=== PATIENT | female | born 1945 | race Caucasian/White ===

== ENCOUNTER → 2016-10-25 | Outpatient (REF) | payer MEDICARE ==
[~2016-10-25] MED LIST: CHLO25TA3 PO; CORE25TA PO; FLUO20CA8 PO; GLIM4TAB PO; HUMA100I SC; MAG400TA PO; METF1000 PO; PRAV40TA2 PO; SPIR50TA2 PO; TRAN1TAB PO; ZANT150T PO
[2016-10-25 19:25] LABS: ALBUMIN 4.2 GM/DL (3.2-5.2); ALBUMIN/GLOBULIN RATIO 1.17 (1.00-1.93); BILIRUBIN,TOTAL 0.6 MG/DL (0.2-1.0); CALCIUM LEVEL 9.6 MG/DL (8.8-10.2); CREATININE FOR GFR 1.21 MG/DL (0.55-1.02); TOTAL PROTEIN 7.8 GM/DL (6.4-8.2)
== END ==
LOC: M LAB REF 16:30
PROVIDERS: ATTEND Family Medicine
DX: E78.4 Other hyperlipidemia (principal); E11.40 Type 2 diabetes mellitus with diabetic neuropathy, unspecified; E11.21 Type 2 diabetes mellitus with diabetic nephropathy

== ENCOUNTER → 2017-11-28 | Outpatient (REF) | payer MEDICARE ==
[2017-11-28 17:14] LABS: BASO # 0.1 10^3/uL (0.0-0.2); BASO % 0.7 % (0.0-1.0); EOS # 0.1 10^3/uL (0.0-0.50); HEMATOCRIT 37.3 % (36.0-47.0); HEMOGLOBIN 12.4 g/dl (12.0-15.5); IMMATURE GRANULOCYTE # 0.1 10^3/uL (0-0); IMMATURE GRANULOCYTE % 0.7 % (0-3.0); LYMPH # 1.7 10^3/uL (1.5-4.5); LYMPH % 23.9 % (24.0-44.0); MEAN CORPUSCULAR HGB CONC 33.2 g/dl (32.0-36.5); MEAN CORPUSCULAR VOLUME 90.1 fl (80.0-96.0); MONO # 0.5 10^3/uL (0.0-0.8); MONO % 6.9 % (0.0-5.0); NEUTROPHILS # 4.8 10^3/uL (1.8-7.7); NEUTROPHILS % 66.8 % (36.0-66.0); PLATELET COUNT, AUTOMATED 233 10^3/uL (150-450); RED BLOOD COUNT 4.14 10^6/uL (4.00-5.40); WHITE BLOOD COUNT 7.2 10^3/uL (4.0-10.0)
[2017-11-28 17:44] LABS: ALBUMIN 3.7 GM/DL (3.2-5.2); ALBUMIN/GLOBULIN RATIO 1.12 (1.00-1.93); ALKALINE PHOSPHATASE 52 U/L (45-117); ALT/SGPT 39 U/L (12-78); ANION GAP 12 MEQ/L (8-16); AST/SGOT 31 U/L (7-37); BILIRUBIN,TOTAL 0.4 MG/DL (0.2-1.0); BLOOD UREA NITROGEN 27 MG/DL (7-18); CALCIUM LEVEL 8.8 MG/DL (8.8-10.2); CARBON DIOXIDE LEVEL 23 MEQ/L (21-32); CHLORIDE LEVEL 103 MEQ/L (98-107); CHOLESTEROL LEVEL 100 MG/DL (<200); CHOLESTEROL RISK RATIO 2.857 (<5); CREATININE FOR GFR 1.18 MG/DL (0.55-1.30); GLOMERULAR FILTRATION RATE 48.2 (>39); GLUCOSE, FASTING 275 MG/DL (70-100); HDL CHOLESTEROL 35 MG/DL (>40); LDL CHOLESTEROL 25.6 MG/DL (<100); NON-HDL-C 65 MG/DL; POTASSIUM SERUM 4.4 MEQ/L (3.5-5.1); SODIUM LEVEL 138 MEQ/L (136-145); TRIGLYCERIDES LEVEL 197 MG/DL (<150)
== END ==
LOC: M LAB REF 16:32
DX: Z00.00 Encounter for general adult medical examination without abnormal findings (principal); E11.21 Type 2 diabetes mellitus with diabetic nephropathy; E11.319 Type 2 diabetes mellitus with unspecified diabetic retinopathy without macular edema; E78.4 Other hyperlipidemia; I10 Essential (primary) hypertension
CPT/HCPCS: 80053

== ENCOUNTER → 2018-03-20 | Outpatient (REF) | payer MEDICARE ==
[2018-03-20 17:02] LABS: ANION GAP 9 MEQ/L (8-16); BLOOD UREA NITROGEN 20 MG/DL (7-18); CALCIUM LEVEL 9.7 MG/DL (8.8-10.2); CARBON DIOXIDE LEVEL 29 MEQ/L (21-32); CHLORIDE LEVEL 98 MEQ/L (98-107); CREATININE FOR GFR 1.16 MG/DL (0.55-1.30); GLOMERULAR FILTRATION RATE 49.2 (>39); GLUCOSE, FASTING 242 MG/DL (70-100); SODIUM LEVEL 136 MEQ/L (136-145)
[2018-03-22 11:12] LABS: HEPATITIS C VIRUS ABY INDEX 0.1 INDEX (<0.8)
== END ==
LOC: M LAB REF 16:28
DX: I25.10 Atherosclerotic heart disease of native coronary artery without angina pectoris (principal); E11.21 Type 2 diabetes mellitus with diabetic nephropathy; E11.319 Type 2 diabetes mellitus with unspecified diabetic retinopathy without macular edema; I73.9 Peripheral vascular disease, unspecified
CPT/HCPCS: 86803

== ENCOUNTER → 2018-06-19 | Outpatient (REF) | payer MEDICARE | LOC: M LAB REF 16:41 | PROVIDERS: ATTEND Podiatrist Foot & Ankle Surgery | DX: L03.115 Cellulitis of right lower limb (principal); E11.621 Type 2 diabetes mellitus with foot ulcer ==

== ENCOUNTER 2019-06-01 10:30 | Inpatient (IN) | payer MEDICARE ==
[~2019-06-01] VITALS: Ht 157.5 cm; Wt 64.0 kg
[2019-06-01] MEDS ORDERED: INSUDET SC (10:44)
[2019-06-01] MEDS ORDERED: CEPH500C PO (10:44)
[2019-06-01] MEDS ORDERED: CLOP75TA2 PO (10:44)
[2019-06-01] MEDS ORDERED: GABA800T4 PO (10:44)
[2019-06-01] MEDS ORDERED: VICT18IN2 PO (10:44)
[2019-06-01] MEDS ORDERED: ATOR80TA59 PO (10:44)
[2019-06-01] MEDS ORDERED: ASPI81TA33 PO (10:44)
[2019-06-01] MEDS ORDERED: DULO1CAP6 PO (10:44)
--- NOTE | 2019-06-01 11:46 | REP ---
Clinical: Pain and swelling. Diabetes. Technique: AP, lateral, bilateral oblique views of the right foot. Findings: Age-related changes are appreciated along with evidence for peripheral vascular disease and soft tissue swelling overlying the fifth metatarsophalangeal joint. No subcutaneous emphysema. No obvious osseous involvement. No acute fracture or dislocation. Impression: Age-related degenerative changes and soft tissue swelling. Electronically Signed by Partha Palacios MD 06/01/2019 11:37 A
--- NOTE | 2019-06-01 12:09 | REP ---
Clinical: Right lower extremity pain and swelling . Technique: Zamora scale and color Doppler evaluation of the right lower extremity using linear high frequency transducer. Findings: Ultrasound examination of the right lower extremity deep venous structures from the common femoral vein to the popliteal vein demonstrates normal compressibility flow and wave patterns in response to respiration and augmentation. There is no evidence for deep venous thrombosis. Impression: No evidence for deep venous thrombosis. Electronically Signed by Partha Palacios MD 06/01/2019 12:00 P
[2019-06-01] MEDS ORDERED: METF10004 PO (12:13)
[2019-06-01] MEDS ORDERED: TRAN1TAB47 PO (12:13)
[2019-06-01] MEDS ORDERED: SPIR50TA4 PO (12:13)
[2019-06-01] MEDS ORDERED: CARV25TA PO (12:13)
[2019-06-01] MEDS ORDERED: ACETAMINOPHEN TAB 650MG DOSE (2X325MG) PO ONE (12:30)
[2019-06-01 12:35] LABS: BASO % 0.2 % (0.0-1.0); HEMATOCRIT 28.1 % (36.0-47.0); HEMOGLOBIN 8.7 g/dl (12.0-15.5); LYMPH # 1.2 10^3/uL (1.5-5.0); LYMPH % 6.4 % (24.0-44.0); MEAN CORPUSCULAR HEMOGLOBIN 28.7 pg (27.0-33.0); MEAN CORPUSCULAR VOLUME 92.7 fl (80.0-96.0); MONO # 1.5 10^3/uL (0.0-0.8); MONO % 7.7 % (0.0-5.0); NEUTROPHILS % 84.7 % (36.0-66.0); PLATELET COUNT, AUTOMATED 230 10^3/uL (150-450); RED BLOOD COUNT 3.03 10^6/uL (4.00-5.40); WHITE BLOOD COUNT 18.8 10^3/uL (4.0-10.0)
[2019-06-01 12:53] LABS: ERYTHROCYTE SEDIMENTATION RATE 64 mm/hr (0-30)
[2019-06-01 13:02] LABS: C REACTIVE PROTEIN QUANTITATIV 10.4 MG/DL (0.00-0.30); CALCIUM LEVEL 8.8 MG/DL (8.8-10.2); CREATININE FOR GFR 1.24 MG/DL (0.55-1.30); GLOMERULAR FILTRATION RATE 45.4 (>39); POTASSIUM SERUM 4.6 MEQ/L (3.5-5.1)
[2019-06-01] MEDS ORDERED: VANCOMYCIN HCL 1,250 MG in D5W 250 ML IV ONE (13:15)
[2019-06-01] MEDS ORDERED: DEXTROSE 50% 50 ML SYRINGE IV PRN ×2 (13:30→17:45)
[2019-06-01] MEDS ORDERED: GLUCOSE 4 GM CHEW TABLET PO PRN ×2 (13:30→17:45)
[2019-06-01] MEDS ORDERED: GLUCAGON FOR INJ 1 MG VIAL (J1610) SC PRN ×2 (13:30→17:45)
[2019-06-01] MEDS ORDERED: VANCOMYCIN HCL 750 MG, VIAL MATE ADAPTER 1 EACH in D5W 250 ML IV ONE ×2 (14:15→19:00)
[2019-06-01] MEDS ORDERED: VANCOMYCIN HCL 500 MG in D5W MINI-BAG PLUS 100 ML IV ONE ×2 (14:15→18:00)
[2019-06-01 14:16] LABS: HEMOGLOBIN A1c 6.1 %
[2019-06-01 16:25] VITALS: BP 129/65
--- NOTE | 2019-06-01 16:45 | REPVR ---
PROCEDURE INFORMATION: Exam: MR Right Lower Extremity Other Than Joint Without Contrast; Foot Exam date and time: 06/01/2019 4:18 PM Age: 73 years old Clinical indication: Difficulty in walking and edema and other: Ulcer hematoma to lateral distal foot/ 5th toe; Yes, it is localized; Additional info: Rle diabetic ulcer TECHNIQUE: Imaging protocol: MR of the Right lower extremity without contrast. Exam focused on the foot. COMPARISON: CR Foot, complete 06/01/2019 11:26 AM FINDINGS: The examination is somewhat limited by motion degradation and the lack of intravenous contrast. There is diffuse soft tissue swelling and subcutaneous edema with overlying skin thickening, compatible with cellulitis/myositis. There is a soft tissue ulceration along the lateral plantar surface of the 5th metatarsal head with a small amount of subjacent loculated fluid and phlegmonous change. No convincing organized fluid collection is identified to suggest abscess at this time. There is no soft tissue mass. There is mild thickening of the middle band of the plantar fascia in association with a small plantar calcaneal spur. No acute tendon or ligament injury is identified. There is subtle bone marrow edema in the fifth metatarsal head and proximal phalangeal base, which is predominantly evident on the fluid sensitive sequences and is therefore likely reactive. No convincing associated T1 hypointensity is appreciated at this time. Mild degenerative changes are noted. There is a small amount of loculated fluid in the tibiotalar and posterior subtalar joints. There are no erosive or destructive changes. No lytic or blastic lesion is seen. There is no significant effusion. IMPRESSION: 1. Limited noncontrast examination. 2. Cellulitis/myositis with a soft tissue ulceration along the lateral plantar surface of the 5th metatarsal head. 3. Probable reactive bone marrow edema in the 5th metatarsal head and proximal phalangeal base without convincing MR evidence of acute osteomyelitis at this time. Continued clinical and imaging surveillance is recommended. 4. Additional findings, as above. Electronically signed by: Marshal Hays On 06/01/2019 16:45:20 PM
[2019-06-01] MEDS ORDERED: NS 1,000 ML IV ONE (17:00)
[2019-06-01] MEDS ORDERED: PERCOCET 5MG/325MG TAB PO PRN (17:15)
[2019-06-01] MEDS ORDERED: MORPHINE 2 MG/ML 1ML VIAL (J2270) IV PRN (17:15)
[2019-06-01] MEDS ORDERED: MORPHINE 2 MG/ML 1ML VIAL (J2270) IV ONE (17:45)
[2019-06-01] MEDS: PIPERACILLIN/TAZOBACTAM SOD 3.375 GM in D5W MINI-BAG PLUS 50 ML IV SCH (18:10)
[2019-06-01] MEDS: HumaLOG INSULIN (NovoLOG) PER UNIT SC SCH ×2 (18:13→21:00)
--- NOTE | 2019-06-01 18:25 | CR ---
DATE OF CONSULTATION: 06/01/2019 REASON FOR CONSULTATION: Right foot infection. Dulce Gonsales is a pleasant 73-year-old female who presented to the emergency room with worsening infection to her right foot. She noticed this infection first on 05/30/2019. She had been seeing me for chronic ulceration on this site previously. She was seen at Urgent Care on Sunday and was given Keflex, which she took three doses of. She woke up earlier today and noted worsening redness with redness streaking up her leg. She went to the emergency room for further evaluation. PAST MEDICAL HISTORY: Significant for: 1. Diabetes with neuropathy. 2. Chronic kidney disease. 3. Hypertension. 4. Coronary artery disease with stenting. 5. Hyperlipidemia. 6. Anxiety. 7. Acid reflux. ALLERGIES: None. PAST SURGICAL HISTORY: Includes: 1. Stenting right lower extremity. 2. Cataracts. 3. Colonoscopies. 4. Cardiac catheterization. 5. Femoral popliteal bypass. SOCIAL HISTORY: Former smoker. Denies alcohol use. REVIEW OF SYSTEMS: Negative for nausea, vomiting, fever or chills. VITAL SIGNS: Are reviewed. Maximum temperature (T-max) is 99.3. LABORATORIES: Are reviewed. White blood cell count is 18.8. Erythrocyte sedimentation rate is 64. CRP is 10.4. Lactic acid is 21. Hemoglobin A1c is 6.1. LOWER EXTREMITY IMAGING STUDIES: Foot x-ray shows soft tissue swelling over the fifth metatarsal. No obvious bony erosion or soft tissue emphysema. Foot MRI shows soft tissue ulceration with edema around the fifth metatarsal head. No obvious fluid organization or obvious size of osteomyelitis. LOWER EXTREMITY EXAMINATION: On the right foot there is erythema and edema extending from the lateral fifth metatarsal head with some necrotic tissue. ASSESSMENT: A 73-year-old diabetic female with soft tissue ulcer and cellulitis. PLAN: Patient has been started on empiric antibiotics. Wound debridement was performed using #15 blade, excising necrotic soft tissue, including skin and subcutaneous tissue. A wound culture was taken. Start dressing changes, Hydrofera Blue and Optifoam, change daily. Will monitor.
--- NOTE | 2019-06-01 19:47 | HPE ---
DATE OF ADMISSION: 06/01/2019 CHIEF COMPLAINT: Right foot pain. HISTORY OF PRESENT ILLNESS: This is a 73-year-old female who presented to the emergency room with a 3-day history of pain, swelling, redness at the ulcer site on the right foot in the plantar aspect since Sunday. She initially noticed that the area was looking red and painful and then she noticed bluish discoloration on the lateral aspect of the ulcer, which then progressed on with more erythema throughout the dorsum of the foot. The patient complained of some chills without documented fever. She was seen at the urgent care in [place] and was given an antibiotic, which she says starts with the letter "C." Despite taking this for 2 days, the patient has had no improvement, which prompted her to come to the emergency room. She was unable to ambulate and bear weight on the right foot, has been using her walker. According to medical records, the patient was given Keflex 500 mg twice a day. She has completed 2 days of this. No fever. No purulent or serous drainage. The patient was seen by Dr. Wilde, human anatomy teacher, after Mame, about a month ago, status post debridement. She was due to see vascular surgery to do an ultrasound of the right leg for peripheral arterial disease evaluation with Dr. Guzman on 06/04/2019. The patient has continued all of her home medications. She has not taken any medications for pain, as she was instructed not to take any nonsteroidal antiinflammatory drugs (NSAIDS) in light of her chronic aspirin and Plavix given for stents that were placed on at [facility]. She has a total of nine coronary stents. In the emergency room, she was found to have a white count of 18.8, afebrile at 99.3, sed rate was 64, lactic acid of 2.1 and C-reactive protein of 10.4. Dr. Wilde was called by the emergency room, who recommended MRI of the foot, as well as intravenous vancomycin to be started. The hospitalist was called to admit for diabetic foot ulcer, most likely an arterial ulcer, for further management. PAST MEDICAL HISTORY: 1. Coronary artery disease, status post nine stents placed at [facility], last one was done on and the day after New Year's day. 2. Diabetes with chronic nephropathy. 3. Chronic kidney disease stage III. 4. Diabetic neuropathy. 5. Hypertension. 6. Hyperlipidemia. 7. Anxiety. 8. Chronic foot ulcer. 9. Reflux disease. 10. Peripheral arterial disease. ALLERGIES: No known drug allergies. PAST SURGICAL HISTORY: 1. BTL in 1975, LSO in 1980. 2. Coronary stent in April 2019, nine stents placed at [facility]. 3. Breast biopsy negative in 2009. The patient denies any stent to the right leg in 2007 and says that she had angioplasty and no stent was placed in the leg. 4. Cataract surgery in 2013. 5. Fem-pop bypass. FAMILY HISTORY: Mother at age 52 with diabetes, coronary artery disease. Brother at age 46. Brother with myocardial infarction at age 52. Father at age 59 with coronary artery disease and myocardial infarction. SOCIAL HISTORY: Retired [employer]. She lives alone. Daughter lives next door. Everything is on one floor. One step to get into the home. Denies any smoking currently, alcohol or recreational drug use. REVIEW OF SYSTEMS: The patient denies any fever. She did have some chills. No weight gain or weight loss. No nausea or vomiting. No diarrhea. No abdominal pain. No bright red blood per rectum, melena, black tarry stools or history of duodenal ulcers. She has a history of coronary artery disease but denies chest pain, pressure, tightness, paroxysmal nocturnal dyspnea, orthopnea, three pillow orthopnea. The patient denies dysuria, urgency, frequency. No changes in weight or appetite. No changes in vision. THe patient has had cataract surgery in the past. No ear discharge, tinnitus or vertigo. No ear pain. The patient has had increasing difficulty ambulating due to pain in the right foot. Otherwise, no weakness or paresthesias. She has chronic neuropathy in bilateral lower extremities. No anxiety or depression. Denies polydipsia or polyuria. Has a history of diabetes, glucose has been about 150s at home. All other review of systems negative, 10-point system has been negative aside from positive findings in history of present illness. PHYSICAL EXAMINATION: VITAL SIGNS: Temperature 99.3, pulse 87, respiratory rate 20, blood pressure 109/55, 98% on room air. GENERAL: The patient is awake, alert, oriented times three. Answering questions appropriately. No use of respiratory accessory muscles. Face is symmetric. Tongue is midline. NECK: Supple with full range of motion. No cervical lymphadenopathy or thyromegaly. LUNGS: Clear to auscultation. No wheezing, rales or rhonchi. HEART: S1, S2. Sinus rhythm. ABDOMEN: Soft, nontender, nondistended. Positive bowel sounds times four quadrants. EXTREMITIES: No cyanosis or clubbing. THe patient does have erythema along the lateral aspect of the dorsal foot. There is a 2 cm wide ulcer noted in the plantar aspect under the fifth toe. She has some tenderness and swelling into the mid foot, erythema and painful to touch. She does have palpable pulses, dorsalis pedis and posterior tibialis bilaterally. LABORATORY DATA: White count 18.8, hemoglobin 8.7, hematocrit 28.1, platelet count 230. Sodium 132, potassium 4.6, chloride 99, bicarbonate 26, BUN 26, creatinine 1.24, glucose 223, A1/c of 6.1, lactic acid of 2.1, C-reactive protein of 10.4. Blood culture pending. Foot MRI on 06/01/2019, limited, noncontrast. Cellulitis, myositis with soft tissue ulceration along the lateral plantar surface of the fifth metatarsal head, probable reactive bone marrow edema in the fifth metatarsal head and proximal phalangeal base without convincing evidence of acute osteomyelitis at this time. Vascular ultrasound on 06/01/2019 showed no evidence of deep vein thrombosis (DVT). X-ray of the right foot showed age related degenerative changes and soft tissue swelling. ASSESSMENT AND PLAN: This is a 73-year-old female, diabetic with chronic kidney disease stage III, neuropathy, nephropathy, hypertension, coronary artery disease with nine coronary stents placed in April and on chronic aspirin and Plavix, hyperlipidemia, anxiety, reflux, chronic diabetic foot ulcer, presents with worsening pain for the past 3 days, erythema, difficulty ambulating. The patient is admitted for cellulitis, rule out osteomyelitis. IMPRESSION: 1. Right fifth metatarsal head plantar ulcer with small amount of loculation and fremitus. No convincing evidence of abscess or osteomyelitis. No obvious drainage. The patient has been given vancomycin for gram-negative infection, also given Zosyn, deescalate antibiotics accordingly. White count is 18,000, supportive care for now with 1 liter of intravenous fluid due to significant lactic acidosis. Affected extremity to be elevated and Dr. Majak of podiatry for evaluation and possible debridement. 2. Peripheral arterial disease. The patient has been referred to Dr. Guzman as an outpatient. She may be consulted during this admission to check for circulation in order to improve circulation to lower extremity for better healing. The patient was due to have an ultrasound done of the right lower extremity on 06/04/2019. 3. Type 2 diabetes. She may be resumed on consistent carbohydrate diet. She may be resumed on her home dose of Levemir, sliding scale per protocol before food and nightly per [facility] protocol. A1/c is adequate at 6.1, the patient appears to be well controlled. 4. Hypertension. She may be resumed on her home dose of Coreg. 5. History of coronary artery disease, recent stent in April 2019 with nine coronary stents placed. She needs to be continued on Plavix 75 mg daily. We will continue on aspirin as well for now and atorvastatin. 6. Hyperlipidemia. Continue on Lipitor. 7. Reflux disease. 8. Deep vein thrombosis (DVT) prophylaxis. The patient may be given compression stockings. MTDD
[2019-06-01] MEDS ORDERED: SPIRONOLACTONE 50 MG TAB PO SCH (21:00)
[2019-06-01] MEDS ORDERED: CEFTAROLINE FOSAMIL 400 MG in D5W MINI-BAG PLUS 50 ML IV SCH (21:00)
[2019-06-01] MEDS: GABAPENTIN 400 MG CAP PO SCH (21:30)
[2019-06-01] MEDS: ATORVASTATIN 20 MG TAB PO SCH (21:30)
[2019-06-01] MEDS: LEVEMIR (INSULIN DETEMIR) 1 UNITS/0.01ML SC SCH (21:31)
[2019-06-01] MEDS: CARVedilol 12.5 MG TAB PO SCH (21:32)
[2019-06-01 22:00] VITALS: BP 138/63
[2019-06-01] MEDS: ACETAMINOPHEN TAB 650MG DOSE (2X325MG) PO PRN (23:29)
[2019-06-02] MEDS: PIPERACILLIN/TAZOBACTAM SOD 3.375 GM in D5W MINI-BAG PLUS 50 ML IV SCH ×3 (00:30→18:29)
[2019-06-02 06:00] VITALS: BP 124/58
[2019-06-02 06:17] LABS: BASO % 0.2 % (0.0-1.0); EOS # 0.1 10^3/uL (0.0-0.5); EOS % 0.7 % (0.0-3.0); HEMATOCRIT 24.9 % (36.0-47.0); HEMOGLOBIN 7.6 g/dl (12.0-15.5); LYMPH # 1.7 10^3/uL (1.5-5.0); LYMPH % 12.9 % (24.0-44.0); MEAN CORPUSCULAR HEMOGLOBIN 27.9 pg (27.0-33.0); MEAN CORPUSCULAR HGB CONC 30.5 g/dl (32.0-36.5); MEAN CORPUSCULAR VOLUME 91.5 fl (80.0-96.0); MONO # 1.1 10^3/uL (0.0-0.8); MONO % 8.9 % (0.0-5.0); NEUTROPHILS # 9.8 10^3/uL (1.5-8.5); NEUTROPHILS % 76.7 % (36.0-66.0); PLATELET COUNT, AUTOMATED 195 10^3/uL (150-450); RED BLOOD COUNT 2.72 10^6/uL (4.00-5.40); WHITE BLOOD COUNT 12.8 10^3/uL (4.0-10.0)
[2019-06-02 06:34] LABS: CALCIUM LEVEL 8.4 MG/DL (8.8-10.2); CREATININE FOR GFR 1.14 MG/DL (0.55-1.30); POTASSIUM SERUM 3.5 MEQ/L (3.5-5.1)
[2019-06-02] MEDS ORDERED: CLOPIDOGREL 75 MG TAB PO SCH (09:00)
[2019-06-02] MEDS ORDERED: PREVNAR 13 VACCINE SYRINGE (CPT CODE:90670) IM ONE (09:00)
[2019-06-02] MEDS ORDERED: ASPIRIN 81 MG ENTERIC TAB PO SCH (09:00)
[2019-06-02] MEDS ORDERED: trandolapriL 1 MG TAB PO SCH (09:00)
[2019-06-02] MEDS: HumaLOG INSULIN (NovoLOG) PER UNIT SC SCH ×4 (09:12→22:32)
[2019-06-02] MEDS: DULoxetine 30 MG CAP (CYMBALTA) PO SCH (09:13)
[2019-06-02] MEDS: ASPIRIN 81 MG ENTERIC TAB PO SCH (09:14)
[2019-06-02] MEDS: CLOPIDOGREL 75 MG TAB PO SCH (09:15)
[2019-06-02] MEDS: CARVedilol 12.5 MG TAB PO SCH ×2 (09:16→23:22)
--- NOTE | 2019-06-02 09:20 | IPNPDOC ---
Subjective Date Seen The patient was seen on 06/02/19. Subjective Chief Complaint/HPI Pt this morning reports less pain in her right foot, she thinks the swelling is slightly better as well. She has no new concerns this morning. General: Denies: Fatigue Constitutional: Reports: Fever; Denies: Chills ENT: Denies: Head Aches Pulmonary: Denies: Dyspnea, Cough Cardiovascular: Denies: Chest Pain, Palpitations Gastrointestinal: Denies: Nausea, Vomiting, Abdominal Pain, Diarrhea Musculoskeletal: Denies: Neck Pain Neurological: Denies: Weakness Psych: Reports: Mood Normal Objective Physical Examination General Exam: Positive: Alert, No Acute Distress Eye Exam: Positive: Conjunctiva & lids normal ENT Exam: Positive: Mucous membr. moist/pink Chest Exam: Positive: Clear to auscultation, Normal air movement Heart Exam: Positive: Rate Normal, Normal S1, Normal S2 Abdomen Exam: Positive: Normal bowel sounds, Soft; Negative: Tenderness Skin Exam: Positive: Other skin issue (swelling erythema and eccymosis of the right foot with bloody drainage on R lateral foot bandage. + swelling) Neuro Exam: Positive: Normal Speech Psych Exam: Positive: Mood NL Assessment /Plan Problems (1) CAD (coronary artery disease) Permanent Comment: - NSTEMI [id number] PCI - LAN x4 [id number] RCA; PTCA posterolateral branch of RCA, [id number] - LAN [id number] LAD [id number] - LAN mid RCA 04/24/2019 - LAN x2 dista RCA [id number]; tesidual distal 60% stenosis postintervention - Hossein atuioventflcular bianch; 60% residual stenosis Last Edited By: Kiko Richey MD on Jun 02, 2019 16:58 Status: Chronic Response to Treatment: Stable Problem Specific Plan: Monitor Clinically Problem Text: 04/24/2019 sp NQWMI and 9!!! LAN to RCA, LCA; therefore, hesitant to hold asa/clopid and no ho melana/hematechezia/dyspepsia (2) Anemia Status: Acute Problem Text: 06/02 7.6-on asa/clopid held, no DVT AC; given stable MCV concerning for acute loss and given CAD, tx 1u PRBC; change H2B to PPI BID (ho CIPRIANO, but none in last ~6-8W)-states "fatigued" since on asa/clopid c SBP 95-105 06/01 8.7, MCV 93 04/22/19 11.9 11/28/17 hgb 12.4, 90 06/2014 [id number], 5 mm cecal polyp (3) Diabetic foot ulcer associated with type 2 diabetes mellitus Status: Acute Response to Treatment: Stable Discussed With: Nurse, Patient Problem Specific Plan: Monitor Clinically, Repeat Labs Problem Text: D2 Vanco/Zosyn, await wound culture results. Pod will cont to follow. Tmax 100.4 overnight, [place] [id number] [place] [id number] 06/01 BCX2 NG 06/01 WCX P 06/19/18 R foot WCX heavy MSSA 06/01 MRI: 1. Limited noncontrast examination. 2. Cellulitis/myositis with a soft tissue ulceration along the lateral plantar surface of the 5th metatarsal head. 3. Probable reactive bone marrow edema in the 5th metatarsal head and proximal phalangeal base without convincing MR evidence of acute osteomyelitis at this time. Continued clinical and imaging surveillance is recommended. 4. Additional findings, as above. (4) Hypertension Status: Chronic Response to Treatment: Stable Problem Specific Plan: Monitor Clinically Problem Text: HD: carve 12.5 BID, trandol 1 qAM, melisa 50 QHS 06/02 SBP 100 c decreasing hgb; held melisa, trandol (5) DM2 (diabetes mellitus, type 2) Status: Chronic Response to Treatment: Stable Problem Specific Plan: Monitor Clinically Problem Text: A1c 6.1% checked on admission, Cont with long acting 70 units, SSI. Plan/VTE VTE Prophylaxis Ordered?: Yes VS, I&O, 24H, Fishbone Vital Signs/I&O Vital Signs Date Time Temp Pulse Resp B/P (MAP) Pulse Ox O2 Delivery O2 Flow Rate FiO2 06/02/19 06:00 98.0 87 16 124/58 (80) 93 Room Air I&O- Last 24 Hours up to 6 AM 06/02/19 06:00 Intake Total 1350 ml Output Total 0 ml Balance 1350 ml Laboratory Data 24H LABS Laboratory Tests 2 06/01/19 11:19: Immature Granulocyte % (Auto) 1.0, Neutrophils (%) (Auto) 84.7H, Lymphocytes (%) (Auto) 6.4L, Monocytes (%) (Auto) 7.7H, Eosinophils (%) (Auto) 0.0, Basophils (%) (Auto) 0.2, Neutrophils # (Auto) 16.0H, Lymphocytes # (Auto) 1.2L, Monocytes # (Auto) 1.5H, Eosinophils # (Auto) 0.0, Basophils # (Auto) 0.0, Nucleated Red Blood Cells % (auto) 0.0, Erythrocyte Sedimentation Rate 64H, Anion Gap 8, Glomerular Filtration Rate 45.4, Calcium Level 8.8, C-Reactive Protein, Quantitative 10.40H 06/01/19 13:43: Estimated Mean Plasma Glucose 128H, Hemoglobin A1c 6.1, Lactic Acid Level 2.1*H 06/01/19 16:58: Bedside Glucose (Misc Panel) 140H 06/01/19 17:06: Methicillin-Resist S.aureus DNA PCR NOT DETECTED 06/01/19 18:21: Lactic Acid Followup at 4 Hours 1.9 06/01/19 20:36: Bedside Glucose (Misc Panel) 214H 06/02/19 05:55: Immature Granulocyte % (Auto) 0.6, Neutrophils (%) (Auto) 76.7H, Lymphocytes (%) (Auto) 12.9L, Monocytes (%) (Auto) 8.9H, Eosinophils (%) (Auto) 0.7, Basophils (%) (Auto) 0.2, Neutrophils # (Auto) 9.8H, Lymphocytes # (Auto) 1.7, Monocytes # (Auto) 1.1H, Eosinophils # (Auto) 0.1, Basophils # (Auto) 0.0, Nucleated Red Blood Cells % (auto) 0.0, Anion Gap 7L, Glomerular Filtration Rate 50.0, Calcium Level 8.4L CBC/BMP Laboratory Tests 06/01/19 11:19 06/02/19 05:55 Microbiology Microbiology 06/01/19 Gram Stain, Received Pending 06/01/19 Wound Culture, Received Pending 06/01/19 Blood Culture, Received Pending 06/01/19 Blood Culture, Received Pending SHAMA ZAIDI PA-C Jun 02, 2019 09:20 Kiko Richey M.D. Jun 02, 2019 16:29
[2019-06-02] MEDS: VANCOMYCIN HCL 1,000 MG, VIAL MATE ADAPTER 1 EACH in D5W 250 ML IV SCH (10:45)
--- NOTE | 2019-06-02 11:58 | IPN ---
DATE: 06/02/2019 Seen and examined. Denies overnight complaints other than fever. States that was quickly reduced with Tylenol. Vitals are reviewed. Maximum temperature (Tmax) listed as 100.4. Labs were reviewed. White cell count is improved 12.8. Culture results are pending. Lower Extremity Examination: Erythema and edema are somewhat improved. Wound is inspected. There is trace purulence. No significant necrosis to the wound. ASSESSMENT: 73-year-old, diabetic female with right foot diabetic ulceration and cellulitis. PLAN: Vashe dressing changes. Await culture results. Continue empiric antibiotics. Will follow.
[2019-06-02 14:00] VITALS: BP 120/65
[2019-06-02] MEDS: NS 1,000 ML IV SCH (16:50)
[2019-06-02 17:15] LABS: BASO % 0.2 % (0.0-1.0); EOS # 0.1 10^3/uL (0.0-0.5); EOS % 0.4 % (0.0-3.0); HEMATOCRIT 25.3 % (36.0-47.0); HEMOGLOBIN 7.9 g/dl (12.0-15.5); LYMPH # 1.1 10^3/uL (1.5-5.0); LYMPH % 8.7 % (24.0-44.0); MEAN CORPUSCULAR HEMOGLOBIN 28.5 pg (27.0-33.0); MEAN CORPUSCULAR HGB CONC 31.2 g/dl (32.0-36.5); MEAN CORPUSCULAR VOLUME 91.3 fl (80.0-96.0); MONO # 0.9 10^3/uL (0.0-0.8); MONO % 6.8 % (0.0-5.0); NEUTROPHILS # 10.6 10^3/uL (1.5-8.5); NEUTROPHILS % 83.3 % (36.0-66.0); PLATELET COUNT, AUTOMATED 211 10^3/uL (150-450); RED BLOOD COUNT 2.77 10^6/uL (4.00-5.40); WHITE BLOOD COUNT 12.7 10^3/uL (4.0-10.0)
[2019-06-02 17:40] LABS: PERCENT SATURATION 6.9 % (13.2-45.0)
[2019-06-02 22:00] VITALS: BP 110/56
[2019-06-02] MEDS: PANTOPRAZOLE 40MG TAB (PROTONIX) PO SCH (22:16)
[2019-06-02] MEDS: ATORVASTATIN 20 MG TAB PO SCH (22:16)
[2019-06-02] MEDS: GABAPENTIN 400 MG CAP PO SCH (22:16)
[2019-06-02] MEDS: ACETAMINOPHEN TAB 650MG DOSE (2X325MG) PO PRN (22:17)
[2019-06-02] MEDS: LEVEMIR (INSULIN DETEMIR) 1 UNITS/0.01ML SC SCH (22:32)
[2019-06-02 23:54] VITALS: BP 136/53
[2019-06-03] VITALS (10 sets, daily range): BP systolic 112–179; BP diastolic 49–70
[2019-06-03] MEDS: VANCOMYCIN HCL 1,000 MG, VIAL MATE ADAPTER 1 EACH in D5W 250 ML IV SCH (03:29)
[2019-06-03] MEDS: PIPERACILLIN/TAZOBACTAM SOD 3.375 GM in D5W MINI-BAG PLUS 50 ML IV SCH ×2 (04:52→09:45)
[2019-06-03 06:02] LABS: BASO % 0.4 % (0.0-1.0); EOS # 0.2 10^3/uL (0.0-0.5); EOS % 1.4 % (0.0-3.0); HEMATOCRIT 27.8 % (36.0-47.0); LYMPH # 1.8 10^3/uL (1.5-5.0); LYMPH % 16.3 % (24.0-44.0); MEAN CORPUSCULAR HEMOGLOBIN 28.7 pg (27.0-33.0); MEAN CORPUSCULAR HGB CONC 32.4 g/dl (32.0-36.5); MEAN CORPUSCULAR VOLUME 88.5 fl (80.0-96.0); MONO # 0.8 10^3/uL (0.0-0.8); MONO % 7.4 % (0.0-5.0); NEUTROPHILS % 73.9 % (36.0-66.0); PLATELET COUNT, AUTOMATED 194 10^3/uL (150-450); RED BLOOD COUNT 3.14 10^6/uL (4.00-5.40); WHITE BLOOD COUNT 10.9 10^3/uL (4.0-10.0)
[2019-06-03 06:17] LABS: BLOOD UREA NITROGEN 14 MG/DL (7-18); CALCIUM LEVEL 8.4 MG/DL (8.8-10.2); CARBON DIOXIDE LEVEL 24 MEQ/L (21-32); CHLORIDE LEVEL 105 MEQ/L (98-107); CREATININE FOR GFR 0.93 MG/DL (0.55-1.30); GLOMERULAR FILTRATION RATE > 60.0 (>39); GLUCOSE, FASTING 191 MG/DL (70-100); POTASSIUM SERUM 3.5 MEQ/L (3.5-5.1); SODIUM LEVEL 138 MEQ/L (136-145)
[2019-06-03] MEDS: CARVedilol 12.5 MG TAB PO SCH ×2 (09:45→21:48)
[2019-06-03] MEDS: PANTOPRAZOLE 40MG TAB (PROTONIX) PO SCH ×2 (09:45→21:47)
[2019-06-03] MEDS: CLOPIDOGREL 75 MG TAB PO SCH (09:45)
[2019-06-03] MEDS: DULoxetine 30 MG CAP (CYMBALTA) PO SCH (09:45)
[2019-06-03] MEDS: ASPIRIN 81 MG ENTERIC TAB PO SCH (09:46)
[2019-06-03] MEDS: HumaLOG INSULIN (NovoLOG) PER UNIT SC SCH ×4 (10:00→21:46)
--- NOTE | 2019-06-03 10:43 | IPNPDOC ---
Subjective Date Seen The patient was seen on 06/03/19. Subjective Chief Complaint/HPI Pt this morning without new concerns. Her daughter is at bedside, they fell there is a lot less swelling in her R foot. She denies signs or symptoms of bleeding. General: Denies: Fatigue Constitutional: Denies: Chills, Fever Pulmonary: Denies: Dyspnea, Cough Cardiovascular: Denies: Chest Pain, Palpitations Gastrointestinal: Denies: Nausea, Vomiting Neurological: Reports: Weakness Psych: Reports: Mood Normal Objective Physical Examination General Exam: Positive: Alert, No Acute Distress Eye Exam: Positive: Conjunctiva & lids normal ENT Exam: Positive: Mucous membr. moist/pink Chest Exam: Positive: Clear to auscultation, Normal air movement Heart Exam: Positive: Rate Normal, Normal S1, Normal S2 Abdomen Exam: Positive: Normal bowel sounds, Soft; Negative: Tenderness Skin Exam: Positive: Other skin issue (swelling erythema and eccymosis of the right foot with bloody drainage on R lateral foot bandage. + swelling, improved c/w yesterday) Neuro Exam: Positive: Normal Speech Psych Exam: Positive: Mood NL Assessment /Plan Problems (1) Diabetic foot ulcer associated with type 2 diabetes mellitus Status: Acute Response to Treatment: Stable Discussed With: Nurse, Patient Problem Specific Plan: Monitor Clinically, Repeat Labs Problem Text: 06/03 - DC Zosyn/Vanco, change to IV Doxy, likely can start PO tomorrow, WBC cont to improve, CRP increase slightly, will repeat tomorrow. 06/02 D2 Vanco/Zosyn, await wound culture results. Pod will cont to follow. Tmax 100.4 overnight, [place] [address] [place] [address] 06/01 BCX2 NG 06/01 WCX P 06/19/18 R foot WCX heavy MSSA 06/01 MRI: 1. Limited noncontrast examination. 2. Cellulitis/myositis with a soft tissue ulceration along the lateral plantar surface of the 5th metatarsal head. 3. Probable reactive bone marrow edema in the 5th metatarsal head and proximal phalangeal base without convincing MR evidence of acute osteomyelitis at this time. Continued clinical and imaging surveillance is recommended. 4. Additional findings, as above. (2) CAD (coronary artery disease) Permanent Comment: - NSTEMI [id number] PCI - LAN x4 [id number] RCA; PTCA posterolateral branch of RCA, [id number] - LAN [id number] LAD [id number] - LAN mid RCA 04/24/2019 - LAN x2 dista RCA [id number]; tesidual distal 60% stenosis postintervention - Hossein atuioventflcular bianch; 60% residual stenosis Last Edited By: Kiko Richey MD on Jun 02, 2019 16:58 Status: Chronic Response to Treatment: Stable Problem Specific Plan: Monitor Clinically Problem Text: 04/24/2019 sp NQWMI and 9!!! LAN to RCA, LCA; therefore, hesitant to hold asa/clopid and no ho melana/hematechezia/dyspepsia (3) Anemia Status: Acute Problem Text: 06/03 Hgb 9.0 after 2 units pRBCs yesterday, monitor, OB ordered. Cont with BID PPI. 06/02 7.6-on asa/clopid held, no DVT AC; given stable MCV concerning for acute loss and given CAD, tx 1u PRBC; change H2B to PPI BID (ho CIPRIANO, but none in last ~6-8W)-states "fatigued" since on asa/clopid c SBP 95-105 06/01 8.7, MCV 93 04/22/19 11.9 11/28/17 hgb 12.4, 90 06/2014 myzof-Fxiqvvz-fcupi, 5 mm cecal polyp (4) Hypertension Status: Chronic Response to Treatment: Stable Problem Specific Plan: Monitor Clinically Problem Text: HD: carve 12.5 BID, trandol 1 qAM, melisa 50 QHS 06/02 SBP 100 c decreasing hgb; held melisa, trandol (5) DM2 (diabetes mellitus, type 2) Status: Chronic Response to Treatment: Stable Problem Specific Plan: Monitor Clinically Problem Text: A1c 6.1% checked on admission, Cont with long acting 70 units, SSI. Plan/VTE VTE Prophylaxis Ordered?: Yes VS, I&O, 24H, Fishbone Vital Signs/I&O Vital Signs Date Time Temp Pulse Resp B/P (MAP) Pulse Ox O2 Delivery O2 Flow Rate FiO2 06/03/19 09:45 112/49 06/03/19 06:00 97.6 72 18 96 Room Air I&O- Last 24 Hours up to 6 AM 06/03/19 06:00 Intake Total 1941 ml Output Total 4225 ml Balance -2284 ml Laboratory Data 24H LABS Laboratory Tests 2 06/02/19 12:13: Bedside Glucose (Misc Panel) 308H 06/02/19 16:50: Bedside Glucose (Misc Panel) 246H 06/02/19 17:00: Immature Granulocyte % (Auto) 0.6, Neutrophils (%) (Auto) 83.3H, Lymphocytes (%) (Auto) 8.7L, Monocytes (%) (Auto) 6.8H, Eosinophils (%) (Auto) 0.4, Basophils (%) (Auto) 0.2, Neutrophils # (Auto) 10.6H, Lymphocytes # (Auto) 1.1L, Monocytes # (Auto) 0.9H, Eosinophils # (Auto) 0.1, Basophils # (Auto) 0.0, Reticulocyte # (auto) 57.1, Nucleated Red Blood Cells % (auto) 0.0, Percent Reticulocyte Count 2.1H, Reticulocyte Hemoglobin Equivalent 27.4, Iron Level 18L, Total Iron Binding Capacity 262, Transferrin % Saturation 6.9L, Vitamin B12 Level 277, Thyroid Stimulating Hormone (TSH) 2.070 06/02/19 21:00: Bedside Glucose (Misc Panel) 290H 06/03/19 05:37: Immature Granulocyte % (Auto) 0.6, Neutrophils (%) (Auto) 73.9H, Lymphocytes (%) (Auto) 16.3L, Monocytes (%) (Auto) 7.4H, Eosinophils (%) (Auto) 1.4, Basophils (%) (Auto) 0.4, Neutrophils # (Auto) 8.0, Lymphocytes # (Auto) 1.8, Monocytes # (Auto) 0.8, Eosinophils # (Auto) 0.2, Basophils # (Auto) 0.0, Nucleated Red Blood Cells % (auto) 0.0, Anion Gap 9, Glomerular Filtration Rate > 60.0, Calcium Level 8.4L, C-Reactive Protein, Quantitative 13.60H CBC/BMP Laboratory Tests 06/02/19 17:00 06/03/19 05:37 Microbiology Microbiology 06/01/19 Gram Stain - Final, Complete 06/01/19 Wound Culture - Final, Complete Staph.aureus Methicillin Resis 06/01/19 Blood Culture - Preliminary, Resulted No growth after 24 hours . All specim... 2/9/20 Blood Culture - Preliminary, Resulted No growth after 24 hours . All specim... SHAMA ZAIDI PA-C Jun 03, 2019 10:43
--- NOTE | 2019-06-03 12:39 | IPN ---
DATE OF SERVICE: 06/03/2019 The patient has been examined. Denies overnight complaints. She was given a unit of blood last night. Vitals are review. She has been afebrile. Labs are reviewed. White blood cell count today is 10.9. CRP is elevated at 13.6. Hemoglobin is improved from 7.9 to 9. Culture results are reviewed. Once grew methicillin resistant Staphylococcus aureus sensitive to tetracycline, clindamycin, Linezolid. LOWER EXTREMITY EXAMINATION: Erythema and edema is somewhat improved. There remains some scant purulent drainage with firm expression surrounding the ulcer itself. ASSESSMENT: 73-year-old diabetic female with right foot ulceration infection. Continue Vashe dressings. Okay to discharge likely tomorrow on oral doxycycline barring any further abnormalities and blood work. She is to followup with me on Sunday.
[2019-06-03] MEDS: DOXYCYCLINE HYCLATE 100 MG in D5W MINI-BAG PLUS 100 ML IV SCH ×2 (12:57→23:09)
[2019-06-03] MEDS: NS 1,000 ML IV SCH (17:31)
[2019-06-03] MEDS: LEVEMIR (INSULIN DETEMIR) 1 UNITS/0.01ML SC SCH (21:47)
[2019-06-03] MEDS: ATORVASTATIN 20 MG TAB PO SCH (21:47)
[2019-06-03] MEDS: GABAPENTIN 400 MG CAP PO SCH (21:48)
[2019-06-04 00:15] VITALS: BP 142/80
[2019-06-04 05:55] LABS: BASO % 0.3 % (0.0-1.0); EOS # 0.2 10^3/uL (0.0-0.5); EOS % 1.7 % (0.0-3.0); HEMATOCRIT 30.1 % (36.0-47.0); HEMOGLOBIN 9.7 g/dl (12.0-15.5); LYMPH # 1.5 10^3/uL (1.5-5.0); LYMPH % 17.3 % (24.0-44.0); MEAN CORPUSCULAR HEMOGLOBIN 28.4 pg (27.0-33.0); MEAN CORPUSCULAR HGB CONC 32.2 g/dl (32.0-36.5); MONO # 0.8 10^3/uL (0.0-0.8); MONO % 8.6 % (0.0-5.0); NEUTROPHILS # 6.2 10^3/uL (1.5-8.5); NEUTROPHILS % 71.5 % (36.0-66.0); PLATELET COUNT, AUTOMATED 242 10^3/uL (150-450); RED BLOOD COUNT 3.42 10^6/uL (4.00-5.40); WHITE BLOOD COUNT 8.7 10^3/uL (4.0-10.0)
[2019-06-04 06:00] VITALS: BP 130/58
[2019-06-04 06:11] LABS: BLOOD UREA NITROGEN 13 MG/DL (7-18); CALCIUM LEVEL 8.4 MG/DL (8.8-10.2); CARBON DIOXIDE LEVEL 27 MEQ/L (21-32); CHLORIDE LEVEL 104 MEQ/L (98-107); CREATININE FOR GFR 0.84 MG/DL (0.55-1.30); GLOMERULAR FILTRATION RATE > 60.0 (>39); GLUCOSE, FASTING 82 MG/DL (70-100); POTASSIUM SERUM 3.6 MEQ/L (3.5-5.1); SODIUM LEVEL 138 MEQ/L (136-145)
[2019-06-04] MEDS: HumaLOG INSULIN (NovoLOG) PER UNIT SC SCH (07:30)
[2019-06-04] MEDS: ASPIRIN 81 MG ENTERIC TAB PO SCH (08:26)
[2019-06-04 08:27] VITALS: BP 130/58
[2019-06-04] MEDS: DULoxetine 30 MG CAP (CYMBALTA) PO SCH (08:27)
[2019-06-04] MEDS: PANTOPRAZOLE 40MG TAB (PROTONIX) PO SCH (08:27)
[2019-06-04] MEDS: CLOPIDOGREL 75 MG TAB PO SCH (08:27)
[2019-06-04] MEDS: CARVedilol 12.5 MG TAB PO SCH (08:27)
[2019-06-04] MEDS ORDERED: BACI1CAP PO (09:16)
[2019-06-04] MEDS ORDERED: PANT40TA3 PO (09:16)
[2019-06-04] MEDS ORDERED: DOXY100C PO (09:16)
--- NOTE | 2019-06-04 15:38 | DSES ---
DATE OF ADMISSION: 06/01/2019 DATE OF DISCHARGE: 06/04/2019 PRIMARY CARE PROVIDER : MYRIAM Serrato ATTENDING PHYSICIAN: Dr. Jeremie Bojorquez CONSULTANTS: Dr. Nikolas Wilde HISTORY OF PRESENT ILLNESS: This is a 73-year-old female who presented to [facility] emergency department for complaints of a 3-day history of pain, swelling, redness at her ulcer site on her right foot in the plantar aspect. The area was quite red and painful with discoloration to the lateral aspect of the ulcer that had progressed throughout the dorsum of the foot. The patient failed on outpatient treatment through an urgent care in [place]. She was given Keflex 500 mg twice a day. The patient was subsequently admitted to family medicine service for management of her right 5th metatarsal head plantar ulcer with loculation and fremitus. HOSPITAL COURSE: Dr. Nikolas Wilde was consulted. The patient was placed on empiric antibiotics. Wound culture was obtained. Wound was debrided by Dr. Wilde and dressing changes were started. The patient tolerated Zosyn and vancomycin intravenously until treatment was changed to targeted for methicillin resistant Staphylococcus aureus (MRSA) with sensitivity to tetracycline. She was placed on Vibramycin intravenously and has tolerated that well. The patient's C-reactive, as well as her white blood count have continued to trend down. The patient has remained afebrile. The patient passed physical therapy (PT). Per Dr. Wilde's recent note, she is to continue with Vashe dressings. The patient did have some significant anemia with negative stool for occult blood. She was given 1 unit of packed red cells via transfusion with improvement of her hemoglobin levels, most recent hemoglobin is 9.7. ASSESSMENT: 1. Methicillin resistant Staphylococcus aureus (MRSA) infection. 2. Ulceration of the right 5th metatarsal head. 3. Anemia. 4. Diabetes. 5. Coronary artery disease. 6. Hypertension. PLAN: The patient will be discharged to home. Diet is carbohydrate consistent, 2-gram sodium diet. Activity is as tolerated. MEDICATIONS: - probiotic one capsule with meals three times a day - doxycycline 100 mg by mouth twice a day - pantoprazole sodium 40 mg by mouth twice a day - aspirin enteric coated 81 mg one daily - atorvastatin 80 mg one by mouth at night - carvedilol 25 mg by mouth twice a day - clopidogrel bisulfate 75 mg by mouth daily - Cymbalta 60 mg by mouth daily - gabapentin 800 mg by mouth at night - Levemir 70 units subcutaneously at night - Victoza 1.8 mg by mouth daily - metformin 500 mg by mouth twice a day - spironolactone 50 mg by mouth at night The patient's trandolapril was held secondary to some hypotension while she was in the facility. We will recheck her pressures at her primary care office within the next week. THe patient will followup with primary care provider in 1 week. She will followup with Dr. Wilde on 06/06/2019 as already scheduled. The patient and her daughter verbalize understanding and agreement with the plan. The patient is discharged in stable and satisfactory condition with no further questions at the time of discharge.
== END 2019-06-04 12:00 | disposition home or self-care (01) | DRG 638 ==
LOC: M ED 10:30 → M ED INP 13:15 → ENRESERVDT 14:13 → ENRESERVTM 14:13 → M MSPAV 16:40
PROVIDERS: ADMIT General Practice; ATTEND Family Medicine
PROC: 30233N1 Transfusion of Nonautologous Red Blood Cells into Peripheral Vein, Percutaneous Approach (ICD-10-PCS; principal; 2019-06-02)
DX: E11.621 Type 2 diabetes mellitus with foot ulcer (principal); L03.115 Cellulitis of right lower limb; M60.073 Infective myositis, right foot; L97.519 Non-pressure chronic ulcer of other part of right foot with unspecified severity; I25.10 Atherosclerotic heart disease of native coronary artery without angina pectoris; Z95.1 Presence of aortocoronary bypass graft; E11.42 Type 2 diabetes mellitus with diabetic polyneuropathy; N18.3 Chronic kidney disease, stage 3 (moderate); E11.22 Type 2 diabetes mellitus with diabetic chronic kidney disease; I12.9 Hypertensive chronic kidney disease with stage 1 through stage 4 chronic kidney disease, or unspecified chronic kidney disease; E78.5 Hyperlipidemia, unspecified; F41.9 Anxiety disorder, unspecified; K21.9 Gastro-esophageal reflux disease without esophagitis; I73.9 Peripheral vascular disease, unspecified; Z98.49 Cataract extraction status, unspecified eye; D64.9 Anemia, unspecified; E11.51 Type 2 diabetes mellitus with diabetic peripheral angiopathy without gangrene; B95.62 Methicillin resistant Staphylococcus aureus infection as the cause of diseases classified elsewhere; Z87.891 Personal history of nicotine dependence

== ENCOUNTER → 2019-06-10 | Outpatient (REF) | payer MEDICARE ==
[~2019-06-10] MED LIST changes: +ASPI81TA33 PO; +ATOR80TA59 PO; +BACI1CAP PO; +CARV25TA PO; +CEPH500C PO; +CHLO25TA GT; +CLOP75TA2 PO; +DOXY100C PO; +DULO1CAP6 PO; +GABA800T4 PO; +GLIM4TAB5 PO; +HYDR-3713 PO; +INSUDET SC; +LINE1TAB6 PO; +MAGN400T2 PO; +METF10004 PO; +PANT40TA3 PO; +SIMV40TA20 PO; +SPIR50TA4 PO; +TRAN1TAB47 PO; +TRAN1TAB48 PO; +VICT18IN2 PO; +[UNRECOGNIZED DRUG - CODE] TOP
[2019-06-11 11:08] LABS: BASO # 0.1 10^3/uL (0.0-0.2); BASO % 0.5 % (0.0-1.0); EOS # 0.1 10^3/uL (0.0-0.5); EOS % 0.7 % (0.0-3.0); HEMATOCRIT 39.8 % (36.0-47.0); HEMOGLOBIN 12.1 g/dl (12.0-15.5); LYMPH # 1.8 10^3/uL (1.5-5.0); LYMPH % 17.2 % (24.0-44.0); MEAN CORPUSCULAR HGB CONC 30.4 g/dl (32.0-36.5); MEAN CORPUSCULAR VOLUME 92.1 fl (80.0-96.0); MONO # 0.7 10^3/uL (0.0-0.8); MONO % 6.7 % (0.0-5.0); NEUTROPHILS # 7.7 10^3/uL (1.5-8.5); NEUTROPHILS % 74.3 % (36.0-66.0); PLATELET COUNT, AUTOMATED 452 10^3/uL (150-450); RED BLOOD COUNT 4.32 10^6/uL (4.00-5.40); WHITE BLOOD COUNT 10.3 10^3/uL (4.0-10.0)
[2019-06-11 11:09] LABS: C REACTIVE PROTEIN QUANTITATIV 0.97 MG/DL (0.00-0.30); CALCIUM LEVEL 9.3 MG/DL (8.8-10.2); CREATININE FOR GFR 1.18 MG/DL (0.55-1.30); GLOMERULAR FILTRATION RATE 47.9 (>39); POTASSIUM SERUM 4.2 MEQ/L (3.5-5.1)
== END ==
LOC: M SFHCPLAZ 15:04
DX: L97.512 Non-pressure chronic ulcer of other part of right foot with fat layer exposed (principal)

== ENCOUNTER 2019-06-25 09:36 | Day surgery (SDC) | payer MEDICARE ==
[~2019-06-25] VITALS: Ht 152.4 cm; Wt 60.8 kg
[~2019-06-25 09:36] MED LIST changes: +BUPIVACAINE HCL 0.5% 10 ML VIAL As Ordered ONE; -HYDR-3713 PO; +LIDOCAINE 1% MDV 20ML VIAL As Ordered ONE; +LR 1,000 ML IV ONE; -[UNRECOGNIZED DRUG - CODE] TOP; +ceFAZolin SOD 2 GM in IV 1 EA IV ONE; +dexameTHASONE 4 MG/ML 1ML VIAL (J1100) As Ordered ONE
[2019-06-25] MEDS ORDERED: LIDOCAINE 2% INJ 100 MG/5 ML SDV (FOR ANES.) As Ordered ONE (10:23)
[2019-06-25] MEDS ORDERED: KETOROLAC 60 MG/2 ML VIAL (J1885) As Ordered ONE (10:24)
[2019-06-25] MEDS ORDERED: propofoL 200 MG/20 ML VIAL As Ordered ONE (10:24)
[2019-06-25] MEDS ORDERED: MIDAZOLAM INJ 2 MG/2 ML VIAL (J2250) As Ordered ONE (10:24)
[2019-06-25] MEDS ORDERED: ONDANSETRON 4MG/2ML VIAL (J2405) As Ordered ONE (10:24)
[2019-06-25] MEDS ORDERED: fentaNYL 100 MCG/2 ML INJECTION (J3010) As Ordered ONE (10:24)
[2019-06-25] MEDS ORDERED: VANCOMYCIN HCL 1,000 MG, VIAL MATE ADAPTER 1 EACH in D5W 250 ML IV ONE (11:00)
[2019-06-25] MEDS ORDERED: LACRILUBE (AKWA TEARS) OPHTH OINT 3.5 GM As Ordered ONE (13:26)
[2019-06-25] MEDS ORDERED: HYDR-3713 PO (13:28)
[2019-06-25 14:15] VITALS: BP 149/66
--- NOTE | 2019-06-27 09:11 | RO ---
DATE OF PROCEDURE: 06/25/2019 PREPROCEDURE DIAGNOSIS: Right fifth metatarsal head osteomyelitis and diabetic ulceration. POSTPROCEDURE DIAGNOSIS: Right fifth metatarsal head osteomyelitis and diabetic ulceration. PROCEDURE: Right fifth metatarsal head excision. SURGEON: Dr. Nikolas Wilde HOUSE MANAGER: None. ANESTHESIA: Monitored anesthesia care and preoperative injection of 10 mL of 1:1 mixture of 1% lidocaine plain and 1/2% Marcaine plain. ESTIMATED BLOOD LOSS: 5 mL. PATHOLOGY: Right fifth metatarsal head. COMPLICATIONS: None. CONDITION: Stable. Dulce Gonsales is a 74-year-old female who has presented to [facility] with complaints of fifth metatarsal wound. She had a recent infection requiring hospitalization. She had worsening of the ulceration with a probe to bone. Infection has improved. However, the ulcer remains open with exposed bone. Decision made to bring her to the operating room for metatarsal head excision. The patient side and site were identified and marked in the preoperative holding area. Consent was reviewed and obtained. All risks, complications, and alternatives to the procedure were explained to the patient in detail and all questions were answered. OPERATIVE PROCEDURE: The patient was brought to the operating room and placed on the operating room in supine position. Monitored anesthesia care was delivered by the anesthesia team. Preoperative injection of 10 mL of 1:1 mixture of 1% lidocaine plain and 1/2% Marcaine plain were injected to the right foot. The right foot was prepped and draped in normal sterile fashion. Tourniquet was applied to the right ankle but not inflated during the procedure. The wound was inspected. There was noted to be at the lateral aspect of the fifth metatarsal the bone was exposed through the wound. A small incision was made in the proximal end of the ulceration with a #15 blade and dissection was carried down to the bone. Soft tissue attachments to the bone were released and the bone was excised using a sagittal saw. It should be noted that the bone was soft and discolored, so sent for pathology. The site was irrigated with normal. No other significant infection findings or necrotic tissue were noted. The incision was repaired with #3-0 nylon and the wound was packed with saline gauze. Dry dressings were applied overtop of this. The patient was brought to postanesthesia care unit (PACU) with vital signs stable and neurovascular status intact. She will be weightbearing as tolerated. She will followup in office in 2 days.
== END 2019-06-25 14:15 | disposition home or self-care (01) ==
LOC: M SDC 09:36
PROVIDERS: ATTEND Podiatrist Foot & Ankle Surgery
DX: M86.171 Other acute osteomyelitis, right ankle and foot (principal); E11.621 Type 2 diabetes mellitus with foot ulcer; E11.40 Type 2 diabetes mellitus with diabetic neuropathy, unspecified; I10 Essential (primary) hypertension; E78.5 Hyperlipidemia, unspecified; I73.9 Peripheral vascular disease, unspecified; I25.10 Atherosclerotic heart disease of native coronary artery without angina pectoris; Z98.61 Coronary angioplasty status; Z79.82 Long term (current) use of aspirin; Z79.4 Long term (current) use of insulin; Z79.84 Long term (current) use of oral hypoglycemic drugs; F41.9 Anxiety disorder, unspecified; F32.9 Major depressive disorder, single episode, unspecified; Z79.899 Other long term (current) drug therapy
CPT/HCPCS: 28122; 88304; J1100; J2250; J2405; J3010; J3370

== ENCOUNTER 2019-06-30 16:06 | Inpatient (IN) | payer MEDICARE ==
[~2019-06-30] VITALS: Ht 152.4 cm; Wt 59.1 kg
[~2019-06-30 16:06] MED LIST changes: -BUPIVACAINE HCL 0.5% 10 ML VIAL As Ordered ONE; +HYDR-3713 PO; -LIDOCAINE 1% MDV 20ML VIAL As Ordered ONE; -LR 1,000 ML IV ONE; -ceFAZolin SOD 2 GM in IV 1 EA IV ONE; -dexameTHASONE 4 MG/ML 1ML VIAL (J1100) As Ordered ONE
[2019-06-30 16:39] LABS: HEMOGLOBIN 8.7 g/dl (12.0-15.5); MEAN CORPUSCULAR HEMOGLOBIN 27.5 pg (27.0-33.0); MEAN CORPUSCULAR HGB CONC 31.1 g/dl (32.0-36.5); MEAN CORPUSCULAR VOLUME 88.6 fl (80.0-96.0); PLATELET COUNT, AUTOMATED 350 10^3/uL (150-450); RED BLOOD COUNT 3.16 10^6/uL (4.00-5.40); WHITE BLOOD COUNT 7.1 10^3/uL (4.0-10.0)
[2019-06-30 16:59] LABS: CALCIUM LEVEL 8.5 MG/DL (8.8-10.2); CREATININE FOR GFR 1.04 MG/DL (0.55-1.30); GLOMERULAR FILTRATION RATE 55.5 (>39); POTASSIUM SERUM 4.1 MEQ/L (3.5-5.1)
--- NOTE | 2019-06-30 18:17 | HPEPDOC ---
[facility] Medical History & Physical Date of Admission Jun 30, 2019 Date of Service: Jun 30, 2019 History and Physical CHIEF COMPLAINT: Fatigue and dizziness HISTORY OF PRESENT ILLNESS: This is a 73-year-old female with past medical history of diabetes mellitus and recently diagnosed with right fifth metatarsal head still. Mellitus with diabetic ulceration status post amputation, she has a history of diabetes mellitus, not well controlled. Also has a history of CAD status post PCI the last PCI was done in April 2019. On day antiplatelet agents., presented to the emergency room with complaints of increasing fatigue a nd lightheadedness. It has been happening over the last 1 week. The patient states that her lightheadedness has been worsening and there is no associated symptoms with it. It is at her baseline as well. The patient was found to be anemic at 8.7 in the ER and her last hemoglobin before her preop for her diabetic ulcer was 12. The patient denied any blood in the stools or any bloody vomiting. The patient denied any blood in the urine. The patient denies any recent viral illness. The patient denies any nhab-deo-fzrwbxh medications. She denies any NSAID abuse. In the ER, orthostatic signs are positive and because of her symptom medical anemia. She will be admitted to the hospitalist service. The patient denies any rigors, any chills. The patient denies any headaches, any chest pains. PAST MEDICAL HISTORY: 1. Coronary artery disease, status post nine stents placed at [facility], last one was done on and the day after . 2. Diabetes with chronic nephropathy. 3. Chronic kidney disease stage III. 4. Diabetic neuropathy. 5. Hypertension. 6. Hyperlipidemia. 7. Anxiety. 8. Chronic foot ulcer. 9. Reflux disease. 10. Peripheral arterial disease. ALLERGIES: No known drug allergies. PAST SURGICAL HISTORY: 1. BTL in 1975, LSO in 1980. 2. Coronary stent in April 2019, nine stents placed at [facility]. 3. Breast biopsy negative in 2009. 4. The patient denies any stent to the right leg in 2007 and says that she had angioplasty and no stent was placed in the leg. 5. Fem-pop bypass. 6. Right fifth metatarsal amputation FAMILY HISTORY: Mother at age 52 with diabetes, coronary artery disease. Brother at age 46. Brother with myocardial infarction at age 52. Father at age 59 with coronary artery disease and myocardial infarction. 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 Daughter lives next door. Everything is on one floor. One step to get into the home. Denies any smoking currently, alcohol or recreational drug use. REVIEW OF SYSTEMS: All other review of systems negative, 10-point system has been negative aside from positive findings in history of present illness. PHYSICAL EXAMINATION: VITAL SIGNS: As below GENERAL: The patient is awake, alert, oriented times three. Answering questions appropriately. No use of respiratory accessory muscles. NECK: Supple with full range of motion. No cervical lymphadenopathy or thyromegaly. LUNGS: Clear to auscultation. No wheezing, rales or rhonchi. HEART: S1, S2. Sinus rhythm. ABDOMEN: Soft, nontender, nondistended. Positive bowel sounds times four quadrants. EXTREMITIES: No cyanosis or clubbing. LABORATORY DATA: As below ASSESSMENT AND PLAN: This is a 73-year-old female, with chronic kidney disease stage III, diabetic neuropathy, diabetic nephropathy, hypertension, coronary artery disease with nine coronary stents placed in April and on chronic aspirin and Plavix,hyperlipidemia, anxiety, reflux, chronic diabetic foot ulcer status post amputation, presents with symptomatically anemia IMPRESSION: 1. Symptomatic anemia. Stool for occult blood was done which came out to be neg ative. The patient denies any upper GI loss of blood. The patient does take a dual antiplatelet agents and is at high risk of GI bleed. Will repeat a stool for occult blood. Iron and studies will be done. Reticulocyte count will be done to establish the etiology. Medications reviewed and none of them can cause bone marrow suppression. We will monitor hemoglobin every 12 hours, and if the hemoglobin drops below 8 we'll transfuse accordingly. Will start the patient on Protonix 40 IV twice a day and sucralfate. We will start IV fluids at 75 mL of normal saline. We will evaluate other causes of dizziness 2 by repeating orthostatic signs. After 1 L bolus. We will get TSH, as well as cortisol a.m. levels. 2. Peripheral arterial disease. Continue statin and a dual antiplatelets. 3. Type 2 diabetes. She may be resumed on consistent carbohydrate diet. She may be resumed on her home dose of Levemir, sliding scale per protocol before food and nightly per [facility] protocol. A1/c is adequate at 6.1, the patient appears to be well controlled. 4. Hypertension. We will continue patient on telemetry and decide about Coreg dose as the patient has been dizzy. 5. History of coronary artery disease, recent stent in April 2019 with nine coronary stents placed. She needs to be continued on aspirin and Plavix 75 mg daily. Continue statin 6. Hyperlipidemia. Continue on Lipitor. 7. Reflux disease. 8. Deep vein thrombosis (DVT) prophylaxis. With SCDs Expected length of stay is greater than 2 midnights. Vital Signs Vital Signs Date Time Temp Pulse Resp B/P (MAP) Pulse Ox O2 Delivery O2 Flow Rate FiO2 06/30/19 16:16 97.9 84 16 170/74 (106) 100 Room Air Laboratory Data Labs 24H Laboratory Tests 2 06/30/19 16:15: Nucleated Red Blood Cells % (auto) 0.0, Anion Gap 8, Glomerular Filtration Rate 55.5, Calcium Level 8.5L CBC/BMP Laboratory Tests 06/30/19 16:15 Home Medications Scheduled Aspirin (Aspirin EC) 81 Mg Tablet.dr, 81 MG PO DAILY Atorvastatin Calcium (Atorvastatin Calcium) 80 Mg Tablet, 80 MG PO QHS Carvedilol (Carvedilol) 25 Mg Tablet, 12.5 MG PO BID Clopidogrel Bisulfate (Clopidogrel) 75 Mg Tablet, 75 MG PO DAILY Duloxetine Hcl (Duloxetine HCl) 60 Mg Capsule.dr, 60 MG PO DAILY Gabapentin (Gabapentin) 800 Mg Tablet, 800 MG PO QHS Insulin Detemir (Levemir) 100 Unit/1 Ml Vial, 30 UNITS SC QHS Liraglutide (Victoza 3-Lele) 0.6 Mg/0.1 Ml Pen.injctr, 1.8 MG PO DAILY Metformin HCl (Metformin HCl) 1,000 Mg Tablet, 500 MG PO DAILY Metformin HCl (Metformin HCl) 1,000 Mg Tablet, 1,000 MG PO QHS Pantoprazole Sodium (Pantoprazole Sodium) 40 Mg Tablet.dr, 40 MG PO BID Sodium Chlor/Hypochlorous Acid (Vashe Wound Solution) 1,000 Ml Irrig.soln, 1 APPLIC TOP DAILY PER DR. MALHOTRA WOUND ON FOOT NEEDS TO BE WASHED AFTER EVERY REDRESSING. Spironolactone (Spironolactone) 50 Mg Tablet, 0.5 TAB PO DAILY Scheduled PRN Hydrocodone/Acetaminophen (Hydrocodone-Acetamin 5-325 mg) 1 Each Tablet, 1 TAB PO Q6H PRN for PAIN Allergies Coded Allergies: No Known Allergies (Verified , 07/22/07) A-FIB/CHADSVASC A-FIB History Current/History of A-Fib/PAF?: No Current PO Anticoag Therapy: No GRACE RUVALCABA MD Jun 30, 2019 18:17
[2019-06-30] MEDS ORDERED: GLUCOSE 4 GM CHEW TABLET PO PRN (18:30)
[2019-06-30] MEDS ORDERED: GLUCAGON FOR INJ 1 MG VIAL (J1610) SC PRN (18:30)
[2019-06-30] MEDS ORDERED: DEXTROSE 50% 50 ML SYRINGE IV PRN (18:30)
[2019-06-30] MEDS ORDERED: HYDR-3713 PO (18:33)
[2019-06-30] MEDS ORDERED: METF10004 PO (18:33)
[2019-06-30] MEDS ORDERED: PANT40TA3 PO (18:33)
[2019-06-30] MEDS ORDERED: [UNRECOGNIZED DRUG - CODE] TOP (18:35)
--- NOTE | 2019-06-30 18:56 | REP ---
Portable chest, 06:26 p.m., single AP view with the patient upright: Comparison is 08/31/2012. The lung ferrer are clear. The cardiac size is normal. The clarissa, mediastinum, and skeletal structures are unremarkable. Narrowing of the left subacromial space compatible with chronic impingement. Impression: Negative portable chest. There is no interval change. Electronically Signed by Jovanny Duran MD 06/30/2019 06:48 P
[2019-06-30 18:59] LABS: BASO % 0.4 % (0.0-1.0); EOS # 0.1 10^3/uL (0.0-0.5); EOS % 1.3 % (0.0-3.0); LYMPH # 1.3 10^3/uL (1.5-5.0); LYMPH % 18.6 % (24.0-44.0); MONO # 0.6 10^3/uL (0.0-0.8); MONO % 8.5 % (0.0-5.0); NEUTROPHILS # 5.1 10^3/uL (1.5-8.5); NEUTROPHILS % 70.6 % (36.0-66.0)
[2019-06-30 19:10] LABS: C REACTIVE PROTEIN QUANTITATIV 2.2 MG/DL (0.00-0.30); PERCENT SATURATION 20.2 % (13.2-45.0); THYROID STIMULATING HORMONE 1.35 uIU/ML (0.358-3.740)
[2019-06-30 19:48] VITALS: BP_SYST 135; BP_SYST 140; BP_DIAS 60; BP_DIAS 70
[2019-06-30] MEDS: NS 1,000 ML IV SCH (20:36)
--- NOTE | 2019-06-30 20:45 | ECGEPIP ---
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
[2019-06-30] MEDS: LEVEMIR (INSULIN DETEMIR) 1 UNITS/0.01ML SC SCH (21:00)
[2019-06-30] MEDS ORDERED: PANTOPRAZOLE 40MG INJ (PROTONIX) (C9113) IV SCH (21:00)
[2019-06-30] MEDS: CARVedilol 12.5 MG TAB PO SCH (21:39)
[2019-06-30 22:00] VITALS: BP 130/57
[2019-07-01 06:00] VITALS: BP 167/74
[2019-07-01 07:00] LABS: HEMOGLOBIN 8.8 g/dl (12.0-15.5); MEAN CORPUSCULAR HEMOGLOBIN 27.3 pg (27.0-33.0); MEAN CORPUSCULAR HGB CONC 31.4 g/dl (32.0-36.5); PLATELET COUNT, AUTOMATED 378 10^3/uL (150-450); RED BLOOD COUNT 3.22 10^6/uL (4.00-5.40); WHITE BLOOD COUNT 6.5 10^3/uL (4.0-10.0)
[2019-07-01 07:41] LABS: ALT/SGPT 38 U/L (12-78); BILIRUBIN,TOTAL 0.4 MG/DL (0.2-1.0); BLOOD UREA NITROGEN 12 MG/DL (7-18); CALCIUM LEVEL 8.7 MG/DL (8.8-10.2); CARBON DIOXIDE LEVEL 26 MEQ/L (21-32); CHLORIDE LEVEL 106 MEQ/L (98-107); CREATININE FOR GFR 0.87 MG/DL (0.55-1.30); GLOMERULAR FILTRATION RATE > 60.0 (>39); GLUCOSE, FASTING 125 MG/DL (70-100); SODIUM LEVEL 139 MEQ/L (136-145); TOTAL PROTEIN 6.2 GM/DL (6.4-8.2)
[2019-07-01 08:05] VITALS: BP 167/74
[2019-07-01] MEDS: SUCRALFATE 1 GM TAB PO SCH ×2 (08:05→13:00)
[2019-07-01] MEDS: LEVEMIR (INSULIN DETEMIR) 1 UNITS/0.01ML SC SCH (08:05)
[2019-07-01] MEDS: CARVedilol 12.5 MG TAB PO SCH (08:05)
[2019-07-01] MEDS: HumaLOG INSULIN (NovoLOG) PER UNIT SC SCH ×2 (08:06→13:00)
[2019-07-01] MEDS ORDERED: ASPIRIN 325 MG TAB PO SCH (09:00)
[2019-07-01] MEDS ORDERED: CLOPIDOGREL 75 MG TAB PO SCH (09:00)
[2019-07-01] MEDS: NS 1,000 ML IV SCH (09:30)
[2019-07-01 10:08] LABS: CORTISOL AM 20.4 UG/DL (4.3-22.4)
--- NOTE | 2019-07-01 10:31 | IPNPDOC ---
Subjective Date Seen The patient was seen on 07/01/19. Subjective Chief Complaint/HPI Pt this morning states that she is feeling alright, has has transferred from the bed to commode but not been out of bed otherwise. her dgt is at bedside, states that her mom doesn't drink much fluids during the day and that this is playing a role in her light headedness. General: Denies: Fatigue Constitutional: Denies: Chills, Fever ENT: Denies: Head Aches Pulmonary: Denies: Dyspnea, Cough Cardiovascular: Denies: Chest Pain, Palpitations Gastrointestinal: Denies: Nausea, Vomiting, Diarrhea Neurological: Denies: Weakness Psych: Reports: Mood Normal Objective Physical Examination General Exam: Positive: Alert, No Acute Distress ENT Exam: Positive: Mucous membr. moist/pink Neck Exam: Positive: Supple Chest Exam: Positive: Clear to auscultation, Normal air movement Heart Exam: Positive: Rate Normal, Normal S1, Normal S2 Abdomen Exam: Positive: Normal bowel sounds, Soft; Negative: Tenderness Extremity Exam: Negative: Edema Neuro Exam: Positive: Normal Speech Psych Exam: Positive: Mood NL Assessment /Plan Problems (1) Symptomatic anemia Status: Acute Problem Text: Her baseline Hgb is unknown really, but likely close to 8-9 recently. 06/10/2019 she did have a hgb of 12, but her Scr/BUN was also slightly elevated at that time as well. Her pressures this morning are better, I have stopped her IVF, ordered PT and will see how she does. She had a neg OB in the ED and has another ordered, she has not had a BM. Last colonoscopy was done 06/[address] Rodriguez, +adenematous polyp, so she is due to have this repeated. (2) Hypertension Status: Chronic Response to Treatment: Stable Problem Text: Pressures stable, orthostasis documented on admission better last night. (3) Diabetic foot ulcer associated with type 2 diabetes mellitus Status: Acute (4) CAD (coronary artery disease) Permanent Comment: - NSTEMI [id number] PCI - LAN x4 [id number] RCA; PTCA posterolateral branch of RCA, [id number] - LAN [id number] LAD [id number] - LAN mid RCA 04/24/2019 - ALN x2 dista RCA [id number]; tesidual distal 60% stenosis postintervention - Hossein atuioventflcular bianch; 60% residual stenosis Last Edited By: Kiko Richey MD on Jun 02, 2019 16:58 Status: Chronic Plan/VTE VTE Prophylaxis Ordered?: Yes VS, I&O, 24H, Fishbone Vital Signs/I&O Vital Signs Date Time Temp Pulse Resp B/P (MAP) Pulse Ox O2 Delivery O2 Flow Rate FiO2 07/01/19 08:05 84 167/74 07/01/19 06:00 97.8 20 96 Room Air I&O- Last 24 Hours up to 6 AM 07/01/19 06:00 Intake Total 525 ml Output Total 4150 ml Balance -3625 ml Laboratory Data 24H LABS Laboratory Tests 2 06/30/19 16:15: Immature Granulocyte % (Auto) 0.6, Neutrophils (%) (Auto) 70.6H, Lymphocytes (%) (Auto) 18.6L, Monocytes (%) (Auto) 8.5H, Eosinophils (%) (Auto) 1.3, Basophils (%) (Auto) 0.4, Immature Granulocyte # (Auto) 0.0, Neutrophils # (Auto) 5.1, Lymphocytes # (Auto) 1.3L, Monocytes # (Auto) 0.6, Eosinophils # (Auto) 0.1, Basophils # (Auto) 0.0, Reticulocyte # (auto) 126.9H, Nucleated Red Blood Cells % (auto) 0.0, Differential Slide Review Report, Platelet Estimate , Peripheral Blood Smear Path Consult PERIPHERAL SMEAR, Percent Reticulocyte Count 4.0H, Reticulocyte Hemoglobin Equivalent 23.7L, Anion Gap 8, Glomerular Filtration Rate 55.5, Calcium Level 8.5L, Iron Level 49L, Total Iron Binding Capacity 243L, Transferrin % Saturation 20.2, Ferritin 246, C-Reactive Protein, Quantitative 2.20H, Thyroid Stimulating Hormone (TSH) 1.350 06/30/19 20:00: Bedside Glucose (Misc Panel) 83 07/01/19 06:21: Nucleated Red Blood Cells % (auto) 0.0, Anion Gap 7L, Glomerular Filtration Rate > 60.0, Calcium Level 8.7L, Total Bilirubin 0.4, Aspartate Amino Transf (AST/SGOT) 27, Alanine Aminotransferase (ALT/SGPT) 38, Alkaline Phosphatase 63, Total Protein 6.2L, Albumin 3.0L, Albumin/Globulin Ratio 0.94L, Cortisol AM Sample 20.4 CBC/BMP Laboratory Tests 06/30/19 16:15 07/01/19 06:21 SHAMA ZAIDI PA-C Jul 01, 2019 10:31
[2019-07-01 14:00] VITALS: BP 142/66
[2019-07-01] MEDS ORDERED: SPIR50TA4 PO (14:26)
--- NOTE | 2019-07-01 14:57 | DSES ---
DATE OF ADMISSION: 06/30/2019 DATE OF DISCHARGE: PRINCIPAL DIAGNOSIS: Anemia - chronic. SECONDARY DIAGNOSES: 1. History of coronary artery disease (CAD). 2. History of adenomatous colon polyp 2014. 3. History of chronic kidney disease stage III. 4. Diabetes with chronic nephropathy. 5. Hypertension. 6. Peripheral arterial disease. HISTORY: Patient is a 74-year-old who was admitted for perceived anemia. Hemoglobin was 8.7, previous hemoglobin in May was 12, so she was admitted for dropping hemoglobin, which is probably not reflective of her baseline (see below). HOSPITAL COURSE: She was admitted to a medical bed. Stool was negative for occult blood. More careful evaluation of her laboratory work showed that her hemoglobin baseline is around 9. On 06/10/19 her hemoglobin was 12.2, but she was dehydrated that day. She was sick, her BUN and creatinine were 25/1.1, which is a doubling of her BUN suggesting some significant volume contraction. With her BUN and creatinine at baseline, her hemoglobin is back to baseline. In the absence of any active bleeding and the patient having passed physical therapy and occupational therapy, it was felt she could safely be discharged. She should get a colonoscopy this year. It has been 5 years since she had her last one, and she did have an adenomatous polyp in 2014. I have adjusted her medications reducing the dose of her spironolactone to 25 mg (half a tablet) daily. Otherwise, there is no change of her medications. SIGNIFICANT LABS: Today, sodium 139, potassium 4.0, BUN 12, creatinine 0.87, glucose 125, white count 6.5, hemoglobin 8.8, which is the same as yesterday, platelets 378. DISPOSITION: She is discharged home in improved and stable condition. She will followup with Sloane Urrutia NP, her primary care provider, in a week. She should see Dr. Rodriguez sometime this year for a colonoscopy. ACTIVITY: As tolerated. DIET: She has a no added salt diet. DISCHARGE MEDICATIONS: Her medications on discharge will be a reduced dose of spironolactone 25 mg daily (half of a 50 mg tablet). Otherwise, she will stay on: - aspirin 81 mg daily - atorvastatin 80 mg daily - carvedilol 12.5 mg twice a day - Plavix 75 mg daily - duloxetine 60 mg daily - gabapentin 800 mg at bedtime - hydrocodone/acetaminophen 5/325 every 6 hours as needed - Levemir 30 units at bedtime - Victoza 1.8 mg subcu daily - metformin 1000 mg at bedtime, 500 mg in the morning - Protonix 40 mg twice a day - Vashe solution to her foot wound per Dr. Wilde At the time of this dictation, there are no pending labs.
== END 2019-07-01 16:00 | disposition home or self-care (01) | DRG 812 ==
LOC: M ED 16:06 → EDBD 16:06 → M ED INP 18:17 → ENRESERVDT 18:48 → ENRESERVTM 18:48 → M MSPAV 19:48
PROVIDERS: ADMIT Internal Medicine; ATTEND Family Medicine
DX: D64.9 Anemia, unspecified (principal); I25.10 Atherosclerotic heart disease of native coronary artery without angina pectoris; E11.22 Type 2 diabetes mellitus with diabetic chronic kidney disease; N18.3 Chronic kidney disease, stage 3 (moderate); E11.40 Type 2 diabetes mellitus with diabetic neuropathy, unspecified; I10 Essential (primary) hypertension; F41.9 Anxiety disorder, unspecified; E78.5 Hyperlipidemia, unspecified; E11.621 Type 2 diabetes mellitus with foot ulcer; E86.0 Dehydration; K21.9 Gastro-esophageal reflux disease without esophagitis; E11.51 Type 2 diabetes mellitus with diabetic peripheral angiopathy without gangrene; Z95.5 Presence of coronary angioplasty implant and graft; Z98.62 Peripheral vascular angioplasty status; Z89.421 Acquired absence of other right toe(s); Z79.82 Long term (current) use of aspirin; Z79.02 Long term (current) use of antithrombotics/antiplatelets; Z79.4 Long term (current) use of insulin; Z79.899 Other long term (current) drug therapy; Z86.010 Personal history of colon polyps

== ENCOUNTER 2019-09-03 18:09 | Inpatient (IN) | payer MEDICARE ==
[~2019-09-03] VITALS: Ht 152.4 cm; Wt 62.4 kg
[~2019-09-03 18:09] MED LIST changes: -VICT18IN2 PO; +VICT18IN2 SC; +[UNRECOGNIZED DRUG - CODE] TOP
[2019-09-03 19:51] LABS: BASO % 0.2 % (0.0-1.0); EOS % 0.1 % (0.0-3.0); HEMATOCRIT 33.1 % (36.0-47.0); HEMOGLOBIN 10.6 g/dl (12.0-15.5); LYMPH # 1.4 10^3/uL (1.5-5.0); LYMPH % 8.5 % (24.0-44.0); MEAN CORPUSCULAR VOLUME 87.6 fl (80.0-96.0); MONO # 0.8 10^3/uL (0.0-0.8); MONO % 4.6 % (0.0-5.0); NEUTROPHILS # 14.6 10^3/uL (1.5-8.5); PLATELET COUNT, AUTOMATED 203 10^3/uL (150-450); RED BLOOD COUNT 3.78 10^6/uL (4.00-5.40)
[2019-09-03] MEDS ORDERED: NS 1,000 ML IV ONE (20:00)
[2019-09-03 20:03] LABS: INR 1.11
[2019-09-03 20:17] LABS: ALBUMIN 3.4 GM/DL (3.2-5.2); ALT/SGPT 24 U/L (12-78); BILIRUBIN,TOTAL 0.9 MG/DL (0.2-1.0); BLOOD UREA NITROGEN 32 MG/DL (7-18); CALCIUM LEVEL 8.3 MG/DL (8.8-10.2); CARBON DIOXIDE LEVEL 23 MEQ/L (21-32); CHLORIDE LEVEL 97 MEQ/L (98-107); CPK CREATINE PHOSPHOKINASE 70 U/L (26-192); CREATININE FOR GFR 1.53 MG/DL (0.55-1.30); GLOMERULAR FILTRATION RATE 35.5 (>39); GLUCOSE, FASTING 152 MG/DL (70-100); MB/CK RELATIVE INDEX 1.43 (< OR =4); POTASSIUM SERUM 3.8 MEQ/L (3.5-5.1); SODIUM LEVEL 132 MEQ/L (136-145); TOTAL PROTEIN 6.7 GM/DL (6.4-8.2); TROPONIN I < 0.02 NG/ML (< 0.10)
--- NOTE | 2019-09-03 20:18 | REP ---
Portable chest x-ray: Single view. History: Chest pain. Comparison chest x-ray: June 30, 2019. Findings: There are are patchy infiltrates in the right base and right upper lobe consistent with pneumonia. The left lung appears clear. Pleural angles are sharp. Cardio-mediastinal silhouette is unremarkable. Pulmonary vasculature is not increased. Impression: For infiltrates in the right base and right upper lobe region consistent with pneumonia. Electronically Signed by Wesley Wheeler MD 09/03/2019 08:10 P
[2019-09-03] MEDS ORDERED: cefTRIAXone SOD 1 GM in D5W MINI-BAG PLUS 50 ML IV ONE (21:15)
[2019-09-03] MEDS ORDERED: DOXYCYCLINE HYCLATE 100 MG in D5W MINI-BAG PLUS 100 ML IV ONE (21:15)
[2019-09-03] MEDS ORDERED: SPIR-10 PO (21:31)
[2019-09-03] MEDS ORDERED: METF10004 PO (21:31)
[2019-09-03] MEDS ORDERED: GLUCAGON INJ 1MG VIAL SC PRN (22:30)
[2019-09-03] MEDS ORDERED: ACETAMINOPHEN TAB 650MG DOSE (2X325MG) PO PRN (22:30)
[2019-09-03] MEDS ORDERED: DEXTROSE 50% 50 ML SYRINGE IV PRN (22:30)
[2019-09-03] MEDS ORDERED: GLUCOSE 4GM CHEW TABLET PO PRN (22:30)
[2019-09-03] MEDS: HumaLOG INSULIN (NovoLOG) PER UNIT SC SCH (23:17)
[2019-09-03] MEDS: PANTOPRAZOLE 40MG TAB (PROTONIX) PO SCH (23:26)
[2019-09-03] MEDS: DULoxetine 30 MG CAP (CYMBALTA) PO SCH (23:26)
[2019-09-03] MEDS: ATORVASTATIN 20 MG TAB PO SCH (23:26)
[2019-09-03] MEDS: CARVedilol 12.5 MG TAB PO SCH (23:26)
[2019-09-03] MEDS: GABAPENTIN 400 MG CAP PO SCH (23:28)
[2019-09-04 01:15] VITALS: BP 166/66
--- NOTE | 2019-09-04 02:56 | HPEPDOC ---
[facility] Medical History & Physical Date of Admission September 03, 2019 Date of Service: September 03, 2019 Attending Physician: AMBREEN GOLDMAN MD History and Physical CHIEF COMPLAINT: Generalized weakness, dizzy HISTORY OF PRESENT ILLNESS: 74-year-old W with IDDM, CAD s/p PCI with the last PCI was done in04/2019, as well as PVD on DAPT, who presented to the emergency room with complaints of increasing fatigue and dizziness since morning without associated chest pain, shortness of breath, cough, fever, chills, poor PO, recent travel or N/V/D. In the ED, arrived hemodynamically stable and afebrile, saturating well on room air and was found to be orthostatic, and on studies had leukocytosis to 17, with her baseline anemia to 10.6, WILVER on CKD with Cr 1.53 and CXR revealed multifocal right sided PNA while covid-19 PCR was negative. She is now being admitted to medicine for CAP. PAST MEDICAL HISTORY: 1. Coronary artery disease, s/p 9 stents placed at [facility], last one 04/2019 2. IDDM c/n nephropathy and neuropathy 3. Chronic kidney disease stage III. 4. Hypertension. 5. Hyperlipidemia. 6. Anxiety. 7. Chronic foot ulcer. 8. Reflux disease. 9. Peripheral arterial disease. ALLERGIES: No known drug allergies. PAST SURGICAL HISTORY: 1. BTL in 1975, LSO in 1980. 2. coronary PCIs, last in 04/2019, w/ 9 stents placed at [facility]. 3. Breast biopsy negative in 2009. 4. RLE angioplasty 5. Fem-pop bypass. 6. Right fifth metatarsal amputation FAMILY HISTORY: Mother at age 52 with diabetes, coronary artery disease. Brother at age 46. Brother with myocardial infarction at age 52. Father at age 59 with coronary artery disease and myocardial infarction. 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 Lives alone, in one level home, with one step at door, and daughter lives a few houses down from her. Denies any smoking, alcohol or illicit drug use. REVIEW OF SYSTEMS: All other elements of the 10 point ROS were negative at this time, aside from positive findings in HPI PHYSICAL EXAMINATION: VITAL SIGNS: As below. HDS, afebrile GENERAL: NAD, Awake, alert, conversational NECK: Supple, no JVD, with with full range of motion no cervical adenopathy or thyromegaly. LUNGS: R posterior lung ferrer with jessica wet crackles, L clear to auscultation with good air movement. No wheezing or rhonchi HEART: RRR, S1, S2, no mrg ABDOMEN: Normoactive bowel sounds, soft, nontender, nondistended. EXTREMITIES: No cyanosis or clubbing. WWP NEURO: CN2-12 grossly intact, moving all extremities Psych: AOx3, normal affect ASSESSMENT: 74-year-old W with IDDM, CAD s/p PCI with the last PCI was done in04/2019, as well as PVD on DAPT, who presented to the emergency room with complaints of increasing fatigue and dizziness since morning now found to have R sided multifocal CAP with associated dehydration with orthostasis and WILVER on CKD. PLAN: CAP: Leukocytosis, multifocal R sided infiltrates, with weakness -sputum culture if she expectorates -urine strep and legionella antigens -procalcitonin -f/u BCx -continue ceftriaxone/doxy -covid 19 PCR was negative WILVER on CKD: likely prerenal with noted orthostasis -s/p 1L NS, monitor AM BMP -replete lytes PRN Chronic anemia: Stable PVD: - Continue statin and DAPT IDDM: -consistent carbohydrate diet, 2g salt -resume home Levemir -sliding scale insulin -hold metformin and liraglutide -FSBG AC/HS -hypoglycemia protocol Hypertension: -continue home coreg, also on aldactone CAD with nine coronary stents placed, last in 04/2019 -continue home DAPT and lipitor HLD. -Continue home lipitor GERD: -continue home BID PPI DVT ppx: With SCDs and heparin SQ Expected length of stay is greater than 2 midnights. Vital Signs Vital Signs Date Time Temp Pulse Resp B/P (MAP) Pulse Ox O2 Delivery O2 Flow Rate FiO2 09/04/19 01:15 98.1 97 17 166/66 (99) 96 Room Air Laboratory Data Labs 24H Laboratory Tests 2 09/03/19 19:39: Immature Granulocyte % (Auto) 0.6, Neutrophils (%) (Auto) 86.0H, Lymphocytes (%) (Auto) 8.5L, Monocytes (%) (Auto) 4.6, Eosinophils (%) (Auto) 0.1, Basophils (%) (Auto) 0.2, Neutrophils # (Auto) 14.6H, Lymphocytes # (Auto) 1.4L, Monocytes # (Auto) 0.8, Eosinophils # (Auto) 0.0, Basophils # (Auto) 0.0, Nucleated Red Blood Cells % (auto) 0.0, Prothrombin Time 14.0, Prothromb Time International Ratio 1.11, Anion Gap 12, Glomerular Filtration Rate 35.5L, Calcium Level 8.3L, Total Bilirubin 0.9, Aspartate Amino Transf (AST/SGOT) 22, Alanine Aminotransferase (ALT/SGPT) 24, Alkaline Phosphatase 52, Total Creatine Kinase 7 0, Creatine Kinase MB 1.0, Creatine Kinase MB Relative Index 1.43, Troponin I < 0.02, Total Protein 6.7, Albumin 3.4, Albumin/Globulin Ratio 1.03 09/03/19 20:43: Lactic Acid Level 2.6*H 09/03/19 21:04: Coronavirus (COVID-19)(PCR) NEGATIVE 09/04/19 00:56: Lactic Acid Followup at 4 Hours 1.8 CBC/BMP Laboratory Tests 09/03/19 19:39 Microbiology Microbiology 09/03/19 Respiratory Virus Panel (PCR) ([facility]) - Final, Complete 09/03/19 Blood Culture, Received Pending 09/03/19 Blood Culture, Received Pending Home Medications Scheduled Aspirin (Aspirin EC) 81 Mg Tablet.dr, 81 MG PO DAILY Atorvastatin Calcium (Atorvastatin Calcium) 80 Mg Tablet, 80 MG PO QHS Carvedilol (Carvedilol) 25 Mg Tablet, 12.5 MG PO BID Clopidogrel Bisulfate (Clopidogrel) 75 Mg Tablet, 75 MG PO DAILY Duloxetine Hcl (Duloxetine HCl) 60 Mg Capsule.dr, 60 MG PO QPM Gabapentin (Gabapentin) 800 Mg Tablet, 800 MG PO QPM Insulin Detemir (Levemir) 100 Unit/1 Ml Vial, 30 UNITS SC QHS Liraglutide (Victoza 3-Lele) 0.6 Mg/0.1 Ml Pen.injctr, 1.8 MG SC DAILY Metformin HCl (Metformin HCl) 1,000 Mg Tablet, 1,000 MG PO QAM Metformin HCl (Metformin HCl) 1,000 Mg Tablet, 1,500 MG PO QPM Pantoprazole Sodium (Pantoprazole Sodium) 40 Mg Tablet.dr, 40 MG PO BID Spironolactone (Spironolactone) 25 Mg Tablet, 12.5 MG PO DAILY Allergies Coded Allergies: No Known Allergies (Verified , 07/22/07) A-FIB/CHADSVASC A-FIB History Current/History of A-Fib/PAF?: No Current PO Anticoag Therapy: No Age/Risk Factor Scoring CHADSVASC: CHADSVASC Response (Comments) Value Age Risk Factor Age 65-74 years old 1 Gender Risk Factor Female 1 Hx of CHF No 0 Hx of HTN Yes 1 Hx of Stroke/TIA/or VTE No 0 Hx of Diabetes Yes 1 Hx of Vascular Disease Yes 1 Total 5 Treatment Treatment ordered: NONE Reason Anticoagulant not given: Not indicated/[id number] AMBREEN GOLDMAN MD September 04, 2019 02:56
[2019-09-04] MEDS: LEVEMIR (INSULIN DETEMIR) 1 UNITS/0.01ML SC SCH ×2 (03:20→20:24)
[2019-09-04] MEDS: HEPARIN SOD (PORCINE) 5000UNITS/ML VIAL (J1644 PER 1000UNITS) SC SCH ×3 (03:20→20:23)
[2019-09-04 06:00] VITALS: BP 164/66
[2019-09-04 06:23] LABS: HEMATOCRIT 31.2 % (36.0-47.0); HEMOGLOBIN 10.3 g/dl (12.0-15.5); MEAN CORPUSCULAR HEMOGLOBIN 28.6 pg (27.0-33.0); MEAN CORPUSCULAR VOLUME 86.7 fl (80.0-96.0); PLATELET COUNT, AUTOMATED 199 10^3/uL (150-450); WHITE BLOOD COUNT 13.2 10^3/uL (4.0-10.0)
[2019-09-04 06:54] LABS: CALCIUM LEVEL 8.2 MG/DL (8.8-10.2); CREATININE FOR GFR 1.08 MG/DL (0.55-1.30); GLOMERULAR FILTRATION RATE 53.1 (>39); MAGNESIUM LEVEL 1.2 MG/DL (1.8-2.4); POTASSIUM SERUM 3.5 MEQ/L (3.5-5.1)
[2019-09-04] MEDS: HumaLOG INSULIN (NovoLOG) PER UNIT SC SCH ×4 (09:39→21:00)
[2019-09-04] MEDS: ASPIRIN 81 MG ENTERIC TAB PO SCH (10:23)
[2019-09-04] MEDS: SPIRONOLACTONE 12.5MG PER 1/2 TABLET PO SCH (10:23)
[2019-09-04] MEDS: PANTOPRAZOLE 40MG TAB (PROTONIX) PO SCH ×2 (10:23→20:24)
[2019-09-04] MEDS: CARVedilol 12.5 MG TAB PO SCH ×2 (10:24→20:24)
[2019-09-04] MEDS: CLOPIDOGREL 75 MG TAB PO SCH (10:24)
[2019-09-04] MEDS: cefTRIAXone SOD 2 GM in D5W MINI-BAG PLUS 50 ML IV SCH (10:24)
[2019-09-04] MEDS: DOXYCYCLINE HYCLATE 100 MG in D5W MINI-BAG PLUS 100 ML IV SCH ×2 (11:18→20:23)
--- NOTE | 2019-09-04 12:03 | IPNPDOC ---
Date Seen The patient was seen on 09/04/19. Progress Note SUBJECTIVE: pt had no o/n events, feels well, no chest pain, shortness of breath, nausea, vomiting, diarrhea. Upon PT eval, clear. OBJECTIVE PHYSICAL EXAMINATION: VITAL SIGNS: Please see below. GENERAL: No distress HEENT: Normocephalic, atraumatic, moist mucous membranes NECK: Supple CARDIOVASCULAR EXAMINATION: S1, S2 RESPIRATORY EXAMINATION: diminished ABDOMINAL EXAMINATION: Soft, nontender, nondistended, positive bowel sounds EXTREMITIES: [no] edema SKIN: No rash NEUROLOGICAL EXAMINATION: Alert and oriented 3, no focal deficits PSYCHIATRIC EXAMINATION: Calm and cooperative, appropriate affect LABORATORY DATA, IMAGING STUDIES, MICROBIOLOGY: Please see below. Assessment and plan: Pt is a 74-yoF with PMH of IDDM, located by nephropathy and neuropathy, CKD3, CAD s/p PCI (with 9 stents,most recent in 04/2019), PVD on DAPT, HTN/HLD, anxiety, GERD, chronic foot ulcer who presented R sided multifocal CAP located by hypovolemia with orthostasis and WILVER on CKD. # CAP: neg Resp panel, COVID screen neg -f/u blood cx obtained 09/03/19, Mycoplasma IgG and IGM, pending sputum culture, urine strep and legionella antigens, procalcitonin -continue ceftriaxone/doxy x7 day course , transition to by mouth when able, PT, OT eval #WILVER on CKD3: likely hypovolemia/prerenal from dehydration with noted orthostasis, improved (back to baseline) -will cosider gentle hydration, monitor BMP, replete lytes PRN #hypomag: replace and monitor #HFpEF: Continue gentle hydration for WILVER, her input and output -echo on 2012 reveals diastolic dysfunction stage I #IDDM: consistent carbohydrate diet, 2g salt, resume home Levemir, ISS, hold m etformin and liraglutide -FSBG AC/HS, hypoglycemia protocol #PVD/CAD/HLD: cont home statin and DAPT #Chronic anemia: Stable #HTN: continue home coreg,aldactone #GERD: continue home BID PPI DVT ppx: freq ambulation Dispo: plan DC home 09/05/19 VS, I&O, 24H, Fishbone Vital Signs/I&O Vital Signs Date Time Temp Pulse Resp B/P (MAP) Pulse Ox O2 Delivery O2 Flow Rate FiO2 09/04/19 06:00 98.1 94 17 164/66 (98) 96 Room Air I&O- Last 24 Hours up to 6 AM 09/04/19 06:00 Intake Total 1300 ml Output Total 1050 ml Balance 250 ml Laboratory Data 24H LABS Laboratory Tests 2 09/03/19 19:39: Immature Granulocyte % (Auto) 0.6, Neutrophils (%) (Auto) 86.0H, Lymphocytes (%) (Auto) 8.5L, Monocytes (%) (Auto) 4.6, Eosinophils (%) (Auto) 0.1, Basophils (%) (Auto) 0.2, Neutrophils # (Auto) 14.6H, Lymphocytes # (Auto) 1.4L, Monocytes # (Auto) 0.8, Eosinophils # (Auto) 0.0, Basophils # (Auto) 0.0, Nucleated Red Blood Cells % (auto) 0.0, Prothrombin Time 14.0, Prothromb Time International Ratio 1.11, Anion Gap 12, Glomerular Filtration Rate 35.5L, Calcium Level 8.3L, Total Bilirubin 0.9, Aspartate Amino Transf (AST/SGOT) 22, Alanine Aminotransferase (ALT/SGPT) 24, Alkaline Phosphatase 52, Total Creatine Kinase 70, Creatine Kinase MB 1.0, Creatine Kinase MB Relative Index 1.43, Troponin I < 0.02, Total Protein 6.7, Albumin 3.4, Albumin/Globulin Ratio 1.03 09/03/19 20:43: Lactic Acid Level 2.6*H 09/03/19 21:04: Coronavirus (COVID-19)(PCR) NEGATIVE 09/04/19 00:56: Lactic Acid Followup at 4 Hours 1.8 09/04/19 06:02: Nucleated Red Blood Cells % (auto) 0.0, Anion Gap 8, Glomerular Filtration Rate 53.1, Calcium Level 8.2L, Magnesium Level 1.2L CBC/BMP Laboratory Tests 09/03/19 19:39 09/04/19 06:02 Microbiology Microbiology 09/03/19 Respiratory Virus Panel (PCR) ([facility]) - Final, Complete 09/03/19 Blood Culture, Received Pending 09/03/19 Blood Culture, Received Pending AUGUSTIN COOPER MD September 04, 2019 07:27
[2019-09-04] MEDS ORDERED: MAG SULF 1GM/100ML (MAG RUN) 1 GM in IV 1 EA IV ONE ×2 (13:00→14:00)
[2019-09-04 20:00] VITALS: BP 169/71
[2019-09-04] MEDS: DULoxetine 30 MG CAP (CYMBALTA) PO SCH (20:24)
[2019-09-04] MEDS: GABAPENTIN 400 MG CAP PO SCH (20:24)
[2019-09-04] MEDS: ATORVASTATIN 20 MG TAB PO SCH (20:25)
--- NOTE | 2019-09-04 22:09 | ECGEPIP ---
[facility] - ED Test Date: 2019-09-03 Pat Name: MIREILLE RODAS Department: Room: [place] [address] Gender: Female Healthcare Manager: florencio : 1945 Requested By: PA Chambers Order Number: [id number] Reading MD: Amador Lassiter Measurements Intervals [place] Rate: 89 P: 61 MA: 155 QRS: -6 QRSD: 99 T: 68 QT: 398 QTc: 486 Interpretive Statements SINUS RHYTHM POOR R WAVE PROGRESSION NONSPECIFIC T-WAVE ABNORMALITY POSSIBLE PRIOR INFERIOR INFARCT SIMILAR TO 06/30/19 Electronically Signed on 09-04-2019 22:09:34 EDT by Amador Lassiter
[2019-09-05 06:15] LABS: HEMATOCRIT 31.3 % (36.0-47.0); HEMOGLOBIN 10.1 g/dl (12.0-15.5); MEAN CORPUSCULAR HEMOGLOBIN 28.2 pg (27.0-33.0); MEAN CORPUSCULAR HGB CONC 32.3 g/dl (32.0-36.5); MEAN CORPUSCULAR VOLUME 87.4 fl (80.0-96.0); PLATELET COUNT, AUTOMATED 211 10^3/uL (150-450); RED BLOOD COUNT 3.58 10^6/uL (4.00-5.40); WHITE BLOOD COUNT 7.6 10^3/uL (4.0-10.0)
[2019-09-05 06:25] VITALS: BP 184/81
[2019-09-05 06:39] LABS: BLOOD UREA NITROGEN 19 MG/DL (7-18); CALCIUM LEVEL 8.2 MG/DL (8.8-10.2); CARBON DIOXIDE LEVEL 27 MEQ/L (21-32); CHLORIDE LEVEL 107 MEQ/L (98-107); CREATININE FOR GFR 0.96 MG/DL (0.55-1.30); GLOMERULAR FILTRATION RATE > 60.0 (>39); GLUCOSE, FASTING 133 MG/DL (70-100); MAGNESIUM LEVEL 1.7 MG/DL (1.8-2.4); POTASSIUM SERUM 3.7 MEQ/L (3.5-5.1); SODIUM LEVEL 142 MEQ/L (136-145)
--- NOTE | 2019-09-05 07:50 | DS.PDOC ---
Discharge Summary General Date of Admission September 03, 2019 at 22:16 Date of Discharge 09/05/19 Specialist/Consultants Involve: A Discharge Summary PROCEDURES PERFORMED DURING STAY: None. ADMITTING DIAGNOSES: 1. CAP. DISCHARGE DIAGNOSES: 1. CAP, WILVER COMPLICATIONS/CHIEF COMPLAINT: Pneumonia. HISTORY OF PRESENT ILLNESS/HOSPITAL COURSE: Pt is a 74-yoF with PMH of IDDM, located by nephropathy and neuropathy, CKD3, CAD s/p PCI (with 9 stents,most recent in 04/2019), PVD on DAPT, HTN/HLD, anxiety, GERD, chronic foot ulcer who presented R sided CAP and hypovolemia with orthostasis and WILVER on CKD. During hospitalization, patient's labs include neg Resp panel, COVID screen neg, pro-calcitonin of 1.34, neg blood cultures obtained 09/03/19, Mycoplasma IgG and IGM, pending sputum culture, urine strep and legionella antigens pending. PT eval cleared patient, no rehabilitation. He will be discharged on a total of 7 day course of antibiotics. WILVER on CKD3 is likely secondary to hypovolemia/prerenal from dehydration with noted orthostasis, which is now resolved. She was also noted to be hypomagnesemic, is replaced, did discharge. Magnesium was 1.7, and was replaced prior to discharge. Patient's blood pressure was elevated throughout hospitalization was ranging systolics of 160s to 180s, will increase Coreg from 12 to twice a day to 25. No other changes to home medications, follow-up with PCP in 1 week, all questions were answered. VITAL SIGNS: Please see below. GENERAL: No distress HEENT: Normocephalic, atraumatic, moist mucous membranes NECK: Supple CARDIOVASCULAR EXAMINATION: S1, S2 RESPIRATORY EXAMINATION: diminished ABDOMINAL EXAMINATION: Soft, nontender, nondistended, positive bowel sounds EXTREMITIES: [no] edema SKIN: No rash NEUROLOGICAL EXAMINATION: Alert and oriented 3, no focal deficits PSYCHIATRIC EXAMINATION: Calm and cooperative, appropriate affect LABORATORY DATA, IMAGING STUDIES, MICROBIOLOGY: Please see below. DISCHARGE CONDITION: Stable. TIME SPENT ON DISCHARGE: 32 minutes. Vital Signs/I&Os Vital Signs Date Time Temp Pulse Resp B/P (MAP) Pulse Ox O2 Delivery O2 Flow Rate FiO2 09/05/19 06:25 98.8 82 20 184/81 (115) 97 Room Air I&O- Last 24 Hours up to 6 AM 09/05/19 06:00 Intake Total 1090 ml Output Total 800 ml Balance 290 ml Laboratory Data Labs 24H Laboratory Tests 2 09/04/19 11:38: Bedside Glucose (Misc Panel) 212H 09/04/19 15:51: 09/04/19 16:32: Bedside Glucose (Misc Panel) 138H 09/04/19 20:09: Bedside Glucose (Misc Panel) 169H 09/05/19 05:46: Nucleated Red Blood Cells % (auto) 0.0, Anion Gap 8, Glomerular Filtration Rate > 60.0, Calcium Level 8.2L, Magnesium Level 1.7L CBC/BMP Laboratory Tests 09/05/19 05:46 FSBS Laboratory Tests Test 09/04/19 11:38 09/04/19 16:32 09/04/19 20:09 Range/Units Bedside Glucose (Misc Panel) 212 138 169 83-110 MG/DL Microbiology Microbiology 09/03/19 Respiratory Virus Panel (PCR) ([facility]) - Final, Complete 09/03/19 Blood Culture - Preliminary, Resulted No growth after 24 hours . All specim... 09/03/19 Blood Culture - Preliminary, Resulted No growth after 24 hours . All specim... Discharge Medications Scheduled Aspirin (Aspirin EC) 81 Mg Tablet.dr, 81 MG PO DAILY, (Reported) Atorvastatin Calcium (Atorvastatin Calcium) 80 Mg Tablet, 80 MG PO QHS, (Reported) Carvedilol (Carvedilol) 25 Mg Tablet, 12.5 MG PO BID, (Reported) Clopidogrel Bisulfate (Clopidogrel) 75 Mg Tablet, 75 MG PO DAILY, (Reported) Duloxetine Hcl (Duloxetine HCl) 60 Mg Capsule.dr, 60 MG PO QPM, (Reported) Gabapentin (Gabapentin) 800 Mg Tablet, 800 MG PO QPM, (Reported) Insulin Detemir (Levemir) 100 Unit/1 Ml Vial, 30 UNITS SC QHS, (Reported) Liraglutide (Victoza 3-Lele) 0.6 Mg/0.1 Ml Pen.injctr, 1.8 MG SC DAILY, (Reported) Metformin HCl (Metformin HCl) 1,000 Mg Tablet, 1,000 MG PO QAM, (Reported) Metformin HCl (Metformin HCl) 1,000 Mg Tablet, 1,500 MG PO QPM, (Reported) Pantoprazole Sodium (Pantoprazole Sodium) 40 Mg Tablet.dr, 40 MG PO BID, (Reported) Spironolactone (Spironolactone) 25 Mg Tablet, 12.5 MG PO DAILY, (Reported) Allergies Coded Allergies: No Known Allergies (Verified , 07/22/07) AUGUSTIN COOPER MD September 05, 2019 07:40
[2019-09-05] MEDS ORDERED: MAG SULF 1GM/100ML (MAG RUN) 1 GM in IV 1 EA IV ONE (08:00)
[2019-09-05] MEDS: HumaLOG INSULIN (NovoLOG) PER UNIT SC SCH ×2 (08:12→12:23)
[2019-09-05] MEDS: SPIRONOLACTONE 12.5MG PER 1/2 TABLET PO SCH (08:13)
[2019-09-05] MEDS: PANTOPRAZOLE 40MG TAB (PROTONIX) PO SCH (08:13)
[2019-09-05] MEDS: ASPIRIN 81 MG ENTERIC TAB PO SCH (08:13)
[2019-09-05] MEDS: CLOPIDOGREL 75 MG TAB PO SCH (08:13)
[2019-09-05] MEDS ORDERED: CEFD300C PO (08:16)
[2019-09-05] MEDS ORDERED: CARV25TA PO (08:16)
[2019-09-05] MEDS ORDERED: DOXY-350 PO (08:16)
[2019-09-05 08:17] VITALS: BP 143/67
[2019-09-05] MEDS ORDERED: CARVedilol 12.5 MG TAB PO SCH (09:00)
[2019-09-05] MEDS: DOXYCYCLINE HYCLATE 100 MG in D5W MINI-BAG PLUS 100 ML IV SCH (10:26)
[2019-09-05] MEDS: cefTRIAXone SOD 2 GM in D5W MINI-BAG PLUS 50 ML IV SCH (11:30)
[2019-09-05 14:07] LABS: MYCOPLASMA PNEUMONIAE IgG 390 U/mL (0-99); MYCOPLASMA PNEUMONIAE IgM <770 U/mL (0-769)
[2019-09-10 00:08] LABS: BODY FLUID CULTURE Not indicated. (.); LEGIONELLA ANTIGEN URINE Negative (Negative); ORGANISM ID Not indicated. (.); SPECIMEN SOURCE Urine (.); URINE STREP PNEUMONIAE ANTIGEN Negative (Negative)
== END 2019-09-05 15:35 | disposition home health service (06) | DRG 194 ==
LOC: M ED 18:09 → EDBD 18:09 → M ED INP 22:16 → ENRESERV 09-04 00:15 → M MS5PR 09-04 01:04
PROVIDERS: ADMIT Internal Medicine; ATTEND Family Medicine
DX: J18.9 Pneumonia, unspecified organism (principal); N17.9 Acute kidney failure, unspecified; I50.32 Chronic diastolic (congestive) heart failure; I13.0 Hypertensive heart and chronic kidney disease with heart failure and stage 1 through stage 4 chronic kidney disease, or unspecified chronic kidney disease; I25.10 Atherosclerotic heart disease of native coronary artery without angina pectoris; E11.22 Type 2 diabetes mellitus with diabetic chronic kidney disease; E11.40 Type 2 diabetes mellitus with diabetic neuropathy, unspecified; N18.3 Chronic kidney disease, stage 3 (moderate); E78.5 Hyperlipidemia, unspecified; F41.9 Anxiety disorder, unspecified; E11.621 Type 2 diabetes mellitus with foot ulcer; K21.9 Gastro-esophageal reflux disease without esophagitis; E11.51 Type 2 diabetes mellitus with diabetic peripheral angiopathy without gangrene; Z95.5 Presence of coronary angioplasty implant and graft; Z89.421 Acquired absence of other right toe(s); D64.9 Anemia, unspecified; Z79.82 Long term (current) use of aspirin; Z79.02 Long term (current) use of antithrombotics/antiplatelets; Z79.4 Long term (current) use of insulin; Z79.899 Other long term (current) drug therapy; Z11.59 Encounter for screening for other viral diseases

== ENCOUNTER → 2019-10-01 | Outpatient (CLI) | payer MEDICARE ==
[~2019-10-01] MED LIST changes: +CEFD300C PO; +DOXY-350 PO; +SPIR-10 PO
--- NOTE | 2019-10-01 13:43 | REP ---
REASON: FOLLOWUP PNEUMONIA. Latest prior for comparison 09/05/2019 a portable exam which showed right lower and right upper lobe opacities. FINDINGS: The superior mediastinal structures are midline. The cardiac silhouette is unremarkable in size, shape, and position. The diaphragmatic surfaces of the lungs are regular, and the costophrenic angles are clear. The pulmonary ferrer are clear. The imaged osseous structures are intact. IMPRESSION: There is no acute cardiopulmonary disease. Electronically Signed by Edgardo Robertson DO 10/01/2019 05:05 P
== END ==
LOC: M CLY 11:09
PROVIDERS: ATTEND Nurse Practitioner Family
DX: Z09 Encounter for follow-up examination after completed treatment for conditions other than malignant neoplasm (principal); Z87.09 Personal history of other diseases of the respiratory system

== ENCOUNTER 2019-10-06 12:32 | Emergency (ER) | payer MEDICARE ==
[~2019-10-06] VITALS: Ht 160 cm; Wt 59.3 kg
[2019-10-06] MEDS ORDERED: ASPIRIN 325 MG TAB PO ONE (13:30)
[2019-10-06 13:40] LABS: BASO % 0.6 % (0.0-1.0); EOS # 0.2 10^3/uL (0.0-0.5); EOS % 3.4 % (0.0-3.0); HEMATOCRIT 34.5 % (36.0-47.0); HEMOGLOBIN 10.9 g/dl (12.0-15.5); LYMPH # 1.8 10^3/uL (1.5-5.0); LYMPH % 25.2 % (24.0-44.0); MEAN CORPUSCULAR HEMOGLOBIN 28.3 pg (27.0-33.0); MEAN CORPUSCULAR HGB CONC 31.6 g/dl (32.0-36.5); MEAN CORPUSCULAR VOLUME 89.6 fl (80.0-96.0); MONO # 0.6 10^3/uL (0.0-0.8); NEUTROPHILS # 4.4 10^3/uL (1.5-8.5); NEUTROPHILS % 62.4 % (36.0-66.0); PLATELET COUNT, AUTOMATED 246 10^3/uL (150-450); RED BLOOD COUNT 3.85 10^6/uL (4.00-5.40); WHITE BLOOD COUNT 7.1 10^3/uL (4.0-10.0)
[2019-10-06 13:50] LABS: INR 1.07; PROTHROMBIN TIME 13.6 SECONDS (11.8-14.0)
[2019-10-06 14:08] LABS: BILIRUBIN,DIRECT 0.2 MG/DL (0.0-0.2); BILIRUBIN,TOTAL 0.4 MG/DL (0.2-1.0); CK-MB VALUE MASS 3.3 NG/ML (<3.6); MB/CK RELATIVE INDEX 2.97 (< OR =4); TOTAL PROTEIN 7.1 GM/DL (6.4-8.2); TROPONIN I 0.05 NG/ML (< 0.10)
--- NOTE | 2019-10-06 14:58 | REP ---
REASON: Chest pain. PRIORS: Multiple, the latest is 10/01/2019. FINDINGS: The technique utilized in obtaining the radiograph has magnified the cardiac silhouette and accentuated the interstitial markings. The superior mediastinal structures are midline. The cardiac silhouette is unremarkable in size, shape, and position. The diaphragmatic surfaces of the lungs are regular, and the costophrenic angles are clear. The pulmonary ferrer are clear. The imaged osseous structures are intact. IMPRESSION: There is no acute cardiopulmonary disease. Electronically Signed by Edgardo Robertson DO 10/06/2019 04:13 P
[2019-10-06 15:12] LABS: CALCIUM LEVEL 8.8 MG/DL (8.8-10.2); CREATININE FOR GFR 1.08 MG/DL (0.55-1.30); GLOMERULAR FILTRATION RATE 53.1 (>39)
[2019-10-06] MEDS ORDERED: TRAN1TAB47 PO (15:49)
[2019-10-06 17:25] VITALS: BP 150/67
--- NOTE | 2019-10-06 21:40 | ECGEPIP ---
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
== END 2019-10-06 17:27 | disposition short-term general hospital (02) ==
LOC: M ED 12:32
DX: I20.0 Unstable angina (principal); I11.9 Hypertensive heart disease without heart failure; E11.9 Type 2 diabetes mellitus without complications; E78.5 Hyperlipidemia, unspecified; Z95.5 Presence of coronary angioplasty implant and graft; Z79.899 Other long term (current) drug therapy; Z79.02 Long term (current) use of antithrombotics/antiplatelets; Z79.4 Long term (current) use of insulin; Z79.82 Long term (current) use of aspirin

== ENCOUNTER 2019-10-11 19:19 | Emergency (ER) | payer MEDICARE ==
[~2019-10-11] VITALS: Ht 157.5 cm; Wt 59.7 kg
[2019-10-11] MEDS ORDERED: MECLIZINE 25 MG TABLET PO ONE (20:15)
--- NOTE | 2019-10-11 20:31 | REPVR ---
PROCEDURE INFORMATION: Exam: CT Head Without Contrast Exam date and time: 10/11/2019 8:18 PM Age: 74 years old Clinical indication: Altered mental status/memory loss TECHNIQUE: Imaging protocol: Computed tomography of the head without contrast. Radiation optimization: All CT scans at this facility use at least one of these dose optimization techniques: automated exposure control; mA and/or kV adjustment per patient size (includes targeted exams where dose is matched to clinical indication); or iterative reconstruction. COMPARISON: No relevant prior studies available. FINDINGS: Brain: No intracranial mass, focal mass effect or midline shift. No acute intracranial hemorrhage. Mild decreased attenuation in periventricular/centrum semiovale white matter. No focal effacement of cortical sulci to indicate acute cortical infarct. Physiologic basal ganglia calcifications are present. Ventricles: Prominent ventricles and CSF spaces suggest parenchymal volume loss. Bones/joints: No calvarial fracture or destructive process. Sinuses: Visualized paranasal sinuses are unremarkable. Mastoid air cells: Mastoid air cells are normally aerated. Orbits: Visualized globes and orbits are unremarkable. Soft tissues: No focal extracranial soft tissue swelling. IMPRESSION: 1. No acute intracranial abnormality. 2. Mild atrophy and chronic microangiopathic change in supratentorial white matter. Electronically signed by: Isaias Meek On 10/11/2019 20:31:19 PM
[2019-10-11 20:33] LABS: BASO % 0.4 % (0.0-1.0); EOS # 0.2 10^3/uL (0.0-0.5); EOS % 3.1 % (0.0-3.0); HEMATOCRIT 33.4 % (36.0-47.0); HEMOGLOBIN 10.5 g/dl (12.0-15.5); LYMPH # 2.3 10^3/uL (1.5-5.0); LYMPH % 30.9 % (24.0-44.0); MEAN CORPUSCULAR HGB CONC 31.4 g/dl (32.0-36.5); MEAN CORPUSCULAR VOLUME 89.1 fl (80.0-96.0); MONO # 0.6 10^3/uL (0.0-0.8); MONO % 8.7 % (0.0-5.0); NEUTROPHILS # 4.2 10^3/uL (1.5-8.5); NEUTROPHILS % 56.5 % (36.0-66.0); PLATELET COUNT, AUTOMATED 202 10^3/uL (150-450); RED BLOOD COUNT 3.75 10^6/uL (4.00-5.40); WHITE BLOOD COUNT 7.4 10^3/uL (4.0-10.0)
[2019-10-11 20:57] LABS: ACETAMINOPHEN LEVEL < 2.0 UG/ML (10.0-30.0); ALBUMIN 3.8 GM/DL (3.2-5.2); ALT/SGPT 35 U/L (12-78); BILIRUBIN,DIRECT 0.1 MG/DL (0.0-0.2); BILIRUBIN,TOTAL 0.4 MG/DL (0.2-1.0); BLOOD UREA NITROGEN 29 MG/DL (7-18); CALCIUM LEVEL 8.6 MG/DL (8.8-10.2); CARBON DIOXIDE LEVEL 25 MEQ/L (21-32); CHLORIDE LEVEL 106 MEQ/L (98-107); CK-MB VALUE MASS 11.3 NG/ML (<3.6); CPK CREATINE PHOSPHOKINASE 241 U/L (26-192); CREATININE FOR GFR 1.12 MG/DL (0.55-1.30); GLOMERULAR FILTRATION RATE 50.9 (>39); GLUCOSE, FASTING 88 MG/DL (70-100); MB/CK RELATIVE INDEX 4.69 (< OR =4); POTASSIUM SERUM 4.6 MEQ/L (3.5-5.1); SALICYLATE LEVEL < 1.7 MG/DL (5.0-30.0); SODIUM LEVEL 139 MEQ/L (136-145); TOTAL PROTEIN 7.2 GM/DL (6.4-8.2); TROPONIN I 3.42 NG/ML (< 0.10)
[2019-10-11] MEDS ORDERED: ASPIRIN 325 MG TAB PO ONE (21:30)
[2019-10-11 21:39] LABS: INR 1.12; PROTHROMBIN TIME 14.1 SECONDS (11.8-14.0)
[2019-10-11] MEDS ORDERED: HEPARIN DRIP 25,000 UNITS in IV 1 EA IV SCH (21:52)
[2019-10-11] MEDS ORDERED: HEPARIN 25,000 UNITS/250 ML D5W BAG (100 UNITS/ML) (J1644 PER 1000UNITS) As Ordered ONE (21:55)
[2019-10-11] MEDS ORDERED: HEPARIN SOD (PORCINE) 5000UNITS/ML VIAL (J1644 PER 1000UNITS) As Ordered ONE (21:55)
[2019-10-11] MEDS ORDERED: HEPARIN SOD (PORCINE) 5000UNITS/ML VIAL (J1644 PER 1000UNITS) IV ONE (22:00)
[2019-10-11] MEDS ORDERED: LABETALOL 100MG/20ML VIAL IV STA (22:13)
[2019-10-11 22:14] VITALS: BP 198/89
[2019-10-11 22:21] VITALS: BP 213/91
--- NOTE | 2019-10-13 15:19 | ECGEPIP ---
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
== END 2019-10-11 22:40 | disposition short-term general hospital (02) ==
LOC: M ED 19:19
DX: I21.4 Non-ST elevation (NSTEMI) myocardial infarction (principal); I11.9 Hypertensive heart disease without heart failure; E11.9 Type 2 diabetes mellitus without complications; Z79.899 Other long term (current) drug therapy; Z79.4 Long term (current) use of insulin; Z79.82 Long term (current) use of aspirin
CPT/HCPCS: 70450; 80048; 80076; 82550; 82553; 84484; 85025; 85610; 93005; 93041; 94760; 96365; 96366; 96375; 99285; G0480; J1644

== ENCOUNTER 2019-10-31 19:32 | Emergency (ER) | payer MEDICARE ==
[~2019-10-31] VITALS: Ht 157.5 cm; Wt 58.6 kg
[~2019-10-31 19:32] MED LIST changes: +PANT40TA29 PO; -PANT40TA3 PO
[2019-10-31] MEDS ORDERED: BRIL90TA PO (19:43)
[2019-10-31 20:32] LABS: BASO % 0.4 % (0.0-1.0); EOS # 0.1 10^3/uL (0.0-0.5); EOS % 1.6 % (0.0-3.0); HEMATOCRIT 32.9 % (36.0-47.0); HEMOGLOBIN 10.6 g/dl (12.0-15.5); LYMPH # 1.4 10^3/uL (1.5-5.0); LYMPH % 19.9 % (24.0-44.0); MEAN CORPUSCULAR HEMOGLOBIN 28.4 pg (27.0-33.0); MEAN CORPUSCULAR HGB CONC 32.2 g/dl (32.0-36.5); MEAN CORPUSCULAR VOLUME 88.2 fl (80.0-96.0); MONO # 0.6 10^3/uL (0.0-0.8); MONO % 8.6 % (0.0-5.0); NEUTROPHILS # 4.7 10^3/uL (1.5-8.5); NEUTROPHILS % 69.2 % (36.0-66.0); PLATELET COUNT, AUTOMATED 261 10^3/uL (150-450); RED BLOOD COUNT 3.73 10^6/uL (4.00-5.40); WHITE BLOOD COUNT 6.8 10^3/uL (4.0-10.0)
[2019-10-31 21:05] LABS: BILIRUBIN,DIRECT 0.1 MG/DL (0.0-0.2); BILIRUBIN,TOTAL 0.6 MG/DL (0.2-1.0); THYROID STIMULATING HORMONE 4.11 uIU/ML (0.358-3.740); TOTAL PROTEIN 7.6 GM/DL (6.4-8.2)
[2019-10-31] MEDS ORDERED: MECLIZINE 25 MG TABLET PO ONE (21:30)
--- NOTE | 2019-10-31 21:41 | ECGEPIP ---
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
[2019-10-31] MEDS ORDERED: NS 500 ML IV ONE (22:00)
[2019-10-31 22:15] VITALS: BP 187/82
[2019-10-31] MEDS ORDERED: MECL1TAB31 PO (22:17)
[2019-11-04] MEDS ORDERED: RANO500T2 PO (15:19)
== END 2019-10-31 22:49 | disposition home or self-care (01) ==
LOC: M ED 19:32
DX: H83.09 Labyrinthitis, unspecified ear (principal); E11.9 Type 2 diabetes mellitus without complications; Z79.4 Long term (current) use of insulin; Z79.899 Other long term (current) drug therapy; Z95.1 Presence of aortocoronary bypass graft; Z99.89 Dependence on other enabling machines and devices

== ENCOUNTER 2019-11-04 12:22 | Inpatient (IN) | payer MEDICARE ==
[~2019-11-04] VITALS: Ht 157.5 cm; Wt 58.9 kg
[~2019-11-04 12:22] MED LIST changes: +BRIL90TA PO; +MECL1TAB31 PO; -PANT40TA29 PO; +PANT40TA3 PO
[2019-11-04 13:21] LABS: VENOUS BASE EXCESS -2.6 (-2.0-2.0); VENOUS HCO3 23.3 MEQ/L (23.0-27.0); VENOUS O2 SATURATION 53.6 % (60.0-80.0); VENOUS PARTIAL PRESSURE O2 32.2 mmHg (30.0-50.0); VENOUS PH 7.332 UNITS (7.330-7.430); VENOUS STANDARD HCO3 21.5 MEQ/L; VENOUS TOTAL CO2 24.7 MEQ/L (24.0-28.0)
[2019-11-04 13:28] LABS: BASO % 0.6 % (0.0-1.0); EOS # 0.1 10^3/uL (0.0-0.5); EOS % 2.2 % (0.0-3.0); HEMATOCRIT 33.4 % (36.0-47.0); HEMOGLOBIN 10.6 g/dl (12.0-15.5); LYMPH # 1.1 10^3/uL (1.5-5.0); LYMPH % 17.4 % (24.0-44.0); MEAN CORPUSCULAR HEMOGLOBIN 28.5 pg (27.0-33.0); MEAN CORPUSCULAR HGB CONC 31.7 g/dl (32.0-36.5); MEAN CORPUSCULAR VOLUME 89.8 fl (80.0-96.0); MONO # 0.6 10^3/uL (0.0-0.8); MONO % 8.7 % (0.0-5.0); NEUTROPHILS # 4.5 10^3/uL (1.5-8.5); NEUTROPHILS % 70.8 % (36.0-66.0); PLATELET COUNT, AUTOMATED 244 10^3/uL (150-450); RED BLOOD COUNT 3.72 10^6/uL (4.00-5.40); WHITE BLOOD COUNT 6.3 10^3/uL (4.0-10.0)
[2019-11-04] MEDS ORDERED: diazePAM 10MG/2ML SYRINGE (J3360 PER 5MG) IV ONE (13:45)
[2019-11-04 14:29] LABS: ALBUMIN 3.9 GM/DL (3.2-5.2); ALT/SGPT 24 U/L (12-78); BILIRUBIN,DIRECT 0.1 MG/DL (0.0-0.2); BILIRUBIN,TOTAL 0.5 MG/DL (0.2-1.0); BLOOD UREA NITROGEN 27 MG/DL (7-18); CALCIUM LEVEL 9.2 MG/DL (8.8-10.2); CARBON DIOXIDE LEVEL 25 MEQ/L (21-32); CHLORIDE LEVEL 104 MEQ/L (98-107); CK-MB VALUE MASS 2.1 NG/ML (<3.6); CPK CREATINE PHOSPHOKINASE 89 U/L (26-192); GLUCOSE, FASTING 95 MG/DL (70-100); MB/CK RELATIVE INDEX 2.36 (< OR =4); POTASSIUM SERUM 4.3 MEQ/L (3.5-5.1); SODIUM LEVEL 137 MEQ/L (136-145); TOTAL PROTEIN 7.1 GM/DL (6.4-8.2); TROPONIN I < 0.02 NG/ML (< 0.10)
[2019-11-04] MEDS ORDERED: LABETALOL 100MG/20ML VIAL IV STA (14:57)
[2019-11-04] MEDS ORDERED: ISOS30TA4 PO (15:19)
[2019-11-04] MEDS ORDERED: RANO500T PO (15:19)
[2019-11-04] MEDS ORDERED: CARV25TA PO (15:19)
[2019-11-04] MEDS ORDERED: MECL1TAB31 PO (15:19)
[2019-11-04] MEDS ORDERED: ACETAMINOPHEN TAB 650MG DOSE (2X325MG) PO PRN (17:00)
--- NOTE | 2019-11-04 17:13 | HPEPDOC ---
General Date of Admission 11/04/19 Date of Service: Nov 04, 2019 Chief Complaint The patient is a 74-year-old female admitted with a reason for visit of Dizziness. Source: Patient Exam Limitations: No limitations Timing/Duration: Week(s) Severity: Moderate Associated Symptoms: Dizziness History of Present Illness Patient 74 years old female with past medical history of coronary artery diseases with stent placement, type 2 diabetes, hyperlipidemia and anxiety presented to the hospital with dizziness and problem of balance. Patient states that she has been having dizziness with spinning sensation for 1 week. Also she described that when she walk she has the problem with balance with tendency to fall to the left side. Patient took meclizine without any relief. In emergency room patient was found to have negative CT head. Patient is afebrile, does not have leukocytosis. Patient denied fever, chills, chest pain, palpitations, diarrhea or dysuria. Patient denied tinnitus, ear fullness, nausea or vomiting Home Medications Scheduled Aspirin (Aspirin EC) 81 Mg Tablet.dr, 81 MG PO DAILY, (Reported) Atorvastatin Calcium (Atorvastatin Calcium) 80 Mg Tablet, 80 MG PO QHS, (Reported) Carvedilol (Carvedilol) 25 Mg Tablet, 12.5 MG PO BID, (Reported) Duloxetine Hcl (Duloxetine HCl) 60 Mg Capsule.dr, 60 MG PO QPM, (Reported) Gabapentin (Gabapentin) 800 Mg Tablet, 800 MG PO QPM, (Reported) Insulin Detemir (Levemir) 100 Unit/1 Ml Vial, 25 UNITS SC QHS, (Reported) Isosorbide Mononitrate (Isosorbide Mononitrate ER) 30 Mg Tab.er.24h, 30 MG PO DAILY, (Reported) Liraglutide (Victoza 3-Lele) 0.6 Mg/0.1 Ml Pen.injctr, 1.8 MG SC DAILY, (Reported) Meclizine HCl (Meclizine HCl) 25 Mg Tablet, 50 MG PO Q8H, (Reported) Metformin HCl (Metformin HCl) 1,000 Mg Tablet, 1,000 MG PO QAM, (Reported) Metformin HCl (Metformin HCl) 1,000 Mg Tablet, 1,500 MG PO QPM, (Reported) Pantoprazole Sodium (Pantoprazole Sodium) 40 Mg Tablet.dr, 40 MG PO BID, (Reported) Ranolazine (Ranolazine ER) 500 Mg Tab.er.12h, 500 MG PO BID, (Reported) Ticagrelor Base (Brilinta) 90 Mg Tablet, 90 MG PO BID, (Reported) Trandolapril (Trandolapril) 1 Mg Tablet, 0.5 MG PO QHS, (Reported) Allergies Coded Allergies: No Known Allergies (Verified , 07/22/07) Past Medical History Medical History DIABETES WITH CKD AND NEUROPATHY HTN CAD WITH STENTING HYPERLIPIDEMIA ANXIETY GERD PODIATRY: GAY MALHOTRA VASCULAR: DR. ALEKSANDAR REYES Surgical History BTL 1975 LSO 1980 STENT PLACED ON RIGHT LEG 2007 BREAST BIOPSY IN EACH BREAST: NEGATIVE: TIBURCIO 2009 CATARACT: DAMAR FOR [facility] 2013 COLONOSCOPY: FERNANDO: ADENOMATOUS POLYP 2014 CARDIAC CATH WITH STENTS: [facility] 04/2019 FEM/POP BYPASS STENT PLACED 09/2019 Family History I personally reviewed family history and found not pertinent Social History * Smoker: Denies Alcohol: Denies Drugs: denies A-FIB/CHADSVASC A-FIB History Current/History of A-Fib/PAF?: No Current PO Anticoag Therapy: No Review of Systems Constitutional: Denies: Chills, Fever Eyes: Denies: Pain ENT: Denies: Head Aches Skin: Denies: Rash, Lesions Pulmonary: Denies: Dyspnea Cardiovascular: Denies: Chest Pain Gastrointestinal: Denies: Nausea, Vomiting Genitourinary: Denies: Dysuria Hematologic: Denies: Bruising Endocrine: Denies: Polydipsia Musculoskeletal: Denies: Neck Pain, Back Pain Neurological: Reports: Incoordination, Other Symptoms (dizziness); Denies: Weakness Psych: Reports: Mood Normal Physical Examination General Exam: Positive: Alert, Cooperative Eye Exam: Positive: PERRLA ENT Exam: Positive: Atraumatic Neck Exam: Positive: Supple; Negative: JVD Chest Exam: Positive: Clear to auscultation Heart Exam: Positive: Rate Normal Telemetry: Positive: No significant arrhythmia Abdomen Exam: Positive: Normal bowel sounds Extremity Exam: Negative: Clubbing, Cyanosis Skin Exam: Positive: Nl turgor and temperature Neuro Exam: Positive: Strength at 5/5 X4 ext, Cranial Nerves 3-12 NL Psych Exam: Positive: Mental status NL Vital Signs Vital Signs Date Time Temp Pulse Resp B/P (MAP) Pulse Ox O2 Delivery O2 Flow Rate FiO2 11/04/19 16:02 152/72 (98) 11/04/19 14:21 82 84 85 11/04/19 14:07 16 99 Room Air 11/04/19 12:22 96.6 Laboratory Data Labs 24H Laboratory Tests 2 11/04/19 12:45: Coronavirus (COVID-19)(PCR) NEGATIVE 11/04/19 13:16: Immature Granulocyte % (Auto) 0.3, Neutrophils (%) (Auto) 70.8H, Lymphocytes (%) (Auto) 17.4L, Monocytes (%) (Auto) 8.7H, Eosinophils (%) (Auto) 2.2, Basophils (%) (Auto) 0.6, Neutrophils # (Auto) 4.5, Lymphocytes # (Auto) 1.1L, Monocytes # (Auto) 0.6, Eosinophils # (Auto) 0.1, Basophils # (Auto) 0.0, Nucleated Red Blood Cells % (auto) 0.0, Blood Gas Bicarbonate Standard 21.5, Venous Blood pH 7.332, Venous Blood Partial Pressure CO2 45.0, Venous Blood Partial Pressure O2 32.2, Venous Blood Total Carbon Dioxide 24.7, Venous Blood HCO3 23.3, Venous Blood Oxygen Saturation 53.6L, Venous Blood Base Excess -2.6L, Anion Gap 8, Glomerular Filtration Rate 52.0, Calcium Level 9.2, Total Bilirubin 0.5, Direct Bilirubin 0.1, Aspartate Amino Transf (AST/SGOT) 32, Alanine Aminotransferase (ALT/SGPT) 24, Alkaline Phosphatase 48, Total Creatine Kinase 89, Creatine Kinas e MB 2.1, Creatine Kinase MB Relative Index 2.36, Troponin I < 0.02, Total Protein 7.1, Albumin 3.9, Albumin/Globulin Ratio 1.2, Thyroid Stimulating Hormone (TSH) 2.950 CBC/BMP Laboratory Tests 11/04/19 13:16 Assessment/Plan Patient 74 years old female with past medical history of coronary artery diseases with stent placement, type 2 diabetes, hyperlipidemia and anxiety presented to the hospital with dizziness and problem of balance. Patient states that she has been having dizziness with spinning sensation for 1 week. Also she described that when she walk she has the problem with balance with tendency to fall to the left side. Patient took meclizine without any relief. In emergency room patient was found to have negative CT head. Patient is afebrile, does not have leukocytosis. Patient denied fever, chills, chest pain, palpitations, diarrhea or dysuria. Patient denied tinnitus, ear fullness, nausea or vomiting Problems (1) Dizziness Status: Acute Problem Text: Unknown etiology for now Differential diagnosis includes vestibular neuritis, labyrinthitis, benign positional vertigo, posterior CVA We will proceed with MRI and MRA. Patient had multiple risk factors for stroke including diabetes, hypertension, coronary artery diseases. Consider neurologist consult after imaging done PT/OT evaluation (2) DM2 (diabetes mellitus, type 2) Status: Chronic Problem Text: Insulin sliding scale Detemir Diabetes diet (3) Hypertension Status: Chronic Problem Text: Continue home cardioprotective medication (4) Unsteady gait Status: Acute Problem Text: See above (5) Hypertensive emergency Status: Acute Problem Text: Labetalol IV when necessary Continue home meds Plan / VTE VTE Prophylaxis Ordered?: Yes JUAN PABLO WILL DO Nov 04, 2019 17:13
[2019-11-04] MEDS ORDERED: DEXTROSE 50% 50 ML SYRINGE IV PRN (17:15)
[2019-11-04] MEDS ORDERED: GLUCAGON INJ 1MG VIAL SC PRN (17:15)
[2019-11-04] MEDS ORDERED: GLUCOSE 4GM CHEW TABLET PO PRN (17:15)
[2019-11-04] MEDS: HumaLOG INSULIN (NovoLOG) PER UNIT SC SCH ×2 (17:30→21:00)
[2019-11-04] MEDS ORDERED: PILL CUTTER 1 EACH XX PRN (17:30)
[2019-11-04] MEDS ORDERED: metFORMIN (GLUCOPHAGE) 1000 MG TABLET PO SCH (18:00)
--- NOTE | 2019-11-04 19:10 | REPVR ---
PROCEDURE INFORMATION: Exam: MR Head Without Contrast Exam date and time: 11/04/2019 6:39 PM Age: 74 years old Clinical indication: Dizziness and walking, difficulty; Additional info: CVA TECHNIQUE: Imaging protocol: MR of the head without contrast. COMPARISON: CT Head without contrast 11/04/2019 2:17 PM FINDINGS: Brain: Normal. No acute infarct. No hemorrhage. No significant white matter disease. No edema. Ventricles: Normal. No ventriculomegaly. Bones/joints: Unremarkable. Sinuses: Normal as visualized. No acute sinusitis. Mastoid air cells: Normal as visualized. No mastoid effusion. Orbits: Unremarkable. Soft tissues: Unremarkable. IMPRESSION: No acute intracranial abnormality. Electronically signed by: Bhavesh Biswas On 11/04/2019 19:10:03 PM
--- NOTE | 2019-11-04 19:17 | REPVR ---
PROCEDURE INFORMATION: Exam: MR Angiogram Head Without Contrast, Arteries Exam date and time: 11/04/2019 6:39 PM Age: 74 years old Clinical indication: Dizziness and giddiness and weakness; Additional info: CVA TECHNIQUE: Imaging protocol: MR angiogram head without contrast. Exam focused on the arteries. 3D rendering: MIP and/or 3D reconstructed images were created by the technologist. COMPARISON: CT Head without contrast 11/04/2019 2:17 PM FINDINGS: Anterior cerebral arteries: Intracranial segment is patent with no significant stenosis. No aneurysm. Right internal carotid artery: Intracranial segment is patent with no significant stenosis. No aneurysm. Right middle cerebral artery: No occlusion or significant stenosis. No aneurysm. Right posterior cerebral artery: No occlusion or significant stenosis. No aneurysm. Right vertebral artery: No occlusion or significant stenosis. No aneurysm. Left internal carotid artery: Intracranial segment is patent with no significant stenosis. No aneurysm. Left middle cerebral artery: There are two aneurysms at the bifurcation of the M1 segment of left middle cerebral artery one measuring 2 mm and the other measuring 3 mm. Left posterior cerebral artery: No occlusion or significant stenosis. No aneurysm. Left vertebral artery: No occlusion or significant stenosis. No aneurysm. Basilar artery: No occlusion or significant stenosis. No aneurysm. 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 Electronically signed by: Bhavesh Biswas On 11/04/2019 19:16:58 PM
[2019-11-04 19:30] VITALS: BP 180/82
[2019-11-04 20:00] VITALS: BP 180/82
[2019-11-04] MEDS ORDERED: SLF 3 ML SYR IV PRN (20:15)
[2019-11-04] MEDS ORDERED: LABETALOL 100MG/20ML VIAL IV PRN (21:00)
[2019-11-04] MEDS ORDERED: LEVEMIR (INSULIN DETEMIR) 1 UNITS/0.01ML SC SCH (21:00)
--- NOTE | 2019-11-04 21:00 | ECGEPIP ---
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
[2019-11-04] MEDS: ATORVASTATIN 20 MG TAB PO SCH (21:36)
[2019-11-04] MEDS: trandolapriL 1 MG TAB PO SCH (21:36)
[2019-11-04] MEDS: RANOLAZINE 500 MG ER TAB PO SCH (21:36)
[2019-11-04] MEDS: TICAGRELOR 90 MG TABLET (BRILINTA) PO SCH (21:37)
[2019-11-04] MEDS: MECLIZINE 25 MG TABLET PO SCH (21:37)
[2019-11-04] MEDS: PANTOPRAZOLE 40MG TAB (PROTONIX) PO SCH (21:37)
[2019-11-04] MEDS: HEPARIN SOD (PORCINE) 5000UNITS/ML VIAL (J1644 PER 1000UNITS) SC SCH (21:39)
[2019-11-04] MEDS: DULoxetine 30 MG CAP (CYMBALTA) PO SCH (21:39)
[2019-11-04] MEDS: GABAPENTIN 400 MG CAP PO SCH (21:39)
[2019-11-04] MEDS: CARVedilol 12.5 MG TAB PO SCH (21:39)
[2019-11-04] MEDS: LEVEMIR (INSULIN DETEMIR) 1 UNITS/0.01ML SC SCH (21:40)
[2019-11-04] MEDS: SLF 3 ML SYR IV SCH (21:47)
--- NOTE | 2019-11-04 23:29 | REP ---
CHEST: REASON FOR EXAM: Dizziness. Latest prior for comparison 10/06/2019. FINDINGS: The technique utilized in obtaining the radiograph has magnified the cardiac silhouette and accentuated the interstitial markings. The superior mediastinal structures are midline. The cardiac silhouette is unremarkable in size, shape, and position. The diaphragmatic surfaces of the lungs are regular, and the costophrenic angles are clear. The pulmonary ferrer are clear. The imaged osseous structures are intact. IMPRESSION: There is no acute cardiopulmonary disease. Electronically Signed by Edgardo Robertson DO 11/05/2019 12:37 P
--- NOTE | 2019-11-04 23:44 | REP ---
REASON FOR EXAM: Altered mental status. COMPARISON: 10/11/2019 There is no change from the prior exam. Note is again made of chronic basal ganglia calcifications bilaterally. The ventricles and sulci are unchanged. There is no shift of the midline structures. There is no change in the deep cerebral white matter. The posterior fossa is stable. There is no evidence of an acute intracranial hemorrhagic or nonhemorrhagic event. The imaged paranasal sinuses and mastoid air cells are unchanged and again seen to be clear. There is no skull fracture. IMPRESSION: Stable chronic changes. There is no evidence of acute disease. Electronically Signed by Edgardo Robertson DO 11/05/2019 12:37 P
[2019-11-05] VITALS: BP 148/64
[2019-11-05 04:00] VITALS: BP 128/60
[2019-11-05 05:53] LABS: HEMATOCRIT 31.3 % (36.0-47.0); HEMOGLOBIN 10.1 g/dl (12.0-15.5); MEAN CORPUSCULAR HEMOGLOBIN 28.9 pg (27.0-33.0); MEAN CORPUSCULAR HGB CONC 32.3 g/dl (32.0-36.5); MEAN CORPUSCULAR VOLUME 89.4 fl (80.0-96.0); PLATELET COUNT, AUTOMATED 222 10^3/uL (150-450); WHITE BLOOD COUNT 6.4 10^3/uL (4.0-10.0)
[2019-11-05] MEDS: MECLIZINE 25 MG TABLET PO SCH (05:57)
[2019-11-05] MEDS: SLF 3 ML SYR IV SCH ×3 (05:57→21:50)
[2019-11-05 06:15] LABS: ALBUMIN 3.4 GM/DL (3.2-5.2); BILIRUBIN,TOTAL 0.4 MG/DL (0.2-1.0); CALCIUM LEVEL 9.2 MG/DL (8.8-10.2); CREATININE FOR GFR 1.23 MG/DL (0.55-1.30); GLOMERULAR FILTRATION RATE 45.7 (>39); MAGNESIUM LEVEL 1.2 MG/DL (1.8-2.4); TOTAL PROTEIN 7.1 GM/DL (6.4-8.2)
[2019-11-05 08:00] VITALS: BP 155/72
[2019-11-05] MEDS: RANOLAZINE 500 MG ER TAB PO SCH ×2 (08:35→21:07)
[2019-11-05] MEDS: HumaLOG INSULIN (NovoLOG) PER UNIT SC SCH ×4 (08:35→21:00)
[2019-11-05] MEDS: PANTOPRAZOLE 40MG TAB (PROTONIX) PO SCH ×2 (08:36→21:07)
[2019-11-05] MEDS: CARVedilol 12.5 MG TAB PO SCH ×2 (08:36→21:08)
[2019-11-05] MEDS: ASPIRIN 81 MG ENTERIC TAB PO SCH (08:36)
[2019-11-05] MEDS: TICAGRELOR 90 MG TABLET (BRILINTA) PO SCH ×2 (08:36→21:11)
[2019-11-05] MEDS: HEPARIN SOD (PORCINE) 5000UNITS/ML VIAL (J1644 PER 1000UNITS) SC SCH ×2 (08:37→21:06)
[2019-11-05] MEDS: ISOSORBIDE MON. (IMDUR) 30 MG XR TAB PO SCH (08:37)
[2019-11-05] MEDS: MAG SULF 1GM/100ML (MAG RUN) 1 GM in IV 1 EA IV SCH ×2 (08:38→10:27)
--- NOTE | 2019-11-05 11:32 | IPNPDOC ---
Text Note Date of Service The patient was seen on 11/05/19. NOTE SUBJECTIVE: Patient was seen and examined this morning lying comfortably in bed. She states she is currently feeling well without any symptoms of dizziness. She states these episodes come on randomly and suddenly. It does not seem to correlate with any activity such as standing or turning her head. She describes these symptoms as the room spinning around her. OBJECTIVE: VITAL SIGNS: See below GENERAL: Alert, comfortable, in no acute distress HEENT: Normocephalic, atraumatic, PERRLA, EOMI, moist mucous membranes NECK: Supple, trachea midline CARDIOVASCULAR: Regular rate and rhythm, normal S1 and S2. No murmurs, rubs, or gallops RESPIRATORY: Clear to auscultation bilaterally with equal air entry bilaterally. No wheezing, rhonchi, or rales. ABDOMEN: Soft, nontender, nondistended, bowel sounds present, no masses or hepatosplenomegaly appreciated EXTREMITIES: No cyanosis or edema. Pulses 2+/4 in bilateral upper and lower extremities SKIN: [place], warm, dry NEUROLOGIC: Alert and oriented x3 to person, place and time. Cranial nerves 2-12 grossly intact. No focal deficits appreciated PSYCHIATRIC: Mood and affect appropriate ASSESSMENT/PLAN: 74-year-old female presents with 1 week of dizziness and poor balance admitted for further neurologic workup # Dizziness Head CT negative. Brain MRI negative. 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 Wong of neurology consulted, appreciate his input and recommendations. Meclizine PRN which she takes at home. PT/OT eval pending. #Gait abnormality PT/OT evaluation pending. Neurology workup as noted above. #Type 2 diabetes mellitus with peripheral neuropathy -Consistent carbohydrate diet, sliding scale insulin while inpatient with 10 units levemir qhs, hold home oral medications. Continue home Cymbalta and gabapentin for neuropathy #Hypertension Hypertensive urgency on admission, this has resolved status post IV labetalol. Continue home isosorbide mononitrate, carvedilol, trandolapril #Hx CAD with stent placement Continue aspirin, statin, Brilinta, Ranexa #GERD - continue protonix DVT prophylaxis: sc heparin every 12 hours Disposition: Pending neurology consult, PT/OT evaluation GME ATTESTATION I have personally evaluated and examined the patient. Discussed with resident/student regarding plan of care and agree with the above assessment and plan. Discussed with neurology regarding patient's aneurysm, they are small and will follow with neurosurgery and neurology as outpatient. Spoke to daughter who wish for patient to be transfer to [place]. However, given that there is no bleed noting in imaging at this time, patient's current symptoms are likely unrelated to the MRA findings. I had called neurosurgery at [place] and spoke to Dr. Jimbo Rae who also agree with outpatient follow up although did offer to a ccept patient if there are any concerns or neurological status change. VS,Fishbone, I+O VS, Fishbone, I+O Laboratory Tests 11/04/19 13:16 11/05/19 05:36 Vital Signs Date Time Temp Pulse Resp B/P (MAP) Pulse Ox O2 Delivery O2 Flow Rate FiO2 11/05/19 08:36 87 155/72 11/05/19 08:00 97.4 17 98 Room Air I&O- Last 24 Hours up to 6 AM 11/05/19 05:59 Intake Total 0 ml Output Total 600 ml Balance -600 ml CASTILLO MAY D.O. Nov 05, 2019 11:32 MARY CLEMENT MD Nov 05, 2019 18:19
[2019-11-05 12:00] VITALS: BP 102/66
[2019-11-05] MEDS ORDERED: MECLIZINE 25 MG TABLET PO PRN (14:00)
[2019-11-05 17:00] VITALS: BP 138/65
[2019-11-05] MEDS: DULoxetine 30 MG CAP (CYMBALTA) PO SCH (17:30)
[2019-11-05] MEDS: GABAPENTIN 400 MG CAP PO SCH (17:30)
[2019-11-05] MEDS: LEVEMIR (INSULIN DETEMIR) 1 UNITS/0.01ML SC SCH (21:06)
[2019-11-05] MEDS: ATORVASTATIN 20 MG TAB PO SCH (21:07)
[2019-11-05] MEDS: trandolapriL 1 MG TAB PO SCH (21:07)
[2019-11-05 22:00] VITALS: BP 139/60
[2019-11-06 06:00] VITALS: BP 108/52
[2019-11-06] MEDS: SLF 3 ML SYR IV SCH ×3 (06:02→22:00)
[2019-11-06 06:05] LABS: HEMOGLOBIN 9.4 g/dl (12.0-15.5); MEAN CORPUSCULAR HEMOGLOBIN 28.6 pg (27.0-33.0); MEAN CORPUSCULAR HGB CONC 32.4 g/dl (32.0-36.5); MEAN CORPUSCULAR VOLUME 88.1 fl (80.0-96.0); PLATELET COUNT, AUTOMATED 203 10^3/uL (150-450); RED BLOOD COUNT 3.29 10^6/uL (4.00-5.40); WHITE BLOOD COUNT 5.9 10^3/uL (4.0-10.0)
[2019-11-06 07:00] LABS: CALCIUM LEVEL 8.7 MG/DL (8.8-10.2); CREATININE FOR GFR 1.32 MG/DL (0.55-1.30); GLOMERULAR FILTRATION RATE 42.1 (>39); MAGNESIUM LEVEL 1.5 MG/DL (1.8-2.4); POTASSIUM SERUM 3.9 MEQ/L (3.5-5.1)
[2019-11-06] MEDS: HEPARIN SOD (PORCINE) 5000UNITS/ML VIAL (J1644 PER 1000UNITS) SC SCH ×2 (09:22→22:15)
[2019-11-06] MEDS: HumaLOG INSULIN (NovoLOG) PER UNIT SC SCH ×4 (09:22→21:00)
[2019-11-06] MEDS: ISOSORBIDE MON. (IMDUR) 30 MG XR TAB PO SCH (09:23)
[2019-11-06] MEDS: TICAGRELOR 90 MG TABLET (BRILINTA) PO SCH ×2 (09:23→22:16)
[2019-11-06] MEDS: PANTOPRAZOLE 40MG TAB (PROTONIX) PO SCH ×2 (09:23→22:16)
[2019-11-06] MEDS: CARVedilol 12.5 MG TAB PO SCH ×2 (09:23→22:18)
[2019-11-06] MEDS: RANOLAZINE 500 MG ER TAB PO SCH ×2 (09:23→22:14)
[2019-11-06] MEDS: ASPIRIN 81 MG ENTERIC TAB PO SCH (09:23)
[2019-11-06] MEDS: NS 1,000 ML IV SCH ×3 (09:24→19:24)
[2019-11-06] MEDS: MAG SULF 1GM/100ML (MAG RUN) 1 GM in IV 1 EA IV SCH ×2 (09:24→10:59)
--- NOTE | 2019-11-06 11:10 | IPNPDOC ---
Text Note Date of Service The patient was seen on 11/06/19. NOTE SUBJECTIVE: Patient was seen and examined this morning sitting up comfortably on the side of the bed, eating breakfast. She states she currently feels well but did get dizzy after PT yesterday. OBJECTIVE: VITAL SIGNS: See below GENERAL: Alert, comfortable, in no acute distress HEENT: Normocephalic, atraumatic, PERRLA, EOMI, moist mucous membranes NECK: Supple, trachea midline CARDIOVASCULAR: Regular rate and rhythm, normal S1 and S2. No murmurs, rubs, or gallops RESPIRATORY: Clear to auscultation bilaterally with equal air entry bilaterally. No wheezing, rhonchi, or rales. ABDOMEN: Soft, nontender, nondistended, bowel sounds present, no masses or hepatosplenomegaly appreciated EXTREMITIES: No cyanosis or edema. Pulses 2+/4 in bilateral upper and lower extremities SKIN: [place], warm, dry NEUROLOGIC: Alert and oriented x3 to person, place and time. Cranial nerves 2-12 grossly intact. No focal deficits appreciated PSYCHIATRIC: Mood and affect appropriate ASSESSMENT/PLAN: 74-year-old female presents with 1 week of dizziness and poor balance admitted for further neurologic workup # Dizziness Head CT negative. Brain MRI negative. 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 Wong of neurology consulted, appreciate his input and recommendations. Plan for outpatient follow up with neurology and neurosurgery. Meclizine PRN which she takes at home. continue PT/OT. #Gait abnormality PT/OT evaluation pending. Neurology workup as noted above. #WILVER - May have some dehydration, will start IV fluids today. If not improved may require further work up #Hypomagnesemia - May be contributing to her dizziness. Continue to replete. Will start oral supplement daily. #Type 2 diabetes mellitus with peripheral neuropathy -Consistent carbohydrate diet, sliding scale insulin while inpatient with 10 units levemir qhs, hold home oral medications. Continue home Cymbalta and gabapentin for neuropathy #Hypertension Hypertensive urgency on admission, this has resolved status post IV labetalol. Continue home isosorbide mononitrate, carvedilol, trandolapril #Hx CAD with stent placement Continue aspirin, statin, Brilinta, Ranexa #GERD - continue protonix DVT prophylaxis: sc heparin every 12 hours Disposition: pending clinical improvement and PT clearance vs rehab placement GME ATTESTATION I have personally evaluated and examined the patient. Discussed with resident/student regarding plan of care and agree with the above assessment and plan. VS,Fishbone, I+O VS, Fishbone, I+O Laboratory Tests 11/06/19 05:51 Vital Signs Date Time Temp Pulse Resp B/P (MAP) Pulse Ox O2 Delivery O2 Flow Rate FiO2 11/06/19 09:23 108/52 11/06/19 06:00 97.9 77 15 97 Room Air I&O- Last 24 Hours up to 6 AM 11/06/19 06:00 Intake Total 600 ml Output Total 950 ml Balance -350 ml CASTILLO MAY D.O. Nov 06, 2019 11:10 MARY CLEMENT MD Nov 06, 2019 18:09
[2019-11-06] MEDS: MAGNESIUM CHLORIDE 64 MG TABCR (SLO MAG) PO SCH (13:44)
[2019-11-06 14:00] VITALS: BP 116/57
[2019-11-06] MEDS: GABAPENTIN 400 MG CAP PO SCH (17:51)
[2019-11-06] MEDS: DULoxetine 30 MG CAP (CYMBALTA) PO SCH (17:51)
[2019-11-06 22:00] VITALS: BP 124/57
[2019-11-06] MEDS: LEVEMIR (INSULIN DETEMIR) 1 UNITS/0.01ML SC SCH (22:15)
[2019-11-06] MEDS: ATORVASTATIN 20 MG TAB PO SCH (22:16)
[2019-11-06] MEDS: trandolapriL 1 MG TAB PO SCH (22:18)
[2019-11-07] MEDS: NS 1,000 ML IV SCH ×3 (03:29→19:51)
[2019-11-07] MEDS: SLF 3 ML SYR IV SCH ×2 (05:54→14:00)
[2019-11-07 06:00] VITALS: BP 134/66
[2019-11-07 06:24] LABS: HEMATOCRIT 27.1 % (36.0-47.0); HEMOGLOBIN 8.8 g/dl (12.0-15.5); MEAN CORPUSCULAR HEMOGLOBIN 28.9 pg (27.0-33.0); MEAN CORPUSCULAR HGB CONC 32.5 g/dl (32.0-36.5); MEAN CORPUSCULAR VOLUME 88.9 fl (80.0-96.0); PLATELET COUNT, AUTOMATED 184 10^3/uL (150-450); RED BLOOD COUNT 3.05 10^6/uL (4.00-5.40); WHITE BLOOD COUNT 5.5 10^3/uL (4.0-10.0)
[2019-11-07 06:48] LABS: CREATININE FOR GFR 1.06 MG/DL (0.55-1.30); GLOMERULAR FILTRATION RATE 54.2 (>39); MAGNESIUM LEVEL 1.6 MG/DL (1.8-2.4); POTASSIUM SERUM 3.8 MEQ/L (3.5-5.1)
[2019-11-07] MEDS ORDERED: MAG SULF 1GM/100ML (MAG RUN) 1 GM in IV 1 EA IV ONE ×2 (08:00→18:30)
[2019-11-07] MEDS: MAGNESIUM CHLORIDE 64 MG TABCR (SLO MAG) PO SCH (09:20)
[2019-11-07] MEDS: HEPARIN SOD (PORCINE) 5000UNITS/ML VIAL (J1644 PER 1000UNITS) SC SCH ×2 (09:21→20:41)
[2019-11-07] MEDS: TICAGRELOR 90 MG TABLET (BRILINTA) PO SCH ×2 (09:21→20:42)
[2019-11-07] MEDS: ASPIRIN 81 MG ENTERIC TAB PO SCH (09:21)
[2019-11-07] MEDS: RANOLAZINE 500 MG ER TAB PO SCH ×2 (09:21→20:41)
[2019-11-07] MEDS: HumaLOG INSULIN (NovoLOG) PER UNIT SC SCH ×4 (09:21→20:23)
[2019-11-07] MEDS: PANTOPRAZOLE 40MG TAB (PROTONIX) PO SCH ×2 (09:21→20:42)
[2019-11-07] MEDS: CARVedilol 12.5 MG TAB PO SCH ×2 (09:23→20:44)
[2019-11-07] MEDS: ISOSORBIDE MON. (IMDUR) 30 MG XR TAB PO SCH (09:23)
[2019-11-07 14:00] VITALS: BP 159/79
--- NOTE | 2019-11-07 14:24 | IPNPDOC ---
Text Note Date of Service The patient was seen on 11/07/19. NOTE SUBJECTIVE: Patient was seen and examined this morning sitting up comfortably in a chair. She states she has not had any dizziness over the past day. She is feeling very well, no new issues or complaints. OBJECTIVE: VITAL SIGNS: See below GENERAL: Alert, comfortable, in no acute distress HEENT: Normocephalic, atraumatic, PERRLA, EOMI, moist mucous membranes NECK: Supple, trachea midline CARDIOVASCULAR: Regular rate and rhythm, normal S1 and S2. No murmurs, rubs, or gallops RESPIRATORY: Clear to auscultation bilaterally with equal air entry bilaterally. No wheezing, rhonchi, or rales. ABDOMEN: Soft, nontender, nondistended, bowel sounds present, no masses or hepatosplenomegaly appreciated EXTREMITIES: No cyanosis or edema. Pulses 2+/4 in bilateral upper and lower ex tremities SKIN: [place], warm, dry NEUROLOGIC: Alert and oriented x3 to person, place and time. Cranial nerves 2-12 grossly intact. No focal deficits appreciated PSYCHIATRIC: Mood and affect appropriate ASSESSMENT/PLAN: 74-year-old female presents with 1 week of dizziness and poor balance admitted for further neurologic workup # Dizziness Head CT negative. Brain MRI negative. 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 Wong of neurology consulted, appreciate his input and recommendations. Plan for outpatient follow up with neurology and neurosurgery. Meclizine PRN which she takes at home. continue PT/OT. #Chronic Hypomagnesemia - May be contributing to her dizziness. Continue to replete. Will start oral supplement daily. - Has not corrected appropriately with IV and oral supplement. Check 24hr urine magnesium. - No vomiting/diarrhea so unlikely GI loss. - She does have persistent intermittent bigemini on telemetry which has been on admission. Will have to continue to be aggressive with her magnesium repletion to help optimize her as best as we can. - hx diarrhea with oral magnesium but seem to be tolerating on this admission. #Gait abnormality PT/OT evaluation pending. Neurology workup as noted above. #WILVER - improved s/p IV fluids. #Type 2 diabetes mellitus with peripheral neuropathy -Consistent carbohydrate diet, sliding scale insulin while inpatient with 10 units levemir qhs, hold home oral medications. Continue home Cymbalta and gabapentin for neuropathy #Hypertension Hypertensive urgency on admission, this has resolved status post IV labetalol. Continue home isosorbide mononitrate, carvedilol, trandolapril #Hx CAD with stent placement Continue aspirin, statin, Brilinta, Ranexa #GERD - continue protonix DVT prophylaxis: sc heparin every 12 hours Disposition: pending clinical improvement and PT clearance vs rehab placement GME ATTESTATION I have personally evaluated and examined the patient. Discussed with resident/student regarding plan of care and agree with the above assessment and plan. VS,Fishbone, I+O VS, Fishbone, I+O Laboratory Tests 11/07/19 05:45 Vital Signs Date Time Temp Pulse Resp B/P (MAP) Pulse Ox O2 Delivery O2 Flow Rate FiO2 11/07/19 09:23 133/59 11/07/19 09:23 80 11/07/19 06:00 97.0 20 97 11/06/19 14:00 Room Air I&O- Last 24 Hours up to 6 AM 11/07/19 06:00 Intake Total 2000 ml Output Total 1675 ml Balance 325 ml CASTILLO MAY D.O. Nov 07, 2019 14:24 MARY CLEMENT MD Nov 07, 2019 19:15
[2019-11-07] MEDS: GABAPENTIN 400 MG CAP PO SCH (17:56)
[2019-11-07] MEDS: DULoxetine 30 MG CAP (CYMBALTA) PO SCH (17:56)
[2019-11-07] MEDS: LEVEMIR (INSULIN DETEMIR) 1 UNITS/0.01ML SC SCH (20:41)
[2019-11-07] MEDS: ATORVASTATIN 20 MG TAB PO SCH (20:42)
[2019-11-07] MEDS: trandolapriL 1 MG TAB PO SCH (20:44)
[2019-11-07 22:00] VITALS: BP 165/75
[2019-11-07 22:43] VITALS: BP 175/70
[2019-11-07] MEDS: **hydrALAZINE** 10 MG TAB PO SCH (22:52)
[2019-11-08 01:03] VITALS: BP 162/70
[2019-11-08] MEDS: NS 1,000 ML IV SCH (04:20)
[2019-11-08 06:00] VITALS: BP 146/72
[2019-11-08] MEDS: **hydrALAZINE** 10 MG TAB PO SCH (06:00)
[2019-11-08 06:30] VITALS: BP 130/60
[2019-11-08 07:06] LABS: HEMATOCRIT 27.8 % (36.0-47.0); MEAN CORPUSCULAR HEMOGLOBIN 29.1 pg (27.0-33.0); MEAN CORPUSCULAR HGB CONC 32.4 g/dl (32.0-36.5); PLATELET COUNT, AUTOMATED 181 10^3/uL (150-450); RED BLOOD COUNT 3.09 10^6/uL (4.00-5.40); WHITE BLOOD COUNT 5.3 10^3/uL (4.0-10.0)
[2019-11-08 07:29] LABS: BLOOD UREA NITROGEN 11 MG/DL (7-18); CALCIUM LEVEL 8.1 MG/DL (8.8-10.2); CARBON DIOXIDE LEVEL 23 MEQ/L (21-32); CHLORIDE LEVEL 111 MEQ/L (98-107); CREATININE FOR GFR 0.87 MG/DL (0.55-1.30); GLOMERULAR FILTRATION RATE > 60.0 (>39); GLUCOSE, FASTING 153 MG/DL (70-100); MAGNESIUM LEVEL 1.5 MG/DL (1.8-2.4); POTASSIUM SERUM 3.6 MEQ/L (3.5-5.1); SODIUM LEVEL 143 MEQ/L (136-145)
[2019-11-08] MEDS: HumaLOG INSULIN (NovoLOG) PER UNIT SC SCH ×4 (07:59→20:59)
[2019-11-08 08:00] VITALS: BP 182/78
[2019-11-08] MEDS: MAG SULF 1GM/100ML (MAG RUN) 1 GM in IV 1 EA IV SCH ×2 (10:14→10:45)
[2019-11-08] MEDS: HEPARIN SOD (PORCINE) 5000UNITS/ML VIAL (J1644 PER 1000UNITS) SC SCH ×2 (10:14→21:07)
[2019-11-08] MEDS: CARVedilol 12.5 MG TAB PO SCH ×2 (10:41→21:10)
[2019-11-08] MEDS: TICAGRELOR 90 MG TABLET (BRILINTA) PO SCH ×2 (10:41→21:08)
[2019-11-08] MEDS: ASPIRIN 81 MG ENTERIC TAB PO SCH (10:42)
[2019-11-08] MEDS: ISOSORBIDE MON. (IMDUR) 30 MG XR TAB PO SCH (10:42)
[2019-11-08] MEDS: RANOLAZINE 500 MG ER TAB PO SCH ×2 (10:43→21:07)
[2019-11-08] MEDS: MAGNESIUM CHLORIDE 64 MG TABCR (SLO MAG) PO SCH (10:44)
--- NOTE | 2019-11-08 12:05 | IPNPDOC ---
Text Note Date of Service The patient was seen on 11/08/19. NOTE SUBJECTIVE: Patient was seen and examined this morning sitting up comfortably in bed. She states her dizziness has remained improved. She continues to work with PT. We discussed stopping her PPI due to the low magnesium and she agrees to this. She will let us know if she has symptoms of reflux or heartburn. OBJECTIVE: VITAL SIGNS: See below GENERAL: Alert, comfortable, in no acute distress HEENT: Normocephalic, atraumatic, PERRLA, EOMI, moist mucous membranes NECK: Supple, trachea midline CARDIOVASCULAR: Regular rate and rhythm, normal S1 and S2. No murmurs, rubs, or gallops RESPIRATORY: Clear to auscultation bilaterally with equal air entry bilaterally. No wheezing, rhonchi, or rales. ABDOMEN: Soft, nontender, nondistended, bowel sounds present, no masses or hepat osplenomegaly appreciated EXTREMITIES: No cyanosis or edema. Pulses 2+/4 in bilateral upper and lower extremities SKIN: [place], warm, dry NEUROLOGIC: Alert and oriented x3 to person, place and time. Cranial nerves 2-12 grossly intact. No focal deficits appreciated PSYCHIATRIC: Mood and affect appropriate ASSESSMENT/PLAN: 74-year-old female presents with 1 week of dizziness and poor balance admitted for further neurologic workup # Dizziness Head CT negative. Brain MRI negative. 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 Wong of neurology consulted, appreciate his input and recommendations. Plan for outpatient follow up with neurology and neurosurgery. Meclizine PRN which she takes at home. continue PT/OT. #Chronic Hypomagnesemia - May be contributing to her dizziness. Continue to replete. Will start oral supplement daily. - Has not corrected appropriately with IV and oral supplement. Check 24hr urine magnesium. - No vomiting/diarrhea so unlikely GI loss. - She does have persistent intermittent bigemini on telemetry which has been on admission. Will have to continue to be aggressive with her magnesium repletion to help optimize her as best as we can. - hx diarrhea with oral magnesium but seem to be tolerating on this admission. - discontinued PPI which may have been contributing. #Gait abnormality PT/OT evaluation pending. Neurology workup as noted above. #WILVER - improved s/p IV fluids. #Type 2 diabetes mellitus with peripheral neuropathy -Consistent carbohydrate diet, sliding scale insulin while inpatient with 10 units levemir qhs, hold home oral medications. Continue home Cymbalta and gabapentin for neuropathy #Hypertension Hypertensive urgency on admission, this has resolved status post IV labetalol. Continue home isosorbide mononitrate, carvedilol, trandolapril #Hx CAD with stent placement Continue aspirin, statin, Brilinta, Ranexa #GERD - hold protonix due to low magnesium, may start H2 zheng if she develops symptoms DVT prophylaxis: sc heparin every 12 hours Disposition: pending clinical improvement and PT clearance vs rehab placement GME ATTESTATION I have personally evaluated and examined the patient. Discussed with resident/student regarding plan of care and agree with the above assessment and plan. VS,Marla, I+O VS, Marla, I+O Laboratory Tests 11/08/19 06:46 Vital Signs Date Time Temp Pulse Resp B/P (MAP) Pulse Ox O2 Delivery O2 Flow Rate FiO2 11/08/19 10:41 77 182/78 11/08/19 08:00 96.7 17 97 Room Air I&O- Last 24 Hours up to 6 AM 11/08/19 05:59 Intake Total 1420 ml Output Total 5000 ml Balance -3580 ml CASTILLO MAY D.O. Nov 08, 2019 12:05 MARY CLEMENT MD Nov 08, 2019 15:20
[2019-11-08 14:00] VITALS: BP 162/70
[2019-11-08] MEDS: DULoxetine 30 MG CAP (CYMBALTA) PO SCH (17:28)
[2019-11-08] MEDS: GABAPENTIN 400 MG CAP PO SCH (17:28)
[2019-11-08 18:16] LABS: MAGNESIUM, URINE 5.4 MG/DL; URINE MAGNESIUM 24HR 240.3 MG/24HR (24-255)
[2019-11-08] MEDS: ATORVASTATIN 20 MG TAB PO SCH (21:07)
[2019-11-08] MEDS: LEVEMIR (INSULIN DETEMIR) 1 UNITS/0.01ML SC SCH (21:07)
[2019-11-08] MEDS: trandolapriL 1 MG TAB PO SCH (21:10)
[2019-11-08 22:00] VITALS: BP 164/84
[2019-11-09 06:00] VITALS: BP 156/70
[2019-11-09 07:13] LABS: MEAN CORPUSCULAR HEMOGLOBIN 28.7 pg (27.0-33.0); MEAN CORPUSCULAR HGB CONC 32.3 g/dl (32.0-36.5); MEAN CORPUSCULAR VOLUME 89.1 fl (80.0-96.0); PLATELET COUNT, AUTOMATED 212 10^3/uL (150-450); RED BLOOD COUNT 3.48 10^6/uL (4.00-5.40); WHITE BLOOD COUNT 6.2 10^3/uL (4.0-10.0)
[2019-11-09 07:39] LABS: CALCIUM LEVEL 8.9 MG/DL (8.8-10.2); CREATININE FOR GFR 0.98 MG/DL (0.55-1.30); GLOMERULAR FILTRATION RATE 59.4 (>39); MAGNESIUM LEVEL 1.6 MG/DL (1.8-2.4)
[2019-11-09] MEDS: HumaLOG INSULIN (NovoLOG) PER UNIT SC SCH ×4 (09:06→21:04)
[2019-11-09] MEDS: HEPARIN SOD (PORCINE) 5000UNITS/ML VIAL (J1644 PER 1000UNITS) SC SCH ×2 (09:06→21:04)
[2019-11-09] MEDS: CARVedilol 12.5 MG TAB PO SCH ×2 (09:07→21:03)
[2019-11-09] MEDS: MAGNESIUM CHLORIDE 64 MG TABCR (SLO MAG) PO SCH (09:07)
[2019-11-09] MEDS: TICAGRELOR 90 MG TABLET (BRILINTA) PO SCH ×2 (09:07→21:03)
[2019-11-09] MEDS: ASPIRIN 81 MG ENTERIC TAB PO SCH (09:07)
[2019-11-09] MEDS: ISOSORBIDE MON. (IMDUR) 30 MG XR TAB PO SCH (09:07)
[2019-11-09] MEDS: RANOLAZINE 500 MG ER TAB PO SCH ×2 (09:07→21:03)
[2019-11-09] MEDS ORDERED: MAG SULF 1GM/100ML (MAG RUN) 1 GM in IV 1 EA IV ONE (10:00)
[2019-11-09 14:00] VITALS: BP 145/70
[2019-11-09] MEDS: GABAPENTIN 400 MG CAP PO SCH (17:12)
[2019-11-09] MEDS: DULoxetine 30 MG CAP (CYMBALTA) PO SCH (17:13)
--- NOTE | 2019-11-09 17:47 | IPNPDOC ---
Date Seen The patient was seen on 11/09/19. Progress Note SUBJECTIVE: Patient reports that her dizziness had completely resolved. She state she can ambulate much better and don't anticipate needing rehab. Mg level 1.6 today. 1g IV given. Afebrile overnight. No acute events reported. OBJECTIVE PHYSICAL EXAMINATION: VITAL SIGNS: Please see below. General: No acute distress, Alert Eyes: Normal sclera, EOMI HENT: Atraumatic Cardiovascular: Normal rate, normal rhythm. Pulmonary: Clear to auscultation b/l, no wheezing GI: Soft, nontender, nondistended Skin: Warm and dry Neuro: CN grossly intact. No focal deficits. Strengths equal b/l. Psych: oriented x 3 LABORATORY DATA, IMAGING STUDIES, MICROBIOLOGY: Please see below. DVT prophylaxis ordered?: HSQ ASSESSMENT AND PLAN: 1. Dizziness - CT head, MRI and MRA negative for acute CVA but 2 incident aneurysm noted 2mm and 3mm. - Follow up with neurosurgery/neurology as outpatient. - May be 2/2 hypomagnesia and dehydration. Mg 1.2 along with WILVER that had improved. - c/w meclizine. PT. 2. Chronic hypomagnesemia - Supplement as needed. - Previously supplemented but stopped due to diarrhea. Has been doing well with oral mag now. - 24 h urine mag level WNL. - No reported diarrhea attributed to loss in GI tract. - PPI discontinued. 3. WILVER - Resolved with IVF. 4. DM - ISS and levemir 10 units daily. 5. HTN - BP labile. On coreg and trandolapril. 6. CAD w/stent placement - ASA, statin, Brilinta 7. GERD - Hold PPI. No complaints of reflux symptoms at this time. DISPOSITION: Likely home in the next 24-48 hours if she can be cleared by PT without further drop in Mg. VS, I&O, 24H, Fishbone Vital Signs/I&O Vital Signs Date Time Temp Pulse Resp B/P (MAP) Pulse Ox O2 Delivery O2 Flow Rate FiO2 11/09/19 14:00 98.4 69 15 145/70 (95) 95 Room Air I&O- Last 24 Hours up to 6 AM 11/09/19 06:00 Intake Total 2580 ml Output Total 3275 ml Balance -695 ml Laboratory Data 24H LABS Laboratory Tests 2 11/08/19 20:01: Bedside Glucose (Misc Panel) 198H 11/09/19 06:46: Nucleated Red Blood Cells % (auto) 0.0, Anion Gap 9, Glomerular Filtration Rate 59.4, Calcium Level 8.9, Magnesium Level 1.6L 11/09/19 11:26: Bedside Glucose (Misc Panel) 265H 11/09/19 16:55: Bedside Glucose (Misc Panel) 300H CBC/BMP Laboratory Tests 11/09/19 06:46 MARY CLEMENT MD Nov 09, 2019 17:47
[2019-11-09] MEDS: trandolapriL 1 MG TAB PO SCH (21:03)
[2019-11-09] MEDS: ATORVASTATIN 20 MG TAB PO SCH (21:03)
[2019-11-09] MEDS: LEVEMIR (INSULIN DETEMIR) 1 UNITS/0.01ML SC SCH (21:04)
[2019-11-09 22:00] VITALS: BP 146/67
[2019-11-10 06:00] VITALS: BP 106/53
[2019-11-10 06:10] LABS: HEMATOCRIT 29.2 % (36.0-47.0); HEMOGLOBIN 9.4 g/dl (12.0-15.5); MEAN CORPUSCULAR HEMOGLOBIN 28.6 pg (27.0-33.0); MEAN CORPUSCULAR HGB CONC 32.2 g/dl (32.0-36.5); MEAN CORPUSCULAR VOLUME 88.8 fl (80.0-96.0); PLATELET COUNT, AUTOMATED 209 10^3/uL (150-450); RED BLOOD COUNT 3.29 10^6/uL (4.00-5.40); WHITE BLOOD COUNT 6.2 10^3/uL (4.0-10.0)
[2019-11-10 06:32] LABS: CALCIUM LEVEL 8.7 MG/DL (8.8-10.2); CREATININE FOR GFR 1.25 MG/DL (0.55-1.30); GLOMERULAR FILTRATION RATE 44.8 (>39); MAGNESIUM LEVEL 1.8 MG/DL (1.8-2.4); POTASSIUM SERUM 3.9 MEQ/L (3.5-5.1)
[2019-11-10] MEDS: HEPARIN SOD (PORCINE) 5000UNITS/ML VIAL (J1644 PER 1000UNITS) SC SCH (09:00)
[2019-11-10] MEDS: HumaLOG INSULIN (NovoLOG) PER UNIT SC SCH ×2 (09:10→13:15)
[2019-11-10] MEDS: ASPIRIN 81 MG ENTERIC TAB PO SCH (09:11)
[2019-11-10] MEDS: MAGNESIUM CHLORIDE 64 MG TABCR (SLO MAG) PO SCH (09:11)
[2019-11-10] MEDS: RANOLAZINE 500 MG ER TAB PO SCH (09:11)
[2019-11-10] MEDS: TICAGRELOR 90 MG TABLET (BRILINTA) PO SCH (09:11)
[2019-11-10 09:14] VITALS: BP 147/62
[2019-11-10] MEDS: ISOSORBIDE MON. (IMDUR) 30 MG XR TAB PO SCH (09:14)
[2019-11-10] MEDS: CARVedilol 12.5 MG TAB PO SCH (09:14)
[2019-11-10] MEDS ORDERED: MAGN64TASA PO (11:43)
--- NOTE | 2019-11-10 11:52 | DS.PDOC ---
Discharge Summary General Date of Admission Nov 06, 2019 at 14:51 Date of Discharge 11/10/19 Discharge Summary PROCEDURES PERFORMED DURING STAY: [None]. ADMITTING DIAGNOSES: 1. Dizziness 2. DM type 2 3. HTN 4. Unsteady gait 5. HTN Emergency 6. WILVER 7. CAD 8. GERD DISCHARGE DIAGNOSES: 1. Dizziness 2. DM type 2 3. HTN 4. Unsteady gait 5. Hypomagnesemia 6. WILVER 7. CAD 8. GERD COMPLICATIONS/CHIEF COMPLAINT: Cad,Dizziness,Hypertension,Unsteady Gait. HISTORY OF PRESENT ILLNESS: "Patient 74 years old female with past medical history of coronary artery diseases with stent placement, type 2 diabetes, hyperlipidemia and anxiety presented to the hospital with dizziness and problem of balance. Patient states that she has been having dizziness with spinning sensation for 1 week. Also she described that when she walk she has the problem with balance with tendency to fall to the left side. Patient took meclizine without any relief. In emergency room patient was found to have negative CT head. Patient is afebrile, does not have leukocytosis. Patient denied fever, chills, chest pain, palpitations, diarrhea or dysuria. Patient denied tinnitus, ear fullness, nausea or vomiting" HOSPITAL COURSE: Patient continued to have severe dizziness for the first few days of admission. Follow up brain imaging does not show evidence of CVA but 2 brain aneurysms of 2mm and 3mm in size at L. MCA, likely incidental findings. Had discussed with neurology, Dr. Nuñez who recommended neurosurgery follow up post discharge as well as offered to have patient see him as well despite being a neurosurgical problem. I also contacted neurosurgery at [facility] as well and discussed regarding non-bleeding aneurysms who also offered to see patient outpatient if she wishes. Noted to have low magnesium of 1.2 and patient has been getting almost daily repletion with very slow improvement. Patient does not report any diarrhea, 24 urine magnesium level are normal. Her PPI was stopped and Mg is currently at 1.8 with resolutions of symptoms. She previously took magnesium supplement but had stopped due to diarrhea. However, the formulation that she got in the hospital has not caused her to have any GI issues, will discharge her with that supplement. Patient will need to follow up with PCP and monitor Mg level closely, at least initially post discharge to make sure it doesn't drop further. f/u PCP, neurology, neurosurgery and cardiology post discharge. She was noted to have frequent bigemini/PVCs on presentation and intermittently during hospitalization as well. Need to follow electrolytes closely. DISCHARGE MEDICATIONS: Please see below. ALLERGIES: Please see below. PHYSICAL EXAMINATION ON DISCHARGE: VITAL SIGNS: Please see below. General: No acute distress, Alert Eyes: Normal sclera, EOMI HENT: Atraumatic Cardiovascular: Normal rate, normal rhythm. Pulmonary: Clear to auscultation b/l, no wheezing GI: Soft, nontender, nondistended Skin: Warm and dry Neuro: CN grossly intact. No focal deficits. Strengths equal b/l. Psych: oriented x 3 LABORATORY DATA: Please see below. IMAGING: CT Head-Stable chronic changes. There is no evidence of acute disease. MRI Brain- No acute intracranial abnormality. MRA Head- Two aneurysms at the bifurcation of M1 segment of left middle cerebral artery measuring 2 mm and 3 mm. ACTIVITY: [As tolerated]. DIET: Consistent carbohydrate diet DISCHARGE PLAN: Continue with magnesium supplement f/u PCP within 1-2 weeks. Repeat and follow Mg level. f/u neurology, neurosurgery and cardiology DISPOSITION: Home. DISCHARGE INSTRUCTIONS: Continue with magnesium supplement f/u PCP within 1-2 weeks. Repeat and follow Mg level. f/u neurology, neurosurgery and cardiology ITEMS TO FOLLOWUP ON ON OUTPATIENT: None DISCHARGE CONDITION: [Stable]. TIME SPENT ON DISCHARGE: 34 minutes. Vital Signs/I&Os Vital Signs Date Time Temp Pulse Resp B/P (MAP) Pulse Ox O2 Delivery O2 Flow Rate FiO2 11/10/19 09:14 74 147/62 11/10/19 06:00 98.5 16 96 Room Air I&O- Last 24 Hours up to 6 AM 11/10/19 06:00 Intake Total 780 ml Output Total 1500 ml Balance -720 ml Laboratory Data Labs 24H Laboratory Tests 2 11/09/19 16:55: Bedside Glucose (Misc Panel) 300H 11/09/19 19:51: Bedside Glucose (Misc Panel) 261H 11/10/19 05:53: Nucleated Red Blood Cells % (auto) 0.0, Anion Gap 8, Glomerular Filtration Rate 44.8, Calcium Level 8.7L, Magnesium Level 1.8 11/10/19 06:12: Bedside Glucose (Misc Panel) 168H CBC/BMP Laboratory Tests 11/10/19 05:53 FSBS Laboratory Tests Test 11/09/19 16:55 11/09/19 19:51 11/10/19 06:12 Range/Units Bedside Glucose (Misc Panel) 300 261 168 83-110 MG/DL Discharge Medications Scheduled Aspirin (Aspirin EC) 81 Mg Tablet.dr, 81 MG PO DAILY, (Reported) Atorvastatin Calcium (Atorvastatin Calcium) 80 Mg Tablet, 80 MG PO QHS, (Reported) Carvedilol (Carvedilol) 25 Mg Tablet, 12.5 MG PO BID, (Reported) Duloxetine Hcl (Duloxetine HCl) 60 Mg Capsule.dr, 60 MG PO QPM, (Reported) Gabapentin (Gabapentin) 800 Mg Tablet, 800 MG PO QPM, (Reported) Insulin Detemir (Levemir) 100 Unit/1 Ml Vial, 25 UNITS SC QHS, (Reported) Isosorbide Mononitrate (Isosorbide Mononitrate ER) 30 Mg Tab.er.24h, 30 MG PO DAILY, (Reported) Liraglutide (Victoza 3-Lele) 0.6 Mg/0.1 Ml Pen.injctr, 1.8 MG SC DAILY, (Reported) Magnesium Chloride (Mag64) 64 Mg Tablet.dr, 64 MG PO DAILY Meclizine HCl (Meclizine HCl) 25 Mg Tablet, 50 MG PO Q8H, (Reported) Metformin HCl (Metformin HCl) 1,000 Mg Tablet, 1,000 MG PO QAM, (Reported) Metformin HCl (Metformin HCl) 1,000 Mg Tablet, 1,500 MG PO QPM, (Reported) Ranolazine (Ranolazine ER) 500 Mg Tab.er.12h, 500 MG PO BID, (Reported) Ticagrelor Base (Brilinta) 90 Mg Tablet, 90 MG PO BID, (Reported) Trandolapril (Trandolapril) 1 Mg Tablet, 0.5 MG PO QHS, (Reported) Allergies Coded Allergies: No Known Allergies (Verified , 07/22/07) MARY CLEMENT MD Nov 10, 2019 11:52
== END 2019-11-10 15:17 | disposition home health service (06) | DRG 641 ==
LOC: M ED 12:22 → EEVIPCON 16:55 → M ED INP 16:55 → ENRESERV 17:19 → M PCU 19:30 → M MSPAV 11-05 16:57 → OBSVTOIN 11-06 14:51
PROVIDERS: ADMIT Internal Medicine; ATTEND Student in an Organized Health Care Education/Training Program
DX: E83.42 Hypomagnesemia (principal); I16.1 Hypertensive emergency; N17.9 Acute kidney failure, unspecified; E11.22 Type 2 diabetes mellitus with diabetic chronic kidney disease; I12.9 Hypertensive chronic kidney disease with stage 1 through stage 4 chronic kidney disease, or unspecified chronic kidney disease; R26.81 Unsteadiness on feet; N18.9 Chronic kidney disease, unspecified; E11.42 Type 2 diabetes mellitus with diabetic polyneuropathy; E78.5 Hyperlipidemia, unspecified; F41.9 Anxiety disorder, unspecified; R42 Dizziness and giddiness; E86.0 Dehydration; R19.7 Diarrhea, unspecified; K21.9 Gastro-esophageal reflux disease without esophagitis; I67.1 Cerebral aneurysm, nonruptured; Z86.010 Personal history of colon polyps; Z95.820 Peripheral vascular angioplasty status with implants and grafts; Z95.5 Presence of coronary angioplasty implant and graft; Z98.49 Cataract extraction status, unspecified eye; Z79.82 Long term (current) use of aspirin; Z79.4 Long term (current) use of insulin; Z79.899 Other long term (current) drug therapy; Z11.59 Encounter for screening for other viral diseases

== ENCOUNTER → 2019-12-04 | Outpatient (REF) | payer MEDICARE ==
[~2019-12-04] MED LIST changes: +ISOS30TA4 PO; +MAGN64TASA PO; +PANT40TA29 PO; -PANT40TA3 PO; +RANO500T2 PO
[2020-01-07 12:54] LABS: BASO % 0.3 % (0.0-1.0); EOS # 0.2 10^3/uL (0.0-0.5); EOS % 3.5 % (0.0-3.0); HEMATOCRIT 31.5 % (36.0-47.0); HEMOGLOBIN 10.1 g/dl (12.0-15.5); LYMPH % 15.1 % (24.0-44.0); MEAN CORPUSCULAR HEMOGLOBIN 30.1 pg (27.0-33.0); MEAN CORPUSCULAR HGB CONC 32.1 g/dl (32.0-36.5); MEAN CORPUSCULAR VOLUME 93.8 fl (80.0-96.0); MONO # 0.5 10^3/uL (0.0-0.8); MONO % 7.7 % (0.0-5.0); NEUTROPHILS # 4.6 10^3/uL (1.5-8.5); NEUTROPHILS % 72.8 % (36.0-66.0); PLATELET COUNT, AUTOMATED 302 10^3/uL (150-450); RED BLOOD COUNT 3.36 10^6/uL (4.00-5.40); WHITE BLOOD COUNT 6.4 10^3/uL (4.0-10.0)
[2020-01-21 12:27] LABS: ALBUMIN 3.5 GM/DL (3.2-5.2); BILIRUBIN,TOTAL 0.4 MG/DL (0.2-1.0); CALCIUM LEVEL 9.2 MG/DL (8.8-10.2); CREATININE FOR GFR 1.11 MG/DL (0.55-1.30); GLOMERULAR FILTRATION RATE 51.4 (>39); HEMOGLOBIN A1c 5.7 %; MAGNESIUM LEVEL 1.6 MG/DL (1.8-2.4); POTASSIUM SERUM 4.6 MEQ/L (3.5-5.1); TOTAL PROTEIN 6.5 GM/DL (6.4-8.2)
== END ==
LOC: M SFHCCLAY 16:14
PROVIDERS: ATTEND Nurse Practitioner Family
DX: E11.9 Type 2 diabetes mellitus without complications (principal); E83.42 Hypomagnesemia; S06.5X9A Traumatic subdural hemorrhage with loss of consciousness of unspecified duration, initial encounter; K92.2 Gastrointestinal hemorrhage, unspecified

== ENCOUNTER → 2019-12-10 | Outpatient (CLI) | payer MEDICARE ==
[~2019-12-10] VITALS: Ht 157.5 cm; Wt 58.6 kg
[~2019-12-10] MED LIST changes: +MAGNESIUM SULFATE 1GM/100ML D5W BAG (10MG/ML) As Ordered ONE
[2019-12-10 11:10] VITALS: BP 132/59
[2019-12-10 14:25] VITALS: BP_SYST 144; BP_SYST 178; BP_DIAS 77
== END ==
LOC: M INFU 11:08
PROVIDERS: ATTEND Nurse Practitioner Family
DX: E83.42 Hypomagnesemia (principal)
CPT/HCPCS: 96374; J3475

== ENCOUNTER → 2020-01-02 | Outpatient (CLI) | payer MEDICARE ==
[~2020-01-02] MED LIST changes: -MAGNESIUM SULFATE 1GM/100ML D5W BAG (10MG/ML) As Ordered ONE
--- NOTE | 2020-01-23 07:47 | REP ---
BILATERAL LOWER EXTREMITY ARTERIAL ULTRASOUND CLINICAL: History of coronary artery disease with symptoms related to peripheral vascular disease and diabetes. TECHNIQUE: Real-time crawley scale and color Doppler evaluation using linear high frequency transducer. FINDINGS: Ultrasound examination of the bilateral lower extremities demonstrates heavily calcified thin arterial structures. The right lower extremity demonstrates biphasic wave patterns throughout its course without focal area of significant stenosis or occlusion. The left lower extremity demonstrates biphasic wave patterns throughout its course and includes 2.5 to 1 stenosis in the proximal profunda artery, 2 to 1 stenosis at the mid/distal superficial femoral artery, and 2 to 1 stenosis at the level of the popliteal artery. Significantly decreased flow is identified through the distal posterior tibial artery which also demonstrates an area of monophasic wave pattern. ABIs could not be obtained due to noncompressibility. RIGHT LEFT SPEECH SCIENTIST 240 cm/s biphasic 229 cm/s biphasic Profunda 178 cm/s biphasic 121-310 cm/s biphasic Proximal SFA 123 cm/s biphasic 156 cm/s biphasic Mid SFA 99 cm/s biphasic 73-165 cm/s biphasic Distal SFA 68 cm/s biphasic 110 cm/s biphasic Popliteal 68 cm/s biphasic 73-149 cm/s biphasic Proximal ALEX 65 cm/s biphasic 70 cm/s biphasic Tibioperoneal trunk 61 cm/s biphasic 94 cm/s biphasic Proximal NETWORKING TECHNOLOGY INSTRUCTOR 84 cm/s biphasic 56 cm/s biphasic Distal NETWORKING TECHNOLOGY INSTRUCTOR 74 cm/s biphasic 11 cm/s monophasic Distal ALEX 57 cm/s biphasic 45 cm/s biphasic IMPRESSION: Marked bilateral atherosclerotic disease with heavily calcified narrowed arteries noted bilaterally. Focal areas of stenosis as described above in the left lower extremity. MTDD
== END ==
LOC: M RAD 13:52
PROVIDERS: ATTEND Surgery Vascular Surgery
DX: I70.213 Atherosclerosis of native arteries of extremities with intermittent claudication, bilateral legs (principal)

== ENCOUNTER → 2020-01-12 | Outpatient (REF) | payer MEDICARE ==
[2020-01-12 17:09] LABS: CALCIUM LEVEL 8.6 MG/DL (8.8-10.2); CREATININE FOR GFR 1.5 MG/DL (0.55-1.30); GLOMERULAR FILTRATION RATE 36.3 (>39); MAGNESIUM LEVEL 1.5 MG/DL (1.8-2.4); POTASSIUM SERUM 4.4 MEQ/L (3.5-5.1)
== END ==
LOC: M SFHCCLAY 15:58
PROVIDERS: ATTEND Nurse Practitioner Family
DX: E83.42 Hypomagnesemia (principal)

== ENCOUNTER 2020-01-15 12:22 | Outpatient (CLI) | payer MEDICARE ==
[~2020-01-15] VITALS: Ht 157.5 cm; Wt 58.6 kg
[2020-01-15 12:30] VITALS: BP 112/56
[2020-01-15] MEDS: MAG SULF 1GM/100ML (MAG RUN) IV SCH ×6 (12:47→14:47)
[2020-01-15 13:45] VITALS: BP 102/51
[2020-01-15 15:50] VITALS: BP 140/68
[2020-01-15 16:20] VITALS: BP 128/60
== END 2020-01-15 16:20 | disposition home or self-care (01) ==
LOC: M INFU 12:22
PROVIDERS: ATTEND Nurse Practitioner Family
DX: E83.42 Hypomagnesemia (principal)
CPT/HCPCS: 96365; 96366; J3475

== ENCOUNTER → 2020-01-21 | Outpatient (REF) | payer MEDICARE ==
[2020-01-21 17:01] LABS: CALCIUM LEVEL 9.2 MG/DL (8.8-10.2); CREATININE FOR GFR 1.24 MG/DL (0.55-1.30); GLOMERULAR FILTRATION RATE 45.3 (>39); MAGNESIUM LEVEL 1.5 MG/DL (1.8-2.4); POTASSIUM SERUM 4.2 MEQ/L (3.5-5.1)
== END ==
LOC: M SFHCCLAY 15:48
PROVIDERS: ATTEND Nurse Practitioner Family
DX: Z79.899 Other long term (current) drug therapy (principal)

== ENCOUNTER → 2020-02-25 | Outpatient (REF) | payer MEDICARE ==
[2020-02-25 20:48] LABS: CALCIUM LEVEL 9.6 MG/DL (8.8-10.2); CREATININE FOR GFR 1.24 MG/DL (0.55-1.30); GLOMERULAR FILTRATION RATE 45.3 (>39); MAGNESIUM LEVEL 1.6 MG/DL (1.8-2.4); POTASSIUM SERUM 4.7 MEQ/L (3.5-5.1)
== END ==
LOC: M SFHCCLAY 14:11
PROVIDERS: ATTEND Nurse Practitioner Family
DX: E83.42 Hypomagnesemia (principal)

== ENCOUNTER → 2020-03-26 | Outpatient (REF) | payer MEDICARE ==
[2020-03-26 16:19] LABS: BASO % 0.5 % (0.0-1.0); EOS # 0.2 10^3/uL (0.0-0.5); EOS % 2.9 % (0.0-3.0); HEMATOCRIT 31.6 % (36.0-47.0); HEMOGLOBIN 9.5 g/dl (12.0-15.5); LYMPH # 1.4 10^3/uL (1.5-5.0); LYMPH % 16.4 % (24.0-44.0); MEAN CORPUSCULAR HEMOGLOBIN 28.7 pg (27.0-33.0); MEAN CORPUSCULAR HGB CONC 30.1 g/dl (32.0-36.5); MEAN CORPUSCULAR VOLUME 95.5 fl (80.0-96.0); MONO # 0.6 10^3/uL (0.0-0.8); MONO % 7.2 % (0.0-5.0); NEUTROPHILS % 72.5 % (36.0-66.0); PLATELET COUNT, AUTOMATED 317 10^3/uL (150-450); RED BLOOD COUNT 3.31 10^6/uL (4.00-5.40); WHITE BLOOD COUNT 8.3 10^3/uL (4.0-10.0)
[2020-03-26 16:47] LABS: ALBUMIN 3.5 GM/DL (3.2-5.2); BILIRUBIN,TOTAL 0.4 MG/DL (0.2-1.0); CALCIUM LEVEL 9.1 MG/DL (8.8-10.2); CREATININE FOR GFR 1.22 MG/DL (0.55-1.30); GLOMERULAR FILTRATION RATE 46.1 (>39); MAGNESIUM LEVEL 1.5 MG/DL (1.8-2.4); PERCENT SATURATION 16.7 % (13.2-45.0); POTASSIUM SERUM 4.4 MEQ/L (3.5-5.1); TOTAL PROTEIN 6.7 GM/DL (6.4-8.2)
== END ==
LOC: M LABDRAWC 15:52
DX: I48.91 Unspecified atrial fibrillation (principal); E83.42 Hypomagnesemia

== ENCOUNTER → 2020-04-12 | Outpatient (REF) | payer MEDICARE ==
[2020-04-12 16:44] LABS: BASO % 0.4 % (0.0-1.0); EOS # 0.2 10^3/uL (0.0-0.5); HEMATOCRIT 31.9 % (36.0-47.0); HEMOGLOBIN 9.5 g/dl (12.0-15.5); LYMPH # 1.2 10^3/uL (1.5-5.0); LYMPH % 22.2 % (24.0-44.0); MEAN CORPUSCULAR HEMOGLOBIN 28.4 pg (27.0-33.0); MEAN CORPUSCULAR HGB CONC 29.8 g/dl (32.0-36.5); MEAN CORPUSCULAR VOLUME 95.2 fl (80.0-96.0); MONO # 0.5 10^3/uL (0.0-0.8); MONO % 8.6 % (0.0-5.0); NEUTROPHILS # 3.5 10^3/uL (1.5-8.5); NEUTROPHILS % 65.2 % (36.0-66.0); PLATELET COUNT, AUTOMATED 219 10^3/uL (150-450); RED BLOOD COUNT 3.35 10^6/uL (4.00-5.40); WHITE BLOOD COUNT 5.3 10^3/uL (4.0-10.0)
== END ==
LOC: M SFHCCLAY 10:12
PROVIDERS: ATTEND Nurse Practitioner Family
DX: D64.9 Anemia, unspecified (principal)

== ENCOUNTER → 2020-04-20 | Outpatient (REF) | payer MEDICARE | LOC: M SFHCCLAY 15:54 | PROVIDERS: ATTEND Nurse Practitioner Family | DX: D64.9 Anemia, unspecified (principal) ==

== ENCOUNTER → 2020-05-04 | Outpatient (REF) | payer MEDICARE ==
[~2020-05-04] MED LIST changes: -TRAN1TAB47 PO; -TRAN1TAB48 PO; +TRAN1TAB54 PO; +TRAN1TAB55 PO
== END ==
LOC: M SFHCCLAY 12:25
PROVIDERS: ATTEND Nurse Practitioner Family
DX: D64.9 Anemia, unspecified (principal)

== ENCOUNTER → 2020-05-11 | Outpatient (REF) | payer MEDICARE ==
[2020-05-12 12:01] LABS: BASO % 0.4 % (0.0-1.0); EOS # 0.1 10^3/uL (0.0-0.5); EOS % 1.1 % (0.0-3.0); HEMATOCRIT 31.8 % (36.0-47.0); HEMOGLOBIN 9.6 g/dl (12.0-15.5); LYMPH # 1.2 10^3/uL (1.5-5.0); MEAN CORPUSCULAR HEMOGLOBIN 30.2 pg (27.0-33.0); MEAN CORPUSCULAR HGB CONC 30.2 g/dl (32.0-36.5); MONO # 0.6 10^3/uL (0.0-0.8); MONO % 8.6 % (0.0-5.0); NEUTROPHILS # 5.1 10^3/uL (1.5-8.5); NEUTROPHILS % 72.5 % (36.0-66.0); PLATELET COUNT, AUTOMATED 221 10^3/uL (150-450); RED BLOOD COUNT 3.18 10^6/uL (4.00-5.40)
[2020-05-12 12:32] LABS: ALBUMIN 3.7 GM/DL (3.2-5.2); BILIRUBIN,TOTAL 0.4 MG/DL (0.2-1.0); CALCIUM LEVEL 9.3 MG/DL (8.8-10.2); CREATININE FOR GFR 1.19 MG/DL (0.55-1.30); GLOMERULAR FILTRATION RATE 47.5 (>39); MAGNESIUM LEVEL 1.9 MG/DL (1.8-2.4); TOTAL PROTEIN 6.4 GM/DL (6.4-8.2)
[2020-05-12 13:03] LABS: HEMOGLOBIN A1c 6.2 %
== END ==
LOC: M SFHCCLAY 15:19
PROVIDERS: ATTEND Nurse Practitioner Family
DX: E11.59 Type 2 diabetes mellitus with other circulatory complications (principal)
CPT/HCPCS: 80053; 83036; 83735; 85025; G0463

== ENCOUNTER 2020-05-14 10:53 | Emergency (ER) | payer MEDICARE ==
[~2020-05-14] VITALS: Ht 157.5 cm; Wt 59.1 kg
[~2020-05-14 10:53] MED LIST changes: +ISOS1TAB35 PO; -ISOS30TA4 PO
[2020-05-14 11:28] LABS: BASO % 0.2 % (0.0-1.0); EOS # 0.1 10^3/uL (0.0-0.5); EOS % 0.6 % (0.0-3.0); HEMOGLOBIN 9.5 g/dl (12.0-15.5); LYMPH # 0.8 10^3/uL (1.5-5.0); MEAN CORPUSCULAR HGB CONC 30.6 g/dl (32.0-36.5); MEAN CORPUSCULAR VOLUME 97.8 fl (80.0-96.0); MONO # 0.4 10^3/uL (0.0-0.8); MONO % 4.9 % (0.0-5.0); NEUTROPHILS # 7.6 10^3/uL (1.5-8.5); NEUTROPHILS % 84.7 % (36.0-66.0); PLATELET COUNT, AUTOMATED 206 10^3/uL (150-450); RED BLOOD COUNT 3.17 10^6/uL (4.00-5.40)
[2020-05-14] MEDS ORDERED: NITROGLYCERIN 2% OINT 1 GM *U/D* PKT TOP ONE ×2 (11:30→17:15)
--- OUTSIDE RECORDS SUMMARY | 2020-05-14 11:32 | CCD | Continuity of Care Document ---
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 KRISSY Duffy-C Onset: 05/02/2013 Chronic diastolic heart failure Sinai Lagunas PA-C Onset: 05/02/2013 Premature beats Sinai Lagunas PA-C Onset: 05/02/2013 Pure hypercholesterolemia KRISSY Duffy-C Onset: 2013 Type 2 diabetes mellitus Sinai Lagunas PA-C Onset: 014 Acute subendocardial infarction Reg Hernández MD Onset: 05/06/2019 Patient post percutaneous transluminal coronary angiop lasty Reg Hernández MD Onset: 05/06/2019 Essential hypertension Reg Hernández MD Onset: 0 Hyperlipidemia Reg Hernández MD Onset: 05/06/2019 Acute diastolic heart failure Reg Hernández MD Onset: Electrocardiogram abnormal Reg Hernández MD Onset: 05/06 Dietary management surveillance Reg Hernández MD Onset: 05/06/2019 Carotid artery occlusion Sinai Lagunas PA-C Onset: 020 Peripheral vascular disease Sinai Lagunas PA-C Onset: 12/2019 Social History Type Date Description Comments Sex Unknown ETOH Use Does not consume alcohol Tobacco Use Start: Unknown End: Unknown Patient is a former smoker up to 2ppd from age 19, quit 1992 Smoking Status Reviewed: 05/11/20 Patient is a former smoker up to 2ppd from age 19, quit 1992 Exercise Type/Frequency Walks daily Exercise Type/Frequency Does housework daily Exercise Limitations None Allergies, Adverse Reactions, Alerts Description No Known Drug Allergies Medications Active Medications SIG Qnty Indications Ordering Provide r Date Omeprazole 20mg Capsules 1 by mouth every day Sloane Urrutia [facility] 0 Magnesium 400mg Tablets 1 by mouth twice every day Sloane Urrutia [facility] 0 Metformin HCL 1000mg Tablets 1 by mouth twice a day Sloane Urrutia [facility] 0 Iron 325(65Fe) mg Tablets 1 by mouth every day Sloane Urrutia [facility] 0 Isosorbide Dinitrate 30mg Tablets 1 by mouth once daily Unknown 11/27/2019 Brilinta 90mg Tablets 1 by mouth twice a day 180tabs I25.10 Seth Gibbs MD 10/29/2019 Trandolapril 1mg Tablets 1/2 by mouth every night at bedtime 45tabs I25.10 Seth Gibbs MD 2019 Nitroglycerin 0.4mg Tablets Sub 1 tab sl every 5 min times 3 doses as needed chest disc 25tabs J lang Gibbs MD 10/29/2019 Ranexa 500mg Tablets ER 12HR 1 po bid Raymond Brennan MD 10/28/2019 Gabapentin 800mg Tablets 1 by mouth once daily Unknown 05/05/2019 Duloxetine HCL 60mg C[address] [place] 1 by mouth every day Unknown 05/05/2019 Atorvastatin Calcium 80mg Tablets 1 by mouth every night at bedtime Unknown Carvedilol 12.5mg Tablets 1 po bid 60tabs Reg Hernández MD 05/16/2010 Aspirin 81mg Tablets 1 by mouth every day Cristal Guerra DO History Medications Magnesium 400mg Tablets 1 by mouth every day Unknown 11/27/2019 - 11/2019 Immunizations Description No Information Available Vital Signs Date Vital Result Comment 05/11/2020 9:08am Weight 134.00 lb Height 64 inches 5'4" BMI (Body Mass Index) 23.0 kg/m2 Heart Rate 84 /min Regular Respiratory Rate 16 /min BP Systolic Right Arm 112 mmHg sitting, regular c uff BP Diastolic Right Arm 74 mmHg sitting, regular cuff 03/01/2020 10:28am Weight 129.00 lb Home Weight 129lb Height 64 inches 5'4" BMI (Body Mass Index) 22.1 kg/m2 Heart Rate 76 /min Regular Respiratory Rate 16 /min BP Systolic Right Arm 102 mmHg sitting, regular c uff BP Diastolic Right Arm 62 mmHg sitting, regular cuff BP Systolic Left Arm 102 mmHg sitting BP Diastolic Left Arm 60 mmHg sitting Results Test Acquired Date Facility Test Result H/L Range Note CBC With Differential 03/26/2020 [facility] [phone] White Blood Count 8.3 10 Normal 4.0-10.0 Red Blood Count 3.31 10 Low 4.00-5.40 Hemoglobin 9.5 g/dL Low 12.0-15.5 Hematocrit 31.6 % Low 36.0-47.0 Mean Corpuscular Volume 95.5 fl Normal 80.0-96.0 Mean Corpuscular Hemoglobin 28.7 pg Normal 27.0-33.0 Mean Corpuscular HGB Conc 30.1 g/dL Low 32.0-36.5 Red Cell Distribution Width 15.3 % High 11.5-14.5 Platelet Count, Automated 317 10 Normal 150-450 Neutrophils % 72.5 % High 36.0-66.0 Lymph % 16.4 % Low 24.0-44.0 [place] % 7.2 % High 0.0-5.0 Eos % 2.9 % Normal 0.0-3.0 Baso % 0.5 % Normal 0.0-1.0 Immature Granulocyte % 0.5 % Normal 0-3.0 Nucleated Red Blood Cell % 0.0 % Normal 0-0 Neutrophils # 6.0 10 Normal 1.5-8.5 Lymph # 1.4 10 Low 1.5-5.0 [place] # 0.6 10 Normal 0.0-0.8 Eos # 0.2 10 Normal 0.0-0.5 Baso # 0.0 10 Normal 0.0-0.2 Comprehensive Metabolic Profil 03/26/2020 [facility] [phone] Glucose, Fasting 206 mg/dL High 70-100 Blood Urea Nitrogen 20 mg/dL High 7-18 Creatinine For GFR 1.22 mg/dL Normal 0.55-1.30 Glomerular Filtration Rate 46.1 Normal >39 1 Sodium Level 137 mEq/L Normal 136-145 Potassium Serum 4.4 mEq/L Normal 3.5-5.1 Chloride Level 106 mEq/L Normal 98-107 Carbon Dioxide Level 22 mEq/L Normal 21-32 Anion Gap 9 mEq/L Normal 8-16 Calcium Level 9.1 mg/dL Normal 8.8-10.2 Ast/Sgot 21 U/L Normal 7-37 Alt/SGPT 22 U/L Normal 12-78 Alkaline Phosphatase 75 U/L Normal 45-117 Bilirubin,Total 0.4 mg/dL Normal 0.2-1.0 Total Protein 6.7 GM/DL Normal 6.4-8.2 Albumin 3.5 GM/DL Normal 3.2-5.2 Albumin/Globulin Ratio 1.1 Low 1.2-2.2 Laboratory test finding 03/26/2020 [facility] [phone] Magnesium Level 1.5 mg/dL Low 1.8-2.4 Total Iron Binding Capacit 03/26/2020 [facility] [phone] Iron (Fe) 57 g/dL Normal 50-170 Total Iron Binding Capacity 341 g/dL Normal 250-450 Percent Saturation 16.7 % Normal 13.2-45.0 CBC without Differential 03/22/2020 [facility] (315)- - White Blood Count 9.1 4.0-10.0 Red Blood Count 3.47 Low 4.00-5.50 Platelets 287 172-450 Hemoglobin 10.2 Low 12.0-16.0 Hematocrit 30.8 Low 36.0-48.8 CMP 03/22/2020 [facility] (315)- - Albumin Serum/Plasma 3.5 Alt - SGPT 17 Calcium Ser/Plasma Mass/Vol 9.4 Carbon Dioxide Ser/Plasm 22 Chloride Serum/Plasma 98 Alkaline Phosphatase 69 Potassium 3.5 Protein Total 7.6 Sodium 134 Ast - Sgot 23 BUN - Urea Nitrogen 13 Glucose 126 High 74-106 Creatinine For GFR 1.1 BMP 02/25/2020 [facility] - not interfaced (315)- - Calcium Ser/Plasma Mass/Vol 9.6 Sodium 135 Carbon Dioxide Ser/Plasm 21 Chloride Serum/Plasma 103 Potassium 4.7 Glucose 124 High 70-100 Blood Urea Nitrogen 21 High 7-18 Creatinine 1.24 0.55-1.30 G F R 45.3 Laboratory test finding 02/25/2020 [facility] - not interf aced (315)- - Magnesium Level 1.6 Low 1.8-2.4 Laboratory test finding 01/21/2020 [facility] - not interf aced (315)- - Magnesium Level 1.5 Low 1.8-2.4 BMP 01/21/2020 [facility] - not interfaced (315)- - Calcium Ser/Plasma Mass/Vol 9.2 Sodium 134 Carbon Dioxide Ser/Plasm 23 Chloride Serum/Plasma 101 Potassium 4.2 Glucose 199 High 70-100 Blood Urea Nitrogen 25 High 7-18 Creatinine 1.24 0.55-1.30 G F R 45.3 BMP 01/12/2020 [facility] - not interfaced (315)- - Calcium Ser/Plasma Mass/Vol 8.6 Sodium 136 Carbon Dioxide Ser/Plasm 27 Chloride Serum/Plasma 104 Potassium 4.4 Glucose 113 High 70-100 Blood Urea Nitrogen 26 High 7-18 Creatinine 1.50 High 0.55-1.30 G F R 36.3 CMP 12/04/2019 [facility] - not interfaced (315)- - Albumin Serum/Plasma 3.5 Alt - SGPT 28 Calcium Ser/Plasma Mass/Vol 9.2 Carbon Dioxide Ser/Plasm 28 Chloride Serum/Plasma 103 Alkaline Phosphatase 57 Potassium 4.6 Protein Total 6.5 Sodium 139 Ast - Sgot 28 BUN - Urea Nitrogen 21 Glucose 89 70-100 Creatinine For GFR 1.11 Hemoglobin A1c 12/04/2019 [facility] - not interfaced (315)- - Hemoglobin A1c 5.7 CBC without Differential 12/04/2019 [facility] - not inter faced (315)- - White Blood Count 6.4 4.0-10.0 Red Blood Count 3.36 Low 4.00-5.40 Platelets 302 150-450 Hemoglobin 10.1 Hematocrit 31.5 Laboratory test finding 12/04/2019 [facility] - not interf aced (315)- - Magnesium Level 1.6 Low 1.8-2.4 CBC without Differential 11/26/2019 [facility] (315)- - White Blood Count 7.0 4.0-11.0 Red Blood Count 3.30 Low 4.00-5.40 Platelets 211 150-450 Hemoglobin 10.0 Low 12.0-16.0 Hematocrit 28.8 Low 36.0-47.0 Basic Metabolic Panel 11/26/2019 [facility] (315)- - Glucose 109 High 70-99 Blood Urea Nitrogen 20 7-24 Creatinine 0.88 0.60-1.00 Sodium 141 136-145 Potassium 4.2 3.6-5.2 Chloride 113 High 100-108 Carbon Dioxide 20 Low 22-31 Calcium 8.4 8.4-10.2 GFR (Calculated) >60 >59 1 Units are mL/min/1.73 m2 Chronic Kidney Disease Staging per NKF: Stage I & II GFR >=60 Normal to Mildly Decreased Stage III GFR 30-59 Moderately Decreased Stage IV GFR 15-29 Severely Decreased Stage V GFR <15 Very Little GFR Left ESRD GFR <15 on [employer] Procedures Date Code Description Status 05/11/2020 38800 ECG 12-Lead Completed 03/01/2020 09816 ECG 12-Lead Completed Medical Devices Description No Information Available Encounters Type Date Location Provider Dx Diagnosis Office Visit 05/11/2020 9:15a Main Office Sinai Lagunas PA-C I48.0 Paroxysmal atrial fibrillation Office Visit 03/01/2020 10:45a Main Office Sinai Lagunas PA-C I25.1 0 Athscl heart disease of [place] coronary artery w/o ang pctrs I25.2 Old myocardial infarction Z95.5 Presence of coronary angiopl asty implant and graft I10 Essential (primary) hyperten aurelio I34.0 Nonrheumatic mitral (valve) insufficiency I35.1 Nonrheumatic aortic (valve) insufficiency E78.5 Hyperlipidemia, unspecified 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 I73.9 Peripheral vascular disease, unspecified Office Visit 02/17/2020 10:15a Main Office Reg Hernández MD I10 Essential (primary) hypertension I34.0 Nonrheumatic mitral (valve) insufficiency I35.1 Nonrheumatic aortic (valve) insufficiency E78.5 Hyperlipidemia, unspecified Office Visit 12/23/2019 10:31a Main Office Reg Hernández MD I10 Essential (primary) hypertension E78.5 Hyperlipidemia, unspecified I50.31 Acute diastolic (congestive) heart failure I25.10 Athscl heart disease of [place] coronary artery w[facility] Office Visit 11/28/2019 8:00a Main Office Sinai Lagunas PA-C I10 Essential (primary) hypertension Office Visit 11/21/2019 2:48p Main Office Reg Hernández MD I10 Essential (primary) hypertension E78.5 Hyperlipidemia, unspecified I50.31 Acute diastolic (congestive) heart failure I25.10 Athscl heart disease of [place] coronary artery w/o [facility] Assessments Date Code Description Provider 05/11/2020 I48.0 Paroxysmal atrial fibrillation Qian Lagunas PA-C 03/26/2020 I10 Essential (primary) hypertension Reg Hernández MD 03/26/2020 I34.0 Nonrheumatic mitral (valve) insu fficiency Reg Hernández MD 03/26/2020 I35.1 Nonrheumatic aortic (valve) insu fficiency Reg Hernández MD 03/26/2020 E78.5 Hyperlipidemia, unspecified Peterson anupama Hernández MD 03/01/2020 I25.10 Atherosclerotic hear t disease of [place] coronary artery without angina pectoris Sinai Lagunas PA-C 03/01/2020 I25.2 Old myocardial infarction Sinai Lagunas PA-C 03/01/2020 Z95.5 Presence of coronary angioplasty implant and graft Sinai Lagunas PA-C 03/01/2020 I10 Essential (primary) hypertension Sinai Lagunas PA-C 03/01/2020 I34.0 Nonrheumatic mitral (valve) insu fficiency Sinai Lagunas PA-C 03/01/2020 I35.1 Nonrheumatic aortic (valve) insu fficiency Sinai Lagunas PA-C 03/01/2020 E78.5 Hyperlipidemia, unspecified Sinai Lagunas PA-C 03/01/2020 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 Sinai Lagunas PA-C 03/01/2020 I73.9 Peripheral vascular disease, uns pecified Sinai Lagunas PA-C 02/17/2020 I10 Essential (primary) hypertension Reg Hernández MD 02/17/2020 I34.0 Nonrheumatic mitral (valve) insu fficiency Reg Hernández MD 02/17/2020 I35.1 Nonrheumatic aortic (valve) insu fficiency Reg Hernández MD 02/17/2020 E78.5 Hyperlipidemia, unspecified Peterson Hernández MD 12/23/2019 I10 Essential (primary) hypertension Reg Hernández MD 12/23/2019 E78.5 Hyperlipidemia, unspecified Peterson Hernández MD 12/23/2019 I50.31 Acute diastolic (congestive) hea rt failure Reg Hernández MD 12/23/2019 I25.10 Atherosclerotic hear t disease of [place] coronary artery without angina pectoris Reg Hernández MD 11/28/2019 I10 Essential (primary) hypertension Sinai Lagunas PA-C 11/21/2019 I10 Essential (primary) hypertension Reg Hernández MD 11/21/2019 E78.5 Hyperlipidemia, unspecified Peterson Hernández MD 11/21/2019 I50.31 Acute diastolic (congestive) hea rt failure Reg Hernández MD 11/21/2019 I25.10 Atherosclerotic hear t disease of [place] coronary artery without angina pectoris Reg Hernández MD Plan of Treatment Future Appointment(s):* 05/27/2020 10:15 am - Holter/Event/Telemetry at Main Office * 08/30/2020 10:15 am - Sinai Lagunas PA-C at Main Office 05/11/2020 - Sinai Lagunas PA-C* I48.0 Paroxysmal atrial fibrillation* New Orders:* Event Monitor, Scheduled: 05/11/20 * All * Follow up:* As scheduled in August. Functional Status Functional Condition Comment Date Status Independent with all ADL's Activ e Mental Status Description No Information Available Referrals Description No Information Available
--- OUTSIDE RECORDS SUMMARY | 2020-05-14 11:33 | CCD | Continuity of Care Document ---
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 Sinai Lagunas PA-C Onset: 05/02/2013 Chronic diastolic heart failure Sinai Lagunas PA-C Onset: 05/02/2013 Premature beats Sinai Lagunas PA-C Onset: 05/02/2013 Pure hypercholesterolemia Sinai Lagunas PA-C Onset: 2013 Type 2 diabetes mellitus Sinai [...] age 19, quit 1992 Smoking Status Reviewed: 03/01/20 Patient is a former smoker up to 2ppd from age 19, quit 1992 Exercise Type/Frequency Walks daily Exercise Type/Frequency Does housework daily Exercise Limitations None Allergies, Adverse Reactions, Alerts Description No Known Drug Allergies Medications Active Medications SIG Qnty Indications Ordering Provide r Date Omeprazole 20mg Capsules DR 1 by mouth every day Sloane Urrutia [facility] 0 Magnesium 400mg Tablets 1 by mouth twice every day Sloane Urrutia [facility] 0 Metformin HCL 1000mg Tablets 1 by mouth twice a day Sloane Urrutia [facility] 0 Iron 325(65Fe) mg Tablets 1 by mouth every day Sloane Urrutia [facility] 0 Isosorbide Dinitrate 30mg Tablets 1 by [...] Unknown 05/05/2019 Duloxetine HCL 60mg Caps DR Part 1 by mouth every day Unknown 05/05/2019 Atorvastatin Calcium 80mg Tablets 1 by mouth every night at bedtime Unknown Victoza 18mg/3ML Solution Pen-Inje ct as directed Unknown 05/05/2019 Carvedilol 12.5mg Tablets 1 po bid 60tabs Reg Hernández MD 05/16/2010 Aspirin 81mg Tablets 1 by mouth every day Cristal Guerra, DO Levemir 100Unit/ML Solution 20 units every am and 40 units every pm Cristal Guerra, DO History Medications Magnesium 400mg Tablets 1 by mouth every day Unknown 11/27/2019 - 11/2019 Immunizations Description No Information Available Vital Signs Date Vital Result Comment 03/01/2020 10:28am Weight 129.00 lb Home Weight 129lb Height 64 inches 5'4" BMI (Body Mass Index) 22.1 kg/m2 Heart Rate 76 /min Regular Respiratory Rate 16 /min BP Systolic Right Arm 102 mmHg sitting, regular c uff BP Diastolic Right Arm 62 mmHg sitting, regular cuff BP Systolic Left Arm 102 mmHg sitting BP Diastolic Left Arm 60 mmHg sitting 11/28/2019 8:02am Weight 127.00 lb Height 64 inches 5'4" BMI (Body Mass Index) 21.8 kg/m2 Heart Rate 84 /min Regular Respiratory Rate 16 /min BP Systolic Sitting 122 mmHg Ra, regular cuff BP Diastolic Sitting 64 mmHg Ra, regular cuff BP Systolic Standing 120 mmHg sitting BP Diastolic Standing 64 mmHg sitting Results Test Acquired Date Facility Test Result H/L Range Note CBC With Differential 03/26/2020 [facility] [phone] White Blood Count 8.3 10 Normal 4.0-10.0 [...] 36.0-66.0 Lymph % 16.4 % Low 24.0-44.0 Isabella % 7.2 % High 0.0-5.0 Eos % 2.9 % Normal 0.0-3.0 Baso % 0.5 % Normal 0.0-1.0 Immature Granulocyte % 0.5 % Normal 0-3.0 Nucleated Red Blood Cell % 0.0 % Normal 0-0 Neutrophils # 6.0 10 Normal 1.5-8.5 Lymph # 1.4 10 Low 1.5-5.0 Isabella # 0.6 10 Normal 0.0-0.8 Eos # 0.2 10 Normal 0.0-0.5 Baso # 0.0 10 Normal 0.0-0.2 Comprehensive Metabolic Profil 03/26/2020 [facility] [phone] Glucose, Fasting 206 mg/dL High 70-100 Blood [...] 1.1 Low 1.2-2.2 Laboratory test finding 03/26/2020 [facility] [phone] Magnesium Level 1.5 mg/dL Low 1.8-2.4 Total Iron Binding Capacit 03/26/2020 [facility] [phone] Iron (Fe) 57 g/dL Normal 50-170 Total Iron Binding Capacity 341 g/dL Normal 250-450 Percent Saturation 16.7 % Normal 13.2-45.0 CBC without Differential 03/22/2020 [facility] (315)- - White Blood Count 9.1 [...] 74-106 Creatinine For GFR 1.1 BMP 02/25/2020 [facility] - not interfaced (315)- - Calcium Ser/Plasma Mass/Vol 9.6 Sodium 135 Carbon Dioxide Ser/Plasm 21 Chloride Serum/Plasma 103 Potassium 4.7 Glucose 124 High 70-100 Blood Urea Nitrogen 21 High 7-18 Creatinine 1.24 0.55-1.30 G F R 45.3 Laboratory test finding 02/25/2020 [facility] - not interf aced (315)- - Magnesium Level 1.6 Low 1.8-2.4 [facility] 01/21/2020 [facility] - not interfaced (315)- - Calcium Ser/Plasma Mass/Vol 9.2 Sodium 134 Carbon Dioxide Ser/Plasm 23 Chloride Serum/Plasma 101 Potassium 4.2 Glucose 199 High 70-100 Blood Urea Nitrogen 25 High 7-18 Creatinine 1.24 0.55-1.30 G F R 45.3 Laboratory test finding 01/21/2020 [facility] - not interf aced (315)- - Magnesium Level 1.5 Low 1.8-2.4 [facility] 01/12/2020 [facility] - not interfaced (315)- - Calcium Ser/Plasma Mass/Vol 8.6 Sodium 136 Carbon Dioxide Ser/Plasm 27 Chloride Serum/Plasma 104 Potassium 4.4 Glucose 113 High 70-100 Blood Urea Nitrogen 26 High 7-18 Creatinine 1.50 High 0.55-1.30 G F R 36.3 Laboratory test finding 12/04/2019 [facility] - not interf aced (315)- - Magnesium Level 1.6 Low 1.8-2.4 CBC without Differential 12/04/2019 [facility] - not inter faced (315)- - White Blood Count 6.4 4.0-10.0 Red Blood Count 3.36 Low 4.00-5.40 Platelets 302 150-450 Hemoglobin 10.1 Hematocrit 31.5 Hemoglobin A1c 12/04/2019 [facility] - not interfaced (315)- - Hemoglobin A1c 5.7 CMP 12/04/2019 [facility] - not interfaced (315)- - Albumin Serum/Plasma 3.5 Alt - SGPT 28 Calcium Ser/Plasma Mass/Vol 9.2 Carbon Dioxide Ser/Plasm 28 Chloride Serum/Plasma 103 Alkaline Phosphatase 57 Potassium 4.6 Protein Total 6.5 Sodium 139 Ast - Sgot 28 BUN - Urea Nitrogen 21 Glucose 89 70-100 Creatinine For GFR 1.11 CBC without Differential 11/26/2019 [facility] [...] Calcium 8.4 8.4-10.2 GFR (Calculated) >60 >59 Poct glucose 10/14/2019 N2N/Direct CCD Impor t Glucose, Poc 120 mg/dL High 70 - 99 2 CMB 10/14/2019 N2N/Direct CCD Impor t CKMB 5.7 ng/mL High 0.0 - 5.0 CK MB relative index 5.1 {index_val} High 0.0 - 4.0 BMP 10/14/2019 N2N/Direct CCD Impor t Sodium 139 mmol/L 136 - 145 Potassium 4.3 mmol/L 3.6 - 5.2 Chloride 106 mmol/L 100 - 108 Co2 23 mmol/L 22 - 31 Anion Gap 10 mmol/L 7 - 16 Urea nitrogen 22 mg/dL 7 - 24 Creatinine 1.08 mg/dL High 0.60 - 1.00 BUN/Creatinine Ratio 20.4 High 10.0 - 20.0 Ratio Glucose 92 mg/dL 70 - 99 Calcium 8.2 mg/dL Low 8.4 - 10.2 GFR MDRD Non Af Amer 50 Low >59 ml/min/1.73m2 GFR MDRD Af Amer >60 >59 ml/min/1.73m2 Glom Filt Rate, Est See Notes 3 CKMB 10/14/2019 N2N/Direct CCD Impor t CK 112 U/L 26 - 192 CBC 10/14/2019 N2N/Direct CCD Impor t WBC 6.3 10*3/uL 4.1 - 11.0 RBC 3.32 10*6/uL Low 4.00 - 5.40 Hemoglobin 9.3 g/dL Low 12.0 - 16.0 Hematocrit 28.0 % Low 36.0 - 47.0 MCV 84.3 fL 80.0 - 95.0 MCH 27.9 pg 27.0 - 32.0 MCHC 33.1 g/dL 32.0 - 36.0 RDW 15.7 % High 10.5 - 14.5 Platelets 182 10*3/uL 150 - 450 MPV 8.8 fL 7.1 - 10.7 Troponin I 10/12/2019 N2N/Direct CCD Impor t Troponin I 2.03 ng/mL Critical high <0.05 4 Comprehensive metabolic panel 10/12/2019 N2N/Direct CCD Import Sodium 138 mmol/L 136 - 145 Potassium 4.1 mmol/L 3.6 - 5.2 Chloride 106 mmol/L 100 - 108 Co2 24 mmol/L 22 - 31 Anion Gap 8 mmol/L 7 - 16 Urea nitrogen 24 mg/dL 7 - 24 Creatinine 1.05 mg/dL High 0.60 - 1.00 BUN/Creatinine Ratio 22.9 High 10.0 - 20.0 Ratio Glucose 120 mg/dL High 70 - 99 Calcium 8.8 mg/dL 8.4 - 10.2 Protein, Total 7.5 g/dL 6.4 - 8.2 Albumin 3.7 g/dL 3.2 - 4.5 Globulin 3.8 g/dL 2.7 - 4.3 Alb/Glob ratio 1.0 Ratio Alkaline Phosphatase 54 U/L 45 - 117 Bilirubin, Total 0.4 mg/dL 0.0 - 1.0 5 Ast 49 U/L High 11 - 39 Alt 35 U/L 12 - 78 GFR MDRD Non Af Amer 52 Low >59 ml/min/1.73m2 GFR MDRD Af Amer >60 >59 ml/min/1.73m2 Glom Filt Rate, Est See Notes 6 CBC and differential 10/12/2019 N2N/Direct CCD Impo rt WBC 8.6 10*3/uL 4.1 - 11.0 RBC 3.88 10*6/uL Low 4.00 - 5.40 Hemoglobin 11.0 g/dL Low 12.0 - 16.0 Hematocrit 32.4 % Low 36.0 - 47.0 MCV 83.3 fL 80.0 - 95.0 MCH 28.3 pg 27.0 - 32.0 MCHC 34.0 g/dL 32.0 - 36.0 RDW 15.7 % High 10.5 - 14.5 Platelets 213 10*3/uL 150 - 450 MPV 8.7 fL 7.1 - 10.7 Neutrophils % 71.5 % 35.0 - 75.0 Lymphocytes Relative 19.7 % 16.0 - 52.0 Monocytes Relative 6.1 % 0.0 - 8.0 Eosinophils Relative 2.0 % 0.0 - 5.0 Basophils Relative 0.7 % 0.0 - 4.0 Neutrophils Absolute 6.1 10*3/uL 1.8 - 7.7 Lymphocytes Absolute 1.7 10*3/uL 1.2 - 4.8 Monocytes Absolute 0.5 10*3/uL 0.0 - 0.8 Eosinophils Man 0.2 10*3/uL 0.0 - 0.5 Basophils Absolute 0.1 10*3/uL 0.0 - 0.2 1 Units are mL/min/1.73 m2 Chronic Kidney Disease Staging per NKF: Stage I & II GFR >=60 Normal to Mildly Decreased Stage III GFR 30-59 Moderately Decreased Stage IV GFR 15-29 Severely Decreased Stage V GFR <15 Very Little GFR Left ESRD GFR <15 on FIRE TENDER 2 PERFORMED BY [facility] 3 NORMAL KIDNEY FUNCTION OR MILD DISEASE - GFR >OR= 60 CHRONIC KIDNEY DISEASE - GFR 15 - 59 RENAL FAILURE - GFR <15 Est. GFR calculation based on the MDRD study equation, which assumes a steady state for creatinine. Est. GFR should not be used for medication dosing. 4 Less than 0.05: Myocardial i njury unlikely Greater than or equal to 0.05: Highly suggestive of myocardial injury Correlation with rise and/or fall of serial troponins, clinical symptoms and ECG changes is necessary. ALERTED CRITICAL RESULT TO [place]([id number]) [place] [address] ON 10/12/19 [place] [id number] 5 PLEASE NOTE: Total bilirubin results may be falsely elevated in patients taking Eltrombopag. 6 NORMAL KIDNEY FUNCTION OR MILD DISEASE - GFR >OR= 60 CHRONIC KIDNEY DISEASE - GFR 15 - 59 RENAL FAILURE - GFR <15 Est. GFR calculation based on the MDRD study equation, which assumes a steady state for creatinine. Est. GFR should not be used for medication dosing. Procedures Date Code Description Status 03/01/2020 09974 ECG 12-Lead Completed 10/29/2019 53365 ECG 12-Lead Completed Medical Devices Description No Information Available Encounters Type Date Location Provider Dx Diagnosis Office Visit 03/01/2020 10:45a Main Office Sinai Lagunas PA-C I25.1 0 Athscl heart disease of [place] coronary artery w/o ang pctrs I25.2 Old [...] disease of [place] coronary artery w/o ang pctrs Office Visit 11/28/2019 8:00a Main Office Sinai Lagunas PAGayatriC I10 Essential (primary) hypertension Office Visit 11/21/2019 2:48p Main Office Reg Hernández MD I10 Essential (primary) hypertension E78.5 Hyperlipidemia, unspecified I50.31 Acute diastolic (congestive) heart failure I25.10 Athscl heart disease of [place] coronary [facility] 10/29/2019 12:45p Main Office JADA DuffyC I25.1 0 Athscl heart disease of [place] coronary artery w/[facility] ang [facility] Assessments Date Code Description Provider 03/01/2020 I25.10 Atherosclerotic hear t disease of [place] coronary artery without angina pectoris JADA DuffyC 03/01/2020 I25.2 Old myocardial infarction KRISSY Duffy-C 03/01/2020 Z95.5 Presence of coronary angioplasty implant and graft KRISSY Duffy-C 03/01/2020 I10 Essential (primary) hypertension Sinai Lagunas PA-C 03/01/2020 I34.0 Nonrheumatic mitral (valve) insu fficiency Sinai Lagunas PA-C 03/01/2020 I35.1 Nonrheumatic aortic (valve) insu fficiency Sinai Lagunas PA-C 03/01/2020 E78.5 Hyperlipidemia, unspecified Sinai Lagunas, PA-C 03/01/2020 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 Sinai Lagunas PA-C 03/01/2020 I73.9 Peripheral vascular disease, uns pecified Sinai Lagunas, PA-C 02/17/2020 I10 Essential (primary) hypertension Reg Hernández MD 02/17/2020 I34.0 Nonrheumatic mitral (valve) insu fficiency Reg Hernández MD 02/17/2020 I35.1 Nonrheumatic aortic (valve) insu fficiency Reg Hernández MD 02/17/2020 E78.5 Hyperlipidemia, unspecified Peterson anupama Hernández MD 12/23/2019 I10 Essential (primary) hypertension Reg Hernández MD 12/23/2019 E78.5 Hyperlipidemia, unspecified Peterson Hernández MD 12/23/2019 I50.31 Acute diastolic (congestive) hea rt failure Reg Hernández MD 12/23/2019 I25.10 Atherosclerotic hear t disease of [place] coronary artery without angina pectoris Reg Hernández MD 11/28/2019 I10 Essential (primary) hypertension Sinai Lagunas PA-C 11/21/2019 I10 Essential (primary) hypertension Reg Hernández MD 11/21/2019 E78.5 Hyperlipidemia, unspecified Peterson Hernández MD 11/21/2019 I50.31 Acute diastolic (congestive) hea rt failure Reg Hernández MD 11/21/2019 I25.10 Atherosclerotic hear t disease of [place] coronary artery without angina pectoris Reg Hernández MD 10/29/2019 I25.10 Atherosclerotic hear t disease of [place] coronary artery without angina pectoris Sinai Lagunas PA-C Plan of Treatment Future Appointment(s):* 08/30/2020 10:15 am - Sinai Lagunas PA-C at Main Office 03/01/2020 - Sinai Lagunas PA-C* I25.10 Atherosclerotic heart disease of [place] coronary artery without angina pectoris* New Labs:* Lipid Panel, Scheduled: 03/01/20 * I25.2 Old myocardial infarction * Z95.5 Presence of coronary angioplasty implant and graft * I10 Essential (primary) hypertension * I34.0 Nonrheumatic mitral (valve) insufficiency * I35.1 Nonrheumatic aortic (valve) insufficiency * E78.5 Hyperlipidemia, unspecified* New Labs:* Lipid Panel, Scheduled: 03/01/20 * Liver Profile, Scheduled: 03/01/20 * I65.23 Occlusion and stenosis of bilateral carotid arteries * I73.9 Peripheral vascular disease, unspecified * All * Follow up:* 6 month follow up. Request office note and peripheral vascular US from Dr. Guzman. Functional Status Functional Condition Comment Date Status Independent with all ADL's Activ e Mental Status Description No Information Available Referrals Description No Information Available
--- OUTSIDE RECORDS SUMMARY | 2020-05-14 11:33 | CCD ---
Author Author [facility] Organization [facility] Address Unknown Phone Unavailable Care Team Providers Care Care Management Associate Name Role Phone Francomatt Sloane Unavailable PROBLEMS Type Condition ICD9-CM Code OVJ01-MM Code Onset Dates Condition S tatus SNOMED Code Notes Problem Essential hypertension I10 Active 26514177 Problem Anxiety F41.9 Active 43055438 Problem [facility] (current) use of insulin Z79.4 Activ e 391830665 Problem Gastroesophageal reflux disease without esophagitis K21.9 Active 353794880 Problem Hypomagnesemia E83.42 Active 658543634 Problem Coronary artery disease invo lving [place] coronary artery of [place] heart without angina pectoris I25.10 Active 406506044773 7 Problem 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 Active 07104950 Problem CKD (chronic kidney disease) stage 3, GFR 30-59 ml/min N18.3 Active 748150113 Problem Skin ulcer of right foot with fat layer exposed L9 7.512 Active 18691682 ALLERGIES No Known Allergies ENCOUNTERS from 1945 to 2020-04-30 Encounter Location Date Provider Diagnosis [facility] [place] [address] Apr Sloane Urrutia Type 2 diabetes mellitus with other circ ulatory complications E11.59 IMMUNIZATIONS Vaccine Route Administration Date Status Influenza (18 yrs & older) Flublok IM Intramuscular Jan 11 0 Administered SOCIAL HISTORY Tobacco Use: Social History Observation Description Date Details (start date - stop date) Former Smoker Sex Assigned At : Social History Observation Description Sex Assigned At Unknown Audit Question Answer Notes Total Score: 0 Interpretation: Alcohol Education Language: Question Answer Notes Languages spoken: Lithuanian Sexual Hx: Question Answer Notes Had sex in the last 12 months (vaginal, oral, or anal)? No Have you ever had an STD? No Drug and Alcohol Question Answer Notes Total Score: 0 Interpretation: No problems reported Alcohol Screening: Question Answer Notes Did you have a drink containing alcohol in the past year? No Points 0 Interpretation Negative Tobacco Use: Question Answer Notes Are you a: former smoker How long has it been since you last smoked? > 10 years REASON FOR REFERRAL No Information VITAL SIGNS No information MEDICATIONS Medication SIG (Take, Route, Frequency, Duration) Notes Start Da te End Date Status Duloxetine HCl 60 MG 1 capsule Orally Once a day for 30 day(s) Active Trandolapril 1 MG 0.5 tablet Orally Once a day for 30 day(s) August, Active Hydrocodone-Acetaminophen 5-325 MG (Schedule II Drug) TAKE 1 TABLET BY MOUTH EVERY 6 HOURS NEEDED FOR PAIN . DO NOT EXCEED 4 PER 24 HOURS Oral for 2 Not-Taking Hydrocodone-Acetaminophen 10-325 MG 1 tablet as needed Orally every 6 hrs MDD 4 for 5 day(s) Feb, Not-Taking Carvedilol 25 MG 0.5 tablet with food Orally Twice a day Active Biofreeze 1 application topically dqaily as needed for pain Active Isosorbide Mononitrate ER 30 MG 1 tablet in the mornin g Orally Once a day for 30 day(s) Active Meclizine HCl 50 MG 1 tablet as needed Orally every 8 hours Active Brilinta 90 MG 1 tablet Orally Twice a day for 30 day(s) Active Ranexa 500 MG 1 tablet Orally Twice a day for 90 day(s) Active Nitrostat 0.4 MG as directed Sublingual Active Acetaminophen 325 MG 2 tablet as needed Orally every 4 hrs Active Omeprazole 20 MG 1 capsule 30 minutes before morning meal Orally Once a day for 90 day(s) Jan, Active Atorvastatin Calcium 80 MG 1 tablet Orally Once a day for 90 day(s) Active Victoza 18 MG/3ML 1.8 mg Subcutaneous Daily for 90 day(s) Active Aspir-Low 81 MG 1 tablet Orally Once a day Active Metformin HCl 1000 MG 1 tablet in the morning and 1.5 tablets in the evening Orally twice a day Active Ferrous Sulfate 325 (65 Fe) MG 1 tablet Orally Once a day for 30 day( s) Active Clopidogrel Bisulfate 75 MG 1 tablet Orally Once a day for 90 day(s) Active Pantoprazole Sodium 40 MG 1 tablet Orally twice a day for 90 day(s) Active Slow Fe 142 (45 Fe) MG 1 tablet Orally Once a day for 90 day(s) Active Gabapentin 800 MG 1 tablet Orally Once a day for 30 day(s) Active Magnesium Chloride 64 MG 1 tablet Orally ONCE a day Active Ranolazine ER 500 MG TAKE 1 TABLET BY MOUTH TWICE DAILY Oral for 90 Active PROCEDURES No Information RESULTS No Results REASON FOR VISIT refill MEDICAL (GENERAL) HISTORY Type Description Date Medical History Diabetes with CKD and Neuropathy Medical History HTN Medical History CAD with stenting Medical History Hyperlipidemia Medical History Anxiety Medical History GERD Medical History Podiatry: Nikolas Wilde Medical History Vascular: Dr. Didi Guzman Surgical History BTL 1975 Surgical History LSO 1980 Surgical History stent placed on Right leg 2007 Surgical History Breast biopsy in each breast: negative: Giovany 2009 Surgical History Cataract: [place] for Sight 2013 Surgical History colonoscopy: Michael: adenomatous polyp 2014 Surgical History cardiac cath with stents: [facility] 04/2019 Surgical History Fem/pop bypass Surgical History stent placed 09/2019 Hospitalization History [place] at [facility] 1992 Hospitalization History cardiac 04/2019 Hospitalization History [facility]- right foot ulcer 06/01/19 Hospitalization History anemia 06/30/19 Hospitalization History [facility] for 2 days for pneumonia 08/[address] [facility] for 3 days-stent placed 09/2019 Hospitalization History [facility] - Low magnesium 03/2020 Goals Section No Information Health Concerns No Information MEDICAL EQUIPMENT No Information MENTAL STATUS No Information FUNCTIONAL STATUS No Information ASSESSMENTS Encounter Date Diagnosis Assessment Notes Treatment Notes Treatm ent Clinical Notes Apr, Type 2 diabetes mellitus wit h other circulatory complications (ICD- 10 - E11.59) PLAN OF TREATMENT Medication Medication Name Sig Start Date Stop Date Carvedilol 25 MG 0.5 tablet with food Orally Twice a day Victoza 18 MG/3ML 1.8 mg Subcutaneous Daily for 90 day(s) Slow Fe 142 (45 Fe) MG 1 tablet Orally Once a day for 90 day(s) Pantoprazole Sodium 40 MG 1 tablet Orally twice a day for 90 day (s) Next Appt Details Provider Name:Sloane Urrutia, 2020-0 1-19 03:00:00 PM, [address] [place], [address], Insurance Providers Payer Name Payer Address Payer Phone Insured Name Patient Relati onship to Insured Coverage Start Date Coverage End Date [facility] [employer] [facility] CLAIM DIV [address] [facility] [place] [phone] MIREILLE RODAS MEDICARE Part A and B [address] [facility] [phone] MIREILLE RODAS self
--- OUTSIDE RECORDS SUMMARY | 2020-05-14 11:33 | CCD ---
Author Author [facility] Organization [facility] Address Unknown Phone Unavailable Care Team Providers Care Electronic Tester Name Role Phone Sloane Urrutia Unavailable PROBLEMS Type Condition ICD9-CM Code [id number] Code Onset Dates Condition S tatus SNOMED Code Notes Problem Essential hypertension I10 Active 73851138 Problem Anxiety F41.9 Active 75649140 Problem senior living (current) use of insulin Z79.4 Activ e 548898644 Problem Gastroesophageal reflux disease without esophagitis K21.9 Active 460767554 Problem Hypomagnesemia E83.42 Active 088418133 Problem Coronary artery disease invo lving [place] coronary artery of [place] heart without angina pectoris I25.10 Active 545526222342 7 Problem 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 Active 89986137 Problem CKD (chronic kidney disease) stage 3, GFR 30-59 ml/min N18.3 Active 607364509 Problem Skin ulcer of right foot with fat layer exposed L9 7.512 Active 37211076 ALLERGIES No Known Allergies ENCOUNTERS from 1945 to 2020-04-28 Encounter Location Date Provider Diagnosis [facility] [place] [address] Apr Sloane Urrutia IMMUNIZATIONS Vaccine Route Administration Date Status Influenza (18 yrs & older) Flublok IM Intramuscular Jan 11 0 Administered SOCIAL HISTORY Tobacco Use: Social History Observation Description Date Details (start date - stop date) Former Smoker Sex Assigned At : Social History Observation Description Sex Assigned At Unknown Audit Question Answer Notes Total Score: 0 Interpretation: Alcohol Education Language: Question Answer Notes Languages spoken: Irish Sexual Hx: Question Answer Notes Had sex [...] Notes Start Da te End Date Status Isosorbide Mononitrate ER 30 MG 1 tablet in the mornin g Orally Once a day for 30 day(s) Active Trandolapril 1 MG 0.5 tablet Orally Once a day for 30 day(s) August, Active Duloxetine HCl 60 MG 1 capsule Orally Once a day for 30 day(s) Active Hydrocodone-Acetaminophen 10-325 MG 1 tablet as needed Orally every 6 hrs MDD 4 for 5 day(s) Feb, Not-Taking Brilinta 90 MG 1 tablet Orally Twice a day for 30 day(s) Active Atorvastatin Calcium 80 MG 1 tablet Orally Once a day for 90 day(s) Active Carvedilol 25 MG 0.5 tablet with food Orally Twice a day Active Meclizine HCl 50 MG 1 tablet as needed Orally every 8 hours Active Pantoprazole Sodium 40 MG 1 tablet Orally twice a day for 90 day(s) Active Ranexa 500 MG 1 tablet Orally Twice a day for 90 day(s) Active Nitrostat 0.4 MG as directed Sublingual Active Acetaminophen 325 MG 2 tablet as needed Orally every 4 hrs Active Clopidogrel Bisulfate 75 MG 1 tablet Orally Once a day for 90 day(s) Active Omeprazole 20 MG 1 capsule 30 minutes before morning meal Orally Once a day for 90 day(s) Jan, Active Magnesium Chloride 64 MG 1 tablet Orally ONCE a day Active Ranolazine ER 500 MG TAKE 1 TABLET BY MOUTH TWICE DAILY Oral for 90 Active Slow Fe 142 (45 Fe) MG 1 tablet Orally Once a day for 90 day(s) Active Biofreeze 1 application topically dqaily as needed for pain Active Aspir-Low 81 MG 1 tablet Orally Once a day Active Metformin HCl 1000 MG 1 tablet in the morning and 1.5 tablets in the evening Orally twice a day Active Victoza 18 MG/3ML 1.8 mg Subcutaneous Daily for 90 day(s) Active Gabapentin 800 MG 1 tablet Orally Once a day for 30 day(s) Active Ferrous Sulfate 325 (65 Fe) MG 1 tablet Orally Once a day for 30 day( s) Active Hydrocodone-Acetaminophen 5-325 MG (Schedule II Drug) TAKE 1 TABLET BY MOUTH EVERY 6 HOURS NEEDED FOR PAIN . DO NOT EXCEED 4 PER 24 HOURS Oral for 2 Not-Taking PROCEDURES No Information RESULTS No Results REASON FOR VISIT issue with label MEDICAL (GENERAL) HISTORY Type Description Date Medical [...] breast: negative: Giovany 2009 Surgical History Cataract: [facility] 2013 Surgical History colonoscopy: [facility]: adenomatous polyp 2014 Surgical History cardiac cath with stents: [facility] 04/2019 Surgical History Fem/pop bypass Surgical History stent placed 09/[address] [facility] 1992 Hospitalization History cardiac 04/2019 Hospitalization History [facility]- [facility] foot [facility] 06/01/19 Hospitalization History anemia 06/30/19 Hospitalization History [facility] for 2 days for pneumonia 08/[address] [facility] for [facility] days-stent placed 09/2019 Hospitalization History [facility] - Low magnesium 03/2020 Goals Section No Information Health Concerns No Information MEDICAL EQUIPMENT No Information MENTAL STATUS No Information FUNCTIONAL STATUS No Information ASSESSMENTS No Information PLAN OF TREATMENT Medication Medication Name Sig Start Date Stop Date Pantoprazole Sodium 40 MG 1 tablet Orally twice a day for 90 day (s) Carvedilol 25 MG 0.5 tablet with food Orally Twice a day Slow Fe 142 (45 Fe) MG 1 tablet Orally Once a day for 90 day(s) Next Appt Details Provider Name:Sloane Urruita, 05-11 03:00:00 PM, [place], [address], Insurance Providers Payer Name Payer Address Payer Phone Insured Name Patient Relati onship to Insured Coverage Start Date Coverage End Date MEDICARE Part A and B [address] [facility] [phone] MIREILLE RODAS self [facility]ALTH C[facility] CLAIM DIV [address] [facility] [id number] MIREILLE RODAS self
--- OUTSIDE RECORDS SUMMARY | 2020-05-14 11:33 | CCD ---
Author Author [facility] Organization [facility] Address Unknown Phone Unavailable Care Team Providers Care Spar Finisher Name Role Phone Francomatt Sloane Unavailable PROBLEMS Type Condition ICD9-CM Code [id number] Code Onset Dates Condition S tatus SNOMED Code Notes Problem Essential hypertension I10 Active 49053161 Problem Anxiety F41.9 Active 15333465 Problem [facility] (current) use of insulin Z79.4 Activ e 518145012 Problem Gastroesophageal reflux disease without esophagitis K21.9 Active 528725857 Problem Hypomagnesemia E83.42 Active 050796886 Problem Coronary artery disease invo lving [place] coronary artery of [place] heart without angina pectoris I25.10 Active 567130273943 7 Problem 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 Active 00426051 Problem CKD (chronic kidney disease) stage 3, GFR 30-59 ml/min N18.3 Active 356030171 Problem Skin ulcer of right foot with fat layer exposed L9 7.512 Active 04186395 ALLERGIES No Known Allergies ENCOUNTERS from 1945 to 2020-04-14 Encounter Location Date Provider Diagnosis [facility] [address] [place] [id number] Mar Sloane Urrutia Essential hypertension I10 ; Type 2 diab etes mellitus with other circulatory complications E11.59 ; CKD (chronic kidney disease) stage 3, GFR 30- 59 ml/min N18.3 ; Coronary artery disease involving [place] coronary artery of [place] heart without angina pectoris I25.10 ; Gastroesophageal reflux disease without esophagitis K21.9 ; Anemia, unspecified type D64.9 and Hypomagnesemia E83.42 IMMUNIZATIONS Vaccine Route Administration Date Status Influenza (18 yrs & older) Flublok IM Intramuscular Jan 11 0 Administered SOCIAL HISTORY Tobacco Use: Social History Observation Description Date Details (start date - stop date) Former Smoker Sex Assigned At : Social History Observation Description Sex Assigned At Unknown Audit Question Answer Notes Total Score: 0 Interpretation: Alcohol Education Language: Question Answer Notes Languages spoken: Belarusian Sexual Hx: Question Answer Notes Had sex [...] REASON FOR REFERRAL No Information VITAL SIGNS Weight 130 lbs Mar, Height 60 in Mar, BMI 25.39 kg/m2 Mar, Heart Rate 75 /min Mar, Respiratory Rate 166 /min Mar, Temperature 98.1 degrees Fahrenheit Mar, Oximetry 99 Mar, Blood pressure systolic 104 mm Hg Mar, Blood pressure diastolic 58 mm Hg Mar, MEDICATIONS Medication SIG (Take, Route, Frequency, Duration) [...] for 2 Not-Taking PROCEDURES No Information RESULTS Component Value Reference Range CBC with Differential Reviewed date:04/13/2020 07:15:37 Interpretation: Performing Lab:[facility], [facility] [id number] , ,[place] [address] WHITE BLOOD COUNT 5.3 4.0-10.0 RED BLOOD COUNT 3.35 4.00-5.40 HEMOGLOBIN 9.5 12.0-15.5 HEMATOCRIT 31.9 36.0-47.0 MEAN CORPUSCULAR VOLUME 95.2 80.0-96.0 MEAN CORPUSCULAR HEMOGLOBIN 28.4 27.0-33.0 MEAN CORPUSCULAR HGB CONC 29.8 32.0-36.5 RED CELL DISTRIBUTION WIDTH 15.0 11.5-14.5 PLATELET COUNT, AUTOMATED 219 150-450 NEUTROPHILS % 65.2 36.0-66.0 LYMPH % 22.2 24.0-44.0 MONO % 8.6 0.0-5.0 EOS % 3.0 0.0-3.0 BASO % 0.4 0.0-1.0 NEUTROPHILS # 3.5 1.5-8.5 LYMPH # 1.2 1.5-5.0 MONO # 0.5 0.0-0.8 EOS # 0.2 0.0-0.5 BASO # 0.0 0.0-0.2 REASON FOR VISIT 4 week follow up MEDICAL (GENERAL) HISTORY Type Description Date Medical [...] Giovany 2009 [facility] Surgical History colonoscopy: [facility]: adenomatous polyp 2014 Surgical History cardiac cath with stents: [facility] 04/2019 Surgical History Fem/pop bypass Surgical History stent placed 09/2019 Hospitalization History [place] [facility] 1992 Hospitalization History cardiac 04/2019 Hospitalization History [facility]- right foot ulcer 06/01/19 Hospitalization History anemia 06/30/19 Hospitalization History [facility] for [facility] days for pneumonia 08/[address] [facility] for [facility] days-stent placed 09/2019 Hospitalization History [facility] Obs - Low magnesium 03/2020 Goals Section No Information Health Concerns No Information MEDICAL EQUIPMENT No Information MENTAL STATUS No Information FUNCTIONAL STATUS No Information ASSESSMENTS Encounter Date Diagnosis Assessment Notes Treatment Notes Treatm ent Clinical Notes Mar, Essential hypertension (ICD-10 - I10) Continue Carvedilol at current dosing. 25 mg dosing causes hypotension. Has some signs of orthostatic hypotension which may be due to Ranlozine Mar, Type 2 diabetes mellitus wit h other circulatory complications (ICD- 10 - E11.59) Hgba1c 5.7 12/2019. REviewed s/s hypoglycemia. HOLD Victoza monitor sugars and repeat labs in 4 weeks. A trial her off of her Victoza to see if that helps with any of her GI symptoms and in turn may improve her hypomagnesemia due to decreased loss of mag. Mar, CKD (chronic kidney disease) stage 3, GFR 30-59 ml/min (ICD-10 - N18.3) stable. continue with Dr. Paiz consult. Mar, Coronary artery disease invo lving [place] coronary artery of blackfeet heart without angina pectoris (ICD-10 - I25.10) Cont with cardiology. Mar, Gastroesophageal reflux dise ase without esophagitis (ICD-10 - K21.9) limit acidic foods including tomatoes. Continue current medication. This is definitely a contributing factor to her low magnesium levels. We will attempt to have her on the lowest dose possible. She will continue with gastroenterology Mar, Anemia, unspecified type (ICD-10 - D64.9) Mar, Hypomagnesemia (ICD-10 - E83.42) Patient stays at the 1.5-1.6 range, typically at baseline. We will continue with nephrology for further evaluation of hypomagnesemia causes and continue to try to cut down on medications that may have contributing factors Mar, Other Patient and jhoan christyca verbalized understanding and agreement with plan. PLAN OF TREATMENT Medication Medication Name Sig Start Date Stop Date Pantoprazole Sodium 40 MG 1 tablet Orally twice a day for 90 day (s) Carvedilol 25 MG 0.5 tablet with food Orally Twice a day Slow Fe 142 (45 Fe) MG 1 tablet Orally Once a day for 90 day(s) Treatment Notes Assessment Notes Clinical Notes Essential hypertension Continue Carvedil ol at current dosing. 25 mg dosing causes hypotension. Has some signs of orthostatic hypotension which may be due to Ranlozine Type 2 diabetes mellitus with other circulatory complication s Hgba1c 5.7 12/2019. REviewed s/s hypoglycemia. HOLD Victoza monitor sugars and repeat labs in 4 weeks.A trial her off of her Victoza to see if that helps with any of her GI symptoms and in turn may improve her hypomagnesemia due to decreased loss of mag. CKD (chronic kidney disease) stage 3, GFR 30-59 ml/min stable. continue with Dr. Paiz consult. Coronary artery disease involving blackfeet coronary artery of blackfeet heart without angina pectoris Cont with cardiology. Gastroesophageal reflux disease without esophagitis limit acidic foods including tomatoes. Continue current medication. This is definitely a contributing factor to her low magnesium levels. We will attempt to have her on the lowest dose possible. She will continue with gastroenterology Hypomagnesemia Patient stays at the 1.5-1.6 range, typically at baseline. We will continue with nephrology for further evaluation of hypomagnesemia causes and continue to try to cut down on medications that may have contributing factors Treatment Notes Test Name Order Date Occult Blood, Stool, Guaiac 2020-04-14 Future Test Test Name Order Date Comprehensive Metabolic Profile (CMP) 20200510 MAGNESIUM LEVEL 20200510 CBC with Differential 20200510 HEMOGLOBIN A1c 20200510 Next Appt Details 4 Weeks Reason: Provider Name:Sloane Urrutia, 05-11 03:00:00 PM, [address] , [place], [address], Insurance Providers Payer Name Payer Address Payer Phone Insured Name Patient Relati onship to Insured Coverage Start Date Coverage End Date MEDICARE Part A and B [address] [facility] [phone] MIREILLE RODAS [facility] HEALTH CARE [employer] [facility] [address] [facility] [phone] MIREILLE RODAS self
--- OUTSIDE RECORDS SUMMARY | 2020-05-14 11:33 | CCD ---
Author Author [facility] Organization [facility] Address Unknown Phone Unavailable Care Team Providers Care Hardscape Foreman Name Role Phone Renan Sloane Unavailable PROBLEMS Type Condition ICD9-CM Code [id number] Code Onset Dates Condition S tatus SNOMED Code Notes Problem Essential hypertension I10 Active 37351711 Problem Anxiety F41.9 Active 23349317 Problem longterm (current) use of insulin Z79.4 Activ e 319773107 Problem Gastroesophageal reflux disease without esophagitis K21.9 Active 575918856 Problem Hypomagnesemia E83.42 Active 237542972 Problem Coronary artery disease invo lving [place] coronary artery of [place] heart without angina pectoris I25.10 Active 017728261925 7 Problem 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 Active 82018218 Problem CKD (chronic kidney disease) stage 3, GFR 30-59 ml/min N18.3 Active 713091533 Problem Skin ulcer of right foot with fat layer exposed L9 7.512 Active 60179131 ALLERGIES No Known Allergies ENCOUNTERS from 1945 to 2020-03-25 Encounter Location Date Provider Diagnosis [facility] [address] [place] [address] Mar Sloane Urrutia IMMUNIZATIONS Vaccine Route Administration Date [...] Education Language: Question Answer Notes Languages spoken: Hebrew Sexual Hx: Question Answer Notes Had sex [...] Notes Start Da te End Date Status Victoza 18 MG/3ML 1.8 mg Subcutaneous Daily for 90 day(s) Unknown Ranolazine ER 500 MG TAKE 1 TABLET BY MOUTH TWICE DAILY Oral for 90 Unknown Clopidogrel Bisulfate 75 MG 1 tablet Orally Once a day for 90 day(s) Unknown Trandolapril 1 MG 0.5 tablet Orally Once a day for 30 day(s) August, Unknown Brilinta 90 MG 1 tablet Orally Twice a day for 30 day(s) Unknown Metformin HCl 1000 MG 1 tablet in the morning and 1.5 tablets in the evening Orally twice a day Unknown Omeprazole 20 MG 1 capsule 30 minutes before morning meal Orally Once a day for 90 day(s) Jan, Unknown Isosorbide Mononitrate ER 30 MG 1 tablet in the mornin g Orally Once a day for 30 day(s) Unknown Duloxetine HCl 60 MG 1 capsule Orally Once a day for 30 day(s) Unknown Hydrocodone-Acetaminophen 10-325 MG 1 tablet as needed Orally every 6 hrs MDD 4 for 5 day(s) Feb, Unknown Magnesium Chloride 64 MG 1 tablet Orally ONCE a day Unknown Atorvastatin Calcium 80 MG 1 tablet Orally Once a day for 90 day(s) Unknown Nitrostat 0.4 MG as directed Sublingual Unknown Ranexa 500 MG 1 tablet Orally Twice a day for 90 day(s) Unknown Aspir-Low 81 MG 1 tablet Orally Once a day Unknown Ferrous Sulfate 325 (65 Fe) MG 1 tablet Orally Once a day for 30 day( s) Unknown Acetaminophen 325 MG 2 tablet as needed Orally every 4 hrs Unknown Meclizine HCl 50 MG 1 tablet as needed Orally every 8 hours Unknown Biofreeze 1 application topically dqaily as needed for pain Unknown Gabapentin 800 MG 1 tablet Orally Once a day for 30 day(s) Unknown Pantoprazole Sodium 40 MG 1 tablet Orally twice a day for 90 day(s) Unknown Levemir 100 UNIT/ML 15 units Subcutaneous Daily Unknown Slow Fe 142 (45 Fe) MG 1 tablet Orally Once a day for 90 day(s) Unknown Hydrocodone-Acetaminophen 5-325 MG (Schedule II Drug) TAKE 1 TABLET BY MOUTH EVERY 6 HOURS NEEDED FOR PAIN . DO NOT EXCEED 4 PER 24 HOURS Oral for 2 Unknown Carvedilol 25 MG 0.5 tablet with food Orally Twice a day Unknown PROCEDURES No Information RESULTS No Results REASON FOR VISIT [facility] D/ 03/23 MEDICAL (GENERAL) HISTORY Type Description Date Medical [...] 2014 Surgical History cardiac cath with stents: [facility] 04/2019 Surgical History Fem/pop bypass Surgical History stent placed 09/2019 Hospitalization History DC at [facility] 1992 Hospitalization History cardiac 04/2019 Hospitalization History [facility]- [facility] foot ulcer 06/01/19 Hospitalization History anemia 06/30/19 Hospitalization History [facility] for [facility] days for pneumonia 08/[address] [facility] for [facility] days-stent placed 09/2019 Goals Section No Information Health Concerns No Information MEDICAL EQUIPMENT No Information MENTAL STATUS No Information FUNCTIONAL STATUS No Information ASSESSMENTS Encounter Date Diagnosis Assessment Notes Treatment Notes Treatm ent Clinical Notes Mar, Other Discussion with patient PLAN OF TREATMENT Next Appt Details Provider Name:Sloane Urrutia, 2019-04 03:00:00 PM, [place], [address], Provider Name:Sloane Urrutia 2019-04 10:00:00 AM, [place], [address], Insurance Providers Payer Name Payer Address Payer Phone Insured Name Patient Relati onship to Insured Coverage Start Date Coverage End Date MEDICARE Part A and B [facility] [address] [place] [phone] MIREILLE RODAS [facility] HEALTH CARE [facility] CLAIM DIV [address] [facility] [phone] MIREILLE RODAS self
--- OUTSIDE RECORDS SUMMARY | 2020-05-14 11:33 | CCD ---
Author Author [facility] Organization [facility] Address Unknown Phone Unavailable Care Team Providers Care Lift Supervisor Name Role Phone Sloane Urrutia Unavailable PROBLEMS Type Condition ICD9-CM Code [id number] Code Onset Dates Condition S tatus SNOMED Code Notes Problem Essential hypertension I10 Active 25278521 Problem Anxiety F41.9 Active 66659483 Problem longterm (current) use of insulin Z79.4 Activ e 211375884 Problem Gastroesophageal reflux disease without esophagitis K21.9 Active 344965706 Problem Hypomagnesemia E83.42 Active 600979642 Problem Coronary artery disease invo lving [place] coronary artery of [place] heart without angina pectoris I25.10 Active 880491178739 7 Problem 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 Active 76508571 Problem CKD (chronic kidney disease) stage 3, GFR 30-59 ml/min N18.3 Active 216135847 Problem Skin ulcer of right foot with fat layer exposed L9 7.512 Active 32700355 ALLERGIES No Known Allergies ENCOUNTERS from 1945 to 2020-05-10 Encounter Location Date Provider Diagnosis [facility] [place] [address] Apr Sloane Urrutia IMMUNIZATIONS Vaccine Route Administration [...] Education Language: Question Answer Notes Languages spoken: Bulgarian Sexual Hx: Question Answer Notes Had sex [...] with food Orally Twice a day Active Ferrous Sulfate 325 (65 Fe) MG 1 tablet Orally Once a day for 30 day( s) Active Isosorbide Mononitrate ER 30 MG 1 tablet in the mornin g Orally Once a day for 30 day(s) Active Nitrostat 0.4 MG as directed Sublingual Active Brilinta 90 MG 1 tablet Orally Twice a day for 30 day(s) Active Acetaminophen 325 MG 2 tablet as needed Orally every 4 hrs Active Ranexa 500 MG 1 tablet Orally Twice a day for 90 day(s) Active Gabapentin 800 MG 1 tablet Orally Once a day for 30 day(s) Active Atorvastatin Calcium 80 MG 1 tablet Orally Once a day for 90 day(s) Active Biofreeze 1 application topically dqaily as needed for pain Active Meclizine HCl 50 MG 1 tablet as needed Orally every 8 hours Active Aspir-Low 81 MG 1 tablet Orally Once a day Active Metformin HCl 1000 MG 1 tablet in the morning and 1.5 tablets in the evening Orally twice a day Active Magnesium Chloride 64 MG 1 tablet Orally ONCE a day Active Clopidogrel Bisulfate 75 MG 1 tablet Orally Once a day for 90 day(s) Active Pantoprazole Sodium 40 MG 1 tablet Orally twice a day for 90 day(s) Active Slow Fe 142 (45 Fe) MG 1 tablet Orally Once a day for 90 day(s) Active Omeprazole 20 MG 1 capsule 30 minutes before morning meal Orally Once a day for 90 Active Victoza 18 MG/3ML 1.8 mg Subcutaneous Daily for 90 day(s) Active Ranolazine ER 500 MG TAKE 1 TABLET BY MOUTH TWICE DAILY Oral for 90 Active PROCEDURES No Information RESULTS No Results REASON FOR VISIT magnesium?? MEDICAL (GENERAL) HISTORY Type Description Date Medical [...] breast: negative: Giovany 2009 Surgical History Cataract: [place] for [facility] 2013 Surgical History colonoscopy: [place]: adenomatous polyp 2014 Surgical History cardiac cath with stents: [facility] 04/2019 Surgical History Fem/pop bypass Surgical History stent placed 09/2019 Hospitalization History [place] at [facility] 1992 Hospitalization History cardiac 04/2019 Hospitalization History [facility]- [facility] foot [facility] 06/01/19 Hospitalization History anemia 06/30/19 Hospitalization History [facility] for 2 days for pneumonia 08/[address] [facility] for [facility] days-stent placed 09/2019 Hospitalization History [facility] Obs - Low magnesium 03/2020 Goals Section No Information Health Concerns No Information MEDICAL EQUIPMENT No Information MENTAL STATUS No Information FUNCTIONAL STATUS No Information ASSESSMENTS No Information PLAN OF TREATMENT Medication Medication Name Sig Start Date Stop Date Victoza 18 MG/3ML 1.8 mg Subcutaneous Daily for 90 day(s) Omeprazole 20 MG 1 capsule 30 minutes before morning meal Orally Once a day for 90 Pantoprazole Sodium 40 MG 1 tablet Orally twice a day for 90 day (s) Carvedilol 25 MG 0.5 tablet with food Orally Twice a day Slow Fe 142 (45 Fe) MG 1 tablet Orally Once a day for 90 day(s) Next Appt Details Provider Name:Sloane Urrutia, 05-11 03:00:00 PM, [address] [place], [address], Insurance Providers Payer Name Payer Address Payer Phone Insured Name Patient Relati onship to Insured Coverage Start Date Coverage End Date MEDICARE Part A and B [address] [facility] [phone] MIREILLE RODAS [facility] CLAIM [facility] [address] [facility] [phone] MIREILLE RODAS self
--- OUTSIDE RECORDS SUMMARY | 2020-05-14 11:33 | CCD ---
Author Author [facility] Organization [facility] Address Unknown Phone Unavailable Care Team Providers Care Director Of Quantitative Research Name Role Phone Renan Sloane Unavailable PROBLEMS Type Condition ICD9-CM Code [id number] Code Onset Dates Condition S tatus SNOMED Code Notes Problem Essential hypertension I10 Active 69500865 Problem Anxiety F41.9 Active 54398242 Problem long-term (current) use of insulin Z79.4 Activ e 752793674 Problem Gastroesophageal reflux disease without esophagitis K21.9 Active 757764572 Problem Hypomagnesemia E83.42 Active 342056368 Problem Coronary artery disease invo lving [place] coronary artery of [place] heart without angina pectoris I25.10 Active 527169185116 7 Problem 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 Active 93845013 Problem CKD (chronic kidney disease) stage 3, GFR 30-59 ml/min N18.3 Active 808586912 Problem Skin ulcer of right foot with fat layer exposed L9 7.512 Active 05298282 ALLERGIES No Known Allergies ENCOUNTERS from 1945 to 2020-04-14 Encounter Location Date Provider Diagnosis [facility] [place] [address] Mar Sloane Urrutia IMMUNIZATIONS Vaccine Route Administration [...] Education Language: Question Answer Notes Languages spoken: Korean Sexual Hx: Question Answer Notes Had sex [...] Information RESULTS No Results REASON FOR VISIT No Information MEDICAL (GENERAL) HISTORY Type Description Date Medical [...] [facility] 2013 Surgical History colonoscopy: [place]: adenomatous polyp 2014 Surgical History cardiac cath with stents: [facility] 04/2019 Surgical History Fem/pop bypass Surgical History stent placed 09/2019 Hospitalization History [place] at [facility] 1992 Hospitalization History cardiac 04/2019 Hospitalization History [facility]- right foot ulcer 06/01/19 Hospitalization History anemia 06/30/19 Hospitalization History [facility] for 2 days for pneumonia 08/2019 Hospitalization [...] Details Provider Name:Sloane Urrutia, 05-11 03:00:00 PM, [place], [address], Insurance Providers Payer Name Payer Address Payer Phone Insured Name Patient Relati onship to Insured Coverage Start Date Coverage End Date MEDICARE Part A and B [facility] [address] [place] [phone] [facility] HEALTH CARE [facility] CLAIM DIV [address] [facility] [phone] MIREILLE RODAS self
--- NOTE | 2020-05-14 11:34 | REP ---
INDICATION: CHEST PAIN. COMPARISON: 11/04/2019. TECHNIQUE: SINGLE PORTABLE AP VIEW OF THE CHEST WAS PERFORMED. FINDINGS: And there are diffuse interstitial infiltrates present bilaterally. The heart is not enlarged. There is calcification of the thoracic aorta. The mediastinal silhouette is unremarkable. IMPRESSION: Diffuse bilateral interstitial infiltrates. <Electronically signed by Jovanny Zamora > 05/14/20 7800
--- OUTSIDE RECORDS SUMMARY | 2020-05-14 11:34 | CCD ---
Author Author [facility] Organization [facility] Address Unknown Phone Unavailable Care Team Providers Care Mechanic Recovery Name Role Phone Sloane Urrutia Unavailable PROBLEMS Type Condition ICD9-CM Code [id number] Code Onset Dates Condition S tatus SNOMED Code Notes Problem Essential hypertension I10 Active 15436626 Problem Anxiety F41.9 Active 87590682 Problem half-way (current) use of insulin Z79.4 Activ e 896710334 Problem Gastroesophageal reflux disease without esophagitis K21.9 Active 735252360 Problem Hypomagnesemia E83.42 Active 726050383 Problem Coronary artery disease invo lving [place] coronary artery of [place] heart without angina pectoris I25.10 Active 911266352476 7 Problem 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 Active 49699592 Problem CKD (chronic kidney disease) stage 3, GFR 30-59 ml/min N18.3 Active 848917784 Problem Skin ulcer of right foot with fat layer exposed L9 7.512 Active 49166290 ALLERGIES No Known Allergies ENCOUNTERS from 1945 to 2020-03-15 Encounter Location Date Provider Diagnosis [facility] [place] [address] Feb Sloane Urrutia IMMUNIZATIONS No Information SOCIAL HISTORY Tobacco Use: Social History Observation Description Date Details (start date - stop date) Former Smoker Sex Assigned At : Social History Observation Description Sex Assigned At Unknown Audit Question Answer Notes Total Score: 0 Interpretation: Alcohol Education Language: Question Answer Notes Languages spoken: Indonesian Sexual Hx: Question Answer Notes Had sex [...] Once a day for 30 day(s) Active Clopidogrel Bisulfate 75 MG 1 tablet Orally Once a day for 90 day(s) Not-Taking Ranolazine ER 500 MG TAKE 1 TABLET BY MOUTH TWICE DAILY Oral for 90 Active Carvedilol 25 MG 0.5 tablet with food Orally Twice a day Active Acetaminophen 325 MG 2 tablet as needed Orally every 4 hrs Active Meclizine HCl 50 MG 1 tablet as needed Orally every 8 hours Not-Taking Aspir-Low 81 MG 1 tablet Orally Once a day Active Brilinta 90 MG 1 tablet Orally Twice a day for 30 day(s) Active Atorvastatin Calcium 80 MG 1 tablet Orally Once a day for 90 day(s) Active Nitrostat 0.4 MG as directed Sublingual Active Ranexa 500 MG 1 tablet Orally Twice a day for 90 day(s) Not-Taking Metformin HCl 1000 MG 1 tablet in the morning and 1.5 tablets in the evening Orally twice a day Active Pantoprazole Sodium 40 MG 1 tablet Orally twice a day for 90 day(s) Active Ferrous Sulfate 325 (65 Fe) MG 1 tablet Orally Once a day for 30 day( s) Active Slow Fe 142 (45 Fe) MG 1 tablet Orally Once a day for 90 day(s) Active Omeprazole 20 MG 1 capsule 30 minutes before morning meal Orally Once a day for 90 day(s) Jan, Active Trandolapril 1 MG 0.5 tablet Orally Once a day for 30 day(s) August, Active Biofreeze 1 application topically dqaily as needed for pain Not-Taking Gabapentin 800 MG 1 tablet Orally Once a day for 30 day(s) Active Duloxetine HCl 60 MG 1 capsule Orally Once a day for 30 day(s) Active Levemir 100 UNIT/ML 15 units Subcutaneous Daily Active Magnesium Chloride 64 MG 1 tablet Orally ONCE a day Active Victoza 18 MG/3ML 1.8 mg Subcutaneous Daily for 90 day(s) Active PROCEDURES No Information RESULTS No Results REASON FOR VISIT [place] er f/u MEDICAL (GENERAL) HISTORY Type Description Date Medical [...] breast: negative: [facility] 2009 Surgical History Cataract: [facility] 2013 Surgical History colonoscopy: [place]: adenomatous polyp 2014 Surgical History cardiac cath with stents: [facility] 04/2019 Surgical History Fem/pop bypass Surgical History stent placed 09/2019 Hospitalization History [place] at [facility] 1992 Hospitalization History cardiac 04/2019 Hospitalization History [facility]- right foot ulcer 06/01/19 Hospitalization History anemia 06/30/19 Hospitalization History [facility] for [facility] days for pneumonia 08/[address] [facility] for 3 days-stent placed 09/2019 Goals Section No Information Health Concerns No Information MEDICAL EQUIPMENT No Information MENTAL STATUS No Information FUNCTIONAL STATUS No Information ASSESSMENTS No Information PLAN OF TREATMENT Medication Medication Name Sig Start Date Stop Date Pantoprazole Sodium 40 MG 1 tablet Orally twice a day for 90 day (s) Levemir 100 UNIT/ML 15 units Subcutaneous Daily Carvedilol 25 MG 0.5 tablet with food Orally Twice a day Slow Fe 142 (45 Fe) MG 1 tablet Orally Once a day for 90 day(s) Next Appt Details Provider Name:Sloane Urrutia 2019-04 10:30:00 AM, [address] [place], [address], Insurance Providers Payer Name Payer Address Payer Phone Insured Name Patient Relati onship to Insured Coverage Start Date Coverage End Date [employer] [facility] CLAIM DIV [id number] [facility] [phone] MIREILLE RODAS MEDICARE Part A and B [address] [facility] [phone] MIREILLE RODAS
--- OUTSIDE RECORDS SUMMARY | 2020-05-14 11:34 | CCD ---
Author Author [facility] Organization [facility] Address Unknown Phone Unavailable Care Team Providers Care Lieutenant Governor Name Role Phone Sloane Urrutia Unavailable PROBLEMS Type Condition ICD9-CM Code [id number] Code Onset Dates Condition S tatus SNOMED Code Notes Problem Essential hypertension I10 Active 47519217 Problem Anxiety F41.9 Active 80193667 Problem FPC (current) use of insulin Z79.4 Activ e 316371357 Problem Gastroesophageal reflux disease without esophagitis K21.9 Active 947292278 Problem Hypomagnesemia E83.42 Active 296712610 Problem Coronary artery disease invo lving [place] coronary artery of [place] heart without angina pectoris I25.10 Active 410253723644 7 Problem 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 Active 95054173 Problem CKD (chronic kidney disease) stage 3, GFR 30-59 ml/min N18.3 Active 382592559 Problem Skin ulcer of right foot with fat layer exposed L9 7.512 Active 57586833 ALLERGIES No Known Allergies ENCOUNTERS from 1945 to 2020-03-03 Encounter Location Date Provider Diagnosis [facility] [address] [place] [id number] Feb Sloane Urrutia Annual physical exam Z00.00 ; Essential hypertension I10 ; Type 2 diabetes mellitus with other circulatory complications E11.59 ; CKD (chronic kidney disease) stage 3, GFR 30-59 ml/min N18.3 ; Coronary artery disease involving [place] coronary artery of [place] heart without angina pectoris I25.10 ; Gastroesophageal reflux disease without esophagitis K21.9 ; Anemia, unspecified type D64.9 and Hypomagnesemia E83.42 IMMUNIZATIONS No Information SOCIAL HISTORY Tobacco Use: Social History Observation Description Date Details (start date - stop date) Former Smoker Sex Assigned At : Social History Observation Description Sex Assigned At Unknown Audit Question Answer Notes Total Score: 0 Interpretation: Alcohol Education Language: Question Answer Notes Languages spoken: Armenian Sexual Hx: Question Answer Notes Had sex [...] FOR REFERRAL No Information VITAL SIGNS Weight 129 lbs Feb, Height 60 in Feb, BMI 25.19 kg/m2 Feb, Heart Rate 88 /min Feb, Respiratory Rate 18 /min Feb, Temperature 97.6 degrees Fahrenheit Feb, Oximetry 98 Feb, Blood pressure systolic 94 mm Hg Feb, Blood pressure diastolic 50 mm Hg Feb, MEDICATIONS Medication SIG (Take, Route, Frequency, Duration) Start Date En d Date Status Isosorbide Mononitrate ER 30 MG 1 tablet in the mornin g Orally Once a day for 30 day(s) Active Clopidogrel Bisulfate 75 MG 1 tablet Orally Once a day for 90 day(s ) Not-Taking Ranolazine ER 500 MG TAKE 1 [...] Active Nitrostat 0.4 MG as directed Sublingual A ctive Ranexa 500 MG 1 tablet Orally Twice a day for 90 day(s) Not-Taking Metformin HCl 1000 MG 1 tablet in the morning and 1.5 tablets in the evening Orally twice a day Active Pantoprazole Sodium 40 MG 1 tablet Orally twice a day for 90 day(s) Active Ferrous Sulfate 325 (65 Fe) MG 1 tablet Orally Once a day for 30 da y(s) Active Slow Fe 142 (45 Fe) MG 1 tablet Orally Once a day for 90 day(s) Active Omeprazole 20 MG 1 capsule 30 minutes before morning meal Orally Once a day for 90 day(s) Jan, Active Trandolapril 1 MG 0.5 tablet Orally Once a day for 30 day(s) August Active Biofreeze 1 application topically dqaily as [...] 90 day(s) Active PROCEDURES No Information RESULTS Component Value Reference Range Basic Metabolic Profile (BMP) Reviewed date:02/26/2020 07:00:08 Interpretation:Normal Performing Lab:[facility] LAB[facility] [address] [facility] [address] , ,[place] [address] GLUCOSE, FASTING 124 70-100 BLOOD UREA NITROGEN 21 7-18 CREATININE FOR GFR 1.24 0.55-1.30 GLOMERULAR FILTRATION RATE 45.3 >39 SODIUM LEVEL 135 136-145 POTASSIUM SERUM 4.7 3.5-5.1 CHLORIDE LEVEL 103 98-107 CARBON DIOXIDE LEVEL 21 21-32 CALCIUM LEVEL 9.6 8.8-10.2 MAGNESIUM LEVEL Reviewed date:02/26/2020 06:59:29 Interpretation: Performing Lab:[facility], [facility], [facility] [address] [facility] [address] , ,[place] [address] MAGNESIUM LEVEL 1.6 1.8-2.4 REASON FOR VISIT well visit MEDICAL (GENERAL) HISTORY Type Description Date Medical [...] 2014 Surgical History cardiac cath with stents: [facility] 04/2019 Surgical History Fem/pop bypass Surgical History stent placed 09/2019 Hospitalization History [place] at [facility] 1992 Hospitalization History cardiac 04/2019 Hospitalization History [facility]- right foot ulcer 06/01/19 Hospitalization History anemia 06/30/19 Hospitalization History [facility] for 2 days for pneumonia 08/[address] [facility] for 3 days-stent placed 09/2019 Goals Section No Information Health Concerns No Information MEDICAL EQUIPMENT No Information MENTAL STATUS No Information FUNCTIONAL STATUS No Information ASSESSMENTS Encounter Date Diagnosis Notes Feb, Coronary artery disease invo lving [place] coronary artery of [place] heart without angina pectoris (ICD-10 - I25.10) Feb, CKD (chronic kidney disease) stage 3, GFR 30-59 ml/min (ICD-10 - N18.3) Feb, Anemia, unspecified type (ICD-10 - D64.9 ) Feb, Annual physical exam (ICD-10 - Z00.00) Feb, Gastroesophageal reflux dise ase without esophagitis (ICD-10 - K21.9) Feb, Type 2 diabetes mellitus wit h other circulatory complications (ICD- 10 - E11.59) Feb, Essential hypertension (ICD-10 - I10) Feb, Hypomagnesemia (ICD-10 - E83.42) PLAN OF TREATMENT Medication Medication Name Sig [...] diabetes mellitus with other circulatory complication s continue to wean off of Levemir. Hgba1c 5.7 12/2019. REviewed s/s hypoglycemia. CKD (chronic kidney disease) stage 3, GFR 30-59 ml/min stable. continue with Dr. Paiz consult. Coronary artery disease involving [place] coronary artery of [place] heart without angina pectoris Cont with cardiology. Gastroesophageal reflux disease without esophagitis limit acidic foods including tomatoes. Hypomagnesemia repeat level today. Next Appt Details 6-8 weeks Reason: Insurance Providers Payer Name Payer Address Payer Phone Insured Name Patient Relati onship to Insured Coverage Start Date Coverage End Date [facility] HEALTH CARE OPTIONS [facility] CLAIM DIV [id number] [facility] [phone] MIREILLE RODAS MEDICARE Part A and B [address] [facility] [phone] MIREILLE RODAS self
--- OUTSIDE RECORDS SUMMARY | 2020-05-14 11:34 | CCD | Continuity of Care Document ---
Author Author [facility] Organization Unknown Address [address] [place] [address], [address] [place] [address] Phone [phone] Care Team Providers Care Music Publisher Name Role Phone Kameron Fry DO AUTM [phone] Renan MIGUELMary AUTM [phone] Problems Active Problems Provider Date Osteochondropathy Nikolas Malhotra DPM Onset: 05/16/2018 Onychomycosis Nikolas Malhotra DPM Onset: 05/16/2018 Type 2 diabetes mellitus with ulcer Nikolas Malhotra DPM Ons et: 05/16/2018 Social History Type Date Description Comments Sex Unknown ETOH Use Occasionally consumes alcohol Tobacco Use Start: Unknown End: Unknown Patient is a former smoker Quit smoking 1992. smoked for 30 years 1.5PPD Allergies, Adverse Reactions, Alerts Description No Known Drug Allergies Medications Active Medications SIG Qnty Indications Ordering Provide r Date Ondansetron HCL 4mg Tablets 1 tablet every 6 hours as needed for nausea 24tabs [employer] 2019 Linezolid 600mg Tablets 1 by mouth twice a day 28tabs Nikolas Malhotra DPM 06/06/2019 Sivextro 200mg Tablets a tablet by mouth daily 6tabs Nikolas Malhotra DPM 03/26/2019 BD Pen Needle/Mini/Ultra-Fine/31G X 5mm 31G X 5 mm Misc Cristal Guerra M.D. BD Pen Needle/Mini/Ultra-Fine/31G X 5mm 31G X 5 mm Misc Use For Victoza Daily Unknown Magnesium Oxide 400(240Mg) mg Tabl ets Take 2 Tablets By Mouth Twice Daily Unknown 0 Cephalexin 500mg Capsules Unknown Gabapentin 300mg Capsules Charlie Arnett,Radnor Novolog 100Unit/ML Solution Charlie Jeffers.,Radnor BD Pen Needle/Mini/Ultra-Fine/31G X 5mm 31G X 5 mm Misc Charlie Jeffers.,Radnor Ranitidine HCL 150mg Tablets Charlie Vega.D.,Radnor BD Pen Needle/Mini/Ultra-Fine/31G X 5mm 31G X 5 mm Misc Charlie Jeffers.,Radnor Glimepiride 4mg Tablets Charlie Arnett,Radnor Trandolapril 1mg Tablets Charlie Arnett,Radnor Duloxetine HCL 60mg Caps DR Jaleel Guerra M.D.,Radnor Levemir 100Unit/ML Solution Charlie Arnett,Radnor Metformin HCL 1000mg Tablets Charlie Arnett,Radnor Gabapentin 600mg Tablets Charlie Arnett,Radnor Simvastatin 40mg Tablets Charlie Vega.DKannan,Radnor Chlorthalidone 25mg Tablets Charlie Vega.DKannan,Radnor Spironolactone 50mg Tablets Charlie Arnett,Radnor Amoxicillin/Clavulanate Potassium 875-125mg Tablets Unknown Carvedilol 12.5mg Tablets Charlie Vega.DKannan,Radnor Victoza 18mg/3ML Solution Pen-Inject Charlie Arnett,Radnor Gabapentin 800mg Tablets Charlie GuilloryDKannan,Radnor Immunizations Description No Information Available Vital Signs Date Vital Result Comment 06/09/2019 11:15am Height 61 inches 5'1" Weight 138.00 lb BP Systolic 150 mmHg BP Diastolic 66 mmHg Heart Rate 81 /min BMI (Body Mass Index) 26.1 kg/m2 05/08/2018 3:44pm Height 61 inches 5'1" Weight 136.00 lb BP Systolic 102 mmHg BP Diastolic 70 mmHg Heart Rate 83 /min BMI (Body Mass Index) 25.7 kg/m2 Results Description No Information Available Procedures Date Code Description Status 03/09/2020 47162 Debridement 6-10 Nails Electric Completed 01/01/2020 48765 Debridement 6-10 Nails Electric Completed 10/23/2019 06603 Debridement 6-10 Nails Electric Completed Medical Devices Description No Information Available Encounters Description No Information Available Assessments Date Code Description Provider 03/09/2020 B35.1 Tinea unguium Nikolas Malhotra, BINU 03/09/2020 E11.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
--- OUTSIDE RECORDS SUMMARY | 2020-05-14 11:34 | CCD | Continuity of Care Document ---
Author Author Dulce RODRIGEUZ MD Organization Unknown Address [address] [place] [address], [place] [address] Phone [phone] Care Team Providers Care Pension Consultant Name Role Phone Reg Rodriguez MD AUTM [phone] Sloane Urrutia [employer] AUTM [phone] Didi Guzman MD AUTM [phone] Nikolas Wilde DPM AUTM [phone] Raymond Brennan MD AUTM [phone] Problems Active Problems Provider Date Coronary arteriosclerosis [...] PA-C Onset: 014 Acute subendocardial infarction Reg Rodriguez MD Onset: 05/06/2019 Patient post percutaneous transluminal coronary angiop lasty Reg Rodriguez MD Onset: 05/06/2019 Essential hypertension Reg Rodriguez MD Onset: 0 Hyperlipidemia Reg Rodriguez MD Onset: 05/06/2019 Acute diastolic heart failure Reg Rodriguez MD Onset: Electrocardiogram abnormal Reg Rodriguez MD Onset: 05/06 Dietary management surveillance Reg Rodriguez MD Onset: 05/06/2019 Carotid artery occlusion Sinai [...] 1 by mouth every day Sloane Urrutia [facility] 0 Magnesium 400mg Tablets 1 by mouth twice every day Sloane Urrutia [facility] 0 Metformin HCL 1000mg Tablets 1 by mouth twice a day [facility] 0 Iron 325(65Fe) mg Tablets 1 by mouth every day [facility] 0 Isosorbide Dinitrate 30mg Tablets 1 [...] 12.5mg Tablets 1 po bid 60tabs Reg Rodriguez MD 05/16/2010 Aspirin 81mg Tablets 1 by [...] Date Facility Test Result H/L Range Note BMP 02/25/2020 [facility] - not interfaced (315)- - Calcium Ser/Plasma Mass/Vol 9.6 Sodium 135 Carbon Dioxide Ser/Plasm 21 Chloride Serum/Plasma 103 Potassium 4.7 Glucose 124 High 70-100 Blood Urea Nitrogen 21 High 7-18 Creatinine 1.24 0.55-1.30 G F R 45.3 Laboratory test finding 02/25/2020 [facility] - not interf aced (315)- - Magnesium Level 1.6 Low 1.8-2.4 BMP 01/21/2020 [facility] - not interfaced (315)- - Calcium Ser/Plasma Mass/Vol 9.2 Sodium 134 Carbon Dioxide Ser/Plasm 23 Chloride Serum/Plasma 101 Potassium 4.2 Glucose 199 High 70-100 Blood Urea Nitrogen 25 High 7-18 Creatinine 1.24 0.55-1.30 G F R 45.3 Laboratory test finding 01/21/2020 [facility] - not interf aced (315)- - Magnesium Level 1.5 Low 1.8-2.4 BMP 01/12/2020 [facility] - not interfaced (315)- - Calcium Ser/Plasma Mass/Vol 8.6 Sodium 136 Carbon Dioxide Ser/Plasm 27 Chloride Serum/Plasma 104 Potassium 4.4 Glucose 113 High 70-100 Blood Urea Nitrogen 26 High 7-18 Creatinine 1.50 High 0.55-1.30 G F R 36.3 CMP 12/04/2019 [facility] - not interfaced (315)- - Albumin Serum/Plasma 3.5 Alt - SGPT 28 Calcium Ser/Plasma Mass/Vol 9.2 Carbon Dioxide Ser/Plasm 28 Chloride Serum/Plasma 103 Alkaline Phosphatase 57 Potassium 4.6 Protein Total 6.5 Sodium 139 Ast - Sgot 28 BUN - Urea Nitrogen 21 Glucose 89 70-100 Creatinine For GFR 1.11 Hemoglobin A1c 12/04/2019 [facility] - not interfaced (315)- - Hemoglobin A1c 5.7 CBC without Differential 12/04/2019 [facility] - not inter faced (315)- - White Blood Count 6.4 4.0-10.0 Red Blood Count 3.36 Low 4.00-5.40 Platelets 302 150-450 Hemoglobin 10.1 Hematocrit 31.5 Laboratory test finding 12/04/2019 [facility] - not interf aced (315)- - Magnesium Level 1.6 Low 1.8-2.4 Basic Metabolic Panel 11/26/2019 [facility] (315)- - Glucose 109 High 70-99 Blood Urea Nitrogen 20 7-24 Creatinine 0.88 0.60-1.00 Sodium 141 136-145 Potassium 4.2 3.6-5.2 Chloride 113 High 100-108 Carbon Dioxide 20 Low 22-31 Calcium 8.4 8.4-10.2 GFR (Calculated) >60 >59 CBC without Differential 11/26/2019 [facility] (315)- - White Blood Count 7.0 4.0-11.0 Red Blood Count 3.30 Low 4.00-5.40 Platelets 211 150-450 Hemoglobin 10.0 Low 12.0-16.0 Hematocrit 28.8 Low 36.0-47.0 Poct glucose 10/14/2019 [facility] CCD Impor t Glucose, Poc 120 mg/dL High 70 - 99 1 CMB 10/14/2019 [facility] CCD Impor t CKMB [...] ml/min/1.73m2 Glom Filt Rate, Est See Notes 2 CKMB 10/14/2019 [facility] CCD Impor t CK [...] Troponin I 2.03 ng/mL Critical high <0.05 3 Comprehensive metabolic panel 10/12/2019 N2[facility]Direct CCD Import [...] Bilirubin, Total 0.4 mg/dL 0.0 - 1.0 4 Ast 49 U/L High 11 - 39 Alt 35 U/L 12 - 78 GFR MDRD Non Af Amer 52 Low >59 ml/min/1.73m2 GFR MDRD Af Amer >60 >59 ml/min/1.73m2 Glom Filt Rate, Est See Notes 5 CBC and differential 10/12/2019 N2N/Direct CCD Impo [...] Absolute 0.1 10*3/uL 0.0 - 0.2 1 PERFORMED BY [facility] 2 NORMAL KIDNEY FUNCTION OR MILD DISEASE - GFR >OR= 60 CHRONIC KIDNEY DISEASE - GFR 15 - 59 RENAL FAILURE - GFR <15 Est. GFR calculation based on the MDRD study equation, which assumes a steady state for creatinine. Est. GFR should not be used for medication dosing. 3 Less than 0.05: Myocardial i njury unlikely Greater than or equal to 0.05: Highly suggestive of myocardial injury Correlation with rise and/or fall of serial troponins, clinical symptoms and ECG changes is necessary. ALERTED CRITICAL RESULT TO [place]([id number]) [place] [address] ON 10/12/19 [place] [address] [place] [id number] 4 PLEASE NOTE: Total bilirubin results may be falsely elevated in patients taking Eltrombopag. 5 NORMAL KIDNEY FUNCTION OR MILD DISEASE - GFR >OR= 60 CHRONIC KIDNEY DISEASE - GFR 15 - 59 RENAL FAILURE - GFR <15 Est. GFR calculation based on the MDRD study equation, which assumes a steady state for creatinine. Est. GFR should not be used for medication dosing. Procedures Date Code Description Status 03/01/2020 35215 ECG 12-Lead Completed 10/29/2019 99451 ECG 12-Lead Completed Medical Devices Description No Information Available Encounters Type Date Location Provider Dx Diagnosis Office Visit 03/01/2020 10:45a Main Office Sinai Lagunas PA-C I25.1 0 [place]scl heart disease [place] coronary artery w/o ang pctrs I25.2 Old myocardial infarction Z95.5 Presence of coronary angiopl asty implant and graft I10 Essential (primary) hyperten aurelio I34.0 Nonrheumatic mitral (valve) insufficiency I35.1 Nonrheumatic aortic (valve) insufficiency E78.5 Hyperlipidemia, unspecified 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 I73.9 Peripheral vascular disease, unspecified Office Visit 02/17/2020 10:15a Main Office Reg Rodriguez MD I10 Essential (primary) hypertension I34.0 Nonrheumatic mitral (valve) insufficiency I35.1 Nonrheumatic aortic (valve) insufficiency E78.5 Hyperlipidemia, unspecified Office Visit 12/23/2019 10:31a Main Office Reg Rodriguez MD I10 Essential (primary) hypertension E78.5 Hyperlipidemia, unspecified I50.31 Acute diastolic (congestive) heart failure I25.10 Athscl heart disease of [place] coronary artery [facility] ang [facility] Office Visit 11/28/2019 8:00a Main Office Sinai Lagunas PA-C I10 Essential (primary) hypertension Office Visit 11/21/2019 2:48p Main Office Reg Rodriguez MD I10 Essential (primary) hypertension E78.5 Hyperlipidemia, unspecified I50.31 Acute diastolic (congestive) heart failure I25.10 Athscl heart disease of [place] coronary artery w/o ang pctrs Office Visit 10/29/2019 12:45p Main Office Sinai Lagunas PA-C I25.1 0 Athscl heart disease [place] coronary artery w/o ang [facility] Assessments Date Code Description Provider 03/01/2020 I25.10 Atherosclerotic hear t disease [place] coronary artery without angina pectoris Sinai Lagunas PA-C 03/01/2020 I25.2 Old myocardial infarction JADA DuffyC 03/01/2020 Z95.5 Presence of coronary angioplasty implant and graft JADA DuffyC 03/01/2020 I10 Essential (primary) hypertension JADA DuffyC 03/01/2020 I34.0 Nonrheumatic mitral (valve) insu fficiency JADA DuffyC 03/01/2020 I35.1 Nonrheumatic aortic (valve) insu fficiency JADA DuffyC 03/01/2020 E78.5 Hyperlipidemia, unspecified JADA DuffyC 03/01/2020 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 Sinai Lagunas PA-C 03/01/2020 I73.9 Peripheral vascular disease, uns pecified Sinai Lagunas PA-C 02/17/2020 I10 Essential (primary) hypertension Reg Rodriguez MD 02/17/2020 I34.0 Nonrheumatic mitral (valve) insu fficiency Reg Rodriguez MD 02/17/2020 I35.1 Nonrheumatic aortic (valve) insu fficiency Reg Rodriguez MD 02/17/2020 E78.5 Hyperlipidemia, unspecified Peterson Rodriguez MD 12/23/2019 I10 Essential (primary) hypertension Reg Rodriguez MD 12/23/2019 E78.5 Hyperlipidemia, unspecified Peterson Rodriguez MD 12/23/2019 I50.31 Acute diastolic (congestive) hea rt failure Reg Rodriguez MD 12/23/2019 I25.10 Atherosclerotic hear t disease [place] coronary artery without angina pectoris Reg Rodriguez MD 11/28/2019 I10 Essential (primary) hypertension Sinai Lagunas PA-C 11/21/2019 I10 Essential (primary) hypertension Reg Rodriguez MD 11/21/2019 E78.5 Hyperlipidemia, unspecified Peterson Rodriguez MD 11/21/2019 I50.31 Acute diastolic (congestive) hea rt failure Reg Rodriguez MD 11/21/2019 I25.10 Atherosclerotic hear t disease [place] coronary artery without angina pectoris Reg Rodriguez MD 10/29/2019 I25.10 Atherosclerotic hear t disease of [place] coronary artery without angina pectoris Sinai Lagunas PA-C Plan of Treatment Future Appointment(s):* 08/30/2020 10:15 am - Sinai Lagunas PA-C at Main Office 03/01/2020 - Sinai Lagunas PA-C* I25.10 Atherosclerotic heart disease of [place] coronary artery without angina pectoris* New Labs:* [...]
--- OUTSIDE RECORDS SUMMARY | 2020-05-14 11:34 | CCD | Continuity of Care Document ---
Author Author Dulce MALHOTRA DPGary Organization Unknown Address [address] [place] [address], [address] [place] [address] Phone [phone] Care Team Providers Care Capacity Planner Name Role Phone Kameron Fry DO AUTM [phone] Renan MIGUELMary AUTM [phone] Problems Active Problems Provider Date Osteochondropathy Nikolas [...] 500mg Capsules Unknown Gabapentin 300mg Capsules Charlie Arnett,[place] Novolog 100Unit/ML Solution Charlie Jeffers.,[place] BD Pen Needle/Mini/Ultra-Fine/31G X 5mm 31G X 5 mm Misc Cahrlie Jeffres.,[place] Ranitidine HCL 150mg Tablets Charlie Vega.D.,[place] BD Pen Needle/Mini/Ultra-Fine/31G X 5mm 31G X 5 mm Misc Charlie Jeffers.,[place] Glimepiride 4mg Tablets Charlie Arnett,[place] Trandolapril 1mg Tablets Charlie Arnett,[place] Duloxetine HCL 60mg Caps DR Jaleel Guerra M.D.,[place] Levemir 100Unit/ML Solution Charlie Anrett,[place] Metformin HCL 1000mg Tablets Charlie Arnett,[place] Gabapentin 600mg Tablets Charlie Arnett,[place] Simvastatin 40mg Tablets Charlie Vega.DKannan,[place] Chlorthalidone 25mg Tablets Charlie Vega.DKannan,[place] Spironolactone 50mg Tablets Charlie Arnett,[place] Amoxicillin/Clavulanate Potassium 875-125mg Tablets Unknown Carvedilol 12.5mg Tablets Charlie Vega.DKannan,[place] Victoza 18mg/3ML Solution Pen-Inject Charlie Arnett,[place] Gabapentin 800mg Tablets Charlie GuilloryDKannan,[place] Immunizations Description No Information Available Vital Signs [...] Information Available Procedures Date Code Description Status 01/01/2020 37716 Debridement 6-10 Nails [employer] Completed 10/23/2019 45327 Debridement 6-10 Nails Electric Completed 09/10/2019 89818 Debridement Of Wound 20 SQ CM Co mpleted Medical Devices Description No Information Available Encounters Description No Information Available Assessments Date Code Description Provider 01/01/2020 B35.1 Tinea unguium Nikolas Malhotra DPM 01/01/2020 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
--- OUTSIDE RECORDS SUMMARY | 2020-05-14 11:34 | CCD ---
Author Author [facility] Organization [facility] Address Unknown Phone Unavailable Care Team Providers Care Home School Coordinator Name Role Phone Renan Sloane Unavailable PROBLEMS Type Condition ICD9-CM Code RAF27-NM Code Onset Dates Condition S tatus SNOMED Code Notes Problem Essential hypertension I10 Active 73921037 Problem Anxiety F41.9 Active 88111249 Problem skilled nursing (current) use of insulin Z79.4 Activ e 759270868 Problem Gastroesophageal reflux disease without esophagitis K21.9 Active 575420336 Problem Hypomagnesemia E83.42 Active 620796363 Problem Coronary artery disease invo lving [place] coronary artery of [place] heart without angina pectoris I25.10 Active 242960457981 7 Problem 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 Active 30946955 Problem CKD (chronic kidney disease) stage 3, GFR 30-59 ml/min N18.3 Active 021327293 Problem Skin ulcer of right foot with fat layer exposed L9 7.512 Active 09921492 ALLERGIES No Known Allergies ENCOUNTERS from 1945 to 2020-03-23 Encounter Location Date Provider Diagnosis [facility] [place] [address] Feb Sloane Urrutia IMMUNIZATIONS Vaccine Route Administration Date [...] Education Language: Question Answer Notes Languages spoken: Chinese Sexual Hx: Question Answer Notes Had sex [...] MOUTH TWICE DAILY Oral for 90 Active Nitrostat 0.4 MG as directed Sublingual Active Omeprazole 20 MG 1 capsule 30 minutes before morning meal Orally Once a day for 90 day(s) Jan, Active Brilinta 90 MG 1 tablet Orally Twice a day for 30 day(s) Active Trandolapril 1 MG 0.5 tablet Orally Once a day for 30 day(s) August, Active Ferrous Sulfate 325 (65 Fe) MG 1 tablet Orally Once a day for 30 day( s) Active Metformin HCl 1000 MG 1 tablet in the morning and 1.5 tablets in the evening Orally twice a day Active Isosorbide Mononitrate ER 30 MG 1 tablet in the mornin g Orally Once a day for 30 day(s) Active Duloxetine HCl 60 MG 1 capsule Orally Once a day for 30 day(s) Active Ranexa 500 MG 1 tablet Orally Twice a day for 90 day(s) Not-Taking Clopidogrel Bisulfate 75 MG 1 tablet Orally Once a day for 90 day(s) Not-Taking Carvedilol 25 MG 0.5 tablet with food Orally Twice a day Active Slow Fe 142 (45 Fe) MG 1 tablet Orally Once a day for 90 day(s) Active Aspir-Low 81 MG 1 tablet Orally Once a day Active Hydrocodone-Acetaminophen 5-325 MG (Schedule II Drug) TAKE 1 TABLET BY MOUTH EVERY 6 HOURS NEEDED FOR PAIN . DO NOT EXCEED 4 PER 24 HOURS Oral for 2 Active Pantoprazole Sodium 40 MG 1 tablet Orally twice a day for 90 day(s) Active Meclizine HCl 50 MG 1 tablet as needed Orally every 8 hours Not-Taking Acetaminophen 325 MG 2 tablet as needed Orally every 4 hrs Active Levemir 100 UNIT/ML 15 units Subcutaneous Daily Active Gabapentin 800 MG 1 tablet Orally Once a day for 30 day(s) Active Biofreeze 1 application topically dqaily as needed for pain Not-Taking Hydrocodone-Acetaminophen 10-325 MG 1 tablet as needed Orally every 6 hrs MDD 4 for 5 day(s) Feb, Active Magnesium Chloride 64 MG 1 tablet Orally ONCE a day Active Atorvastatin Calcium 80 MG 1 tablet Orally Once a day for 90 day(s) Active PROCEDURES No Information [...] breast: negative: Gi[facility] 2009 Surgical History Cataract: [facility] 2013 Surgical History colonoscopy: [facility]: adenomatous polyp 2014 Surgical History cardiac cath with stents: [facility] 04/2019 Surgical History Fem/pop bypass Surgical History stent placed 09/2019 Hospitalization History [place] at [facility] 1992 Hospitalization History cardiac 04/2019 Hospitalization History [facility]- right foot ulcer 06/01/19 Hospitalization History anemia 06/30/19 Hospitalization History [facility] for 2 days for pneumonia 08/[address] [facility] for 3 days-stent placed 09/2019 Goals Section No Information Health Concerns No Information MEDICAL EQUIPMENT No Information MENTAL STATUS No Information FUNCTIONAL STATUS No Information ASSESSMENTS No Information PLAN OF TREATMENT Medication Medication Name Sig Start Date Stop Date Gabapentin 800 MG 1 tablet Orally Once a day for 30 day(s) Hydrocodone-Acetaminophen 10-325 MG 1 tablet as needed Orally every 6 hrs MDD 4 for 5 day(s) Feb, Next Appt Details Provider Name:Sloane Urrutia, 2019-04 03:00:00 PM, [place], [address], Provider Name:Sloane Urrutia 2019-04 10:00:00 AM, [place], [address], Insurance Providers Payer Name Payer Address Payer Phone Insured Name Patient Relati onship to Insured Coverage Start Date Coverage End Date [employer] [facility] CLAIM DIV [address] [facility] [place] [id number] MIREILLE RODAS MEDICARE Part A and B [address] [facility] [phone] MRIEILLE RODAS self
--- OUTSIDE RECORDS SUMMARY | 2020-05-14 11:34 | CCD ---
Author Author [facility] Organization [facility] Address Unknown Phone Unavailable Care Team Providers Care Sports Clerk Name Role Phone Francomatt Sloane Unavailable PROBLEMS Type Condition ICD9-CM Code OPD33-SV Code Onset Dates Condition S tatus SNOMED Code Notes Problem Essential hypertension I10 Active 36561573 Problem Anxiety F41.9 Active 74192175 Problem assisted (current) use of insulin Z79.4 Activ e 843046703 Problem Gastroesophageal reflux disease without esophagitis K21.9 Active 373202970 Problem Hypomagnesemia E83.42 Active 681152369 Problem Coronary artery disease invo lving [place] coronary artery of [place] heart without angina pectoris I25.10 Active 879291395166 7 Problem 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 Active 01449604 Problem CKD (chronic kidney disease) stage 3, GFR 30-59 ml/min N18.3 Active 474563608 Problem Skin ulcer of right foot with fat layer exposed L9 7.512 Active 82361336 ALLERGIES No Known Allergies ENCOUNTERS from 1945 to 2020-03-23 Encounter Location Date Provider Diagnosis [facility] [place] [address] Feb Sloane Urrutia Closed fracture of multiple ribs of left side with routine healing, subsequent encounter S22.42XD IMMUNIZATIONS Vaccine Route Administration Date Status Influenza (18 yrs & older) Flublok IM Intramuscular Jan 11 0 Administered SOCIAL HISTORY Tobacco Use: Social History Observation Description Date Details (start date - stop date) Former Smoker Sex Assigned At : Social History Observation Description Sex Assigned At Unknown Audit Question Answer Notes Total Score: 0 Interpretation: Alcohol Education Language: Question Answer Notes Languages spoken: Setswana Sexual Hx: Question Answer Notes Had sex [...] FOR REFERRAL No Information VITAL SIGNS Weight 138 lbs Feb, Height 60 in Feb, BMI 26.95 kg/m2 Feb, Heart Rate 83 /min Feb, Respiratory Rate 18 /min Feb, Temperature 97.0 degrees Fahrenheit Feb, Oximetry 97 Feb, Blood pressure systolic 102 mm Hg Feb, Blood pressure diastolic 54 mm Hg Feb, MEDICATIONS Medication SIG (Take, [...] Information RESULTS No Results REASON FOR VISIT [facility] f/u x 2 visits MEDICAL (GENERAL) HISTORY Type Description Date Medical [...] [facility] 2013 Surgical History colonoscopy: [facility]: adenomatous polyp 2014 Surgical History cardiac cath with stents: [facility] 04/2019 Surgical History Fem/pop bypass Surgical History stent placed 09/2019 Hospitalization History [place] at [facility] 1992 Hospitalization History cardiac 04/2019 Hospitalization History [facility]- right foot ulcer 06/01/19 Hospitalization History anemia 06/30/19 Hospitalization History [facility] for 2 days for pneumonia 08/[address] [facility] for 3 days-stent placed 09/2019 Goals Section No Information Health Concerns No Information MEDICAL EQUIPMENT No Information MENTAL STATUS No Information FUNCTIONAL STATUS No Information ASSESSMENTS Encounter Date Diagnosis Assessment Notes Treatment Notes Treatm ent Clinical Notes Feb, Closed fracture of multiple ribs of left side with routine healing, subsequent encounter (ICD-10 - S22.42XD) Five-day course of hydrocodone provided for pain relief. May take acetaminophen when necessary also encouraged to ambulate routinely at least 3 times per day and deep breathing on the hour. May use pillow for bracing and support as needed for coughing or deep breathing advised to seek emergent treatment contact the office for chest pain, dyspnea on exertion, worsening shortness of breath or cough Patient and daughter verbalized understanding and agreement with stated plan. We will see her back in the office in 4 weeks PLAN OF TREATMENT Medication Medication Name Sig Start Date Stop Date Gabapentin 800 MG 1 tablet Orally Once a day for 30 day(s) Hydrocodone-Acetaminophen 10-325 MG 1 tablet as needed Orally every 6 hrs MDD 4 for 5 day(s) Feb, Treatment Notes Assessment Notes Clinical Notes Closed fracture of multiple ribs of left side with routine healing, subsequent encounter Five-day course of hydrocodo ne provided for pain relief. May take acetaminophen when necessary also encouraged to ambulate routinely at least 3 times per day and deep breathing on the hour. May use pillow for bracing and support as needed for coughing or deep breathing advised to seek emergent treatment contact the office for chest pain, dyspnea on exertion, worsening shortness of breath or cough Patient and daughter verbalized understanding and agreement with stated plan. We will see her back in the office in 4 weeks Next Appt Details 4 Weeks Reason: Provider Name:Sloane Urrutia, 2019-04 10:00:00 AM, [place], [address], Insurance Providers Payer Name Payer Address Payer Phone Insured Name Patient Relati onship to Insured Coverage Start Date Coverage End Date MEDICARE Part A and B [address] [facility] [id number] [phone] MIREILLE RODAS [facility] HE[facility] CARE [facility] CLAIM DIV [address] [facility] [id number] MIREILLE RODAS
--- OUTSIDE RECORDS SUMMARY | 2020-05-14 11:34 | CCD | Continuity of Care Document ---
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 KRISSY Duffy-C Onset: 05/02/2013 Chronic diastolic heart failure Sinai Lagunas PA-C Onset: 05/02/2013 Premature beats Sinai Lagunas PA-C Onset: 05/02/2013 Pure hypercholesterolemia JADA DuffyC Onset: 2013 Type 2 diabetes mellitus Sinai Lagunas PA-C Onset: 014 Acute subendocardial infarction Reg Hernández MD Onset: 05/06/2019 Patient post percutaneous transluminal coronary angiop lasty Reg Hernández MD Onset: 05/06/2019 Essential hypertension Reg Hernández MD Onset: 0 Hyperlipidemia Reg Hernández MD Onset: 05/06/2019 Acute diastolic heart failure Reg Hernádnez MD Onset: Electrocardiogram abnormal Reg Hernández MD [...] 1 by mouth every day Sloane Urrutia [facility] 0 Magnesium 400mg Tablets 1 by mouth twice every day Sloane Urrutia [facility] 0 Metformin HCL 1000mg Tablets 1 by mouth twice a day Sloane Urrutia [facility] 0 Iron 325(65Fe) mg Tablets 1 by mouth every day Sloane Urrutia [facility] 0 Isosorbide Dinitrate 30mg Tablets 1 by [...] Test Result H/L Range Note BMP 02/25/2020 [facility] - not interfaced (315)- - Calcium Ser/Plasma Mass/Vol 9.6 Sodium 135 Carbon Dioxide Ser/Plasm 21 Chloride Serum/Plasma 103 Potassium 4.7 Glucose 124 High 70-100 Blood Urea Nitrogen 21 High 7-18 Creatinine 1.24 0.55-1.30 G F R 45.3 Laboratory test finding 02/25/2020 [facility] - not interf aced (315)- - Magnesium Level 1.6 Low 1.8-2.4 BMP 01/21/2020 [facility] - not interfaced (315)- - Calcium Ser/Plasma Mass/Vol 9.2 Sodium 134 Carbon Dioxide Ser/Plasm 23 Chloride Serum/Plasma 101 Potassium 4.2 Glucose 199 High 70-100 Blood Urea Nitrogen 25 High 7-18 Creatinine 1.24 0.55-1.30 G F R 45.3 Laboratory test finding 01/21/2020 [facility] - not interf aced (315)- - Magnesium Level 1.5 Low 1.8-2.4 BMP 01/12/2020 [facility] - not interfaced (315)- - Calcium Ser/Plasma Mass/Vol 8.6 Sodium 136 Carbon Dioxide Ser/Plasm 27 Chloride Serum/Plasma 104 Potassium 4.4 Glucose 113 High 70-100 Blood Urea Nitrogen 26 High 7-18 Creatinine 1.50 High 0.55-1.30 G F R 36.3 CMP 12/04/2019 [facility] - not interfaced (315)- - Albumin Serum/Plasma 3.5 Alt - SGPT 28 Calcium Ser/Plasma Mass/Vol 9.2 Carbon Dioxide Ser/Plasm 28 Chloride Serum/Plasma 103 Alkaline Phosphatase 57 Potassium 4.6 Protein Total 6.5 Sodium 139 Ast - Sgot 28 BUN - Urea Nitrogen 21 Glucose 89 70-100 Creatinine For GFR 1.11 Hemoglobin A1c 12/04/2019 [facility] - not interfaced (315)- - Hemoglobin A1c 5.7 CBC without Differential 12/04/2019 [facility] - not inter faced (315)- - White Blood Count 6.4 4.0-10.0 Red Blood Count 3.36 Low 4.00-5.40 Platelets 302 150-450 Hemoglobin 10.1 Hematocrit 31.5 Laboratory test finding 12/04/2019 [facility] - not interf aced (315)- - [...] 10*3/uL 0.0 - 0.2 1 PERFORMED BY [facility] ST AFF 2 NORMAL KIDNEY FUNCTION OR MILD DISEASE [...] changes is necessary. ALERTED CRITICAL RESULT TO BRENDEN([id number]) [place] [address] ON 10/12/19 AT 0002 [place] [id number] 4 PLEASE NOTE: Total bilirubin results may [...] dosing. Procedures Date Code Description Status 03/01/2020 81437 ECG 12-Lead Completed 10/29/2019 18233 ECG 12-Lead Completed Medical Devices Description No Information Available Encounters Type Date Location Provider Dx Diagnosis Office Visit 03/01/2020 10:45a Main Office Sinai Lagunas PA-C I25.1 0 Athscl heart disease of [place] coronary artery w/o ang pctrs I25.2 Old myocardial infarction Z95.5 Presence of coronary angiopl asty implant and graft I10 Essential (primary) hyperten aurelio I34.0 Nonrheumatic mitral (valve) insufficiency I35.1 Nonrheumatic aortic (valve) insufficiency E78.5 Hyperlipidemia, unspecified 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 I73.9 Peripheral vascular disease, unspecified Office Visit 12/23/2019 10:31a Main Office Reg Hernández MD I10 Essential (primary) hypertension E78.5 Hyperlipidemia, unspecified I50.31 Acute diastolic (congestive) heart failure I25.10 Athscl heart disease of [place] [facility] Visit 11/28/2019 8:00a Main Office Sinai Lagunas PA-C I10 Essential (primary) hypertension Office Visit 11/21/2019 2:48p Main Office Reg Hernández MD I10 Essential (primary) hypertension E78.5 Hyperlipidemia, unspecified I50.31 Acute diastolic (congestive) heart failure I25.10 Athscl heart disease of [place] coronary artery w/[facility] Office Visit 10/29/2019 12:45p Main Office JADA DuffyC I25.1 0 Athscl heart disease of [place] [facility] Visit 09/12/2019 11:04a Main Office Reg Hernández MD I10 Essential (primary) hypertension I25.10 Athscl heart disease of [place] coronary artery w/[facility] I25.2 Old myocardial infarction E78.5 Hyperlipidemia, unspecified Assessments Date Code Description Provider 03/01/2020 I25.10 Atherosclerotic hear t disease of [place] coronary artery without angina pectoris JADA DuffyC 03/01/2020 I25.2 Old myocardial infarction JADA DuffyC 03/01/2020 Z95.5 Presence of coronary angioplasty implant and graft JADA DuffyC 03/01/2020 I10 Essential (primary) hypertension KRISSY Duffy-C 03/01/2020 I34.0 Nonrheumatic mitral (valve) insu fficiency KRISSY Duffy-C 03/01/2020 I35.1 Nonrheumatic aortic (valve) insu fficiency KRISSY Duffy-C 03/01/2020 E78.5 Hyperlipidemia, unspecified JADA DuffyC 03/01/2020 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 Sinai Lagunas PA-C 03/01/2020 I73.9 Peripheral vascular disease, uns pecified Sinai Lagunas PA-C 12/23/2019 I10 Essential (primary) hypertension Reg Hernández MD 12/23/2019 E78.5 Hyperlipidemia, unspecified Peterson Hernández MD 12/23/2019 I50.31 Acute diastolic (congestive) hea rt failure Reg Hernández MD 12/23/2019 I25.10 Atherosclerotic hear t disease of [place] coronary artery without angina pectoris Reg Hernández MD 11/28/2019 I10 Essential (primary) hypertension Sinai Lagunas PA-C 11/21/2019 I10 Essential (primary) hypertension Reg Hernández MD 11/21/2019 E78.5 Hyperlipidemia, unspecified Peterson Hernández MD 11/21/2019 I50.31 Acute diastolic (congestive) hea rt failure Reg Hernández MD 11/21/2019 I25.10 Atherosclerotic hear t disease of [place] coronary artery without angina pectoris Reg Hernández MD 10/29/2019 I25.10 Atherosclerotic hear t disease of [place] coronary artery without angina pectoris Sinai Lagunas PA-C 09/12/2019 I10 Essential (primary) hypertension Reg Hernández MD 09/12/2019 I25.10 Atherosclerotic hear t disease of [place] coronary artery without angina pectoris Reg Hernández MD 09/12/2019 I25.2 Old myocardial infarction Reg Hernández MD 09/12/2019 E78.5 Hyperlipidemia, unspecified Peterson Hernández MD Plan of Treatment Future Appointment(s):* 08/30/2020 10:15 am - Sinai Lagunas PA-C at Main Office 03/01/2020 - Sinai Lagunas PA-C* I25.10 Atherosclerotic heart disease of [place] coronary artery without angina pectoris* New Labs:* [...] * Follow up:* 6 month follow up. Functional Status Functional Condition Comment Date Status Independent with all ADL's Activ e Mental Status Description No Information Available Referrals Description No Information Available
--- OUTSIDE RECORDS SUMMARY | 2020-05-14 11:35 | CCD ---
Author Author [facility] Organization [facility] Address Unknown Phone Unavailable Care Team Providers Care Dinkey Mechanic Name Role Phone Sloane Urrutia Unavailable PROBLEMS Type Condition ICD9-CM Code QEA34-RU Code Onset Dates Condition S tatus SNOMED Code Notes Problem Essential hypertension I10 Active 47280045 Problem Anxiety F41.9 Active 46322954 Problem snf (current) use of insulin Z79.4 Activ e 047982188 Problem Gastroesophageal reflux disease without esophagitis K21.9 Active 680585853 Problem Hypomagnesemia E83.42 Active 744078685 Problem Coronary artery disease invo [place]ving [place] coronary artery of [place] heart without angina pectoris I25.10 Active 417939891398 7 Problem 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 Active 46110362 Problem CKD (chronic kidney disease) stage 3, GFR 30-59 ml/min N18.3 Active 119734478 Problem Skin ulcer of right foot with fat layer exposed L9 7.512 Active 33914675 ALLERGIES No Known Allergies ENCOUNTERS from 1945 to 2020-02-19 Encounter Location Date Provider Diagnosis [address] [address] [place] [address] Jan Sloane Urrutia IMMUNIZATIONS No Information SOCIAL HISTORY Tobacco Use: Social History Observation Description Date Details (start date - stop date) Former Smoker Sex Assigned At : Social History Observation Description Sex Assigned At Unknown Audit Question Answer Notes Total Score: 0 Interpretation: Alcohol Education Language: Question Answer Notes Languages spoken: Azeri Sexual Hx: Question Answer Notes Had sex [...] Duration) Start Date En d Date Status Atorvastatin Calcium 80 MG 1 tablet Orally Once a day for 90 day(s) Active Nitrostat 0.4 MG as directed Sublingual A ctive Levemir 100 UNIT/ML 25 units Subcutaneous Daily Active Brilinta 90 MG 1 tablet Orally Twice a day for 30 day(s) Active Acetaminophen 325 MG 2 tablet as needed Orally every 4 hrs Active Duloxetine HCl 60 MG 1 capsule Orally Once a day for 30 day(s) Active Trandolapril 1 MG 0.5 tablet Orally Once a day for 30 day(s) August Active Carvedilol 25 MG 0.5 tablet with food Orally Twice a day Active Ferrous Sulfate 325 (65 Fe) MG 1 tablet Orally Once a day for 30 da y(s) Active Isosorbide Mononitrate ER 30 MG 1 tablet in the mornin g Orally Once a day for 30 day(s) Active Clopidogrel Bisulfate 75 MG 1 tablet Orally Once a day for 90 day(s ) Not-Taking Metformin HCl 1000 MG 1 tablet in the morning and 1.5 tablets in the evening Orally twice a day Active Meclizine HCl 50 MG 1 tablet as needed Orally every 8 hours Active Biofreeze 1 application topically dqaily as needed for pain Not-Taking Victoza 18 MG/3ML 1.8 mg Subcutaneous Daily for 90 day(s) Active Slow Fe 142 (45 Fe) MG 1 tablet Orally Once a day for 90 day(s) Not-Taking Ranexa 500 MG 1 tablet Orally Twice a day for 90 day(s) Active Magnesium Chloride 64 MG 1 tablet Orally ONCE a day Active Omeprazole 20 MG 1 capsule 30 minutes before morning meal Orally Once a day for 90 day(s) Jan, Active Gabapentin 800 MG 1 tablet Orally Once a day for 30 day(s) Active Aspir-Low 81 MG 1 tablet Orally Once a day Active PROCEDURES No Information RESULTS No Results REASON FOR VISIT refill MEDICAL (GENERAL) HISTORY Type Description Date Medical History Diabetes with CKD and Neuropathy Medical History HTN Medical History CAD with stenting Medical History Hyperlipidemia Medical History Anxiety Medical History GERD Medical History Podiatry: Nikolas Wilde Medical History Vascular: Dr. Didi Guzman Surgical History BTL 1976 Surgical History LSO 1980 Surgical History stent placed on Right leg 2007 Surgical History Breast biopsy in each breast: negative: [facility] 2009 Surgical History Cataract: [facility] 2013 Surgical History colonoscopy: [facility]: adenomatous polyp 2014 Surgical History cardiac cath with stents: [facility] 04/2019 Surgical History Fem/pop bypass Surgical History stent placed 09/2019 Hospitalization History [place] at [facility] 1992 Hospitalization History cardiac 04/2019 [...] Medication Name Sig Start Date Stop Date Ranexa 500 MG 1 tablet Orally Twice a day for 90 day(s) Omeprazole 20 MG 1 capsule 30 minutes before morning meal Orally Once a day for 90 day(s) Jan, Next Appt Details Provider Name:Sloane Urrutia, 2019-04 02:00:00 PM, [place], [address], Insurance Providers Payer Name Payer Address Payer Phone Insured Name Patient Relati onship to Insured Coverage Start Date Coverage End Date MEDICARE Part A and B [address] [facility] [address] [phone] MIREILLE RODAS [facility] CLAIM DIV [address] [facility] [id number] MIREILLE RODAS
--- OUTSIDE RECORDS SUMMARY | 2020-05-14 11:35 | CCD | Continuity of Care Document ---
Author Author Dulce RODRIGUEZ MD Organization Unknown Address [address] [place] [address], [place] [address] Phone [phone] Care Team Providers Care Cremator Name Role Phone Reg Rodriguez MD AUTM [phone] Sloane Urrutia BRAKE OPERATOR AUTM [phone] Didi Guzman MD AUTM [phone] Nikolas Wilde DPM AUTM [phone] Raymond Brennan MD AUTM [phone] Problems Active Problems Provider Date Coronary arteriosclerosis [...] management surveillance Reg Rodriguez MD Onset: 05/06/2019 Social History Type Date Description Comments Sex Unknown ETOH Use Does not consume alcohol Tobacco Use Start: Unknown End: Unknown Patient is a former smoker up to 2ppd from age 19, quit 1992 Smoking Status Reviewed: 11/28/19 Patient is a former smoker up to 2ppd from age 19, quit 1992 Exercise Type/Frequency Walks daily Exercise Type/Frequency Does housework daily Exercise Limitations None Allergies, Adverse Reactions, Alerts Description No Known Drug Allergies Medications Active Medications SIG Qnty Indications Ordering Provide r Date Magnesium 400mg Tablets 1 by mouth every day Unknown 11/27/2019 Isosorbide Dinitrate 30mg Tablets 1 by mouth once daily Unknown 11/27/2019 Brilinta 90mg Tablets 1 by mouth twice a day 180tabs I25.10 Seth Gibbs MD 10/29/2019 Trandolapril 1mg Tablets 1/2 by mouth every night at bedtime I25.10 Seth Gibbs MD 2019 Nitroglycerin 0.4mg Tablets Sub 1 tab sl every 5 min times 3 doses as needed chest disc 25tabs J lang Gibbs MD 10/29/2019 Ranexa 500mg Tablets ER 12HR 1 po bid Raymond Brennan MD 10/28/2019 Metformin HCL 1000mg Tablets 1/2 by mouth in the Am, 1 tab po in the PM Unknown Gabapentin 800mg Tablets 1 by mouth once [...] 1 by mouth every day Cristal Guerra, Levemir 100Unit/ML Solution 20 units every am and 40 units every pm Cristal Guerra DO Immunizations Description No Information Available Vital Signs Date Vital Result Comment 11/28/2019 8:02am Weight 127.00 lb Height 64 inches 5'4" BMI (Body Mass Index) 21.8 kg/m2 Heart Rate 84 /min Regular Respiratory Rate 16 /min BP Systolic Sitting 122 mmHg Ra, regular cuff BP Diastolic Sitting 64 mmHg Ra, regular cuff BP Systolic Standing 120 mmHg sitting BP Diastolic Standing 64 mmHg sitting 10/29/2019 12:44pm Weight 128.00 lb Height 64 inches 5'4" BMI (Body Mass Index) 22.0 kg/m2 Heart Rate 88 /min Regular Respiratory Rate 16 /min BP Systolic Right Arm 116 mmHg sitting, regular c uff BP Diastolic Right Arm 64 mmHg sitting, regular cuff BP Systolic Left Arm 122 mmHg sitting BP Diastolic Left Arm 64 mmHg sitting Results Test Acquired Date Facility Test Result H/L Range Note CBC without Differential 11/26/2019 Patient's Choic e [...] 10*3/uL 0.0 - 0.2 1 PERFORMED BY [facility] 2 NORMAL KIDNEY FUNCTION OR MILD [...] changes is necessary. ALERTED CRITICAL [place]END[place](80069) [place] [address] ON 10/12/19 [place] 1631 [place] [address] 4 PLEASE NOTE: Total bilirubin results may [...] medication dosing. Procedures Date Code Description Status 10/29/2019 62187 ECG 12-Lead Completed Medical Devices Description No Information Available Encounters Type Date Location Provider Dx Diagnosis Office Visit 12/23/2019 10:31a Main Office Reg Rodriguez MD I10 Essential (primary) hypertension E78.5 Hyperlipidemia, unspecified I50.31 Acute diastolic (congestive) heart failure I25.10 Athscl heart disease of [place] coronary artery w[facility]o [facility] Office Visit 11/28/2019 8:00a Main Office Sinai Lagunas PA-C I10 Essential (primary) hypertension Office Visit 11/21/2019 2:48p Main Office Reg Rodriguez MD I10 Essential (primary) hypertension E78.5 Hyperlipidemia, unspecified I50.31 Acute diastolic (congestive) heart failure I25.10 Athscl heart disease of [place] coronary artery w/o ang pctrs Office Visit 10/29/2019 12:45p Main Office Sinai Lagunas PA-C I25.1 0 Athscl heart disease of [place] [facility] 09/12/2019 11:04a Main Office Reg Rodriguez MD I10 Essential (primary) hypertension I25.10 Athscl heart disease of [place] coronary artery w/o ang pctrs I25.2 Old myocardial infarction E78.5 Hyperlipidemia, unspecified Assessments Date Code Description Provider 12/23/2019 I10 Essential (primary) hypertension Reg Rodriguez MD 12/23/2019 E78.5 Hyperlipidemia, unspecified Peterson Rodriguez MD 12/23/2019 I50.31 Acute diastolic (congestive) hea rt failure Reg Rodriguez MD 12/23/2019 I25.10 Atherosclerotic hear t disease of [place] coronary artery without angina pectoris Reg Rodriguez MD 11/28/2019 I10 Essential (primary) hypertension Sinai Lagunas PA-C 11/21/2019 I10 Essential (primary) hypertension Reg Rodriguez MD 11/21/2019 E78.5 Hyperlipidemia, unspecified Peterson Rodriguez MD 11/21/2019 I50.31 Acute diastolic (congestive) hea rt failure Reg Rodriguez MD 11/21/2019 I25.10 Atherosclerotic hear t disease of [place] coronary artery without angina pectoris Reg Rodriguez MD 10/29/2019 I25.10 Atherosclerotic hear t disease of [place] coronary artery without angina pectoris Sinai Lagunas PA-C 09/12/2019 I10 Essential (primary) hypertension Reg Rodriguez MD 09/12/2019 I25.10 Atherosclerotic hear t disease of [place] coronary artery without angina pectoris Reg Rodriguez MD 09/12/2019 I25.2 Old myocardial infarction Reg Rodriguez MD 09/12/2019 E78.5 Hyperlipidemia, unspecified Peterson Rodriguez MD Plan of Treatment Future Appointment(s):* 03/01/2020 10:45 am - Sinai Lagunas PA-C at Main Office 11/28/2019 - Sinai Lagunas PA-C* I10 Essential (primary) hypertension * All * Follow up:* 3 month follow up. Functional Status Functional Condition Comment Date Status Independent with all ADL's Activ e Mental Status Description No Information Available Referrals Description No Information Available
[2020-05-14 11:46] LABS: INR 0.98; PARTIAL THROMBOPLASTIN TIME 26.9 SECONDS (24.2-38.5); PROTHROMBIN TIME 13.2 SECONDS (12.5-14.3)
[2020-05-14 12:01] LABS: ERYTHROCYTE SEDIMENTATION RATE 35 mm/hr (0-30)
[2020-05-14 12:14] LABS: ALBUMIN 3.4 GM/DL (3.2-5.2); BILIRUBIN,DIRECT 0.2 MG/DL (0.0-0.2); BILIRUBIN,TOTAL 0.7 MG/DL (0.2-1.0); C REACTIVE PROTEIN QUANTITATIV 0.47 MG/DL (0.00-0.30); CALCIUM LEVEL 8.8 MG/DL (8.8-10.2); CK-MB VALUE MASS 4.6 NG/ML (<3.6); CREATININE FOR GFR 1.24 MG/DL (0.55-1.30); FREE T4 0.91 NG/DL (0.76-1.46); GLOMERULAR FILTRATION RATE 45.3 (>39); MB/CK RELATIVE INDEX 3.9 (< OR =4); THYROID STIMULATING HORMONE 1.61 uIU/ML (0.358-3.740); TOTAL PROTEIN 6.5 GM/DL (6.4-8.2); TROPONIN I 0.23 NG/ML (< 0.10)
[2020-05-14] MEDS ORDERED: FUROSEMIDE 40MG/4ML VIAL (J1940) IV ONE (13:30)
[2020-05-14 14:27] LABS: CK-MB VALUE MASS 4.5 NG/ML (<3.6); MB/CK RELATIVE INDEX 4.05 (< OR =4); TROPONIN I 0.23 NG/ML (< 0.10)
[2020-05-14] MEDS ORDERED: HEPARIN DRIP 25,000 UNITS in IV 1 EA IV SCH (15:43)
[2020-05-14] MEDS ORDERED: HEPARIN SOD (PORCINE) 5000UNITS/ML 1ML VIAL/SYRINGE IV ONE (15:45)
[2020-05-14 17:12] VITALS: BP 170/127
[2020-05-14] MEDS ORDERED: CARVedilol 12.5 MG TAB PO ONE (17:15)
--- NOTE | 2020-05-14 21:05 | ECGEPIP ---
[facility] - ED Test Date: 2020-05-14 Pat Name: MIREILLE RODAS Department: Room: - Gender: Female Prize Coordinator: SERGIO : 1945 Requested By: PA Chambers Order Number: [id number] Reading MD: Anupama Betancourt Measurements Intervals [place] Rate: 92 P: 60 MI: 157 QRS: 16 QRSD: 120 T: 39 QT: 398 QTc: 492 Interpretive Statements SINUS RHYTHM WITH OCCASIONAL VENTRICULAR PREMATURE COMPLEXES POSSIBLE LEFT ATRIAL ENLARGEMENT MODERATE INTRAVENTRICULAR CONDUCTION DELAY NONSPECIFIC T-WAVE ABNORMALITY delayed r progression increased ectopy 11/04/19 Electronically Signed on 05-14-2020 21:05:28 EST by Anupama Betancourt
--- OUTSIDE RECORDS SUMMARY | 2020-05-18 19:59 | CCD ---
Author Author [facility] Organization [facility] Address Unknown Phone Unavailable Care Team Providers Care Signal Operator Name Role Phone Mireille Grady Unavailable Unavailable Mireille Grady Unavailable Unavailable Mireille Grady Unavailable Unavailable Mireille Grady Unavailable Unavailable Mireille Grady Unavailable Unavailable Mireille Grady Unavailable Unavailable Mireille Grady Unavailable Unavailable Symenow, Mireille Sinai PA Unavailable Unavailable Symenow, Mireille Sinai PA Unavailable Unavailable Symenow, Mireille Sinai PA Unavailable Unavailable Symenow, Mireille Sinai PA Unavailable Unavailable Symenow, Mireille Sinai PA Unavailable Unavailable Symenow, Mireille Sinai PA Unavailable Unavailable Symenow, Mireille Sinai PA Unavailable Unavailable Symenow, Mireille Sinai PA Unavailable Unavailable Symenow, Mireille Sinai PA Unavailable Unavailable Symenow, Mireille Sinai PA Unavailable Unavailable Symenow, Mireille Sinai PA Unavailable Unavailable Symenow, Mireille Sinai PA Unavailable Unavailable Symenow, Mireille Sinai PA Unavailable Unavailable Symenow, Mireille Sinai PA Unavailable Unavailable Symenow, Mireille Sinai PA Unavailable Unavailable Symenow, Mireille Sinai PA Unavailable Unavailable Symenow, Mireille Sinai PA Unavailable Unavailable Symenow, Mireille Sinai PA Unavailable Unavailable Symenow, Mireille Sinai PA Unavailable Unavailable Symenow, Mireille Sinai PA Unavailable Unavailable Symenow, Mireille Sinai PA Unavailable Unavailable Symenow, Mireille Sinai PA Unavailable Unavailable Symenow, Mireille Sinai PA Unavailable Unavailable Symenow, Mireille Sinai PA Unavailable Unavailable Symenow, Mireille Sinai PA Unavailable Unavailable Symenow, Mireille Sinai PA Unavailable Unavailable Symenow, Mireille Sinai PA Unavailable Unavailable Symenow, Mireille Sinai PA Unavailable Unavailable Symenow, Mireille Sinai PA Unavailable Unavailable Sherrill Martini MD Unavailable Unavailable Sherrill Martini MD Unavailable Unavailable Sherrill Martini MD Unavailable Unavailable Sherrill Martini MD Unavailable Unavailable Sherrill Martini MD Unavailable Unavailable Sherrill Martini MD Unavailable Unavailable Sherrill Martini MD Unavailable Unavailable Sherrill Martini MD Unavailable Unavailable Sherrill Martini MD Unavailable Unavailable Sherrill Martini MD Unavailable Unavailable Sherrill Martini MD Unavailable Unavailable Sherrill Martini MD Unavailable Unavailable Sherrill Martini MD Unavailable Unavailable Sherrill Martini MD Unavailable Unavailable Sherrill Martini MD Unavailable Unavailable Sherrill Martini MD Unavailable Unavailable Sherrill Martini MD Unavailable Unavailable Walker, P Juventino Unavailable Unavailable Walker, P Juventino Unavailable Unavailable Walker, P Juventino Unavailable Unavailable Walker, P Juventino Unavailable Unavailable Walker, P Juventino Unavailable Unavailable Walker, P Juventino Unavailable Unavailable Dombek-Lang V Pat MD Unavailable Unavailable Dombek-Lang, V Pat MD Unavailable Unavailable Dombek-Lang V Pat MD Unavailable Unavailable Dombek-Lang V Pat MD Unavailable Unavailable Dombek-LangMichelleesjuana BRANCH Unavailable Unavailable Dombek-Lang V Pat MD Unavailable Unavailable Dombek-Lang V Pat MD Unavailable Unavailable Dombek-LangMichelleesjuana BRANCH Unavailable Unavailable Dombek-Lang V Pat MD Unavailable Unavailable Dombek-LangMichelleesjuana BRANCH Unavailable Unavailable Dombek-Michelle Mortonesjuana BRANCH Unavailable Unavailable Dombek-Michelle Mortonesjuana BRANCH Unavailable Unavailable Chuckiebek-Michelle Morton MD Unavailable Unavailable Dombek-Michelle Mortonesjuana BRANCH Unavailable Unavailable Dombek-Michelle Mortonesjuana BRANCH Unavailable Unavailable Dombek-Michelle Mortonesjuana BRANCH Unavailable Unavailable Dombek-Michelle Mortonesjuana BRANCH Unavailable Unavailable Dombek-Michelle Mortonesjuana BRANCH Unavailable Unavailable Dombek-Michelle Mortonesjuana BRANCH Unavailable Unavailable Dombek-Lang V Pat MD Unavailable Unavailable Dombek-Lang V Pat MD Unavailable Unavailable Dombek-Lang V Pat MD Unavailable Unavailable Dombek-Michelle Mortonesjuana BRANCH Unavailable Unavailable Dombek-Lang V Pat MD Unavailable Unavailable Dombek-LangMichelleesjuana BRANCH Unavailable Unavailable Dombek-Lang V Pat MD Unavailable Unavailable Dombek-Lang, V Pat MD Unavailable Unavailable Dombek-LangMichelleesjuana BRANCH Unavailable Unavailable Dombek-Lang V Pat MD Unavailable Unavailable Dombek-Lang, V Pat MD Unavailable Unavailable Michelle Marcelino MD Unavailable Unavailable Michelle Marcelino MD Unavailable Unavailable Michelle Marcelino MD Unavailable Unavailable Michelle Marcelino MD Unavailable Unavailable Michelle Marcelino MD Unavailable Unavailable Michelle Marcelino MD Unavailable Unavailable Alberry, D Sloane BRANCH SALES MANAGER Unavailable Unavailable Alberry, D Sloane BRANCH SALES MANAGER Unavailable Unavailable Alberry, D Sloane BRANCH SALES MANAGER Unavailable Unavailable Alberry, D Sloane BRANCH SALES MANAGER Unavailable Unavailable Alberry, D Sloane BRANCH SALES MANAGER Unavailable Unavailable Alberry, D Sloane BRANCH SALES MANAGER Unavailable Unavailable Alberry, D Sloane BRANCH SALES MANAGER Unavailable Unavailable Alberry, D Sloane BRANCH SALES MANAGER Unavailable Unavailable Alberry, D Sloane BRANCH SALES MANAGER Unavailable Unavailable Alberry, D Sloane BRANCH SALES MANAGER Unavailable Unavailable Alberry, D Sloane BRANCH SALES MANAGER Unavailable Unavailable Alberry, D Sloane BRANCH SALES MANAGER Unavailable Unavailable Alberry, D Sloane BRANCH SALES MANAGER Unavailable Unavailable Alberry, D Sloane BRANCH SALES MANAGER Unavailable Unavailable Alberry, D Sloane BRANCH SALES MANAGER Unavailable Unavailable Alberry, D Sloane BRANCH SALES MANAGER Unavailable Unavailable Alberry, D Sloane BRANCH SALES MANAGER Unavailable Unavailable Alberry, D Sloane BRANCH SALES MANAGER Unavailable Unavailable Alberry, D Sloane BRANCH SALES MANAGER Unavailable Unavailable Alberry, D Sloane BRANCH SALES MANAGER Unavailable Unavailable Alberry, D Sloane BRANCH SALES MANAGER Unavailable Unavailable Alberry, D Sloane BRANCH SALES MANAGER Unavailable Unavailable Alberry, D Sloane BRANCH SALES MANAGER Unavailable Unavailable Alberry, D Sloane BRANCH SALES MANAGER Unavailable Unavailable Alberry, D Sloane BRANCH SALES MANAGER Unavailable Unavailable Alberry, D Sloane BRANCH SALES MANAGER Unavailable Unavailable Alberry, D Sloane BRANCH SALES MANAGER Unavailable Unavailable Alberry, D Sloane BRANCH SALES MANAGER Unavailable Unavailable Alberry, D Sloane BRANCH SALES MANAGER Unavailable Unavailable Alberry, D Sloane BRANCH SALES MANAGER Unavailable Unavailable Alberry, D Sloane BRANCH SALES MANAGER Unavailable Unavailable Alberry, D Sloane BRANCH SALES MANAGER Unavailable Unavailable Alberry, D Sloane BRANCH SALES MANAGER Unavailable Unavailable Alberry, D Sloane BRANCH SALES MANAGER Unavailable Unavailable Alberry, D Sloane BRANCH SALES MANAGER Unavailable Unavailable Alberry, D Sloane BRANCH SALES MANAGER Unavailable Unavailable Alberry, D Sloane BRANCH SALES MANAGER Unavailable Unavailable Alberry, D Sloane BRANCH SALES MANAGER Unavailable Unavailable Alberry, D Sloane BRANCH SALES MANAGER Unavailable Unavailable Alberry, D Sloane BRANCH SALES MANAGER Unavailable Unavailable Alberry, D Sloane BRANCH SALES MANAGER Unavailable Unavailable Alberry, D Sloane BRANCH SALES MANAGER Unavailable Unavailable Alberry, D Sloane BRANCH SALES MANAGER Unavailable Unavailable Alberry, D Sloane BRANCH SALES MANAGER Unavailable Unavailable Alberry, D Sloane BRANCH SALES MANAGER Unavailable Unavailable Alberry, D Sloane BRANCH SALES MANAGER Unavailable Unavailable Alberry, D Sloane BRANCH SALES MANAGER Unavailable Unavailable Dombek-Praveen, Michelle Stewart MD Unavailable Unavailable Dombek-Lang, Michelle Stewart MD Unavailable Unavailable Dombek-Lang, Michelle Stewart MD Unavailable Unavailable Dombek-Lang, Michelle Stewart MD Unavailable Unavailable Dombek-Lang, Michelle Stewart MD Unavailable Unavailable Dombek-Lang, Michelle Stewart MD Unavailable Unavailable Dombek-Lang, Michelle Stewart MD Unavailable Unavailable Dombek-Lang, Michelle Stewart MD Unavailable Unavailable Dombek-Lang, Michelle Stewart MD Unavailable Unavailable Dombek-Lang, Michelle Stewart MD Unavailable Unavailable Dombek-Lang, Michelle Stewart MD Unavailable Unavailable Dombek-Lang, Michelle Stewart MD Unavailable Unavailable Dombek-Lang, Michelle Stewart MD Unavailable Unavailable Dombek-LangMichelle MD Unavailable Unavailable Dombek-Lang, Michelle Stewart MD Unavailable Unavailable Dombek-Michelle Morton MD Unavailable Unavailable Chuckiebek-Michelle Morton MD Unavailable Unavailable Dombek-Michelle Morton MD Unavailable Unavailable Chuckiebek-Michelle Morton MD Unavailable Unavailable Dombek-Mcihelle Morton MD Unavailable Unavailable Chuckiebek-Michelle Morton MD Unavailable Unavailable ChuckiebekMichelle Flowers MD Unavailable Unavailable Dombek-Michelle Morton MD Unavailable Unavailable Dombek-Michelle Morton MD Unavailable Unavailable Dombek-LangMichelle MD Unavailable Unavailable Dombek-LangMichelle MD Unavailable Unavailable Dombek-Michelle Morton MD Unavailable Unavailable Dombek-Michelle Morton MD Unavailable Unavailable Dombek-Michelle Morton MD Unavailable Unavailable Dombek-LangMichelle MD Unavailable Unavailable Dombek-LangMichelle MD Unavailable Unavailable Dombek-LangMichelle MD Unavailable Unavailable Dombek-LangMichelle MD Unavailable Unavailable Dombek-LangMichelle MD Unavailable Unavailable Dombek-Lang, V Pat MD Unavailable Unavailable Michelle Marcelino MD Unavailable Unavailable IMANI, CARA LUIS CARLOS PA Unavailable Unavailable IMANI, CARA LUIS CARLOS PA Unavailable Unavailable IMANI, CARA LUIS CARLOS PA Unavailable Unavailable IMANI, CARA LUIS CARLOS PA Unavailable Unavailable IMANI, CARA LUIS CARLOS PA Unavailable Unavailable IMANI, CARA LUIS CARLOS PA Unavailable Unavailable IMANI, CARA LUIS CARLOS PA Unavailable Unavailable IMANI, CARA LUIS CARLOS PA Unavailable Unavailable IMANI, CARA LUIS CARLOS PA Unavailable Unavailable IMANI, CARA LUIS CARLOS PA Unavailable Unavailable IMANI, CARA LUIS CARLOS PA Unavailable Unavailable IMANI, CARA LUIS CARLOS PA Unavailable Unavailable IMANI, CARA LUIS CARLOS PA Unavailable Unavailable IMANI, CARA LUIS CARLOS PA Unavailable Unavailable IMANI, CARA LUIS CARLOS PA Unavailable Unavailable IMANI, CARA LUIS CARLOS PA Unavailable Unavailable IMANI, CARA LUIS CARLOS PA Unavailable Unavailable IMANI, CARA LUIS CARLOS PA Unavailable Unavailable IMANI, CARA LUIS CARLOS PA Unavailable Unavailable IMANI, CARA LUIS CARLOS PA Unavailable Unavailable IMANI, CARA LUIS CARLOS PA Unavailable Unavailable Munroe, I Michelle Unavailable Munroe, I Michelle Unavailable Munroe, I Michelle Unavailable Ericka VIZCARRA MD Unavailable Unavailable Baljit Sinclair MD (Jack) Unavailable Unavailable Baljit Sinclair MD (Jack) Unavailable Unavailable Baljit Sinclair MD (Jack) Unavailable Unavailable Baljit Sinclair MD (Jack) Unavailable Unavailable Baljit Sinclair MD (Jack) Unavailable Unavailable Baljit Sinclair MD (Jack) Unavailable Unavailable Baljit Sinclair MD (Jack) Unavailable Unavailable Baljit Sinclair MD (Jack) Unavailable Unavailable Baljit Sinclair MD (Jack) Unavailable Unavailable Baljit Sinclair MD (Jack) Unavailable Unavailable Baljit Sinclair MD (Jack) Unavailable Unavailable Baljit Sinclair MD (Jack) Unavailable Unavailable Baljit Sinclair MD (Jack) Unavailable Unavailable Baljit Sinclair MD (Jack) Unavailable Unavailable Baljit Sinclair MD (Jack) Unavailable Unavailable Tin, Baljit Nii (Yovani) MD Unavailable Unavailable Tin, Baljit Nii (Yovani) MD Unavailable Unavailable Tin, Baljit Nii (Yovani) MD Unavailable Unavailable Tin, Baljit Nii (Yovani) MD Unavailable Unavailable Tin, Baljit Nii (Yovani) MD Unavailable Unavailable Tin, Baljit Nii (Yovani) MD Unavailable Unavailable Tin, Baljit Nii (Yovani) MD Unavailable Unavailable Tin, Baljit Nii (Yovani) MD Unavailable Unavailable Tin, Baljit Nii (Yovani) MD Unavailable Unavailable Tin, Baljit Nii (Yovani) MD Unavailable Unavailable Tin, Baljit Nii (Yovani) MD Unavailable Unavailable Tin, Baljit Nii (Yovani) MD Unavailable Unavailable Tin, Baljit Nii (Yovani) MD Unavailable Unavailable Tin, Baljit Nii (Yovani) MD Unavailable Unavailable Tin, Baljit Nii (Yovani) MD Unavailable Unavailable Tin, Baljit Nii (Yovani) MD Unavailable Unavailable Tin, Baljit Nii (Yovani) MD Unavailable Unavailable Tin, Baljit Nii (Yovani) MD Unavailable Unavailable Tin, Baljit Nii (Yovani) MD Unavailable Unavailable Tin, Baljit Nii (Yovani) MD Unavailable Unavailable Tin, Baljit Nii (Yovani) MD Unavailable Unavailable Tin, Baljit Nii (Yovani) MD Unavailable Unavailable Tin, Baljit Nii (Yovani) MD Unavailable Unavailable Tin, Baljit Nii (Yovani) MD Unavailable Unavailable Tin, Baljit Nii (Yovani) MD Unavailable Unavailable Tin, Baljit Nii (Yovani) MD Unavailable Unavailable Tin, Baljit Nii (Yovani) MD Unavailable Unavailable Tin, Baljit Nii (Yovani) MD Unavailable Unavailable Tin, Baljit Nii (Yovani) MD Unavailable Unavailable Tin, Baljit Nii (Yovani) MD Unavailable Unavailable Tin, Baljit Nii (Yovani) MD Unavailable Unavailable Tin, Baljit Nii (Yovani) MD Unavailable Unavailable Tin, Baljit Nii (Yovani) MD Unavailable Unavailable Tin, Baljit Nii (Yovani) MD Unavailable Unavailable Tin, Baljit Nii (Yovani) MD Unavailable Unavailable Tin, Baljit Nii (Yovani) MD Unavailable Unavailable Tin, Baljit Nii (Yovani) MD Unavailable Unavailable Tin, Baljit Nii (Yovani) MD Unavailable Unavailable Tin, Baljit Nii (Yovani) MD Unavailable Unavailable UNIQUE III, J RONNY Unavailable Unavailable UNIQUE III, J RONNY Unavailable Unavailable UNIQUE III, J RONNY Unavailable Unavailable UNIQUE III, J RONNY Unavailable Unavailable UNIQUE III, J RONNY Unavailable Unavailable UNIQUE III, J RONNY Unavailable Unavailable KASSIDY, A EBER DO Unavailable Unavailable KASSIDY, A EBER DO Unavailable Unavailable KASSIDY, A EBER DO Unavailable Unavailable KASSIDY, A EBER DO Unavailable Unavailable KASSIDY, A EBER DO Unavailable Unavailable KASSIDY, A EBER DO Unavailable Unavailable KASSIDY, A EBER DO Unavailable Unavailable KASSIDY, A EBER DO Unavailable Unavailable KASSIDY, A EBER DO Unavailable Unavailable KASSIDY, A EBER DO Unavailable Unavailable KASSIDY, A EBER DO Unavailable Unavailable KASSIDY, A EBER DO Unavailable Unavailable KASSIDY, A EBER DO Unavailable Unavailable KASSIDY, A EBER DO Unavailable Unavailable KASSIDY, A EBER DO Unavailable Unavailable KASSIDY, A EBER DO Unavailable Unavailable KASSIDY, A EBER DO Unavailable Unavailable KASSIDY, A EBER DO Unavailable Unavailable KASSIDY, A EBER DO Unavailable Unavailable KASSIDY, A EBER DO Unavailable Unavailable KASSIDY, A EBER DO Unavailable Unavailable KASSIDY, A EBER DO Unavailable Unavailable KASSIDY, A EBER DO Unavailable Unavailable KASSIDY, A EBER DO Unavailable Unavailable KASSIDY, A EBER DO Unavailable Unavailable KASSIDY, A EBER DO Unavailable Unavailable KASSIDY, A EBER DO Unavailable Unavailable KASSIDY, A EBER DO Unavailable Unavailable KASSIDY, A EBER DO Unavailable Unavailable KASSIDY, A EBER DO Unavailable Unavailable KASSIDY, A EBER DO Unavailable Unavailable KASSIDY, A EBER DO Unavailable Unavailable KASSIDY, A EBER DO Unavailable Unavailable KASSIDY, A EBER DO Unavailable Unavailable KASSIDY, A EBER DO Unavailable Unavailable KASSIDY, A EBER DO Unavailable Unavailable KASSIDY, A EBER DO Unavailable Unavailable KASSIDY, A EBER DO Unavailable Unavailable KASSIDY, A EBER DO Unavailable Unavailable KASSIDY, A EBER DO Unavailable Unavailable KASSIDY, A EBER DO Unavailable Unavailable KASSIDY, A EBER DO Unavailable Unavailable KASSIDY, A EBER DO Unavailable Unavailable KASSIDY, A EBER DO Unavailable Unavailable KASSIDY, A EBER DO Unavailable Unavailable KASSIDY, A EBER DO Unavailable Unavailable KASSIDY, A EBER DO Unavailable Unavailable KASSIDY, A EBER DO Unavailable Unavailable KASSIDY, A EBER DO Unavailable Unavailable KASSIDY, A EBER DO Unavailable Unavailable KASSIDY, A EBER DO Unavailable Unavailable KASSIDY, A EBER DO Unavailable Unavailable KASSIDY, A EBER DO Unavailable Unavailable KASSIDY, A EBER DO Unavailable Unavailable KASSIDY, A EBER DO Unavailable Unavailable KASSIDY, A EBER DO Unavailable Unavailable KASSIDY, A EBER DO Unavailable Unavailable KASSIDY, A EBER DO Unavailable Unavailable KASSIDY, A EBER DO Unavailable Unavailable KASSIDY, A EBER DO Unavailable Unavailable KASSIDY, A EBER DO Unavailable Unavailable KASSIDY, A EBER DO Unavailable Unavailable KASSIDY, A EBER DO Unavailable Unavailable IMANI, CARA LUIS CARLOS PA Unavailable Unavailable IMANI, CARA LUIS CARLOS PA Unavailable Unavailable IMANI, CARA LUIS CARLOS PA Unavailable Unavailable IMANI, CARA LUIS CARLOS PA Unavailable Unavailable IMANI, CARA LUIS CARLOS PA Unavailable Unavailable IMANI, CARA LUIS CARLOS PA Unavailable Unavailable IMANI, CARA LUIS CARLOS PA Unavailable Unavailable IMANI, CARA LUIS CARLOS PA Unavailable Unavailable IMANI, CARA LUIS CARLOS PA Unavailable Unavailable IMANI, CARA LUIS CARLOS PA Unavailable Unavailable IMANI, CARA LUIS CARLOS PA Unavailable Unavailable IMANI, CARA LUIS CARLOS PA Unavailable Unavailable IMANI, CARA LUIS CARLOS PA Unavailable Unavailable IMANI, CARA LUIS CARLOS PA Unavailable Unavailable IMANI, CARA LUIS CARLOS PA Unavailable Unavailable IMANI, CARA LUIS CARLOS PA Unavailable Unavailable IMANI, CARA LUIS CARLOS PA Unavailable Unavailable IMANI, CARA LUIS CARLOS PA Unavailable Unavailable IMANI, CARA LUIS CARLOS PA Unavailable Unavailable IMANI, CARA LUIS CARLOS PA Unavailable Unavailable IMANI, CARA LUIS CARLOS PA Unavailable Unavailable Balog, Anupama Unavailable Unavailable Balog, Anupama Unavailable Unavailable Balog, Anupama Unavailable Unavailable Balog, Anupama Unavailable Unavailable Balog, Anupama Unavailable Unavailable SYMENOW, G CHRISTOPHER PA Unavailable Unavailable SYMENOW, G CHRISTOPHER PA Unavailable Unavailable SYMENOW, G CHRISTOPHER PA Unavailable Unavailable SYMENOW, G CHRISTOPHER PA Unavailable Unavailable SYMENOW, G CHRISTOPHER PA Unavailable Unavailable SYMENOW, G CHRISTOPHER PA Unavailable Unavailable SYMENOW, G CHRISTOPHER PA Unavailable Unavailable SYMENOW, G CHRISTOPHER PA Unavailable Unavailable SYMENOW, G CHRISTOPHER PA Unavailable Unavailable SYMENOW, G CHRISTOPHER PA Unavailable Unavailable SYMENOW, G CHRISTOPHER PA Unavailable Unavailable SYMENOW, G CHRISTOPHER PA Unavailable Unavailable SYMENOW, G CHRISTOPHER PA Unavailable Unavailable SYMENOW, G CHRISTOPHER PA Unavailable Unavailable SYMENOW, G CHRISTOPHER PA Unavailable Unavailable SYMENOW, G CHRISTOPHER PA Unavailable Unavailable SYMENOW, G CHRISTOPHER PA Unavailable Unavailable JENNIFER CRUZ MD Unavailable Unavailable JENNIFER CRUZ MD Unavailable Unavailable JENNIFER CRUZ MD Unavailable Unavailable JENNIFER CRUZ MD Unavailable Unavailable JENNIFER CRUZ MD Unavailable Unavailable JENNIFER CRUZ MD Unavailable Unavailable JENNIFER CRUZ MD Unavailable Unavailable JENNIFER CRUZ MD Unavailable Unavailable JENNIFER CRUZ MD Unavailable Unavailable JENNIFER CRUZ MD Unavailable Unavailable JENNIFER CRUZ MD Unavailable Unavailable JENNIFER CRUZ MD Unavailable Unavailable JENNIFER CRUZ MD Unavailable Unavailable JENNIFER CRUZ MD Unavailable Unavailable JENNIFER CRUZ MD Unavailable Unavailable Naylor, W Jonh RPA-C Unavailable Unavailable Naylor, W Jonh RPA-C Unavailable Unavailable Naylor, W Jonh RPA-C Unavailable Unavailable Naylor, W Jonh RPA-C Unavailable Unavailable Naylor, W Jonh RPA-C Unavailable Unavailable Naylor, W Jonh RPA-C Unavailable Unavailable Naylor, W Jonh RPA-C Unavailable Unavailable Naylor, W Jonh RPA-C Unavailable Unavailable Naylor, W Jonh RPA-C Unavailable Unavailable Naylor, W Jonh RPA-C Unavailable Unavailable Naylor, W Jonh RPA-C Unavailable Unavailable Naylor, W Jonh RPA-C Unavailable Unavailable Naylor, W Jonh RPA-C Unavailable Unavailable Naylor, W Jonh RPA-C Unavailable Unavailable Naylor, W Jonh RPA-C Unavailable Unavailable Naylor, W Jonh RPA-C Unavailable Unavailable AIDEE, L BUNNY PA Unavailable Unavailable AIDEE, L BUNNY PA Unavailable Unavailable AIDEE, L BUNNY PA Unavailable Unavailable AIDEE, L BUNNY PA Unavailable Unavailable AIDEE, L BUNNY PA Unavailable Unavailable AIDEE, L BUNNY PA Unavailable Unavailable AIDEE, L BUNNY PA Unavailable Unavailable AIDEE, L BUNNY PA Unavailable Unavailable AIDEE, L BUNNY PA Unavailable Unavailable AIDEE, L BUNNY PA Unavailable Unavailable AIDEE, L BUNNY PA Unavailable Unavailable AIDEE, L BUNNY PA Unavailable Unavailable AIDEE, L BUNNY PA Unavailable Unavailable AIDEE, L BUNNY PA Unavailable Unavailable AIDEE, L BUNNY PA Unavailable Unavailable AIDEE, L BUNNY PA Unavailable Unavailable AIDEE, L BUNNY PA Unavailable Unavailable AIDEE, L BUNNY PA Unavailable Unavailable AIDEE, L BUNNY PA Unavailable Unavailable Chary Conley MD Unavailable Unavailabl e Chary Conley MD Unavailable Unavailabl e Jarvis, Diez Jw Gene MD Unavailable Unavailabl e Jarvis, Diez Jw Gene MD Unavailable Unavailabl e Jarvis, Diez Jw Gene MD Unavailable Unavailabl e Jarvis, Diez Jw Gene MD Unavailable Unavailabl e Jarvis, Diez Jw Gene MD Unavailable Unavailabl e Jarvis, Diez Jw Gene MD Unavailable Unavailabl e Jarvis, Diez Jw Gene MD Unavailable Unavailabl e Jarvis, Diez Jw Gene MD Unavailable Unavailabl e Jarvis, Diez Jw Gene MD Unavailable Unavailabl e Jarvis, Diez Jw Gene MD Unavailable Unavailabl e Jarvis, Diez Jw Gene MD Unavailable Unavailabl e Jarvis, Diez Jw Gene MD Unavailable Unavailabl e Jarvis, Diez Jw Gene MD Unavailable Unavailabl e Jarvis, Diez Jw Gene MD Unavailable Unavailabl e Jarvis, Diez Jw Gene MD Unavailable Unavailabl e Jarvis, Diez Jw Gene MD Unavailable Unavailabl e Jarvis, Diez Jw Gene MD Unavailable Unavailabl e Jarvis, Diez Jw Gene MD Unavailable Unavailabl e Jarvis, Diez Jw Gene MD Unavailable Unavailabl e Jarvis, Diez Jw Gene MD Unavailable Unavailabl e Jarvis, Diez Jw Gene MD Unavailable Unavailabl e Jarvis, Diez Jw Gene MD Unavailable Unavailabl e Jarvis, Diez Jw Gene MD Unavailable Unavailabl e Jarvis, Diez Jw Gene MD Unavailable Unavailabl e Jarvis, Diez Jw Gene MD Unavailable Unavailabl e Jarvis, Diez Jw Gene MD Unavailable Unavailabl e Jarvis, Diez Jw Gene MD Unavailable Unavailabl Gary Adhikari PA Unavailable Unavailable Gary KNOWLES PA Unavailable Unavailable Gary KNOWLES PA Unavailable Unavailable Gary KNOWLES PA Unavailable Unavailable Gary KNOWLES PA Unavailable Unavailable Gary KNOWLES PA Unavailable Unavailable Gary KNOWLES PA Unavailable Unavailable Gary KNOWLES PA Unavailable Unavailable Gary KNOWLES PA Unavailable Unavailable Gary KNOWLES PA Unavailable Unavailable Gary KNOWLES PA Unavailable Unavailable Gary KNOWLES PA Unavailable Unavailable Gary KNOWLES PA Unavailable Unavailable Gary KNOWLES PA Unavailable Unavailable Gary KNOWLES PA Unavailable Unavailable Gary KNOWLES PA Unavailable Unavailable BENSON, M EARNESTINE PA Unavailable Unavailable BENSON, M EARNESTINE PA Unavailable Unavailable BENSON, M EARNESTINE PA Unavailable Unavailable BENSON, M EARNESTINE PA Unavailable Unavailable BENSON, M EARNESTINE PA Unavailable Unavailable BENSON, M EARNESTINE PA Unavailable Unavailable BENSON, M EARNESTINE PA Unavailable Unavailable BENSON, M EARNESTINE PA Unavailable Unavailable QUIRINO MARIE MD Unavailable Unavailable QUIRINO MARIE MD Unavailable Unavailable QUIRINO MARIE MD Unavailable Unavailable QUIRINO MARIE MD Unavailable Unavailable QUIRINO MARIE MD Unavailable Unavailable QUIRINO MARIE MD Unavailable Unavailable QUIRINO MARIE MD Unavailable Unavailable QUIRINO MARIE MD Unavailable Unavailable QUIRINO MARIE MD Unavailable Unavailable QUIRINO MARIE MD Unavailable Unavailable QUIRINO MARIE MD Unavailable Unavailable QUIRINO MARIE MD Unavailable Unavailable QUIRINO MARIE MD Unavailable Unavailable QUIRINO MARIE MD Unavailable Unavailable QUIRINO MARIE MD Unavailable Unavailable QUIRINO MARIE MD Unavailable Unavailable QUIRINO MARIE MD Unavailable Unavailable QUIRINO MARIE MD Unavailable Unavailable QUIRINO MARIE MD Unavailable Unavailable QUIRINO MARIE MD Unavailable Unavailable QUIRINO MARIE MD Unavailable Unavailable QUIRINO MARIE MD Unavailable Unavailable QUIRINO MARIE MD Unavailable Unavailable QUIRINO MARIE MD Unavailable Unavailable QUIRINO MARIE MD Unavailable Unavailable QUIRINO MARIE MD Unavailable Unavailable QUIRINO MARIE MD Unavailable Unavailable QUIRINO MARIE MD Unavailable Unavailable Sascha WILLIAMSON MD Unavailable Unavailable Sascha WILLIAMSON MD Unavailable Unavailable Sascha WILLIAMSON MD Unavailable Unavailable Sascha WILLIAMSON MD Unavailable Unavailable Sascha WILLIAMSNO MD Unavailable Unavailable Sascha WILLIAMSON MD Unavailable Unavailable Sascha WILLIAMSON MD Unavailable Unavailable Sascha WILLIAMSON MD Unavailable Unavailable Sascha WILLIAMSON MD Unavailable Unavailable Sascha WILLIAMSON MD Unavailable Unavailable Sascha WILLIAMSON MD Unavailable Unavailable Sascha WILLIAMSON MD Unavailable Unavailable Sascha WILLIAMSON MD Unavailable Unavailable Sascha WILLIAMSON MD Unavailable Unavailable Sascha WILLIAMSON MD Unavailable Unavailable Sascha WILLIAMSON MD Unavailable Unavailable Sascha WILLIAMSON MD Unavailable Unavailable GRACIE GARDNER MD Unavailable GRACIE GARDNER MD Unavailable GRACIE GARDNER MD Unavailable GRACIE GARDNER MD Unavailable GRACIE GARDNER MD Unavailable Miki, Melany Unavailable Unavailable Miki, Melany Unavailable Unavailable Miki, Melany Unavailable Unavailable Miki, Melany Unavailable Unavailable Miki, Melany Unavailable Unavailable ANTECOL, Lety WINN MD Unavailable Unavailable ANTECOL, Lety WINN MD Unavailable Unavailable ANTECOL, Lety WINN MD Unavailable Unavailable ANTECOL, Lety WINN MD Unavailable Unavailable ANTECOL, Lety WINN MD Unavailable Unavailable ANTECOL, Lety WINN MD Unavailable Unavailable ANTECOL, Lety WINN MD Unavailable Unavailable ANTECOL, Lety WINN MD Unavailable Unavailable ANTECOL, Lety WINN MD Unavailable Unavailable ANTECOL, Lety WINN MD Unavailable Unavailable ANTECOL, Lety WINN MD Unavailable Unavailable ANTECOL, Lety WINN MD Unavailable Unavailable ANTECOL, Lety WINN MD Unavailable Unavailable ANTECOL, Lety WINN MD Unavailable Unavailable ANTECOL, Lety WINN MD Unavailable Unavailable ANTECOL, Lety WINN MD Unavailable Unavailable ANTECOL, Lety WINN MD Unavailable Unavailable ANTECOL, Lety WINN MD Unavailable Unavailable ANTECOL, Lety WINN MD Unavailable Unavailable ANTECOL, Lety WINN MD Unavailable Unavailable ANTECOL, Lety WINN MD Unavailable Unavailable ANTECOL, Lety WINN MD Unavailable Unavailable ANTECOL, Lety WINN MD Unavailable Unavailable ANTECOL, Lety WINN MD Unavailable Unavailable ANTECOL, Lety WINN MD Unavailable Unavailable ANTECOL, Lety WINN MD Unavailable Unavailable ANTECOL, Lety WINN MD Unavailable Unavailable ANTECOL, Lety WINN MD Unavailable Unavailable ANTECOL, Lety WINN MD Unavailable Unavailable ANTECOL, Lety WINN MD Unavailable Unavailable ANTECOL, Lety WINN MD Unavailable Unavailable ANTECOL, Lety WINN MD Unavailable Unavailable ANTECOL, Ltey WINN MD Unavailable Unavailable ANTECOL, Lety WINN MD Unavailable Unavailable ANTECOL, Lety WINN MD Unavailable Unavailable ANTECOL, Lety WINN MD Unavailable Unavailable ANTECOL, Lety WINN MD Unavailable Unavailable ANTECOL, Lety WINN MD Unavailable Unavailable ANTECOL, Lety WINN MD Unavailable Unavailable ANTECOL, Lety WINN MD Unavailable Unavailable ANTECOL, Lety WINN MD Unavailable Unavailable ANTECOL, Lety WINN MD Unavailable Unavailable ANTECOL, Lety WINN MD Unavailable Unavailable ANTECOL, Lety WINN MD Unavailable Unavailable ANTECOL, Lety WINN MD Unavailable Unavailable ANTECOL, Lety WINN MD Unavailable Unavailable ANTECOL, Lety WINN MD Unavailable Unavailable ANTECOL, Lety WINN MD Unavailable Unavailable ANTECOL, Lety WINN MD Unavailable Unavailable ANTECOL, Lety WINN MD Unavailable Unavailable ANTECOL, Lety WINN MD Unavailable Unavailable ANTECOL, Lety WINN MD Unavailable Unavailable ANTECOL, Lety WINN MD Unavailable Unavailable ANTECOL, Lety WINN MD Unavailable Unavailable ANTECOL, Lety PA MD Unavailable Unavailable MAJAK, R GAY DPM Unavailable Unavailable MAJAK, R GAY DPM Unavailable Unavailable MAJAK, R GAY DPM Unavailable Unavailable MAJAK, R GAY DPM Unavailable Unavailable MAJAK, R GAY DPM Unavailable Unavailable MAJAK, R GAY DPM Unavailable Unavailable MAJAK, R GAY DPM Unavailable Unavailable MAJAK, R GAY DPM Unavailable Unavailable MAJAK, R GAY DPM Unavailable Unavailable MAJAK, R GAY DPM Unavailable Unavailable MAJAK, R GAY DPM Unavailable Unavailable MAJAK, R GAY DPM Unavailable Unavailable MAJAK, R GAY DPM Unavailable Unavailable MAJAK, R GAY DPM Unavailable Unavailable MAJAK, R GAY DPM Unavailable Unavailable MAJAK, R GAY DPM Unavailable Unavailable MAJAK, R GAY DPM Unavailable Unavailable MAJAK, R GAY DPM Unavailable Unavailable MAJAK, R GAY DPM Unavailable Unavailable MAJAK, R GAY DPM Unavailable Unavailable MAJAK, R GAY DPM Unavailable Unavailable MAJAK, R GAY DPM Unavailable Unavailable MAJAK, R GAY DPM Unavailable Unavailable MAJAK, R GAY DPM Unavailable Unavailable MAJAK, R GAY DPM Unavailable Unavailable MAJAK, R GAY DPM Unavailable Unavailable MAJAK, R GAY DPM Unavailable Unavailable MAJAK, R GAY DPM Unavailable Unavailable MAJAK, R GAY DPM Unavailable Unavailable MAJAK, R GAY DPM Unavailable Unavailable DORA QUESADA Unavailable Unavailable HUMAYUN, U FLETCHER Unavailable Unavailable HUMAYUN, U FLETCHER MD Unavailable Unavailable HUMAYUN, U FLETCHER Unavailable Unavailable HUMAYUN, U FLETCHER MD Unavailable Unavailable HUMAYUN, U FLETCHER MD Unavailable Unavailable HUMAYUN, U FLETCHER MD Unavailable Unavailable HUMAYUN, U FLETCHER MD Unavailable Unavailable HUMAYUN, U FLETCHER MD Unavailable Unavailable HUMAYUN, U FLETCHER Unavailable Unavailable HUMAYUN, U FLETCHER MD Unavailable Unavailable HUMAYUN, U FLETCHER MD Unavailable Unavailable HUMAYUN, U FLETCHER MD Unavailable Unavailable HUMAYUN, U FLETCHER MD Unavailable Unavailable HUMAYUN, U FLETCHER MD Unavailable Unavailable HUMAYUN, U FLETCHER Unavailable Unavailable HUMAYUN, U FLETCHER MD Unavailable Unavailable HUMAYUN, U FLETCHER MD Unavailable Unavailable HUMAYUN, U FLETCHER MD Unavailable Unavailable HUMAYUN, U FLETCHER MD Unavailable Unavailable HUMAYUN, U FLETCHER MD Unavailable Unavailable HUMAYUN, U FLETCHER MD Unavailable Unavailable HUMAYUN, U FLETCHER MD Unavailable Unavailable HUMAYUN, U FLETCHER MD Unavailable Unavailable HUMAYUN, U FLETCHER MD Unavailable Unavailable HUMAYUN, U FLETCHER MD Unavailable Unavailable HUMAYUN, U FLETCHER MD Unavailable Unavailable HUMAYUN, U FLETCHER MD Unavailable Unavailable HUMAYUN, U FLETCHER MD Unavailable Unavailable HUMAYUN, U FLETCHER MD Unavailable Unavailable HUMAYUN, U FLETCHER MD Unavailable Unavailable HUMAYUN, U FLETCHER MD Unavailable Unavailable HUMAYUN, U FLETCHER MD Unavailable Unavailable Dinesh Small MD Unavailable Unavailable Dinesh Small MD Unavailable Unavailable Dinesh Small MD Unavailable Unavailable Dinesh Small MD Unavailable Unavailable Dinesh Small MD Unavailable Unavailable Dinesh Small MD Unavailable Unavailable Dinesh Small MD Unavailable Unavailable Dinesh Small MD Unavailable Unavailable Dinesh Small MD Unavailable Unavailable Dinesh Small MD Unavailable Unavailable Dinesh Small MD Unavailable Unavailable Dinesh Small MD Unavailable Unavailable Dinesh Small MD Unavailable Unavailable Dinesh Small MD Unavailable Unavailable Dany-Kamarially, A Zipraveen MD Unavailable Unavailable El-Khally, A Ziad MD Unavailable Unavailable Dany-Kamarially, A Ziad MD Unavailable Unavailable Dany-Kamarially, A Ziad MD Unavailable Unavailable El-Khally, A Ziad MD Unavailable Unavailable El-Khally, A Ziad MD Unavailable Unavailable El-Khally, A Ziad MD Unavailable Unavailable El-Khally, A Ziad MD Unavailable Unavailable El-Khally, A Ziad MD Unavailable Unavailable El-Khally, A Ziad MD Unavailable Unavailable El-Khally, A Ziad MD Unavailable Unavailable El-Khally, A Ziad MD Unavailable Unavailable El-Khally, A Ziad MD Unavailable Unavailable El-Khally, A Ziad MD Unavailable Unavailable El-Khally, A Ziad MD Unavailable Unavailable El-Khally, A Ziad MD Unavailable Unavailable El-Khally, A Ziad MD Unavailable Unavailable El-Khally, A Ziad MD Unavailable Unavailable El-Khally, A Ziad MD Unavailable Unavailable El-Khally, A Ziad MD Unavailable Unavailable El-Khally, A Ziad MD Unavailable Unavailable El-Khally, A Ziad MD Unavailable Unavailable El-Khally, A Ziad MD Unavailable Unavailable El-Khally, A Ziad MD Unavailable Unavailable El-Khally, A Ziad MD Unavailable Unavailable El-Khally, A Ziad MD Unavailable Unavailable El-Khally, A Ziad MD Unavailable Unavailable El-Khally, A Ziad MD Unavailable Unavailable El-Khally, A Ziad MD Unavailable Unavailable El-Khally, A Ziad MD Unavailable Unavailable El-Khally, A Ziad MD Unavailable Unavailable El-Khally, A Ziad MD Unavailable Unavailable El-Khally, A Ziad MD Unavailable Unavailable El-Khally, A Ziad MD Unavailable Unavailable El-Khally, A Ziad MD Unavailable Unavailable El-Khally, A Ziad MD Unavailable Unavailable El-Khally, A Ziad MD Unavailable Unavailable El-Khally, A Ziad MD Unavailable Unavailable El-Khally, A Ziad MD Unavailable [facility] Unavailable Unavailable DORA CORREA Unavailable Unavailable SYSTEM IN, NOT IN PROVIDER Unavailable Unavailable Babu, Omkar MD Unavailable Unavailable Babu, Omkar MD Unavailable Unavailable Babu, Omkar MD Unavailable Unavailable Babu, Omkar MD Unavailable Unavailable Babu, Omkar MD Unavailable Unavailable Babu, Omkar MD Unavailable Unavailable Babu, Omkar MD Unavailable Unavailable Babu, Omkar MD Unavailable Unavailable Babu, Omkar MD Unavailable Unavailable Babu, Omkar MD Unavailable Unavailable Babu, Omkar MD Unavailable Unavailable Babu, Omkar MD Unavailable Unavailable Babu, Omkar MD Unavailable Unavailable Babu, Omkar MD Unavailable Unavailable Babu, Omkar MD Unavailable Unavailable SONG, RIGO Unavailable Unavailable Re-disclosure Warning The records that you are about to access may contain information from federally-assisted alcohol or drug abuse programs. If such information is present, then the following federally mandated warning applies: This information has been disclosed to you from records protected by federal confidentiality rules (42 CFR part 2). The federal rules prohibit you from making any further disclosure of this information unless further disclosure is expressly permitted by the written consent of the person to whom it pertains or as otherwise permitted by 42 CFR part 2. A general authorization for the release of medical or other information is NOT sufficient for this purpose. The Federal rules restrict any use of the information to criminally investigate or prosecute any alcohol or drug abuse patient.The records that you are about to access may contain highly sensitive health information, the redisclosure of which is protected by Article 27-F of the [facility] Public Health law. If you continue you may have access to information: Regarding HIV / AIDS; Provided by facilities licensed or operated by the [facility] Office of Mental Health; or Provided by the [facility] Office for People With Developmental Disabilities. If such information is present, then the following [facility] mandated warning applies: This information has been disclosed to you from confidential records which are protected by state law. State law prohibits you from making any further disclosure of this information without the specific written consent of the person to whom it pertains, or as otherwise permitted by law. Any unauthorized further disclosure in violation of state law may result in a fine or alf sentence or both. A general authorization for the release of medical or other information is NOT sufficient authorization for further disc losure. Allergies and Adverse Reactions Type Description Substance Reaction Status Data Source(s ) Drug Class NO KNOWN ALLERGIES NO KNOWN ALLERGIES [facility] Drug allergy MDX - Nka - No Known Allergies MDX - Nka - No Known [facility] Family History Family Member Name Family Member Gender Family Member Status Date o f Status Description Data Source(s) Unknown Male Problem [facility] ([facility] Encounters Encounter Providers Location Date Indications Data Source(s ) Outpatient Attender: Sinai REY Main Office 05/11/2020 08:15:00 AM EST MED[facility] ([facility] Unknown [address] [facility] [address] 05/06/2020 12:00:00 AM EST eCW1 ([facility]) Unknown [address] [facility] [place] [address] 04/30/2020 12:00:00 AM EST eCW1 ([facility]) Unknown [address] [facility] [address] 04/27/2020 12:00:00 AM EST eCW1 ([facility]) Emergency Attender: BUNNY Juarez: Eleni [facility] 04/23/2020 02:12:00 PM EST - 04/23/2020 06:12:00 PM [facility] Patient discharged. [place] [address] [facility] [place] [address] 04/13/2020 12:00:00 AM EST eCW1 ([facility]) Outpatient [address] [facility] [address] 04/12/2020 12:00:00 AM EST eCW1 ([facility]) Unknown [address] [facility] [address] 03/24/2020 12:00:00 AM EST eCW1 ([facility]) Outpatient Attender: Pat Marcelino MDConsultant: [facility] [id number] 03/23/2020 01:19:00 AM [facility] Inpatient Attender: Pat Marcelino MDAttender: ISAÍAS GRADY PAAttender: BUNNY HOSKINS PAAdmitter: Pat Marcelino MDReferrer: Sloane [facility] 03/22/2020 11:28:00 PM EST - 03/23/2020 03:27:00 PM [facility] Patient discharged. [place] [address] [facility] [address] 03/22/2020 12:00:00 AM EST eCW1 ([facility]) Outpatient [address] [facility] [address] 03/16/2020 12:00:00 AM EST eCW1 ([facility]) Emergency Attender: BUNNY Juarez: Eleni Urrutia [facility] EMERGENCY ROOM-ER 03/13/2020 09:53:00 PM EST - 03/14/2020 01:00:00 AM [facility] Patient discharged. 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 Outpatient Attender: Sinai REY Main Office 03/01/2020 09:45:00 AM EST [facility] ([facility]) Outpatient [address] [facility] [address] 02/25/2020 12:00:00 AM EST eCW1 ([facility]) Unknown [address] [facility] [address] 02/18/2020 12:00:00 AM EDT eCW1 ([facility]) Office Visit Attender: PA RODRIGUEZ MD Main Office 02/17/2020 10: 15:00 AM EDT [facility] ([facility]) Unknown [address] [facility] [place] [address] 02/10/2020 12:00:00 AM EDT eCW1 ([facility]) Unknown [address] [facility] [address] 01/22/2020 12:00:00 AM EDT eCW1 ([facility]) Office Visit Attender: PA RODRIGUEZ MD Main Office 12/23/2019 10: 31:00 AM EDT MED[facility] ([facility]) Emergency Attender: Jonh Naylor RPA-CReferrer: Sloane MIGUEL 12/13/2019 03:32:00 PM EDT - 12/13/2019 05:28:00 PM EDT [facility] Patient discharged. Outpatient Attender: Omkar Reyna MDAttender: RIGO HUYNH [id number] LAKHWINDERJOHN 12/03/2019 12:00:00 AM EDT - 12/03/2019 03:08:32 PM EDT [facility] Outpatient Attender: Sinai REY Main Office 11/28/2019 08:00:00 AM EDT MED[facility] ([facility]) Inpatient Attender: FLETCHER BARBA MDAt tender: MARIA WILLIAMSON MDAdmitter: DANIELLA VIZCARRA MDConsultant: Baljit Sinclair MD (Jack) [id number] 11/25/2019 04 :24:14 AM EDT - 11/26/2019 02:52:00 PM EDT [facility] Patient discharged. Outpatient Attender: LUIS CARLOS DIALLO PAConsultant: [facility] osp [id number] 11/24/2019 08:35:00 PM EDT [facility] Emergency Attender: LUIS CARLOS DIALLO PAReferrer: Hanna Urrutia [facility] EMERGENCY ROOM-ER 11/24/2019 07:57:00 PM EDT - 11/25/2019 02:30:00 AM EDT [facility] Patient discharged. Office Visit Attender: PA RODRIGUEZ MD Main Office 11/21/2019 02: 48:00 PM EDT MEDANNA ([facility]) Outpatient Attender: Juventino WalkerReferrer: Juventino Walker 11/14/2019 12:00:00 AM EDT [facility] Emergency Attender: NICO QUESADAReferrer: Yonathan Urrutia [facility] EMERGENCY ROOM-ER 11/13/2019 08:00:00 PM EDT - 11/13/2019 10:15:00 PM EDT [facility] Patient discharged. Inpatient Attender: GRACIE GARDNER MDAt tender: Michelle Mendozaender: RONNY CALHOUN IIIAdmitter: GRACIE GARDNER MDReferrer: Anupama MendietaConsultant: Jw Conley MD [id number] 11/13/2019 12:00:00 AM EDT - 11/15/2019 05:54:00 PM EDT Traumatic subdural hemorrhage without loss of consciousness, subsequent encounter [facility] Traumatic subdural hemorrhage without lo ss of consciousness, subsequent encounter Patient discharged. Unknown [address] [facility] [place] [address] 11/11/2019 12:00:00 AM EDT eCW1 ([facility]) Unknown [address] [facility] [address] 11/11/2019 12:00:00 AM EDT eCW1 ([facility]) Outpatient Referrer: PROVIDER SYSTEM IN 11/05/2019 0 6:10:00 PM EDT stable [facility] stable aneurysm Unknown [address] [facility] [address] 11/04/2019 12:00:00 AM EDT eCW1 ([facility]) Outpatient Attender: Sinai REY Main Office 10/29/2019 12:45:00 PM EDT MED[facility] ([facility]) Unknown [address] [facility] [address] 10/13/2019 12:00:00 AM EDT eCW1 ([facility]) Inpatient Attender: Sherrill andrade MDAttender: Raymond Casiano MDAttender: QUIRINO MARIE MDAdmitter: Sherrill Martini MD [id number] 10/12/19 12:03:03 AM EDT - 10/14/2019 01:25:00 PM EDT [facility] Patient discharged. [facility] [address] [place] [address] 10/08/2019 12:00:00 AM EDT eCW1 ([facility]) Inpatient Attender: MARIA WILLIAMSON MD Attender: Melany LeivaediAdmitter: Melany Livingston [id number] 10/06/2019 06:57:00 PM EDT - 10/09/2019 04:53:00 PM EDT [facility] Patient discharged. Unknown [address] [facility] [address] 10/06/2019 12:00:00 AM EDT eCW1 ([facility]) Outpatient [address] [facility], [facility] [address] 10/02/2019 12:00:00 AM EDT eCW1 ([facility]) Unknown [address] [facility] [address] 09/26/2019 12:00:00 AM EDT eCW1 ([facility]) [facility] [address] [facility] [address] 09/16/2019 12:00:00 AM EDT eCW1 ([facility]) Office Visit Attender: PA RODRIGUEZ MD Main Office 09/12/2019 11: 04:00 AM EDT MED[facility] ([facility]) [facility] [address] [facility] [address] 09/11/2019 12:00:00 AM EDT eCW1 ([facility] [address] [facility] [address] 09/08/2019 12:00:00 AM EDT eCW1 ([facility]) [facility] [address] [facility] [place] [address] 09/02/2019 12:00:00 AM EDT eCW1 ([facility]) [facility] Selvin Timmons [address] [place] [address], [place] [address] 07/30/2019 12:00:00 AM EDT eCW1 ([facility]) [facility] [place] [address] [place] [address], [place] [address] 07/22/2019 12:00:00 AM EDT eCW1 ([facility]) [facility] [address] [facility] [place] [address] 07/08/2019 12:00:00 AM EDT eCW1 ([facility]) [facility] [address] [place] [address], [place] [address] 07/07/2019 12:00:00 AM EDT eCW1 ([facility]) [facility] [address] [place] [address], [place] [address] 07/02/2019 12:00:00 AM EDT eCW1 ([facility]) [facility] [address] [place] [address], [place] [address] 07/02/2019 12:00:00 AM EDT eCW1 ([facility]) [facility] [address] [place] [address], [place] [address] 06/30/2019 12:00:00 AM EDT eCW1 ([facility]) [facility] Jose A [address] [place] [address], [place] [address] 06/30/2019 12:00:00 AM EDT eCW1 ([facility]) [address] [address] 06/24/2019 12:00:00 AM EST eCW1 ([facility]) [address] [address] 06/19/2019 12:00:00 AM EST eCW1 ([facility]) Emergency Attender: LUIS CARLOS Earlyer: Sloane Urrutia [employer] 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 [address] [address] 06/18/2019 12:00:00 AM EST eCW1 ([facility]) Outpatient Attender: Sinai REY Main Office 06/17/2019 11:30:00 AM EST MEDENT ([facility]) [address] [address] 06/16/2019 12:00:00 AM EST eCW1 ([facility]) [address] [address] 06/12/2019 12:00:00 AM EST eCW1 ([facility]) Outpatient 06/11/2019 02:11:00 PM EST [facility] Office Visit Attender: PA RODRIGUEZ MD Main Office 2019 01: 23:00 PM EST MEDENT ([facility]) [address] [address] 2019 12:00:00 AM EST eCW1 ([facility]) [address] [address] 2019 12:00:00 AM EST eCW1 ([facility]) Outpatient Attender: GAY MALHOTRA [facility] Office 05/24 09:30:00 AM EST [facility] ([facility] [address], [facility] [address] 06/09/2019 12:00:00 AM EST [facility]1 [facility]) Outpatient Attender: GAY MALHOTRA [facility] Office 05/24 09:00:00 AM EST [facility] ([facility] [address] [address] 06/06/2019 12:00:00 AM EST [facility]CW1 ([facility]) [address] [address] 06/05/2019 12:00:00 AM EST [facility] [address] [address] 06/02/2019 12:00:00 AM EST [facility]) Outpatient Attender: EARNESTINE REY 05/31/2019 12:30:00 PM EST [facility] 0 12:00:00 AM EST eCW1 ([facility]) [address] [address] 05/27/2019 12:00:00 AM EST [facility]) [address] [address] 05/21/2019 12:00:00 AM EST [facility]1 [facility] [address] [place] [address] 05/21/2019 12:00:00 AM EST [facility]CW1 [facility] Selvin Timmons [address] [place] [address] 05/19/2019 12:00:00 AM EST [facility]) Outpatient Attender: PA RODRIGUEZ MD Main Office 05/06/2019 11:30:00 AM EST MEDENT ([facility]) [address] [place] [address] 05/02/2019 12:00:00 AM EST eCW1 ([facility]) [facility] [address] [facility] [facility] [place] [address] 05/01/2019 12:00:00 AM EST eCW1 ([facility]) [facility] [address] [facility] [address] 04/30/2019 12:00:00 AM EST eCW1 ([facility]) Inpatient Attender: Dinesh Small MDAt tender: JENNIFER CRUZ MDAdmitter: JENNIFER CRUZ MD [id number] 04/22/2019 03:27:56 AM EST - 04/25/2019 04:59:00 PM EST [facility] Patient discharged. Emergency Attender: LUIS CARLOS DIALLO PAReferrer: Nikolai YI DO EMERGENCY ROOM-ER 04/21/2019 08:58:00 PM EST - 04/22/2019 01:45:00 AM [facility] Patient discharged. Outpatient Attender: GAY MALHOTRA [facility] Office 07/2018 01:30:00 PM [facility] Outpatient Attender: EBER ORELLANAeferrer: EBER YI DO EMERGENCY ROOM-[facility] 03/17/2019 02:48:00 PM EST - 03/17/2019 02:48:00 PM [facility] Emergency Attender: RAKESH Palacioserrer: EBER YI DO 03/07/2019 11:11:00 PM [facility] - 03/07/2019 11:19:00 PM [facility]co Patient discharged. Emergency Attender: RAKESH Mullerer: EBER YI DO 02/28/2019 05:22:00 PM EST - 02/28/2019 05:25:00 PM [facility] pital Patient discharged. Outpatient Attender: EBER YI DO 2017 02:00:00 PM EDT - 01/17/2018 02:00:00 PM [facility] Emergency Attender: Jonh STEVE EMERGENCY ROOM-ER 0 11/03/2014 10:25:00 AM EDT - 11/03/2014 [facility]: EBER KASSIDY ROSARIO 03/18/2014 02:05:00 P [facility] Outpatient Attender: EBER YI DO 03/14/2014 08:58:00 A [facility] Inpatient Attender: ISAÍAS GRADY PAAdmitter: CHETAN REY 08/29/2012 05:46:00 PM EDT - 08/30/2012 07:42:00 AM [facility] Immunizations Vaccine Date Status Description Data Source(s) influenza, recombinant, quadrIvalent,injectable, prese rvative free 01/12/2020 03:51:00 PM EDT completed eCW1 ([facility]) influenza, recombinant, quadrIvalent,injectable, prese rvative free 01/12/2020 03:51:00 PM EDT completed eCW1 ([facility]) influenza, recombinant, quadrIvalent,injectable, prese rvative free 01/12/2020 03:51:00 PM EDT completed eCW1 ([facility]) influenza, recombinant, quadrIvalent,injectable, prese rvative free 01/12/2020 03:51:00 PM EDT completed eCW1 ([facility]) influenza, recombinant, quadrIvalent,injectable, prese rvative free 01/12/2020 03:51:00 PM EDT completed eCW1 ([facility]) influenza, recombinant, quadrIvalent,injectable, prese rvative free 01/12/2020 03:51:00 PM EDT completed eCW1 ([facility]) influenza, recombinant, quadrIvalent,injectable, prese rvative free 01/12/2020 03:51:00 PM EDT completed eCW1 ([facility]) influenza, recombinant, quadrIvalent,injectable, prese rvative free 01/12/2020 03:51:00 PM EDT completed eCW1 ([facility]) Medications Medication Brand Name Start Date Product Form Dose Route Admi nistrative Instructions Pharmacy Instructions Status Indications Reaction Description Data Source(s) Acetaminophen 325 MG / Hydrocodone Renetta trate 10 MG Oral Tablet Hydrocodone- Acetaminophen 10-325 MG Hydrocodone-Acetaminophen 10-325 MG 03/16/2020 12:00:0 0 AM EST 1.0 {tablet_as_needed} active Hydrocodone-Acetaminophen 10- 325 MG eCW1 ([facility]) Acetaminophen 325 MG / Hydrocodone Renetta trate 10 MG Oral Tablet Hydrocodone- Acetaminophen 10-325 MG Hydrocodone-Acetaminophen 10-325 MG 03/16/2020 12:00:0 0 AM EST 1.0 {tablet_as_needed} suspended Hydrocodone-Acetaminophen 10-325 MG eCW1 ([facility]) Acetaminophen 325 MG / Hydrocodone Renetta trate 10 MG Oral Tablet Hydrocodone- Acetaminophen 10-325 MG Hydrocodone-Acetaminophen 10-325 MG 03/16/2020 12:00:0 0 AM EST 1.0 {tablet_as_needed} active Hydrocodone-Acetaminophen 10- 325 MG eCW1 ([facility]) Acetaminophen 325 MG / Hydrocodone Renetta trate 10 MG Oral Tablet Hydrocodone- Acetaminophen 10-325 MG Hydrocodone-Acetaminophen 10-325 MG 03/16/2020 12:00:0 0 AM EST 1.0 {tablet_as_needed} suspended Hydrocodone-Acetaminophen 10-325 MG eCW1 ([facility]) Acetaminophen 325 MG / Hydrocodone Renetta trate 10 MG Oral Tablet Hydrocodone- Acetaminophen 10-325 MG Hydrocodone-Acetaminophen 10-325 MG 03/16/2020 12:00:0 0 AM EST 1.0 {tablet_as_needed} suspended Hydrocodone-Acetaminophen 10-325 MG eCW1 ([facility]) Acetaminophen 325 MG / Hydrocodone Renetta trate 10 MG Oral Tablet Hydrocodone- Acetaminophen 10-325 MG Hydrocodone-Acetaminophen 10-325 MG 03/16/2020 12:00:0 0 AM EST 1.0 {tablet_as_needed} suspended Hydrocodone-Acetaminophen 10-325 MG eCW1 ([facility]) Acetaminophen 325 MG / Hydrocodone Renetta trate 10 MG Oral Tablet Hydrocodone- Acetaminophen 10-325 MG Hydrocodone-Acetaminophen 10-325 MG 03/16/2020 12:00:0 0 AM EST 1.0 {tablet_as_needed} suspended Hydrocodone-Acetaminophen 10-325 MG eCW1 ([facility]) Acetaminophen 325 MG / Hydrocodone Renetta trate 10 MG Oral Tablet Hydrocodone- Acetaminophen 10-325 MG Hydrocodone-Acetaminophen 10-325 MG 03/16/2020 12:00:0 0 AM EST 1.0 {tablet_as_needed} active Hydrocodone-Acetaminophen 10- 325 MG eCW1 ([facility]) Omeprazole 20 MG Delayed Release Oral Capsule Omeprazole 02/29/2020 12:00:00 AM EST ORAL active [facility] ([facility] Metformin hydrochloride 1000 MG Oral Tablet Metformin HCL 02/29/2020 12:00:00 AM EST ORAL active [facility] ([facility]) Magnesium 02/29/2020 12:00:00 AM EST ORAL active MEDENT ([facility]) ferrous sulfate 325 MG Oral Tablet Iron 02/29/2020 12:00:00 AM EST ORAL active [facility] ([facility]) Omeprazole 20 MG Delayed Release Oral Capsule Omeprazole 20 MG 01/22/2020 12:00:00 AM EDT active Omeprazo le 20 MG eCW1 ([facility]) Omeprazole 20 MG Delayed Release Oral Capsule Omeprazole 20 MG 01/22/2020 12:00:00 AM EDT active Omeprazo le 20 MG eCW1 ([facility]) Omeprazole 20 MG Delayed Release Oral Capsule Omeprazole 20 MG 01/22/2020 12:00:00 AM EDT active Omeprazo le 20 MG eCW1 ([facility]) Omeprazole 20 MG Delayed Release Oral Capsule Omeprazole 20 MG 01/22/2020 12:00:00 AM EDT active Omeprazo le 20 MG eCW1 ([facility]) Omeprazole 20 MG Delayed Release Oral Capsule Omeprazole 20 MG 01/22/2020 12:00:00 AM EDT active Omeprazo le 20 MG eCW1 ([facility]) Omeprazole 20 MG Delayed Release Oral Capsule Omeprazole 20 MG 01/22/2020 12:00:00 AM EDT active Omeprazo le 20 MG eCW1 ([facility]) Omeprazole 20 MG Delayed Release Oral Capsule Omeprazole 20 MG 01/22/2020 12:00:00 AM EDT active Omeprazo le 20 MG eCW1 ([facility]) Omeprazole 20 MG Delayed Release Oral Capsule Omeprazole 20 MG 01/22/2020 12:00:00 AM EDT active Omeprazo le 20 MG eCW1 ([facility]) Omeprazole 20 MG Delayed Release Oral Capsule Omeprazole 20 MG 01/22/2020 12:00:00 AM EDT active Omeprazo le 20 MG eCW1 ([facility]) Omeprazole 20 MG Delayed Release Oral Capsule Omeprazole 20 MG 01/22/2020 12:00:00 AM EDT active Omeprazo le 20 MG eCW1 ([facility]) Omeprazole 20 MG Delayed Release Oral Capsule Omeprazole 20 MG 01/22/2020 12:00:00 AM EDT active Omeprazo le 20 MG eCW1 ([facility]) Omeprazole 20 MG Delayed Release Oral Capsule Omeprazole 20 MG 01/22/2020 12:00:00 AM EDT active Omeprazo le 20 MG eCW1 ([facility]) Magnesium 11/27/2019 12:00:00 AM EDT ORAL complete d MEDENT ([facility]) Isosorbide Dinitrate 30 MG Oral Tablet Isosorbide Dinitrate 11/27/2019 12:00:00 AM EDT ORAL active [facility] ([facility]) Ticagrelor 90 MG Oral Tablet ticagrelor (BRILINTA) tab let 90 mg ticagrelor (BRILINTA) tablet 90 mg 11/26/2019 11:00:00 AM EDT 90 mg Oral active 90 mg, Oral, 2 times daily, First dose on Sun11/26/19 at 1100 [facility] Medication administered onsite 10 ML Atropine Sulfate 0.1 MG/ML Prefill ed Syringe atropine sulfate injection 0.5 mg atropine sulfate injection 0.5 mg 11/26/2019 08:48:10 AM EDT 0.5 mg active 0.5 mg, Intrave nous Push, Every 5 min PRN, other, As needed, for heart rate less than 60 BPM and the patient is hemodynamically unstable and/or SBP is less than 90mmHg, Starting Sun11/26/19 at 0848, For 1 day, PACU (only)
Not to exceed a total of 3 mg or 0.04 mg/kg. Max of 6 doses
[facility] Medication administered onsite pantoprazole 40 MG Delayed Release Oral Tablet pantoprazole (PROTONIX) 40 MG tablet pantoprazole (PROTONIX) 40 MG tablet 11/26/2019 12:00:00 AM EDT 40 mg Oral active Take 1 tablet (40 mg total) by mouth daily [facility] Magnesium Oxide 400 MG Oral Tablet magnesium oxide (MA G-OX) 400 MG tablet magnesium oxide (MAG-OX) 400 MG tablet 11/26/2019 12:00:00 AM EDT 4 00 mg Oral active Take 1 tablet (400 mg tot al) by mouth 2 (two) times a day [facility] gabapentin 800 MG Oral Tablet gabapentin (NEURONTIN) t ablet 800 mg gabapentin (NEURONTIN) tablet 800 mg 11/25/2019 09:00:00 PM EDT 800 mg Oral active 800 mg, Oral, Nightly, First dose on Sun11/25/19 at 210 0 [facility] Medication administered onsite Insulin Glargine 100 UNT/ML Injectable S olution [Lantus] insulin glargine (LANTUS) injection 10 Units insulin glargine (LANTUS) injection 10 Units 11/25/2019 09:00:00 PM EDT 10 U Subcutaneous active 10 Units, Subcutaneous, Nightly (Lantus), First dose on Sun11/25/19 at 2100
Basal Insulin (Lantus) Adjustments based on AM Blood GlucoseBlood GlucoseAdjustmentLess than 70 mg/dl Nursing to initiate hypoglycemia [id number] to 100 mg/dl Pharmacy to decrease total daily d ose by 20%101 to 200 mg/dl No Change
[facility] Medication administered onsite Insulin Lispro 100 UNT/ML Injectable Kasie ution insulin lispro (HumaLOG) injection 1-6 Units insulin lispro (HumaLOG) injection 1-6 Units 0 05:00:00 PM EDT Subcutaneous active 1-6 Units, Subcutaneous, MEALSS, First dose on Sun11/25/19 at 1700
Frail 3 units Nutritional and Correction Insulin ScaleBlood Glucose (mg/dl) <70 start hypoglycemiaprotocolGlucose Eats >=50% Eats <50%Eats Nothing (mg/dl) of meal of mealor [id number] units 1 units 0 [id number]- 1703 units 2 units 0 -1302 units 2 units 1 [id number] 2704 units 3 units 1 -9001 units 3 units 2 onmun130- 3705 units 4 units 2 -2671 units 4 units 3 units>420 call MD6 units 5 units 3 unitsTest glucose within 30 minutes of insulin administration.Administer insulin within 15 minutes (before or after) of the patient starting to eat.For patients that are NPO, use theNPO (correction) scale to cover POC glucose at 08:00, 12:00, 17:00.
[facility] Medication administered onsite pantoprazole 4 MG/ML Injectable Solution pantoprazole (PROTONIX) injection 40 mg pantoprazole (PROTONIX) injection 40 mg 11/25/2019 09:00:00 AM EDT 40 mg Intravenous active Gastrointestinal Hemorrhage 40 mg, Intravenous, 2 times daily, Indications: Gastrointestinal Hemorrhage, First dose on Sun11/25/19 at 09
For IV Push - Dilute with 10 mL of 0.9% NaCl and push over 2 minutes.
[facility] Gastrointestinal Hemorrhage Medication administered onsite duloxetine 60 MG Delayed Release Oral Ca psule DULoxetine (CYMBALTA) DR capsule 60 mg DULoxetine (CYMBALTA) DR capsule 60 mg 11/25/2019 09:00:00 AM EDT 60 mg Oral active 60 mg, Oral, Daily, First dose on Sun11/25/19 at 0900 [facility] Medication administered onsite atorvastatin 80 MG Oral Tablet atorvastatin (LIPITOR) tablet 80 mg atorvastatin (LIPITOR) tablet 80 mg 11/25/2019 09:00:00 AM EDT 80 mg Oral active 80 mg, Oral, Daily, First dose on Sun11/25/19 at 0900 [facility] Medication administered onsite carvedilol 12.5 MG Oral Tablet carvedilol (COREG) tabl et 12.5 mg carvedilol (COREG) tablet 12.5 mg 11/25/2019 09:00:00 AM EDT 12.5 mg Oral active 12.5 mg, Oral, 2 times daily, First dose on Sun11/25/19 at 0900 [facility] Medication administered onsite normal saline flush 0.9 % injection 3 mL [id number] 11/25/2019 07:00:00 AM EDT 3 mL Intravenous active 3 mL , Intravenous, Every 8 hours (scheduled), First dose on Sun11/25/19 at 0700
flush per protocol, D/C Main IV fluid if appropriate
[facility] Medication administered onsite ondansetron (ZOFRAN) injection 4 mg [id number] 11/25/2019 05:53:0 3 AM EDT 4 mg Intravenous active 4 mg, In travenous, Every 4 hours PRN, nausea, vomiting, Starting Sun11/25/19 at 0553 [facility] Medication administered onsite Acetaminophen 325 MG Oral Tablet acetaminophen (TYLENO L) 325 MG tablet 650 mg acetaminophen (TYLENOL) 325 MG tablet 650 mg 11/25/2019 05:53:01 AM EDT 650 mg Oral active 650 mg, Or al, Every 4 hours PRN, mild pain (1-3), headaches, Starting Sun11/25/19 at 0553
"Maximum dose of acetaminophen is 4,000 mg from all sources in 24 hours."
[facility] Medication administered onsite magnesium sulfate in dextrose 5 % infusion (premix) 8 mEq 2711/15/2019 01:45:00 PM EDT 8 meq Intravenous completed 8 mEq, Intravenous, Administer over 60 Minutes, Once, 11/15/19 at 1345, For 1 dose
each 8 mEq equivalent to 1 gm
[facility] Medication administered onsite magnesium sulfate in dextrose 5 % infusion (premix) 8 mEq 2711/15/2019 08:00:00 AM EDT 8 meq Intravenous completed 8 mEq, Intravenous, Administer over 60 Minutes, Every 1 hour, First dose on 11/15/19 at 0800, For 2 doses
each 8 mEq equivalent to 1 gm
[facility] Medication administered onsite potassium chloride (K-DUR) dissolvable tablet 20 mEq [id number] 11/15/2019 07:45:00 AM EDT 20 meq Oral completed 20 mEq, Oral, Once, 11/15/19 at 0745, For 1 dose
May be dissolved in water for patients with a G-Tube or unable to swallow. If concern for clogging G-Tube, may contact Pharmacy to switch formulation to a powder packet.
[facility] Medication administered onsite insulin detemir 100 UNT/ML Injectable So lution Insulin Detemir 100 UNIT/ML Subcutaneous Solution (LEVEMIR) Insulin Detemir 100 UNIT/ML Subcutaneous Solution (LEVEMIR) 11/15/2019 12:00:00 AM EDT 25 U Subcutaneous active Inject 25 Units into the skin nightly [facility] atorvastatin 40 MG Oral Tablet atorvastatin (LIPITOR) tablet 80 mg atorvastatin (LIPITOR) tablet 80 mg 11/14/2019 09:00:00 PM EDT 80 mg Oral active 80 mg, Oral, Every evening, First dose on Sun11/14/19 at 2100, For 30 days [facility] Medication administered onsite 12 HR ranolazine 500 MG Extended Release Oral Tablet ranolazine (RANEXA) 12 hr tablet 500 mg ranolazine (RANEXA) 12 hr tablet 500 mg 11/14/2019 09: 00:00 PM EDT 500 mg Oral active 500 mg, Oral, 2 Times Daily, First dose on Sun11/14/19 at 2100, For 30 days
Do not crush or chew
[facility] Medication administered onsite Ticagrelor 90 MG Oral Tablet ticagrelor (BRILINTA) tab let 90 mg ticagrelor (BRILINTA) tablet 90 mg 11/14/2019 09:00:00 PM EDT 90 mg Oral active 90 mg, Oral, 2 Times Daily, First dose on Sun11/14/19 at 2100, For 30 days [facility] Medication administered onsite insulin lispro (HumaLOG) injection MEDIU M DOSE EATING INSULIN patients 1-16 Units [id number] 11/14/2019 06:00:00 PM EDT Subcutaneous active 1- 16 Units, Subcutaneous, Three Times Daily-With Meals, First dose on Sun11/14/19 at 1800, For 30 days
Nursing MUST open the 'SQ Insulin Dosing Charts' Sidebar Report, or, the Patient Summary or Summary Report within the ED.
[facility] Medication administered onsite Aspirin 81 MG Chewable Tablet aspirin chewable tablet 81 mg aspirin chewable tablet 81 mg 11/14/2019 01:45:00 PM EDT 81 mg Oral activ e 81 mg, Oral, Daily Standard, First dose on Sun11/14/19 at 1345, For 30 days
Chew tablet before swallowing.
[facility] Medication administered onsite gabapentin 400 MG Oral Capsule gabapentin (NEURONTIN) capsule 400 mg gabapentin (NEURONTIN) capsule 400 mg 11/14/2019 09:00:00 AM EDT 400 mg Oral active 400 mg, Oral, 2 Times Daily, First dose on Sun11/14/19 at 0900, For 30 days [facility] Medication administered onsite duloxetine 60 MG Delayed Release Oral Ca psule DULoxetine (CYMBALTA) DR capsule 60 mg DULoxetine (CYMBALTA) DR capsule 60 mg 11/14/2019 09:00:00 AM EDT 60 mg Oral active 60 mg, Oral, D aily Standard, First dose on Sun11/14/19 at 0900, For 30 days
Do not crush or chew
[facility] Medication administered onsite 24 HR Isosorbide Mononitrate 30 MG Exten ded Release Oral Tablet isosorbide mononitrate (IMDUR) 24 hr tablet 30 mg isosorbide mononitrate (IMDUR) 24 hr tablet 30 mg 11/14/2019 09:00:00 AM EDT 30 mg Oral activ e 30 mg, Oral, Daily Standard, First dose on Sun11/14/19 at 0900, For 30 days
DO NOT CRUSH/CHEW
[facility] Medication administered onsite carvedilol 6.25 MG Oral Tablet carvedilol (COREG) tabl et 12.5 mg carvedilol (COREG) tablet 12.5 mg 11/14/2019 09:00:00 AM EDT 12.5 mg Oral active 12.5 mg, Oral, 2 Times Daily, First dose on Sun11/14/19 at 0900, For 30 days
Check vital signs before administering
[facility] Medication administered onsite NaCl infusion 0.9 % [id number] 11/14/2019 08:00:00 AM EDT Intravenous active at 75 mL/hr, Intrave nous, Continuous, Starting Sun11/14/19 at 0800, For 30 days [facility] Medication administered onsite 4 ML Labetalol hydrochloride 5 MG/ML Car tridge labetalol (TRANDATE) injection 10 mg labetalol (TRANDATE) injection 10 mg 11/14/2019 07:50:27 AM EDT 10 mg Intravenous active 10 mg, Intrav enous, Every 4 hours PRN, High Blood Pressure, SBP>160, Starting Sun11/14/19 at 0750, For 167 hours [facility] Medication administered onsite Hydralazine Hydrochloride 20 MG/ML Injec table Solution hydrALAZINE (APRESOLINE) injection 10 mg hydrALAZINE (APRESOLINE) injection 10 mg 11/14/2019 07 :46:49 AM EDT 10 mg Intravenous active 10 m g, Intravenous, Every 6 hours PRN, Other, SBP >160, Starting Sun11/14/19 at 0746, For 30 days
Dilute in 25-50 ml normal saline. Administer over 30 minutes.
[facility] Medication administered onsite dextrose 50 % IV solution 25 mL [id number] 11/14/2019 04:46:41 AM E DT 25 mL Intravenous active 25 mL, Intrav enous, PRN, Other, blood glucose <55, Starting Sun11/14/19 at 0446, For 30 days
Not for midline administration.
[facility] Medication administered onsite Glucagon 1 MG Injection glucagon (human recombinant) ( GLUCAGEN) injection 1 mg glucagon (human recombinant) (GLUCAGEN) injection 1 mg 11/14/2019 04:46:41 AM EDT 1 mg Intramuscular active 1 mg, Intramuscular, PRN, for glucose <55 without IV access, Starting Sun11/14/19 at 0446, For 30 days [facility] Medication administered onsite Glucose 0.417 MG/MG Oral Gel glucose (GLUTOSE) 40 % or al gel 15 g glucose (GLUTOSE) 40 % oral gel 15 g 11/14/2019 04:46:41 AM EDT 15 g Oral active 15 g, Oral, PRN, Low blood s ugar, for gluose 55-69 mg/dl and able to take PO, Starting Sun11/14/19 at 0446, For 30 days [facility] Medication administered onsite Nicardipine hydrochloride 0.2 MG/ML Inje ctable Solution niCARdipine (CARDENE) 40 mg in sodium chloride 0.9 % 200 mL infusion (0.2 mg/mL) niCARdipine (CARDENE) 40 mg in sodium chloride 0.9 % 200 mL infusion (0.2 mg/mL) 11/14/2019 04:15:00 AM EDT Intravenous aborted 5-15 mg/hr (25-75 mL/hr), Intravenous, at 25-75 mL/hr, Continuous, Starting Sun11/14/19 at 0415, For 2 days
Goal SBP <140
[facility] Medication administered onsite Nicardipine hydrochloride 0.2 MG/ML Inje ctable Solution niCARdipine (CARDENE) 40 mg in sodium chloride 0.9 % 200 mL infusion (0.2 mg/mL) niCARdipine (CARDENE) 40 mg in sodium chloride 0.9 % 200 mL infusion (0.2 mg/mL) 11/14/2019 01:00:00 AM EDT Intravenous completed 5- 15 mg/hr (25-75 mL/hr), Intravenous, at 25-75 mL/hr, Once, Sun11/14/19 at 0100, For 1 dose
Goal SBP <140
[facility] Medication administered onsite Acetaminophen 325 MG Oral Tablet acetaminophen (TYLENO L) tablet 650 mg acetaminophen (TYLENOL) tablet 650 mg 11/14/2019 12:45:00 AM EDT 65 0 mg Oral completed 650 mg, Oral, O nce, Sun11/14/19 at 0045, For 1 dose
Maximum daily dose of acetaminophen from all sources 75 mg/kg/day
[facility] Medication administered onsite 4 ML Labetalol hydrochloride 5 MG/ML Car tridge labetalol (TRANDATE) injection 10 mg labetalol (TRANDATE) injection 10 mg 11/14/2019 12:00:00 AM EDT 10 mg Intravenous completed 10 mg, Intrav enous, Once, Sun11/14/19 at 0000, For 1 dose [facility] Medication administered onsite Nitroglycerin 0.4 MG Sublingual Tablet Nitroglycerin 0 12:00:00 AM EDT SUBLINGUAL active MEDEN T ([facility]) trandolapril 1 MG Oral Tablet Trandolapril 10/29/2019 12:00:00 AM EDT ORAL active [facility]ENT ([facility]) Ticagrelor 90 MG Oral Tablet [Brilinta] Brilinta 10/29/2019 12:00:0 0 AM EDT ORAL active [facility] ([facility]) 12 HR ranolazine 500 MG Extended Release Oral Tablet [Ranexa ] Ranexa 10/28/2019 12:00:00 AM EDT ORAL active M EDENT ([facility]) Metformin hydrochloride 1000 MG Oral Tab let metFORMIN (GLUCOPHAGE) 1000 MG tablet metFORMIN (GLUCOPHAGE) 1000 MG tablet 10/15/2019 12:00:00 AM EDT 1000 mg Oral active Take 1 tab let (1,000 mg total) by mouth daily with breakfast [facility] Metformin hydrochloride 1000 MG Oral Tab let metFORMIN (GLUCOPHAGE) 1000 MG tablet metFORMIN (GLUCOPHAGE) 1000 MG tablet 10/15/2019 12:00:00 AM EDT 1500 mg Oral active Take 1.5 tablets (1,500 mg total) by mouth every evening [facility] Insulin Glargine 100 UNT/ML Injectable S olution [Lantus] insulin glargine (LANTUS) injection 10 Units insulin glargine (LANTUS) injection 10 Units 10/14/2019 09:00:00 PM EDT 10 U Subcutaneous active 10 Units, Subcutaneous, Nightly (Lantus), First dose on Sun10/14/19 at 2100
Basal Insulin (Lantus) Adjustments based on AM Blood GlucoseBlood GlucoseAdjustmentLess than 70 mg/dl Nursing to initiate hypoglycemia to 100 mg/dl Pharmacy to decrease total daily d ose by 20%101 to 200 mg/dl No Change
[facility] Medication administered onsite carvedilol 12.5 MG Oral Tablet carvedilol (COREG) tabl et 12.5 mg carvedilol (COREG) tablet 12.5 mg 10/14/2019 09:00:00 AM EDT 12.5 mg Oral active 12.5 mg, Oral, 2 times daily, First dose on Sun10/14/19 at 0900 [facility] Medication administered onsite clopidogrel 75 MG Oral Tablet clopidogrel (PLAVIX) tab let 75 mg clopidogrel (PLAVIX) tablet 75 mg 10/14/2019 09:00:00 AM EDT 75 mg Oral active 75 mg, Oral, Daily, First dose on Sun10/14/19 at 0900, Post-op
May begin the same day
[facility] Medication administered onsite normal saline flush 0.9 % injection 3 mL [id number] 10/13/2019 10:00:00 PM EDT 3 mL Intravenous active 3 mL , Intravenous, PROTOCOL, First dose on Sun10/13/19 at 2200, Pre-op
flush per protocol, D/C Main IV fluid if appropriate
[facility] Medication administered onsite Aspirin 81 MG Chewable Tablet aspirin chewable tablet 81 mg aspirin chewable tablet 81 mg 10/13/2019 07:00:00 PM EDT 81 mg Oral activ e 81 mg, Oral, Daily, First dose on Sun10/13/19 at 1900, Post-op
D/C any prior aspirin order
[facility] Medication administered onsite sodium chloride 0.9% (NS) infusion [id number] 10/13/2019 07:00:00 P M EDT Intravenous completed at 100 mL/hr, Intravenous, Continuous, Starting Sun10/13/19 at 1900, For 6 hours, Post-op [facility] Medication administered onsite Acetaminophen 325 MG Oral Tablet acetaminophen (TYLENO L) 325 MG tablet 650 mg acetaminophen (TYLENOL) 325 MG tablet 650 mg 10/13/2019 06:26:42 PM EDT 650 mg Oral active 650 mg, Or al, Every 4 hours PRN, headaches, and non cardiac pain, Starting Sun10/13/19 at 1826, Post-op
"Maximum dose of acetaminophen is 4,000 mg from all sources in 24 hours."
[facility] Medication administered onsite Nitroglycerin 0.4 MG Sublingual Tablet n itroglycerin (NITROSTAT) SL tablet 0.4 mg nitroglycerin (NITROSTAT) SL tablet 0.4 mg 10/13/2019 06:26:42 P M EDT 0.4 mg Sublingual active 0.4 mg, S ublingual, Every 5 min PRN, chest pain, Starting Sun10/13/19 at 1826, Post-op
May administer every 5 minutes for 3 doses and call cardio lab MD.
[facility] Medication administered onsite 10 ML Atropine Sulfate 0.1 MG/ML Prefill ed Syringe atropine sulfate injection 0.5 mg atropine sulfate injection 0.5 mg 10/13/2019 06:26:42 PM EDT 0.5 mg active 0.5 mg, Intrave nous Push, Every 5 min PRN, other, As needed, for heart rate less than 60 BPM and the patient is hemodynamically unstable and/or SBP is less than 90mmHg, Starting Sun10/13/19 at 1826, For 1 day, Post-op
Not to exceed a total of 3 mg or 0.04 mg/kg. Max of 6 doses
[facility] Medication administered onsite clopidogrel 75 MG Oral Tablet clopidogrel (PLAVIX) tab let clopidogrel (PLAVIX) tablet 10/13/2019 06:09:05 PM EDT active As needed, Starting Sun10/13/19 at 1809, Intra-Procedure [facility] Medication administered onsite iopamidol (ISOVUE-370) 76 % [id number] 10/13/2019 06:07:52 PM EDT active As needed, Starting Sun10/13/19 at 1807, Intra-Procedu re [facility] Medication administered onsite normal saline flush 0.9 % injection 3 mL [id number] 10/13/2019 05:00:00 PM EDT 3 mL Intravenous active 3 mL , Intravenous, Every 8 hours (scheduled), First dose on Sun10/13/19 at 1700, Pre-op
Rapid push positive pressure flushing shall be performed with a 10 cc normal saline syringe to check the PATENCY of a PIV site prior to any infusion therapy initiation unless resistance is met.
[facility] Medication administered onsite normal saline flush 0.9 % injection 3 mL [id number] 10/13/2019 05:00:00 PM EDT 3 mL Intravenous active 3 mL , Intravenous, Every 8 hours (scheduled), First dose on Sun10/13/19 at 1700, Pre-op
Rapid push positive pressure flushing shall be performed with a 10 cc normal saline syringe to check the PATENCY of a PIV site prior to any infusion therapy initiation unless resistance is met.
[facility] Medication administered onsite 1 ML heparin sodium, porcine 1000 UNT/ML Injection hep radha (porcine) injection heparin (porcine) injection 10/13/2019 04:42:19 PM EDT active As needed, Starting Sun10/13/19 at 1642, Intra-Procedure [facility] Medication administered onsite lidocaine 1 % injection [id number] 10/13/2019 04:35:53 PM EDT active As needed, Starting Sun10/13/19 at 1635, Intra-Procedure [facility] Medication administered onsite 2 ML Midazolam 1 MG/ML Injection midazolam (VERSED) in jection midazolam (VERSED) injection 10/13/2019 04:29:54 PM EDT active As needed, Starting Sun10/13/19 at 1629, Intra-Procedure [facility] Medication administered onsite fentaNYL Citrate (PF) (SUBLIMAZE) injection [id number] 10/13/2019 04:29:04 PM EDT active As neede d, Starting Sun10/13/19 at 1629, Intra-Procedure [facility] Medication administered onsite 10 ML Atropine Sulfate 0.1 MG/ML Prefill ed Syringe atropine sulfate injection 0.5 mg atropine sulfate injection 0.5 mg 10/13/2019 03:55:38 PM EDT 0.5 mg active 0.5 mg, Intrave nous Push, Every 5 min PRN, other, As needed, for heart rate less than 60 BPM and the patient is hemodynamically unstable and/or SBP is less than 90mmHg, Starting Sun10/13/19 at 1555, For 1 day, Pre-op
Not to exceed a total of 3 mg or 0.04 mg/kg.Max of 6 doses
[facility] Medication administered onsite gabapentin 800 MG Oral Tablet gabapentin (NEURONTIN) t ablet 800 mg gabapentin (NEURONTIN) tablet 800 mg 10/12/2019 09:00:00 PM EDT 800 mg Oral active 800 mg, Oral, Nightly, First dose on 10/12/19 at 21 00 [facility] Medication administered onsite Insulin Glargine 100 UNT/ML Injectable S olution [Lantus] insulin glargine (LANTUS) injection 12 Units insulin glargine (LANTUS) injection 12 Units 10/12/2019 09:00:00 PM EDT 12 U Subcutaneous aborted 12 Units, Subcutaneous, Nightly (Lantus), First dose on 10/12/19 at 2100
Basal Insulin (Lantus) Adjustments based on AM Blood GlucoseBlood GlucoseAdjustmentLess than 70 mg/dl Nursing to initiate hypoglycemia [id number] to 100 mg/dl Pharmacy to decrease total daily d ose by 20%101 to 200 mg/dl No Change
[facility] Medication administered onsite atorvastatin 80 MG Oral Tablet atorvastatin (LIPITOR) tablet 80 mg atorvastatin (LIPITOR) tablet 80 mg 10/12/2019 09:00:00 AM EDT 80 mg Oral active 80 mg, Oral, Daily, First dose on 10/12/19 at 0900 [facility] Medication administered onsite Aspirin 81 MG Delayed Release Oral Tablet aspirin EC t ablet 81 mg aspirin EC tablet 81 mg 10/12/2019 09:00:00 AM EDT 81 mg Oral abort ed 81 mg, Oral, Daily, First dose on 10/12/19 at 0900 [facility] Medication administered onsite clopidogrel 75 MG Oral Tablet clopidogrel (PLAVIX) tab let 75 mg clopidogrel (PLAVIX) tablet 75 mg 10/12/2019 09:00:00 AM EDT 75 mg Oral aborted 75 mg, Oral, Daily, First dose on 10/12/19 at 0900 [facility] Medication administered onsite duloxetine 30 MG Delayed Release Oral Ca psule DULoxetine (CYMBALTA) DR capsule 60 mg DULoxetine (CYMBALTA) DR capsule 60 mg 10/12/2019 09:00:00 AM EDT 60 mg Oral active 60 mg, Oral, Daily, First dose on 10/12/19 at 0900 [facility] Medication administered onsite Spironolactone 25 MG Oral Tablet spironolactone (ALDAC TONE) tablet 12.5 mg spironolactone (ALDACTONE) tablet 12.5 mg 10/12/2019 09:00:00 AM EDT 12.5 mg Oral aborted 12.5 mg, Oral, Daily, First dose on 10/12/19 at 0900
For administration and preparation considerations, refer to Hazardous Drugs in the Workplace Policy on Intranet.
[facility] Medication administered onsite trandolapril 1 MG Oral Tablet trandolapril (MAVIK) tab let 0.5 mg trandolapril (MAVIK) tablet 0.5 mg 10/12/2019 09:00:00 AM EDT 0.5 mg Oral aborted 0.5 mg, Oral, Daily, First dose on 10/12/19 at 0900 [facility] Medication administered onsite 24 HR Isosorbide Mononitrate 30 MG Exten ded Release Oral Tablet isosorbide mononitrate (IMDUR) 24 hr tablet 30 mg isosorbide mononitrate (IMDUR) 24 hr tablet 30 mg 10/12/2019 09:00:00 AM EDT 30 mg Oral abort ed 30 mg, Oral, Daily, First dose on 10/12/19 at 0900 [facility] Medication administered onsite pantoprazole 40 MG Delayed Release Oral Tablet pantoprazole (PROTONIX) EC tablet 40 mg pantoprazole (PROTONIX) EC tablet 40 mg 10/12/2019 09:00:00 AM E DT 40 mg Oral active Gastroesophageal Reflux Diseas e 40 mg, Oral, Daily, Indications: Gastroesophageal Reflux Disease, First dose on 10/12/19 at 0900 [facility] Gastroesophageal Reflux Disease Medication administered onsite 12 HR ranolazine 500 MG Extended Release Oral Tablet ranolazine (RANEXA) 12 hr tablet 500 mg ranolazine (RANEXA) 12 hr tablet 500 mg 10/12/2019 09: 00:00 AM EDT 500 mg Oral active 500 mg, Oral, 2 times daily, First dose on 10/12/19 at 0900 [facility] Medication administered onsite Insulin Lispro 100 UNT/ML Injectable Kasie ution insulin lispro (HumaLOG) injection 1-8 Units insulin lispro (HumaLOG) injection 1-8 Units 0 08:00:00 AM EDT Subcutaneous active 1-8 Units, Subcutaneous, MEALSS, First dose on 10/12/19 at 0800
4 units Nutritional and Correction Insulin ScaleBlood Glucose (mg/dl) <70 start hypoglycemiaprotocolGlucoseEats >=50% Eats <50%Eats Nothing (mg/dl) of meal of mealor NPO70- 1203 units 1 units 0 -7101 units 2 units 0 [id number]- 2205 units 3 units 1 [id number] units 3 units 1 uchbs034- 3206 units 4 units 2 [id number] units 5 units 3 -1502 units 5 units 3 units>420 call MD8 units 6 units 4 unitsTest glucose within 30 minutes of insulin administration.Administer insulin within 15 minutes (before or after) of the patient starting to eat.For patients that are NPO, use theNPO (correction) scale to cover POC glucose at 08:00, 12:00, 17:00.
[facility] Medication administered onsite normal saline flush 0.9 % injection 3 mL [id number] 10/12/2019 06:00:00 AM EDT 3 mL Intravenous active 3 mL , Intravenous, Every 8 hours (scheduled), First dose on 10/12/19 at 0600
Rapid push positive pressure flushing shall be performed with a 10 cc normal saline syringe to check the PATENCY of a PIV site prior to any infusion therapy initiation unless resistance is met.
[facility] Medication administered onsite carvedilol 12.5 MG Oral Tablet carvedilol (COREG) tabl et 12.5 mg carvedilol (COREG) tablet 12.5 mg 10/12/2019 03:20:00 AM EDT 12.5 mg Oral aborted 12.5 mg, Oral, 2 times daily, First dose on Sun 0 at 0320 [facility] Medication administered onsite ondansetron (ZOFRAN) injection 4 mg [id number] 10/12/2019 03:04:1 0 AM EDT 4 mg Intravenous active 4 mg, In travenous, Every 4 hours PRN, nausea, vomiting, Starting 10/12/19 at 0304 [facility] Medication administered onsite 2 ML Metoclopramide 5 MG/ML Prefilled Sy ringe metoclopramide (REGLAN) injection 10 mg metoclopramide (REGLAN) injection 10 mg 10/12/2019 03:04:10 AM E DT 10 mg Intravenous active 10 mg, I ntravenous, Every 6 hours PRN, for Nausea/Vomiting not relieved by zofran, Starting 10/12/19 at 0304 [facility] Medication administered onsite 500 ML heparin sodium, porcine 50 UNT/ML Injection heparin infusion 25,000 units in 500 mL 0.45% NaCl heparin infusion 25,000 units in 500 mL 0.45% NaCl 10/12/2019 01:15:00 AM EDT 13 U/kg/h Intravenous aborted 13 Units/kg/hr 61.2 kg (15.912 mL/hr, rounded to 15.9 mL/hr), Intravenous, at 15.9 mL/hr, Continuous, Starting 10/12/19 at 0115
For Cardiac/BridgeaPTT (seconds) Heparin Dose (weight based)< 34 Bolus: 60 units/kg IV (Maximum bolus: 5,000 units) and increase infusion 3 units/kg/hr IV34 - 50 Bolus: 30 units/kg IV (Maximum bolus: 5,000 units) and increase infusion 2 units/kg/hr IV50.1 - 58 No bolus. Increase infusion 1 unit/kg/hr IV58.1 - 87 Therapeutic, No Qabuwf75.1 - 97 Decrease infusion 1 unit/kg/hr IV 97.1 - 110Hold infusion for 30 minutes & decrease infusion 2 units/kg/hr IV> 110 Call MD if patient is bleeding. Hold infusion for 60 minutes & decrease infusion 3 units/kg/hr IVInitial heparin IV infusion rate:Do not exceed 1000 units/hr or 12 units/kg/hr initially (whichever is less)Infuse this medication only through single port tubing ([employer] Infusion Set ref [id number]). Medication and tubing is to be discarded if infusion off for 4 hours.
[facility] Medication administered onsite 1 ML heparin sodium, porcine 1000 UNT/ML Injection heparin (porcine) injection 100-5,000 Units heparin (porcine) injection 100-5,000 Units 10/12/2019 12:57:37 AM EDT Intravenous aborted 100- 5,000 Units, Intravenous, As needed, other, Starting 10/12/19 at 0057
Round dose to nearest 100 unitsaPTT:< 34 Bolus: 60 units/kg IV (Maximum bolus: 5,000 units) 34 - 50 Bolus: 30 units/kg IV (Maximum bolus: 5,000 units)
[facility] Medication administered onsite 24 HR Isosorbide Mononitrate 30 MG Exten ded Release Oral Tablet isosorbide mononitrate (IMDUR) 30 MG 24 hr tablet isosorbide mononitrate (IMDUR) 30 MG 24 hr tablet 10/10/2019 12:00:00 AM EDT 30 mg Oral aborted Take 1 tablet (30 mg total) by mouth daily [facility] 12 HR ranolazine 500 MG Extended Release Oral Tablet ranolazine (RANEXA) 500 MG 12 hr tablet ranolazine (RANEXA) 500 MG 12 hr tablet 10/09/2019 12:00:00 AM EDT 500 mg Oral active Take 1 tablet (5 00 mg total) by mouth 2 (two) times a day [facility] Insulin Glargine 100 UNT/ML Injectable S olution [Lantus] insulin glargine (LANTUS) injection 10 Units insulin glargine (LANTUS) injection 10 Units 10/07/2019 09:00:00 PM EDT 10 U Subcutaneous active 10 Units, Subcutaneous, Nightly (Lantus), First dose on Sun10/07/19 at 2100
Basal Insulin (Lantus) Adjustments based on AM Blood GlucoseBlood GlucoseAdjustmentLess than 70 mg/dl Nursing to initiate hypoglycemia [id number] to 100 mg/dl Pharmacy to decrease total daily d ose by 20%101 to 200 mg/dl No Change
[facility] Medication administered onsite gabapentin 600 MG Oral Tablet gabapentin (NEURONTIN) t ablet 600 mg gabapentin (NEURONTIN) tablet 600 mg 10/07/2019 09:00:00 PM EDT 600 mg Oral active 600 mg, Oral, Nightly, First dose on Sun10/07/19 at 21 00 [facility] Medication administered onsite 24 HR Isosorbide Mononitrate 30 MG Exten ded Release Oral Tablet isosorbide mononitrate (IMDUR) 24 hr tablet 30 mg isosorbide mononitrate (IMDUR) 24 hr tablet 30 mg 10/07/2019 12:00:00 PM EDT 30 mg Oral activ e 30 mg, Oral, Daily, First dose on Sun10/07/19 at 1200 [facility] Medication administered onsite 12 HR ranolazine 500 MG Extended Release Oral Tablet ranolazine (RANEXA) 12 hr tablet 500 mg ranolazine (RANEXA) 12 hr tablet 500 mg 10/07/2019 12: 00:00 PM EDT 500 mg Oral active 500 mg, Oral, 2 times daily, First dose on Sun10/07/19 at 1200 [facility] Medication administered onsite clopidogrel 75 MG Oral Tablet clopidogrel (PLAVIX) tab let 75 mg clopidogrel (PLAVIX) tablet 75 mg 10/07/2019 09:00:00 AM EDT 75 mg Oral active 75 mg, Oral, Daily, First dose on Sun10/07/19 at 0900 [facility] Medication administered onsite Insulin Lispro 100 UNT/ML Injectable Kasie ution insulin lispro (HumaLOG) injection 1-8 Units insulin lispro (HumaLOG) injection 1-8 Units 0 08:00:00 AM EDT Subcutaneous active 1-8 Units, Subcutaneous, MEALSS, First dose on Sun10/07/19 at 0800
4 units Nutritional and Correction Insulin ScaleBlood Glucose (mg/dl) <70 start hypoglycemiaprotocolGlucoseEats >=50% Eats <50%Eats Nothing (mg/dl) of meal of mealor NPO70- 1203 units 1 units 0 [id number] units 2 units 0 [id number]- 2205 units 3 units 1 [id number] units 3 units 1 - 3206 units 4 units 2 [id number] units 5 units 3 [id number] units 5 units 3 units>420 call MD8 units 6 units 4 unitsTest glucose within 30 minutes of insulin administration.Administer insulin within 15 minutes (before or after) of the patient starting to eat.For patients that are NPO, use theNPO (correction) scale to cover POC glucose at 08:00, 12:00, 17:00.
[facility] Medication administered onsite Nitroglycerin 0.02 MG/MG Topical Ointmen t nitroglycerin (NITROSTAT) 2 % ointment 1 inch nitroglycerin (NITROSTAT) 2 % ointment 1 inch 10/07/19 12:00:00 AM EDT 1 g Topical aborted 1 inch ( 1 g), Topical, Every 6 hours (scheduled), First dose on Sun10/07/19 at 0000
1 inch = 1 gramHold for SBP<110
[facility] Medication administered onsite normal saline flush 0.9 % injection 3 mL [id number] 10/06/2019 10:00:00 PM EDT 3 mL Intravenous active 3 mL , Intravenous, Every 8 hours (scheduled), First dose on Sun10/06/19 at 2200
flush per protocol, D/C Main IV fluid if appropriate
[facility] Medication administered onsite 50 ML Magnesium Sulfate 40 MG/ML Injecti on magnesium sulfate 2 g in sterile diluent magnesium sulfate 2 g in sterile diluent 10/06/2019 10:00:00 PM EDT 2 g Intravenous completed 2 g, Int ravenous, at 50 mL/hr, Once, Sun10/06/19 at 2200, For 1 dose [facility] Medication administered onsite normal saline flush 0.9 % injection 3 mL [id number] 10/06/2019 10:00:00 PM EDT 3 mL Intravenous active 3 mL , Intravenous, Every 8 hours (scheduled), First dose on Sun10/06/19 at 2200
Rapid push positive pressure flushing shall be performed with a 10 cc normal saline syringe to check the PATENCY of a PIV site prior to any infusion therapy initiation unless resistance is met.
[facility] Medication administered onsite heparin (porcine) injection 5,000 Units [id number] 10/06/19 10:00:00 PM EDT 5000 U Subcutaneous active 5,000 Units , Subcutaneous, Every 12 hours (scheduled), First dose on Sun10/06/19 at 2200
If platelet count is less than 100,000 or hematocrit is less than 30, or if there is a 5 point decrease in hematocrit, do not give the dose and call physician/designee.
[facility] Medication administered onsite pantoprazole 40 MG Delayed Release Oral Tablet pantoprazole (PROTONIX) EC tablet 40 mg pantoprazole (PROTONIX) EC tablet 40 mg 10/06/2019 10:00:00 PM E DT 40 mg Oral active Gastroesophageal Reflux Diseas e 40 mg, Oral, Daily, Indications: Gastroesophageal Reflux Disease, First dose on Sun10/06/19 at 2200 [facility] Gastroesophageal Reflux Disease Medication administered onsite Aspirin 81 MG Delayed Release Oral Tablet aspirin EC t ablet 81 mg aspirin EC tablet 81 mg 10/06/2019 10:00:00 PM EDT 81 mg Oral activ e 81 mg, Oral, Daily, First dose on Sun10/06/19 at 2200 [facility] Medication administered onsite Spironolactone 25 MG Oral Tablet spironolactone (ALDAC TONE) tablet 25 mg spironolactone (ALDACTONE) tablet 25 mg 10/06/2019 10:00:00 PM EDT 25 mg Oral active 25 mg, Oral, Da maddy, First dose on Sun10/06/19 at 2200
For administration and preparation considerations, refer to Hazardous Drugs in the Workplace Policy on Intranet.
[facility] Medication administered onsite carvedilol 12.5 MG Oral Tablet carvedilol (COREG) tabl et 12.5 mg carvedilol (COREG) tablet 12.5 mg 10/06/2019 10:00:00 PM EDT 12.5 mg Oral active 12.5 mg, Oral, 2 times daily, First dose on Sun10/06/19 at 2200
Hold for SBP<110 HR<60
[facility] Medication administered onsite gabapentin 600 MG Oral Tablet gabapentin (NEURONTIN) t ablet 300 mg gabapentin (NEURONTIN) tablet 300 mg 10/06/2019 10:00:00 PM EDT 300 mg Oral aborted 300 mg, Oral, Nightly, First dose on Sun10/06/19 at 2200 [facility] Medication administered onsite duloxetine 60 MG Delayed Release Oral Ca psule DULoxetine (CYMBALTA) DR capsule 60 mg DULoxetine (CYMBALTA) DR capsule 60 mg 10/06/2019 10:00:00 PM EDT 60 mg Oral active 60 mg, Oral, Nightly , First dose on Sun10/06/19 at 2200 [facility] Medication administered onsite trandolapril 1 MG Oral Tablet trandolapril (MAVIK) tab let 0.5 mg trandolapril (MAVIK) tablet 0.5 mg 10/06/2019 10:00:00 PM EDT 0.5 mg Oral active 0.5 mg, Oral, Daily, First dose on Sun10/06/19 at 2200
Hold for SBP<110
[facility] Medication administered onsite atorvastatin 80 MG Oral Tablet atorvastatin (LIPITOR) tablet 80 mg atorvastatin (LIPITOR) tablet 80 mg 10/06/2019 10:00:00 PM EDT 80 mg Oral active 80 mg, Oral, Daily, First dose on Sun10/06/19 at 2200 [facility] Medication administered onsite Nitroglycerin 0.4 MG Sublingual Tablet n itroglycerin (NITROSTAT) SL tablet 0.4 mg nitroglycerin (NITROSTAT) SL tablet 0.4 mg 10/06/2019 09:39:25 P M EDT 0.4 mg Sublingual active 0.4 mg, S ublingual, Every 5 min PRN, chest pain, Starting Sun10/06/19 at 2139
May administer up to 3 doses per episode.
[facility] Medication administered onsite Acetaminophen 325 MG Oral Tablet acetaminophen (TYLENO L) 325 MG tablet 650 mg acetaminophen (TYLENOL) 325 MG tablet 650 mg 10/06/2019 07:42:38 PM EDT 650 mg Oral active 650 mg, Or al, Every 8 hours PRN, mild pain (1-3), headaches, Starting Sun10/06/19 at 1942
"Maximum dose of acetaminophen is 4,000 mg from all sources in 24 hours."
[facility] Medication administered onsite trandolapril 1 MG Oral Tablet Trandolapril 1 MG Trandolapril 1 MG 09/11/2019 12:00:00 AM EDT 0.5 {tablet} active Tr andolapril 1 MG eCW1 ([facility]) trandolapril 1 MG Oral Tablet Trandolapril 1 MG Trandolapril 1 MG 09/11/2019 12:00:00 AM EDT 0.5 {tablet} active Tr andolapril 1 MG eCW1 ([facility]) trandolapril 1 MG Oral Tablet Trandolapril 1 MG Trandolapril 1 MG 09/11/2019 12:00:00 AM EDT 0.5 {tablet} active Tr andolapril 1 MG eCW1 ([facility]) trandolapril 1 MG Oral Tablet Trandolapril 1 MG Trandolapril 1 MG 09/11/2019 12:00:00 AM EDT 0.5 {tablet} active Tr andolapril 1 MG eCW1 ([facility]) trandolapril 1 MG Oral Tablet Trandolapril 1 MG Trandolapril 1 MG 09/11/2019 12:00:00 AM EDT 0.5 {tablet} active Tr andolapril 1 MG eCW1 ([facility]) trandolapril 1 MG Oral Tablet Trandolapril 1 MG Trandolapril 1 MG 09/11/2019 12:00:00 AM EDT 0.5 {tablet} suspended Trandolapril 1 MG eCW1 ([facility]) trandolapril 1 MG Oral Tablet Trandolapril 1 MG Trandolapril 1 MG 09/11/2019 12:00:00 AM EDT 0.5 {tablet} active Tr andolapril 1 MG eCW1 ([facility]) trandolapril 1 MG Oral Tablet Trandolapril 1 MG Trandolapril 1 MG 09/11/2019 12:00:00 AM EDT 0.5 {tablet} active Tr andolapril 1 MG eCW1 ([facility]) trandolapril 1 MG Oral Tablet Trandolapril 1 MG Trandolapril 1 MG 09/11/2019 12:00:00 AM EDT 0.5 {tablet} active Tr andolapril 1 MG eCW1 ([facility]) trandolapril 1 MG Oral Tablet Trandolapril 1 MG Trandolapril 1 MG 09/11/2019 12:00:00 AM EDT 0.5 {tablet} active Tr andolapril 1 MG eCW1 ([facility]) trandolapril 1 MG Oral Tablet Trandolapril 1 MG Trandolapril 1 MG 09/11/2019 12:00:00 AM EDT 0.5 {tablet} active Tr andolapril 1 MG eCW1 ([facility]) trandolapril 1 MG Oral Tablet Trandolapril 1 MG Trandolapril 1 MG 09/11/2019 12:00:00 AM EDT 0.5 {tablet} active Tr andolapril 1 MG eCW1 ([facility]) trandolapril 1 MG Oral Tablet Trandolapril 1 MG Trandolapril 1 MG 09/11/2019 12:00:00 AM EDT 0.5 {tablet} active Tr andolapril 1 MG eCW1 ([facility]) trandolapril 1 MG Oral Tablet Trandolapril 1 MG Trandolapril 1 MG 09/11/2019 12:00:00 AM EDT 0.5 {tablet} active Tr andolapril 1 MG eCW1 ([facility]) trandolapril 1 MG Oral Tablet Trandolapril 1 MG Trandolapril 1 MG 09/11/2019 12:00:00 AM EDT 0.5 {tablet} active Tr andolapril 1 MG eCW1 ([facility]) trandolapril 1 MG Oral Tablet Trandolapril 1 MG Trandolapril 1 MG 09/11/2019 12:00:00 AM EDT 0.5 {tablet} active Tr andolapril 1 MG eCW1 ([facility]) trandolapril 1 MG Oral Tablet Trandolapril 1 MG Trandolapril 1 MG 09/11/2019 12:00:00 AM EDT 0.5 {tablet} active Tr andolapril 1 MG eCW1 ([facility]) trandolapril 1 MG Oral Tablet Trandolapril 1 MG Trandolapril 1 MG 09/11/2019 12:00:00 AM EDT 0.5 {tablet} active Tr andolapril 1 MG eCW1 ([facility]) trandolapril 1 MG Oral Tablet Trandolapril 1 MG Trandolapril 1 MG 09/11/2019 12:00:00 AM EDT 0.5 {tablet} active Tr andolapril 1 MG eCW1 ([facility]) trandolapril 1 MG Oral Tablet Trandolapril 1 MG Trandolapril 1 MG 09/11/2019 12:00:00 AM EDT active 0.5 tabl et eCW1 ([facility]) trandolapril 1 MG Oral Tablet Trandolapril 1 MG Trandolapril 1 MG 09/11/2019 12:00:00 AM EDT 0.5 {tablet} active Tr andolapril 1 MG eCW1 ([facility]) cefdinir 300 MG Oral Capsule Cefdinir 300 MG Cefdinir 300 MG 09/05/2019 12:00:00 AM EDT active as directed eCW1 ([facility]) Doxycycline Monohydrate 100 MG Oral Capsule Doxycycline Stone hydrate 100 MG 09/05/2019 12:00:00 AM EDT active 1 capsule eCW1 ([facility]) 24 HR ferrous sulfate 142 MG Extended Re lease Oral Tablet [Slow-Fe] Slow Fe 142 (45 Fe) MG Slow Fe 142 (45 Fe) MG 07/07/2019 12:00:00 AM EDT 1.0 {tabl et} active Slow Fe 142 (45 Fe) MG eCW1 ([facility]) 24 HR ferrous sulfate 142 MG Extended Re lease Oral Tablet [Slow-Fe] Slow Fe 142 (45 Fe) MG Slow Fe 142 (45 Fe) MG 07/07/2019 12:00:00 AM EDT 1.0 {tabl et} active Slow Fe 142 (45 Fe) MG eCW1 ([facility]) 24 HR ferrous sulfate 142 MG Extended Re lease Oral Tablet [Slow-Fe] Slow Fe 142 (45 Fe) MG Slow Fe 142 (45 Fe) MG 07/07/2019 12:00:00 AM EDT 1.0 {tabl et} active Slow Fe 142 (45 Fe) MG eCW1 ([facility]) 24 HR ferrous sulfate 142 MG Extended Re lease Oral Tablet [Slow-Fe] Slow Fe 142 (45 Fe) MG Slow Fe 142 (45 Fe) MG 07/07/2019 12:00:00 AM EDT active 1 tablet eCW1 ([facility]) 24 HR ferrous sulfate 142 MG Extended Re lease Oral Tablet [Slow-Fe] Slow Fe 142 (45 Fe) MG Slow Fe 142 (45 Fe) MG 07/07/2019 12:00:00 AM EDT active 1 tablet eCW1 ([facility]) 24 HR ferrous sulfate 142 MG Extended Re lease Oral Tablet [Slow-Fe] Slow Fe 142 (45 Fe) MG Slow Fe 142 (45 Fe) MG 07/07/2019 12:00:00 AM EDT 1.0 {tabl et} active Slow Fe 142 (45 Fe) MG eCW1 ([facility]) trandolapril 1 MG Oral Tablet Trandolapril 06/17/2019 12:00:00 AM EST ORAL completed MEDENT ([facility]) linezolid 600 MG Oral Tablet Linezolid 06/16/2019 12:00:00 AM EST ORAL completed MEDENT ([facility]) Ondansetron 4 MG Disintegrating Oral Tablet Ondansetron 06/16/2019 12:00:00 AM EST completed [facility] ([facility]) Ondansetron 4 MG Oral Tablet Ondansetron HCL 2019 12:00:00 AM EST active MED[facility] ([facility] linezolid 600 MG Oral Tablet Linezolid 06/06/2019 12:00:00 AM EST ORAL active [facility] ([facility] pantoprazole 40 MG Delayed Release Oral Tablet Pantopr azole Sodium 40 MG Pantoprazole Sodium 40 MG 06/01/2019 12:00:00 AM EST active 1 tablet eCW1 ([facility]) pantoprazole 40 MG Delayed Release Oral Tablet Pantopr azole Sodium 40 MG Pantoprazole Sodium 40 MG 06/01/2019 12:00:00 AM EST active 1 tablet eCW1 ([facility]) pantoprazole 40 MG Delayed Release Oral Tablet Pantopr azole Sodium 40 MG Pantoprazole Sodium 40 MG 06/01/2019 12:00:00 AM EST active 1 tablet eCW1 ([facility]) Bacillus Coagulans-Inulin - UNK 06/01/2019 12:00:00 AM EST suspended as directed eCW1 ([facility]) Bacillus Coagulans-Inulin - UNK 06/01/2019 12:00:00 AM EST active as directed eCW1 ([facility]) Bacillus Coagulans-Inulin - UNK 06/01/2019 12:00:00 AM EST active as directed eCW1 ([facility]) pantoprazole 40 MG Delayed Release Oral Tablet Pantopr azole Sodium 40 MG Pantoprazole Sodium 40 MG 06/01/2019 12:00:00 AM EST active 1 tablet eCW1 ([facility]) Bacillus Coagulans-Inulin - UNK 06/01/2019 12:00:00 AM EST active as directed eCW1 ([facility]) pantoprazole 40 MG Delayed Release Oral Tablet Pantopr azole Sodium 40 MG Pantoprazole Sodium 40 MG 06/01/2019 12:00:00 AM EST active 1 tablet eCW1 ([facility]) pantoprazole 40 MG Delayed Release Oral Tablet Pantopr azole Sodium 40 MG Pantoprazole Sodium 40 MG 06/01/2019 12:00:00 AM EST active 1 tablet eCW1 ([facility]) doxycycline hyclate 100 MG Oral Capsule Doxycycline Hy clate 100 MG Doxycycline Hyclate 100 MG 06/01/2019 12:00:00 AM EST suspende d 1 capsule eCW1 ([facility]) Cephalexin 500 MG Oral Capsule Cephalexin 500 MG 05/31/2019 12:00:00 AM EST active 1 capsule eCW1 ([facility]) Metformin hydrochloride 1000 MG Oral Tablet Metformin HCL 05/22/2019 12:00:00 AM EST ORAL active [facility] ([facility]) trandolapril 2 MG Oral Tablet Trandolapril 05/06/2019 12:00:00 AM EST ORAL completed [facility] ([facility]) 3 ML liraglutide 6 MG/ML Pen Injector [Victoza] Victoza 05/05/2019 12:00:00 AM EST active [facility] ([facility]) docosahexaenoic acid 120 MG / Eicosapentaenoic Acid 180 MG O ral Capsule Weston 3 05/05/2019 12:00:00 AM EST ORAL completed MED[facility] ([facility]) Famotidine 20 MG Oral Tablet [Pepcid] Pepcid 05/05/2019 12:00:00 AM EST ORAL active [facility] ([facility]) gabapentin 800 MG Oral Tablet Gabapentin 05/05/2019 12:00:00 AM EST ORAL active [facility] ([facility]) atorvastatin 80 MG Oral Tablet Atorvastatin Calcium 05/05/2019 1 2:00:00 AM EST ORAL active MEDENT ( [facility]) clopidogrel 75 MG Oral Tablet Clopidogrel Bisulfate 05/05/2019 1 2:00:00 AM EST ORAL completed MED[facility] ([facility]) duloxetine 60 MG Delayed Release Oral Capsule Duloxetine HCL 05/05/2019 12:00:00 AM EST ORAL active MEDENT ([facility]) clopidogrel 75 MG Oral Tablet clopidogrel (PLAVIX) 75 MG tablet clopidogrel (PLAVIX) 75 MG tablet 04/26/2019 12:00:00 AM EST 75 mg Oral active Take 1 tablet (75 mg total) by mouth daily [facility] clopidogrel 75 MG Oral Tablet clopidogrel (PLAVIX) 75 MG tablet clopidogrel (PLAVIX) 75 MG tablet 04/26/2019 12:00:00 AM EST 75 mg Oral aborted Take 1 tablet (75 mg total) by mouth daily [facility] carvedilol 25 MG Oral Tablet carvedilol (COREG) 25 MG tablet carvedilol (COREG) 25 MG tablet 04/25/2019 12:00:00 AM EST 25 mg Oral activ e Take 1 tablet (25 mg total) by mouth 2 (two) times a day [facility] atorvastatin 80 MG Oral Tablet atorvastatin (LIPITOR) 80 MG tablet atorvastatin (LIPITOR) 80 MG tablet 04/25/2019 12:00:00 AM EST 80 mg Oral active Take 1 tablet (80 mg total) by mouth nightly [facility] Acetaminophen 325 MG Oral Tablet acetaminophen (TYLENO L) 325 MG tablet acetaminophen (TYLENOL) 325 MG tablet 04/25/2019 12:00:00 AM EST 65 0 mg Oral active Take 2 tablets (650 mg total) by mouth every 4 (four) hours as needed [facility] Nitroglycerin 0.4 MG Sublingual Tablet n itroglycerin (NITROSTAT) 0.4 MG SL tablet nitroglycerin (NITROSTAT) 0.4 MG SL tablet 04/25/2019 12:00:00 A M EST 0.[address] 1 t ablet (0.4 mg total) under the tongue every 5 (five) minutes as needed for chest pain [facility] trandolapril 1 MG Oral Tablet trandolapril (MAVIK) tab let 1 mg trandolapril (MAVIK) tablet 1 mg 04/24/2019 01:00:00 PM EST 1 mg Oral active 1 mg, Oral, Daily, First dose on Christie 04/24/19 at 1300 [facility] Medication administered onsite sodium chloride 0.9% (NS) infusion 6489-2961-76 04/24/2019 11:00:00 A M EST Intravenous completed at 100 mL/hr, Intravenous, Continuous, Starting Christie 04/24/19 at 1100, For 8 hours, Post-op [facility] Medication administered onsite Acetaminophen 325 MG Oral Tablet acetaminophen (TYLENO L) 325 MG tablet 650 mg acetaminophen (TYLENOL) 325 MG tablet 650 mg 04/24/2019 10:15:07 AM EST 650 mg Oral active 650 mg, Or al, Every 4 hours PRN, headaches, and non cardiac pain, Starting Christie 04/24/19 at 1015, Post-op
"Maximum dose of acetaminophen is 4,000 mg from all sources in 24 hours."
[facility] Medication administered onsite Nitroglycerin 0.4 MG Sublingual Tablet n itroglycerin (NITROSTAT) SL tablet 0.4 mg nitroglycerin (NITROSTAT) SL tablet 0.4 mg 04/24/2019 10:15:07 A M EST 0.4 mg Sublingual active 0.4 mg, S ublingual, Every 5 min PRN, chest pain, Starting Christie 04/24/19 at 1015, Post-op
May administer every 5 minutes for 3 doses and call cardio lab MD.
[facility] Medication administered onsite 2 ML Midazolam 1 MG/ML Injection midazolam (VERSED) in jection midazolam (VERSED) injection 04/24/2019 08:31:50 AM EST active As needed, Starting Christie 04/24/19 at 0831, Intra-Procedure [facility] Medication administered onsite gabapentin 600 MG Oral Tablet gabapentin (NEURONTIN) t ablet 300 mg gabapentin (NEURONTIN) tablet 300 mg 04/23/2019 09:00:00 PM EST 300 mg Oral active 300 mg, Oral, Nightly, First dose on Sun04/23/19 at 2100
Please call provider to discuss before administration if BP<110
[facility] Medication administered onsite Insulin Glargine 100 UNT/ML Injectable S olution [Lantus] insulin glargine (LANTUS) injection 35 Units insulin glargine (LANTUS) injection 35 Units 04/23/2019 09:00:00 PM EST 35 U Subcutaneous active 35 Units, Subcutaneous, Nightly (Lantus), First dose on Sun04/23/19 at 2100
Basal Insulin (Lantus) Adjustments based on AM Blood GlucoseBlood GlucoseAdjustmentLess than 70 mg/dl Nursing to initiate hypoglycemia [id number] to 100 mg/dl Pharmacy to decrease total daily d ose by 20%101 to 200 mg/dl No Change
[facility] Medication administered onsite Insulin Lispro 100 UNT/ML Injectable Kasie ution insulin lispro (HumaLOG) injection 2-24 Units insulin lispro (HumaLOG) injection 2-24 Units 04/23/19 05:00:00 PM EST Subcutaneous active 2-2 4 Units, Subcutaneous, MEALSS, First dose on Sun04/23/19 at 1700
RESISTANT 12 units Nutritional and Correction Insulin ScaleBlood Glucose (mg/dl) <70 start hypoglycemiaprotocolGlucoseEats >=50% Eats <50%Eats Nothing (mg/dl) of meal of mealor NPO70- 1208 units 4 units 0 [id number] units 6 units 0 [id number]- 51377 units 8 units 2 [id number] units 10 units 4 [id number] units 12 units 6 - 39291 units 14 units 8 [id number] units 16 units 10 units>420 call MD24 units 18 units 12 unitsTest glucose within 30 minutes of insulin administration.Administer insulin within 15 minutes (before or after) of the patient starting to eat.For patients that are NPO, use theNPO (correction) scale to cover POC glucose at 08:00, 12:00, 17:00.
[facility] Medication administered onsite heparin (porcine) injection 5,000 Units [id number] 04/23/19 02:00:00 PM EST 5000 U Subcutaneous active 5,000 Units , Subcutaneous, Every 8 hours (scheduled), First dose on Sun04/23/19 at 1400
If platelet count is less than 90,000 or hematocrit is less than 25, or if there is a 5 point decrease in hematocrit, do not give the dose and call physician/designee.
[facility] Medication administered onsite Insulin Lispro 100 UNT/ML Injectable Kasie ution insulin lispro (HumaLOG) injection 2-20 Units insulin lispro (HumaLOG) injection 2-20 Units 04/23/19 01:00:00 PM EST Subcutaneous aborted 2-2 0 Units, Subcutaneous, MEALSS, First dose on Sun04/23/19 at 1300
10 units Nutritional and Correction Insulin ScaleBlood Glucose (mg/dl) <70 start hypoglycemiaprotocolGlucoseEats >=50% Eats <50%Eats Nothing (mg/dl) of meal of mealor NPO70- 1207 units 3 units 0 -84755 units 5 units 0 [id number]- 66327 units 7 units 2 -59167 units 8 units 3 [id number] units 10 units 5 [id number]- 90975 units 12 units 7 [id number] units 13 units 8 units>420 call MD20 units 15 units 10 unitsTest glucose within 30 minutes of insulin administration.Administer insulin within 15 minutes (before or after) of the patient starting to eat.For patients that are NPO, use theNPO (correction) scale to cover POC glucose at 08:00, 12:00, 17:00.
[facility] Medication administered onsite clopidogrel 75 MG Oral Tablet clopidogrel (PLAVIX) tab let 75 mg clopidogrel (PLAVIX) tablet 75 mg 04/23/2019 09:00:00 AM EST 75 mg Oral active 75 mg, Oral, Daily, First dose on Sun04/23/19 at 0900, Post-op
May begin the same day
[facility] Medication administered onsite sodium chloride 0.9% (NS) bolus 250 mL [id number] 0 02:00:00 AM EST 250 mL Intravenous completed 250 mL, In travenous, Administer over 1 Hours, Once, Sun04/23/19 at 0200, For 1 dose [facility] Medication administered onsite gabapentin 800 MG Oral Tablet gabapentin (NEURONTIN) t ablet 400 mg gabapentin (NEURONTIN) tablet 400 mg 04/22/2019 09:00:00 PM EST 400 mg Oral aborted 400 mg, Oral, Nightly, First dose on Sun04/22/19 at 2100 [facility] Medication administered onsite carvedilol 25 MG Oral Tablet carvedilol (COREG) tablet 25 mg carvedilol (COREG) tablet 25 mg 04/22/2019 09:00:00 PM EST 25 mg Oral activ e 25 mg, Oral, 2 times daily, First dose on Sun04/22/19 at 2100
Hold for SBP<100 HR<60
[facility] Medication administered onsite atorvastatin 80 MG Oral Tablet atorvastatin (LIPITOR) tablet 80 mg atorvastatin (LIPITOR) tablet 80 mg 04/22/2019 09:00:00 PM EST 80 mg Oral active 80 mg, Oral, Nightly, First dose on Sun04/22/19 at 2100 [facility] Medication administered onsite Insulin Glargine 100 UNT/ML Injectable S olution [Lantus] insulin glargine (LANTUS) injection 30 Units insulin glargine (LANTUS) injection 30 Units 04/22/2019 09:00:00 PM EST 30 U Subcutaneous aborted 30 Units, Subcutaneous, Nightly (Lantus), First dose on Sun04/22/19 at 2100
Basal Insulin (Lantus) Adjustments based on AM Blood GlucoseBlood GlucoseAdjustmentLess than 70 mg/dl Nursing to initiate hypoglycemia [id number] to 100 mg/dl Pharmacy to decrease total daily d ose by 20%101 to 200 mg/dl No Change
[facility] Medication administered onsite Lisinopril 5 MG Oral Tablet lisinopril (PRINIVIL,ZESTR IL) tablet 2.5 mg lisinopril (PRINIVIL,ZESTRIL) tablet 2.5 mg 04/22/2019 03:00:00 PM EST 2.5 mg Oral aborted 2.5 mg, Oral, Daily, First dose on Sun04/22/19 at 1500 [facility] Medication administered onsite normal saline flush 0.9 % injection 3 mL [id number] 04/22/2019 02:00:00 PM EST 3 mL Intravenous active 3 mL , Intravenous, PROTOCOL, First dose on Sun04/22/19 at 1400, Pre-op
flush per protocol, D/C Main IV fluid if appropriate
[facility] Medication administered onsite Aspirin 81 MG Chewable Tablet aspirin chewable tablet 81 mg aspirin chewable tablet 81 mg 04/22/2019 12:00:00 PM EST 81 mg Oral activ e 81 mg, Oral, Daily, First dose on Sun04/22/19 at 1200, Post-op
D/C any prior aspirin order
[facility] Medication administered onsite sodium chloride 0.9% (NS) infusion 3065-5837-07 04/22/2019 12:00:00 P M EST Intravenous completed at 100 mL/hr, Intravenous, Continuous, Starting Sun04/22/19 at 1200, For 3 hours, Post-op [facility] Medication administered onsite eptifibatide 0.75 MG/ML Injectable Solut ion eptifibatide (INTEGRILIN) 75 MG/100ML infusion eptifibatide (INTEGRILIN) 75 MG/100ML infusion 11:00:00 AM EST 1 ug/kg/min Intravenous active 1 mcg/kg/min 63.7 kg (5.096 mL/hr, rounded to 5.1 mL/hr), Intravenous, at 5.1 mL/hr, Continuous, Starting Sun04/22/19 at 1100
Infuse this medication only through single port tubing (SmartSite Infusion Set ref [id number]). Medication and tubing is to be discarded if infusion off for 4 hours.
Duration of Infusion: Until 100 ml bottle is complete [facility] Medication administered onsite Nitroglycerin 0.4 MG Sublingual Tablet n itroglycerin (NITROSTAT) SL tablet 0.4 mg nitroglycerin (NITROSTAT) SL tablet 0.4 mg 04/22/2019 10:57:28 A M EST 0.4 mg Sublingual active 0.4 mg, S ublingual, Every 5 min PRN, chest pain, Starting Sun04/22/19 at 1057, Post-op
May administer every 5 minutes for 3 doses and call cardio lab MD.
[facility] Medication administered onsite Nitroglycerin 0.02 MG/MG Topical Ointmen t nitroglycerin (NITROSTAT) 2 % ointment 0.5 inch nitroglycerin (NITROSTAT) 2 % ointment 0.5 inch 2018 09:00:00 AM EST 0.5 g Topical completed 0.5 in ch (0.5 g), Topical, Once, Sun04/22/19 at 0900, For 1 dose
1 inch = 1 gramHold for SBP less than 100 or if patient has taken Viagra (sildenafil) or Levitra (vardenafil) within 24 hours, or Cialis (tadalafil) within 48
[facility] Medication administered onsite Magnesium Oxide (MAG-OX) tablet 400 mg [id number] 09:00:00 AM EST 400 mg Oral active 400 mg, Oral, 2 times daily, First dose on Sun04/22/19 at 09 [facility] Medication administered onsite duloxetine 30 MG Delayed Release Oral Ca psule DULoxetine (CYMBALTA) DR capsule 60 mg DULoxetine (CYMBALTA) DR capsule 60 mg 04/22/2019 09:00:00 AM EST 60 mg Oral active 60 mg, Oral, Daily, First dose on Sun04/22/19 at 0900 [facility] Medication administered onsite Aspirin 81 MG Delayed Release Oral Tablet aspirin EC t ablet 81 mg aspirin EC tablet 81 mg 04/22/2019 09:00:00 AM EST 81 mg Oral abort ed 81 mg, Oral, Daily, First dose on Sun04/22/19 at 09 [facility] Medication administered onsite carvedilol 12.5 MG Oral Tablet carvedilol (COREG) tabl et 12.5 mg carvedilol (COREG) tablet 12.5 mg 04/22/2019 09:00:00 AM EST 12.5 mg Oral aborted 12.5 mg, Oral, 2 times daily, First dose on Sun04/22/19 at 0900
Hold for SBP<100 HR<60
[facility] Medication administered onsite clopidogrel 75 MG Oral Tablet clopidogrel (PLAVIX) tab let 75 mg clopidogrel (PLAVIX) tablet 75 mg 04/22/2019 09:00:00 AM EST 75 mg Oral aborted 75 mg, Oral, Daily, First dose on Sun04/22/19 at 0900 [facility] Medication administered onsite Insulin Lispro 100 UNT/ML Injectable Kasie ution insulin lispro (HumaLOG) injection 1-16 Units insulin lispro (HumaLOG) injection 1-16 Units 04/22/20 08:00:00 AM EST Subcutaneous aborted 1-1 6 Units, Subcutaneous, MEALSS, First dose on Sun04/22/19 at 0800
8 units Nutritional and Correction Insulin ScaleBlood Glucose (mg/dl) <70 start hypoglycemiaprotocolGlucoseEats >=50% Eats <50%Eats Nothing (mg/dl) of meal of mealor NPO70- 1205 units 3 units 0 -5817 units 4 units 0 [id number]- 2209 units 5 units 1 -40163 units 7 units 3 [id number]- 35083 units 8 units 4 -63655 units 9 units 5 [id number] units 11 units 7 units>420 call MD16 units 12 units 8 unitsTest glucose within 30 minutes of insulin administration.Administer insulin within 15 minutes (before or after) of the patient starting to eat.For patients that are NPO, use theNPO (correction) scale to cover POC glucose at 08:00, 12:00, 17:00.
[facility] Medication administered onsite sodium chloride 0.9% (NS) infusion [id number] 04/22/2019 06:00:00 A M EST Intravenous aborted at 75 mL/hr, Intravenous, Continuous, Starting Sun04/22/19 at 0600 [facility] Medication administered onsite normal saline flush 0.9 % injection 3 mL [id number] 04/22/2019 06:00:00 AM EST 3 mL Intravenous active 3 mL , Intravenous, Every 8 hours (scheduled), First dose on Sun04/22/19 at 0600
Rapid push positive pressure flushing shall be performed with a 10 cc normal saline syringe to check the PATENCY of a PIV site prior to any infusion therapy initiation unless resistance is met.
[facility] Medication administered onsite 500 ML heparin sodium, porcine 50 UNT/ML Injection heparin infusion 25,000 units in 500 mL 0.45% NaCl heparin infusion 25,000 units in 500 mL 0.45% NaCl 04/22/2019 04:00:00 AM EST 12 U/kg/h Intravenous aborted 12 Units/kg/hr 63.7 kg (15.288 mL/hr, rounded to 15.3 mL/hr), Intravenous, at 15.3 mL/hr, Continuous, Starting Sun04/22/19 at 0400
For Cardiac/BridgeaPTT (seconds) Heparin Dose (weight based)< 34 Bolus: 60 units/kg IV (Maximum bolus: 5,000 units) and increase infusion 3 units/kg/hr IV34 - 50 Bolus: 30 units/kg IV (Maximum bolus: 5,000 units) and increase infusion 2 units/kg/hr IV50.1 - 58 No bolus. Increase infusion 1 unit/kg/hr IV58.1 - 87 Therapeutic, No Dzyvvs45.1 - 97 Decrease infusion 1 unit/kg/hr IV 97.1 - 110Hold infusion for 30 minutes & decrease infusion 2 units/kg/hr IV> 110 Call MD if patient is bleeding. Hold infusion for 60 minutes & decrease infusion 3 units/kg/hr IVInitial heparin IV infusion rate:Do not exceed 1000 units/hr or 12 units/kg/hr initially (whichever is less)Infuse this medication only through single port tubing (SmartSite Infusion Set ref [id number]). Medication and tubing is to be discarded if infusion off for 4 hours.
[facility] Medication administered onsite Nitroglycerin 0.02 MG/MG Topical Ointmen t nitroglycerin (NITROSTAT) 2 % ointment 0.5 inch nitroglycerin (NITROSTAT) 2 % ointment 0.5 inch 2018 04:00:00 AM EST 0.5 g Topical completed 0.5 in ch (0.5 g), Topical, Once, Sun04/22/19 at 0400, For 1 dose
1 inch = 1 gramHold for SBP less than 100 or if patient has taken Viagra (sildenafil) or Levitra (vardenafil) within 24 hours, or Cialis (tadalafil) within 48
[facility] Medication administered onsite ondansetron (ZOFRAN) injection 4 mg [id number] 04/22/2019 03:37:1 1 AM EST 4 mg Intravenous active 4 mg, In travenous, Every 6 hours PRN, nausea, Starting Sun04/22/19 at 0337 [facility] Medication administered onsite Nitroglycerin 0.4 MG Sublingual Tablet n itroglycerin (NITROSTAT) SL tablet 0.4 mg nitroglycerin (NITROSTAT) SL tablet 0.4 mg 04/22/2019 03:37:11 A M EST 0.4 mg Sublingual aborted 0.4 mg, S ublingual, Every 5 min PRN, chest pain, Starting Sun04/22/19 at 0337
Hold for SBP less than 100 or if patient has taken Viagra (sildenafil) or Levitra (vardenafil) within 24 hours, or Cialis (tadalafil) within 48 hours
[facility] Medication administered onsite tedizolid phosphate 200 MG Oral Tablet [Sivextro] Sivextro 03/26/2019 12:00:00 AM EST ORAL active MEDENT ([facility] Metformin hydrochloride 1000 MG Oral Tab let metFORMIN (GLUCOPHAGE) 1000 MG tablet metFORMIN (GLUCOPHAGE) 1000 MG tablet 1000 mg Oral aborted Take 1,000 mg by mouth daily with breakfast [facility] Simvastatin 40 MG Oral Tablet simvastatin (ZOCOR) 40 M G tablet simvastatin (ZOCOR) 40 MG tablet 40 mg Oral aborted Nilton e 40 mg by mouth nightly [facility] Ranitidine 150 MG Oral Capsule ranitidine (ZANTAC) 150 MG capsule ranitidine (ZANTAC) 150 MG capsule 150 mg Oral aborted Take 150 mg by mouth 2 (two) times a day [facility] trandolapril 1 MG Oral Tablet trandolapril (MAVIK) 1 M G tablet trandolapril (MAVIK) 1 MG tablet 0.5 mg Oral aborted Nilton e 0.5 mg by mouth daily [facility] glimepiride 4 MG Oral Tablet glimepiride (AMARYL) 4 MG tablet glimepiride (AMARYL) 4 MG tablet 4 mg Oral aborted Take 4 mg by mouth Twice daily after meals [facility] Magnesium Oxide (MAG-OX) 400 MG tablet [id number] 400 mg Oral aborted Take 400 mg by mouth 2 (two) times a day [facility] tedizolid phosphate 200 MG Oral Tablet T edizolid Phosphate (SIVEXTRO) 200 MG TABS Tedizolid Phosphate (SIVEXTRO) 200 MG TABS 200 mg Oral aborted Take 200 mg by mouth daily [facility] Menthol, Topical Analgesic, (BIOFREEZE EX) 1 {application} Apply externally aborted Apply 1 application topically daily as needed (pain) [facility] Weston-3 Fatty Acids (FISH OIL PO) Oral aborte d Take by mouth [facility] Naproxen sodium 220 MG Oral Tablet naproxen sodium (AL LOUIE) 220 MG tablet naproxen sodium (ALEVE) 220 MG tablet 220 mg Oral aborted Take 220 mg by mouth daily as needed for pain [facility] insulin detemir 100 UNT/ML Injectable So lution Insulin Detemir 100 UNIT/ML Subcutaneous Solution (LEVEMIR) Insulin Detemir 100 UNIT/ML Subcutaneous Solution (LEVEMIR) 60 U Subcutaneous aborted Inject 60 Units into the skin every morning and take 90 units in the evening. [facility] Magnesium Chloride 535 MG Delayed Releas e Oral Tablet Magnesium Chloride (MAG64) 64 MG TBEC Magnesium Chloride (MAG64) 64 MG TBEC 64 mg Oral aborted Take 64 mg by mouth daily [facility] pantoprazole 40 MG Delayed Release Oral Tablet pantoprazole (PROTONIX) 40 MG tablet pantoprazole (PROTONIX) 40 MG tablet 40 mg Oral aborted Take 40 mg by mouth 2 (two) times a day [facility] clopidogrel 75 MG Oral Tablet clopidogrel (PLAVIX) 75 MG tablet clopidogrel (PLAVIX) 75 MG tablet 75 mg Oral aborted Ta ke 75 mg by mouth daily [facility] Metformin hydrochloride 1000 MG Oral Tab let metFORMIN (GLUCOPHAGE) 1000 MG tablet metFORMIN (GLUCOPHAGE) 1000 MG tablet 1500 mg Oral aborted Take 1,500 mg by mouth every evening [facility] Chlorthalidone 25 MG Oral Tablet chlorthalidone (HYGRO TEN) 25 MG tablet chlorthalidone (HYGROTEN) 25 MG tablet 12.5 mg Oral aborted Take 12.5 mg by mouth daily [facility] Spironolactone 25 MG Oral Tablet spironolactone (ALDAC TONE) 25 MG tablet spironolactone (ALDACTONE) 25 MG tablet 12.5 mg Oral aborted Take 12.5 mg by mouth daily [facility] carvedilol 12.5 MG Oral Tablet carvedilol (COREG) 12.5 MG tablet carvedilol (COREG) 12.5 MG tablet 12.5 mg Oral aborted Take 12.5 mg by mouth 2 (two) times a day [facility] Insurance Providers Payer name Policy type / Coverage type Policy ID Covered green party ID Covered green party's relationship to erwin Policy Erwin Plan Information [employer]IONS [id number] SP [id number] MEDICARE [id number] SP [id number] [facility] MEDICARE DIVISION [id number] S [id number] [place] [id number] S [id number] [employer] OPT[employer] [id number] S [id number] AARP O [id number] S [id number] MEDICARE C [id number] S [id number] AARP U [id number] Self [id number] MEDICARE A [id number] Self [id number] [id number] [facility] [id number] Noel [id number] MEDICARE [id number] Noel [id number] K97 [facility] [id number] MEDICARE [id number] AARP U [id number] Self [id number] INSURANCE COVID-19 COVID Noel C OVID INSURANCE COVID-19 [id number] [facility] MEDICARE DIVISION [id number] S [id number] [place]IC[place] [id number] S [id number] [facility] MEDICARE DIVISION [id number] S [id number] [employer] OPTIONS [id number] S [id number] [place]IC[place] [id number] S [id number] [facility] MEDICARE DIVISION [id number] S [id number] [place]ICARE [place] [id number] S [id number] [facility] MEDICARE DIVISION [id number] S [id number] [place]IC[place] [id number] S [id number] AAR 2 [id number] [facility] MEDICARE 1 [id number] 1 [id number] Medicare Dme Medigap Part B [id number] Self [id number] Aarp Insurance Medigap Part B [id number] 11 Self [id number] Medicare Medicare Primary [id number] Self [id number] Medicare Dme Medigap Part B [id number] Self [id number] Aarp Insurance Medigap Part B [id number] 11 Self [id number] 11 Medicare Medicare Primary [id number] Self [id number] Medicare Dme Medigap Part B [id number] Self [id number] Aarp Insurance Medigap Part B [id number] 11 Self [id number] 11 Medicare Medicare Primary [id number] Self [id number] Medicare Dme Medigap Part B [id number] Self [id number] Aarp Insurance Medigap Part B [id number] 11 Self [id number] 11 Medicare Medicare Primary [id number] Self [id number] Medicare Dme Medigap Part B [id number] Self [id number] Aarp Insurance Medigap Part B [id number] Self [id number] 11 Medicare Medicare Primary [id number] Self [id number] A[employer] HE[employer] CARE OPTIONS [id number] SP [id number] MEDICARE [id number] SP [id number] Aarp Insurance Medigap Part B [id number] Self [id number] 11 Medicare Medicare Primary [id number] Self [id number] Aarp Insurance Medigap Part B [id number] Self [id number] 11 Medicare Medicare Primary [id number] Self [id number] Aarp Insurance Medigap Part B [id number] Self [id number] 11 Medicare Medicare Primary [id number] Self [id number] Aarp Insurance Medigap Part B [id number] 11 Self [id number] 11 Medicare Medicare Primary [id number] Self [id number] AARP HEALTH CARE O [id number] S [id number] MEDICARE [id number] S [id number] A SELF PAY UNAVAILABLE SP UNAVAILA BLE Problems, Conditions, and Diagnoses Code Display Name Description Problem Type Effective Dates Data Source(s) 965108963 Peripheral vascular disease Peripheral vascular diseas e Problem 03/01/2020 12:00:00 AM EST [facility] ([facility]) [id number] Carotid artery occlusion Carotid artery occlusion Prob anita 03/01/2020 12:00:00 AM EST [facility] ([facility]) E83.42 [id number] Hypomagnesemia Problem 01/22/2020 12:00:00 A M EDT eCW1 ([facility]) Z95.5 History of coronary artery stent placeme nt History of coronary artery stent placement [id number] 11/25/2019 12:00:00 AM EDT [facility] K21.9 GERD (gastroesophageal reflux disease) G ERD (gastroesophageal reflux disease) [id number] 11/25/2019 12:00:00 AM EDT [facility] I25.10 Coronary artery disease Coronary artery disease [id number] 11/25/2019 12:00:00 AM EDT [facility] E78.00 Hypercholesterolemia Hypercholesterolemia [id number] 11/25/2019 12:00:00 AM EDT [facility] I10 Hypertension Hypertension [id number] 11/25/2019 12:00:00 A M EDT [facility] E11.9 Type 2 diabetes mellitus Type 2 diabetes mellitus 6457 200011/25/2019 12:00:00 AM EDT [facility] E11.40 Diabetic neuropathy Diabetic neuropathy [id number] 0 11/25/2019 12:00:00 AM EDT [facility] K92.2 UGIB (upper gastrointestinal bleed) UGIB (upper gastrointestinal bleed) [id number] 11/25/2019 12:00:00 AM EDT [facility] Z76.89 Encounter for examination of surgical si te Encounter for examination of surgical site [id number] 10/14/2019 12:00:00 AM EDT [facility] Z71.2 Encounter to discuss test results Encounter to anupama batres test results [id number] 10/13/2019 12:00:00 AM EDT [facility] I20.9 Anginal pain Anginal pain [id number] 10/07/2019 12:00:00 A M EDT [facility] I20.8 Angina at rest Angina at rest [id number] 10/07/2019 12:00: 00 AM EDT [facility] F41.9 Anxiety Anxiety 72087521 10/06/2019 12:00:00 AM ED T [facility] I20.0 Unstable angina Unstable angina [id number] 10/06/2019 12:0 0:00 AM EDT [facility] Pressure ulcer of other site, stage 4 Pressure u lcer of other site, stage 4 Problem 07/17/2019 12:00:00 AM EDT - 01/15/2020 12:00:00 AM ED T [facility] ([facility] [id number] Acute osteomyelitis of ankle and/or foot Acute osteomyelitis of ankle and/or foot Problem 07/17/2019 12:00:00 AM EDT - 01/15/2020 12:00:00 AM EDT [facility] ([facility] 690926015 Convalescence after surgery Convalescence after surger y Problem 07/17/2019 12:00:00 AM EDT - 01/15/2020 12:00:00 AM EDT [facility] ([facility] K21.9 061995263 Gastroesophageal reflux disease without e sophagitis Problem 07/07/2019 12:00:00 AM EDT eCW1 ([facility]) K21.9 673592569 Gastroesophageal reflux disease without e sophagitis Problem 07/07/2019 12:00:00 AM EDT eCW1 ([facility]) N18.3 033361508 CKD (chronic kidney disease) stage 3, GFR 30-59 ml/min Problem 06/12/2019 12:00:00 AM EST eCW1 ([facility]) N18.3 176479476 CKD (chronic kidney disease) stage 3, GFR 30-59 ml/min Problem 06/12/2019 12:00:00 AM EST eCW1 ([facility]) Pressure ulcer of other site, stage 2 Pressure u lcer of other site, stage 2 Problem 06/11/2019 12:00:00 AM EST [facility] ([facility] Cellulitis of right lower limb Cellulitis of right low er limb Problem 06/11/2019 12:00:00 AM EST [facility] ([facility] L97.512 97699063 Skin ulcer of right foot with fat layer e xposed Problem 06/06/2019 12:00:00 AM EST eCW1 ([facility]) L97.512 10511966 Skin ulcer of right foot with fat layer e xposed Problem 06/06/2019 12:00:00 AM EST eCW1 ([facility]) E11.628 253957061 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 Problem 05/31/2019 12:00:00 AM EST eCW1 ([facility]) 201596391 Dietary management surveillance Dietary manageme nt surveillance Problem 05/06/2019 12:00:00 AM EST [facility] ([facility]) 411119969 Electrocardiogram abnormal Electrocardiogram abnormal Problem 05/06/2019 12:00:00 AM EST [facility] ([facility]) 214658687 Acute diastolic heart failure Acute diastolic heart fa ilure Problem 05/06/2019 12:00:00 AM EST [facility] ([facility]) 46684017 Hyperlipidemia Hyperlipidemia Problem 05/06/2019 12:00: 00 AM EST [facility] ([facility]) 63442676 Essential hypertension Essential hypertension Problem 05/06/2019 12:00:00 AM EST [facility] ([facility]) 810951133 Patient post percutaneous transluminal c oronary angioplasty Patient post percutaneous transluminal coronary angioplasty Problem 12:00:00 AM EST [facility] ([facility]) 51202901 Acute subendocardial infarction Acute subendocar dial infarction Problem 05/06/2019 12:00:00 AM EST [facility] ([facility]) E11.59 37417285 Type 2 diabetes mellitus with ot her circulatory complications Problem 04/30/2019 12:00:00 AM EST eCW1 ([facility]) I25.10 [id number] Coronary artery dise ase involving [place] coronary artery of [place] heart without angina pectoris Problem 04/30/2019 12:00:00 AM EST eCW1 ([facility]) Z79.4 778772150 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 Proble m 04/30/2019 12:00:00 AM EST eCW1 ([facility]) F41.9 Anxiety Anxiety Problem 04/30/2019 12:00:00 AM ES T eCW1 ([facility]) I10 52256092 Essential hypertension Problem 04/30/2019 12 :00:00 AM EST eCW1 ([facility]) I25.10 [id number] Coronary artery dise ase involving [place] coronary artery of [place] heart without angina pectoris Problem 04/30/2019 12:00:00 AM EST eCW1 ([facility]) E11.59 81138020 Type 2 diabetes mellitus with ot her circulatory complications Problem 04/30/2019 12:00:00 AM EST eCW1 ([facility]) Z79.4 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 Proble m 04/30/2019 12:00:00 AM EST eCW1 ([facility]) F41.9 Anxiety Anxiety Problem 04/30/2019 12:00:00 AM ES T eCW1 ([facility]) I10 75339960 Essential hypertension Problem 04/30/2019 12 :00:00 AM EST eCW1 ([facility]) I73.9 Peripheral artery disease Peripheral artery disease 64 633969 04/22/2019 12:00:00 AM EST [facility] T14.8XXD Wound healing, delayed Wound healing, delayed 47399240 04/22/2019 12:00:00 AM EST [facility] L03.032 Paronychia of great toe of left foot Par onychia of great toe of left foot 34208930 04/22/2019 12:00:00 AM EST [facility] R79.89 Elevated troponin Elevated troponin [id number] 04/22/2019 12:00:00 AM [facility] I21.4 NSTEMI (non-ST elevated myocardial infar ction) NSTEMI (non-ST elevated myocardial infarction) 51846895 04/21/2019 12:00:00 AM [facility] Cellulitis of left toe Cellulitis of left toe Problem 03/18/2019 12:00:00 AM EST - 04/20/2019 12:00:00 AM EST [facility] ([facility] Corns and callosities Corns and callosities Problem 03/18/2019 12:00:00 AM EST - 04/01/2019 12:00:00 AM EST [facility] ([facility] 727266914 Ingrowing nail Ingrowing nail Problem 03/18/2019 12:00:00 AM EST - 04/01/2019 12:00:00 AM EST [facility] ([facility] Z87.891 Personal history of nicotine dependence PERSONAL HISTORY OF NICOTINE DEPENDENCE Diagnosis 04/23/2020 02:12:00 PM [facility] l Z95.5 Presence of coronary angioplasty implant and graft PRESENCE OF CORONARY ANGIOPLASTY IMPLANT AND GRAFT Diagnosis 04/23/2020 02:12:00 PM [facility] E78.00 PURE HYPERCHOLESTEROLEMIA, UNSPECIFIED P URE HYPERCHOLESTEROLEMIA, UNSPECIFIED Diagnosis 04/23/2020 02:12:00 PM [facility] I10 Essential (primary) hypertension ESSENTIAL (PRIMARY) H YPERTENSION Diagnosis 04/23/2020 02:12:00 PM [facility] I25.10 Atherosclerotic heart diseas e of [place] coronary artery without angina pectoris ATHSCL HEART DISEASE OF [place] CORONARY ARTERY W/O Diagnosis 04/23/2020 02:12:00 PM [facility] E11.9 Type 2 diabetes mellitus without complic ations TYPE 2 DIABETES MELLITUS WITHOUT COMPLICATIONS Diagnosis 04/23/2020 02:12:00 PM [facility] E83.42 Hypomagnesemia HYPOMAGNESEMIA Diagnosis 04/23/2020 02:12: 00 PM [facility] E86.0 Dehydration DEHYDRATION Diagnosis 04/23/2020 02:12:00 PM [facility] R11.2 Nausea with vomiting, unspecified NAUSEA WITH VO MITING, UNSPECIFIED Diagnosis 04/23/2020 02:12:00 PM [facility] Z79.899 Other [facility] (current) 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 THERAPY Diagnosis 03/22/2020 11:28:00 PM [facility] Z79.82 cork compounder (current) use of aspirin RETIREMENT (CU RRENT) USE OF ASPIRIN Diagnosis 03/22/2020 11:28:00 PM [facility] Z20.828 Contact with and (suspected) exposure to other viral communicable diseases CONTACT W AND EXPOSURE TO OTH VIRAL COMMUNICABLE D Diagnosis 03/22/2020 11:28:00 PM [facility] I48.91 Unspecified atrial fibrillation UNSPECIFIED ATRI AL FIBRILLATION Diagnosis 03/22/2020 11:28:00 PM [facility] R11.10 Vomiting, unspecified VOMITING, UNSPECIFIED Diagnosis 03/22/2020 11:28:00 [facility] Y93.89 Activity, other specified ACTIVITY, OTHER SPECIFIED Di agnosis 03/13/2020 09:53:00 PM [facility] Y92.[address] the place of o ccurrence of the external cause OTH PLACES THE PLACE OF OCCURRENCE OF THE EXTER Diagnosis 09:53:00 PM [facility] W01.0XXA Fall on same level from slip ping, tripping and stumbling without subsequent striking against object, initial encounter FALL SAME LEV FROM SLIP/TRIP W/O STRIKE AGAINST OB Diagnosis 03/13/2020 09:53:00 PM [facility] Z79.4 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[place] (CU 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) 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 OF INSULIN Diagnosis 03/13/2020 09:53:00 PM [facility] M25.512 Pain in left shoulder PAIN IN LEFT SHOULDER Diagnosis 03/13/2020 09:53:00 PM [facility] S22.42XA Multiple fractures of ribs, left side, initial encounter for closed fracture MULTIPLE FRACTURES OF RIBS, LEFT SIDE, INIT FOR CL Diagnosis 03/13/2020 09:53:00 PM [facility] S29.9XXA Unspecified injury of thorax, initial en counter UNSPECIFIED INJURY OF THORAX, INITIAL ENCOUNTER Diagnosis 03/13/2020 09:53:00 PM [facility] ospital Y93.01 Activity, walking, marching and hiking A CTIVITY, WALKING, MARCHING AND HIKING Diagnosis 03/11/2020 12:55:00 PM [facility] l Y92.[address] in unspeci fied non-institutional (private) residence as the place of occurrence of the external cause UNSP PLACE IN [facility] NON-INSTITUT (PRIVATE) RESIDENC Diagnosis 03/11/2020 12:55:00 PM [facility] l G89.11 Acute pain due to trauma ACUTE PAIN DUE TO TRAUMA Diag nosis 03/11/2020 12:55:00 PM [facility] S70.02XA Contusion of left hip, initial encounter CONTUSION OF LEFT HIP, INITIAL ENCOUNTER Diagnosis 03/11/2020 12:55:00 PM [facility] l S20.212A Contusion of left front wall of thorax, initial encounter CONTUSION OF LEFT FRONT WALL OF THORAX, INITIAL EN Diagnosis 03/11/2020 12:55:00 PM [facility] S46.012A Strain of muscle(s) and tend on(s) of the rotator cuff of left shoulder, initial encounter STRAIN OF MUSC/TEND THE ROTATOR CUFF OF LEFT SHOUL Diagnosis 03/11/2020 12:55:00 PM [facility] S46.812A Strain of other muscles, fas rylee and tendons at shoulder and upper arm level, left arm, initial encounter STRAIN OF MUSC/FASC/TEND AT SHLDR/UP ARM , LEFT ARM Diagnosis 03/11/2020 12:55:00 PM [facility] l S49.92XA Unspecified injury of left shoulder and upper arm, initial encounter UNSP INJURY OF LEFT SHOULDER AND UPPER ARM, INIT ENCNTR Diagnosis 03/11/2020 12:55:00 PM [facility] W18.39XA Other fall on same level, initial encoun ter OTHER FALL ON SAME LEVEL, INITIAL ENCOUNTER Diagnosis 12/13/2019 03:32:00 PM [facility] Z79.84 RETIREMENT (CURRENT) USE OF ORAL 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[employer] (CURRENT) USE OF ORAL HYPOGLYCEMIC DRUGS Diagnosis 12/13/2019 03:32:00 PM [facility] S40.012A Contusion of left shoulder, initial enco unter CONTUSION OF LEFT SHOULDER, INITIAL ENCOUNTER Diagnosis 12/13/2019 03:32:00 PM [facility] S16.1XXA Strain of muscle, fascia and tendon at n chente level, initial encounter STRAIN OF MUSCLE, FASCIA AND TENDON AT NECK LEVEL, Diagnosis 03:32:00 PM [facility] S13.4XXA Sprain of ligaments of cervical spine, i nitial encounter SPRAIN OF LIGAMENTS OF CERVICAL SPINE, INITIAL ENC Diagnosis 12/13/2019 03:32:00 PM [facility] S06.0X0A Concussion without loss of consciousness , initial encounter CONCUSSION WITHOUT LOSS OF CONSCIOUSNESS, INITIAL Diagnosis 12/13/2019 03:32:00 P M [facility] S09.90XA Unspecified injury of head, initial enco unter UNSPECIFIED INJURY OF HEAD, INITIAL ENCOUNTER Diagnosis 12/13/2019 03:32:00 PM [facility] pital new pt new pt Diagnosis 12/03/2019 02:24:26 PM [facility] K92.2 Gastrointestinal hemorrhage, unspecified Gastrointestinal hemorrhage, unspecified Diagnosis 11/25/2019 04:24:14 AM EDT [facility] K92.1 Melena MELENA Diagnosis 11/24/2019 07:57:00 PM [facility] K92.2 Gastrointestinal hemorrhage, unspecified GASTROINTESTINAL HEMORRHAGE, UNSPECIFIED Diagnosis 11/24/2019 07:57:00 PM [facility] R53.1 Weakness WEAKNESS Diagnosis 11/24/2019 07:57:00 PM [facility] S06.5X0D Traumatic subdural hemorrhag e without loss of consciousness, subsequent encounter Traumatic subdural hemorrhage without lo ss of consciousness, subsequent encounter Diagnosis 11/14/2019 04:58:33 PM [facility] S06.5X9A Traumatic subdural hemorrhag e with loss of consciousness of unspecified duration, initial encounter Traumatic subdural hemorrhage with loss of consciousness of unspecified duration, initial encounter Diagnosis 11/13/2019 11:47:31 PM [facility] s/p fall hitting head. Has Subdural hem atoma. s/p fall hitting head. Has Subdural hematoma. Diagnosis 11/13/2019 11:47:31 PM [facility] S01.81XA Laceration without foreign b imtiaz of other part of head, initial encounter LACERATION W/O FOREIGN BODY OF OTH PART OF HEAD, I Diagnosis 11/13/2019 08:00:00 PM [facility] S06.5X0A Traumatic subdural hemorrhag e without loss of consciousness, initial encounter TRAUM SUBDR HEM W/O LOSS OF CONSCIOUSNESS, INIT Diagnosis 11/13/2019 08:00:00 PM [facility] S09.93XA Unspecified injury of face, initial enco unter UNSPECIFIED INJURY OF FACE, INITIAL ENCOUNTER Diagnosis 11/13/2019 08:00:00 PM [facility] pital stable aneurysm stable aneurysm Diagnosis 11/05/2019 06:1 0:00 PM [facility] I21.4 Non-ST elevation (NSTEMI) myocardial inf arction Non-ST elevation (NSTEMI) myocardial inf Diagnosis [facility] Angina pectoris, unspecified Angina pectoris, unspecif ied Diagnosis 10/06/2019 06:57:00 PM [facility] I20.8 Other forms of angina pectoris Other forms of angina p ectoris Diagnosis 10/06/2019 06:57:00 PM [facility] R04.0 Epistaxis EPISTAXIS Diagnosis 06/18/2019 10:07:00 PM [facility] L03.115 Cellulitis of right lower limb CELLULITIS OF RIGHT LOW ER LIMB Diagnosis 05/31/2019 12:30:00 PM [facility] L08.9 Local infection of the skin and subcutan eous tissue, unspecified LOCAL INFECTION OF THE SKIN AND SUBCUTANEOUS TISSU Diagnosis 0 12:30:00 PM [facility] E11.628 Type 2 diabetes mellitus with other skin complications TYPE 2 DIABETES MELLITUS WITH OTHER SKIN COMPLICATIONS Diagnosis 05/31/2019 12:30:00 P M [facility] K21.9 Gastro-esophageal reflux disease without esophagitis Gastro-esophageal reflux disease without Diagnosis 04/22/2019 03:27:56 AM [facility] I73.9 Peripheral vascular disease, unspecified Peripheral vascular disease, unspecified Diagnosis 04/22/2019 03:27:56 AM [facility] R79.89 Other specified abnormal findings of blo od chemistry Other specified abnormal findings of blo Diagnosis 04/22/2019 03:27:56 AM [facility] I10 Essential (primary) hypertension Essential (primary) h ypertension Diagnosis 04/22/2019 03:27:56 AM [facility] E11.9 Type 2 diabetes mellitus without complic ations Type 2 diabetes mellitus without complic Diagnosis 04/22/2019 03:27:56 AM [facility] Z95.820 Peripheral vascular angioplasty status w ith implants and grafts PERIPHERAL VASCULAR ANGIOPLASTY STATUS W IMPLANTS Diagnosis 03/25 08:58:00 PM [facility] E11.65 Type 2 diabetes mellitus with hyperglyce anu TYPE 2 DIABETES MELLITUS WITH HYPERGLYCEMIA Diagnosis 04/21/2019 08:58:00 PM [facility] I21.4 Non-ST elevation (NSTEMI) myocardial inf arction NON-ST ELEVATION (NSTEMI) MYOCARDIAL INFARCTION Diagnosis 04/21/2019 08:58:00 PM [facility] M54.2 Cervicalgia CERVICALGIA Diagnosis 04/21/2019 08:58:00 PM [facility] Z12.39 Encounter for other screening for malign ant neoplasm of breast ENCOUNTER FOR OTH SCREENING FOR MALIGNAN Diagnosis 03/17/2019 02:48:00 PM [facility] I50.30 Unspecified diastolic (congestive) heart failure UNSPECIFIED DIASTOLIC (CONGESTIVE) HEART Diagnosis 03/17/2019 02:48:00 PM [facility] E11.40 Type 2 diabetes mellitus with diabetic n europathy, unspecified TYPE 2 DIABETES MELLITUS WITH DIABETIC N Diagnosis 03/17/2019 02:48:00 PM [facility] 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 TYPE 2 DIABETES MELLITUS WITH DIABETIC N Diagnosis 03/17/2019 02:48:00 PM [facility] E11.51 Type 2 diabetes mellitus wit h diabetic peripheral angiopathy without gangrene TYPE 2 DIABETES W DIABETIC PERIPHERAL AN Diagnosis 03/17/2019 02:48:00 PM [facility] E11.319 Type 2 diabetes mellitus wit h unspecified diabetic retinopathy without macular edema TYPE 2 DIABETES W UNSP DIABETIC RTNOP W/ Diagnosis 03/17/2019 02:48:00 PM [facility] Z12.31 Encounter for screening mammogram for ma lignant neoplasm of breast ENCNTR SCREEN MAMMOGRAM FOR MALIGNANT NEOPLASM OF BREAST Diagnosis 02:48:00 PM [facility] Surgeries/Procedures Procedure Description Date Indications Data Source(s) ECG ROUTINE ECG W/LEAST 12 LDS W/I&R 05/11/2020 12:00: 00 AM EST [facility] ([facility]) DEBRIDEMENT NAIL ANY METHOD 03/09/2020 12:00:00 AM EST [facility] ([facility] ECG ROUTINE ECG W/LEAST 12 LDS W/I&R 03/01/2020 12:00: 00 AM EST [facility] ([facility]) DEBRIDEMENT NAIL ANY METHOD 01/01/2020 12:00:00 AM EDT [facility] ([facility] GLUC BLD GLUC MNTR DEV CLEARED FDA SPEC HOME USE POCT GLUCOSE Routine 11/26/2019 12:13 PM EDT 11/26/2019 04:13:00 PM EDT [facility] GLUC BLD GLUC MNTR DEV CLEARED FDA SPEC HOME USE POCT GLUCOSE Routine 11/26/2019 12:12 PM EDT 11/26/2019 04:12:00 PM EDT [facility] BLOOD COUNT HEMATOCRIT HEMATOCRIT STAT 11/26/2019 10:31 AM EDT 11/26/2019 02:31:00 PM EDT [facility] MAGNESIUM MAGNESIUM Add-On 11/26/2019 10:31 AM EDT 11/26/2019 02:31:00 PM EDT [facility] GLUC BLD GLUC MNTR DEV CLEARED FDA SPEC HOME USE POCT GLUCOSE Routine 11/26/2019 8:28 AM EDT 11/26/2019 12:28:00 PM EDT [facility] BLOOD COUNT COMPLETE AUTOMATED CBC Routine 11/26/2019 8:06 A M EDT 11/26/2019 12:06:00 PM EDT [facility] BASIC METABOLIC PANEL CALCIUM TOTAL BASIC METABOLIC PANEL Routi ne 11/26/2019 8:06 AM EDT 11/26/2019 12:06:00 PM EDT [facility] GLUC BLD GLUC MNTR DEV CLEARED FDA SPEC HOME USE POCT GLUCOSE Routine 11/25/2019 11:42 PM EDT 11/26/2019 03:42:00 AM EDT [facility] BLOOD COUNT COMPLETE AUTOMATED CBC Timed 11/25/2019 8:12 P M EDT 11/26/2019 12:12:00 AM EDT [facility] GLUC BLD GLUC MNTR DEV CLEARED FDA SPEC HOME USE POCT GLUCOSE Routine 11/25/2019 5:38 PM EDT 11/25/2019 09:38:00 PM EDT [facility] GLUC BLD GLUC MNTR DEV CLEARED FDA SPEC HOME USE POCT GLUCOSE Routine 11/25/2019 2:30 PM EDT 11/25/2019 06:30:00 PM EDT [facility] URINE CULTURE HOLD SPECIMEN URINE CULTURE HOLD SPECIMEN Routine 11/25/2019 10:18 AM EDT 11/25/2019 02:18:00 PM EDT [facility] URNLS DIP STICK/TABLET RGNT AUTO W/O MICROSCOPY URINALYSIS W/O MICRO Routine 11/25/2019 10:18 AM EDT 11/25/2019 02:18:00 PM EDT [facility] TROPONIN QUANTITATIVE TROPONIN I Routine 11/25/2019 7:49 AM EDT 11/25/2019 11:49:00 AM EDT [facility] PROTHROMBIN TIME PROTIME-INR Routine 11/25/2019 7:49 AM EDT 11/25/2019 11:49:00 AM EDT [facility] MAGNESIUM MAGNESIUM Add-On 11/25/2019 7:49 AM EDT 11/25/2019 11:49:00 AM EDT [facility] COMPREHENSIVE METABOLIC PANEL COMPREHENSIVE METABOLIC PANEL Rou sher 11/25/2019 7:49 AM EDT 11/25/2019 11:49:00 AM EDT [facility] GLUC BLD GLUC MNTR DEV CLEARED FDA SPEC HOME USE POCT GLUCOSE Routine 11/25/2019 7:39 AM EDT 11/25/2019 11:39:00 AM EDT [facility] BLOOD COUNT COMPLETE AUTOMATED CBC Timed 11/25/2019 7:38 A M EDT 11/25/2019 11:38:00 AM EDT [facility] BLOOD TYPING ABO TYPE AND SCREEN Routine 11/25/2019 7:38 AM EDT 11/25/2019 11:38:00 AM EDT [facility] ECG ROUTINE ECG W/LEAST 12 LDS TRCG ONLY W/O I&R ECG 12-LEAD Routine 11/25/2019 7:09 AM EDT 11/25/2019 11:09:29 AM EDT [facility] POCT GLUCOSE, DOCKED POCT GLUCOSE, DOCKED Routine 11/15/2019 12:22 PM EDT 11/15/2019 04:22:00 PM EDT [facility] POCT GLUCOSE, DOCKED POCT GLUCOSE, DOCKED Routine 11/15/2019 8:25 AM EDT 11/15/2019 12:25:00 PM [facility] CT HEAD/BRAIN W/O CONTRAST MATERIAL CT HEAD WITHOUT CONTRAST 70 450 Routine 11/15/2019 6:23 AM EDT 11/15/2019 10:23:55 AM [facility] BLOOD COUNT COMPLETE AUTO&AUTO DIFRNTL WBC COUNT CBC AND DIFFER ENTIAL Routine 11/15/2019 5:09 AM EDT 11/15/2019 09:09:00 AM [facility] MAGNESIUM MAGNESIUM LEVEL Routine 11/15/2019 5:09 AM EDT 11/15/2019 09:09:00 AM [facility] BASIC METABOLIC PANEL CALCIUM TOTAL BASIC METABOLIC PANEL Routi ne 11/15/2019 5:09 AM EDT 11/15/2019 09:09:00 AM EDT [facility] GLUCOSE QUANTITATIVE BLOOD XCPT REAGENT STRIP POCT GLUCOSE, PRITI DAWSOND Routine 11/14/2019 9:32 PM EDT 11/15/2019 01:32:00 AM [facility] BASIC METABOLIC PANEL CALCIUM TOTAL BASIC METABOLIC PANEL Routi ne 11/14/2019 7:03 PM EDT 11/14/2019 11:03:00 PM EDT [facility] GLUCOSE QUANTITATIVE BLOOD XCPT REAGENT STRIP POCT GLUCOSE, PRITI DAWSOND Routine 11/14/2019 6:03 PM EDT 11/14/2019 10:03:00 PM [facility] GLUCOSE QUANTITATIVE BLOOD XCPT REAGENT STRIP POCT GLUCOSE, DOC EUNICED Routine 11/14/2019 12:42 PM EDT 11/14/2019 04:42:00 PM [facility] BLOOD COUNT COMPLETE AUTO&AUTO DIFRNTL WBC COUNT CBC AND DIFFER ENTIAL Routine 11/14/2019 9:44 AM EDT 11/14/2019 01:44:00 PM [facility] HEMOGLOBIN GLYCOSYLATED A1C HEMOGLOBIN A1C Routine 11/14/2019 9:44 AM EDT 11/14/2019 01:44:00 PM [facility] LIPID PANEL LIPID PANEL Routine 11/14/2019 9:44 AM EDT 11/14/2019 01:44:00 PM [facility] ECHO TTHRC R-T 2D W/WOM-MODE COMPL SPEC&COLR DOP ECHOCARDIO GRAM 2D COMPLETE Routine 11/14/2019 9:30 AM EDT 11/14/2019 01:30:45 PM [facility] GLUCOSE QUANTITATIVE BLOOD XCPT REAGENT STRIP POCT GLUCOSE, DOC KED Routine 11/14/2019 8:21 AM EDT 11/14/2019 12:21:00 PM [facility] VASC LAB US DOPPLER CAROTID BILATERAL COMP [id number] VASC LAB US DOPPLER CAROTID BILATERAL COMP [id number] Routine 11/14/2019 7:46 AM EDT 11/14/2019 11:46:00 AM [facility] GLUCOSE QUANTITATIVE BLOOD XCPT REAGENT STRIP POCT GLUCOSE, DOC KED Routine 11/14/2019 5:14 AM EDT 11/14/2019 09:14:00 AM [facility] CT HEAD/BRAIN W/O CONTRAST MATERIAL CT HEAD WITHOUT CONTRAST 70 450 STAT 11/14/2019 1:45 AM EDT 11/14/2019 05:45:51 AM [facility] XR CHEST FRONTAL ONLY [id number] XR CHEST FRONTAL ONLY [id number] STAT 11/14/2019 12:23 AM EDT 11/14/2019 04:23:04 AM EDT [facility] EKG 12-LEAD - CMAXX REPORT EKG 12-LEAD - CMAXX REPORT 11/14/2019 12:21 AM EDT 11/14/2019 04:21:08 AM EDT [facility] EKG 12-LEAD - CMAXX REPORT EKG 12-LEAD - CMAXX REPORT 11/14/2019 12:21 AM EDT 11/14/2019 04:21:08 AM EDT [facility] EKG 12-LEAD EKG 12-LEAD STAT 11/14/2019 12:21 AM EDT 11/14/2019 04:21:08 AM [facility] EKG 12-LEAD - CMAXX REPORT EKG 12-LEAD - CMAXX REPORT 11/14/2019 12:21 AM EDT 11/14/2019 04:21:00 AM EDT [facility] THROMBOPLASTIN TIME PARTIAL PLASMA/WHOLE BLOOD PARTIA L THROMBOPLASTIN TIME (PTT) STAT 11/14/2019 12:04 AM EDT 11/14/2019 04:04 :00 AM [facility] PROTHROMBIN TIME PROTIME INR STAT 11/14/2019 12:04 AM EDT 11/14/2019 04:04:00 AM [facility] BLOOD COUNT COMPLETE AUTO&AUTO DIFRNTL WBC COUNT CBC AND DIFFER ENTIAL STAT 11/14/2019 12:04 AM EDT 11/14/2019 04:04:00 AM [facility] TROPONIN QUANTITATIVE TROPONIN T STAT 11/14/2019 12:04 AM EDT 11/14/2019 04:04:00 AM [facility] THYROID STIMULATING HORMONE TSH TSH STAT 11/14/2019 12:04 AM EDT 11/14/2019 04:04:00 AM [facility] BASIC METABOLIC PANEL CALCIUM TOTAL BASIC METABOLIC PANEL STAT 11/14/2019 12:04 AM EDT 11/14/2019 04:04:00 AM EDT [facility] ECG ROUTINE ECG W/LEAST 12 LDS W/I&R 10/29/2019 12:00: 00 AM EDT [facility] ([facility]) DEBRIDEMENT NAIL ANY METHOD 6/> 10/23/2019 12:00:00 AM EDT [facility] ([facility] GLUC BLD GLUC MNTR DEV CLEARED FDA SPEC HOME USE POCT GLUCOSE Routine 10/14/2019 9:49 AM EDT 10/14/2019 01:49:00 PM EDT [facility] CMB CMB Timed 10/14/2019 7:06 AM EDT 10/14/19 20 11:06:00 AM EDT [facility] BLOOD COUNT COMPLETE AUTOMATED CBC Routine 10/14/2019 7:06 A M EDT 10/14/2019 11:06:00 AM EDT [facility] CREATINE KINASE MB FRACTION ONLY CKMB Timed 10/14/2019 7:06 AM EDT 10/14/2019 11:06:00 AM EDT [facility] BASIC METABOLIC PANEL CALCIUM TOTAL BASIC METABOLIC PANEL Routi ne 10/14/2019 7:06 AM EDT 10/14/2019 11:06:00 AM EDT [facility] ECG ROUTINE ECG W/LEAST 12 LDS TRCG ONLY W/O I&R ECG 12-LEAD Routine 10/14/2019 5:49 AM EDT 10/14/2019 09:49:08 AM EDT [facility] CMB CMB Timed 10/13/2019 11:05 PM EDT 10/14/19 20 03:05:00 AM EDT [facility] CREATINE KINASE MB FRACTION ONLY CKMB Timed 10/13/2019 11:05 PM EDT 10/14/2019 03:05:00 AM EDT [facility] GLUC BLD GLUC MNTR DEV CLEARED FDA SPEC HOME USE POCT GLUCOSE Routine 10/13/2019 7:42 PM EDT 10/13/2019 11:42:00 PM EDT [facility] CARDIAC CATHETERIZATION CARDIAC CATHETERIZATION Routine 10/13/2019 6:06 PM EDT NSTEMI (non-ST elevated myocardial infarction) 10/13/2019 10 :06:36 PM EDT NSTEMI (non-ST elevated myocardial infarction) [facility] NSTEMI (non-ST elevated myocardial infar ction) GLUC BLD GLUC MNTR DEV CLEARED FDA SPEC HOME USE POCT GLUCOSE Routine 10/13/2019 1:45 PM EDT 10/13/2019 05:45:00 PM EDT [facility] GLUC BLD GLUC MNTR DEV CLEARED FDA SPEC HOME USE POCT GLUCOSE Routine 10/13/2019 8:37 AM EDT 10/13/2019 12:37:00 PM EDT [facility] THROMBOPLASTIN TIME PARTIAL PLASMA/WHOLE BLOOD APTT STAT 10/13/2019 5:38 AM EDT 10/13/2019 09:38:00 AM EDT [facility] BLOOD COUNT COMPLETE AUTOMATED CBC Routine 10/13/2019 5:38 A M EDT 10/13/2019 09:38:00 AM EDT [facility] BASIC METABOLIC PANEL CALCIUM TOTAL BASIC METABOLIC PANEL Routi ne 10/13/2019 5:38 AM EDT 10/13/2019 09:38:00 AM EDT [facility] THROMBOPLASTIN TIME PARTIAL PLASMA/WHOLE BLOOD APTT STAT 10/12/2019 10:37 PM EDT 10/13/2019 02:37:00 AM EDT [facility] GLUC BLD GLUC MNTR DEV CLEARED FDA SPEC HOME USE POCT GLUCOSE Routine 10/12/2019 5:21 PM EDT 10/12/2019 09:21:00 PM EDT [facility] TROPONIN QUANTITATIVE TROPONIN I STAT 10/12/2019 2:46 PM EDT 10/12/2019 06:46:00 PM EDT [facility] THROMBOPLASTIN TIME PARTIAL PLASMA/WHOLE BLOOD APTT STAT 10/12/2019 2:46 PM EDT 10/12/2019 06:46:00 PM EDT [facility] DUPLEX SCAN EXTRACRANIAL ART COMPL BI STUDY US CAROTID BILATERA L Routine 10/12/2019 1:36 PM EDT 10/12/2019 05:36:01 PM EDT [facility] GLUC BLD GLUC MNTR DEV CLEARED FDA SPEC HOME USE POCT GLUCOSE Routine 10/12/2019 11:13 AM EDT 10/12/2019 03:13:00 PM EDT [facility] TROPONIN QUANTITATIVE TROPONIN I Routine 10/12/2019 9:51 AM EDT 10/12/2019 01:51:00 PM EDT [facility] GLUC BLD GLUC MNTR DEV CLEARED FDA SPEC HOME USE POCT GLUCOSE Routine 10/12/2019 7:43 AM EDT 10/12/2019 11:43:00 AM EDT [facility] THROMBOPLASTIN TIME PARTIAL PLASMA/WHOLE BLOOD APTT STAT 10/12/2019 6:45 AM EDT 10/12/2019 10:45:00 AM EDT [facility] TROPONIN QUANTITATIVE POCT TROPONIN Routine 10/12/2019 3:18 AM EDT 10/12/2019 07:18:00 AM EDT [facility] 2019 NCOV AMPLIFIED 2019 NCOV AMPLIFIED STAT 10/12/2019 1:04 AM EDT 10/12/2019 05:04:00 AM EDT [facility] URINE CULTURE HOLD SPECIMEN URINE CULTURE HOLD SPECIMEN Routine 10/12/2019 1:04 AM EDT 10/12/2019 05:04:00 AM EDT [facility] TROPONIN QUANTITATIVE POCT TROPONIN Routine 10/12/2019 12:48 AM EDT 10/12/2019 04:48:00 AM EDT [facility] TROPONIN QUANTITATIVE TROPONIN I Timed 10/12/2019 12:36 AM EDT 10/12/2019 04:36:00 AM EDT [facility] BLOOD COUNT COMPLETE AUTO&AUTO DIFRNTL WBC COUNT CBC AND DIFFER ENTIAL STAT 10/12/2019 12:36 AM EDT 10/12/2019 04:36:00 AM EDT [facility] COMPREHENSIVE METABOLIC PANEL COMPREHENSIVE METABOLIC PANEL STA T 10/12/2019 12:36 AM EDT 10/12/2019 04:36:00 AM EDT [facility] ECG ROUTINE ECG W/LEAST 12 LDS TRCG ONLY W/O I&R ECG 12-LEAD Routine 10/12/2019 12:27 AM EDT 10/12/2019 04:27:47 AM EDT [facility] XR CHEST PORTABLE XR CHEST PORTABLE Routine 10/12/2019 12:25 AM EDT 10/12/2019 04:25:24 AM EDT [facility] GLUC BLD GLUC MNTR DEV CLEARED FDA SPEC HOME USE POCT GLUCOSE Routine 10/09/2019 12:22 PM EDT 10/09/2019 04:22:00 PM EDT [facility] GLUC BLD GLUC MNTR DEV CLEARED FDA SPEC HOME USE POCT GLUCOSE Routine 10/09/2019 9:49 AM EDT 10/09/2019 01:49:00 PM EDT [facility] ECHO TTHRC R-T 2D W/WOM-MODE COMPL SPEC&COLR DOP ECHOCARDIO GRAM TRANSTHORACIC Pending Discharge 10/09/2019 8:21 AM EDT 10/09/2019 12:21 :14 PM EDT [facility] BLOOD COUNT COMPLETE AUTOMATED CBC Timed 10/09/2019 5:22 A M EDT 10/09/2019 09:22:00 AM EDT [facility] BASIC METABOLIC PANEL CALCIUM TOTAL BASIC METABOLIC PANEL Timed 10/09/2019 5:22 AM EDT 10/09/2019 09:22:00 AM EDT [facility] ECG ROUTINE ECG W/LEAST 12 LDS TRCG ONLY W/O I&R ECG 12-LEAD Routine 10/09/2019 5:13 AM EDT 10/09/2019 09:13:01 AM EDT [facility] GLUC BLD GLUC MNTR DEV CLEARED FDA SPEC HOME USE POCT GLUCOSE Routine 10/08/2019 6:16 PM EDT 10/08/2019 10:16:00 PM EDT [facility] GLUC BLD GLUC MNTR DEV CLEARED FDA SPEC HOME USE POCT GLUCOSE Routine 10/08/2019 12:19 PM EDT 10/08/2019 04:19:00 PM EDT [facility] GLUC BLD GLUC MNTR DEV CLEARED FDA SPEC HOME USE POCT GLUCOSE Routine 10/08/2019 8:44 AM EDT 10/08/2019 12:44:00 PM EDT [facility] BLOOD COUNT COMPLETE AUTOMATED CBC Timed 10/08/2019 5:02 A M EDT 10/08/2019 09:02:00 AM EDT [facility] BASIC METABOLIC PANEL CALCIUM TOTAL BASIC METABOLIC PANEL Timed 10/08/2019 5:02 AM EDT 10/08/2019 09:02:00 AM EDT [facility] ECG ROUTINE ECG W/LEAST 12 LDS W/I&R ECG 12-LEAD Routine 10/08/2019 4:22 AM EDT 10/08/2019 08:22:11 AM EDT [facility] TROPONIN QUANTITATIVE TROPONIN I STAT 10/07/2019 11:39 PM EDT 10/08/2019 03:39:00 AM EDT [facility] ECG ROUTINE ECG W/LEAST 12 LDS TRCG ONLY W/O I&R ECG 12-LEAD Routine 10/07/2019 10:40 PM EDT 10/08/2019 02:40:12 AM EDT [facility] GLUC BLD GLUC MNTR DEV CLEARED FDA SPEC HOME USE POCT GLUCOSE Routine 10/07/2019 5:45 PM EDT 10/07/2019 09:45:00 PM EDT [facility] TROPONIN QUANTITATIVE TROPONIN I Timed 10/07/2019 4:02 PM EDT 10/07/2019 08:02:00 PM EDT [facility] GLUC BLD GLUC MNTR DEV CLEARED FDA SPEC HOME USE POCT GLUCOSE Routine 10/07/2019 3:42 PM EDT 10/07/2019 07:42:00 PM EDT [facility] TROPONIN QUANTITATIVE TROPONIN I Timed 10/07/2019 12:52 PM EDT 10/07/2019 04:52:00 PM EDT [facility] GLUC BLD GLUC MNTR DEV CLEARED FDA SPEC HOME USE POCT GLUCOSE Routine 10/07/2019 11:48 AM EDT 10/07/2019 03:48:00 PM EDT [facility] GLUC BLD GLUC MNTR DEV CLEARED FDA SPEC HOME USE POCT GLUCOSE Routine 10/07/2019 9:08 AM EDT 10/07/2019 01:08:00 PM EDT [facility] BLOOD COUNT COMPLETE AUTOMATED CBC Timed 10/07/2019 4:45 A M EDT 10/07/2019 08:45:00 AM EDT [facility] MAGNESIUM MAGNESIUM Add-On 10/07/2019 4:45 AM EDT 10/07/2019 08:45:00 AM EDT [facility] LIPASE LIPASE Routine 10/07/2019 4:45 AM EDT 10/07/19 20 08:45:00 AM EDT [facility] BASIC METABOLIC PANEL CALCIUM TOTAL BASIC METABOLIC PANEL Timed 10/07/2019 4:45 AM EDT 10/07/2019 08:45:00 AM EDT [facility] ECG ROUTINE ECG W/LEAST 12 LDS TRCG ONLY W/O I&R ECG 12-LEAD Routine 10/07/2019 4:01 AM EDT 10/07/2019 08:01:59 AM EDT [facility] TROPONIN QUANTITATIVE TROPONIN I Timed 10/06/2019 11:14 PM EDT 10/07/2019 03:14:00 AM EDT [facility] ECG ROUTINE ECG W/LEAST 12 LDS TRCG ONLY W/O I&R ECG 12-LEAD Routine 10/06/2019 10:58 PM EDT 10/07/2019 02:58:33 AM EDT [facility] URNLS DIP STICK/TABLET RGNT AUTO W/O MICROSCOPY URINALYSIS W/O MICRO Routine 10/06/2019 9:37 PM EDT 10/07/2019 01:37:00 AM EDT [facility] GLUC BLD GLUC MNTR DEV CLEARED FDA SPEC HOME USE POCT GLUCOSE Routine 10/06/2019 9:07 PM EDT 10/07/2019 01:07:00 AM EDT [facility] HEMOGLOBIN GLYCOSYLATED A1C HEMOGLOBIN A1C Routine 10/06/2019 7:47 PM EDT 10/06/2019 11:47:00 PM EDT [facility] NT PRO BNP NT PRO BNP Routine 10/06/2019 7:46 PM EDT 10/06/2019 11:46:00 PM EDT [facility] TROPONIN QUANTITATIVE TROPONIN I Timed 10/06/2019 7:46 PM EDT 10/06/2019 11:46:00 PM EDT [facility] THROMBOPLASTIN TIME PARTIAL PLASMA/WHOLE BLOOD APTT Routine 10/06/2019 7:46 PM EDT 10/06/2019 11:46:00 PM EDT [facility] PROTHROMBIN TIME PROTIME-INR Routine 10/06/2019 7:46 PM EDT 10/06/2019 11:46:00 PM EDT [facility] BLOOD COUNT COMPLETE AUTO&AUTO DIFRNTL WBC COUNT CBC AND DIFFER ENTIAL Routine 10/06/2019 7:46 PM EDT 10/06/2019 11:46:00 PM EDT [facility] THYROID STIMULATING HORMONE TSH TSH Routine 10/06/2019 7:46 PM EDT 10/06/2019 11:46:00 PM EDT [facility] MAGNESIUM MAGNESIUM Routine 10/06/2019 7:46 PM EDT 10/06/2019 11:46:00 PM EDT [facility] LIPASE LIPASE Add-On 10/06/2019 7:46 PM EDT 10/06/19 20 11:46:00 PM EDT [facility] LIPID PANEL LIPID PANEL Routine 10/06/2019 7:46 PM EDT 10/06/2019 11:46:00 PM EDT [facility] COMPREHENSIVE METABOLIC PANEL COMPREHENSIVE METABOLIC PANEL STA T 10/06/2019 7:46 PM EDT 10/06/2019 11:46:00 PM EDT [facility] GLUC BLD GLUC MNTR DEV CLEARED FDA SPEC HOME USE POCT GLUCOSE Routine 10/06/2019 7:45 PM EDT 10/06/2019 11:45:00 PM EDT [facility] BLOOD TYPING ABO TYPE AND SCREEN Routine 10/06/2019 7:43 PM EDT 10/06/2019 11:43:00 PM EDT [facility] ECG ROUTINE ECG W/LEAST 12 LDS W/I&R ECG 12-LEAD Routine 10/06/2019 7:27 PM EDT 10/06/2019 11:27:49 PM EDT [facility] GLUC BLD GLUC MNTR DEV CLEARED FDA SPEC HOME USE POCT GLUCOSE Routine 10/06/2019 7:26 PM EDT 10/06/2019 11:26:00 PM EDT [facility] TRANS CARE MGMT 7 DAY DISCH 09/11/2019 12:00:00 AM EDT [email or web address] ([facility]) DEBRIDEMENT OPEN WOUND 20 SQ CM/< 09/10/2019 12:00:00 AM EDT [facility] ([facility] Transitional Care NO CHARGE Visit 09/08/2019 12:00:00 AM EDT [email or web address] ([facility]) DEBRIDEMENT SUBCUTANEOUS TISSUE 20 SQ CM/< 08/01/2019 12:00:00 AM EDT [facility] ([facility] Ostectomy Partial Excision 5TH Metatarsal Head ([place]) 06/25/2019 12:00:00 AM EST [facility] ([facility] DEBRIDEMENT NAIL ANY METHOD 6/> 06/16/2019 12:00:00 AM EST [facility] ([facility] Office Visit, Est Pt., Level 4 FC 06/12/2019 12:00:00 AM EST [email or web address] ([facility]) TRANS CARE MGMT 14 DAY DISCH 06/12/2019 12:00:00 AM ES T [email or web address] ([facility]) CMPLX CHRON CARE W/O PT VSIT 2019 12:00:00 AM ES T [email or web address] ([facility]) CMPLX CHRON CARE ADDL 30 MIN 2019 12:00:00 AM ES T [email or web address] ([facility]) DEBRIDEMENT SUBCUTANEOUS TISSUE 20 SQ CM/< 06/06/2019 12:00:00 AM EST [facility] ([facility] DEBRIDEMENT SUBCUTANEOUS TISSUE 20 SQ CM/< 06/01/2019 12:00:00 AM EST [facility] ([facility] Office Visit, Est Pt., Level 1 FC 05/19/2019 12:00:00 AM EST [email or web address] ([facility]) Office Visit, Est Pt., Level 3 PC 05/19/2019 12:00:00 AM EST [email or web address] ([facility]) ECG ROUTINE ECG W/LEAST 12 LDS W/I&R 05/06/2019 12:00: 00 AM EST [facility] ([facility]) Arterial Pressure Waveform Analysis For Assessment Of Centra l Art 05/06/2019 12:00:00 AM EST [facility] ([facility]) DEBRIDEMENT OPEN WOUND 20 SQ CM/< 05/01/2019 12:00:00 AM EST [facility] ([facility] Office Visit, Est Pt., Level 2 FC 04/30/2019 12:00:00 AM EST [email or web address] ([facility]) GLUC BLD GLUC MNTR DEV CLEARED FDA SPEC HOME USE POCT GLUCOSE Routine 04/25/2019 1:04 PM EST 04/25/2019 06:04:00 PM EST [facility] GLUC BLD GLUC MNTR DEV CLEARED FDA SPEC HOME USE POCT GLUCOSE Routine 04/25/2019 9:10 AM EST 04/25/2019 02:10:00 PM EST [facility] ECG ROUTINE ECG W/LEAST 12 LDS TRCG ONLY W/O I&R ECG 12-LEAD Routine 04/25/2019 5:31 AM EST 04/25/2019 10:31:30 AM EST [facility] CMB CMB Routine 04/25/2019 2:19 AM EST 04/25/19 07:19:00 AM EST [facility] BLOOD COUNT COMPLETE AUTO&AUTO DIFRNTL WBC COUNT CBC AND DIFFER ENTIAL Timed 04/25/2019 2:19 AM EST 04/25/2019 07:19:00 AM EST [facility] CREATINE KINASE MB FRACTION ONLY CKMB Routine 04/25/2019 2:19 AM EST 04/25/2019 07:19:00 AM EST [facility] BASIC METABOLIC PANEL CALCIUM TOTAL BASIC METABOLIC PANEL Timed 04/25/2019 2:19 AM EST 04/25/2019 07:19:00 AM [facility] GLUC BLD GLUC MNTR DEV CLEARED FDA SPEC HOME USE POCT GLUCOSE Routine 04/24/2019 5:43 PM EST 04/24/2019 10:43:00 PM EST [facility] GLUC BLD GLUC MNTR DEV CLEARED FDA SPEC HOME USE POCT GLUCOSE Routine 04/24/2019 11:21 AM EST 04/24/2019 04:21:00 PM EST [facility] ECG ROUTINE ECG W/LEAST 12 LDS TRCG ONLY W/O I&R ECG 12-LEAD Routine 04/24/2019 10:28 AM EST 04/24/2019 03:28:01 PM EST [facility] GLUC BLD GLUC MNTR DEV CLEARED FDA SPEC HOME USE POCT GLUCOSE Routine 04/24/2019 10:23 AM EST 04/24/2019 03:23:00 PM EST [facility] INSJ IMPLANTABLE INTRA-ARTERIAL INFUSION PUM CARDIAC CATHETERIZ ATION Routine 04/24/2019 9:47 AM EST NSTEMI (non-ST elevated myocardial infarction) 04/24/2019 02 :47:11 PM EST NSTEMI (non-ST elevated myocardial infarction) [facility] NSTEMI (non-ST elevated myocardial infar ction) BLOOD COUNT COMPLETE AUTO&AUTO DIFRNTL WBC COUNT CBC AND DIFFER ENTIAL Timed 04/24/2019 2:42 AM EST 04/24/2019 07:42:00 AM EST [facility] BASIC METABOLIC PANEL CALCIUM TOTAL BASIC METABOLIC PANEL Timed 04/24/2019 2:42 AM EST 04/24/2019 07:42:00 AM EST [facility] GLUC BLD GLUC MNTR DEV CLEARED FDA SPEC HOME USE POCT GLUCOSE Routine 04/23/2019 5:37 PM EST 04/23/2019 10:37:00 PM EST [facility] GLUC BLD GLUC MNTR DEV CLEARED FDA SPEC HOME USE POCT GLUCOSE Routine 04/23/2019 12:45 PM EST 04/23/2019 05:45:00 PM EST [facility] GLUC BLD GLUC MNTR DEV CLEARED FDA SPEC HOME USE POCT GLUCOSE Routine 04/23/2019 8:23 AM EST 04/23/2019 01:23:00 PM EST [facility] ECG ROUTINE ECG W/LEAST 12 LDS TRCG ONLY W/O I&R ECG 12-LEAD Routine 04/23/2019 4:09 AM EST 04/23/2019 09:09:03 AM [facility] BLOOD COUNT COMPLETE AUTO&AUTO DIFRNTL WBC COUNT CBC AND DIFFER ENTIAL Timed 04/23/2019 2:21 AM EST 04/23/2019 07:21:00 AM EST [facility] LIPOPROTEIN DIRECT MEASUREMENT LDL CHOLESTEROL LDL CHOLESTEROL, DIRECT Add-On 04/23/2019 2:21 AM EST 04/23/2019 07:21:00 AM EST [facility] BASIC METABOLIC PANEL CALCIUM TOTAL BASIC METABOLIC PANEL Timed 04/23/2019 2:21 AM EST 04/23/2019 07:21:00 AM EST [facility] GLUC BLD GLUC MNTR DEV CLEARED FDA SPEC HOME USE POCT GLUCOSE Routine 04/23/2019 1:20 AM EST 04/23/2019 06:20:00 AM [facility] GLUC BLD GLUC MNTR DEV CLEARED FDA SPEC HOME USE POCT GLUCOSE Routine 04/22/2019 7:03 PM EST 04/23/2019 12:03:00 AM [facility] BLOOD COUNT COMPLETE AUTOMATED CBC STAT 04/22/2019 4:56 P M EST 04/22/2019 09:56:00 PM [facility] TROPONIN QUANTITATIVE TROPONIN I STAT 04/22/2019 11:55 AM EST 04/22/2019 04:55:00 PM [facility] GLUC BLD GLUC MNTR DEV CLEARED FDA SPEC HOME USE POCT GLUCOSE Routine 04/22/2019 11:04 AM EST 04/22/2019 04:04:00 PM EST [facility] CARDIAC CATHETERIZATION CARDIAC CATHETERIZATION Routine 04/22/2019 10:24 AM EST NSTEMI (non-ST elevated myocardial infarction) 04/22/2019 03 :24:40 PM EST NSTEMI (non-ST elevated myocardial infarction) [facility] NSTEMI (non-ST elevated myocardial infar ction) WOUND OSTOMY EVAL AND TREAT WOUND OSTOMY EVAL AND TREAT Routine 04/22/2019 8:25 AM EST 04/22/2019 01:25:25 PM [facility] ECG ROUTINE ECG W/LEAST 12 LDS W/I&R ECG 12-LEAD Routine 04/22/2019 7:58 AM EST 04/22/2019 12:58:32 PM [facility] TROPONIN QUANTITATIVE TROPONIN I Timed 04/22/2019 7:30 AM EST 04/22/2019 12:30:00 PM [facility] BASIC METABOLIC PANEL CALCIUM TOTAL BASIC METABOLIC PANEL Add-O n 04/22/2019 7:30 AM EST 04/22/2019 12:30:00 PM [facility] ECG ROUTINE ECG W/LEAST 12 LDS TRCG ONLY W/O I&R ECG 12-LEAD STAT 04/22/2019 6:29 AM EST 04/22/2019 11:29:01 AM [facility] NT PRO BNP NT PRO BNP Routine 04/22/2019 4:00 AM EST 04/22/2019 09:00:00 AM [facility] TROPONIN QUANTITATIVE TROPONIN I Timed 04/22/2019 4:00 AM EST 04/22/2019 09:00:00 AM [facility] THROMBOPLASTIN TIME PARTIAL PLASMA/WHOLE BLOOD APTT Routine 04/22/2019 4:00 AM EST 04/22/2019 09:00:00 AM [facility] PROTHROMBIN TIME PROTIME-INR Routine 04/22/2019 4:00 AM EST 04/22/2019 09:00:00 AM [facility] BLOOD COUNT COMPLETE AUTO&AUTO DIFRNTL WBC COUNT CBC AND DIFFER ENTIAL STAT 04/22/2019 4:00 AM EST 04/22/2019 09:00:00 AM [facility] BLOOD TYPING ABO TYPE AND SCREEN Routine 04/22/2019 4:00 AM EST 04/22/2019 09:00:00 AM EST [facility] MAGNESIUM MAGNESIUM Routine 04/22/2019 4:00 AM EST 04/22/2019 09:00:00 AM [facility] LIPOPROTEIN DIRECT MEASUREMENT LDL CHOLESTEROL LDL CHOLESTEROL, DIRECT Routine 04/22/2019 4:00 AM EST 04/22/2019 09:00:00 AM [facility] LIPASE LIPASE Add-On 04/22/2019 4:00 AM EST 04/22/20 19 09:00:00 AM [facility] HEMOGLOBIN GLYCOSYLATED A1C HEMOGLOBIN A1C Routine 04/22/2019 4:00 AM EST 04/22/2019 09:00:00 AM [facility] LIPID PANEL LIPID PANEL Routine 04/22/2019 4:00 AM EST 04/22/2019 09:00:00 AM [facility] COMPREHENSIVE METABOLIC PANEL COMPREHENSIVE METABOLIC PANEL STA T 04/22/2019 4:00 AM EST 04/22/2019 09:00:00 AM [facility] ECG ROUTINE ECG W/LEAST 12 LDS TRCG ONLY W/O I&R ECG 12-LEAD STAT 04/22/2019 3:39 AM EST 04/22/2019 08:39:04 AM [facility] DEBRIDEMENT OPEN WOUND 20 SQ CM/< 04/09/2019 12:00:00 AM EST [facility] ([facility] DEBRIDEMENT OPEN WOUND 20 SQ CM/< 03/26/2019 12:00:00 AM EST [facility] ([facility] Results ID Date Data Source [id number] 04/23/2020 07:03:00 PM [facility] Patient: MIREILLE RODAS Report - [facility].VisitID: [id number] [place] [address] [phone], FRegistration Date/Time: 04/23/2020 13:27 Weight:58.9 kg (S). Height/Length:62 inches (S). BMI:23.8 PAST HISTORYProblems:Coronary Artery Disease [Chronic].Anxiety Reaction [Chronic].Aneurysm (brain X2) [Chronic]. (Left side )Acute Coronary Syndrome [Chronic].Gastroesophageal Reflux [Chronic].Hypertension [Chronic].Hypercholesterolemia [Chronic].Neuropathy [Chronic].Heart Disease [Chronic].Diabetes Mellitus Type 2 [Chronic].Heart Disease.Head Injury.Acute Pain.Abnormal Test.Diabetes Mellitus.Contusion.Myofascial Strain.Laceration.Neck Pain.Rib Fracture.Subdural intracranial hemorrhage (disorder).Hypomagnesemia.Hypertension.Weakness.Upper Extremity Pain.Vertigo [Intermittent].Dizziness [Intermittent].Cellulitis [Resolved].GI Bleeding [Resolved].Contusion [Resolved].Atypical Chest Pain [Resolved].Peripheral Vascular Disease [Resolved].Laceration [Resolved].Epistaxis [Resolved]. Additional Surgeries:Breast Biopsy.Cardiac Catheterization.Cardiac stents. (6 stents in September 2019 , 9 stents in march 2019 )Cataract Surgery.Cholecystectomy.Hysterectomy.Oophorectomy. (Unilateral)Stent in right leg.Tubal Ligation. Medications:Aspirin Oral (Tablet Chewable 81 mg) 1 tablet, daily every AM, last dose today . Atorvastatin Calcium Oral (Tablet 80 mg) 1 tablet, daily, last dose yesterday .Brilinta Oral (Tablet 90 mg) 1 tablet, 2x a day, last dose yest.Carvedilol Phosphate ER Oral 12.5mg , 2x a day every AM, every PM, last dose today .DULoxetine HCl Oral (Capsule Delayed Release Particles 60 mg) 1 capsule, daily, last dose today.Gabapentin Oral (Tablet 800 mg) 1 tablet, daily every PM, last dose today.Iron Oral 65 mg, daily every PM, last dose yesterday.Isosorbide Mononitrate ER Oral (Tablet Extended Release 24 Hour 30 mg) 1 tablet, daily, last dose yest.Magnesium Oral (Capsule 400 mg), daily every AM, every PM, last dose today .metFORMIN HCl Oral (Tablet 1000 mg) 1 tablet, 2x a day, last dose today (takes 1500mg at night , 1000mg in the morning ).Ranolazine ER Oral (Tablet Extended Release 12 Hour 500 mg) 1 tablet, daily every AM, every PM, last dose today .Trandolapril Oral 1/2 tab (unknown dose), daily at bedtime, last dose yesterday .Victoza Subcutaneous (Solution Pen-inj ziggy 18 mg/3mL) 1.8 mg, daily every AM, last dose today . Allergies:No Known Drug Allergy.No Known Environmental Allergies. FAMILY HISTORY(Father: Coronary Artery Disease. Mother: Coronary Artery Disease. Brother(s): Coronary Artery Disease.). (Electronically signed by Victor M Villasenor 04/23/2020 18:59) Name Value Range Interpretation Code Description [facility] Supporting Document(s) ID Date Data Source [id number] 04/23/2020 03:32:00 PM [facility] l TSYSORDER [id number] Name Value Range Interpretation Code Description Data [facility](s) Supporting Document(s) MAGNESIUM 1.2 mg/dL 1.8-2.4 L [facility] ID Date Data Source [id number] 04/23/2020 03:17:00 PM [facility] l TSYSORDER [id number] Name Value Range Interpretation Code Description Data [facility](s) Supporting Document(s) GLUCOSE 156 mg/dL 74-106 H [facility] BLOOD UREA NITROGEN 21 mg/dL 7-18 H [facility] ital CREATININE 1.10 mg/dL 0.6-1.0 H [facility] SODIUM 135 mmol/L 136-145 L [facility] POTASSIUM 4.3 mmol/L 3.5-5.1 [facility] CHLORIDE 95 mmol/L 98-107 L [facility] CO2 24 mmol/L 21-32 [facility] CALCIUM 9.0 mg/dL 8.5-10.1 [facility] ANION GAP 16.0 mmol/L 5-12 H [facility] GLOMERULAR FILTRATION RATE 49 mL/min [facility] GFR IS CALCULATED IN mL/min/1.73m2 MALINDA L FUNCTION: >90MILDLY DECREASED: 60-89MILDY TO MODERATELY DECREASED: 45-59 MODERATELY TO SEVERELY DECREASED: 30-44SEVERELY DECREASED: 15-29RENAL FAILURE: <15 AST 26 U/L 15-37 [facility] ALT 23 U/L 12-78 [facility] ALKALINE PHOSPHATASE 56 U/L 46-116 [facility] TOTAL BILIRUBIN 0.7 mg/dL 0.2-1.0 [facility] TOTAL PROTEIN 7.8 g/dl 6.4-8.2 [facility] ALBUMIN 4.3 gm/dL 3.4-5.0 [facility] ID Date Data Source [id number] 04/23/2020 02:55:00 PM EST [facility] TSYSORDER [id number] Name Value Range Interpretation Code Description Data Marva rce(s) Supporting Document(s) WHITE BLOOD COUNT 7.7 K/mm3 4.0-10.0 [facility] al RED BLOOD COUNT 3.79 M/mm3 4.00-5.50 L [facility] HEMOGLOBIN 11.1 gm/dL 12.0-16.0 L [facility] HEMATOCRIT 34.7 % 36.0-48.8 L [facility] MEAN CELL VOLUME 91.6 fl 80-96 [facility] MEAN CORPUSCULAR HEMOGLOBIN 29.3 pg 27.0-31.0 [facility] MEAN CORPUSCULAR HGB CONC 32.0 g/dl 32.0-36.0 [facility] RED CELL DISTRIBUTION WIDTH 14.8 % 10.0-14.5 H [facility] PLATELET COUNT 222 K/mm3 172-450 [facility] MEAN PLATELET VOLUME 10.2 fl 9.0-13.0 [facility] pital GRAN % 80.6 % 50-80.0 H [facility] IG% 0.3 % 0.0-0.2 H [facility] LYMPH % 13.1 % 25.0-50.0 L [facility] MONO % 4.8 % 2.0-10.0 [facility] EOS % 0.9 % 0-5.0 [facility] BASO % 0.3 % 0.0-2.0 [facility] GRAN # 6.2 K/mm3 2.0-8.00 [facility] IG# 0.0 K/mm3 0.0-0.2 [facility] LYMPH # 1.0 K/mm3 1.0-5.0 [facility] MONO # 0.4 K/mm3 0.10-1.20 [facility] EOS # 0.1 K/mm3 0.0-0.5 [facility] BASO # 0.0 K/mm3 0.0-0.2 [facility] ID Date Data Source CBC with Differential 04/12/2020 12:00:00 AM EST eCW1 ([facility]) Name Value Range Interpretation Code Description Data Marva rce(s) Supporting Document(s) 5.3 4.0-10.0 WHITE BLOOD COUNT eCW1 ([facility] access hospital) 31.9 36.0-47.0 HEMATOCRIT eCW1 ([facility]) 3.35 4.00-5.40 RED BLOOD COUNT eCW1 ([facility]) 95.2 80.0-96.0 MEAN CORPUSCULAR VOLUME e CW1 ([facility]) 9.5 12.0-15.5 HEMOGLOBIN eCW1 ([facility]) 28.4 27.0-33.0 MEAN CORPUSCULAR HEMOGLOB IN eCW1 ([facility]) 29.8 32.0-36.5 MEAN CORPUSCULAR HGB CONC eCW1 ([facility]) 219 150-450 PLATELET COUNT, AUTOMATED eCW1 ([facility]) 15.0 11.5-14.5 RED CELL DISTRIBUTION WID TH eCW1 ([facility]) 3.0 0.0-3.0 EOS % eCW1 ([facility]) 22.2 24.0-44.0 LYMPH % eCW1 ([facility]) 8.6 0.0-5.0 MONO % eCW1 ([facility]) 65.2 36.0-66.0 NEUTROPHILS % eCW1 ([facility]) 3.5 1.5-8.5 NEUTROPHILS # eCW1 ([facility]) 0.5 0.0-0.8 MONO # eCW1 ([facility]) 0.4 0.0-1.0 BASO % eCW1 ([facility]) 1.2 1.5-5.0 LYMPH # eCW1 ([facility]) 0.0 0.0-0.2 BASO # eCW1 ([facility]) 0.2 0.0-0.5 EOS # eCW1 ([facility]) ID Date Data Source [id number] 03/26/2020 11:45:00 AM EST [facility]) Name Value Range Interpretation Code Description Data Marva rce(s) Supporting Document(s) Iron (Fe) 57 ug/dL 50-170 [facility] ([facility]) Percent Saturation 16.7 % 13.2-45.0 [facility] ([facility]) Total Iron Binding Capacity 341 ug/dL 250-450 [facility] (Cardiology [facility]) ID Date Data Source [id number] 03/26/2020 11:45:00 AM EST [facility] ([facility]) Name Value Range Interpretation Code Description Data Marva rce(s) Supporting Document(s) Magnesium [Mass/volume] in Serum or Plasma 1.5 mg/dL 1.8-2.4 [facility] ([facility]iology [facility]) ID Date Data Source [id number] 03/26/2020 11:45:00 AM EST [facility] ([facility]) Name Value Range Interpretation Code Description Data Marva rce(s) Supporting Document(s) Glucose, Fasting 206 mg/dL 70-100 [facility] ([facility]) Blood Urea Nitrogen 20 mg/dL 7-18 [facility] (Ca [facility]) Creatinine For GFR 1.22 mg/dL 0.55-1.30 [facility] ([facility]iology [facility]) Glomerular Filtration Rate 46.1 MED E[facility] ([facility]iology [facility]) <content>Units are mL/min/1.73 m2</content>
<content></content>
<content>Chronic Kidney Disease Staging per NKF:</content>
<content></content>
<content>Stage I & II GFR >=60 Normal to Mildly Decreased</content>
<content>Stage III GFR 30- 59 Moderately Decreased</content>
<content>Stage IV GFR 15-29 Severely Decreased</content>
<content>Stage V GFR <15 Very Little GFR Left</content>
<content>ESRD GFR <15 on COMMUNICATIONS SCIENTIST</content>
<content></content> Sodium Level 137 meq/L 136-145 [facility] ([facility]) Potassium Serum 4.4 meq/L 3.5-5.1 [facility] ([facility]io [facility]y [facility]) Chloride Level 106 meq/L 98-107 [facility] ([facility]iol [facility]gy [facility]) Anion Gap 9 meq/L 8-16 [facility] (Cardiology A [facility]) Calcium Level 9.1 mg/dL 8.8-10.2 [facility] ([facility]iolo gy [facility]) Carbon Dioxide Level 22 meq/L 21-32 [facility] (C [facility]diology [facility]) Alt/SGPT 22 U/L 12-78 [facility] ([facility]iology A [facility]) Ast/Sgot 21 U/L 7-37 [facility] ([facility]iology A [facility]) Alkaline Phosphatase 75 U/L 45-117 [facility] ([facility]) Total Protein 6.7 GM/DL 6.4-8.2 [facility] ([facility]iolo gy [facility]) Bilirubin,Total 0.4 mg/dL 0.2-1.0 [facility] ([facility]io [facility]y [facility]) Albumin 3.5 GM/DL 3.2-5.2 [facility] (Cardiology A [facility]) Albumin/Globulin Ratio 1.1 1.2-2.2 [facility] ([facility]) ID Date Data Source [id number] 03/26/2020 11:45:00 AM EST [facility] ([facility]i [facility]y [facility]) Name Value Range Interpretation Code Description Data Marva rce(s) Supporting Document(s) White Blood Count 8.3 10 4.0-10.0 [facility] ([facility]) Hemoglobin 9.5 g/dL 12.0-15.5 [facility] ([facility]) Red Blood Count 3.31 10 4.00-5.40 [facility] ([facility]) Hematocrit 31.6 % 36.0-47.0 [facility] ([facility]) Mean Corpuscular Volume 95.5 fl 80.0-96.0 M EDENT ([facility]) Mean Corpuscular HGB Conc 30.1 g/dL 32.0-36.5 [facility] ([facility]) Mean Corpuscular Hemoglobin 28.7 pg 27.0-33.0 [facility] ([facility]) Red Cell Distribution Width 15.3 % 11.5-14.5 [facility] ([facility]) Neutrophils % 72.5 % 36.0-66.0 [facility] ([facility]) Platelet Count, Automated 317 10 150-450 [facility] ([facility]) Stone % 7.2 % 0.0-5.0 [facility] [place] Lymph % 16.4 % 24.0-44.0 [facility] [place] Eos % 2.9 % 0.0-3.0 [facility] [place] Baso % 0.5 % 0.0-1.0 [facility] [place] Immature Granulocyte % 0.5 % 0-3.0 [facility] ([facility]) Nucleated Red Blood Cell % 0.0 % 0-0 [facility] ([facility]) Stone # 0.6 10 0.0-0.8 [facility] ([facility] [place] Neutrophils # 6.0 10 1.5-8.5 [facility] ([facility]) Lymph # 1.4 10 1.5-5.0 [facility] [place] Baso # 0.0 10 0.0-0.2 [facility] [place] Eos # 0.2 10 0.0-0.5 [facility] ([facility] [place] ID Date Data Source [id number] 03/23/2020 03:06:00 PM EST [facility] In-Patient NoteNote:LABORATORY TEST REF ERRAL Dx: Atrial Fib with RVR, HYPOMAGNESEMIA LABS:CBC with Diff. Iron ProfileCMPMagnesium Please send the result to [facility] in [place] and Dr Rodriguez's office. Name Value Range Interpretation Code Description Data Marva rce(s) Supporting Document(s) ID Date Data Source [id number] 03/23/2020 06:20:00 AM EST [facility] CHEST, FRONTAL AND LATERAL DATE OF EXAMI NATION: 03/22/2020 20:51 EST CHEST 2 VIEWS INDICATION: Vomiting COMPARISON: 03/11/2020 TECHNIQUE: Frontal and lateral views of the chest were obtained. FINDINGS: There is atherosclerotic change of the aortic arch. The chest wall andmediastinal structures are unremarkable. There is no pleural disease. There is apunctate calcified granuloma in the right lower lobe. The lungs are otherwiseclear. IMPRESSION: No acute pulmonary disease Electronically signed in PS360 by: Ivan Pelletier M.D. 03/23/2020 6:15 EST Name Value Range Interpretation Code Description Data [facility] Supporting Document(s) ID Date Data Source [id number] 03/23/2020 06:17:00 AM EST [facility] ABDOMEN DATE OF EXAMINATION: 03/22/2020 20:51 EST ABDOMEN FLAT/UPRIGHT INDICATION: Vomiting COMPARISON: None TECHNIQUE: AP Supine views of the abdomen were obtained. FINDINGS: There is a large amount of stool throughout the colon. There is nodilated bowel. No evidence of free air or free fluid. No abnormal soft tissuemass lesions are identified. There are no pathological calcifications. IMPRESSION: There is a large amount of stool throughout the colon. There is nodilated bowel. Electronically signed in [id number] by: Ivan Pelletier M.D. 03/23/2020 6:11 EST Name Value Range Interpretation Code Description Data [facility] rce(s) Supporting Document(s) ID Date Data Source [id number] 03/25/2020 11:53:00 AM EST [facility] Name Value Range Interpretation Code Description Data [facility] rce(s) Supporting Document(s) [facility] ID Date Data Source [id number] 03/23/2020 01:58:00 AM EST [facility] TSYSORDER [id number] Name Value Range Interpretation Code Description Data Marva rce(s) Supporting Document(s) URINE RBC 1-3 /hpf 0-3 [facility] URINE WBC 3-5 /hpf 0-5 [facility] URINE EPITHELIAL CELLS 1+ /hpf [address] [facility]ital URINE BACTERIA 2+ NONE SEEN [facility] URINE CULTURE ORDERED ID Date Data Source [id number] 03/23/2020 01:47:00 AM [facility] ital TSYSORDER [id number] Name Value Range Interpretation Code Description Data Marva rce(s) Supporting Document(s) URINE COLOR. [facility] URINE APPEARANCE CLEAR [facility] l URINE GLUCOSE (UA) NEGATIVE mg/dL NEGATIVE [facility] URINE BILIRUBIN NEGATIVE NEGATIVE [facility] URINE KETONE NEGATIVE mg/dL NEGATIVE [facility] SPECIFIC GRAVITY,URINE 1.020 1.001-1.035 [facility] URINE BLOOD NEGATIVE NEGATIVE [facility] PH,URINE 5.5 5.0-9.0 [facility] URINE PROTEIN 2+(100) mg/dL NEGATIVE [facility] URINE UROBILINOGEN NORMAL(0.2-1) mg/dL 0-1 [facility] URINE NITRATE NEGATIVE NEGATIVE [facility] URINE LEUKOCYTE ESTERASE 1+(SMALL) NEGATIVE [facility] ID Date Data Source [id number] 03/22/2020 10:49:00 PM EST [facility] Name Value Range Interpretation Code Description Data Marva rce(s) Supporting Document(s) COVID-19 [facility] This lab was ordered by [facility] and reported by [facility]. ID Date Data Source [id number] 03/22/2020 11:21:00 PM [facility] TSYS[facility] [id number] Name Value Range Interpretation Code Description Data Marva rce(s) Supporting Document(s) COVID-19 NEGATIVE NEGATIVE [facility] Negative results should be treated as pr esumptive and, ifinconsistent with clinical signs and symptoms or necessaryfor patient management, should be tested with differentauthorized or cleared molecular tests.Negative results do not preclude SARS-CoV-2 infection andshould not be used as the sole basis for patient managementdecisions.This is a rapid molecular in vitro diagnostic test utilizingan isothermal nucleic acid amplification technology intendedfor the qualitative detection of nucleic acid from the SARS-CoV-2 viral RNA in direct nasal, nasopharyngeal orthroat swabs from individuals who are suspected of COVID-19.Results are for the indentification of SARS-CoV-2 RNA. YmnUPOX-VdZ-4 RNA is generally detectable in respiratorysamples during the actue phase of infection. ID Date Data Source [id number] 03/22/2020 11:10:00 PM EST [facility] TSYSORDER [id number] Name Value Range Interpretation Code Description Data Marva rce(s) Supporting Document(s) PHOSPHOROUS 2.8 mg/dL 2.5-4.9 [facility] ID Date Data Source [id number] 03/22/2020 09:31:00 PM [facility] l TSYSORDER [id number] Name Value Range Interpretation Code Description Data Marva rce(s) Supporting Document(s) MAGNESIUM 1.2 mg/dL 1.8-2.4 L [facility] ID Date Data Source [id number] 03/22/2020 09:31:00 PM [facility] l TSYSORDER [id number] Name Value Range Interpretation Code Description Data Marva rce(s) Supporting Document(s) TROPONIN I 0.052 ng/mL 0.0-0.056 [facility] ID Date Data Source [id number] 03/22/2020 09:31:00 PM [facility] l TSYSORDER [id number] Name Value Range Interpretation Code Description Data Marva rce(s) Supporting Document(s) LIPASE 82 U/L 73-393 [facility] ID Date Data Source [id number] 03/22/2020 09:31:00 PM [facility] l TSYSORDER [id number] Name Value Range Interpretation Code Description Data Marva rce(s) Supporting Document(s) GLUCOSE 126 mg/dL 74-106 H [facility] BLOOD UREA NITROGEN 13 mg/dL 7-18 [facility] ital CREATININE 1.1 mg/dL 0.6-1.0 H [facility] SODIUM 134 mmol/L 136-145 L [facility] POTASSIUM 3.5 mmol/L 3.5-5.1 [facility] CHLORIDE 98 mmol/L 98-107 [facility] CO2 22 mmol/L 21-32 [facility] CALCIUM 9.4 mg/dL 8.5-10.1 [facility] ANION GAP 14.0 mmol/L 5-12 H [facility] GLOMERULAR FILTRATION RATE 49 mL/min [facility] GFR IS CALCULATED IN mL/min/1.73m2 MALINDA L FUNCTION: >90MILDLY DECREASED: 60-89MILDY TO MODERATELY DECREASED: 45-59 MODERATELY TO SEVERELY DECREASED: 30-44SEVERELY DECREASED: 15-29RENAL FAILURE: <15 AST 23 U/L 15-37 [facility] ALT 17 U/L 12-78 [facility] ALKALINE PHOSPHATASE 69 U/L 46-116 [facility] pital TOTAL BILIRUBIN 0.7 mg/dL 0.2-1.0 [facility] TOTAL PROTEIN 7.6 g/dl 6.4-8.2 [facility] ALBUMIN 3.5 gm/dL 3.4-5.0 [facility] ID Date Data Source [id number] 03/22/2020 09:29:00 PM [facility] TSYSORDER [id number] Name Value Range Interpretation Code Description Data Marva rce(s) Supporting Document(s) PARTIAL THROMBOPLASTIN TIME 23.6 SECONDS 21.2-27.3 [facility] ID Date Data Source [id number] 03/22/2020 09:29:00 PM [facility] TSYSORDER [id number] Name Value Range Interpretation Code Description Data Marva rce(s) Supporting Document(s) PROTHROMBIN TIME (PATIENT) 11.0 SECONDS 9.1-11.6 [facility] INR 1.06 0.87-1.06 [facility] ID Date Data Source [id number] 03/22/2020 09:04:00 PM [facility] TSYSORDER [id number] Name Value Range Interpretation Code Description Data Marva rce(s) Supporting Document(s) WHITE BLOOD COUNT 9.1 K/mm3 4.0-10.0 [facility] RED BLOOD COUNT 3.47 M/mm3 4.00-5.50 L [facility] HEMOGLOBIN 10.2 gm/dL 12.0-16.0 [facility] HEMATOCRIT 30.8 % 36.0-48.8 L [facility] MEAN CELL VOLUME 88.8 fl 80-96 [facility] MEAN CORPUSCULAR HEMOGLOBIN 29.4 pg 27.0-31.0 [facility] MEAN CORPUSCULAR HGB CONC 33.1 g/dl 32.0-36.0 [facility] RED CELL DISTRIBUTION WIDTH 14.9 % 10.0-14.5 H [facility] PLATELET COUNT 287 K/mm3 172-450 [facility] MEAN PLATELET VOLUME 9.9 fl 9.0-13.0 [facility] pital GRAN % 82.1 % 50-80.0 H [facility] IG% 0.3 % 0.0-0.2 H [facility] LYMPH % 9.4 % 25.0-50.0 L [facility] MONO % 5.9 % 2.0-10.0 [facility] EOS % 2.2 % 0-5.0 [facility] BASO % 0.1 % 0.0-2.0 [facility] GRAN # 7.4 K/mm3 2.0-8.00 [facility] IG# 0.0 K/mm3 0.0-0.2 [facility] LYMPH # 0.9 K/mm3 1.0-5.0 L [facility] MONO # 0.5 K/mm3 0.10-1.20 [facility] EOS # 0.2 K/mm3 0.0-0.5 [facility] BASO # 0.0 K/mm3 0.0-0.2 [facility] ID Date Data Source [id number] 03/22/2020 09:16:00 AM EST [facility] ([facility]) Name Value Range Interpretation Code Description Data Marva rce(s) Supporting Document(s) Albumin [Mass/volume] in Serum or Plasma 3.5 [facility] ([facility]) Alanine aminotransferase [Enzymatic activity/volume] in Serum or Pl asma 17 [facility] ([facility]) Carbon dioxide, total [Moles/volume] in Serum or Plasma 22 [facility] ([facility]) Calcium [Mass/volume] in Serum or Plasma 9.4 [facility] ([facility]) Chloride [Moles/volume] in Serum or Plasma 98 [facility] ([facility]) Potassium [Moles/volume] in Serum or Plasma 3.5 [facility] ([facility]) Protein [Mass/volume] in Serum or Plasma 7.6 [facility] ([facility]) Alkaline phosphatase [Enzymatic activity/volume] in Serum or Plasma 6 9 [facility] ([facility]) Aspartate aminotransferase [Enzymatic activity/volume] in Serum or Plasma 23 [facility] ([facility]) Sodium 134 [facility] Urea nitrogen [Mass/volume] in Serum or Plasma 13 [facility] ([facility]) Glucose 126 74-106 [facility] Creatinine For GFR 1.1 [facility] ([facility]) ID Date Data Source [id number] 03/22/2020 09:16:00 AM EST [facility] ([facility]) Name Value Range Interpretation Code Description Data Marva rce(s) Supporting Document(s) White Blood Count 9.1 4.0-10.0 [facility] ([facility]) Red Blood Count 3.47 4.00-5.50 [facility] ([facility]) Platelets 287 172-450 [facility] Hemoglobin 10.2 12.0-16.0 [facility] ([facility]) Hematocrit 30.8 36.0-48.8 [facility] ([facility]) ID Date Data Source [id number] 03/14/2020 09:29:00 AM EST [facility] DATE OF EXAMINATION: 03/13/2020 22:06 ES T PELVIS W/O IV CONTRAST, CHEST W/O IV CONTRAST, UPPER EXTREM W/O IV CONTRAST HISTORY: Fall This CT exam was performed using the following dose reduction techniques:automated exposure control, adjustment of mA and/or kV according to thepatient's size, and use of iterative reconstruction technique. Standard contiguous axial spiral imaging was obtained without contrastadministration and with coronal reformatting. Stomach and bowel: The visualized intestine is normal in appearance.Bladder: There is moderate distention of the urinary bladder.Reproductive: Normal. Spine and pelvis: There is no fracture or subluxation. Degenerative change ispresent. Stranding is present in the lateral and posterior subcutaneous tissue overlyingthe left hip and pelvis. IMPRESSION: 1. There is no fracture or subluxation.2. There is stranding in the subcutaneous tissue lateral and posterior to theleft hip and pelvis consistent with edema. CT CHEST: LUNGS: Emphysematous change is present. Calcified granulomas are present in thelungs. A 5 mm parenchymal nodule is present in the right upper lobe seen inimage #51. A 6 mm parenchymal nodule is present in the left lower lobe seen inimage #53. Parenchymal densities are present in the left lower lobe consistentwith atelectasis or infiltrate.Pleural space: There is no pleural effusion.Heart: Cardiomegaly:Aorta: Calcified atherosclerotic plaques are present. There is no aneurysm.Mediastinum: There is no mediastinal mass.A small hiatal hernia is present.The patient is status post cholecystectomySpine: Degenerative change is present in the spine. There are fractures of the left fifth and sixth ribs. There is no pneumothorax.. IMPRESSION:1. Emphysematous change is present in the lungs.2. Findings consistent with old granulomatous disease.3. There are are small parenchymal nodules in the right upper lobe and leftlower lobe as described above. A repeat chest CT may be helpful for furtherevaluation if clinically indicated.4. Cardiomegaly.5. Small hiatal hernia.6. Fractures of the left fifth and [address] left upper extremity: There is mild narrowing of the glenohumeral and acromioclavicular joints withassociated osteophyte formation. Osteophyte is present on the medial aspect ofthe head of the humerus. There are fractures of the left fifth and sixth ribs.There is no pneumothorax. A 6 mm parenchymal nodule is present in the left lowerlobe. Parenchymal density is present in the left lower lobe consistent withatelectasis or infiltrate. IMPRESSION: 1. Fractures of the left fifth and sixth ribs. There is no pneumothorax.2. Degenerative change as described above.3. Lung findings as described above. Please refer to CT of the chest performedthis same date. Electronically signed in PS360 by: Evaristo Estrada M.D. 03/14/2020 9:23 EST Name Value Range Interpretation Code Description Data Marva rce(s) Supporting Document(s) ID Date Data Source [id number] 03/14/2020 09:29:00 AM EST [facility] DATE OF EXAMINATION: 03/13/2020 22:06 ES T PELVIS W/O IV CONTRAST, CHEST W/O IV CONTRAST, UPPER EXTREM W/O IV CONTRAST HISTORY: Fall This CT exam was performed using the following dose reduction techniques:automated exposure control, adjustment of mA and/or kV according to thepatient's size, and use of iterative reconstruction technique. Standard contiguous axial spiral imaging was obtained without contrastadministration and with coronal reformatting. Stomach and bowel: The visualized intestine is normal in appearance.Bladder: There is moderate distention of the urinary bladder.Reproductive: Normal. Spine and pelvis: There is no fracture or subluxation. Degenerative change ispresent. Stranding is present in the lateral and posterior subcutaneous tissue overlyingthe left hip and pelvis. IMPRESSION: 1. There is no fracture or subluxation.2. There is stranding in the subcutaneous tissue lateral and posterior to theleft hip and pelvis consistent with edema. CT CHEST: LUNGS: Emphysematous change is present. Calcified granulomas are present in thelungs. A 5 mm parenchymal nodule is present in the right upper lobe seen inimage #51. A 6 mm parenchymal nodule is present in the left lower lobe seen inimage #53. Parenchymal densities are present in the left lower lobe consistentwith atelectasis or infiltrate.Pleural space: There is no pleural effusion.Heart: Cardiomegaly:Aorta: Calcified atherosclerotic plaques are present. There is no aneurysm.Mediastinum: There is no mediastinal mass.A small hiatal hernia is present.The patient is status post cholecystectomySpine: Degenerative change is present in the spine. There are fractures of the left fifth and sixth ribs. There is no pneumothorax.. IMPRESSION:1. Emphysematous change is present in the lungs.2. Findings consistent with old granulomatous disease.3. There are are small parenchymal nodules in the right upper lobe and leftlower lobe as described above. A repeat chest CT may be helpful for furtherevaluation if clinically indicated.4. Cardiomegaly.5. Small hiatal hernia.6. Fractures of the left fifth and [address] left upper extremity: There is mild narrowing of the glenohumeral and acromioclavicular joints withassociated osteophyte formation. Osteophyte is present on the medial aspect ofthe head of the humerus. There are fractures of the left fifth and sixth ribs.There is no pneumothorax. A 6 mm parenchymal nodule is present in the left lowerlobe. Parenchymal density is present in the left lower lobe consistent withatelectasis or infiltrate. IMPRESSION: 1. Fractures of the left fifth and sixth ribs. There is no pneumothorax.2. Degenerative change as described above.3. Lung findings as described above. Please refer to CT of the chest performedthis same date. Electronically signed in PS360 by: Evaristo Estrada M.D. 03/14/2020 9:23 EST Name Value Range Interpretation Code Description Data Marva rce(s) Supporting Document(s) ID Date Data Source [id number] 03/14/2020 09:29:00 AM EST [facility] DATE OF EXAMINATION: 03/13/2020 22:06 ES T PELVIS W/O IV CONTRAST, CHEST W/O IV CONTRAST, UPPER EXTREM W/O IV CONTRAST HISTORY: Fall This CT exam was performed using the following dose reduction techniques:automated exposure control, adjustment of mA and/or kV according to thepatient's size, and use of iterative reconstruction technique. Standard contiguous axial spiral imaging was obtained without contrastadministration and with coronal reformatting. Stomach and bowel: The visualized intestine is normal in appearance.Bladder: There is moderate distention of the urinary bladder.Reproductive: Normal. Spine and pelvis: There is no fracture or subluxation. Degenerative change ispresent. Stranding is present in the lateral and posterior subcutaneous tissue overlyingthe left hip and pelvis. IMPRESSION: 1. There is no fracture or subluxation.2. There is stranding in the subcutaneous tissue lateral and posterior to theleft hip and pelvis consistent with edema. CT CHEST: LUNGS: Emphysematous change is present. Calcified granulomas are present in thelungs. A 5 mm parenchymal nodule is present in the right upper lobe seen inimage #51. A 6 mm parenchymal nodule is present in the left lower lobe seen inimage #53. Parenchymal densities are present in the left lower lobe consistentwith atelectasis or infiltrate.Pleural space: There is no pleural effusion.Heart: Cardiomegaly:Aorta: Calcified atherosclerotic plaques are present. There is no aneurysm.Mediastinum: There is no mediastinal mass.A small hiatal hernia is present.The patient is status post cholecystectomySpine: Degenerative change is present in the spine. There are fractures of the left fifth and sixth ribs. There is no pneumothorax.. IMPRESSION:1. Emphysematous change is present in the lungs.2. Findings consistent with old granulomatous disease.3. There are are small parenchymal nodules in the right upper lobe and leftlower lobe as described above. A repeat chest CT may be helpful for furtherevaluation if clinically indicated.4. Cardiomegaly.5. Small hiatal hernia.6. Fractures of the left fifth and [address] left upper extremity: There is mild narrowing of the glenohumeral and acromioclavicular joints withassociated osteophyte formation. Osteophyte is present on the medial aspect ofthe head of the humerus. There are fractures of the left fifth and sixth ribs.There is no pneumothorax. A 6 mm parenchymal nodule is present in the left lowerlobe. Parenchymal density is present in the left lower lobe consistent withatelectasis or infiltrate. IMPRESSION: 1. Fractures of the left fifth and sixth ribs. There is no pneumothorax.2. Degenerative change as described above.3. Lung findings as described above. Please refer to CT of the chest performedthis same date. Electronically signed in PS360 by: Evaristo Estrada M.D. 03/14/2020 9:23 EST Name Value Range Interpretation Code Description Data [facility](s) Supporting Document(s) ID Date Data Source [id number] 03/14/2020 03:39:00 AM EST [facility] Patient: MIREILLE RODAS Roshni pavon Report - [facility].VisitID: [id number] [place] [address] [phone], FRegistration Date/Time: 03/13/2020 21:40 Weight:58.9 kg (S). Height/Length:62 inches (S). BMI:23.8 FAMILY HISTORYNo significant family medical history. (Electronically signed by Nico Quesada M.D. 03/14/2020 03:14) Name Value Range Interpretation Code Description Data [facility](s) Supporting Document(s) ID Date Data Source [id number] 03/13/2020 10:27:00 PM EST [facility] TSYSORDER [id number] Name Value Range Interpretation Code Description Data [facility](s) Supporting Document(s) GLUCOSE 163 mg/dL 74-106 [facility] BLOOD UREA NITROGEN 36 mg/dL 7-18 H [facility] ital CREATININE 1.5 mg/dL 0.6-1.0 [facility] SODIUM 137 mmol/L 136-145 [facility] POTASSIUM 4.6 mmol/L 3.5-5.1 [facility] CHLORIDE 101 mmol/L 98-107 [facility] CO2 23 mmol/L 21-32 [facility] CALCIUM 8.7 mg/dL 8.5-10.1 [facility] ANION GAP 13.0 mmol/L 5-12 H [facility] GLOMERULAR FILTRATION RATE 34 mL/min [facility] GFR IS CALCULATED IN mL/min/1.73m2 MALINDA L FUNCTION: >90MILDLY DECREASED: 60-89MILDY TO MODERATELY DECREASED: 45-59 MODERATELY TO SEVERELY DECREASED: 30-44SEVERELY DECREASED: 15-29RENAL FAILURE: <15 AST 19 U/L 15-37 [facility] ALT 17 U/L 12-78 [facility] ALKALINE PHOSPHATASE 54 U/L 46-116 [facility] pital TOTAL BILIRUBIN 0.3 mg/dL 0.2-1.0 [facility] TOTAL PROTEIN 6.7 g/dl 6.4-8.2 [facility] ALBUMIN 3.6 gm/dL 3.4-5.0 [facility] ID Date Data Source [id number] 03/13/2020 10:27:00 PM [facility] TSYSORDER [id number] Name Value Range Interpretation Code Description [facility] TROPONIN I 0.027 ng/mL 0.0-0.056 [facility] ID Date Data Source [id number] 03/13/2020 10:03:00 PM [facility] TSYSORDER [id number] Name Value Range Interpretation Code Description Data Marva rce(s) Supporting Document(s) WHITE BLOOD COUNT 5.1 K/mm3 4.0-10.0 [facility]LOOD [facility] 2.94 M/mm3 4.00-5.50 L [facility] HEMOGLOBIN 8.6 gm/dL 12.0-16.0 [facility] HEMATOCRIT 27.5 % 36.0-48.8 L [facility] MEAN CELL VOLUME 93.5 fl 80-96 [facility] MEAN CORPUSCULAR HEMOGLOBIN 29.3 pg 27.0-31.0 [facility] MEAN CORPUSCULAR HGB CONC 31.3 g/dl 32.0-36.0 L [facility] RED CELL DISTRIBUTION WIDTH 14.7 % 10.0-14.5 H [facility] PLATELET COUNT 199 K/mm3 172-450 [facility] MEAN PLATELET VOLUME 10.4 fl 9.0-13.0 [facility] pital GRAN % 67.1 % 50-80.0 [facility] IG% 0.6 % 0.0-0.2 H [facility] LYMPH % 20.2 % 25.0-50.0 L [facility] MONO % 8.4 % 2.0-10.0 [facility] EOS % 3.5 % 0-5.0 [facility] BASO % 0.2 % 0.0-2.0 [facility] GRAN # 3.4 K/mm3 2.0-8.00 [facility] IG# 0.0 K/mm3 0.0-0.2 [facility] LYMPH # 1.0 K/mm3 1.0-5.0 [facility] MONO # 0.4 K/mm3 0.10-1.20 [facility] EOS # 0.2 K/mm3 0.0-0.5 [facility] BASO # 0.0 K/mm3 0.0-0.2 [facility] ID Date Data Source [id number] 03/11/2020 06:38:00 PM [facility] l Patient: MIREILLE RODAS Roshni pavon Report - [facility].VisitID: [id number] [place] [address] [phone], FRegistration Date/Time: 03/11/2020 12:02 Weight:63.5 kg (S). Height/Length:62 inches (S). BMI:25.6 PAST HISTORYProblems:Neuropathy [Chronic].Acute Coronary Syndrome [Chronic].Anxiety Reaction [Chronic].Aneurysm (brain X2) [Chronic]. (Left side )Hypertension [Chronic].Hypercholesterolemia [Chronic].Heart Disease [Chronic].Coronary Artery Disease [Chronic].Diabetes Mellitus Type 2 [Chronic].Gastroesophageal Reflux [Chronic].Head Injury.Heart Disease.Diabetes Mellitus.Contusion.Hypomagnesemia.Hypertension.Laceration.Subdural intracranial hemorrhage (disorder).Weakness.Neck Pain.Vertigo [Intermittent].Dizziness [Intermittent].Laceration [Resolved].Contusion [Resolved].GI Bleeding [Resolved].Epistaxis [Resolved].Cellulitis [Resolved].Atypical Chest Pain [Resolved].Peripheral Vascular Disease [Resolved]. Additional Surgeries:Breast Biopsy.Cardiac Catheterization.Cardiac stents. (6 stents in September 2019 , 9 stents in march 2019 )Cataract Surgery.Cholecystectomy.Hysterectomy.Oophorectomy. (Unilateral)Stent in right leg.Tubal Ligation. Medications:Aspirin Oral (Tablet Chewable 81 mg) 1 tablet, daily every AM, last dose today .Atorvastatin Calcium Oral (Tablet 80 mg) 1 tablet, daily, last dose yesterday .Brilinta Oral (Tablet 90 mg) 1 tablet, 2x a day, last dose today .Carvedilol Phosphate ER Oral 12.5mg , 2x a day every AM, every PM, last dose today .DULoxetine HCl Oral (Capsule Delayed Release Particles 60 mg) 1 capsule, daily, last dose yesterday .Gabapentin Oral (Tablet 800 mg) 1 tablet, daily every PM, last dose yesterday .Iron Oral 65 mg, daily every PM, last dose yesterday.Isosorbide Mononitrate ER Oral (Tablet Extended Release 24 Hour 30 mg) 1 tablet, daily, last dose today .Levemir Subcutaneous 25 units, daily, last dose yesterday .Magnesium Oral (Capsule 400 mg), daily every AM, every PM, last dose today .metFORMIN HCl Oral (Tablet 1000 mg) 1 tablet, 2x a day, last dose today (takes 1500mg at night , 1000mg in the morning ).Ranolazine ER Oral (Tablet Extended Release 12 Hour 500 mg) 1 tablet, daily every AM, every PM, last dose today .Trandolapril Oral 1/2 tab (unknown dose), daily at bedtime, last dose yesterday .Victoza Subcutaneous (Solution Pen-injector 18 mg/3mL) 1.8 mg, daily every AM, last dose today . Allergies:No Known Drug Allergy.No Known Environmental Allergies. FAMILY HISTORYNegative. No significant family medical history. (Electronically signed by Victor M Villasenor 03/11/2020 17:58) Name Value Range Interpretation Code Description Data Marva rce(s) Supporting Document(s) ID Date Data Source [id number] 03/11/2020 01:14:00 PM EST [facility] DATE OF EXAMINATION: 03/11/2020 12:31 ES T TECHNIQUE: 3 views of the thoracic spine were obtained. HISTORY: Pain FINDINGS: Bones are mildly osteopenic. Moderate degenerative changes are seen at alllevels. There is no definite acute fracture or subluxation. Minimal anteriorwedging of T12 is unchanged since prior plain radiographs of 2018 IMPRESSION: Mild osteopenia moderate degenerative changes. Electronically signed in PS360 by: Jennyfer Hanna M.D. 03/11/2020 13:08 EST Name Value Range Interpretation Code Description Data Marva rce(s) Supporting Document(s) ID Date Data Source [id number] 03/11/2020 01:12:00 PM EST [facility] DATE OF EXAMINATION: 03/11/2020 12:31 ES T TECHNIQUE: 2 views of the left hip were obtained. HISTORY: Fall FINDINGS: Bones are mildly osteopenic. Moderate osteoarthritic changes are identified.There is no fracture or dislocation. IMPRESSION: Mild osteopenia moderate osteoarthritis. Moderate arterial calcification. Electronically signed in PS360 by: Jennyfer Hanna M.D. 03/11/2020 13:07 EST Name Value Range Interpretation Code Description Data [facility] r[facility](s) Supporting Document(s) ID Date Data Source [id number] 03/11/2020 01:11:00 PM EST [facility] DATE OF EXAMINATION: 03/11/2020 12:31 ES T TECHNIQUE: 3 views of the left shoulder were obtained. HISTORY: Fall FINDINGS: Bones are mildly osteopenic. Moderate osteoarthritis and findings suggestive ofrotator cuff tear is noted. There is no fracture or dislocation. Includedportions of the left upper lobe appear clear IMPRESSION: Mild osteopenia moderate osteoarthritis. Possibility of rotator cuff tear is raised. Electronically signed in PS360 by: Jennyfer Hanna M.D. 03/11/2020 13:06 EST Name Value Range Interpretation Code Description Data [facility] r[facility](s) Supporting Document(s) ID Date Data Source [id number] 03/11/2020 01:11:00 PM EST [facility] DATE OF EXAMINATION: 03/11/2020 12:31 ES T TECHNIQUE: 4 views of the left ribs were obtained. HISTORY: Fall pain There is a normal alignment and position of the bones of the thorax. Nofractures are identified. No evidence for pneumothorax is noted. IMPRESSION: Unremarkable rib series. Electronically signed in PS360 by: Jennyfer Hanna M.D. 03/11/2020 13:05 EST Name Value Range Interpretation Code Description Data [facility] r[facility](s) Supporting Document(s) ID Date Data Source Basic Metabolic Profile (BMP) 02/26/2020 08:00:08 AM EST eCW 1 ([facility]) Name Value Range Interpretation Code Description Data Marva rce(s) Supporting Document(s) 124 GLUCOSE, FASTING eCW1 ([facility]) 1.24 CREATININE FOR GFR eCW1 ([facility]) 21 BLOOD UREA NITROGEN eCW1 ([facility]) 135 SODIUM LEVEL eCW1 ([facility]) 45.3 GLOMERULAR FILTRATION RATE eCW 1 ([facility]) 4.7 POTASSIUM SERUM eCW1 ([facility]) 103 CHLORIDE LEVEL eCW1 ([facility]) 21 CARBON DIOXIDE LEVEL eCW1 ([facility]) 9.6 CALCIUM LEVEL eCW1 ([facility]) ID Date Data Source [id number] LEVEL 02/26/2020 07:59:29 AM EST eCW1 ([facility]) Name Value Range Interpretation Code Description Data Marva rce(s) Supporting Document(s) 1.6 MAGNESIUM LEVEL eCW1 ([facility]) ID Date Data Source [id number] 02/25/2020 01:00:00 PM EST [facility] ([facility]) Name Value Range Interpretation Code Description Data Marva rce(s) Supporting Document(s) Magnesium Level 1.6 1.8-2.4 [facility] ([facility]) ID Date Data Source [id number] 02/25/2020 01:00:00 PM EST [facility] ([facility]) Name Value Range Interpretation Code Description Data Marva rce(s) Supporting Document(s) Sodium 135 [facility] ([facility]) Calcium [Mass/volume] in Serum or Plasma 9.6 [facility] ([facility]) Potassium [Moles/volume] in Serum or Plasma 4.7 [facility] ([facility]) Carbon dioxide, total [Moles/volume] in Serum or Plasma 21 [facility] ([facility]) Chloride [Moles/volume] in Serum or Plasma 103 [facility] ([facility]) Blood Urea Nitrogen 21 7-18 [facility] Creatinine 1.24 0.55-1.30 [facility] ([facility]) Glucose 124 70-100 [facility] ([facility]) Glomerular filtration rate/1.73 sq M.pre dicted [Volume Rate/Area] in Serum or Plasma by Creatinine-based formula (MDRD) 45.3 [facility] ([facility]) ID Date Data Source [id number] 01/21/2020 12:16:00 PM EDT [facility] Name Value Range Interpretation Code Description Data Marva rce(s) Supporting Document(s) Sodium 134 [facility] ([facility]) Calcium [Mass/volume] in Serum or Plasma 9.2 [facility] ([facility]) Chloride [Moles/volume] in Serum or Plasma 101 [facility] ([facility]) Potassium [Moles/volume] in Serum or Plasma 4.2 [facility] ([facility]) Carbon dioxide, total [Moles/volume] in Serum or Plasma 23 [facility] ([facility]) Glucose 199 70-100 [facility] ([facility]) Blood Urea Nitrogen 25 7-18 [facility] Creatinine 1.24 0.55-1.30 [facility] ([facility]) Glomerular filtration rate/1.73 sq M.pre dicted [Volume Rate/Area] in Serum or Plasma by Creatinine-based formula (MDRD) 45.3 [facility] ([facility]) ID Date Data Source [id number] 01/21/2020 12:16:00 PM EDT [facility] ([facility]) Name Value Range Interpretation Code Description Data Marva rce(s) Supporting Document(s) Magnesium Level 1.5 1.8-2.4 [facility] ([facility]) ID Date Data Source [id number] 01/12/2020 11:27:00 AM EDT [facility] ([facility]) Name Value Range Interpretation Code Description Data Marva rce(s) Supporting Document(s) Sodium 136 [facility] ([facility]) Calcium [Mass/volume] in Serum or Plasma 8.6 [facility] ([facility]) Carbon dioxide, total [Moles/volume] in Serum or Plasma 27 [facility] ([facility]) Potassium [Moles/volume] in Serum or Plasma 4.4 [facility] ([facility]) Chloride [Moles/volume] in Serum or Plasma 104 [facility] ([facility]) Glucose 113 70-100 [facility] ([facility]) Blood Urea Nitrogen 26 7-18 [facility] ([facility]) Creatinine 1.50 0.55-1.30 [facility] ([facility]) Glomerular filtration rate/1.73 sq M.pre dicted [Volume Rate/Area] in Serum or Plasma by Creatinine-based formula (MDRD) 36.3 [facility] ([facility]) ID Date Data Source [id number] 01/08/2020 12:26:50 PM EDT [facility] Name Value Range Interpretation Code Description Data Marva rce(s) Supporting Document(s) Progress Note [facility] [id number] lbm [file] [id number]= ID Date Data Source [id number] 12/15/2019 10:47:00 AM EDT [facility] CERVICAL SPINE CT SCAN WITHOUT CONTRAST DATE OF EXAMINATION: 12/13/2019 15:[address] CERVICAL SPINE W/O CONTRAST INDICATION: Trauma, pain COMPARISON: None TECHNIQUE: Axial images were obtained from the skull base through the thoracicinlet. Sagittal and coronal reconstructions were made. Intravenous contrast wasnot utilized for this examination. One or more of the following dose reduction techniques were utilized ineffectively lowering the radiation dose for this examination: Automated ExposureControl, Adjustment of the mA and/or kV according to patient size, or Iterativereconstruction. FINDINGS: There is no fracture identified. No evidence for subluxation ofvertebral bodies or their articulating facets. There is degenerative change withosteophyte formation at C5-C6 and C6-C7. IMPRESSION: Degenerative change, no acute injury Electronically signed in PS360 by: Ivan Pelletier M.D. 12/15/2019 10:41 EDT Name Value Range Interpretation Code Description Data [facility] rce(s) Supporting Document(s) ID Date Data Source [id number] 12/14/2019 08:06:00 AM EDT [facility] Patient: MIREILLE RODAS Report - [facility].VisitID: [id number] [place] [address] [phone], FRegistration Date/Time: 12/13/2019 13:10 Weight:58.5 kg (S). Height/Length:62 inches (S). BMI:23.6 FAMILY HISTORYNo significant family medical history. (Electronically signed by Jonh Naylor PA 12/14/2019 08:03) Name Value Range Interpretation Code Description Data [facility] rce(s) Supporting Document(s) ID Date Data Source [id number] 12/13/2019 04:16:00 PM EDT [facility] DATE OF EXAMINATION: 12/13/2019 15:28 EDT SHOULDER COMPLETE Left Shoulder INDICATION: Trauma, pain COMPARISON: None TECHNIQUE: 3 views of the shoulder were obtained. FINDINGS: There is no fracture or dislocation. There are degenerative changes ofboth glenohumeral and acromioclavicular joints. The visualized underlying ribsare unremarkable. IMPRESSION: No acute injury Electronically signed in PS360 by: Ivan Pelletier M.D. 12/13/2019 16:11 EDT Name Value Range Interpretation Code Description [facility] Document(s) ID Date Data Source [id number] 12/13/2019 04:16:00 PM EDT [facility] DATE OF EXAMINATION: 12/13/2019 15:28 EDT BRAIN W/O CONTRAST INDICATION: Trauma, pain COMPARISON: 11/13/[address] exam was performed using the following dose reduction techniques:Automated exposure control, adjustment of mA and/or kV according to thepatient's size, and use of iterative reconstruction technique. TECHNIQUE: Axial images were obtained from the nguyen magnum to the vertex. FINDINGS: The basal cisterns cortical sulci and ventricles are normal for thepatient's age. The crawley-white matter differentiation is preserved. There arebilateral dystrophic basal ganglia calcifications. There is no mass effect ormidline shift. No intracranial bleeds. No intra or extra-axial collections. Thecalvarium and extracranial soft tissues are unremarkable. The visualizedparanasal sinuses are well aerated. IMPRESSION: No acute intracranial abnormalities. CERVICAL SPINE CT SCAN WITHOUT CONTRAST DATE OF EXAMINATION: 12/13/2019 15:[address] CERVICAL SPINE W/O CONTRAST INDICATION: Trauma, pain COMPARISON: None TECHNIQUE: Axial images were obtained from the skull base through the thoracicinlet. Sagittal and coronal reconstructions were made. Intravenous contrast wasnot utilized for this examination. One or more of the following dose reduction techniques were utilized ineffectively lowering the radiation dose for this examination: Automated ExposureControl, Adjustment of the mA and/or kV according to patient size, or Iterativereconstruction. FINDINGS: There is no fracture identified. No evidence for subluxation ofvertebral bodies or their articulating facets. There is degenerative change withosteophyte formation at C5-C6 and C6-C7. IMPRESSION: Degenerative change, no acute injury Electronically signed in PS360 by: Ivan Pelletier M.D. 12/13/2019 16:10 EDT Name Value Range Interpretation Code Description Data Marva rce(s) Supporting Document(s) ID Date Data Source [id number] 12/04/2019 11:25:00 AM EDT [facility] ([facility]) Name Value Range Interpretation Code Description Data Marva rce(s) Supporting Document(s) Magnesium Level 1.6 1.8-2.4 [facility] ([facility]) ID Date Data Source [id number] 12/04/2019 11:25:00 AM EDT [facility] ([facility]) Name Value Range Interpretation Code Description Data Marva rce(s) Supporting Document(s) White Blood Count 6.4 4.0-10.0 [facility] ([facility]) Red Blood Count 3.36 4.00-5.40 [facility] ([facility]) Hematocrit 31.5 [facility] ([facility]) Hemoglobin 10.1 [facility] ([facility]) Platelets 302 150-450 [facility] ([facility]) ID Date Data Source [id number] 12/04/2019 11:25:00 AM EDT [facility] ([facility]) Name Value Range Interpretation Code Description Data Marva rce(s) Supporting Document(s) Hemoglobin A1c/Hemoglobin.total in Blood 5.7 [facility] ([facility]) ID Date Data Source [id number] 12/04/2019 11:25:00 AM EDT [facility] Name Value Range Interpretation Code Description Data Marva rce(s) Supporting Document(s) Alanine aminotransferase [Enzymatic activity/volume] in Serum or Pl asma 28 [facility] ([facility]) Albumin [Mass/volume] in Serum or Plasma 3.5 [facility] ([facility]) Calcium [Mass/volume] in Serum or Plasma 9.2 [facility] ([facility]) Chloride [Moles/volume] in Serum or Plasma 103 [facility] ([facility]) Carbon dioxide, total [Moles/volume] in Serum or Plasma 28 [facility] ([facility]) Potassium [Moles/volume] in Serum or Plasma 4.6 [facility] ([facility]) Protein [Mass/volume] in Serum or Plasma 6.5 [facility] ([facility]) Alkaline phosphatase [Enzymatic activity/volume] in Serum or Plasma 5 7 [facility] ([facility]) Sodium 139 [facility] ([facility]) Urea nitrogen [Mass/volume] in Serum or Plasma 21 [facility] ([facility]) Aspartate aminotransferase [Enzymatic activity/volume] in Serum or Plasma 28 [facility] ([facility]) Creatinine For GFR 1.11 [facility] ([facility]) Glucose 89 70-100 [facility] ([facility]) ID Date Data Source [id number] 11/26/2019 04:47:35 PM EDT [facility] NT INFORMATIONPatient MRN Name Date of Age Gend*PT [id number] Mireille Rodas 1945 74 years F IPPT Location Admission Date/Time Visit ID Attending [id number] 11/25/19 0424 --- --- EPI ID CSN Admitting Provider [id number] Daniella Vizcarra MD([id number])DISCHARGE SUMMARYMireille [id number] provider: Daniella [facility]izcarra [facility] Fletcher Head MDAdmission date: 11/25/2019 4:24 AMDischarge date: 11/26/2019Admission diagnoses: GI bleed / AnemiaDischarge diagnosis:Patient Active Problem ListDiagnosis Diabetic neuropathy Type 2 diabetes mellitus Wound healing, delayed Hypertension Hypercholesterolemia Elevated troponin Abnormal EKG Peripheral artery disease Anxiety Paronychia of great toe of left foot NSTEMI (non-ST elevated myocardial infarction) Coronary artery disease GERD (gastroesophageal reflux disease) Unstable angina Angina at rest Anginal pain Encounter to discuss test results Encounter for examination of surgical site UGIB (upper gastrointestinal bleed) History of coronary artery stent placementConsultations:Omaira Dennis MDHospital course:74-F from [facility] ED with dizziness, weakness, SOB, lightheadedness onseta few weeks ago. A week ago she was lightheaded, lost her balance and fell.She hit her face and left arm, leaving small bruises. Denies loss ofconsciousness.. Denies black and bloody stools. She was recently started ondual antiplatelet therapy status post cardiac catheterization September 2019. Deniesovert bleeding. Denies history of GI bleed. Says that she has had an EGD inthe past with her GI Dr. Rodriguez. Initial H&H at [facility] 6.3/19.9. Physical exam at [facility] notes"strongly heme positive stool. Blood present in the stool. Stools aredark-colored". She was transfused 1 unit PRBCs and repeat H&H 7.4/22.4.Reports feeling better after receiving blood transfusion. EKG normal sinusrhythm without acute ST-T wave changes. Two-view chest x-ray negative for acutedisease. COVID-19 not detected via nasopharyngeal swab 11/24/2019 at 2139.Patient hemodynamically stable. [facility] of GI [facility]. Baseline blood work ordered. No overt bleeding noted. Vital signs are stable.N.p.o. Needs GI consult this morning. Likely EGD. ([facility] Urrutia[facility]Patient was admitted with presumptive upper GI bleed. During hospital staypatient required 2 units of blood. Patient was seen by GI service and underwentEGD. Year patient was cleared for procedure by cardiology service. EGDrevealed 2 duodenal AVM S with mild oozing of blood which were treated with APCwith good hemostasis. GI recommended PPI for acid suppression.Patient did well after procedure. She was started on clear liquids and diet wasadvanced which she tolerated well. She is going to be back on her antiplatelettherapy including aspirin and Brilinta and is going to be discharged back tomcclave.Currently she is hemodynamically stable and asymptomatic.PHYSICAL EXAMVital Signs: Temp: [98.1 F-98.5 F] 98.5 FHeart Rate: [70-83] 72Resp: [14-16] 16BP: (127-183)/(49-95) 14 I/O:Intake/Output Summary (Last 24 hours) at 11/26/2019 0941Last data filed at 11/26/2019 0700Gross per 24 hourIntake 835 mlOutput 3500 mlNet -2665 mlConstitutional - She is oriented to person, place, and time. She appearswell- developed and well-nourished. No distress.HENT - Normocephalic and atraumatic. External ears normal. Nose normal.Eyes - no conjunctival icterusNeck - No JVD present.Cardiovascular - Normal rate, regular rhythm, normal heart sounds. Exam revealsno gallop and no friction rub. No murmur heard.Pulmonary/Chest - Effort normal and breath sounds normal. No respiratorydistress. She has no wheezes, no rhonchi, no rales. She exhibits no chestwalltenderness.Abdominal - Soft. There is no tenderness. Bowel sounds are normal. She exhibitsno abdominal distention or mass. There is no rebound and no guarding. No largeabdominal hernia.Musculoskeletal - No peripheral edema.Neurological - She is alert and oriented to person, place, and time.Skin - Warm and dry. No rash noted. She is not diaphoretic.Psychiatric - She has a normal mood and affect.Disposition: Home or Self CareDischarge condition: goodDischarge Instructions: An After Visit Summary was printed and given to thepatient.Your medication listSTART taking these medications Instructions Last Dose Given Morning Afternoon Evening Bedtime As Neededmagnesium oxide 400 MG tabletCommonly known as: MAG-OX Take 1 tablet (400 mg total) by mouth 2 (two) times a daypantoprazole 40 MG tabletCommonly known as: PROTONIX Take 1 tablet (40 mg total) by mouth daily8/6CONTINUE taking these medications Instructions Last Dose Given Morning Afternoon Evening Bedtime As Neededacetaminophen 325 MG tabletCommonly known as: TYLENOL Take 2 tablets (650 mg total) by mouth every 4 (four) hours as neededaspirin EC 81 MG EC tablet Take 81 mg by mouth daily8/6atorvastatin 80 MG tabletCommonly known as: LIPITOR Take 80 mg by mouth daily8/6carvedilol 25 MG tabletCommonly known as: COREG Take 12.5 mg by mouth 2 (two) times a day8/5DULoxetine 60 MG capsuleCommonly known as: CYMBALTA Take 60 mg by mouth daily8/6gabapentin 800 MG tabletCommonly known as: NEURONTIN Take 800 mg by mouth nightly8/5insulin detemir 100 UNIT/ML injectionCommonly known as: LEVEMIR Inject 25 Units under the skin nightly8/5isosorbide mononitrate 30 MG 24 hr tabletCommonly known as: IMDUR Take 30 mg by mouth daily8/6metFORMIN 1000 MG tabletCommonly known as: GLUCOPHAGE Take 1 tablet (1,000 mg total) by mouth daily with breakfast8/6metFORMIN 1000 MG tabletCommonly known as: GLUCOPHAGE Take 1.5 tablets (1,500 mg total) by mouth every evening8/5nitroglycerin 0.4 MG SL tabletCommonly known as: NITROSTAT Place 1 tablet (0.4 mg total) under the tongue every 5 (five) minutes as neededfor chest painranolazine 500 MG 12 hr tabletCommonly known as: RANEXA Take 500 mg by mouth 2 (two) times a day8/5ticagrelor 90 MG TabsCommonly known as: BRILINTA Take 90 mg by mouth 2 (two) times a day8/5VICTOZA 18 MG/3ML SopnGeneric drug: Liraglutide Inject 1.8 mg under the skin daily8/5STOP taking these [id number] 64 MG TbecGeneric drug: Magnesium ChlorideWhere to Get Your MedicationsThese medications were sent to [facility] [address] [place], [place] - [facility] [address] [facility] [address] magnesium oxide 400 MG tablet pantoprazole 40 MG tabletTotal time spent for discharge was: greater than 30 minutesSignature: Fletcher Gandhishakila, MDDate: November 26, 2019Time: 9:41 AMPh: [phone] Name Value Range Interpretation Code Description Data Marva rce(s) Supporting Document(s) ID Date Data Source [id number] 11/26/2019 12:15:05 PM EDT [facility] Name Value Range Interpretation Code Description Data Marva rce(s) Supporting Document(s) POC NOVA GLU 270 mg/dL (70-99) H [facility] ID Date Data Source [id number] 11/26/2019 12:13:49 PM EDT [facility] Name Value Range Interpretation Code Description Data Marva rce(s) Supporting Document(s) POC NOVA GLU 270 mg/dL (70-99) H [facility] ID Date Data Source [id number] 11/26/2019 01:06:48 PM EDT [facility] Name Value Range Interpretation Code Description Data Marva rce(s) Supporting Document(s) MAGNESIUM 1.4 mg/dL (1.7-2.4) L [facility] ID Date Data Source [id number] 11/26/2019 12:17:44 PM EDT [facility] Name Value Range Interpretation Code Description Data Marva rce(s) Supporting Document(s) HCT 30.5 % (36.0-47.0) L [facility] ID Date Data Source [id number] 11/26/2019 08:30:33 AM EDT [facility] Name Value Range Interpretation Code Description Data Marva rce(s) Supporting Document(s) POC NOVA GLU 145 mg/dL (70-99) H [facility] ID Date Data Source [id number] 11/26/2019 02:03:30 PM EDT [facility] Name Value Range Interpretation Code Description Data Marva rce(s) Supporting Document(s) SODIUM 141 mmol/L (136-145) [facility] POTASSIUM 4.2 mmol/L (3.6-5.2) [facility] CHLORIDE 113 mmol/L (100-108) H [facility] CO2 20 mmol/L (22-31) L [facility] ANION GAP 8 mmol/L (7-16) [facility] UREA NITROGEN 20 mg/dL (7-24) [facility] CREATININE 0.88 mg/dL (0.60-1.00) [facility] BUN/CREAT RATIO 22.7 RATIO (10.0-20.0) H [facility] GLUCOSE 109 mg/dL (70-99) H [facility] CALCIUM 8.4 mg/dL (8.4-10.2) [facility] GFR >60 ml/min/1.73m2 (>59) [facility] GFR ( AMER) >60 ml/min/1.73m2 (>59) [facility] GFR INTERPRETATION [facility] --NORMAL KIDNEY FUNCTION OR MILD DISEASE - GFR >OR= 60CHRONIC KIDNEY DISEASE - GFR 15 - 59RENAL FAILURE - GFR <15 Est. GFR calculation based on the MDRDstudy equation, which assumes a steadystate for creatinine. Est. GFR should notbe used for medication dosing. ID Date Data Source [id number] 11/26/2019 12:50:10 PM EDT [facility] Name Value Range Interpretation Code Description Data Marva rce(s) Supporting Document(s) WBC 7.0 10*3/uL (4.1-11.0) [facility] RBC 3.30 10*6/uL (4.00-5.40) L [facility] HGB 10.0 g/dL (12.0-16.0) L [facility] HCT 28.8 % (36.0-47.0) L [facility] MCV 87.2 fL (80.0-95.0) [facility] MCH 30.1 pg (27.0-32.0) [facility] MCHC 34.6 g/dL (32.0-36.0) [facility] RDW 15.2 % (10.5-14.5) H [facility] PLT 211 10*3/uL (150-450) [facility] MPV 9.1 fL (7.1-10.7) [facility] ID Date Data Source [id number] 11/26/2019 07:53:00 AM EDT [facility] ([facility]) Name Value Range Interpretation Code Description Data Marva rce(s) Supporting Document(s) Glucose 109 70-99 [facility] ([facility]) Blood Urea Nitrogen 20 7-24 [facility] ([facility]) Potassium 4.2 3.6-5.2 [facility] ([facility]) Sodium 141 136-145 [facility] ([facility]) Chloride 113 100-108 [facility] ([facility]) Creatinine 0.88 0.60-1.00 [facility] ([facility]) Glomerular filtration rate/1.73 sq M.pre dicted [Volume Rate/Area] in Serum or Plasma by Creatinine-based formula (MDRD) Laboratory test result [facility] ([facility]) Carbon Dioxide 20 22-31 [facility] ([facility]) Calcium 8.4 8.4-10.2 [facility] ([facility]) ID Date Data Source [id number] 11/26/2019 07:53:00 AM EDT [facility] ([facility]) Name Value Range Interpretation Code Description Data Marva rce(s) Supporting Document(s) White Blood Count 7.0 4.0-11.0 [facility] ([facility]) Red Blood Count 3.30 4.00-5.40 [facility] ([facility]) Hemoglobin 10.0 12.0-16.0 [facility] ([facility]) Platelets 211 150-450 [facility] Hematocrit 28.8 36.0-47.0 [facility] ([facility]) ID Date Data Source [id number] 11/25/2019 11:48:13 PM EDT [facility] Name Value Range Interpretation Code Description Data Marva rce(s) Supporting Document(s) ED Provider Note [facility] [id number] lbm [file] GiB+firer boiler/[id number] [file] [id number]= ID Date Data Source [id number] 11/25/2019 11:44:06 PM EDT [facility] Name Value Range Interpretation Code Description Data Marva rce(s) Supporting Document(s) POC NOVA GLU 95 mg/dL (70-99) [facility] ID Date Data Source [id number] 11/25/2019 10:16:47 PM EDT [facility] Name Value Range Interpretation Code Description Data Marva rce(s) Supporting Document(s) WBC 7.0 10*3/uL (4.1-11.0) [facility] RBC 3.32 10*6/uL (4.00-5.40) L [facility] HGB 9.8 g/dL (12.0-16.0) L [facility] HCT 29.6 % (36.0-47.0) L [facility] PATIENT TRANSFUSED MCV 89.1 fL (80.0-95.0) [facility] MCH 29.4 pg (27.0-32.0) [facility] MCHC 33.0 g/dL (32.0-36.0) [facility] RDW 14.9 % (10.5-14.5) H [facility] PLT 198 10*3/uL (150-450) [facility] MPV 8.8 fL (7.1-10.7) [facility] ID Date Data Source [id number] 11/25/2019 05:45:05 PM EDT [facility] Name Value Range Interpretation Code Description Data Marva rce(s) Supporting Document(s) POC NOVA GLU 79 mg/dL (70-99) [facility] ID Date Data Source [id number] 11/25/2019 02:31:48 PM EDT [facility] Name Value Range Interpretation Code Description Data Marva rce(s) Supporting Document(s) POC NOVA GLU 85 mg/dL (70-99) [facility] ID Date Data Source [id number] 11/25/2019 02:07:44 PM EDT [facility] NT INFORMATIONPatient MRN Name Date of Age Gend*PT [id number] Mireille Rodas 1945 74 years F IPPT Location Admission Date/Time Visit ID Attending [id number] 11/25/19 0424 --- Fletcher Barba MD([id number]) EPI ID CSN Admitting Provider [id number] Daniella Vizcarra MD([id number])Endoscopic Gastroduodenoscopy Procedure NotePatient: Mireille RodasSurgery Date: 11/25/2019Surgeon(s):Baljit Sinclair, MDPre-operative Diagnosis:UGIB (upper gastrointestinal bleed) [K92.2]Post-Op Diagnosis Codes: * UGIB (upper gastrointestinal bleed) [K92.2]Procedure(s):ENDOSCOPY, UPPER GASTROINTESTINAL (GI) TRACT W ARGON PLASMA COAGULATIONSedation: Monitored Anesthesia Care (MAC) (see anesthesia report).Other Equipment Type Equipment Setting Setting Low Setting High Applied By Endoscope ENDOSCOPE PENTAX [id number] Baljit Sinclair MD Endoscope Pediatric (ENDO)Consent:After obtaining history and performing the physical examination, the procedure,indications, potential complications, including but not limited to bleeding,perforation, infection, adverse medication reaction, and alternatives wereexplained to the patient. Patient appeared to understand the benefits and risksof this procedure. Informed consent was obtained from the patient afterproviding opportunity for questions.Procedure Details:The gastroscope was inserted into the mouth and advanced under directvisualization to third portion of the duodenum. A careful inspection was madeas the gastroscope was withdrawn, including a retroflexed view of the proximalstomach; findings and interventions are described below. After completion of theexamination, the patient was transferred to the recovery room.Findings:The following abnormalities were identifiedEsophagus: NormalGE Junction: zline at 38cmCardia: NormalFundus: NormalBody: NormalAntrum: NormalPylorus: NormalDuodenum Bulb: NormalDuodenum 2nd Portion: few tiny erosions noted. 2 small avm with small amount ofblood oozing noted. both were treated with APC with good hemostasis. 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 Treated with apc with goodhemostasis.Recommendations:-Acid suppression with a proton pump inhibitor.-monitor hct for further drop. As per Dr Perez, needs to be on Brillinta.Hx of egd and colonoscopy 5 years ago.- call with qs.Baljit Sinclair MD11/25/20192:04 PM Name Value Range Interpretation Code Description Data Marva rce(s) Supporting Document(s) ID Date Data Source [id number] 11/25/2019 10:55:34 AM EDT [facility]PATIE NT INFORMATIONPatient MRN Name Date of Age Gend*PT [id number] Mireille Rodas 1945 74 years F IPPT Location Admission Date/Time Visit ID Attending [id number] 11/25/19 0424 --- Fletcher Barba MD([id number]) EPI ID CSN Admitting Provider [id number] Daniella Vizcarra MD([id number])Inpatient Consult NoteMandinataly RodasMRN: [id number] for consult: drop in hct.Impression and Recommendations:Principal Problem: UGIB (upper gastrointestinal bleed)Active Problems: Diabetic neuropathy Type 2 diabetes mellitus Hypertension Hypercholesterolemia Coronary artery disease GERD (gastroesophageal reflux disease) 1. Drop in hct; on Brillinta and aspirin. PTC x 6 done 09/2019. No signs ofactive GI bleeding at this time. Likely slow bleed. Will need cardiac clearancefor EGD. She had egd and colonoscopy in [place] 5 years ago. Check stoolguaiac, if negative may need to consider CT abd to check for hematoma.Discussed with Dr Perez. Can't keep off Brillinta/aspirin for long. Willproceed with diagnostic egd for now to assess for high risk vs low risk lesions.Will proceed with EGD this afternoon.HPI: 74 yo female with [place] 09/2019 with 6 stents placed and placed on aspirin andBrillinta presenting with dizziness and fatigue. Patient had same about 1.5weeks ago where she ended up s/p fall [facility]. They performed 2 CT scan ofthe head which showed 2 small brain aneursym. Patient this time ended [facility] and found to have hct 19.9 and 1 unit prbc was given. She statesthat she does not have any black stool or brbpr. No abd pain, nausea, vomiting.Past Medical History:Past Medical History:Diagnosis Date Abnormal EKG [address] bell, baseline EKG is sinus rhythm, frequent PACs, poor Rwave progression, nonspecific ST-T wave abnormality, repolarizationabnormalities. Anxiety Cellulitis of left toe Coronary artery disease Diabetic neuropathy GERD (gastroesophageal reflux disease) Hypercholesterolemia Hypertension Onychomycosis Paronychia of great toe of left foot 04/22/2019 Peripheral artery disease Type 2 diabetes mellitus Wound healing, delayedPast Surgical History:Past Surgical History:Procedure Laterality Date BREAST BIOPSY CARDIAC CATHETERIZATION N/A 04/24/2019 Procedure: Percutaneous coronary intervention; Surgeon: Raymond Casiano MD;Laterality: N/A; CARDIAC CATHETERIZATION N/A 04/22/2019 Procedure: Left heart cath; Surgeon: Raymond Casiano MD; Laterality: N/A; CARDIAC CATHETERIZATION N/A 04/22/2019 Procedure: Coronary angiography; Surgeon: Raymond Casiano MD; Laterality:N/A; CARDIAC CATHETERIZATION N/A 04/22/2019 Procedure: Left ventriculography; Surgeon: Raymond Casiano MD; Laterality:N/A; CARDIAC CATHETERIZATION N/A 04/22/2019 Procedure: Percutaneous coronary intervention; Surgeon: Raymond Casiano MD;Laterality: N/A; CARDIAC CATHETERIZATION N/A 10/13/2019 Procedure: Left heart cath; Surgeon: Raymond Casiano MD; Laterality: N/A; CARDIAC CATHETERIZATION N/A 10/13/2019 Procedure: Coronary angiography; Surgeon: Raymond Casiano MD; Laterality:N/A; CARDIAC CATHETERIZATION N/A 10/13/2019 Procedure: Left ventriculography; Surgeon: Raymond Casiano MD; Laterality:N/A; CARDIAC CATHETERIZATION N/A 10/13/2019 Procedure: Percutaneous coronary intervention; Surgeon: Raymond Casiano MD;Laterality: N/A; Cardiac stress test For cardiac stress tests last one was in 2014: No stress inducible angina.Electrographically inconclusive for detection of myocardial ischemia due tobaseline repolarization abnormality. Reversible very small basal inferior walldefect consistent with regadenoson inducible coronary flow no distribution inthe right coronary artery territory. Normal LV wall motion Cataract surgery CHOLECYSTECTOMY Myocardial infarction 1992 OOPHORECTOMY Peripheral artery stenting Right leg TUBAL LIGATION WOUND DEBRIDEMENTMedications:Medications Prior to AdmissionMedication Sig Dispense Refill Last Dose acetaminophen (TYLENOL) 325 MG tablet Take 2 tablets (650 mg total) by mouthevery 4 (four) hours as needed (Patient taking differently: Take 650 mg by mouthevery 4 (four) hours as needed for pain ) 30 tablet 0 aspirin EC 81 MG EC tablet Take 81 mg by mouth daily atorvastatin (LIPITOR) 80 MG tablet Take 80 mg by mouth daily carvedilol (COREG) 25 MG tablet Take 12.5 mg by mouth 2 (two) times a day clopidogrel (PLAVIX) 75 MG tablet Take 75 mg by mouth daily DULoxetine (CYMBALTA) 60 MG capsule Take 60 mg by mouth daily 04/21/2019 atUnknown time gabapentin (NEURONTIN) 800 MG tablet Take 800 mg by mouth [id number]/21/2019 at Unknown time insulin detemir (LEVEMIR) 100 UNIT/ML injection Inject 30 Units under the skinnightly 04/21/2019 at Unknown time Liraglutide (VICTOZA) 18 MG/3ML SOPN Inject 1.8 mg under the skin daily04/21/2019 at Unknown time Menthol, Topical Analgesic, (BIOFREEZE EX) Apply 1 application topically dailyas needed (pain) metFORMIN (GLUCOPHAGE) 1000 MG tablet Take 1 tablet (1,000 mg total) by mouthdaily with breakfast metFORMIN (GLUCOPHAGE) 1000 MG tablet Take 1.5 tablets (1,500 mg total) bymouth every evening nitroglycerin (NITROSTAT) 0.[address] 1 tablet (0.4 mg total) underthe tongue every 5 (five) minutes as needed for chest pain 90 tablet 12 pantoprazole (PROTONIX) 40 MG tablet Take 40 mg by mouth dailyAllergies:Patient has no known drug allergies.Family History:Family HistoryProblem Relation Age of Onset Diabetes type II Mother Myocardial Infarction ([place]) Mother Heart disease Father Myocardial Infarction ([place]) Father Myocardial Infarction [place]) Brother Age 59 Myocardial Infarction ([place]) Brother age 46 Heart attack Sister age 72Social History:Social HistoryTobacco Use Smoking status: Former Smoker Packs/day: 1.50 Years: 30.00 Pack years: 45.00 Last attempt to quit: 1992 Years since quittin.6 Smokeless tobacco: Never UsedSubstance Use Topics Alcohol use: Not Currently Comment: Occasionally Drug use: NeverReview of Systems:All systems were reviewed and found negative except for those mentioned in theHPI.Physical Exam:Temp: [98.2 F-98.6 F] 98.2 FHeart Rate: [83-87] 83Resp: [18] 18BP: (111-120)/(57-69) 111/57Pleasant, comfortable, not in acute distress.Awake, alert, oriented times 3.Head: Normocephalic, without obvious abnormality, bruising under left eyesocket.Lungs: Clear to auscultation bilaterally.Abdomen: Soft, nontender, bowel sounds present.Extremities: No edema.Labs, Imaging and Other Diagnostics:Diagnostic tests reviewed:Labs from [facility] Brief:Lab ResultsComponent Value Date WBC 6.3 10/14/2019 HGB 9.3 (L) 10/14/2019 HCT 28.0 (L) 10/14/2019 PLT 182 10/14/2019CMP:Lab ResultsComponent Value Date NA 139 10/14/2019 K 4.3 10/14/2019 CL 106 10/14/2019 CO2 23 10/14/2019 ANIONGAP 10 10/14/2019 BUN 22 10/14/2019 CREATININE 1.08 (H) 10/14/2019 BCR 20.4 (H) 10/14/2019 GLU 92 10/14/2019 CALCIUM 8.2 (L) 10/14/2019 ALBUMIN 3.7 10/12/2019 GLOB 3.8 10/12/2019 AGRC 1.0 10/12/2019 ALKPHOS 54 10/12/2019 LABBILI 0.4 10/12/2019 AST 49 (H) 10/12/2019 ALT 35 10/12/2019 GFRAA >60 10/14/2019 GFRNONAA 50 (L) 10/14/2019Coags:Lab ResultsComponent Value Date PROTIME 11.4 10/06/2019 INR 1.09 10/06/2019 APTT 128.1 (HH) 10/13/2019Signature: Baljit Bales Yahir, MDDate: November 25, 2019Time: 8:11 AM Name Value Range Interpretation Code Description Data Marva rce(s) Supporting Document(s) ID Date Data Source [id number] 11/25/2019 10:50:22 AM EDT [facility] CenterPATIE NT INFORMATIONPatient MRN Name Date of Age Gend*PT [id number] Mireille Rodas 1945 74 years F IPPT Location Admission Date/Time Visit ID Attending [id number] 11/25/19 0424 --- Fletcher Barba MD([id number]) EPI ID CSN Admitting Provider [id number] Daniella Vizcarra MD([id number])CARDIOLOGY CONSULTATIONName: Mireille Rodas Gender: femaleDate of : 1945 Age: 74 yearsDate/Time of Admit: 11/25/2019 4:24 AM Code Status: Full CodePrimary Care Provider / Referring Physician: Samantha Carneyformant:HISTORYCHIEF COMPLAINT: No chief complaint on file.HPI:This patient is a 74 years female who was transferred here from [facility] today. She complained of dizziness shortness of breath andlightheadedness that began a few weeks ago. She was unab le to ambulate. Shelost her balance and fell. She sustained bruises. She did not loseconsciousness. She denied any overt bleeding. In September of this year sheunderwent coronary arteriography.In April of this year she received a drug- eluting stent in the right coronaryand mid LAD.On October 12, she returned with recurrent jaw pain. She went back to the [facility] where she received 70 a drug-eluting stent 6 of which were placed in theright coronary and 1 in the LAD. Her LVEF was 55%.The dual antiplatelet therapy she was discharged on was aspirin and Plavix. Hercardiologist at home has changed her to aspirin and Brilinta.Her prehospital meds include ASA 81 mg,Brilinta 90 mg p.o. twice daily, Nitrostat, Lipitor, Coreg 25 mg p.o. twicedaily.Her lab studies reveal creatinine 1.07 and GFR 50 troponin I less than 0.05 andher hemoglobin is 7.6.PAST HISTORYPMH:Past Medical History:Diagnosis Date Abnormal EKG [address] bell, baseline EKG is sinus rhythm, frequent PACs, poor Rwave progression, nonspecific ST-T wave abnormality, repolarizationabnormalities. Anxiety Cellulitis of left toe Coronary artery disease Diabetic neuropathy GERD (gastroesophageal reflux disease) Hypercholesterolemia Hypertension Onychomycosis Paronychia of great toe of left foot 04/22/2019 Peripheral artery disease Type 2 diabetes mellitus Wound healing, delayedPSH:Past Surgical History:Procedure Laterality Date BREAST BIOPSY CARDIAC CATHETERIZATION N/A 04/24/2019 Procedure: Percutaneous coronary intervention; Surgeon: Raymond Casiano MD;Laterality: N/A; CARDIAC CATHETERIZATION N/A 04/22/2019 Procedure: Left heart cath; Surgeon: Raymond Casiano MD; Laterality: N/A; CARDIAC CATHETERIZATION N/A 04/22/2019 Procedure: Coronary angiography; Surgeon: Raymond Casiano MD; Laterality:N/A; CARDIAC CATHETERIZATION N/A 04/22/2019 Procedure: Left ventriculography; Surgeon: Raymond Casiano MD; Laterality:N/A; CARDIAC CATHETERIZATION N/A 04/22/2019 Procedure: Percutaneous coronary intervention; Surgeon: Raymond Casiano MD;Laterality: N/A; CARDIAC CATHETERIZATION N/A 10/13/2019 Procedure: Left heart cath; Surgeon: Raymond Casiano MD; Laterality: N/A; CARDIAC CATHETERIZATION N/A 10/13/2019 Procedure: Coronary angiography; Surgeon: Raymond Casiano MD; Laterality:N/A; CARDIAC CATHETERIZATION N/A 10/13/2019 Procedure: Left ventriculography; Surgeon: Raymond Casiano MD; Laterality:N/A; CARDIAC CATHETERIZATION N/A 10/13/2019 Procedure: Percutaneous coronary intervention; Surgeon: Raymond Casinao MD;Laterality: N/A; Cardiac stress test For cardiac stress tests last one was in 2014: No stress inducible angina.Electrographically inconclusive for detection of myocardial ischemia due tobaseline repolarization abnormality. Reversible very small basal inferior walldefect consistent with regadenoson inducible coronary flow no distribution inthe right coronary artery territory. Normal LV wall motion Cataract surgery CHOLECYSTECTOMY Myocardial infarction 1992 OOPHORECTOMY Peripheral artery stenting Right leg TUBAL LIGATION WOUND DEBRIDEMENTFH:Family HistoryProblem Relation Age of Onset Diabetes type II Mother Myocardial Infarction ([place]) Mother Heart disease Father Myocardial Infarction ([place]) Father Myocardial Infarction ([place]) Brother Age 59 Myocardial Infarction ([place]) Brother age 46 Heart attack Sister age 72PSH:Social HistorySocial History Narrative Patient has family members she lives withSocial HistorySocioeconomic History Marital status: Spouse name: Not on file Number of children: Not on file Years of education: Not on file Highest education level: Not on fileOccupational History Occupation: retiredSocial Needs Financial resource strain: Not hard at all Food insecurity: Worry: Never true Inability: Never true Transportation needs: Medical: No Non-medical: NoTobacco Use Smoking status: Former Smoker Packs/day: 1.50 Years: 30.00 Pack years: 45.00 Last attempt to quit: 1992 Years since quittin.6 Smokeless tobacco: Never UsedSubstance and Sexual Activity Alcohol use: Not Currently Comment: Occasionally Drug use: Never Sexual activity: Not CurrentlyLifestyle Physical activity: Days per week: Not on file Minutes per session: Not on file Stress: Not on fileRelationships Social connections: Talks on phone: Not on file Gets together: Not on file Attends voodoo service: Not on file Active member of club or organization: Not on file Attends meetings of clubs or organizations: Not on file Relationship status: Not on file Intimate partner violence: Fear of current or ex partner: Not on file Emotionally abused: Not on file Physically abused: Not on file Forced sexual activity: Not on fileOther Topics Concern Not on fileSocial History Narrative Patient has family members she lives withReview of SystemsConstitutional: No fevers, chills, weight loss or night sweats..Eyes: No blindness, double vision, or glaucomaRespiratory: negative for asthma, chronic bronchitis, hemoptysis, pleurisy,sputum production, or wheezingCardiovascular: negative for claudication and as stated in the HPIGastrointestinal: negative for constipation, diarrhea, melena, nausea, orvomitingNeurological: negative for dizziness, gait problems, headaches and seizuresHematologic/lymphatic: negative for easy bruising, petechiae, or anemiaBehavioral/Psych: negative for anxiety and depressionEndocrine: negative for polydipsia, polyphagia and polyuria and temperatureintoleranceAllergic/Immunologic: No seasonal allergiesMEDICATIONS AND ALLERGIESALLERGIES/SENSITIVITIES: No Known Drug AllergiesMEDS:Medications Prior to AdmissionMedication Sig Dispense Refill Last Dose acetaminophen (TYLENOL) 325 MG tablet Take 2 tablets (650 mg total) by mouthevery 4 (four) hours as needed (Patient taking differently: Take 650 mg by mouthevery 4 (four) hours as needed for pain ) 30 tablet 0 aspirin EC 81 MG EC tablet Take 81 mg by mouth daily atorvastatin (LIPITOR) 80 MG tablet Take 80 mg by mouth daily carvedilol (COREG) 25 MG tablet Take 12.5 mg by mouth 2 (two) times a day clopidogrel (PLAVIX) 75 MG tablet Take 75 mg by mouth daily DULoxetine (CYMBALTA) 60 MG capsule Take 60 mg by mouth daily 04/21/2019 atUnknown time gabapentin (NEURONTIN) 800 MG tablet Take 800 mg by mouth sitbafm7104/21/2019 at Unknown time insulin detemir (LEVEMIR) 100 UNIT/ML injection Inject 30 Units under the skinnightly 04/21/2019 at Unknown time Liraglutide (VICTOZA) 18 MG/3ML SOPN Inject 1.8 mg under the skin daily04/21/2019 at Unknown time Menthol, Topical Analgesic, (BIOFREEZE EX) Apply 1 application topically dailyas needed (pain) metFORMIN (GLUCOPHAGE) 1000 MG tablet Take 1 tablet (1,000 mg total) by mouthdaily with breakfast metFORMIN (GLUCOPHAGE) 1000 MG tablet Take 1.5 tablets (1,500 mg total) bymouth every evening nitroglycerin (NITROSTAT) 0.[address] 1 tablet (0.4 mg total) underthe tongue every 5 (five) minutes as needed for chest pain 90 tablet 12 pantoprazole (PROTONIX) 40 MG tablet Take 40 mg by mouth dailyPhysicalVITAL SIGNS:Blood Pressure: BP: 128/74 Pulse: Heart Rate: 83Temperature: Temp: 98.2 F Respirations: Resp: 18Admission Weight: Weight: 58.1 kg (128 lb) O2 Saturation: SpO2: 99 %Today's Weight: Weight: 58.1 kg (128 lb)PHYSICAL EXAMINATION:GENERAL: Well developed, well nourished woman in no acute distress and orientedto person place and time. There is normal affect and thought process .HEENT: No arcus, xanthelasma, or scleral icterus. Nasal and oral mucosa pink.Tongue well-papillated.NECK: JVP normal. Carotids brisk. No lymphadenopathy.LUNGS: Resonant and clearCARDIAC: PMI normal S1 normal S2 physiologically split. No gallops. No murmurs.No rubs.ABDOMEN: Soft and nontender without hepatosplenomegaly. Bowel sounds are normal.PULSES: Pedal pulses are intact and symmetricEXTREMITIES: No edema. No clubbing. No cyanosis. Skin warm and well perfused. Novenous stasis.MUSCULOSKELETAL: No deformities, good muscle tone, normal range of motionNEUROLOGICAL: No major sensory or motor deficits.DiagnosticsLABS:BMP:Lab ResultsComponent Value Date NA 139 11/25/2019 K 4.2 11/25/2019 CL 111 (H) 11/25/2019 CO2 20 (L) 11/25/2019 ANIONGAP 8 11/25/2019 CALCIUM 8.1 (L) 11/25/2019 GLU 89 11/25/2019 BUN 38 (H) 11/25/2019 CREATININE 1.07 (H) 11/25/2019 GFRAA >60 11/25/2019 GFRNONAA 50 (L) 11/25/2019CBC with Diff:Lab ResultsComponent Value Date WBC 7.8 11/25/2019 RBC 2.53 (L) 11/25/2019 HGB 7.6 (L) 11/25/2019 HCT 22.8 (L) 11/25/2019 MCV 89.9 11/25/2019 MCH 30.0 11/25/2019 MCHC 33.3 11/25/2019 RDW 15.1 (H) 11/25/2019 PLT 204 11/25/2019 MPV 8.6 11/25/2019 LYMPHOPCT 19.7 10/12/2019 MONOPCT 6.1 10/12/2019 EOSPCT 2.0 10/12/2019 BASOPCT 0.7 10/12/2019 NEUTROABS 6.1 10/12/2019 MONOABS 0.5 10/12/2019 BASOSABS 0.1 10/12/2019CBC without Diff:Lab ResultsComponent Value Date WBC 7.8 11/25/2019 RBC 2.53 (L) 11/25/2019 HGB 7.6 (L) 11/25/2019 HCT 22.8 (L) 11/25/2019 MCV 89.9 11/25/2019 MCH 30.0 11/25/2019 MCHC 33.3 11/25/2019 RDW 15.1 (H) 11/25/2019 PLT 204 11/25/2019 MPV 8.6 11/25/2019CMP:Lab ResultsComponent Value Date NA 139 11/25/2019 K 4.2 11/25/2019 CL 111 (H) 11/25/2019 CO2 20 (L) 11/25/2019 ANIONGAP 8 11/25/2019 BUN 38 (H) 11/25/2019 CREATININE 1.07 (H) 11/25/2019 BCR 35.5 (H) 11/25/2019 GLU 89 11/25/2019 CALCIUM 8.1 (L) 11/25/2019 ALBUMIN 3.2 11/25/2019 GLOB 2.7 11/25/2019 AGRC 1.2 11/25/2019 ALKPHOS 43 (L) 11/25/2019 LABBILI 0.8 11/25/2019 AST 19 11/25/2019 ALT 19 11/25/2019 GFRAA >60 11/25/2019 GFRNONAA 50 (L) 11/25/2019Coags:Lab ResultsComponent Value Date PROTIME 11.0 11/25/2019 INR 1.05 11/25/2019 APTT 128.1 (HH) 10/13/2019D-Dimer: No results found for: DDAT, PROCALCITON, LACTATENT Pro- BNP : No results found for this or any previous visit.DIAGNOSTICS:IMAGING: Chest film reveals normal heart size, normal pulmonary blood flowdistribution, no edema, and no effusions.ECG: NSR with probable old anteroseptal myocardial infarction.ConclusionsImpressions:1. CAD with recent drug-eluting stent placement on 10/13/2019.2. Normal left ventricular systolic function3. She is hemodynamically stable.Recommendations:1. The risk of stent thrombosis and probable fatal acute myocardial infarctionis highest in this early post intervention period.2. If there is any way to avoid holding statin therapy it should be held.3. If it cannot be held and it should be discontinued for the minimal amount oftime measured in hours rather than days.Thank you for this consultation.Dante Perez, JOVIate: November 25, 2019Time: 10:29 AM Name Value Range Interpretation Code Description Data Marva rce(s) Supporting Document(s) ID Date Data Source [id number] 11/25/2019 10:37:46 AM EDT [facility] CenterPATIE NT INFORMATIONPatient MRN Name Date of Age Gend*PT [id number] Mireille Rodas 1945 74 years F IPPT Location Admission Date/Time Visit ID Attending [id number] 11/25/19 0424 --- Fletcher Barba MD([id number]) EPI ID CSN Admitting Provider [id number] Daniella Vizcarra MD([id number]) Attestation signed by Daniella Vizcarra MD at 11/25/2019 10:37 AMPatient seen and examined at bed side independently. I have reviewed and agreedwith IRONER MACHINE Yumiko H&P and plan outlined. 74 year old female with past medicalhistory of CAD, was transferred from [facility] with GIB for GI evaluation.[facility], repeat H&H revealed Hb 7.6& Hct22.8, will transfuse 2nd unit of PRBC. GI consult am, NPO, holding of dualantiplatelet for now. No further H&M, and no BBRPR.will plan EGD am. ---Inpatient History & PhysicalElifabienne Hanna DruN:[id number] and Plan:Principal Problem: UGIB (upper gastrointestinal bleed)Active Problems: Diabetic neuropathy Type 2 diabetes mellitus Hypertension H ypercholesterolemia Coronary artery disease GERD (gastroesophageal reflux disease)UGIBInitial H&H 6.3/19.9Transfused 1 unit PRBCs, repeat H&H 7.4/22.4 with improvement in symptomsHold ASA and BrilintaN.p.o.IV Protonix twice dailyNeeds GI consult this morning for likely EGDCAD status post cardiac catheterizationDenies chest painEKG normal sinus rhythm without acute ST-T wave changesHold ASA and Brilinta as aboveContinue statin and beta-blockerIDDM 2Lantus 18 and 6 sliding scale insulin, adjust as neededMonitor for hypoglycemiaHTNContinue CoregGERDIVP Protonix as aboveDVT prophylaxis observed with SQ HeparinCode status: FullDiscussed with Dr. Vizcarra.CC: Dizziness, weakness, SOBHPI: This is a pleasant 74-year-old female who initially presented to [facility] emergency department with dizziness, weakness, shortness of breath,lightheadedness onset a few weeks ago. Patient states that she has haddifficulty ambulating because of her symptoms. A week ago she was lightheaded,lost her balance and fell. She hit her face and left arm, leaving smallbruises. Denies loss of consciousness. She was able to get up on her own andambulate. Denies black and bloody stools. She was recently started on dualantiplatelet therapy status post cardiac catheterization September 2019. Deniesovert bleeding. Denies history of GI bleed. Says that she has had an EGD inthe past and that her GI DrKannan Rodriguez.Initial H&H at [facility] 6.3/19.9. Physical exam at [facility] notes"strongly heme positive stool. Blood present in the stool. Stools aredark-colored". She was transfused 1 unit PRBCs and repeat H&H 7.4/22.4.Reports feeling better after receiving blood transfusion. EKG normal sinusrhythm without acute ST-T wave changes. Two-view chest x-ray negative for acutedisease. COVID-19 not detected via nasopharyngeal swab 11/24/2019 at 2139.Patient hemodynamically stable. [facility] and management of GI bleed.Baseline blood work ordered. No overt bleeding noted. Vital signs are stable.N.p.o. Needs GI consult this morning. Likely EGD.PCP: KALYN Carneyardiology: Dr. Patel Medical History:Past Medical History:Diagnosis Date Abnormal EKG [address] bell, baseline EKG is sinus rhythm, frequent PACs, poor Rwave progression, nonspecific ST-T wave abnormality, repolarizationabnormalities. Anxiety Cellulitis of left toe Coronary artery disease Diabetic neuropathy GERD (gastroesophageal reflux disease) Hypercholesterolemia Hypertension Onychomycosis Paronychia of great toe of left foot 04/22/2019 Peripheral artery disease Type 2 diabetes mellitus Wound healing, delayedPast Surgical History:Past Surgical History:Procedure Laterality Date BREAST BIOPSY CARDIAC CATHETERIZATION N/A 04/24/2019 Procedure: Percutaneous coronary intervention; Surgeon: Raymond Casiano MD;Laterality: N/A; CARDIAC CATHETERIZATION N/A 04/22/2019 Procedure: Left heart cath; Surgeon: Raymond Casiano MD; Laterality: N/A; CARDIAC CATHETERIZATION N/A 04/22/2019 Procedure: Coronary angiography; Surgeon: Raymond Casiano MD; Laterality:N/A; CARDIAC CATHETERIZATION N/A 04/22/2019 Procedure: Left ventriculography; Surgeon: Raymond Casiano MD; Laterality:N/A; CARDIAC CATHETERIZATION N/A 04/22/2019 Procedure: Percutaneous coronary intervention; Surgeon: Raymond Casiano MD;Laterality: N/A; CARDIAC CATHETERIZATION N/A 10/13/2019 Procedure: Left heart cath; Surgeon: Raymond Casiano MD; Laterality: N/A; CARDIAC CATHETERIZATION N/A 10/13/2019 Procedure: Coronary angiography; Surgeon: Raymond Casiano MD; Laterality:N/A; CARDIAC CATHETERIZATION N/A 10/13/2019 Procedure: Left ventriculography; Surgeon: Raymond Casiano MD; Laterality:N/A; CARDIAC CATHETERIZATION N/A 10/13/2019 Procedure: Percutaneous coronary intervention; Surgeon: Raymond Casiano MD;Laterality: N/A; Cardiac stress test For cardiac stress tests last one was in 2014: No stress inducible angina.Electrographically inconclusive for detection of myocardial ischemia due tobaseline repolarization abnormality. Reversible very small basal inferior walldefect consistent with regadenoson inducible coronary flow no distribution inthe right coronary artery territory. Normal LV wall motion Cataract surgery CHOLECYSTECTOMY Myocardial infarction 1992 OOPHORECTOMY Peripheral artery stenting Right leg TUBAL LIGATION WOUND DEBRIDEMENTMedications:Prior to Admission medicationsMedication Sig Start Date End Date Taking? Authorizing Provideracetaminophen (TYLENOL) 325 MG tablet Take 2 tablets (650 mg total) by mouthevery 4 (four) hours as ne ededPatient taking differently: Take 650 mg by mouth every 4 (four) hours as neededfor pain 04/25/19 Dinesh Small MDaspirin EC 81 MG EC tablet Take 81 mg by mouth daily Historical ProviderErumtorvastatin (LIPITOR) 80 MG tablet Take 80 mg by mouth daily HistoricalProvider, Tamiearvedilol (COREG) 25 MG tablet Take 12.5 mg by mouth 2 (two) times a dayHistorical Provider, Tamielopidogrel (PLAVIX) 75 MG tablet Take 75 mg by mouth daily HistoricalProvisiria, JOVIULoxetine (CYMBALTA) 60 MG capsule Take 60 mg by mouth daily HistoricalProMD lexgabapentin (NEURONTIN) 800 MG tablet Take 800 mg by mouth nightly HistoricalProLilian burnett detemir (LEVEMIR) 100 UNIT/ML injection Inject 30 Units under the skinnightly Historical Provider, Liraglutide (VICTOZA) 18 MG/3ML SOPN Inject 1.8 mg under the skin dailyHistorical Provider, RAMBOenthol, Topical Analgesic, (BIOFREEZE EX) Apply 1 application topically dailyas needed (pain) Historical Provider, RamboetFORMIN (GLUCOPHAGE) 1000 MG tablet Take 1 tablet (1,000 mg total) by mouthdaily with breakfast 10/15/19 Italo Covington PAmetFORMIN (GLUCOPHAGE) 1000 MG tablet Take 1.5 tablets (1,500 mg total) by mouthevery evening 10/15/19 Italo [place]ton PAnitroglycerin (NITROSTAT) 0.[address] 1 tablet (0.4 mg total) underthe tongue every 5 (five) minutes as needed for chest pain 04/25/19 Sher Reneeantoprazole (PROTONIX) 40 MG tablet Take 40 mg by mouth daily HistoricalProFadi burnettergies:Patient has no known drug allergies.Family History:Family HistoryProblem Relation Age of Onset Diabetes type II Mother Myocardial Infarction ([place]) Mother Heart disease [place] Inf[place] Brother Age 59 [place]ocardial Infarction ([place] Brother age 46 Heart attack Sister age 72Social History:Social HistoryTobacco Use Smoking status: Former Smoker Packs/day: 1.50 Years: 30.00 Pack years: 45.00 Last attempt to quit: 1992 Years since quittin.6 Smokeless tobacco: Never UsedSubstance Use Topics Alcohol use: Not Currently Comment: Occasionally Drug use: NeverReview of Systems:Review of SystemsConstitutional: Positive for activity change (Decreased), chills and fatigue.Negative for appetite change, diaphoresis, fever and unexpected weight change.HENT: Negative for congestion and rhinorrhea.Respiratory: Positive for shortness of breath. Negative for cough, chesttightness and wheezing.Cardiovascular: Negative for chest pain, palpitations and leg swelling.Gastrointestinal: Negative for abdomi nal distention, abdominal pain, analbleeding, blood in stool, constipation, diarrhea, nausea and vomiting.Genitourinary: Negative for difficulty urinating, dysuria, hematuria, urgencyand vaginal bleeding.Musculoskeletal: Negative for back pain and gait problem.Skin: Negative for rash and wound.Neurological: Positive for dizziness, syncope (Near), weakness andlight-headedness. Negative for tremors, facial asymmetry, speech difficulty,numbness and headaches.Hematological: Bruises/bleeds easily.Psychiatric/Behavioral: Negative for confusion. The patient is notnervous/anxious. 14 point ROS conducted and negative unless mentioned above.Physical Exam:Vital Signs:Physical ExamConstitutional: She is oriented to person, place, and time. She appearswell- developed and well-nourished. No distress.HENT:Head: Normocephalic.Right Ear: External ear normal.Left Ear: External ear normal.Nose: Nose normal.Mouth/Throat: Oropharynx is clear and moist.Ecchymosis below the left eyeEyes: Pupils are equal, round, and reactive to light. Conjunctivae are normal.Right eye exhibits no discharge. Left eye exhibits no discharge.Neck: Normal range of motion. Neck supple.Cardiovascular: Normal rate, regular rhythm, normal heart sounds and intactdistal pulses.No murmur heard.Pulmonary/Chest: Effort normal and breath sounds normal. No respiratorydistress. She has no wheezes. She has no rales.Abdominal: Soft. Bowel sounds are normal. She exhibits no distension. There isno tenderness. There is no guarding.Musculoskeletal: She exhibits no edema or deformity.Neurological: She is alert and oriented to person, place, and time.Skin: Skin is warm and dry. She is not diaphoretic. There is pallor.Psychiatric: She has a normal mood and affect. Her behavior is normal. Judgmentand thought content normal.Nursing note and vitals reviewe d.Labs, Imaging and Other Diagnostics:Diagnostic tests reviewed:Labs from [facility] ED, Imaging from [facility] ED and EKG from [facility] EDSignature: Rachel Monroe, NPDate: November 25, 2019Time: 6:04 AMBlue Team [id number] Name Value Range Interpretation Code Description Data Marva rce(s) Supporting Document(s) ID Date Data Source [id number] 11/25/2019 12:40:51 PM EDT [facility] Name Value Range Interpretation Code Description Data Marva rce(s) Supporting Document(s) COLOR [facility] APPEARANCE [facility] SPEC GRAV URINE 1.017 (1.003-1.030) [facility] PH URINE 5.0 (5.0-7.5) [facility] LEUK ESTERASE 1+ (NEG) A [facility] NITRITE URINE (NEG) [facility] PROTEIN URINE (NEG) [facility] GLUCOSE URINE (NEG) [facility] KETONE URINE (NEG) [facility] UROBILINOGEN 0.2 mg/dL (0-1.0) [facility] BILIRUBIN URINE (NEG) [facility] BLOOD/HGB URINE (NEG) [facility] EPITHELIAL CELLS (NEG) [facility] HYALINE CASTS 1.5 [LPF] (0-5) [facility] BACTERIA 1+ [HPF] (NEG) A [facility] URINE WBC 7.1 [HPF] (0-8) [facility] URINE RBC 0.3 [HPF] (0-3) [facility] ID Date Data Source [id number] 11/25/2019 11:57:21 AM EDT [facility] Name Value Range Interpretation Code Description Data Marva rce(s) Supporting Document(s) URN CULTURE HOLD [facility] FOR ADD ON CULTURE ID Date Data Source [id number] 11/25/2019 07:51:42 AM EDT [facility] Name Value Range Interpretation Code Description Data Marva rce(s) Supporting Document(s) EKG [facility] LZFNIk8nVbJRNmHts1NwYcZwKSWdYU3cndq4A4F5zSXkS7JcnEOkg5aqD4FuS2OcYBFgIEKLGC7PySBw jb2 [file] j6HSJ4TA2a9PkJP0Z6AVUfDuipjE+bEkCyq1AjVcTLqu7J+HGVTgZ+TE-MOAK/Aj+QlisBEbdzgSDLEKZY8B eQBirrM7ptYgitBWhBxwa4thVmOyNcjC6qfsFsrrEe Aj+fArX6hVB9ZawVMGaHpsrKxolZ+y10ToxyXWxLaxpAt4teXgu3ojdL3nh+DNCqdEkddUxS0WphVkm5 83OfnnBdCxKpilKrKEQRuXqsWApKmXzwyeTWa2jzEXMlGS6nY2B1zwlXBdBbukf/ucz87TXtBBLcDCUd 1Gv8jK2T/FBBGgV+vDQLrUKb3+BAwI2JCo+1PK1pUc /61bsI/PjMi/Rw8fb5dJd5jxznQeBBVgdGJadpJIA7w0Kn4WdJJ3OfjXnRj5t6HGtTF8N/fA9BzEopb4 0XW8b/v7UVX7oK7ix7Z0egDyddNOCdnAKEWe7xsORAIP/job service specialist/MDPOjSXRyf4syPkze4YbMpAa3WvrlaL7 [file] cJVm+wqMbZ9uTOCD1S3uP+k325UPRdmNEYxpol2i2keiENb+IRONER MACHINE+EbXv9XASPjFHKFjQZR00ibQrMdqwQ [file] UUC0iFCzTlk8BmM2GilaFLDCIi== ID Date Data Source [id number] 11/26/2019 12:13:39 PM EDT [facility] Name Value Range Interpretation Code Description Data Marva rce(s) Supporting Document(s) MAGNESIUM 1.8 mg/dL (1.7-2.4) [facility] ID Date Data Source [id number] 11/25/2019 09:11:12 AM EDT [facility] Name Value Range Interpretation Code Description Data Marva rce(s) Supporting Document(s) TROPONIN I <0.05 ng/mL (<0.05) [facility] [place] Less than 0.05: Myocardial injury unlike lyGreater than or equal to 0.05: Highly suggestive of myocardial injuryCorrelation with rise and/or fall ofserial troponins, clinical symptomsand ECG changes is necessary. ID Date Data Source [id number] 11/25/2019 09:11:12 AM EDT [facility] Name Value Range Interpretation Code Description Data Marva rce(s) Supporting Document(s) SODIUM 139 mmol/L (136-145) [facility] POTASSIUM 4.2 mmol/L (3.6-5.2) [facility] CHLORIDE 111 mmol/L (100-108) H [facility] CO2 20 mmol/L (22-31) L [facility] ANION GAP 8 mmol/L (7-16) [facility] UREA NITROGEN 38 mg/dL (7-24) H [facility] CREATININE 1.07 mg/dL (0.60-1.00) H [facility] BUN/CREAT RATIO 35.5 RATIO (10.0-20.0) H [facility] GLUCOSE 89 mg/dL (70-99) [facility] CALCIUM 8.1 mg/dL (8.4-10.2) L [facility] TOTAL PROTEIN 5.9 g/dL (6.4-8.2) L [facility] ALBUMIN 3.2 g/dL (3.2-4.5) [facility] GLOBULIN 2.7 g/dL (2.7-4.3) [facility] ALB/GLOB RATIO 1.2 RATIO [facility] ALKALINE PHOSPHATASE 43 U/L (45-117) L [facility] BILIRUBIN,TOTAL 0.8 mg/dL (0.0-1.0) [facility] PLEASE NOTE:Total bilirubin results may be falselyelevated in patients taking Eltrombopag. AST (SGOT) 19 U/L (11-39) [facility] ALT (SGPT) 19 U/L (12-78) [facility] GFR 50 ml/min/1.73m2 (>59) L [facility] GFR ( AMER) >60 ml/min/1.73m2 (>59) [facility] GFR INTERPRETATION [facility] --NORMAL KIDNEY FUNCTION OR MILD DISEASE - GFR >OR= 60CHRONIC KIDNEY DISEASE - GFR 15 - 59RENAL FAILURE - GFR <15 Est. GFR calculation based on the MDRDstudy equation, which assumes a steadystate for creatinine. Est. GFR should notbe used for medication dosing. ID Date Data Source [id number] 11/25/2019 08:46:40 AM EDT [facility] Name Value Range Interpretation Code Description Data Marva rce(s) Supporting Document(s) PT 11.0 s (9.2-11.9) [facility] INR 1.05 [facility] [place] SUGGESTED THERAPEUTIC RANGES USING INR F ORSTABILIZED ANTICOAGULATED PATIENTS:STANDARD DOSE THERAPY INR 2.0-3.0 DVT, PE, PREVENT DVT OR EMBOLISMHIGH DOSE THERAPY INR 2.5-3.5 PREVENT EMBOLISM FROM MECHANICAL HEART VALVE ID Date Data Source [id number] 11/25/2019 07:47:31 AM EDT [facility] Name Value Range Interpretation Code Description Data Marva rce(s) Supporting Document(s) POC NOVA GLU 91 mg/dL (70-99) [facility] HUERTAS PERFORMED BY [facility] CLINICAL STAFF ID Date Data Source [id number] 11/26/2019 12:02:54 PM EDT [facility] SPEC EXP DATE 11/28/2019PATI ENT ABO/Rh A POSITIVEANTIBODY SCREEN NEGATIVETESTING SITE PERFORMED AT [address] [place] [address] [id number] BANK COMMENT BLOOD TYPE CONFIRMED.UNIT NUMBER [id number] COMPONENT TYPE LEUKOPOOR RED CELLSUNIT DIVISION 00STATUS OF UNIT TRANSFUSEDTRANSFUSION STATUS OK TO TRANSFUSECROSSMATCH RESULT COMPATIBLE Name Value Range Interpretation Code Description Data Marva rce(s) Supporting Document(s) TYPE AND SCREEN [facility] ANTIBODY SCREEN NEGATIVE ID Date Data Source [id number] 11/25/2019 08:36:55 AM EDT [facility] Name Value Range Interpretation Code Description Data Marva rce(s) Supporting Document(s) WBC 7.8 10*3/uL (4.1-11.0) [facility] RBC 2.53 10*6/uL (4.00-5.40) L [facility] HGB 7.6 g/dL (12.0-16.0) L [facility] HCT 22.8 % (36.0-47.0) L [facility] MCV 89.9 fL (80.0-95.0) [facility] MCH 30.0 pg (27.0-32.0) [facility] MCHC 33.3 g/dL (32.0-36.0) [facility] RDW 15.1 % (10.5-14.5) H [facility] PLT 204 10*3/uL (150-450) [facility] MPV 8.6 fL (7.1-10.7) [facility] ID Date Data Source [id number] 12/01/2019 09:52:39 AM EDT [facility] SPECIMEN DESCRIPTION PERIPHERAL 2SPECIAL REQUESTS NONECULTURE RESULTS NO GROWTH 6 DAYSREPORT STATUS FINAL 12/01/2019 Name Value Range Interpretation Code Description Data Marva rce(s) Supporting Document(s) ID Date Data Source [id number] 12/01/2019 09:52:39 AM EDT [facility] SPECIMEN DESCRIPTION PERIPHERAL 1SPECIAL REQUESTS NONECULTURE RESULTS NO GROWTH 6 DAYSREPORT STATUS FINAL 12/01/2019 Name Value Range Interpretation Code Description Data Marva rce(s) Supporting Document(s) ID Date Data Source [id number] 11/25/2019 03:05:00 AM EDT [facility] Patient: MIREILLE RODAS Report - [facility].VisitID: [id number] [place] [address] [phone], FRegistration Date/Time: 11/24/2019 19:13 Weight:58.5 kg (S). Height/Length:62 inches (S). BMI:23.6 PAST HISTORYProblems:Neuropathy [Chronic].Anxiety Reaction [Chronic].Acute Coronary Syndrome [Chronic].Heart Disease [Chronic].Aneurysm (brain X2) [Chronic]. (Left side )Hypercholesterolemia [Chronic].Gastroesophageal Reflux [Chronic].Hypertension [Chronic].Coronary Artery Disease [Chronic].Diabetes Mellitus Type 2 [Chronic].Subdural intracranial hemorrhage (disorder).Laceration.Vertigo [Intermittent].Dizziness [Intermittent].Cellulitis [Resolved].Contusion [Resolved].Laceration [Resolved].Epistaxis [Resolved] .Atypical Chest Pain [Resolved].Peripheral Vascular Disease [Resolved]. Additional Surgeries:Breast Biopsy.Cardiac Catheterization.Cardiac stents. (6 stents in September 2019 , 9 stents in march 2019 )Cataract Surgery.Cholecystectomy.Hysterectomy.Oophorectomy. (Unilateral)Stent in right leg.Tubal Ligation. Medications:Aspirin Oral (Tablet Chewable 81 mg) 1 tablet, daily every AM, last dose today .Atorvastatin Calcium Oral (Tablet 80 mg) 1 tablet, daily, last dose yesterday .Brilinta Oral (Tablet 90 mg) 1 tablet, 2x a day, last dose today .Carvedilol Phosphate ER Oral 12.5mg , 2x a day every AM, every PM, last dose today .DULoxetine HCl Oral (Capsule Delayed Release Particles 60 mg) 1 capsule, daily, last dose yesterday .Gabapentin Oral (Tablet 800 mg) 1 tablet, daily every PM, last dose yesterday .Isosorbide Mononitrate ER Oral (Tablet Extended Release 24 Hour 30 mg) 1 tablet, daily, last dose today .Levemir Subcutaneous 25 units, daily, last dose yesterday .Magnesium Oral (Capsule 500 mg) 1 capsule, daily, last dose today .metFORMIN HCl Oral (Tablet 1000 mg) 1 tablet, 2x a day, last dose today (takes 1500mg at night , 1000mg in the morning ).Ranolazine ER Oral (Tablet Extended Release 12 Hour 500 mg) 1 tablet, daily every AM, every PM, last dose today .Trandolapril Oral 1/2 tab (unknown dose), daily at bedtime, last dose yesterday .Victoza Subcutaneous (Solution Pen-injector 18 mg/3mL) 1.8 mg, daily every AM, last dose today . Allergies:No Known Drug Allergy. FAMILY HISTORYUnknown family medical history. (Electronically signed by Luis Carlos Diallo P.A. 11/25/2019 03:01) Name Value Range Interpretation Code Description Data Marva rce(s) Supporting Document(s) ID Date Data Source [id number] 11/25/2019 01:25:00 AM EDT [facility] TSYSORDER [id number] Name Value Range Interpretation Code Description Data Marva rce(s) Supporting Document(s) HEMATOCRIT 22.4 % 36.0-48.8 [facility] ID Date Data Source [id number] 11/25/2019 01:25:00 AM EDT [facility] TSYSORDER [id number] Name Value Range Interpretation Code Description Data Marva rce(s) Supporting Document(s) HEMOGLOBIN 7.4 gm/dL 12.0-16.0 [facility] ID Date Data Source [id number] 11/25/2019 01:25:00 AM [facility] TSYSORDER [id number] Name Value Range Interpretation Code Description Data [facility] Document(s) MAGNESIUM 1.8 mg/dL 1.8-2.4 [facility] ID Date Data Source [id number] 11/24/2019 09:19:00 PM EDT [facility] CHEST, FRONTAL AND LATERAL DATE OF EXAMI NATION: 11/24/2019 19:59 EDT CHEST 2 VIEWS INDICATION: Shortness of breath COMPARISON: 08/29/2012 TECHNIQUE: Frontal and lateral views of the chest were obtained. FINDINGS: The aorta is atherosclerotic. The chest wall and mediastinalstructures are otherwise unremarkable. There is no pleural disease. There arecalcified granuloma in the right lower lobe. The lungs are otherwise clear. IMPRESSION: No acute pulmonary disease Electronically signed in [id number] by: Ivna Pelletier M.D. 11/24/2019 21:13 EDT Name Value Range Interpretation Code Description Data Marva rce(s) Supporting Document(s) ID Date Data Source [id number] 11/24/2019 09:51:00 PM EDT [facility] TSYSORDER [id number] Name Value Range Interpretation Code Description Data Marva rce(s) Supporting Document(s) URINE COLOR. YELLOW [facility] URINE APPEARANCE CLEAR [facility] SPECIFIC GRAVITY,URINE 1.015 1.001-1.035 [facility] URINE LEUKOCYTE ESTERASE 1+(SMALL) NEGATIVE H [facility] URINE NITRATE NEGATIVE NEGATIVE [facility] PH,URINE 5.0 5.0-9.0 [facility] URINE PROTEIN NEGATIVE mg/dL NEGATIVE [facility] GLUCOSE (UA) NEGATIVE mg/dL NEGATIVE [facility] URINE KETONE NEGATIVE mg/dL NEGATIVE [facility] UROBILINOGEN NORMAL(0.2-1) mg/dL 0-1 R [facility] URINE BILIRUBIN NEGATIVE NEGATIVE [facility] URINE BLOOD NEGATIVE NEGATIVE [facility] ID Date Data Source [id number] 11/24/2019 07:58:00 PM EDT [facility] [id number] Name Value Range Interpretation Code Description Data Marva rce(s) Supporting Document(s) URINE WBC 1-3 /hpf 0-5 [facility] URINE EPITHELIAL CELLS 3+ /hpf 0 [facility] URINE BACTERIA 2+ NONE SEEN [facility] ID Date Data Source [id number] 11/24/2019 09:59:00 PM EDT [facility] TSYSORDER [id number] Name Value Range Interpretation Code Description Data Marva rce(s) Supporting Document(s) URINE AMPHETAMINES NEGATIVE <1000 ng/mL [facility] pital THC,URINE NEGATIVE <50 ng/mL [facility] URINE BARBITURATES NEGATIVE <300 ng/mL [facility] PCP,URINE NEGATIVE <25 ng/mL [facility] COCAINE, URINE NEGATIVE <300 ng/mL [facility] URINE,OPIATES NEGATIVE <300 ng/mL [facility] URINE,TCA NEGATIVE <1000 ng/mL [facility] IF A NEGATIVE RESULT IS OBTAINED AND ING ESTION OF TRICYCLICANTIDEPRESSANTS IS SUSPECTED, A SERUM SAMPLE SHOULD BEOBTAINED AND TESTED USING AN APPROPRIATE METHOD. URINE BENZODIAZEPINES NEGATIVE <300 ng/mL [facility] THESE TESTS ARE PERFORMED USING AN IMMU NOASSAY FOR THEQUALITATIVE DETERMINATION OF THE PRESENCE OF THE MAJORMETABOLITES OF DRUGS OF ABUSE. THESE TESTS ARE ONLY ASCREENING AND NOT CONFIRMATORY. CLINICAL CONSIDERATION ANDPROFESSIONAL JUDGMENT MUST BE APPLIED TO ANY DRUG OF ABUSETEST RESULT. ID Date Data Source [id number] 12/01/2019 10:53:00 AM EDT [place] #[facility] Name Value Range Interpretation Code Description Data Marva rce(s) Supporting Document(s) [facility] ID Date Data Source [id number] 12/01/2019 10:53:[address] [facility] BLDC #1 L-ARM Name Value Range Interpretation Code Description Data Marva rce(s) Supporting Document(s) [facility] ID Date Data Source [id number] 11/24/2019 08:37:00 PM EDT [facility] TSYSORDER [id number] Name Value Range Interpretation Code Description Data Marva rce(s) Supporting Document(s) PH 7.34 7.31-7.41 [facility] VENOUS PCO2 35.8 mmHg 41-51 L [facility] VENOUS PO2 31 mmHg 35-42 L [facility] VENOUS BLODD O2 SATURATION 40.0 % 68-77 L [facility] VENOUS BLOOD HCO3 18.7 meq/L 24.0-25.0 L [facility] BASE EXCESS -6.0 -3.0-3.0 L [facility] VENOUS BLOOD CO2 19.8 mmol/L 23.0-32.0 [facility] ID Date Data Source [id number] 11/25/2019 12:11:00 AM EDT [facility] TSYSORDER [id number] Name Value Range Interpretation Code Description Data Marva rce(s) Supporting Document(s) C REACTIVE PROTEIN < 0.5 mg/L 0.0-3.0 [facility] ID Date Data Source [id number] 11/24/2019 11:55:00 PM EDT [facility] TSYSORDER [id number] Name Value Range Interpretation Code Description Data Marva rce(s) Supporting Document(s) TSH 4.66 uIU/mL 0.36-3.74 H [facility] ID Date Data Source [id number] 11/24/2019 11:49:00 PM EDT [facility] TSYSORDER [id number] Name Value Range Interpretation Code Description Data Marva rce(s) Supporting Document(s) LACTIC ACID 3.4 mmol/L 0.4-2.0 H [facility] ID Date Data Source [id number] 11/24/2019 11:42:00 PM EDT [facility] Name Value Range Interpretation Code Description Data Marva rce(s) Supporting Document(s) ETHYL ALCOHOL 0.00 % 0-0.01 [facility] ID Date Data Source [id number] 11/24/2019 08:46:00 PM EDT [facility] [id number] Name Value Range Interpretation Code Description Data Marva rce(s) Supporting Document(s) MAGNESIUM 1.2 mg/dL 1.8-2.4 L [facility] ID Date Data Source [id number] 11/24/2019 11:42:00 PM EDT [facility] Name Value Range Interpretation Code Description Data Marva rce(s) Supporting Document(s) TROPONIN I < 0.017 ng/mL 0.0-0.056 [facility] ID Date Data Source [id number] 11/24/2019 11:42:00 PM EDT [facility] Name Value Range Interpretation Code Description Data Marva rce(s) Supporting Document(s) CREATINE PHOSPHOKINASE 40 U/L 26-192 [facility] ID Date Data Source [id number] 11/24/2019 11:42:00 PM EDT [facility] Name Value Range Interpretation Code Description Data Marva rce(s) Supporting Document(s) LIPASE 451 U/L 73-393 H [facility] ID Date Data Source [id number] 11/24/2019 08:46:00 PM EDT [facility] TSYSORDER [id number] Name Value Range Interpretation Code Description Data [facility] r[facility](s) Supporting Document(s) GLUCOSE 81 mg/dL 74-106 [facility] BLOOD UREA NITROGEN 48 mg/dL 7-18 *H [facility] ital CREATININE 1.3 mg/dL 0.6-1.0 H [facility] SODIUM 136 mmol/L 136-145 [facility] POTASSIUM 4.4 mmol/L 3.5-5.1 [facility] CHLORIDE 102 mmol/L 98-107 [facility] CO2 21 mmol/L 21-32 [facility] CALCIUM 9.1 mg/dL 8.5-10.1 [facility] ANION GAP 13.0 mmol/L 5-12 H [facility] GLOMERULAR FILTRATION RATE 40 mL/min [facility] GFR IS CALCULATED IN mL/min/1.73m2 MALINDA L FUNCTION: >90MILDLY DECREASED: 60-89MILDY TO MODERATELY DECREASED: 45-59 MODERATELY TO SEVERELY DECREASED: 30-44SEVERELY DECREASED: 15-29RENAL FAILURE: <15 AST 21 U/L 15-37 [facility] ALT 24 U/L 12-78 [facility] ALKALINE PHOSPHATASE 40 U/L 46-116 L [facility] pital TOTAL BILIRUBIN 0.5 mg/dL 0.2-1.0 [facility] TOTAL PROTEIN 6.9 g/dl 6.4-8.2 [facility] ALBUMIN 3.6 gm/dL 3.4-5.0 [facility] ID Date Data Source [id number] 11/24/2019 11:10:00 PM EDT [facility] TSYSORDER [id number] Name Value Range Interpretation Code Description Data Marva rce(s) Supporting Document(s) BLOOD TYPE ABO A [facility] RH TYPE POSITIVE [facility] ANTIBODY SCREEN NEGATIVE [facility] CROSSMATCH COMPATIBLE [facility] SEE TRANSFUSION RECORD IN [facility]YANNA FOR TRANSFUSION CROSSMATCH COMPATIBLE [facility] SEE TRANSFUSION RECORD IN [facility] AYANNA FOR TRANSFUSION ID Date Data Source [id number] 11/24/2019 08:59:00 PM EDT [facility] l TSYSORDER [id number] Name Value Range Interpretation Code Description Data Marva rce(s) Supporting Document(s) PROTHROMBIN TIME (PATIENT) 11.0 SECONDS 9.2-11.6 [facility] INR 1.06 0.87-1.06 [facility] ID Date Data Source [id number] 11/24/2019 08:59:00 PM EDT [facility] l TSYSORDER [id number] Name Value Range Interpretation Code Description Data Marva rce(s) Supporting Document(s) PARTIAL THROMBOPLASTIN TIME 21.4 SECONDS 21.4-30.2 [facility] ID Date Data Source [id number] 11/24/2019 08:42:00 PM EDT [facility] CALLED H&H TO LEONARDO [id number] Name Value Range Interpretation Code Description Data [facility] Supporting Document(s) WHITE BLOOD COUNT 8.5 K/mm3 4.0-10.0 [facility] RED BLOOD COUNT 2.18 M/mm3 4.00-5.50 L [facility] HEMOGLOBIN 6.3 gm/dL 12.0-16.0 *L [facility] HEMATOCRIT 19.9 % 36.0-48.8 *L [facility] MEAN CELL VOLUME 91.3 fl 80-96 [facility] MEAN CORPUSCULAR HEMOGLOBIN 28.9 pg 27.0-31.0 [facility] MEAN CORPUSCULAR HGB CONC 31.7 g/dl 32.0-36.0 L [facility] RED CELL DISTRIBUTION WIDTH 15.0 % 10.0-14.5 H [facility] PLATELET COUNT 263 K/mm3 172-450 [facility] MEAN PLATELET VOLUME 10.9 fl 9.0-13.0 [facility] pital GRAN % 71.1 % 50-80.0 [facility] IG% 0.5 % 0.0-0.2 H [facility] LYMPH % 20.8 % 25.0-50.0 L [facility] MONO % 6.3 % 2.0-10.0 [facility] EOS % 1.2 % 0-5.0 [facility] BASO % 0.1 % 0.0-2.0 [facility] GRAN # 6.1 K/mm3 2.0-8.00 [facility] IG# 0.0 K/mm3 0.0-0.2 [facility] LYMPH # 1.8 K/mm3 1.0-5.0 [facility] MONO # 0.5 K/mm3 0.10-1.20 [facility] EOS # 0.1 K/mm3 0.0-0.5 [facility] BASO # 0.0 K/mm3 0.0-0.2 [facility] ID Date Data Source [id number] 11/24/2019 09:38:00 PM EDT [facility] TSYSORDER [id number] Name Value Range Interpretation Code Description Data Marva rce(s) Supporting Document(s) Adenovirus Not Detected Detected [facility] Coronavirus 229E Not Detected [facility]ed [facility] Coronavirus HKU1 Not Detected Detected Not [facility] Coronavirus NL63 Not Detected Detected Not [facility] Coronavirus OC43 Not Detected Detected Not [facility] Sars Cov 2 Not Detected Detected Not [facility] Metapneumovirus Not Detected Detected Not [facility] Human Rhinovirus Not Detected Detected Not [facility] Influenza A Not Detected Detected Not [facility] Influenza B Not Detected Detected Not [facility] Parainfluenza Virus 1 Not Detected Detected Not [facility] Parainfluenza Virus 2 Not Detected Detected Not [facility] Parainfluenza Virus 3 Not Detected Detected Not [facility] Parainfluenza Virus 4 Not Detected Detected Not [facility] Respiratory Syncytial Virus Not Detected Detected Not [facility] Bordetella parapertus ([id number]) Not Detected Detected Not [facility] Bordetella pertussis (ptxP) Not Detected Detected Not [facility] Chlamydia pneumoniae Not Detected Detected Not [facility] Mycoplasma pneumoniae Not Detected Detected Not [facility] The Above results have been determined b y using the [employer] system.[employer] is an automated in vitro diagnostic system thatutilizes nested multiplex Polymerase Chain Reaction (PCR)and high-resolution melting analysis to detect and identifymultiple nucleic acid targets from clinical specimens. ID Date Data Source [id number] 11/24/2019 12:21:25 PM EDT [facility] Name Value Range Interpretation Code Description Data Marva rce(s) Supporting Document(s) Discharge Summary [facility] CPGWLb1gKdRYWpDs37/JVXjtHNJlj4HrBAlzNVg3SDhgRDUvC7ScXIJ7lX9bCSV5SPsROxNcXqEzMMFf [facility] [file] ICAgICAgICAgICAgICAgICAgICAgICAgICAgICAgIC PmFXGcCMEvGBMfBGMvBBMcVJTwAIDdJSTuUXZvKPDrDMBdIKFtWTIdXC7ZHIUnUTPfFKNsOEQjSPLoEI AgICAgICAgICAgICAgICAgICAgICAgICAgICAgICAgICAgICAgICAgICAgICAgICAgICAgICAgICAgIC MaYYLyDOXkJGLxIAIqTLGiLXYaJIFbNV4ORFNuSXLy ICAgICAgICAgICAgICAgICAgICAgICAgICAgICAgICAgICAgICAgICAgICAgICAgICAgICAgICAgICAg DYQjZOKaKFFyEWByQXHvWAWgCEMhLWZbCCOoSBZdOTUgBZ0LTWJzNIUyZWYjFAEeKZUsNCRjOECqXBRk ICAgICAgICAgICAgICAgICAgICAgICAgICAgICAgIC HgCUBvDQGsTPZiFSXuWEKlYQBoMPVzLSKxITDzNTTvQDQqFGNpBWGmNYEnEQ0IYJGwMLGcTRYdDBFuRU AgICAgICAgICAgICAgICAgICAgICAgICAgICAgICAgICAgICAgICAgICAgICAgICAgICAgICAgICAgIC RqLIPwXSSgFHBvAAOmEDPwPIWvCYTwKHNuIC2GUEZt ICAgICAgICAgICAgICAgICAgICAgICAgICAgICAgICAgICAgICAgICAgICAgICAgICAgICAgICAgICAg EVPqPPArBRDsRIKtWEDoKMVwMCHcZTTqUQJsLAXsBDQtLAWuSS1IBWWdEQJjHPLuAAEfBMNeUXLgSFDh ICAgICAgICAgICAgICAgICAgICAgICAgICAgICAgIC KgQGSmRNGvWZGcKRHjEMRjCVPpSCWmYCJgVULhNHXgWPOlMGPeBEGqXFBxPFZaNR7BHFVbESBdXJXiYA AgICAgICAgICAgICAgICAgICAgICAgICAgICAgICAgICAgICAgICAgICAgICAgICAgICAgICAgICAgIC RcEPGkESVxQDWaZNPhUXPpAJPoVDNqWNOdNRIsIU0R ICAgICAgICAgICAgICAgICAgICAgICAgICAgICAgICAgICAgICAgICAgICAgICAgICAgICAgICAgICAg UGJnIWNvJLKvKANoKQZpJXHiSELnGWRxHIUsSKZxVBFpPOKrMVIoBV7DYYBwSPQfFXPmHXJmRCRfEUZo ICAgICAgICAgICAgICAgICAgICAgICAgICAgICAgIC UuVSHfJPWrHDJaSEHaBVGaSENwUXZfMTYdHKPbSLKiIFQlYKSbAVRwURKeDDVbYWFcOO5WUB31nVTrw7 J1KHUoYF3jqcu/Ir9HDIpchxCjsDAnUZ9DEbSjLO7meh1EPjBuFX3cjm0KRGwZOxMgE5M5dBErJJYlBG EROzRtT43cPArhIc34JNtcUKZfEsFaDQp1Lz0OJnTk A7ziPUPzHbH1MNOkQqL1KMWkCpK3LXGuFvOvEXKlEWWaDGToRJITZKJ1HSRmGfAfFMiwKL6Im5OxoVJ5 DQo+Xh1AKG3oy2JsXWl4RIPaDG8pti9PEKvDKhPfD9CbieN2USJnBLJhPs4ABOSvXVVytZD8MXWqPFBP HoEsE1QzyK73RPLSLl4+DQplbmRvYmoNCjQxIDAgb2 EcNHw9FK7ZENQeLRn8jUHkHEchN7ixjwztMIU5jK4pafsqQpfpOfidr4qkDOwpD5pkn7WhFXjaOtTuDS MnMz6pQE6yIIFtRST2VnDkLQDNSY6JYNRzXPOzoJEiKRPxFMXQOI1BIZraSZK0DZIwetYqyYKfWOchIP 9QYXJlbnQgNDAgMCBSDQo+Nv2LCP4kj2QdRVn3HhMl AF0mgb6CGNgTMzWaV3E7iQQfN5G6PFvkZa2KZBOrNGRqXpxtCKOSGSddQX1MAT9vohJ0NK7ZyJWcMHPr WSZkrDSiSKv6E13umZGnLXdfYU5TJCB+Munira+Rw3VIKLkMUSvNXIrVdEwJLFSHeQcB3DrT8ORf8YlP9Gl WR24wLtlqgDbOBxkDK6IFB2nIGKkKCQDGN9GwZHrtX 2hzqC5XIQlWZPVCoTxF64xiGNtXXDeOGE0DOFpGc5RONLvM4QofqGbaEapnpHaICXsOXISDX3QENwrau SzvRLdmDxeIX51eWjqNS6MYh1MSiOzKS6cwg6ZlYJwAu4WLWR7Ss3IQEYsDOFpIJHgNMW4XGMuZmKzLF aeYWTfDANqJCX4EDTsOWNbPJ0FYfPtKXUyFCY9XEhu FDSjMHGede5GDKRsHXW1GlD7GVGlLVWmHRSzREylRFNgYVDmWVL7ZNFbPHGlZC0NZsCcDQRbVNElNJxz SONnVVTcjw6ULMFfYSDcPoJxCGRaCAYoLVHyIYowOTOiGXK5PBK2UCVmBWYhIP1YVaPlRITlPWhrYmad RLEuYQMgli3DOHBvNGSjUZRqNNUaWRBqEMLgULjaZQ XvVSIcWhM6TPXxLJNxQS7MZfQlXGRzTNUlRJhtRNVaMNPqia0HJXFaUYDyRAS7WHVnSAJjOEGtKQvbKJ SaGFL8EWTrICBoUJOxZO8GMmDuYKOwYPL7XskpIOYsCJProa0PCSGsOMXwULMmCrQrMGLjAAMqSXqmZN AeFVP3QzI2LCTzEBJnMW9WDyXsZMXfWLfzSFamHKZf AGWwjl7EZZZjFGRbOCW7DaEqDGIbQCIdQCgiWFTuHIP2Ekt9VXDsGCYaRF6TOiRqILKeTgI1HqvsXQQu KFMfhw5SSFMuHHUwBAa4BCXiOSJxJXKtGXzqNRHrTDVaYFR7YXAqVLKyQK2BDyMzYELcJmF0RRsoPJIf ILYbzs9QFPJjPDHdRwH4ABZmTMBmVBCqWOxiFEGhCS XoYhn9XBUnXLTpEE9HQjNhCUOnEcOuIxxsGWJvAZOauo4ELAKoOAFaQvLcQYKyUGCzIBSlTEneHEVcRR HhFyK4DTViQHHkAB8UXjZcSGTiXiLvJXEpSUQlTBVbcs8TTSLpICGpZJAnVMYrPMEgZMXpDMjuZCAbVD W4WzO9RNQmXODlKO9EWnLoMGTrRtS0HxkyCZLrUGTu bm4QVHDfDSYxAlBoJGNuVCFeGQSyUGjfAULeYGAcMWlbTEHfUXAkJJ0OIjFjUZHsFYNwXDdvLQTdGYDq qn7MDCRgOJO6OOP1VDZuMWCfINEaUAucDRDaVCDzPmD4FGXnSUNfVJ3WQqGjBFAgXOB8HMUiYFXsBNKl om2OKIRwREP1HtGeRHIpAEUxLIKpCHkeJRIzTFUvQq D4EILpWBUzUL9TRrQzABFjIMJ9XjtzIMEmMUFpwp5YCPXaLGI0SqleGRRkWYGtRWErWOy1zmPrbIJyYN w0QB5DM9UbuzMqUQHSWn7Kw079ZCCzGUMuRy4SZ8hgZs3kEMFsAVVHWb3GVYc5ZwNqAJV7MBHuXmDxKO hkMzAwNWVjYjBlMjUxMjkyNTk+IDxiNTEwZDlhNGRm COU2KRBaDUF7HCQiHCZgZTWwLQH7RI8jNBBTJi8+DFgknUGmuLsiGANNRjU6YIo8DStwOECHXy2H ID Date Data Source [id number] 11/24/2019 12:00:00 AM EDT [facility] Name Value Range Interpretation Code Description Data Marva rce(s) Supporting Document(s) 2019 Novel Coronavirus RNA [facility] This lab was ordered by [facility] L aboratory and reported by [facility]. ID Date Data Source [id number] 11/20/2019 11:33:53 AM EDT [facility] Name Value Range Interpretation Code Description Data Marva rce(s) Supporting Document(s) Consultation [facility] IAIVLx6zTeEBDpBj89/DGKipGMQkx1GeICtyPHq2MXroLVBvS0BdTWH1jH7wNFC8QHsLXuOgIiLsEaKm lbm PsXnoQFrTsXEZwGroANqVaLAqdJxywhPLzHI0UgFH6EBLmV01nOOJcKMObV3UdVWXgXYj+Vp5ECKXxvU IhHC2XJezC5Q4Budz0Wp4bZX2YpUBMIYN9i49+/hKg60RFjIlWsDVn2tms5kksrMFd9no4wpuTtfY5Kl gbLDnErKc4CHxpQJjAhS3wtp1+G7xv0GdubU/f/Bmn vrgeiH/+QyymKb+ZtviTTSIP+O6amwSP+a0jv61b/7HznKPATp6u1acTZ8TRxthFvBce3h2u/iQufxUy PKKUMmJFwJLFF4faTJfJ+wVYz+7XwJF7f6RNenU6MWYrPNXGKKxoNXMZ4F7olCE3GKZo9w3nySHbMwGj 2GVK5OcJwv6+elGAUVyCx+XcGjyn/P9vMG2QXGmASf YUDOBoTMGUgp9+KuCjS/DnubBNZdimk53s2Q3nGE9dOlXbdgXNsm12EYGwpDKY8EZtKK29AIh1VwQwcs /OlqYruqF6mwZzrD4zbeIY2/N36l8RvV+9awbU7dpnZjeCKfPB/rIer9Wo0o+0nw+j9rLmoH7F3mAc/3 riTjJ+TrzUXY1Uhg2iCDq+Gc/VIYtjw1pTy6dGCSaK ZmuexrMPI7j5gH8vh3YYocBcXT6p/+zE2ZEXvtTt0NBf1qSkhwfFHYONIaZBk/wdUuNgEK0K90GBbbir Bp5MozVAmz2+kZX2AXm8kk57iuh2L8KkCu2Z9RduFLlcCxrLPmVcyEDquwcl23vd0Q911aTVVIHrMIE9 2vEm7a0hF/680g95K93a4LrlODobxWFcmJWw650l5M [file] ZzvK2Ln6srk+YY0B9PrMVh0vmY8YxyspBhpjFj/Jorge Alberto [file] [facility]qKVX1pmKdtB8GWWO0ST0txyERaY/af/Uq0m3mhQyFqTC9teQb6iR1R2PE4KaOuOr30X [file] ICAgICAgICAgICAgICAgICAgICAgICAgICAgICAgIC AgICAgICAgICAgICAgICAgICAgICAgICAgICAgICAgICANCiAgICAgICAgICAgICAgICAgICAgICAgIC AgICAgICAgICAgICAgICAgICAgICAgICAgICAgICAgICAgICAgICAgICAgICAgICAgICAgICAgICAgIC AgICAgICAgICAgICAgICANCiAgICAgICAgICAgICAg ICAgICAgICAgICAgICAgICAgICAgICAgICAgICAgICAgICAgICAgICAgICAgICAgICAgICAgICAgICAg ICAgICAgICAgICAgICAgICAgICAgICAgICANCiAgICAgICAgICAgICAgICAgICAgICAgICAgICAgICAg ICAgICAgICAgICAgICAgICAgICAgICAgICAgICAgIC AgICAgICAgICAgICAgICAgICAgICAgICAgICAgICAgICAgICANCiAgICAgICAgICAgICAgICAgICAgIC AgICAgICAgICAgICAgICAgICAgICAgICAgICAgICAgICAgICAgICAgICAgICAgICAgICAgICAgICAgIC AgICAgICAgICAgICAgICAgICANCiAgICAgICAgICAg ICAgICAgICAgICAgICAgICAgICAgICAgICAgICAgICAgICAgICAgICAgICAgICAgICAgICAgICAgICAg ICAgICAgICAgICAgICAgICAgICAgICAgICAgICANCiAgICAgICAgICAgICAgICAgICAgICAgICAgICAg ICAgICAgICAgICAgICAgICAgICAgICAgICAgICAgIC AgICAgICAgICAgICAgICAgICAgICAgICAgICAgICAgICAgICAgICANCiAgICAgICAgICAgICAgICAgIC AgICAgICAgICAgICAgICAgICAgICAgICAgICAgICAgICAgICAgICAgICAgICAgICAgICAgICAgICAgIC AgICAgICAgICAgICAgICAgICAgICANCiAgICAgICAg ICAgICAgICAgICAgICAgICAgICAgICAgICAgICAgICAgICAgICAgICAgICAgICAgICAgICAgICAgICAg ICAgICAgICAgICAgICAgICAgICAgICAgICAgICAgICANCiAgICAgICAgICAgICAgICAgICAgICAgICAg ICAgICAgICAgICAgICAgICAgICAgICAgICAgICAgIC AgICAgICAgICAgICAgICAgICAgICAgICAgICAgICAgICAgICAgICAgICANCjw/jPWqA8uclGMgseL7C8 miCf0BDr2LQM3px0AyUCKtDOzuykLhGkbRVsDeKREaFvxZIwb9NMjzSY6HzTLeI0KgN2FpZZzkJV7UYR MgZFYuzUFuMAVfSPRtRsZ2MPHjOXzjFJ3XdSUwLPgc LGXrNIVtZoHfAWEeDZGiJOHsBBNoEYNRYPGxEUItJrZpNTvbZE4We1FusXZ2BDo+In6BJU0tu7QpAHka MKBqFW3lbn7SFFnSBuQbV5AmqsG1DYQcFZSmGn9VBHWhABPepLAgKQOdGZECRvXdS2WdsR33RSZTIk7+ JMfmcdTuGckZKeOrOESdh7ZaYAl0GG1NGBKkLXo9eX NuU24ge5FnaIImKmivLV6rgyA1TSBtCFEheg6ikqyeJYXuHEKbNk5nFS7lZTDhCRYmSoE7FLUHRL0TMR RuDQPgmXDuCYYkRLPVIK4OFXceNXH1XDFyrrQytTKpLChaVT9TJRAgxnZwSwucWUFEAVk+Ya8QIT7jq1 IwLEfwGAIlCS2nye8MGBdUKuSgQ9D6vOMzI1L5SAyy Hv6HUQBhGMVoDnhcVQEKEAenSA9RHZ3zsnI6RM9StYJrUGAzJAJibEXzNXc7J20ryRNpCKxvMN4ULXE+ Munira+Na1YYJDyXEIgOPIxJeNbAIRXEfKzB8OvT6KTr1RfI4UuKP50dMpystPeGUxbFL0YGV4yANPkEPIZ YO0QwIUegY3wjbJbEKEmBYIPHhKvG90wfYPvJZKbRI T2DJAkIo0THJMiT4WczfCbeDidpfBwCXRnYIRJFG7XSYgelgHnoHCubPlbRC73tUefIC1AEn8MWgXtJN 8myf2FhYJzQv2BMIVvDo7XKRUxZFViUDMpDYA3GBJtLpRoHMaxQVEpGEVdXFR2BDVeXIJrND8CAwQkTZ HkTaykHLPvTJLbQDRnch0PDYJqRTF2MBH3DsUnTOVq ACBiRVdyXSCoYMVjCRN4YATfZSMzHI1YCoGoOGSjQUY8CHFwJWFqXFJurh6CHMXdWZRqTdN0NEUuDFRy HENyFFheSRIyRHS7ZPm7UGEoNZCbZD3LJuZlPXBaWOO0KUIvAHYvGJXitm9UDHWyMWHkSRZ5UHQcCNKh RIEvRFzhKZEcLZT5SEj2RTKvNGBgZF1ALlBiHPPtCB P9MHorZELrOQLyzq0AGPPeIOAwRqS4IIQoHEWcUOOvJQsnZGMkXHX8JjNtGRWwDWPuUL1ZMdFdWJVcBL O8ONbrJGThRVJwji6RTCHcXWGsXYQ9EEVfZKFmWXXfZSmaJAIzBVA8Jia6JBUvMWSfGZ8YCcEpTTNrKI C6JAevUOIyVPWydp3WIUNiSADuXaioKKWkFLUhBFPh YPblTQSwFQL5EJWdLFTyUDIxLH3KFzThFUMiDQllYKplFNJsAJVdpp2IZABsDCGfCEG1KiOyRTPwNJBc VTrlRFSlHSO6DUDuUTLnSAMdHA1XUqNnYISmJnwuFfKyMYGdQLHuwm2FHBCmHSBvVCF6CCVtNDYhHGUm PQjvESGnWCV8HZU0EFWfQUQwBR2VYnPcFZAeXlb9Ch afBEHsWJChzu8TYLZkYCUrGIV2OkLaXUShKHIhLSslJEQuEFA5QNCjKYPeXVCcGB2BDkQeVZNdXKWfHr lkWEIeQJLocq0SEXIpKQE4SIUvPWHbYSZxRXSoCJscVZMrOXMvHAmqGUHdIIMgMQ8GEzOeRFbuMCSHPx p1NFwxB4f6HVLrKa0KL5Kvg9WtRvEmEBPPWRfpUO1z eiEvXZLmWs9UO1cZHaobDaAnZIJvOAUrIiSqA0ThBWanK0PgJYTlHtH0OCjfBB9qVUQmKoOtNyK3FEF4 PJNqUsXbZ1Y0RsX5KhVtFMT5DODsQxNmVG2XSi2QXzI8GLU1bFWuEr1HLIH5ScxAVsLrMK8HKAc= ID Date Data Source [id number] 11/15/2019 04:28:27 PM EDT [facility] CT HEAD WITHOUT CONTRAST [id number] LTInterpreted by:Jorge Cramer MDExamination: CT head without contrastTECHNIQUE: Contiguous axial CT images of the head were acquired from the base of the skull to the vertex and submitted for interpretation. Automated dose lowering techniques and/or adjustment according to patient size were utilized for this examination.IV contrast: NoneINDICATION: Evaluation of subdural hematoma after resumption of antiplateletsCOMPARISON: CT head without contrast 11/14/2019FINDINGS:Slight interval decrease in the left frontotemporal convexity hematoma. There is redemonstration of the tracer extension along the anterior falx. There is no mass effect visualized on the underlying cerebral parenchyma, no midline shift visualized. Redemonstrated hyperdensity at the anterior C1 level which may reflect pannus formation. There is no evidence for acute territorial infarct. No evidence for additional hemorrhage. Mild prominence of the ventricular system likely due to cerebral atrophy. Basal cisterns and foramen magnum are patent. Mild subcortical and periventricular white matter hypodensities, likely representing small vessel ischemic disease. Atherosclerotic calcifications seen along the intracranial portions of the internal carotid arteries and vertebral arteries, unchanged.The calvarium is intact. There is near complete opacification of the right maxillary sinus, unchanged. The rest of the paranasal sinuses and mastoid air cells are otherwise clear.IMPRESSION:1. Interval decrease in the left frontotemporal convexity acute subdural hematoma with trace extension along the anterior falx. No mass effect is seen on the underlying cerebral parenchyma, no midline shift visualized.2. Mild chronic microvascular white matter ischemic disease.3. Severe right maxillary sinusitis, unchanged.This document has been electronically signed by Gigi cMintyre MD on 11/15/2019 4:26 PM Name Value Range Interpretation Code Description Data Marva rce(s) Supporting Document(s) ID Date Data Source [id number] 11/15/2019 12:29:20 PM [facility] Name Value Range Interpretation Code Description Data Marva rce(s) Supporting Document(s) Glucose [Mass/volume] in Capillary blood by Glucometer 218 mg/dL 70- 140 [facility] ID Date Data Source [id number] 11/15/2019 09:14:21 AM [facility] Name Value Range Interpretation Code Description Data Marva rce(s) Supporting Document(s) Glucose [Mass/volume] in Capillary blood by Glucometer 153 mg/dL 70- 140 [facility] ID Date Data Source [id number] 11/15/2019 06:38:47 AM [facility] Value Range Interpretation Code Description Data Marva rce(s) Supporting Document(s) Bicarbonate [Moles/volume] in Serum 21 mmol/L 22-29 L [facility] Chloride [Moles/volume] in Serum or Plasma 106 mmol/L 98-107 [facility] Creatinine [Mass/volume] in Serum or Plasma 0.85 mg/dL 0.50-0.90 [facility] Glucose [Mass/volume] in Serum or Plasma 130 mg/dL 70-140 [facility] Potassium [Moles/volume] in Serum or Plasma 3.9 mmol/L 3.4-5.1 [facility] Sodium [Moles/volume] in Serum or Plasma 139 mmol/L 136-145 [facility] Urea nitrogen [Mass/volume] in Serum or Plasma 18 mg/dL 8-23 [facility] Anion gap 3 in Serum or Plasma 12 mmol/L 8-15 [facility] Osmolality of Serum or Plasma by calculation 292 mosm/kg 275-300 [facility] Creatinine/Urea nitrogen [Mass Ratio] in Serum or Plasma 21 [facility] Calcium [Mass/volume] in Serum or Plasma 8.8 mg/dL 8.8-10.2 [facility] Glomerular filtration rate/1.73 sq M pre dicted among non-blacks [Volume Rate/Area] in Serum or Plasma by Creatinine-based formula (MDRD) 67 mL/min/1.73m2 >60 [facility] Glomerular filtration rate/1.73 sq M pre dicted among blacks [Volume Rate/Area] in Serum or Plasma by Creatinine-based formula (MDRD) 78 mL/min/1.73m2 >60 [facility] ID Date Data Source [id number] 11/15/2019 06:38:47 AM [facility] Name Value Range Interpretation Code Description Data Marva rce(s) Supporting Document(s) Magnesium [Mass/volume] in Serum or Plasma 1.4 mg/dL 1.6-2.4 L [facility] ID Date Data Source [id number] 11/15/2019 06:49:39 AM [facility] Name Value Range Interpretation Code Description Data Marva rce(s) Supporting Document(s) Leukocytes [#/volume] in Blood by Automated count 6.2 10*3/uL 4-10 [facility] Erythrocytes [#/volume] in Blood by Automated count 2.96 10*6/uL 4.1- 5.3 L [facility] Hemoglobin [Mass/volume] in Blood 8.8 g/dL 11.5-15.5 L [facility] Hematocrit [Volume Fraction] of Blood by Automated count 25.9 % 3 6-45 L [facility] Erythrocyte mean corpuscular volume [Entitic volume] by Auto mated count 87.3 fL 80-96 [facility] Erythrocyte mean corpuscular hemoglobin [Entitic mass] by Automated count 29.8 pg 27-33 [facility] Erythrocyte mean corpuscular hemoglobin concentration [Mass/volume] by Autom[facility] 34.1 g/[facility] width [Ratio] by Automated count 15.7 % 11.5-14.5 H [facility] Platelets [#/volume] in Blood by Automated count 183 10*3/uL 150-400 [facility] Confirmed Differential cell count method - Blood [facility] Neutrophils/100 leukocytes in Blood by Automated count 60 % [facility] Lymphocytes/100 leukocytes in Blood by Automated count 28 % [facility] Monocytes/100 leukocytes in Blood by Automated count 9 % [facility] Eosinophils/100 leukocytes in Blood by Automated count 2 % [facility] Basophils/100 leukocytes in Blood by Automated count 1 % [facility] Neutrophils [#/volume] in Blood by Automated count 3.76 10*3/uL 1.8-7 .0 [facility] Lymphocytes [#/volume] in Blood by Automated count 1.76 10*3/uL 1.2-4 .0 [facility] Monocytes [#/volume] in Blood by Automated count 0.56 10*3/uL 0-0.8 [facility] Eosinophils [#/volume] in Blood by Automated count 0.12 10*3/uL 0-0.5 [facility] Basophils [#/volume] in Blood by Automated count 0.03 10*3/uL 0-0.2 [facility] Nucleated erythrocytes/100 leukocytes [Ratio] in Blood by Automated count 0 /100{WBCs} 0-0 [facility] ID Date Data Source [id number] 11/14/2019 09:34:43 PM [facility] Value Range Interpretation Code Description Data Marva rce(s) Supporting Document(s) Glucose [Mass/volume] in Capillary blood by Glucometer 173 mg/dL 70- 140 H [facility] ID Date Data Source [id number] 11/14/2019 07:48:14 PM [facility] Value Range Interpretation Code Description Data Marva rce(s) Supporting Document(s) Bicarbonate [Moles/volume] in Serum 24 mmol/L 22-29 [facility] Chloride [Moles/volume] in Serum or Plasma 100 mmol/L 98-107 [facility] Creatinine [Mass/volume] in Serum or Plasma 0.96 mg/dL 0.50-0.90 [facility] Glucose [Mass/volume] in Serum or Plasma 147 mg/dL 70-140 H [facility] Potassium [Moles/volume] in Serum or Plasma 3.8 mmol/L 3.4-5.1 [facility] Sodium [Moles/volume] in Serum or Plasma 134 mmol/L 136-145 L [facility] Urea nitrogen [Mass/volume] in Serum or Plasma 22 mg/dL 8-23 [facility] Anion gap 3 in Serum or Plasma 10 mmol/L 8-15 [facility] Osmolality of Serum or Plasma by calculation 284 mosm/kg 275-300 [facility] Creatinine/Urea nitrogen [Mass Ratio] in Serum or Plasma 23 [facility] Calcium [Mass/volume] in Serum or Plasma 8.7 mg/dL 8.8-10.2 L [facility] Glomerular filtration rate/1.73 sq M pre dicted among non-blacks [Volume Rate/Area] in Serum or Plasma by Creatinine-based formula (MDRD) 58 mL/min/1.73m2 >60 L [facility] Glomerular filtration rate/1.73 sq M pre dicted among blacks [Volume Rate/Area] in Serum or Plasma by Creatinine-based formula (MDRD) 67 mL/min/1.73m2 >60 [facility] ID Date Data Source [id number] 11/14/2019 06:17:12 PM [facility] Name Value Range Interpretation Code Description Data Marva rce(s) Supporting Document(s) Glucose [Mass/volume] in Capillary blood by Glucometer 148 mg/dL 70- 140 H [facility] ID Date Data Source [id number] 11/14/2019 05:06:12 PM [facility] Name Value Range Interpretation Code Description Data Marva rce(s) Supporting Document(s) History and Physical [facility] [id number] lbm [file] AgICAgICAgICAgICAgICAgICAgICAgICAgICAgICAg ICAgICAgICAgICAgICAgICAgICAgICAgICAgICAgICAgICAgICAgICAgICAgICAgICAgICAgICAgICAg ICAgICAgICANCiAgICAgICAgICAgICAgICAgICAgICAgICAgICAgICAgICAgICAgICAgICAgICAgICAg ICAgICAgICAgICAgICAgICAgICAgICAgICAgICAgIC AgICAgICAgICAgICAgICAgICANCiAgICAgICAgICAgICAgICAgICAgICAgICAgICAgICAgICAgICAgIC AgICAgICAgICAgICAgICAgICAgICAgICAgICAgICAgICAgICAgICAgICAgICAgICAgICAgICAgICAgIC ANCiAgICAgICAgICAgICAgICAgICAgICAgICAgICAg ICAgICAgICAgICAgICAgICAgICAgICAgICAgICAgICAgICAgICAgICAgICAgICAgICAgICAgICAgICAg ICAgICAgICAgICANCiAgICAgICAgICAgICAgICAgICAgICAgICAgICAgICAgICAgICAgICAgICAgICAg ICAgICAgICAgICAgICAgICAgICAgICAgICAgICAgIC AgICAgICAgICAgICAgICAgICAgICANCiAgICAgICAgICAgICAgICAgICAgICAgICAgICAgICAgICAgIC AgICAgICAgICAgICAgICAgICAgICAgICAgICAgICAgICAgICAgICAgICAgICAgICAgICAgICAgICAgIC AgICANCiAgICAgICAgICAgICAgICAgICAgICAgICAg ICAgICAgICAgICAgICAgICAgICAgICAgICAgICAgICAgICAgICAgICAgICAgICAgICAgICAgICAgICAg ICAgICAgICAgICAgICANCiAgICAgICAgICAgICAgICAgICAgICAgICAgICAgICAgICAgICAgICAgICAg ICAgICAgICAgICAgICAgICAgICAgICAgICAgICAgIC AgICAgICAgICAgICAgICAgICAgICAgICANCiAgICAgICAgICAgICAgICAgICAgICAgICAgICAgICAgIC AgICAgICAgICAgICAgICAgICAgICAgICAgICAgICAgICAgICAgICAgICAgICAgICAgICAgICAgICAgIC AgICAgICANCiAgICAgICAgICAgICAgICAgICAgICAg ICAgICAgICAgICAgICAgICAgICAgICAgICAgICAgICAgICAgICAgICAgICAgICAgICAgICAgICAgICAg ICAgICAgICAgICAgICAgICANCjw/pZDuO5znpFVphrI6C3scYa6BDw2BHJ2de4BzSVAaRNrzuoLmGfdC OaViPKIfOgdEIsp7GXxzEZ6QdTRkS7LnQ2MpLBsxZA 0HCILbOJQdoBCrWIAdKYVgQnU7AUAgFHedOK4DdWXzGLmuSMWpVWTwQrYlCTKvKRWtYZOzBYPrGBOYGI TmJKBwPaIdSTAsABIyYWbrTGJJCN9GUrKvO2YlvM31PPfBVe5+QZchgjXlRlxOUhB9DXStx5BlMGw1KR 5ACNOxPsxnk9UlKkwpXNHJFOkwSK4QUCW5LNF9LPPe Ul8HNHAlW093crFrEI5GCt6XSaVxKT0jlx2XYcaxBOWlUoxVBkc5IDsyCY2RvMOnBKlUGdEiUummZ0Gu b2izugJmH5EwkAziLA3uQTYxxfmlXPPnRJFaVu3mVL3tDAQrUCY1BfK6GYFCDB7ZGCTsPVKcwDYkDCBx EIGGUT2WOBjyPMD2IOHhquSzmOTvXCfqGJ4SFHJymq QgMzcgMCBSDQo+Xe7ZXK1ps6OyAZoxKNJsFQ0qsf9PSReUIzUcL6G5eYJdM3B6CQfmNz5LHJTiBEXtMe SwNLSJKHnjOW2SXP3lqvZ2UI1RcIVrQXMxEVEeeFJdUKm7Z02ppLGpJRdaRF3BBGS+Munira+Dl6EHOVtLH QlNIPgPzJlEGXPXdXrU9OlN4VMa2OvF8SkLC10wRhm orSsQXavTN9VYW3vZHFoCEAQBZ3FoYBxzG9cssCbPlUiMFVBNxCfC79qoARkVOSxPNC1LFPnYk3FUAFs Q9ZiwkRfoDclsuCwOQWdTNOHWV1OJDenwoZknHGjuWhaYL94tRreHX8FEs2EJxRuQB1jef1BoPQwAe6S JEF6PC4VZNLnGKWwPXGwAOR0ACVlBcTjHMbxCBJmXV DoPSO2UPDiMYHgPS9QUaXbNPViCsh4FpKvKIGrVZUxos2LXHXjNDF1ETrrCjOtXYPjEVTmBUpvJOJxXY SbSCH0KWDoQEPnUE3MBsVhLDNiNYN0BFNsOGVqUJXthw3VLDWdDGJzMrgyOAKfOHJvNAGuLBkgPDRkMK V2ZBW1PHWfMRPaLK6NPfDjIBIiFDE8KjJlECFlSQYe hg2JKPEvPSNhGTM8EiHcKACgOJIhSKmjGVNmXBHsWKO2ERZsFNQbAF0XJjZbPBNyAWH6HTSrVJDlESRb wd7BDFBoCLPtASw6OEAtTOQhDUYcBEabOBJdWIS7AGBqQKFeMWAcIV9NCwSwOETdFBlaMhdlHVEuKMZu hx4TKITjSTHxMKZvRWYeOUBfDVWmTWvsJQZuYIWhAA EsHCVzEPYjIC7VTrDuBUErUxRnLnmcJIDfYAUbda9DPQHkXKVnDPW3TOJkHWLwQLIzLUjwIDFkFMZvQg C3NBVyXIFbAF1NIuNbMBKgPvC1LnSqTGXuUILxca2AXPAeUPJpNePeEXNkZCNiBQJuBUouPEDyQAAdTL z7FLYyKFFhPN0CDrKxCQYfPxS8ZvBuJBTxQALsru6I ROEiIDHiQkz3LMVbDVVlSSJuOLcwFNQnWNC1NKFrPSTtFTQiYN6HXmAxIFNbHzLlEjOsPXDtKFAjff3H QRFnBKYfDJYpOsZuRQKfYIBzVNjtCNWkLAF5ZnmxKRQwHFWgKH0LHzEtGQAmUiD8LnTmGMYpOJMrhd2Q ZFPmQCMpBtA0VpIyIXKpQLUdGTcvRAOkNYB4XJR4ZQ HpZJTmUA2CMnEfQCMsPngcSIWkAGBrAVFpsf8TLJZaZARrYZM0WHXpSIAoNWPfATzzKWLtRQT4YWZ4NF PtCZHcKO6AXfFdMRLqWsi4IEEvMQObBVApvn1ZRUIdUYWzTGP7IaQoLWHdQAKlOCcoFTRkUVBdLAJxBY NoMVXoNZ4OYoVdSCAkPUT1GsHvEYLiHMDjio8EWDYw JPX5EUG7MHKjDNSaGDVyXMq4iqEmrUXnNJq2CB4IX8WiztMyEHWFLu3Tw854LHV0CAWgFt0ET5heCb0z ZETlJANLPj8IPLr5GXx3JhPxZXN6GmXbX0KyWxB5TClbTaF9WAHtHLL4SwP+QUm7HLdeWpL6MImsSpH5 QOHiNGq2UCX3NKhqIFR8KwIfKu1oTTYILn0+SPomlYCjrDcrTJQHDrZxLdShLZamQRRTIg1U ID Date Data Source [id number] 11/14/2019 04:53:04 PM EDT [facility] Name Value Range Interpretation Code Description Data Marva rce(s) Supporting Document(s) [facility] BGOKFf9lBgREDnXo48/BPHimYKCgf3BtNAyhBEx2RWkiHMMnF9ZxMJP6gF0hSPU7QUjVToKhTlKhNtA3 lbm [file] qHF9J/bRK/8PxHjUlIr1xp55bE43c33GC+cE4yZqe5PbUaE/Z0rdcgNpcGitsYeHFyrfvCDZZLn Kex8FHrV5tNpAJEYvKB/vr8k24y1WHEXuB2Pdwp9bt DbttDXtdpgNanPvIaktG3iAS2s0q6q9dfGtdhHCJrxT4CWfB5DwZc5SQ4nEfewU8obfHOd50yKvDmth6 qTMDYipCrp4ebH9Dn+IdrHqYugByY+ka/ixuuorgFomzgq3VnsLl25AOhbYC4NE621gfWD89z2JR7/I2 CApAIRwQ7aPjDtmybvwKmpK+zrCXfFHJxpGVbWzm/X IeuU7unU1vkvWCR45olWT8qDUe+P0bSHcS9e6hzrlVcyfpEHiLz8w2rHlaAt4ZSA1dOfKchRmGTY7vDG n/zp3Q4xhZ87vzTb/3cvsyrp3FQ3D1bYr6AiGm31q0eCmwcGguYVssSEnieFxJHn49BdK5o8aYEb5ZKN 3rNC2aX734VPfMJJwLYJPhDIZuxSZoz2qHmaKsi5xJ vYvTzHPu72mAmOh0CwXLgiqx7uC2KzrTDgmYdXL2pVtyMQZL8AToVCixgv69tUUr0dlFLJ+PBW4p17qD Df3v6FFVADTtyfTtT7I76FtKEXx/5ecbb+SOShSMK1jD19Gyt1CyoSV9ulF4YkAFIqL/x52ZENuXSq6k CiX4mbBTJb9tVuwihxubwpKleH9Te5SLxRvruwXevQ 9dWdKPZgQ9G9AM5xNf41zN68PWfQL74XwWqYB76vQj92QvjU0tGoEAFZ4hk3DFo5LctlO/FlSrkv8tyJ QmobIIJKWxQPvCoRH4Xb9ofU0mVX8GX3QlDGy634uQjZg2GVtMbCmRwuJppYBNMmpdwSn/n6tgcCsxvR c002FSK3yGotx4cTf90YRi1ev7VFFxSVeFAu5mh5B1 kFCpQFGGiM4jpnEE3lMTDBjqPGjSsSCyKdQcT/N6PaN5x6ImSI2gm8Qwg2AIGtCGUtnU7fsfOLLwKGwW crgpzx81VM3QpIV/VYvC81gCZBI2hReIs7pCM1+vpPuyjpN1tZ9rvZEJpBnzemlaC9ec6yoBnQhJg/inpatient services rn [file] se4u5LRtttn7/Marco Antonio/RBvsgLq8Wg8M0n25nTx3N8zoT [file] OGcq/1qRpZgWfOnZHBZoqOnhHH47ifoOHENbtusphtBqL2myHxxsdHPB1gnU5RyrO+JaJQ/RuunYw+Decorating Consultant [file] Alisia/DQs7PksXCvXQE+s6lk1c8FIfpQfYKVTeMzUvIEEtYcwFvO12XSaQ0s728LnTlaQCq3GDKY2kZ1rC YDuwBpybmW4UXXzKseoCyA94Cv8FjwDqDJaH0At5y4cexPEl6T7S0Mes7f/8T6Yim8hrG7bJpqjv8Jec 3cFoTWkog7PjIa7XD0oVwOYjlTGdmCOtC1BbWZ5KSJ QBLFgen9ayYiYiHpmzLaypEyilvXuS2ChxQqeSox+Lm2RywAZsfP0agqVQEGlP2EbdcrUQR3o+sQKL8o XiMElh26WG1Hho7RWDXeb/8Y3KpvoGLjE9viMif39ORl6k0857elqimtM6sEhHNW4eHgovYqiRLUdmmr ydo6hMreSs23lJZT/DorK6tX94THjIb/L24HyriDZ7 wAQTED6DucfNz9Il2JOWIsRrjXSS1BhOncEo1TUC6wgJ2GsPq8JiBo1u1UUbSpUTZkjdIy8RXuo4PtRL ymwPGaLhnzNeT2fYyUEDr4oZ19KwZylNw1yFSmih3GVJn8jCKd1cOyz+G1tlOH5uiPqMXuZ177Lxw6/K 6lOFU0cvJLi00dvN7NL9NW7VPb0h4ZN8GN6iKC1xCC KdAR0ooc5+bsOD0nBzQcBtT/16qeJWqXe/Psi9nCts7+WnaUGJGwG+TTpyWCCnfMpAoH8dmUL39q7u7T EMXNhkaJkOtjlwpDNQNz/Zt5/1qmOyDooE3wRjnYG0wPETY7DmFxfMuHiNiXjVWkNJ7TCgcOfy/CtF2x x9Xh3UAJxHgVDbfohL/cuycJOU+7vdKWk6s1o+Hths Q2kjAeXP1HnvAX/YdwU6HhvG3hR/ayRds1M8p4m+job service specialist+G0I2ihGsf4sPDa4xgxTrOswsk7uOZUbiZDE/G [file] JxejAhTU1dWtBM4Q+Dkt3aoBQY0G7Wu6ddKjHQp/Decorating Consultant [file] Orchestra Teacher+//vP5+58///x/r7/z/T38G/g16lJYyrzpabqPorNsothIYYk2CkN2K6bRkN/2O5sKZGAzO0bfBiwn [file] LQVlqQtTRdUc/ZtzFMkQJHZY+qDiGZ7IC0H5O1djiWXCma6ssPkN8dWUC3ie9+hI2bHXmlJkB2+Nuñez/eB [file] HTD/IRONER MACHINE+TgbkLXKwje2XsEX90FKX3FQqabt9zuWxVI8lHmnftoowTl/fx1BzpRfwsi48DvtF5PiSRkUJ2 [file] Kathleen+dCRZUVEX5derRYN24RyVBdztqUFlpEJnjRBAzI Yhy301dS4RKP9dMpHmuTb9JXk0Kv5R+Z9R5TwN1vVe0p28cyBbT85+K42s7oeq/uJ669pq+2w+tthtys T6F+NtFufKzdn9/qPBvVJH9HFscdFtR6cT5zc5Z2zKkkQwnVo+zcW6K4k3CM24jv/rszo/precinct captain+socbKs [file] WhsAUxbezApxWRfwWKESzLPiRK9aD1gdXrSn8DT4+xze5zpCVnh9NkzRBcplksmo+Spears+xSpiXdPtl+Z9 sEi33svMP/lh8E2xdXF9reRfnbJKf88TqPlhtoDk9TkhWNJ7mgGrrCnrhpox8sa/orzDne3oI4iZissS /dVV2D34vNX+d9DqcQKUb8sQL5iswoV7JgWnTld7IC F4BhM1lLVTrCzIxIAFcqMsWMpLBMHh/l18xZOiw5OiFrBy99tRJ/jxB6jiaOCXnOQwjbNUEbQyprqYY4 9tbBojmdiZBOLk9ffe7mvWEi9C+DEw+MlPjasUvJHyB2MNaYaOONy8jF0ImeQedDOj8Ozcdq7vAfDjzK ZkCV2YJ5KMp/iW6xn+7U9OxC+uYBvDvDCoxvAzF/Xo JBAd/zj8EbkH9+OkGygcUidQHxLmjFwzpcMTuWNp41/iHGHV0SoYw3c4GlCBBLlksh0+C12A5FnuqlWX VALENTÍN+x01tnC8oCLP+CpgR6ADeiXSaWfgBT+SuItVVKF+LaV17xZNZkeW+j/AdqWffz7Ih9rLfYJEDgyZV/ [file] yexjP13BnnvFhq6JVPPGXlrRk/job service specialist/+9SGoDWS+5g3aapgwfliOTt4Sjvh7Kch9gczWJerKl2UVeRrwk3 [file] Luis E+PQjPo1XVgcJd1u+LTw0fTxEQvB5uHW5r1g6FxF [file] kpygir8QEXchrRb1Nx4nvY7O9HckiqSRyDJckSWX1UolcH184j6Yz/NxQw75k9+1n0/atwfGQXGXK+IRONER MACHINE FGI7kqENSo4o2NVD0uguugSMUIh5jplFndFkwN+rita 0JMUPPR7fBL4Nu7rhcVsl3aTEDHbqqdaM9kdEIGT7UhvyDsUOYmQbWVU6Sqh/K2kiqZZ8tZzIyPXOOwz DDnT4LAM0LBQUO9TNnHJ9bayYge55+JbHY3G5NlMSLzjys4moyuOqMfiCrnOBibRiTItBiu6lPVYBdyf z5acnNv0MpUf7Yd4GZQ3MvWwuDgaQ0dAJkPrW6keHI hsH8bImJfPbESEbgnA+NTBaaPgDSFfJMS2Wf9okqAz3b1+Helene+ohfvGU8huEKWCrJbdHswx3lr3FnF4T [file] 2eOLEt0uCQdUuzvs015P41XOd/xR8BJxe2HyGQNOmYaH0t9j7zXwN4UOQT4+CAxVgCs/sap trainer/ShMJjQzA [file] Business Analysis Professional+ejb0rnFvy+HFFpDXENeSqvI4Zppar65mufjF2KkoPx4/XAm5wN7Mkap/ZpW9mqK4CAJBlzWSHZU2 [file] yHIIt0ZeO4t5eEc4QD3oP+wK59NaB/valentín/LMdR5tZp7WVJ6T+mA7hFeb03jaTA2sHN5JfMm5gUFaT6zQD [file] 6Gu4bMk4O1QOVlGoXaNTSN1mgfCizV33fAt8IlU5QXAXn8I7DROST+Orchestra Teacher+iYwgQVVElbmkFj5es8k7QwT [file] 0DA695mPSJ0xcP2s6NktEQEyuQS2dL+BRJkDoM8pHLuemngeuz0+wrGb1lFGYiDTSzcmIqOjghWP/Jose F [file] IRONER MACHINE/D5F0ZYkbtPeetJg5VSJASuvd5T1vZg0Esa28V2f [file] m2PskF/eb1c8MR0t0muYy5bfrA46QFUyN+3hXMB+Nuñez [file] 9ffOQFdn/fWaeeJjcQ8mQExIu+RfH3SVizFfGfYouaxygbJ6JZxsuOHP4v98qIrM28zTmZ+Market Development Director/0wQjr [file] E7wrBDrkj1HftIbXdkwpfU0BU8zI4X8J+VQR+job service specialist+oBxeZ78ClD+UYrOvx2WjJxGY0R/OJ3GEFJOwh1sS [file] QFZafPD6jSTzGGr3PEAMUHMaVPXMUAcWMSNGzZdgKz SI8TsSQMAvsh3Q58xLZQShTH9gpfwIia4uOpcHgqJALoggJIzsXzg2XJWaDbIpsLnhj6g0ofQT8rwj1Y JcUvMHcQPAsrfUGM1qokAk8S1mshHrAfmqrDrqv0kHEB/LBYs9SBDBYyf9IqK02ztUzscWZLAQkfPWrk oAZClEv+omGzj/G0gXUy0TNFSD51xb5gZ3/uxN0f/x 9tb+oszWVtOk4HRKcQLMkBPDrYZSsEVWdIwDkghUiRQGaWJ++e9Ty3Zp8ADwpg982ef8XNG+o49ng+IRONER MACHINE [file] iNvfn6e7euH2St5dz4zxroo0QYhXZmA2xdiSEw3691EqGbTwKXACUlmYbsT/pb8ghocPI/qAYOmYc/Decorating Consultant [file] 0PEpYC5YUaRfpXRVpGyOzzXfxd28X/Valentín+idm4vQPvJ [file] vyul/8s2PyPzMz4fklr3X7+IRONER MACHINE+REOpLfACA2z1mm1K/klxb9kpq+5ihGQ+bcowqOjnVtSCmGzNT3onqa [file] Nuñez+uEembJbOwYIKt6ev7/0ol6dTTLaECR4gCUIFTzCwnd7eV4CCU7X2J0Y09omp29klNkRj08hg+X0dI [file] rmiXYVWP3fwuDtn9o+Nuñez+Gw0HKVOSL6Fp4gxekkmab [file] 6THJC45AHN8Qu/3hRvQwAbDp/eG5uCKjni6+2QX5CPoSdR/qS+Aj7QLYYsc0KY/jewel inspector+MakGf8WOjnSmTB [file] 9aRl4gBLP07+jewel inspector/DbaVo65Br6t+2+NVOr/bRfZ/og3/dCfDN0+3U87pHcIqMc37cYg6XU77o7i08H/7X [file] 5tOTOM4Ka5L2sE08SSmawOQXRW77sVsqXe4BqSyCbV32u+Police Commanding Officer+bORmpUvH5n80aapsIiZ2xSOhhtFVkk [file] 5V/xN6zuNVxKXjtqgMrH2D2ALRJrYFEoX2jFJ1SWwpK7TUgCgNGC9wQfjDYQ5zcNuJc7RPBgSq81T+Valentín [file] tOLkgYF/ZrrG8AKZXEBy08tzxe7zBTdxzTzFKK6 [file] c+5EnTo3MnPM8IaNmldLqUzXFBsgVPvp869mNB/iIQsHmqZOS0k8l92XtN0uaKYtpR/EA5QGfSM1T+NUÑEZ [file] hand mixer+4YhgaEKoJjhFC6FFhqUe7zHtrkChMPVWaXw1FZ [file] gluer [file] whvLJ0yDLrib8svn7P2vrRJsqLeEdVxqZu6G7+Becky Bs1Y627i+t4St+BzLkY4EhoKeDFetBK6Ws0WpB3EwC7Rd0RopoXC0I0K5+r+1W44bsO4L3F3IiOKCldG aH6mBaiOFEIisSBACrPt9t82hN3m13srU5UHV+ByLRU0ONY6k8tsYDO/hB8phpc2MQkPWtGA4BlSA9e+ G+DDK4BC3xO572XEeqj0Xnorxel86LAAKCfsxKCgzx FTRw2x5QgxxtLjOoRnM8KQp06XybaWADx1Z6JZf2r+Or5nEvy8S35DKC5AMRAONDuqqkdS/zKjin0Mac pxSj7ybsT9swyFMqgh/KPytx1XcHCzzcOhGDsb16xtHPaRE2OMKnAq4QnqBjdqf7ZELI438h8qHwYOBR QmRJuKYpfX5ARf1DY7LnG9B5T+n83IoIVrTjQ+VWNL VUpQgpek8vtpizhD4MuBZmCOy/Gbu1dC7Jy/qIDl6VVmR3k9X9mnBfBBOpYDAcG3fMjtUdeWyWvuua62 2jsw3Dp0qndiiSIxytNoNHsvOf251hK2ck0dLshfelZgI7rds9tngdEulJKDeQ/nvN1cVdCEkYFksGTa Z2l0KWK6jCqn1VvnYDgQDERLWtfAdBL6wWtF8cWeOP sXDi/6HyO3zgGcb8vDXYe5clL3D5dWEtLtEhtU/USa17D4QyHkvMaGPG4zDnfg+aYoZsIFYtPElbbzsP ok4VhrOiQRP8aSjqdh0X5L9axDbOUHRgpIMV1i0V8NGJAALKksgFQpWNOxvWryFnFSJ4+FdUDWJ+aWz+ WmNh1xjh5kMBvXfaqc36BmyEOLhc2Z3+AvkYB0Keu9 oZAB9aAiAcqj4bqy4BgUrnzA9NtHCllgVlLbnw+eaNicdNgRavkHAiAk6Ffs7RVaD90sWuJElulKUR0X e14XIQjusadiubmomK0YNq5THCL6IjY8SdDOyTKOTNxpn8+BN/6D+jY+uZXvPA3lcQlve7BFDlXl4ls3 machine bobbin winder+MgPESlSrqErSQOE5Sprkaq/j2/zXNMSiZ8QP2K [file] BuydOzgZPQaiUf+NfKb+9p09nqFul9/MHr7tVN/vision rehabilitation therapist [file] /1Q9j0r28uEddommVOJLdsKMuVA3v5VPUoeBwiYq2GT1QcshhKtbdjl04WAdY/PcQtWHXiBqyEpej+INVISIBLE BRACES ORTHODONTIST [file] Valentín+DT/pBXDnuTaeBmUyTWgtmbg1uE+lQE0VHcxSB6bIp9pYBy5K+mq/EMG+GUD/xMXtdYp1dPGOoj5S8 [file] Vqbxh0dS8+[place]++FDuZJ3pP/4yKgu0xrh8wV+rvz6goz5NfjMMibjAmFlZH3skPFt+F1hwLNRLnekCXZ [file] wjb1L2g4E11o/+DZug88XblJyx1ZqlESVYfTJ9p [file] Decorating Consultant+e47GoSDL5vYCoS534juSlGHVuKrln7o+yStg3z1oJrJRQS9/a0rzGjRfuS/90/67+2POmUL8VHTOT Q1/TQeSerR8z/35jeEYSZVPjfKwiBmXhD8P7X+Wilver [file] OXefwGqEvPTDhAYQd8AdrYjNopXo8+rXIp7Skb7tG4N+xlW15kH61QwmlD3IuO3JU/o1M/Suq6hAN+WALTERS cbtiKUZ78HfBFp1fgiXJ55DvRmt43sva/BSlcepxNBUaNr0twJ71kk8bUaPPDu9IzfHq3+sLhlC/vih0 V6lqOwVqI2deTOIuOWKjI7zUEF8daa+Xgk8wOWXxDJ 9EUV8G9LbteikZTNAJJg78tlsRUHbih0FDGXVtXi/tqYgZ2hF0uBF5n5hBp74NzbYnsKWe6ujEtC/cPH gPYyPqb+YGHGKlEt7kZg7JLaQ6fu1sQ7QEaWSfVKhKxEwl6FXvPX+wk66gMDdwOcD2rSX4t4u5dC2EbH fvjcblKbQcwUPxKdOU5nXjKckeHq/GhIkwsZMXp1VO 6hbtVEPX5HTaYGG57dyo3fADFK+ts9WzoxmUcjon5R0BBMY21d+BO6yzaFmQugmK0IyF944L06A6GZ91 emtWp4xjY5Fh33qwYBXkhKiZqWXcBNRes7376aqNnS+Z/SO1nOXBzVDEUgqUJPDJdKPKhGkOLtiO8LWd z7HEjksEZG37RlLE3KdAjxMyxxEPeGrAvs5NdSnfWU +XZZBaIIjLppk8n0Gub0UjMBtpNjYab0YC3RPpB+oXLMwcaKyddxt9KXG0jZjkj/q9Xj+WvYNoDyC8Py E8RLx7LUL/mkfFGhb7INzrLY/DUZEL9jELHBzvGTFpAF2OMRZpny3v7O+vBo6LWtT6aO1WE3mCKKxrx6 fVzmvvvGqJ4ACigGKYxF/QhOJ1OfS6JQ3qGWYUw2w2 VPJ1yWxKfX1CPooxE0/7Yxj1RPeaNBB2VtEchN5eyElZOgjmXh8IsRVY3uAx3Gd+rDG7bymtgYSDoYpO Eub8LTCucLIEw96Kj5QsuDO3p9h3AaQyPdnz5XMe6uI6z3xN2hZlXvbdFtfe2D6sU25rJU44oIAHEMmi F9Q5Fq+Orchestra Teacher+VWuovzKh/EtbvaaeKVy34Lacfy74tsge [file] jewel inspector+6rI4z0flFjzxgeIqbu6pKnopHsOHPqc1xW8Czsl0FKXse3CthdzTywj2EXMCkFcPttbZWJD8sKHnD [file] U0+afTTVFAfMQHrPVmp/8a7yfcThR+Erw+machine bobbin winder+LOiG [file] vwY4teeLbUc8vgOQtEkdxfxUT9tULv/child and family counselor+HmAjUFP [file] /P3lkTKcXoFOZ+jewel inspector/PNK7BZc1c4n4boF0pVeryr5qPPQGFi/+8HGExdCrYWqtgeiVpL0e8hKhLx//Y9v /4lwaDEt9bbD8gJvwfMTJawBk9QDCW751jJyo7SBsc TL13Dx0kWyarIhEM6k36++Pg22+RVdcBN4Ary2LGvQmFZ7l95ttftetb+j/NX3t/POXpbcLAf8Wn9iOa TWmg2z58VgFoPBlr6l24F96ACAOb/L8D59js6axTqBcQHltrqZ2LsiHyMislK89yCuhWw5jGleppMqtr lBJmFazCYRMr+BbXSaEfzMMW+DkyNvY/o2F9G3+Txt A/Bb12foIl+PyjuJyp64TlhF03Ho4ysj5M+Lci7I3LPCdNPHPqFeXJk4Wa4LGMLucRW7l3+gWLr/5o2o o7wBXMV8z9kqtbjEi9lTsl/L73ExTcqK1kRy5/mdxmYj4akL0CdfpEcxKfjmsN1UXVAq5sZx/fL2bE03 hIU15y19MCqGR+Hyhk4zdTfs0ZcvcOgBnxvvSSA7vF qmfdurxFtxJQ8SZyWeqDw18l43kO+38+gISS4zTdu6efTp93Y6mCX4YJY9SjMRu361KEpP74KroqVqKG Ma1jjZRgckRP0s/uqvgpPpzPZFVb/yAOVyIPkHoPf46V2JwFdWvYMMBTEnieeU3bVB3e/jl6lDCsKV1J +5nlLMJMTo5Pc+e2ujbpdkTSRd7R7Z/SqGKmG2Io5i 4kqOLrRFtZuRPAigBQKuFBzZawW3CULqSIeM/1xKOJZILaCvzpgMbM0E5baeI+wHjcC2xrp5dGq9cCzj IfHkW/pn+65+jA3d38omqeYoz7eZTszKBB4LUnMkcYrr353/gnyD2VUpHL5vpca45vkedQ8aZ5dgkUwT ucUyuDzLW19IX9aClrTkDuSB9QOaJV+awHLMYGAqh3 /n2JIQSz0UfzqxV7HDa/RVsK92d6/zJpuAKcApB5cGkVPk+fpDbKSUszE9jlmjhH7gRiZ/vVe [file] valentín+De7o0nIAwiE/Tt6dxUQvyBsMMg692gfoRyb6VYRaXZGXK6lWfO3NEzUaGXfTwn7PDuryKNLk7G0oy [file] Connie Scratcher/hKP+fvYrpuxHnGsryi5vw/XEowXlEiQBB0c3W+VJNxC2DJFWr8Qdlg9v8OmMzx3OtLdaId/sQW2d MitjNPxGL8w7wzT9FboK4MS4H/hsHY3JgffEAD1y/f j+7fFu/gH9rG5p6ceK+2v9K5Qo+wHxyi2BIC/QvyZ/GOrr/ub78sKdwLD/P3Dq11iReNi2d3XpLNiynQ 5wXnDIaNBTFwPxsyTuL1s3EwKIbJJKpr3I01faMUO2zMMqvYlWCy7FaPRMJVuVAXkcn+AcwQYuwQLX9r GA5qhyTWLdeClREmxJ88IKiM8JY7BNMVw+y23XcrJj 6Ii9zkNMCKUQRbWEGYvqPaozYwfpdOcq9MuUcCmeRCz3cAAIgtM1UciO0Zlmzmmf/fF2cMNr5eVYcEM3 9PE2H/0Wk6ibk+TB2x7H1yH4OSgIVFl4aL8ujCetZlnKwwtJC4At9qpCEHAsRi6i2+zob8UMR8xdiTbB pjVMnEGSZWlWakYCJXaxd+dNiDazXeEomFmOg+YpOR [file] Orchestra Teacher/5dm9Z76+3qyTf5Y5Trjp9mpLdcpcCW6E3C4Y/cL lDwmz0plc6hkmjuDq/uZwi1U39aIHoezW1+p1ydqf49oaQf5yJnESWYRSaQ7PYi0wE4TkhY7Vcyy1PWO 92aWPEVadmiB254NCVpsj/ZEaF6l/flzI7MwK1P3ZH1ZuaD24WMSBbKsHBh5Qyp0whcvOlct25zITbTB p06FOGWj7cTf0yeCv9g7qOqEp9roLvPR5iJi0FXVbP 6mCPQelPrkJNB3iDk17XjrXuPe0vII3XriE9tXarH/bCZOtWs/u9veCR8UVEg0dvKeFGp5vQIvpyqfpT Vdbmj9x2ofhpxzmauO0wJ4yHv1ChqZmIFslWjFuVHPgN/5sCLFM5MGuQ5R7U9f49IQmp/xaydf7CO7TS w5KdJlsDvlias4k4ZF2hk7v8wOF8kIz7VAQH/z25Rw TYdfchs54ydsm3ANrwYXEZla0JK0ABdXjkjZMRBOVPueQPb77iTPdhJ5WgI0R8bypwCQO+gdFJSXhptH 2b9Vu+UGW2MSI7KrowVvCZOAuJtxg8IaaqDFc07qw5p84+3GhzVm4fxqZ9rln+nLts41DvpGSBAFTcdf jKkE8e0y3sZfM1Nca/WRPt6TWdeq8j247H+2fk+h3l 6QUoUmhHLfZ7oIC+NYhRPleHrCs5aSJBH4rBEF7TeNXheIjXjI8YHdqDa7YshO8M8FQhWY7sC71XnqRO QuwA9Xsex+OmCjLsrOgmLxDdsmq6iaV6+/8IJueteHqo2GsQUCJdii1DZo/90dLq0ey2U3x+2d8O6X87 opq/qlHu1OWMRHrf0s8vNBttsiP76av/W/KtJ8d7DC ocnGnNnXn2Mu6CmclJR1tWqpQMGgnF7ndU+UU3DkPl+mny11FcEh/qAkjsU+yj/kjymjNX+mi0GEeR7s 7wBKfM3Fpj0gQnoKhniOrw3OpEoe8i1V+TuRNnHUoJpfD+LH7SHouoMHlNMh0CR/3SyoFdrX69Zc/Sonny [file] 2J+KVM59pWRfQhbVTccZXb7RcRhKRigSFq75LnZxLqiFgnreV7rIFMOxDck4IYOfjqN7KJecw/Orchestra Teacher/vn2 [file] LxNrGEWfjM/jmXCY+chacF3xj6v39brZxaOg1iH/QN0brZi60fqPw0pF3+job service specialist/dXa/b8rIollAB74veyh [file] fEcsbAElZWtqHoTxqHOZ1im0slZ+RJyn57pyqSIg7n2oMIf1r83xfI8/A4Xz4/Tu+vp digital marketing/c3CSy1/3k9n8 [file] assembly supervisor+zq9v+rTAum9Y3zDPXdRLMQT85a9ftAS5DLCf82Ky9lEGqoB+HPumnsRDam9pfnupcEtLZ7y/o8H6 [file] 1WDFsUu1a/zs+valentín+GS/rl4g4XOb+ch+tqCi8XDsDkJ [file] 7VOLGdTxydi355Ev7zPumN/C9nY+rfe1cf7HAYhvJmRoCOA0Y3RXhSHBv/Nuñez+OV0Afq0buxlntIGoiAM [file] 6c3NEOcxvQzNThhtrT/d1oHG6Yj40S8Y87jGsELjvRDx+Valentín+vIbZvdDlxVYCEHzW4q5oF/ipmm087kfe [file] y2AZDZBlVyTaeNDRS8VkNVLMQnJwVz8Kkl2cDkcGg1keEDWwVZ7AkZ8b1otoKw8Gnn5dZJJ+RQyP/shot packer knsSvbGjJs5sFKYoe3nL0QBUMqTcXghHRROusMevBm ffXx+ntQ9/21wsE2FS6gPtRfAy3iFXN5KPRw15Gq5ieJoSK9HBOqsARiSQXoTEGjsHoccxM1kWUW49i9 4NVrJjYNRLuhfjTVQmnlVr4Jsi3IkhZ3PallUzZiaBu2eQodb5GxkMg99+tg8ueidakZacvfe3dWXS3+ kBoQg1pj+4Hcn0o3nOtKVRyiu14wiiQ80AnYgkOn0r Ly+br0iSr9M+27iY07zy9/cPmjsOfOmkdMhVWbuX6pzzA3uhK61XtbzrYTH9sYqECk/QFlP2QHVweRMk rArHvF2kB36nBWAQCU1qbXPiL2b+cqv3u+cJkb3Yjb4mo4CHh+5pkk/JwZLgrSDF3C+Pedro+Jfuy7+gzX HXgik/Sc9ZZpieeV1kvw240pc73Buo6VQLJ7gxDbFS W9jS772dBOzpmvSjiFhiB06Ur5w6YBa4NWuxllykvWyiFph+DerUY4r89EeaqCfBt35fxvvOwM61q+bP VtdXCnOdEQ0mwqOPa9FN90g8bRsZjVAXTp7oLfBbHLeLBL04/p3r3k+WYnY6zFZRwI9E3zUFHpIpwtmm connor/O2huc7PjntiGATLzelxr6E4UnBl5mYKAoj2fdm/ [file] clinical practitioner/pB1ZOVQReT93dp6y7TrLJDbis5J9iVh8ly3XxW [file] 8kcNjMEnAzDPnYlxXl7YNRlbtKs6bumup8+wsBc8WxlebQzJnukBp1XDOJRkPqjWKfrA15oKV0g2+Иван [file] [facility]/dT9JhWCmw2m6NqdhL++/vfpyGqDPrE24fs1ptFlRAb3qupM8ptcXfwPm4fehgsH5yVp0LyfrqaQ [file] 0f5iWL7xM1+argABFRNyufJOmvbvj0exmWfeFaVXcfhioPE8hpRAhJzfPGhty76/Luis E/AA6PgSqxbL8Q [file] I+fDx9F+IRONER MACHINE+fkJxC1VG9sLgWxYDVFEtLF2NZm/U63J [file] Byu4QgoYsx9rjC1ebe/jewel inspector/2ddE6Lx+5HiuM2TuI+Rt [file] BTln0W17pktFdIpgNIYbVLTtYU7QC8+Valentín/2EOmd71wDfAiu2Gr0helX5TmjH4k0xONl1LCrk6463FIUX [file] [place]+KdvHLPBsCwVKVoARNfWi5VnmCJ5JRyDZw249C9Pmh9Z/ZVZ5AbK2JcAPlWFBIPuUf7BUSLLkYhFG [file] iiMEMiLXdaQyriD3/TkC7WmTU04Xrp3Qd/vp digital marketing/2UJMwWwIW4gOvUSwKBsN7lUUaxiO62D+sWsOPSywNP/ [file] Pk6wYWhM0XtvaOtbNYrmWtk03IKcbFk4fc4yvbiR6KDv8HvhDEy5KDEARt8nqud+MARIA LUISA+lPf1+7A3D0/ Bp0S/DHNLy53syRjHmvkk37DpEdRzKOe5k5dnAriDI8MK2oEOdA6SNWJR9mdmQY6mpfyhQV9nyUxscpP KdCjDLanocDY2AVy1A6bDmHDAsHSz3RSwUyErJsNkA 7eVyYB3KMwONoXrY6RKNhAq3IfXBGOS1aSDGaognTbX+9oSDJ15EBRjD5yJQ52Olouu9PK93hQ6CuOzO sj5MM90bLYBhK1QVs4rM/epzvH+/hZppd6RlWmPAenuQ8dCGnpc3TJuWVLAsEfpwMtzrnaQxSvans9Ap beDcw4+Bww2zQfF/XuqfTsHf+Qb2pBuzNPMYRtKxss GZyh+0XNkDx29hT9JY6iNIh1zW9qtX9g96JDvRftK3K09xEZiYC5y3Xltv10HXc5T2ig0AMJH+7lsO5i sqYR5lefRiC0Ijew0jIjm8yyC0LxnkPiyzLrJVJwiSzjTbIieeRhgHe9BzSMaqUnr5Lpi7NiOmBr6+pb NTusfzltZ/analia/oC24ZqFGpDhP5FC8dc1a+mGWkNTE [file] hcKuEJYx/yHWA75jKVuBZ0AlQEuFpHPhg2j5SPfUgEupUw9ODjuFALU9vSN6QnMB1Nh++5VlD4RkG+Nuñez [file] lplT32ypFquSTX9rGDpxOQzPMAKAD4oXMuz+kailash/1iyhZ5+oHLm9zG73dKbrBg7jkzJN+jF1uKoaynPDX f+dtnrVYGpEcLsxlqLCNRuaH/zvvvORybILvSM5A05BW03Ba+6ZVfKFw4+0cKUax3e7g1MERCpN+0LdZ 641rTIjPmhRuUI2SmeR7QQBpWLOUOvRGHg3VYZ/WsD BJ2nw2bjqqHpIBtE/Z52Ls9kxCyuIHIhx6RPUtcEQv7ydWB4GZ7l31kOugrcthBrpZAWxGw3kedUzg4x 5Jgp6kLuqTrsB3XnPqRKiKQxo7DyiOnuxvciRzcbkpDw+do4er3CgF1fQH6ni1MPnbbWGlyd5N4kmKrr 8FGBcNr35zO79Kh0KXjT/GgRAhjoghkUBGynmbiK5C I55XvMOwHsaXqj1EOTRjdvdjmGisQJ2GqGI/tdBXrxctlWL1cGy1aQzX71P4hFvjJXDXA+HbfjSHlycq RXy5fYlcsss5byGOi85XB0Sm8N7eFjRmerQrJ5H4SCBe3iu1QVLdr/AjGPlRKg+p/Gq5JUczxIwBbkqW /tOHbo7mJ9RymzSofDxhndZQJDNOR0V5ZqQE7aVrdi ERf6p1B6S0tnNFu8Uw9AxzWXYXpskymiSyu4B2FQjjNMO4PQagqfkhzidjAz/TfoLyj9lfanduGjRXJg tHIjJs0AbBZBh0sbUofN4gFKaKHkorH5+hrvDHrerj8//++yZRMz2mByn7bC01Y+/8XIS3+TFBm//+job service specialist [file] BRACES ORTHODONTIST+Xv+vwK yHFEfbluqw3K9IyqGxLajX5T3rXzZCrAX03LQWVSxR 9R/623BMkjaPV7/Zcs2dN4v40NRo1mb2iKZpxlxyQs9mp9mXbay9x38pSUvbrrPRQUqyJOUaLtvMsJ3p cza3WaqWkrbtXuUjP/frzpV/hC8P2aEbgG+ecHbPY31967q8Y9xMDfL9czYDOeyEo9+VOz0C6EPqCH2i Jkj6VNv64nAF4Gqg16516w6T1EiHjDkuCcCgfwEMKi H2EEGHYfgYQV/V5pVcKfRenVJFXkdFpR/4lX/u53AzO94jsFREiE8Y3PMCq/OEknnS+1bqd4ckoZE30A zsjmN70c7bZ/hbo9l2f2RA7A6uF2xD2dRf+oP0WbArVdml3/ocC/Kh5eAWT19wu+cF3BvA4NepliEP20 q/T3wyxiDbF3vzB+Mde3pfiVcnLw3gM8LyKw6Kykzs AZcJEKY7/6tZxpubMr/CECELIA/FLoIN3TVtxLwvbf3s8qFrrHA4Idc1sbTb8oHyF8lweK7qk2kcSAeHr98ZA mw/E4GSiRxBhXasEtkzwcocLqZ4xcisUNRxXbOgSelo0oyh7cAqLKcJaPc7MaYQRl/9CY6b82kLlBb2y jxtSjh9ifssz2XWcNcUARWTyvQTdQtpBnompZva60h 9YuxVAXYNPjNJm+jLGwyKaLbqYUT9tJoPRtVXUhdIyC5/iOK0fYJgjtLUE7pWGN55op8lVCyTn1NQMrD gzepKMNQbx174SRQm/7cXA+H/KRu/ReWf6jMmXu5+aysoxJ+U8M2h+Fc0amAlfv8b1J+DVtKfZDojVE3 GW7NqaL41NvDaYjJ/RQdphKdZ3vIuTIlVZvB9iTGQL 60oq7IeqvpEM7aGy9d5UCfSTbYZI4UUk1bhzrskS3Wn4tJIaYKiNAZGAu/SmHtK6zu4zZY8yOyA6o2xl K5dO4T1aSLhNcf1K1fcpswVJVIQAefp+kviC0c5w+P63n9+Fp//mlJIt1yjvEQBixfwoDYz3WQ6Mo49k cA21JXD92MKQbLVvts7jNIkYAjMqsYjiBQaTshTaqW HyhuGJK6LVuQbtdEz3CWx1Bcqstei88EyCCasWn8OwFrIzNoQfaxAgYRT+quBg57k3Cf76CS3sGuHHh9 HObHYoE5euFgxXeRZWrI06RJOBfg1tSlskT3IqaIKuhQFT+ATvKtMKTHSSfHAN0cqPCq7jVis4BOvZsV Elias+TjiqdQfHY+HkUo92PjBgxwKCh+jFkv9Wv9KyBl [file] N8Lx7vb48IcTUf04FiB7j67pQvIf5iK715mxp8LH6Q SL+YhV9XRmn27UhuOA1E9Foe4dBdHAkpch1UqALxux+q90heVYJ8z10K4E20jhie5Ai9hp5HRUEqvDfO kC7ulklRBfyQ1WpMeWZLsQbc4mX/K4GfBDgK4vX1M8yss0lD2oolUlWw0xNj36solY1n/MXfeJskUMkN uGNvOUjj6fb63LQghDyJmaV7e55I6joMbnEiP3M01f j24WSMm1I19VbeR+quO6HZbep/hORoMJR288ZHBWWM8EkiLG1I0hRcrwf6a8cx4eQDvEoogiJnQbunZ7 dnntIPqTD+bQKHNi+6X6/fXxfuHRo+ph1QGA04IUdoPHlOXIt0Ja5Zk7+lnWcv7I9C9QrKQtmMYN+cuN TPYMMVxum77Ia68f6wcfT6s3rfJskMKE8twpygeebd T3hdRSuqIufcKDgdLI6xLr4UYqgXloQDI5dMxpHTbK2wLTFaU8PHLKOcYlxeW7pEn2MDqhv5gNlup3/b dl6rf17w8pdWiaN2NB4pN7hrbYr9ahaJZ9NIZKlM6XCg25Y7m7W6/zUwD3/EOv/39/pnDiJ2zJdAHuaM c0DYqeF0XG7vlcle7Rd/Ka23//5+/ddUWgPPKDZDiE tM+2L3Ld3cw64ifWqCy/ZCD8A5gQPGf/prVaNU8NeU7JsiG6OH4gcWE0vneRsnk5K5iKeroXEDWUdUSd pY/YUDfTvuToanaS3oc4IxFMzxv1jVt9MafEeJyjqMD2YAnx8vL/Nuñez+j8Wy7mSCjsxLUIDyJfdwVWY3b [file] 9lhRykdBnVar+kuUhrd8aKEdKkh/Valentín/ul69v4aH0kWvMSnFoT65lrx018bmvtzZ99r+MEsN7zQKpG+sc [file] commission broker+EL5HeWUCdFyKPpQKHpSI2CqQRBaNpx+LjOJPPD5wqZ81oIzemoW46FD9JdTVaLj1E5niE1WYNmG8 [file] /5CPqCt/aJ9yrv/+job service specialist/vv98/v+4fYzThdUaZ3ytaXV [file] qZrYbQCPXIVSgJyBhPKKuTkXTgkSHKuzfAGzgXiFYj IYbyVqyZhkDsImC4tfSTpGcxRBGynYm9dCzeiZdBLAtshzi+vqGwRfxt0OsVi3GYwSUorRpTeFgpsKuV nMWJ+D8j+IglzrBF4eNuPZPJfjLkSnZ9aXFzptv3G06AGXyQx6x+Lzyc0pm41Z81g6yOFqoiPoBe7OKT eSsbA3T7RQC8uREbDa4srcmyu8P22OMtdU3H9Zy+7+ /4Qh5Ito5zsWmqWB664L8QWkrUoswyUBYa3p4u/3EUVKymtS9slN7dRp/cFJTmFywZr4JAOtqIti6Y2d ULe4NzTE4TiAYD3XXkYItcxLMKKpREoxgNLaQ0fcg6IuyOrMOmo/vxt5AbOpX0nHIJSQ35NGhkyzIrhw nWgGzL4YQaegUlLcG/gHNJnjHG+zUwzISljHeovbW5 wLYyoXo8t144jjHkxBRsidy+FFJpp0Q226WjoTOkg5lJpgIP1BgnOGBkxAuI/y0Jl4Kyt+swB8J9EnBK wdU8b219ottagjg5rb9c/jZegLTXuLv9B2u/kR8GtA2vJhUKCg2Q+g+/FHLkjF+WjjQSh7UhwdoTfTAp 2SaK4IkUC1NERu8ESUJoWcXpi+yN/HDgWxdDQYyYCK t3Ap9P+yaTKRBYMp08YchkcAha2nHQuygCmLfTR7Nw5EG3GoM+pHenYo/5doTpX8DEL/3jvVr7ACcJZL XTfr2oYXqdq5R7QAANo3y5tZxCyvU3ai3Njq6S7/9Bho7WCaalmARYwSHy2U5aMexhzXD/qg4fLeDdbu bfhT9CH1uYdIEPZgkq/n/dsfB5s9//cjf/5SmX+o/v +rTMVS/certified tumor registrar+eKhItnk7kgbsPy/CfjdFkuGB0EULN26yM5FknLr0w2uvKdd40RdNHeV9K54JkYDN62BsV [file] t62uKSBl9eYxn5haeLqXU5650g2YEa3GT9S2aEcjHknSomqea0z4+inpatient services rn/0ZDiAasKJqRlVIzwC88Sg+vA [file] FITNESS MANAGER/n4kRgprus8R7Scbv6JCaN426aKtJi5jgUE/GYP [file] 1I4MkRcxd/Orchestra Teacher+W8kXxQSNmI152r0rNu+6VtgX4TqMqdWBZ6Ra5NTVF1AR/KBIpAmRG+P4grbzgZDzrjY [file] digital marketing [file] [facility] [place]++sTxznjvOOI/YHp1L5R4Sf3nw35pgvhmEzoI [file] yt71dL9sSdxasvQBh4/fnqbzX9EElyTFoyqVmsus6xkjU7EiPpnv4pCkUdOc2jvgGu34im/Hd1mr/иван [file] RFYRLHsgcT6DTw0icNlsIsniNK+[place]ent[place]+izGK9IXF4TMKc+LNTtmDGnIleflf8nG1ITx+Ed9jkl0Cjycqhg [file] Jean-Claude/HRdRAUvGY7jFpHD8PBFAIKivD3NHQgw60ERZg1 [file] MVO3cwBtnydve2SKigoiCyyyQ4qDjoMJwFPL3Qrv5Rv92REV+Orchestra Teacher+Jd8x2waFbAEPcloFZnJT1NBUXEsC [file] CzasVJ54WsD+/fifDEyL6SlRk1985R9ZeLwIasfA8ar/bnT5O+pOQ0374/Pt9fD1/vp digital marketing+GzimN9n0wX2O [file] idYA6Ndtx9MfLS/GbQt6SSWYH8AjogZBmNtRNfn779FKv+a720yXy/95eWSS+job service specialist+9vL1+X7/J3i6BT2d [file] Nuñez+ErkS3oKm6ucHynzQ2dI47qUo1kQFnZ1V+2VVBK21yAMvVh8BdkNL96Ct6QCM9JG+SB9kAJOoWVsn+ [file] CVmBYDcWmnWkumYwnPE5yUXY2Kiq5vdpONXWdotXwOW2uD3QZSyrP+B5qDGmdt7I6X+Valentín/vEYPkXZjZ8 [file] 0ghMqFHqiAOHdQX2+vp digital marketing+FPeaLz0MAPyxZh0fZmFWxDzK5clVB2KFKa1gdJaBWc6uSDteLkwSe6Vo2FVa [file] ZIMA2hHBENiaLcIZM4zBPtW+Decorating Consultant+0bz/g8aKQtMT2u4rIwCe9dtXdtCjOnEPEhwvu4IgzJyMvIGLgT4QC KcibXR8az17XuhiWyhYmrcfF5e34FENqL+b3k+WfKCXGugdKsQGMn2Z84tTRWiFqBmKDmQhqvApXwUIg AhW+Bb7lZ1RgyJX29bFp507en5yVY0xuiK8w0R6zW0 XwRl8AWzOlYZuFX4r+z1/W1SS70OGAHOXejrZUIyX+7toOsCpu0kIhZAZ8Y5rTqmb+w1XwNdihMDx+I7 vEroNwAqzkvgIYcbvql+ZNzm3H6yS6aK1q9HVK/VRLT5L3kJvCcOtJ+N049/3E2l9YfqqJmsvz+QlT+e +yTWIn781b2KzlpYWxUN7frSZrDcoFoF5KXfnBsU [file] fD26Bk+5kNph7JZzpgR35Gm1bfjW+Spears/Lcf0MzFdQ6mx6FfHujFc9dgA4NVainWJ++14qXMYTB3EFwmS TrGKbXtPt7eQiAweqlyZ0/vp digital marketing/uhawmqoXWa4QHQzpVN9PXfNb5s7azz5VE0v/Th5FjOWHXKILhHVb58L naP5umXNAqjm/3ErsrrM500U+MNdbdwgP6wceprsrz y+0o/O6zengvsxbR/F37Vrhtrc3YWB7Lc+TLcFqXXW7d9QKqauXYfygO7pltwq4x4iyYfXwps3Bdb4TM N0vihBUG+jdkZ8AdH2s2UliCP/lfJ2ubLkk/BkU2r8p/8AKHa/twPfxpr8zy82O0a8RfQqFQsxgNo3aw UamHuRlU1EI7eAhjbF+4NbWoXzLkNd6W7xWl8/I3RX 0kalwSp+VqXkJ0MLmJrYfBGqdA3mbWGqGlEIJdlaFI1tgxrfDT6F0Sq+06sebUQSM3wKADBMA2FDUiNz YZ8QwjOyTucDQS4cYxagUgwivnn2aIQa+1gbbH0JG+Tc2szI6sBKG7AgrlJPnaCg/lrtvp+3mB3Rli2/ hJaMuhnIKDUtokuG6F7W0LhGoGZd5me/64JV4y8WE2 NAfjFm4gywZDidGuVM9wo7pUF7+ecvkEitHMpAD3oHqCIadG61EJAoYZLnu/VJx6HK+GPGM51qOtU9AB IYZT8nHxTlr2p3PIZ5edtToyuol2Cb9hXsJnlFSBF7+nKm5z/geVsz9Xk4Ck2wYQI8W8BSm4jiPNYVZL 9fkzMaYtXAy2bi8+5cmL6NRiPtCvtoXl+EuvAwMi9b NtmU0XQ8UObzmo5nNToVx5XovWSHaiRF6zlBjkLaDzmBSzkpPWu6QCg3hkEhFnbcabpnMB1uxPDKCa3X Lcfqvw7mpL+/OA1MJ2BdsPtpT37X00aiDs0lK28vDPaJQdw9PeREE8tmWNEC+p+Yesz1dLd9IvGdZ/z4 BvpTCc6qdOBpPpBY2FsGzK8ZiTs6M3g5aDtBmA5E6L KMWKFHe3CJXU9CpRTntXDp0TJZkRoMIwTBpeqWbGEyUemboNPECCEKYFofOSEKPNCoPNog0FgRp1UDau Su8CRD2LbizGULqcBtV8npinBQzkcvPOhFdisPe/tCUOiynHQFPHIh+iupSi6Ykb6kwdSdd1UU9ekvFn cpOoWA+BmkpEJAmSVYR+LhosqVhaOSEmJBkehTnZ/t [file] o21bpXQn0GwqG3DQ/PIsYDXzhNK+ANVYfQg8erdIP+f1nxxMK3UzuSidAHTFdX9Jf91PknE4nYrUO/Nuñez [file] Dj3ut6vHfovvH1xuatpy5m7h3w+6SEmYj3n6GgpqxiqlQNAim8OYLGGtsRyBgd3njmDZhtgO0CVBx+Nuñez [file] refrigeration manager+GH+No4kXrxZJu7JRvZ9P3/+115cmO0spuZ1s+6x+7eyMrnWRwpKmsLYA+b6heZp/dUYDF8NRJU9Y [file] hdmKlZ0sDroj+floral specialist/9O4rcHMoDMufP9Dgzr+wg4Y43Wfs+PeSLODMRdVze12/bHneDp+H77/5yP6qPN2 /GN6XYpUZUcin3WwcaddxPcm5NvU51hNa7g5L0WtS/uoPaATxFOJXgZYgvc/fSVkyfGAqPI8OautIJOr acLzXLNmy6U6ERcNXUHk0xmAthkPAy4aSBWSlvV1Vu 5a7HNk/otM5v8QjUnjWPvE80frEQquvJ2nyHFaO7LQx64LXkspDbMt2AGau17Y6F7mL4hmKOTNSD/Kristi Hopper/S698gSjeOtr48His8UkoKDpJ3WYfrwyksjPbyiurC2RZ4eIfwTkRStEWAkUJYiRrGrju7eSN6W5KX [file] 0VdpkSmtDs8vaH9QdPJOyKWZqL7FSHzYsO8TKed7QiZZffGQbxA/E2z+vlWDg+vp digital marketing+bW7vpZbCvnoz6iw [file] Ph4gAEmsD3evBUIShUufH26EWG7zeMPqP4uDWN+Sammy P2ZtUoJVZxDG5kMzL3Ar0SZruoLRJLnd2yJMY9CojJUp9LT/5mJ5SSVNZvDt4pg4A+ekofM12pOGMkSl tyJGy1df7+sot8Tm1Ck4jRzEQx5irINQ4pQsYcqkl0qpmI0q06cHqBXeTq22AS2lqSiKL9fQ+VnqPWpQ aydF7TMs9nVSZ3nd3T3Ty82+B42o5AE7BewCXrSkbN Ms7Kv7fE87GH9bchjhwcsmz3Wys36tbgYZKLa3Gsraos3CVzg3y2YxyIDiCPRRA46yYMYQZfEBcix3vS kFoFttnwstAUsTeskNQRYzy46PcxMo8hK16NwfawN2Hgkp5UV9jXIRCOM84a6D/SzoA/6NWJHZL9YcLk upYQutxURz6jbDHOK2uLvr1NfH70D/aTUoGmdbZbjy 98S9wYo7PCE2u3UAZSkTEPWc0y9+v3fTzM4iYQfmGzGs5lnR6TluWjLg9L00LWfT6cX/YKtwJ+7E8LAW Ak1+VVltfl20QvNTfICfzP3goPq2hO39TF+YG6WQrX0XuR2aRfWF6Rw7M5IblXB8/A2nycLKDebLxIJ0 UNg15zdi02Hm+eX3ckyBctInwbsb7qtuSjeckU1xdT 9eSuwKQtDybY0sTWzYuKTvHsV0FgOKo1ttwO+PuhXi6XsD9+2dsAPJHZJYCCPsgyXF98deqD4zABYnlj +OU/ZOPLJ40tkIZupMOc8ZNiZhBA4SzmP/4J6M2OG7PMvPcP6zINnXOLK23pCzenA/parks worker+LE5jJndER5 [file] OE8Jz+vp digital marketing+QLFXn7Qa/7BWy6eC+LV4Zotzwnh8Eq6H4/aYHdO/VPzVag5rigockDKIhb+IndTNhJVkqab [file] L2I0VUbzI4wRxXjMBotio/VALENTÍN/mqtmEMLqDeGXq9qCtQhBba9Npuh+Msopby4D6L2VibfN7VF60bK66H6 [file] NUÑEZ/qMtGlaVm81wYBtTthSvH7RrAcIiS3QRERT6N49Jrw7jZqG1VbOrw6fKswsjMxNPtad/mlBHUjViQX 3/DZcC+CiAhsc/9P1zXzh2qG1S5WoinsSktsFZIHiH1wR/u4pqYpxt5vzWHRlG/DyN2JvwvsQQNKVors OeReirNEc9WBFXrp8qowcj20lJyyJe7xTU+cIZ3Inh GZvtia7uaAIpUJXqS9eHAtfEajAz8Q+1AmVYX7l5/Y12qclIUvItSHYLXj3R4SA9qu5f74QtK1Asy4Nu Vux1ADxVhAx0oEXxFA2xYYhRFYLoUVgOanjLfHCmBWfWHX9eh+VaodSz2t7xfxQR02Omdp72tcrBsP6f 8fIwIeTO7EDcwcxOi43COSkaRGflQggq2vnbVH+grw oBHad2TYUYLnP1zURItWtp+RCsKwLKL5XAmKG2HDxf1prp0Nx2LGFgLURs+uWoemZPAyBJavvWhe2utg qqvBB6GSkgbgz/2G/zBB+TGNQlAMjjpoUcCixJJrHlw+5ztSIOm8HyYngqo8ibRURwwHKNxXTU4KMsDo VFQdEeEpakAsWUHD4iZCmbUDc9gjEGELbnwwLHMMPb TMYPSkfBR+5dEpZ4cFwGObsah7YLSCVZYJpouu+Loretta+gIxgNGH40Ehz/kWwloKUiemgGQEigIouCYwEcA [file] 0FuuFm8euiFa6eZgASIBzJrizkQ5f1XnKRsJhVb/C3+nBguzrYQDE4T8+Nuñez+A1QkDjhVil/5wl/vSrWI [file] jLJUXHLT3CAaFVVmWiorOKBWbrici1J4HTCCTEqgPy BlyUUDDp7Sk2qzqJyxF/dA4PYojPt9nkdfTv7bYckOW4bjq8airVB+PXCe4PkSmgYY4IIU9q5Nkbf09/ H5r/3vRSSYAk3P95XtPz7NltqpOteO4vC7+GJ0yD4iVPVJcquTTr+cowxJg5WpQB2BjVlx6zFrOP5GeC k8jgojfNh6mIa5qQZmJMAo2SjMPqAaHqP8CdaEoEeh 19SkkOaHFpTDNq5VlgLSOFPhaU8/A2/1AK5hhdbtDg5qE6YV86piN5shqlAk5whsaFWUBCx7vu6cGltL mFZf6qsENGzNhQ36o2cPENJWtcHY+umq/JhulAsE5/msJgsHdQIXlbT1MyRTusbzvbTlc6jdyZxm+Representative Personal Service [file] Nuñez+YDAwhBZkgnazA46NBtc1Y+ccHD810Rd8ZZezl9yhrBR3/BUo6v5xzZ79HLYxmzpCdWmyohSPcAXdX [file] UKVgFm1pPzI+1KwgBuLYPZosj18z5Ae1c0Qs57AbrEMEL8WrfdJd1yX3dibp+job service specialist+pqn76Vn9QJ1LLytU [file] f4s0PD9WckV1RmP19kuAq2qm6N0ftZWOoHC+tj8Eg+TK0DQ0TardtuiOrlIE7+K1q9sGOiob9+Valentín+amd [file] KK7Dx8ikhw750vSuEVBZmNuUb0DyBkwaMTm/Iz90GE2Ba1Lt0LlLaoJnL+DfJZZcDELvbu1YasJP/[place] [file] 03Qt/5E6nn1Z9xNeDwjeRhZTIjhl7DtfYvHQbjrgnSBLC20yMWxvobF5albJe7+Y7Mk7BtHsx02Q/Jose F [file] /0cAb1qLFjAexIV6wcue4iGCtam+/job service specialist+oCrMIuB1BH [file] ezua0a9FitJBTXVut0V1wL+oc5+job service specialist/xOzgeRXYcsZD [file] IRONER MACHINE/1b7RU0LEMKXeD51h6G65Hh/WVhfFIYjB8/YdOwOjR2mSP2d6woNXpOs5I5F9Oqhm0mI1JVELyM96E [file] IyH/1YXiC/ywttGWbP94fBmqRGsgG4MUCJwvMNP [file] quYa5/4tsrWzg+RzXZ13Avbx3V+wPBHgaoB1so3+tPDFy/uBa5DLrnKTfrZpQVE6iAdSK8OZp6VYQ+Orchestra Teacher [file] vp digital marketing/teQwgFOInQxZXfA6DlPat1JDpDMSorn7e/mfs7Y [file] assembler liquid center/vb0gFGy3Pabti1IC0KPKw56j40MkAHUvDDQ1MI0DGKgFwkkMmjIsFt4lJA9jb8+/5PeAwvj9M1yw [file] RXlpdpkAzhL/IRONER MACHINE/rTCiVZpLhKStHQ4DtEhWULcn0IrvzhLRGjEYxtnpCzQPXXZbVbLuLBqXYRO6W6q6K [file] DOd5g4JcWDi/c2vmCc3+0UpE3FD19p9TFUnQPZAgPSUj5PNWWS2va4HDScvuqJ7EFjDXVe+nKCIT/manager video games [file] iLDsjrzBbvmkHJxeLBO8qQ3yPdlPpHzug1N0DB25h1o/trina/bBSXgLRhTqCHTiIDrvMSBj7igr7YpB7f b08hgiYSC5NZkSGSVU3PD8yc2JFBXr2coXGEUZl2qB nAY/gISJMGhD2DbHvrTmjAqVw+aNw3qh9pSgdS2k04BVij025kPMVFcxnfFXfkuZkI49mgbS0W2m4bjL /ZL8IFrRWl2dG2QSUg+qq1IxY+9gm7J/QUmVt/HzWeRq5NtqQYWX3n5mIeaEM4DJnYqLa9Z0uXkxvo2j lEzAMKirocNAFePhFDksDkTpbx76590Qc3c9vAUJHI tKQ9RFR1AWp839u3DEePXt4U9WmOEoMxYOZ3w85oP2lv4B3Eeokzy6S7SRoRhqTvykiz1DM+QPTwxMdc mP1cgPFWl8j5/NSQKMrr4QfJPnhjCQMzNP75P3J1vXVxtgN4qyuE31dHO1cFwt81n0IWsWK+p/be3UoG v+RuYBw8iQLk/MJAkt5YpvEaA1lBN0eTEhrTUGWp05 eBtDbvz+rBYwDXRaVwBYr2I8C7yPvCt2TVYeAkcdYUnxCii4XYttn0Wydr5hCpFq5lmalNcG2fymBbF3 PBPYfR4dKHiawTFi+lzWpbxqnygn5f/dYU6pubrBZATa96Ba4go9t63v3sA6ml0PgnifdyWg4BC9DU+r FN+cvI06aX5aqDnT7mWI5vDjHGmuPvWekjBmIoX+PQ OqueF+CVcgbQidi89SJAqlYEyDcEnoxBYhqN94Dh5MidzC7QrsJ6ep2xMoB1lRd8I+AmsdrcLFjHgSg0 zPLUlDTbVmkq326k7CHiB4AemOIcK3Fs5BfamMZALcwAPP52Qse/mxg2GQt5FKm18Rg9QTEdtOR3859x Juan Alberto/O7lOqR59AJu+iavt7uP+3f4PyJvaooYfJz2SIJ Fozm9cguVFnWNqD1z6g8oNF0qm2pLCb3w5pEVqFD4AxfNnIYptYjGQ+psfM8oMovvI8K7sWMFbEDLQOc 0WO8VGhkCUGoZRtynFYRvj0HDI+tjRn3MaApyxTHZNNqxFFOaNtwQyimJ4x/gNzs2U+IstaRoOddsG4G nQuG7srHQpNih/N9r1Hx3oVtVvkfM7oxa4mMD+qmma ZJhwUfhvtdQex9RRwjpIDV2fu/Tu0sZngu1WZpIf1A0OjaACdUwu0rNwaJeN0xY+ZtagQoJesvStarkm doQ6VLBaNSf2+YSzIPem3Wo2uH1w5GSt3p5OfC9o5+/sTMlVq8cdFr2Neu+WPC1iR0EaY+DJJ52sNdFp NM6F3peTzLuSOEuxIYU8xlxOq6w66IP9iL0m9Px8Uu 9HDMDL3lhuEVdoJbnE0Vjk0lFqkNdRfDdWJAOqiJ5xQSopflls8VqNdeqQKzF8VqWGZGOBjKSbVk1Iau mL0rTnE4x8yTym+zv+oDMrO+JVsLHCLc77L3MxoH7quHogukHfTmOPP/ZIxnES2w4t+vi04D1vgMkVkQ Uqr0Q5pedMFFcszagaRNFcaKN6BPEqyQoqyMET1tfN mLmfD3CIPdBS6QIMUZ2XJ3r9cvQEfJw42q21434HEeaLJ/Eygk0MoGmh36xGKZFNi3dQFnrCACXOzl22 nFFPFzaSjJ0U3IGLNGvkQLF7JLpCUj3Ic+tz8i6zihY6at4f/XKdMuYwvRsCqMnJUu7L5CfXanudVgoz Df96DJ6NzVwPaPZXGqyQDkhTdSkO+La2a5ZlKfBbBN batRpQQdnVvfcYbl/+PCw74kBGMASWqYS/GLBxFPWAb/gII2zi0OQAAZwzfN4hWexxur8Esf6MzpEH [file] CVFNY4TkL4dzRUUb5KcDLk5F2Z95uIZuOJ5dNCOIAchNfLynU4NPTGYec0+post graduate intern/HlJX7Xrsr3z4nup+Z [file] Valentín/EgLxKl04N5dJm0hFGN/rwmGQYJ4BsokpOxuSDL+ [file] 2/under water assistant+/xDH0A8Fa1mIgvHhUiA8FlZGZhSafu80PxSe [file] Hnh/Kh0VGc1+job service specialist+/V+PoEas7KeHCnyX7zb9njvChZTJHk64CZrFKndQjvIIYxqfKa1qoLKLeneh4NKrN [file] qKbxs0ILoasBOseamY6z/CaWIbZimYuFH+9aQN/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 7kU8mRVLCF5xwIBvEO2M93POoHYhwqre5ZPFkPfo19aDLF0nXJQXqwMfhnFeyxW3MmUYC5cbO2FsUOiK FCAcFtM9SdTti38LLu+TAvQ1b+Nz9qFJ/Veq0t6Uzdi/Dxz5FZ1j3txQgJnf3sH1qE5+VwP2SEdUI7N7 T3gU3ONCvyTU/zX5pl5/+mXRCh0jW8N+l2ZKIjb3qU wg+s6kBYOnCOL+PQ4id2pyjhyX2jaAAuEcXBdtUVITy+Megan+XKmRbgVaE9j6sxAiSibjGLnF2B/hzugj [file] wLSk/vB+XkE8i5jceNuj/jewel inspector+504RfFpLj/pGssE8qr [file] LMJVxo76PU4L07bkpP9/6NBuokL56xOu+jPdNzC/IRONER MACHINE [file] IFqcSEh3fa4RABzfUdX6r1aaHJnLyanN69NG+valentín/FE [file] yhv66VSmeheHCA77uu0rMyU0i1V7PCHVTDS07gOr+YsmdoqHkhC69MBkeziKWrojf7/1yVlUaNjNE+jewel inspector [file] 3cyOMcQQy4lTphujCG8ud5nMzhJNcXmZJVHKF+Representative Personal Service+O1FqB+fW7k52NuZdiVvDp0Q/iNGs5Fcw/qGOZM [file] jutdXouO0hut+78cTRzvcvMQMr3ezdzolbaND4JrBarPjWCk9Xcr3tpDcrx0iwvxf0+Am2ZwRgGA/Román [file] sh02pA9LMZzMgcZTe0BfA2Ufmobuam3uXX8bOLdnRlhCFS/VALENTÍN/tUjLyRUuKzzEIfWeCdCh4to8MgFasV [file] 3tx/NkXUnwQC6b39dJHOmFQ++Nz3lXBc3/rq+Evangelista/fTFYViXnRGm1Wjj3f5Xl9bbwz+PSXvHOXOkSdA f/+Ggvjkwokb0e7wQX5tgGmpUcwAAFllZCpJ37etfly3qcqFw2US1Zyoky/bkCZt8Lnn9c91zoSQXaLt /j287x68/dfOzQjyXU4+BY7SuWZvkVgQ7SQc7JK+Decorating Consultant [file] RUocFPtTPymBbXYFxdmZqMucSqT+qrE2VmC+wyvnqbbiq5ViOSpwKrWqd5rhaPrTfdggR+YhRaQN/machine operator [file] TccPLIrOuQMybGn/Decorating Consultant/LX+En+bn3UyfA6a7PnROcAubTAWrEFaAcVl8iLeAstFD5jDhmmGVvGlodt2Va [file] ICAgICAgICAgICAgICAgICAgICAgICAgICAgICAgICAgICAgICAgICAgICAgICAgICAgICAgICAgICAg ICAgICAgICAgICAgICAgICAgDQogICAgICAgICAgIC AgICAgICAgICAgICAgICAgICAgICAgICAgICAgICAgICAgICAgICAgICAgICAgICAgICAgICAgICAgIC AgICAgICAgICAgICAgICAgICAgICAgICAgICAgDQogICAgICAgICAgICAgICAgICAgICAgICAgICAgIC AgICAgICAgICAgICAgICAgICAgICAgICAgICAgICAg ICAgICAgICAgICAgICAgICAgICAgICAgICAgICAgICAgICAgICAgDQogICAgICAgICAgICAgICAgICAg ICAgICAgICAgICAgICAgICAgICAgICAgICAgICAgICAgICAgICAgICAgICAgICAgICAgICAgICAgICAg ICAgICAgICAgICAgICAgICAgICAgDQogICAgICAgIC AgICAgICAgICAgICAgICAgICAgICAgICAgICAgICAgICAgICAgICAgICAgICAgICAgICAgICAgICAgIC AgICAgICAgICAgICAgICAgICAgICAgICAgICAgICAgDQogICAgICAgICAgICAgICAgICAgICAgICAgIC AgICAgICAgICAgICAgICAgICAgICAgICAgICAgICAg ICAgICAgICAgICAgICAgICAgICAgICAgICAgICAgICAgICAgICAgICAgDQogICAgICAgICAgICAgICAg ICAgICAgICAgICAgICAgICAgICAgICAgICAgICAgICAgICAgICAgICAgICAgICAgICAgICAgICAgICAg ICAgICAgICAgICAgICAgICAgICAgICAgDQogICAgIC AgICAgICAgICAgICAgICAgICAgICAgICAgICAgICAgICAgICAgICAgICAgICAgICAgICAgICAgICAgIC AgICAgICAgICAgICAgICAgICAgICAgICAgICAgICAgICAgDQogICAgICAgICAgICAgICAgICAgICAgIC AgICAgICAgICAgICAgICAgICAgICAgICAgICAgICAg ICAgICAgICAgICAgICAgICAgICAgICAgICAgICAgICAgICAgICAgICAgICAgDQogICAgICAgICAgICAg ICAgICAgICAgICAgICAgICAgICAgICAgICAgICAgICAgICAgICAgICAgICAgICAgICAgICAgICAgICAg SMDrRFJyOAFuJPUsEDLvTQIaSPZgAVPeNIZnLIe2T1 iuETHrCKYyDW0gLMj7Ut5+SYpSRxFbNRM5obVxvR0WBE4sm9UaOGolWKAzx8XhXGp2IL0XMMVmIDcqPK 3YLGiyoc3CPVXwHJBcbGQGw9bbHpXzRKS5EJPhKiujPA8INIPfU3zftgQbIOKqDSBPKOpzWLINLVohGO WNEDRtIIQvXaHjOnKiPDSaTLSbLZUZXOM1QIRlQlEz RBywZM2Ck1JdlVB0RLu+Oq4EVI7jd8IaFKbkSdCrRT9jub8XFJgMYkRvL7EecsF1HJF5KMAeKs2XDPGh LMQyyNMdALOqSYHOMdJhP5KnxL09DBWWHc5+EIodoyTcMizHCjL7TTYlr2TtNWi3NS6MKGTjMOv6nWWi F44nw8KoeZQrSkntU4Qqh6keozHcR6PqmIuqAO5zKW QhngqmCFXrBVLnFp3gGZ8wKLTsYQY5GjH3JDWEMH9QBXRtURVizKIfJAQkBPLEJJ8OUBfiRSM0DYJees ZseADvOJjbPM6MMGTykmMjKoZsFGQIADx+Vl2HNK2zv2DlNGecWBMqPY6yxz4THRdLEvRkN3S7zCTpD5 Y9UCxeBd3KVZLpSTRjSnRuRSTVBDdaBU4NRA5fejI6 PT0FoQCiZDHcMAKpgKUcGSj0I93pqFBqRWswMW6UNDL+Munira+Fx5LPJNhXOVqVDQfOmQyGOQVQsJgF4Bs S2BFr0WdP3AtFX69uNakrvPmCQzsFP3YUS2kGGJuYPJOPH2TeQUnmC2sbsHhAvNiCHLBCkCnI71cgEHn JQFxLGNiLYQeHv1WBXGdY3GaisLvcTzpizLmLEUuWM EQGC1WLTgyhhGjcNIsoDqdOD90jUehXX9LXx0IXsAvCV9hif1MzFTiIv6PDICxXg7TFSAnXWLwJONlEM H0OXOzRvIdPOypWCFpLZBjMHW6HXRzXKCeQW2PVjDlNHscNqM1CAveFIAjALHzzc3YYCTkFYD7VwS9Us UhCTRcKYIjOZhdTTRjTATkRAF8JZPbIODiUP1EEyIq HBAvPPDmQWusVZTfRBZfcl2KBBVsGAOtQnYeJnWaEGDrWICqLAtnCBGmSID6VcR7KNKdOMBgVL6RRmOc TCMkRJE8VbjaSJQhICNqbd3JMOCyBWTdPrBlARDvPAKlVIPkWAekUEPySGO1PYZ0PFKwGSOwZT5HXsOt ZSVhIDJ6BqUjIQUvPLSejo9GJPVsCEFmKRd2AWLpDV QrDOSvHNdqKSPfXSK0Kvj7CWTdDNIlTL7HBdLcOANaMEU6YAVmCFWdGWSqxw4AXWCfIYVkJda3XdYySJ JvWVMhVQliSWLxOJS5WOi4KISbPTIjSB6TIwGuYAHwFGrpLfDlFJTpTDOhye9LHLXrMIDrBRE9HLKsAS JnIFNmDCdgTFOrHHS6BLN5MUVrMXXlAC6RViTmJRYm OPa0TwGaSPSrHFKssd2XNHCyLOFjDHhiALUqMMFaTXEmASokSEPnHWOyRFd0HXZqBMRcVR0YFgWaEZHw HdQcJWZqVHKsETMxqu2VBMSnGWWxHHF9TPFmFZMhVXWqQFtcKNAcGYZkCtFaNNItQRDgNH2VHfOuXPYg BzG4TeVnSBGdYHNjgb4KEZAaVZMdXdA8RPLnLCWxYZ PqTZihVVIpCPOqGRD4YXZpVYRuTC2KToElMYAkUoE8RbHsFKFsDOCrwz1YHTWdRLI3ZRJbFATfFJCkQE JjFLvuMYI2KGj8PRg1MNWmIPEyHY0ECgCrQShlFqVhWNLzIMEfFEEicx0DHHZxGYM9Ihw1PSCrTCLuZC DjPZwwQKI6EQz0KFV2DIZmQUWzQE7SPwSlZAcaXubw VNUaTZSxPWQrqq7PjMVohMwvwx5GPCoVBv7HcTboEDR4SErqTs0lfNZfZBKkQVKBAu5LpsXwADOaTDDF OZqcHDGiOEa1EEV3NAYpKbDeJmFrITbjXAJnBUE9KMEzCfe3DlOlAwL8NUz4LkCmOTJpWLFkKLXwU4Ru NTFlYjdhNDIzOTRjMTM+ZE8uURg+Uw3Se8LtoaL0vwSwSFc2XAz0RcTcHCqiHBRGTt6F ID Date Data Source [id number] 11/14/2019 03:13:38 PM EDT [facility] Name Value Range Interpretation Code Description Data Marva rce(s) Supporting Document(s) Consultation [facility] HCKHLq4vYtXNBtQa88/LYHtoZUAax1YxDXloUIb0CVfbGEYbQ4HnAZH7nH9xRMV1CEoHJqIdNdFeTeN1 lbm [file] job service specialist+RMr4jSJ5skVt+ygdET+uEciwsJwX2gCzev1iJKj5igHHUsGPx/MGzcVyzW/jYpwfmZpbwUZR0avx/ [file] EaYpGRN4CdZhGyU5U3WwRN1jDWWRSq4+CKrjpXHtoKdaWUTHYuJ4MjGjIOdmRLGYZx4B ID Date Data Source [id number] 11/14/2019 12:58:41 PM EDT [facility] Name Value Range Interpretation Code Description Data Marva rce(s) Supporting Document(s) Consultation [facility] BYMNRs8aFaITHsNx63/BVNltEDMin1DiQGouEKh7WUdrELKkO9PuGLP8yW0oFOJ9FUjWPlTuUkYeUfD4 lbm [file] vyKgYLwnYQzmXE4RAMFUY0DWTd== ID Date Data Source [id number] 11/14/2019 01:11:43 PM EDT [facility] Name Value Range Interpretation Code Description Data Marva rce(s) Supporting Document(s) Glucose [Mass/volume] in Capillary blood by Glucometer 136 mg/dL 70- 140 [facility] ID Date Data Source [id number] 11/14/2019 09:51:00 AM EDT [facility] DATE OF EXAMINATION: 11/13/2019 19:28 EDT BRAIN W/O CONTRAST INDICATION: Trauma, pain COMPARISON: None. This CT exam was performed using the following dose reduction techniques:Automated exposure control, adjustment of mA and/or kV according to thepatient's size, and use of iterative reconstruction technique. TECHNIQUE: Axial images were obtained from the nguyen magnum to the vertex. FINDINGS: The basal cisterns cortical sulci and ventricles are prominentconsistent with atrophic change. There is decreased attenuation of theperiventricular white matter, consistent with small vessel ischemic disease.T here is a subdural collection overlying the left frontal region as well as athin subdural collection in the left parietal region. There is no mass effect ormidline shift. The calvarium and extracranial soft tissues are unremarkable. Thevisualized paranasal sinuses are well aerated. IMPRESSION: Atrophic changes with periventricular leukomalacia. Left-sided subduralhematoma. Results were discussed with Dr Quesada at 2018 on 11/13/2019. Care was taken tomake sure the communication was clear and understood. CERVICAL SPINE CT SCAN WITHOUT CONTRAST DATE OF EXAMINATION: 11/13/2019 19:28 EDT BRAIN W/O CONTRAST INDICATION: Trauma, pain COMPARISON: None TECHNIQUE: Axial images were obtained from the skull base through the thoracicinlet. Sagittal and coronal reconstructions were made. Intravenous contrast wasnot utilized for this examination. One or more of the following dose reduction techniques were utilized ineffectively lowering the radiation dose for this examination: Automated ExposureControl, Adjustment of the mA and/or kV according to patient size, or Iterativereconstruction. FINDINGS: There is no fracture identified. No evidence for subluxation ofvertebral bodies or their articulating facets. There is degenerative change withosteophytes at C5 and C6. IMPRESSION: Degenerative change, no acute injury CT SCAN OF THE FACIAL BONES WITHOUT CONTRAST DATE OF EXAMINATION: 11/13/2019 19:28 EDT BRAIN W/O CONTRAST INDICATION: trauma, pain COMPARISON: None TECHNIQUE: Coronal, sagittal, and axial collimated images obtained from themandible through the frontal sinus. Intravenous contrast was not utilized forthis examination. FINDINGS: There is left periorbital soft tissue swelling. There is near completeopacification of the right maxillary sinus with an air- fluid level. The orbitalrims, pterygoid plates, lamina papyracea, and mandible are intact.. IMPRESSION: Left periorbital soft tissue swelling. No visualized fractures. Electronically signed in [id number] by: Ivan Pelletier M.D. 11/14/2019 9:46 EDT Name Value Range Interpretation Code Description Data Marva e(s) Supporting Document(s) ID Date Data Source [id number] 11/14/2019 09:51:00 AM EDT [facility] DATE OF EXAMINATION: 11/13/2019 19:28 ED T BRAIN W/O CONTRAST INDICATION: Trauma, pain COMPARISON: None. This CT exam was performed using the following dose reduction techniques:Automated exposure control, adjustment of mA and/or kV according to thepatient's size, and use of iterative reconstruction technique. TECHNIQUE: Axial images were obtained from the nguyen magnum to the vertex. FINDINGS: The basal cisterns cortical sulci and ventricles are prominentconsistent with atrophic change. There is decreased attenuation of theperiventricular white matter, consistent with small vessel ischemic disease. There is a subdural collection overlying the left frontal region as well as athin subdural collection in the left parietal region. There is no mass effect ormidline shift. The calvarium and extracranial soft tissues are unremarkable. Thevisualized paranasal sinuses are well aerated. IMPRESSION: Atrophic changes with periventricular leukomalacia. Left-sided subduralhematoma. Results were discussed with Dr Quesada at 2018 on 11/13/2019. Care was taken tomake sure the communication was clear and understood. CERVICAL SPINE CT SCAN WITHOUT CONTRAST DATE OF EXAMINATION: 11/13/2019 19:28 EDT BRAIN W/O CONTRAST INDICATION: Trauma, pain COMPARISON: None TECHNIQUE: Axial images were obtained from the skull base through the thoracicinlet. Sagittal and coronal reconstructions were made. Intravenous contrast wasnot utilized for this examination. One or more of the following dose reduction techniques were utilized ineffectively lowering the radiation dose for this examination: Automated ExposureControl, Adjustment of the mA and/or kV according to patient size, or Iterativereconstruction. FINDINGS: There is no fracture identified. No evidence for subluxation ofvertebral bodies or their articulating facets. There is degenerative change withosteophytes at C5 and C6. IMPRESSION: Degenerative change, no acute injury CT SCAN OF THE FACIAL BONES WITHOUT CONTRAST DATE OF EXAMINATION: 11/13/2019 19:28 EDT BRAIN W/O CONTRAST INDICATION: trauma, pain COMPARISON: None TECHNIQUE: Coronal, sagittal, and axial collimated images obtained from themandible through the frontal sinus. Intravenous contrast was not utilized forthis examination. FINDINGS: There is left periorbital soft tissue swelling. There is near completeopacification of the right maxillary sinus with an air- fluid level. The orbitalrims, pterygoid plates, lamina papyracea, and mandible are intact.. IMPRESSION: Left periorbital soft tissue swelling. No visualized fractures. Electronically signed in [id number] by: Ivan Pelletier M.D. 11/14/2019 9:46 EDT Name Value Range Interpretation Code Description Data Marva rce(s) Supporting Document(s) ID Date Data Source [id number] 11/14/2019 10:39:53 AM EDT [facility] Name Value Range Interpretation Code Description Data Marva rce(s) Supporting Document(s) Cholesterol [Mass/volume] in Serum or Plasma 101 mg/dL <200 [facility] Triglyceride [Mass/volume] in Serum or Plasma 146 mg/dL <150 [facility] Cholesterol in HDL [Mass/volume] in Serum or Plasma 32 mg/dL >50 L [facility] Cholesterol in LDL [Mass/volume] in Serum or Plasma by calcu lation 39 mg/dL <100 [facility] Cholesterol in VLDL [Mass/volume] in Serum or Plasma by calc ulation 29 mg/dl 16-42 [facility] Cholesterol non HDL [Mass/volume] in Serum or Plasma 68 mg/dL <130 [facility] ID Date Data Source [id number] 11/14/2019 10:27:44 AM [facility] Name Value Range Interpretation Code Description Data Marva rce(s) Supporting Document(s) Hemoglobin A1c/Hemoglobin.total in Blood by HPLC 6.3 % 4.0-6.0 H [facility] (NOTE)<5.7% Average risk of diabetes (ADA)5.7-6.4% Increased risk of diabetes(ADA)>/= 6.5% Diagnostic for diabetes(ADA) Glucose mean value [Mass/volume] in Blood Estimated fr om glycated hemoglobin 134 mg/dL <126 [facility] ID Date Data Source [id number] 11/14/2019 10:17:17 AM [facility] Name Value Range Interpretation Code Description Data Marva rce(s) Supporting Document(s) Leukocytes [#/volume] in Blood by Automated count 9.3 10*3/uL 4-10 [facility] Erythrocytes [#/volume] in Blood by Automated count 3.62 10*6/uL 4.1- 5.3 L [facility] Hemoglobin [Mass/volume] in Blood 10.7 g/dL 11.5-15.5 L [facility] Hematocrit [Volume Fraction] of Blood by Automated count 31.6 % 3 6-45 L [facility] Erythrocyte mean corpuscular volume [Entitic volume] by Auto mated count 87.2 fL 80-96 [facility] Erythrocyte mean corpuscular hemoglobin [Entitic mass] by Automated count 29.6 pg 27-33 [facility] Erythrocyte mean corpuscular hemoglobin concentration [Mass/volume] by Automated count 33.9 g/dL 32.0-[facility] width [Ratio] by Automated count 16.1 % 11.5-14.5 H [facility] Platelets [#/volume] in Blood by Automated count 239 10*3/uL 150-400 [facility] Differential cell count method - Blood [facility] Neutrophils/100 leukocytes in Blood by Automated count 79 % [facility] Lymphocytes/100 leukocytes in Blood by Automated count 12 % [facility] Monocytes/100 leukocytes in Blood by Automated count 8 % [facility] Eosinophils/100 leukocytes in Blood by Automated count 1 % [facility] Basophils/100 leukocytes in Blood by Automated count 0 % [facility] Neutrophils [#/volume] in Blood by Automated count 7.30 10*3/uL 1.8-7 .0 H [facility] Lymphocytes [#/volume] in Blood by Automated count 1.13 10*3/uL 1.2-4 .0 L [facility] Monocytes [#/volume] in Blood by Automated count 0.75 10*3/uL 0-0.8 [facility] Eosinophils [#/volume] in Blood by Automated count 0.06 10*3/uL 0-0.5 [facility] Basophils [#/volume] in Blood by Automated count 0.03 10*3/uL 0-0.2 [facility] Nucleated erythrocytes/100 leukocytes [Ratio] in Blood by Automated count 0 /100{WBCs} 0-0 [facility] ID Date Data Source [id number] 11/14/2019 09:04:54 AM EDT [facility] CT HEAD WITHOUT CONTRAST [id number] RESU LTInterpreted by:Krishna Lopez, TAMIELINICAL INDICATION: 74-year-old female presenting as transfer from outside facility where she presented following a fall. Found to have small left subdural hematoma on outside imaging.TECHNIQUE: Multiaxial CT images of the brain were obtained from the skull base through the vertex and displayed at 5 mm and 1.0 mm increments. No intravenous contrast was administered. Coronal and sagittal reformatted images were also obtained. Automated dose lowering techniques and/or adjustment according to patient size were utilized for this exam.COMPARISON: Outside noncontrast CT head dated 11/13/2019 at 7:16 PM.FINDINGS: There is a thin left frontotemporal convexity acute subdural hematoma measuring approximately 2.3 mm in greatest thickness. There is trace extension along the anterior falx. No significant mass effect is exerted on the underlying cerebral parenchyma and there is no shift of the midline structures. Trace hyperdensity at the anterior C1 level may reflect pannus formation. No evidence of acute major arterial territorial infarct. There is mild prominence of ventricular system with a commensurate degree of parenchymal volume loss felt to be age appropriate. The basal cisterns and foramen magnum are patent. There are mild, nonspecific subcortical and periventricular patchy white matter hypodensities, which likely reflect small vessel ischemic disease. Atherosclerotic calcifications are seen along intracranial portions of the internal carotid arteries and vertebral arteries.There are no depressed calvar ial fractures. The extracranial soft tissue structures are unremarkable. There is near complete opacification of right maxillary sinus without expansion. The paranasal sinuses and mastoid air cells are otherwise clear. IMPRESSION: 1. Tiny amount left frontotemporal convexity acute subdural hematoma measuring approximately 2.3 mm in greatest thickness with trace extension along the anterior falx. No significant mass effect is exerted on the underlying cerebral parenchyma and there is no shift of the midline structures. Findings are stable from the prior outside study.2. Very mild chronic microvascular ischemic changes of the white matter.3. Severe right maxillary sinusitis.This document has been electronically signed by Maile Velasquez MD on 11/14/2019 9:02 AM Name Value Range Interpretation Code Description Data Marva rce(s) Supporting Document(s) ID Date Data Source [id number] 11/14/2019 12:27:37 PM [facility] Value Range Interpretation Code Description Data Marva rce(s) Supporting Document(s) Glucose [Mass/volume] in Capillary blood by Glucometer 121 mg/dL 70- 140 [facility] ID Date Data Source [id number] 11/14/2019 08:20:31 AM [facility] Name Value Range Interpretation Code Description Data Marva rce(s) Supporting Document(s) EKG [facility] QITDUc3lQqVSWzAzg9NjZyJbGOYaUS2xggr3P5V3kFTjS4OgiPWkx4oqO9VoL3GlZBLmFDJQQE6JiDSn jb2 [file] z/FU07u50MffS9E7z5cPyky5Go4U85g08Zvk39zkTF 7/wd+iQ1y07YfvwPN83Ozb8XV+/7sAg3aWHqG74ljSfu86PfQnizlUgASbUAgG/+Lmrtef7y1q/NF3x2 G3D+g+84V/r1pnV1U1biek/2kgi3KjGqg9UR2s05/p0ha8hf3mGQSznddtDy/6gr28K0qD3oby905+QA Xf8MgkY0TO9Na2JSpAsqj4WOdVIyxpu3S5263curk0 x/rXc0dOcB+WC78MK1Ji/eQEvrrP7/3AV/gD2Dq2JQfBYvXD5Cw0Ij/iX54d2YGoeptssJ+8j+8LfKW6 nRsUmzF7zq7E+Sy39H87ILNWN66wM46oi4wuKd0WU5Y/Dl2DT2L2SZ2+LQph9kDpq/yM89gwK+CrrAP8 HyAX1NUy0Y0OYwLg+L4D+v7zF9CdyA9FtaE28P3QwY ag9QQEz3sZ3em0ErOchW2wpan4a/wD0wtIgr2kN/pVQn837OTJ8K++QV+DvgZ/fykn7tPdjq8TnfEunm 53jEOQhKkega6p4h+j/Qa+awl2dzkzM/YHjrYrPu1WZusytrT2v6/UH95Qf+Ov+sPPGvgqnyfSJ+qzIH 6psRL74Abkj33qsb+zcfCp7OY5PDbG2mhk3Uho+fCk Xn8a7AYGI+wOaftj4gbtC+joc7t37MDP2QEQ40CG0/m9vx5+1tWQ/jRaKm6BtVH7G42h3lk3k+N96Lug 74K+wFe6oO+CvmtCPvRdC+kL72/T9F67C8/kkZ6Gi48fP80pXu3tueTgmm84sr3tb485D47Ps9Ou3cxY 3jvQd0+Vq2RA1Rtl0140nhIW6ztvWb/3dJl5uMks7G 1Razf8JWiOslIodS2Xq1BBjL+kv+/bA1/FKa/2/GrNsyocpXs0KulQoTR5lg1IL7F5/+X7ZnujmldviZ nzbPvClsjkFjath5ErPUtLmiclhFfSWm4m5O6+6efgW+Cr+8t8nxfUE530gXa2HZl1e/H+8+ce+CqfHe pI0Eq3G7PB2yh8YKt3p137e/cNfBV16/i+/bXfHvjK 8vnbTnvvSIc/D43QwqCju/ik1OzU3y72L73lw/pl6GjD7u5/2hJoSX9A3I31wxBs2HwQ3yVEAiQpbS8K 70g/+lLlwACc9rmerEzcF4swVRXwbMOLk95Ew9p8EN7zkEJuV+Nznt345o4fHMXkuo1Gz+7zq//BVzOO kl50ONBQgy17FW/0eB/5Dkj6dv2oCC4TcD+0x2Yq1B v4KuwQ+Cq+ihO8Mvhq4HabCmNrcWzS30Fb00PazR+k4/y9whn98TtW9Zfuc6v0a0LpAj2H5Z29CQuycW 76erelC579O23r57I3kQnQ9klVaa2Ic7HldYCK7A++9+DzR9+R73/01NF7t55d/nAOOrvmeeqPvpqnlD /3dfri1Qr1A/iztt5xfL9lU9lN3sW/xxHn7/NHX8nj 0hPyP/hvHdh9QFtOE/dhY9xK1/iOB1/bS0lcrQo/nmy+pw60RF0WxVOZA1Iv398f9TNODu2w/n42l53Y 15vvd+VckmJcFv6IgetoElla72F6GjAspCx8hRn/ohr0Uc7b7Izqf2cj/xx8dZ/2gpamii3WW3F6qf2b +TjeMvzu0e8er47XkdkfLpJI+91ovwdffZ+RvvH+/s km6eb8shyk+yPwVRwPbK+/Gk2R/vrnEfhKIr1/2T9LN2ftT0bN1e01eqad1H54OCzBzpyJD42wtX/+2n sIpap81O6NY/jyyUD61A9MjCEx4kawNx171PBxTTRzdgMon4Wseii94a30+UkYJ14OR7fd2gfK+Cr12s 8Oia/vdP2Xd5Me/XzBtyzgO88lwn+eAROyHkwv1v7B D6km4yccJjfy5G5H5q8CzU7+GdraE2NX0fwH10np6XrcVR9vAKUgANxpe/7t9WtdUhrRui3MoqdYA4i3 rDD33wo+VK6wAT1cswSolUNAgc8rzKR29ZjvuhHrEqbM3S9CC11l6jpo0OIte31W/AhKv5ybG90FW4Or qonQxIwIS9Q8mQU9eEjXMDhjp7R//Yez0zpe3YjZhc guAbTnVSuDto0ZR0v9wVg5MSoms+IXTNgz6EqZUGXaS0X/+NUwfF+NFcl3Rqngz/XQ4fi+WB8cju/rb7 4/MH040yjca3wzvv9p3cgofES4mj3k4WnA3k+XVo5Z87U40QR9/hbMlseUJq0Er5zPxxXItt046K1bm2 eN+eLtI+XXC14aJwdgFcbgEnxgQz6DxhX+dp308rZr 3/rCmG//mylc6FstjsZUavyN83129nXzXu2AfW52bi/UkaIaogWRylRLaCnd9r2HqvHJUzmw87a2Z/68 Suu48D3TjJk+P/EnYz50eacGpml0jx55Q6G+3ricYc2O4684e066X6b1Iout55w+G/3zRn+F+NVA/Gog srSWgqei7Ko//bkaspAnjc1lluOHmt81+e16138Ud/ pae/jZ2ls/gbmm8lqgJ8lsyX+Q45A/Kp7EJ5jowTLh/+5YwulPB3nt+mAvkbHzCsex5qNaT227tdpC6L ba6DnR+57tvTMg/+3fMOArk/b6PppECq97bQUNqzk/yhJMV6qip0rQ10m/+28J85aCUF4Z9HWoXP/7Na wPGtYHDeuDhvVBw/rl6OEfQp6Log89oi6dYYSbs9MY fuj9Q64iFy1s9nihr/7K+cjLiJ45kY1e/b4qHGNY0Ps+IaYIMnuk6rAvGZe15eV09ZQ7drs6ukysBRn/ A19Zf+OR9Tf+3ht48rPXkmT2iX9V+23N95PN8UYz+X2i6Yws0Zdza1AHK/k+vu9A+wW+MyMjZ66b7zZS 1rMwjnsGTleLd7sdlOpWP8xnKY+rZjlDTPFcROa90Z 25RfKJseHJ26iKNZVyeiq05Er6Pvay4On1PLd35Vh07umjv/3o2/F61vul2M5vqe0q4kK/jpO3f+9H3r N/I+tz9m+ECF383xvFOzEgDK423+psb9T02UTKxl/zQPaptp4e8XDlcBcRvLJrgars+54/7lX2mVjjo+ Bqfx4qDua4/ZkC6ykriL+job service specialist/S33m3+9jOYv/HXsD5o [file] zv54QkYlRvLB7D+/D1K539zPVdpO2Pa8ulrY70 f3QsScgkdyIkiZ+W10egvaV7u06Jc0bgwCgc/ht+Vzg+nrf+KjH6lq0UtmspcI/Qigoyvo2Csn4x+Bjw 9otk7ncT77cINj/ps4TtR45w122iblxaoF6q/JwnYU2x8H7tf67/G/lm1Ch5p4un0Ggz+hhI1vE09Iu6 Jg/dL/2mDn9/5+/MT8Hp1AqF9zu8wpK4/mmaF12dr/ T0jrb4MoW10Zoh/hLF2rm2aubd3uiKV7RwCT0H8pl+v9/vkTWhyomkCd/h41ekhMixqoSfCem8ro/H89 vdt4gfKm8y0AO+c8mOi5rG3W3D0x/1gwU4p66WzvyfmcRckr8q6UowmahvSqh3H0nAagwZEIZ3F+pzpS THjHsv1Agme311V6mFpx2XUfI8b72fYh3SiNtdCByg e/Y7gXZtFdC9vD7d7Iq/62b6VaF+fsev+fXDkQqh+qjIhPD+/vqryIPw/ctxRV4C+I3x7fenURwW9rSX LYJ11lW4a7Skabn2/cLvr3+OzAfvb/h9wu/wvBuedy/2pbSi8YyzhfnB09731k0l+4HfD/fSs7nntTR5 JvIz8SW/feH3+46PwlPxp7WzwxcFxM7X6wJ4BzOsQL yf7Jm54bNk0z/wvALPK/U3Ms3y1NkH27yr/Ao1T7SFFjgVRM995MkRnxRflpf0jCN+ctBXDvrKS1/t/P vFE/PKc10RuXo+2vn7gd/heVNfZdxSX/BysF8T8yf6fd6RN/Yy609OF/cY8f6laYnhG/VVnbuhfIHyBX 2AG16GNfcoWaj43hMi8vo9gMh0QAC0gY/1ufRV/F76 qv5+5aS+wmBIJ2Oh58SG+xiAadn5vO2H0mlr/AqS23TP+A7WH3dochsn3Ek29E0G+eqAQ8rVwn2xc94/ 7NA/C3sODnQMh5nH+qp+X5+Viv529rVg9cEPV/Xl03sSG/Gf1Yu4G3a131ZgBucsa/5D1q1xrwq/3+8X 2hFe6Da30zv20yrM3hi3rz+Y5029eqdhdfn9qwuh/B t+Chxq9t5416RVMhY9qRJeBhK7sE/PW3/V66Se0ftfwkt0DN4CloR/4/LxiW2rMD18wsiKc314/tZ3zP 3jF8eIzcKb+40kA9/vCscrlHPgukffMQb3+G97jhz0oicOO/P9W3///I4t89xahy/fc4v+02gtjXFB97 /3qeo598+h/QqQEN4Ko5oCFEOh5p0/wct9z8zeOG5Z WQSg2kOrWSgv3jnn74sz2Cdi80AJ/P2dv/+m24F4fHFV4+Re+dBX39+/15SgrFthyaT0p48UV+/30Ff9 utrgcdeBdSUZBtI5AW782nyB72yh4H8ygrRPA5Wiyuh/82tmGDn2Zuj4ge7/8494Y2o5MuBNC95O1omC SqE6GSEQgD+/+dFdT0/g5ScMY2dMIgz44JO4hABzAx BXF/YZXA588ie/b+qrnb/rq+epr+rvA78f+N3IX3azIBmyOg/fF45/+opIdxxu7Bc9twd8dT8a+H3B7x hK3ZGZaI7Er5/x6IK+uqCvLuirKwbXhecVh/LheUFfXdBXF/SR9sf8lx2++errn6/C84K+xccxP4puzP T1zY+ejxbDHV8Qh+g03wt73wJVvcC3Qm300W/D/cDz gn91wb+6qa+xcFPxCwc7Ga8W+Ne5HPaq2sN6J/c8/QqQE6N8NoCn/A7Pe+U4HiitEPi+0Y58vy6eQ07n Q6H9Ov6TzxD/w+/p51j+/emNm/rq1t/69SG2B/wVqjt0BvZ7xg5Tur/4/cDv0F+Fvuq/33w/TnS1f2MV 34jt/R390Txm56u26Mjf58b/+nrXdXheh+c0mN7B40 [file] B0OO1rniC6C486n002orsh4/xqyud/vtrZT1D6q963 /D/fPn6+sXgJjcS+/PDDV19+9+03f/P28euv/wtXH1i3/Hwt73MA4+Hokgod04l5bJ5q6/eLoF4z16q/ 5fuvf+ZHON+c4qsoG1tN754tthR6179/5h/evv/Nd58/uN739lmQG832gy8sk74/zVc/wGu24Oxc/+Fn Hz/9+sOX37+9hO636vaUR14p4y7Hn2+lxib6b8amr7 LrP0p2o0hUikgHDyqWc2mA64i/3dunX/3D51/9+i9cdr+H78t++iBkp661/Pbp+68/vr1u+/bVN3/38d FW9126Ux1+/fLz29+0rswCX1/N/RLj47yTX3701p/U1rKLv/n2u++++sWrqg/ffP7/w8BIeD0HnYgVJ1 ++xBQ882qy/ue/wIgjTakTdsNr213+ysavc28iTG3l +d3bhx8+oDB1z8c6/8KfbsXdO/ynP/7z7//8hx//6e2//uacY941/fWHT58+ryt8a96+/kCzrJ369Ify Cs616y//qdk//vXbn/15wq6q6+f+sR6SvR8b/fbh1//donwakv7I/qEpzb9fjZK5YxN5XcRxcvP+GmKr 5LP10s4D5C+nB9x/e/9rSri3aqxb+b8wjjn4K9h4Sj d2EdZhoc984Zlwn05/lZgnwLkv+PTjP//45z+7wL54e/fsn2dNb6q9fYlwe790lShHK/2npPyL+08p1/ fi5t/hyt4B2v9+Iei4kTDWnYEN575v/+HHP/2a5330+bf/9uO72l/f5UoDvARc9Fh+OAyO5bi3aJVU/u bT2+//+G8//vl///Zf/iU2M2Rqm5+9D3idP0f/2N9/ +u7tn/7Xq+2//7Ccg4g4e7W5RzDInGD2/eef//3n3/NF28mZ5j6//rG530HzDcTmdM7E7W9aP9xyNU4x 80eebMSCA5pW/hKjk176+e23/+fHf/2PU+d5bs1+9ncff/FmX3qVg/a9tPt///M//eUXjb2K8i8+/MNv /+AnK58u1P/+9n/97rf/+vvf/vEnNRxZT/n9H3/6/5 pP+1/+23/21uLIP5/60x+++YDGf8vf+ci1e664yXOBvz5kNkDo+Ocff/c//sx1460x04HkpK35wrUx/C Mu/dd/e425f/Kelvin//wm4+fPn/92jhavn2Ij2/rBeO7gq63dB//+27t7p0J//aO6IfTRnXU63h3i26G/3 oHf/kv24uj3+snH59w19234vIfS32jpWof1sH52c19 8pfffv/B31r4fUgdughS/f8R9I2U7njwnnSkeMCvTB3TKE6oa1ZrXrS8DCEyk6BfRNdcLTb6oSVeTLbi byJmt0WghbscL8Xjf0QgIfCkAXBcScHpCaw9QYNoMaA2tWQfFrNtNCMyK8GqEUAcOrW5SdNwUCPQYL3Z YXJlbnQgMiAwIFI+FvGnHD6jcsseGEXhs5PbCHycXR bgUSMjR2Z1xGhyGGFrG0LzzE84JYCtN5YajuY7OPP0SMPpGxSgPQCmaHCwGBFwMBN+KjSaDI6pxwiyWL Ggg6NiDYuxFBL2fJ5hLXoUIPMFUGtBWQewRuW5o61qgyPATZZiXHIpCX0GwyVfiRqeruRssHKwJBG8Dh XgAOR9RaMoZDNiCPCLZDSfYVItVQUmZNJrB8LniXwq VKeAAYIARLtMNHqwGaTgw6N8RKWhjrNDOHEKBVDXBvllXMhGUfNZPDWSRRV5JeX2ThafVU1TtWFvZVM3 FPaIHFHGWZtNKThzHsOsl1M2BRRcZ6WbKVNoiqVhGPZQMKitEmywNJ0onThtfhpoG4CgmECdXYUVSNPr MVGkMWOyYGGdT1Cdc3U8V3UeTOzZUFTJNHdXBJlnLf X3k23hziAQVMQbKBKhFH1+GV7vg5BkIr5VJPGwAV0ddxe8IJ2ObGTaOU0SCWlvmrNwB9tzunMjQaVjTX MBBP4dJ0PkcN46UQV+IoJyZM7yabz6qeAfEwTiYBOqUEOsBPLuRBpcOUEjKZIqFJVgNGJ9JHD4QSCbAe ZaDHCpUebxEOseSWYeVAOezyNYFTZoRPC4BydhJZSq PCLtVQHrQOipJLHwLLI8Ftc0TBZcVQSqCB1jMpRuBBIhLRSuKAZvQbB8ZyWvWaVOWLHqUEDoQCBmQgPm NBUjLWPwNLatXIEpCJGdPBp4RSUuXPQcOV6mJnBaDCZrWYVmCJVrXNIdNJZgumEKUITvYHQtZRE7YADs YFBiISDqEAasZYZyZUXiMDS8TPUvQWYvBH3wBdGmDT KhVBK3OtEvQCVmSCOunfTQNOPxPEDzMWL3XREdGPBuVKUdBFvfYDPpSCBeQhS8SQAtPRGeMZ8uWzFvYC JmPAC4JNPrAEKdTQKhveOHMLRnICUnJTp4YgLhKKMjJAHpYYzsKDMtTFSqHVxlWFGeOSGrVS6vCbQiOV ZuWVGwYHFpSMFmHDReftNKGKKvTGFhVPH6LeJvMTPx DPHfVHobNDFfBJPyKVF5WSHfIXLaER2eZaGyGYHfIsp7FImxPKNiAAFqefFHKUSbTACnWPPnBVTgIHXt KSZdJIyvNCCiVXSfNyX9FXXnOUMwTE5rKoBmXTStQJQ4JCRtECJnVWZddxSCPXHvRMSsTBMoXMA1DDDs MUUpVAi1myNktYCaImd4Nw4HjDmnSFY0Lm5VlfJbCS PuYYGOSz2Xv119EKYwSZYIOiu+QoqgwUCxrOgjIJKFKlzgSFHPXHAHH0Z= ID Date Data Source [id number] 11/14/2019 05:15:59 AM EDT [facility] Name Value Range Interpretation Code Description Data Marva rce(s) Supporting Document(s) Glucose [Mass/volume] in Capillary blood by Glucometer 120 mg/dL 70- 140 [facility] ID Date Data Source [id number] 11/14/2019 12:49:00 AM EDT [facility] Patient: RODAS, MIREILLE J Observa tion Report - [facility].VisitID: [id number] [place] [address] [phone], FRegistration Date/Time: 11/13/2019 18:44 Weight:58.5 kg. Height/Length:62 inches. BMI:23.6 FAMILY HISTORYNo significant family medical history. (Electronically signed by Nico Quesada M.D. 11/14/2019 00:44) Name Value Range Interpretation Code Description Data Mrava rce(s) Supporting Document(s) ID Date Data Source [id number] 11/14/2019 12:29:55 AM [facility] XR CHEST FRONTAL ONLY [id number] RESULTI nterpreted by:Joshua Valencia, [facility] INFORMATION: Exam: XR Chest, 1 View Exam date and time: 11/14/2019 12:22 AM Age: 74 years old Clinical indication: Other: Dizziness TECHNIQUE: Imaging protocol: XR of the chest Views: 1 view. COMPARISON: No relevant prior studies available. FINDINGS: Lungs: There is a pulmonary parenchymal calcification consistent with remote granulomatous organism exposure. Pleural space: Unremarkable. No pleural effusion. No pneumothorax. Heart/Mediastinum: Unremarkable. No cardiomegaly. Vasculature: There is calcification of the aortic arch. Bones/joints: The left humeral head is somewhat high riding which can indicate spasm or rotator cuff injury. IMPRESSION: 1. There is no focal air space disease. 2. No acute cardiopulmonary disease. THIS DOCUMENT HAS BEEN ELECTRONICALLY SIGNED BY JOSHUA VALENCIA MDThis document has been electronically signed by Joshua Valencia MD on 11/14/2019 12:29 AM Name Value Range Interpretation Code Description Data Marva rce(s) Supporting Document(s) ID Date Data Source [id number] 11/14/2019 12:19:43 AM [facility] Name Value Range Interpretation Code Description Data Marva rce(s) Supporting Document(s) Leukocytes [#/volume] in Blood by Automated count 10.5 10*3/uL 4-10 [facility] Erythrocytes [#/volume] in Blood by Automated count 3.72 10*6/uL 4.1- 5.3 L [facility] Hemoglobin [Mass/volume] in Blood 10.9 g/dL 11.5-15.5 L [facility] Hematocrit [Volume Fraction] of Blood by Automated count 32.7 % 3 6-45 L [facility] Erythrocyte mean corpuscular volume [Entitic volume] by Auto mated count 87.9 fL 80-96 [facility] Erythrocyte mean corpuscular hemoglobin [Entitic mass] by Automated count 29.4 pg 27-33 [facility] Erythrocyte mean corpuscular hemoglobin concentration [Mass/volume] by [facility] 33.4 g/[facility] width [Ratio] by Automated count 15.8 % 11.5-14.5 H [facility] Platelets [#/volume] in Blood by Automated count 248 10*3/uL 150-400 [facility] Differential cell count method - Blood [facility] Neutrophils/100 leukocytes in Blood by Automated count 76 % [facility] Lymphocytes/100 leukocytes in Blood by Automated count 16 % [facility] Monocytes/100 leukocytes in Blood by Automated count 7 % [facility] Eosinophils/100 leukocytes in Blood by Automated count 1 % [facility] Basophils/100 leukocytes in Blood by Automated count 0 % [facility] Neutrophils [#/volume] in Blood by Automated count 8.07 10*3/uL 1.8-7 .0 H [facility] Lymphocytes [#/volume] in Blood by Automated count 1.65 10*3/uL 1.2-4 .0 [facility] Monocytes [#/volume] in Blood by Automated count 0.71 10*3/uL 0-0.8 [facility] Eosinophils [#/volume] in Blood by Automated count 0.08 10*3/uL 0-0.5 [facility] Basophils [#/volume] in Blood by Automated count 0.04 10*3/uL 0-0.2 [facility] Nucleated erythrocytes/100 leukocytes [Ratio] in Blood by Automated count 0 /100{WBCs} 0-0 [facility] ID Date Data Source [id number] 11/14/2019 12:29:23 AM EDT [facility] Name Value Range Interpretation Code Description Data Marva rce(s) Supporting Document(s) Prothrombin time (PT) 14.1 s 12.5-14.9 [facility] INR in Platelet poor plasma by Coagulation assay 1.08 [facility] Routine intensity oral anticoagulation I NR is typically 2.0-3.0. Target INR must be clinically individualized. ID Date Data Source [id number] 11/14/2019 12:29:23 AM [facility] Value Range Interpretation Code Description Data Marva rce(s) Supporting Document(s) aPTT in Platelet poor plasma by Coagulation assay 22.5 s 24.0-33. 0 L [facility] ID Date Data Source [id number] 11/14/2019 01:00:37 AM [facility] Value Range Interpretation Code Description Data Marva rce(s) Supporting Document(s) Bicarbonate [Moles/volume] in Serum 23 mmol/L 22-29 [facility] Chloride [Moles/volume] in Serum or Plasma 99 mmol/L 98-107 [facility] Creatinine [Mass/volume] in Serum or Plasma 1.16 mg/dL 0.50-0.90 [facility] Glucose [Mass/volume] in Serum or Plasma 105 mg/dL 70-140 [facility] Potassium [Moles/volume] in Serum or Plasma 4.4 mmol/L 3.4-5.1 [facility] Hemolyzed Sodium [Moles/volume] in Serum or Plasma 135 mmol/L 136-145 L [facility] Urea nitrogen [Mass/volume] in Serum or Plasma 26 mg/dL 8-23 [facility] Anion gap 3 in Serum or Plasma 13 mmol/L 8-15 [facility] Osmolality of Serum or Plasma by calculation 285 mosm/kg 275-300 [facility] Creatinine/Urea nitrogen [Mass Ratio] in Serum or Plasma 22 [facility] Calcium [Mass/volume] in Serum or Plasma 10.1 mg/dL 8.8-10.2 [facility] Glomerular filtration rate/1.73 sq M pre dicted among non-blacks [Volume Rate/Area] in Serum or Plasma by Creatinine-based formula (MDRD) 46 mL/min/1.73m2 >60 L [facility] Glomerular filtration rate/1.73 sq M pre dicted among blacks [Volume Rate/Area] in Serum or Plasma by Creatinine-based formula (MDRD) 53 mL/min/1.73m2 >60 L [facility] ID Date Data Source [id number] 11/14/2019 01:00:37 AM EDT [facility] Name Value Range Interpretation Code Description Data Marva rce(s) Supporting Document(s) Troponin T.cardiac [Mass/volume] in Serum or Plasma <0.01 [facility] ID Date Data Source [id number] 11/14/2019 01:00:37 AM EDT [facility] Name Value Range Interpretation Code Description Data Marva rce(s) Supporting Document(s) Thyrotropin [Units/volume] in Serum or Plasma 3.600 u[IU]/mL 0.270-4. 200 [facility] ID Date Data Source [id number] 11/13/2019 08:27:00 PM EDT [facility] DATE OF EXAMINATION: 11/13/2019 19:28 EDT BRAIN W/O CONTRAST INDICATION: Trauma, pain COMPARISON: None. This CT exam was performed using the following dose reduction techniques:Automated exposure control, adjustment of mA and/or kV according to thepatient's size, and use of iterative reconstruction technique. TECHNIQUE: Axial images were obtained from the ngueyn magnum to the vertex. FINDINGS: The basal cisterns cortical sulci and ventricles are prominentconsistent with atrophic change. There is decreased attenuation of theperiventricular white matter, consistent with small vessel ischemic disease.T here is a subdural collection overlying the left frontal region as well as athin subdural collection in the left parietal region. There is no mass effect ormidline shift. The calvarium and extracranial soft tissues are unremarkable. Thevisualized paranasal sinuses are well aerated. IMPRESSION: Atrophic changes with periventricular leukomalacia. Left-sided subduralhematoma. Results were discussed with Dr Quesada at 2018 on 11/13/2019. Care was taken tomake sure the communication was clear and understood. CERVICAL SPINE CT SCAN WITHOUT CONTRAST DATE OF EXAMINATION: 11/13/2019 19:28 EDT BRAIN W/O CONTRAST INDICATION: Trauma, pain COMPARISON: None TECHNIQUE: Axial images were obtained from the skull base through the thoracicinlet. Sagittal and coronal reconstructions were made. Intravenous contrast wasnot utilized for this examination. One or more of the following dose reduction techniques were utilized ineffectively lowering the radiation dose for this examination: Automated ExposureControl, Adjustment of the mA and/or kV according to patient size, or Iterativereconstruction. FINDINGS: There is no fracture identified. No evidence for subluxation ofvertebral bodies or their articulating facets. There is degenerative change withosteophytes at C5 and C6. IMPRESSION: Degenerative change, no acute injury CT SCAN OF THE FACIAL BONES WITHOUT CONTRAST DATE OF EXAMINATION: 11/13/2019 19:28 EDT BRAIN W/O CONTRAST INDICATION: trauma, pain COMPARISON: None TECHNIQUE: Coronal, sagittal, and axial collimated images obtained from themandible through the frontal sinus. Intravenous contrast was not utilized forthis examination. FINDINGS: There is left periorbital soft tissue swelling. There is near completeopacification of the right maxillary sinus with an air- fluid level. The orbitalrims, pterygoid plates, lamina papyracea, and mandible are intact.. IMPRESSION: Left periorbital soft tissue swelling. No visualized fractures. Electronically signed in [id number] by: Ivan Pelletier M.D. 11/13/2019 20:21 EDT Name Value Range Interpretation Code Description Data Marva rce(s) Supporting Document(s) ID Date Data Source [id number] 11/13/2019 08:50:00 PM EDT [facility] l TSYSORDER [id number] Name Value Range Interpretation Code Description Data Marva rce(s) Supporting Document(s) Adenovirus Not Detected Detected Not [facility] Coronavirus 229E Not Detected Detected Not [facility] Coronavirus HKU1 Not Detected Detected Not [facility] Coronavirus NL63 Not Detected Detected Not [facility] Coronavirus OC43 Not Detected Detected Not [facility] Sars Cov 2 Not Detected Detected Not [facility] Metapneumovirus Not Detected Detected Not [facility] Human Rhinovirus Not Detected Detected Not [facility] Influenza A Not Detected Detected [facility] Influenza B Not Detected Detected Not [facility] Parainfluenza Virus 1 Not Detected Detected [facility] Parainfluenza Virus 2 Not Detected Detected Not [facility] Parainfluenza Virus 3 Not Detected Detected Not [facility] Parainfluenza Virus 4 Not Detected Detected Not [facility] Respiratory Syncytial Virus Not Detected Detected Not [facility] Bordetella parapertus ([id number]) Not Detected Detected Not [facility] Bordetella pertussis (ptxP) Not Detected Detected Not [facility] Chlamydia pneumoniae Not Detected Detected Not [facility] Mycoplasma pneumoniae Not Detected Detected Not [facility] The Above results have been determined b y using the [employer] system.[employer] is an automated in vitro diagnostic system thatutilizes nested multiplex Polymerase Chain Reaction (PCR)and high-resolution melting analysis to detect and identifymultiple nucleic acid targets from clinical specimens. ID Date Data Source [id number] 11/13/2019 08:16:00 PM EDT [facility] l TSYSORDER [id number] Name Value Range Interpretation Code Description Data Marva rce(s) Supporting Document(s) LACTIC ACID 2.1 mmol/L 0.4-2.0 H [facility] ID Date Data Source [id number] 11/13/2019 08:15:00 PM EDT [facility] l TSYSORDER [id number] Name Value Range Interpretation Code Description Data Marva rce(s) Supporting Document(s) TROPONIN I < 0.017 ng/mL 0.0-0.056 [facility] ID Date Data Source [id number] 11/13/2019 08:11:00 PM [facility] l TSYSORDER [id number] Name Value Range Interpretation Code Description Data Marva rce(s) Supporting Document(s) MAGNESIUM 1.6 mg/dL 1.8-2.4 [facility] ID Date Data Source [id number] 11/13/2019 08:11:00 PM [facility] l TSYSORDER [id number] Name Value Range Interpretation Code Description Data Marva rce(s) Supporting Document(s) GLUCOSE 119 mg/dL 74-106 H [facility] BLOOD UREA NITROGEN 32 mg/dL 7-18 H [facility] ital CREATININE 1.4 mg/dL 0.6-1.0 H [facility] SODIUM 135 mmol/L 136-145 L [facility] POTASSIUM 4.4 mmol/L 3.5-5.1 [facility] CHLORIDE 99 mmol/L 98-107 [facility] CO2 28 mmol/L 21-32 [facility] CALCIUM 9.4 mg/dL 8.5-10.1 [facility] ANION GAP 8.0 mmol/L 5-12 [facility] GLOMERULAR FILTRATION RATE 37 mL/min [facility] GFR IS CALCULATED IN mL/min/1.73m2 MALINDA L FUNCTION: >90MILDLY DECREASED: 60-89MILDY TO MODERATELY DECREASED: 45-59 MODERATELY TO SEVERELY DECREASED: 30-44SEVERELY DECREASED: 15-29RENAL FAILURE: <15 AST 34 U/L 15-37 [facility] ALT 34 U/L 12-78 [facility] ALKALINE PHOSPHATASE 49 U/L 46-116 [facility] TOTAL BILIRUBIN 0.7 mg/dL 0.2-1.0 [facility] TOTAL PROTEIN 7.3 g/dl 6.4-8.2 [facility] ALBUMIN 4.1 gm/dL 3.4-5.0 [facility] ID Date Data Source [id number] 11/13/2019 08:09:00 PM EDT [facility] l TSYSORDER [id number] Name Value Range Interpretation Code Description Data Marva rce(s) Supporting Document(s) PROTHROMBIN TIME (PATIENT) 11.0 SECONDS 9.2-11.6 [facility] INR 1.06 0.87-1.06 [facility] ID Date Data Source [id number] 11/13/2019 07:50:00 PM EDT [facility] l TSYSORDER [id number] Name Value Range Interpretation Code Description Data Marva rce(s) Supporting Document(s) WHITE BLOOD COUNT 7.3 K/mm3 4.0-10.0 [facility] 3.36 M/mm3 4.00-5.50 L [facility] l HEMOGLOBIN 9.7 gm/dL 12.0-16.0 L [facility] HEMATOCRIT 29.5 % 36.0-48.8 L [facility] MEAN CELL VOLUME 87.8 fl 80-96 [facility] MEAN CORPUSCULAR HEMOGLOBIN 28.9 pg 27.0-31.0 [facility] MEAN CORPUSCULAR HGB CONC 32.9 g/dl 32.0-36.0 [facility] RED CELL DISTRIBUTION WIDTH 15.1 % 10.0-14.5 H [facility] PLATELET COUNT 233 K/mm3 172-450 [facility] MEAN PLATELET VOLUME 10.3 fl 9.0-13.0 [facility] pital GRAN % 78.8 % 50-80.0 [facility] IG% 0.5 % 0.0-0.2 H [facility] LYMPH % 12.2 % 25.0-50.0 L [facility] MONO % 7.7 % 2.0-10.0 [facility] EOS % 0.7 % 0-5.0 [facility] BASO % 0.1 % 0.0-2.0 [facility] GRAN # 5.8 K/mm3 2.0-8.00 [facility] IG# 0.0 K/mm3 0.0-0.2 [facility] LYMPH # 0.9 K/mm3 1.0-5.0 L [facility] MONO # 0.6 K/mm3 0.10-1.20 [facility] EOS # 0.1 K/mm3 0.0-0.5 [facility] BASO # 0.0 K/mm3 0.0-0.2 [facility] ID Date Data Source [id number] 11/13/2019 12:00:00 AM EDT [facility] l Name Value Range Interpretation Code Description Data Marva rce(s) Supporting Document(s) 2019 Novel Coronavirus RNA [facility] This lab was ordered by [facility] L aboratory and reported by [facility]. ID Date Data Source [id number] 10/15/2019 01:03:55 PM EDT [facility] NT INFORMATIONPatient MRN Name Date of Age Gend*PT [id number] Mireille Rodas 1945 74 years F IPPT Location Admission Date/Time Visit ID Attending [id number] 10/12/19 0003 --- --- EPI ID CSN Admitting Provider [id number] Sherrill Martini MD([id number]) Attestation signed by Raymond Casiano MD at 10/15/2019 1:03 PMSignature: JOVI Fajardoate: October 15, 2019Time: 1:03 PM Cardiology Discharge SummaryPatient: Mireille RodasDOB: 1945MRN: [id number] date: 10/12/2019Length of Stay:2Attending Physician: Sherrill Martini MDAdmission Diagnosis: NSTEMI (non-ST elevated myocardial infarction)Secondary Diagnoses: Principal Problem: NSTEMI (non-ST elevated myocardial infarction)Active Problems: Diabetic neuropathy Type 2 diabetes mellitus Hypertension Hypercholesterolemia Elevated troponin Coronary artery disease Encounter to discuss test results Encounter for examination of surgical sitePrinciple Procedures:Cardiac Catheterization 10/13/2019:1. Critical multilevel in-stent restenosis in the proximal mid and distal rightcoronary artery and critical stenosis in the ostium of the posterolateral branchstatus post complex intervention with 5 drug- eluting stents for Xience stentsinside the previously deployed stents in the right and a resolute stent in theposterolateral branch of the right.2. Severe in-stent restenosis in the mid LAD status post successfuldrug-eluting stent placement.3. Low normal systolic function.4. Profound EKG changes during the procedure with transient ST elevation in theinferior leads followed by deep ST depressions in the mid and late procedure aswell as transient borderline ST elevation in the V lead.5. Starclose to the right femoral arterial site. The patient will be continued with dual antiplatelet therapy. Diuretics and ACEinhibitors will be on hold because of the hypotension during the procedure.Kidney function will be rechecked in the morning because of the high volume ofcontrast used. Continue with strict risk factor modification because of therapid progression of the disease which is diffusely seen in the small distalvessels. No complications, estimated blood loss minimal.Indication for Admission: 75-year-old woman with prior myocardial infarctionstatus post drug-eluting stent to the right and LAD presenting now with non-Qwave myocardial infarction.Hospital [facility] & Complications: [facility]. Patient was seen and evaluated by Dr. Casiano anddecision was made to undergo cardiac catheterization. See detailed results above. Patient tolerated the procedure well. There was some postoperativebleeding from patient's right femoral access site. The bleeding stopped bymorning 10/14/19 after sandbag was applied overnight. Return precautionsdiscussed at length with patient and daughter on the phone. Patient wasmonitored on telemetry and remained hemodynamically stable. Case was discussedwith Dr. Casiano who felt the patient was stable for discharge to home today.All discharge instructions, limitations and medications were reviewed. Allquestions answered. Patient will follow up with Dr. Rodriguez in 2 weeks. Jose also follow up with their PCP in 1-2 weeks.Past Medical History:Past Medical History:Diagnosis Date Abnormal EKG [address] bell, baseline EKG is sinus rhythm, frequent PACs, poor Rwave progression, nonspecific ST-T wave abnormality, repolarizationabnormalities. Anxiety Cellulitis of left toe Coronary artery disease Diabetic neuropathy GERD (gastroesophageal reflux disease) Hypercholesterolemia Hypertension Onychomycosis Paronychia of great toe of left foot 04/22/2019 Peripheral artery disease Type 2 diabetes mellitus Wound healing, delayedMost Recent Labs:BMP:Lab ResultsComponent Value Date NA 139 10/14/2019 K 4.3 10/14/2019 CL 106 10/14/2019 CO2 23 10/14/2019 ANIONGAP 10 10/14/2019 CALCIUM 8.2 (L) 10/14/2019 GLU 92 10/14/2019 BUN 22 10/14/2019 CREATININE 1.08 (H) 10/14/2019 GFRAA >60 10/14/2019 GFRNONAA 50 (L) 10/14/2019CBC Brief:Lab ResultsComponent Value Date WBC 6.3 10/14/2019 HGB 9.3 (L) 10/14/2019 HCT 28.0 (L) 10/14/2019 PLT 182 10/14/2019Medications:Your medication listCHANGE how you take these medications Instructions Last Dose Given Morning Afternoon Evening Bedtime As Neededacetaminophen 325 MG tabletCommonly known as: TYLENOLWhat changed: reasons to take this Take 2 tablets (650 mg total) by mouth every 4 (four) hours as neededCONTINUE taking these medications Instructions Last Dose Given Morning Afternoon Evening Bedtime As Neededaspirin EC 81 MG EC tablet Take 81 mg by mouth dailyatorvastatin 80 MG tabletCommonly known as: LIPITOR Take 80 mg by mouth dailyBIOFREEZE EX Apply 1 application topically daily as needed (pain)carvedilol 25 MG tabletCommonly known as: COREG Take 12.5 mg by mouth 2 (two) times a dayclopidogrel 75 MG tabletCommonly known as: PLAVIX Take 75 mg by mouth dailyDULoxetine 60 MG capsuleCommonly known as: CYMBALTA Take 60 mg by mouth dailygabapentin 800 MG tabletCommonly known as: NEURONTIN Take 800 mg by mouth nightlyinsulin detemir 100 UNIT/ML injectionCommonly known as: LEVEMIR Inject 30 Units under the skin nightlyisosorbide mononitrate 30 MG 24 hr tabletCommonly known as: IMDUR Take 1 tablet (30 mg total) by mouth dailymetFORMIN 1000 MG tabletCommonly known as: GLUCOPHAGEStart taking on: October 15, 2019 Take 1 tablet (1,000 mg total) by mouth daily with breakfastmetFORMIN 1000 MG tabletCommonly known as: GLUCOPHAGEStart taking on: October 15, 2019 Take 1.5 tablets (1,500 mg total) by mouth every eveningnitroglycerin 0.4 MG SL tabletCommonly known as: NITROSTAT Place 1 tablet (0.4 mg total) under the tongue every 5 (five) minutes as neededfor chest painpantoprazole 40 MG tabletCommonly known as: PROTONIX Take 40 mg by mouth dailyranolazine 500 MG 12 hr tabletCommonly known as: RANEXA Take 1 tablet (500 mg total) by mouth 2 (two) times a dayVICTOZA 18 MG/3ML SopnGeneric drug: Liraglutide Inject 1.8 mg under the skin dailySTOP taking these medicationsALDACTONE 25 MG tabletGeneric drug: spironolactonetrandolapril 1 MG tabletCommonly known as: MAVIKWhere to Get Your MedicationsInformation about where to get these medications is not yet availableAsk your nurse or doctor about these medications metFORMIN 1000 MG tablet metFORMIN 1000 MG tabletDischarge Exam:Vitals: Temp: [97.6 F-98.5 F] 98 FHeart Rate: [72-87] 79Resp: [16-18] 16BP: (94-150)/(53-69) 112/58Pleasant, comfortable, not in acute distress.Awake, alert, oriented times 3.Moves all extremities.General appearance: alert, appears stated age and cooperativeNeck: no carotid bruit and no JVDLungs: Clear to auscultation bilaterally.Heart: regular rate and rhythm, S1, S2 normal, + soft murmur. No click, rub orgallopAbdomen: Soft, nontender, bowel sounds present.Extremities: No edema.Pulses: 2+ and symmetricSkin: No rash or lumps.Wound: right femoral access site clean and dry, no bleeding, no hematoma.Discharged Condition:goodDisposition: Home or Self CareFollow Up:1. PCP 1-[address] Rodriguez October 28Signature: Italo Covington PA-C -- CardiologyDate: October 14, 2019Time: 9:49 AMThis document or parts of this document, were dictated using TrineantPricing Engine. A reasonable attempt at proofreading has been made to minimize errors.Please call with any questions or corrections. Name Value Range Interpretation Code Description Data Marva rce(s) Supporting Document(s) ID Date Data Source [id number] 10/14/2019 03:17:13 PM EDT [facility] CenterPATIE NT INFORMATIONPatient MRN Name Date of Age Gend*PT [id number] Mireille Rodas 1945 74 years F IPPT Location Admission Date/Time Visit ID Attending [id number] 10/12/19 0003 --- --- EPI ID CSN Admitting Provider [id number] Sherrill Martini MD([id number])DISCHARGE SUMMARYAdmission Date: 10/12/2019Discharge date: 10/14/19PRINCIPAL DIAGNOSIS: Non-ST elevation myocardial infarction.CURRENT [id number]-mzbp-cyt woman with coronary artery disease status post myocardial infarctionand drug-eluting stent to the right and mid LAD in April of this year whopresents with non-ST elevation myocardial infarction. She had lightheadednessand jaw pain.HOSPITAL COURSECoronary angiography on admission showed critical in-stent restenosis in theright and diffuse distal disease in the vessel as well as severe in-stentrestenosis in the LAD. She had a difficult intervention with revascularizationof both vessels. Her systolic function was preserved. After the procedure shehad slight oozing from the right groin site. Her CK level remained normal. Shehad no chest pain since last night and no ventricular arrhythmia. She will bedischarged to follow with Dr. Gibbs and continue dual antiplatelet therapy forat least a year. Her blood pressure was low and therefore we held her Aldactoneand ACOSTA inhibitors.TODAY'S PHYSICAL E XAM:BP 100/51 (Patient Position: Lying) | Pulse 75 | Temp 98.6 F (Oral) | Resp18 | Ht 1.575 m (5' 2") | Wt 61.2 kg (135 lb) | LMP (LMP Unknown) | [id number]% | No | BMI 24.69 kg/m Alert and oriented. Slight right carotid bruit. Lungs are clear toauscultation. Heart sounds are normal S1 and S2. There is mild groinecchymosis on the right.SIGNIFICANT DIAGNOSTIC DATA:Results from last 7 daysLab Units WBC 10*3/uL 6.3HEMOGLOBIN g/dL 9.3*HEMATOCRIT % 28.0*PLATELETS 10*3/uL 182Results from last 7 daysLab Units SODIUM mmol/L 139POTASSIUM mmol/L 4.3CHLORIDE mmol/L 106CO2 mmol/L 23BUN mg/dL 22CREATININE mg/dL 1.08*GLUCOSE mg/dL 92CALCIUM mg/dL 8.2*Results from last 7 daysLab Units 10/12/2022CK TOTAL U/L 112 76Results from last 7 daysLab Units 10/11/201346 10/11/2002TROPONIN I ng/mL 2.03* 1.95* -- -- 2.58*POC TROPONIN I. ng/mL -- -- 1.28* 1.31* --DISCHARGE MEDICATION LIST Mireille Rodas Medication Instructions LUIGI:[id number] Printed on:10/14/19 1514Medication Informationacetaminophen (TYLENOL) 325 MG tabletTake 2 tablets (650 mg total) by mouth every 4 (four) hours as neededaspirin EC 81 MG EC tabletTake 81 mg by mouth dailyatorvastatin (LIPITOR) 80 MG tabletTake 80 mg by mouth dailycarvedilol (COREG) 25 MG tabletTake 12.5 mg by mouth 2 (two) times a dayclopidogrel (PLAVIX) 75 MG tabletTake 75 mg by mouth dailyDULoxetine (CYMBALTA) 60 MG capsuleTake 60 mg by mouth dailygabapentin (NEURONTIN) 800 MG tabletTake 800 mg by mouth nightlyinsulin detemir (LEVEMIR) 100 UNIT/ML injectionInject 30 Units under the skin nightlyLiraglutide (VICTOZA) 18 MG/3ML SOPNInject 1.8 mg under the skin dailyMenthol, Topical Analgesic, (BIOFREEZE EX)Apply 1 application topically daily as needed (pain)metFORMIN (GLUCOPHAGE) 1000 MG tabletTake 1 tablet (1,000 mg total) by mouth daily with breakfastmetFORMIN (GLUCOPHAGE) 1000 MG tabletTake 1.5 tablets (1,500 mg total) by mouth every eveningnitroglycerin (NITROSTAT) 0.4 MG SL tabletPlace 1 tablet (0.4 mg total) under the tongue every 5 (five) minutes as neededfor chest painpantoprazole (PROTONIX) 40 MG tabletTake 40 mg by mouth dailyranolazine (RANEXA) 500 MG 12 hr tabletTake 1 tablet (500 mg total) by mouth 2 (two) times a daySignature: Raymond Casiano, MDDate: October 14, 2019Time: 3:14 [facility]: Dr. Strong document or parts of this document, were dictated using UmengeaTwigmore software. A reasonable attempt at proofreading has been made tominimize errors. Please call with any questions or corrections. Name Value Range Interpretation Code Description Data Marva rce(s) Supporting Document(s) ID Date Data Source [id number] 10/14/2019 02:42:00 PM EDT [facility] Name Value Range Interpretation Code Description Data Marva rce(s) Supporting Document(s) Laboratory test finding (navigational concept) 120 mg/dL 70-99 [facility] ([facility]) PERFORMED BY [facility] ID Date Data Source [id number] 10/14/2019 12:50:00 PM EDT [facility] ([facility] Name Value Range Interpretation Code Description Data Marva rce(s) Supporting Document(s) Creatine kinase.MB [Mass/volume] in Serum or Plasma 5.1 {index_val} 0 .0-4.0 [facility] ([facility]) CKMB 5.7 ng/mL 0.0-5.0 [facility] ([facility]) ID Date Data Source [id number] 10/14/2019 12:34:00 PM EDT [facility] ([facility]) Name Value Range Interpretation Code Description Data Marva rce(s) Supporting Document(s) Creatine kinase [Enzymatic activity/volume] in Serum or Plasma 112 U/L 26-192 [facility] ([facility]) ID Date Data Source [id number] 10/14/2019 12:34:00 PM EDT [facility] ([facility]) Name Value Range Interpretation Code Description Data Marva rce(s) Supporting Document(s) Sodium [Moles/volume] in Serum or Plasma 139 mmol/L 136-145 [facility] ([facility]) Chloride [Moles/volume] in Serum or Plasma 106 mmol/L 100-108 [facility] ([facility]) Carbon dioxide, total [Moles/volume] in Serum or Plasma 23 mmol/L 22 -31 [facility] ([facility]) Potassium [Moles/volume] in Serum or Plasma 4.3 mmol/L 3.6-5.2 [facility] ([facility]) Anion gap in Serum or Plasma 10 mmol/L 7-16 [facility] ([facility]) Urea nitrogen [Mass/volume] in Serum or Plasma 22 mg/dL 7-24 [facility] ([facility]) Creatinine [Mass/volume] in Serum or Plasma 1.08 mg/dL 0.60-1.00 [facility] ([facility]) Glomerular filtration rate/1.73 sq M pre dicted among non-blacks [Volume Rate/Area] in Serum or Plasma by Creatinine-based formula (MDRD) 50 [facility] ([facility]) Calcium [Mass/volume] in Serum or Plasma 8.2 mg/dL 8.4-10.2 [facility] ([facility]) Urea nitrogen/Creatinine [Mass Ratio] in Serum or Plasma 20.4 1 0.0-20.0 [facility] ([facility]) Glucose [Mass/volume] in Serum or Plasma 92 mg/dL 70-99 [facility]) Glomerular filtration rate/1.73 sq M pre dicted among blacks [Volume Rate/Area] in Serum or Plasma by Creatinine-based formula (MDRD) Laboratory test result [facility] ([facility]) Glomerular filtration rate/1.73 sq M pre dicted among non-blacks [Volume Rate/Area] in Serum or Plasma by Creatinine-based formula (MDRD) Laboratory test result [facility] ([facility]) -- NORMAL KIDNEY FUNCTION OR MILD DISEASE - GFR >OR= 60 CHRONIC KIDNEY DISEASE - GFR 15 - 59 RENAL FAILURE - GFR <15 Est. GFR calculation based on the MDRD study equation, which assumes a steady state for creatinine. Est. GFR should not be used for medication dosing. ID Date Data Source [id number] 10/14/2019 12:06:00 PM EDT [facility] ([facility]) Name Value Range Interpretation Code Description Data Marva rce(s) Supporting Document(s) Leukocytes [#/volume] in Blood by Automated count 6.3 10*3/uL 4.1-11. 0 [facility] ([facility]) Erythrocytes [#/volume] in Blood by Automated count 3.32 10*6/uL 4.00 -5.40 [facility] ([facility]) Hematocrit [Volume Fraction] of Blood by Automated count 28.0 % 3 6.0-47.0 [facility] ([facility]) Hemoglobin [Mass/volume] in Blood 9.3 g/dL 12.0-16.0 [facility] ([facility]) Erythrocyte mean corpuscular volume [Entitic volume] by Auto mated count 84.3 fL 80.0-95.0 [facility] ([facility]) Erythrocyte distribution width [Ratio] by Automated count 15.7 % 10.5-14.5 [facility] ([facility]) Platelets [#/volume] in Blood by Automated count 182 10*3/uL 150-450 [facility] ([facility]) Erythrocyte mean corpuscular hemoglobin [Entitic mass] by Automated count 27.9 pg 27.0-32.0 [facility] ([facility]) Erythrocyte mean corpuscular hemoglobin concentration [Mass/volume] by Automated count 33.1 g/dL 32.0-36.0 [facility] ([facility]) Platelet mean volume [Entitic volume] in Blood by Marta 8.8 fL 7.1-10.7 [facility] ([facility]) ID Date Data Source [id number] 10/14/2019 10:43:06 AM EDT [facility] Name Value Range Interpretation Code Description Data Marva rce(s) Supporting Document(s) POC NOVA GLU 120 mg/dL (70-99) H [facility] PERFORMED BY [facility] ID Date Data Source [id number] 10/14/2019 08:51:17 AM EDT [facility] Name Value Range Interpretation Code Description Data Marva rce(s) Supporting Document(s) CKMB 5.7 ng/mL (0.0-5.0) H [facility] CKMB RELATIVE INDEX 5.1 {index_val} (0.0-4.0) H [facility] ID Date Data Source [id number] 10/14/2019 08:34:50 AM EDT [facility] Name Value Range Interpretation Code Description Data Marva rce(s) Supporting Document(s) SODIUM 139 mmol/L (136-145) [facility] POTASSIUM 4.3 mmol/L (3.6-5.2) [facility] CHLORIDE 106 mmol/L (100-108) [facility] CO2 23 mmol/L (22-31) [facility] ANION GAP 10 mmol/L (7-16) [facility] UREA NITROGEN 22 mg/dL (7-24) [facility] CREATININE 1.08 mg/dL (0.60-1.00) H [facility] BUN/CREAT RATIO 20.4 RATIO (10.0-20.0) H [facility] GLUCOSE 92 mg/dL (70-99) [facility] CALCIUM 8.2 mg/dL (8.4-10.2) L [facility] GFR 50 ml/min/1.73m2 (>59) L [facility] GFR ( AMER) >60 ml/min/1.73m2 (>59) [facility] GFR INTERPRETATION [facility] --NORMAL KIDNEY FUNCTION OR MILD DISEASE - GFR >OR= 60CHRONIC KIDNEY DISEASE - GFR 15 - 59RENAL FAILURE - GFR <15 Est. GFR calculation based on the MDRDstudy equation, which assumes a steadystate for creatinine. Est. GFR should notbe used for medication dosing. ID Date Data Source [id number] 10/14/2019 08:34:50 AM EDT [facility] Name Value Range Interpretation Code Description Data Marva rce(s) Supporting Document(s) CK 112 U/L (26-192) [facility] ID Date Data Source [id number] 10/14/2019 08:07:34 AM EDT [facility] Name Value Range Interpretation Code Description Data Marva rce(s) Supporting Document(s) WBC 6.3 10*3/uL (4.1-11.0) [facility] RBC 3.32 10*6/uL (4.00-5.40) L [facility] HGB 9.3 g/dL (12.0-16.0) L [facility] HCT 28.0 % (36.0-47.0) L [facility] MCV 84.3 fL (80.0-95.0) [facility] MCH 27.9 pg (27.0-32.0) [facility] MCHC 33.1 g/dL (32.0-36.0) [facility] RDW 15.7 % (10.5-14.5) H [facility] PLT 182 10*3/uL (150-450) [facility] MPV 8.8 fL (7.1-10.7) [facility] ID Date Data Source [id number] 10/14/2019 05:58:30 AM EDT [facility] Name Value Range Interpretation Code Description Data Marva rce(s) Supporting Document(s) EKG [facility] PZPJEa4uAhCNTdCbp1BoNjFoPXTbWI1hsrh5I7D2tJEdN3KsrNCdq7hkZ0MrF2GpTEYwFOOGXI7WhJMi jb2 [file] GBVJZQgZNUqwNyGoz5B5FJOzlwYQNCIIZGXDGwynFX dQHrXWXZANTYTfOQC2Lbh0IHuvT4B1JiwlV3GqTZ6VQ0JtONPzGWCKWRFqahFbGZ0BqpGuaE3dSFhLKT ZYNXnNOIetWkV7n87pstIVNOQiPCKiPNsrHPRbRJSpCYKqRYVqNWRtRAZhGFBuHB8HU3BoNQPfVTSYVP Q8q5OuJRMukpmemrszBk7rvwPeUby+MmokAJNiw7Sm MOlbA3C1qKXyJ6ZkB5VyTQ9PfCAnCChlDATgVXVtBCEmG214yfVxJV2+SZ4wq0XyJqfdJLCIDMTkZNXm XUSfCZM8ZjThDDZbWIHpEHCwVwP3RrXqBfNIAWZjDAV8BRu5VBKyWKJlKGDrGPitKCJbNYB6FtP2PVBq HSPdWT9nNrMiTRKkJVq3LZDpNDGaKTRyuaXDJIYzJV SfWHUoEEY4GMNnEJLnAYipRWBiWLPpWHK8JUYnBAMlAP7sIyTbRXQnEBJsBuogXFDsYYPmgeVJVAGyNK BwAUV7CvJcUCYgWKPvJNciITRoOJNiAyo3GOIhMCFaII0aSqAsGCMaEGW8FNzwEKNeEWRsilTVJUUsQF AwMDUyMyAwMDAwMCBuIAowMDAwMDAwNjQxIDAwMDAw QQ0zFwJwLWBsGND5DEJrPGZtWZPrzoYUQKAvIPOsQYg0KEBgTRJsZTZzBJqtXCUqJCVlYPO6CLTbPUVr ZJ4wAlJvYSIkJJJbRLZiZTIuLCSqakPFESIoYODsZWF2EMViKORyCEYnSZeqIKGcIOOdFjc7FJTlUBIx QK7hQdSyWEVwOTN2XMDtFCFfPAUhmcLVMEKaJOF9YM W4YdRzDFZxHKFxUXakAFLjPTQsFqV0RRLzTFDjUN0hIvAoTVBuZEB9QbOpUMRxPOBwexFRPDIqOXKqLG Q1MhFgKRZrFAUoUUfrCSCaCDRtSOQqZSV1MJS9KWAeQhIdDZhmDMWDZOnVS0FislZsMiAKN0qcJi4mJl MdFDZCF4Drl2FoXTLgZPQULa5+BzK1XMB6dUBrKyz2XLU9IFwtQGGBSx== ID Date Data Source [id number] 10/14/2019 12:36:50 AM EDT [facility] Name Value Range Interpretation Code Description Data Marva rce(s) Supporting Document(s) CKMB 2.3 ng/mL (0.0-5.0) [facility] CKMB RELATIVE INDEX 3.0 {index_val} (0.0-4.0) [facility] ID Date Data Source [id number] 10/14/2019 12:20:31 AM EDT [facility] Name Value Range Interpretation Code Description Data Marva rce(s) Supporting Document(s) CK 76 U/L (26-192) [facility] ID Date Data Source [id number] 10/13/2019 07:46:12 PM EDT [facility] Name Value Range Interpretation Code Description Data Marva rce(s) Supporting Document(s) POC NOVA GLU 86 mg/dL (70-99) [facility] ID Date Data Source [id number] 10/13/2019 06:10:24 PM EDT [facility] Name Value Range Interpretation Code Description Data Marva rce(s) Supporting Document(s) &PDF [facility] SUYCVn4cHyGSKbAw27/GEBiaLCQhn6DqSXlkRRc8MDdoFPXrK1JhnRbqDNFPEtmNB85NAGZRILnJBuIW yZW [file] Jean-Claude+Ou+wejaWmMSuXv+iQ7lKa6eEU8EVFEyW2SHA9HX62Vuo0GyscFFYgVL00Q+KQcqCPbBg4YdMBv+L [file] oIa8BbbpG13f3mR3Dy7/jewel inspector+sMCdlI01sLtT7rmZqHF [file] 1tzy5TyFzrIKE/S1S1tRsU6TSLJXCrnyx509Ob/nYt6EDxEbSZwFlNoPMYJChJekqzkPGTkGbq5f7+VALENTÍN [file] ICAgICAgICAgICAgICAgICAgICAgICAgICAgICAgIC AgICAgICAgICAgICAgICAgICAgICAgICAgICAgICAgICAgICAgICAgICAgICAgICAgICAgICAgICAgIC AgICAgICANCiAgICAgICAgICAgICAgICAgICAgICAgICAgICAgICAgICAgICAgICAgICAgICAgICAgIC AgICAgICAgICAgICAgICAgICAgICAgICAgICAgICAg ICAgICAgICAgICAgICAgICANCiAgICAgICAgICAgICAgICAgICAgICAgICAgICAgICAgICAgICAgICAg ICAgICAgICAgICAgICAgICAgICAgICAgICAgICAgICAgICAgICAgICAgICAgICAgICAgICAgICAgICAN CiAgICAgICAgICAgICAgICAgICAgICAgICAgICAgIC AgICAgICAgICAgICAgICAgICAgICAgICAgICAgICAgICAgICAgICAgICAgICAgICAgICAgICAgICAgIC AgICAgICAgICANCiAgICAgICAgICAgICAgICAgICAgICAgICAgICAgICAgICAgICAgICAgICAgICAgIC AgICAgICAgICAgICAgICAgICAgICAgICAgICAgICAg ICAgICAgICAgICAgICAgICAgICANCiAgICAgICAgICAgICAgICAgICAgICAgICAgICAgICAgICAgICAg ICAgICAgICAgICAgICAgICAgICAgICAgICAgICAgICAgICAgICAgICAgICAgICAgICAgICAgICAgICAg ICANCiAgICAgICAgICAgICAgICAgICAgICAgICAgIC AgICAgICAgICAgICAgICAgICAgICAgICAgICAgICAgICAgICAgICAgICAgICAgICAgICAgICAgICAgIC AgICAgICAgICAgICANCiAgICAgICAgICAgICAgICAgICAgICAgICAgICAgICAgICAgICAgICAgICAgIC AgICAgICAgICAgICAgICAgICAgICAgICAgICAgICAg ICAgICAgICAgICAgICAgICAgICAgICANCiAgICAgICAgICAgICAgICAgICAgICAgICAgICAgICAgICAg ICAgICAgICAgICAgICAgICAgICAgICAgICAgICAgICAgICAgICAgICAgICAgICAgICAgICAgICAgICAg ICAgICANCiAgICAgICAgICAgICAgICAgICAgICAgIC AgICAgICAgICAgICAgICAgICAgICAgICAgICAgICAgICAgICAgICAgICAgICAgICAgICAgICAgICAgIC AgICAgICAgICAgICAgICANCjw/vPWzD3uzwQMofiN9Z8szYm8SCm1GUK1rs4PtQANeKNfcmuXqKjhPWl NcUCCdDrrDEoh1NVgdLL8IhTMgF9MwY4BhEYadGH8H HOAjADGlzVHoXJMfWJDsLbS0ZFXmLQkpTM2DcGUxQHdzHXVhNCYhWmUrXAJbRIRgTMMjYQFdLDNPJOYq PROjBjCpLUQbYRPrFVqlTLUCOIB8ZBKtYvPiPAJfVXRrVdTgPVPKHRF7NBEkRzLgMvUoQSZaWH3CNRKh G839emWeKFHYBp4+PVcseaVqXyyUUrH3JMPcy7DyQT v3XY1CHWNlDpfxg5CyMBWyCESKADooZP0AVOT3BXV5RDTuWz4ERVGoK592wfZrTK6NSf3GNdIhTF0czw 8SLQSrFAAqFbzUYxk6FJzvYL2DnNHiYXmKoNVeLA16iiwPZdPlA6Yyk0ZoBiC9QSCyNqRbQTymPLKqGm H1SC12sNtuIO0OMGDpJRNjWL71NSD8UYPcTx5OIr1F BvUnYX1tln4OJLHuMFXhRarHPvh9IBzfXN7NkWMfB9YbkDZxy2uVYfYkB6IRHSCtDEUgHc6IDBEmVkVl TAIhEUceXZ4hBKGaUUHFwUmrmlX9DG5RMY5zjyDjTX8DDyLyFa4lUc9ZWuJhP9QxH9YaGIOwOCQXSWpy KM5OOHimPF6aJJ2Im2JQkWGagZ1pbw5YGKHzENKfVo dipl0TOpfeJ9W0fYukRYLoUJLtFYPEMJpuKA2GWSTrEMR5INS7HrAkJLUOYhKkC45qQF5OT6Kbo15fDk T6YTXoMoHuUQiaUN26rTnafaYclIUawFbwYL7FZm4+DQplbmRvYmoNCnhyZWYNCjAgNDcNCjAwMDAwMD IrLQBvJdG7VqMvSw0OXWCcAWJtRLIyIqEdBASpTFFp OUvyXQZyYUEbGKrvHRJbXTVvLW0PHuOiLGMnHaP5HQQqDKAqFMZqpb3WDKQzFXLxNEY2PrUdKYEtHBGa VRqjRTNbJPUjWvrsDBLvCFHfNB2DZfJbHIZzMBE4HRbpNIJpAMWvdb4BCKCfOHOqXPbvUoUnPSRpYJKk UMbiYLMlGXH8WIZ3FFOmXQFyJP6IQzYiVUUmCJW8QU imPQHbRMYfzj4TBWKdQZNrCuR7FgIySFBcOPIqITivRUTsUJQ6KbCaCRCnWYPsPF8EVlScCBUwSNn1Yk MbSLEvUQZjsx8MRPDmKNXfHDT5MxRiIWByLWZkULyeELLeVCNzXZMjQPVwZLZkPL4RRmIiACWaJKAzSM YvICIzVKMafe9MONZkRDKjAdIkNJBsINMlGTQlICxu ORZbHIU3IAm7OUQpJJYmWS3XEjOxXJTfBCMqQMZwBSHrMQCtrw2RXBHbKXKdEIK7AcMuHDSvDZMkFIkv PTFcDJK9BzslVQOhUQBfVS8CBfRvCXKgKJv8OdfqYXNsBTElwq7QJDRbRSYrBeR9IKCuUYWpYNFzZReb QENxIFJ2Gca4JXCuKMYrPY7QWqMgFDOdEGq1JRCzCD JeWCPxlq2KHNIrWYEmTQFnWRGuILYbXBNpYWogVEVxBMSrHbDyLHPlPCKvUK5DUmGiAHFrJdLjAGXrOR XnLRYncz4PQSBzCLKaZZK1JIVnLYBqWYPpHYwaCMExSSOkZZPpHDTgTGXdAQ0ZUxRyYDWnDvJ7TGwcHH UlGOJhmg6BBLCvCOAeFrvbOZDmKYBjMZCaMKkuUVYs FGCrQudyBVOxKODkIM9RSaIhOKDtAjC4NASdFEVkSNHcgd3BYMUbSVVeBTA1RZKgGKGlUFZqGFfjSZZg ZUX8Yed9IGKzEZJpMX7ELfErYZWzHcF2PiKhLKRrLTSgbz3RYLCcYFN4AFz1YlTtNULrZCGvKYipFUIz XGM3UxFkPMLwBUYtFR5SEtHlSEZeEIV8BlOlEPGySN Vpzs5QZKGvQXUhUJAjSaLjLSQfYYSvRUmzYQLvDZF0KJmoIPRlWXBjNX0CXdToAHVaTxJ6UOFmXTUyMQ Cjrv8VGQAwZXEgEWB4UxAhEKCpPNYjNBmeCUOvQTX0BDg5HOUzSHVrIP2CItNyCXBsSgQ5LYznMWHoWC Dbju4EZLLxAMGqAyU8IlXuZVNvIANdWQs4kgJlzCEo XKt3NM3WW4OqozJkKOwYZn3Lg951GRA2FRVlTa8KY2jcXq8yOYItYQPYBv3ZICl7MQS2GIRnWUB0SgUr LdN2Fev1GoN3COF5OANxClE6SGI+GTy4OjdjEoQsMSXrTPTiMZa5BrTtZFnhBFX4UCScSTB2OM1rFCRT Cj4+QJmxwRXnyJmnBHBGArCgPtHrBW3SLKKVV1AAOx== ID Date Data Source [id number] 10/13/2019 01:47:16 PM EDT [facility] Name Value Range Interpretation Code Description Data Marva rce(s) Supporting Document(s) POC NOVA GLU 127 mg/dL (70-99) [facility] CLINICAL STAFF ID Date Data Source [id number] 10/13/2019 08:38:57 AM EDT [facility] Name Value Range Interpretation Code Description Data Marva rce(s) Supporting Document(s) POC NOVA GLU 150 mg/dL (70-99) [facility] CLINICAL STAFF ID Date Data Source [id number] 10/13/2019 10:31:34 AM EDT [facility] Name Value Range Interpretation Code Description Data Marva rce(s) Supporting Document(s) SODIUM 138 mmol/L (136-145) [facility] POTASSIUM 4.2 mmol/L (3.6-5.2) [facility] CHLORIDE 106 mmol/L (100-108) [facility] CO2 25 mmol/L (22-31) [facility] ANION GAP 7 mmol/L (7-16) [facility] UREA NITROGEN 22 mg/dL (7-24) [facility] CREATININE 1.04 mg/dL (0.60-1.00) [facility] BUN/CREAT RATIO 21.2 RATIO (10.0-20.0) [facility] GLUCOSE 149 mg/dL (70-99) [facility] CALCIUM 8.8 mg/dL (8.4-10.2) [facility] GFR 52 ml/min/1.73m2 (>59) L [facility] GFR ([facility] AM) >60 ml/min/1.73m2 (>59) [facility] GFR INTERPRETATION [facility] --NORMAL KIDNEY FUNCTION OR MILD DISEASE - GFR >OR= 60CHRONIC KIDNEY DISEASE - GFR 15 - 59RENAL FAILURE - GFR <15 Est. GFR calculation based on the MDRDstudy equation, which assumes a steadystate for creatinine. Est. GFR should notbe used for medication dosing. ID Date Data Source [id number] 10/13/2019 06:56:26 AM EDT [facility] Name Value Range Interpretation Code Description Data Marva rce(s) Supporting Document(s) APTT 128.1 s (22.0-34.3) [facility] ALERTED CRITICAL RESULT KEKE([id number]) [id number] AT [id number] ID Date Data Source [id number] 10/13/2019 06:28:41 AM EDT [facility] Name Value Range Interpretation Code Description Data Marva rce(s) Supporting Document(s) WBC 5.7 10*3/uL (4.1-11.0) [facility] RBC 3.69 10*6/uL (4.00-5.40) L [facility] HGB 10.4 g/dL (12.0-16.0) [facility] HCT 32.0 % (36.0-47.0) [facility] MCV 86.8 fL (80.0-95.0) [facility] MCH 28.3 pg (27.0-32.0) [facility] MCHC 32.6 g/dL (32.0-36.0) [facility] RDW 15.5 % (10.5-14.5) [facility] PLT 176 10*3/uL (150-450) [facility] MPV 8.8 fL (7.1-10.7) [facility] ID Date Data Source [id number] 10/12/2019 11:06:58 PM EDT [facility] Name Value Range Interpretation Code Description Data Marva rce(s) Supporting Document(s) APTT 76.8 s (22.0-34.3) [facility] ID Date Data Source [id number] 10/12/2019 09:00:28 PM EDT [facility] NT INFORMATIONPatient MRN Name Date of Age Gend*PT [id number] Mireille Rodas 1945 74 years F IPPT Location Admission Date/Time Visit ID Attending [id number] 10/12/19 0003 --- Sherrill Martini MD([id number]) EPI ID CSN Admitting Provider [id number] Sherrill Martini MD([id number]) Attestation signed by Quirino Marie MD at 10/12/2019 9:00 PMThe case was discussed with IRONER MACHINE and agreed with plans. ------Inpatient History & PhysicalElifabienne oRdasKPC [facility]: [id number] and Plan:Principal Problem: NSTEMI (non-ST elevated myocardial infarction)Active Problems: Diabetic neuropathy Type 2 diabetes mellitus Hypertension Hypercholesterolemia Elevated troponin Coronary artery disease1. NSTEMI: Presented with dizziness found to have troponin > 3. She was justdischarged 3 days ago having been admitted with chest pain. She was treatedwith ranexa and imdur at that time and discharged to home. Continue heparin IV,BB, statin. Cycle troponin. NPO for likely cath in am.2. DM II: Continue lantus and SS insulin. Fingerstick TID3. HTN: continue BB and ACE4. HLD: Continue statinDVT px: Heparin gttPatient is FULL CODE verified by discussion with patient.History of Present Illness: Mireille is a 74 year old female with PMH of CADs/p [place] in and recent stenting x9 in 04/2019, HTN, DM, HLD, GERD, anxiety,PVD who was transferred to [facility] with NSTEMI. The patient was just [facility] on 10[facility]08 having been admitted for CP. At that time she was treated withImdur and Ranexa and dentures lab technician was deferred in light of normal troponin. Overthe last 24 hours, the patient was noting dizziness and subsequently went to theED. Lab work there revealed an elevated troponin >3. She was given meclizine,asa 325 mg, labetalol and IV heparin prior to transfer. She denies CP and onlycomplains of dizziness. CT head was done at transferring hospital and wasnegative for acute process. She is transferred to [facility] for further work up andtreatment.Past Medical History:Past Medical History:Diagnosis Date Abnormal EKG [address] bell, baseline EKG is sinus rhythm, frequent PACs, poor Rwave progression, nonspecific ST-T wave abnormality, repolarizationabnormalities. Anxiety Cellulitis of left toe Coronary artery disease Diabetic neuropathy GERD (gastroesophageal reflux disease) Hypercholesterolemia Hypertension Onychomycosis Paronychia of great toe of left foot 04/22/2019 Peripheral artery disease Type 2 diabetes mellitus Wound healing, delayedPast Surgical History:Past Surgical History:Procedure Laterality Date BREAST BIOPSY CARDIAC CATHETERIZATION N/A 04/24/2019 Procedure: Percutaneous coronary intervention; Surgeon: Raymond Casiano MD;Laterality: N/A; CARDIAC CATHETERIZATION N/A 04/22/2019 Procedure: Left heart cath; Surgeon: Raymond Casiano MD; Laterality: N/A; CARDIAC CATHETERIZATION N/A 04/22/2019 Procedure: Coronary angiography; Surgeon: Raymond Casiano MD; Laterality:N/A; CARDIAC CATHETERIZATION N/A 04/22/2019 Procedure: Left ventriculography; Surgeon: Raymond Casiano MD; Laterality:N/A; CARDIAC CATHETERIZATION N/A 04/22/2019 Procedure: Percutaneous coronary intervention; Surgeon: Raymond Casiano MD;Laterality: N/A; Cardiac stress test For cardiac stress tests last one was in 2014: No stress inducible angina.Electrographically inconclusive for detection of myocardial ischemia due tobaseline repolarization abnormality. Reversible very small basal inferior walldefect consistent with regadenoson inducible coronary flow no distribution inthe right coronary artery territory. Normal LV wall motion Cataract surgery CHOLECYSTECTOMY Myocardial infarction 1992 OOPHORECTOMY Peripheral artery stenting Right leg TUBAL LIGATION WOUND DEBRIDEMENTMedications:(Not in a hospital admission)Allergies:Patient has no known drug allergies.Family History:Family HistoryProblem Relation Age of Onset Diabetes type II Mother Myocardial Infarction ([place]) Mother Heart disease Father [place] ([place] Father [place] ([place] Brother Age 59 [place]ocardial Infarction ([place]) Brother age 46 Heart attack Sister age 72Social History:Social HistorySocioeconomic History Marital status: Spouse name: Not on file Number of children: Not on file Years of education: Not on file Highest education level: Not on fileOccupational History Occupation: retiredSocial Needs Financial resource strain: Not hard at all Food insecurity: Worry: Never true Inability: Never true Transportation needs: Medical: No Non-medical: NoTobacco Use Smoking status: Former Smoker Packs/day: 1.50 Years: 30.00 Pack years: 45.00 Last attempt to quit: 1992 Years since quittin.4 Smokeless tobacco: Never UsedSubstance and Sexual Activity Alcohol use: Not Currently Comment: Occasionally Drug use: Never Sexual activity: Not CurrentlyLifestyle Physical activity: Days per week: Not on file Minutes per session: Not on file Stress: Not on fileRelationships Social connections: Talks on phone: Not on file Gets together: Not on file Attends voodoo service: Not on file Active member of club or organization: Not on file Attends meetings of clubs or organizations: Not on file Relationship status: Not on file Intimate partner violence: Fear of current or ex partner: Not on file Emotionally abused: Not on file Physically abused: Not on file Forced sexual activity: Not on fileOther Topics Concern Not on fileSocial History Narrative Patient has family members she lives withReview of SystemsConstitutional: Positive for activity change. Negative for appetite change,chills, diaphoresis, fatigue and fever.HENT: Negative for sore throat and trouble swallowing.Respiratory: Negative for cough, chest tightness, shortness of breath andwheezing.Cardiovascular: Negative for chest pain and leg swelling.Gastrointestinal: Negative for abdominal pain, constipation, diarrhea andvomiting.Genitourinary: Negative for difficulty urinating.Musculoskeletal: Negative for arthralgias and myalgias.Neurological: Positive for dizziness.Temp: [98.5 F] 98.5 FHeart Rate: [86-88] 86Resp: [18] 18BP: (173-178)/(75-81) 178/75Physical ExamConstitutional: She is oriented to person, place, and time. She appearswell- developed. No distress.HENT:Head: Normocephalic and atraumatic.Mouth/Throat: Oropharynx is clear and moist. No oropharyngeal exudate.Eyes: Pupils are equal, round, and reactive to light. EOM are normal.Neck: Neck supple.Cardiovascular: Normal rate and regular rhythm. Peripheral Edema: no lowerextremity edema.Pulmonary/Chest: Effort normal and breath sounds normal. No respiratorydistress. She has no wheezes. She has no rhonchi. She has no rales. She exhibitsno tenderness.Abdominal: Soft. Bowel sounds are normal. She exhibits no distension. There isno tenderness. There is no guarding.Neurological: She is alert and oriented to person, place, and time. No cranialnerve deficit.Skin: Skin is warm and dry. She is not diaphoretic. No erythema.Vitals reviewed.Labs, Imaging and Other Diagnostic Tests:Diagnostic test reviewed for today's visit include: Old RecordsReviewed.Significant findings: Records from transferring hospital were reviewed..Signature: Justo Palma, BRANCH SALES MANAGER-BCDate: October 12, 2019Time: 3:04 AM Name Value Range Interpretation Code Description Data Marva rce(s) Supporting Document(s) ID Date Data Source [id number] 10/12/2019 08:29:00 PM EDT [facility]) Name Value Range Interpretation Code Description Data Marva rce(s) Supporting Document(s) Troponin I.cardiac [Mass/volume] in Serum or Plasma 2.03 ng/mL Above upper panic limits [facility] ([facility]) Less than 0.05: Myocardial injury unlike ly Greater than or equal to 0.05: Highly suggestive of myocardial injury Correlation with rise and/or fall of serial troponins, clinical symptoms and ECG changes is necessary. ALERTED CRITICAL RESULT TO BRENDEN([id number]) [place] [address] ON 10/12/19 [place]31 [place] [address] ID Date Data Source [id number] 10/12/2019 05:23:55 PM EDT [facility] Name Value Range Interpretation Code Description Data Marva rce(s) Supporting Document(s) POC NOVA GLU 141 mg/dL (70-99) [facility] CLINICAL STAFF ID Date Data Source [id number] 10/12/2019 04:33:05 PM EDT [facility] Name Value Range Interpretation Code Description Data Marva rce(s) Supporting Document(s) TROPONIN I 2.03 ng/mL (<0.05) [facility] Less than 0.05: Myocardial injury unlike lyGreater than or equal to 0.05: Highly suggestive of myocardial injuryCorrelation with rise and/or fall ofserial troponins, clinical symptomsand ECG changes is necessary.ALERTED CRITICAL RESULT TOKATIE([id number]) [place] [address] ON 10/12/19 [place] [address] ID Date Data Source [id number] 10/12/2019 04:01:21 PM EDT [facility] Name Value Range Interpretation Code Description Data Marva rce(s) Supporting Document(s) APTT 37.0 s (22.0-34.3) H [facility] ID Date Data Source [id number] 10/12/2019 01:45:44 PM EDT [address] [address]J[place] Name: MIREILLE RODASDOB: 1945Sex: FOrdering Provider: SHERRILL Pablo Prov: SHERRILL Arguelles Provider: Procedure Performed: US CAROTID BILATERALExam Date: 10/12/2019 13:36MRN: [id number] Number: [id number] Class: InpatientAccount #: [id number] for Exam: dizzinessTechnique: Duplex sonography was performed.Comparison: NoneFindings: The right and left carotid systems were examined by Doppler sonography. Carotid stenosis measurements were performed using the NASCET method.RIGHT CAROTID SYSTEM:Common Systolic Velocity 108 cm/s End-Diastolic Velocity 22 cm/sInternal Systolic Velocity 298 cm/s End- Diastolic Velocity 67 cm/sExternal Systolic Velocity 122cm/s End-Diastolic Velocity 7 cm/sVertebral Artery 93 cm/s Antegrade flowICA/CCA Systolic Ratio = 2.8 Internal Carotid Artery Stenosis: Greater than 70%LEFT CAROTID SYSTEM:Common Systolic Velocity 142 cm/s End-Diastolic Velocity 21 cm/sInternal Systolic Velocity 103 cm/s End-Diastolic Velocity 23 cm/sExternal Systolic Velocity 158 cm/s End-Diastolic Velocity 0 cm/sVertebral Artery 74 cm/s Antegrade flowICA/CCA Systolic Ratio = 0.7 Internal Carotid Artery Stenosis: Less than 50%IMPRESSION: High-grade (greater than 70%) right internal carotid artery stenosisMild (less than 50%) left internal carotid artery stenosis.These findings were communicated utilizing the departmental critical results protocol.Report electronically signed by: SLOANE BELTRAN On 10/12/2019 1:45 PMWorkstation ID: [id number] Name Value Range Interpretation Code Description Data Marva rce(s) Supporting Document(s) ID Date Data Source [id number] 10/12/2019 11:46:13 AM EDT [facility]PAT[facility] NT INFORMATIONPatient MRN Name Date of Age Gend*PT [id number] Mireille Rodas 1945 74 years F IPPT Location Admission Date/Time Visit ID Attending [id number] 10/12/19 0003 --- Sherrill Martini MD([id number]) EPI ID CSN Admitting Provider [id number] Quirino Marie MD([id number])Cardiology NoteElizanataly RodasMRN: [id number]/HPI: 74-year-old with history of myocardial infarction 1990s total of 9 stentsperipheral vascular disease diabetes hypertension hyperlipidemia coronarydisease prior RCA and LAD stenting who was a started having dizziness andlightheadedness was found with troponin of 2.58 now feels well on heparin ipafter CT of the head showed no acute abnormality transferred to us for furtherwork-upROS:As abovePhysical Exam:Body mass index is 24.69 kg/m .Weight: [61.2 kg (135 lb)] 61.2 kg (135 lb)Intake/Output Summary (Last 24 hours) at 10/12/2019 1036Last data filed at 10/12/2019 0830Gross per 24 hourIntake 191.15 mlOutput Net 191.15 mlTemp: [98.4 F-98.8 F] 98.4 FHeart Rate: [86-89] 89Resp: [16-18] 16BP: (105-178)/(51-81) 105/51Neck: No JVD, no bruitsChest: GAE, no added soundsCardiac: PMI present, RRR, S1 and S2, no S3 or S4, no additional heart sounds ormurmurs.Abdomen: Benign, soft and lax, positive bowel soundsExtremities: No Cyanosis, no clubbing, no ed emaNeurological: AAOx3, CN II-VII are grossly intact, no focal motor or sensorydeficitNo Known Drug AllergiesPast Medical History:Diagnosis Date Abnormal EKG [address] bell, baseline EKG is sinus rhythm, frequent PACs, poor Rwave progression, nonspecific ST-T wave abnormality, repolarizationabnormalities. Anxiety Cellulitis of left toe Coronary artery disease Diabetic neuropathy GERD (gastroesophageal reflux disease) Hypercholesterolemia Hypertension Onychomycosis Paronychia of great toe of left foot 04/22/2019 Peripheral artery disease Type 2 diabetes mellitus Wound healing, delayedPast Surgical History:Procedure Laterality Date BREAST BIOPSY CARDIAC CATHETERIZATION N/A 04/24/2019 Procedure: Percutaneous coronary intervention; Surgeon: Raymond Casiano MD;Laterality: N/A; CARDIAC CATHETERIZATION N/A 04/22/2019 Procedure: Left heart cath; Surgeon: Raymond Casiano MD; Laterality: N/A; CARDIAC CATHETERIZATION N/A 04/22/2019 Procedure: Coronary angiography; Surgeon: Raymond Casiano MD; Laterality:N/A; CARDIAC CATHETERIZATION N/A 04/22/2019 Procedure: Left ventriculography; Surgeon: Raymond Casiano MD; Laterality:N/A; CARDIAC CATHETERIZATION N/A 04/22/2019 Procedure: Percutaneous coronary intervention; Surgeon: Raymond Casiano MD;Laterality: N/A; Cardiac stress test For cardiac stress tests last one was in 2014: No stress inducible angina.Electrographically inconclusive for detection of myocardial ischemia due tobaseline repolarization abnormality. Reversible very small basal inferior walldefect consistent with regadenoson inducible coronary flow no distribution inthe right coronary artery territory. Normal LV wall motion Cataract surgery CHOLECYSTECTOMY Myocardial infarction 1992 OOPHORECTOMY Peripheral artery stenting Right leg TUBAL LIGATION WOUND DEBRIDEMENTSocial HistorySocioeconomic History Marital status: Spouse name: Not on file Number of children: Not on file Years of education: Not on file Highest education level: Not on fileOccupational History Occupation: retiredSocial Needs Financial resource strain: Not hard at all Food insecurity: Worry: Never true Inability: Never true Transportation needs: Medical: No Non-medical: NoTobacco Use Smoking status: Former Smoker Packs/day: 1.50 Years: 30.00 Pack years: 45.00 Last attempt to quit: 1992 Years since quittin.4 Smokeless tobacco: Never UsedSubstance and Sexual Activity Alcohol use: Not Currently Comment: Occasionally Drug use: Never Sexual activity: Not CurrentlyLifestyle Physical activity: Days per week: Not on file Minutes per session: Not on file Stress: Not on fileRelationships Social connections: Talks on phone: Not on file Gets together: Not on file Attends voodoo service: Not on file Active member of club or organization: Not on file Attends meetings of clubs or organizations: Not on file Relationship status: Not on file Intimate partner violence: Fear of current or ex partner: Not on file Emotionally abused: Not on file Physically abused: Not on file Forced sexual activity: Not on fileOther Topics Concern Not on fileSocial History Narrative Patient has family members she lives withFamily HistoryProblem Relation Age of Onset Diabetes type II Mother Myocardial Infarction ([place]) Mother Heart disease Father Myocardial Infarction ([place] Father [place]ocardial Infar[place] ([place] Brother Age 59 Myocardial Infarction ([place]) Brother age 46 Heart attack Sister age 72Medications: Scheduled Meds: aspirin EC 81 mg Oral Daily atorvastatin 80 mg Oral Daily carvedilol 12.5 mg Oral BID clopidogrel 75 mg Oral Daily DULoxetine 60 mg Oral Daily gabapentin 800 mg Oral Nightly insulin glargine 12 Units Subcutaneous Nightly insulin lispro 1-8 Units Subcutaneous With meals sliding scale isosorbide mononitrate 30 mg Oral Daily normal saline flush 3 mL Intravenous Q8H YIN pantoprazole 40 mg Oral Daily ranolazine 500 mg Oral BID spironolactone 12.5 mg Oral Daily trandolapril 0.5 mg Oral DailyContinuous Infusions: heparin (porcine) in NaCl 14 Units/kg/hr (10/12/19 0830)PRN Meds:.acetaminophen, atropine sulfate, heparin (porcine), metoclopramide,nitroglycerin, ondansetronLabs, Imaging, and other Diagnostics:Labs reviewed at 10:36 AMLab ResultsComponent Value Date WBC 8.6 10/12/2019 HGB 11.0 (L) 10/12/2019 HCT 32.4 (L) 10/12/2019 MCV 83.3 10/12/2019 PLT 213 10/12/2019Results from last 7 daysLab Units 10/12/199910/07/[id number] I ng/mL -- -- 2.58* <0.05 <0.05POC TROPONIN I. ng/mL 1.28* 1.31* -- -- --Results from last 7 daysLab Units SODIUM mmol/L 138POTASSIUM mmol/L 4.1CHLORIDE mmol/L 106CO2 mmol/L 24BUN mg/dL 24CREATININE mg/dL 1.05*GFRAA ml/min/1.73m2 >60GFRNAA ml/min/1.73m2 52*GLUCOSE mg/dL 120*CALCIUM mg/dL 8.8Results from last 7 daysLab Units 10/06/202210/07/[id number] I ng/mL 2.58* <0.05 <0.05Assessment and Plan:Principal Problem: NSTEMI (non-ST elevated myocardial infarction)Active Problems: Diabetic neuropathy Type 2 diabetes mellitus Hypertension Hypercholesterolemia Elevated troponin Coronary artery diseaseSp madisyn with her nurse at the bedside continue current appropriate medical therapysince patient is angina free we will inform Dr. dozier tomorrow for cardiaccatheterization or or just medical therapy medical therapy since patient has hadno chest pain but has ruled in for myocardial infarctionSignature: Ye Gu, MDDate: October 12, 2019Time: 10:36 AM Name Value Range Interpretation Code Description Data Marva rce(s) Supporting Document(s) ID Date Data Source [id number] 10/12/2019 11:15:16 AM EDT [facility] Name Value Range Interpretation Code Description Data Marva rce(s) Supporting Document(s) POC NOVA GLU 138 mg/dL (70-99) H [facility] CLIN[facility] STAFF ID Date Data Source [id number] 10/12/2019 12:46:32 PM EDT [facility] Name Value Range Interpretation Code Description Data Marva rce(s) Supporting Document(s) TROPONIN I 1.95 ng/mL (<0.05) [facility] Less than 0.05: Myocardial injury unlike lyGreater than or equal to 0.05: Highly suggestive of myocardial injuryCorrelation with rise and/or fall ofserial troponins, clinical symptomsand ECG changes is necessary.ALERTED CRITICAL RESULT [place]KATIE([id number]) [place] [address] ON 10/12/19 AT 1247 [place] [id number] ID Date Data Source [id number] 10/12/2019 07:54:37 AM EDT [address] [address]Omnwjjv Name: MIREILLEDUNIA WINNENOCHDOB: 1945Sex: FOrdering Provider: JUSTO PALMAAuthorizing Prov: JUSTO PALMAReferrtone Provider: Procedure Performed: XR CHEST PORTABLEExam Date: 10/12/2019 00:25MRN: [id number] Number: [id number] Class: InpatientAccount #: [id number] for Exam: CP, SOBTechnique: Single AP view obtained.Comparison: NoneFindings: The lungs are clear of active disease. The cardiac and mediastinal contours are within normal limits for an AP portable radiograph of the chest. There are no pleural effusions.IMPRESSION: No acute disease in the chest.Report electronically signed by: EVARISTO ROGEL On 10/12/2019 7:54 AMWorkstation ID: [id number] Name Value Range Interpretation Code Description Data Marva rce(s) Supporting Document(s) ID Date Data Source [id number] 10/12/2019 07:44:37 AM EDT [facility] Name Value Range Interpretation Code Description Data Marva rce(s) Supporting Document(s) POC NOVA GLU 135 mg/dL (70-99) H [facility] [place] [facility] ID Date Data Source [id number] 10/12/2019 07:32:57 AM EDT [facility]PAT[facility] NT INFORMATIONPatient MRN Name Date of Age Gend*PT [id number] Mireille Rodas 1945 74 years F IPPT Location Admission Date/Time Visit ID Attending [id number] 10/06/19 1857 --- --- EPI ID CSN Admitting Provider [id number] Melany Livingston MD([id number])Hospitalist Discharge Summary Mireille RodasMRN: [id number] CARE PHYSICIAN: Sloane Urrutia FNPAdmit date: 10/06/2019Admitting Physician: JOVI Menjivarischarge date and time:Discharge Orders Placed(From admission, onward) Start Ordered 10/09/191427 Discharge patient OnceExpected Discharge Date: 10/09/19Discharge Disposition: Home or Self Care 10/09/191427Discharge Physician: Marck Rodrigues Diagnosis: anginaSecondary Diagnoses: Active Problems: Diabetic neuropathy Type 2 diabetes mellitus Hypertension Hypercholesterolemia Anxiety Coronary artery disease GERD (gastroesophageal reflux disease) Unstable angina Angina at rest Anginal painConsulting Physicians:Dr. Perez of cardiologyProcedures Performed:noneHospital Course:Mireille Rodas is a 74 years old woman with h/o HTN, HL, DM2, CAD s/p PCIwith LAN in April 2019. She presented with symptoms of jaw pain and headacherelieved by nitro, which was similar to before her prior cardiac event. Therewere no acute EKG changes and her troponin started at 0.05 and then downtrended.The pt was admitted to the hospitalist service. She was seen in consultation bycardiology and antianginal medications were added and her symptoms did notrecur.. Cardiac cath was deferred in the absence of elevated troponin. She hadan echo, with results as outlined below. On 10/08 the pt was feeling at [facility] and was discharged home in stable condition.Diagnostic Studies:Echo1. Left ventricular cavity size is normal with mild increase in wallthickness. 2. LV systolic function is normal with resting estimated ejection fraction is55-60 %. 3. The left ventricular wall motion is normal 4. LV diastolic function is abnormal with elevated filling pressure 5. Left atrial size is moderately dilated 6. Estimated PA pressure is 38 mm hg . 7. 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 Aortic valve is mildly sclerotic, no stenosis, trace aortic regurgitation Discharge Exam:Vitals: Temp: [97.9 F-98.4 F] 98.1 FHeart Rate: [73-80] 80Resp: [16-18] 16BP: (119-180)/(57-78) 123/58Gen - AAOx3, NADHEENT - EOMI, anicteric, MMM, o/p clearCV - RRR, nl S1 and S2Pulm - CTAB, no w/r/rAbd - +BS, soft, NT, NDExtrem - no c/c/e, WWPNeuro - grossly intactDischarge Diet:Cardiac, diabeticDischarge Activity:As tolerated Mireille Rodas Medication Instructions LUIGI:[id number] Printed on:10/09/19 1430Medication Informationacetaminophen (TYLENOL) 325 MG tabletTake 2 tablets (650 mg total) by mouth every 4 (four) hours as neededaspirin EC 81 MG EC tabletTake 81 mg by mouth dailyatorvastatin (LIPITOR) 80 MG tabletTake 80 mg by mouth dailycarvedilol (COREG) 25 MG tabletTake 12.5 mg by mouth 2 (two) times a dayclopidogrel (PLAVIX) 75 MG tabletTake 75 mg by mouth dailyDULoxetine (CYMBALTA) 60 MG capsuleTake 60 mg by mouth dailygabapentin (NEURONTIN) 800 MG tabletTake 800 mg by mouth nightlyinsulin detemir (LEVEMIR) 100 UNIT/ML injectionInject 30 Units under the skin nightlyisosorbide mononitrate (IMDUR) 30 MG 24 hr tabletTake 1 tablet (30 mg total) by mouth dailyLiraglutide (VICTOZA) 18 MG/3ML SOPNInject 1.8 mg under the skin dailyMenthol, Topical Analgesic, (BIOFREEZE EX)Apply 1 application topically daily as needed (pain)metFORMIN (GLUCOPHAGE) 1000 MG tabletTake 1,000 mg by mouth daily with breakfastmetFORMIN (GLUCOPHAGE) 1000 MG tabletTake 1,500 mg by mouth every eveningnitroglycerin (NITROSTAT) 0.4 [address] tabletPlace 1 tablet (0.4 mg total) under the tongue every 5 (five) minutes as neededfor chest painpantoprazole (PROTONIX) 40 MG tabletTake 40 mg by mouth dailyranolazine (RANEXA) 500 MG 12 hr tabletTake 1 tablet (500 mg total) by mouth 2 (two) times a dayspironolactone (ALDACTONE) 25 MG tabletTake 12.5 mg by mouth dailytrandolapril (MAVIK) 1 MG tabletTake 0.5 mg by mouth dailyDischarge Instructions:- follow up with MYRIAM Carney in one week- follow up with cardiology in 2 weeksDischarged Condition:stableDisposition: Home or Self CareCode Status: Full CodeTime spent: 25 min spent on dischargeSignature: Maria Glasteffanie, MDDate: October 09, 2019Time: 2:30 PMParts of this document were dictated using [employer] dictation software. Areasonable attempt at proofreading has been made to minimize errors. Please c allwith any questions or corrections. Name Value Range Interpretation Code Description Data Marva rce(s) Supporting Document(s) ID Date Data Source [id number] 10/12/2019 07:53:14 AM EDT [facility] Name Value Range Interpretation Code Description Data Marva rce(s) Supporting Document(s) APTT 40.4 s (22.0-34.3) H [facility] ID Date Data Source [id number] 10/12/2019 06:37:40 AM EDT [facility] Name Value Range Interpretation Code Description Data Marva rce(s) Supporting Document(s) EKG [facility] RCLOLu7oAgBZKmYzn1NaJpYeXYXuIP0sddk7Y6Q8oCVdU1PfjLBzv5msS7HfA1XdOGXhSZXSNC8DrWZu jb2 [file] wzucQG87Y5xCEgPZySX9tepXsVPUqfv4qj5KuDxbUZ4UTGooQfdydrhgtEqjO2EV+lbe8OfJqt0aM/valentín [file] RyAbq8T0ITVmfiDPZZRKIIOITbdyZKuXLnWBNTSDOR HvQPM2Khe8OPllO0I0YaknT2UzDN2PL8TeGOUpOAGHXIGbdlZyJW1AsfAfvP3tJDdYHCASHFhDTZzkMa A8a65qhvVYKVMvIYMhETniMHQuMEFnHPFoHVIyURFjFFWgCXZrXG3DU6MtVTOiUROKTVU5a8JiSKFvao fxubiwCe8dpuTtEqi+NasrTQOgi8SxKOikO1C4zNWi R0OtJ8LkJZ2LcJEjWCabNGRtPOYhGYMmD764leQuUU2+TV4up4IjCnhlEQXXRPXoZXSnBLChDIJ2UwCk XJIhVWOoGULiMoI1XaFhUbQQKWKxVWH7PaS6GgTfQPWrTKAzYJqlGSDnHUy9VXW4XJOjAXRyHN0cHrZt VEUnAGJ2BeJfXDAmTVIxelPTBLUvWBLgPSMlTUE1GO WvUSXeNKpbULHnMCPtIGP5MVSmABXyNK0wKwGmOQKhIAApInfjMIPdJVKvedACPQKdSGRtRUV7XaEvSC UfAXYbRJxlNJXuVHFxIsv4SWAkBGRvXB6aLgGnSBEgOMY8GLipGPMkASSiapWSBJCtLSZuEEXgFeWvLA WaPABbYCgoMLPnARNiDwVtGUTkUDUfQC5bLhNpPGKl TGK9QNItYXRvGFCmbfWTGCBhYEFvRWp7NUKkNMHaKAPhXLglCDNsUJTyAYQ9INImQNQiPI6rKvXyLQSf XJEmPDBhMCIqZLKkxzMQLHMrODLmXCR4ULZlEBOeACErGNqsGJZyYDGxSgf3MUIjGLFyKW3kSyHfSSOn DKT1JEQuBFWnQRRuosUOCSCsZIF3ZsojFMXqNRRsBP JpJZsmBFAdFMYuUwU0CITaZOZkWK3xJcZjVQPgGGD0QaPnEZLnNPJstpLERKZwDQIyUNK6RgNeREAnBL ZwENbxCLTzYNBzHTOuOQW8HIP1ZDHpPtTlXJatLEJBYZjVP5JomuVzZlJWP5osUo0wKoUbQYBCA8Tis4 QgNSAwIFIKCj4+AfA2QDV7sDGsSwe1ViEvZehrQYICUq== ID Date Data Source [id number] 10/12/2019 05:45:00 AM EDT [facility] ([facility] Name Value Range Interpretation Code Description Data Marva rce(s) Supporting Document(s) Potassium [Moles/volume] in Serum or Plasma 4.1 mmol/L 3.6-5.2 [facility] ([facility]) Sodium [Moles/volume] in Serum or Plasma 138 mmol/L 136-145 [facility] ([facility]) Chloride [Moles/volume] in Serum or Plasma 106 mmol/L 100-108 [facility] ([facility]) Carbon dioxide, total [Moles/volume] in Serum or Plasma 24 mmol/L 22 -31 [facility] ([facility]) Anion gap in Serum or Plasma 8 mmol/L 7-16 [facility] ([facility]) Creatinine [Mass/volume] in Serum or Plasma 1.05 mg/dL 0.60-1.00 [facility] ([facility]) Glucose [Mass/volume] in Serum or Plasma 120 mg/dL 70-99 [facility] ([facility]) Urea nitrogen/Creatinine [Mass Ratio] in Serum or Plasma 22.9 1 0.0-20.0 [facility] ([facility]) Urea nitrogen [Mass/volume] in Serum or Plasma 24 mg/dL 7-24 [facility] ([facility]) Calcium [Mass/volume] in Serum or Plasma 8.8 mg/dL 8.4-10.2 [facility] ([facility]) Protein [Mass/volume] in Synovial fluid 7.5 g/dL 6.4-8.2 [facility] ([facility]) Albumin [Mass/volume] in Synovial fluid 3.7 g/dL 3.2-4.5 [facility] ([facility]) Globulin [Mass/volume] in Serum by calculation 3.8 g/dL 2.7-4.3 [facility] ([facility]) Alb/Glob ratio 1.0 [facility] Alkaline phosphatase [Enzymatic activity/volume] in Serum or Plasma 54 U/L 45-117 [facility] ([facility]) Bilirubin direct and total panel [Mass/volume] - Serum or Pl asma 0.4 mg/dL 0.0-1.0 [facility] ([facility]) PLEASE NOTE: Total bilirubin results may be falsely elevated in patients taking Eltrombopag. Aspartate aminotransferase [Enzymatic activity/volume] in Serum or Plasma 49 U/L 11-39 [facility] ([facility]) Alanine aminotransferase [Enzymatic activity/volume] in Seru m or Plasma 35 U/L 12-78 [facility] ([facility]) Glomerular filtration rate/1.73 sq M pre dicted among non-blacks [Volume Rate/Area] in Serum or Plasma by Creatinine-based formula (MDRD) Laboratory test result [facility] ([facility]) -- NORMAL KIDNEY FUNCTION OR MILD DISEASE - GFR >OR= 60 CHRONIC KIDNEY DISEASE - GFR 15 - 59 RENAL FAILURE - GFR <15 Est. GFR calculation based on the MDRD study equation, which assumes a steady state for creatinine. Est. GFR should not be used for medication dosing. Glomerular filtration rate/1.73 sq M pre dicted among blacks [Volume Rate/Area] in Serum or Plasma by Creatinine-based formula (MDRD) Laboratory test result [facility] ([facility]) Glomerular filtration rate/1.73 sq M pre dicted among non-blacks [Volume Rate/Area] in Serum or Plasma by Creatinine-based formula (MDRD) 52 [facility] ([facility]) ID Date Data Source [id number] 10/12/2019 05:23:00 AM EDT [facility] ([facility]) Name Value Range Interpretation Code Description Data Marva rce(s) Supporting Document(s) Leukocytes [#/volume] in Blood by Automated count 8.6 10*3/uL 4.1-11. 0 [facility] ([facility]) Erythrocytes [#/volume] in Blood by Automated count 3.88 10*6/uL 4.00 -5.40 [facility] ([facility]) Hemoglobin [Mass/volume] in Blood 11.0 g/dL 12.0-16.0 [facility] ([facility]) Hematocrit [Volume Fraction] of Blood by Automated count 32.4 % 3 6.0-47.0 [facility] ([facility]) Erythrocyte mean corpuscular volume [Entitic volume] by Auto mated count 83.3 fL 80.0-95.0 [facility] ([facility]) Erythrocyte mean corpuscular hemoglobin [Entitic mass] by Automated count 28.3 pg 27.0-32.0 [facility] ([facility]) Erythrocyte mean corpuscular hemoglobin concentration [Mass/volume] by Automated count 34.0 g/dL 32.0-36.0 [facility] Erythrocyte distribution width [Ratio] by Automated count 15.7 % 10.5-14.5 [facility] ([facility]) Platelets [#/volume] in Blood by Automated count 213 10*3/uL 150-450 [facility] ([facility]) Platelet mean volume [Entitic volume] in Blood by Marta 8.7 fL 7.1-10.7 [facility] ([facility]) Monocytes/100 leukocytes in Blood 6.1 % 0.0-8.0 [facility] ([facility]) Neutrophils % 71.5 % 35.0-75.0 [facility] ([facility]) Eosinophils/100 leukocytes in Blood 2.0 % 0.0-5.0 [facility] ([facility]) Lymphocytes/100 leukocytes in Blood 19.7 % 16.0-52.0 [facility] ([facility]) Basophils/100 leukocytes in Blood 0.7 % 0.0-4.0 [facility] ([facility]) Neutrophils [#/volume] in Blood by Automated count 6.1 10*3/uL 1.8-7. 7 [facility] ([facility]) Lymphocytes [#/volume] in Blood by Automated count 1.7 10*3/uL 1.2-4. 8 [facility] ([facility]) Basophils [#/volume] in Blood by Automated count 0.1 10*3/uL 0.0-0.2 [facility] ([facility]) Eosinophils [#/volume] in Blood 0.2 10*3/uL 0.0-0.5 [facility] ([facility]) Monocytes [#/volume] in Blood by Automated count 0.5 10*3/uL 0.0-0.8 [facility] ([facility]) ID Date Data Source [id number] 10/12/2019 03:32:49 AM EDT [facility] Name Value Range Interpretation Code Description Data Marva rce(s) Supporting Document(s) POC CTNI 1.28 ng/mL (0.01-0.07) H [facility] [place] Less than 0.08: Myocardial injury unlike lyGreater than or equal to 0.08: Highlysuggestive of myocardial injuryCorrelation with rise and/or fall ofserial troponins, clinical symptoms,and ECG changes is necessary.PERFORMED BY [facility] CLIN[facility] STAFF ID Date Data Source [id number] 10/12/2019 01:04:00 AM EDT [facility] [place] Name Value Range Interpretation Code Description Data Marva rce(s) Supporting Document(s) SARS coronavirus 2 RNA [Presence] in Res piratory specimen by MARYANNE with probe detection Lab [facility] This lab was reported by [facility]. ID Date Data Source [id number] 10/12/2019 03:17:29 AM EDT [facility] [place] Name Value Range Interpretation Code Description Data Marva rce(s) Supporting Document(s) SPECIMEN DESCRIPTION [facility] COVID19 RESULT (NDET) [facility] THIS ASSAY AMPLIFIES AND DETECTSTHE TARG ET RNA USING REAL-TIME PCR.NEGATIVE 2019_NCOV RT-PCR RESULTS DONOT PRECLUDE 2019_NCOV INFECTION ANDSHOULD NOT BE USED THE SOLE BASISFOR PATIENT MANAGEMENT DECISIONS. COMMENT Lab [facility] MICHEL[place] UNDER AN EMERGENCY USE AUTHORIZATION(EUA ) FOR THE DETECTION AND/OR DIAGNOSISOF THE VIRUS THAT CAUSES COVID-19.EMAILED [facility] IC ON 10/12/2019 AT 1332 XT 68368. ID Date Data Source [id number] 10/12/2019 01:18:42 AM EDT [facility] Name Value Range Interpretation Code Description Data Marva rce(s) Supporting Document(s) URN CULTURE HOLD Lab [facility] FOR ADD ON CULTURE ID Date Data Source [id number] 10/12/2019 12:59:22 AM EDT [facility] [place] Name Value Range Interpretation Code Description Data Marva rce(s) Supporting Document(s) POC CTNI 1.31 ng/mL (0.01-0.07) H Lab [facility] Less than 0.08: Myocardial injury unlike lyGreater than or equal to 0.08: Highlysuggestive of myocardial injuryCorrelation with rise and/or fall ofserial troponins, clinical symptoms,and ECG changes is necessary.PERFORMED BY [facility] STA[facility] ID Date Data Source [id number] 10/12/2019 01:46:23 AM EDT [facility] Name Value Range Interpretation Code Description Data Marva rce(s) Supporting Document(s) TROPONIN I 2.58 ng/mL (<0.05) Lab [facility] Less than 0.05: Myocardial injury unlike lyGreater than or equal to 0.05: Highly suggestive of myocardial injuryCorrelation with rise and/or fall ofserial troponins, clinical symptomsand ECG changes is necessary.ALERTED CRITICAL RESULT BRANDON [id number] ON ES1 [id number] ON 10.12.19 AT 0145H [place] [id number] ID Date Data Source [id number] 10/12/2019 01:46:23 AM EDT [facility] Name Value Range Interpretation Code Description Data Marva rce(s) Supporting Document(s) SODIUM 138 mmol/L (136-145) [facility] POTASSIUM 4.1 mmol/L (3.6-5.2) [facility] CHLORIDE 106 mmol/L (100-108) [facility] CO2 24 mmol/L (22-31) [facility] ANION GAP 8 mmol/L (7-16) [facility] UREA NITROGEN 24 mg/dL (7-24) [facility] CREATININE 1.05 mg/dL (0.60-1.00) H [facility] BUN/CREAT RATIO 22.9 RATIO (10.0-20.0) H [facility] GLUCOSE 120 mg/dL (70-99) H [facility] CALCIUM 8.8 mg/dL (8.4-10.2) [facility] TOTAL PROTEIN 7.5 g/dL (6.4-8.2) [facility] ALBUMIN 3.7 g/dL (3.2-4.5) [facility] GLOBULIN 3.8 g/dL (2.7-4.3) [facility] ALB/GLOB RATIO 1.0 RATIO [facility] ALKALINE PHOSPHATASE 54 U/L (45-117) [facility] BILIRUBIN,TOTAL 0.4 mg/dL (0.0-1.0) [facility] PLEASE NOTE:Total bilirubin results may be falselyelevated in patients taking Eltrombopag. AST (SGOT) 49 U/L (11-39) H [facility] ALT (SGPT) 35 U/L (12-78) [facility] GFR 52 ml/min/1.73m2 (>59) L [facility] GFR ( AMER) >60 ml/min/1.73m2 (>59) [facility] GFR INTERPRETATION [facility] --NORMAL KIDNEY FUNCTION OR MILD DISEASE - GFR >OR= 60CHRONIC KIDNEY DISEASE - GFR 15 - 59RENAL FAILURE - GFR <15 Est. GFR calculation based on the MDRDstudy equation, which assumes a steadystate for creatinine. Est. GFR should notbe used for medication dosing. ID Date Data Source [id number] 10/12/2019 01:23:52 AM EDT [facility] Name Value Range Interpretation Code Description Data Marva rce(s) Supporting Document(s) WBC 8.6 10*3/uL (4.1-11.0) [facility] [place] RBC 3.88 10*6/uL (4.00-5.40) L [facility] HGB 11.0 g/dL (12.0-16.0) L [facility] HCT 32.4 % (36.0-47.0) L [facility] MCV 83.3 fL (80.0-95.0) [facility] MCH 28.3 pg (27.0-32.0) [facility] MCHC 34.0 g/dL (32.0-36.0) [facility] RDW 15.7 % (10.5-14.5) H [facility] PLT 213 10*3/uL (150-450) [facility] MPV 8.7 fL (7.1-10.7) [facility] NEUT % 71.5 % (35.0-75.0) [facility] LYMPH % 19.7 % (16.0-52.0) [facility] MONO % 6.1 % (0.0-8.0) [facility] EOS % 2.0 % (0.0-5.0) [facility] BASO % 0.7 % (0.0-4.0) [facility] NEUT # 6.1 10*3/uL (1.8-7.7) [facility] LYMPH # 1.7 10*3/uL (1.2-4.8) [facility] MONO # 0.5 10*3/uL (0.0-0.8) [facility] Eosinophils [#/volume] in Blood by Automated count 0.2 10*3/uL (0.0-0 .5) [facility] BASO # 0.1 10*3/uL (0.0-0.2) [facility] ID Date Data Source [id number] 10/09/2019 02:02:09 PM EDT [facility] Name Value Range Interpretation Code Description Data Marva rce(s) Supporting Document(s) POC NOVA GLU 268 mg/dL (70-99) H [facility] [place] [facility] ID Date Data Source [id number] 10/09/2019 09:53:08 AM EDT [facility] Name Value Range Interpretation Code Description Data Marva rce(s) Supporting Document(s) POC NOVA GLU 153 mg/dL (70-99) H [facility] [place] [facility] ID Date Data Source [id number] 10/09/2019 09:09:42 AM EDT [facility] Name Value Range Interpretation Code Description Data Marva rce(s) Supporting Document(s) &PDF [facility] NAKTUq6aDcNNVoQa98/AFKuvJHZuj5MjHCyrVGz3NZctWWMsS5HswLloPATTVmoDX87KKLMRSSaIEhME yZW [file] 2aE/biVVzXHY+Jv5SMyM/Sebastián/knLaD/VzaRI9vmpPMjsoN/Cb+FdD1tTXFeYxrVcErCyXX/vDdfy2jK [file] ICAgICAgICAgICAgICAgICAgICAgICAgICAgICAgIC AgICAgICAgICAgICAgICAgICAgICAgICAgICAgICAgICAgICAgICAgICAgICAgICAgICAgICAgDQogIC AgICAgICAgICAgICAgICAgICAgICAgICAgICAgICAgICAgICAgICAgICAgICAgICAgICAgICAgICAgIC AgICAgICAgICAgICAgICAgICAgICAgICAgICAgICAg ICAgICAgDQogICAgICAgICAgICAgICAgICAgICAgICAgICAgICAgICAgICAgICAgICAgICAgICAgICAg ICAgICAgICAgICAgICAgICAgICAgICAgICAgICAgICAgICAgICAgICAgICAgICAgDQogICAgICAgICAg ICAgICAgICAgICAgICAgICAgICAgICAgICAgICAgIC AgICAgICAgICAgICAgICAgICAgICAgICAgICAgICAgICAgICAgICAgICAgICAgICAgICAgICAgICAgDQ ogICAgICAgICAgICAgICAgICAgICAgICAgICAgICAgICAgICAgICAgICAgICAgICAgICAgICAgICAgIC AgICAgICAgICAgICAgICAgICAgICAgICAgICAgICAg ICAgICAgICAgDQogICAgICAgICAgICAgICAgICAgICAgICAgICAgICAgICAgICAgICAgICAgICAgICAg ICAgICAgICAgICAgICAgICAgICAgICAgICAgICAgICAgICAgICAgICAgICAgICAgICAgDQogICAgICAg ICAgICAgICAgICAgICAgICAgICAgICAgICAgICAgIC AgICAgICAgICAgICAgICAgICAgICAgICAgICAgICAgICAgICAgICAgICAgICAgICAgICAgICAgICAgIC AgDQogICAgICAgICAgICAgICAgICAgICAgICAgICAgICAgICAgICAgICAgICAgICAgICAgICAgICAgIC AgICAgICAgICAgICAgICAgICAgICAgICAgICAgICAg ICAgICAgICAgICAgDQogICAgICAgICAgICAgICAgICAgICAgICAgICAgICAgICAgICAgICAgICAgICAg ICAgICAgICAgICAgICAgICAgICAgICAgICAgICAgICAgICAgICAgICAgICAgICAgICAgICAgDQogICAg ICAgICAgICAgICAgICAgICAgICAgICAgICAgICAgIC AgICAgICAgICAgICAgICAgICAgICAgICAgICAgICAgICAgICAgICAgICAgICAgICAgICAgICAgICAgIC XhIYLhPVd5K5wfTNZnIYVkDB8nZRh8Sh2+PWvOOvAmHPM2ihDusU9AVJ1vb6TyHKchEDLoh9OuECu7EF 8HGPRgDRxjZG6TJSaoiy4SVDKaJMGqdWJAs0eaGoXh NLD3KPSdJbfgAP8LBITqQ8rinlSxJCZwTNOUZSzuJAQJEZzxOOAOEF6GBoVrX0KnsT16JTNTEo7+DQpl ytGiYicJUkS8BJVwu3EpYEk4VW9UMTPaTMpyEN1WLYEgiH0bTYigLI1XGnHeFILnHYYKUuCaV47yhTOt JDe3Z9WwOoPyJBCfKllbHDCnYFdqMvFlQGBmYbMqXH ogID4+ID4+GQnkHS7SNXtidnPsMPUuNc9GBMCaIQW3RXVbqLYtRsRhWIMMBHdkYF3UpWKaVPI6jO4vKH juLXXrVTGkS0pAYiXuvTzlTP78hPyzjdJlgNIiOOy+Ce6XBF8ws4BuZKl5abTeDYvlJGI6JRfpXHVeVJ QcAYYeIYQ4RXN5RNFZEeHxEUBnGPGqLMcdUBIiAGGh kr1RUQSsFUM3WttmKLFsRJWjYVGeMVigKKCuHGD7NeR7QYEaEDXwGR9OLgCqMBVqZQHnCRjlCLSeUGNr zs1FQNEcKVBmKvRxXHEwAVTgVJZgDIorVYQcLRAmINMrLBVjQHMaEW3AVwMfLQQtIIZpHfwlZESzMBYz aw0OENKlHJEbBKX8OEFbMQMyYFDmDVrlEWGmQPG9BE e7XAFhXYTsQD8LMeOlQSGzKRp8LCJuWLDoQPNwva9RFMVaHUGoRUP8RyUuQTHiIRAdSZjkHKXxPFC1DD F0VDHwCAElEC1EVuYtTQPoGXvhLkCfJWXaSKKkok4RUHMsGKFaNPc1ENYvSEMkGVIlIZbwSUTfSYGnAE nmWTBxNPUaIS0YHxMzYLBmTXJaFmWqBYEuTSCgnh0J XDXcCYUyCLEwOWDkWOZwLNCbOQafTCKzKSLgXOX3AYOyFBFgGY8TYaAdYXTfNRG4UMGsLCMxLNAndf8Y SBRhYOEsUdksAoZmDUImHXTaCEnkNAKkFTJvLSHmOUTvHIScNC4ZBuHzGLWzRoT4SbTzTSNcENFnqr3J VQYuTDMlYPPeIOWmJQJjPDZmLNdoRBDmSDM9NrO0NN MyGHBoTB8UCwBiHSXwVgBwMZRtHWNcUVEwdf1AEVHnZYOfAsNsOPAtFIPgIYYqDUjdSUFfZRL2UDW6BQ FxEMSfIH3GIlDuITJgZwkiIrctBZUyQSMwod1XXXSaHFO5LFY4PGIrULZvGZHdRLqoTJQmFMD7ONilYU VvEMFsLO7WTcKxDBTkNYolHsMlNXMzJMYtpk8GIHQq PGS0JzC2BWPwBLLkIBSwHLmaPZXoQXI9QnB2OKZdXIAyPO7NQxYxGOEeMrT7WFzcUZHuZHDmbu5VSANn TBL9MtQ1QFYoEREmHBHaZAulZAJcGEE7LnM7EWKvHZUmFD8HOdRrOGTcRlV0NSasWEByJUQlui2UoRVh hUekev0ULLlRPi5WuDaiFNW1MStoAp1cnFNvCaIqQI GKHz2GeyNcLEZiDVDPIDbfSXPgISBzIRh1OJB7TnYbCKx9GPt0YVW7KBCeCmUyHPXeVSTiOnH3VoBcXJ G6SunaH1F9QemlVEX7Xxs4HVAmFOGiToGqNZK+QR3nXBi+Os0Fh4QzrjT8obUpEJi0UqCdYA9SCBYUV7 YNCg== ID Date Data Source [id number] 10/09/2019 08:19:31 AM EDT [facility] Name Value Range Interpretation Code Description Data Marva rce(s) Supporting Document(s) EKG [facility] FKEYEn9oXwGTRtFwl3TzDjYlPZFtFS9bgov4H6M1bTNzF8QxvFUtm7clL5EoL0HrLGKfOZWCEH0EqYFo jb2 [file] njPQHkhmBoncbpSLR73Gu2jq7+leigha/R1gsUDpN8UG5MeqF/MBdqd9NOsM4or6+leigha/I9ecQgoaalkjGO 84hsFrX1Q04olovTjdzdPHYq2m615gdv1Hmq5xv0TxDl4//job service specialist/MVtrDxum53ggiPWmgTLA6y0obMIJrW [file] Jsj17vcueaVHOjc5rFwXtsrz35sZ5ipwh/Nuñez+4f7q1wnOidJ2woJJ5zrW25OR65SrzvXNnQvkkyxv+t5 u/fm4Giwalva+tI4rM2JdDiI5fDCbA02yYEEK7TGbX GPA32aGBDQVnCpeRxtIO57rx1cSm+VpVyRLi48mw9kuubsAMsDB4DBXwJDHVKgRLvSq/LvUQj8x7aMft uwAvvNQdSDkCPdCGngP4zJebslsJrpeMbMwtqvwDoezrbBTGxlvkKeL1dzdQAbAfZQporrD6NMLMICl6 fs00vjb3L2eajTv/SoBttl99iOwPme5FwRz9XrheP7 X9KlLHstmqmNmh6Fco1G+fSabzeuU0JWeMGTd5/0MTsPUUWM3NO20wtjuZehg1hN9QYC3OkvVoIP/TKS 0z5wJBw44QCDtGZaieiYOAKsdvEI1ROaYa+7+GQc/c9nSwvep2dzH8H++lx88o7+jlYQ0hlp8lEFAC66 Nj2ARAhSs/ZL0ph+tgP7r9FbtY0bDvCWdzn4Vivjsr gQoS8g3uENbuvrHwyi2b5+Q24e5NHU8KSaTurLxi64zQgibihXCaYsozs2riHQsQ/HW5Iv426h62mBim oWNfriCWNeDER62o4aZhkuOtxUJpQSpyTIO0juY1scnP/ex2A3wfuQ7e5Wgjnq4cBRLGO0Eo3yO6Arc/ OeNh+wxIIT37y+wlhxKuvw6mOkx/alLV1eI1DCgLpZ 1nFtP8KHqqONhvv7BqNqKazMuAOMVYJrtjLQ8DvYSAI3+K3oux3tRkv6kEpPSq58gFLrjojwflEpe9yi nXfgyXeJlpOPaqr1cLVEjssVSaYTWpisXX778y252Lw+odz8e19a1geehiPPiWzogRRiwnQ7b+x3PeNu 1kjE6ZssmZ7zNBRl+h948qBlMis1m/loretta/bIUfqW4bM [file] +DCW+DDW+ALEXANDER+TBW+TCW+ONwE1DfK5rAVkYoP0a76RhY/Ym+BXtBA88wD+ooLg2Jh1zkp453HDrkuyBW iZ608dNsTvp8mebzfeZDLq91oyFrrtFvMi4KqpQkrk jo9UURzgBZCrVPsyXu8i3Syr6CjB1xAIRwyMRoxIEAVPkNUPt21W/pCvwm7l/8gr58pE106HggCafr8e K/zXM72CxwJWE/S/nWAfB60Ya3U2MqhjUC4Qx/yQE5QBm1Bw9dlFa0+SncH+Ov74YbqR+e+dfIX7jRz3 F4I41Ho6aDEwDi74ASc3wsj1KfCH71/ER3e9P1k1a+ AztmmPh03upUreWg5tOTHTtykO/AEyxCG1G115XwJ+0+kOIFtTT90Ug4u/hwcCSw2f39+j5BpDHgOwTF 5/9wgr0NXpuL2vreIe7vJA5znschNmu4j+Y28P2PY/cf1nX/Gbz+00IMh9r8Gev4H15t08apkeozrCrg HvNr9++V94d/zs2zFhs1M50+FEH4O9+/N/vAv/PtCq Bzw8Nzk61LwoH/06dswcsX1A02bXPzOcL91D6h/FriS565531O2uB/o9tpjpdSlCpAS6RWNe/7HiriA5 4cnPJqJ6uUeCLPD66AudSQOhfL8wFGg+vc13JI4/g0rmTUW+0G2qF8YPnWtf6LyKar6pZ/wh505t+Hvf oCYASd6SNBGn7Hg6y2SmDoxnZ/CfQj92CSXV1qAISc tk6w3J4xkBtdby322kP7s9i16CX+sF3P4G+tqxsdd4pW5H+70+XIi/wq51Y2U1fv/7Wu8lIX/6u63H/4 +valentín++JnyWxebLw2BJomMU/URKcCQnCaWo5BV1h+sF9GolJwnkIzu+BsHYa+xCnuVY+inR6kySsYq9xdh [file] MzUgZiAKMDAwMDAwMDAxNiAwMDAwMCBuIAowMDAwMD RoVQe4NAHwLPKxUA8wBhSdYWFrYYLeJIYuEQAlIVPmpiXVIWKjVUKrCHQ8KMMwSDEsQDMiYVofQILmGR OkMQG6RLYpVKUbTW3wImJlIXZlWNI8IyPaBENcMNJxpsNIKADuDWWqJFM7QUKzZPUhAYTjGBbwGBGyOL DwAjI7PQJhUDMjPG5jCpTfDGYfSNX3OZAuDLInOWEu czZLHIWdLXJvKNc1WlVcDWYdHJTjCRyeGHVsHJZcFYgeYGCiAPSiCW1vMzQjBGEpGUBvVVJeMGZxASVv ozIYOKGgTDEoQYC9QkQtIOTiGFJbJQuzSXGgMOWaDLN2IJNmVDVhVY4iPxHpBGBdQQDlLBBoYPIqNUTf biAKMDAwMDAwMTYwOSAwMDAwMCBuIAowMDAwMDAxNz F7AKStFVJkOH4zQaQiUYHsYDS8QRWtJBGuTLZtxxEETRWxKXToNYDeOHN5NAEtNXRpOFi2ugIctKSnPj a0Ln7FoIcjJFM9Oh7WhxDcOPCqXKKVUa0Do781XZCgOJTLWnf+QipbfDGimAfoBAKHXTV5NmiMCYITY8 Y= ID Date Data Source [id number] 10/09/2019 07:30:42 AM EDT [facility] Name Value Range Interpretation Code Description Data Marva rce(s) Supporting Document(s) SODIUM 139 mmol/L (136-145) [facility] POTASSIUM 4.2 mmol/L (3.6-5.2) [facility] CHLORIDE 107 mmol/L (100-108) [facility] CO2 24 mmol/L (22-31) [facility] ANION GAP 8 mmol/L (7-16) [facility] UREA NITROGEN 28 mg/dL (7-24) H [facility] CREATININE 1.37 mg/dL (0.60-1.00) H [facility] BUN/CREAT RATIO 20.4 RATIO (10.0-20.0) H [facility] GLUCOSE 131 mg/dL (70-99) H [facility] CALCIUM 8.8 mg/dL (8.4-10.2) [facility] GFR 38 ml/min/1.73m2 (>59) L [facility] GFR ( AMER) 46 ml/min/1.73m2 (>59) L [facility] GFR INTERPRETATION [facility] --NORMAL KIDNEY FUNCTION OR MILD DISEASE - GFR >OR= 60CHRONIC KIDNEY DISEASE - GFR 15 - 59RENAL FAILURE - GFR <15 Est. GFR calculation based on the MDRDstudy equation, which assumes a steadystate for creatinine. Est. GFR should notbe used for medication dosing. ID Date Data Source [id number] 10/09/2019 06:51:00 AM EDT [facility] Name Value Range Interpretation Code Description Data Marva rce(s) Supporting Document(s) WBC 6.2 10*3/uL (4.1-11.0) [facility] RBC 3.81 10*6/uL (4.00-5.40) L [facility] HGB 10.7 g/dL (12.0-16.0) L [facility] HCT 32.4 % (36.0-47.0) L [facility] MCV 85.1 fL (80.0-95.0) [facility] MCH 28.0 pg (27.0-32.0) [facility] MCHC 33.0 g/dL (32.0-36.0) [facility] RDW 15.3 % (10.5-14.5) H [facility] PLT 204 10*3/uL (150-450) [facility] MPV 8.8 fL (7.1-10.7) [facility] ID Date Data Source [id number] 10/08/2019 06:19:42 PM EDT [facility] Name Value Range Interpretation Code Description Data Marva rce(s) Supporting Document(s) POC NOVA GLU 212 mg/dL (70-99) H [facility] PERFORMED BY [facility] CLINICAL STAFF ID Date Data Source [id number] 10/08/2019 12:21:58 PM EDT [facility] Name Value Range Interpretation Code Description Data Marva rce(s) Supporting Document(s) POC NOVA GLU 310 mg/dL (70-99) H [facility]IN[facility] STA[facility] ID Date Data Source [id number] 10/08/2019 08:48:14 AM EDT [facility] Name Value Range Interpretation Code Description Data Marva rce(s) Supporting Document(s) POC NOVA GLU 173 mg/dL (70-99) H [facility] ID Date Data Source [id number] 10/08/2019 06:55:46 AM EDT [facility] Name Value Range Interpretation Code Description Data Marva rce(s) Supporting Document(s) EKG [facility] GARSJe1hWaNCIjHvn7PsOlDoLWWfVI3wclp6E4T6aXNzJ0EtkTJzx8lqG3SkU6KoXTExRPMHOP7GqJWk jb2 [file] L/MPiw/ks6Gd9P0OrR/N5MPmh+nnVz62+McW/9hSx/Aaron+HzSMrvXjY+ZM5kjpa+mH3Y+Valentín/bY3n6akV HpdegR/S7IJjr94f5u2Gks+42R0oNb7O/GNm9ncLprfbX6yP+cwP0w+tO2oo0u6KO9lBni1rCc5rM2wZ 631N1q1rvWn/vxfX7pgRmppw9RKbLa81vv/GKVx/mT I/n+uF9RsfI/IOb6CWttOEh4jVI64nzWDGxPtSH0t4UfQXYEDO+HFVSQZ+XB2ZgR+/jJ9l6tkh8Ckmq8 mXiApUU3SPet5qhA+valentín+fVu/HZqfH60L503pdz0v8Vnci4CxCg5qlImgO9TTQ0W7boHMlv8rkX+PE30/ [file] [id number]+d1YC/9O9pkhblSe1u660qd1G/v4+a0HyD//N9IPl+L8nfGi4t0+SnX//mPhS34r/jewel inspector [file] nwNUYCBHQSHYAtyoGNkGUvOARGBMSNBcORH6Usd2NP ddT8M0KhpbA7OqTM2XW8FzPWQzBLMCTBJgthXvSO3PibDdwV3nOVgDRQCZRCeOZFmcKyW5o88bjaPBMG XvVMEeVMjwBSIwGMEbELBwVWIcHQPrSAJvYWLbQR3EI7EcWGTkTUNMOQI8s6TvEFKdgfqcsjanOd2rcm RvYmo+OkxpNKDzh5KgHVtbO8O5lOKvT4KgN5OtHE6M fOSiKFrkXNRvOECvDXQmJ211ruVrPN9+RZ3dk8HiNwhkPXYYGJOeTONsIZVcCTK8SqOqBWGhWOKhOZUf UaD9IkPkLjYXAGJfILX7VnE7DwRvQULrVYBmKPtiMTKyCHYdEbC6KOEmJBEcXS7rJqBjLOZtWFF7DsUg YGGbHNNfclDEFNAqGZLrWMBnUZC9PGArQMDaVHzpUI FbIPZdYOG1HMGaHNInBO2qGxSmAVUqUAGlPediSSPbIEArisCTWLCtUUYqAMR4QmNgOYJlSPSsMMbsDQ MmFXMeGee7ODWxWRAgAK2qAeSlYJMsCLM8SZypAVFyPYSwauIOSJSfMSCwEXRlJkYjKIFfHMDlPXqnMJ GgAJSqNdPrISLnWTEaON9iKlKiQEFvYCF8HCQqIFPg ULYrjjMRPUFoLTOiLCm0YKCqETObWQWmTOglPYGhSHBvTYX3BZShQWQsXW8xOpOnSCNlVOOoTNQyJAZs FCGdhcKSZFRhNLTkUQZ6EPNzMVOmIQIkXSxwGDQyIEJaEyt1HAWyHMOeFM8oSkHlGAZsFXE5DAYfIPHq OJSkrcPNBIJnMLC5EvW8WSSdFRGpWPMeIWafSVQvRH RvCtU2YQAaZYXsBF9zUbNhIHZjVDR6ZgEbQLBiOEPbruXAUCPbYPGqSHV2XvAjLQCtXLLzNEjsDGHkDI LkZCXfWZD2AQW6WBRjOhElBOkaSVLVSFgVS8CsmlYkAgWJC6rzAo2zYcIoXPHRW4Bok8WmSNDmFWJKPx 4+TyW3LYC4jWSjRtb0Yxm7UqxqIIMZBq== ID Date Data Source [id number] 10/08/2019 06:55:37 AM EDT [facility] Name Value Range Interpretation Code Description Data Marva rce(s) Supporting Document(s) EKG [facility] MYNAZb2kUoRWIaMdl8PpKjTpHDSqIF2dqoz7Y0T1iAKkF9HfmXVxn6efN5KmU3HiIKXfGHDZVH7ZqSBr jb2 [file] q9E4PD35F4WM7uICCr/INVISIBLE BRACES ORTHODONTIST+Arr1PSYP5I5S+z7gnRzd [file] n5AnFWGiFAVKNx1+HfR8NLO9bOJkEvo2NLPxYCftWUITBa== ID Date Data Source [id number] 10/08/2019 06:37:56 AM EDT [facility] Name Value Range Interpretation Code Description Data Marva rce(s) Supporting Document(s) SODIUM 137 mmol/L (136-145) [facility] POTASSIUM 4.4 mmol/L (3.6-5.2) [facility] CHLORIDE 104 mmol/L (100-108) [facility] CO2 26 mmol/L (22-31) [facility] ANION GAP 7 mmol/L (7-16) [facility] UREA NITROGEN 26 mg/dL (7-24) H [facility] CREATININE 1.19 mg/dL (0.60-1.00) H [facility] BUN/CREAT RATIO 21.8 RATIO (10.0-20.0) H [facility] GLUCOSE 125 mg/dL (70-99) H [facility] CALCIUM 8.6 mg/dL (8.4-10.2) [facility] GFR 45 ml/min/1.73m2 (>59) L [facility] GFR ( AMER) 54 ml/min/1.73m2 (>59) L [facility] GFR INTERPRETATION [facility] --NORMAL KIDNEY FUNCTION OR MILD DISEASE - GFR >OR= 60CHRONIC KIDNEY DISEASE - GFR 15 - 59RENAL FAILURE - GFR <15 Est. GFR calculation based on the MDRDstudy equation, which assumes a steadystate for creatinine. Est. GFR should notbe used for medication dosing. ID Date Data Source [id number] 10/08/2019 06:08:57 AM EDT [facility] Name Value Range Interpretation Code Description Data Marva rce(s) Supporting Document(s) WBC 6.6 10*3/uL (4.1-11.0) [facility] RBC 3.64 10*6/uL (4.00-5.40) L [facility] HGB 10.3 g/dL (12.0-16.0) L [facility] HCT 31.0 % (36.0-47.0) L [facility] MCV 85.2 fL (80.0-95.0) [facility] MCH 28.3 pg (27.0-32.0) [facility] MCHC 33.2 g/dL (32.0-36.0) [facility] RDW 15.4 % (10.5-14.5) H [facility] PLT 200 10*3/uL (150-450) [facility] MPV 8.5 fL (7.1-10.7) [facility] ID Date Data Source [id number] 10/08/2019 12:59:33 AM EDT [facility] Name Value Range Interpretation Code Description Data Marva rce(s) Supporting Document(s) TROPONIN I <0.05 ng/mL (<0.05) [facility] Less than 0.05: Myocardial injury unlike lyGreater than or equal to 0.05: Highly suggestive of myocardial injuryCorrelation with rise and/or fall ofserial troponins, clinical symptomsand ECG changes is necessary. ID Date Data Source [id number] 10/07/2019 05:48:59 PM EDT [facility] Name Value Range Interpretation Code Description Data Marva rce(s) Supporting Document(s) POC NOVA GLU 175 mg/dL (70-99) H [facility] ID Date Data Source [id number] 10/07/2019 05:53:05 PM EDT [facility] Name Value Range Interpretation Code Description Data Marva rce(s) Supporting Document(s) TROPONIN I <0.05 ng/mL (<0.05) [facility] Less than 0.05: Myocardial injury unlike lyGreater than or equal to 0.05: Highly suggestive of myocardial injuryCorrelation with rise and/or fall ofserial troponins, clinical symptomsand ECG changes is necessary. ID Date Data Source [id number] 10/07/2019 03:45:54 PM EDT [facility] Name Value Range Interpretation Code Description Data Marva rce(s) Supporting Document(s) POC NOVA GLU 108 mg/dL (70-99) H [facility] ID Date Data Source [id number] 10/07/2019 04:24:12 PM EDT [facility] Name Value Range Interpretation Code Description Data Marva rce(s) Supporting Document(s) TROPONIN I <0.05 ng/mL (<0.05) [facility] Less than 0.05: Myocardial injury unlike lyGreater than or equal to 0.05: Highly suggestive of myocardial injuryCorrelation with rise and/or fall ofserial troponins, clinical symptomsand ECG changes is necessary. ID Date Data Source [id number] 10/07/2019 11:58:36 AM EDT [facility] Name Value Range Interpretation Code Description Data Marva rce(s) Supporting Document(s) POC NOVA GLU 131 mg/dL (70-99) H [facility] ID Date Data Source [id number] 10/07/2019 11:15:03 AM EDT [facility] NT INFORMATIONPatient MRN Name Date of Age Gend*PT [id number] Mireille Rodas 1945 74 years F IPPT Location Admission Date/Time Visit ID Attending [id number] 10/06/191856 --- Maria Williamson MD([id number]) EPI ID CSN Admitting Provider [id number] Melany Livingston MD([id number])CARDIOLOGY CONSULTATIONName: Mireille Rodas Gender: femaleDate of : 1945 Age: 74 yearsDate/Time of Admit: 10/06/2019 6:57 PM Code Status: Full CodePrimary Care Provider / Referring Physician: SEN CarneyPInformant:HISTORYCHIEF COMPLAINT: No chief complaint on file.HPI:This patient is a 74 [facility]. She said that it resembledprevious ischemic pain. In March 2019 she had a complex coronaryintervention in the proximal right and balloon angioplasty performed in thedistal right. She subsequently had a staged drug-eluting stent placed to theNDD. That she had additional intervention done in April 2019 on the rightcoronary. They found her to have an elevated troponin.Her prehospital meds include aspirin, Lipitor, Coreg, Plavix, Nitrostat,Aldactone, and trandolapril.We do not have a recent TTE to evaluate LV function. Ventriculography at cathin March 2019 demonstrated basal inferior hypokinesis with an EF estimated tristen 50%.Lab studies reveal creatinine 0.93 and GFR 59. Troponin I is upper normal x1and normal for the second reading and the N- terminal proBNP is 564. Hemoglobinis 10.7.PAST HISTORYPMH:Past Medical History:Diagnosis Date Abnormal EKG [address] bell, baseline EKG is sinus rhythm, frequent PACs, poor Rwave progression, nonspecific ST-T wave abnormality, repolarizationabnormalities. Anxiety Cellulitis of left toe Coronary artery disease Diabetic neuropathy GERD (gastroesophageal reflux disease) Hypercholesterolemia Hypertension Onychomycosis Paronychia of great toe of left foot 04/22/2019 Peripheral artery disease Type 2 diabetes mellitus Wound healing, delayedPSH:Past Surgical History:Procedure Laterality Date BREAST BIOPSY CARDIAC CATHETERIZATION N/A 04/24/2019 Procedure: Percutaneous coronary intervention; Surgeon: Raymond Casiano MD;Laterality: N/A; CARDIAC CATHETERIZATION N/A 04/22/2019 Procedure: Left heart cath; Surgeon: Raymond Casiano MD; Laterality: N/A; CARDIAC CATHETERIZATION N/A 04/22/2019 Procedure: Coronary angiography; Surgeon: Raymond Casiano MD; Laterality:N/A; CARDIAC CATHETERIZATION N/A 04/22/2019 Procedure: Left ventriculography; Surgeon: Raymond Casiano MD; Laterality:N/A; CARDIAC CATHETERIZATION N/A 04/22/2019 Procedure: Percutaneous coronary intervention; Surgeon: Raymond Casiano MD;Laterality: N/A; Cardiac stress test For cardiac stress tests last one was in 2014: No stress inducible angina.Electrographically inconclusive for detection of myocardial ischemia due tobaseline repolarization abnormality. Reversible very small basal inferior walldefect consistent with regadenoson inducible coronary flow no distribution inthe right coronary artery territory. Normal LV wall motion Cataract surgery CHOLECYSTECTOMY Myocardial infarction 1992 OOPHORECTOMY Peripheral artery stenting Right leg TUBAL LIGATION WOUND DEBRIDEMENTFH:Family HistoryProblem Relation Age of Onset Diabetes type II Mother [place] ([place] Mother Heart disease [place] Brother Age 59 [place] ([place] Brother age 46 Heart attack Sister age 72PSH:Social HistorySocial History Narrative Patient has family members she lives withSocial HistorySocioeconomic History Marital status: Spouse name: Not on file Number of children: Not on file Years of education: Not on file Highest education level: Not on fileOccupational History Occupation: retiredSocial Needs Financial resource strain: Not hard at all Food insecurity: Worry: Never true Inability: Never true Transportation needs: Medical: No Non-medical: NoTobacco Use Smoking status: Former Smoker Packs/day: 1.50 Years: 30.00 Pack years: 45.00 Last attempt to quit: 1992 Years since quittin.4 Smokeless tobacco: Never UsedSubstance and Sexual Activity Alcohol use: Not Currently Comment: Occasionally Drug use: Never Sexual activity: Not CurrentlyLifestyle Physical activity: Days per week: Not on file Minutes per session: Not on file Stress: Not on fileRelationships Social connections: Talks on phone: Not on file Gets together: Not on file Attends voodoo service: Not on file Active member of club or organization: Not on file Attends meetings of clubs or organizations: Not on file Relationship status: Not on file Intimate partner violence: Fear of current or ex partner: Not on file Emotionally abused: Not on file Physically abused: Not on file Forced sexual activity: Not on fileOther Topics Concern Not on fileSocial History Narrative Patient has family members she lives withReview of SystemsConstitutional: No fevers, chills, weight loss or night sweats..Eyes: No blindness, double vision, or glaucomaRespiratory: negative for asthma, chronic bronchitis, hemoptysis, pleurisy,sputum production, or wheezingCardiovascular: negative for claudication and as stated in the HPIGastrointestinal: negative for constipation, diarrhea, melena, nausea, orvomitingNeurological: negative for dizziness, gait problems, headaches and seizuresHematologic/lymphatic: negative for easy bruising, petechiae, or anemiaBehavioral/Psych: negative for anxiety and depressionEndocrine: negative for polydipsia, polyphagia and polyuria and temper atureintoleranceAllergic/Immunologic: No seasonal allergiesMEDICATIONS AND ALLERGIESALLERGIES/SENSITIVITIES: No Known Drug AllergiesMEDS:Medications Prior to AdmissionMedication Sig Dispense Refill Last Dose acetaminophen (TYLENOL) 325 MG tablet Take 2 tablets (650 mg total) by mouthevery 4 (four) hours as needed (Patient taking differently: Take 650 mg by mouthevery 4 (four) hours as needed for pain ) 30 tablet 0 aspirin EC 81 MG EC tablet Take 81 mg by mouth daily atorvastatin (LIPITOR) 80 MG tablet Take 80 mg by mouth daily carvedilol (COREG) 25 MG tablet Take 12.5 mg by mouth 2 (two) times a day clopidogrel (PLAVIX) 75 MG tablet Take 75 mg by mouth daily DULoxetine (CYMBALTA) 60 MG capsule Take 60 mg by mouth daily 04/21/2019 atUnknown time gabapentin (NEURONTIN) 800 MG tablet Take 800 mg by mouth [id number]/21/2019 at Unknown time insulin detemir (LEVEMIR) 100 UNIT/ML injection Inject 30 Units under the skinnightly 04/21/2019 at Unknown time Liraglutide (VICTOZA) 18 MG/3ML SOPN Inject 1.8 mg under the skin daily04/21/2019 at Unknown time Menthol, Topical Analgesic, (BIOFREEZE EX) Apply 1 application topically dailyas needed (pain) metFORMIN (GLUCOPHAGE) 1000 MG tablet Take 1,000 mg by mouth daily withbreakfast metFORMIN (GLUCOPHAGE) 1000 MG tablet Take 1,500 mg by mouth every evening nitroglycerin (NITROSTAT) 0.[address] 1 tablet (0.4 mg total) underthe tongue every 5 (five) minutes as needed for chest pain 90 tablet 12 pantoprazole (PROTONIX) 40 MG tablet Take 40 mg by mouth daily spironolactone (ALDACTONE) 25 MG tablet Take 12.5 mg by mouth daily04/21/2019 at Unknown time trandolapril (MAVIK) 1 MG tablet Take 0.5 mg by mouth daily 04/21/2019 atUnknown timePhysicalVITAL SIGNS:Blood Pressure: BP: 139/65 Pulse: Heart Rate: 84Temperature: Temp: 98.1 F Respirations: Resp: 16Admission Weight: Weight: 59.4 kg (131 lb) O2 Saturation: SpO2: 96 %Today's Weight: Weight: 59.4 kg (131 lb)PHYSICAL EXAMINATION:GENERAL: Well developed, well nourished woman in no acute distress and orientedto person place and time. There is normal affect and thought process.HEENT: No arcus, xanthelasma, or scleral icterus. Nasal and oral mucosa pink.Tongue well-papillated.NECK: JVP normal. Carotids brisk. No lymphadenopathy.LUNGS: Resonant and clearCARDIAC: PMI normal S1 normal S2 physiologically split. No gallops. No murmurs.No rubs.ABDOMEN: Soft and nontender without hepatosplenomegaly. Bowel sounds are normal.PULSES: Pedal pulses are intact and symmetricEXTREMITIES: No edema. No clubbing. No cyanosis. Skin warm and well perfused. Novenous stasis.MUSCULOSKELETAL: No deformities, good muscle tone, normal range of motionNEUROLOGICAL: No major sensory or motor deficits.DiagnosticsLABS:BMP:Lab ResultsComponent Value Date NA 140 10/07/2019 K 4.2 10/07/2019 CL 107 10/07/2019 CO2 25 10/07/2019 ANIONGAP 8 10/07/2019 CALCIUM 8.4 10/07/2019 GLU 117 (H) 10/07/2019 BUN 18 10/07/2019 CREATININE 0.93 10/07/2019 GFRAA >60 10/07/2019 GFRNONAA 59 (L) 10/07/2019CBC with Diff:Lab ResultsComponent Value Date WBC 7.6 10/07/2019 RBC 3.82 (L) 10/07/2019 HGB 10.7 (L) 10/07/2019 HCT 32.6 (L) 10/07/2019 MCV 85.4 10/07/2019 MCH 28.0 10/07/2019 MCHC 32.8 10/07/2019 RDW 15.2 (H) 10/07/2019 PLT 218 10/07/2019 MPV 8.4 10/07/2019 LYMPHOPCT 25.0 10/06/2019 MONOPCT 8.0 10/06/2019 EOSPCT 2.6 10/06/2019 BASOPCT 0.7 10/06/2019 NEUTROABS 5.2 10/06/2019 MONOABS 0.7 10/06/2019 BASOSABS 0.1 10/06/2019CBC without Diff:Lab ResultsComponent Value Date WBC 7.6 10/07/2019 RBC 3.82 (L) 10/07/2019 HGB 10.7 (L) 10/07/2019 HCT 32.6 (L) 10/07/2019 MCV 85.4 10/07/2019 MCH 28.0 10/07/2019 MCHC 32.8 10/07/2019 RDW 15.2 (H) 10/07/2019 PLT 218 10/07/2019 MPV 8.4 10/07/2019CMP:Lab ResultsComponent Value Date NA 140 10/07/2019 K 4.2 10/07/2019 CL 107 10/07/2019 CO2 25 10/07/2019 ANIONGAP 8 10/07/2019 BUN 18 10/07/2019 CREATININE 0.93 10/07/2019 BCR 19.4 10/07/2019 GLU 117 (H) 10/07/2019 CALCIUM 8.4 10/07/2019 ALBUMIN 3.7 10/06/2019 GLOB 3.4 10/06/2019 AGRC 1.1 10/06/2019 ALKPHOS 55 10/06/2019 LABBILI 0.4 10/06/2019 AST 23 10/06/2019 ALT 24 10/06/2019 GFRAA >60 10/07/2019 GFRNONAA 59 (L) 10/07/2019Coags:Lab ResultsComponent Value Date PROTIME 11.4 10/06/2019 INR 1.09 10/06/2019 APTT 25.3 10/06/2019D-Dimer: No results found for: DDAT, PROCALCITON, LACTATENT Pro- BNP : No results found for this or any previous visit.DIAGNOSTICS:IMAGING: Chest film demonstrated a large heart with normal vascularity, noedema, and no effusions.ECG: NSR with old anteroseptal and old inferior infarctionConclusionsImpressions:1. Rest angina pectoris with a very tiny elevation of troponin I2. CAD with recent complex coronary interventionRecommendations:1. Monitor serial troponins2. Change nitro ointment to Imdur 30 mg daily3. Begin Ranexa 500 mg p.o. twice daily4. Obtain TTE5. Defer Et[employer] Developer unless troponin levels rise dramatically.Thank you for this consultation.Dante JOVI Perezate: October 07, 2019Time: 10:42 AM Name Value Range Interpretation Code Description Data Marva rce(s) Supporting Document(s) ID Date Data Source [id number] 10/07/2019 09:19:23 AM EDT [facility] Name Value Range Interpretation Code Description Data Marva rce(s) Supporting Document(s) POC NOVA GLU 129 mg/dL (70-99) H [facility] [place] PERFORMED BY [facility] CLINICAL STAFF ID Date Data Source [id number] 10/07/2019 06:00:24 AM EDT [facility] Name Value Range Interpretation Code Description Data Marva rce(s) Supporting Document(s) EKG [facility] JVDPJc5qWiJUWdYkk3NaLsOqNONsTB5vfhw7F6X5jMFzG0MyhFZfq3cnG6YiO5JbWOQgEWDHOS8BmYMw jb2 [file] [id number]= ID Date Data Source [id number] 10/07/2019 06:00:09 AM EDT [facility] Name Value Range Interpretation Code Description Data Marva rce(s) Supporting Document(s) EKG [facility] SJXASy3rUeSAGwKca9FvGdUwPGIzBJ2kbwd7K4B4oSKoJ6VlrDCrw5nrT7GcX9JsXJPjOQDHSF2FpXSi jb2 [file] xo88fxdf022KQMp18vk2/79/vb34qNIbEyTX09C6Qs vAc7MjuA2Cvm+2v2D7i/Wn3LiShBKWA3w9P/xJGmM1UUUlEVBbuF9DtUrLWjPEmpSgGc3abKfZd2Dp1g ju4qqApY4pD/rP0r2py0M5x2ta5G39rx+/k8CUs9yQsrpbOQiXRPm9uMv+9EZEsxle+qA8kkewC7GQOC jbc22ElhlC/fqfRGmzORfo1a7U2CvxGdGaa4cDDrZ5 xxVeBPeRPPwmZ08z25u551oFnmH4VV3FFkjD/DMpZRVnbl8U8RRrUw8Z/CCLmM/hz357SjT5l42yKh+1 Wvehq7y3cki1z1a6gks5K3rdhjy4KC8JG2d/lEQsx/z/u9kqz3xhHm62T5+hq9dyEuGQEbUso5PuYFA2 l3FS7MVzfFUDBTkVINodr/+fsv7+bXdO/X29 mmnffH/K+5xgqQwU6fOXRy6OhByLUv7iJU+Y9u7l2a060khEfaZwM4zph39QiPI2r+qtX1xqVjoP11wE Vf622/e8u9471wxqH4PeGH/b7Y/D38c9rba2BvnIMW5eSZKyb2UANx87ubjqtx7zGu+W51uL8YouX0ce SWW9zCR+45jqB41G7bvp5c5gwfQUlnI9jjakhoYLhu f3iLfjEaxI+imSV/qmmE7yktFRMQUty9JJEtSlqvSY6y7hg+SV30V/Gm6N3HBQeDc4Oaav7bHX8pBIpl KG8e0zUw4Tvvtzm0xpzg+Cgq9SqfpfWkafynUAfG+s33JG+biP0pMWHl7BNzNMY5OtfvdLNe/a+6Px0y /GT4fK304YcihUFT83bpSS8s4ozmrtpkY+YfefBZ0w BeV6+IL0z55RbyuXU2jC4QTOaxusW2UrpiStefuq2HWYDmPK7gE82aGzmzmjP/LKPxe/u4h9D/2W F7Evoc/5NSpXpdoHaV9U6+6lKvCZ/08Eoct1jPpJk2561CocnriW1Abs/q3p6t+xLjsLk1m4U1OM428c M9X45awnEA/0KdsAAqWf4EGzdgVk1wQ7/Gu+81vz1U dV8ko/mx5z4cT2/G59se+Yz9+L9OC+pmqU8SGeSIx20/WnM7cniHjvcdItUjNVrhwdd73+2hlI5lm1Wi l8f8ur+by/7/8eO7V7u3pHh338z4YPp1NP6OJW5kHv8+CKRBQ07sbE6gGpl7Va428thlZkC8d5pinrO/ i71pG+g3Huz+76T7gNh8Ik7S+war05p5/sHeWBMtrt 95iTh8PWIyGaZO2th5X+oeIrHLBdll9sc1C94hTOAg/zzvVjbkY1O9PAi5mhpn8Kkd/vm+L8rAElqin+ 59Pyh40fLb/peerVxapsnu8brSjjS1n5eA1pDe/TcWqSQxXX0NOvEib8G7CVCCB7bnLBSmR/nyiv+4zk 1Xh/bf8dDLed8tCBbcZ97wjC8wbh17H38EMZKsoKeu 2K3h7fLwiI8xgya7nTu51t6NQRVg+4xRNXnlZhuuVWJ854NP905GlViaQrJr8roo9pci437Xb04Gs57G p4QAnymI8OU27wcVeH1goY5iJ3qslE3c7xrukI1AzC0cjPvfRb7lH+83w6svRUr92zxsG56BGb32KeEm oLZ4Rrnw6+zl3TFM46eYZAy5d+1tI1nFMuOHhGvwqb nMlfgNju863bT/9l7Qie70TL9uyJ5+LptkBjmWIHSq96tmIiu46p8d9TEquKqu7z6xVtxgrNT6fzcPpz aVpFCnFusk4fw4sPB52cpeJTjn3yZ4h7xzE3udp7RuLwdD1tg/2gL3G/7fb6/collaborative physician+8d9a/s+v/ehus56 jk2spxc0tVzwhlH/86Aac7jq66I45/Psfqypzxb0px LgmdAtAf7AdVbn8i72qtoq8Lv9gQrzwcUvmsVA3RPcQ8bq7Qgs6y7IutZJYQ203nIe871q2I8E7P5kPE gjgB6BEl193nSzg4q1zdEZDh668AkFrvX09RLp73xcxu+ancToUtmcf2d2pPqKc4BHgfQfWzNCWsgUJw i9968+2Issvpe6/gYiKY51TJfv2t9Q+gQSS5r6kxxR VvgQO93E0aKbortBDY8i1H4o5K5jzGPgTne69Ltps6OBgfXfhQJ8jYrIdznCgR8Q3WuTiqRuZPC8OAmf I60PxwHb+rO1E3BFek4sqibbNasJM842oKHX1o634oBapKLhxEKZJdWhzkRgD0VqA901G8Wxkeo490nJ pvZ51FCRlv+RehZ76jRpsQS0oXnNWqS3jYNHrFggZx CSyIeVfYstH577SSNz/FuimX329u802fCGKUM5BBLICOe7IX7Dny/TlW8SrvQ9jHl+/OsDxgHfaO+LEIGHA [file] 2cZpUtvVGvALA3oyeU3k2dReLqb+sQ/srOawto+lennox 12XbNItGLEJ6ZvvVNgOtEVxKt+s7jv3IWmcNFcpW93dclTa+E3SL6eYHxm2gAlE5/XLBE8A7jKjIguKK KAVnRQtnFEZeGoWODRoPMhWyY0hlS0EvK6lfAAfFzFA+TPU9WHfjsh12vnrBJQAlCJBiVXPaLM73GdLF HVQBzBDrG7VAwAMVtVCVeZdAL+zafBQ3LNrPGB/Jorge Alberto U4H7R7teTt7fexLXm2kCe52wICOoP3Ho7r5EwNl7VFliPeJBZ6+Uf7Jm0L3c4wSWFyZZbZFEGHev0qIk O8DCT1RiFmD5IAUJXbV6nlRcvYSxh/CGbMHoGmfLoInToOzQrJwEtIfooE23vSNGzneD9ahcJuRyHBCi QB2I1+GxCoWKG1dcF6UaZFy3SXQuqIFAEjB92G1HBB sbRyUxuoxkR4J2eDbTwSrTBi/+o1UPsHbQqVg3YdSBtQlanGikX8EnkXbpdkGpRef81lEfGPkKZpCwFq uuXl4xDQboCVBeKUQeWcpO8tYDyQtIxwP7CiuIGAx2ysDoW0CnCoNxZuZvYiSwUteWFN8qB9dUmb4lCC GcQlYMS9XVwKUADsA7xkSTEOa4U7MmUmN5v2kCVsyk lGjZ7mJEvqbXETM1aL8fTp/ZyTzKijKSLveRIkTxL+0YBmFXkEd86OTycsSlnt05AVV5upOUrRktJrH8 l/pc2UC+hv2KixTcFTaT+E+W0u80qTtCrFi7tNdkj3vyZ+dP3R4qLUBjjVmNV8F7ZtJH59doIMs5eYr9 2eU5fb9usialH8TEnekk2gNVhx6BeLutidC/bsduXg [file] NnOWW6mhWq0oIaKnOCYPM9Wjc4GtPQLeLOEVDv3+GtU1NFE3dQRnVcs5ShL0YxgiDIQAZg== ID Date Data Source [id number] 10/07/2019 06:00:00 AM EDT [facility] Name Value Range Interpretation Code Description Data Marva rce(s) Supporting Document(s) [facility] JOXPQv0pKyYDNcXup5UkIoUdJOSyMK3zwnt4J9I7iVGzP6NjvGLpk4ohE0QrD7ReNJYjMNWSRP6IfMOz jb2 [file] yTKmpHcTzm9au9NsAuEJ/Zg4Uve1HQUwHWyOHJ5pDqSbMU2O5l+job service specialist+MNt35h5B+uPg7cb1M++YF4caat [file] Y3FygsCX1fVIZM7dTGRZZd+/McLko1rxtuu35UGesK8jGoqzJbzIcxQ6O7DhSnsgdKBfS0RxJ7h21 jdcUJdpFmV2Dn0OeKt43Wtezn8kgItkboBc6EwMJJH hMcve0z1qJA72m98GMLOO5JzHTiNVb565HuRgkpYf8AX4PrGQ5F6iiIEIwQpjjpXuD7WU7Uh/VNU+oJK F0My5FKelJaJRiGb4M5zzUpvUAzhUnCQREh6gi/lG7DawNYHb8jgI0FwXTeAXgTfhhwqsSq/EEpzQ7HQ dwHGuZ24FmA2ipwtGJ3XRvF1fubqwJ71u9RpzcuurV 5XHcYpqmfJlHrS2cz51MeZ8TpdlLPYF714sFHycHh6NNUj2X/Om7H5oEaBTHPQo1cmp0KmmlX7xA8lsv Pw3gjCWi0UvOErKx1yfP8LWcGYtmbwsR6/QWBPfIycsLHd9XotnL1mg6bBi3VwFNhEseraf14xgS3wsw mFwscMy5oHrL23rjL8Q4Hf99OqVMMTjs1f18j8/Loretta+ 2zb28RaYA7SGt/tQUlUkvPjUGhxQY2vznde37csTrYeVtrcxTdTaXPdfkooP+ME572tw81fkf8vFx//T 16Wtzdk7/RGHUMzH8k2A1tf+X08ZE8/Qj0BAGs2ZNfy8o1TvGdJXQEu+moEsS0H8ZSc2c1IrP4YGfR18 ynDsdhoksyTj7fmTuhvkyvJM8X4GwCTgDYVTz89qJn Hi63dBusyZTFrqHqAmzUUTCMHTQKqxH9OgGHuB7TtLU2x9qQJSIqDw+oSRnNU8kxLgGTigIEsjNEhkDh 9kWm477np5Qh4BoF2eQnpdqHQ0iBrCHeIZh+V3h1PE+JS1rjMNStEJnj0tY5tgkymi0kC1d6OoSugaJR e/A8FE7bJc4g4HXyhJ89+ZusKDgp2IDjW8p2KdIbtm SBsWUpqm+vPk/RT/M65bVVYw+UNZaV3b2TlQKej4OFhwKnId0nW8vE0/wr706mtv7zYlNoPsPX9KcCr2 erFJZjy+VALENTÍN/h9bFi/y+BjsCY9+YRNBVzXe9IOseQh2HYCIHrnWC3qT8tvs8XCxKbnCgFun7KCP8+huLZ gwFRkewp/azIwesG68TtD2jL8ofyeFCMMmPA3odvfl ysKrxGCmSyx52noYIQubNWBZYeNTcfDddWexOiyvdVz3lKPLESVjrZQStBVTaj3PHauzRBs1KwfePP2A EVc7NjclWGnUIJvrINg5yXLhLhkFN9BhV3r2KTIhSLQdJUHN92uikH1BX77KjiYxY0PH2FqqSyiB9bOH trluLcHxNXTjvtpzBuxTaWoUf4wCfTQBXP9qULYevZ 2ctPyqdVG0lJ5RL+2ZBAvAHgIjcIJCUAkaQSegBBFlvVz/qeh7iyULMlu3oves07XXnfNDwLan2vQ8HZ 5Ox/JTNO6GYRlJ9EQdVdWb7+JESiAZnXvZx05Xd5wy58osRn4kb2ZxAsx5NMLDmmLoAep2yuuXc2kS9i Em3pnUpw5j5NPwIQbO0WJU07YOqYMPg5GxfNCE7dLa ZJ7edH1rKNpCl+HBuGTiVTt0Lan4X6P6XolNjvYIrHsSCwctgq8XqedjNdklk5cFSGYfiHf2POmefzhX H6l0MZrUaG7tKeLbPHYMnvLYse3IZVSumqZsCzgOVWZUcB8P9Ty3ahNjDGkwNnxWaVdIMPB+Cc9Uqkb4 NLuX0pOvWfxxdzS6FXrUyrGYf9kuuH0hf/gs+UJblq N/q1rpvQAsk/iSvvo69bi6RHjAeGTQjDvhYkK5p7Lq75xFFFBrxjl1DfIFTp1qiJ4KVpK6Pdw9olhovj d9lAh7J0fHuIYl5Ch+tuMOevlxApLTiOpmu3jii33VLiDoAlqGMDvVamxF3JUgUq86bWuSzepu59QqDR Or8sFTZ6wZ9shiQuckwMxSuh0MV9hgGb+486mL9akx oiNBWLhRXIAVpCtHhYBd+9DdCQpBJWgEnWAQTIIFEDkqDqAEEUxTp+jRWHETgx64Z5yFowYQTTWQETJY [file] l/eo6O5xLWcD+h81u5TOjHq0Hk6ywt/zcr+valentín/NbOPwWDr+Fw2/uaAw1PZEalawPiqPoGZbayBl0imUX [file] AgbiAKMDAwMDAwMTYwOSAwMDAwMCBuIAowMDAwMDAx BkR8JQGzOLYvYS8nGyIeIYUsWCI4EOGcPQDnTEHffcFGCLDzXMUjLXZpBHY6RTOhDFAsZKp7nbSdgWYb Xps3Mr0UmNtjTDI2Eb6IfjFiSLEvUIJULf7Oi068QFZlSZQFQhk+PgpzdGFydHhyZWYKNTUzMDcKJSVF T0Y= ID Date Data Source [id number] 10/07/2019 01:21:34 PM EDT [facility] Name Value Range Interpretation Code Description Data Marva rce(s) Supporting Document(s) MAGNESIUM 1.7 mg/dL (1.7-2.4) [facility] ID Date Data Source [id number] 10/07/2019 06:03:11 AM EDT [facility] Name Value Range Interpretation Code Description Data Marva rce(s) Supporting Document(s) SODIUM 140 mmol/L (136-145) [facility] POTASSIUM 4.2 mmol/L (3.6-5.2) [facility] CHLORIDE 107 mmol/L (100-108) [facility] CO2 25 mmol/L (22-31) [facility] ANION GAP 8 mmol/L (7-16) [facility] UREA NITROGEN 18 mg/dL (7-24) [facility] CREATININE 0.93 mg/dL (0.60-1.00) [facility] BUN/CREAT RATIO 19.4 RATIO (10.0-20.0) [facility] GLUCOSE 117 mg/dL (70-99) H [facility] CALCIUM 8.4 mg/dL (8.4-10.2) [facility] GFR 59 ml/min/1.73m2 (>59) L [facility] GFR ([facility] AM) >60 ml/min/1.73m2 (>59) [facility] GFR INTERPRETATION [facility] --NORMAL KIDNEY FUNCTION OR MILD DISEASE - GFR >OR= 60CHRONIC KIDNEY DISEASE - GFR 15 - 59RENAL FAILURE - GFR <15 Est. GFR calculation based on the MDRDstudy equation, which assumes a steadystate for creatinine. Est. GFR should notbe used for medication dosing. ID Date Data Source [id number] 10/07/2019 06:03:11 AM EDT [facility] Name Value Range Interpretation Code Description Data Marva rce(s) Supporting Document(s) LIPASE 138 U/L (65-230) [facility] ID Date Data Source [id number] 10/07/2019 05:25:41 AM EDT [facility] Name Value Range Interpretation Code Description Data Marva rce(s) Supporting Document(s) WBC 7.6 10*3/uL (4.1-11.0) [facility] RBC 3.82 10*6/uL (4.00-5.40) L [facility] HGB 10.7 g/dL (12.0-16.0) L [facility] HCT 32.6 % (36.0-47.0) L [facility] MCV 85.4 fL (80.0-95.0) [facility] MCH 28.0 pg (27.0-32.0) [facility] MCHC 32.8 g/dL (32.0-36.0) [facility] RDW 15.2 % (10.5-14.5) H [facility] PLT 218 10*3/uL (150-450) [facility] MPV 8.4 fL (7.1-10.7) [facility] ID Date Data Source [id number] 10/07/2019 12:24:09 AM EDT [facility] Name Value Range Interpretation Code Description Data Marva rce(s) Supporting Document(s) TROPONIN I <0.05 ng/mL (<0.05) [facility] Less than 0.05: Myocardial injury unlike lyGreater than or equal to 0.05: Highly suggestive of myocardial injuryCorrelation with rise and/or fall ofserial troponins, clinical symptomsand ECG changes is necessary. ID Date Data Source [id number] 10/06/2019 11:09:09 PM EDT [facility] NT INFORMATIONPatient MRN Name Date of Age Gend*PT [id number] Mireille Rodas 1945 74 years F IPPT Location Admission Date/Time Visit ID Attending [id number] 10/06/191856 --- Melany Livingston MD([id number]) EPI ID CSN Admitting Provider [id number] Melany Livingston MD([id number]) Attestation signed by Melany Livingston MD at 10/06/2019 11:09 PMPatient was discussed. Agree with A&P. ----ADMISSION HISTORY AND PHYSICALName: Mireille Rodas Gender: femaleDate of : 1945 Age: 74 yearsDate/Time of Admit: 10/06/2019 6:57 PM Code Status: Full CodePrimary Care Provider / Referring Physician: Samantha Carneyformant:Current HistoryChief Complaint: "Jaw pain and headache: these symptoms are the same as when Ihad my heart attack"HPI:This is a 74-year-old female patient with history of T2DM, hypertension,diabetic neuropathy, diabetic foot wound, PAD, CAD s/p complex intervention witha total of 4 LAN in the proximal right and balloon angioplasty in the distalright on 04/22/2019. Subsequently she had a staged LAN to mid LAD, andsuccessful complex intervention with LAN x4 to the mid right coronary artery atthe crux of the vessel and balloon angioplasty to posterolateral branch of theright on April 24, 2019. Patient was discharged on April 25, 2019 on optimalguideline directed therapy including aspirin, Plavix, high intensity statin,nitroglycerin as needed, ACOSTA inhibitor.Patient transfers today from [facility] with chest pain and elevatedtroponin.Patient reports that last night around 4 AM she was awakened with jaw pain,headache, ear pain. Her symptoms lasted about 30 minutes . These are similarsymptoms as last when she presented and required stents. She took all of hermedications as prescribed. She tried to check her blood pressure multiple timesand her machine was reading error every time. Around noontime she finallydecided to go to the emergency room.Patient denies EtOH use, kidney disease, history of major bleeding, illicit druguse, she has 29-wbzp-zywx smoking history quit 27 years ago.She denies chills, fever, nausea, vomiting, shortness of breath,lightheadedness, dizziness, syncope, presyncope, anosmia, ageusia, exposure toill people. She recently had a callus excision in her right foot. She had nocomplications. She was initially scheduled to have vascular surgery howeverthis was canceled. After her stents in April she was seen by hercardiologist.Work-up in [facility] included the following:WBC 7.1, H&H 10.9 and 34.5, platelets 246, PT/INR 13.6 and 1.07, glucose 67, BUNand creatinine 19 and 1.08, sodium 140, troponin 0.05.Chest x-ray revealed no acute cardiopulmonary diseaseEKG revealed sinus rhythm with poor R wave progression and nonspecific T waveabnormality. Patient was treated with aspirin 325 mg and transferred to [facility] for further cardiology evaluation and treatment.Supply Specialist: of Systems:Review of SystemsConstitution: Negative for chills, decreased appetite, diaphoresis, fever,malaise/fatigue, night sweats, weight gain and weight loss.HENT: Negative for congestion, ear discharge, ear pain, hearing loss, hoarsevoice, nosebleeds, odynophagia, sore throat, stridor and tinnitus.Eyes: Negative for blurred vision, discharge, double vision, pain, photophobia,redness, vision loss in left eye, vision loss in right eye, visual disturbanceand visual halos.Cardiovascular: Negative for claudication, cyanosis, dyspnea on exertion,irregular heartbeat, leg swelling, near-syncope, orthopnea, palpitations,paroxysmal nocturnal dyspnea and syncope. Jaw painRespiratory: Negative for cough, hemoptysis, shortness of breath, sleepdisturbances due to breathing, snoring, sputum production and wheezing.Endocrine: Negative.Hematologic/Lymphatic: Negative.Skin: Negative.Musculoskeletal: Negative.Gastrointestinal: Negative for bloating, abdominal pain, anorexia, change inbowel habit, bowel incontinence, constipation, diarrhea, dysphagia, excessiveappetite, flatus, heartburn, hematemesis, hematochezia, hemorrhoids, jaundice,melena, nausea and vomiting.Genitourinary: Negative for bladder incontinence, decreased libido, dysuria,flank pain, frequency, genital sores, hematuria, hesitancy, incomplete emptying,menorrhagia, missed menses, nocturia, non-menstrual bleeding, pelvic pain andurgency.Neurological: Positive for headaches (Associated with jaw pain). Negative foraphonia, brief paralysis, difficulty with concentration, disturbances incoordination, excessive daytime sleepiness, dizziness, focal weakness,light-headedness, loss of balance, numbness, paresthesias, seizures, sensorychange, tremors, vertigo and weakness.Psychiatric/Behavioral: Negative.Allergic/Immunologic: Negative.Past HistoryPast Medical History:Diagnosis Date Abnormal EKG [address] bell, baseline EKG is sinus rhythm, frequent PACs, poor Rwave progression, nonspecific ST-T wave abnormality, repolarizationabnormalities. Anxiety Cellulitis of left toe Coronary artery disease Diabetic neuropathy GERD (gastroesophageal reflux disease) Hypercholesterolemia Hypertension Onychomycosis Paronychia of great toe of left foot 04/22/2019 Peripheral artery disease Type 2 diabetes mellitus Wound healing, delayedPast Surgical History:Procedure Laterality Date BREAST BIOPSY CARDIAC CATHETERIZATION N/A 04/24/2019 Procedure: Percutaneous coronary intervention; Surgeon: Raymond Casiano MD;Laterality: N/A; CARDIAC CATHETERIZATION N/A 04/22/2019 Procedure: Left heart cath; Surgeon: Raymond Casiano MD; Laterality: N/A; CARDIAC CATHETERIZATION N/A 04/22/2019 Procedure: Coronary angiography; Surgeon: Raymond Casiano MD; Laterality:N/A; CARDIAC CATHETERIZATION N/A 04/22/2019 Procedure: Left ventriculography; Surgeon: Raymond Casiano MD; Laterality:N/A; CARDIAC CATHETERIZATION N/A 04/22/2019 Procedure: Percutaneous coronary intervention; Surgeon: Raymond Casiano MD;Laterality: N/A; Cardiac stress test For cardiac stress tests last one was in 2014: No stress inducible angina.Electrographically inconclusive for detection of myocardial ischemia due tobaseline repolarization abnormality. Reversible very small basal inferior walldefect consistent with regadenoson inducible coronary flow no distribution inthe right coronary artery territory. Normal LV wall motion Cataract surgery CHOLECYSTECTOMY Myocardial infarction 1992 OOPHORECTOMY Peripheral artery stenting Right leg TUBAL LIGATION WOUND DEBRIDEMENTFamily HistoryProblem Relation Age of Onset Diabetes type II Mother Myocardial Infarction ([place] Mother Heart disease [place] Brother Age 59 [place] ([place] Brother age 46 Heart attack Sister age 72Social HistorySocial History Narrative Patient has family members she lives withSocial HistorySocioeconomic History Marital status: Spouse name: Not on file Number of children: Not on file Years of education: Not on file Highest education level: Not on fileOccupational History Occupation: retiredSocial Needs Financial resource strain: Not hard at all Food insecurity: Worry: Never true Inability: Never true Transportation needs: Medical: No Non-medical: NoTobacco Use Smoking status: Former Smoker Packs/day: 1.50 Years: 30.00 Pack years: 45.00 Last attempt to quit: 1992 Years since quittin.4 Smokeless tobacco: Never UsedSubstance and Sexual Activity Alcohol use: Not Currently Comment: Occasionally Drug use: Never Sexual activity: Not CurrentlyLifestyle Physical activity: Days per week: Not on file Minutes per session: Not on file Stress: Not on fileRelationships Social connections: Talks on phone: Not on file Gets together: Not on file Attends voodoo service: Not on file Active member of club or organization: Not on file Attends meetings of clubs or organizations: Not on file Relationship status: Not on file Intimate partner violence: Fear of current or ex partner: Not on file Emotionally abused: Not on file Physically abused: Not on file Forced sexual activity: Not on fileOther Topics Concern Not on fileSocial History Narrative Patient has family members she lives withMedications and AllergiesALLERGIES/SENSITIVITIES: No Known Drug AllergiesScheduled Meds: aspirin EC 81 mg Oral Daily atorvastatin 80 mg Oral Daily carvedilol 12.5 mg Oral BID [START ON 10/07/2019] clopidogrel 75 mg Oral Daily DULoxetine 60 mg Oral Nightly gabapentin 300 mg Oral Nightly heparin (porcine) 5,000 Units Subcutaneous Q12H YIN [START ON 10/07/2019] insulin glargine 10 Units Subcutaneous Nightly [START ON 10/07/2019] insulin lispro 1-8 Units Subcutaneous With meals slidingscale normal saline flush 3 mL Intravenous Q8H YIN normal saline flush 3 mL Intravenous Q8H YIN pantoprazole 40 mg Oral Daily spironolactone 25 mg Oral Daily trandolapril 0.5 mg Oral DailyContinuous Infusions:PRN Meds:.acetaminophen, atropine sulfate, ondansetronPhysicalBlood Pressure: BP: 171/69 Pulse: Heart Rate: 88Temperature: Temp: 98.3 F Respirations: Resp: 18Admission Weight: Weight: 59.4 kg (131 lb) O2 Saturation:Today's Weight: Weight: 59.4 kg (131 lb)Physical ExamPhysical ExamConstitutional: She is oriented to person, place, and time. She appearswell-developed and well-nourished. No distress.HENT:Head: Normocephalic and atraumatic.Right Ear: External ear normal.Left Ear: External ear normal.Nose: Nose normal.Mouth/Throat: Oropharynx is clear and moist. No o ropharyngeal exudate.Eyes: Pupils are equal, round, and reactive to light. Conjunctivae and EOM arenormal. Right eye exhibits no discharge. Left eye exhibits no discharge. Noscleral icterus.Neck: Normal range of motion. Neck supple. No JVD present. No tracheal deviationpresent. No thyromegaly present.Cardiovascular: Normal rate, regular rhythm, normal heart sounds and intactdistal pulses. Exam reveals no gallop and no friction rub.No murmur heard.Pulmonary/Chest: Effort normal and breath sounds normal. No stridor. Norespiratory distress. She has no wheezes. She has no rales. She exhibits notenderness.Abdominal: Soft. Bowel sounds are normal. She exhibits no distension and nomass. There is no tenderness. There is no rebound and no guarding.Musculoskeletal: Normal range of motion. She exhibits no edema, tenderness ordeformity.Lymphadenopathy: She has no cervical adenopathy.Neurological: She is alert and oriented to person, place, and time. She hasnormal reflexes. No cranial nerve deficit. Coordination normal.Skin: Skin is warm and dry. No rash noted. She is not diaphoretic. No erythema.No pallor.Psychiatric: She has a normal mood and affect. Her behavior is normal.DiagnosticsLabResults from last 7 daysLab Units 10/05/2018753230CXPJHNKCJN mg/dL 1.00Results from last 7 daysLab Units 10/05/201846WBC 10*3/uL 8.2HEMOGLOBIN g/dL 11.4*HEMATOCRIT % 35.5*PLATELETS 10*3/uL 217Results from last 7 daysLab Units 10/05/2018094707PZWWFFJE I ng/mL 0.05*Results from last 7 daysLab Units 10/05/201846INR 1.09Results from last 7 daysLab Units 10/05/2018851743YPZXEN mmol/L 140POTASSIUM mmol/L 4.3BUN mg/dL 19Assessment & PlanThis is 74-year-old female patient medical history of T2DM, CAD s/p 9 stents inJanuary 2019, diabetic neuropathy, and hypertension, [facility]. She has 57-rgtd-eppe history ofsmoking quit 27 years ago. She has strong family history of cardiac disease.Her diabetes has been controlled since her cardiac stents.Unstable angina/history of coronary art ti disease requiring 9 stents in [id number] offers no anginal complaintsEKG on admission reveals normal sinus rhythm with old anterior septal infarctTroponin was 0.05 at referring facilityAdmit to telemetryContinue aspirin, Plavix, Coreg, high intensity statin, nitro PRN for pain, ACEinhibitorOxygen supplementation to keep O2 sats greater than 94%N.p.o. until evaluated by cardiologyHypertensionBP 200 systolicContinue Coreg home doseACE inhibitor which he usually takes at nightHypomagnesemiaRepleteElevated lipaseRecheck in amType 2 diabetes mellitusBlood glucose appears to be in better control since her medications have beenchangedWe will continue Lantus and frail scale coverage for nutritional correctionAdjust as neededHypercholesterolemiaAtorvastatin 80 mg dailyDiabetic neuropathyGabapentin nightlyAnxiety/depressionDuloxetine 60 mg dailyGastroesophageal reflux diseasePPI chronic useDVT prophylaxisHeparin subcuKnee-high stockingsCODE STATUS: Full codeI had a face to face discussion today with Patient regarding advance directives.We discussed the patient's code status wishes and the differences between whatit means to be full code, DNR, or DNR/DNI. (A DNR patient can still beelectively intubated in a non-cardiac arrest situation. A DNR/DNI will not beintubated in any circumstance.)Questions which were addressed included: code statusAt this time their wishes are for the patient to be made Full Code. This hasbeen entered into the chart.Other topics discussed today included Patient's values and goals of careDetails of this discussion were as follows: code statusForms completed today include Sang spent < or = 15 minutes during the above discussion which was additional timespent separate from the hospital visit.D/W ignature: Yuri Sosa, NPDate: October 06, 2019Time: 9:28 PM Name Value Range Interpretation Code Description Data Marva rce(s) Supporting Document(s) ID Date Data Source [id number] 10/06/2019 09:52:16 PM EDT [facility] Name Value Range Interpretation Code Description Data Marva rce(s) Supporting Document(s) COLOR [facility] APPEARANCE [facility] SPEC GRAV URINE 1.011 (1.003-1.030) [facility] PH URINE 5.5 (5.0-7.5) [facility] LEUK ESTERASE (NEG) [facility] NITRITE URINE (NEG) [facility] PROTEIN URINE (NEG) [facility] GLUCOSE URINE (NEG) [facility] KETONE URINE (NEG) [facility] UROBILINOGEN 1.0 mg/dL (0-1.0) [facility] BILIRUBIN URINE (NEG) [facility] BLOOD/HGB URINE (NEG) [facility] ID Date Data Source [id number] 10/06/2019 09:09:23 PM EDT [facility] Name Value Range Interpretation Code Description Data Marva rce(s) Supporting Document(s) POC NOVA GLU 136 mg/dL (70-99) H [facility] PERFORMED BY [facility] ID Date Data Source [id number] 10/06/2019 09:05:41 PM EDT [facility] Name Value Range Interpretation Code Description Data Marva rce(s) Supporting Document(s) HEMOGLOBIN A1C @ 6.4 % (4.0-6.0) H [facility] Performed using Siemens [place] immunoassa y.Care must be taken when interpreting [id number] in patients with a hemoglobin variantor decreased erythrocyte lifespan. Values 5.7 - 6.4% suggest prediabetes.Values >=6.5% are diagnostic for diabetes.REFERENCE: DIABETES CARE 2018: 41(S13-S27).PERFORMED AT [address] [place] [address] [place] [address] EST AVERAGE GLUCOSE 137 mg/dL [facility] ID Date Data Source [id number] 10/06/2019 11:22:22 PM EDT [facility] Name Value Range Interpretation Code Description Data Marva rce(s) Supporting Document(s) CHOLESTEROL @ 111 mg/dL (0-200) [facility] TRIGLYCERIDE @ 82 mg/dL (30-200) [facility] HDL CHOLESTEROL @ 42 mg/dL (>40) [facility] PER NCEP ATP III GUIDELINES:RESULTS LOWE R THAN 40 MG/DL ARE SUGGESTIVEOF INCREASED RISK FOR CORONARY ARTERYDISEASE. RESULTS > OR = TO 60 MG/DL ARECONSIDERED A NEGATIVE RISK FACTOR. CHOL/HDL RATIO 2.6 RATIO [facility] INTERPRETATION OF CHOL-HDL RATIO CHD RISK FEMALE MALEVERY HIGH >8.3 >14.3HIGH 5.6- 8.3 6.7- 14.3AVERAGE 3.7- 5.6 4.0- 6.7BELOW AVERAGE 2.5- 3.7 2.7- 4.0PROTECTED <2.5 <2.7 LDL CHOL (CALC) 53 mg/dL (<130) [facility] PER NCEP ATP III GUIDELINES: OPTIMAL < 100 NEAR OPTIMAL 100 - 129BORDERLINE HIGH 130 - 159 HIGH 160 - 189 VERY HIGH > 189 ID Date Data Source [id number] 10/06/2019 08:56:34 PM EDT [facility] Name Value Range Interpretation Code Description Data Marva rce(s) Supporting Document(s) TSH,ULTRASENSITIVE @ 2.582 mIU/L (0.360-4.170) [facility] AT [address] [place] [address] [place] [id number] ID Date Data Source [id number] 10/06/2019 08:56:34 PM EDT [facility] Name Value Range Interpretation Code Description Data Marva rce(s) Supporting Document(s) LIPASE 237 U/L (65-230) H [facility] ID Date Data Source [id number] 10/06/2019 08:56:34 PM [facility] Name Value Range Interpretation Code Description Data Marva rce(s) Supporting Document(s) NT PRO BNP 564 pg/mL (0-125) H [facility] ID Date Data Source [id number] 10/06/2019 08:56:34 PM EDT [facility] Name Value Range Interpretation Code Description Data Marva rce(s) Supporting Document(s) TROPONIN I 0.05 ng/mL (<0.05) [facility] Less than 0.05: Myocardial injury unlike lyGreater than or equal to 0.05: Highly suggestive of myocardial injuryCorrelation with rise and/or fall ofserial troponins, clinical symptomsand ECG changes is necessary. ID Date Data Source [id number] 10/06/2019 08:56:34 PM EDT [facility] Name Value Range Interpretation Code Description Data Marva rce(s) Supporting Document(s) SODIUM 140 mmol/L (136-145) [facility] POTASSIUM 4.3 mmol/L (3.6-5.2) [facility] CHLORIDE 106 mmol/L (100-108) [facility] CO2 27 mmol/L (22-31) [facility] ANION GAP 7 mmol/L (7-16) [facility] UREA NITROGEN 19 mg/dL (7-24) [facility] CREATININE 1.00 mg/dL (0.60-1.00) [facility] BUN/CREAT RATIO 19.0 RATIO (10.0-20.0) [facility] GLUCOSE 81 mg/dL (70-99) [facility] CALCIUM 8.2 mg/dL (8.4-10.2) L [facility] TOTAL PROTEIN 7.1 g/dL (6.4-8.2) [facility] ALBUMIN 3.7 g/dL (3.2-4.5) [facility] GLOBULIN 3.4 g/dL (2.7-4.3) [facility] ALB/GLOB RATIO 1.1 RATIO [facility] ALKALINE PHOSPHATASE 55 U/L (45-117) [facility] BILIRUBIN,TOTAL 0.4 mg/dL (0.0-1.0) [facility] PLEASE NOTE:Total bilirubin results may be falselyelevated in patients taking Eltrombopag. AST (SGOT) 23 U/L (11-39) [facility] ALT (SGPT) 24 U/L (12-78) [facility] GFR 55 ml/min/1.73m2 (>59) L [facility] GFR ( AMER) >60 ml/min/1.73m2 (>59) [facility] GFR INTERPRETATION [facility] --NORMAL KIDNEY FUNCTION OR MILD DISEASE - GFR >OR= 60CHRONIC KIDNEY DISEASE - GFR 15 - 59RENAL FAILURE - GFR <15 Est. GFR calculation based on the MDRDstudy equation, which assumes a steadystate for creatinine. Est. GFR should notbe used for medication dosing. ID Date Data Source [id number] 10/06/2019 08:44:47 PM EDT [facility] Name Value Range Interpretation Code Description Data Marva rce(s) Supporting Document(s) MAGNESIUM 1.2 mg/dL (1.7-2.4) L [facility] ID Date Data Source [id number] 10/06/2019 08:11:41 PM EDT [facility] Name Value Range Interpretation Code Description Data Marva rce(s) Supporting Document(s) APTT 25.3 s (22.0-34.3) [facility] ID Date Data Source [id number] 10/06/2019 08:11:41 PM EDT [facility] Name Value Range Interpretation Code Description Data Marva rce(s) Supporting Document(s) PT 11.4 s (9.2-11.9) [facility] INR 1.09 [facility] [place] SUGGESTED THERAPEUTIC RANGES USING INR F ORSTABILIZED ANTICOAGULATED PATIENTS:STANDARD DOSE THERAPY INR 2.0-3.0 DVT, PE, PREVENT DVT OR EMBOLISMHIGH DOSE THERAPY INR 2.5-3.5 PREVENT EMBOLISM FROM MECHANICAL HEART VALVE ID Date Data Source [id number] 10/06/2019 08:09:10 PM EDT [facility] Name Value Range Interpretation Code Description Data Marva rce(s) Supporting Document(s) WBC 8.2 10*3/uL (4.1-11.0) [facility] RBC 4.11 10*6/uL (4.00-5.40) [facility] HGB 11.4 g/dL (12.0-16.0) [facility] HCT 35.5 % (36.0-47.0) [facility] MCV 86.4 fL (80.0-95.0) [facility] MCH 27.8 pg (27.0-32.0) [facility] MCHC 32.2 g/dL (32.0-36.0) [facility] RDW 15.1 % (10.5-14.5) [facility] PLT 217 10*3/uL (150-450) [facility] MPV 8.3 fL (7.1-10.7) [facility] NEUT % 63.7 % (35.0-75.0) [facility] LYMPH % 25.0 % (16.0-52.0) [facility] MONO % 8.0 % (0.0-8.0) [facility] EOS % 2.6 % (0.0-5.0) [facility] BASO % 0.7 % (0.0-4.0) [facility] NEUT # 5.2 10*3/uL (1.8-7.7) [facility] LYMPH # 2.0 10*3/uL (1.2-4.8) [facility] MONO # 0.7 10*3/uL (0.0-0.8) [facility] Eosinophils [#/volume] in Blood by Automated count 0.2 10*3/uL (0.0-0 .5) [facility] BASO # 0.1 10*3/uL (0.0-0.2) [facility] ID Date Data Source [id number] 10/06/2019 07:50:00 PM EDT [facility] Name Value Range Interpretation Code Description Data Marva rce(s) Supporting Document(s) POC NOVA GLU 74 mg/dL (70-99) [facility] PERFOR[facility] BY [facility]ICAL STAFF ID Date Data Source [id number] 10/06/2019 08:40:06 PM EDT [facility] SPEC EXP DATE 10/09/2019PATI ENT ABO/Rh A POSITIVEANTIBODY SCREEN NEGATIVETESTING SITE PERFORMED AT [address] [place] [address] [id number] BANK COMMENT BLOOD TYPE CONFIRMED. Name Value Range Interpretation Code Description Data Marva rce(s) Supporting Document(s) TYPE AND SCREEN [facility] PATIENT ABO/Rh A POSITIVE ID Date Data Source [id number] 10/06/2019 07:27:26 PM EDT [facility] Name Value Range Interpretation Code Description Data Marva rce(s) Supporting Document(s) POC NOVA GLU 61 mg/dL (70-99) L [facility] [place] [facility]FOR[facility] BY [facility]IN[facility] STA[facility] ID Date Data Source [id number] 07/16/2019 07:57:10 AM EDT [facility] Name Value Range Interpretation Code Description Data Marva rce(s) Supporting Document(s) &PDF [facility] XGKWKe2wLpWKRsOb36/LYJorSUIxa4FdZPjrPLm0ULbhCCIhK8CadKyrHLLZBfhRL79AQAXSPHhGJzLQ yZW [file] oZ2ZQYkI1Ef/KDY5bskyrPOz0CKRY6726OTVRMx8IJPwqDe5gaV+LQtOxsmTezRFwctUUSi/Orchestra Teacher/C37fR [file] qEvavVflxWe+snZ59z0F/67DOmC/w6F+Cracker [employer] Cookie Machine Operator+0kTyWbG31ZN5bq5312E/C//Rb4t8/g29wkDgmzn/EADC FDy0w7xBO8PVEqVm+LBG9Zb1zxLcC5rQmMvU8XQ0ouEb146Zh5avGs+yK9PxH4nl3WMyac+fJ4HoU+HZ R+4tuDOy0i2pvikhh6l1j5WqSm3WH5bgHk2/KkutFA l4Iuqq446jV/vEhc62Fn6Kw4Jq4w3oG8GxVeiyn0Taroq94n9Yz8jKqJtRj15D/Wi/+Eaney4XS7XFqf 7Rw5Zn0uPqqbxnmI/sldnYYkako3qryWmLzbbcfMUXqS6EmpUXXro/CAjOml7liONjxzg4jov/kV1W0+ eJW5NW4HbS255Wv3c+CK9BoHo+VPHImuMqf6NdhMZr 50+VhYWKExwkjVJMOf9GlAE3BrsdF6l1OpheyC97cRNYnk6fH5lwmlt5lnnsU1bohpm9QBPFAn8/7/UW auvabLp+aUGya534LBfLg1x9c+c3PT1x0IwfzMP3HzpIF3pxNoDKhbSgv63MgxDi+bLXhz4ff1O7ZUqT 0d9BJq+9Vv6/3P0vxShUMfZnMNor9S60QfFWkO1Wbo 2QFwk6YxPewLDcE2FWEhm+PLk+lkAJy5faS8XUtAkJBU0M3yp9lOQ4YC2dluVcG59e5sz9Chf3gKNo7o 5/oQ2dLWm4afcG3OHTj2xtjjes323c+jzSbTjsVzNfgghE3HNhfh9+udEUR4XL3cTRv2K+DCmx/pK92k Cjkm8J02m/T33GSejV966jCmjvw94RY0FnEoamm8Aj Z9FtYwSYhJiaIFq6c22PzXmaeJocUhVEcoS3VDzvX46fk0J7z5vGpY623yn/xr2OKUgs/qSEa/fH0Aox vzj+oluxkcuLgeS8f5N4hxgKzira+e/xWFzuN+nK9jvZnYlRMfh6sKO0RbfjG0+/4ty6usDi0XUIihYK ipZE+5C+kpG85kLgzs8Zu17ZX9QqM4565K0wjfZ5c0 N23so+pmnG+DjdQpWjkYkP/K8cBe/ivpv/Al25kKAp1boo8/s/wAWmx/p8Q/9QrIbfQLLh6DhPbCJ9+B Q+KzkuY5gi326/Fld8j0tQti1kkpCihzgO3YjDPYRobnAR8r6/KnVv7wyzcXnw8ic79qx/3Vt2pQ+pdL f3XV5u+aV05zQAXL1R38pSWObSF6tsHQhBZp2jTDeT /JV7qU/1vVILDzm/ZA71GqnQ9Nv1EC+e8Trnnh42buh5I65ql62jyyRnJC92YyR+0S555pPJ++6tdHAn eZRvOzXL4q/d+njjJJqFL18Fsmz17y3xZ6coKpAsKhy7kQ4kvcH232jPd72aIZbAYsJd/6eHyGyddlmP m4u0t1wz59Yw/qSsZ4q2fOhvldw41ktdqw377Bif8O +6ADeOZj5hU7TP2Bj/15pLbegtW1/YiSUxDr/bT5YWxTRdBp0U21gKz+cJEdg8zg79zYDQS43iZ7FonM 2YBKv6k9b3LsHyuMx2Mqecksxu8L484Tu7T606v8+efO+i3jfBHh790kpm+49NbLC/8Ow9iSFgOCCuI+ 2GYMgF3GTDKw8/0LUWOk1OaQ3slUmVg02gglwS4Op2 /w48S2nWS9VCj35992LejtR+f4E4lE7d/8fnbYCZQ746rS3hagqpH4cbxwTX7r33tRpuwGwl/j/ubwet +jq0S9l1PP/flyPLXN+ykj6zdd1+J5y/lDEznllemvRXoPjU50UPElbddjQk5W41j+kP5Oe0ad268wrG ulffN+L6BLh8+VlPdC16+cV44EcklDVTU/Valentín/PTfQq 41VcKXX3kM4Boljpjhe9RcD+izQ2orFqoN4Fp5BElZ/snJ/umX612l/G1sZap3Cg9Jv0G7ALHKRh0946 aai8UNDPZfYEX5b6h7zG67pk4rT63+ty/lIZDq56wYcCIp1aYS3skFi/NHx7cMd7D1bqya0c3lz8F1Dg 4PqHmX8SdaSX8yg+Br3luK/LXMH4vH++TIMYszc54/ QjK5afAH2Sg7lu5Y2QuZy53uFty3llo+qej1SvhA+xnrK+nBZkiy9aqDi+MVT7qqPhCgxbpnj4M71H73 2UH2+n9fZnC/9s/3/Au5FkUfMAPhkzi3czZ3preHHU0TzmFQY+M76bmR4Q0dzEhq6syEFMuUB/Fj952b 9efX+jOTqhoR0pePV/Kcv52a53fVczot/KXhNOmD1J PF5CWEscfKX7PhP94Jdhx55+qX975wmp+2Jap12yqgyy+urLr7t+VTgo91uUa+ZX5NW5+p102y706s6p t0VhFtba519/wVz+b25w9h+Wfx54vihoZUBLq3X3qN89Wvi8wRyBXvjg7Qn6B/msZH2BjPt8qioeLqoa bqbqx4oOtbnSiYPwd5y8Os1dOJorfL3u/9g7zvhfiu G/p+z+q5b8jMtxVsmwjWS8GYX6zoxZiUxX6e/LoMHT19X4c389ykMY6HI6FW5J1IabZiMxRK3h0236v9 uipdqk0d/3YqH6zbP7lp125XltkP+3/5t/zjYW41QwaK49kq6IhRPHjIv84FfQkROTq700RQkhge/r8P Hhdwa6/rkDm6I8n3b3qkH3USTSSCwtQ2b8k3Ow3/WI qNUIhKOlu/djOwaX4xvdzoU4UwlhTZsMXtDHoUT6r4LCB4MxaCrQqky3xr0DLMSek8lCC/vHG9vxmwt5 P/bCsd2L8r5y659htrwcngO6X5pDNb7bfD87bM8H7JmZ0OuEnRdDzc2ytJvAcC94QzYpEnkId0kE/EeY PD8+dmjKevCUp9Ufzo6V2Rfr++S1aAe9hQIud2luUh lpKy6S68bt/OPipZfO4McB+nb7Z+hwZQihk59wK0tuofPVf+naTh8qO6V4lsqKgei0/BimffOezffSga Woam0F2Krlv8q0xcdev4UkcIF8Q9MXvDlb/d5sdxmG06mjPOg+MGp/rp9VA+Wl9wJ8nI6pm8n0cbmb92 PIoxQf4WUy/91nT39CRb5rs1TDDa9xzubwkEQSwSkq kfPdXohnK+krBs2Fp/vec0xzjWAqMobedhGGvQ3xerULVnXJ5Kkr4D4pEoXm0p2gtcZVowg+VTv3xt2V k2fDe8UTW/yrAU9ec6d57hLh9619+1k82dd0zght6HDFQVclP5akfIRo41wLxczui6OHg2fIWXkU9Eny nLcGyUoy9iO0tzKooGMT1GyRoPEwTi504j8F6Tn1sB n3ggvH06M5xA84AOdd6drG7fEJoCAsmM/Tzoj24zIzgeb9tIj0dAgi/B1uvAHDL+WX84auUg8/Kkfa0V 47lgn3dg+auM+ernQdOD6Z/nV1ptU732yPSiIrn9JFH44ss6/c2tlyKb5s2bbkm199+j/CRNXa42CQf1 VYqiB4Za/dxlcPrHeeEe+4brfypnoK+zXX47E7DSsy M0ibwyR7Pbz/eVlt0/lqz2Pd+3jdG53u33QSbdehdj1bdcDL7VkAiEq24MlRW18s1SjUmW65REfMf6+q 1B8L30G/9K9FV8SMlH8Q+/9d3a878mpKp4kMZN01+VEfBvyjqJ+Qu0ublsx5Ko27v9BYAQgwAFL36P7v wX+ScS02Lfgj7cb5KSDfkFtS1Qy1zBxQjD5CYK5Vzr l6bmnYU/Valentín/ntYBR+ZAq0LC28LRA0Me5IYsSUFFw3QsD+G5Mnx5qxphR6DSeOjX+7P1e9Gd8opAN0gxw [file] u96w3H/bGlC3MJpx+Mcintyre+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/G2RPnS1+FtS01CTkZv7ccBuHkFLWzZd6qtRgYr7oW/d1YVl7RkwvU/p [file] ICAgICAgICAgICAgICAgICAgICAgICAgICAgICAgICAgICAgICAgICAgICAgICAgICAgICAgICAgICAg ICAgICAgICAgICAgICAgICAgDQogICAgICAgICAgIC AgICAgICAgICAgICAgICAgICAgICAgICAgICAgICAgICAgICAgICAgICAgICAgICAgICAgICAgICAgIC AgICAgICAgICAgICAgICAgICAgICAgICAgICAgDQogICAgICAgICAgICAgICAgICAgICAgICAgICAgIC AgICAgICAgICAgICAgICAgICAgICAgICAgICAgICAg ICAgICAgICAgICAgICAgICAgICAgICAgICAgICAgICAgICAgICAgDQogICAgICAgICAgICAgICAgICAg ICAgICAgICAgICAgICAgICAgICAgICAgICAgICAgICAgICAgICAgICAgICAgICAgICAgICAgICAgICAg ICAgICAgICAgICAgICAgICAgICAgDQogICAgICAgIC AgICAgICAgICAgICAgICAgICAgICAgICAgICAgICAgICAgICAgICAgICAgICAgICAgICAgICAgICAgIC AgICAgICAgICAgICAgICAgICAgICAgICAgICAgICAgDQogICAgICAgICAgICAgICAgICAgICAgICAgIC AgICAgICAgICAgICAgICAgICAgICAgICAgICAgICAg ICAgICAgICAgICAgICAgICAgICAgICAgICAgICAgICAgICAgICAgICAgDQogICAgICAgICAgICAgICAg ICAgICAgICAgICAgICAgICAgICAgICAgICAgICAgICAgICAgICAgICAgICAgICAgICAgICAgICAgICAg ICAgICAgICAgICAgICAgICAgICAgICAgDQogICAgIC AgICAgICAgICAgICAgICAgICAgICAgICAgICAgICAgICAgICAgICAgICAgICAgICAgICAgICAgICAgIC AgICAgICAgICAgICAgICAgICAgICAgICAgICAgICAgICAgDQogICAgICAgICAgICAgICAgICAgICAgIC AgICAgICAgICAgICAgICAgICAgICAgICAgICAgICAg ICAgICAgICAgICAgICAgICAgICAgICAgICAgICAgICAgICAgICAgICAgICAgDQogICAgICAgICAgICAg ICAgICAgICAgICAgICAgICAgICAgICAgICAgICAgICAgICAgICAgICAgICAgICAgICAgICAgICAgICAg ORLbZMDfWCRpISJfAVEdHJZdNCWwYQRtZTSeSOa5T5 smJVNgOMJmWL2xLJn5Wi6+WQyVVwMwWQX8ifNpvV0QIR7ey2NyOUhtCZUpc0NuJBy1YA8JEJNxRVbkIV 4TKGzjtd7XZIToLVSywUXEb9baTpUkTHA8YUEcFfcjQV3FGEIsF6guoaOsERTrDEELHStyPYNXEAriGJ KXBJQhBOFqJkWkZqAhASFaNZNiZQEOAED2TMRkFwNc DZfuSD1Ls3OicOJ4NYe+Hi0DXT1wk2JsDHdyVHSvZH1ken1JAUeXUzBtS5OtllN5BFV8LHGcAv9YUSJz MIBueJOkUBZuILYJUwNdD9DhbV46CIDSTx3+ASzlmgYmNayGKpU4HNBul0XyATy5ZT4MIZFqLXe0cZTi QF4xwGKcuHLjGXqoOS6KUUH5SQysQhAxSJBoH0dDKo NmHNZ9FoNswMygOP2SCiXdA8JaurQfaHUdZVHeCADMNo6+XJxcgmTxDghUPjK5RYKox6WkKIx4HR5QPJ EfRPtdHL1APOMuiT3dOEpfHS5RFoEhHgCfGEFEToQdE82gbLLpWSg0A0ZzTiYwHQItToqxYOSzZYaeJs FtZXMgWyBdDQogID4+ID4+OByyEI0JDSxxjfLsSQJu Of6AJKDwHTHhYQ2jNRZkCBZuL6D2eKqiZPYQQmQlX3mmpgwvRB3xXNPjG939pSpxngNuQEM8OPUsLl2C LIKrGYV4ZDPdoINsVlItFGMZPIkdXP1AgVVoMOB5dY2mDTfbLJVbJAEyG2uJRqDneMiuKO97bXswgqEt bCBdDQo+Uq5UCR7wx0ChCWm2fsYlARuiPFQ5OKzoZH OaMRLuHIRbVGF0XYU4KCFUIqZzTEYiZGXnIOjdQMFyAPPsap6VCCPyEFEcEKQ4NNOzQDFqQODzPPkwUN AbASKaRgEqALMoWTWfFH7NWbJcCHWtOXAyTKjhPDJvROUfhn3LSOIkPOKeZsQrWVIcJFHeRADdDWntFA TiTMGyIvK5ZFWaLBEfDB0YWySeGXTuNYH9LhXbMIZl ZKDxss9OKKWlCLNrQKozVbNqLXAuQYFhDNccYPNmQAC3ICs8QEPlWVTuRO0TOwQnEYIaXYq1MCmtVMHs CHObyt3PXAVjJWNwEZIhJRBcDHCsZPDdGWhnELGzWGByOOG0JZQrTJMlWJ0UYkKhSDNbBHCfMFYdPDZp IVDtga9OKVQrALPmViP1SvJsVZLaPXGaTYszVQNvKH VcZDV3CXNnQKBpRD3ROsXoNSZgKKUtZSYfUCQkQQQxyf6JZXHdSHLzYiE3KdXqGIMqUUWvPDbjTQNtKD A4DoFcIASaYQCuUV6IVvOmFSPoMDa9JKVeRMCfOWQlbd0XAWZeKIGdUotcQWBzXYBvNQQkBAivITYzIO V3KXcrKZLdGTRqDA3AVjPuQDTaIYh0QKJoFILmBUIm ua6DMORmSXVrAHI6JCKwBZCtGOUjSNsvSRPmVPT7KkSqHCChBJQnXF6BVzRsZPPoOhI3SbMlTEYqKYMx fd6WERQeLNWoPLh5OnNdAJVlDSKeRFxeQBRkEIEsEbm1WBQaPFWjGM3TEnOuXVLyPFD6EXNyKVCdJKRv kh6WBVNtNRT6RIv0HXBeEZQdARBxOMrhOETlPUlfNE HlUXQnIXJeXR1PIsTyEDYeTCF4WoKcVCYsAJBflj7HLHQeMTQiGHVzEEUbYPJpJHJwIUscWRAfUEZrIM IeQRSdKLIbNC4VZlSfSZJzDRE2SDSzQHCoEKOhnf7MLLTxTLUoFzVsAMPkILBjDPKrTJokMAMhSDUoHm GmZKRdYVXjRG8QLjWhZDsbBYQWXxt4KUhpL6l7XSXm Np4DK2Phe7QbXkCsIQEGPEyoNB6aenPuZUThTd7EH8qQQewqIuLwEUBeRdB4BSprH2CqUDW0CRirK4G0 XCWcGzOrJL7zRPMrZqHlUYYwWdE2P0H2B5IqZPcuKWO6ZHHqQ4JqP7ElAyUfQE7CDi7HPmT4AQT5sBMl We9KUNHgNWW3XKvzLRWRLi0F ID Date Data Source [id number] 06/25/2019 01:30:00 PM EST [facility] ([facility] Name Value Range Interpretation Code Description Data [facility](s) Supporting Document(s) Surgical pathology study Laboratory test result [facility] ([facility] FINAL DIAGNOSIS Right 5th metatarsal head, excision: Skin with gangrenous necrosis and acute inflammation with microabscess formation. Acute osteomyelitis. 06/27/2019 - 1316 CLINICAL DIAGNOSIS Diabetic foot ulcer stage 2 06/26/2019 - 1255 GROSS DIAGNOSIS Received in formalin labeled "right 5th metatarsal head" and consists of a soft lorenzana tissue of attached bone that measures 2 x 1.5 x 1 cm. The specimen is decalcified and field marketing representative sections are submitted in two. -OA 06/26/2019 - 125 Signed ALEXUS RIVAS MD 06/27/2019 1317 ID Date Data Source [id number] 06/25/2019 11:36:00 AM EST [facility] ([facility] Name Value Range Interpretation Code Description Data [facility](s) Supporting Document(s) Glucose [Mass/volume] in Capillary blood by Glucometer 121 mg/dL 83-110 Above high normal [facility] ([facility] ID Date Data Source [id number] 06/19/2019 12:58:00 AM EST [facility] Patient: MIREILLE RODASa tienma Report - Physicians/[facility].VisitID: [id number] [place] [address] [phone], FRegistrasaint francis healthcare Date/Time: 06/18/2019 21:40 Weight:61.2 kg (S). Height/Length:60 inches (S). BMI:26.4 PAST HISTORYProblems:Hypertension [Chronic].Hypercholesterolemia [Chronic].Diabetes Mellitus Type 2 [Chronic].Gastroesophageal Reflux [Chronic].Coronary Artery Disease [Chronic].Heart Disease [Chronic].Acute Coronary Syndrome.Anxiety Reaction.Contusion [Resolved].Atypical Chest Pain [Resolved].Cellulitis [Resolv ed].Laceration [Resolved].Peripheral Vascular Disease [Resolved]. Additional Surgeries:Breast Biopsy.Cardiac Catheterization.Cardiac stents.Cataract Surgery.Cholecystectomy.Hysterectomy.Oophorectomy.Stent in right leg.Tubal Ligation. Medications:Bacillus Coagulans-Inulin Oral 1 tab, 3x a day, last dose 06/18 1699.Gabapentin Oral (Tablet 800 mg) 1 tablet, daily, last dose 06/17 pm.Spironolactone Oral (Tablet 50 mg) 1 tablet, daily, last dose 06/17 pm.DULoxetine HCl Oral (Capsule Delayed Release Particles 60 mg) 1 capsule, daily, last dose 06/18 1699.Carvedilol Phosphate ER Oral 12.5mg , 2x a day, last dose 06/18 am.Aspirin Oral (Tablet Chewable 81 mg) 1 tablet, daily, last dose 06/18 am.Clopidogrel Bisulfate Oral 75 mg, daily, last dose 06/18 am.Atorvastatin Calcium Oral (Tablet 80 mg) 1 tablet, daily, last dose 06/18 am.Victoza Subcutaneous (Solution Pen-injector 18 mg/3mL) 1.8 mg, daily, last dose 06/18 am.metFORMIN HCl Oral 500 mg, 2x a day, last dose 06/18 am.Levemir Subcutaneous 30 units, daily at bedtime, last dose 06/17 pm.Linezolid Oral 600mg, 2x a day, last dose 06/18 am.Pantoprazole Sodium Oral 40 mg, 2x a day, last dose 06/18 am. Allergies:No Known Drug Allergy. FAMILY HISTORYNo significant family medical history. (Electronically signed by Luis Carlos Diallo, P.AKannan 06/19/2019 00:51) Name Value Range Interpretation Code Description Data Marva e(s) Supporting Document(s) ID Date Data Source [id number] 2019 09:42:00 AM EST [facility] ([facility]) Name Value Range Interpretation Code Description Data [facility] Supporting Document(s) Glucose 130 70-100 [facility] ([facility]) Sodium 138 136-145 [facility] ([facility]) Creatinine 1.18 0.55-1.30 [facility] ([facility]) Blood Urea Nitrogen 25 7-18 [facility] ([facility]) Potassium 4.2 3.5-5.1 [facility] ([facility]) Carbon Dioxide 26 21-32 [facility] ([facility]) Chloride 104 98-107 [facility] ([facility]) Calcium 9.3 8.2-9.6 [facility] ([facility]) Glomerular filtration rate/1.73 sq M.pre dicted [Volume Rate/Area] in Serum or Plasma by Creatinine-based formula (MDRD) 47.9 [facility] ([facility]) ID Date Data Source [id number] 2019 09:42:00 AM EST [facility] ([facility]) Name Value Range Interpretation Code Description Data Amrva rce(s) Supporting Document(s) White Blood Count 10.3 4.0-10.0 [facility] ([facility]) Hemoglobin 12.1 [facility] ([facility]) Hematocrit 39.8 [facility] ([facility]) Platelets 452 150-450 [facility] ([facility]) Red Blood Count 4.32 4.00-5.40 [facility] ([facility]) ID Date Data Source C REACTIVE PROTEIN QUANTITATIV (At [facility]) 2019 12:00 :00 AM EST eCW1 ([facility]) Name Value Range Interpretation Code Description Data Marva rce(s) Supporting Document(s) 0.97 0.00-0.30 C REACTIVE PROTEIN QUANTI TATIV eCW1 ([facility]) ID Date Data Source [id number] 04/28/2019 10:00:00 AM EST [facility] DATE OF EXAMINATION: 04/21/2019 22:[address] BRAIN W/O CONTRAST HISTORY: Trauma TECHNIQUE: This CT exam was performed using the following dose reduction techniques:automated exposure control, adjustment of mA and/or kV according to thepatient's size, and use of iterative reconstruction technique. Findings: Areas of decreased attenuation are present in the periventricularwhite matter. This represents small vessel ischemic disease. There is nointraparenchymal hemorrhage, mass or midline shift. The ventricular system andcortical sulci are dilated consistent with minimal volume loss. There is noextracerebral collection. There is no fracture. A 6 mm the anastomosis ispresent arising from the inner table of the right frontal bone. Mucosalthickening is present in the right maxillary sinus. IMPRESSION: 1. Small vessel ischemic disease.2. Minimal volume loss. Electronically signed in [id number] by: Evaristo Estrada M.D. 04/28/2019 9:55 EST Name Value Range Interpretation Code Description Data Marva rce(s) Supporting Document(s) ID Date Data Source [id number] 04/25/2019 01:37:59 PM EST [facility]PAT[facility] NT INFORMATIONPatient MRN Name Date of Age Gend*PT [id number] Mireille Rodas 1945 73 years F IPPT Location Admission Date/Time Visit ID Attending [id number] 04/22/197 --- Dinesh Small MD([id number]) EPI ID CSN Admitting Provider [id number] Jennifer Cruz MD([id number]) [facility] DISCHARGE SUMMARYPatient Name: Mireille Rodas of : 1945 Age 73 yearsPrimary Physician: EBER YI MD PCP Ocrvpkmgn Date: 04/22/2019 Discharge Date: 04/25/2019She will be discharged from [facility] Diagnoses:Principal Problem: Elevated troponinActive Problems: Diabetic neuropathy Type 2 diabetes mellitus Wound healing, delayed Hypertension Hypercholesterolemia Abnormal EKG Peripheral artery disease Anxiety Paronychia of great toe of left foot NSTEMI (non-ST elevated myocardial infarction)Resolved Problems: Cellulitis of left toe NSTEMI (non-ST elevated myocardial infarction) GERD (gastroesophageal reflux disease)Discharge Medications:Current Discharge Medication ListSTART taking these medications Detailsacetaminophen (TYLENOL) 325 MG tablet Take 2 tablets (650 mg total) by mouthevery 4 (four) hours as neededQty: 30 tablet, Refills: 0atorvastatin (LIPITOR) 80 MG tablet Take 1 tablet (80 mg total) by mouth nightlyQty: 30 tablet, Refills: 0clopidogrel (PLAVIX) 75 MG tablet Take 1 tablet (75 mg total) by mouth dailyQty: 30 tablet, Refills: 0nitroglycerin (NITROSTAT) 0.[address] 1 tablet (0.4 mg total) underthe tongue every 5 (five) minutes as needed for chest painQty: 90 tablet, Refills: 12CONTINUE these medications which have CHANGED Detailscarvedilol (COREG) 25 MG tablet Take 1 tablet (25 mg total) by mouth 2 (two)times a dayQty: 60 tablet, Refills: 0CONTINUE these medications which have NOT CHANGED Detailsaspirin EC 81 MG EC tablet Take 81 mg by mouth dailychlorthalidone (HYGROTEN) 25 MG tablet Take 12.5 mg by mouth dailyDULoxetine (CYMBALTA) 60 MG capsule Take 60 mg by mouth dailygabapentin (NEURONTIN) 800 MG tablet Take 800 mg by mouth nightlyglimepiride (AMARYL) 4 MG tablet Take 4 mg by mouth Twice daily after mealsinsulin detemir (LEVEMIR) 100 UNIT/ML injection Inject 90 Units under the skinnightlyLiraglutide (VICTOZA) 18 MG/3ML SOPN Inject 1.8 mg under the skin dailyMagnesium Oxide (MAG-OX) 400 MG tablet Take 400 mg by mouth 2 (two) times a dayMenthol, Topical Analgesic, (BIOFREEZE EX) Apply 1 application topically dailyas needed (pain)metFORMIN (GLUCOPHAGE) 1000 MG tablet Take 1,000 mg by mouth 2 (two) times a daywith mealsnaproxen sodium (ALEVE) 220 MG tablet Take 220 mg by mouth daily as needed forpainOmega-3 Fatty Acids (FISH OIL PO) Take by mouthspironolactone (ALDACTONE) 50 MG tablet Take 50 mg by mouth dailytrandolapril (MAVIK) 1 MG tablet Take 1 mg by mouth dailySTOP taking these medications simvastatin (ZOCOR) 40 MG tabletFollow Up Instructions:The patient was given an after visit summary.Patient will follow up with PCP in 3-7 days.Patient will follow up with Cardiology Dr Rodriguez in 1-2 weeksItems needing special attention:Patient needs dual antiplatelet therapy for at least a year.Brief Hospital Course: Patient is a 73 years old female with past medical history of diabetes mellitustype 2, diabetes neuropathy, hypertension, peripheral artery disease status poststent, hyperlipidemia, and anxiety who presented to the hospital transfer [facility] with elevated troponin and concern for non-STEMI. She wascomplaining the day prior to admission of jaw pain, neck pain radiating to herleft ear, the left shoulder blade, and between the shoulder blades and down theleft arm. Patient was evaluated by cardiology and underwent a cardiac cath andwas found to have a complex intervention of the right coronary artery withsubtotal occlusion that could not be stented. Also she has an LAD disease thatneeds intervention. Patient will be rescheduled for PCI of the LAD and possiblyof the distal right coronary artery as well. Elevated troponin/non-STEMI/CAD-Cardiology was following-Patient underwent cardiac catheterization yesterday revealing significant CAD,LAN to LAD, LAN x4 to RCA, balloon angioplasty to right posterolateral branch.-Patient was having some bleeding in the groin area and compression was needed-Continued with aspirin and Plavix-She is found stable to be discharged home and will follow with her PCP andcardiologist-Patient needs dual antiplatelets therapy for at least a year Hypertension-Continued with carvedilol and trandolapril Hyperlipidemia-Continued with Lipitor 80 mg p.o. nightly Diabetes mellitus type 2-Managed with insulin Lantus 30 units and insulin sliding scale 12 units-Resume home medication on discharge Anxiety/depression-Continued with duloxetine. Discharge Exam:Blood Pressure: BP: 151/71 Pulse: Heart Rate: 75Temperature: Temp: 98.8 F Respirations: Resp: 18Admission Weight: Weight: 63.7 kg (140 lb 6.4 oz) O2 Saturation: SpO2: 94 %Discharge Weight: Weight: 63.5 kg (140 lb) BMI: Body mass index is 27.34 kg/m .Physical Exam General well developed, well nourished, in no apparent distress HEENT Normal Lungs clear to auscultation Heart regular rate and rhythm Abdomen soft, non-tender, non-distended, no organomegaly or masses Musculoskeletal negative Neuro normal without focal findings, mental status, speech normal, alert andoriented x3, ARRON and reflexes normal and symmetricOther Pertinent Findings: NoneDiagnostics:Imaging/Procedures:Cardiac cath Cardiac Catheterization (04/24/2019)73-year-old woman with coronary artery disease post non-Q wave myocardialinfarction and stenting to the proximal right was residual severe disease in thedistal right that could not be treated on the last angiogram because tortuosityof the vessel. There was also severe disease in the mid LAD.1. Successful intervention with drug-eluting stent placement to the mid LAD.2. Successful complex intervention with guide liner and 4 drug-eluting stentsto the mid right coronary artery at the crux of the vessel and balloonangioplasty to the posterolateral branch of the right.3. Normal left ventricular end-diastolic pressure.4. Starclose to the right femoral arterial site.The patient should be continued with dual antiplatelet therapy for at least ayear. She may be discharged in the morning if her creatinine remains stable. Cardiac catheterization 04/22/2019:73-year-old woman with peripheral vascular disease and myocardial infarctionstreated conservatively in 2014 now presenting with non-Q wave myocardialinfarction and ongoing chest pain.1. Thrombotic subtotal occlusion of the ostial right and critical heavilycalcified lesion at the crux of the vessel status post complex intervention withtotal of 4 drug-eluting stents in the proximal right and balloon angioplasty inthe distal right.2. Residual severe disease in the mid LAD.3. Mild left ventricular systolic dysfunction4. Right radial access. Consultants:CardiologyRecent Labs:BMP:Lab ResultsComponent Value Date NA 136 04/25/2019 K 4.0 04/25/2019 CL 103 04/25/2019 CO2 24 04/25/2019 ANIONGAP 9 04/25/2019 CALCIUM 8.2 (L) 04/25/2019 GLU 119 (H) 04/25/2019 BUN 18 04/25/2019 CREATININE 0.89 04/25/2019 GFRAA >60 04/25/2019 GFRNONAA >60 04/25/2019CBC without Diff:Lab ResultsComponent Value Date WBC 8.7 04/25/2019 RBC 3.17 (L) 04/25/2019 HGB 9.5 (L) 04/25/2019 HCT 27.9 (L) 04/25/2019 MCV 87.9 04/25/2019 MCH 29.8 04/25/2019 MCHC 33.9 04/25/2019 RDW 13.5 04/25/2019 PLT 167 04/25/2019 MPV 9.1 04/25/2019Dinesh Small MD1:37 PMTotal time spent for discharge on date of discharge: 40 minutes Name Value Range Interpretation Code Description Data Marva rce(s) Supporting Document(s) ID Date Data Source [id number] 04/25/2019 01:06:40 PM EST [facility] Name Value Range Interpretation Code Description Data Marva rce(s) Supporting Document(s) POC NOVA GLU 153 mg/dL (70-99) H [facility] [place] [facility]MED BY [facility] STAFF ID Date Data Source [id number] 04/25/2019 09:31:34 AM EST [facility] Name Value Range Interpretation Code Description Data Marva rce(s) Supporting Document(s) POC NOVA GLU 132 mg/dL (70-99) H [facility] [place] [facility] ID Date Data Source [id number] 04/25/2019 08:25:51 AM EST [facility] Name Value Range Interpretation Code Description Data Marva rce(s) Supporting Document(s) EKG [facility] ISCVBr4eEvMWIwOmw5MjQfWcDAAdGH9glbb0K8B9cOSnI4DceTWat8yxE0ZqN8VnWJCnOENOCQ5CsWNr jb2 [file] VWDm6lnCIwQBBdoX0qlaWm+commercial lending vice president+LAiFhGttEy0Ikg5 [file] INVISIBLE BRACES ORTHODONTIST//fcz6e4kibJLPP2EHkeb+eBINmmu4x7xbcp1yyFQxW166dp1+Pbwap3XbYu3eSFbcL1tfUh5B1sdP [file] CjAwMDAwMDEyOTcgMDAwMDAgbiAKMDAwMDAwMTQwNi WgDJVqAZSpCZwgGCGsXWFqHxp9DYFwZVIxXL3eJcPqQKGeCEG8MQooMRHhKZGjrqTVDASzVKYnYRnhMC YrWXLrMJScCEyyJWIeOYVsRZR9LREeBQLyYY7gLgQyZMQoHYBjFKWhBtV6HzBsYiAPwKDifEnikzz6HQ jeK4b8NXFxBZzaXQ1jhkWqRNUcUkgeHp2jxEE0YDGuYniZKc6Ui3BtucJ9htJrDoTvFxgrQrFyLN7T ID Date Data Source [id number] 04/25/2019 08:25:41 AM EST [facility] Name Value Range Interpretation Code Description Data Marva rce(s) Supporting Document(s) EKG [facility] EWTDJl5dJzKAGpPyi6WeLaUvQXSmXV9bart5K8P7zZZiF5UivHWyk5knT3HvG4BuHAXdNWIXJT2ChNWy jb2 [file] digital marketing [file] x6ZgG3Dkhnlt+1xx2yNn8xxxK7qUpezXHksRAHn3qC1erX+WeUtWbUtWYUtnbz/uq5jqYgGSg1y7g/IRONER MACHINE [file] t9rIG5QeZdgL1C6dbzyhsX29vi0LV6L5E9E/ZubE3D0hqdhxvY13kt3Ci6g1nkogE4s+valentín+FCpzN8hjo [file] Nhn0TUs6WynzZAAYHu== ID Date Data Source [id number] 04/25/2019 08:14:00 AM EST [facility] Name Value Range Interpretation Code Description Data Marva rce(s) Supporting Document(s) White Blood Count 8.7 [facility] ([facility]) Red Blood Count 3.17 [facility] ([facility]) Hemoglobin 9.5 [facility] ([facility]) Platelets 167 [facility] ([facility]) Hematocrit 27.9 [facility] ([facility]) ID Date Data Source [id number] 04/25/2019 08:14:00 AM EST [facility] Name Value Range Interpretation Code Description Data Marva rce(s) Supporting Document(s) Creatine kinase [Enzymatic activity/volume] in Serum or Plasma 178 [facility] ([facility]) ID Date Data Source [id number] 04/25/2019 08:14:00 AM EST [facility] ([facility] Name Value Range Interpretation Code Description Data Marva rce(s) Supporting Document(s) Creatinine 0.89 [facility] ([facility]) Blood Urea Nitrogen 20.2 [facility] (Ca [facility]diology [facility]) Glucose 119 [facility] ([facility]) Chloride 103 [facility]) Sodium 136 [facility] ([facility]) Potassium 4.0 [facility] ([facility]) Glomerular filtration rate/1.73 sq M.pre dicted [Volume Rate/Area] in Serum or Plasma by Creatinine-based formula (MDRD) Laboratory test result [facility] ([facility]) Calcium 8.2 [facility] ([facility]) Carbon Dioxide 24 [facility] ([facility]iol [facility]) ID Date Data Source [id number] 04/25/2019 04:49:57 AM EST [facility] Name Value Range Interpretation Code Description Data Marva rce(s) Supporting Document(s) CKMB 3.3 ng/mL (0.0-5.0) [facility] CKMB RELATIVE INDEX 1.9 {index_val} (0.0-4.0) [facility] ID Date Data Source [id number] 04/25/2019 04:24:54 AM EST [facility] Name Value Range Interpretation Code Description Data Marva rce(s) Supporting Document(s) SODIUM 136 mmol/L (136-145) [facility] POTASSIUM 4.0 mmol/L (3.6-5.2) [facility] CHLORIDE 103 mmol/L (100-108) [facility] CO2 24 mmol/L (22-31) [facility] ANION GAP 9 mmol/L (7-16) [facility] UREA NITROGEN 18 mg/dL (7-24) [facility] CREATININE 0.89 mg/dL (0.60-1.00) [facility] BUN/CREAT RATIO 20.2 RATIO (10.0-20.0) H [facility] GLUCOSE 119 mg/dL (70-99) H [facility] CALCIUM 8.2 mg/dL (8.4-10.2) L [facility] GFR >60 ml/min/1.73m2 (>59) [facility] GFR ( AMER) >60 ml/min/1.73m2 (>59) [facility] GFR INTERPRETATION [facility] --NORMAL KIDNEY FUNCTION OR MILD DISEASE - GFR >OR= 60CHRONIC KIDNEY DISEASE - GFR 15 - 59RENAL FAILURE - GFR <15 Est. GFR calculation based on the MDRDstudy equation, which assumes a steadystate for creatinine. Est. GFR should notbe used for medication dosing. ID Date Data Source [id number] 04/25/2019 04:24:54 AM EST [facility] Name Value Range Interpretation Code Description Data Marva rce(s) Supporting Document(s) CK 178 U/L (26-192) [facility] ID Date Data Source [id number] 04/25/2019 03:43:52 AM EST [facility] Name Value Range Interpretation Code Description Data Marva rce(s) Supporting Document(s) WBC 8.7 10*3/uL (4.1-11.0) [facility] RBC 3.17 10*6/uL (4.00-5.40) L [facility] HGB 9.5 g/dL (12.0-16.0) L [facility] HCT 27.9 % (36.0-47.0) L [facility] MCV 87.9 fL (80.0-95.0) [facility] MCH 29.8 pg (27.0-32.0) [facility] MCHC 33.9 g/dL (32.0-36.0) [facility] RDW 13.5 % (10.5-14.5) [facility] PLT 167 10*3/uL (150-450) [facility] MPV 9.1 fL (7.1-10.7) [facility] NEUT % 73.7 % (35.0-75.0) [facility] LYMPH % 18.4 % (16.0-52.0) [facility] MONO % 6.7 % (0.0-8.0) [facility] EOS % 0.8 % (0.0-5.0) [facility] BASO % 0.4 % (0.0-4.0) [facility] NEUT # 6.4 10*3/uL (1.8-7.7) [facility] LYMPH # 1.6 10*3/uL (1.2-4.8) [facility] MONO # 0.6 10*3/uL (0.0-0.8) [facility] Eosinophils [#/volume] in Blood by Automated count 0.1 10*3/uL (0.0-0 .5) [facility] BASO # 0.0 10*3/uL (0.0-0.2) [facility] ID Date Data Source [id number] 04/24/2019 06:39:04 PM EST [facility] Name Value Range Interpretation Code Description Data Marva rce(s) Supporting Document(s) POC NOVA GLU 200 mg/dL (70-99) H [facility] ID Date Data Source [id number] 04/24/2019 11:23:56 AM EST [facility] Name Value Range Interpretation Code Description Data Marva rce(s) Supporting Document(s) POC NOVA GLU 210 mg/dL (70-99) H [facility] ID Date Data Source [id number] 04/24/2019 10:37:38 AM EST [facility] Name Value Range Interpretation Code Description Data Marva rce(s) Supporting Document(s) POC NOVA GLU 191 mg/dL (70-99) H [facility] ID Date Data Source [id number] 04/24/2019 09:48:02 AM EST [facility] Name Value Range Interpretation Code Description Data Marva rce(s) Supporting Document(s) &PDF [facility] BCHKAq7qZqQLMhSk16/URTncPKUdx6FcMFpsAXd7GYvrKONsO4WznJohMRALMnpBF26ZIGJEWBgNHfJA lYX [file] Id+na4Kll0v7+[place]/XRt24gP3tXYc2WjoRoayDeh7tWr5uBzOdh8VBgKCXV69/9/Khfu4iwpq3uxzVqX [file] inpatient services [file] T0YNCg== ID Date Data Source [id number] 04/24/2019 03:53:29 AM EST [facility] Name Value Range Interpretation Code Description Data Marva rce(s) Supporting Document(s) SODIUM 136 mmol/L (136-145) [facility] POTASSIUM 4.4 mmol/L (3.6-5.2) [facility] CHLORIDE 102 mmol/L (100-108) [facility] CO2 26 mmol/L (22-31) [facility] ANION GAP 8 mmol/L (7-16) [facility] UREA NITROGEN 22 mg/dL (7-24) [facility] CREATININE 1.04 mg/dL (0.60-1.00) H [facility] BUN/CREAT RATIO 21.2 RATIO (10.0-20.0) H [facility] GLUCOSE 179 mg/dL (70-99) H [facility] CALCIUM 8.8 mg/dL (8.4-10.2) [facility] GFR 52 ml/min/1.73m2 (>59) L [facility] GFR ( AMER) >60 ml/min/1.73m2 (>59) [facility] GFR INTERPRETATION [facility] --NORMAL KIDNEY FUNCTION OR MILD DISEASE - GFR >OR= 60CHRONIC KIDNEY DISEASE - GFR 15 - 59RENAL FAILURE - GFR <15 Est. GFR calculation based on the MDRDstudy equation, which assumes a steadystate for creatinine. Est. GFR should notbe used for medication dosing. ID Date Data Source [id number] 04/24/2019 03:18:59 AM EST [facility] Name Value Range Interpretation Code Description Data Marva rce(s) Supporting Document(s) WBC 8.1 10*3/uL (4.1-11.0) [facility] RBC 3.44 10*6/uL (4.00-5.40) L [facility] HGB 10.4 g/dL (12.0-16.0) L [facility] HCT 30.2 % (36.0-47.0) L [facility] MCV 87.7 fL (80.0-95.0) [facility] MCH 30.2 pg (27.0-32.0) [facility] MCHC 34.4 g/dL (32.0-36.0) [facility] RDW 13.5 % (10.5-14.5) [facility] PLT 187 10*3/uL (150-450) [facility] MPV 8.7 fL (7.1-10.7) [facility] NEUT % 51.8 % (35.0-75.0) [facility] LYMPH % 38.4 % (16.0-52.0) [facility] MONO % 8.1 % (0.0-8.0) H [facility] EOS % 1.3 % (0.0-5.0) [facility] BASO % 0.4 % (0.0-4.0) [facility] NEUT # 4.2 10*3/uL (1.8-7.7) [facility] LYMPH # 3.1 10*3/uL (1.2-4.8) [facility] MONO # 0.7 10*3/uL (0.0-0.8) [facility] Eosinophils [#/volume] in Blood by Automated count 0.1 10*3/uL (0.0-0 .5) [facility] BASO # 0.0 10*3/uL (0.0-0.2) [facility] ID Date Data Source [id number] 04/23/2019 05:40:09 PM EST [facility] Name Value Range Interpretation Code Description Data Marva rce(s) Supporting Document(s) POC NOVA GLU 216 mg/dL (70-99) H [facility] ID Date Data Source [id number] 04/23/2019 12:49:21 PM EST [facility] Name Value Range Interpretation Code Description Data Marva rce(s) Supporting Document(s) POC NOVA GLU 351 mg/dL (70-99) H [facility] ID Date Data Source [id number] 04/23/2019 09:00:43 AM EST [facility] Name Value Range Interpretation Code Description Data Marva rce(s) Supporting Document(s) EKG [facility] EBGYIj2oOcRLHrGbk2HaXgOyXXNgZO2pjut1E2T7oGZrP2SxyGUms6rrE9OvC5MhBYOyGLSUPC2LjHCx jb2 [file] UKrXqoJmqJUr+01C/silvestre+uYDGq1ywWiZfmjdBncwqkhjrb04eH6WkYx57StzHmRZaMPcprUSJ1DlmKaR3 gxFJLtEqOaFcvwfsLtL6gpQSMsXcMzGjsiapHjI0pv YNLfOgRuGAcQuqKdV5jfHZM+9PwpxN+hsKXqlwvUFeLvUNgS7/CuEH+WDqAimkl7qpmpxfWdGFU+TCTN DEgxSbB9jpo8NHlq8D3nTm9v+mVlfZZsSSH+slUdotxo9z16oFcJiZA8ofUjXcpJ1Zr1/E3wlTtoqd9k nTDKzOF6BuHEWjhMJwaU9BSx1rcCOki7OjLtGx2R0K O7IRnBMi68qoc3H4/hdyp91ath92N5HYsoc304LHdM21qyvr6+13X/nuñez+W0NA9/U7Z2oA2QWq/h9/t8W [file] 4hYfLiVKFEV5Wxo2QfMVSqYPVFIz9+LsV2HEO0iLYcJxh5XvRuPFteJWYEFz== ID Date Data Source [id number] 04/23/2019 08:24:23 AM EST [facility] Name Value Range Interpretation Code Description Data Marva rce(s) Supporting Document(s) POC NOVA GLU 236 mg/dL (70-99) H [facility] [place] [facility] ID Date Data Source [id number] 04/23/2019 11:01:46 AM EST [facility] Name Value Range Interpretation Code Description Data Marva rce(s) Supporting Document(s) DIRECT LDL @ 60 mg/dL (<130) [facility]LEKSANDAR PER NCEP ATP III GUIDELINES: OPTIMAL < 100 NEAR OPTIMAL 100 - 129BORDERLINE HIGH 130 - 159 HIGH 160 - 189 VERY HIGH > 189 ID Date Data Source [id number] 04/23/2019 03:15:52 AM EST [facility] Name Value Range Interpretation Code Description Data Marva rce(s) Supporting Document(s) SODIUM 137 mmol/L (136-145) [facility] POTASSIUM 4.3 mmol/L (3.6-5.2) [facility] CHLORIDE 105 mmol/L (100-108) [facility] CO2 24 mmol/L (22-31) [facility] ANION GAP 8 mmol/L (7-16) [facility] UREA NITROGEN 21 mg/dL (7-24) [facility] CREATININE 1.12 mg/dL (0.60-1.00) H [facility] BUN/CREAT RATIO 18.8 RATIO (10.0-20.0) [facility] GLUCOSE 219 mg/dL (70-99) H [facility] CALCIUM 8.9 mg/dL (8.4-10.2) [facility] GFR 48 ml/min/1.73m2 (>59) L [facility] GFR ( AMER) 58 ml/min/1.73m2 (>59) L [facility] GFR INTERPRETATION [facility] --NORMAL KIDNEY FUNCTION OR MILD DISEASE - GFR >OR= 60CHRONIC KIDNEY DISEASE - GFR 15 - 59RENAL FAILURE - GFR <15 Est. GFR calculation based on the MDRDstudy equation, which assumes a steadystate for creatinine. Est. GFR should notbe used for medication dosing. ID Date Data Source [id number] 04/23/2019 02:53:25 AM EST [facility] Name Value Range Interpretation Code Description Data Marva rce(s) Supporting Document(s) WBC 8.6 10*3/uL (4.1-11.0) [facility] RBC 3.70 10*6/uL (4.00-5.40) L [facility] HGB 10.8 g/dL (12.0-16.0) L [facility] HCT 32.8 % (36.0-47.0) L [facility] MCV 88.7 fL (80.0-95.0) [facility] MCH 29.2 pg (27.0-32.0) [facility] MCHC 32.9 g/dL (32.0-36.0) [facility] RDW 13.3 % (10.5-14.5) [facility] PLT 205 10*3/uL (150-450) [facility] MPV 8.7 fL (7.1-10.7) [facility] NEUT % 69.5 % (35.0-75.0) [facility] LYMPH % 21.4 % (16.0-52.0) [facility] MONO % 7.7 % (0.0-8.0) [facility] EOS % 0.9 % (0.0-5.0) [facility] BASO % 0.5 % (0.0-4.0) [facility] NEUT # 6.0 10*3/uL (1.8-7.7) [facility] LYMPH # 1.8 10*3/uL (1.2-4.8) [facility] MONO # 0.7 10*3/uL (0.0-0.8) [facility] Eosinophils [#/volume] in Blood by Automated count 0.1 10*3/uL (0.0-0 .5) [facility] BASO # 0.0 10*3/uL (0.0-0.2) [facility] ID Date Data Source [id number] 04/23/2019 01:23:19 AM EST [facility] Name Value Range Interpretation Code Description Data Marva rce(s) Supporting Document(s) POC NOVA GLU 161 mg/dL (70-99) H [facility] [place] [facility] ID Date Data Source [id number] 04/22/2019 07:05:47 PM EST [facility] Name Value Range Interpretation Code Description Data Marva rce(s) Supporting Document(s) POC NOVA GLU 272 mg/dL (70-99) H [facility] [place] [facility] ID Date Data Source [id number] 04/22/2019 05:34:17 PM EST [facility] Name Value Range Interpretation Code Description Data Marva rce(s) Supporting Document(s) WBC 6.9 10*3/uL (4.1-11.0) [facility] RBC 3.64 10*6/uL (4.00-5.40) L [facility] HGB 11.0 g/dL (12.0-16.0) L [facility] HCT 32.1 % (36.0-47.0) L [facility] MCV 88.0 fL (80.0-95.0) [facility] MCH 30.1 pg (27.0-32.0) [facility] MCHC 34.2 g/dL (32.0-36.0) [facility] RDW 13.3 % (10.5-14.5) [facility] PLT 203 10*3/uL (150-450) [facility] MPV 8.7 fL (7.1-10.7) [facility] ID Date Data Source [id number] 04/22/2019 03:04:00 PM EST [facility] Name Value Range Interpretation Code Description Data Marva rce(s) Supporting Document(s) Red Blood Count 11.9 [facility] ([facility]io [facility]) White Blood Count 8.5 [facility] ([facility]) Hemoglobin 11.9 [facility] ([facility]) Platelets 241 [facility] Hematocrit 34.9 [facility] ([facility]) ID Date Data Source [id number] 04/22/2019 03:04:00 PM EST [facility] Name Value Range Interpretation Code Description Data Marva rce(s) Supporting Document(s) Magnesium Level 1.8 [facility] ([facility]) Natriuretic peptide.B prohormone N-Terminal [Mass/volu me] in Serum or Plasma 336 [facility] ([employer] [facility]) Troponin 19.70 [facility] (Cardiology [facility]) ID Date Data Source [id number] 04/22/2019 03:04:00 PM EST [facility] ([facility]) Name Value Range Interpretation Code Description Data Marva rce(s) Supporting Document(s) Hemoglobin A1c/Hemoglobin.total in Blood 8.3 [facility] (Cardiology [facility]) ID Date Data Source [id number] 04/22/2019 03:04:00 PM EST [facility] ([facility]) Name Value Range Interpretation Code Description Data Marva rce(s) Supporting Document(s) Albumin [Mass/volume] in Serum or Plasma 3.7 [facility] ([facility]) Alanine aminotransferase [Enzymatic activity/volume] in Serum or Pl asma 28 [facility] (Cardiology [facility]) Chloride [Moles/volume] in Serum or Plasma 100 [facility] ([facility]) Carbon dioxide, total [Moles/volume] in Serum or Plasma 28 [facility] (Cardiology [facility]) Calcium [Mass/volume] in Serum or Plasma 9.8 [facility] ([facility]) Protein [Mass/volume] in Serum or Plasma Laboratory test result [facility] (Cardiology [facility]) Alkaline phosphatase [Enzymatic activity/volume] in Serum or Plasma 6 5 [facility] (Cardiology [facility]) Potassium [Moles/volume] in Serum or Plasma 3.7 [facility] ([facility]) Aspartate aminotransferase [Enzymatic activity/volume] in Serum or Plasma 86 [facility] ([facility]) Sodium 136 [facility] ([facility]) Glucose 298 [facility] ([facility]) Urea nitrogen [Mass/volume] in Serum or Plasma 22 [facility] ([facility]) Creatinine For GFR 1.12 [facility] ([facility]) ID Date Data Source [id number] 04/22/2019 02:07:49 PM EST [facility] NT INFORMATIONPatient MRN Name Date of Age Gend*PT [id number] Mireille Rodas 1945 73 years F IPPT Location Admission Date/Time Visit ID Attending [id number] 04/22/19 0327 --- Dinesh Small MD([id number]) EPI ID CSN Admitting Provider [id number] Jennifer Cruz MD([id number]) Attestation signed by Jennifer Cruz MD at 04/22/2019 2:07 PMI have reviewed the notes, assessments, and/or procedures performed by Johnathon, I concur with her/his documentation of Mireille Rodas. Seen04/22/19. Patient presents as a direct transfer from outside facility for chestpain. It was found the patient did have an elevation of troponin. Patient willcontinue with heparin drip. Cardiology consult for possible cardiac cath.Continue with ASA and plavix. Patient not having chest pain this morning. Agreewith insulin regimen as below. ADMISSION HISTORY AND PHYSICALName: Mireille Rodas Gender: femaleDate of : 1945 Age: 73 yearsDate/Time of Admit: 04/22/2019 3:27 AM Code Status: Full CodePrimary Care Provider / Referring Physician: EBER YI MDInformant:Current HistoryChief Complaint: Elevated troponinHPI:This patient is a 73 years female with medical history of uncontrolled type 2diabetes, hypertension, diabetic neuropathy, diabetic foot wound, PAD statuspost stent, who transfers from [facility] with elevated troponin.Patient and her family at the bedside provide history. They report thatyesterday around 2 PM as she was watching TV she started to experience jaw pain,neck pain radiating to the left ear, the left shoulder blade, between theshoulder blades, and down the left arm. She also had a headache.Patient also reports that since February she had been having left neck painradiating to the left shoulder and occasionally down the left arm associatedwith occasional lightheadedness and sweating. She did not seek medicalattention until tonight when her symptoms increased in severity. She deniesever having any chest pain, shortness of breath, nausea, vomiting. She alsodenies fever, chills, body aches, diarrhea, cough, abdominal pain.The following work-up was done:WBC 7.7, H&H 12.4 and 38, platelets 277, PT/INR 10.3 and 0.99, glucose 491, BUN25, creatinine 1.3, potassium 4.2, sodium 134, chloride 95, CO2 29, anion gap10, AST and ALT 33 and 26. Lipase 300, magnesium 1.8, TSH 3.30. Troponin0.881-3.758.CT head without contrast: Mild to moderate maxillary sinus disease. No acuteintracranial findingCT cervical spine without contrast: No acute findings. Diffuse mild to moderatedegenerative disc diseasePatient was given aspirin load, 1 L of IV fluid, fentanyl, Plavix 300 mg,metoprolol tartrate 5 mg IV push x3, nitroglycerin. She also received heparinbolus and drip.Patient reports that she had a heart attack in 2014 luis collado tells me she neverhad a heart catheter. Per chart review, she had a cardiac stress test in 2014which revealed no stress inducible angina. Electrocardiographicallyinconclusive for detection of myocardial ischemia due to baseline repolarizationabnormalities. Reversible very small basal inferior wall defect consistent witha regadenoson inducible coronary flow.distribution in the right coronary arteryterritory. Normal LV wall motion. This study was similar to previous studywhich was done in 2012. Patient was supposed to follow-up with her cardiologisthowever tells me she was never seen again since she had a cardiac stress test.Per chart review under [facility] connections, patient has been seen by herpodiatrist multiple times for the same callus on the right distal metatarsallaterally and left hallux ingrown nail that is infected. Reports that has beentreated with antibiotics multiple times. The last time she was seen in was prescribed tedizolid phosphate with great improvement. She is scheduledto see the vascular surgeon mid-April.Patient is a past smoker she has [id number] smoking history. She deniesillicit drug use, EtOH use, chronic kidney disease, history of major bleeding.Family at the bedside reports that her diabetes has been very poorly controlled.She has many highs and many lows in her blood sugar. Daughter also reports thatpatient is not compliant with her medications including with her insulin.Additionally patient tells me that she does not check her blood glucose as sheshould.Supply Specialist: view of Systems:Review of SystemsConstitution: Positive for diaphoresis. Negative for chills, decreased appetite,fever, malaise/fatigue, night sweats, weight gain and weight loss.HENT: Negative for congestion, ear discharge, ear pain, hearing loss, hoarsevoice, nosebleeds, odynophagia, sore throat, stridor and tinnitus.Eyes: Negative for blurred vision, discharge, double vision, pain, photophobia,redness, vision loss in left eye, vision loss in right eye, visual disturbanceand visual halos.Cardiovascular: Positive for claudication. Negative for chest pain, cyanosis,dyspnea on exertion, irregular heartbeat, leg swelling, near-syncope, orthopnea,palpitations, paroxysmal nocturnal dyspnea and syncope. Patient did not have chest pain. Reports neck pain, jaw pain radiatingbetween the shoulder blades and to the left shoulder, also radiating down theleft arm occasionally associated with lightheadedness and diaphoresis.Respiratory: Negative for cough, hemoptysis, shortness of breath, sleepdisturbances due to breathing, snoring, sputum production and wheezing.Endocrine: Negative for cold intolerance, heat intolerance, polydipsia,polyphagia and polyuria.Hematologic/Lymphatic: Negative.Skin: Positive for poor wound healing.Musculoskeletal: Negative.Gastrointestinal: Negative for bloating, abdominal pain, anorexia, change inbowel habit, bowel incontinence, constipation, diarrhea, dysphagia, excessiveappetite, flatus, heartburn, hematemesis, hematochezia, hemorrhoids, jaundice,melena, nausea and vomiting.Genitourinary: Negative for bladder incontinence, dysuria, flank pain,frequency, genital sores, hematuria, hesitancy, incomplete emptying, nocturia,pelvic pain and urgency.Neurological: Positive for light-headedness (During anginal episodes). Negativefor aphonia, brief paralysis, difficulty with concentration, disturbances incoordination, excessive daytime sleepiness, dizziness, focal weakness, loss ofbalance, paresthesias, seizures, sensory change, tremors, vertigo and weakness.Psychiatric/Behavioral: Negative.Allergic/Immunologic: Negative.Past HistoryPast Medical History:Diagnosis Date Abnormal EKG [address] bell, baseline EKG is sinus rhythm, frequent PACs, poor Rwave progression, nonspecific ST-T wave abnormality, repol arizationabnormalities. Anxiety Cellulitis of left toe Diabetic neuropathy GERD (gastroesophageal reflux disease) Hypercholesterolemia Hypertension Onychomycosis Paronychia of great toe of left foot 04/22/2019 Peripheral artery disease Type 2 diabetes mellitus Wound healing, delayedPast Surgical History:Procedure Laterality Date BREAST BIOPSY Cardiac stress test For cardiac stress tests last one was in 2014: No stress inducible angina.Electrographically inconclusive for detection of myocardial ischemia due tobaseline repolarization abnormality. Reversible very small basal inferior walldefect consistent with regadenoson inducible coronary flow no distribution inthe right coronary artery territory. Normal LV wall motion Cataract surgery CHOLECYSTECTOMY Myocardial infarction 1992 OOPHORECTOMY Peripheral artery stenting Right leg TUBAL LIGATION WOUND DEBRIDEMENTFamily HistoryProblem Relation Age of Onset Diabetes type II Mother Myocardial Infarction ([place] Mother Heart disease Father [place] Father [place] Brother Age 59 [place] ([place] Brother age 46 Heart attack Sister age 72Social HistorySocial History Narrative Patient has family members she lives with She is scheduled to see a vascular surgeon mid April 2019Social HistorySocioeconomic History Marital status: Spouse name: Not on file Number of children: Not on file Years of education: Not on file Highest education level: Not on fileOccupational History Occupation: retiredSocial Needs Financial resource strain: Not hard at all Food insecurity: Worry: Never true Inability: Never true Transportation needs: Medical: No Non-medical: NoTobacco Use Smoking status: Former Smoker Packs/day: 1.50 Years: 30.00 Pack years: 45.00 Last attempt to quit: 1992 Years since quittin.0 Smokeless tobacco: Never UsedSubstance and Sexual Activity Alcohol use: Not Currently Comment: Occasionally Drug use: Never Sexual activity: Not on fileLifestyle Physical activity: Days per week: Not on file Minutes per session: Not on file Stress: Not on fileRelationships Social connections: Talks on phone: Not on file Gets together: Not on file Attends voodoo service: Not on file Active member of club or organization: Not on file Attends meetings of clubs or organizations: Not on file Relationship status: Not on file Intimate partner violence: Fear of current or ex partner: Not on file Emotionally abused: Not on file Physically abused: Not on file Forced sexual activity: Not on fileOther Topics Concern Not on fileSocial History Narrative Patient has family members she lives with She is scheduled to see a vascular surgeon mid April 2019Medications and AllergiesALLERGIES/SENSITIVITIES: No Known Drug AllergiesScheduled Meds: aspirin EC 81 mg Oral Daily atorvastatin 80 mg Oral Nightly carvedilol 12.5 mg Oral BID clopidogrel 75 mg Oral Daily DULoxetine 60 mg Oral Daily gabapentin 400 mg Oral Nightly Magnesium Oxide 400 mg Oral BID normal saline flush 3 mL Intravenous Q8H YIN pneumococcal conj. 13-valent 0.5 mL Intramuscular During hospitalizationContinuous Infusions: heparin (porcine) in NaCl 12 Units/kg/hr (04/22/19 2670) sodium chloridePRN Meds:.acetaminophen, atropine sulfate, heparin (porcine), nitroglycerin,ondansetronPhysicalBlood Pressure: BP: 172/77 Pulse: Heart Rate: 97Temperature: Temp: 98.3 F Respirations: Resp: 17Admission Weight: Weight: 63.7 kg (140 lb 6.4 oz) O2 Saturation: SpO2: 96 %Today's Weight: Weight: 63.7 kg (140 lb 6.4 oz)Physical ExamPhysical ExamConstitutional: She is oriented to person, place, and time. She appearswell-developed and well-nourished. No distress.HENT:Head: Normocephalic and atraumatic.Right Ear: External ear normal.Left Ear: External ear normal.Nose: Nose normal.Mouth/Throat: Oropharynx is clear and moist. No oropharyngeal exudate.Eyes: Pupils are equal, round, and reactive to light. Conjunctivae and EOM arenormal. Right eye exhibits no discharge. Left eye exhibits no discharge. Noscleral icterus.Neck: Normal range of motion. Neck supple. No JVD present. No tracheal deviationpresent. No thyromegaly present.Cardiovascular: Normal rate, regular rhythm, S1 normal, S2 normal, normal heartsounds and intact distal pulses. Exam reveals no gallop and no friction rub.No murmur heard.Pulses: Dorsalis pedis pulses are 1+ on the right side, and 1+ on the left side. Posterior tibial pulses are 1+ on the right side, and 1+ on the left side.Pulmonary/Chest: Effort normal and breath sounds normal. No stridor. Norespiratory distress. She has no wheezes. She has no rales. She exhibits notenderness.Abdominal: Soft. Bowel sounds are normal. She exhibits no distension and nomass. There is no tenderness. There is no rebound and no guarding.Musculoskeletal: Normal range of motion. She exhibits no edema or deformity.Lymphadenopathy: She has no cervical adenopathy.Neurological: She is alert and oriented to person, place, and time. She hasnormal reflexes.Skin: Skin is warm and dry. She is not diaphoretic. There is pallor.Left great toe infected ingrown nail mediallyCallus distal metatarsal right foot laterallyPsychiatric: She has a normal mood and affect. Her behavior is normal.DiagnosticsLab pendingAssessment & PlanThis is 73-year-old female patient with longstanding uncontrolled diabetes,hypertension, diabetic neuropathy, PAD status [facility] stent, [facility]. Patient has had anginal symptoms sinceFebruary. In [facility] his troponin was 0.88 1 3.758. She was loaded withPlavix and aspirin and started on heparin drip. Patient was also found to behyperglycemic with a blood glucose of 499. She was given 8 units of insulin.She does have 76-[id number]-frcy smoking history and strong family history for cardiacdisease. Elevated troponinPresently offers no anginal complaints EKG sinus rhythm with old inferior andanteroseptal infarctTroponin 0.881-3.758Admit to telemetryContinue heparin for full anticoagulationContinue aspirin and PlavixCoreg with parameters, statin, nitro sublingual as needed, and nitroglycerinpasteUpdate lipid panel, hemoglobin H2qLyvhstd oxygen to keep saturations greater than 94%Obtain stat EKG for any chest painIV fluid hydration in preparation for cardiac catheterizationKeep n.p.o. until evaluated by [id number] sugar was greater than 450 at referring facility was a closed anion gap.She received 8 units of insulinShe is on a total of 170 units of insulin daily on top of Victoza, metformin,glimepirideStart Lantus and sliding scale nutritional correctionObtain nutritional consult and religious educator consultParonychia of the left great toe mediallySjillian is closely followed by her vice president of compliance. She recently finished a course ofSivextro with successful outcomes per daughter. MonitorSjillian also has a right distal metatarsal callus laterallyDiabetic neuropathyContinue gabapentin 4 mg nightlyHypertensionHer BP was difficult to control at referring facility. She was given IVLopressor 5 mg x 3. She was also given nitroglycerin sublingual and pasteCoreg 12 and half milligrams twice dailyHold ACOSTA inhibitor in preparation for cardiac catheterizationHypercholesterolemiaUpdate lipid panelStart atorvastatin high intensityAnxiety/depressionDuloxetine 60 mg dailyDVT prophylaxisHeparin dripCODE STATUS: Full codeD/W ature: Yuri Sosa NPDate: April 22, 2019Time: 5:40 AM Name Value Range Interpretation Code Description Data Marva rce(s) Supporting Document(s) ID Date Data Source [id number] 04/22/2019 01:58:39 PM EST [facility] Name Value Range Interpretation Code Description Data Marva rce(s) Supporting Document(s) TROPONIN I 15.10 ng/mL (<0.05) [facility] [place] Less than 0.05: Myocardial injury unlike lyGreater than or equal to 0.05: Highly suggestive of myocardial injuryCorrelation with rise and/or fall ofserial troponins, clinical symptomsand ECG changes is necessary.ALERTED CRITICAL RESULT [place]AN[place]([id number]) [place] [address] ON 04/22/19 [place]5 [place] [id number] ID Date Data Source [id number] 04/22/2019 01:59:54 PM EST [facility] Name Value Range Interpretation Code Description Data Marva rce(s) Supporting Document(s) POC NOVA GLU 334 mg/dL (70-99) H [facility] [place] PERFORMED BY [facility]INICAL STAFF ID Date Data Source [id number] 04/22/2019 08:33:41 AM EST [facility]PAT[facility] NT INFORMATIONPatient MRN Name Date of Age Gend*PT [id number] Dru Mireille Hanna 1945 73 years F IPPT Location Admission Date/Time Visit ID Attending [id number] 04/22/19 0327 --- Dinesh Small MD([id number]) EPI ID CSN Admitting Provider [id number] Jennifer Cruz MD([id number]) Attestation signed by Marc Menendez MD at 04/22/2019 8:33 AMI saw and evaluated the patient and reviewed PA's note. I agree with thehistory, physical and medical decision making with the following additions,exceptions, and/or observations:Patient was seen and examined. Patient is undergone cardiac catheterization [id number] and was found to have moderate disease of the right coronary artery whichdid not require treatment. She is now suffered a non-ST segment elevation MIwith concerning symptoms that are persisting and EKG changes consistent with aprevious [place] and some moderate changes anteriorly which may be new. She hasbeen started on heparin and will need to go for cardiac catheterizationurgently this morning due to persistent symptoms and elevated troponin.Patient is on dual antiplatelet therapy. will perform cardiaccatheterization now on an urgent basis and this was discussed with thepatient's family and the patient and all questions were an swered concerning theprocedure. Further recommendations will be pending the results of herprocedure.Signature: Marc Menendez, MDDate: April 22, 2019Time: 8:31 AM Cardiology History and PhysicalName: Mireille Rodas Gender: femaleDate of : 1945 Age: 73 yearsDate/Time of Admit: 04/22/2019 3:27 AM Code Status: Full CodePrimary Care ProviderReferring Physician: Trinh HAAS [facility] Complaint: jaw/shoulder painReason for consult: NSTEMIHPI: The patient is a 73-year-old female with a past medical history as follows:1. Uncontrolled type 2 diabetes2. Hypertension3. Hyperlipidemia4. Diabetic neuropathy, diabetic foot wound follows with podiatry, left toe5. PAD status post stenting6. Distant history of tobacco use7. Family history of premature coronary artery diseaseThe patient was transferred from [facility] for elevated troponin (0.881,3.758, now trended up to 19 here). Review of EKG shows sinus rhythm with poor Rwave progression. The patient tells me that she has been told in the past thatshe had had a heart attack but had never underwent cardiac catheterization.Reportedly stress test and echocardiogram were unremarkable and she did notfollow with cardiology. [facility]The patient presented to the hospital yesterday evening after an episode of jawpain around 2 PM described as an aching sensation. She denies any accompanyingdiaphoresis, nausea or dyspnea. She tells me that over the past 4-5 weeks shehas had left shoulder pain with radiation into her neck. This is not exertionalbut has been coming progressively more frequent. At her baseline she is fairlysedentary. She denies any PND, orthopnea or palpitations. Denies any historyof bleeding or bruising. She has been NPO. She takes ASA, plavix 75mg daily dueto her PAD. She is on a BB and low dose statin therapy.On exam the patient initially denied chest pain with 0.[address] Then developed 4/10 left shoulder pain with mild lightheadedness. Noother associated symptoms. No changes on ECG.HistoryPast Medical History:Diagnosis Date Abnormal EKG [address] bell, baseline EKG is sinus rhythm, frequent PACs, poor Rwave progression, nonspecific ST-T wave abnormality, repolarizationabnormalities. Anxiety Cellulitis of left toe Diabetic neuropathy GERD (gastroesophageal reflux disease) Hypercholesterolemia Hypertension Onychomycosis Paronychia of great toe of left foot 04/22/2019 Peripheral artery disease Type 2 diabetes mellitus Wound healing, delayedPast Surgical History:Procedure Laterality Date BREAST BIOPSY Cardiac stress test For cardiac stress tests last one was in 2014: No stress inducible angina.Electrographically inconclusive for detection of myocardial ischemia due tobaseline repolarization abnormality. Reversible very small basal inferior walldefect consistent with regadenoson inducible coronary flow no distribution inthe right coronary artery territory. Normal LV wall motion Cataract surgery CHOLECYSTECTOMY Myocardial infarction 1992 OOPHORECTOMY Peripheral artery stenting Right leg TUBAL LIGATION WOUND DEBRIDEMENTSocial HistorySocioeconomic History Marital status: Spouse name: Not on file Number of children: Not on file Years of education: Not on file Highest education level: Not on fileOccupational History Occupation: retiredSocial Needs Financial resource strain: Not hard at all Food insecurity: Worry: Never true Inability: Never true Transportation needs: Medical: No Non-medical: NoTobacco Use Smoking status: Former Smoker Packs/day: 1.50 Years: 30.00 Pack years: 45.00 Last attempt to quit: 1992 Years since quittin.0 Smokeless tobacco: Never UsedSubstance and Sexual Activity Alcohol use: Not Currently Comment: Occasionally Drug use: Never Sexual activity: Not CurrentlyLifestyle Physical activity: Days per week: Not on file Minutes per session: Not on file Stress: Not on fileRelationships Social connections: Talks on phone: Not on file Gets together: Not on file Attends voodoo service: Not on file Active member of club or organization: Not on file Attends meetings of clubs or organizations: Not on file Relationship status: Not on file Intimate partner violence: Fear of current or ex partner: Not on file Emotionally abused: Not on file Physically abused: Not on file Forced sexual activity: Not on fileOther Topics Concern Not on fileSocial History Narrative Patient has family members she lives with She is scheduled to see a vascular surgeon mid April 2019Family HistoryProblem Relation Age of Onset Diabetes type II Mother [place] ([place] Mother Heart disease Father [place]ocardial [place] Father [place] Brother Age 59 [place]ocardial Inf[place] ([place] Brother age 46 Heart attack Sister age 72Medications & AllergiesAllergies: No Known Drug AllergiesMedications:Medications Prior to AdmissionMedication Sig aspirin EC 81 MG EC tablet Take 81 mg by mouth daily carvedilol (COREG) 12.5 MG tablet Take 12.5 mg by mouth 2 (two) times a day chlorthalidone (HYGROTEN) 25 MG tablet Take 12.5 mg by mouth daily DULoxetine (CYMBALTA) 60 MG capsule Take 60 mg by mouth daily gabapentin (NEURONTIN) 600 MG tablet Take 600 mg by mouth nightly glimepiride (AMARYL) 4 MG tablet Take 4 mg by mouth Twice daily after meals insulin detemir (LEVEMIR) 100 UNIT/ML injection Inject 90 Units under the skinnightly Liraglutide (VICTOZA) 18 MG/3ML SOPN Inject 1.8 mg under the skin daily Magnesium Oxide (MAG-OX) 400 MG tablet Take 400 mg by mouth 2 (two) times aday metFORMIN (GLUCOPHAGE) 1000 MG tablet Take 1,000 mg by mouth 2 (two) times aday with meals ranitidine (ZANTAC) 150 MG capsule Take 150 mg by mouth 2 (two) times a day simvastatin (ZOCOR) 40 MG tablet Take 40 mg by mouth nightly spironolactone (ALDACTONE) 50 MG tablet Take 50 mg by mouth daily trandolapril (MAVIK) 1 MG tablet Take 1 mg by mouth daily Scheduled Meds: aspirin EC 81 mg Oral Daily atorvastatin 80 mg Oral Nightly carvedilol 12.5 mg Oral BID clopidogrel 75 mg Oral Daily DULoxetine 60 mg Oral Daily gabapentin 400 mg Oral Nightly insulin glargine 30 Units Subcutaneous Nightly insulin lispro 1-16 Units Subcutaneous With meals sliding scale insulin regular 5 Units Subcutaneous Once Magnesium Oxide 400 mg Oral BID nitroglycerin 0.5 g Topical Once nitroglycerin 1 g Topical Q6H YIN normal saline flush 3 mL Intravenous Q8H YIN pneumococcal conj. 13-valent 0.5 mL Intramuscular During hospitalizationContinuous Infusions: heparin (porcine) in NaCl 12 Units/kg/hr (04/22/19 0428) sodium chloride 75 mL/hr at 04/22/19 0544PRN Meds:.acetaminophen, atropine sulfate, heparin (porcine), nitroglycerin,ondansetronReview of Systems General Admits dizziness or lightheadedness. Denies any recent, unexpectedweight changes. HEENT Denies any loss or change of vision. Respiratory Denies PND, orthopnea,hemoptysis, cough, no shortness of breath,or ADORNO. Cardiac Admits shoulder and jaw pain. Denies chest pain or pressure, nopalpitations GI Denies melena, hematochezia, nausea, or vomiting. MS Denies warm or swollen joints. Neuro Denies speech, motor, or sensory impairment. Psych Denies depression or anxiety. Endo Denies polyuria or polydipsia, denies temperature intolerance. Derm Denies diaphoresis, admits non-healing skin woundsPhysicalTemp (24hrs), Av.3 F, Min:98.3 F, Max:98.3 FBlood Pressure: BP: 162/70 Pulse: Heart Rate: 101Temperature: Temp: 98.3 F Respirations: Resp: 16Admission Weight: Weight: 63.7 kg (140 lb 6.4 oz) O2 Saturation: SpO2: 95 %Today's Weight: Weight: 63.7 kg (140 lb 6.4 oz) BMI: Body mass index is 27.42kg/m .Intake/Output Summary (Last 24 hours) at 04/22/2019 0811Last data filed at 04/22/2019 0548Gross per 24 hourIntake 25.4 mlOutput 500 mlNet -474.6 mlPhysical Exam General Well developed, well nourished, no acute distress Neck No JVD, no bruits Chest Non-tender to palpation Lungs Clear to auscultation, no crackles, rhonchi, or wheezes Heart Normal S1 S2, no murmurs, rub, or gallops Abdomen Soft, non-tender, non-distended, no palpable HSM or masses, + bowelsounds Neuro AAOx3, no focal motor or sensory deficit Derm No rashes, or ulcers Extremities no cyanosis, no clubbing and edema. Distal pulses are presentDiagnosticsCardiac:Lab ResultsComponent Value Date TROPONINI 19.70 (HH) 04/22/2019 PROBNP 336 (H) 04/22/2019CBC Brief:Lab ResultsComponent Value Date WBC 8.5 04/22/2019 HGB 11.9 (L) 04/22/2019 HCT 34.9 (L) 04/22/2019 PLT 241 04/22/2019CMP:Lab ResultsComponent Value Date NA 136 04/22/2019 K 3.7 04/22/2019 CL 100 04/22/2019 CO2 28 04/22/2019 ANIONGAP 8 04/22/2019 BUN 22 04/22/2019 CREATININE 1.12 (H) 04/22/2019 BCR 19.6 04/22/2019 GLU 298 (H) 04/22/2019 CALCIUM 9.8 04/22/2019 ALBUMIN 3.7 04/22/2019 GLOB 3.7 04/22/2019 AGRC 1.0 04/22/2019 ALKPHOS 65 04/22/2019 LABBILI 0.2 04/22/2019 AST 86 (H) 04/22/2019 ALT 28 04/22/2019 GFRAA 58 (L) 04/22/2019 GFRNONAA 48 (L) 04/22/2019HgbA1c:Lab ResultsComponent Value Date HGBA1C 8.3 (H) 04/22/2019Hyperlipidemia: No results found for: CHOL, TRIG, HDL, CHOLHDL, LDL, LDLCALCMagnesium:Lab ResultsComponent Value Date MG 1.8 04/22/2019Renal:Lab ResultsComponent Value Date NA 136 04/22/2019 K 3.7 04/22/2019 CL 100 04/22/2019 CO2 28 04/22/2019 ANIONGAP 8 CALCIUM 9.8 04/22/2019 GLU 298 (H) 04/22/2019 BUN 22 04/22/2019 CREATININE 1.12 (H) 04/22/2019 GFRAA 58 (L) 04/22/2019 GFRNONAA 48 (L) 04/22/2019ECG: SR, poor r-wave progressionTelemetry: SRAssessment and PlanPrincipal Problem: Elevated troponinActive Problems: Diabetic neuropathy Type 2 diabetes mellitus Wound healing, delayed Hypertension Hypercholesterolemia Abnormal EKG Peripheral artery disease Anxiety Paronychia of great toe of left footNSTEMI- patient presents with elevated troponin and shoulder/jaw pain. Continueto trend troponins to peak. She has history of poor r-wave progression and hadprior stress test that was reportedly normal. Currently on heparin gtt. Shetakes ASA and Plavix daily for her PAD, which we will continue. Continue BB.Will increase nitropaste. SLNG as needed. Patient is NPO for cardiaccatheterization.HTN- poorly controlled. Continue BB. Recheck after morning medicationsPAD- has vascular consult in [place] late April. History of nonhealing lefttoe infection. Stable.HLD- statin changed to high intensity statin. Check lipid panel.DM- diabetic consult requested. Continue insulin SS.Patient to follow up with Dr. Rodriguez as an outpatient.Signature: FORTUNATO Jaramilloate: April 22, 2019Time: 8:11 AM Name Value Range Interpretation Code Description Data Marva rce(s) Supporting Document(s) ID Date Data Source [id number] 04/22/2019 08:09:47 AM EST [facility] Name Value Range Interpretation Code Description Data Marva rce(s) Supporting Document(s) EKG [facility] WBYCQs3fXpZLBbCnu9MsOsWvZVHiNS0mcsw1O0A1sPTqD6KwbZRzr9jqB7FtF6TuQZNqGJZWTS6YzCMi jb2 [file] apZhY48NL75CmdI4+bH7Q+cement finisher apprentice/fq3rT5jMsnf+Wv2bjxS8UTZtRa+rVeW42d9SGGrz+hkX3h/geK32QT 1/QWpTzkzzs0oce9WZtwlUu2ETqm41dFxl13+0jLgT1X+30qr8hDL/gX638E9fdfSHv901blV/5/vSKw I/XK/HgR++s9+BH/WZRr++CBuratuk05/T/t/py7pP IY3mizsbxx68rH7G5/2X0kA2QgugEjP2o72wJ8Yvziu7h1vJYsGcUfQ/fE+bAz+mokG3PMoFmT2ojEoU yIzCS434r1eGdnvpjpabi/VivusZM9/4yCxuiw61mLgl0Wn1Cj6QSCc3d3dIA+8OMN+2vPSLlN5t7FeX 2owqP39+e2x0ndxm5xQoAjdgzR6HOv5sL6Ezg4+3cu VAd4ff9Rfkn6Fcn24/kZICAv0N4ZAh4mfAkhVB4wXb4bxjYb9/d/qiuzMd+HH9yNv19mi/Zgfl085d+O XnwMf64crKPziiHBdM/ATvcj93ZOU/qH1Q/wseoYpUtO7qH5s+iu/q/nIHfvjecwd++R07Z183PhTDvs ljJOejxcygU1Ow2YCt3Ksi9yo8/elwpMVtW18JS3eP zrGx3mlY2/h9jMxdFh/sSz018s1BanAb9J/TpGpm91rWuooqFED2eaB0aAeI3VM1X5ACpa33aHJgmRjD dQ1mxCV8XR4f6sP4g5UAKC1B4n1Q/P4kAKbgV6IIukSzC+uNr3bUpS+k58/8C8yGtGgT/PcGfryrwPdH TgR+vN+jh1w2xkwX+PH+z3x3+DcxJLL2IbnkAH2E+f SFdSoc+PG+0eTaDoFqBV30h6v09q0R9idseUsvfx/0XklhrjK2mrOPfwWCD7qsSN2bkc1P29AkA57S+v HsvE8EqO8Nkz2cwJ9IF6q/KvDDt+M00XJ0wXr9yP9k/71SW0l9MMEV9RcY3dpnYxjMF2qCqDMS7nmYkH cR3EcK/JP2yG57rLgCAs41d4OYG73+ocAP3+PpwI+r KYag74zPRciEWtNcbta7Iobxfjblrdnsstq5ozdlhk5e1K8f7HD0j/Mony/Dote6b8EdPbGcj5HIFsR7M [file] [id number]= ID Date Data Source [id number] 04/22/2019 08:09:47 AM EST [facility] Name Value Range Interpretation Code Description Data Marva rce(s) Supporting Document(s) EKG [facility] IDMJDz2yJzAUKpDkf9VnEhJnVNKjCY0naxl6W1Q1mERiG3AcrVQgn7khK5FlX4PjHLMtQNCJKY3ZhQFv jb2 [file] ycq/cpM/AumchALmu5J+i7y1pm4m2/sQdYgLV/s16nOEgVZ9rag6LQ/zG13trb7eUl1lmck4VJO/Orchestra Teacher/9 +6Hqn97E55sc0r0aB3MxdagF17iupVY+RFkW99xvaSOkfdgKfOkm8zwv8tzg64LHs8i84su8QsD [file] 0TK7BnYUFgAQBHHIMhjqPsUs5eABMQJqxQK25SINUV JJmyQSKFYRoqSJZiIIt0CrkgMDZrF6YfnvSovMEoVPXKGEqqUykcTUDuyD3bzNefO6WpVHD8e7DqHO9H H2LnRNAkNHHZSWF5i9EdPWXkjgmdjaggKhZlHGZoGOOiLOBeUH9Sby8ypIRovtVlICDQKFckMtaiRI2p hXguhapmT6UhuPRgMQO+LyIiBJ6vbr9+CjEgMCBvYm v5LPCpFSjgSPCwMXUdWZExB3puXMDePtRmDTThNnUvUS0Rn6UclFAdXc8cuiQaElfVlLXzCcxpIRLoCM VoRMOkVgBWJOLrURQdEJNeQRB2TRKhRZUlNCsvACYxWEM0OvuaWHTbUKTuDL8tFeVwFIYjBMOaOXVlFF TpQBHvweIOWSHvNPM8POUqSQYzFXEeYXXjTYweTGGy PCUaIWWbZXG3COL5YVZnMeWiGTAaAPBrVACbRIViIHProiXEBSQvPIXpGSJ3PVPuDZVsXBHlOIhlADXh EIMiHPliVATqJDQyHY0gCpNtDPYgDYDiTKtnTAAlBOOwifYZXSJoTJXoCWBrTXHzBGAdDUKjPJmhRRLx OODbRWTvCZXnTUCfZA1jBbPdSXVdXLH8ONAsNXAzBM HpfyDKGHZbUYYlBWr4IMQgBTFpBNCmDHqzONGvEOLzVAA6VQHxZNTqKI0iPvQkPADxXGQ7UqCnRILoEG YohyLEFQFlSYVkXMF1GwCjQASbXUFdYCrxHQQnSZXpLKfkHYJhLJWcNC5vPpQkVJTtCDNjWEvrJTPqTC AgbiAKMDAwMDAwMTQwNiAwMDAwMCBuIAowMDAwMDUz WIZcHZAuNIJxUE0tQpKcXFViEHB0EJnpDIAcHBIbtnBYIAFfMRVqAExoQBBtPEGuIHZvNXfwMERcJTIa JTG9IASjAVQyFJ2qXjHrCYPbMPJeHSNgSbP6UbCtSsMKtPNtqEbfgzy6UJdlU8g7DYUmULjxTB2ktfPs BEWsUexyWi2eqJT1IFRoVeyBOi7Cs4XoyhV2kfRtOiT8ITS6NlOiUK6H ID Date Data Source [id number] 04/22/2019 11:23:15 AM EST [facility] Name Value Range Interpretation Code Description Data Marva rce(s) Supporting Document(s) SODIUM 136 mmol/L (136-145) [facility] POTASSIUM 4.4 mmol/L (3.6-5.2) [facility] CHLORIDE 99 mmol/L (100-108) L [facility] CO2 25 mmol/L (22-31) [facility] ANION GAP 12 mmol/L (7-16) [facility] UREA NITROGEN 19 mg/dL (7-24) [facility] CREATININE 1.03 mg/dL (0.60-1.00) H [facility] BUN/CREAT RATIO 18.4 RATIO (10.0-20.0) [facility] GLUCOSE 350 mg/dL (70-99) H [facility] CALCIUM 9.1 mg/dL (8.4-10.2) [facility] GFR 53 ml/min/1.73m2 (>59) L [facility] GFR ( AMER) >60 ml/min/1.73m2 (>59) [facility] GFR INTERPRETATION [facility] --NORMAL KIDNEY FUNCTION OR MILD DISEASE - GFR >OR= 60CHRONIC KIDNEY DISEASE - GFR 15 - 59RENAL FAILURE - GFR <15 Est. GFR calculation based on the MDRDstudy equation, which assumes a steadystate for creatinine. Est. GFR should notbe used for medication dosing. ID Date Data Source [id number] 04/22/2019 10:01:35 AM EST [facility] Name Value Range Interpretation Code Description Data Marva rce(s) Supporting Document(s) TROPONIN I 19.60 ng/mL (<0.05) [facility] [place] Less than 0.05: Myocardial injury unlike lyGreater than or equal to 0.05: Highly suggestive of myocardial injuryCorrelation with rise and/or fall ofserial troponins, clinical symptomsand ECG changes is necessary.ALERTED CRITICAL RESULT TOANNA(6502) [place] D.5 [place] [address] ON 954292 AT 1000 BY [address] ID Date Data Source [id number] 04/22/2019 07:29:00 AM EST [facility] Patient: MIREILLE RODAS tienma Report - Physicians/[facility].VisitID: [id number] [place] [address] [phone], FRegistrasaint francis healthcare Date/Time: 04/21/2019 20:12 Weight:63.5 kg (S). Height/Length:60 inches (S). BMI:27.3 PAST HISTORYProblems:Hypertension [Chronic].Diabetes Mellitus Type 2 [Chronic].Gastroesophageal Reflux [Chronic].Heart Disease [Chronic].Coronary Artery Disease [Chronic].Hypercholesterolemia [Chronic].Anxiety Reaction.Contusion.Cellulitis.Peripheral Vascular Disease.Laceration.Atypical Chest Pain [Resolved]. Additional Surgeries:Breast Biopsy.Cardiac Catheterization.Cardiac Procedures.Cataract Surgery.Cholecystectomy.Oophorectomy.Stent in right leg.Tubal Ligation. Medications:Aspirin Oral (Tablet 81 mg) 1 tablet, daily, last dose last pm.Chlorthalidone Oral (Tablet 25 mg) 1/2 tablet, daily, last dose yesterday.DULoxetine HCl Oral (Capsule Delayed Release Particles 60 mg) 1 capsule, daily, last dose yesterday am.Gabapentin Oral 600mg, at bedtime, last dose yest.Glimepiride Oral (Tablet 4 mg) 1 tablet, twice a day, last dose last pm.Levemir Subcutaneous 90units, daily, last dose last pm.Magnesium Oxide Oral (Tablet 400 mg) 1 tablet, twice a day, last dose 1 week ago.MetFORMIN HCl Oral (Tablet 1000 mg) 1 tablet, 2x a day, last dose last pm.Simvastatin Oral 40 mg, daily, last dose yest.Spironolactone Oral 50 mg, daily, last dose yesterday.Trandolapril Oral 1 mg, daily, last dose yesterday.Victoza Subcutaneous (Solution Pen-injector 18 mg/3mL) 1.8 mg, daily, last dose last night. Allergies:No Known Drug Allergy.No Known Environmental Allergies. FAMILY HISTORY( siblings and parents both all had acute [place]'s and brother at age 46). (Electronically signed by Luis Carlos Diallo P.A. 04/22/2019 07:27) Name Value Range Interpretation Code Description Data [facility] rce(s) Supporting Document(s) ID Date Data Source [id number] 04/22/2019 07:22:00 AM EST [facility] DATE OF EXAMINATION: 04/21/2019 22:10 ES T CHEST 2 VIEWS HISTORY: Left shoulder pain TECHNIQUE: PA and lateral radiographs of the chest COMPARISON: None. FINDINGS: Calcified granuloma are present in the lungs. The heart is normal in size. Thepulmonary vasculature is normal in appearance. The bony structure is intact.. IMPRESSION: No acute disease.. Electronically signed in PS360 by: Evaristo Estrada M.D. 04/22/2019 7:17 EST Name Value Range Interpretation Code Description Data Marva rce(s) Supporting Document(s) ID Date Data Source [id number] 04/22/2019 07:20:00 AM EST [facility] DATE OF EXAMINATION: CT head W/O CONTRA ST HISTORY: Trauma TECHNIQUE: This CT exam was performed using the following dose reduction techniques:automated exposure control, adjustment of mA and/or kV according to thepatient's size, and use of iterative reconstruction technique. Findings: Areas of decreased attenuation are present in the periventricularwhite matter. This represents small vessel ischemic disease. There is nointraparenchymal hemorrhage, mass or midline shift. The ventricular system andcortical sulci are dilated consistent with minimal volume loss. There is noextracerebral collection. There is no fracture. A 6 mm the anastomosis ispresent arising from the inner table of the right frontal bone. Mucosalthickening is present in the right maxillary sinus. IMPRESSION: 1. Small vessel ischemic disease.2. Minimal volume loss. Cervical spine: There is no acute fracture. Disc bulges are present at the C4-5 and C5-6 levels.There is minimal narrowing of the spinal canal. Facet hypertrophy is present atthe C4-5 through C6-7 levels. This produces minimal narrowing of the neuralforamina. The C4-5 through C6-7 intervertebral discs are decreased in heightconsistent with disc degeneration. There is loss of the normal lordotic curve. Acalcification is present in the left thyroid lobe. IMPRESSION:1. There is no acute fracture.2. There is cervical spondylosis at the C4-5 through C6-7 levels. Electronically signed in PS360 by: Evaristo Estrada M.D. 04/22/2019 7:15 EST Name Value Range Interpretation Code Description Data Marva rce(s) Supporting Document(s) ID Date Data Source [id number] 04/22/2019 05:20:33 AM EST [facility] Name Value Range Interpretation Code Description Data Marva rce(s) Supporting Document(s) EKG [facility] LSADQb6aBtFTKeAgz4ZoNbPwANNmYK5tjex0Q9N3bHZsY1WxaHYwo5ryJ5QoZ4IsWABmEFIRFL9TrQCj jb2 [file] QP068D8ZBW60ZbY8D8At6yaoksA9jfAqwGlwe2WI3Kvz/rHzY+bH7Y+Valentín/xTpwZ91sbIchdpikaRboMQ zypaXcdTh+6GZC1aiA3K/D9UJkBW3Jhto2Dt5aUcqH 7gjfz7sTpreeszxCcglb7j42ogwErGNBvwiZ7nHeF7aOx0dfyYMr466s3TnJxYgRd+PTLuMzXlLuXkZZ 1wbndBv+XoqQFB2bhzyVg3876X0tdEF3ZwwjXpTV7b6weMd2O+b+ONwRqsZ9gnv925BkFayWt1eWeali l/PDaL+4Tjorozt4+V3aL/uav3XlvHw/IWx69vLg5H 5GE5onb62Q47p0F7nzd69vWBJ4ix2eK87yVTrLwyB9pKR2s7cpv/5mJYC79ttIL4bodw2GE0n/2GF5kr jrnmvy52fDuce1i94fP/Z0Iv3EbjPsFldbcJAZ1qgll17d5L5EB/BOZ6c9e0UuscET6IB9tVp6fV53Vl 864N/E1bQFnmatH+6duSYI75sVZ8SgW9zErsNOVF0n dy9bH+Yftj/jzS06ypbc6+mA1MKflgu7dX7s4CVM+5VTNiE0aT35hT57mL6ip1h1S796gu86vyu4SOc2 658+5bJe8yts2EOM5s438GFqj6sR5pWX+1USfEHehM6o9O5zQqoW5bojreNa7aX6g5xAzN/71CXlbtZz pr8Dsm4qX+7t2Ss2vB5yCBoAD4Uyz3ecZ3E+zD9sf9 ty3Zpu0Oe1x4nf/7h67vNgdPx+2Pow/7Z6EvYbgL7oIc2kVYjYig349OkB1gSaILhyTYurD/mVo8u5ji xZee3120xDN10fR87X2o13Np4erhpH0oS1Q5eZ+k7t0vL/Iy2X7t7S59undo62L3QT5j51Rosewz+0X/ [file] 2lU2ma6pmUx8+nVcNIflHnUqUu2JJ4vKzi4rqg87ViuX+THndblHNu/uVY4H71420qTTfyJhokwtD/IRONER MACHINE [file] O3cgPl6nEuKsDKVLK8Dyq9ClNSRuDTHHDx9+CxU1MNN6wRHkXwg7MNS2LFoqDIPGJy== ID Date Data Source [id number] 04/22/2019 09:25:09 PM EST [facility] Name Value Range Interpretation Code Description Data Marva rce(s) Supporting Document(s) DIRECT LDL @ 69 mg/dL (<130) [facility] [place] PER NCEP ATP III GUIDELINES: OPTIMAL < 100 NEAR OPTIMAL 100 - 129BORDERLINE HIGH 130 - 159 HIGH 160 - 189 VERY HIGH > 189 ID Date Data Source [id number] 04/22/2019 09:46:01 AM EST [facility] Name Value Range Interpretation Code Description Data Marva rce(s) Supporting Document(s) CHOLESTEROL @ 134 mg/dL (0-200) [facility] TRIGLYCERIDE @ 393 mg/dL (30-200) H [facility] HDL CHOLESTEROL @ 45 mg/dL (>40) [facility] PER NCEP ATP III GUIDELINES:RESULTS LOWE R THAN 40 MG/DL ARE SUGGESTIVEOF INCREASED RISK FOR CORONARY ARTERYDISEASE. RESULTS > OR = TO 60 MG/DL ARECONSIDERED A NEGATIVE RISK FACTOR. CHOL/HDL RATIO 3.0 RATIO [facility] INTERPRETATION OF CHOL-HDL RATIO CHD RISK FEMALE MALEVERY HIGH >8.3 >14.3HIGH 5.6- 8.3 6.7- 14.3AVERAGE 3.7- 5.6 4.0- 6.7BELOW AVERAGE 2.5- 3.7 2.7- 4.0PROTECTED <2.5 <2.7 LDL CHOL (CALC) (<130) [facility] INTERFERENCE FROM ELEVATED TRIGLYCERIDES (GREATER THAN 300 MG/DL). SEE RESULTFOR DIRECT LDL. ID Date Data Source [id number] 04/22/2019 06:16:52 AM EST [facility] Name Value Range Interpretation Code Description Data Marva rce(s) Supporting Document(s) LIPASE 344 U/L (65-230) H [facility] ID Date Data Source [id number] 04/22/2019 05:39:03 AM EST [facility] SPEC EXP DATE 04/25/2019PATI ENT ABO/Rh A POSITIVEANTIBODY SCREEN NEGATIVETESTING SITE PERFORMED AT [address] [place] [address] Name Value Range Interpretation Code Description Data Marva rce(s) Supporting Document(s) TYPE AND SCREEN [facility] ID Date Data Source [id number] 04/22/2019 05:18:56 AM EST [facility] Name Value Range Interpretation Code Description Data Marva rce(s) Supporting Document(s) NT PRO BNP 336 pg/mL (0-125) H [facility] ID Date Data Source [id number] 04/22/2019 05:18:56 AM EST [facility] Name Value Range Interpretation Code Description Data Marva rce(s) Supporting Document(s) TROPONIN I 19.70 ng/mL (<0.05) [facility] [place] Less than 0.05: Myocardial injury unlike lyGreater than or equal to 0.05: Highly suggestive of myocardial injuryCorrelation with rise and/or fall ofserial troponins, clinical symptomsand ECG changes is necessary.ALERTED CRITICAL RESULT TOJI [id number] [id number] ID Date Data Source [id number] 04/22/2019 05:18:56 AM EST [facility] Name Value Range Interpretation Code Description Data Marva rce(s) Supporting Document(s) SODIUM 136 mmol/L (136-145) [facility] POTASSIUM 3.7 mmol/L (3.6-5.2) [facility] CHLORIDE 100 mmol/L (100-108) [facility] CO2 28 mmol/L (22-31) [facility] ANION GAP 8 mmol/L (7-16) [facility] UREA NITROGEN 22 mg/dL (7-24) [facility] CREATININE 1.12 mg/dL (0.60-1.00) H [facility] BUN/CREAT RATIO 19.6 RATIO (10.0-20.0) [facility] GLUCOSE 298 mg/dL (70-99) H [facility] CALCIUM 9.8 mg/dL (8.4-10.2) [facility] TOTAL PROTEIN 7.4 g/dL (6.4-8.2) [facility] ALBUMIN 3.7 g/dL (3.2-4.5) [facility] GLOBULIN 3.7 g/dL (2.7-4.3) [facility] ALB/GLOB RATIO 1.0 RATIO [facility] ALKALINE PHOSPHATASE 65 U/L (45-117) [facility] BILIRUBIN,TOTAL 0.2 mg/dL (0.0-1.0) [facility] AST (SGOT) 86 U/L (11-39) H [facility] ALT (SGPT) 28 U/L (12-78) [facility] GFR 48 ml/min/1.73m2 (>59) L [facility] GFR ( AMER) 58 ml/min/1.73m2 (>59) L [facility] GFR INTERPRETATION [facility] --NORMAL KIDNEY FUNCTION OR MILD DISEASE - GFR >OR= 60CHRONIC KIDNEY DISEASE - GFR 15 - 59RENAL FAILURE - GFR <15 Est. GFR calculation based on the MDRDstudy equation, which assumes a steadystate for creatinine. Est. GFR should notbe used for medication dosing. ID Date Data Source [id number] 04/22/2019 05:12:30 AM EST [facility] Name Value Range Interpretation Code Description Data Marva rce(s) Supporting Document(s) HEMOGLOBIN A1C @ 8.3 % (4.0-6.0) H [facility] Performed using Siemens [place] immunoassa y.Care must be taken when interpreting ViS9hezunpcd in patients with a hemoglobin variantor decreased erythrocyte lifespan. Values 5.7 - 6.4% suggest prediabetes.Values >=6.5% are diagnostic for diabetes.REFERENCE: DIABETES CARE 2018: 41(S13-S27).PERFORMED AT [address] [place] [address] EST AVERAGE GLUCOSE 192 mg/dL Lab [facility] ID Date Data Source [id number] 04/22/2019 05:10:05 AM EST [facility] Name Value Range Interpretation Code Description Data Marva rce(s) Supporting Document(s) MAGNESIUM 1.8 mg/dL (1.7-2.4) [facility] ID Date Data Source [id number] 04/22/2019 04:58:59 AM EST [facility] Name Value Range Interpretation Code Description Data Marva rce(s) Supporting Document(s) APTT 57.6 s (22.0-34.3) H [facility] ID Date Data Source [id number] 04/22/2019 04:58:59 AM EST [facility] Name Value Range Interpretation Code Description Data Marva rce(s) Supporting Document(s) PT 10.6 s (9.2-11.9) [facility] INR 1.03 [facility] SUGGESTED THERAPEUTIC RANGES USING INR F ORSTABILIZED ANTICOAGULATED PATIENTS:STANDARD DOSE THERAPY INR 2.0-3.0 DVT, PE, PREVENT DVT OR EMBOLISMHIGH DOSE THERAPY INR 2.5-3.5 PREVENT EMBOLISM FROM MECHANICAL HEART VALVE ID Date Data Source [id number] 04/22/2019 04:48:09 AM EST [facility] Name Value Range Interpretation Code Description Data Marva rce(s) Supporting Document(s) WBC 8.5 10*3/uL (4.1-11.0) [facility] [place] RBC 4.00 10*6/uL (4.00-5.40) [facility] HGB 11.9 g/dL (12.0-16.0) L [facility] HCT 34.9 % (36.0-47.0) L [facility] MCV 87.2 fL (80.0-95.0) [facility] MCH 29.8 pg (27.0-32.0) [facility] MCHC 34.1 g/dL (32.0-36.0) [facility] RDW 13.5 % (10.5-14.5) [facility] PLT 241 10*3/uL (150-450) [facility] MPV 8.6 fL (7.1-10.7) [facility] NEUT % 56.1 % (35.0-75.0) [facility] LYMPH % 35.7 % (16.0-52.0) [facility] MONO % 7.0 % (0.0-8.0) [facility] EOS % 0.7 % (0.0-5.0) [facility] BASO % 0.5 % (0.0-4.0) [facility] NEUT # 4.8 10*3/uL (1.8-7.7) [facility] LYMPH # 3.0 10*3/uL (1.2-4.8) [facility] MONO # 0.6 10*3/uL (0.0-0.8) [facility] Eosinophils [#/volume] in Blood by Automated count 0.1 10*3/uL (0.0-0 .5) [facility] BASO # 0.0 10*3/uL (0.0-0.2) [facility] ID Date Data Source [id number] 04/22/2019 02:07:00 AM EST [facility] TSYSORDER [id number] #2 Name Value Range Interpretation Code Description Data Marva rce(s) Supporting Document(s) TROPONIN I 3.758 ng/mL 0.0-0.056 *H [facility] CALLED RESULTS TO NORMA IN ED AT 0207 ON 1 ID Date Data Source [id number] 04/22/2019 01:37:00 AM [facility] TSYSORDER [id number] Name Value Range Interpretation Code Description Data Marva rce(s) Supporting Document(s) GLUCOSE 419 mg/dL 74-106 *[facility] CALLED RESULTS TO NORMA IN ED AT 0136 ON 1 ID Date Data Source [id number] 04/22/2019 12:48:00 AM [facility] TSYSORDER [id number] Name Value Range Interpretation Code Description Data Marva rce(s) Supporting Document(s) URINE COLOR. [facility] URINE APPEARANCE CLEAR [facility] SPE[facility]IFIC [facility]RAV[facility],URINE 1.010 1.001-1.035 [facility] URINE LEUKOCYTE ESTERASE NEGATIVE NEGATIVE [facility] URINE NITRATE NEGATIVE NEGATIVE [facility] PH,URINE 7.0 5.0-9.0 [facility] URINE PROTEIN NEGATIVE mg/dL NEGATIVE [facility] GLUCOSE (UA) 1000 mg/dL NEGATIVE [facility] ital URINE KETONE NEGATIVE mg/dL [facility] UROBILINOGEN NORMAL(0.2-1) mg/dL 0-1 [facility] URINE BILIRUBIN NEGATIVE NEGATIVE [facility] URINE BLOOD NEGATIVE NEGATIVE [facility] ID Date Data Source [id number] 04/21/2019 11:26:00 PM [facility] TSYSORDER [id number] Name Value Range Interpretation Code Description Data Marva rce(s) Supporting Document(s) ERYTHROCYTE SEDIMENTATION RATE 40 mm/hr 0-30 H [facility] ID Date Data Source [id number] 04/21/2019 11:00:00 PM [facility] TSYSORDER [id number] Name Value Range Interpretation Code Description Data Marva rce(s) Supporting Document(s) TSH 3.30 uIU/mL 0.36-3.74 [facility] ID Date Data Source [id number] 04/21/2019 11:00:00 PM [facility] TSYSORDER [id number] Name Value Range Interpretation Code Description Data Marva rce(s) Supporting Document(s) TROPONIN I 0.881 ng/mL 0.0-0.056 *H [facility] CALLED RESULTS TO NORMA IN ED AT 2259 ON ID Date Data Source [id number] 04/21/2019 11:00:00 PM EST [facility] TSYSORDER [id number] Name Value Range Interpretation Code Description Data Marva rce(s) Supporting Document(s) MAGNESIUM 1.8 mg/dL 1.8-2.4 [facility] ID Date Data Source [id number] 04/21/2019 11:00:00 PM EST [facility] TSYSORDER [id number] Name Value Range Interpretation Code Description Data Marva rce(s) Supporting Document(s) CREATINE PHOSPHOKINASE 192 U/L 26-192 [facility] ID Date Data Source [id number] 04/21/2019 11:00:00 PM EST [facility] TSYSORDER [id number] Name Value Range Interpretation Code Description Data Marva rce(s) Supporting Document(s) LIPASE 300 U/L 73-393 [facility] ID Date Data Source [id number] 04/21/2019 11:00:00 PM [facility] TSYSORDER [id number] Name Value Range Interpretation Code Description Data Marva rce(s) Supporting Document(s) GLUCOSE 491 mg/dL 74-106 *H [facility] CALLED RESULTS TO NORMA IN ED AT 2259 ON BLOOD UREA NITROGEN 25 mg/dL 7-18 H [facility] ital CREATININE 1.3 mg/dL 0.6-1.0 H [facility] SODIUM 134 mmol/L 136-145 L [facility] POTASSIUM 4.2 mmol/L 3.5-5.1 [facility] CHLORIDE 95 mmol/L 98-107 L [facility] CO2 29 mmol/L 21-32 [facility] CALCIUM 10.1 mg/dL 8.5-10.1 [facility] ANION GAP 10.0 mmol/L 5-12 [facility] GLOMERULAR FILTRATION RATE 40 mL/min [facility] GFR IS CALCULATED IN mL/min/1.73m2 MALINDA L FUNCTION: >90MILDLY DECREASED: 60-89MILDY TO MODERATELY DECREASED: 45-59 MODERATELY TO SEVERELY DECREASED: 30-44SEVERELY DECREASED: 15-29RENAL FAILURE: <15 AST 33 U/L 15-37 [facility] ALT 26 U/L 12-78 [facility] ALKALINE PHOSPHATASE 72 U/L 46-116 [facility] pital TOTAL BILIRUBIN 0.2 mg/dL 0.2-1.0 [facility] TOTAL PROTEIN 7.9 g/dl 6.4-8.2 [facility] ALBUMIN 3.9 gm/dL 3.4-5.0 [facility] ID Date Data Source [id number] 04/21/2019 10:41:00 PM [facility] TSYSORDER [id number] Name Value Range Interpretation Code Description Data Marva rce(s) Supporting Document(s) PARTIAL THROMBOPLASTIN TIME 21.4 SECONDS 21.4-30.2 [facility] ID Date Data Source [id number] 04/21/2019 10:41:00 PM [facility] TSYSORDER [id number] Name Value Range Interpretation Code Description Data Marva rce(s) Supporting Document(s) PROTHROMBIN TIME (PATIENT) 10.3 SECONDS 9.2-11.6 [facility] INR 0.99 0.87-1.06 [facility] ID Date Data Source [id number] 04/21/2019 10:23:00 PM [facility] TSYSORDER [id number] Name Value Range Interpretation Code Description Data Marva rce(s) Supporting Document(s) WHITE BLOOD COUNT 7.7 K/mm3 4.0-10.0 [facility] RED BLOOD COUNT 4.32 M/mm3 4.00-5.50 [facility] HEMOGLOBIN 12.4 gm/dL 12.0-16.0 [facility] HEMATOCRIT 38.0 % 36.0-48.8 [facility] MEAN CELL VOLUME 88.0 fl 80-96 [facility] MEAN CORPUSCULAR HEMOGLOBIN 28.7 pg 27.0-31.0 [facility] MEAN CORPUSCULAR HGB CONC 32.6 g/dl 32.0-36.0 [facility] RED CELL DISTRIBUTION WIDTH 12.9 % 10.0-14.5 [facility] PLATELET COUNT 277 K/mm3 172-450 [facility] MEAN PLATELET VOLUME 10.5 fl 9.0-13.0 [facility] pital GRAN % 73.1 % 50-80.0 [facility] IG% 0.3 % 0.0-0.2 H [facility] LYMPH % 20.0 % 25.0-50.0 L [facility] MONO % 5.7 % 2.0-10.0 [facility] EOS % 0.6 % 0-5.0 [facility] BASO % 0.3 % 0.0-2.0 [facility] GRAN # 5.6 K/mm3 2.0-8.00 [facility] [facility] IG# 0.0 K/mm3 0.0-0.2 [facility] LYMPH # 1.5 K/mm3 1.0-5.0 [facility] MONO # 0.4 K/mm3 0.10-1.20 [facility] EOS # 0.1 K/mm3 0.0-0.5 [facility] BASO # 0.0 K/mm3 0.0-0.2 [facility] ID Date Data Source [id number] 03/18/2019 09:28:00 AM EST [facility] DATE OF EXAMINATION: 03/17/2019 14:52 ES T MAMMO SCREEN BILAT WITH CAD HISTORY: Screening Based on the personal and family history information your patient supplied atthe time of imaging, her lifetime risk of breast cancer estimated date by theTyrer-Cuzick model is 3.5%. If anything changes in the personal and/or familyhistory this percentage could increase or decrease. Currently, NCCN and ACSrecommended adjunctive breast MRI screening starting at age 30 for women with a> 20-25% lifetime risk of developing breast cancer. Comparison is made to prior study dated 01/17/2018. 2-D bilateral digital mammogram in the CC and MLO planes were performed withsupplemental 3-D tomosynthesis of both breasts. The images were analyzed through the latest version of the [email or web address] ddiagnosis system. The patient states that her last clinical breast examination was February. Craniocaudal and oblique lateral views of the breasts were obtained. Thebreasts are composed of normal glandular tissue. There is no dominant mass,suspicious clustered calcification, or architectural distortion. IMPRESSION: No mammographic evidence of malignancy. BiRAD 1 - Negative, Routine Yearly Mammographic Follow-up Recommended. Furthermore, in patients with dense glandular tissue, supplemental imagingmodalities should be considered. 10-15% of cancers are not identified by mammography. This usually occurs whenthe mass is of the same radiographic density as the surrounding breast tissue,emphasizing the importance of breast self examination (BSE) and physicalexamination. A normal mammogram should not delay biopsy if a suspicious mass orabnormal findings are present upon physical examination. Electronically signed in [id number] by: Jennyfer Hanna M.D. 03/18/2019 9:23 EST Name Value Range Interpretation Code Description Data Marva rce(s) Supporting Document(s) ID Date Data Source [id number] 03/17/2019 04:28:00 PM EST [facility] Name Value Range Interpretation Code Description Data Marva rce(s) Supporting Document(s) TSH 2.80 uIU/mL 0.36-3.74 [facility] ID Date Data Source [id number] 03/17/2019 04:16:00 PM EST [facility] Name Value Range Interpretation Code Description Data Marva rce(s) Supporting Document(s) CHOLESTEROL 103 mg/dL 0-200 [facility] TRIGLYCERIDES 155 mg/dL 0-150 [facility] LDL CHOLESTEROL 36 mg/dL 0-100 [facility] HDL CHOLESTEROL 36 mg/dL 40-60 L [facility] CHOL/HDL RATIO 2.9 0.0-5.0 [facility] ID Date Data Source [id number] 03/17/2019 04:16:00 PM EST [facility] Name Value Range Interpretation Code Description Data Marva rce(s) Supporting Document(s) URINE MICROALBUMIN 45.7 mg/L 1.3-20.0 [facility] CREATININE 47.3 mg/dL [facility] MICROALBUMIN/CREATININE RATIO 96 ug/mg [facility] ID Date Data Source [id number] 03/17/2019 04:16:00 PM EST [facility] Name Value Range Interpretation Code Description Data Marva rce(s) Supporting Document(s) GLUCOSE 189 mg/dL 74-106 H [facility] BLOOD UREA NITROGEN 20 mg/dL 7-18 [facility] ital CREATININE 1.2 mg/dL 0.6-1.0 H [facility] SODIUM 137 mmol/L 136-145 [facility] POTASSIUM 3.8 mmol/L 3.5-5.1 [facility] CHLORIDE 96 mmol/L 98-107 L [facility] CO2 30 mmol/L 21-32 [facility] CALCIUM 10.0 mg/dL 8.5-10.1 [facility] ANION GAP 11.0 mmol/L 5-12 [facility] GLOMERULAR FILTRATION RATE 44 mL/min [facility] GFR IS CALCULATED IN mL/min/1.73m2 MALINDA L FUNCTION: >90MILDLY DECREASED: 60-89MILDY TO MODERATELY DECREASED: 45-59 MODERATELY TO SEVERELY DECREASED: 30-44SEVERELY DECREASED: 15-29RENAL FAILURE: <15 AST 37 U/L 15-37 [facility] ALT 33 U/L 12-78 [facility] ALKALINE PHOSPHATASE 68 U/L 46-116 [facility] TOTAL BILIRUBIN 0.4 mg/dL 0.2-1.0 [facility] TOTAL PROTEIN 7.9 g/dl 6.4-8.2 [facility] ALBUMIN 4.1 gm/dL 3.4-5.0 [facility] ID Date Data Source [id number] 03/17/2019 03:36:00 PM EST [facility] Name Value Range Interpretation Code Description Data Marva e(s) Supporting Document(s) WHITE BLOOD COUNT 7.8 K/mm3 4.0-10.0 [facility] RED BLOOD COUNT 4.14 M/mm3 4.00-5.50 [facility] HEMOGLOBIN 12.0 gm/dL 12.0-16.0 [facility] HEMATOCRIT 36.4 % 36.0-48.8 [facility] MEAN CELL VOLUME 87.9 fl 80-96 [facility] MEAN CORPUSCULAR HEMOGLOBIN 29.0 pg 27.0-31.0 [facility] MEAN CORPUSCULAR HGB CONC 33.0 g/dl 32.0-36.0 [facility] RED CELL DISTRIBUTION WIDTH 12.7 % 10.0-14.5 [facility] PLATELET COUNT 305 K/mm3 172-450 [facility] MEAN PLATELET VOLUME 10.2 fl 9.0-13.0 [facility] pital GRAN % 65.6 % 50-80.0 [facility] IG% 0.3 % 0.0-0.2 [facility] LYMPH % 27.4 % 25.0-50.0 [facility] MONO % 5.7 % 2.0-10.0 [facility] EOS % 0.6 % 0-5.0 [facility] BASO % 0.4 % 0.0-2.0 [facility] GRAN # 5.1 K/mm3 2.0-8.00 [facility] IG# 0.0 K/mm3 0.0-0.2 [facility] LYMPH # 2.1 K/mm3 1.0-5.0 [facility] MONO # 0.4 K/mm3 0.10-1.20 [facility] EOS # 0.1 K/mm3 0.0-0.5 [facility] BASO # 0.0 K/mm3 0.0-0.2 [facility] Procedure Social History Code Duration Value Status Description Data Source(s ) Smoking 05/11/2020 12:00:00 AM EST Patient is a former smoker completed Patient is a former smoker ZACHARY ([facility]) Smoking 04/12/2020 12:00:00 AM EST Former Smoker completed Former Smoker eCW1 ([facility]) Smoking 04/12/2020 12:00:00 AM EST Former Smoker completed Former Smoker eCW1 ([facility]) Smoking 04/12/2020 12:00:00 AM EST Former Smoker completed Former Smoker eCW1 ([facility]) Smoking 04/12/2020 12:00:00 AM EST Former Smoker completed Former Smoker eCW1 ([facility]) Smoking 04/12/2020 12:00:00 AM EST Former Smoker completed Former Smoker eCW1 ([facility]) Smoking 03/16/2020 12:00:00 AM EST Former Smoker completed Former Smoker eCW1 ([facility]) Smoking 03/16/2020 12:00:00 AM EST Former Smoker completed Former Smoker eCW1 ([facility]) Smoking 03/16/2020 12:00:00 AM EST Former Smoker completed Former Smoker eCW1 ([facility]) Smoking 02/25/2020 12:00:00 AM EST Former Smoker completed Former Smoker eCW1 ([facility]) Smoking 02/25/2020 12:00:00 AM EST Former Smoker completed Former Smoker eCW1 ([facility]) Alcohol intake 12/03/2019 12:00:00 AM EDT Ex-drinker (finding) comp leted Ex- drinker (finding) [facility] Tobacco use and exposure 12/03/2019 12:00:00 AM EDT Never used co mpleted Never used [facility] Smoking 12/03/2019 12:00:00 AM EDT Former smoker completed Former smoker [facility] Alcohol intake 11/25/2019 12:00:00 AM EDT Not Currently completed [facility] Cigarette pack-years 11/25/2019 12:00:00 AM EDT UNK completed [facility] Cigarettes smoked current (pack per day) - Reported 11/25/19 12:00:00 AM EDT UNK completed [facility] Smoking 11/25/2019 12:00:00 AM EDT Former smoker completed Former smoker [facility] Smoking 11/14/2019 12:00:00 AM EDT Unknown if ever smoked comp leted Unknown if ever smoked [facility] Smoking 10/15/2019 12:00:00 AM EDT Former Smoker completed Former Smoker eCW1 ([facility]) Smoking 10/15/2019 12:00:00 AM EDT Former Smoker completed Former Smoker eCW1 ([facility]) Smoking 10/15/2019 12:00:00 AM EDT Former Smoker completed Former Smoker eCW1 ([facility]) Smoking 10/15/2019 12:00:00 AM EDT Former Smoker completed Former Smoker eCW1 ([facility]) Smoking 10/15/2019 12:00:00 AM EDT Former Smoker completed Former Smoker eCW1 ([facility]) Smoking 10/15/2019 12:00:00 AM EDT Former Smoker completed Former Smoker eCW1 ([facility]) Alcohol intake 10/14/2019 12:00:00 AM EDT Not Currently completed [facility] Cigarette pack-years 10/14/2019 12:00:00 AM EDT UNK completed [facility] Cigarettes smoked current (pack per day) - Reported 10/14/19 12:00:00 AM EDT UNK completed [facility] Smoking 10/14/2019 12:00:00 AM EDT Former smoker completed Former smoker [facility] Alcohol intake 10/06/2019 12:00:00 AM EDT Not Currently completed [facility] Cigarette pack-years 10/06/2019 12:00:00 AM EDT UNK completed [facility] Cigarettes smoked current (pack per day) - Reported 10/06/19 12:00:00 AM EDT UNK completed [facility] Smoking 10/06/2019 12:00:00 AM EDT Former smoker completed Former smoker [facility] Smoking 09/11/2019 12:00:00 AM EDT Former Smoker completed Former Smoker eCW1 ([facility]) Smoking 09/11/2019 12:00:00 AM EDT Former Smoker completed Former Smoker eCW1 ([facility]) Smoking 09/11/2019 12:00:00 AM EDT Former Smoker completed Former Smoker eCW1 ([facility]) Smoking 09/11/2019 12:00:00 AM EDT Former Smoker completed Former Smoker eCW1 ([facility]) Smoking 05/15/2019 12:00:00 AM EST Patient is a former smoker completed Patient is a former smoker ZACHARY ([facility], ) Alcohol intake 04/25/2019 12:00:00 AM EST Not Currently completed [facility] Cigarette pack-years 04/25/2019 12:00:00 AM EST UNK completed [facility] Cigarettes smoked current (pack per day) - Reported 04/25/19 12:00:00 AM EST UNK completed [facility] Smoking 04/25/2019 12:00:00 AM EST Former smoker completed Former smoker [facility] Vital Signs ID Date Data Source UNK Name Value Range Interpretation Code Description Data Source(s) Diastolic blood pressure 74 mm[Hg] 74 mm[Hg] ZACHARY ([facility]) sitting, regular cuff Systolic blood pressure 112 mm[Hg] 112 mm[Hg] M PEEWEE ([facility]) sitting, regular cuff Respiratory rate 16 /min 16 /min MEDENT ( [facility]) Heart rate 84 /min 84 /min MEDENT ([facility]) Regular Body mass index (BMI) [Ratio] 23.0 kg/m2 23.0 k g/m2 MEDENT ([facility]) Body height 64 [in_i] 64 [in_i] MEDENT ([facility]) 5'4" Body weight 134.00 [lb_av] 134.00 [lb_av] MEDEN T ([facility]) Diastolic blood pressure 58 mm[Hg] 58 mm[Hg] eCW1 ([facility]) Systolic blood pressure 104 mm[Hg] 104 mm[Hg] e CW1 ([facility]) Body temperature 98.1 [degF] 98.1 [degF] eCW1 ( [facility]) Respiratory rate 166 /min 166 /min eCW1 ([facility]) Heart rate 75 /min 75 /min eCW1 ([facility]) Body mass index (BMI) [Ratio] 25.39 kg/m2 25.39 kg/m2 eCW1 ([facility]) Body height 60 [in_i] 60 [in_i] eCW1 ([facility]) Body weight 130 [lb_av] 130 [lb_av] eCW1 ([facility]) Diastolic blood pressure 54 mm[Hg] 54 mm[Hg] eCW1 ([facility]) Systolic blood pressure 102 mm[Hg] 102 mm[Hg] e CW1 ([facility]) Body temperature 97.0 [degF] 97.0 [degF] eCW1 ( [facility]) Respiratory rate 18 /min 18 /min eCW1 ([facility]) Heart rate 83 /min 83 /min eCW1 ([facility]) Body mass index (BMI) [Ratio] 26.95 kg/m2 26.95 kg/m2 W1 ([facility]) Body height 60 [in_i] 60 [in_i] eCW1 ([facility]) Body weight 138 [lb_av] 138 [lb_av] eCW1 ([facility]) Diastolic blood pressure 60 mm[Hg] 60 mm[Hg] MEDENT ([facility]) sitting Systolic blood pressure 102 mm[Hg] 102 mm[Hg] M EDENT ([facility]) sitting Diastolic blood pressure 62 mm[Hg] 62 mm[Hg] MEDENT ([facility]) sitting, regular cuff Systolic blood pressure 102 mm[Hg] 102 mm[Hg] M EDENT ([facility]) sitting, regular cuff Respiratory rate 16 /min 16 /min MEDENT ( [facility]) Heart rate 76 /min 76 /min [facility] ([facility]) Regular Body mass index (BMI) [Ratio] 22.1 kg/m2 22.1 k g/m2 MEDENT ([facility]) Body height 64 [in_i] 64 [in_i] MEDENT ([facility]) 5'4" Body weight 129.00 [lb_av] 129.00 [lb_av] MEDEN T ([facility]) Diastolic blood pressure 50 mm[Hg] 50 mm[Hg] eCW1 ([facility]) Systolic blood pressure 94 mm[Hg] 94 mm[Hg] e CW1 ([facility]) Body temperature 97.6 [degF] 97.6 [degF] eCW1 ( [facility]) Respiratory rate 18 /min 18 /min eCW1 ([facility]) Heart rate 88 /min 88 /min eCW1 ([facility]) Body mass index (BMI) [Ratio] 25.19 kg/m2 25.19 kg/m2 eCW1 ([facility]) Body height 60 [in_i] 60 [in_i] eCW1 ([facility]) Body weight 129 [lb_av] 129 [lb_av] eCW1 ([facility]) Body weight 58.514 kg 58.514 kg MEDENT ([facility], ) Body mass index (BMI) [Ratio] 25.2 kg/m2 25.2 k g/m2 MEDENT ([facility], ) Body weight 129.00 [lb_av] 129.00 [lb_av] MEDEN T ([facility]) Body height 60 [in_i] 60 [in_i] MEDENT ([facility], ) 5'0" Diastolic blood pressure 64 mm[Hg] 64 mm[Hg] MEDENT ([facility]) Systolic blood pressure 102 mm[Hg] 102 mm[Hg] M EDENT ([facility], ) Diastolic blood pressure--standing 64 mm[Hg] 6 4 mm[Hg] MEDENT ([facility]) sitting Systolic blood pressure--standing 120 mm[Hg] 12 0 mm[Hg] MEDENT ([facility]) sitting Diastolic blood pressure--sitting 64 mm[Hg] 64 mm[Hg] MEDENT ([facility]) Ra, regular cuff Systolic blood pressure--sitting 122 mm[Hg] 122 mm[Hg] MEDENT ([facility]) Ra, regular cuff Respiratory rate 16 /min 16 /min MEDENT ( [facility]) Heart rate 84 /min 84 /min MEDENT ([facility]) Regular Body mass index (BMI) [Ratio] 21.8 kg/m2 21.8 k g/m2 MEDENT ([facility]) Body height 64 [in_i] 64 [in_i] MEDENT ([facility]) 5'4" Body weight 127.00 [lb_av] 127.00 [lb_av] MEDEN T ([facility]) Oxygen saturation in Arterial blood by Pulse oximetry 97 % 97 % [facility] Respiratory rate 16 /min 16 /min [facility] Body temperature 36.78 Oneal 36.78 Oneal [facility] Heart rate 79 /min 79 /min [facility] Diastolic blood pressure 81 mm[Hg] 81 mm[Hg] [facility] Systolic blood pressure 129 mm[Hg] 129 mm[Hg] [facility] Body mass index (BMI) [Ratio] 23.41 kg/m2 23.41 kg/m2 [facility] Body weight 58.06 kg 58.06 kg [facility] Body height 157.5 cm 157.5 cm [facility] Diastolic blood pressure 64 mm[Hg] 64 mm[Hg] MEDENT ([facility]) sitting Systolic blood pressure 122 mm[Hg] 122 mm[Hg] M EDENT ([facility]) sitting Diastolic blood pressure 64 mm[Hg] 64 mm[Hg] MEDENT ([facility]) sitting, regular cuff Systolic blood pressure 116 mm[Hg] 116 mm[Hg] M EDENT ([facility]) sitting, regular cuff Respiratory rate 16 /min 16 /min MEDENT ( [facility]) Heart rate 88 /min 88 /min MEDENT ([facility]) Regular Body mass index (BMI) [Ratio] 22.0 kg/m2 22.0 k g/m2 MEDENT ([facility]) Body height 64 [in_i] 64 [in_i] MEDENT ([facility]) 5'4" Body weight 128.00 [lb_av] 128.00 [lb_av] MEDEN T ([facility]) Heart rate 75 /min 75 /min [facility] Diastolic blood pressure 51 mm[Hg] 51 mm[Hg] [facility] Systolic blood pressure 100 mm[Hg] 100 mm[Hg] [facility] Oxygen saturation in Arterial blood by Pulse oximetry 98 % 98 % [facility] Respiratory rate 18 /min 18 /min [facility] Body temperature 37 Oneal 37 Oneal [facility] Body mass index (BMI) [Ratio] 24.69 kg/m2 24.69 kg/m2 [facility] Body weight 61.236 kg 61.236 kg [facility] Body height 157.5 cm 157.5 cm [facility] Oxygen saturation in Arterial blood by Pulse oximetry 99 % 99 % [facility] Respiratory rate 14 /min 14 /min [facility] Body temperature 36.89 Oneal 36.89 Oneal [facility] Heart rate 79 /min 79 /min [facility] Diastolic blood pressure 63 mm[Hg] 63 mm[Hg] [facility] Systolic blood pressure 138 mm[Hg] 138 mm[Hg] [facility] Body mass index (BMI) [Ratio] 25.58 kg/m2 25.58 kg/m2 [facility] Body weight 59.421 kg 59.421 kg [facility] Body height 152.4 cm 152.4 cm [facility] Diastolic blood pressure 76 mm[Hg] 76 mm[Hg] eCW1 ([facility]) Systolic blood pressure 138 mm[Hg] 138 mm[Hg] e CW1 ([facility]) Body temperature 98.1 [degF] 98.1 [degF] eCW1 ( [facility]) Respiratory rate 16 /min 16 /min eCW1 ([facility]) Heart rate 85 /min 85 /min eCW1 ([facility]) Body mass index (BMI) [Ratio] 25.00 kg/m2 25.00 kg/m2 eCW1 ([facility]) Body height 60 [in_us] 60 [in_us] eCW1 ([facility]) Body weight Measured [lb_av] eCW1 ([facility]) Diastolic blood pressure mm[Hg] eCW1 ([facility]) Systolic blood pressure 146 mm[Hg] 146 mm[Hg] e CW1 ([facility]) Body temperature 98.3 [degF] 98.3 [degF] eCW1 ( [facility]) Respiratory rate 18 /min 18 /min eCW1 ([facility]) Heart rate 86 /min 86 /min eCW1 ([facility]) Body mass index (BMI) [Ratio] 25.58 kg/m2 25.58 kg/m2 W1 ([facility]) Body height 60 [in_us] 60 [in_us] eCW1 ([facility]) Body weight Measured 131 [lb_av] 131 [lb_av] eC W1 ([facility]) Diastolic blood pressure mm[Hg] eCW1 ([facility]) Systolic blood pressure 98 mm[Hg] 98 mm[Hg] e CW1 ([facility]) Body temperature 98.3 [degF] 98.3 [degF] eCW1 ( [facility]) Respiratory rate 18 /min 18 /min eCW1 ([facility]) Heart rate 90 /min 90 /min eCW1 ([facility]) Body mass index (BMI) [Ratio] 25.39 kg/m2 25.39 kg/m2 eCW1 ([facility]) Body height 60 [in_us] 60 [in_us] eCW1 ([facility]) Body weight Measured 130 [lb_av] 130 [lb_av] eC W1 ([facility]) Diastolic blood pressure 62 mm[Hg] 62 mm[Hg] MEDENT ([facility]) sitting, regular cuff Systolic blood pressure 134 mm[Hg] 134 mm[Hg] M EDENT ([facility]) sitting, regular cuff Respiratory rate 16 /min 16 /min MEDENT ( [facility]) Heart rate 72 /min 72 /min MEDENT ([facility]) Regular Body mass index (BMI) [Ratio] 23.2 kg/m2 23.2 k g/m2 MEDENT ([facility]) Body height 64 [in_i] 64 [in_i] MEDENT ([facility]) 5'4" Body weight 135.00 [lb_av] 135.00 [lb_av] MEDEN T ([facility]) Diastolic blood pressure 84 mm[Hg] 84 mm[Hg] eCW1 ([facility]) Systolic blood pressure 152 mm[Hg] 152 mm[Hg] e CW1 ([facility]) Body temperature 98.1 [degF] 98.1 [degF] eCW1 ( [facility]) Respiratory rate 16 /min 16 /min eCW1 ([facility]) Heart rate 92 /min 92 /min eCW1 ([facility]) Body mass index (BMI) [Ratio] 25.74 kg/m2 25.74 kg/m2 eCW1 ([facility]) Body height 60 [in_us] 60 [in_us] eCW1 ([facility]) Body weight Measured 131.8 [lb_av] 131.8 [lb_av ] eCW1 ([facility]) Body mass index (BMI) [Ratio] 26.1 kg/m2 26.1 k g/m2 MEDENT ([facility] Heart rate 81 /min 81 /min MEDENT ([facility] Diastolic blood pressure 66 mm[Hg] 66 mm[Hg] MEDENT ([facility] Systolic blood pressure 150 mm[Hg] 150 mm[Hg] M EDENT ([facility] Body weight 138.00 [lb_av] 138.00 [lb_av] MEDEN T ([facility] Body height 61 [in_i] 61 [in_i] MEDENT ([facility] 5'1" Deprecated Oxygen saturation in Capillary blood by Oximetry 98 % 98 % eCW1 ([facility]) Respiratory rate 18 /min 18 /min eCW1 ([facility]) Heart rate 88 /min 88 /min eCW1 ([facility]) Body temperature 98.7 [degF] 98.7 [degF] eCW1 ( [facility]) Body mass index (BMI) [Ratio] 24.69 kg/m2 24.69 kg/m2 eCW1 ([facility]) Body height 62 [in_us] 62 [in_us] eCW1 ([facility]) Body temperature 97.7 [degF] 97.7 [degF] eCW1 ( [facility]) Respiratory rate 16 /min 16 /min eCW1 ([facility]) Heart rate 89 /min 89 /min eCW1 ([facility]) Body mass index (BMI) [Ratio] 26.36 kg/m2 26.36 kg/m2 eCW1 ([facility]) Body height 60 [in_us] 60 [in_us] eCW1 ([facility]) Body weight Measured [lb_av] eCW1 ([facility]) Diastolic blood pressure 72 mm[Hg] 72 mm[Hg] eCW1 ([facility]) Systolic blood pressure 135 mm[Hg] 135 mm[Hg] e CW1 ([facility]) Body weight 62.200 kg 62.200 kg MEDENT ([facility], ) Body mass index (BMI) [Ratio] 26.8 kg/m2 26.8 k g/m2 MEDENT ([facility]) Body weight 137.12 [lb_av] 137.12 [lb_av] MEDEN T ([facility], ) Body height 60 [in_i] 60 [in_i] MEDENT ([facility]) 5'0" Diastolic blood pressure 50 mm[Hg] 50 mm[Hg] MEDENT ([facility]) Systolic blood pressure 80 mm[Hg] 80 mm[Hg] M EDENT ([facility], ) Body height 64 [in_i] 64 [in_i] MEDENT ([facility]) 5'4" Body weight 134.00 [lb_av] 134.00 [lb_av] MEDEN T ([facility]) Diastolic blood pressure--sitting 84 mm[Hg] 84 mm[Hg] MEDENT ([facility] [facility] CBP adult cuff, LA Systolic blood pressure--sitting 178 mm[Hg] 178 mm[Hg] MEDENT ([facility]) CBP adult cuff, LA Heart rate 80 /min 80 /min [facility] ([facility]) Body mass index (BMI) [Ratio] 23.0 kg/m2 23.0 k g/m2 [facility] ([facility]) Diastolic blood pressure 84 mm[Hg] 84 mm[Hg] eCW1 ([facility]) Systolic blood pressure 138 mm[Hg] 138 mm[Hg] e CW1 ([facility]) Body temperature 98.3 [degF] 98.3 [degF] eCW1 ( [facility]) Respiratory rate 18 /min 18 /min eCW1 ([facility]) Heart rate 86 /min 86 /min eCW1 ([facility]) Body mass index (BMI) [Ratio] 27.14 kg/m2 27.14 kg/m2 eCW1 ([facility]) Body height 60 [in_us] 60 [in_us] eCW1 ([facility]) Body weight Measured 139 [lb_av] 139 [lb_av] eC W1 ([facility]) Oxygen saturation in Arterial blood by Pulse oximetry 93 % 93 % [facility] Respiratory rate 18 /min 18 /min [facility] Body temperature 37.17 Oneal 37.17 Oneal [facility] Heart rate 75 /min 75 /min [facility] Diastolic blood pressure 56 mm[Hg] 56 mm[Hg] [facility] Systolic blood pressure 116 mm[Hg] 116 mm[Hg] [facility] Body mass index (BMI) [Ratio] 27.34 kg/m2 27.34 kg/m2 [facility] Body weight 63.504 kg 63.504 kg [facility] Body height 152.4 cm 152.4 cm [facility] ID Date Data Source [id number] 01/08/2020 12:26:50 PM [facility] Name Value Range Interpretation Code Description Data Source(s) WEIGHT RECORDED 128 lb 128 lb [facility] Body height Measured 62 in 62 in [facility] ID Date Data Source [id number] 11/14/2019 04:53:04 PM [facility] Name Value Range Interpretation Code Description Data Source(s) WEIGHT RECORDED 128.97 lb 128.97 lb [facility] Body height Measured 58.66 in 58.66 in [facility] ID Date Data Source [id number] 06/18/2019 10:57:00 PM EST [facility] Name Value Range Interpretation Code Description Data Source(s) WEIGHT 70.042659 kilos 70.707547 [facility] HEIGHT 157.48 centimeters 157.48 centimeter [facility] WEIGHT 70.299541 kilos 70.062235 [facility] HEIGHT 157.48 centimeters 157.48 centimeter [facility] Patient Treatment Plan of Care Planned Activity Planned Date Details Description Data Source (s) Acetaminophen 325 MG / Hydrocodone Bitartrate 10 MG Or al Tablet 03/16/2020 12:00:00 AM EST eCW1 ([facility]) Acetaminophen 325 MG / Hydrocodone Bitartrate 10 MG Or al Tablet 03/16/2020 12:00:00 AM EST eCW1 ([facility]) Omeprazole 20 MG Delayed Release Oral Capsule 01/22/2020 12:00:00 A M EDT eCW1 ([facility]) Omeprazole 20 MG Delayed Release Oral Capsule 01/22/2020 12:00:00 A M EDT eCW1 ([facility]) Omeprazole 20 MG Delayed Release Oral Capsule 01/22/2020 12:00:00 A M EDT eCW1 ([facility]) Magnesium Oxide 400 MG Oral Tablet 11/26/2019 12:00:00 AM [facility] pantoprazole 40 MG Delayed Release Oral Tablet 11/26/2019 12:00:00 AM [facility] insulin detemir 100 UNT/ML Injectable Solution 11/15/2019 12:00:00 AM [facility] 4 ML Labetalol hydrochloride 5 MG/ML Cartridge 11/14/2019 07:50:27 AM [facility] Hydralazine Hydrochloride 20 MG/ML Injectable Solution 11/14/2019 07:46:49 AM [facility] dextrose 50 % IV solution 25 mL 11/14/2019 04:46:41 AM [facility] Glucagon 1 MG Injection 11/14/2019 04:46:41 AM [facility] Glucose 0.417 MG/MG Oral Gel 11/14/2019 04:46:41 AM [facility] Metformin hydrochloride 1000 MG Oral Tablet 10/15/2019 12:00:00 AM EDT [facility] Metformin hydrochloride 1000 MG Oral Tablet 10/15/2019 12:00:00 AM EDT [facility] 24 HR Isosorbide Mononitrate 30 MG Extended Release Or al Tablet 10/10/2019 12:00:00 AM EDT [facility] 12 HR ranolazine 500 MG Extended Release Oral Tablet 020 12:00:00 AM EDT [facility] trandolapril 1 MG Oral Tablet 09/11/2019 12:00:00 AM EDT eCW1 ([facility]) trandolapril 1 MG Oral Tablet 09/11/2019 12:00:00 AM EDT eCW1 ([facility]) 24 HR ferrous sulfate 142 MG Extended Release Oral Tab let [Slow-Fe] 07/07/2019 12:00:00 AM EDT eCW1 ([facility]) 24 HR ferrous sulfate 142 MG Extended Release Oral Tab let [Slow-Fe] 07/07/2019 12:00:00 AM EDT eCW1 ([facility]) 24 HR ferrous sulfate 142 MG Extended Release Oral Tab let [Slow-Fe] 07/07/2019 12:00:00 AM EDT eCW1 ([facility]) pantoprazole 40 MG Delayed Release Oral Tablet 06/01/2019 12:00:00 AM EST eCW1 ([facility]) Cephalexin 500 MG Oral Capsule 05/31/2019 12:00:00 AM EST eCW1 ([facility]) clopidogrel 75 MG Oral Tablet 04/26/2019 12:00:00 AM EST [facility] clopidogrel 75 MG Oral Tablet 04/26/2019 12:00:00 AM EST [facility] Nitroglycerin 0.4 MG Sublingual Tablet 04/25/2019 12:00:00 AM EST [facility] Acetaminophen 325 MG Oral Tablet 04/25/2019 12:00:00 AM EST [facility] atorvastatin 80 MG Oral Tablet 04/25/2019 12:00:00 AM EST [facility] carvedilol 25 MG Oral Tablet 04/25/2019 12:00:00 AM EST [facility] Metformin hydrochloride 1000 MG Oral Tablet [facility] Spironolactone 25 MG Oral Tablet [facility] Metformin hydrochloride 1000 MG Oral Tablet [facility] trandolapril 1 MG Oral Tablet [facility] Weston-3 Fatty Acids (FISH OIL PO) [facility] Naproxen sodium 220 MG Oral Tablet [facility] Chlorthalidone 25 MG Oral Tablet [facility] glimepiride 4 MG Oral Tablet [facility] Magnesium Oxide (MAG-OX) 400 MG tablet [facility] Magnesium Chloride 535 MG Delayed Release Oral Tablet [facility] pantoprazole 40 MG Delayed Release Oral Tablet [facility] clopidogrel 75 MG Oral Tablet [facility] Menthol, Topical Analgesic, (BIOFREEZE EX) [facility] insulin detemir 100 UNT/ML Injectable Solution [facility] carvedilol 12.5 MG Oral Tablet [facility] Simvastatin 40 MG Oral Tablet [facility] Ranitidine 150 MG Oral Capsule [facility] tedizolid phosphate 200 MG Oral Tablet [facility]
== END 2020-05-14 17:17 | disposition short-term general hospital (02) ==
LOC: EDBD 10:53 → M ED 10:53
DX: I20.0 Unstable angina (principal); E11.9 Type 2 diabetes mellitus without complications; I10 Essential (primary) hypertension; E78.5 Hyperlipidemia, unspecified; K21.9 Gastro-esophageal reflux disease without esophagitis; Z79.82 Long term (current) use of aspirin; Z79.84 Long term (current) use of oral hypoglycemic drugs; Z79.899 Other long term (current) drug therapy; Z87.891 Personal history of nicotine dependence; Z95.818 Presence of other cardiac implants and grafts
CPT/HCPCS: 71045; 80048; 80076; 82550; 82553; 83690; 83880; 84439; 84443; 84484; 85025; 85610; 85652; 85730; 86140; 87040; 87486; 87581; 87633; 87798; 93005; 93041; 94760; 96365; 96375; 99285; J1644; J1940

== ENCOUNTER 2020-05-28 12:27 | Inpatient (IN) | payer MEDICARE ==
[~2020-05-28] VITALS: Ht 157.5 cm; Wt 60.2 kg
[~2020-05-28 12:27] MED LIST changes: -CARA1TAB6 PO; -FURO20TA2 PO; -GLIP5TAB8 PO; -OMEP-218 PO; -PROT1TAB2 PO
[2020-05-28] MEDS ORDERED: OMEP-218 PO (12:45)
[2020-05-28] MEDS ORDERED: INSUDET SC (12:45)
[2020-05-28] MEDS ORDERED: FURO20TA2 PO (12:45)
[2020-05-28] MEDS ORDERED: BRIL90TA PO (12:45)
--- NOTE | 2020-05-28 13:07 | REP ---
INDICATION: CHEST PAIN. COMPARISON: Comparison chest x-ray May 14, 2020. TECHNIQUE: Portable upright AP chest radiograph. FINDINGS: The lungs are well inflated and free of infiltrate. Pleural angles are sharp. Heart size is normal. Pulmonary vasculature is not increased. Monitoring electrodes are noted. Vascular calcification is seen in the thoracic aorta. IMPRESSION: No active disease. <Electronically signed by Cecil Wheeler > 05/28/20 [id number]
[2020-05-28 13:17] LABS: BASO % 0.4 % (0.0-1.0); EOS # 0.1 10^3/uL (0.0-0.5); HEMATOCRIT 31.3 % (36.0-47.0); HEMOGLOBIN 9.9 g/dl (12.0-15.5); LYMPH # 0.8 10^3/uL (1.5-5.0); LYMPH % 10.7 % (24.0-44.0); MEAN CORPUSCULAR HEMOGLOBIN 30.1 pg (27.0-33.0); MEAN CORPUSCULAR HGB CONC 31.6 g/dl (32.0-36.5); MEAN CORPUSCULAR VOLUME 95.1 fl (80.0-96.0); MONO # 0.5 10^3/uL (0.0-0.8); MONO % 7.1 % (0.0-5.0); NEUTROPHILS # 5.7 10^3/uL (1.5-8.5); NEUTROPHILS % 80.1 % (36.0-66.0); PLATELET COUNT, AUTOMATED 275 10^3/uL (150-450); RED BLOOD COUNT 3.29 10^6/uL (4.00-5.40); WHITE BLOOD COUNT 7.1 10^3/uL (4.0-10.0)
[2020-05-28 13:29] LABS: INR 1.01; PROTHROMBIN TIME 13.5 SECONDS (12.5-14.3)
[2020-05-28 13:30] LABS: PARTIAL THROMBOPLASTIN TIME 22.2 SECONDS (24.2-38.5)
[2020-05-28 13:58] LABS: ALBUMIN 3.6 GM/DL (3.2-5.2); ALT/SGPT 21 U/L (12-78); BILIRUBIN,DIRECT 0.2 MG/DL (0.0-0.2); BILIRUBIN,TOTAL 0.6 MG/DL (0.2-1.0); BLOOD UREA NITROGEN 43 MG/DL (7-18); CALCIUM LEVEL 9.4 MG/DL (8.8-10.2); CARBON DIOXIDE LEVEL 30 MEQ/L (21-32); CHLORIDE LEVEL 98 MEQ/L (98-107); CK-MB VALUE MASS 1.1 NG/ML (<3.6); CPK CREATINE PHOSPHOKINASE 65 U/L (26-192); CREATININE FOR GFR 1.84 MG/DL (0.55-1.30); FREE T4 0.96 NG/DL (0.76-1.46); GLOMERULAR FILTRATION RATE 28.7 (>39); GLUCOSE, FASTING 207 MG/DL (70-100); MB/CK RELATIVE INDEX 1.69 (< OR =4); NT-PRO BNP 2081 PG/ML (<125); POTASSIUM SERUM 5.3 MEQ/L (3.5-5.1); SODIUM LEVEL 134 MEQ/L (136-145); TOTAL PROTEIN 6.9 GM/DL (6.4-8.2); TROPONIN I < 0.02 NG/ML (< 0.10)
[2020-05-28] MEDS ORDERED: NS 500 ML IV ONE (14:00)
[2020-05-28] MEDS ORDERED: PANTOPRAZOLE 40MG VIAL (C9113 PER 1) IV ONE (14:00)
[2020-05-28] MEDS ORDERED: GLIP5TAB8 PO (14:02)
[2020-05-28] MEDS ORDERED: MAGN64TASA PO (14:03)
[2020-05-28 15:05] LABS: RSV AMPLIFICATION NEGATIVE (NEGATIVE)
[2020-05-28] MEDS ORDERED: MAALOX 30 ML SUSP *UDC PO PRN (16:15)
[2020-05-28] MEDS ORDERED: MOM 30ML SUSPENSION UDC PO PRN (16:15)
[2020-05-28] MEDS ORDERED: ACETAMINOPHEN TAB 650MG DOSE (2X325MG) PO PRN (16:15)
--- NOTE | 2020-05-28 16:16 | HPEPDOC ---
[facility] Medical History & Physical Date of Admission May 28, 2020 Date of Service: May 28, 2020 History and Physical Note cancelled. Duplicate entry. Vital Signs Vital Signs Date Time Temp Pulse Resp B/P (MAP) Pulse Ox O2 Delivery O2 Flow Rate FiO2 05/28/20 15:45 145/63 (90) 05/28/20 15:42 76 100 05/28/20 12:44 95.2 18 Nasal Cannula 2.0 Laboratory Data Labs 24H Laboratory Tests 2 05/28/20 13:08: Immature Granulocyte % (Auto) 0.7, Neutrophils (%) (Auto) 80.1H, Lymphocytes (%) (Auto) 10.7L, Monocytes (%) (Auto) 7.1H, Eosinophils (%) (Auto) 1.0, Basophils (%) (Auto) 0.4, Neutrophils # (Auto) 5.7, Lymphocytes # (Auto) 0.8L, Monocytes # (Auto) 0.5, Eosinophils # (Auto) 0.1, Basophils # (Auto) 0.0, Nucleated Red Blood Cells % (auto) 0.0, Prothrombin Time 13.5, Prothromb Time International Ratio 1.01, Activated Partial Thromboplast Time 22.2L, Anion Gap 6L, Glomerular Filtration Rate 28.7L, Calcium Level 9.4, Total Bilirubin 0.6, Direct Bilirubin 0.2, Aspartate Amino Transf (AST/SGOT) 25, Alanine Aminotransferase (ALT/SGPT) 21, Alkaline Phosphatase 61, Total Creatine Kinase 65, Creatine Kinase MB 1.1, Creatine Kinase MB Relative Index 1.69, Troponin I < 0.02, NW-Uoq-H-Type Natriuretic Peptide 2081H, Total Protein 6.9, Albumin 3.6, Albumin/Globulin Ratio 1.1L, Thyroid Stimulating Hormone (TSH) 1.810, Free Thyroxine 0.96 05/28/20 14:14: Coronavirus (COVID-19)(PCR) NEGATIVE, Influenza Type A (RT-PCR) NEGATIVE, Influenza Type B (RT-PCR) NEGATIVE, Respiratory Syncytial Virus (PCR) NEGATIVE CBC/BMP Laboratory Tests 05/28/20 13:08 Home Medications Scheduled Aspirin (Aspirin EC) 81 Mg Tablet.dr, 81 MG PO DAILY Atorvastatin Calcium (Atorvastatin Calcium) 80 Mg Tablet, 80 MG PO QHS Carvedilol (Carvedilol) 25 Mg Tablet, 12.5 MG PO BID Duloxetine Hcl (Duloxetine HCl) 60 Mg Capsule.dr, 60 MG PO QPM Furosemide (Furosemide) 20 Mg Tablet, 20 MG PO DAILY Gabapentin (Gabapentin) 800 Mg Tablet, 800 MG PO QPM Insulin Detemir (Levemir) 100 Unit/1 Ml Vial, 10 UNITS SC DAILY Isosorbide Mononitrate (Isosorbide Mononitrate ER) 30 Mg Tab.er.24h, 30 MG PO DAILY Magnesium Chloride (Mag64) 64 Mg Tablet.dr, 64 MG PO DAILY Pantoprazole Sodium (Protonix) 40 Mg Tablet.dr, 40 MG PO DAILY Ranolazine (Ranolazine ER) 500 Mg Tab.er.12h, 500 MG PO BID Sucralfate (Carafate) 1 Gm Tablet, 1 GM PO ACHS 4 times per day take on an empty stomach Ticagrelor Base (Brilinta) 90 Mg Tablet, 90 MG PO BID Trandolapril (Trandolapril) 1 Mg Tablet, 0.5 MG PO QHS Allergies Coded Allergies: No Known Allergies (Verified , 07/22/07) ALICE MICHELLE MD May 28, 2020 16:16
--- NOTE | 2020-05-28 16:36 | HPEPDOC ---
[facility] [place] Medical History & Physical Date of Admission May 28, 2020 Date of Service: May 28, 2020 History and Physical CHIEF COMPLAINT: pre-syncope HISTORY OF PRESENT ILLNESS: 74-year-old female with a history of coronary artery disease status post stents, last one in September 2019, diabetes with neuropathy and nephropathy, COPD, stage III, hypertension, peripheral arterial disease presenting to ER with a one-day history of presyncopal episodes, weakness, and standing unsteady gait. Patient states that his episodes of that happening several times for the past year. She denies recent falls, but has fallen in the past. Of note, she reports the left brain aneurysm 2 as noted on her prior admission. I spoke to Dr. Burger regarding this. Recommended obtaining an MRI of the brain without contrast. If any significant findings to consult neurology. Patient also found to have fecal occult blood positive in the ER, hemoglobin 9.7. She reports her last colonoscopy was 5 years ago. She denies any active melena, dark stools, hematemesis. Further, she denies chest pain, nausea, vomiting, diarrhea, fevers and chills. PAST MEDICAL HISTORY: 1. Coronary artery disease, s/p 9 stents placed at [facility], 04/2019 and 09/2019 2. IDDM c/n nephropathy and neuropathy 3. Chronic kidney disease stage III. 4. Hypertension. 5. Hyperlipidemia. 6. Anxiety. 7. Chronic foot ulcer. 8. Reflux disease. 9. Peripheral arterial disease. PAST SURGICAL HISTORY: 1. BTL in 1975, LSO in 1980. 2. coronary PCIs, last in 04/2019, w/ 9 stents placed at [facility]. 3. Breast biopsy negative in 2009. 4. RLE angioplasty 5. Fem-pop bypass. 6. Right fifth metatarsal amputation SOCIAL HISTORY: Patient denies smoking Patient denies etoh use Patient denies illicit drug use FAMILY HISTORY: Mother at age 52 with diabetes, coronary artery disease. Brother at age 46. Brother with myocardial infarction at age 52. Father at age 59 with coronary artery disease and myocardial infar ction. ALLERGIES: Please see below. REVIEW OF SYSTEMS: 10 point review of systems performed, relevant findings noted in the HPI HOME MEDICATIONS: Please see below. PHYSICAL EXAMINATION: VITAL SIGNS: please see below General: NAD, comfortable HEENT: PERRLA, EOMI, sclerae clear Neck: supple, normal ROM, no JVD Respiratory: lungs CTAB, no wheeze, no rales, no crackles CVS: RRR, normal S1, S2, no murmurs Abdo: soft, no masses, no hepatosplenomegaly, BS+, no rebound tenderness Extremities: no edema, pulses 2+ MSK: no joint deformities, normal ROM Neuro: no focal neuro deficits, moving all 4 extremities, CN2-12 intact. Strength 5/5 in all 4 extremities. Vertical nystagmus noted Psych: calm, cooperative, AAO x 3 LABORATORY DATA: See below. IMAGING: CXR (05/28/20): The lungs are well inflated and free of infiltrate. Pleural angles are sharp. Heart size is normal. Pulmonary vasculature is not increased. Monitoring electrodes are noted. Vascular calcification is seen in the thoracic aorta. IMPRESSION: No active disease. MICROBIOLOGY: Please see below. . PLAN: Syncope, likely secondary to orthostasis possibly medication induced? - Trend. Orthostats - check ECHO - IVF - PT, OT - Check AM cortisol - per Dr. Burger, check brain MRI wo contrast. - will hold lasix, isosorbide. c/w metoprolol 12.5 mg bid. Positive fecal occult blood - Hgb 9.7 - denies melena, dark stools - last c-scope 5 years ago - trend HH q12h - if drops, consult GI for colonsopy/EGD - transfusion goal 8.0 hx of CHF? - type unknown - follows with Dr. Gibbs - no recent echo, ordered - given orthostasis will hold lasix 20 mg, isosorbide 30 mg tab - continue with metoprolol 12.5 mg BID - consider reducing dose on DC - appears clini PVD: - Continue statin - c/w ASA, will hold Brilinta IDDM: -consistent carbohydrate diet, 2g salt -resume home Levemir -sliding scale insulin -hold metformin and liraglutide -FSBG AC/HS -hypoglycemia protocol Hypertension: - continue home coreg CAD with nine coronary stents placed, last in 04/2019 - will continue ASA - will hold Brilinta in setting of possible GIB Depression - c/ duloxetine HLD. -Continue home lipitor GERD: -continue home BID PPI DVT ppx: SCDs, TEDs. Hold lovenox due to suspected GIB Vital Signs Vital Signs Date Time Temp Pulse Resp B/P (MAP) Pulse Ox O2 Delivery O2 Flow Rate FiO2 05/28/20 15:45 145/63 (90) 05/28/20 15:42 76 100 05/28/20 12:44 95.2 18 Nasal Cannula 2.0 Laboratory Data Labs 24H Laboratory Tests 2 05/28/20 13:08: Immature Granulocyte % (Auto) 0.7, Neutrophils (%) (Auto) 80.1H, Lymphocytes (%) (Auto) 10.7L, Monocytes (%) (Auto) 7.1H, Eosinophils (%) (Auto) 1.0, Basophils (%) (Auto) 0.4, Neutrophils # (Auto) 5.7, Lymphocytes # (Auto) 0.8L, Monocytes # (Auto) 0.5, Eosinophils # (Auto) 0.1, Basophils # (Auto) 0.0, Nucleated Red Blood Cells % (auto) 0.0, Prothrombin Time 13.5, Prothromb Time International Ratio 1.01, Activated Partial Thromboplast Time 22.2L, Anion Gap 6L, Glomerular Filtration Rate 28.7L, Calcium Level 9.4, Total Bilirubin 0.6, Direct Bilirubin 0.2, Aspartate Amino Transf (AST/SGOT) 25, Alanine Aminotransferase (ALT/SGPT) 21, Alkaline Phosphatase 61, Total Creatine Kinase 65, Creatine Kinase MB 1.1, Creatine Kinase MB Relative Index 1.69, Troponin I < 0.02, OL-Cwb-I-Type Natriuretic Peptide 2081H, Total Protein 6.9, Albumin 3.6, Albumin/Globulin Ratio 1.1L, Thyroid Stimulating Hormone (TSH) 1.810, Free Thyroxine 0.96 05/28/20 14:14: Coronavirus (COVID-19)(PCR) NEGATIVE, Influenza Type A (RT-PCR) NEGATIVE, Influenza Type B (RT-PCR) NEGATIVE, Respiratory Syncytial Virus (PCR) NEGATIVE CBC/BMP Laboratory Tests 05/28/20 13:08 Home Medications Scheduled Aspirin (Aspirin EC) 81 Mg Tablet.dr, 81 MG PO DAILY Atorvastatin Calcium (Atorvastatin Calcium) 80 Mg Tablet, 80 MG PO QHS Carvedilol (Carvedilol) 25 Mg Tablet, 12.5 MG PO BID Duloxetine Hcl (Duloxetine HCl) 60 Mg Capsule.dr, 60 MG PO QPM Furosemide (Furosemide) 20 Mg Tablet, 20 MG PO DAILY Gabapentin (Gabapentin) 800 Mg Tablet, 800 MG PO QPM Insulin Detemir (Levemir) 100 Unit/1 Ml Vial, 10 UNITS SC DAILY Isosorbide Mononitrate (Isosorbide Mononitrate ER) 30 Mg Tab.er.24h, 30 MG PO DAILY Magnesium Chloride (Mag64) 64 Mg Tablet.dr, 64 MG PO DAILY Pantoprazole Sodium (Protonix) 40 Mg Tablet.dr, 40 MG PO DAILY Ranolazine (Ranolazine ER) 500 Mg Tab.er.12h, 500 MG PO BID Sucralfate (Carafate) 1 Gm Tablet, 1 GM PO ACHS 4 times per day take on an empty stomach Ticagrelor Base (Brilinta) 90 Mg Tablet, 90 MG PO BID Trandolapril (Trandolapril) 1 Mg Tablet, 0.5 MG PO QHS Allergies Coded Allergies: No Known Allergies (Verified , 07/22/07) A-FIB/CHADSVASC A-FIB History Current/History of A-Fib/PAF?: No Current PO Anticoag Therapy: No ALICE MICHELLE MD May 28, 2020 16:36
[2020-05-28] MEDS ORDERED: GLUCOSE 4GM CHEW TABLET PO PRN (16:45)
[2020-05-28] MEDS ORDERED: GLUCAGON INJ 1MG VIAL SC PRN (16:45)
[2020-05-28] MEDS ORDERED: DEXTROSE 50% 50 ML SYRINGE IV PRN (16:45)
[2020-05-28] MEDS ORDERED: PILL CUTTER 1 EACH XX PRN (17:00)
[2020-05-28] MEDS: HumaLOG INSULIN (NovoLOG) PER UNIT SC SCH ×2 (17:30→21:00)
--- OUTSIDE RECORDS SUMMARY | 2020-05-28 17:52 | CCD ---
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 Z79.4 Activ e 076820405 Problem Coronary artery disease invo lving three affiliated coronary artery of three affiliated heart without angina pectoris I25.10 Active 623942259462 7 Problem Hypomagnesemia E83.42 Active 352954930 Problem Essential hypertension I10 Active 74312099 Problem Frequent falls R29.6 Active 306642771 Problem 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 Active 18366001 Problem CKD (chronic kidney disease) stage 3, GFR 30-59 ml/min N18.3 Active 666506571 Problem Skin ulcer of right foot with fat layer exposed L9 7.512 Active 49220495 Problem Gastroesophageal reflux disease without esophagitis K21.9 Active 380116981 ALLERGIES No Known Allergies ENCOUNTERS from 1945 to 2020-05-17 Encounter Location Date Provider Diagnosis [facility] [address] [place] [id number] Apr Sloane Urrutia Essential hypertension I10 ; Type 2 diab etes mellitus with other circulatory complications E11.59 ; CKD (chronic kidney disease) stage 3, GFR 30- 59 ml/min N18.3 ; Coronary artery disease involving three affiliated coronary artery of three affiliated heart without angina pectoris I25.10 ; Gastroesophageal reflux disease without esophagitis K21.9 ; Anemia, unspecified type D64.9 ; Hypomagnesemia E83.42 and Frequent falls R29.6 IMMUNIZATIONS Vaccine Route Administration Date Status Influenza (18 yrs & older) Flublok IM Intramuscular Jan 11 0 Administered SOCIAL HISTORY Tobacco Use: Social History Observation Description Date Details (start date - stop date) Former Smoker Sex Assigned At : Social History Observation Description Sex Assigned At Unknown Audit Question Answer Notes Total Score: 0 Interpretation: Alcohol Education Language: Question Answer Notes Languages spoken: Indian Sexual Hx: Question Answer Notes Had sex [...] No Information VITAL SIGNS Weight 130 lbs Apr, Height 60 in Apr, BMI 25.39 kg/m2 Apr, Heart Rate 86 /min Apr, Respiratory Rate 18 /min Apr, Temperature 97.9 degrees Fahrenheit Apr, Oximetry 98 Apr, Blood pressure systolic 98 mm Hg Apr, Blood pressure diastolic 50 mm Hg Apr, MEDICATIONS Medication SIG (Take, Route, Frequency, Duration) Notes Start Da te End Date Status Duloxetine HCl 60 MG 1 capsule Orally Once a day for 30 day(s) Active Biofreeze 1 application topically dqaily as needed for pain Active Acetaminophen 325 MG 2 tablet as needed Orally every 4 hrs Active Isosorbide Mononitrate ER 30 MG 1 tablet in the mornin g Orally Once a day for 30 day(s) Active Aspir-Low 81 MG 1 tablet Orally Once a day Active Hydrocodone-Acetaminophen 10-325 MG 1 tablet as needed Orally every 6 hrs MDD 4 for 5 day(s) Feb, Not-Taking Meclizine HCl 50 MG 1 tablet as needed Orally every 8 hours Active Gabapentin 800 MG 1 tablet Orally Once a day for 30 day(s) Active Ranexa 500 MG 1 tablet Orally Twice a day for 90 day(s) Active Victoza 18 MG/3ML 1.8 mg Subcutaneous Daily for 90 day(s) Active Atorvastatin Calcium 80 MG 1 tablet Orally Once a day for 90 day(s) Active Omeprazole 20 MG 1 capsule 30 minutes before morning meal Orally Once a day for 90 Active Trandolapril 1 MG 0.5 tablet Orally Once a day for 30 day(s) August, Active Slow Fe 142 (45 Fe) MG 1 tablet Orally Once a day for 90 day(s) Active Hydrocodone-Acetaminophen 5-325 MG (Schedule II Drug) TAKE 1 TABLET BY MOUTH EVERY 6 HOURS NEEDED FOR PAIN . DO NOT EXCEED 4 PER 24 HOURS Oral for 2 Not-Taking Metformin HCl 1000 MG 1 tablet in the morning and 1.5 tablets in the evening Orally twice a day Active Brilinta 90 MG 1 tablet Orally Twice a day for 30 day(s) Active Ranolazine ER 500 MG TAKE 1 TABLET BY MOUTH TWICE DAILY Oral for 90 Active Pantoprazole Sodium 40 MG 1 tablet Orally twice a day for 90 day(s) Active Carvedilol 25 MG 0.5 tablet with food Orally Twice a day Active Clopidogrel Bisulfate 75 MG 1 tablet Orally Once a day for 90 day(s) Active Ferrous Sulfate 325 (65 Fe) MG 1 tablet Orally Once a day for 30 day( s) Active Magnesium Chloride 64 MG 1 tablet Orally ONCE a day Active Nitrostat 0.4 MG as directed Sublingual Active PROCEDURES No Information RESULTS Component Value Reference Range CBC with Differential Reviewed date:05/12/2020 12:56:38 Interpretation: Performing Lab:Count Includes [facility], [facility] [id number] , ,[place] [address] WHITE BLOOD COUNT 7.0 4.0-10.0 RED BLOOD COUNT 3.18 4.00-5.40 HEMOGLOBIN 9.6 12.0-15.5 HEMATOCRIT 31.8 36.0-47.0 MEAN CORPUSCULAR VOLUME 100.0 80.0-96.0 MEAN CORPUSCULAR HEMOGLOBIN 30.2 27.0-33.0 MEAN CORPUSCULAR HGB CONC 30.2 32.0-36.5 RED CELL DISTRIBUTION WIDTH 14.6 11.5-14.5 PLATELET COUNT, AUTOMATED 221 150-450 NEUTROPHILS % 72.5 36.0-66.0 LYMPH % 17.0 24.0-44.0 MONO % 8.6 0.0-5.0 EOS % 1.1 0.0-3.0 BASO % 0.4 0.0-1.0 NEUTROPHILS # 5.1 1.5-8.5 LYMPH # 1.2 1.5-5.0 MONO # 0.6 0.0-0.8 EOS # 0.1 0.0-0.5 BASO # 0.0 0.0-0.2 Comprehensive Metabolic Profile (CMP) Reviewed date:05/12/2020 12:56:29 Interpretation: Performing Lab:[facility] [address] [address] , ,[facility] GLUCOSE, FASTING 125 70-100 BLOOD UREA NITROGEN 25 7-18 CREATININE FOR GFR 1.19 0.55-1.30 GLOMERULAR FILTRATION RATE 47.5 >39 SODIUM LEVEL 138 136-145 POTASSIUM SERUM 5.0 3.5-5.1 CHLORIDE LEVEL 104 98-107 CARBON DIOXIDE LEVEL 24 21-32 CALCIUM LEVEL 9.3 8.8-10.2 AST/SGOT 12 7-37 ALT/SGPT 17 12-78 ALKALINE PHOSPHATASE 49 45-117 BILIRUBIN,TOTAL 0.4 0.2-1.0 TOTAL PROTEIN 6.4 6.4-8.2 ALBUMIN 3.7 3.2-5.2 ALBUMIN/GLOBULIN RATIO 1.4 1.2-2.2 HEMOGLOBIN A1c Reviewed date:05/12/2020 13:12:29 Interpretation: Performing Lab:[facility] [address] [facility] [address] , ,[facility] HEMOGLOBIN A1c 6.2 ESTIMATED AVERAGE GLUCOSE 131 60-110 MAGNESIUM LEVEL Reviewed date:05/12/2020 12:56:20 Interpretation: Performing Lab:[facility] [address] [address] , ,[facility] MAGNESIUM LEVEL 1.9 1.8-2.4 REASON FOR VISIT 4 week follow up [...] 2013 Surgical History colonoscopy: Michael: adenomatous polyp 2015 Surgical History cardiac cath with stents: [facility] 04/2019 Surgical History Fem/pop bypass Surgical History stent placed 09/2019 Hospitalization History OR at [facility] 1992 Hospitalization History cardiac 04/2019 Hospitalization [...] Treatment Notes Treatm ent Clinical Notes Apr, Essential hypertension (ICD-10 - I10) Continue Carvedilol at current dosing. 25 mg dosing causes hypotension. planend 30 day monitor for atrial fib. Has been in NSR. Not fully anti-coagulated due to bleeding risk. Apr, Type 2 diabetes mellitus wit h other circulatory complications (ICD- 10 - E11.59) Hgba1c 5.7 12/2019. Repeat level today. Reviewed s/s hypoglycemia. HOLD Victoza monitor sugars and repeat labs today. A trial her off of her Victoza to see if that helps with any of her GI symptoms and in turn may improve her hypomagnesemia due to decreased loss of mag. Apr, CKD (chronic kidney disease) stage 3, GFR 30-59 ml/min (ICD-10 - N18.3) stable. continue with Dr. Paiz consult. Apr, Coronary artery disease invo lving three affiliated coronary artery of three affiliated heart without angina pectoris (ICD-10 - I25.10) Cont with cardiology. Apr, Gastroesophageal reflux dise ase without esophagitis (ICD-10 - K21.9) limit acidic foods including tomatoes. Continue current medication. This is definitely a contributing factor to her low magnesium levels. We will attempt to have her on the lowest dose possible. She will continue with gastroenterology Apr, Anemia, unspecified type (ICD-10 - D64.9) Apr, Hypomagnesemia (ICD-10 - E83.42) Patient stays at the 1.5-1.6 range, typically at baseline. We will continue with nephrology for further evaluation of hypomagnesemia causes and continue to try to cut down on medications that may have contributing factors Apr, Frequent falls (ICD-10 - R29.6) Apr, Other Patient and jhoan braxton verbalized understanding and agreement with plan. PLAN OF TREATMENT Medication Medication Name Sig Start Date Stop Date Pantoprazole Sodium 40 MG 1 tablet Orally twice a day for 90 day (s) Slow Fe 142 (45 Fe) MG 1 tablet Orally Once a day for 90 day(s) Carvedilol 25 MG 0.5 tablet with food Orally Twice a day Treatment Notes Assessment Notes Clinical Notes Essential hypertension Continue Carvedil ol at current dosing. 25 mg dosing causes hypotension. planend 30 day monitor for atrial fib. Has been in NSR. Not fully anti-coagulated due to bleeding risk. Type 2 diabetes mellitus with other circulatory complication s Hgba1c 5.7 12/2019. Repeat level today. Reviewed s/s hypoglycemia. HOLD Victoza monitor sugars and repeat labs today.A trial her off of her Victoza to see if that helps with any of her GI symptoms and in turn may improve her hypomagnesemia due to decreased loss of mag. CKD (chronic kidney disease) stage 3, GFR 30-59 ml/min stable. continue with Dr. Paiz consult. Coronary artery disease involving three affiliated coronary artery of three affiliated heart without angina pectoris Cont with cardiology. [...] on medications that may have contributing factors Next Appt Details 4 Weeks Reason: Provider Name:Sloane Urrutia, 06-10 03:30:00 PM, [address] [place], [address], Insurance Providers Payer Name Payer Address Payer Phone Insured Name Patient Relati onship to Insured Coverage Start Date Coverage End Date [employer] [facility] CLAIM DIV [address] [facility] [phone] MIREILLE RODAS MEDICARE Part A and B [address] [facility] [address] MIREILLE RODAS self
--- OUTSIDE RECORDS SUMMARY | 2020-05-28 17:53 | CCD ---
Author Author [facility]st [facility] Organization 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 Z79.4 Activ e 701054781 Problem Coronary artery disease invo lving [place] coronary artery of [place] heart without angina pectoris I25.10 Active 357698394024 7 Problem Hypomagnesemia E83.42 Active 408092712 Problem Essential hypertension I10 Active 90991992 Problem Frequent falls R29.6 Active 622110019 Problem 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 Active 67267108 Problem CKD (chronic kidney disease) stage 3, GFR 30-59 ml/min N18.3 Active 588891000 Problem Skin ulcer of right foot with fat layer exposed L9 7.512 Active 75910909 Problem Gastroesophageal reflux disease without esophagitis K21.9 Active 776327380 ALLERGIES No Known Allergies ENCOUNTERS from 1945 to 2020-05-14 Encounter Location Date Provider Diagnosis [address] [address] [place] [address] Apr Sloane Urrutia IMMUNIZATIONS Vaccine Route Administration [...] Education Language: Question Answer Notes Languages spoken: Macedonian Sexual Hx: Question Answer Notes Had sex [...] directed Sublingual Active PROCEDURES No Information RESULTS No Results [...] 2014 Surgical History cardiac cath with stents: [facility] 04/2019 Surgical History Fem/pop bypass Surgical History stent placed 09/2019 [facility] History [facility] 1992 Hospitalization History cardiac 04/2019 Hospitalization History [facility]- right foot ulcer 06/01/19 Hospitalization History anemia 06/30/19 Hospitalization History [facility] for 2 days for pneumonia 08/2019 [...] tablet with food Orally Twice a day Next Appt Details Provider Name:Sloane Urrutia, 06-10 03:30:00 PM, [address] [place], [address], Insurance Providers Payer Name Payer Address Payer Phone Insured Name Patient Relati onship to Insured Coverage Start Date Coverage End Date MEDICARE Part A and B [address] [facility] [id number] [phone] MIREILLE RODAS [facility] HEALTH CARE [facility] CLAIM DIV [address] [facility] [phone] MIREILLE RODAS self
[2020-05-28 18:54] VITALS: BP 153/65
--- NOTE | 2020-05-28 20:15 | ECGEPIP ---
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
[2020-05-28] MEDS ORDERED: ENOXAPARIN 30MG/0.3ML SYRINGE (J1650 PER 10MG) SC SCH (21:00)
[2020-05-28] MEDS ORDERED: PANTOPRAZOLE 40MG VIAL (C9113 PER 1) IV SCH (21:00)
--- NOTE | 2020-05-28 21:11 | REPVR ---
PROCEDURE INFORMATION: Exam: MR Head Without Contrast Exam date and time: 05/28/2020 8:54 PM Age: 74 years old Clinical indication: Patient HX: Dizziness, nystagmus. ; Additional info: HX aneurysm, dizziness, nystagmus. TECHNIQUE: Imaging protocol: MR of the head without contrast. COMPARISON: MRI-Brain without Contrast 11/04/2019 6:26 PM FINDINGS: Brain: Multiple foci of T2 lengthening are demonstrated in the subcortical, periventricular and centrum semiovale white matter consistent with age-related small vessel gliosis. Moderate age related parenchymal atrophy. Cerebral ventricles: Normal. No ventriculomegaly. Bones/joints: Unremarkable. Paranasal sinuses: Normal as visualized. No acute sinusitis. Mastoid air cells: Normal as visualized. No mastoid effusion. Orbital cavity: Unremarkable. Soft tissues: Unremarkable. Other vasculature: Redemonstration of 2 contiguous left M1 segment aneurysms. IMPRESSION: 1. Multiple foci of T2 lengthening are demonstrated in the subcortical, periventricular and centrum semiovale white matter consistent with age-related small vessel gliosis. 2. Moderate age related parenchymal atrophy. 3. 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 Electronically signed by: Efrain Bauer On 05/28/2020 21:10:48 PM
[2020-05-28] MEDS: DOCUSATE SODIUM 100MG CAPSULE PO SCH (21:56)
[2020-05-28] MEDS: trandolapriL 1 MG TAB PO SCH (21:56)
[2020-05-28] MEDS: DULoxetine 30 MG CAP (CYMBALTA) PO SCH (21:56)
[2020-05-28] MEDS: GABAPENTIN 400 MG CAP PO SCH (21:57)
[2020-05-28] MEDS: RANOLAZINE 500 MG ER TAB PO SCH (21:57)
[2020-05-28] MEDS: ATORVASTATIN 20 MG TAB PO SCH (21:57)
[2020-05-28] MEDS: CARVedilol 12.5 MG TAB PO SCH (21:57)
[2020-05-28 22:00] VITALS: BP 146/64
[2020-05-29 06:00] VITALS: BP 148/62
[2020-05-29 06:36] LABS: BASO % 0.5 % (0.0-1.0); EOS # 0.1 10^3/uL (0.0-0.5); EOS % 1.5 % (0.0-3.0); HEMATOCRIT 28.4 % (36.0-47.0); HEMOGLOBIN 8.8 g/dl (12.0-15.5); LYMPH # 1.7 10^3/uL (1.5-5.0); MEAN CORPUSCULAR HEMOGLOBIN 29.6 pg (27.0-33.0); MEAN CORPUSCULAR VOLUME 95.6 fl (80.0-96.0); MONO # 0.6 10^3/uL (0.0-0.8); MONO % 9.2 % (0.0-5.0); NEUTROPHILS # 3.8 10^3/uL (1.5-8.5); NEUTROPHILS % 61.3 % (36.0-66.0); PLATELET COUNT, AUTOMATED 236 10^3/uL (150-450); RED BLOOD COUNT 2.97 10^6/uL (4.00-5.40); WHITE BLOOD COUNT 6.1 10^3/uL (4.0-10.0)
[2020-05-29 07:00] LABS: ALBUMIN 3.4 GM/DL (3.2-5.2); BILIRUBIN,TOTAL 0.4 MG/DL (0.2-1.0); CALCIUM LEVEL 9.3 MG/DL (8.8-10.2); CREATININE FOR GFR 1.52 MG/DL (0.55-1.30); GLOMERULAR FILTRATION RATE 35.8 (>39); MAGNESIUM LEVEL 2.5 MG/DL (1.8-2.4); POTASSIUM SERUM 3.9 MEQ/L (3.5-5.1); TOTAL PROTEIN 6.3 GM/DL (6.4-8.2)
[2020-05-29] MEDS: HumaLOG INSULIN (NovoLOG) PER UNIT SC SCH ×4 (08:58→21:00)
[2020-05-29] MEDS: PANTOPRAZOLE 40MG VIAL (C9113 PER 1) IV SCH ×2 (08:58→21:29)
[2020-05-29] MEDS: DOCUSATE SODIUM 100MG CAPSULE PO SCH ×2 (08:59→21:29)
[2020-05-29] MEDS: FUROSEMIDE 20 MG TAB PO SCH (08:59)
[2020-05-29] MEDS: ASPIRIN 81 MG ENTERIC TAB PO SCH (08:59)
[2020-05-29] MEDS: ISOSORBIDE MON. (IMDUR) 30 MG XR TAB PO SCH (08:59)
[2020-05-29] MEDS ORDERED: OMEPRAZOLE 20 MG CAP PO SCH (09:00)
[2020-05-29] MEDS: CARVedilol 12.5 MG TAB PO SCH ×2 (09:00→21:29)
[2020-05-29] MEDS ORDERED: LEVEMIR (INSULIN DETEMIR) 1 UNITS/0.01ML SC SCH (09:00)
[2020-05-29] MEDS: RANOLAZINE 500 MG ER TAB PO SCH ×2 (09:48→21:29)
--- NOTE | 2020-05-29 12:08 | IPNPDOC ---
Date Seen The patient was seen on 05/29/20. Progress Note SUBJECTIVE: still c/o black stools but on iron. denies sob, cp, pressure, palpitations, lightheadedness. no c/o dizziness or recurrent near syncope. OBJECTIVE PHYSICAL EXAMINATION: VITAL SIGNS: Please see below. General: NAD, no pallor no distress no cyanosis HEENT: supple, normal ROM, no JVD Respiratory: lungs CTAB, no wheeze, no rales, no crackles CVS: RRR, normal S1, S2, no murmurs Abdo: soft, no masses, no hepatosplenomegaly, BS+, no rebound tenderness Extremities: no edema, pulses 2+ LABORATORY DATA, IMAGING STUDIES, MICROBIOLOGY: Please see below. ASSESSMENT AND PLAN: 74-year-old female with a history of coronary artery disease status post stents, last one in September 2019, diabetes with neuropathy and nephropathy, COPD, stage III, hypertension, peripheral arterial disease presenting to ER with a one-day history of presyncopal episodes, weakness, and standing unsteady gait. Patient states that his episodes of that happening several times for the past year. She denies recent falls, but has fallen in the past. Of note, she reports the left brain aneurysm 2 as noted on her prior admission. I spoke to Dr. Solorzano regarding this. Recommended obtaining an MRI of the brain without contrast. If any significant findings. 2. Consult neurology. Patient also found to have fecal occult blood positive in the ER, hemoglobin 9.7. She reports her last colonoscopy was 5 years ago. She denies any active melena, dark stools, hematemesis. Further, she denies chest pain, nausea, vomiting, diarrhea, fevers and chills. PROBLEMS: syncope heme+ stool hx of CHF? PVD: IDDM: Hypertension: CAD with nine coronary stents placed, last in 04/2019 Depression HLD. GERD plan: no new c/o and hgb 8.8, if continues to drop, rbc transfusion. trial of ppi and carafate. tele x 48hrs. echo. fall precautions continued on meds, but holding any anticoagulants. VS, I&O, 24H, Fishbone Vital Signs/I&O Vital Signs Date Time Temp Pulse Resp B/P (MAP) Pulse Ox O2 Delivery O2 Flow Rate FiO2 05/29/20 09:00 80 148/62 05/29/20 06:00 97.9 17 95 Room Air 05/28/20 12:44 2.0 I&O- Last 24 Hours up to 6 AM 05/29/20 06:00 Intake Total 360 ml Output Total 200 ml Balance 160 ml Laboratory Data 24H LABS Laboratory Tests 2 05/28/20 13:08: Immature Granulocyte % (Auto) 0.7, Neutrophils (%) (Auto) 80.1H, Lymphocytes (%) (Auto) 10.7L, Monocytes (%) (Auto) 7.1H, Eosinophils (%) (Auto) 1.0, Basophils (%) (Auto) 0.4, Neutrophils # (Auto) 5.7, Lymphocytes # (Auto) 0.8L, Monocytes # (Auto) 0.5, Eosinophils # (Auto) 0.1, Basophils # (Auto) 0.0, Nucleated Red Blood Cells % (auto) 0.0, Prothrombin Time 13.5, Prothromb Time International Ratio 1.01, Activated Partial Thromboplast Time 22.2L, Anion Gap 6L, Glomerular Filtration Rate 28.7L, Calcium Level 9.4, Total Bilirubin 0.6, Direct Bilirubin 0.2, Aspartate Amino Transf (AST/SGOT) 25, Alanine Aminotransferase (ALT/SGPT) 21, Alkaline Phosphatase 61, Total Creatine Kinase 65, Creatine Kinase MB 1.1, Creatine Kinase MB Relative Index 1.69, Troponin I < 0.02, KK-Arm-P-Type Natriuretic Peptide 2081H, Total Protein 6.9, Albumin 3.6, Albumin/Globulin Ratio 1.1L, Thyroid Stimulating Hormone (TSH) 1.810, Free Thyroxine 0.96 05/28/20 14:14: Coronavirus (COVID-19)(PCR) NEGATIVE, Influenza Type A (RT-PCR) NEGATIVE, Influenza Type B (RT-PCR) NEGATIVE, Respiratory Syncytial Virus (PCR) NEGATIVE 05/28/20 19:05: Bedside Glucose (Misc Panel) 152H 05/28/20 21:55: Bedside Glucose (Misc Panel) 230H 05/29/20 05:50: Immature Granulocyte % (Auto) 0.5, Neutrophils (%) (Auto) 61.3, Lymphocytes (%) (Auto) 27.0, Monocytes (%) (Auto) 9.2H, Eosinophils (%) (Auto) 1.5, Basophils (%) (Auto) 0.5, Neutrophils # (Auto) 3.8, Lymphocytes # (Auto) 1.7, Monocytes # (Auto) 0.6, Eosinophils # (Auto) 0.1, Basophils # (Auto) 0.0, Nucleated Red Blood Cells % (auto) 0.0, Anion Gap 8, Glomerular Filtration Rate 35.8L, Calcium Level 9.3, Magnesium Level 2.5H, Total Bilirubin 0.4, Aspartate Amino Transf (AST/SGOT) 15, Alanine Aminotransferase (ALT/SGPT) 19, Alkaline Phosphatase 58, Total Protein 6.3L, Albumin 3.4, Albumin/Globulin Ratio 1.2 05/29/20 11:28: Bedside Glucose (Misc Panel) 283H CBC/BMP Laboratory Tests 05/28/20 13:08 05/29/20 05:50 ELYSSA SHANNON MD May 29, 2020 11:45
[2020-05-29 14:00] VITALS: BP 118/53
[2020-05-29] MEDS: DULoxetine 30 MG CAP (CYMBALTA) PO SCH (21:28)
[2020-05-29] MEDS: GABAPENTIN 400 MG CAP PO SCH (21:29)
[2020-05-29] MEDS: trandolapriL 1 MG TAB PO SCH (21:29)
[2020-05-29] MEDS: ATORVASTATIN 20 MG TAB PO SCH (21:29)
[2020-05-29 22:00] VITALS: BP 128/56
[2020-05-30 06:00] VITALS: BP 128/58
[2020-05-30 06:08] LABS: BASO % 0.4 % (0.0-1.0); EOS # 0.1 10^3/uL (0.0-0.5); EOS % 2.2 % (0.0-3.0); HEMATOCRIT 30.3 % (36.0-47.0); HEMOGLOBIN 9.4 g/dl (12.0-15.5); LYMPH # 1.9 10^3/uL (1.5-5.0); LYMPH % 33.5 % (24.0-44.0); MEAN CORPUSCULAR HEMOGLOBIN 29.6 pg (27.0-33.0); MEAN CORPUSCULAR VOLUME 95.3 fl (80.0-96.0); MONO # 0.6 10^3/uL (0.0-0.8); MONO % 10.3 % (0.0-5.0); NEUTROPHILS % 53.2 % (36.0-66.0); PLATELET COUNT, AUTOMATED 232 10^3/uL (150-450); RED BLOOD COUNT 3.18 10^6/uL (4.00-5.40); WHITE BLOOD COUNT 5.5 10^3/uL (4.0-10.0)
[2020-05-30 06:38] LABS: ALBUMIN 3.4 GM/DL (3.2-5.2); BILIRUBIN,TOTAL 0.3 MG/DL (0.2-1.0); CALCIUM LEVEL 9.2 MG/DL (8.8-10.2); CREATININE FOR GFR 1.48 MG/DL (0.55-1.30); GLOMERULAR FILTRATION RATE 36.9 (>39); POTASSIUM SERUM 4.1 MEQ/L (3.5-5.1); TOTAL PROTEIN 6.6 GM/DL (6.4-8.2)
[2020-05-30] MEDS: PANTOPRAZOLE 40MG VIAL (C9113 PER 1) IV SCH (08:06)
[2020-05-30] MEDS: RANOLAZINE 500 MG ER TAB PO SCH (08:07)
[2020-05-30] MEDS: HumaLOG INSULIN (NovoLOG) PER UNIT SC SCH (08:07)
[2020-05-30] MEDS: FUROSEMIDE 20 MG TAB PO SCH (08:07)
[2020-05-30] MEDS: CARVedilol 12.5 MG TAB PO SCH (08:07)
[2020-05-30 08:08] VITALS: BP 128/58
[2020-05-30] MEDS: ISOSORBIDE MON. (IMDUR) 30 MG XR TAB PO SCH (08:08)
[2020-05-30] MEDS: DOCUSATE SODIUM 100MG CAPSULE PO SCH (08:08)
[2020-05-30] MEDS: ASPIRIN 81 MG ENTERIC TAB PO SCH (08:08)
[2020-05-30] MEDS ORDERED: CARA1TAB6 PO (08:48)
[2020-05-30] MEDS ORDERED: PROT1TAB2 PO (08:48)
--- NOTE | 2020-05-30 12:17 | DS.PDOC ---
Discharge Summary General Date of Admission May 28, 2020 at 17:44 Date of Discharge 05/30/20 Discharge Summary DISCHARGE DIAGNOSES: syncope-normal ECHO Chronic Anemia Iron Deficiency Heme positive Stool hx of CHF,compensated PVD IDDM Hypertension: CAD with nine coronary stents placed, last in 04/2019 Depression HLD. GERD DISCHARGE MEDICATIONS: SEE BELOW ALLERGIES: SEE BELOW DISCHARGE INSTRUCTIONS: PCP FU [facility] COURSE 74-year-old female with a history of coronary artery disease status post stents, last one in September 2019, diabetes with neuropathy and nephropathy, COPD, stage III, hypertension, peripheral arterial disease presenting to ER with a one-day history of presyncopal episodes, weakness, and standing unsteady gait. Patient states that his episodes of that happening several times for the past year. She denies recent falls, but has fallen in the past. Of note, she reports the left brain aneurysm 2 as noted on her prior admission. I spoke to Dr. Solorzano regarding this. Recommended obtaining an MRI of the brain without contrast. If any significant findings. 2. Consult neurology. Patient also found to have fecal occult blood positive in the ER, hemoglobin 9.7. She reports her last colonoscopy was 5 years ago. She denies any active melena, dark stools, hematemesis. Further, she denies chest pain, nausea, vomiting, diarrhea, fevers and chills. Patient's echo 2 weeks ago from [facility] was reviewed, and had no hemodynamically significant valvular disease to explain her syncopal episode, with an unremarkable telemetry monitoring for 48hrs, and no drop in hemoglobin, and no RBC transfusion given. pt cleared physical therapy and was discharged home in stable condition. DISCHARGE PHYSICAL EXAMINATION: VITAL SIGNS: Please see below. General: NAD, no pallor no distress no cyanosis HEENT: supple, normal ROM, no JVD Respiratory: lungs CTAB, no wheeze, no rales, no crackles CVS: RRR, normal S1, S2, no murmurs Abdo: soft, no masses, no hepatosplenomegaly, BS+, no rebound tenderness Extremities: no edema, pulses 2+ DISCHARGE LABORATORY DATA, IMAGING STUDIES, MICROBIOLOGY: Please see below. PROCEDURE INFORMATION: Exam: MR Head Without Contrast Exam date and time: 05/28/2020 8:54 PM Age: 74 years old Clinical indication: Patient HX: Dizziness, nystagmus. ; Additional info: HX aneurysm, dizziness, nystagmus. TECHNIQUE: Imaging protocol: MR of the head without contrast. COMPARISON: MRI-Brain without Contrast 11/04/2019 6:26 PM FINDINGS: Brain: Multiple foci of T2 lengthening are demonstrated in the subcortical, periventricular and centrum semiovale white matter consistent with age-related small vessel gliosis. Moderate age related parenchymal atrophy. Cerebral ventricles: Normal. No ventriculomegaly. Bones/joints: Unremarkable. Paranasal sinuses: Normal as visualized. No acute sinusitis. Mastoid air cells: Normal as visualized. No mastoid effusion. Orbital cavity: Unremarkable. Soft tissues: Unremarkable. Other vasculature: Redemonstration of 2 contiguous left M1 segment aneurysms. IMPRESSION: 1. Multiple foci of T2 lengthening are demonstrated in the subcortical, periventricular and centrum semiovale white matter consistent with age-related small vessel gliosis. 2. Moderate age related parenchymal atrophy. 3. 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 Electronically signed by: Efrain Renner On 05/28/2020 21:10:48 PM DD: EFRAIN RENNER MD 05/28/202053 DT: SVETA 05/28/202109 DS: CARLEE 05/28/202109 INDICATION: CHEST PAIN. COMPARISON: Comparison chest x-ray May 14, 2020. TECHNIQUE: Portable upright AP chest radiograph. FINDINGS: The lungs are well inflated and free of infiltrate. Pleural angles are sharp. Heart size is normal. Pulmonary vasculature is not increased. Monitoring electrodes are noted. Vascular calcification is seen in the thoracic aorta. IMPRESSION: No active disease. <Electronically signed by Cecil Wheeler > 05/28/20 1304 TIME SPENT ON DISCHARGE; 30 MINUTES Vital Signs/I&Os Vital Signs Date Time Temp Pulse Resp B/P (MAP) Pulse Ox O2 Delivery O2 Flow Rate FiO2 05/30/20 08:08 128/58 05/30/20 08:07 71 05/30/20 06:00 96.5 20 96 05/29/20 14:00 Room Air 05/28/20 12:44 2.0 I&O- Last 24 Hours up to 6 AM 05/30/20 06:00 Intake Total 1780 ml Output Total 2400 ml Balance -620 ml Laboratory Data Labs 24H Laboratory Tests 2 05/29/20 16:41: Bedside Glucose (Misc Panel) 224H 05/29/20 20:44: Bedside Glucose (Misc Panel) 193H 05/30/20 05:29: Immature Granulocyte % (Auto) 0.4, Neutrophils (%) (Auto) 53.2, Lymphocytes (%) (Auto) 33.5, Monocytes (%) (Auto) 10.3H, Eosinophils (%) (Auto) 2.2, Basophils (%) (Auto) 0.4, Neutrophils # (Auto) 3.0, Lymphocytes # (Auto) 1.9, Monocytes # (Auto) 0.6, Eosinophils # (Auto) 0.1, Basophils # (Auto) 0.0, Nucleated Red Blood Cells % (auto) 0.0, Anion Gap 9, Glomerular Filtration Rate 36.9L, Calcium Level 9.2, Magnesium Level 2.0, Total Bilirubin 0.3, Aspartate Amino Transf (AST/SGOT) 16, Alanine Aminotransferase (ALT/SGPT) 20, Alkaline Phosphatase 58, Total Protein 6.6, Albumin 3.4, Albumin/Globulin Ratio 1.1L CBC/BMP Laboratory Tests 05/30/20 05:29 FSBS Laboratory Tests Test 05/29/20 16:41 05/29/20 20:44 Range/Units Bedside Glucose (Misc Panel) 224 193 83-110 MG/DL Discharge Medications Scheduled Aspirin (Aspirin EC) 81 Mg Tablet.dr, 81 MG PO DAILY, (Reported) Atorvastatin Calcium (Atorvastatin Calcium) 80 Mg Tablet, 80 MG PO QHS, (Reported) Carvedilol (Carvedilol) 25 Mg Tablet, 12.5 MG PO BID, (Reported) Duloxetine Hcl (Duloxetine HCl) 60 Mg Capsule.dr, 60 MG PO QPM, (Reported) Furosemide (Furosemide) 20 Mg Tablet, 20 MG PO DAILY, (Reported) Gabapentin (Gabapentin) 800 Mg Tablet, 800 MG PO QPM, (Reported) Insulin Detemir (Levemir) 100 Unit/1 Ml Vial, 10 UNITS SC DAILY, (Reported) Isosorbide Mononitrate (Isosorbide Mononitrate ER) 30 Mg Tab.er.24h, 30 MG PO DAILY, (Reported) Magnesium Chloride (Mag64) 64 Mg Tablet.dr, 64 MG PO DAILY, (Reported) Pantoprazole Sodium (Protonix) 40 Mg Tablet.dr, 40 MG PO DAILY Ranolazine (Ranolazine ER) 500 Mg Tab.er.12h, 500 MG PO BID, (Reported) Sucralfate (Carafate) 1 Gm Tablet, 1 GM PO ACHS 4 times per day take on an empty stomach Ticagrelor Base (Brilinta) 90 Mg Tablet, 90 MG PO BID, (Reported) Trandolapril (Trandolapril) 1 Mg Tablet, 0.5 MG PO QHS, (Reported) Allergies Coded Allergies: No Known Allergies (Verified , 07/22/07) ELYSSA SHANNON MD May 30, 2020 12:17
[2020-05-30] MEDS ORDERED: LEVEMIR (INSULIN DETEMIR) 1 UNITS/0.01ML SC SCH (21:00)
[2020-05-31 11:00] LABS: CORTISOL AM 16.7 UG/DL (4.3-22.4)
== END 2020-05-30 10:42 | disposition home or self-care (01) | DRG 312 ==
LOC: M ED 12:27 → EDBD 12:27 → M ED INP 17:44 → M MSPAV 18:55
PROVIDERS: ADMIT Family Medicine; ATTEND General Practice
DX: R55 Syncope and collapse (principal); I13.0 Hypertensive heart and chronic kidney disease with heart failure and stage 1 through stage 4 chronic kidney disease, or unspecified chronic kidney disease; I25.10 Atherosclerotic heart disease of native coronary artery without angina pectoris; E11.22 Type 2 diabetes mellitus with diabetic chronic kidney disease; E11.40 Type 2 diabetes mellitus with diabetic neuropathy, unspecified; N18.30 Chronic kidney disease, stage 3 unspecified; E78.5 Hyperlipidemia, unspecified; F41.9 Anxiety disorder, unspecified; E11.621 Type 2 diabetes mellitus with foot ulcer; K21.9 Gastro-esophageal reflux disease without esophagitis; R26.81 Unsteadiness on feet; E11.51 Type 2 diabetes mellitus with diabetic peripheral angiopathy without gangrene; Z66 Do not resuscitate; Z95.5 Presence of coronary angioplasty implant and graft; Z89.421 Acquired absence of other right toe(s); Z98.62 Peripheral vascular angioplasty status; I50.9 Heart failure, unspecified; Z20.822 Contact with and (suspected) exposure to COVID-19; Z79.82 Long term (current) use of aspirin; Z79.899 Other long term (current) drug therapy; Z79.4 Long term (current) use of insulin

== ENCOUNTER → 2020-05-28 | Outpatient (REF) | payer MEDICARE ==
[~2020-05-28] MED LIST changes: +CARA1TAB6 PO; +FURO20TA2 PO; +GLIP5TAB8 PO; +OMEP-218 PO; +PROT1TAB2 PO
[2020-05-28 16:09] LABS: CALCIUM LEVEL 9.6 MG/DL (8.8-10.2); CREATININE FOR GFR 1.71 MG/DL (0.55-1.30); GLOMERULAR FILTRATION RATE 31.2 (>39)
== END ==
LOC: M SFHCCLAY 10:05
PROVIDERS: ATTEND Nurse Practitioner Family
DX: I50.9 Heart failure, unspecified (principal)

== ENCOUNTER → 2020-06-09 | Outpatient (REF) | payer MEDICARE ==
[~2020-06-09] MED LIST changes: +CARA1TAB6 PO; +FURO20TA2 PO; +GLIP5TAB8 PO; +OMEP-218 PO; +PROT1TAB2 PO
[2020-06-09 16:42] LABS: CALCIUM LEVEL 9.5 MG/DL (8.8-10.2); CREATININE FOR GFR 1.29 MG/DL (0.55-1.30); GLOMERULAR FILTRATION RATE 43.2 (>39); POTASSIUM SERUM 4.5 MEQ/L (3.5-5.1)
== END ==
LOC: M LABDRAWC 15:39
PROVIDERS: ATTEND Physician Assistant
DX: I50.32 Chronic diastolic (congestive) heart failure (principal)

== ENCOUNTER → 2020-06-10 | Outpatient (CLI) | payer MEDICARE ==
[~2020-06-10] MED LIST changes: +ISOVUE-370 76% 100ML VIAL As Ordered ONE
--- NOTE | 2020-06-10 12:25 | REPVR ---
PROCEDURE INFORMATION: Exam: CT Angiography Neck With Contrast Exam date and time: 06/10/2020 12:00 PM Age: 75 years old Clinical indication: Condition or disease; Aneurysm, cerebral TECHNIQUE: Imaging protocol: Computed tomography angiography of the neck with intravenous contrast. 3D rendering (Not supervised by radiologist): MIP and/or 3D reconstructed images were created by the technologist. Radiation optimization: All CT scans at this facility use at least one of these dose optimization techniques: automated exposure control; mA and/or kV adjustment per patient size (includes targeted exams where dose is matched to clinical indication); or iterative reconstruction. Contrast material: ISOVUE 370; Contrast volume: 75 ml; Contrast route: INTRAVENOUS (IV); COMPARISON: No relevant prior studies available. FINDINGS: Right common carotid artery: No stenosis. No dissection or occlusion. Right internal carotid artery: There are coarse calcific atherosclerotic changes of the right carotid bulb. There is 50% stenosis of the right proximal internal carotid artery. Right external carotid artery: No occlusion or stenosis of the origin. Right vertebral artery: No stenosis. No dissection or occlusion. Left common carotid artery: No stenosis. No dissection or occlusion. Left internal carotid artery: There are coarse calcific atherosclerotic changes of the left carotid bulb. There is 30% stenosis at the origin of the left internal carotid artery. Left external carotid artery: There is moderate stenosis of the left external carotid artery. Left vertebral artery: No stenosis. No dissection or occlusion. Bones/joints: No acute fracture. There is multilevel degenerative disc disease and spondylosis. Soft tissues: Normal. No significant soft tissue swelling. IMPRESSION: 1. 50% stenosis of the right proximal internal carotid artery approximately 1 cm from the origin. 2. 30% stenosis at the origin of the left internal carotid artery. REFERENCES: NASCET CRITERIA. The degree of internal carotid artery stenosis is based on NASCET criteria. Normal is no stenosis. Mild is less than 50% stenosis. Moderate is 50-69% stenosis. Severe is 70% to 99% stenosis. Total occlusion is no detectable patent lumen. Electronically signed by: Quyen Gonzalez On 06/10/2020 12:25:37 PM
--- NOTE | 2020-06-10 12:39 | REPVR ---
PROCEDURE INFORMATION: Exam: CT Angiography Head With Contrast Exam date and time: 06/10/2020 12:00 PM Age: 75 years old Clinical indication: Condition or disease; Aneurysm, cerebral; Additional info: Cerb aneursym TECHNIQUE: Imaging protocol: Computed tomography angiography of the head with intravenous contrast. 3D rendering (Not supervised by radiologist): MIP and/or 3D reconstructed images were created by the technologist. Radiation optimization: All CT scans at this facility use at least one of these dose optimization techniques: automated exposure control; mA and/or kV adjustment per patient size (includes targeted exams where dose is matched to clinical indication); or iterative reconstruction. Contrast material: ISOVUE 370; Contrast volume: 75 ml; Contrast route: INTRAVENOUS (IV); COMPARISON: MRA BRAIN W/O CONTRAST 11/04/2019 6:26 PM FINDINGS: ANTERIOR CIRCULATION: Right internal carotid artery: There are coarse calcific atherosclerotic changes of the right carotid siphon. There is moderate clinoid/supraclinoid right internal carotid stenosis. Right middle cerebral artery: Unremarkable. No occlusion or significant stenosis. No aneurysm. Right anterior cerebral artery: Unremarkable. No occlusion or significant stenosis. No aneurysm. Left internal carotid artery: There are coarse calcific atherosclerotic changes of the left carotid bulb. There is moderate cavernous, severe clinoid and moderate supraclinoid left internal carotid stenosis. Left middle cerebral artery: Unremarkable. No occlusion or significant stenosis. No aneurysm. Left anterior cerebral artery: Unremarkable. No occlusion or significant stenosis. No aneurysm. POSTERIOR CIRCULATION: Right vertebral artery: Unremarkable. No occlusion or significant stenosis. No aneurysm. Left vertebral artery: Unremarkable. No occlusion or significant stenosis. No aneurysm. Basilar artery: Unremarkable. No occlusion or significant stenosis. No aneurysm. Right posterior cerebral artery: There is a origin of the right posterior cerebral artery. Left posterior cerebral artery: Unremarkable. No occlusion or significant stenosis. No aneurysm. Brain: No definite mass, mass effect, or midline shift. Cerebral ventricles: No ventriculomegaly. Paranasal sinuses: There is opacification of the right maxillary sinus. Multilevel disc findings: There are 2 left M1/M2 junction aneurysms measuring 2 and 3 mm, respectively, likely unchanged as compared to preceding examination. Bones/joints: Unremarkable. No acute fracture. Soft tissues: Unremarkable. IMPRESSION: 1. Stable left M1/M2 junction aneurysm some measuring 2 and 3 mm, respectively. 2. Stable severe left clinoid internal carotid stenosis. Additional moderate multifocal carotid siphon stenosis bilaterally. Electronically signed by: Quyen Gonzalez On 06/10/2020 12:39:35 PM
== END ==
LOC: M RAD 11:03
PROVIDERS: ATTEND Neurological Surgery
DX: I67.1 Cerebral aneurysm, nonruptured (principal); I77.1 Stricture of artery
CPT/HCPCS: 70496; 70498; 99495; Q9967

== ENCOUNTER → 2020-07-30 | Outpatient (CLI) | payer MEDICARE ==
[~2020-07-30] MED LIST changes: -ISOVUE-370 76% 100ML VIAL As Ordered ONE
--- NOTE | 2020-07-30 17:01 | REP ---
INDICATION: CHRONIC KIDNEY DISEASE, STAGE 3B. COMPARISON: None. TECHNIQUE: Real-time sonographic evaluation of the kidneys is performed. FINDINGS: Renal cortical echogenicity pattern is normal bilaterally and contours are smooth. There is no evidence of hydronephrosis, cyst, mass, or calculus in either kidney. The right kidney measures 9.1 x 4.6 x 4.9 cm. Left renal dimensions are 9.2 x 5.9 x 5.0 cm. The urinary bladder is unremarkable. Ureteral jets are visualized in the urinary bladder bilaterally with Doppler color evaluation. IMPRESSION: Negative renal ultrasound. <Electronically signed by Jovanny Zamora > 07/30/20 6260
== END ==
LOC: M RAD 15:22
PROVIDERS: ATTEND Internal Medicine Nephrology
DX: N18.32 Chronic kidney disease, stage 3b (principal)

== ENCOUNTER → 2020-08-12 | Outpatient (CLI) | payer MEDICARE ==
--- NOTE | 2020-08-12 17:04 | REP ---
INDICATION: CLAUDICATION 01/02/2020 COMPARISON: None. TECHNIQUE: Real time zamora scale and color Doppler evaluation of the bilateral lower extremity arterial vasculature using linear high frequency transducer. FINDINGS: Zamora scale and color images demonstrate significant bilateral calcified atheromatous plaquing. Right lower extremity demonstrates biphasic arterial wave patterns with 1.6:1 stenosis at the popliteal artery. The left lower extremity demonstrates biphasic wave patterns with the exception of monophasic pattern at the posterior tibial artery along with 2.2:1 stenosis at the profundus, 2.0:1 stenosis at the mid superficial femoral artery, and 1.8:1 stenosis at the tibioperoneal trunk and proximal posterior tibial artery. Peak systolic velocities (cm/sec) Common femoral artery: Right 143; Left 184 Profunda femoris: Right 178; Left 402 SFA (proximal): Right 139-159; Left 150 SFA (mid): Right 106; Left 106-214 SFA (distal): Right 106; Left 130 Popliteal artery: Right 85-140; Left 78-175 ALEX (prox.): Right 56; Left 64 Tibioperoneal trunk: Right 57; Left 72-130 ORNITHOLOGY TEACHER (prox.): Right 59; Left 114-206 ORNITHOLOGY TEACHER (distal): Right 48; Left 27 ALEX (distal): Right 38; Left 38 IMPRESSION: Extensive bilateral calcified atheromatous plaquing with areas of stenosis as described above. Findings have minimally progressed since prior examination. <Electronically signed by Partha Palacios > 08/12/20 1700
== END ==
LOC: M RAD 15:31
PROVIDERS: ATTEND Physician Assistant
DX: I70.213 Atherosclerosis of native arteries of extremities with intermittent claudication, bilateral legs (principal)

== ENCOUNTER 2020-09-26 01:37 | Emergency (ER) | payer MEDICARE ==
[2020-09-26 02:21] LABS: BASO % 0.2 % (0.0-1.0); EOS # 0.1 10^3/uL (0.0-0.5); EOS % 1.1 % (0.0-3.0); HEMATOCRIT 31.9 % (36.0-47.0); HEMOGLOBIN 10.2 g/dl (12.0-15.5); LYMPH # 1.2 10^3/uL (1.5-5.0); MEAN CORPUSCULAR HEMOGLOBIN 28.8 pg (27.0-33.0); MEAN CORPUSCULAR VOLUME 90.1 fl (80.0-96.0); MONO # 0.4 10^3/uL (0.0-0.8); MONO % 7.5 % (2.0-8.0); NEUTROPHILS # 3.9 10^3/uL (1.5-8.5); NEUTROPHILS % 69.8 % (36.0-66.0); PLATELET COUNT, AUTOMATED 190 10^3/uL (150-450); RED BLOOD COUNT 3.54 10^6/uL (4.00-5.40); WHITE BLOOD COUNT 5.6 10^3/uL (4.0-10.0)
[2020-09-26 03:01] LABS: CALCIUM LEVEL 8.8 MG/DL (8.8-10.2); CREATININE FOR GFR 1.09 MG/DL (0.55-1.30); GLOMERULAR FILTRATION RATE 52.4 (>39); POTASSIUM SERUM 3.9 MEQ/L (3.5-5.1)
[2020-09-26] MEDS ORDERED: ASPIRIN 81 MG CHEW TABLET PO ONE (03:45)
[2020-09-26] MEDS ORDERED: NITROGLYCERIN 0.4 MG SUBL TABLET SL PRN (03:45)
--- NOTE | 2020-09-26 04:43 | REPVR ---
PROCEDURE INFORMATION: Exam: XR Chest Exam date and time: 09/26/2020 3:50 AM Age: 75 years old Clinical indication: Other: Chest pain TECHNIQUE: Imaging protocol: XR of the chest. Views: 1 view. COMPARISON: [facility] PORTABLE CHEST X-RAY 05/28/2020 1:02 PM FINDINGS: Lungs: There is a 6 mm left mid lung zone nodule. There is a 4 mm right lung base calcified granuloma. Pleural spaces: Unremarkable. No pleural effusion. No pneumothorax. Heart/Mediastinum: Unremarkable. No cardiomegaly. Vasculature: There is aortic knob calcifications. Bones/joints: There is AC joint degenerative and mild shoulder joints degenerative changes. IMPRESSION: 1. No focal consolidation. 2. 6 mm left mid lung zone nodule. Correlation with CT of the chest is suggested on a nonemergent basis. Electronically signed by: Edmund Wilson On 09/26/2020 04:43:15 AM
[2020-09-26 08:15] VITALS: BP 136/65
--- NOTE | 2020-09-26 19:23 | ECGEPIP ---
[facility] - ED Test Date: 2020-09-26 Pat Name: MIREILLE RODAS Department: Room: - Gender: Female Rehabilitation Therapy Aide: ed : 1945 Requested By: FIOR Noriega Order Number: [id number] Reading MD: Ariel Robles Measurements Intervals [place] Rate: 98 P: 61 WA: 162 QRS: 1 QRSD: 88 T: 87 QT: 360 QTc: 459 Interpretive Statements Normal sinus rhythm Inferior infarct , age undetermined Anteroseptal infarct , age undetermined Nonspecific ST T wave changes Prolonged QTc cw 05/28/[address] T wave changes Electronically Signed on 09-26-2020 19:23:19 EDT by Ariel Robles
--- NOTE | 2020-09-26 19:40 | ED PDOC ---
Post-Departure Follow-Up certified letter sent to pt re formal read of cxr. needs pcp follow up. obtain p cp name and fax for fu mlg. if no pcp refer to [facility] and fax mlg Ariel Robles MD Sep 26, 2020 19:40
== END 2020-09-26 08:55 | disposition home or self-care (01) ==
LOC: M ED 01:37
DX: R07.9 Chest pain, unspecified (principal); R91.1 Solitary pulmonary nodule; F17.200 Nicotine dependence, unspecified, uncomplicated; Z87.891 Personal history of nicotine dependence

== ENCOUNTER → 2020-11-24 | Outpatient (REF) | payer MEDICARE ==
[~2020-11-24] MED LIST changes: -DOXY100C PO; +DOXY100C3 PO
[2020-11-24 16:49] LABS: BASO % 0.7 % (0.0-1.0); EOS # 0.1 10^3/uL (0.0-0.5); EOS % 1.7 % (0.0-3.0); HEMATOCRIT 34.4 % (36.0-47.0); HEMOGLOBIN 10.9 g/dl (12.0-15.5); LYMPH # 1.1 10^3/uL (1.5-5.0); LYMPH % 18.5 % (24.0-44.0); MEAN CORPUSCULAR HEMOGLOBIN 28.3 pg (27.0-33.0); MEAN CORPUSCULAR HGB CONC 31.7 g/dl (32.0-36.5); MEAN CORPUSCULAR VOLUME 89.4 fl (80.0-96.0); MONO # 0.6 10^3/uL (0.0-0.8); MONO % 9.6 % (2.0-8.0); PLATELET COUNT, AUTOMATED 196 10^3/uL (150-450); RED BLOOD COUNT 3.85 10^6/uL (4.00-5.40); WHITE BLOOD COUNT 5.7 10^3/uL (4.0-10.0)
[2020-11-24 17:07] LABS: HEMOGLOBIN A1c 12.8 %
[2020-11-24 17:15] LABS: ALBUMIN 3.7 GM/DL (3.2-5.2); BILIRUBIN,TOTAL 0.6 MG/DL (0.2-1.0); CALCIUM LEVEL 9.3 MG/DL (8.8-10.2); CHOLESTEROL RISK RATIO 3.421 (<5); CREATININE FOR GFR 1.47 MG/DL (0.55-1.30); FREE T4 0.88 NG/DL (0.76-1.46); GLOMERULAR FILTRATION RATE 37.1 (>39); POTASSIUM SERUM 4.5 MEQ/L (3.5-5.1); THYROID STIMULATING HORMONE 3.63 uIU/ML (0.358-3.740); TOTAL PROTEIN 7.2 GM/DL (6.4-8.2)
== END ==
LOC: M SFHCCLAY 11:02
PROVIDERS: ATTEND Nurse Practitioner Family
DX: E11.59 Type 2 diabetes mellitus with other circulatory complications (principal); I50.32 Chronic diastolic (congestive) heart failure; K92.2 Gastrointestinal hemorrhage, unspecified; I65.22 Occlusion and stenosis of left carotid artery; R91.1 Solitary pulmonary nodule; I25.10 Atherosclerotic heart disease of native coronary artery without angina pectoris; K21.9 Gastro-esophageal reflux disease without esophagitis; Z79.4 Long term (current) use of insulin; Z86.19 Personal history of other infectious and parasitic diseases
CPT/HCPCS: 80053; 80061; 83036; 84439; 84443; 85025; G0463

== ENCOUNTER 2021-02-18 12:15 | Emergency (ER) | payer MEDICARE ==
[~2021-02-18] VITALS: Ht 157.5 cm; Wt 55.9 kg
--- OUTSIDE RECORDS SUMMARY | 2021-02-18 12:23 | CCD ---
Author Author [facility] Organization [facility] Address Unknown Phone Unavailable Care Team Providers Care Unit Aide Tech Name Role Phone Sloane Urrutia Unavailable PROBLEMS Type Condition ICD9-CM Code ASU63-VX Code Onset Dates Condition S tatus W/U Status Risk SNOMED Code Notes Problem Essential hypertension I10 Active confirmed 11296734 Problem C. 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 Active confirmed 10576757 Problem Pulmonary nodule R91.1 Active confirmed 786 581752 Problem Coronary artery disease invo lving [place] coronary artery of [place] heart without angina pectoris I25.10 Active confirmed 968384 5145681 Problem Hypomagnesemia E83.42 Active confirmed 32619 5004 Problem Frequent falls R29.6 Active confirmed 12965 2001 Problem 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 Active confirmed 982362767 Problem Acute congestive heart failure, unspecified heart fail ure type I50.9 Active confirmed 31758067 ALLERGIES No Known Allergies ENCOUNTERS from 1945 to 2021-02-08 Encounter Location Date Provider Diagnosis [facility] [place] [phone] [place] [phone] Jan, Sloane Urrutia IMMUNIZATIONS Vaccine Route Administration Date Status COVID-19 dose #2 given elsewhere Unspecified Unknown Mar 2020 Administered COVID-19 dose #1 given elsewhere Unspecified Unknown Jun 04, 2020 Administered Influenza 18 yrs & older Flublok IM Intramuscular Jan 13, 2021 Administered Influenza 18 yrs & older Flublok IM Intramuscular Jan 12, 2020 Administered SOCIAL HISTORY Tobacco Use: Social History Observation Description Date Details (start date - stop date) Former Smoker Sex Assigned At : Social History Observation Description Sex Assigned At Unknown Audit Question Answer Notes Total Score: 0 Interpretation: Alcohol Education Language: Question Answer Notes Languages spoken: Barbadian Sexual Hx: Question Answer Notes Had sex [...] Answer Notes Are you a: former smoker quit 1990 How long has it been since you last smoked? > 10 years updated 10/21/2020 REASON FOR REFERRAL No Information VITAL SIGNS No information MEDICATIONS Medication SIG (Take, Route, Frequency, Duration) Notes Start Da te End Date Status Aspir-Low 81 MG 1 tablet Orally Once a day Active Carafate 1 GM 1 tablet on an empty stomach Orally before meals and at bedtime Active Insulin Syringe-Needle U-100 31G X 5/16" 0.5 ML as dir ected subcutaneously bid for 90 day(s) Active Atorvastatin Calcium 80 MG 1 tablet Orally Once a day Active Ferrous Sulfate 325 (65 Fe) MG 1 tablet Orally Once a day Active Magnesium Chloride 64 MG 2 tablets Orally ONCE a day for 90 day(s) Active DULoxetine HCl 60 MG 1 capsule Orally Once a day for 90 day(s) Active Metoprolol Succinate 50 MG as directed Orally Once a day Active Dificid 200 MG 1 tablet Orally Twice a day for 10 day(s) Last d ose 01/14/21 10 Oct, 2020 Active Farxiga 5 MG 1 tablet Orally Once a day for 30 day(s) 23 S 2020 Active Furosemide 40 MG 1 tablet Orally Once a day Active FreeStyle Jaquan 14 Day [place] - as directed dx: DMm wi th labile blood sugars - for 90 day(s) Jun, Not-Taking Trandolapril 1 MG 0.5 tablet Orally Once a day Active Acetaminophen 325 MG 2 tablet as needed Orally every 4 hrs Active Gabapentin 800 MG 1 tablet Orally Once a day Active Slow Fe 142 (45 Fe) MG 1 tablet Orally Once a day for 90 day(s) Not-Taking Nitrostat 0.4 MG as directed Sublingual Active Levemir 100 UNIT/ML 26 units Subcutaneous BID Active Glucagon Emergency 1 MG as directed Injection Active Pantoprazole Sodium 40 MG 1 tablet Orally Once a day Active Brilinta 90 MG 1 tablet Orally Twice a day Active PROCEDURES No Information RESULTS No Results REASON FOR VISIT refill MEDICAL (GENERAL) HISTORY Type Description Date Medical History Diabetes with CKD and Neuropathy Medical History HTN Medical History CAD with stenting Medical History Hyperlipidemia Medical History Anxiety Medical History GERD Medical History Podiatry: Nikolas Wilde Medical History Vascular: Dr. 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 Surgical History BTL 1975 Surgical History LSO 1980 Surgical History stent placed on Right leg 2007 Surgical History Breast biopsy in each breast: negative: [facility] 2009 Surgical History Cataract: [facility] 2013 Surgical History colonoscopy: [facility]: adenomatous polyp 2014 Surgical History cardiac cath with stents: [facility] 04/2019 Surgical History Fem/pop bypass Surgical History stent placed 09/2019 Hospitalization History [facility] at [facility] 1992 Hospitalization History cardiac 04/2019 Hospitalization History [facility]- right foot ulcer 06/01/19 Hospitalization History anemia 06/30/19 Hospitalization History [facility] for 2 days for pneumonia 08/[address] [facility] for 3 days-stent placed 09/2019 Hospitalization History [facility] - Low magnesium 03/[address] [facility] - 05/21/20-05/23/2019 then [facility] as well 04/2020 Hospitalization History [facility] - UTI 09/2020 Goals Section No Information Health Concerns No Information MEDICAL EQUIPMENT No Information MENTAL STATUS No Information FUNCTIONAL STATUS No Information ASSESSMENTS No Information PLAN OF TREATMENT Medication Medication Name Sig Start Date Stop Date Metoprolol Succinate 50 MG as directed Orally Once a day Glucagon Emergency 1 MG as directed Injection Pantoprazole Sodium 40 MG 1 tablet Orally Once a day Levemir 100 UNIT/ML 26 units Subcutaneous BID Trandolapril 1 MG 0.5 tablet Orally Once a day DULoxetine HCl 60 MG 1 capsule Orally Once a day for 90 day(s) Insulin Syringe-Needle U-100 31G X 5/16" 0.5 ML as dir ected subcutaneously bid for 90 day(s) Furosemide 40 MG 1 tablet Orally Once a day Atorvastatin Calcium 80 MG 1 tablet Orally Once a day Aspir-Low 81 MG 1 tablet Orally Once a day Brilinta 90 MG 1 tablet Orally Twice a day Next Appt Details Provider Name:Sloane Urrutia, 2020-04 09:45:00 AM, [address], , [place], [address], Insurance Providers Payer Name Payer Address Payer Phone Insured Name Patient Relati onship to Insured Coverage Start Date Coverage End Date MEDICARE Part A and B [address] [facility] [address] [phone] MIREILLE RODAS [facility] [employer] [facility] CLAIM DIV [id number] [facility] [phone] MIREILLE RODAS
--- OUTSIDE RECORDS SUMMARY | 2021-02-18 12:23 | CCD ---
Author Author [facility] Organization [facility] Address Unknown Phone Unavailable Care Team Providers Care Armature Bander Name Role Phone Sloane Urrutia Unavailable PROBLEMS Type Condition ICD9-CM Code [id number] Code Onset Dates Condition S tatus W/U Status Risk SNOMED Code Notes Problem Essential hypertension I10 Active confirmed 37748214 Problem C. 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 Active confirmed 27793379 Problem Pulmonary nodule R91.1 Active confirmed 786 307831 Problem Coronary artery disease invo lving [place] coronary artery of [place] heart without angina pectoris I25.10 Active confirmed 535840 5481450 Problem Hypomagnesemia E83.42 Active confirmed 02758 5004 Problem Frequent falls R29.6 Active confirmed 72909 2001 Problem 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 Active confirmed 276984645 Problem Acute congestive heart failure, unspecified heart fail ure type I50.9 Active confirmed 38805039 ALLERGIES No Known Allergies ENCOUNTERS from 1945 to 2020-12-30 Encounter Location Date Provider Diagnosis [facility] Jasper HARRIS [phone] JASPER ALEKSANDAR [id number] Dec, Sloane Urrutia IMMUNIZATIONS Vaccine Route Administration Date Status COVID-19 dose #2 given elsewhere Unspecified Unknown Jun Administered COVID-19 dose #1 given elsewhere Unspecified [...] Education Language: Question Answer Notes Languages spoken: Khmer Sexual Hx: Question Answer Notes Had sex [...] Notes Start Da te End Date Status Glucagon Emergency 1 MG as directed Injection Active FreeStyle Jaquan 14 Day [place] - as directed dx: DMm wi th labile blood sugars - for 90 day(s) Jun, Not-Taking Dificid 200 MG 1 tablet Orally Twice a day for 10 day(s) 1 0 Oct, 2020 Active Atorvastatin Calcium 80 MG 1 tablet Orally Once a day Active Nitrostat 0.4 MG as directed Sublingual Active Carafate 1 GM 1 tablet on an empty stomach Orally before meals and at bedtime Active Trandolapril 1 MG 0.5 tablet Orally Once a day Active Gabapentin 800 MG 1 tablet Orally Once a day Active Metoprolol Succinate 50 MG as directed Orally Once a day Active Slow Fe 142 (45 Fe) MG 1 tablet Orally Once a day for 90 day(s) Not-Taking Acetaminophen 325 MG 2 tablet as needed Orally every 4 hrs Active Aspir-Low 81 MG 1 tablet Orally Once a day Active Insulin Syringe-Needle U-100 31G X 5/16" 0.5 ML as dir ected subcutaneously bid for 90 day(s) Active Furosemide 40 MG 1 tablet Orally Once a day Active Pantoprazole Sodium 40 MG 1 tablet Orally Once a day Active DULoxetine HCl 60 MG 1 capsule Orally Once a day for 90 Active Brilinta 90 MG 1 tablet Orally Twice a day Active Magnesium Chloride 64 MG 2 tablets Orally ONCE a day Active Levemir 100 UNIT/ML 24units Subcutaneous BID Active Ferrous Sulfate 325 (65 Fe) MG 1 tablet Orally Once a day Active PROCEDURES No Information RESULTS No Results REASON FOR VISIT no show MEDICAL (GENERAL) HISTORY Type Description Date Medical [...] [facility] 2013 Surgical History colonoscopy: [place]: adenomatous polyp 2014 Surgical History cardiac cath with stents: [facility] 04/2019 Surgical History Fem/pop bypass Surgical History stent placed 09/2019 Hospitalization History [place] [facility] 1992 Hospitalization History cardiac 04/2019 Hospitalization History [facility]- right foot ulcer 06/01/19 Hospitalization History anemia 06/30/19 Hospitalization History [facility] for pneumonia 08/[address] [facility] - Low magnesium 03/[address] [facility] - 05/21/20-05/23/2019 then [facility] as well 04/2020 Hospitalization History [facility] - UTI 09/2020 Goals Section No Information Health Concerns No Information MEDICAL EQUIPMENT No Information MENTAL STATUS No Information FUNCTIONAL STATUS No Information ASSESSMENTS No Information PLAN OF TREATMENT Medication Medication Name Sig Start Date Stop Date Insulin Syringe-Needle U-100 31G X 5/16" 0.5 ML as dir ected subcutaneously bid for 90 day(s) Metoprolol Succinate 50 MG as directed Orally Once a day Pantoprazole Sodium 40 MG 1 tablet Orally Once a day Levemir 100 UNIT/ML 24units Subcutaneous BID Brilinta 90 MG 1 tablet Orally Twice a day Trandolapril 1 MG 0.5 tablet Orally Once a day Aspir-Low 81 MG 1 tablet Orally Once a day Atorvastatin Calcium 80 MG 1 tablet Orally Once a day Glucagon Emergency 1 MG as directed Injection Furosemide 40 MG 1 tablet Orally Once a day Insurance Providers Payer Name Payer Address Payer Phone Insured Name Patient Relati onship to Insured Coverage Start Date Coverage End Date MEDICARE Part A and B [address] [facility] [phone] IMREILLE RODAS [facility]ALTH CARE OPTIONS [facility] CLAIM [facility] [address] [facility] [id number] MIREILLE RODAS self
--- OUTSIDE RECORDS SUMMARY | 2021-02-18 12:23 | CCD | Continuity of Care Document ---
Author Author Dulce MALHOTRA DPM Organization Unknown Address [address] [place] [address], [address] [place] [address] Phone [phone] Care Team Providers Care Picture Booker Name Role Phone Kameron Fry DO AUTM [phone] Renan MIGUELMary AUTM [phone] Problems Active Problems Provider Date Osteochondropathy Nikolas Malhotra DPM Onset: 05/16/2018 Onychomycosis Nikolas Malhotra DPM Onset: 05/16/2018 Type 2 diabetes mellitus with ulcer Nikolas Malhotra DPM Ons et: 05/16/2018 Neuropathy due to type 2 diabetes mellitus Nikolas Malhotra DPM Onset: 09/09/2020 Social History Type Date Description Comments Sex [...] 500mg Capsules Unknown Gabapentin 300mg Capsules Charlie Arnett,[place] Novolog 100Unit/ML Solution Charlie Arnett,[place] BD Pen Needle/Mini/Ultra-Fine/31G X 5mm 31G X 5 mm Misc Charlie Arnett,[place] Ranitidine HCL 150mg Tablets Charlie GuilloryD.,[place] BD Pen Needle/Mini/Ultra-Fine/31G X 5mm 31G X 5 mm Misc Cahrlie Arnett,[place] Glimepiride 4mg Tablets Charlie Arnett,[place] Trandolapril 1mg Tablets Charlie Arnett,[place] Duloxetine HCL 60mg Caps DR Jaleel Guerra M.D.,[place] Levemir 100Unit/ML Solution Charlie Arnett,[place] Metformin HCL 1000mg Tablets Charlie Arnett,[place] Gabapentin 600mg Tablets Charlie GuilloryDKannan,[place] Simvastatin 40mg Tablets Charlie Vega.DKannan,[place] Chlorthalidone 25mg Tablets Charlie Vega.DKannan,[place] Spironolactone 50mg Tablets Charlie Vega.DKannan,[place] Amoxicillin/Clavulanate Potassium 875-125mg Tablets Unknown Carvedilol 12.5mg Tablets Charlie Vega.DKannan,[place] Victoza 18mg/3ML Solution Pen-Inject Charlie Arnett,[place] Gabapentin 800mg Tablets Charlie M.DKannan,[place] Immunizations Description No Information Available Vital Signs [...] Information Available Procedures Date Code Description Status 12/24/2020 92291 Debridement Of Wound 20 SQ CM Co mpleted 12/24/2020 61406 Debridement 6-10 Nails Electric Completed 12/24/2020 66976 Paring/Cut Benign Lesion 2 To 4 Completed 10/20/2020 93296 Debridement 6-10 Nails Electric Completed 10/20/2020 05829 Paring/Cutting Benign Single Les n Completed 09/09/2020 98351 Debridement Skin/Tissue Complete d 09/02/2020 22285 Office/Outpatient Established Lo w MDM 20-29 Min Completed 09/02/2020 28880 Debridement 6-10 Nails Electric Completed 09/02/2020 98107 Debridement Skin/Tissue Complete d Medical Devices Description No Information Available Encounters Type Date Location Provider Dx Diagnosis Office Visit 09/02/2020 9:15a [place] [facility] Nikolas Malhotra DPM L03.031 Cellulitis of right toe E11.42 Type 2 diabetes mellitus wit h diabetic polyneuropathy E11.621 Type 2 diabetes mellitus wit h foot ulcer L89.892 Pressure ulcer of other site , stage 2 B35.1 Tinea unguium Assessments Date Code Description Provider 12/24/2020 E11.621 Type 2 diabetes mellitus with fo ot ulcer Nikolas Malhotra DPM 12/24/2020 L89.891 Pressure ulcer of other site, st age 3 Nikolas Malhotra DPM 12/24/2020 B35.1 Tinea unguium Nikolas Malhotra DPM 12/24/2020 E11.42 Type 2 diabetes mellitus with di abetic polyneuropathy Nikolas Malhotra DPM 12/24/2020 L84 Corns and callosities Nikolas Malhotra DPM 10/20/2020 B35.1 Tinea unguium Nikolas Malhotra DPM 10/20/2020 E11.42 Type 2 diabetes mellitus with di abetic polyneuropathy Nikolas Malhotra DPM 10/20/2020 L84 Corns and callosities Nikolas Malhotra, [facility] 09/09/2020 E11.621 Type 2 diabetes mellitus with fo ot ulcer Nikolas Malhotra, [facility] 09/09/2020 L89.892 Pressure ulcer of other site, st age 4 Nikolas Malhotra, [facility] 09/02/2020 L03.031 Cellulitis of right toe Nikolas Malhotra DPM 09/02/2020 E11.42 Type 2 diabetes mellitus with di abetic polyneuropathy Nikolas Malhotra, [facility] 09/02/2020 E11.621 Type 2 diabetes mellitus with fo ot ulcer Nikolas Malhotra DPM 09/02/2020 L89.892 Pressure ulcer of other site, age 4 Nikolas Malhotra, [facility] 09/02/2020 B35.1 Tinea unguium Nikolas Malhotra DPM Plan of Treatment Future Appointment(s):* 03/25/2021 1:15 pm - Nikolas Malhotra DPM at [facility] Functional Status Description No Information Available Mental Status Description No Information Available Referrals Description No Information Available
--- OUTSIDE RECORDS SUMMARY | 2021-02-18 12:23 | CCD | Continuity of Care Document ---
Author Author Dulce MALHOTRA DPM Organization Unknown Address [address] [place] [address], [address] [place] [address] Phone [phone] Care Team Providers Care Welder Apprentice Name Role Phone Kameron Fry DO AUTM [phone] Renan MIGUELMary AUTM [phone] Problems Active Problems Provider Date Osteochondropathy Nikolas [...] 500mg Capsules Unknown Gabapentin 300mg Capsules Charlie Arnett,[place] Novolog 100Unit/ML Solution Charlie Arnett,[place] BD Pen Needle/Mini/Ultra-Fine/31G X 5mm 31G X 5 mm Misc Charlie Arnett,[place] Ranitidine HCL 150mg Tablets Charlie GuilloryD.,[place] BD Pen Needle/Mini/Ultra-Fine/31G X 5mm 31G X 5 mm Misc Charlie Arnett,[place] Glimepiride 4mg Tablets Charlie Arnett,[place] Trandolapril 1mg Tablets Charlie Arnett,[place] Duloxetine HCL 60mg Caps DR Jaleel Guerra M.D.,[place] Levemir 100Unit/ML Solution Charlie Arnett,[place] Metformin HCL 1000mg Tablets Charlie Arnett,[place] Gabapentin 600mg Tablets Charlie GuilloryDKannan,[place] Simvastatin 40mg Tablets Charlie Vega.DKannan,[place] Chlorthalidone 25mg Tablets Charlie Vega.DKannan,[place] Spironolactone 50mg Tablets Charlie Vega.DKannan,[place] Amoxicillin/Clavulanate Potassium 875-125mg Tablets Unknown Carvedilol 12.5mg Tablets Charlie Vega.DKannan,[place] Victoza 18mg/3ML Solution Pen-Inject Charlie Arnett,[place] Gabapentin 800mg Tablets Charlie M.DKannan,[place] Immunizations Description No Information Available Vital Signs [...] Available Procedures Date Code Description Status 12/24/2020 76842 Debridement Of Wound 20 SQ CM Co mpleted 12/24/2020 95485 Debridement 6-10 Nails Electric Completed 12/24/2020 16335 Paring/Cut Benign Lesion 2 To 4 Completed 10/20/2020 62179 Debridement 6-10 Nails Electric Completed 10/20/2020 48249 Paring/Cutting Benign Single Les n Completed 09/09/2020 64285 Debridement Skin/Tissue Complete d 09/02/2020 55596 Office/Outpatient Established Lo w MDM 20-29 Min Completed 09/02/2020 46865 Debridement 6-10 Nails Electric Completed 09/02/2020 51704 Debridement Skin/Tissue Complete d Medical Devices Description No Information Available Encounters Type Date Location Provider Dx Diagnosis Office Visit 09/02/2020 9:15a [place] [facility] Nikolas Malhotra DPM L03.031 Cellulitis of [...] Malhotra DPM Plan of Treatment Future Appointment(s):* 01/07/2021 1:15 pm - Nikolas Malhotra DPM at [facility] Functional Status Description No Information Available Mental Status Description No Information Available Referrals Description No Information Available
--- OUTSIDE RECORDS SUMMARY | 2021-02-18 12:23 | CCD ---
Author Author [facility] Organization [facility] Address Unknown Phone Unavailable Care Team Providers Care Veterinary Practice Manager Name Role Phone Sloane Urrutia Unavailable PROBLEMS Type Condition ICD9-CM Code [id number] Code Onset Dates Condition S tatus W/U Status Risk SNOMED Code Notes Problem Essential hypertension I10 Active confirmed 36654307 Problem C. 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 Active confirmed 81111899 Problem Pulmonary nodule R91.1 Active confirmed 786 527757 Problem Coronary artery disease invo lving [place] coronary artery of [place] heart without angina pectoris I25.10 Active confirmed 699437 2199690 Problem Hypomagnesemia E83.42 Active confirmed 64775 5004 Problem Frequent falls R29.6 Active confirmed 52528 2001 Problem 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 Active confirmed 084751745 Problem Acute congestive heart failure, unspecified heart fail ure type I50.9 Active confirmed 73267450 ALLERGIES No Known Allergies ENCOUNTERS from 1945 to 2021-02-15 Encounter Location Date Provider Diagnosis [facility] Hilton HARRIS [phone] [place] [address] Jan, Sloane Urrutia IMMUNIZATIONS Vaccine Route Administration [...] Education Language: Question Answer Notes Languages spoken: Maldivian Sexual Hx: Question Answer Notes Had sex [...] 1 tablet Orally Once a day Active Acetaminophen 325 MG 2 tablet as needed Orally every 4 hrs Active Farxiga 5 MG 1 tablet Orally Once a day for 30 day(s) 23 S 2020 Active Pantoprazole Sodium 40 MG 1 tablet Orally Once a day Active Furosemide 40 MG 1 tablet Orally Once a day Active Atorvastatin Calcium 80 MG 1 tablet Orally Once a day Active Magnesium Chloride 64 MG 2 tablets Orally ONCE a day for 90 day(s) Active Slow Fe 142 (45 Fe) MG 1 tablet Orally Once a day for 90 day(s) Not-Taking FreeStyle Jaquan 14 Day [place] - as directed dx: DMm wi th labile blood sugars - for 90 day(s) Jun, Not-Taking Gabapentin 800 MG 1 tablet Orally Once a day Active Carafate 1 GM 1 tablet on an empty stomach Orally before meals and at bedtime Active Levemir 100 UNIT/ML 26 units Subcutaneous BID Active Metoprolol Succinate 50 MG as directed Orally Once a day Active Ferrous Sulfate 325 (65 Fe) MG 1 tablet Orally Once a day Active Dificid 200 MG 1 tablet Orally Twice a day for 10 day(s) Last d ose 01/14/21 10 Oct, 2020 Active Brilinta 90 MG 1 tablet Orally Twice a day Active Glucagon Emergency 1 MG as directed Injection Active Insulin Syringe-Needle U-100 31G X 5/16" 0.5 ML as dir ected subcutaneously bid for 90 day(s) Active DULoxetine HCl 60 MG 1 capsule Orally Once a day for 90 day(s) Active Trandolapril 1 MG 0.5 tablet Orally Once a day Active Nitrostat [...] 2014 Surgical History cardiac cath with stents: [facility] 04/2019 Surgical History Fem/pop bypass Surgical History stent placed 09/2019 [facility] Hospitalization History cardiac 04/2019 Hospitalization History [facility]- right foot ulcer 06/01/19 Hospitalization History anemia 06/30/19 Hospitalization History [facility] for 2 days for pneumonia 08/[address] [facility] days-stent placed 09/2019 Hospitalization History [facility] - Low magnesium 03/[address] [facility] [place] - 05/21/20-05/23/2019 then [facility] as well 04/2020 Hospital[facility] History [facility] - UTI 09/2020 Goals Section No Information Health Concerns No Information MEDICAL EQUIPMENT No Information MENTAL STATUS No Information FUNCTIONAL STATUS No Information ASSESSMENTS No Information PLAN OF TREATMENT Medication Medication Name Sig Start Date Stop Date Metoprolol Succinate 50 MG as directed Orally Once a day Atorvastatin Calcium 80 MG 1 tablet Orally Once a day Brilinta 90 MG 1 tablet Orally Twice a day Trandolapril 1 MG 0.5 tablet Orally Once a day Insulin Syringe-Needle U-100 31G X 5/16" 0.5 ML as dir ected subcutaneously bid for 90 day(s) Furosemide 40 MG 1 tablet Orally Once a day Levemir 100 UNIT/ML 26 units Subcutaneous BID Pantoprazole Sodium 40 MG 1 tablet Orally Once a day Aspir-Low 81 MG 1 tablet Orally Once a day Glucagon Emergency 1 MG as directed Injection Insurance Providers Payer Name Payer Address Payer Phone Insured Name Patient Relati onship to Insured Coverage Start Date Coverage End Date [facility] OPTIONS [facility] CLAIM DIV [address] [facility] [phone] MIREILLE RODAS MEDICARE Part A and B [address] [facility] [address] [phone] MIREILLE RODAS self
--- OUTSIDE RECORDS SUMMARY | 2021-02-18 12:23 | CCD ---
Author Author [facility] Organization [facility] Address Unknown Phone Unavailable Care Team Providers Care Product Assembler Name Role Phone Sloane Urrutia Unavailable PROBLEMS Type Condition ICD9-CM Code [id number] Code Onset Dates Condition S tatus W/U Status Risk SNOMED Code Notes Problem Essential hypertension I10 Active confirmed 59936988 Problem C. 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 Active confirmed 84382466 Problem Pulmonary nodule R91.1 Active confirmed 786 693722 Problem Coronary artery disease invo lving [place] coronary artery of [place] heart without angina pectoris I25.10 Active confirmed 421625 8464832 Problem Hypomagnesemia E83.42 Active confirmed 46268 5004 Problem Frequent falls R29.6 Active confirmed 41785 2001 Problem 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 Active confirmed 936589934 Problem Acute congestive heart failure, unspecified heart fail ure type I50.9 Active confirmed 73525855 ALLERGIES No Known Allergies ENCOUNTERS from 1945 to 2020-12-31 Encounter Location Date Provider Diagnosis [facility] Jasper MENDEZ [phone] JASPER ALEKSANDAR [id number] 10 Dec, 2020 Sloane Urrutia Coronary artery disease involving [place] coronary artery of [place] heart without angina pectoris I25.10 and Gastroesophageal reflux disease without esophagitis K21.9 IMMUNIZATIONS Vaccine Route Administration Date Status COVID-19 [...] Education Language: Question Answer Notes Languages spoken: Malawian Sexual Hx: Question Answer Notes Had sex [...] Notes Start Da te End Date Status Magnesium Chloride 64 MG 2 tablets Orally ONCE a day for 90 day(s) Active Dificid 200 MG 1 tablet Orally Twice a day for 10 day(s) 1 0 Oct, 2020 Active Trandolapril 1 MG 0.5 tablet Orally Once a day Active DULoxetine HCl 60 MG 1 capsule Orally Once a day for 90 Active Pantoprazole Sodium 40 MG 1 tablet Orally Once a day for 90 day(s) Active Insulin Syringe-Needle U-100 31G X 5/16" 0.5 ML as dir ected subcutaneously bid for 90 day(s) Active Atorvastatin Calcium 80 MG 1 tablet Orally Once a day for 90 day(s) Active Metoprolol Succinate 50 MG as directed Orally Once a day Active Carafate 1 GM 1 tablet on an empty stomach Orally before meals and at bedtime Active Gabapentin 800 MG 1 tablet Orally Once a day Active Ferrous Sulfate 325 (65 Fe) MG 1 tablet Orally Once a day Active Furosemide 40 MG 1 tablet Orally Once a day Active Levemir 100 UNIT/ML 24units Subcutaneous BID Active Glucagon Emergency 1 MG as directed Injection Active Acetaminophen 325 MG 2 tablet as needed Orally every 4 hrs Active FreeStyle Jaquan 14 Day [place] - as directed dx: DMm wi th labile blood sugars - for 90 day(s) Jun, Not-Taking Brilinta 90 MG 1 tablet Orally Twice a day Active Slow Fe 142 (45 Fe) MG 1 tablet Orally Once a day for 90 day(s) Not-Taking Aspir-Low 81 MG 1 tablet Orally Once a day Active Nitrostat 0.4 MG as directed Sublingual Active PROCEDURES No Information RESULTS No Results REASON FOR VISIT refill atorvastatin, pantoprazole, magnesium MEDICAL (GENERAL) HISTORY Type Description Date Medical [...] 2015 Surgical History cardiac cath with stents: [facility] 04/2019 Surgical History Fem/pop bypass Surgical History stent placed 09/2019 Hospitalization History [place] [facility] 1992 Hospitalization History cardiac 04/2019 Hospitalization History [facility]- right foot ulcer 06/01/19 Hospitalization History anemia 06/30/19 Hospitalization History [facility] for 2 days for pneumonia 08/[address] [facility] for [facility] days-stent placed 09/2019 Hospitalization History [facility] - Low magnesium 03/[address] [facility] - 05/21/20-05/23/2019 then [facility] as well 04/2020 Hospitalization History [facility] - UTI 09/2020 Goals Section No Information Health Concerns No Information MEDICAL EQUIPMENT No Information MENTAL STATUS No Information FUNCTIONAL STATUS No Information ASSESSMENTS Encounter Date Diagnosis Assessment Notes Treatment Notes Treatm ent Clinical Notes Dec, Coronary artery disease invo lving [place] coronary artery of [place] heart without angina pectoris (ICD-10 - I25.10) 10 Sep, 2021 Gastroesophageal reflux dise ase without esophagitis (ICD-10 - K21.9) PLAN OF TREATMENT Medication Medication Name Sig Start Date Stop Date Insulin Syringe-Needle U-100 31G X 5/16" 0.5 ML as dir ected subcutaneously bid for 90 day(s) Metoprolol Succinate 50 MG as directed Orally Once a day Aspir-Low 81 MG 1 tablet Orally Once a day Brilinta 90 MG 1 tablet Orally Twice a day Levemir 100 UNIT/ML 24units Subcutaneous BID Atorvastatin Calcium 80 MG 1 tablet Orally Once a day for 90 day (s) Trandolapril 1 MG 0.5 tablet Orally Once a day Glucagon Emergency 1 MG as directed Injection Furosemide 40 MG 1 tablet Orally Once a day Pantoprazole Sodium 40 MG 1 tablet Orally Once a day for 90 day( s) Magnesium Chloride 64 MG 2 tablets Orally ONCE a day for 90 day( s) Insurance Providers Payer Name Payer Address Payer Phone Insured Name Patient Relati onship to Insured Coverage Start Date Coverage End Date MEDICARE Part A and B [address] [facility] [id number] [phone] MIREILLE RODAS [facility] HEALTH CARE OPTIONS [facility] CLAIM DIV [address] [facility] [address] MIREILLE RODAS
--- OUTSIDE RECORDS SUMMARY | 2021-02-18 12:23 | CCD | Continuity of Care Document ---
Author Author Dulce MALHOTRA DPM Organization Unknown Address [address] [place] [address], [address] [place] [address] Phone [phone] Care Team Providers Care Fire Control Mechanic Name Role Phone Kameron Fry DO AUTM [phone] Renan MIGUELMary AUTM [phone] Problems Active Problems Provider Date Osteochondropathy Nikolas [...] smoking 1992. smoked for 30 years 1.5PPD Allergies and adverse reactions Description No Known Drug Allergies Medications Active [...] 500mg Capsules Unknown Gabapentin 300mg Capsules Charlie Arnett,[place] Novolog 100Unit/ML Solution Charlie Arnett,[place] BD Pen Needle/Mini/Ultra-Fine/31G X 5mm 31G X 5 mm Misc Charlie Arnett,[place] Ranitidine HCL 150mg Tablets Charlie Jeffers.,[place] BD Pen Needle/Mini/Ultra-Fine/31G X 5mm 31G X 5 mm Misc Charlie Arnett,[place] Glimepiride 4mg Tablets Charlie Arnett,[place] Trandolapril 1mg Tablets Charlie Arnett,[place] Duloxetine HCL 60mg Caps DR Jaleel Guerra M.D.,[place] Levemir 100Unit/ML Solution Charlie Arnett,[place] Metformin HCL 1000mg Tablets Charlie Arnett,[place] Gabapentin 600mg Tablets Charlie Arnett,[place] Simvastatin 40mg Tablets Charlie Vega.DKannan,[place] Chlorthalidone 25mg Tablets Charlie Vega.Isaías,[place] Spironolactone 50mg Tablets Charlie Vega.DKannan,[place] Amoxicillin/Clavulanate Potassium 875-125mg Tablets Unknown Carvedilol 12.5mg Tablets Charlie Vega.D.,[place] Victoza 18mg/3ML Solution Pen-Inject Charlie Arnett,[place] Gabapentin 800mg Tablets Charlie M.DKannan,[place] Immunizations Description No Information Available Vital Signs [...] Information Available Procedures Date Code Description Status 01/07/2021 82833 Office/Outpatient Established SF MDM 10-19 Min Completed 12/24/2020 88444 Debridement Of Wound 20 SQ CM Co mpleted 12/24/2020 15026 Debridement 6-10 Nails Electric Completed 12/24/2020 71498 Paring/Cut Benign Lesion 2 To 4 Completed 10/20/2020 92869 Debridement 6-10 Nails Electric Completed 10/20/2020 99088 Paring/Cutting Benign Single Les n Completed 09/09/2020 67419 Debridement Skin/Tissue Complete d 09/02/2020 81359 Office/Outpatient Established Lo w MDM 20-29 Min Completed 09/02/2020 12834 Debridement 6-10 Nails Electric Completed 09/02/2020 10321 Debridement Skin/Tissue Complete d Medical Devices Description No Information Available Encounters Type Date Location Provider Dx Diagnosis Office Visit 01/07/2021 1:15p [place] [facility] Nikolas Malhotra DPM E11.621 Type 2 diabetes mellitus with foot ulcer L89.891 Pressure ulcer of other site , stage 1 Office Visit 09/02/2020 9:15a [place] [facility] Nikolas Malhotra DPM L03.031 Cellulitis of right toe E11.42 Type 2 diabetes mellitus wit h diabetic polyneuropathy E11.621 Type 2 diabetes mellitus wit h foot ulcer L89.892 Pressure ulcer of other site , stage 2 B35.1 Tinea unguium Assessments Date Code Description Provider 01/07/2021 E11.621 Type 2 diabetes mellitus with fo ot ulcer Nikolas Malhotra DPM 01/07/2021 L89.891 Pressure ulcer of other site, st age 3 Nikolas Malhotra DPM 12/24/2020 E11.621 Type 2 diabetes mellitus with fo ot ulcer Nikolas Malhotra DPM 12/24/2020 L89.891 Pressure ulcer of other site, st age 3 Nikolas Malhotra DPM 12/24/2020 B35.1 Tinea unguium Nikolas Malhotra, DPM 12/24/2020 E11.42 Type 2 diabetes mellitus with di abetic polyneuropathy Nikolas Malhotra, DPM 12/24/2020 L84 Corns and callosities Nikolas Malhotra, DPM 10/20/2020 B35.1 Tinea unguium Nikolas Malhotra, DPM 10/20/2020 E11.42 Type 2 diabetes mellitus with di abetic polyneuropathy Nikolas Malhotra, DPM 10/20/2020 L84 Corns and callosities Nikolas Malhotra, DPM 09/09/2020 E11.621 Type 2 diabetes mellitus with fo ot ulcer Nikolas Malhotra, DPM 09/09/2020 L89.892 Pressure ulcer of other site, st age 4 Nikolas Malhotra, DPM 09/02/2020 L03.031 Cellulitis of right toe Nikolas Malhotra, DPM 09/02/2020 E11.42 Type 2 diabetes mellitus with di abetic polyneuropathy Nikolas Malhotra, DPM 09/02/2020 E11.621 Type 2 diabetes mellitus with fo ot ulcer Nikolas Malhotra, DPM 09/02/2020 L89.892 Pressure ulcer of other site, age 4 Nikolas Malhotra, DPM 09/02/2020 B35.1 Tinea unguium Nikolas Malhotra DPM Plan of Treatment Future Appointment(s):* 03/25/2021 1:15 pm - Nikolas Malhotra DPM at [facility] Functional Status Description No Information Available Mental Status Description No Information Available Referrals Description No Information Available
--- OUTSIDE RECORDS SUMMARY | 2021-02-18 12:23 | CCD ---
Author Author [facility] Organization [facility] Address Unknown Phone Unavailable Care Team Providers Care Assistant Fitness Manager Name Role Phone Sloane Urrutia Unavailable PROBLEMS Type Condition ICD9-CM Code [id number] Code Onset Dates Condition S tatus W/U Status Risk SNOMED Code Notes Problem Essential hypertension I10 Active confirmed 75257304 Problem C. 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 Activ e confirmed 506930255 Problem Anxiety F41.9 Active confirmed 49226571 Problem CKD (chronic kidney disease) stage 3, GFR 30-59 ml/min N18.3 Active confirmed 295289890 Problem Skin ulcer of right foot with fat layer exposed L9 7.512 Active confirmed 23080719 Problem Gastroesophageal reflux disease without esophagitis K21.9 Active confirmed 060252924 Problem Skin ulcer of toe of left foot, limited to breakdown o f skin L97.521 Active confirmed 846079310 Problem 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 Active confirmed 30363761 Problem Pulmonary nodule R91.1 Active confirmed 786 644967 Problem Coronary artery disease invo lving t[place]car[place] coronary artery of [place] heart without angina pectoris I25.10 Active confirmed 464789 3129575 Problem Hypomagnesemia E83.42 Active confirmed 75254 5004 Problem Frequent falls R29.6 Active confirmed 87868 2001 Problem 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 Active confirmed 582694585 Problem Acute congestive heart failure, unspecified heart fail ure type I50.9 Active confirmed 08111980 ALLERGIES No Known Allergies ENCOUNTERS from 1945 to 2021-01-17 Encounter Location Date Provider Diagnosis [facility] [phone] [place] [address] Dec, Sloane Urrutia Type 2 diabetes mellitus with other circ ulatory complications E11.59 ; Acute congestive heart failure, unspecified heart failure type I50.9 ; Pulmonary nodule R91.1 ; 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 ; History of Clostridioides difficile colitis Z86.19 ; Coronary artery disease involving t[place] coronary artery of [place] heart without angina pectoris I25.10 ; Gastroesophageal reflux disease without esophagitis K21.9 ; Gastrointestinal hemorrhage, unspecified gastrointestinal hemorrhage type K92.2 ; 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 and Encounter for immunization Z23 IMMUNIZATIONS Vaccine Route Administration Date Status COVID-19 [...] Education Language: Question Answer Notes Languages spoken: Tamazight Sexual Hx: Question Answer Notes Had sex [...] FOR REFERRAL No Information VITAL SIGNS Weight 123.4 lbs Dec, Weight-kg 55.97 kg Dec, Height 60 in Dec, BMI 24.10 kg/m2 Dec, Heart Rate 73 /min Dec, Respiratory Rate 20 /min Dec, Temperature 98.7 degrees Fahrenheit Dec, Oximetry 100 Dec, Blood pressure systolic 126 mm Hg Dec, Blood pressure diastolic 58 mm Hg Dec, MEDICATIONS Medication SIG (Take, Route, Frequency, Duration) Notes Start Da te End Date Status Carafate 1 GM 1 tablet on an empty stomach Orally before meals and at bedtime Active Brilinta 90 MG 1 tablet Orally Twice a day Active Ferrous Sulfate 325 (65 Fe) MG 1 tablet Orally Once a day Active Slow Fe 142 (45 Fe) MG 1 tablet Orally Once a day for 90 day(s) Not-Taking Aspir-Low 81 MG 1 tablet Orally Once a day Active Magnesium Chloride 64 MG 2 tablets Orally ONCE a day for 90 day(s) Active Insulin Syringe-Needle U-100 31G X 5/16" 0.5 ML as dir ected subcutaneously bid for 90 day(s) Active Metoprolol Succinate 50 MG as directed Orally Once a day Active Dificid 200 MG 1 tablet Orally Twice a day for 10 day(s) Last d ose 01/14/21 Oct, Active Farxiga 5 MG 1 tablet Orally Once a day for 30 day(s) 23 S 2020 Active FreeStyle Jaquan 14 Day [place] - as directed dx: DMm wi th labile blood sugars - for 90 day(s) Jun, Not-Taking Atorvastatin Calcium 80 MG 1 tablet Orally Once a day Active Trandolapril 1 MG 0.5 tablet Orally Once a day Active Nitrostat 0.4 MG as directed Sublingual Active Gabapentin 800 MG 1 tablet Orally Once a day Active Pantoprazole Sodium 40 MG 1 tablet Orally Once a day Active Furosemide 40 MG 1 tablet Orally Once a day Active Levemir 100 UNIT/ML 26 units Subcutaneous BID Active Glucagon Emergency 1 MG as directed Injection Active DULoxetine HCl 60 MG 1 capsule Orally Once a day for 90 Active Acetaminophen 325 MG 2 tablet as needed Orally every 4 hrs Active PROCEDURES from 1945 to 2021-01-17 Procedure Date Ordered Result Body Site Imm: Flublok Quadrivalent 18 years & older 0.5mL IM Influenza 11-01-23 N/A RESULTS No Results REASON FOR VISIT 4 to 6 week follow up MEDICAL (GENERAL) HISTORY Type Description Date Medical History Diabetes with CKD and Neuropathy Medical History HTN Medical History CAD with stenting Medical History Hyperlipidemia Medical History Anxiety Medical History GERD Medical History Podiatry: Nikolas Wilde Medical History Vascular: Dr. 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 Surgical History BTL 1976 Surgical History LSO 1980 Surgical History stent placed on Right leg 2007 Surgical History Breast biopsy in each breast: negative: [facility] 2009 Surgical History Cataract: [facility] 2013 Surgical History colonoscopy: [facility]: adenomatous polyp 2014 Surgical History cardiac cath with stents: [facility] 04/2019 Surgical History Fem/pop bypass Surgical History stent placed 09/2019 Hospitalization History [place] at [facility] 1992 Hospitalization History cardiac 04/2019 Hospitalization History [facility]- right foot ulcer 06/01/19 Hospitalization History anemia 06/30/19 Hospitalization History [facility] for 2 days for pneumonia 08/[address] [facility] for 3 days-stent placed 09/2019 Hospitalization History [facility] - Low magnesium 03/[address] [facility] - 05/21/20-05/23/2019 then [facility] as well 04/2020 Hospitalization History [facility] - UTI 09/2020 Goals Section No Information Health Concerns No Information MEDICAL EQUIPMENT No Information MENTAL STATUS No Information FUNCTIONAL STATUS No Information ASSESSMENTS Encounter Date Diagnosis Assessment Notes Treatment Notes Treatm ent Clinical Notes Dec, Type 2 diabetes mellitus wit h other circulatory complications (ICD- 10 - E11.59) Dec, Acute congestive heart failu re, unspecified heart failure type (ICD-10 - I50.9) Medications per cardiology Dec, Pulmonary nodule (ICD-10 - R91.1) CT chest ordered Dec, 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 Dec, Coronary artery disease invo lving [place] coronary artery of [place] heart without angina pectoris (ICD-10 - I25.10) Continue medications per cardiology recommendations if patient starts Farxiga she may need a dose reduction of her furosemide to to her cardiology provider Dec, Gastroesophageal reflux dise ase without esophagitis (ICD-10 - K21.9) Symptoms stable Dec, Gastrointestinal hemorrhage, unspecified gastrointestinal hemorrhage type (ICD-10 - K92.2) Continue PPI long-term Dec, Stenosis of left internal carotid artery (ICD-10 - I65.22) No surgical intervention at this time we will continue to monitor Dec, Encounter for immunization (ICD-10 - Z23) PLAN OF TREATMENT Medication Medication Name Sig Start Date Stop Date Metoprolol Succinate 50 MG as directed Orally Once a day Glucagon Emergency 1 MG as directed Injection Pantoprazole Sodium 40 MG 1 tablet Orally Once a day Trandolapril 1 MG 0.5 tablet Orally Once a day Levemir 100 UNIT/ML 26 units Subcutaneous BID Insulin Syringe-Needle U-100 31G X 5/16" 0.5 ML as dir ected subcutaneously bid for 90 day(s) Furosemide 40 MG 1 tablet Orally Once a day Atorvastatin Calcium 80 MG 1 tablet Orally Once a day Aspir-Low 81 MG 1 tablet Orally Once a day Brilinta 90 MG 1 tablet Orally Twice a day Treatment Notes Assessment Notes Clinical Notes Acute congestive heart failure, unspecified heart failure ty pe Medications per cardiology Pulmonary nodule CT chest ordered History of Clostridioides difficile colitis She is to finish her her vancomycin taper. Coronary artery disease involving t[place] coronary artery of [place] heart without angina pectoris Continue medications per car diology recommendations if patient starts she may need a dose reduction of her furosemide to to her cardiology provider Gastroesophageal reflux disease without esophagitis Symptoms stable Gastrointestinal hemorrhage, unspecified gastrointestinal he morrhage type Continue PPI long-term Stenosis of left internal carotid artery No surgical intervention at this time we will continue to monitor Future Test Test Name Order Date Basic Metabolic Profile (BMP) [id number] Next Appt Details 4 Weeks, recheck sugars/labs Reason: Provider Name:Sloane Urrutia, 2020-04 09:45:00 AM, [address] [facility], , [place], [address], Insurance Providers Payer Name Payer Address Payer Phone Insured Name Patient Relati onship to Insured Coverage Start Date Coverage End Date [employer] [facility] CLAIM DIV [address] [facility] [address] MIREILLE RODAS MEDICARE Part A and B [address] [facility] [phone] [phone] MIREILLE RODAS self
--- OUTSIDE RECORDS SUMMARY | 2021-02-18 12:24 | CCD ---
Author Author [facility] Organization [facility] Address Unknown Phone Unavailable Care Team Providers Care Retail Department Supervisor Name Role Phone Sloane Urrutia Unavailable PROBLEMS Type Condition ICD9-CM Code [id number] Code Onset Dates Condition S tatus W/U Status Risk SNOMED Code Notes Problem Essential hypertension I10 Active confirmed 29262989 Problem C. 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 Active confirmed 49552699 Problem Pulmonary nodule R91.1 Active confirmed 786 369831 Problem Coronary artery disease invo lving inupiat coronary artery of inupiat heart without angina pectoris I25.10 Active confirmed 309589 0247590 Problem Hypomagnesemia E83.42 Active confirmed 43636 5004 Problem Frequent falls R29.6 Active confirmed 69002 2001 Problem 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 Active confirmed 275814633 Problem Acute congestive heart failure, unspecified heart fail ure type I50.9 Active confirmed 92118901 ALLERGIES No Known Allergies ENCOUNTERS from 1945 to 2020-11-29 Encounter Location Date Provider Diagnosis [facility] Hilton [address]IS [phone] [place] [address] Nov, Sloane Urrutia Type 2 diabetes mellitus with other circ ulatory complications E11.59 ; Acute congestive heart failure, unspecified heart failure type I50.9 ; Pulmonary nodule R91.1 ; detention (current) use of insulin Z79.4 ; History of Clostridioides difficile colitis Z86.19 ; Coronary artery disease involving inupiat coronary artery of inupiat heart without angina pectoris I25.10 ; Gastroesophageal reflux disease without esophagitis K21.9 ; Gastrointestinal hemorrhage, unspecified gastrointestinal hemorrhage type K92.2 and 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 IMMUNIZATIONS Vaccine Route Administration Date Status COVID-19 [...] Education Language: Question Answer Notes Languages spoken: Moroccan Sexual Hx: Question Answer Notes Had sex [...] FOR REFERRAL No Information VITAL SIGNS Weight 131.4 lbs Nov, Weight-kg 59.6 kg Nov, Height 60 in Nov, BMI 25.66 kg/m2 Nov, Heart Rate 76 /min Nov, Respiratory Rate 18 /min Nov, Temperature 98.6 degrees Fahrenheit Nov, Oximetry 98 Nov, Blood pressure systolic 102 mm Hg Nov, Blood pressure diastolic 58 mm Hg 04 Aug, 2021 MEDICATIONS Medication SIG (Take, Route, Frequency, Duration) Notes Start Da te End Date Status DULoxetine HCl 60 MG 1 capsule Orally Once a day for 90 Active Acetaminophen 325 MG 2 tablet as needed Orally every 4 hrs Active FreeStyle Jaquan 14 Day [place] - as directed dx: DMm wi th labile blood sugars - for 90 day(s) Jun, Not-Taking Gabapentin 800 MG 1 tablet Orally Once a day Active Ferrous Sulfate 325 (65 Fe) MG 1 tablet Orally Once a day Active Magnesium Chloride 64 MG 2 tablets Orally ONCE a day Active Nitrostat 0.4 MG as directed Sublingual Active Atorvastatin Calcium 80 MG 1 tablet Orally Once a day Active Levemir 100 UNIT/ML 24units Subcutaneous BID Active Trandolapril 1 MG 0.5 tablet Orally Once a day Active Furosemide 40 MG 1 tablet Orally Once a day Active Insulin Syringe-Needle U-100 31G X 5/16" 0.5 ML as dir ected subcutaneously bid for 90 day(s) Active Pantoprazole Sodium 40 MG 1 tablet Orally Once a day Active Brilinta 90 MG 1 tablet Orally Twice a day Active Glucagon Emergency 1 MG as directed Injection Active Carafate 1 GM 1 tablet on an empty stomach Orally before meals and at bedtime Active Dificid 200 MG 1 tablet Orally Twice a day for 10 day(s) 1 Oct, 2020 Active Metoprolol Succinate 50 MG as directed Orally Once a day Active Slow Fe 142 (45 Fe) MG 1 tablet Orally Once a day for 90 day(s) Not-Taking Aspir-Low 81 MG 1 tablet Orally Once a day Active PROCEDURES No Information RESULTS Component Value Reference Range CBC with Differential Reviewed date:11/29/2020 07:13:47 Interpretation:Normal Performing Lab:[facility], [facility] [address] [address] , ,[place] [address] WHITE BLOOD COUNT 5.7 4.0-10.0 RED BLOOD COUNT 3.85 4.00-5.40 HEMOGLOBIN 10.9 12.0-15.5 HEMATOCRIT 34.4 36.0-47.0 MEAN CORPUSCULAR VOLUME 89.4 80.0-96.0 MEAN CORPUSCULAR HEMOGLOBIN 28.3 27.0-33.0 MEAN CORPUSCULAR HGB CONC 31.7 32.0-36.5 RED CELL DISTRIBUTION WIDTH 13.4 11.5-14.5 PLATELET COUNT, AUTOMATED 196 150-450 NEUTROPHILS % 69.0 36.0-66.0 LYMPH % 18.5 24.0-44.0 MONO % 9.6 2.0-8.0 EOS % 1.7 0.0-3.0 BASO % 0.7 0.0-1.0 NEUTROPHILS # 4.0 1.5-8.5 LYMPH # 1.1 1.5-5.0 MONO # 0.6 0.0-0.8 EOS # 0.1 0.0-0.5 BASO # 0.0 0.0-0.2 Comprehensive Metabolic Profile (CMP) Reviewed date:11/29/2020 07:13:47 Interpretation:Abnormal Performing Lab:[facility] [address] [place] [address] , ,[facility] GLUCOSE, FASTING 479 70-100 BLOOD UREA NITROGEN 27 7-18 CREATININE FOR GFR 1.47 0.55-1.30 GLOMERULAR FILTRATION RATE 37.1 >39 SODIUM LEVEL 131 136-145 POTASSIUM SERUM 4.5 3.5-5.1 CHLORIDE LEVEL 92 98-107 CARBON DIOXIDE LEVEL 31 21-32 CALCIUM LEVEL 9.3 8.8-10.2 AST/SGOT 26 7-37 ALT/SGPT 37 12-78 ALKALINE PHOSPHATASE 100 45-117 BILIRUBIN,TOTAL 0.6 0.2-1.0 TOTAL PROTEIN 7.2 6.4-8.2 ALBUMIN 3.7 3.2-5.2 ALBUMIN/GLOBULIN RATIO 1.1 1.2-2.2 FREE T4 & TSH PANEL Reviewed date:11/29/2020 07:13:47 Interpretation:Normal Performing Lab:[facility] [address] [address] , ,[facility] THYROID STIMULATING HORMONE 3.630 0.358-3.740 FREE T4 0.88 0.76-1.46 HEMOGLOBIN A1c Reviewed date:11/29/2020 07:13:47 Interpretation:Abnormal Performing Lab:[facility] [address] [address] , ,[place] [address] HEMOGLOBIN A1c 12.8 ESTIMATED AVERAGE GLUCOSE 321 60-110 LIPID PANEL (CARDIAC RISK) Reviewed date:11/29/2020 07:13:47 Interpretation:Normal Performing Lab:[facility], [facility] [address] [address] , ,[place] [address] TRIGLYCERIDES LEVEL 394 <150 CHOLESTEROL LEVEL 130 <200 HDL CHOLESTEROL 38 >40 LDL CHOLESTEROL 13 <100 NON-HDL-C 92 CHOLESTEROL RISK RATIO 3.421 <5 REASON FOR VISIT 4 wk follow up MEDICAL (GENERAL) HISTORY Type Description [...] [facility] 2013 Surgical History colonoscopy: [facility]: adenomatous polyp 2014 Surgical History cardiac cath with stents: [facility] 04/2019 Surgical History Fem/pop bypass Surgical History stent placed 09/2019 Hospitalization History [facility] at [facility] 1992 Hospitalization History cardiac 04/2019 Hospitalization History [facility]- right foot ulcer 06/01/19 Hospitalization History anemia 06/30/19 Hospitalization History [facility] for 2 days for pneumonia 08/[address] [facility] for 3 days-stent placed 09/2019 Hospitalization History [facility] - Low magnesium 03/[address] [facility] - 05/21/20-05/23/2019 then [facility] as well 04/2020 Hospitalization History [facility] - UTI 09/2020 Goals Section No Information Health Concerns No Information MEDICAL EQUIPMENT No Information MENTAL STATUS No Information FUNCTIONAL STATUS No Information ASSESSMENTS Encounter Date Diagnosis Assessment Notes Treatment Notes Treatm ent Clinical Notes Nov, Type 2 diabetes mellitus wit h other circulatory complications (ICD- 10 - E11.59) Patient to review Farxiga addition with cardiology. Nov, Acute congestive heart failu re, unspecified heart failure type (ICD-10 - I50.9) Medications per cardiology Nov, Pulmonary nodule (ICD-10 - R91.1) CT chest ordered Nov, detention (current) use of insulin (ICD-10 - Z79 .4) Nov, History of Clostridioides difficile colitis (ICD -10 - Z86.19) She is to finish her her vancomycin taper. Nov, Coronary artery disease invo lving inupiat coronary artery of inupiat heart without angina pectoris (ICD-10 - I25.10) Continue medications per cardiology recommendations if patient starts xi she may need a dose reduction of her furosemide to to her cardiology provider Nov, Gastroesophageal reflux dise ase without esophagitis (ICD-10 - K21.9) Symptoms stable Nov, Gastrointestinal hemorrhage, unspecified gastrointestinal hemorrhage type (ICD-10 - K92.2) Continue PPI long-term Nov, Stenosis of left internal carotid artery (ICD-10 - I65.22) No surgical intervention at this time we will continue to monitor PLAN OF TREATMENT Medication Medication Name Sig Start Date Stop Date Trandolapril 1 MG 0.5 tablet Orally Once a day Metoprolol Succinate 50 MG as directed Orally Once a day Levemir 100 UNIT/ML 24units Subcutaneous BID Atorvastatin Calcium 80 MG 1 tablet Orally Once a day Aspir-Low 81 MG 1 tablet Orally Once a day Brilinta 90 MG 1 tablet Orally Twice a day Glucagon Emergency 1 MG as directed Injection Pantoprazole Sodium 40 MG 1 tablet Orally Once a day Furosemide 40 MG 1 tablet Orally Once a day Insulin Syringe-Needle U-100 31G X 5/16" 0.5 ML as dir ected subcutaneously bid for 90 day(s) Treatment Notes Assessment Notes Clinical Notes Type 2 diabetes mellitus with other circulatory complication s Patient to review [facility] addition with cardiology. Acute congestive heart failure, unspecified heart failure ty pe Medications per cardiology Pulmonary nodule CT chest ordered History of Clostridioides difficile colitis She is to finish her her vancomycin taper. Coronary artery disease involving inupiat coronary artery of inupiat heart without angina pectoris Continue medications per car diology recommendations if patient starts xiga she may need a dose reduction of her furosemide to to her cardiology provider Gastroesophageal reflux disease without esophagitis Symptoms stable Gastrointestinal hemorrhage, unspecified gastrointestinal he morrhage type Continue PPI long-term Stenosis of left internal carotid artery No surgical intervention at this time we will continue to monitor Treatment Notes Test Name Order Date [facility] CT Chest without contrast 2020-11-24 Next Appt Details 6 Weeks Reason: Provider Name:Sloane D Renan, 2021-0 12-30 09:45:00 AM, AlejandraEstephanie MENDEZ, , [place], [id number], Insurance Providers Payer Name Payer Address Payer Phone Insured Name Patient Relati onship to Insured Coverage Start Date Coverage End Date MEDICARE Part A and B [address] [facility] [id number] [phone] [facility] OPTIONS [facility] CLAIM DIV [address] [facility] [phone] MIREILLE RODAS self
--- OUTSIDE RECORDS SUMMARY | 2021-02-18 12:24 | CCD | Continuity of Care Document ---
Author Author Dulce LAGUNAS PA-C Organization Unknown Address [address] [place] [address], [place] [address] Phone [phone] Care Team Providers Care Optical Lens Manufacturing Tech Name Role Phone Reg Hernández MD AUTM [phone] Sloane Urrutia SHOTBLAST EQUIPMENT OPERATOR AUTM [phone] Didi Guzman MD AUTM [phone] Nikolas Wilde DPM AUTM [phone] Raymond Brennan MD AUTM [phone] Jael Paiz MD AUTM [phone] Jennie Barrientos RPA-C AUTM [phone] Problems Active Problems Provider Date Coronary arteriosclerosis KRISSY Duffy-C Onset: 2013 Old myocardial infarction KRISSY Duffy-C Onset: 2013 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 KRISSY Duffy-C Onset: 05/02/2013 Chronic diastolic heart failure KRISSY Duffy-C Onset: 05/02/2013 Premature beats KRISSY Duffy-C Onset: 05/02/2013 Pure hypercholesterolemia KRISSY Duffy-C Onset: 2013 Type 2 diabetes mellitus KRISSY Duffy-C Onset: 014 Acute subendocardial infarction Reg Hernández MD Onset: 05/06/2019 Patient post percutaneous transluminal coronary angiop lasty Reg Hernández MD Onset: 05/06/2019 Essential hypertension Reg Hernández MD Onset: 0 Hyperlipidemia Reg Hernández MD Onset: 05/06/2019 Acute diastolic heart failure Reg Hernández MD Onset: Electrocardiogram abnormal Reg Hernández MD Onset: 05/06 Dietary management surveillance Reg Hernández MD Onset: 05/06/2019 Carotid artery occlusion iSnai Shah KRISSY Lagunas-C Onset: 020 Peripheral vascular disease [facility] KRISSY Ramsey-Sascha Onset: 12/2019 Paroxysmal atrial fibrillation [facility] KRISSY Ramsey-Sascha Onset: 0 08/30/2020 Injury of kidney Onset: Orthostatic hypotension Onset: 0 Myocardial infarction Onset: Labyrinthitis Onset: Hypertensive emergency Onset: Hypertensive disorder Onset: Gastrointestinal hemorrhage Onset: Dizziness Onset: Foot ulcer due to type 2 diabetes mellitus Onset: Chest pain Onset: Anemia Onset: Social History Type Date Description Comments Sex Unknown ETOH Use Does not consume alcohol Tobacco Use Start: Unknown End: Unknown Patient is a former smoker up to 2ppd from age 19, quit 1992 Smoking Status Reviewed: 12/08/20 Patient is a former smoker up to 2ppd from age 19, quit 1992 Exercise Type/Frequency Walks daily Exercise Type/Frequency Does housework daily Exercise Limitations None Allergies, Adverse Reactions, Alerts Description No Known Drug Allergies Medications Active Medications SIG Qnty Indications Ordering Provide r Date Farxiga 10mg Tablets 1 by mouth every day 90tabs I25.10 Seth Gibbs MD 12/08/2020 Aspirin 81mg Tablets 1 by mouth every day Cristal Guerra DO 12/07/2020 Furosemide 80mg Tablets 1 by mouth every day Unknown 12/07/2020 Metoprolol Succinate ER 50mg Tablets ER 24HR 1 po daily 90tabs I25.10 Seth Gibbs MD I50.32 Pantoprazole Sodium 40mg Tablets D R 1 by mouth every day Unknown 05/30/2020 Levemir 100Unit/ML Solution inject sq as directed Unknown 05/30/2020 Sucralfate 1gm Tablets 4 times per day take on an empty stomach 120tabs Unknown 021 Magnesium 400mg Tablets 1 by mouth twice every day Sloane Urrutia FNP 0 Iron 325(65Fe) mg Tablets 1 by mouth every day Sloane Urrutia FNP 0 Brilinta 90mg Tablets 1 by mouth twice a day 180tabs I25.10 Seth Gibbs MD 10/29/2019 Trandolapril 1mg Tablets 1/2 by mouth every night at bedtime 45tabs I25.10 Seth Gibbs MD 2019 Nitroglycerin 0.4mg Tablets Sub 1 tab sl every 5 min times 3 doses as needed chest disc 25tabs J lang Gibbs MD 10/29/2019 Gabapentin 800mg Tablets 1 by mouth once daily Unknown 05/05/2019 Duloxetine HCL 60mg Caps DR Part 1 by mouth every day Unknown 05/05/2019 Atorvastatin Calcium 80mg Tablets 1 by mouth every night at bedtime Unknown Immunizations Description No Information Available Vital Signs Date Vital Result Comment 12/08/2020 9:27am Weight 129.00 lb Home Weight 131lb Height 64 inches 5'4" BMI (Body Mass Index) 22.1 kg/m2 08/30/2020 10:08am Weight 131.00 lb Home Weight 130lb Height 64 inches 5'4" BMI (Body Mass Index) 22.5 kg/m2 Heart Rate 72 /min Regular Respiratory Rate 16 /min BP Systolic Right Arm 126 mmHg sitting, regular c uff BP Diastolic Right Arm 76 mmHg sitting, regular cuff BP Systolic Left Arm 126 mmHg sitting BP Diastolic Left Arm 74 mmHg sitting Results Test Acquired Date Facility Test Result H/L Range Note CBC With Differential 11/24/2020 [facility] [phone] White Blood Count 5.7 10 Normal 4.0-10.0 Red Blood Count 3.85 10 Low 4.00-5.40 Hemoglobin 10.9 g/dL Low 12.0-15.5 Hematocrit 34.4 % Low 36.0-47.0 Mean Corpuscular Volume 89.4 fl Normal 80.0-96.0 Mean Corpuscular Hemoglobin 28.3 pg Normal 27.0-33.0 Mean Corpuscular HGB Conc 31.7 g/dL Low 32.0-36.5 Red Cell Distribution Width 13.4 % Normal 11.5-14.5 Platelet Count, Automated 196 10 Normal 150-450 Neutrophils % 69.0 % High 36.0-66.0 Lymph % 18.5 % Low 24.0-44.0 [place] % 9.6 % High 2.0-8.0 Eos % 1.7 % Normal 0.0-3.0 Baso % 0.7 % Normal 0.0-1.0 Immature Granulocyte % 0.5 % Normal 0-3.0 Nucleated Red Blood Cell % 0.0 % Normal 0-0 Neutrophils # 4.0 10 Normal 1.5-8.5 Lymph # 1.1 10 Low 1.5-5.0 [place] # 0.6 10 Normal 0.0-0.8 Eos # 0.1 10 Normal 0.0-0.5 Baso # 0.0 10 Normal 0.0-0.2 Hemoglobin A1c 11/24/2020 [facility] nter [phone] Hemoglobin A1c 12.8 % Normal 1 Estimated Average Glucose 321 mg/dL High 60-110 Comprehensive Metabolic Profil 11/24/2020 [facility] [phone] Glucose, Fasting 479 mg/dL Critical high 70-100 Blood Urea Nitrogen 27 mg/dL High 7-18 Creatinine For GFR 1.47 mg/dL High 0.55-1.30 Glomerular Filtration Rate 37.1 Low >39 2 Sodium Level 131 mEq/L Low 136-145 Potassium Serum 4.5 mEq/L Normal 3.5-5.1 Chloride Level 92 mEq/L Low 98-107 Carbon Dioxide Level 31 mEq/L Normal 21-32 Anion Gap 8 mEq/L Normal 8-16 Calcium Level 9.3 mg/dL Normal 8.8-10.2 Ast/Sgot 26 U/L Normal 7-37 Alt/SGPT 37 U/L Normal 12-78 Alkaline Phosphatase 100 U/L Normal 45-117 Bilirubin,Total 0.6 mg/dL Normal 0.2-1.0 Total Protein 7.2 GM/DL Normal 6.4-8.2 Albumin 3.7 GM/DL Normal 3.2-5.2 Albumin/Globulin Ratio 1.1 Low 1.2-2.2 Lipid Panel 11/24/2020 [facility] nter [phone] Triglycerides Level 394 mg/dL High <150 Cholesterol Level 130 mg/dL Normal <200 HDL Cholesterol 38 mg/dL Low >40 LDL Cholesterol 13 mg/dL Normal <100 Non-HDL-C 92 mg/dL Normal Cholesterol Risk Ratio 3.421 Normal <5 FT4&TSH Panel 11/24/2020 [facility] nter [phone] Thyroid Stimulating Hormone 3.630 uIU/ML Normal 0. 358-3.740 Free T4 0.88 ng/dL Normal 0.76-1.46 CBC without Differential 09/26/2020 [facility] - not inter faced (315)- - White Blood Count 5.6 5.0-10.0 Red Blood Count 3.54 Low 4.00-5.40 Platelets 190 172-450 Hemoglobin 10.2 Hematocrit 31.9 BMP 09/26/2020 [facility] - not interfaced (315)- - Calcium Ser/Plasma Mass/Vol 8.8 Sodium 136 Carbon Dioxide Ser/Plasm 27 Chloride Serum/Plasma 101 Potassium 3.9 Glucose 335 High 83-110 Blood Urea Nitrogen 16 7-18 Creatinine 1.09 High 0.6-1.0 G F R 52.4 1 REFERENCE RANGES: <=5.6% NORMAL 5.7-6.4% SUGGESTS IMPAIRED GLUCOSE META BOLISM/PREDIABETIC >= 6.5% ABNORMAL 2 Units are mL/min/1.73 m2 Chronic Kidney Disease Staging per NKF: Stage I & II GFR >=60 Normal to Mildly Decreased Stage III GFR 30-59 Moderately Decreased Stage IV GFR 15-29 Severely Decreased Stage V GFR <15 Very Little GFR Left ESRD GFR <15 on INSULATION INSTALLER Procedures Date Code Description Status 12/08/2020 55360 Office/Outpatient Established Lo w MDM 20-29 Min Completed 09/09/2020 32860 Chronic Care MGMT 20 Mins Clinical Staff Time Per Calendar Month Completed 08/30/2020 10901 Office/Outpatient Established Mo d MDM 30-39 Min Completed 08/30/2020 03732 ECG 12-Lead Completed 06/29/2020 30942 Chronic Care MGMT 20 Mins Clinical Staff Time Per Calendar Month Completed 06/29/2020 35521 Chronic Care Management Services Ea Addl 20 Min Completed Medical Devices Description No Information Available Encounters Type Date Location Provider Dx Diagnosis Office Visit 12/08/2020 9:30a Main Office [facility] PA-C I50.3 2 Chronic diastolic (congestive) heart failure I25.10 [facility] heart disease of [place] coronary artery w/o ang pctrs Office Visit 09/09/2020 12:52p Main Office Reg Hernández MD I25.1 0 Athscl heart disease of [place] coronary artery w/o ang pctrs I48.0 Paroxysmal atrial fibrillati on Office Visit 08/30/2020 10:15a Main Office [facility] PA-C I25.1 0 Athscl heart disease of [place] coronary artery w/o ang pctrs I25.2 Old myocardial infarction Z95.5 Presence of coronary angiopl asty implant and graft I48.0 Paroxysmal atrial fibrillati on I50.32 Chronic diastolic (congestiv e) heart failure I11.0 Hypertensive heart disease w ith heart failure I34.0 Nonrheumatic mitral (valve) insufficiency I35.1 Nonrheumatic aortic (valve) insufficiency 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 I73.9 Peripheral vascular disease, unspecified E78.5 Hyperlipidemia, unspecified Office Visit 06/29/2020 12:09p Main Office Reg Hernández MD I50.3 2 Chronic diastolic (congestive) heart failure I10 Essential (primary) hyperten aurelio I34.0 Nonrheumatic mitral (valve) insufficiency I35.1 Nonrheumatic aortic (valve) insufficiency Assessments Date Code Description Provider 12/08/2020 I50.32 Chronic diastolic (congestive) h eart failure [facility] PA-C 12/08/2020 I25.10 Atherosclerotic hear t disease of [place] coronary artery without angina pectoris [facility] PA-C 09/09/2020 I25.10 Atherosclerotic hear t disease of [place] coronary artery without angina pectoris Reg Hernández MD 09/09/2020 I48.0 Paroxysmal atrial fibrillation Leann Hernández MD 08/30/2020 I25.10 Atherosclerotic hear t disease of [place] coronary artery without angina pectoris [facility] Lag[facility] PA-C 08/30/2020 I25.2 Old myocardial infarction [facility] Lag[facility]as PA-C 08/30/2020 Z95.5 Presence of coronary angioplasty implant and graft [facility] Jamescrystal, PA-C 08/30/2020 I48.0 Paroxysmal atrial fibrillation Qian Washingtonjayme, PA-C 08/30/2020 I50.32 Chronic diastolic (congestive) h eart failure [facility] Jamescrystal, PA-C 08/30/2020 I11.0 Hypertensive heart disease with heart failure [facility] Shah Bebo, PA-C 08/30/2020 I34.0 Nonrheumatic mitral (valve) insu fficiency [facility] Jamescrystal, PA-C 08/30/2020 I35.1 Nonrheumatic aortic (valve) insu fficiency [facility] Shah Bebo, PA-C 08/30/2020 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 [facility] Shah Bebo, PA-C 08/30/2020 I73.9 Peripheral vascular disease, uns pecified [facility] Shah Bebo, PA-C 08/30/2020 E78.5 Hyperlipidemia, unspecified [facility] Shah Bebo, PA-C 06/29/2020 I50.32 Chronic diastolic (congestive) h eart failure Reg Hernández MD 06/29/2020 I10 Essential (primary) hypertension Reg Hernández MD 06/29/2020 I34.0 Nonrheumatic mitral (valve) insu fficiency Reg Hernández MD 06/29/2020 I35.1 Nonrheumatic aortic (valve) insu fficiency Reg Hernández MD Plan of Treatment Future Appointment(s):* 03/10/2021 1:00 pm - Sinaidayanna Lagunas PA-C at Main Office 12/08/2020 - [facility] PA-C* I50.32 Chronic diastolic (congestive) heart failure* New Labs:* Basic Metabolic Profile, Scheduled: 12/31/20 * Recommendations:* Follow a 2 grams sodium diet and 50 ounces fluid restriction per 24 hour and do daily weights. Call the office for weight gain of 3 lbs or more. * I25.10 Atherosclerotic heart disease of [place] coronary artery without angina pectoris* New Medication:* Farxiga 10 mg - 1 by mouth every day * New Labs:* Basic Metabolic Profile, Scheduled: 12/31/20 * Recommendations:* 1. Start taking Farxiga 10 mg one pill every morning. 2. Do lab work in about 3 weeks. * All * Follow up:* 3 month follow up. Functional Status Functional Condition Comment Date Status Independent with all ADL's Activ e Mental Status Description No Information Available Referrals Description No Information Available
--- OUTSIDE RECORDS SUMMARY | 2021-02-18 12:24 | CCD ---
Author Author [facility] Organization [facility] Address Unknown Phone Unavailable Care Team Providers Care Unit Educator Name Role Phone Sloane Urrutia Unavailable PROBLEMS Type Condition ICD9-CM Code VLL36-JR Code Onset Dates Condition S tatus W/U Status Risk SNOMED Code Notes Problem Essential hypertension I10 Active confirmed 20212755 Problem C. 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 Z79.4 Activ e confirmed 339461440 Problem Anxiety F41.9 Active confirmed 10374877 Problem CKD (chronic kidney disease) stage 3, GFR 30-59 ml/min N18.3 Active confirmed 891244640 Problem Skin ulcer of right foot with fat layer exposed L9 7.512 Active confirmed 99462189 Problem Gastroesophageal reflux disease without esophagitis K21.9 Active confirmed 711232191 Problem Skin ulcer of toe of left foot, limited to breakdown o f skin L97.521 Active confirmed 563832407 Problem 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 Active confirmed 05159460 Problem Pulmonary nodule R91.1 Active confirmed 786 867551 Problem Coronary artery disease invo lving [place] coronary artery of [place] heart without angina pectoris I25.10 Active confirmed 499024 7844164 Problem Hypomagnesemia E83.42 Active confirmed 94350 5004 Problem Frequent falls R29.6 Active confirmed 80636 2001 Problem 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 Active confirmed 579620672 Problem Acute congestive heart failure, unspecified heart fail ure type I50.9 Active confirmed 30750557 ALLERGIES No Known Allergies ENCOUNTERS from 1945 to 2020-11-29 Encounter Location Date Provider Diagnosis [facility] Jasper HARRIS [phone] JASPER ALEKSANDAR [phone] Nov, Sloane Urrutia IMMUNIZATIONS Vaccine Route Administration Date [...] Education Language: Question Answer Notes Languages spoken: Amharic Sexual Hx: Question Answer Notes Had sex [...] 4 hrs Active FreeStyle Jaquan 14 Day [place] - as directed dx: DMm wi labile blood sugars - for 90 day(s) [...] 2014 Surgical History cardiac cath with stents: [facility] 04/2019 Surgical History Fem/pop bypass Surgical History stent placed 09/2019 Hospitalization History [place] at [facility] 1992 Hospitalization History cardiac 04/2019 Hospitalization History [facility]- right foot ulcer 06/01/19 Hospitalization History anemia 06/30/19 Hospitalization History [facility] for 2 days for pneumonia 08/[address] [address] [facility] - Low magnesium 03/[address] [facility] - 05/21/20-05/23/2019 then [facility] as well 04/2020 [...] a day Insulin Syringe-Needle U-100 31G X 516" 0.5 ML as dir ected subcutaneously bid for 90 day(s) Next Appt Details Provider Name:Sloane Urrutia, 12-30 09:45:00 AM, Margie HARRIS , , [place], [address], Insurance Providers Payer Name Payer Address Payer Phone Insured Name Patient Relati onship to Insured Coverage Start Date Coverage End Date MEDICARE Part A and B [address] [facility] [phone] MIREILLE RODAS [facility] HEALTH CARE OPTIONS [facility] CLAIM DIV [address] [facility] [phone] MIREILLE RODAS self
--- OUTSIDE RECORDS SUMMARY | 2021-02-18 12:24 | CCD ---
Author Author [facility] Organization [facility] Address Unknown Phone Unavailable Care Team Providers Care Box Printing Machine Operator Name Role Phone Sloane Urrutia Unavailable PROBLEMS Type Condition ICD9-CM Code DBO79-ES Code Onset Dates Condition S tatus W/U Status Risk SNOMED Code Notes Problem Essential hypertension I10 Active confirmed 92682027 Problem C. 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 Active confirmed 93906008 Problem Pulmonary nodule R91.1 Active confirmed 786 036407 Problem Coronary artery disease invo lving [place] coronary artery of [place] heart without angina pectoris I25.10 Active confirmed 368465 7386735 Problem Hypomagnesemia E83.42 Active confirmed 14160 5004 Problem Frequent falls R29.6 Active confirmed 64737 2001 Problem 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 Active confirmed 258163236 Problem Acute congestive heart failure, unspecified heart fail ure type I50.9 Active confirmed 37303206 ALLERGIES No Known Allergies ENCOUNTERS from 1945 to 2020-12-21 Encounter Location Date Provider Diagnosis [facility] Jasper MENDEZ [phone] JASPER ALEKSANDAR [id number] Nov, Sloane Urrutia Coronary artery disease involving [place] coronary artery of [place] heart without angina pectoris I25.10 IMMUNIZATIONS Vaccine Route Administration Date Status COVID-19 [...] Education Language: Question Answer Notes Languages spoken: Ukrainian Sexual Hx: Question Answer Notes Had sex [...] 4 hrs Active FreeStyle Jaquan 14 Day [place] - as directed dx: DMm [facility] labile blood sugars - for 90 day(s) Jun, Not-Taking Glucagon Emergency 1 MG as directed Injection Active Ferrous Sulfate 325 (65 Fe) MG 1 tablet Orally Once a day Active Levemir 100 UNIT/ML 24units Subcutaneous BID Active Nitrostat 0.4 MG as directed Sublingual Active Trandolapril 1 MG 0.5 tablet Orally Once a day Active Atorvastatin Calcium 80 MG 1 tablet Orally Once a day Active Furosemide 40 MG 1 tablet Orally Once a day for 90 day(s) Active Insulin Syringe-Needle U-100 31G X 5/16" 0.5 ML as dir ected subcutaneously bid for 90 day(s) Active Gabapentin 800 MG 1 tablet Orally Once a day Active Magnesium Chloride 64 MG 2 tablets Orally ONCE a day Active Brilinta 90 MG 1 tablet Orally Twice a day Active Slow Fe 142 (45 Fe) MG 1 tablet Orally Once a day for 90 day(s) Not-Taking Carafate 1 GM 1 tablet on an empty stomach Orally before meals and at bedtime Active Dificid 200 MG 1 tablet Orally Twice a day for 10 day(s) 1 0 Oct, 2020 Active Metoprolol Succinate 50 MG as directed Orally Once a day Active Pantoprazole Sodium 40 MG 1 tablet Orally Once a day Active Aspir-Low 81 MG 1 tablet Orally Once a day Active PROCEDURES No Information RESULTS No Results REASON FOR VISIT refill furosemide MEDICAL (GENERAL) HISTORY Type Description Date Medical [...] 2009 Surgical History [facility] 2013 Surgical History colonoscopy: [facility]: adenomatous polyp 2014 Surgical History cardiac cath with stents: [facility] 04/2019 Surgical History Fem/pop bypass Surgical History stent placed 09/2019 Hospitalization History [place] at [facility] 1992 Hospitalization History cardiac 04/2019 Hospitalization History [facility]- right foot ulcer 06/01/19 Hospitalization History anemia 06/30/19 Hospitalization History [facility] for 2 days for pneumonia 08/[address] [facility]-stent placed 09/2019 Hospitalization History [facility] - Low magnesium 03/[address] [facility] - 05/21/20-05/23/2019 then [facility] as well 04/2020 Hospitalization History [facility] - UTI 09/2020 Goals Section No Information Health Concerns No Information MEDICAL EQUIPMENT No Information MENTAL STATUS No Information FUNCTIONAL STATUS No Information ASSESSMENTS Encounter Date Diagnosis Assessment Notes Treatment Notes Treatm ent Clinical Notes Nov, Coronary artery disease invo lving [place] coronary artery of [place] heart without angina pectoris (ICD-10 - I25.10) PLAN OF TREATMENT Medication Medication Name Sig Start Date Stop Date Furosemide 40 MG 1 tablet Orally Once a day for 90 day(s) Metoprolol Succinate 50 MG as directed Orally Once a day Atorvastatin Calcium 80 MG 1 tablet Orally Once a day Trandolapril 1 MG 0.5 tablet Orally Once a day Aspir-Low 81 MG 1 tablet Orally Once a day Brilinta 90 MG 1 tablet Orally Twice a day Pantoprazole Sodium 40 MG 1 tablet Orally Once a day Levemir 100 UNIT/ML 24units Subcutaneous BID Insulin Syringe-Needle U-100 31G X 5/16" 0.5 ML as dir ected subcutaneously bid for 90 day(s) Glucagon Emergency 1 MG as directed Injection Next Appt Details Provider Name:Sloane Urrutia, 12-30 09:45:00 AM, [address], , [place], [address], Insurance Providers Payer Name Payer Address Payer Phone Insured Name Patient Relati onship to Insured Coverage Start Date Coverage End Date MEDICARE Part A and B [address] [facility] [phone] MIREILLE RODAS [facility] HEALTH CARE OPTIONS [facility] CLAIM DIV [address] [facility] [address] MIREILLE RODAS
--- OUTSIDE RECORDS SUMMARY | 2021-02-18 12:24 | CCD | Continuity of Care Document ---
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 Sinai Lagunas PA-C Onset: 05/02/2013 Chronic diastolic heart failure KRISSY Duffy-C Onset: 05/02/2013 Premature beats KRISSY Duffy-C Onset: 05/02/2013 Pure hypercholesterolemia Sinai Lagunas PA-C Onset: 2013 Type 2 diabetes mellitus KRISSY [...] MD Onset: 05/06/2019 Carotid artery occlusion Sinai LagunasKRISSYGayatriSascha Onset: 020 Peripheral vascular disease Sinai LagunasKRISSYGayatriSascha Onset: 12/2019 Paroxysmal atrial fibrillation Sinai LagunasKRISSYGayatriSascha Onset: 0 08/30/2020 Injury of kidney Onset: [...] age 19, quit 1992 Smoking Status Reviewed: 08/30/20 Patient is a former smoker up to 2ppd from age 19, quit 1992 Exercise Type/Frequency Walks daily Exercise Type/Frequency Does housework daily Exercise Limitations None Allergies, Adverse Reactions, Alerts Description No Known Drug Allergies Medications Active Medications SIG Qnty Indications Ordering Provide r Date Metoprolol Succinate ER 50mg Tablets ER 24HR 1 po daily 90tabs I25.10 Seth Gibbs MD 1 I50.32 Pantoprazole Sodium 40mg Tablets D R 1 by mouth every day Unknown 05/30/2020 Sucralfate 1gm Tablets 1 by mouth four times a day Unknown 05/30/2020 Furosemide 20mg Tablets 1 by mouth every day Unknown 05/30/2020 Levemir 100Unit/ML Solution inject sq as directed Unknown 05/30/2020 Pantoprazole Sodium 40mg Tablets DR Daily 30tabs Unknown 05/30/2020 Sucralfate 1gm Tablets 4 times per day take on an empty stomach 120tabs Unknown 021 Magnesium 400mg Tablets 1 by mouth twice every day Sloane Urrutia FNP 0 Iron 325(65Fe) mg Tablets 1 by mouth every day Sloane Urrutia, [facility] 0 Trandolapril 1mg Tablets 1/2 by mouth every night at bedtime 45tabs I25.10 Seth Gibbs MD 2019 Nitroglycerin 0.4mg Tablets Sub 1 tab sl every 5 min times 3 doses as needed chest disc 25tabs J lang Gibbs MD 10/29/2019 Brilinta 90mg Tablets 1 by mouth twice a day 180tabs I25.10 Seth Gibbs MD 10/29/2019 Gabapentin 800mg Tablets 1 by mouth once daily Unknown 05/05/2019 Duloxetine HCL 60mg Caps DR Part 1 by mouth every day Unknown 05/05/2019 Atorvastatin Calcium 80mg Tablets 1 by mouth every night at bedtime Unknown Aspirin 81mg Tablets 1 by mouth every day Cristal Guerra, Furosemide 20mg Tablets Daily Unknown Levemir 100Unit/ML Solution D aily Unknown Brilinta 90mg Tablets Twice A Day Unknown Trandolapril 1mg Tablets Daily At Bedtime Unknown Immunizations Description No Information Available Vital Signs Date Vital Result Comment 08/30/2020 10:08am Weight 131.00 lb Home Weight 130lb Height 64 inches 5'4" BMI (Body Mass Index) 22.5 kg/m2 Heart Rate 72 /min Regular Respiratory Rate 16 /min BP Systolic Right Arm 126 mmHg sitting, regular c uff BP Diastolic Right Arm 76 mmHg sitting, regular cuff BP Systolic Left Arm 126 mmHg sitting BP Diastolic Left Arm 74 mmHg sitting 05/31/2020 9:31am Weight 129.00 lb Home Weight 129lb Home weight Height 64 inches 5'4" BMI (Body Mass Index) 22.1 kg/m2 Heart Rate 68 /min Regular Respiratory Rate 16 /min BP Systolic Sitting 102 mmHg Ra, regular cuff BP Diastolic Sitting 52 mmHg Ra, regular cuff BP Systolic Standing 98 mmHg Ra BP Diastolic Standing 50 mmHg Ra Results Test Acquired Date Facility Test Result H/L Range Note CBC With Differential 11/24/2020 [facility] [phone] White Blood Count 5.7 10 Normal 4.0-10.0 [...] 36.0-66.0 Lymph % 18.5 % Low 24.0-44.0 [place] % 9.6 % High 2.0-8.0 Eos % 1.7 % Normal 0.0-3.0 Baso % 0.7 % Normal 0.0-1.0 Immature Granulocyte % 0.5 % Normal 0-3.0 Nucleated Red Blood Cell % 0.0 % Normal 0-0 Neutrophils # 4.0 10 Normal 1.5-8.5 Lymph # 1.1 10 Low 1.5-5.0 [place] # 0.6 10 Normal 0.0-0.8 Eos # 0.1 10 Normal 0.0-0.5 Baso # 0.0 10 Normal 0.0-0.2 Hemoglobin A1c 11/24/2020 [facility] nter [phone] Hemoglobin A1c 12.8 % Normal 1 Estimated Average Glucose 321 mg/dL High 60-110 Comprehensive Metabolic Profil 11/24/2020 [facility] [phone] Glucose, Fasting 479 mg/dL Critical high 70-100 [...] Ratio 1.1 Low 1.2-2.2 Lipid Panel 11/24/2020 [facility] nter [phone] Triglycerides Level 394 mg/dL High <150 Cholesterol Level 130 mg/dL Normal <200 HDL Cholesterol 38 mg/dL Low >40 LDL Cholesterol 13 mg/dL Normal <100 Non-HDL-C 92 mg/dL Normal Cholesterol Risk Ratio 3.421 Normal <5 FT4&TSH Panel 11/24/2020 [facility] nter [phone] Thyroid Stimulating Hormone 3.630 uIU/ML Normal 0. 358-3.740 Free T4 0.88 ng/dL Normal 0.76-1.46 Basic Metabolic Profile 06/09/2020 [facility] [phone] Glucose, Fasting 272 mg/dL High 70-100 Blood Urea Nitrogen 29 mg/dL High 7-18 Creatinine For GFR 1.29 mg/dL Normal 0.55-1.30 Glomerular Filtration Rate 43.2 Normal >39 3 Sodium Level 134 mEq/L Low 136-145 Potassium Serum 4.5 mEq/L Normal 3.5-5.1 4 Chloride Level 96 mEq/L Low 98-107 Carbon Dioxide Level 28 mEq/L Normal 21-32 Anion Gap 10 mEq/L Normal 8-16 Calcium Level 9.5 mg/dL Normal 8.8-10.2 CBC without Differential 05/30/2020 [facility] - not inter faced (315)- - White Blood Count 5.5 4.0-10.0 Red Blood Count 3.18 Low 4.00-5.40 Platelets 232 150-450 Hemoglobin 9.4 Hematocrit 30.3 Laboratory test finding 05/30/2020 [facility] - not interf aced (315)- - Magnesium Level 2.0 1.8-2.4 CMP 05/30/2020 [facility] - not interfaced (315)- - Albumin Serum/Plasma 3.4 Alt - SGPT 20 Calcium Ser/Plasma Mass/Vol 9.2 Carbon Dioxide Ser/Plasm 28 Chloride Serum/Plasma 103 Alkaline Phosphatase 58 Potassium 4.1 Protein Total 6.6 Sodium 140 Ast - Sgot 16 BUN - Urea Nitrogen 31 Glucose 145 High 70-100 Creatinine For GFR 1.48 1 REFERENCE RANGES: <=5.6% NORMAL 5.7-6.4% SUGGESTS IMPAIRED GLUCOSE META BOLISM/PREDIABETIC >= 6.5% ABNORMAL 2 Units are mL/min/1.73 m2 Chronic Kidney Disease Staging per NKF: Stage I & II GFR >=60 Normal to Mildly Decreased Stage III GFR 30-59 Moderately Decreased Stage IV GFR 15-29 Severely Decreased Stage V GFR <15 Very Little GFR Left ESRD GFR <15 on DIRECTOR MEDIA 3 Units are mL/min/1.73 m2 Chronic Kidney Disease Staging per NKF: Stage I & II GFR >=60 Normal to Mildly Decreased Stage III GFR 30-59 Moderately Decreased Stage IV GFR 15-29 Severely Decreased Stage V GFR <15 Very Little GFR Left ESRD GFR <15 on DIRECTOR MEDIA 4 Testing was performed on a S LIGHTLY hemolyzed specimen. Suggest recollection of specimen for more accurate test results. Procedures Date Code Description Status 09/09/2020 32353 Chronic Care MGMT 20 Mins Clinical Staff Time Per Calendar Month Completed 08/30/2020 48017 Office/Outpatient Established Mo d MDM 30-39 Min Completed 08/30/2020 83308 ECG 12-Lead Completed 06/29/2020 56160 Chronic Care MGMT 20 Mins Clinical Staff Time Per Calendar Month Completed 06/29/2020 59403 Chronic Care Management Services Ea Addl 20 Min Completed 05/31/2020 45191 Office/Outpatient Established Mo d MDM 30-39 Min Completed 05/31/2020 09877 ECG 12-Lead Completed Medical Devices Description No Information Available Encounters Type Date Location Provider Dx Diagnosis Office Visit 09/09/2020 12:52p Main Office Reg Hernández MD I25.1 0 Athscl heart disease of [place] coronary artery w/o ang pctrs I48.0 Paroxysmal atrial fibrillati on Office Visit 08/30/2020 10:15a Main Office Sinai Lagunas PA-C I25.1 0 Athscl heart disease of [place] coronary artery w/o ang pctrs I25.2 Old [...] (valve) insufficiency I35.1 Nonrheumatic aortic (valve) insufficiency Office Visit 05/31/2020 9:30a Main Office Sinai Lagunas PA-C I50.3 2 Chronic diastolic (congestive) heart failure I25.10 Athscl heart disease of [place] coronary artery w/o ang pctrs Assessments Date Code Description Provider 09/09/2020 I25.10 Atherosclerotic hear t disease of [place] coronary artery without angina pectoris Reg Hernández MD 09/09/2020 I48.0 Paroxysmal atrial fibrillation Leann Hernández MD 08/30/2020 I25.10 Atherosclerotic hear t disease of [place] coronary artery without angina pectoris Sinai Lagunas PA-C 08/30/2020 I25.2 Old myocardial infarction Sinai Lagunas PA-C 08/30/2020 Z95.5 Presence of coronary angioplasty implant and graft Sinai Lagunas PA-C 08/30/2020 I48.0 Paroxysmal atrial fibrillation K thomas Lagunas PA-C 08/30/2020 I50.32 Chronic diastolic (congestive) h eart failure Sinai Lagunas PA-C 08/30/2020 I11.0 Hypertensive heart disease with heart failure Sniai Lagunas PA-C 08/30/2020 I34.0 Nonrheumatic mitral (valve) insu fficiency Sinai Lagunas PA-C 08/30/2020 I35.1 Nonrheumatic aortic (valve) insu fficiency Sinai Lagunas PA-C 08/30/2020 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 Sinai Lagunas PA-C 08/30/2020 I73.9 Peripheral vascular disease, uns pecified Sinai Lagunas PA-C 08/30/2020 E78.5 Hyperlipidemia, unspecified Sinai Lagunas PA-C 06/29/2020 I50.32 Chronic diastolic (congestive) h eart failure Reg Hernández MD 06/29/2020 I10 Essential (primary) hypertension Reg Hernández MD 06/29/2020 I34.0 Nonrheumatic mitral (valve) insu fficiency Reg Hernández MD 06/29/2020 I35.1 Nonrheumatic aortic (valve) insu fficiency Reg Hernández MD 05/31/2020 I50.32 Chronic diastolic (congestive) h eart failure Sinai Lagunas PA-C 05/31/2020 I25.10 Atherosclerotic hear t disease of [place] coronary artery without angina pectoris Sinai Lagunas PA-C Plan of Treatment Future Appointment(s):* 11/30/2020 12:30 pm - Sinai Lagunas PA-C at Main Office 08/30/2020 - Sinai Lagunas PA-C* I25.10 Atherosclerotic heart disease of [place] coronary artery without angina pectoris * I25.2 Old myocardial infarction * Z95.5 Presence of coronary angioplasty implant and graft * I48.0 Paroxysmal atrial fibrillation * I50.32 Chronic diastolic (congestive) heart failure* New Labs:* Basic Metabolic Profile, Scheduled: 11/29/20 * Recommendations:* Follow a 2 grams sodium diet and 50 ounces fluid restriction per 24 hour and do daily weights. Call the office for weight gain of 3 lbs or more. * I11.0 Hypertensive heart disease with heart failure * I34.0 Nonrheumatic mitral (valve) insufficiency * I35.1 Nonrheumatic aortic (valve) insufficiency * I65.23 Occlusion and stenosis of bilateral carotid arteries * I73.9 Peripheral vascular disease, unspecified * E78.5 Hyperlipidemia, unspecified * All * Follow up:* 3 month CV/CHF check. Request [facility] neph[facility] note and lab work. Obtain peripheral vascular doppler done at [facility] 2-3 weeks ago. Obtain last lipids from [facility]. Functional Status Functional Condition Comment Date Status Independent with all ADL's Activ e Mental Status Description No Information Available Referrals Description No Information Available
--- OUTSIDE RECORDS SUMMARY | 2021-02-18 12:24 | CCD | Continuity of Care Document ---
Author Author Dulce LAGUNAS PA-C Organization Unknown Address [address] [place] [address], [place] [address] Phone [phone] Care Team Providers Care Customer Solutions Architect Name Role Phone Reg Hernández MD AUTM [phone] Sloane Urrutia X RAY DEVELOPING MACHINE OPERATOR AUTM [phone] Didi Guzman MD AUTM [phone] Nikolas Wilde DPM AUTM [phone] Raymond Brennan MD AUTM [phone] Jael Paiz MD AUTM [phone] Jennie Barrientos RPA-C AUTM [phone] Problems Active Problems Provider Date Coronary arteriosclerosis KRISSY Duffy-C Onset: 2013 Old myocardial infarction KRISSY Duffy-C Onset: 2013 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 KRISSY Duffy-C Onset: 05/02/2013 Chronic diastolic heart failure KRISSY Duffy-C Onset: 05/02/2013 Premature beats KRISSY Duffy-C Onset: 05/02/2013 Pure hypercholesterolemia KRISSY Duffy-C Onset: 2013 Type 2 diabetes mellitus KRISSY Duffy-C Onset: 014 Acute subendocardial infarction Rge Hernández MD Onset: 05/06/2019 Patient post percutaneous transluminal coronary angiop lasty Reg Hernández MD Onset: 05/06/2019 Essential hypertension Reg Hernández MD Onset: 0 Hyperlipidemia Reg Hernández MD Onset: 05/06/2019 Acute diastolic heart failure Reg Hernández MD Onset: Electrocardiogram abnormal Reg Hernández MD Onset: 05/06 Dietary management surveillance Reg Hernández MD Onset: 05/06/2019 Carotid artery occlusion [facility] Shah KRISSY Lagunas-C Onset: 020 Peripheral vascular [...] H/L Range Note CBC With Differential 11/24/2020 [facility] [phone] White Blood Count 5.7 10 Normal 4.0-10.0 [...] 36.0-66.0 Lymph % 18.5 % Low 24.0-44.0 [place] % 9.6 % High 2.0-8.0 Eos % 1.7 % Normal 0.0-3.0 Baso % 0.7 % Normal 0.0-1.0 Immature Granulocyte % 0.5 % Normal 0-3.0 Nucleated Red Blood Cell % 0.0 % Normal 0-0 Neutrophils # 4.0 10 Normal 1.5-8.5 Lymph # 1.1 10 Low 1.5-5.0 [place] # 0.6 10 Normal 0.0-0.8 Eos # 0.1 10 Normal 0.0-0.5 Baso # 0.0 10 Normal 0.0-0.2 Hemoglobin A1c 11/24/2020 [facility] nter [phone] Hemoglobin A1c 12.8 % Normal 1 Estimated Average Glucose 321 mg/dL High 60-110 Comprehensive Metabolic Profil 11/24/2020 [facility] [phone] Glucose, Fasting 479 mg/dL Critical high 70-100 [...] Ratio 1.1 Low 1.2-2.2 Lipid Panel 11/24/2020 [facility] nter [phone] Triglycerides Level 394 mg/dL High <150 Cholesterol Level 130 mg/dL Normal <200 HDL Cholesterol 38 mg/dL Low >40 LDL Cholesterol 13 mg/dL Normal <100 Non-HDL-C 92 mg/dL Normal Cholesterol Risk Ratio 3.421 Normal <5 FT4&TSH Panel 11/24/2020 [facility] nter [phone] Thyroid Stimulating Hormone 3.630 uIU/ML Normal 0. [...] Little GFR Left ESRD GFR <15 on ANESTHETIC ASSISTANT Procedures Date Code Description Status 12/08/2020 79123 Office/Outpatient Established Lo w MDM 20-29 Min Completed 09/09/2020 23846 Chronic Care MGMT 20 Mins Clinical Staff Time Per Calendar Month Completed 08/30/2020 39030 Office/Outpatient Established Mo d MDM 30-39 Min Completed 08/30/2020 46558 ECG 12-Lead Completed 06/29/2020 02629 Chronic Care MGMT 20 Mins Clinical Staff Time Per Calendar Month Completed 06/29/2020 17291 Chronic Care Management Services Ea Addl 20 [...] MD I25.1 0 Athscl heart disease of [place] coronary artery w/o ang pctrs I48.0 Paroxysmal atrial fibrillati on Office Visit 08/30/2020 10:15a Main Office Sinai Lagunas PA-C I25.1 0 Athscl heart disease of [place] coronary artery w/o ang pctrs I25.2 Old [...] 12/08/2020 I25.10 Atherosclerotic hear t disease of [place] coronary artery without angina pectoris Sinai Lagunas PA-C 09/09/2020 I25.10 Atherosclerotic hear t disease of [place] coronary artery without angina pectoris Reg Hernández MD 09/09/2020 I48.0 Paroxysmal atrial fibrillation Leann Hernández MD 08/30/2020 I25.10 Atherosclerotic hear t disease of [place] coronary artery without angina pectoris Sinai Lagunas [...] more. * I25.10 Atherosclerotic heart disease of [place] coronary artery without angina pectoris* New Medication:* [...]
--- OUTSIDE RECORDS SUMMARY | 2021-02-18 12:24 | CCD ---
Continuity of Care Document (CCD) Created on: 12/03/2020 Dulce Gonsales External Reference #: [id number] : 1945 Sex: Female Author Organization Unknown Address Unknown Phone Unavailable Care Team Providers Care Crutcher Helper Name Role Phone Reg Hernández MD AUTM [phone] Sloane Urrutia TYPE MAPPER AUTM [phone] Didi Guzman MD AUTM [phone] Nikolas Wilde DPM AUTM [phone] Raymond Brennan MD AUTM [phone] Jael Paiz MD AUTM [phone] Jennie Barrientos RPA-C AUTM [phone] Problems Active Problems Provider Date Coronary arteriosclerosis [...] 1 by mouth every day Sloane Urrutia, [facility] 0 Trandolapril 1mg Tablets 1/2 by [...] H/L Range Note CBC With Differential 11/24/2020 [facility] [phone] White Blood Count 5.7 10 Normal 4.0-10.0 [...] 36.0-66.0 Lymph % 18.5 % Low 24.0-44.0 [place] % 9.6 % High 2.0-8.0 Eos % 1.7 % Normal 0.0-3.0 Baso % 0.7 % Normal 0.0-1.0 Immature Granulocyte % 0.5 % Normal 0-3.0 Nucleated Red Blood Cell % 0.0 % Normal 0-0 Neutrophils # 4.0 10 Normal 1.5-8.5 Lymph # 1.1 10 Low 1.5-5.0 [place] # 0.6 10 Normal 0.0-0.8 Eos # 0.1 10 Normal 0.0-0.5 Baso # 0.0 10 Normal 0.0-0.2 Hemoglobin A1c 11/24/2020 [facility] nter [phone] Hemoglobin A1c 12.8 % Normal 1 Estimated Average Glucose 321 mg/dL High 60-110 Comprehensive Metabolic Profil 11/24/2020 [facility] [phone] Glucose, Fasting 479 mg/dL Critical high 70-100 [...] Ratio 1.1 Low 1.2-2.2 Lipid Panel 11/24/2020 [facility] nter [phone] Triglycerides Level 394 mg/dL High <150 Cholesterol Level 130 mg/dL Normal <200 HDL Cholesterol 38 mg/dL Low >40 LDL Cholesterol 13 mg/dL Normal <100 Non-HDL-C 92 mg/dL Normal Cholesterol Risk Ratio 3.421 Normal <5 FT4&TSH Panel 11/24/2020 [facility] nter [phone] Thyroid Stimulating Hormone 3.630 uIU/ML Normal 0. 358-3.740 Free T4 0.88 ng/dL Normal 0.76-1.46 CBC without Differential 09/26/2020 [facility] - not inter faced (315)- - White Blood Count 5.6 5.0-10.0 Red Blood Count 3.54 Low 4.00-5.40 Platelets 190 172-450 Hemoglobin 10.2 Hematocrit 31.9 BMP 09/26/2020 [facility] - not interfaced (315)- - Calcium Ser/Plasma Mass/Vol 8.8 Sodium 136 Carbon Dioxide Ser/Plasm 27 Chloride Serum/Plasma 101 Potassium 3.9 Glucose 335 High 83-110 Blood Urea Nitrogen 16 7-18 Creatinine 1.09 High 0.6-1.0 G F R 52.4 Basic Metabolic Profile 06/09/2020 [facility] [phone] Glucose, Fasting 272 mg/dL High 70-100 Blood [...] 8-16 Calcium Level 9.5 mg/dL Normal 8.8-10.2 1 REFERENCE RANGES: <=5.6% NORMAL 5.7-6.4% SUGGESTS IMPAIRED GLUCOSE META BOLISM/PREDIABETIC >= 6.5% ABNORMAL 2 Units are mL/min/1.73 m2 Chronic Kidney Disease Staging per NKF: Stage I & II GFR >=60 Normal to Mildly Decreased Stage III GFR 30-59 Moderately Decreased Stage IV GFR 15-29 Severely Decreased Stage V GFR <15 Very Little GFR Left ESRD GFR <15 on WRITING MANAGER 3 Units are mL/min/1.73 m2 Chronic Kidney Disease Staging per NKF: Stage I & II GFR >=60 Normal to Mildly Decreased Stage III GFR 30-59 Moderately Decreased Stage IV GFR 15-29 Severely Decreased Stage V GFR <15 Very Little GFR Left ESRD GFR <15 on WRITING MANAGER 4 Testing was performed on a S LIGHTLY hemolyzed specimen. Suggest recollection of specimen for more accurate test results. Procedures Date Code Description Status 09/09/2020 20471 Chronic Care MGMT 20 Mins Clinical Staff Time Per Calendar Month Completed 08/30/2020 38769 Office/Outpatient Established Mo d MDM 30-39 Min Completed 08/30/2020 96307 ECG 12-Lead Completed 06/29/2020 02323 Chronic Care MGMT 20 Mins Clinical Staff Time Per Calendar Month Completed 06/29/2020 34772 Chronic Care Management Services Ea Addl 20 Min Completed Medical Devices Description No Information Available Encounters Type Date Location Provider Dx Diagnosis Office Visit 09/09/2020 12:52p Main Office Reg Hernández MD I25.1 0 Athscl heart disease of [place] coronary artery w/o ang pctrs I48.0 Paroxysmal atrial fibrillati on Office Visit 08/30/2020 10:15a Main Office Sinai Lagunas PA-C I25.1 0 Athscl heart disease of [place] coronary artery w/o ang pctrs I25.2 Old [...] (valve) insufficiency Assessments Date Code Description Provider 09/09/2020 I25.10 Atherosclerotic hear t disease of [place] coronary artery without angina pectoris Reg Hernández MD 09/09/2020 I48.0 Paroxysmal atrial fibrillation Leann Hernández MD 08/30/2020 I25.10 Atherosclerotic hear t disease of [place] coronary artery without angina pectoris Sinai Lagunas, MN-C 08/30/2020 I25.2 Old myocardial infarction Sinai Lagunas, MN-C 08/30/2020 Z95.5 Presence of coronary angioplasty implant and graft Sinai Lagunas MN-C 08/30/2020 I48.0 Paroxysmal atrial fibrillation Qian Lagunas, MN-C 08/30/2020 I50.32 Chronic diastolic (congestive) h eart failure Sinai Lagunas, PA-C 08/30/2020 I11.0 Hypertensive heart disease with heart failure Sinai Lagunas, PA-C 08/30/2020 I34.0 Nonrheumatic mitral (valve) insu fficiency Sinai Lagunas, MN-C 08/30/2020 I35.1 Nonrheumatic aortic (valve) insu fficiency Sinai Lagunas, MN-C 08/30/2020 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 Sinai Lagunas, PA-C 08/30/2020 I73.9 Peripheral vascular disease, uns pecified Sinai Lagunas, PA-C 08/30/2020 E78.5 Hyperlipidemia, unspecified Sinai Lagunas, PA-C 06/29/2020 I50.32 Chronic diastolic (congestive) h eart failure Reg Hernández MD 06/29/2020 I10 Essential (primary) hypertension Reg Hernández MD 06/29/2020 I34.0 Nonrheumatic mitral (valve) insu fficiency Reg Hernández MD 06/29/2020 I35.1 Nonrheumatic aortic (valve) insu fficiency Reg Hernández MD Plan of Treatment Future Appointment(s):* 12/08/2020 9:30 am - Sinai Lagunas PA-C at Main Office 08/30/2020 - Sinai Lagunas PA-C* I25.10 Atherosclerotic heart disease of [place] coronary artery without angina pectoris * I25.2 [...] Follow up:* 3 month CV/CHF check. Request July nephrology note and lab work. Obtain peripheral vascular doppler done at [facility] 2-3 weeks ago. Obtain last lipids from [facility]. Functional Status Functional Condition Comment Date Status Independent with all ADL's Activ e Mental Status Description No Information Available Referrals Description No Information Available
--- OUTSIDE RECORDS SUMMARY | 2021-02-18 12:27 | CCD ---
Author Author [facility] Organization [facility] Address Unknown Phone Unavailable Care Team Providers Care Manager Activities Name Role Phone Michelle Marcelino MD Unavailable Unavailable Michelle Marcelino MD Unavailable Unavailable Michelle Marcelino MD Unavailable Unavailable Michelle Marcelino MD Unavailable Unavailable Michelle Marcelino MD Unavailable Unavailable Dombek-Lang, V Pat MD Unavailable Unavailable Dombek-Lang, V Pat MD Unavailable Unavailable Dombek-Lang, V Pat MD Unavailable Unavailable Dombek-Lang, V Pat MD Unavailable Unavailable Dombek-Lang, V Pat MD Unavailable Unavailable Dombek-Lang, V Pat MD Unavailable Unavailable Dombek-Lang, V Pat MD Unavailable Unavailable Dombek-Lang, V Pat MD Unavailable Unavailable Dombek-Lang, V Pat MD Unavailable Unavailable Dombek-Lang, V Pat MD Unavailable Unavailable Dombek-Lang, V Pat MD Unavailable Unavailable Dombek-Lang, V Pat MD Unavailable Unavailable Dombek-Lang, V Pat MD Unavailable Unavailable Dombek-Lang, V Pat MD Unavailable Unavailable Dombek-Lang, V Pat MD Unavailable Unavailable Dombek-Lang, V Pat MD Unavailable Unavailable Dombek-Lang, V Pat MD Unavailable Unavailable Dombek-Lang, V Pat MD Unavailable Unavailable Dombek-Lang, V Pat MD Unavailable Unavailable Dombek-Lang, V Pat MD Unavailable Unavailable Dombek-Lang, V Pat MD Unavailable Unavailable Dombek-Lang, V Pat MD Unavailable Unavailable Dombek-Lang, V Pat MD Unavailable Unavailable Dombek-Lang, V Pat MD Unavailable Unavailable Dombek-Lang, V Pat MD Unavailable Unavailable Dombek-Lang, V Pat MD Unavailable Unavailable Dombek-Lang, V Pat MD Unavailable Unavailable Dombek-Lang, V Pat MD Unavailable Unavailable Dombek-Lang, V Pat MD Unavailable Unavailable Dombek-Lang, V Pat MD Unavailable Unavailable Dombek-Lang, V Pat MD Unavailable Unavailable Dombek-Lang, V Pat MD Unavailable Unavailable Dombek-Lang, V Pat MD Unavailable Unavailable Dombek-Lang, V Pat MD Unavailable [facility] Unavailable Unavailable PETROFF, VERONICA PA Unavailable Unavailable PETROFF, VERONICA PA Unavailable Unavailable PETROFF, VERONICA PA Unavailable Unavailable PETROFF, VERONICA PA Unavailable Unavailable PETROFF, VERONICA PA Unavailable Unavailable PETROFF, VERONICA PA Unavailable Unavailable PETROFF, VERONICA PA Unavailable Unavailable PETROFF, VERONICA PA Unavailable Unavailable IMANI, CARA GAUTAM PA Unavailable Unavailable IMANI, CARA GAUTAM PA Unavailable Unavailable IMANI, CARA GAUTAM PA Unavailable Unavailable IMANI, CARA GAUTAM PA Unavailable Unavailable IMANI, CARA GAUTAM PA Unavailable Unavailable IMANI, CARA GAUTAM PA Unavailable Unavailable IMANI, CARA GAUTAM PA Unavailable Unavailable IMANI, CARA GAUTAM PA Unavailable Unavailable IMANI, CARA GAUTAM PA Unavailable Unavailable IMANI, CARA GAUTAM PA Unavailable Unavailable IMANI, CARA GAUTAM PA Unavailable Unavailable IMANI, CARA GAUTAM PA Unavailable Unavailable IMANI, CARA GAUTAM PA Unavailable Unavailable IMANI, CARA GAUTAM PA Unavailable Unavailable IMANI, CARA GAUTAM PA Unavailable Unavailable IMANI, CARA GAUTAM PA Unavailable Unavailable IMANI, CARA GAUTAM PA Unavailable Unavailable IMANI, CARA GAUTAM PA Unavailable Unavailable IMANI, CARA GAUTAM PA Unavailable Unavailable IMANI, CARA GAUTAM PA Unavailable Unavailable IMANI, CARA GAUTAM PA Unavailable Unavailable IMANI, CARA GAUTAM PA Unavailable Unavailable Girish MALHOTRA DPM Unavailable Unavailable Girish MALHOTRA DPM Unavailable Unavailable Girish MALHOTRA DPM Unavailable Unavailable Girish MALHOTRA DPM Unavailable Unavailable Girish MALHOTRA DPM Unavailable Unavailable Girish MALHOTRA DPM Unavailable Unavailable Girish MALHOTRA DPM Unavailable Unavailable Girish MALHOTRA DPM Unavailable Unavailable Girish MALHOTRA DPM Unavailable Unavailable Girish MALHOTRA DPM Unavailable Unavailable Girish MALHOTRA DPM Unavailable Unavailable Girish MALHOTRA DPM Unavailable Unavailable Girish MALHOTRA DPM Unavailable Unavailable Girish MALHOTRA DPM Unavailable Unavailable Girish MALHOTRA DPM Unavailable Unavailable Girsih MALHOTRA DPM Unavailable Unavailable Girish MALHOTRA DPM Unavailable Unavailable Girish MALHOTRA DPM Unavailable Unavailable Girish MALHOTRA DPM Unavailable Unavailable Girish MALHOTRA DPM Unavailable Unavailable Girish MALHOTRA DPM Unavailable Unavailable Girish MALHOTRA DPM Unavailable Unavailable Girish MALHOTRA DPM Unavailable Unavailable Girish MALHOTRA DPM Unavailable Unavailable Girish MALHOTRA DPM Unavailable Unavailable Girish MALHOTRA DPM Unavailable Unavailable Girish MLAHOTRA DPM Unavailable Unavailable Girish MALHOTRA DPM Unavailable Unavailable Girish MALHOTRA DPM Unavailable Unavailable ROSCOE, Girish RASHID DPM Unavailable Unavailable MAJAK, Girish RASHID DPM Unavailable Unavailable Alberry, D Sloane CLIENT EXPERIENCE SPECIALIST Unavailable Unavailable Alberry, D Sloane CLIENT EXPERIENCE SPECIALIST Unavailable Unavailable Alberry, D Sloane CLIENT EXPERIENCE SPECIALIST Unavailable Unavailable Alberry, D Sloane CLIENT EXPERIENCE SPECIALIST Unavailable Unavailable Alberry, D Sloane CLIENT EXPERIENCE SPECIALIST Unavailable Unavailable Alberry, D Sloane CLIENT EXPERIENCE SPECIALIST Unavailable Unavailable Alberry, D Sloane CLIENT EXPERIENCE SPECIALIST Unavailable Unavailable Alberry, D Sloane CLIENT EXPERIENCE SPECIALIST Unavailable Unavailable Alberry, D Sloane CLIENT EXPERIENCE SPECIALIST Unavailable Unavailable Alberry, D Sloane CLIENT EXPERIENCE SPECIALIST Unavailable Unavailable Alberry, D Sloane CLIENT EXPERIENCE SPECIALIST Unavailable Unavailable Alberry, D Sloane CLIENT EXPERIENCE SPECIALIST Unavailable Unavailable Alberry, D Sloane CLIENT EXPERIENCE SPECIALIST Unavailable Unavailable Alberry, D Sloane CLIENT EXPERIENCE SPECIALIST Unavailable Unavailable Alberry, D Sloane CLIENT EXPERIENCE SPECIALIST Unavailable Unavailable Alberry, D Sloane CLIENT EXPERIENCE SPECIALIST Unavailable Unavailable Alberry, D Sloane CLIENT EXPERIENCE SPECIALIST Unavailable Unavailable Alberry, D Sloane CLIENT EXPERIENCE SPECIALIST Unavailable Unavailable Alberry, D Sloane CLIENT EXPERIENCE SPECIALIST Unavailable Unavailable Alberry, D Sloane CLIENT EXPERIENCE SPECIALIST Unavailable Unavailable Alberry, D Sloane CLIENT EXPERIENCE SPECIALIST Unavailable Unavailable Alberry, D Sloane CLIENT EXPERIENCE SPECIALIST Unavailable Unavailable Alberry, D Sloane CLIENT EXPERIENCE SPECIALIST Unavailable Unavailable Alberry, D Sloane CLIENT EXPERIENCE SPECIALIST Unavailable Unavailable Alberry, D Sloane CLIENT EXPERIENCE SPECIALIST Unavailable Unavailable Alberry, D Sloane CLIENT EXPERIENCE SPECIALIST Unavailable Unavailable Alberry, D Sloane CLIENT EXPERIENCE SPECIALIST Unavailable Unavailable Alberry, D Sloane CLIENT EXPERIENCE SPECIALIST Unavailable Unavailable Alberry, D Sloane CLIENT EXPERIENCE SPECIALIST Unavailable Unavailable Alberry, D Sloane CLIENT EXPERIENCE SPECIALIST Unavailable Unavailable Alberry, D Sloane CLIENT EXPERIENCE SPECIALIST Unavailable Unavailable Alberry, D Sloane CLIENT EXPERIENCE SPECIALIST Unavailable Unavailable Alberry, D Sloane CLIENT EXPERIENCE SPECIALIST Unavailable Unavailable Alberry, D Sloane CLIENT EXPERIENCE SPECIALIST Unavailable Unavailable Alberry, D Sloane CLIENT EXPERIENCE SPECIALIST Unavailable Unavailable Alberry, D Sloane CLIENT EXPERIENCE SPECIALIST Unavailable Unavailable Alberry, D Sloane CLIENT EXPERIENCE SPECIALIST Unavailable Unavailable Alberry, D Sloane CLIENT EXPERIENCE SPECIALIST Unavailable Unavailable Alberry, D Sloane CLIENT EXPERIENCE SPECIALIST Unavailable Unavailable Alberry, D Sloane CLIENT EXPERIENCE SPECIALIST Unavailable Unavailable Alberry, D Sloane CLIENT EXPERIENCE SPECIALIST Unavailable Unavailable Alberry, D Sloane CLIENT EXPERIENCE SPECIALIST Unavailable Unavailable Alberry, D Sloane CLIENT EXPERIENCE SPECIALIST Unavailable Unavailable Alberry, D Sloane CLIENT EXPERIENCE SPECIALIST Unavailable Unavailable Alberry, D Sloane CLIENT EXPERIENCE SPECIALIST Unavailable Unavailable Alberry, D Sloane CLIENT EXPERIENCE SPECIALIST Unavailable Unavailable Alberry, D Sloane CLIENT EXPERIENCE SPECIALIST Unavailable Unavailable Alberry, D Sloane CLIENT EXPERIENCE SPECIALIST Unavailable Unavailable Alberry, D Sloane CLIENT EXPERIENCE SPECIALIST Unavailable Unavailable Alberry, D Sloane CLIENT EXPERIENCE SPECIALIST Unavailable Unavailable Alberry, D Sloane CLIENT EXPERIENCE SPECIALIST Unavailable Unavailable Alberry, D Sloane CLIENT EXPERIENCE SPECIALIST Unavailable Unavailable Alberry, D Sloane CLIENT EXPERIENCE SPECIALIST Unavailable Unavailable Alberry, D Sloane CLIENT EXPERIENCE SPECIALIST Unavailable Unavailable Alberry, D Sloane CLIENT EXPERIENCE SPECIALIST Unavailable Unavailable Hanna QUESADA MD Unavailable Unavailable QUESADA, Hanna WALSH MD Unavailable Unavailable QUESADA, Hanna WALSH MD Unavailable Unavailable QUESADAHanna MD Unavailable Unavailable QUESADA, Hanna WALSH MD Unavailable Unavailable QUESADA, Hanna WALSH MD Unavailable Unavailable QUESADA, Hanna WALSH MD Unavailable Unavailable Hanna QUESADA MD Unavailable Unavailable Hanna QUESADA MD Unavailable Unavailable SYMENOW, G CHRISTOPHER PA Unavailable [...] Unavailable SYMENOW, G CHRISTOPHER PA Unavailable Unavailable SONG, RIGO Unavailable Unavailable KASSIDY, A EBER DO Unavailable [...] Unavailable KASSIDY, A EBER DO Unavailable Unavailable KSASIDY, A EBER DO Unavailable Unavailable KASSIDY, A [...] Unavailable KASSIDY, A EBER DO Unavailable Unavailable Qian MCINTYRE MD Unavailable Unavailable Qian MCINTYRE MD Unavailable Unavailable Qian MCINTYRE MD Unavailable Unavailable Qian MCINTYRE MD Unavailable Unavailable Qian MCINTYRE MD Unavailable Unavailable Qian MCINTYRE MD Unavailable Unavailable Qian MCINTYRE MD Unavailable Unavailable Qian MCINTYRE MD Unavailable Unavailable Qian MCINTYRE MD Unavailable Unavailable Qian MCINTYRE MD Unavailable Unavailable Qian MCINTYRE MD Unavailable Unavailable Qian MCINTYRE MD Unavailable Unavailable Qian MCINTYRE MD Unavailable Unavailable Qian MCINTYRE MD Unavailable Unavailable Qian MCINTYRE MD Unavailable Unavailable Qian MCINTYRE MD Unavailable Unavailable Qian MCINTYRE MD Unavailable Unavailable Qian MCINTYER MD Unavailable Unavailable Qian MCINTYRE MD Unavailable Unavailable Qian MCINTYRE MD Unavailable Unavailable Qian MCINTYRE MD Unavailable Unavailable Qian MCINTYRE MD Unavailable Unavailable Qian MCINTYRE MD Unavailable Unavailable Qian MCINTYRE MD Unavailable Unavailable Qian MCINTYRE MD Unavailable Unavailable Qian MCINTYRE MD Unavailable Unavailable Qian MCINTYRE MD Unavailable Unavailable Qian MCINTYRE MD Unavailable Unavailable Qian MCINTYRE MD Unavailable Unavailable Qian MCINTYRE MD Unavailable Unavailable Qian MCINTYRE MD Unavailable Unavailable Qian MCINTYRE MD Unavailable Unavailable Qian MCINTYRE MD Unavailable Unavailable Michelle Marcelino MD Unavailable [...] Unavailable Unavailable Michelle Marcelino MD Unavailable Unavailable Dombek-Lang, Michelle Stewart MD Unavailable Unavailable Dombek-Lang, Michelle Stewart MD Unavailable Unavailable Dombek-Lang, Michelle Stewart MD Unavailable Unavailable Dombek-Lang, Michelle AlmanzaPat MD Unavailable Unavailable Dombek-Lang, Michelle Stewart MD Unavailable Unavailable Dombek-Lang, Michelle Stewart MD Unavailable Unavailable Dombek-Lang, V Pat MD Unavailable Unavailable Dombek-Lang, Michelle Stewart MD Unavailable Unavailable Dombek-Lang, Michelle AlmanzaPat MD Unavailable Unavailable Dombek-Lang, Michelle AlmanzaPat MD Unavailable Unavailable Dombek-Lang, Michelle AlmanzaPat MD Unavailable Unavailable Dombek-Lang, V Pat BRANCH Unavailable Unavailable Dombek-Lang, V Pta BRANCH Unavailable Unavailable Dombek-Lang, Michelle Stewart MD Unavailable Unavailable Dombek-Lang, Michelle Stewart MD Unavailable Unavailable Dombek-Lang, V Pat BRANCH Unavailable Unavailable Dombek-Lang, Michelle Stewart MD Unavailable Unavailable Dombek-Lang, Michelle Stewart MD Unavailable Unavailable Dombek-Lang, Michelle Stewart MD Unavailable Unavailable Dombek-Lang, Michelle Stewart MD Unavailable Unavailable Dombek-Lang, Michelle Stewart MD Unavailable Unavailable Dombek-Lang, Michelle Stewart MD Unavailable Unavailable Dombek-Lang, Michelle Stewart MD Unavailable Unavailable Dombek-Lang, Michelle Stewart MD Unavailable Unavailable Dombek-Lang, V Pat BRANCH Unavailable Unavailable IMANI, CARA GAUTAM PA Unavailable Unavailable IMANI, CARA GAUTAM PA Unavailable Unavailable IMANI, CARA GAUTAM PA Unavailable Unavailable IMANI, CARA GAUTAM PA Unavailable Unavailable IMANI, CARA GAUTAM PA Unavailable Unavailable IMANI, CARA GAUTAM PA Unavailable Unavailable IMANI, CARA GAUTAM PA Unavailable Unavailable IMANI, CARA GAUTAM PA Unavailable Unavailable IMANI, CARA GAUTAM PA Unavailable Unavailable IMANI, CARA GAUTAM PA Unavailable Unavailable IMANI, CARA GAUTAM PA Unavailable Unavailable IMANI, CARA GAUTAM PA Unavailable Unavailable IMANI, CARA GAUTAM PA Unavailable Unavailable IMANI, CARA GAUTAM PA Unavailable Unavailable IMANI, CARA GAUTAM PA Unavailable Unavailable IMANI, CARA GAUTAM PA Unavailable Unavailable IMANI, CARA GAUTAM PA Unavailable Unavailable IMANI, CARA AGUTAM PA Unavailable Unavailable IMANI, CARA AGUTAM PA Unavailable Unavailable IMANI, CARA GAUTAM PA Unavailable Unavailable IMANI, CARA GAUTAM PA Unavailable Unavailable IMANI, CARA GAUTAM PA Unavailable Unavailable FLOYD, C GRAHAME MD Unavailable Unavailable FLOYD, C GRAHAME MD Unavailable Unavailable FLOYD, C GRAHAME MD Unavailable Unavailable FLOYD, C GRAHAME MD Unavailable Unavailable FLOYD, C GRAHAME MD Unavailable Unavailable FLOYD, C GRAHAME MD Unavailable Unavailable FLOYD, C GRAHAME MD Unavailable Unavailable FLOYD, C GRAHAME MD Unavailable Unavailable FLOYD, C GRAHAME MD Unavailable Unavailable FLOYD, C GRAHAME MD Unavailable Unavailable FLOYD, C GRAHAME MD Unavailable Unavailable FLOYD, C GRAHAME MD Unavailable Unavailable FLOYD, C GRAHAME MD Unavailable Unavailable FLOYD, C GRAHAME MD Unavailable Unavailable FLOYD, C GRAHAME MD Unavailable Unavailable FLOYD, C GRAHAME MD Unavailable Unavailable FLOYD, C GRAHAME MD Unavailable Unavailable FLOYD, C GRAHAME MD Unavailable Unavailable FLOYD, C GRAHAME MD Unavailable Unavailable FLOYD, C GRAHAME MD Unavailable Unavailable FLOYD, C GRAHAME MD Unavailable Unavailable FLOYD, C GRAHAME MD Unavailable Unavailable FLOYD, C GRAHAME MD Unavailable Unavailable FLOYD, C GRAHAME MD Unavailable Unavailable FLOYD, C GRAHAME MD Unavailable Unavailable FLOYD, C GRAHAME MD Unavailable Unavailable FLOYD, C GRAHAME MD Unavailable Unavailable FLOYD, C GRAHAME MD Unavailable Unavailable FLOYD, C GRAHAME MD Unavailable Unavailable FLOYD, C GRAHAME MD Unavailable Unavailable FLOYD, C GRAHAME MD Unavailable Unavailable FLOYD, C GRAHAME MD Unavailable Unavailable FLOYD, C GRAHAME MD Unavailable Unavailable FLOYD, C GRAHAME MD Unavailable Unavailable FLOYD, C GRAHAME MD Unavailable Unavailable FLOYD, C GRAHAME MD Unavailable Unavailable FLOYD, C GRAHAME MD Unavailable Unavailable FLOYD, C GRAHAME MD Unavailable Unavailable FLOYD, C GRAHAME MD Unavailable Unavailable FLOYD, C GRAHAME MD Unavailable Unavailable FLOYD, C GRAHAME MD Unavailable Unavailable FLOYD, C GRAHAME MD Unavailable Unavailable FLOYD, C GRAHAME MD Unavailable Unavailable FLOYD, C GRAHAME MD Unavailable Unavailable FLOYD, C GRAHAME MD Unavailable Unavailable FLOYD, C GRAHAME MD Unavailable Unavailable FLOYD, C GRAHAME MD Unavailable Unavailable FLOYD, C GRAHAME MD Unavailable Unavailable FLOYD, C GRAHAME MD Unavailable Unavailable Sascha FLOYD MD Unavailable Unavailable Sascha FLOYD MD Unavailable Unavailable Sascha FLOYD MD Unavailable Unavailable Sascha FLOYD MD Unavailable Unavailable Sascha FLOYD MD Unavailable Unavailable Sascha FLOYD MD Unavailable Unavailable Sascha FLOYD MD Unavailable Unavailable Sascha FLOYD MD Unavailable Unavailable Sascha FLOYD MD Unavailable Unavailable Sascha FLOYD MD Unavailable Unavailable Sascha FLOYD MD Unavailable Unavailable Sascha FLOYD MD Unavailable Unavailable Symenow, Dulce Sinai PA Unavailable Unavailable Symenow, Dulce Sinai PA Unavailable Unavailable Symenow, Dulce Sinai PA Unavailable Unavailable Symenow, Dulce Sinai PA Unavailable Unavailable Symenow, Dulce Sinai PA Unavailable Unavailable Symenow, Dulce Sinai PA Unavailable Unavailable Symenow, Dulce Sinai PA Unavailable Unavailable Symenow, Dulce Sinai PA Unavailable Unavailable Symenow, Dulce Sinai PA Unavailable Unavailable Symenow, Dulce Sinai PA Unavailable Unavailable Symenow, Dulce Sinai PA Unavailable Unavailable Symenow, Dulce Sinai PA Unavailable Unavailable Symenow, Dulce Sinai PA Unavailable Unavailable Symenow, Dulce Sinai PA Unavailable Unavailable Symenow, Dulce Sinai PA Unavailable Unavailable Symenow, Dulce Sinai PA Unavailable Unavailable Symenow, Dulce Sinai PA Unavailable Unavailable Symenow, Dulce Sinai PA Unavailable Unavailable Symenow, Dulce Sinai PA Unavailable Unavailable Symenow, Dulce Sinai PA Unavailable Unavailable Symenow, Dulce Sinai PA Unavailable Unavailable Symenow, Dulce Sinai PA Unavailable Unavailable Symenow, Dulce Sinai PA Unavailable Unavailable Symenow, Dulce Sinai PA Unavailable Unavailable Symenow, Dulce Sinai PA Unavailable Unavailable Symenow, Dulce Sinai PA Unavailable Unavailable Symenow, Dulce Sinai PA Unavailable Unavailable Symenow, Dulce Sinai PA Unavailable Unavailable Symenow, Dulce Sinai PA Unavailable Unavailable Symenow, Dulce Sinai PA Unavailable Unavailable Symenow, Dulce Sinai PA Unavailable Unavailable Symenow, Dulce Sinai PA Unavailable Unavailable Symenow, Dulce Sinai PA Unavailable Unavailable Symenow, Dulce Sinai PA Unavailable Unavailable DORA LLOYD Unavailable Unavailable Field Kiko PA-C Unavailable Field, Kiko PA-C Unavailable Emir Kiko PA-C Unavailable Emir Kiko PA-C Unavailable Emir, Kiko PA-C Unavailable ANTECOL, Lety WINN MD Unavailable Unavailable [...] Unavailable ANTECOL, Lety WINN MD Unavailable Unavailable HamNaveed morton MD Unavailable Unavailable HamTianna mortonm MD Unavailable Unavailable Hampraveen Naveed MD Unavailable Unavailable Hampraveen Naveed MD Unavailable Unavailable Hamad, Naveed MD Unavailable Unavailable Hamad, Naveed MD Unavailable Unavailable Hamad, Naveed MD Unavailable Unavailable Hamad, Anveed MD Unavailable Unavailable Hamad, Naveed MD Unavailable Unavailable Hamad, Naveed MD Unavailable Unavailable Hamad Naveed MD Unavailable Unavailable Hamad Naveed MD Unavailable Unavailable Hampraveen Naveed MD Unavailable Unavailable HamTianna mortonm MD Unavailable Unavailable Tianna Musem MD Unavailable Unavailable Tianna Musem MD Unavailable Unavailable Naveed Muse MD Unavailable Unavailable Naveed Muse MD Unavailable Unavailable Naveed Muse MD Unavailable Unavailable Omkar Reyna MD Unavailable Unavailable Omkar Reyna MD Unavailable Unavailable Omkar Reyna MD Unavailable Unavailable Omkar Reyna MD Unavailable Unavailable Omkar Reyna MD Unavailable Unavailable Omkar Reyna MD Unavailable Unavailable Omkar Reyna MD Unavailable Unavailable Omkar Reyna MD Unavailable Unavailable Omkar Reyna MD Unavailable Unavailable Omkar Reyna MD Unavailable Unavailable Omkar Reyna MD Unavailable Unavailable Omkar Reyna MD Unavailable Unavailable Omkar Reyna MD Unavailable Unavailable Omkar Reyna MD Unavailable Unavailable Omkar Reyna MD Unavailable Unavailable Omkar Reyna MD Unavailable Unavailable Omkar Reyna MD Unavailable Unavailable Omkar Reyna MD Unavailable Unavailable Omkar Reyna MD Unavailable Unavailable AIDEE, L BUNNY PA Unavailable [...] Unavailable AIDEE, L BUNNY PA Unavailable Unavailable Barrientos, L Jennie RPA Unavailable Unavailable Barrientos, L Jennie RPA Unavailable Unavailable Barrientos, L Jennie RPA Unavailable Unavailable Barrientos, L Jennie RPA Unavailable Unavailable Barrientos, L Jennie RPA Unavailable Unavailable Barrientos, L Jennie RPA Unavailable Unavailable Barrientos, L Jennie RPA Unavailable Unavailable Barrientos, L Jennie RPA Unavailable Unavailable Barrientos, L Jennie RPA Unavailable Unavailable Barrientos, L Jennie RPA Unavailable Unavailable Barrientos, L Jennie RPA Unavailable Unavailable Barrientos, L Jennie RPA Unavailable Unavailable Barrientos, L Jennie RPA Unavailable Unavailable Barrientos, L Jennie RPA Unavailable Unavailable Barrientos, L Jennie RPA Unavailable Unavailable Barrientos, L Jennie RPA Unavailable Unavailable Barrientos, L Jennie RPA Unavailable Unavailable Brarientos, L Jennie RPA Unavailable Unavailable Barrientos, L Jennie RPA Unavailable Unavailable Barrientos, L Jennie RPA Unavailable Unavailable Barrientos, L Jennie RPA Unavailable Unavailable Barrientos, L Jennie RPA Unavailable Unavailable Barrientos, L Jennie RPA Unavailable Unavailable Barrientos, L Jennie RPA Unavailable Unavailable Barrientos, L Jennie RPA Unavailable Unavailable Barrientos, L Jennie RPA Unavailable Unavailable Barrientos, L Jennie RPA Unavailable Unavailable Barrientos, L Jennie RPA Unavailable Unavailable Barrientos, L Jennie RPA Unavailable Unavailable Barrientos, L Jennie RPA Unavailable Unavailable Barrientos, L Jennie RPA Unavailable Unavailable Barrientos, L Jennie RPA Unavailable Unavailable HUMAYUN, U FLETCHER MD Unavailable [...] Unavailable HUMAYUN, U FLETCHER MD Unavailable Unavailable Naylor, W Jonh RPA-C [...] Unavailable Naylor, W Jonh RPA-C Unavailable Unavailable Re-disclosure Warning The records that [...] is protected by Article 27-F of the [facility] Public Health law. If you continue you may have access to information: Regarding HIV / AIDS; Provided by facilities licensed or operated by the [facility] Office of Mental Health; or Provided by the [facility] Office for People With Developmental Disabilities. If such information is present, then the following [facility] mandated warning applies: This information has been [...] law may result in a fine or penitentiary sentence or both. A general authorization for the release of medical or other information is NOT sufficient authorization for further disc losure. Allergies and Adverse Reactions Type Description Substance Reaction Status Data Source(s ) Propensity to adverse reactions NO KNOWN ALLERGIES NO KNOWN ALLERGIES [facility] Family History Family Member Name Family Member Gender Family Member Status Date o f Status Description Data Source(s) Unknown Male Problem [facility] ([facility] Encounters Encounter Providers Location Date Indications Data Source(s ) Unknown [address] [facility] [id number] 02/15/2021 12:00:00 AM EDT eCW1 ([facility]) Unknown [address] [facility] [id number] 02/07/2021 12:00:00 AM EDT eCW1 ([facility]) Outpatient [address] [facility] [id number] 01/13/2021 12:00:00 AM EDT eCW1 ([facility]) Outpatient Attender: GAY MALHOTRA [facility] Office 12/22 01:15:00 PM EDT [facility] ([facility] Unknown [address] [facility] [id number] 12/31/2020 12:00:00 AM EDT eCW1 ([facility]) [place] [address] [facility] [address] 12/30/2020 12:00:00 AM EDT eCW1 ([facility]) [place] [address] [facility] [address] 12/21/2020 12:00:00 AM EDT eCW1 [facility] Outpatient Attender: Sinai REY Main Office 12/08/2020 09:30:00 AM EDT [facility] ([facility]) [place] [address] [facility] [address] 11/29/2020 12:00:00 AM EDT eCW1 ([facility]) [place] [address] [facility] [address] 11/24/2020 12:00:00 AM EDT eCW1 ([facility]) [place] [address] [facility] [address] 10/30/2020 12:00:00 AM EDT eCW1 ([facility]) [place] [address] [facility] [address] 10/26/2020 12:00:00 AM EDT eCW1 ([facility] Outpatient [address] [facility] [address] 10/21/2020 12:00:00 AM EDT eCW1 ([facility]) Unknown [address] [facility] [address] 10/15/2020 12:00:00 AM EDT eCW1 ([facility]) Outpatient Attender: GAUTAM DIALLO PAConsultant: Zeb Davidson osp [id number] 10/06/2020 04:00:00 PM EDT [facility] Emergency Attender: GAUTAM DIALLO PAReferrer: Hanna Urrutia [facility] EMERGENCY ROOM-ER 10/06/2020 03:01:00 PM EDT - 10/06/2020 06:00:00 PM EDT [facility] Patient discharged. Emergency Attender: Kiko ELIASCReferrer: Harshil Urrutia [facility] EMERGENCY ROOM-ER 10/04/2020 01:50:00 PM EDT - 10/04/2020 02:59:00 PM EDT [facility] Patient discharged. [place] [address] [facility] [address] 10/04/2020 12:00:00 AM EDT eCW1 ([facility]) Outpatient [address] [facility] [address] 09/29/2020 12:00:00 AM EDT eCW1 ([facility]) Inpatient Attender: Pat Marcelino MDAttender: PATRICIA QUESADA MDAttender: Kiko REY-CAdmitter: Pat Marcelino MDReferrer: Sloane Urrutia [facility] EMERGENCY ROOM-2N 09/23/2020 08:00:00 PM EDT - 09/25/2020 06:55:00 PM EDT [facility] Patient discharged. Outpatient Attender: Kiko REY-CConsultant: [facility] [id number] 09/23/2020 06:20:00 PM EDT [facility] Unknown [address] [facility] [address] 09/16/2020 12:00:00 AM EDT eCW1 ([facility]) Office Visit Attender: PA HERNÁNDEZ MD Main Office 09/09/2020 12: 52:00 PM EDT MEDENT ([facility]) Outpatient Attender: Jennie Rosenthal/Martin/Satnam/Girish eicleveland 09/07/2020 09:00:00 AM EDT MEDENT ([facility]) Outpatient Attender: GAY MALHOTRA [facility] Office 08/21 09:15:00 AM EDT MEDENT ([facility] [place] [address] [facility] [address] 09/01/2020 12:00:00 AM EDT eCW1 ([facility]) Unknown [address] [facility] [address] 09/01/2020 12:00:00 AM EDT eCW1 ([facility]) Outpatient Attender: Sinai REY Main Office 08/30/2020 10:15:00 AM EDT MEDENT ([facility]) Outpatient [address] [facility] [place] [address] 08/03/2020 12:00:00 AM EDT eCW1 ([facility]) Unknown [address] [facility] [address] 07/29/2020 12:00:00 AM EDT eCW1 ([facility]) Emergency Attender: Jonh Naylor RPA-CReferrer: Sloane monet [facility] 07/24/2020 04:25:00 PM EDT - 07/24/2020 05:25:00 PM EDT [facility] Patient discharged. Outpatient Attender: CARROLL Rosenthal/Martin/Blake castro/Reinmat 07/21/2020 09:10:00 AM EDT MEDENT ([facility] [place] [address] [facility] [address] 07/08/2020 12:00:00 AM EDT eCW1 ([facility]) Unknown [address] [facility] [place] [address] 07/01/2020 12:00:00 AM EST eCW1 ([facility]) Office Visit Attender: PA HERNÁNDEZ MD Main Office 06/29/2020 11: 09:00 AM EST MEDENT ([facility]) Unknown [address] [facility] [place] [address] 06/23/2020 12:00:00 AM EST eCW1 ([facility]) Emergency Attender: Pat Marcelino MDAttender: BUNNY HOSKINS PAReferrer: Sloane Urrutia [facility]PERIENCE SPECIALIST 06/16/2020 02:20:00 PM EST - 06/16/2020 03:26:00 PM [facility] Patient discharged. Outpatient Attender: DINORAH FLOYD MD [id number] 06/16 12:00:00 AM EST - 06/16/2020 03:42:19 PM EST Cerebral aneurysm, nonruptured [facility] Cerebral aneurysm, nonruptured Unknown [address] [facility] [address] 06/14/2020 12:00:00 AM EST [facility] (TCM) Transition of Care Visit [address] [place] [address] 2020 12:00:00 AM EST eCW1 ([facility]) Unknown [address] [facility] [address] 06/09/2020 12:00:00 AM EST eCW1 ([facility]) Unknown [address] [facility] [address] 06/08/2020 12:00:00 AM EST eCW1 ([facility]) Unknown [address] [facility] [address] 06/03/2020 12:00:00 AM EST eCW1 ([facility]) Outpatient Attender: Sinai Grady PA Main Office 05/31/2020 08:30:00 AM EST MEDENT ([facility]) Unknown [address] [facility] [address] 05/31/2020 12:00:00 AM EST eCW1 ([facility]) Unknown [address] [facility] [address] 05/31/2020 12:00:00 AM EST eCW1 ([facility]) Outpatient [address] [facility] [address] 05/24/2020 12:00:00 AM EST eCW1 ([facility]) Inpatient Attender: Pat Marcelino MDAttender: VERONICA GARCIA PAAttender: KAMERON LLOYDAdmitter: Pat Marcelino MDReferrer: Sloane [facility] EMERGENCY ROOM-2N 05/21/2020 11:23:00 AM EST - 05/23/2020 04:45:00 PM [facility] Patient discharged. Inpatient Attender: Naveed fowlerer: FLETCHER BARBA MDAdmitter: FLETCHER BARBA MD [id number] 05/14/2020 07:00:47 PM EST - 05/16/2020 01:33:00 PM EST [facility] Patient discharged. [place] [address] [facility] [address] 05/12/2020 12:00:00 AM EST [facility]CW1 [facility]) Outpatient Attender: Sinai REY Main Office 05/11/2020 08:15:00 AM EST MEDENT ([facility]) Outpatient [address] [facility] [address] 05/11/2020 12:00:00 AM EST [facility]CW1 ([facility]) Unknown [address] [facility] [address] 05/06/2020 12:00:00 AM EST eCW1 ([facility]) Unknown [address] [facility] [address] 04/30/2020 12:00:00 AM EST eCW1 ([facility]) Unknown [address] [facility] [address] 04/27/2020 12:00:00 AM EST eCW1 ([facility]) Emergency Attender: BUNNY Earlyer: Eleni [facility] EMERGENCY ROOM-ER 04/23/2020 02:12:00 PM EST - 04/23/2020 06:12:00 PM [facility] Patient discharged. Unknown [address] [facility] [address] 04/13/2020 12:00:00 AM EST eCW1 ([facility]) Outpatient [address] [facility] [address] 04/12/2020 12:00:00 AM EST [facility] Office Visit Attender: PA HERNÁNDEZ MD Main Office 03/26/2020 08: 57:00 AM EST MEDENT ([facility]) Unknown [address] [facility] [address] 03/24/2020 12:00:00 AM EST eCW1 ([facility]) Outpatient Attender: Pat Marcelino MDConsultant: [facility] [id number] 03/23/2020 01:19:00 AM [facility] Inpatient Attender: Pat Marcelino MDAttender: ISAÍAS GRADY PAAttender: BUNNY HOSKINS PAAdmitter: Pat Marcelino MDReferrer: Sloane [facility] EMERGENCY ROOM-2ND FLOOR - INPATIENT SERVICES 03/22/20 11:28:00 PM EST - 03/23/2020 08:21:00 PM [facility] Patient discharged. [place] [address] [facility] [address] 03/22/2020 12:00:00 AM EST eCW1 ([facility]) Outpatient [address] [facility] [address] 03/16/2020 12:00:00 AM EST eCW1 ([facility]) Emergency Attender: BUNNY Juarez: Eleni [facility] EMERGENCY ROOM-ER 03/13/2020 09:53:00 PM EST - 03/14/2020 01:00:00 AM [facility] Patient discharged. [place] [address] [facility] [address] 03/12/2020 12:00:00 AM EST eCW1 ([facility]) Emergency Attender: BUNNY Juarez: Sloane Chowdhury 03/11/2020 12:55:00 PM EST - 03/11/2020 02:09:00 PM EST [facility] Patient discharged. Outpatient Attender: Sinai REY Main Office 03/01/2020 09:45:00 AM EST MEDENT ([facility]) Outpatient [address] [facility] [address] 02/25/2020 12:00:00 AM EST eCW1 ([facility]) Unknown [address] [facility] [place] [address] 02/18/2020 12:00:00 AM EDT eCW1 ([facility]) Office Visit Attender: PA HERNÁNDEZ MD Main Office 02/17/2020 10: 15:00 AM EDT MEDENT ([facility]) [place] [address] [facility] [address] 02/10/2020 12:00:00 AM EDT eCW1 ([facility]) Unknown [address] [facility] [place] [address] 01/22/2020 12:00:00 AM EDT eCW1 ([facility]) Office Visit Attender: PA HERNÁNDEZ MD Main Office 12/23/2019 10: 31:00 AM EDT MEDENT ([facility]) Emergency Attender: Jonh Naylor RPA-CReferrer: Sloane CHATTERJEEP 12/13/2019 03:32:00 PM EDT - 12/13/2019 05:28:00 PM EDT [facility] Patient discharged. Outpatient Attender: Omkar Reyna MDAttender: RIGO HUYNH [id number] 12/03/2019 12:00:00 AM EDT - 12/03/2019 03:08:32 PM EDT [facility] Outpatient Attender: EBER ORELLANAeferrer: EBER YI DO EMERGENCY ROOM-[facility] 03/17/2019 02:48:00 PM [facility] - 03/17/2019 02:48:00 PM [facility] Outpatient Attender: EBER YI DO 2017 02:00:00 PM EDT - 01/17/2018 02:00:00 PM EDT [facility] Outpatient Attender: EBER YI DO 03/18/2014 02:05:00 P [facility] Outpatient Attender: EBER YI DO 03/14/2014 08:58:00 A [facility] Immunizations Vaccine Date Status Description Data Source(s) influenza, recombinant, quadrIvalent,injectable, prese rvative free 01/13/2021 12:35:00 PM EDT completed eCW1 ([facility]) influenza, recombinant, quadrIvalent,injectable, prese rvative free 01/13/2021 12:35:00 PM EDT completed eCW1 ([facility]) influenza, recombinant, quadrIvalent,injectable, prese rvative free 01/13/2021 12:35:00 PM EDT completed eCW1 ([facility]) COVID-19 dose #2 given elsewhere Unspecified 07/07/2020 10:2 2:00 AM EDT completed eCW1 ([facility]) COVID-19 dose #2 given elsewhere Unspecified 07/07/2020 10:2 2:00 AM EDT completed eCW1 ([facility]) COVID-19 dose #2 given elsewhere Unspecified 07/07/2020 10:2 2:00 AM EDT completed eCW1 ([facility]) COVID-19 dose #2 given elsewhere Unspecified 07/07/2020 10:2 2:00 AM EDT completed eCW1 ([facility]) COVID-19 dose #2 given elsewhere Unspecified 07/07/2020 10:2 2:00 AM EDT completed eCW1 ([facility]) COVID-19 dose #2 given elsewhere Unspecified 07/07/2020 10:2 2:00 AM EDT completed eCW1 ([facility]) COVID-19 dose #2 given elsewhere Unspecified 07/07/2020 10:2 2:00 AM EDT completed eCW1 ([facility]) COVID-19 dose #2 given elsewhere Unspecified 07/07/2020 10:2 2:00 AM EDT completed eCW1 ([facility]) COVID-19 dose #2 given elsewhere Unspecified 07/07/2020 10:2 2:00 AM EDT completed eCW1 ([facility]) COVID-19 dose #2 given elsewhere Unspecified 07/07/2020 10:2 2:00 AM EDT completed eCW1 ([facility]) COVID-19 dose #2 given elsewhere Unspecified 07/07/2020 10:2 2:00 AM EDT completed eCW1 ([facility]) COVID-19 dose #2 given elsewhere Unspecified 07/07/2020 10:2 2:00 AM EDT completed eCW1 ([facility]) COVID-19 dose #2 given elsewhere Unspecified 07/07/2020 10:2 2:00 AM EDT completed eCW1 ([facility]) COVID-19 dose #2 given elsewhere Unspecified 07/07/2020 10:2 2:00 AM EDT completed eCW1 ([facility]) COVID-19 dose #2 given elsewhere Unspecified 07/07/2020 10:2 2:00 AM EDT completed eCW1 ([facility]) COVID-19 dose #2 given elsewhere Unspecified 07/07/2020 10:2 2:00 AM EDT completed eCW1 ([facility]) COVID-19 dose #2 given elsewhere Unspecified 07/07/2020 10:2 2:00 AM EDT completed eCW1 ([facility]) COVID-19 dose #2 given elsewhere Unspecified 07/07/2020 10:2 2:00 AM EDT completed eCW1 ([facility]) COVID-19 VACCINE Moderna 07/07/2020 12:00:00 AM EDT completed [employer] Vaccine Series Complete: YESThis Data wa s Submitted to [facility] Via [employer]. COVID-19 VACCINE, MRNA-1273, LNP-S (MODERNA)/PF 07/07/2020 1 2:00:00 AM EDT completed [facility] COVID-19 dose #1 given elsewhere Unspecified 06/04/2020 10:2 1:00 AM EST completed eCW1 ([facility]) COVID-19 dose #1 given elsewhere Unspecified 06/04/2020 10:2 1:00 AM EST completed eCW1 ([facility]) COVID-19 dose #1 given elsewhere Unspecified 06/04/2020 10:2 1:00 AM EST completed eCW1 ([facility]) COVID-19 dose #1 given elsewhere Unspecified 06/04/2020 10:2 1:00 AM EST completed eCW1 ([facility]) COVID-19 dose #1 given elsewhere Unspecified 06/04/2020 10:2 1:00 AM EST completed eCW1 ([facility]) COVID-19 dose #1 given elsewhere Unspecified 06/04/2020 10:2 1:00 AM EST completed eCW1 ([facility]) COVID-19 dose #1 given elsewhere Unspecified 06/04/2020 10:2 1:00 AM EST completed eCW1 ([facility]) COVID-19 dose #1 given elsewhere Unspecified 06/04/2020 10:2 1:00 AM EST completed eCW1 ([facility]) COVID-19 dose #1 given elsewhere Unspecified 06/04/2020 10:2 1:00 AM EST completed eCW1 ([facility]) COVID-19 dose #1 given elsewhere Unspecified 06/04/2020 10:2 1:00 AM EST completed eCW1 ([facility]) COVID-19 dose #1 given elsewhere Unspecified 06/04/2020 10:2 1:00 AM EST completed eCW1 ([facility]) COVID-19 dose #1 given elsewhere Unspecified 06/04/2020 10:2 1:00 AM EST completed eCW1 ([facility]) COVID-19 dose #1 given elsewhere Unspecified 06/04/2020 10:2 1:00 AM EST completed eCW1 ([facility]) COVID-19 dose #1 given elsewhere Unspecified 06/04/2020 10:2 1:00 AM EST completed eCW1 ([facility]) COVID-19 dose #1 given elsewhere Unspecified 06/04/2020 10:2 1:00 AM EST completed eCW1 ([facility]) COVID-19 dose #1 given elsewhere Unspecified 06/04/2020 10:2 1:00 AM EST completed eCW1 ([facility]) COVID-19 dose #1 given elsewhere Unspecified 06/04/2020 10:2 1:00 AM EST completed eCW1 ([facility]) COVID-19 dose #1 given elsewhere Unspecified 06/04/2020 10:2 1:00 AM EST completed eCW1 ([facility]) COVID-19 VACCINE Moderna 06/04/2020 12:00:00 AM EST completed [employer] Vaccine Series Complete: NOThis Data was Submitted to [facility] Via [employer] COVID-19 VACCINE, MRNA-1273, LNP-S (MODERNA)/PF 06/04/2020 1 2:00:00 AM EST completed [facility] influenza, recombinant, quadrIvalent,injectable, prese rvative free 01/12/2020 03:51:00 PM EDT completed eCW1 ([facility]) influenza, recombinant, quadrIvalent,injectable, prese rvative free 01/12/2020 03:51:00 PM EDT completed eCW1 ([facility]) influenza, recombinant, quadrIvalent,injectable, prese rvative free 01/12/2020 03:51:00 PM EDT completed eCW1 ([facility]) influenza, recombinant, quadrIvalent,injectable, prese rvative free 01/12/2020 03:51:00 PM EDT completed eCW1 ([facility]) influenza, recombinant, quadrIvalent,injectable, prese rvative free 01/12/2020 03:51:00 PM EDT completed eCW1 ([facility]) influenza, recombinant, quadrIvalent,injectable, prese rvative free 01/12/2020 03:51:00 PM EDT completed eCW1 ([facility]) influenza, recombinant, quadrIvalent,injectable, prese rvative free 01/12/2020 03:51:00 PM EDT completed eCW1 ([facility]) influenza, recombinant, quadrIvalent,injectable, prese rvative free 01/12/2020 03:51:00 PM EDT completed eCW1 ([facility]) influenza, recombinant, quadrIvalent,injectable, prese rvative free 01/12/2020 03:51:00 PM EDT completed eCW1 ([facility]) influenza, recombinant, quadrIvalent,injectable, prese rvative free 01/12/2020 03:51:00 PM EDT completed eCW1 ([facility]) influenza, recombinant, quadrIvalent,injectable, prese rvative free 01/12/2020 03:51:00 PM EDT completed eCW1 ([facility]) influenza, recombinant, quadrIvalent,injectable, prese rvative free 01/12/2020 03:51:00 PM EDT completed eCW1 ([facility]) influenza, recombinant, quadrIvalent,injectable, prese rvative free 01/12/2020 03:51:00 PM EDT completed eCW1 ([facility]) influenza, recombinant, quadrIvalent,injectable, prese rvative free 01/12/2020 03:51:00 PM EDT completed eCW1 ([facility]) influenza, recombinant, quadrIvalent,injectable, prese rvative free 01/12/2020 03:51:00 PM EDT completed eCW1 ([facility]) influenza, recombinant, quadrIvalent,injectable, prese rvative free 01/12/2020 03:51:00 PM EDT completed eCW1 ([facility]) influenza, recombinant, quadrIvalent,injectable, prese rvative free 01/12/2020 03:51:00 PM EDT completed eCW1 ([facility]) influenza, recombinant, quadrIvalent,injectable, prese rvative free 01/12/2020 03:51:00 PM EDT completed eCW1 ([facility]) influenza, recombinant, quadrIvalent,injectable, prese rvative free 01/12/2020 03:51:00 PM EDT completed eCW1 ([facility]) influenza, recombinant, quadrIvalent,injectable, prese rvative free 01/12/2020 03:51:00 PM EDT completed eCW1 ([facility]) influenza, recombinant, quadrIvalent,injectable, prese rvative free 01/12/2020 03:51:00 PM EDT completed eCW1 ([facility]) influenza, recombinant, quadrIvalent,injectable, prese rvative free 01/12/2020 03:51:00 PM EDT completed eCW1 ([facility]) influenza, recombinant, quadrIvalent,injectable, prese rvative free 01/12/2020 03:51:00 PM EDT completed eCW1 ([facility]) influenza, recombinant, quadrIvalent,injectable, prese rvative free 01/12/2020 03:51:00 PM EDT completed eCW1 ([facility]) influenza, recombinant, quadrIvalent,injectable, prese rvative free 01/12/2020 03:51:00 PM EDT completed eCW1 ([facility]) influenza, recombinant, quadrIvalent,injectable, prese rvative free 01/12/2020 03:51:00 PM EDT completed eCW1 ([facility]) influenza, recombinant, quadrIvalent,injectable, prese rvative free 01/12/2020 03:51:00 PM EDT completed eCW1 ([facility]) influenza, recombinant, quadrIvalent,injectable, prese rvative free 01/12/2020 03:51:00 PM EDT completed eCW1 ([facility]) influenza, recombinant, quadrIvalent,injectable, prese rvative free 01/12/2020 03:51:00 PM EDT completed eCW1 ([facility]) influenza, recombinant, quadrIvalent,injectable, prese rvative free 01/12/2020 03:51:00 PM EDT completed eCW1 ([facility]) influenza, recombinant, quadrIvalent,injectable, prese rvative free 01/12/2020 03:51:00 PM EDT completed eCW1 ([facility]) influenza, recombinant, quadrIvalent,injectable, prese rvative free 01/12/2020 03:51:00 PM EDT completed eCW1 ([facility]) influenza, recombinant, quadrIvalent,injectable, prese rvative free 01/12/2020 03:51:00 PM EDT completed eCW1 ([facility]) influenza, recombinant, quadrIvalent,injectable, prese rvative free 01/12/2020 03:51:00 PM EDT completed eCW1 ([facility]) influenza, recombinant, quadrIvalent,injectable, prese rvative free 01/12/2020 03:51:00 PM EDT completed eCW1 ([facility]) influenza, recombinant, quadrIvalent,injectable, prese rvative free 01/12/2020 03:51:00 PM EDT completed eCW1 ([facility]) influenza, recombinant, quadrIvalent,injectable, prese rvative free 01/12/2020 03:51:00 PM EDT completed eCW1 ([facility]) influenza, recombinant, quadrIvalent,injectable, prese rvative free 01/12/2020 03:51:00 PM EDT completed eCW1 ([facility]) influenza, recombinant, quadrIvalent,injectable, prese rvative free 01/12/2020 03:51:00 PM EDT completed eCW1 ([facility]) influenza, recombinant, quadrIvalent,injectable, prese rvative free 01/12/2020 03:51:00 PM EDT completed eCW1 ([facility]) Medications Medication Brand Name Start Date Product Form Dose Route Admi nistrative Instructions Pharmacy Instructions Status Indications Reaction Description Data Source(s) dapagliflozin 5 MG Oral Tablet [Farxiga] Farxiga 5 MG Farxig a 5 MG 01/13/2021 12:00:00 AM EDT 1.0 {tablet} active Fa rxiga 5 MG eCW1 ([facility]) dapagliflozin 5 MG Oral Tablet [Farxiga] Farxiga 5 MG Farxig a 5 MG 01/13/2021 12:00:00 AM EDT 1.0 {tablet} active Fa rxiga 5 MG eCW1 ([facility]) dapagliflozin 5 MG Oral Tablet [Farxiga] Farxiga 5 MG Farxig a 5 MG 01/13/2021 12:00:00 AM EDT 1.0 {tablet} active Fa rxiga 5 MG eCW1 ([facility]) dapagliflozin 10 MG Oral Tablet [Farxiga] Farxiga 12/08/2020 1 2:00:00 AM EDT ORAL active [facility] ([facility] Aspirin 81 MG Oral Tablet Aspirin 12/07/2020 12:00:00 AM EDT ORAL active [facility] ([facility]) Furosemide 80 MG Oral Tablet Furosemide 12/07/2020 12:00:00 AM EDT ORAL active [facility] ([facility]) fidaxomicin 200 MG Oral Tablet [Dificid] Dificid 200 MG Difi gisela 200 MG 10/30/2020 12:00:00 AM EDT 1.0 {tablet} active Dificid 200 MG eCW1 ([facility]) fidaxomicin 200 MG Oral Tablet [Dificid] Dificid 200 MG Difi gisela 200 MG 10/30/2020 12:00:00 AM EDT 1.0 {tablet} active Dificid 200 MG eCW1 ([facility]) fidaxomicin 200 MG Oral Tablet [Dificid] Dificid 200 MG Difi gisela 200 MG 10/30/2020 12:00:00 AM EDT 1.0 {tablet} active Dificid 200 MG eCW1 ([facility]) fidaxomicin 200 MG Oral Tablet [Dificid] Dificid 200 MG Difi gisela 200 MG 10/30/2020 12:00:00 AM EDT 1.0 {tablet} active Dificid 200 MG eCW1 ([facility]) fidaxomicin 200 MG Oral Tablet [Dificid] Dificid 200 MG Difi gisela 200 MG 10/30/2020 12:00:00 AM EDT 1.0 {tablet} active Dificid 200 MG eCW1 ([facility]) fidaxomicin 200 MG Oral Tablet [Dificid] Dificid 200 MG Difi gisela 200 MG 10/30/2020 12:00:00 AM EDT 1.0 {tablet} active Dificid 200 MG eCW1 ([facility]) fidaxomicin 200 MG Oral Tablet [Dificid] Dificid 200 MG Difi gisela 200 MG 10/30/2020 12:00:00 AM EDT 1.0 {tablet} active Dificid 200 MG eCW1 ([facility]) fidaxomicin 200 MG Oral Tablet [Dificid] Dificid 200 MG Difi gisela 200 MG 10/30/2020 12:00:00 AM EDT 1.0 {tablet} active Dificid 200 MG eCW1 ([facility]) fidaxomicin 200 MG Oral Tablet [Dificid] Dificid 200 MG Difi gisela 200 MG 10/30/2020 12:00:00 AM EDT 1.0 {tablet} active D[facility]id 200 MG eCW1 ([facility]) Insulin Syringe-Needle U-100 31G X 5/16" 0.5 ML Insuli n Syringe-Needle U-100 31G X 5/16" 0.5 ML 10/21/2020 12:00:00 AM EDT ac tive Insulin Syringe- Needle U-100 31G X 5/16" 0.5 ML eCW1 ([facility]) Insulin Syringe-Needle U-100 31G X 5/16" 0.5 ML Insuli n Syringe-Needle U-100 31G X 5/16" 0.5 ML 10/21/2020 12:00:00 AM EDT ac tive Insulin Syringe- Needle U-100 31G X 5/16" 0.5 ML eCW1 ([facility]) Glucagon 1 MG Injection Glucagon Emergency 1 MG Glucagon Dede rgency 1 MG 10/21/2020 12:00:00 AM EDT active Glucagon Emergency 1 MG eCW1 ([facility]) Glucagon 1 MG Injection Glucagon Emergency 1 MG Glucagon Dede rgency 1 MG 10/21/2020 12:00:00 AM EDT active Glucagon Emergency 1 MG eCW1 ([facility]) Insulin Syringe-Needle U-100 31G X 5/16" 0.5 ML Insuli n Syringe-Needle U-100 31G X 5/16" 0.5 ML 10/21/2020 12:00:00 AM EDT ac tive Insulin Syringe- Needle U-100 31G X 5/16" 0.5 ML eCW1 ([facility]) Glucagon 1 MG Injection Glucagon Emergency 1 MG Glucagon Dede rgency 1 MG 10/21/2020 12:00:00 AM EDT active Glucagon Emergency 1 MG eCW1 ([facility]) 125 mg 10/06/2020 12:00:00 AM EDT capsule 80 TAKE TWO CAPSULES BY MOUTH FOUR TIMES A DAY DIRECTED TAKE TWO CAPSULES BY MOUTH FOUR TIMES A DAY DIRECTED SOLD: 10/06/2020 [facility] Atropine Sulfate 0.025 MG / Diphenoxylat e Hydrochloride 2.5 MG Oral Tablet 2.5- 0.025 mg DIPHENOXYLATE HCL/ATROPINE 10/04/2020 12:00:00 AM EDT tablet 16 TAKE TWO TABLETS BY MOUTH EVERY 6 HOURS NEEDED FOR CONTROL OF DIARRHEA MAXIMUM DAILY DOSE = 8 TABLETS TAKE TWO TABLETS BY MOUTH EVERY 6 HOURS NEEDED FOR CONTROL OF DIARRHEA MAXIMUM DAILY DOSE = 8 TABLETS SOLD: 10/04/2020 [facility] 300 mg 09/26/2020 12:00:00 AM EDT capsule 14 TAKE ONE CAPSULE BY MOUTH TWICE A DAY TAKE ONE CAPSULE BY MOUTH TWICE A DAY SOLD: 09/26/2020 [facility] Amoxicillin 875 MG / Clavulanate 125 MG Oral Tablet Amoxicillin-Pot Clavulanate 875-125 MG Amoxicillin-Pot Clavulanate 875-125 MG 09/01/2020 12:00:00 AM ED T 1.0 {tablet} active Amoxicillin-Pot Cla vulanate 875-125 MG eCW1 ([facility]) Bacid - Bacid - 09/01/2020 12:00:00 AM EDT active Bacid - eCW1 ([facility]) Amoxicillin 875 MG / Clavulanate 125 MG Oral Tablet 87 5-125 mg AMOXICILLIN/POTASSIUM CLAV 09/01/2020 12:00:00 AM EDT tablet 20 TAKE ONE TABLET BY MOUTH EVERY 12 HOURS FOR 10 DAYS TAKE ONE TABLET BY MOUTH EVERY 12 HOURS FOR 10 DAYS SOLD: 09/01/2020 [facility] Amoxicillin 875 MG / Clavulanate 125 MG Oral Tablet Amoxicillin-Pot Clavulanate 875-125 MG Amoxicillin-Pot Clavulanate 875-125 MG 09/01/2020 12:00:00 AM ED T 1.0 {tablet} suspended Amoxicillin-Pot C lavulanate 875-125 MG eCW1 ([facility]) Amoxicillin 875 MG / Clavulanate 125 MG Oral Tablet Amoxicillin-Pot Clavulanate 875-125 MG Amoxicillin-Pot Clavulanate 875-125 MG 09/01/2020 12:00:00 AM ED T 1.0 {tablet} suspended Amoxicillin-Pot C lavulanate 875-125 MG eCW1 ([facility]) Bacid - Bacid - 09/01/2020 12:00:00 AM EDT active Bacid - eCW1 ([facility]) Bacid - Bacid - 09/01/2020 12:00:00 AM EDT active Bacid - eCW1 ([facility]) Amoxicillin 875 MG / Clavulanate 125 MG Oral Tablet Amoxicillin-Pot Clavulanate 875-125 MG Amoxicillin-Pot Clavulanate 875-125 MG 09/01/2020 12:00:00 AM ED T 1.0 {tablet} suspended Amoxicillin-Pot C lavulanate 875-125 MG eCW1 ([facility]) Amoxicillin 875 MG / Clavulanate 125 MG Oral Tablet Amoxicillin-Pot Clavulanate 875-125 MG Amoxicillin-Pot Clavulanate 875-125 MG 09/01/2020 12:00:00 AM ED T 1.0 {tablet} active Amoxicillin-Pot Cla vulanate 875-125 MG eCW1 ([facility]) Bacid - Bacid - 09/01/2020 12:00:00 AM EDT active Bacid - eCW1 ([facility]) Bacid - Bacid - 09/01/2020 12:00:00 AM EDT active Bacid - eCW1 ([facility]) Bacid - Bacid - 09/01/2020 12:00:00 AM EDT active Bacid - eCW1 ([facility]) Amoxicillin 875 MG / Clavulanate 125 MG Oral Tablet Amoxicillin-Pot Clavulanate 875-125 MG Amoxicillin-Pot Clavulanate 875-125 MG 09/01/2020 12:00:00 AM ED T 1.0 {tablet} active Amoxicillin-Pot Cla vulanate 875-125 MG eCW1 ([facility]) FreeStyle Jaquan 14 Day [place] - FreeStyle Jaquan 14 Day Reade r - 07/05/2020 12:00:00 AM EDT suspended FreeS tyle Jaquan 14 Day [facility] - eCW1 ([facility]) FreeStyle Jaquan 14 Day [facility] - FreeStyle Jaquan 14 Day Reade r 07/05/2020 12:00:00 AM EDT active FreeStyl e Jaquan 14 Day [place] - eCW1 ([facility]) FreeStyle Jaquan 14 Day [place] - FreeStyle Jaquan 14 Day Reade r 07/05/2020 12:00:00 AM EDT suspended FreeS tyle Jaquan 14 Day [place] - eCW1 ([facility]) FreeStyle Jaquan 14 Day [place] - FreeStyle Jaquan 14 Day Reade r 07/05/2020 12:00:00 AM EDT active FreeStyl e Jaquan 14 Day [place] - eCW1 ([facility]) FreeStyle Jaquan 14 Day [place] - FreeStyle Jaquan 14 Day Reade r 07/05/2020 12:00:00 AM EDT active FreeStyl e Jaquan 14 Day [place] - eCW1 ([facility]) FreeStyle Jaquan 14 Day [place] - FreeStyle Jaquan 14 Day Reade r 07/05/2020 12:00:00 AM EDT suspended FreeS tyle Jaquan 14 Day [place] - eCW1 ([facility]) FreeStyle Jaquan 14 Day [place] - FreeStyle Jaquan 14 Day Reade r 07/05/2020 12:00:00 AM EDT suspended FreeS tyle Jaquan 14 Day [place] - eCW1 ([facility]) FreeStyle Jaquan 14 Day [place] - FreeStyle Jaquan 14 Day Reade r 07/05/2020 12:00:00 AM EDT active FreeStyl e Jaquan 14 Day [place] - eCW1 ([facility]) FreeStyle Jaquan 14 Day [place] - FreeStyle Jaquan 14 Day Reade r 07/05/2020 12:00:00 AM EDT active FreeStyl e Jaquan 14 Day [place] - eCW1 ([facility]) FreeStyle Jaquan 14 Day [place] - FreeStyle Jaquan 14 Day Reade r 07/05/2020 12:00:00 AM EDT active FreeStyl e Jaquan 14 Day [place] - eCW1 ([facility]) FreeStyle Jaquan 14 Day [place] - FreeStyle Jaquan 14 Day Reade r 07/05/2020 12:00:00 AM EDT suspended FreeS tyle Jaquan 14 Day [place] - eCW1 ([facility]) FreeStyle Jaquan 14 Day [facility] - FreeStyle Jaquan 14 Day Reade r 07/05/2020 12:00:00 AM EDT suspended FreeS tyle Jaquan 14 Day [place] - eCW1 ([facility]) FreeStyle Jaquan 14 Day [place] - FreeStyle Jaquan 14 Day Reade r 07/05/2020 12:00:00 AM EDT suspended FreeS tyle Jaquan 14 Day [place] - eCW1 ([facility]) FreeStyle Jaquan 14 Day [place] - FreeStyle Jaquan 14 Day Reade r 07/05/2020 12:00:00 AM EDT active FreeStyl e Jaquan 14 Day [place] - eCW1 ([facility]) FreeStyle Jaquan 14 Day [place] - FreeStyle Jaquan 14 Day Reade r 07/05/2020 12:00:00 AM EDT suspended FreeS tyle Jaquan 14 Day [place] - eCW1 ([facility]) FreeStyle Jaquan 14 Day [place] - FreeStyle Jaquan 14 Day Reade r 07/05/2020 12:00:00 AM EDT suspended FreeS tyle Jaquan 14 Day [place] - eCW1 ([facility]) FreeStyle Jaquan 14 Day [facility] - FreeStyle Jaquan 14 Day Reade r 07/05/2020 12:00:00 AM EDT active FreeStyl e Jaquan 14 Day [place] - eCW1 ([facility]) FreeStyle Jaquan 14 Day [place] - FreeStyle Jaquan 14 Day Reade r 07/05/2020 12:00:00 AM EDT active FreeStyl e Jaquan 14 Day [place] - eCW1 ([facility]) FreeStyle Jaquan 14 Day [place] - FreeStyle Jaquan 14 Day Reade r - 07/05/2020 12:00:00 AM EDT suspended FreeS tyle Jaquan 14 Day [place] - eCW1 ([facility]) FreeStyle Jaquan 14 Day [facility] - FreeStyle Jaquan 14 Day Reade r - 07/05/2020 12:00:00 AM EDT active FreeStyl e Jaquan 14 Day [place] - eCW1 ([facility]) FreeStyle Jaquan 14 Day [place] - FreeStyle Jaquan 14 Day Reade r 07/05/2020 12:00:00 AM EDT suspended FreeS tyle Jaquan 14 Day [place] - eCW1 ([facility]) 24 HR metoprolol succinate 50 MG Extended Release Oral Tablet Metoprolol Succinate ER 05/31/2020 12:00:00 AM EST ORAL active MEDENT ([facility]) Sucralfate 1000 MG Oral Tablet Sucralfate 05/30/2020 12:00:00 AM EST active MEDENT ([facility]) pantoprazole 40 MG Delayed Release Oral Tablet Pantoprazole Sodium 05/30/2020 12:00:00 AM EST active M EDENT ([facility]) Sucralfate 1000 MG Oral Tablet Sucralfate 05/30/2020 12:00:00 AM EST ORAL active MEDENT ([facility]) pantoprazole 40 MG Delayed Release Oral Tablet Pantoprazole Sodium 05/30/2020 12:00:00 AM EST ORAL active M EDENT ([facility]) Furosemide 20 MG Oral Tablet Furosemide 05/30/2020 12:00:00 AM EST ORAL active MEDENT ([facility]) insulin detemir 100 UNT/ML Injectable Solution [Levemir] Lev nila 05/30/2020 12:00:00 AM EST SUBCUTANEOUS active MEDENT ([facility]) 20 mg 05/23/2020 12:00:00 AM EST tablet 30 TAKE 1 TABLET BY MOUTH ONCE DAILY TAKE 1 TABLET BY MOUTH ONCE DAILY SOLD: 05/23/2020 [facility] Glipizide 5 MG Oral Tablet glipiZIDE (GLUCOTROL) 5 MG tablet glipiZIDE (GLUCOTROL) 5 MG tablet 05/16/2020 12:00:00 AM EST 5 mg Oral active Take 1 tablet (5 mg total) by mouth 2 (two) times a day before meals [facility] sodium chloride 0.9% (NS) infusion 6004-4922-06 05/15/2020 11:00:00 A M EST Intravenous active at 75 mL/hr, Intravenous, Continuous, Starting 05/15/20 at 1100 [facility] Medication administered onsite potassium chloride (KLOR-CON) packet 40 mEq 0097-5685-87 05/15/2020 11:00:00 AM EST 40 meq Oral completed 40 mEq , Oral, Once, 05/15/20 at 1100, For 1 dose [facility] Medication administered onsite furosemide (LASIX) injection 20 mg [id number] 05/15/2020 09:00:00 AM EST 20 mg Intravenous aborted 20 mg, I ntravenous, LOOPBID, First dose on 05/15/20 at 0900 [facility] Medication administered onsite pantoprazole 40 MG Delayed Release Oral Tablet pantoprazole (PROTONIX) EC tablet 40 mg pantoprazole (PROTONIX) EC tablet 40 mg 05/15/2020 09:00:[address] 40 mg Oral active Gastroesophageal Reflux Diseas e 40 mg, Oral, Daily, Indications: Gastroesophageal Reflux Disease, First dose on 05/15/20 at 0900 [facility] Gastroesophageal Reflux Disease Medication administered onsite 24 HR Isosorbide Mononitrate 30 MG Exten ded Release Oral Tablet isosorbide mononitrate (IMDUR) 24 hr tablet 30 mg isosorbide mononitrate (IMDUR) 24 hr tablet 30 mg 05/15/2020 09:00:00 AM EST 30 mg Oral activ e 30 mg, Oral, Daily, First dose on 05/15/20 at 0900 [facility] Medication administered onsite duloxetine 60 MG Delayed Release Oral Ca psule DULoxetine (CYMBALTA) DR capsule 60 mg DULoxetine (CYMBALTA) DR capsule 60 mg 05/15/2020 09:00:00 AM EST 60 mg Oral active 60 mg, Oral, Daily, First dose on 05/15/20 at 0900 [facility] Medication administered onsite Aspirin 81 MG Delayed Release Oral Tablet aspirin EC t ablet 81 mg aspirin EC tablet 81 mg 05/15/2020 09:00:00 AM EST 81 mg Oral activ e 81 mg, Oral, Daily, First dose on 05/15/20 at 0900 [facility] Medication administered onsite Insulin Lispro 100 UNT/ML Injectable Shannon ution insulin lispro (HumaLOG) injection 1-2 Units insulin lispro (HumaLOG) injection 1-2 Units 08:00:00 AM EST Subcutaneous active 1-2 Units, Subcutaneous, MEALSS, First dose on 05/15/20 at 0800
1 units Nutritional and Correction Insulin Scale Blood Glucose (mg/dl) <70 start hypoglycemia protocol Glucose &nbsp ; Eats >=50% Eats <50%& amp;nbsp; Eats Nothing (mg/dl) of meal of meal or NPO &a mp;nbsp;70- 120 1 units 1 units 0 units 121-170 1 units 1 units 0 units 171-220 &amp ;nbsp; 1 units 1 units 0 units 221-270 &nbs p; 1 units 1 units 0 units 271- 320 2 units 1 units 1 units 321- 370 2 units 1 units 1 units & nbsp;371- 420 2 units 1 units 1 units >420 call MD 2 units 2 units 1 units Test glucose within 30 minutes of insulin administration. Administer insulin within 15 minutes (before or after) of the patient starting to eat. For patients that are NPO, use the NPO (correction) scale to cover POC glucose at 08:00, 12:00, 17:00.
[facility] Medication administered onsite Nitroglycerin 0.02 MG/MG Topical Ointmen t nitroglycerin (NITROSTAT) 2 % ointment 0.5 inch nitroglycerin (NITROSTAT) 2 % ointment 0.5 inch 2020 12:00:00 AM EST 0.5 g Topical active 0.5 inch (0.5 g), Topical, Every 6 hours (scheduled), First dose on Sun05/15/20 at 0000
1 inch = 1 gram
[facility] Medication administered onsite normal saline flush 0.9 % injection 3 mL [id number] 05/14/2020 10:00:00 PM EST 3 mL Intravenous active 3 mL , Intravenous, Every 8 hours (scheduled), First dose on Sun05/14/20 at 2200
Rapid push positive pressure flushing shall be performed with a 10 cc normal saline syringe to check the PATENCY of a PIV site prior to any infusion therapy initiation unless resistance is met.
[facility] Medication administered onsite Ticagrelor 90 MG Oral Tablet ticagrelor (BRILINTA) tab let 90 mg ticagrelor (BRILINTA) tablet 90 mg 05/14/2020 10:00:00 PM EST 90 mg Oral active 90 mg, Oral, 2 times daily, First dose on Sun05/14/20 at 2200 [facility] Medication administered onsite 12 HR ranolazine 500 MG Extended Release Oral Tablet ranolazine (RANEXA) 12 hr tablet 500 mg ranolazine (RANEXA) 12 hr tablet 500 mg 05/14/2020 10: 00:00 PM EST 500 mg Oral active 500 mg, Oral, 2 times daily, First dose on Sun05/14/20 at 2200 [facility] Medication administered onsite magnesium oxide (MAG-OX) tablet 400 mg [id number] 10:00:00 PM EST 400 mg Oral active 400 mg, Oral, 2 times daily, First dose on Sun05/14/20 at 2200 [facility] Medication administered onsite gabapentin 800 MG Oral Tablet gabapentin (NEURONTIN) t ablet 800 mg gabapentin (NEURONTIN) tablet 800 mg 05/14/2020 10:00:00 PM EST 800 mg Oral active 800 mg, Oral, Nightly, First dose on Sun05/14/20 at 22 00 [facility] Medication administered onsite carvedilol 6.25 MG Oral Tablet carvedilol (COREG) tabl et 12.5 mg carvedilol (COREG) tablet 12.5 mg 05/14/2020 10:00:00 PM EST 12.5 mg Oral active 12.5 mg, Oral, 2 times daily, First dose on Sun05/14/20 at 2200 [facility] Medication administered onsite atorvastatin 80 MG Oral Tablet atorvastatin (LIPITOR) tablet 80 mg atorvastatin (LIPITOR) tablet 80 mg 05/14/2020 10:00:00 PM EST 80 mg Oral active 80 mg, Oral, Nightly, First dose on Sun05/14/20 at 2200 [facility] Medication administered onsite normal saline flush 0.9 % injection 3 mL [id number] 05/14/2020 10:00:00 PM EST 3 mL Intravenous active 3 mL , Intravenous, Every 8 hours (scheduled), First dose on Sun05/14/20 at 2200
flush per protocol, D/C Main IV fluid if appropriate
[facility] Medication administered onsite Nitroglycerin 0.4 MG Sublingual Tablet n itroglycerin (NITROSTAT) SL tablet 0.4 mg nitroglycerin (NITROSTAT) SL tablet 0.4 mg 05/14/2020 09:10:25 P M EST 0.4 mg Sublingual active 0.4 mg, S ublingual, Every 5 min PRN, chest pain, Starting Sun05/14/20 at 2110
May administer up to 3 doses per episode.
[facility] Medication administered onsite ondansetron (ZOFRAN) injection 4 mg [id number] 05/14/2020 08:07:3 8 PM EST 4 mg Intravenous active 4 mg, In travenous, Every 6 hours PRN, nausea, vomiting, Starting Sun05/14/20 at 2006 [facility] Medication administered onsite Acetaminophen 325 MG Oral Tablet acetaminophen (TYLENO L) 325 MG tablet 650 mg acetaminophen (TYLENOL) 325 MG tablet 650 mg 05/14/2020 08:07:32 PM EST 650 mg Oral active 650 mg, Or al, Every 8 hours PRN, mild pain (1-3), headaches, Starting Sun05/14/20 at 2006
"Maximum dose of acetaminophen is 4,000 mg from all sources in 24 hours."
[facility] Medication administered onsite 1 ML heparin sodium, porcine 1000 UNT/ML Injection heparin (porcine) injection 3,600 Units heparin (porcine) injection 3,600 Units 05/14/2020 08:00:00 PM EST 60 U/kg Intravenous completed 3,600 Unit s (rounded from 3,564 Units = 60 Units/kg 59.4 kg), Intravenous, Once, Sun05/14/20 at 2000, For 1 dose
Do not exceed 5,000 units or 60 units/kg (whichever is less)
[facility] Medication administered onsite 500 ML heparin sodium, porcine 50 UNT/ML Injection heparin infusion 25,000 units in 500 mL 0.45% NaCl heparin infusion 25,000 units in 500 mL 0.45% NaCl 05/14/2020 08:00:00 PM EST 16.78 U/kg/h Intravenous acti ve 16.78 Units/kg/hr 59.4 kg (19.9346 mL/hr, rounded to 19.9 mL/hr), Intravenous, at 19.9 mL/hr, Continuous, Starting Sun05/14/20 at 2000
For Cardiac/BridgeaPTT (seconds) Heparin Dose (weight based)< 34 Bolus: 60 units/kg IV (Maximum bolus: 5,000 units) and increase infusion 3 units/kg/hr IV34 - 50 Bolus: 30 units/kg IV (Maximum bolus: 5,000 units) and increase infusion 2 units/kg/hr IV50.1 - 58 No bolus. Increase infusion 1 unit/kg/hr IV58.1 - 87 Therapeutic, No [id number] - 97 Decrease infusion 1 unit/kg/hr IV [...] single port tubing (SmartSite Infusion Set ref [id number]). Medication and tubing is to be discarded if infusion off for 4 hours.
[facility] Medication administered onsite 1 ML heparin sodium, porcine 1000 UNT/ML Injection heparin (porcine) injection 100-5,000 Units heparin (porcine) injection 100-5,000 Units 05/14/2020 06:57:02 PM EST Intravenous active 100- 5,000 Units, Intravenous, As needed, other, Starting Sun05/14/20 at 1857
Round dose to nearest 100 units aPTT: < 34 &n bsp; Bolus: 60 units/kg IV (Maximum bolus: 5,000 units) 34 - 50 Bolus: 30 units/kg IV (Maximum bolus: 5,000 units)
[facility] Medication administered onsite Acetaminophen 325 MG / Hydrocodone Renetta trate 10 MG Oral Tablet Hydrocodone- Acetaminophen 10-325 MG Hydrocodone-Acetaminophen 10-325 MG 03/16/2020 12:00:0 0 AM EST 1.0 {tablet_as_needed} suspended Hydrocodone-Acetaminophen 10-325 MG eCW1 ([facility]) Acetaminophen 325 MG / Hydrocodone Renetta trate 10 MG Oral Tablet Hydrocodone- Acetaminophen 10-325 MG Hydrocodone-Acetaminophen 10-325 MG 03/16/2020 12:00:0 0 AM EST 1.0 {tablet_as_needed} suspended Hydrocodone-Acetaminophen 10-325 MG eCW1 ([facility]) Acetaminophen 325 MG / Hydrocodone Renetta trate 10 MG Oral Tablet Hydrocodone- Acetaminophen 10-325 MG Hydrocodone-Acetaminophen 10-325 MG 03/16/2020 12:00:0 0 AM EST 1.0 {tablet_as_needed} suspended Hydrocodone-Acetaminophen 10-325 MG eCW1 ([facility]) Acetaminophen 325 MG / Hydrocodone Renetta trate 10 MG Oral Tablet Hydrocodone- Acetaminophen 10-325 MG Hydrocodone-Acetaminophen 10-325 MG 03/16/2020 12:00:0 0 AM EST 1.0 {tablet_as_needed} suspended Hydrocodone-Acetaminophen 10-325 MG eCW1 ([facility]) Acetaminophen 325 MG / Hydrocodone Renetta trate 10 MG Oral Tablet HYDROcodone- Acetaminophen 10-325 MG HYDROcodone-Acetaminophen 10-325 MG 03/16/2020 12:00:0 0 AM EST 1.0 {tablet_as_needed} suspended HYDROcodone-Acetaminophen 10-325 MG eCW1 ([facility]) Acetaminophen 325 MG / Hydrocodone Renetta trate 10 MG Oral Tablet Hydrocodone- Acetaminophen 10-325 MG Hydrocodone-Acetaminophen 10-325 MG 03/16/2020 12:00:0 0 AM EST 1.0 {tablet_as_needed} suspended Hydrocodone-Acetaminophen 10-325 MG eCW1 ([facility]) Acetaminophen 325 MG / Hydrocodone Renetta trate 10 MG Oral Tablet Hydrocodone- Acetaminophen 10-325 MG Hydrocodone-Acetaminophen 10-325 MG 03/16/2020 12:00:0 0 AM EST 1.0 {tablet_as_needed} suspended Hydrocodone-Acetaminophen 10-325 MG eCW1 ([facility]) Acetaminophen 325 MG / Hydrocodone Renetta trate 10 MG Oral Tablet HYDROcodone- Acetaminophen 10-325 MG HYDROcodone-Acetaminophen 10-325 MG 03/16/2020 12:00:0 0 AM EST 1.0 {tablet_as_needed} suspended HYDROcodone-Acetaminophen 10-325 MG eCW1 ([facility]) Acetaminophen 325 MG / Hydrocodone Renetta trate 10 MG Oral Tablet Hydrocodone- Acetaminophen 10-325 MG Hydrocodone-Acetaminophen 10-325 MG 03/16/2020 12:00:0 0 AM EST 1.0 {tablet_as_needed} suspended Hydrocodone-Acetaminophen 10-325 MG eCW1 ([facility]) Acetaminophen 325 MG / Hydrocodone Renetta trate 10 MG Oral Tablet Hydrocodone- Acetaminophen 10-325 MG Hydrocodone-Acetaminophen 10-325 MG 03/16/2020 12:00:0 0 AM EST 1.0 {tablet_as_needed} suspended Hydrocodone-Acetaminophen 10-325 MG eCW1 ([facility]) Acetaminophen 325 MG / Hydrocodone Renetta trate 10 MG Oral Tablet Hydrocodone- Acetaminophen 10-325 MG Hydrocodone-Acetaminophen 10-325 MG 03/16/2020 12:00:0 0 AM EST 1.0 {tablet_as_needed} active Hydrocodone-Acetaminophen 10- 325 MG eCW1 ([facility]) Acetaminophen 325 MG / Hydrocodone Renetta trate 10 MG Oral Tablet Hydrocodone- Acetaminophen 10-325 MG Hydrocodone-Acetaminophen 10-325 MG 03/16/2020 12:00:0 0 AM EST 1.0 {tablet_as_needed} suspended Hydrocodone-Acetaminophen 10-325 MG eCW1 ([facility]) Acetaminophen 325 MG / Hydrocodone Renetta trate 10 MG Oral Tablet Hydrocodone- Acetaminophen 10-325 MG Hydrocodone-Acetaminophen 10-325 MG 03/16/2020 12:00:0 0 AM EST 1.0 {tablet_as_needed} active Hydrocodone-Acetaminophen 10- 325 MG eCW1 ([facility]) Acetaminophen 325 MG / Hydrocodone Renetta trate 10 MG Oral Tablet Hydrocodone- Acetaminophen 10-325 MG Hydrocodone-Acetaminophen 10-325 MG 03/16/2020 12:00:0 0 AM EST 1.0 {tablet_as_needed} suspended Hydrocodone-Acetaminophen 10-325 MG eCW1 ([facility]) Acetaminophen 325 MG / Hydrocodone Renetta trate 10 MG Oral Tablet Hydrocodone- Acetaminophen 10-325 MG Hydrocodone-Acetaminophen 10-325 MG 03/16/2020 12:00:0 0 AM EST 1.0 {tablet_as_needed} suspended Hydrocodone-Acetaminophen 10-325 MG eCW1 ([facility]) Acetaminophen 325 MG / Hydrocodone Renetta trate 10 MG Oral Tablet Hydrocodone- Acetaminophen 10-325 MG Hydrocodone-Acetaminophen 10-325 MG 03/16/2020 12:00:0 0 AM EST 1.0 {tablet_as_needed} suspended Hydrocodone-Acetaminophen 10-325 MG eCW1 ([facility]) Acetaminophen 325 MG / Hydrocodone Renetta trate 10 MG Oral Tablet Hydrocodone- Acetaminophen 10-325 MG Hydrocodone-Acetaminophen 10-325 MG 03/16/2020 12:00:0 0 AM EST 1.0 {tablet_as_needed} suspended Hydrocodone-Acetaminophen 10-325 MG eCW1 ([facility]) Acetaminophen 325 MG / Hydrocodone Renetta trate 10 MG Oral Tablet Hydrocodone- Acetaminophen 10-325 MG Hydrocodone-Acetaminophen 10-325 MG 03/16/2020 12:00:0 0 AM EST 1.0 {tablet_as_needed} suspended Hydrocodone-Acetaminophen 10-325 MG eCW1 ([facility]) Acetaminophen 325 MG / Hydrocodone Renetta trate 10 MG Oral Tablet Hydrocodone- Acetaminophen 10-325 MG Hydrocodone-Acetaminophen 10-325 MG 03/16/2020 12:00:0 0 AM EST 1.0 {tablet_as_needed} suspended Hydrocodone-Acetaminophen 10-325 MG eCW1 ([facility]) Acetaminophen 325 MG / Hydrocodone Renetta trate 10 MG Oral Tablet Hydrocodone- Acetaminophen 10-325 MG Hydrocodone-Acetaminophen 10-325 MG 03/16/2020 12:00:0 0 AM EST 1.0 {tablet_as_needed} suspended Hydrocodone-Acetaminophen 10-325 MG eCW1 ([facility]) Acetaminophen 325 MG / Hydrocodone Renetta trate 10 MG Oral Tablet Hydrocodone- Acetaminophen 10-325 MG Hydrocodone-Acetaminophen 10-325 MG 03/16/2020 12:00:0 0 AM EST 1.0 {tablet_as_needed} suspended Hydrocodone-Acetaminophen 10-325 MG eCW1 ([facility]) Acetaminophen 325 MG / Hydrocodone Renetta trate 10 MG Oral Tablet Hydrocodone- Acetaminophen 10-325 MG Hydrocodone-Acetaminophen 10-325 MG 03/16/2020 12:00:0 0 AM EST 1.0 {tablet_as_needed} suspended Hydrocodone-Acetaminophen 10-325 MG eCW1 ([facility]) Acetaminophen 325 MG / Hydrocodone Renetta trate 10 MG Oral Tablet Hydrocodone- Acetaminophen 10-325 MG Hydrocodone-Acetaminophen 10-325 MG 03/16/2020 12:00:0 0 AM EST 1.0 {tablet_as_needed} suspended Hydrocodone-Acetaminophen 10-325 MG eCW1 ([facility]) Acetaminophen 325 MG / Hydrocodone Renetta trate 10 MG Oral Tablet Hydrocodone- Acetaminophen 10-325 MG Hydrocodone-Acetaminophen 10-325 MG 03/16/2020 12:00:0 0 AM EST 1.0 {tablet_as_needed} active Hydrocodone-Acetaminophen 10- 325 MG eCW1 ([facility]) Acetaminophen 325 MG / Hydrocodone Renetta trate 10 MG Oral Tablet Hydrocodone- Acetaminophen 10-325 MG Hydrocodone-Acetaminophen 10-325 MG 03/16/2020 12:00:0 0 AM EST 1.0 {tablet_as_needed} suspended Hydrocodone-Acetaminophen 10-325 MG eCW1 ([facility]) Acetaminophen 325 MG / Hydrocodone Renetta trate 10 MG Oral Tablet HYDROcodone- Acetaminophen 10-325 MG HYDROcodone-Acetaminophen 10-325 MG 03/16/2020 12:00:0 0 AM EST 1.0 {tablet_as_needed} suspended HYDROcodone-Acetaminophen 10-325 MG eCW1 ([facility]) Acetaminophen 325 MG / Hydrocodone Renetta trate 10 MG Oral Tablet Hydrocodone- Acetaminophen 10-325 MG Hydrocodone-Acetaminophen 10-325 MG 03/16/2020 12:00:0 0 AM EST 1.0 {tablet_as_needed} suspended Hydrocodone-Acetaminophen 10-325 MG eCW1 ([facility]) Acetaminophen 325 MG / Hydrocodone Renetta trate 10 MG Oral Tablet Hydrocodone- Acetaminophen 10-325 MG Hydrocodone-Acetaminophen 10-325 MG 03/16/2020 12:00:0 0 AM EST 1.0 {tablet_as_needed} suspended Hydrocodone-Acetaminophen 10-325 MG eCW1 ([facility]) Acetaminophen 325 MG / Hydrocodone Renetta trate 10 MG Oral Tablet Hydrocodone- Acetaminophen 10-325 MG Hydrocodone-Acetaminophen 10-325 MG 03/16/2020 12:00:0 0 AM EST 1.0 {tablet_as_needed} suspended Hydrocodone-Acetaminophen 10-325 MG eCW1 ([facility]) Magnesium 02/29/2020 12:00:00 AM EST ORAL active [facility] ([facility]) Metformin hydrochloride 1000 MG Oral Tablet Metformin HCL 02/29/2020 12:00:00 AM EST ORAL completed [facility] ([facility]) ferrous sulfate 325 MG Oral Tablet Iron 02/29/2020 12:00:00 AM EST ORAL active [facility] ([facility]) Omeprazole 20 MG Delayed Release Oral Capsule Omeprazole 02/29/2020 12:00:00 AM EST ORAL completed [facility] ([facility]) Omeprazole 20 MG Delayed Release Oral Capsule Omeprazole 20 MG 01/22/2020 12:00:00 AM EDT active Omeprazo le 20 MG eCW1 ([facility]) Omeprazole 20 MG Delayed Release Oral Capsule Omeprazole 20 MG 01/22/2020 12:00:00 AM EDT active Omeprazo le 20 MG eCW1 ([facility]) Omeprazole 20 MG Delayed Release Oral Capsule Omeprazole 20 MG 01/22/2020 12:00:00 AM EDT active Omeprazo le 20 MG eCW1 ([facility]) Omeprazole 20 MG Delayed Release Oral Capsule Omeprazole 20 MG 01/22/2020 12:00:00 AM EDT active Omeprazo le 20 MG eCW1 ([facility]) Omeprazole 20 MG Delayed Release Oral Capsule Omeprazole 20 MG 01/22/2020 12:00:00 AM EDT active Omeprazo le 20 MG eCW1 ([facility]) Omeprazole 20 MG Delayed Release Oral Capsule Omeprazole 20 MG 01/22/2020 12:00:00 AM EDT active Omeprazo le 20 MG eCW1 ([facility]) Omeprazole 20 MG Delayed Release Oral Capsule Omeprazole 20 MG 01/22/2020 12:00:00 AM EDT active Omeprazo le 20 MG eCW1 ([facility]) Omeprazole 20 MG Delayed Release Oral Capsule Omeprazole 20 MG 01/22/2020 12:00:00 AM EDT active Omeprazo le 20 MG eCW1 ([facility]) Omeprazole 20 MG Delayed Release Oral Capsule Omeprazole 20 MG 01/22/2020 12:00:00 AM EDT active Omeprazo le 20 MG eCW1 ([facility]) Omeprazole 20 MG Delayed Release Oral Capsule Omeprazole 20 MG 01/22/2020 12:00:00 AM EDT active Omeprazo le 20 MG eCW1 ([facility]) Omeprazole 20 MG Delayed Release Oral Capsule Omeprazole 20 MG 01/22/2020 12:00:00 AM EDT active Omeprazo le 20 MG eCW1 ([facility]) Omeprazole 20 MG Delayed Release Oral Capsule Omeprazole 20 MG 01/22/2020 12:00:00 AM EDT active Omeprazo le 20 MG eCW1 ([facility]) Magnesium 11/27/2019 12:00:00 AM EDT ORAL complete d [facility] ([facility]) pantoprazole 40 MG Delayed Release Oral Tablet pantoprazole (PROTONIX) 40 MG tablet pantoprazole (PROTONIX) 40 MG tablet 11/26/2019 12:00:00 AM EDT 40 mg Oral aborted Take 1 tablet (40 mg total) by mouth daily [facility] Metformin hydrochloride 1000 MG Oral Tab let metFORMIN (GLUCOPHAGE) 1000 MG tablet metFORMIN (GLUCOPHAGE) 1000 MG tablet 10/15/2019 12:00:00 AM EDT 1000 mg Oral aborted Take 1 tab let (1,000 mg total) by mouth daily with breakfast [facility] Metformin hydrochloride 1000 MG Oral Tab let metFORMIN (GLUCOPHAGE) 1000 MG tablet metFORMIN (GLUCOPHAGE) 1000 MG tablet 10/15/2019 12:00:00 AM EDT 1500 mg Oral aborted Take 1.5 t ablets (1,500 mg total) by mouth every evening [facility] Metformin hydrochloride 1000 MG Oral Tab let metFORMIN (GLUCOPHAGE) 1000 MG tablet metFORMIN (GLUCOPHAGE) 1000 MG tablet 1000 mg Oral aborted Take 1,000 mg by mouth 2 (two) times a day [facility] 3 ML liraglutide 6 MG/ML Pen Injector Liraglutide (BLANK TOZA) 18 MG/3ML SOPN Liraglutide (VICTOZA) 18 MG/3ML SOPN 1.8 mg Subcutaneous aborted Inject 1.8 mg under the skin daily [facility] insulin detemir 100 UNT/ML Injectable So lution insulin detemir (LEVEMIR) 100 UNIT/ML injection insulin detemir (LEVEMIR) 100 UNIT/ML injection 25 U Subcutaneous aborted Inject 25 Units u nder the skin nightly [facility] Insurance Providers Payer name Policy type / Coverage type Policy ID Covered green party ID Covered green party's relationship to erwin Policy Erwin Plan Information [facility] MEDICARE 1 [id number] 1 [id number] MEDICARE [id number] xxxxxxxxxxx [id number] MEDICARE M [id number] S [id number] A [facility] MEDICARE DIVISION [id number] S [id number] MEDICARE [place] [id number] S [id number] [facility] [employer] [id number] S [id number] [place] [id number] S [id number] MEDICARE A [id number] Self [id number] MEDICARE [id number] Sanrda [id number] [employer] [id number] S [id number] [employer] [id number] S [id number] [place] [id number] S [id number] [place] [id number] S [id number] AARP 2 [id number] [facility] [id number] xxxxxxxxxxx [id number] [facility] [id number] [facility] [id number] INSURANCE COVID-19 COVID Sandra C OVID INSURANCE COVID-19 [id number] [phone] [id number] AARP U [id number] Self [id number] AARP U [id number] Self [id number] Medicare Dme Medigap Part B [id number] Self [id number] A[employer] Insurance Medigap Part B [id number] Self 3 [id number] 11 Medicare Medicare Primary [id number] [id number]. [id number] Self [id number] Medicare Dme Medigap Part B [id number] .[id number] Self [id number] [employer] Insurance Medigap Part B [id number] Self 3 [id number] 11 Medicare Medicare Primary [id number] [id number]. [id number] Self [id number] A[employer] HE[employer] CARE OPTIONS [id number] MEDICARE [id number] A [employer] Insurance Medigap Part B [id number] 11 [id number] Self 3 [id number] 11 Medicare Medicare Primary [id number] [id number]. [id number] Self [id number] [employer] Insurance Medigap Part B [id number] Self 3 [id number] 11 Medicare Medicare Primary [id number] [id number]. [id number] Self [id number] [employer] Insurance Medigap Part B [id number] Self 3 [id number] 11 Medicare Medicare Primary [id number] [id number]. [id number] Self [id number] [employer] Insurance Medigap Part B [id number] 11 [id number] Self 3 [id number] 11 Medicare Medicare Primary [id number] [id number]. [id number] Self [id number] AAR HEALTH CARE O [id number] S 3 [id number] SELF PAY UNAVAILABLE SP UNAVAILA BLE AARP HEALTH CARE OPTIONS [id number] SP [id number] MEDICARE [id number] SP [id number] [employer] OPTIONS [id number] S [id number] [employer] C[employer] OPTIONS [id number] S [id number] [employer] MED[employer] DIVISION [id number] S [id number] MEDICARE [place] [id number] S [id number] AARP O [id number] S [id number] MEDICARE C [id number] S [id number] [employer] MEDICARE DIVISION [id number] S [id number] MEDICARE [place] [id number] S [id number] Medicare Dme Medigap Part B [id number] Self [id number] [employer] Insurance Medigap Part B [id number] Self [id number] 11 Medicare Medicare Primary [id number] Self [id number] Medicare Dme Medigap Part B [id number] .[id number] Self [id number] A[employer] Insurance [facility] Part B [id number] 11 [id number] Self 3 [id number] 11 Medicare Medicare Primary [id number] [id number]. [id number] Self [id number] Medicare Dme Medigap Part B [id number] [id number] Self [id number] [employer] Insurance [facility] Part B [id number] 11 [id number] Self 3 [id number] 11 Medicare Medicare Primary [id number]. 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 Z79.899 Other manager intermediate (current) drug therapy O THER BONDING SUPERVISOR (CURRENT) DRUG THERAPY Diagnosis 10/06/2020 03:01:[address] [facility] Z79.82 manager intermediate (current) use of aspirin BONDING SUPERVISOR (CU RRENT) USE OF ASPIRIN Diagnosis 10/06/2020 03:01:00 PM [facility] Z90.49 Acquired absence of other specified part s of digestive tract ACQUIRED ABSENCE OF OTHER SPECIFIED PARTS OF DIGES Diagnosis 10/06/2020 03:01:0 0 PM [facility] Z95.5 Presence of coronary angioplasty implant and graft PRESENCE OF CORONARY ANGIOPLASTY IMPLANT AND GRAFT Diagnosis 10/06/2020 03:01:00 PM [facility] Z79.02 shelter (current) use of antithromboti cs/antiplatelets USP (CURRENT) USE OF ANTITHROMBOTICS/ANTIPLA Diagnosis 10/06/2020 03:01:00 PM [facility] A04.71 ENTEROCOLITIS DUE TO CLOSTRIDIUM DIFFICI LE, RECURR ENTEROCOLITIS DUE TO CLOSTRIDIUM DIFFICILE, RECURR Diagnosis 10/06/2020 03:01:00 PM [facility] I50.9 Heart failure, unspecified HEART FAILURE, UNSPECIFIED Diagnosis 10/06/2020 03:01:00 PM [facility] I11.0 Hypertensive heart disease with heart fa ilure HYPERTENSIVE HEART DISEASE WITH HEART FAILURE Diagnosis 10/06/2020 03:01:00 PM [facility] l E78.00 PURE HYPERCHOLESTEROLEMIA, UNSPECIFIED P URE HYPERCHOLESTEROLEMIA, UNSPECIFIED Diagnosis 10/06/2020 03:01:[address] [facility] I25.10 Atherosclerotic heart diseas e of [place] coronary artery without angina pectoris ATHSCL HEART DISEASE OF [place] CORONARY ARTERY W/O Diagnosis 10/06/2020 03:01:00 PM [facility] E11.9 Type 2 diabetes mellitus without complic ations TYPE 2 DIABETES MELLITUS WITHOUT COMPLICATIONS Diagnosis 10/06/2020 03:01:00 PM [facility] luis R19.7 Diarrhea, unspecified DIARRHEA, UNSPECIFIED Diagnosis 10/06/2020 03:01:00 PM [facility] I10 Essential (primary) hypertension ESSENTIAL (PRIMARY) H YPERTENSION Diagnosis 10/04/2020 01:50:00 PM [facility] E87.6 Hypokalemia HYPOKALEMIA Diagnosis 10/04/2020 01:50:00 PM [facility] Z86.73 Personal history of transien t ischemic attack (TIA), and cerebral infarction without residual deficits PRSNL HX OF TIA (TIA), AND CEREB INFRC W /O RESID D Diagnosis 09/23/2020 08:00:00 PM [facility] l Z20.822 CONTACT WITH AND (SUSPECTED) EXPOSURE TO COVID-19 CONTACT WITH AND (SUSPECTED) EXPOSURE TO COVID-19 Diagnosis 09/23/2020 08:00:00 PM [facility] E11.40 Type 2 diabetes mellitus with diabetic n europathy, unspecified TYPE 2 DIABETES MELLITUS WITH DIABETIC NEUROPATHY, Diagnosis 09/23/2020 08:00:00 PM [facility] K21.9 Gastro-esophageal reflux disease without esophagitis GASTRO-ESOPHAGEAL REFLUX DISEASE WITHOUT ESOPHAGIT Diagnosis 09/23/2020 08:00:00 PM [facility] G90.09 Other idiopathic peripheral autonomic ne uropathy OTHER IDIOPATHIC PERIPHERAL AUTONOMIC NEUROPATHY Diagnosis 09/23/2020 08:00:00 PM [facility] F41.9 Anxiety disorder, unspecified ANXIETY DISORDER, UNSPEC IFIED Diagnosis 09/23/2020 08:00:00 [facility] I67.1 Cerebral aneurysm, nonruptured CEREBRAL ANEURYSM, NONR UPTURED Diagnosis 09/23/2020 08:00:00 [facility] R42 Dizziness and giddiness DIZZINESS AND GIDDINESS Diagno sis 09/23/2020 08:00:00 [facility] E86.0 Dehydration DEHYDRATION Diagnosis 09/23/2020 08:00:00 [facility] R41.82 Altered mental status, unspecified ALTERED MENTA L STATUS, UNSPECIFIED Diagnosis 09/23/2020 08:00:00 [facility] N39.0 Urinary tract infection, site not specif ied URINARY TRACT INFECTION, SITE NOT SPECIFIED Diagnosis 09/23/2020 08:00:00 PM [facility] l R55 Syncope and collapse SYNCOPE AND COLLAPSE Diagnosis 09/23/2020 08:00:00 PM [facility] Y93.89 Activity, other specified ACTIVITY, OTHER SPECIFIED Di agnosis 07/24/2020 04:25:00 PM [facility] Y92.[address] the place of o ccurrence of the external cause OTH PLACES THE PLACE OF OCCURRENCE OF THE EXTER Diagnosis 06/2020 04:25:00 [facility] X50.0XXA OVEREXERTION FROM STRENUOUS MOVEMENT OR LOAD, INIT OVEREXERTION FROM STRENUOUS MOVEMENT OR LOAD, INIT Diagnosis 07/24/2020 04:25:00 PM [facility] M19.011 Primary osteoarthritis, right shoulder P RIMARY OSTEOARTHRITIS, RIGHT SHOULDER Diagnosis 07/24/2020 04:25:[address] [facility] S46.311A Strain of muscle, fascia and tendon of triceps, right arm, initial encounter STRAIN OF MUSC/FASC/TEND TRICEPS, RIGHT ARM, INIT Diagnosis 07/24/2020 04:25:00 PM [facility] S46.811A Strain of other muscles, fas rylee and tendons at shoulder and upper arm level, right arm, initial encounter STRAIN OF MUSC/FASC/TEND AT SHLDR/UP ARM , RIGHT AR Diagnosis 07/24/2020 04:25:[address] [facility] M25.511 Pain in right shoulder PAIN IN RIGHT SHOULDER Diagnosi s 07/24/2020 04:25:00 PM [facility] R04.0 Epistaxis EPISTAXIS Diagnosis 06/16/2020 02:20:00 PM [facility] I67.1 Cerebral aneurysm, nonruptured Cerebral aneurysm, nonr uptured Diagnosis 06/16/2020 08:28:[address] [facility] Z79.84 USP (CURRENT) USE OF ORAL HYPOGLYC EMIC DRUGS USP (CURRENT) USE OF ORAL HYPOGLYCEMIC DRUGS Diagnosis 05/21/2020 11:23:00 AM [facility] I25.2 Old myocardial infarction OLD MYOCARDIAL INFARCTION Di agnosis 05/21/2020 11:23:00 AM [facility] D64.9 Anemia, unspecified ANEMIA, UNSPECIFIED Diagnosis 0 05/21/2020 11:23:00 AM [facility] E87.5 Hyperkalemia HYPERKALEMIA Diagnosis 05/21/2020 11:23:00 A [facility] N18.30 CHRONIC KIDNEY DISEASE, STAGE 3 UNSPECIF IED CHRONIC KIDNEY DISEASE, STAGE 3 UNSPECIFIED Diagnosis 05/21/2020 11:23:00 AM [facility] I50.31 Acute diastolic (congestive) heart failu re ACUTE DIASTOLIC (CONGESTIVE) HEART FAILURE Diagnosis 05/21/2020 11:23:00 AM [facility] I13.0 Hypertensive heart and chron ic kidney disease with heart failure and stage 1 through stage 4 chronic kidney disease, or unspecified chronic kidney disease HYP HRT CHR KDNY DIS W HRT FAIL AND STG 1-4/UNSP Diagnosis 05/21/2020 11:23:00 AM [facility] J96.01 Acute respiratory failure with hypoxia A CUTE RESPIRATORY FAILURE WITH HYPOXIA Diagnosis 05/21/2020 11:23:00 AM [facility] R06.00 Dyspnea, unspecified DYSPNEA, UNSPECIFIED Diagnosis 05/21/2020 11:23:00 AM [facility] I20.9 Angina pectoris, unspecified Angina pectoris, unspecif ied Diagnosis 05/14/2020 07:00:47 PM [facility] I21.4 Non-ST elevation (NSTEMI) myocardial inf arction Non-ST elevation (NSTEMI) myocardial inf Diagnosis 05/14/2020 07:00:47 PM [facility] E83.42 Hypomagnesemia HYPOMAGNESEMIA Diagnosis 04/23/2020 02:12: 00 PM [facility] R11.2 Nausea with vomiting, unspecified NAUSEA WITH VO MITING, UNSPECIFIED Diagnosis 04/23/2020 02:12:00 PM [facility] Z20.828 Contact with and (suspected) exposure to other viral communicable diseases CONTACT W AND EXPOSURE TO OTH VIRAL COMMUNICABLE D Diagnosis 03/22/2020 11:28:00 PM [facility] I48.91 Unspecified atrial fibrillation UNSPECIFIED ATRI AL FIBRILLATION Diagnosis 03/22/2020 11:28:00 PM [facility] R11.10 Vomiting, unspecified VOMITING, UNSPECIFIED Diagnosis 03/22/2020 11:28:00 PM [facility] W01.0XXA Fall on same level from slip ping, tripping and stumbling without subsequent striking against object, initial encounter FALL SAME LEV FROM SLIP/TRIP W/O STRIKE AGAINST OB Diagnosis 03/13/2020 09:53:00 PM [facility] M25.512 Pain in left shoulder PAIN IN LEFT SHOULDER Diagnosis 03/13/2020 09:53:00 PM [facility] S22.42XA Multiple fractures of ribs, left side, initial encounter for closed fracture MULTIPLE FRACTURES OF RIBS, LEFT SIDE, INIT FOR CL Diagnosis 03/13/2020 09:53:00 PM [facility] S29.9XXA Unspecified injury of thorax, initial en counter UNSPECIFIED INJURY OF THORAX, INITIAL ENCOUNTER Diagnosis 03/13/2020 09:53:00 PM [facility] Y93.01 Activity, walking, marching and hiking A CTIVITY, WALKING, MARCHING AND HIKING Diagnosis 03/11/2020 12:55:00 PM [facility] Y92.[address] in unspeci fied non-institutional (private) residence as the place of occurrence of the external cause UNSP PLACE IN [facility] NON-INSTITUT (PRIVATE) RESIDENC Diagnosis 03/11/2020 12:55:00 PM [facility] l G89.11 Acute pain due to trauma ACUTE PAIN DUE TO TRAUMA Diag nosis 03/11/2020 12:55:00 PM [facility] S70.02XA Contusion of left hip, initial encounter CONTUSION OF LEFT HIP, INITIAL ENCOUNTER Diagnosis 03/11/2020 12:55:00 PM [facility] l S20.212A Contusion of left front wall of thorax, initial encounter CONTUSION OF LEFT FRONT WALL OF THORAX, INITIAL EN Diagnosis 03/11/2020 12:55:00 PM [facility] S46.012A Strain of muscle(s) and tend on(s) of the rotator cuff of left shoulder, initial encounter STRAIN OF MUSC/TEND THE ROTATOR CUFF OF LEFT SHOUL Diagnosis 03/11/2020 12:55:00 PM [facility] S46.812A Strain of other muscles, fas rylee and tendons at shoulder and upper arm level, left arm, initial encounter STRAIN OF MUSC/FASC/TEND AT SHLDR/UP ARM , LEFT ARM Diagnosis 03/11/2020 12:55:00 PM [facility] l S49.92XA Unspecified injury of left shoulder and upper arm, initial encounter UNSP INJURY OF LEFT SHOULDER AND UPPER ARM, INIT ENCNTR Diagnosis 03/11/2020 12:55:00 PM [facility] A04.72 [id number] C. difficile diarrhea Problem 11/01/2020 12:00:00 AM EDT eCW1 ([facility]) R91.1 [id number] Pulmonary nodule Problem 09/29/2020 12:00:00 AM EDT eCW1 ([facility]) E11.42 Neuropathy due to type 2 diabetes [facility] Neuropathy due to type 2 diabetes mellitus Problem 09/09/2020 12:00:00 AM EDT [facility] ([facility] L97.521 [id number] Skin ulcer of toe of left foot, limited to breakdown of skin Problem 09/01/2020 12:00:[address] [facility] ([facility]) I48.0 Paroxysmal atrial fibrillation Paroxysmal atrial fibri llation Problem 08/30/2020 12:00:00 AM EDT [facility] ([facility]) I65.22 [id number] Stenosis of left internal carotid artery Problem 2020 12:00:[address] AM [address] [facility] ([facility]) I50.9 [id number] Acute congestive heart failure, unspecified heart failure type Problem 05/24/2020 12:00:[address] [facility] ([facility]) K21.9 GERD (gastroesophageal reflux disease) G ERD (gastroesophageal reflux disease) [id number] 05/14/2020 12:00:00 AM [facility] I25.10 Coronary artery disease Coronary artery disease [id number] 05/14/2020 12:00:00 AM [facility] F41.9 Anxiety Anxiety [id number] 05/14/2020 12:00:00 AM [facility] E78.00 Hypercholesterolemia Hypercholesterolemia [id number] 05/14/2020 12:00:00 AM [facility] I10 Hypertension Hypertension [id number] 05/14/2020 12:00:00 A M [facility] E11.9 Type 2 diabetes mellitus Type 2 diabetes mellitus 6457 200005/14/2020 12:00:00 AM [facility] E11.40 Diabetic neuropathy Diabetic neuropathy [id number] 0 05/14/2020 12:00:00 AM [facility] I50.30 Diastolic heart failure Diastolic heart failure [id number] 05/14/2020 12:00:00 AM [facility] N18.9 CKD (chronic kidney disease) CKD (chronic kidney disea se) [id number] 05/14/2020 12:00:00 AM EST [facility] W19.XXXA Fall Fall [id number] 05/14/2020 12:00:00 AM ES T [facility] Z83.79 Family history of upper GI bleeding Family histo ry of upper GI bleeding [id number] 05/14/2020 12:00:00 AM EST [facility] R29.6 Falls frequently Falls frequently [id number] 05/14/2020 12 :00:00 AM EST [facility] Z95.5 History of coronary artery stent placeme nt History of coronary artery stent placement [id number] 05/14/2020 12:00:00 AM EST [facility] R29.6 [id number] Frequent falls Problem 05/11/2020 12:00:00 A M EST eCW1 ([facility]) I73.9 Peripheral vascular disease Peripheral vascular diseas e Problem 03/01/2020 12:00:00 AM EST [facility] ([facility] I65.23 Carotid artery occlusion Carotid artery occlusion Prob anita 03/01/2020 12:00:00 AM EST [facility] ([facility]) E83.42 [id number] Hypomagnesemia Problem 01/22/2020 12:00:00 A M EDT eCW1 ([facility]) Pressure ulcer of other site, stage 4 Pressure u lcer of other site, stage 4 Problem 07/17/2019 12:00:00 AM EDT - 01/15/2020 12:00:00 AM ED T [facility] ([facility] [id number] Acute osteomyelitis of ankle and/or foot Acute osteomyelitis of ankle and/or foot Problem 07/17/2019 12:00:00 AM EDT - 01/15/2020 12:00:00 AM EDT [facility] ([facility] [id number] Convalescence after surgery Convalescence after surger y Problem 07/17/2019 12:00:00 AM EDT - 01/15/2020 12:00:00 AM EDT [facility] ([facility] Surgeries/Procedures Procedure Description Date Indications Data Source(s) Imm: Flublok Quadrivalent 18 years & older 0.5mL IM Influenz a 01/13/2021 12:00:00 AM EDT eCW1 ([facility]) OFFICE OUTPATIENT VISIT 10 MINUTES 01/07/2021 12:00:00 AM EDT [facility] ([facility] PARING/CUTTING BENIGN HYPERKERATOTIC LESION 2-4 2020 12:00:00 AM EDT [facility] ([facility] DEBRIDEMENT NAIL ANY METHOD 12/24/2020 12:00:00 AM EDT [facility] ([facility] DEBRIDEMENT OPEN WOUND 20 SQ CM/< 12/24/2020 12:00:00 AM EDT [facility] ([facility] OFFICE OUTPATIENT VISIT 15 MINUTES 12/08/2020 12:00:00 AM EDT MEDENT ([facility]) PARING/CUTTING BENIGN HYPERKERATOTIC LESION 1 10/21/19 12:00:00 AM EDT MEDENT ([facility] DEBRIDEMENT NAIL ANY METHOD 10/20/2020 12:00:00 AM EDT MEDENT ([facility] DEBRIDEMENT SUBCUTANEOUS TISSUE 20 SQ CM/< 09/09/2020 12:00:00 AM EDT MEDENT ([facility] Chronic Care MGMT 20 Mins Clinical Staff Time Per Calendar [facility] 09/09/2020 12:00:00 AM EDT MEDENT ([employer] [employer] [facility] DEBRIDEMENT SUBCUTANEOUS TISSUE 20 SQ CM/< 09/02/2020 12:00:00 AM EDT MEDENT ([facility] DEBRIDEMENT NAIL ANY METHOD 09/02/2020 12:00:00 AM EDT MEDENT ([facility] OFFICE OUTPATIENT VISIT 15 MINUTES 09/02/2020 12:00:00 AM EDT MEDENT ([facility] ECG ROUTINE ECG W/LEAST 12 LDS W/I&R 08/30/2020 12:00: 00 AM EDT MEDENT ([facility]) OFFICE OUTPATIENT VISIT 25 MINUTES 08/30/2020 12:00:00 AM EDT MEDENT ([facility]) Chronic Care Management Services Ea Addl 20 Min 2020 12:00:00 AM EST MEDENT ([facility]) Chronic Care MGMT 20 Mins Clinical Staff Time Per Calendar [facility] 06/29/2020 12:00:00 AM EST MEDENT ([employer] [facility]) ECG ROUTINE ECG W/LEAST 12 LDS W/I&R 05/31/2020 12:00: 00 AM EST MEDENT ([facility]) OFFICE OUTPATIENT VISIT 25 MINUTES 05/31/2020 12:00:00 AM EST MEDENT ([facility]) XTRNL PT ACTIVATED ECG RECORD MONITOR 30 DAYS 05/27/19 12:00:00 AM EST MEDENT ([facility]) XTRNL PT ACTIVTD ECG DWNLD 30 DAYS PHYS R&I 05/27/2020 12:00:00 AM EST MEDENT ([facility]) ECHO TTHRC R-T 2D W/WOM-MODE COMPL SPEC&COLR DOP <td>E CHOCARDIOGRAM TRANSTHORACIC</td><td>Pending Discharge</td><td>05/16/2020 10:14 AM EST</td><td></td><td> </td> 05/16/2020 03:14:48 PM EST [facility] TROPONIN QUANTITATIVE <td>TROPONIN I</td><td>Routi ne</td><td>05/16/2020 9:36 AM EST</td><td></td><td> </td> 05/16/2020 02:36:00 PM EST [facility] THROMBOPLASTIN TIME PARTIAL PLASMA/WHOLE BLOOD <td>APTT</td><td>STAT</td><td>05/16/2020 9:36 AM EST</td><td></td><td> </td> 05/16/2020 02:36:00 PM EST [facility] THROMBOPLASTIN TIME PARTIAL PLASMA/WHOLE BLOOD <td>APTT</td><td>STAT</td><td>05/16/2020 3:24 AM EST</td><td></td><td> </td> 05/16/2020 08:24:00 AM EST [facility] BLOOD COUNT COMPLETE AUTOMATED <td>CBC</td><td>Timed</ td><td>05/16/2020 3:24 AM EST</td><td></td><td> </td> 05/16/2020 08:24:00 AM EST [facility] BASIC METABOLIC PANEL CALCIUM TOTAL <td>BASIC METABOLI C PANEL</td><td>Timed</td><td>05/16/2020 3:24 AM EST</td><td></td><td> </td> 05/16/2020 08:24:00 AM EST [facility] THROMBOPLASTIN TIME PARTIAL PLASMA/WHOLE BLOOD <td>APTT</td><td>STAT</td><td>05/15/2020 8:08 PM EST</td><td></td><td> </td> 05/16/2020 01:08:00 AM EST [facility] GLUC BLD GLUC MNTR DEV CLEARED FDA SPEC HOME USE <td>P OCT GLUCOSE</td><td>Routine</td><td>05/15/2020 6:25 PM EST</td><td></td><td> </td> 05/15/2020 11:25:00 PM EST [facility] GLUC BLD GLUC MNTR DEV CLEARED FDA SPEC HOME USE <td>P OCT GLUCOSE</td><td>Routine</td><td>05/15/2020 1:46 PM EST</td><td></td><td> </td> 05/15/2020 06:46:00 PM EST [facility] THROMBOPLASTIN TIME PARTIAL PLASMA/WHOLE BLOOD <td>APTT</td><td>STAT</td><td>05/15/2020 10:39 AM EST</td><td></td><td> </td> 05/15/2020 03:39:00 PM EST [facility] GLUC BLD GLUC MNTR DEV CLEARED FDA SPEC HOME USE <td>P OCT GLUCOSE</td><td>Routine</td><td>05/15/2020 9:31 AM EST</td><td></td><td> </td> 05/15/2020 02:31:00 PM EST [facility] THROMBOPLASTIN TIME PARTIAL PLASMA/WHOLE BLOOD <td>APTT</td><td>STAT</td><td>05/15/2020 1:52 AM EST</td><td></td><td> </td> 05/15/2020 06:52:00 AM EST [facility] BLOOD COUNT COMPLETE AUTOMATED <td>CBC</td><td>Timed</ td><td>05/15/2020 1:52 AM EST</td><td></td><td> </td> 05/15/2020 06:52:00 AM EST [facility] BASIC METABOLIC PANEL CALCIUM TOTAL <td>BASIC METABOLI C PANEL</td><td>Timed</td><td>05/15/2020 1:52 AM EST</td><td></td><td> </td> 05/15/2020 06:52:00 AM EST [facility] XR CHEST PORTABLE <td>XR CHEST PORTABLE</td><t d>Routine</td><td>05/14/2020 9:22 PM EST</td><td></td><td> </td> 05/15/2020 02:22:30 AM EST [facility] NT PRO BNP <td>NT PRO BNP</td><td>Routi ne</td><td>05/14/2020 8:13 PM EST</td><td></td><td> </td> 05/15/2020 01:13:00 AM EST [facility] TROPONIN QUANTITATIVE <td>TROPONIN I</td><td>Timed </td><td>05/14/2020 8:13 PM EST</td><td></td><td> </td> 05/15/2020 01:13:00 AM EST [facility] BLOOD TYPING ABO <td>TYPE AND SCREEN</td><td> Routine</td><td>05/14/2020 8:13 PM EST</td><td></td><td> </td> 05/15/2020 01:13:00 AM EST [facility] THYROID STIMULATING HORMONE TSH <td>TSH</td><td>Routin e</td><td>05/14/2020 8:13 PM EST</td><td></td><td> </td> 05/15/2020 01:13:00 AM EST [facility] MAGNESIUM <td>MAGNESIUM</td><td>Routin e</td><td>05/14/2020 8:13 PM EST</td><td></td><td> </td> 05/15/2020 01:13:00 AM EST [facility] LIPID PANEL <td>LIPID PANEL</td><td>Rout ine</td><td>05/14/2020 8:13 PM EST</td><td></td><td> </td> 05/15/2020 01:13:00 AM EST [facility] COMPREHENSIVE METABOLIC PANEL <td>COMPREHENSIVE METABO LIC PANEL</td><td>STAT</td><td>05/14/2020 8:13 PM EST</td><td></td><td> </td> 05/15/2020 01:13:00 AM EST [facility] THROMBOPLASTIN TIME PARTIAL PLASMA/WHOLE BLOOD <td>APTT</td><td>Routine</td><td>05/14/2020 7:21 PM EST</td><td></td><td> </td> 05/15/2020 12:21:00 AM EST [facility] BLOOD COUNT COMPLETE AUTOMATED <td>CBC</td><td>Routine </td><td>05/14/2020 7:21 PM EST</td><td></td><td> </td> 05/15/2020 12:21:00 AM EST [facility] ECG ROUTINE ECG W/LEAST 12 LDS W/I&R 05/11/2020 12:00: 00 AM EST ZACHARY ([facility]) OFFICE OUTPATIENT VISIT 15 MINUTES 05/11/2020 12:00:00 AM EST [facility]ACH[facility] ([facility]) DEBRIDEMENT NAIL ANY METHOD 6/> 03/09/2020 12:00:00 AM EST MEDENT ([facility] ECG ROUTINE ECG W/LEAST 12 LDS W/I&R 03/01/2020 12:00: 00 AM EST MEDENT ([facility]) DEBRIDEMENT NAIL ANY METHOD 01/01/2020 12:00:00 AM EDT MEDENT ([facility] Results ID Date Data Source [id number] 11/24/2020 11:15:00 AM EDT [facility] Name Value Range Interpretation Code Description Data Maria Esther rce(s) Supporting Document(s) Thyroid Stimulating Hormone 3.630 uIU/ML 0.358-3.740 MEDENT ([facility]) Free T4 0.88 ng/dL 0.76-1.46 MEDENT ([facility]) ID Date Data Source [id number] 11/24/2020 11:15:00 AM EDT [facility] ([facility]) Name Value Range Interpretation Code Description Data Maria Esther rce(s) Supporting Document(s) Cholesterol Level 130 mg/dL MED[facility] ([facility]) Triglycerides Level 394 mg/dL MEDENT ([facility]) HDL Cholesterol 38 mg/dL MED[facility] ([facility]) Non-HDL-C 92 mg/dL [facility] LDL Cholesterol 13 mg/dL MED[facility] ([facility]) Cholesterol Risk Ratio 3.421 MEDENT ([facility]) ID Date Data Source [id number] 11/24/2020 11:15:00 AM EDT MED[facility] ([facility]) Name Value Range Interpretation Code Description Data Maria Esther rce(s) Supporting Document(s) Blood Urea Nitrogen 27 mg/dL 7-18 MED[facility] ([facility]) Glucose, Fasting 479 mg/dL 70-100 Above upper panic limits MEDENT ([facility]) Glomerular Filtration Rate 37.1 MED ENT ([facility]) <content>Units are mL/min/1.73 m2</content>
<content></content>
<content>Chronic Kidney Disease Staging per NKF:</content>
<content></content>
<content>Stage I & II GFR >=60 Normal to Mildly Decreased</content>
<content>Stage III GFR 30- 59 Moderately Decreased</content>
<content>Stage IV GFR 15-29 Severely Decreased</content>
<content>Stage V GFR <15 Very Little GFR Left</content>
<content>ESRD GFR <15 on WEB KNITTER</content>
<content></content> Creatinine For GFR 1.47 mg/dL 0.55-1.30 MEDENT ([facility]) Sodium Level 131 meq/L 136-145 MED[facility] ([facility] Potassium Serum 4.5 meq/L 3.5-5.1 MED[facility] ([facility]) Carbon Dioxide Level 31 meq/L 21-32 MEDENT ([facility]) Chloride Level 92 meq/L 98-107 MEDENT ([facility]) Calcium Level 9.3 mg/dL 8.8-10.2 MED[facility] ([facility] Anion Gap 8 meq/L 8-16 MED[facility] ([facility] [place] Ast/Sgot 26 U/L 7-37 MED[facility] ([facility] [place] Alkaline Phosphatase 100 U/L 45-117 MEDENT ([facility] [place] Alt/SGPT 37 U/L 12-78 MED[facility] ([facility] [place] Bilirubin,Total 0.6 mg/dL 0.2-1.0 MEDENT ([facility] Total Protein 7.2 GM/DL 6.4-8.2 MED[facility] ([facility] Albumin/Globulin Ratio 1.1 1.2-2.2 MEDENT ([facility]) Albumin 3.7 GM/DL 3.2-5.2 MED[facility] ([facility] ID Date Data Source [id number] 11/24/2020 11:15:00 AM EDT MEDENT ([facility]) Name Value Range Interpretation Code Description Data Maria Esther rce(s) Supporting Document(s) Hemoglobin A1c 12.8 % MEDENT ([facility]) <content>REFERENCE RANGES:</content><br/ ><content></content>
<content><=5.6% NORMAL</content>
<content>5.7-6.4% SUGGESTS IMPAIRED GLUCOSE METABOLISM/PREDIABETIC</content>
<content>>= 6.5% ABNORMAL</content>
<content></content> Estimated Average Glucose 321 mg/dL 60-110 MEDENT ([facility]) ID Date Data Source [id number] 11/24/2020 11:15:00 AM EDT MEDENT ([facility]) Name Value Range Interpretation Code Description Data Maria Esther rce(s) Supporting Document(s) White Blood Count 5.7 10 4.0-10.0 MED[facility] ([facility]) Red Blood Count 3.85 10 4.00-5.40 MED[facility] ([facility]) Hemoglobin 10.9 g/dL 12.0-15.5 MEDENT ([facility]) Hematocrit 34.4 % 36.0-47.0 MEDENT ([facility]) Mean Corpuscular Hemoglobin 28.3 pg 27.0-33.0 MEDENT ([facility]) Mean Corpuscular Volume 89.4 fl 80.0-96.0 M EDENT ([facility]) Red Cell Distribution Width 13.4 % 11.5-14.5 MEDENT ([facility]) Mean Corpuscular HGB Conc 31.7 g/dL 32.0-36.5 MEDENT ([facility]) Lymph % 18.5 % 24.0-44.0 [facility] Platelet Count, Automated 196 10 150-450 MEDENT ([facility]) Neutrophils % 69.0 % 36.0-66.0 MED[facility] ([facility]) Hughes % 9.6 % 2.0-8.0 [facility] ([facility] Eos % 1.7 % 0.0-3.0 [facility] ([facility] Immature Granulocyte % 0.5 % 0-3.0 [facility] ([facility]) Baso % 0.7 % 0.0-1.0 [facility] Nucleated Red Blood Cell % 0.0 % 0-0 MED ENT ([facility]) Neutrophils # 4.0 10 1.5-8.5 [facility] ([facility]) Hughes # 0.6 10 0.0-0.8 [facility] Lymph # 1.1 10 1.5-5.0 [facility] Eos # 0.1 10 0.0-0.5 [facility] ([facility] Baso # 0.0 10 0.0-0.2 [facility] ID Date Data Source LIPID PANEL (CARDIAC RISK) 11/24/2020 12:00:00 AM EDT eCW1 ( [facility]) Name Value Range Interpretation Code Description Data Maria Esther rce(s) Supporting Document(s) Triglyceride [Mass/volume] in Serum or Plasma by calculation 394 <150 TRIGLYCERIDES LEVEL eCW1 ([facility]) Cholesterol [Moles/volume] in Serum or Plasma 130 <200 CHOLESTEROL LEVEL eCW1 ([facility]) Cholesterol in LDL [Mass/volume] in Serum or Plasma by calculation 13 <100 LDL CHOLESTEROL eCW1 ([facility]) 92 NON-HDL-C eCW1 ([facility]) Cholesterol in HDL [Moles/volume] in Serum or Plasma 38 >40 HDL CHOLESTEROL eCW1 ([facility]) 3.421 <5 CHOLESTEROL RISK RATIO eCW ([facility]) ID Date Data Source [id number] 11/24/2020 12:00:00 AM EDT eCW1 ([facility]) Name Value Range Interpretation Code Description Data Maria Esther rce(s) Supporting Document(s) Hemoglobin A1c/Hemoglobin.total in Blood 12.8 HEMOGLOBIN A1c eC ([facility]) ID Date Data Source FREE T4 & TSH PANEL 11/24/2020 12:00:00 AM EDT eCW1 ([facility]) Name Value Range Interpretation Code Description Data Maria Esther rce(s) Supporting Document(s) 0.88 0.76-1.46 FREE T4 eCW1 ([facility]) 3.630 0.358-3.740 THYROID STIMULATING HORM ONE eCW1 ([facility]) ID Date Data Source Comprehensive Metabolic Profile (CMP) 11/24/2020 12:00:00 AM EDT eCW1 ([facility]) Name Value Range Interpretation Code Description Data Maria Esther rce(s) Supporting Document(s) 27 7-18 BLOOD UREA NITROGEN eCW1 ([facility]) 479 70-100 GLUCOSE, FASTING eCW1 ([facility]) 1.47 0.55-1.30 CREATININE FOR GFR eCW1 ([facility]) 37.1 >39 GLOMERULAR FILTRATION RATE eCW 1 ([facility]) 131 136-145 SODIUM LEVEL eCW1 ([facility]) 4.5 3.5-5.1 POTASSIUM SERUM eCW1 ([facility]placed by [facility]) 9.3 8.8-10.2 CALCIUM LEVEL eCW1 ([facility]) 31 21-32 CARBON DIOXIDE LEVEL eCW1 ([facility]) 92 98-107 CHLORIDE LEVEL eCW1 ([facility]) 26 7-37 AST/SGOT eCW1 ([facility]) 37 12-78 ALT/SGPT eCW1 ([facility]) 100 45-117 ALKALINE PHOSPHATASE eCW1 ([facility]) 0.6 0.2-1.0 BILIRUBIN,TOTAL eCW1 ([facility]placed [facility]) 3.7 3.2-5.2 ALBUMIN eCW1 ([facility]) 7.2 6.4-8.2 TOTAL PROTEIN eCW1 ([facility]) 1.1 1.2-2.2 ALBUMIN/GLOBULIN RATIO eCW1 ([facility]) ID Date Data Source CBC with Differential 11/24/2020 12:00:00 AM EDT eCW1 ([facility]) Name Value Range Interpretation Code Description Data Maria Esther rce(s) Supporting Document(s) 3.85 4.00-5.40 RED BLOOD COUNT eCW1 ([facility]) 10.9 12.0-15.5 HEMOGLOBIN eCW1 ([facility]) 5.7 4.0-10.0 WHITE BLOOD COUNT eCW1 ([facility]) 34.4 36.0-47.0 HEMATOCRIT eCW1 ([facility]) 28.3 27.0-33.0 MEAN CORPUSCULAR HEMOGLOB IN eCW1 ([facility]) 89.4 80.0-96.0 MEAN CORPUSCULAR VOLUME e CW1 ([facility]) 31.7 32.0-36.5 MEAN CORPUSCULAR HGB CONC eCW1 ([facility]) 196 150-450 PLATELET COUNT, AUTOMATED eCW1 ([facility]) 13.4 11.5-14.5 RED CELL DISTRIBUTION WID TH eCW1 ([facility]) 18.5 24.0-44.0 LYMPH % eCW1 ([facility]) 69.0 36.0-66.0 NEUTROPHILS % eCW1 ([facility]) 4.0 1.5-8.5 NEUTROPHILS # eCW1 ([facility]) 1.7 0.0-3.0 EOS % eCW1 ([facility]) 9.6 2.0-8.0 MONO % eCW1 ([facility]) 0.7 0.0-1.0 BASO % eCW1 ([facility]) 0.1 0.0-0.5 EOS # eCW1 ([facility]) 0.6 0.0-0.8 MONO # eCW1 ([facility]) 1.1 1.5-5.0 LYMPH # eCW1 ([facility]) 0.0 0.0-0.[address] [facility] # eCW1 ([facility]) ID Date Data Source [id number] 10/06/2020 08:21:00 PM EDT [facility] sury Patient: DULCE RODAS Report - [facility].VisitID: [id number] [place] [address] [phone], FRegistration Date/Time: 10/06/2020 14:32 Weight:56.6 kg (S). Height/Length:62 inches (S). BMI:22.8 PAST HISTORYProblems:Aneurysm (brain X2) [Chronic]. (Left side )Anxiety Reaction [Chronic].Diabetes Mellitus Type 2 [Chronic].Acute Coronary Syndrome [Chronic].Heart Disease [Chronic].Hypertension [Chronic].Coronary Artery Disease [Chronic].Gastroesophageal Reflux [Chronic].Neuropathy [Chronic].Hypercholestero lemia [Chronic].Coronary Artery Disease.Heart Disease.Diabetes Mellitus.Respiratory Failure.Hypertension.Myofascial Strain.Arthritis.Diarrhea.Congestive Heart Failure.Prior Nosebleeds.Epistaxis.Renal Failure.Emphysema.Dizziness [Intermittent].Vertigo [Intermittent].Head Injury [Resolved].GI Bleeding [Resolved].Epistaxis [Resolved].Heart Disease [Resolved].Laceration [Resolved].Laceration [Resolved].Hypomagnesemia [Resolved].Atypical Chest Pain [Resolved].Acute Pain [Resolved].Abnormal Test [Resolved].Cellulitis [Resolved].Dehydration [Resolved].Contusion [Resolved].Contusion [Resolved].Rib Fracture [R esolved].Weakness [Resolved].Peripheral Vascular Disease [Resolved].Vomiting [Resolved].Upper Extremity Pain [Resolved].Subdural intracranial hemorrhage (disorder) [Resolved].Myofascial Strain [Resolved].Neck Pain [Resolved]. Additional Surgeries:Breast Biopsy.Cardiac Catheterization.Cardiac stents. (6 stents in September 2019 , 9 stents in march 2019 )Cataract Surgery.Cholecystectomy.Hysterectomy.Oophorectomy. (Unilateral)Stent in right leg.Tubal Ligation. Medications:Lomotil Oral (Tablet 2.5-0.025 mg) 1 tablet, last dose today at noon.Aspirin Oral (Tablet Chewable 81 mg) 1 tablet, daily every AM, last dose today.Atorvastatin Calcium Oral (Tablet 80 mg) 1 tablet, daily, last dose today.Brilinta Oral (Tablet 90 mg) 1 tablet, 2x a day, last dose today.DULoxetine HCl Oral (Capsule Delayed Release Particles 60 mg) 1 capsule, daily, last dose yesterday.Furosemide Oral 40 mg.Gabapentin Oral (Tablet 800 mg) 1 tablet, daily every PM, last dose last night.Iron Oral 1 tab , daily, last dose last night.Levemir FlexTouch Subcutaneous 36 units, daily at bedtime, last dose last night.Magnesium Oral (Capsule 400 mg) 2 capsules, daily, last dose last night.Metoprolol Tartrate Oral 50 mg.Omeprazole Oral (Tablet Delayed Release 20 mg) 1 tablet, daily, last dose .Sucralfate Oral, 4x a day before meals, last dose today.Trandolapril Oral (Tablet 1 mg) 1/2 tablet, daily at bedtime, last dose last night. Allergies:No Known Drug Allergy.No Known Environmental Allergies. FAMILY HISTORYNo significant family medical history. (Electronically signed by Gautam Diallo P.A. 10/06/2020 20:04) Name Value Range Interpretation Code Description Data [facility](s) Supporting Document(s) ID Date Data Source [id number] 10/06/2020 05:29:[address] [id number] Name Value Range Interpretation Code Description Data [facility](s) Supporting Document(s) Campylobacter Not Detected Detected Not [facility] Clostridium difficile toxin AB DETECTED Detected [facility] This device is not intented to monitor o r guide treatmentfor C. difficile infection.Due to the high asymptomatic carriage rates,especiallyin young children,the clinical relevance of the detectionof toxigenic C. difficile from stool should be consideredin the context of other clinical findings,patient age,and risk factors including hospitalization and antibioticexposure. Plesiomonas shigelloides Not Detected Detected Not [facility] Salmonella Not Detected Detected Not [facility] ospital Vibrio Not Detected Detected Not [facility] spital Vibrio cholerae Not Detected Detected Not [facility] Yersinia enterocolitica Not Detected Detected Not [facility] Enteroaggregative E. coli Not Detected Detected Not [facility] Enteropathogenic E. coli Not Detected Detected Not [facility] Enterotoxigenic E. coli Not Detected Detected Not [facility] Shiga-like toxin-prod E. coli Not Detected Detected Not [facility] Shigella/Enteroinvasive E coli Not Detected Detected Not [facility] Cryptosporidium Not Detected Detected Not [facility] Cyclospora cayetanensis Not Detected Detected Not [facility] Entamoeba histolytica Not Detected Detected Not [facility] Giardia Lamblia Not Detected Detected Not [facility] Adenovirus F 40/41 Not Detected Detected Not [facility] Astrovirus Not Detected Detected Not [facility] Norovirus GI/GII Not Detected Detected Not [facility] Rotavirus A Not Detected Detected Not [facility] Sapovirus Not Detected Detected Not [facility] The FilmArray GI Panel is indicated as a n aid in thediagnosis of specific agents of gatrointestinal illness andresults are meant to be used in conjonction with otherclinical,laboratory and epidemiological data. Positiveresults do not rule out co-infection with organisms notincluded in the FilmArray GI Panel. The agent detected maynot be the definite cause of the disease. Concomitantculture is necessary for organism recovery and furthertyping of bacterial agents.The above results have been determined by using the [employer] FilmArray system.FilmArray is an automated in vitro diagnostic system thatutilizes nested multiplex Polymerase Chain Reaction (PCR)and high-resolution melting analysis to detect and identifymultiple nucleic acid targets from clinical specimens. ID Date Data Source [id number] REFLEX 10/06/2020 04:22:00 PM EDT [facility] TSYSORDER [id number] Name Value Range Interpretation Code Description Data Maria Esther rce(s) Supporting Document(s) URINE RBC 0-2 /hpf 0-3 [facility] URINE WBC 5-10 /hpf 0-5 H [facility] URINE EPITHELIAL CELLS 2+ /hpf 0 [facility] URINE BACTERIA 2+ NONE SEEN H [facility] ID Date Data Source [id number] REFLEX 10/06/2020 04:17:00 PM EDT [facility] ital TSYSORDER [id number] Name Value Range Interpretation Code Description Data Maria Esther rce(s) Supporting Document(s) URINE COLOR. [facility] URINE [facility]ID [facility] GLUCOSE (UA) NEGATIVE mg/dL NEGATIVE [facility] URINE BILIRUBIN NEGATIVE NEGATIVE [facility] URINE KETONE NEGATIVE mg/dL [facility]GATIVE [facility] SPECIFIC GRAVITY,URINE 1.010 1.005-1.030 [facility] URINE BLOOD NEGATIVE NEGATIVE [facility] PH,URINE 5.0 5.0-9.0 [facility] URINE PROTEIN TRACE mg/dL NEGATIVE [facility] URINE UROBILINOGEN 0.2 mg/dL 0-1 [facility] NITRATE NEGATIVE NEGATIVE [facility] URINE LEUKOCYTE ESTERASE TRACE NEGATIVE [facility] ID Date Data Source [id number] 10/10/2020 07:26:00 AM EDT [facility] Name Value Range Interpretation Code Description Data Maria Esther rce(s) Supporting Document(s) [facility] ID Date Data Source [id number] 10/06/2020 04:15:00 PM EDT [facility] [id number] Name Value Range Interpretation Code Description Data Maria Esther rce(s) Supporting Document(s) TSH 3.203 uIU/mL 0.360-3.740 [facility] ID Date Data Source [id number] 10/06/2020 04:10:00 PM EDT [facility] [id number] Name Value Range Interpretation Code Description Data Maria Esther rce(s) Supporting Document(s) MAGNESIUM 1.3 mg/dL 1.8-2.4 [facility] ID Date Data Source [id number] 10/06/2020 04:10:00 PM EDT [facility] T[facility] [id number] Name Value Range Interpretation Code Description Data Maria Esther rce(s) Supporting Document(s) LIPASE 35 U/L 73-393 L [facility] ID Date Data Source [id number] 10/06/2020 04:10:00 PM EDT [facility] [id number] Name Value Range Interpretation Code Description Data Maria Esther rce(s) Supporting Document(s) GLUCOSE 116 mg/dL 74-106 H [facility] BLOOD UREA NITROGEN 11 mg/dL 7-18 [facility] CREATININE 1.01 mg/dL 0.6-1.0 H [facility] SODIUM 142 mmol/L 136-145 [facility] POTASSIUM 3.1 mmol/L 3.5-5.1 L [facility] CHLORIDE 103 mmol/L 98-107 [facility] CO2 26 mmol/L 21-32 [facility] CALCIUM 9.0 mg/dL 8.5-10.1 [facility] ANION GAP 13.0 mmol/L 5-12 H [facility] GLOMERULAR FILTRATION RATE 54 mL/min [facility] GFR IS CALCULATED IN mL/min/1.73m2 MALINDA L FUNCTION: >90MILDLY DECREASED: 60-89MILDY TO MODERATELY DECREASED: 45-59 MODERATELY TO SEVERELY DECREASED: 30-44SEVERELY DECREASED: 15-29RENAL FAILURE: <15 AST 21 U/L 15-37 [facility] ALT 28 U/L 12-78 [facility] ALKALINE PHOSPHATASE 85 U/L 46-116 [facility] TOTAL BILIRUBIN 0.6 mg/dL 0.2-1.0 [facility] TOTAL PROTEIN 7.1 g/dl 6.4-8.2 [facility] ALBUMIN 3.1 gm/dL 3.4-5.0 L [facility] ID Date Data Source [id number] 10/06/2020 03:49:00 PM EDT [facility] TSYSORDER [id number] Name Value Range Interpretation Code Description Data Maria Esther rce(s) Supporting Document(s) WHITE BLOOD COUNT 10.3 K/mm3 4.0-10.0 H [facility] RED BLOOD COUNT 3.74 M/mm3 4.00-5.50 L [facility] HEMOGLOBIN 10.6 gm/dL 12.0-16.0 L [facility] HEMATOCRIT 32.5 % 36.0-48.8 L [facility] MEAN CELL VOLUME 86.9 fl 80-96 [facility] l MEAN CORPUSCULAR HEMOGLOBIN 28.3 pg 27.0-31.0 [facility] MEAN CORPUSCULAR HGB CONC 32.6 g/dl 32.0-36.0 [facility] RED CELL DISTRIBUTION WIDTH 12.5 % 10.0-14.5 [facility] PLATELET COUNT 309 K/mm3 172-450 [facility] MEAN PLATELET VOLUME 9.8 fl 9.0-13.0 [facility] pital GRAN % 80.5 % 50-80.0 H [facility] IG% 0.4 % 0.0-0.2 H [facility] LYMPH % 12.3 % 25.0-50.0 L [facility] MONO % 5.8 % 2.0-10.0 [facility] EOS % 0.8 % 0-5.0 [facility] BASO % 0.2 % 0.0-2.0 [facility] GRAN # 8.3 K/mm3 2.0-8.00 H [facility] IG# 0.0 K/mm3 0.0-0.2 [facility] LYMPH # 1.3 K/mm3 1.0-5.0 [facility] MONO # 0.6 K/mm3 0.10-1.20 [facility] EOS # 0.1 K/mm3 0.0-0.5 [facility] BASO # 0.0 K/mm3 0.0-0.2 [facility] ID Date Data Source [id number] 10/04/2020 04:31:00 PM EDT [facility] Patient: DULCE RODAS [facility]VisitID: [id number] [place] [address] [phone], FRegistration Date/Time: 10/04/2020 12:28 Weight:56.6 kg (S). Height/Length:62 inches (S). BMI:22.8 PAST HISTORYProblems:Anxiety Reaction [Chronic].Aneurysm (brain X2) [Chronic]. (Left side )Acute Coronary Syndrome [Chronic].Diabetes Mellitus Type 2 [Chronic].Heart Disease [Chronic].Coronary Artery Disease [Chronic].Hypertension [Chronic].Gastroesophageal Reflux [Chronic].Neuropathy [Chronic].Hypercholestero lemia [Chronic]. Additional Surgeries:Breast Biopsy.Cardiac Catheterization.Cardiac stents. (6 stents in September 2019 , 9 stents in march 2019 )Cataract Surgery.Cholecystectomy.Hysterectomy.Oophorectomy. (Unilateral)Stent in right leg.Tubal Ligation. Medications:Metoprolol Tartrate Oral 50 mg.Furosemide Oral 40 mg.Aspirin Oral (Tablet Chewable 81 mg) 1 tablet, daily every AM, last dose today.Atorvastatin Calcium Oral (Tablet 80 mg) 1 tablet, daily, last dose today.Brilinta Oral (Tablet 90 mg) 1 tablet, 2x a day, last dose today.DULoxetine HCl Oral (Capsule Delayed Release Particles 60 mg) 1 capsule, daily, last dose yesterday.Gabapentin Oral (Tablet 800 mg) 1 tablet, daily every PM, last dose last night.Iron Oral 1 tab , daily, last dose last night.Levemir FlexTouch Subcutaneous 36 units, daily at bedtime, last dose last night.Magnesium Oral (Capsule 400 mg) 2 capsules, daily, last dose last night.Omeprazole Oral (Tablet Delayed Release 20 mg) 1 tablet, daily, last dose .Sucralfate Oral, 4x a day before meals, last dose today.Trandolapril Oral (Tablet 1 mg) 1/2 tablet, daily at bedtime, last dose last night. Allergies:No Known Drug Allergy.No Known Environmental Allergies. FAMILY HISTORYNo significant family medical history. (Electronically signed by Kiko Field PA-C 10/04/2020 16:28) Name Value Range Interpretation Code Description Data [facility](s) Supporting Document(s) ID Date Data Source [id number] 10/04/2020 01:57:00 PM EDT [facility] TSYSORDER [id number] Name Value Range Interpretation Code [facility]) GLUCOSE 191 mg/dL 74-106 H [facility] BLOOD UREA NITROGEN 13 mg/dL 7-18 [facility] CREATININE 1.04 mg/dL 0.6-1.0 H [facility] SODIUM 138 mmol/L 136-145 [facility] POTASSIUM 3.0 mmol/L 3.5-5.1 L [facility] CHLORIDE 100 mmol/L 98-107 [facility] CO2 25 mmol/L 21-32 [facility] CALCIUM 8.7 mg/dL 8.5-10.1 [facility] ANION GAP 13.0 mmol/L 5-12 H [facility] GLOMERULAR FILTRATION RATE 52 mL/min [facility] GFR IS CALCULATED IN mL/min/1.73m2 MALINDA L FUNCTION: >90MILDLY DECREASED: 60-89MILDY TO MODERATELY DECREASED: 45-59 MODERATELY TO SEVERELY DECREASED: 30-44SEVERELY DECREASED: 15-29RENAL FAILURE: <15 AST 21 U/L 15-37 [facility] ALT 32 U/L 12-78 [facility] ALKALINE PHOSPHATASE 90 U/L 46-116 [facility] pital TOTAL BILIRUBIN 0.5 mg/dL 0.2-1.0 [facility] TOTAL PROTEIN 6.8 g/dl 6.4-8.2 [facility] ALBUMIN 3.2 gm/dL 3.4-5.0 L [facility] ID Date Data Source [id number] 10/04/2020 01:27:00 PM EDT [facility] TSYSORDER [id number] Name Value Range Interpretation Code Description Data Maria Esther rce(s) Supporting Document(s) WHITE BLOOD COUNT 10.0 K/mm3 4.0-10.0 [facility] RED BLOOD COUNT 3.80 M/mm3 4.00-5.50 L [facility] l HEMOGLOBIN 10.8 gm/dL 12.0-16.0 L [facility] HEMATOCRIT 33.1 % 36.0-48.8 L [facility] MEAN CELL VOLUME 87.1 fl 80-96 [facility] MEAN CORPUSCULAR HEMOGLOBIN 28.4 pg 27.0-31.0 [facility] MEAN CORPUSCULAR HGB CONC 32.6 g/dl 32.0-36.0 [facility] RED CELL DISTRIBUTION WIDTH 12.6 % 10.0-14.5 [facility] PLATELET COUNT 283 K/mm3 172-450 [facility] MEAN PLATELET VOLUME 9.9 fl 9.0-13.0 [facility] pital GRAN % 80.4 % 50-80.0 H [facility] IG% 0.3 % 0.0-0.2 H [facility] LYMPH % 12.5 % 25.0-50.0 L [facility] MONO % 5.4 % 2.0-10.0 [facility] EOS % 1.3 % 0-5.0 [facility] BASO % 0.1 % 0.0-2.0 [facility] GRAN # 8.1 K/mm3 2.0-8.00 H [facility] IG# 0.0 K/mm3 0.0-0.2 [facility] LYMPH # 1.3 K/mm3 1.0-5.0 [facility] MONO # 0.5 K/mm3 0.10-1.20 [facility] EOS # 0.1 K/mm3 0.0-0.5 [facility] BASO # 0.0 K/mm3 0.0-0.2 [facility] ID Date Data Source [id number] 09/26/2020 12:44:00 PM EDT [facility] Name Value Range Interpretation Code Description Data Maria Esther rce(s) Supporting Document(s) Calcium [Mass/volume] in Serum or Plasma 8.8 [facility] ([facility]) Carbon dioxide, total [Moles/volume] in Serum or Plasma 27 [facility] ([facility]) Sodium 136 [facility] ([facility]) Potassium [Moles/volume] in Serum or Plasma 3.9 [facility] ([facility]) Chloride [Moles/volume] in Serum or Plasma 101 [facility] ([facility]) Glucose 335 83-110 [facility] ([facility]) Blood Urea Nitrogen 16 7-18 [facility] ([facility]) Creatinine 1.09 0.6-1.0 [facility] ([facility]) Glomerular filtration rate/1.73 sq M.pre dicted [Volume Rate/Area] in Serum or Plasma by Creatinine-based formula (MDRD) 52.4 [facility] ([facility]) ID Date Data Source [id number] 09/26/2020 12:44:00 PM EDT [facility]) Name Value Range Interpretation Code Description Data Maria Esther rce(s) Supporting Document(s) White Blood Count 5.6 5.0-10.0 [facility] Red Blood Count 3.54 4.00-5.40 [facility]) Hemoglobin 10.2 [facility] ([facility]) Platelets 190 172-450 [facility] ([facility]) Hematocrit 31.9 [facility] ([facility]) ID Date Data Source [id number] 09/25/2020 06:49:00 AM EDT [facility] TSYSORDER [id number] Name Value Range Interpretation Code Description Data Maria Esther rce(s) Supporting Document(s) GLUCOSE 150 mg/dL 74-106 H [facility] BLOOD UREA NITROGEN 20 mg/dL 7-18 H [facility] CREATININE 1.15 mg/dL 0.6-1.0 H [facility] SODIUM 142 mmol/L 136-145 [facility] POTASSIUM 4.2 mmol/L 3.5-5.1 [facility] CHLORIDE 104 mmol/L 98-107 [facility] CO2 28 mmol/L 21-32 [facility] CALCIUM 8.6 mg/dL 8.5-10.1 [facility] ANION GAP 10.0 mmol/L 5-12 [facility] GLOMERULAR FILTRATION RATE 46 mL/min [facility] GFR IS CALCULATED IN mL/min/1.73m2 MALINDA L FUNCTION: >90MILDLY DECREASED: 60-89MILDY TO MODERATELY DECREASED: 45-59 MODERATELY TO SEVERELY DECREASED: 30-44SEVERELY DECREASED: 15-29RENAL FAILURE: <15 AST 17 U/L 15-37 [facility] ALT 21 U/L 12-78 [facility] ALKALINE PHOSPHATASE 78 U/L 46-116 [facility] TOTAL BILIRUBIN 0.3 mg/dL 0.2-1.0 [facility] TOTAL PROTEIN 5.8 g/dl 6.4-8.2 L [facility] ALBUMIN 2.9 gm/dL 3.4-5.0 [facility] ID Date Data Source [id number] 09/25/2020 06:23:00 AM EDT [facility] TSYSORDER [id number] Name Value Range Interpretation Code Description Data Maria Esther rce(s) Supporting Document(s) WHITE BLOOD COUNT 5.8 K/mm3 4.0-10.0 [facility] al RED BLOOD COUNT 3.26 M/mm3 4.00-5.50 L [facility] HEMOGLOBIN 9.6 gm/dL 12.0-16.0 [facility] HEMATOCRIT 29.0 % 36.0-48.8 [facility] MEAN CELL VOLUME 89.0 fl 80-96 [facility] MEAN CORPUSCULAR HEMOGLOBIN 29.4 pg 27.0-31.0 [facility] MEAN CORPUSCULAR HGB CONC 33.1 g/dl 32.0-36.0 [facility] RED CELL DISTRIBUTION WIDTH 12.5 % 10.0-14.5 [facility] PLATELET COUNT 183 K/mm3 172-450 [facility] MEAN PLATELET VOLUME 10.7 fl 9.0-13.0 [facility] pital GRAN % 58.3 % 50-80.0 [facility] IG% 0.3 % 0.0-0.2 H [facility] LYMPH % 30.1 % 25.0-50.0 [facility] MONO % 9.6 % 2.0-10.0 [facility] EOS % 1.4 % 0-5.0 [facility] BASO % 0.3 % 0.0-2.0 [facility] GRAN # 3.4 K/mm3 2.0-8.00 [facility] IG# 0.0 K/mm3 0.0-0.2 [facility] LYMPH # 1.8 K/mm3 1.0-5.0 [facility] MONO # 0.6 K/mm3 0.10-1.20 [facility] EOS # 0.1 K/mm3 0.0-0.5 [facility] BASO # 0.0 K/mm3 0.0-0.2 [facility] ID Date Data Source [id number] 10/01/2020 05:05:00 PM EDT [facility] Name Value Range Interpretation Code Description Data Maria Esther rce(s) Supporting Document(s) Hemoglobin A1c 14.4 % 4.8-5.6 Above high normal [facility] Prediabetes: 5.7 - 6.4 Diabetes: >6.4 Glycemic control for adults with diabetes: <7.0 Estim. Avg Glu (eAG) 367 mg/dL [facility] ID Date Data Source [id number] 09/28/2020 08:43:00 AM EDT [facility] l TSYSORDER [id number] Name Value Range Interpretation Code Description Data Maria Esther rce(s) Supporting Document(s) HGBA1C >14 % 3.8-5.6 H [facility] SPECIMEN SENT TO [facility] : RESULT: 14.4% REFERENCE: 4.8-5.6% EA mg/dL PREDIABETES: 5.7-6.4% DIABETES: >6.4% GLYCEMIC CONTROL FOR ADULTS WITH DIABETES: <7.0% 09/28/20 0837: HGBA1C previously reported as: 14.93848 H %Diabetic > or = to 6.5%Prediabetes 5.7-6.4%Normal <5.7 ESTIMATED AVERAGE GLUCOSE 355.1 mg/dL [facility] 09/28/20 0838: EAG previously reported as: 355.1 mg/dL ID Date Data Source [id number] 09/24/2020 07:25:00 AM EDT [facility] TSYSORDER [id number] Name Value Range Interpretation Code Description Data Maria Esther rce(s) Supporting Document(s) GLUCOSE 268 mg/dL 74-106 H [facility] BLOOD UREA NITROGEN 31 mg/dL 7-18 H [facility] ital CREATININE 1.73 mg/dL 0.6-1.0 H [facility] SODIUM 137 mmol/L 136-145 [facility] POTASSIUM 3.2 mmol/L 3.5-5.1 L [facility] CHLORIDE 99 mmol/L 98-107 [facility] CO2 27 mmol/L 21-32 [facility] CALCIUM 8.0 mg/dL 8.5-10.1 L [facility] ANION GAP 11.0 mmol/L 5-12 [facility] GLOMERULAR FILTRATION RATE 29 mL/min [facility] GFR IS CALCULATED IN mL/min/1.73m2 MALINDA L FUNCTION: >90MILDLY DECREASED: 60-89MILDY TO MODERATELY DECREASED: 45-59 MODERATELY TO SEVERELY DECREASED: 30-44SEVERELY DECREASED: 15-29RENAL FAILURE: <15 AST 12 U/L 15-37 L [facility] ALT 18 U/L 12-78 [facility] ALKALINE PHOSPHATASE 85 U/L 46-116 [facility] pital TOTAL BILIRUBIN 0.4 mg/dL 0.2-1.0 [facility] TOTAL PROTEIN 5.9 g/dl 6.4-8.2 L [facility] ALBUMIN 3.0 gm/dL 3.4-5.0 L [facility] ID Date Data Source [id number] 09/24/2020 07:25:00 AM T [facility] TSYSORDER [id number] Name Value Range Interpretation Code Description Data Maria Esther e(s) Supporting Document(s) C REACTIVE PROTEIN 50.7 mg/L 0.0-3.0 H [facility] luis ID Date Data Source [id number] 09/24/2020 06:59:[address] [facility] TSYSORDER [id number] Name Value Range Interpretation Code Description Data Maria Esther rce(s) Supporting Document(s) WHITE BLOOD COUNT 8.0 K/mm3 4.0-10.0 [facility] RED BLOOD COUNT 3.32 M/mm3 4.00-5.50 L [facility] HEMOGLOBIN 9.8 gm/dL 12.0-16.0 [facility] HEMATOCRIT 28.8 % 36.0-48.8 L [facility] MEAN CELL VOLUME 86.7 fl 80-96 [facility] MEAN CORPUSCULAR HEMOGLOBIN 29.5 pg 27.0-31.0 [facility] MEAN CORPUSCULAR HGB CONC 34.0 g/dl 32.0-36.0 [facility] RED CELL DISTRIBUTION WIDTH 12.6 % 10.0-14.5 [facility] PLATELET COUNT 188 K/mm3 172-450 [facility] MEAN PLATELET VOLUME 11.0 fl 9.0-13.0 [facility] pital GRAN % 72.9 % 50-80.0 [facility] IG% 0.3 % 0.0-0.2 H [facility] LYMPH % 18.5 % 25.0-50.0 L [facility] MONO % 7.4 % 2.0-10.0 [facility] EOS % 0.6 % 0-5.0 [facility] BASO % 0.3 % 0.0-2.0 [facility] GRAN # 5.8 K/mm3 2.0-8.00 [facility] IG# 0.0 K/mm3 0.0-0.2 [facility] LYMPH # 1.5 K/mm3 1.0-5.0 [facility] MONO # 0.6 K/mm3 0.10-1.20 [facility] EOS # 0.1 K/mm3 0.0-0.5 [facility] BASO # 0.0 K/mm3 0.0-0.2 [facility] ID Date Data Source [id number] 09/30/2020 08:33:00 AM EDT [facility] Name Value Range Interpretation Code Description Data Maria Esther rce(s) Supporting Document(s) [facility] ID Date Data Source [id number] 09/30/2020 08:33:00 AM EDT [facility] Name Value Range Interpretation Code Description Data Maria Esther rce(s) Supporting Document(s) [facility] ID Date Data Source [id number] 09/26/2020 12:35:00 PM EDT [facility] Name Value Range Interpretation Code Description Data Maria Esther rce(s) Supporting Document(s) [facility] ID Date Data Source [id number] 09/23/2020 06:23:00 PM EDT [facility] Name Value Range Interpretation Code Description Data Maria Esther rce(s) Supporting Document(s) URINE RBC 1-3 /hpf 0-3 [facility] URINE WBC 5-10 /hpf 0-5 H [facility] URINE EPITHELIAL CELLS 2+ /hpf 0 [facility] URINE BACTERIA 2+ NONE SEEN H [facility] URINE YEAST PRESENT [facility] ID Date Data Source [id number] 09/23/2020 06:23:00 PM EDT [facility] Name Value Range Interpretation Code Description Data Maria Esther rce(s) Supporting Document(s) URINE COLOR. YELLOW [facility] URINE APPEARANCE CLEAR [facility] l URINE GLUCOSE (UA) >=1000 mg/dL NEGATIVE [facility] URINE BILIRUBIN NEGATIVE NEGATIVE [facility] URINE KETONE NEGATIVE mg/dL [facility]GATIVE [facility] SPECIFIC GRAVITY,URINE 1.010 1.005-1.030 [facility] URINE BLOOD TRACE NEGATIVE [facility] PH,URINE 5.5 5.0-9.0 [facility] URINE PROTEIN TRACE mg/dL NEGATIVE [facility] URINE UROBILINOGEN 0.2 mg/dL 0-1 [facility] NITRATE NEGATIVE NEGATIVE [facility] URINE LEUKOCYTE ESTERASE TRACE NEGATIVE [facility] ID Date Data Source [id number] 09/23/2020 06:19:00 PM EDT [facility] l Name Value Range Interpretation Code Description Data Maria Esther rce(s) Supporting Document(s) URINE AMPHETAMINES NEGATIVE <1000 ng/mL [facility]ital COCAINE, URINE NEGATIVE <300 ng/mL [facility] THC,URINE NEGATIVE <50 ng/mL [facility] URINE BENZODIAZEPINES NEGATIVE <300 ng/mL [facility] URINE,TCA NEGATIVE <1000 ng/mL [facility] IF A NEGATIVE RESULT IS OBTAINED AND ING ESTION OF TRICYCLICANTIDEPRESSANTS IS SUSPECTED, A SERUM SAMPLE SHOULD BEOBTAINED AND TESTED USING AN APPROPRIATE METHOD. URINE BARBITURATES NEGATIVE <300 ng/mL [facility] MDMA NEGATIVE <500 ng/mL [facility] URINE,OPIATES NEGATIVE <300 ng/mL [facility] PCP,URINE NEGATIVE <25 ng/mL [facility] OXYCODONE URINE NEGATIVE <100 ng/mL [facility] l PROPOXYPHENE NEGATIVE <300 ng/mL [facility] THESE TESTS ARE PERFORMED USING AN IMMU NOASSAY FOR THEQUALITATIVE DETERMINATION OF THE PRESENCE OF THE MAJORMETABOLITES OF DRUGS OF ABUSE. THESE TESTS ARE ONLY ASCREENING AND NOT CONFIRMATORY. CLINICAL CONSIDERATION ANDPROFESSIONAL JUDGMENT MUST BE APPLIED TO ANY DRUG OF ABUSETEST RESULT. ID Date Data Source [id number] 09/23/2020 05:56:00 PM EDT [facility] Name Value Range Interpretation Code Description Data Maria Esther rce(s) Supporting Document(s) AMMONIA < 10 umol/L 11-32 L [facility] ID Date Data Source [id number] 09/23/2020 04:52:00 PM EDT [facility] l DATE OF EXAMINATION: 09/23/2020 16:22 EDT CHEST 1 VIEW HISTORY: Cough TECHNIQUE: Single frontal radiograph of chest COMPARISON: 05/21/2020 FINDINGS: No evidence of focal consolidation, pneumothorax or large pleural effusion.Lungs are clear. Mediastinal structures are unremarkable. No aggressive osseouslesions. IMPRESSION: No focal consolidation. Electronically signed in [id number] by: Jennyfer Hanna M.D. 09/23/2020 16:46 EDT Name Value Range Interpretation Code Description Data Maria Esther rce(s) Supporting Document(s) ID Date Data Source [id number] 09/23/2020 04:34:00 PM EDT [facility] Name Value Range Interpretation Code Description Data Maria Esther rce(s) Supporting Document(s) COVID-19 NEGATIVE [facility] This lab was ordered by [facility] and reported by [facility]. ID Date Data Source [id number] 09/23/2020 07:39:00 PM EDT [facility] Name Value Range Interpretation Code Description Data Maria Esther rce(s) Supporting Document(s) MAGNESIUM 2.0 mg/dL 1.8-2.4 [facility] ID Date Data Source [id number] 09/23/2020 07:33:00 PM EDT [facility] Name Value Range Interpretation Code Description Data Maria Esther rce(s) Supporting Document(s) LACTIC ACID 1.4 mmol/L 0.4-2.0 [facility] [facility] ID Date Data Source [id number] 09/23/2020 05:46:00 PM EDT [facility] Name Value Range Interpretation Code Description Data Maria Esther rce(s) Supporting Document(s) PROTHROMBIN TIME (PATIENT) 10.3 SECONDS 9.1-11.6 [facility] INR 0.99 0.87-1.06 [facility] ID Date Data Source [id number] 09/23/2020 05:30:00 PM EDT [facility] Name Value Range Interpretation Code Description Data Maria Esther rce(s) Supporting Document(s) WHITE BLOOD COUNT 10.9 K/mm3 4.0-10.0 H [facility] luis RED BLOOD COUNT 3.83 M/mm3 4.00-5.50 L [facility] HEMOGLOBIN 11.0 gm/dL 12.0-16.0 L [facility] HEMATOCRIT 33.0 % 36.0-48.8 L [facility] MEAN CELL VOLUME 86.2 fl 80-96 [facility] MEAN CORPUSCULAR HEMOGLOBIN 28.7 pg 27.0-31.0 [facility] MEAN CORPUSCULAR HGB CONC 33.3 g/dl 32.0-36.0 [facility] RED CELL DISTRIBUTION WIDTH 12.4 % 10.0-14.5 [facility] PLATELET COUNT 235 K/mm3 172-450 [facility] MEAN PLATELET VOLUME 11.0 fl 9.0-13.0 [facility] pital GRAN % 86.2 % 50-80.0 H [facility] IG% 0.3 % 0.0-0.2 H [facility] LYMPH % 7.3 % 25.0-50.0 L [facility] MONO % 5.6 % 2.0-10.0 [facility] EOS % 0.5 % 0-5.0 [facility] BASO % 0.1 % 0.0-2.0 [facility] GRAN # 9.4 K/mm3 2.0-8.00 H [facility] IG# 0.0 K/mm3 0.0-0.2 [facility] LYMPH # 0.8 K/mm3 1.0-5.0 L [facility] MONO # 0.6 K/mm3 0.10-1.20 [facility] EOS # 0.1 K/mm3 0.0-0.5 [facility] BASO # 0.0 K/mm3 0.0-0.2 [facility] ID Date Data Source [id number] 09/23/2020 05:25:00 PM EDT [facility] Name Value Range Interpretation Code Description Data Maria Esther rce(s) Supporting Document(s) COVID-19 NEGATIVE NEGATIVE [facility] Negative results should be treated as pr esumptive and, ifinconsistent with clinical signs and symptoms or necessaryfor patient management, should be tested with differentauthorized or cleared molecular tests.Negative results do not preclude SARS-CoV-2 infection andshould not be used as the sole basis for patient managementdecisions.This is a rapid molecular isothermal nucleic acidamplification technology (NAAT) in vitro diagnostic testutilizing a loop mediated isothermal amplification (LAMP)test with nicking endonuclease amplification reaction(NEAR) intended for the qualitative detection of nucleica gisela from the SARS-CoV-2 viral RNA in direct nasal,nasopharyngeal or throat swabs from individuals who aresuspected of COVID-19.Results are for the indentification of SARS-CoV-2 RNA. [id number]-1 RNA is generally detectable in respiratorysamples during the actue phase of infection. ID Date Data Source [id number] 09/23/2020 05:45:00 PM EDT [facility] l Name Value Range Interpretation Code Description Data Maria Esther rce(s) Supporting Document(s) SALICYLATE < 3.0 mg/dL 2.8-20.0 [facility] ID Date Data Source [id number] 09/23/2020 05:45:00 PM EDT [facility] l Name Value Range Interpretation Code Description Data Maria Esther rce(s) Supporting Document(s) ETHYL ALCOHOL 0.00 % 0-0.01 [facility] ID Date Data Source [id number] 09/23/2020 05:45:00 PM EDT [facility] l Name Value Range Interpretation Code Description Data Maria Esther rce(s) Supporting Document(s) GLUCOSE 344 mg/dL 74-106 H [facility] BLOOD UREA NITROGEN 28 mg/dL 7-18 H [facility] ital CREATININE 1.43 mg/dL 0.6-1.0 H [facility] SODIUM 133 mmol/L 136-145 L [facility] POTASSIUM 3.5 mmol/L 3.5-5.1 [facility] CHLORIDE 90 mmol/L 98-107 L [facility] CO2 29 mmol/L 21-32 [facility] CALCIUM 8.7 mg/dL 8.5-10.1 [facility] ANION GAP 14.0 mmol/L 5-12 H [facility] GLOMERULAR FILTRATION RATE 36 mL/min [facility] GFR IS CALCULATED IN mL/min/1.73m2 MALINDA L FUNCTION: >90MILDLY DECREASED: 60-89MILDY TO MODERATELY DECREASED: 45-59 MODERATELY TO SEVERELY DECREASED: 30-44SEVERELY DECREASED: 15-29RENAL FAILURE: <15 AST 24 U/L 15-37 [facility] ALT 28 U/L 12-78 [facility] ALKALINE PHOSPHATASE 118 U/L 46-116 H [facility] pital TOTAL BILIRUBIN 0.5 mg/dL 0.2-1.0 [facility] TOTAL PROTEIN 7.6 g/dl 6.4-8.2 [facility] ALBUMIN 4.1 gm/dL 3.4-5.0 [facility] ID Date Data Source [id number] 09/23/2020 05:45:00 PM EDT [facility] Name Value Range Interpretation Code Description Data Maria Esther rce(s) Supporting Document(s) ACETAMINOPHEN LEVEL < 2.0 mcg/mL 10-30 L [facility] ospital ID Date Data Source [id number] 09/23/2020 04:20:00 PM EDT [facility] DATE OF EXAMINATION: 09/23/2020 16:08 EDT BRAIN W/O CONTRAST HISTORY: Stroke TECHNIQUE: This CT exam was performed using the following dose reduction techniques:automatic exposure control, adjustment of mA and/or kV according to thepatient's size, and use of iterative reconstruction technique. Standard contiguous axial spiral imaging was obtained from the skull basethrough the vertex without contrast administration and with coronalreformatting. FINDINGS: BRAIN: Mild diffuse cerebral atrophy of aging with prominence of ventricles andsulci is symmetrical fashion is noted. There are no parenchymal hematomas massesmass effect or midline shift nor any extra-axial collections. Faintcalcification of the basal ganglia is identified. IMPRESSION: Mild atrophy. If there is any clinical concern for acute stroke an MRI andurology consult would be recommended. Electronically signed in [id number] by: Jennyfer Hanna M.D. 09/23/2020 16:14 EDT Name Value Range Interpretation Code Description Data Maria Esther rce(s) Supporting Document(s) ID Date Data Source [id number] 07/24/2020 05:48:00 PM EDT [facility] Patient: DULCE RODAS tienma Report - [facility].VisitID: [id number] [place] [phone], FRegistration Date/Time: 07/24/2020 15:47 Weight:58 kg (S). Height/Length:62 inches (S). BMI:23.4 PAST HISTORYMedications:Aspirin Oral (Tablet Chewable 81 mg) 1 tablet, daily every AM, last dose .Atorvastatin Calcium Oral (Tablet 80 mg) 1 tablet, daily, last dose .Brilinta Oral (Tablet 90 mg) 1 tablet, 2x a day, last dose .DULoxetine HCl Oral (Capsule Delayed Release Particles 60 mg) 1 capsule, daily, last dose .Gabapentin Oral (Tablet 800 mg) 1 tablet, daily every PM, last dose .Iron Oral 1 tab , daily, last dose .Levemir FlexTouch Subcutaneous 10 units, daily at bedtime, last dose .Magnesium Oral (Capsule 400 mg) 2 capsules, daily, last dose .Omeprazole Oral (Tablet Delayed Release 20 mg) 1 tablet, daily, last dose .Ranolazine ER Oral (Tablet Extended Release 12 Hour 500 mg) 1 tablet, 2x a day, last dose .Sucralfate Oral, 4x a day before meals, last dose .Trandolapril Oral (Tablet 1 mg) 1/2 tablet, daily at bedtime, last dose . Allergies:No Known Environmental Allergies. FAMILY HISTORYNo significant family medical history. (Electronically signed by Jonh Naylor PA 07/24/2020 17:23) Name Value Range Interpretation Code Description Data Maria Esther rce(s) Supporting Document(s) ID Date Data Source [id number] 07/24/2020 05:09:00 PM EDT [facility] DATE OF EXAMINATION: 07/24/2020 16:36 EDT HISTORY: Pain TECHNIQUE: 3 views of the right shoulder were obtained. FINDINGS: There is no acute fracture or dislocation. There is mild narrowing of theacromioclavicular joint space with associated osteophyte formation. Theglenohumeral joint space is normal in appearance. There is irregularity of thesuperolateral head of the humerus. IMPRESSION: There is no acute fracture or dislocation. Electronically signed in [id number] by: Evaristo Estrada M.D. 07/24/2020 17:04 EDT Name Value Range Interpretation Code Description Data Maria Esther rce(s) Supporting Document(s) ID Date Data Source [id number] 06/16/2020 04:09:57 PM [facility] Name Value Range Interpretation Code Description Data [facility] rce(s) Supporting Document(s) Progress Note [facility] [id number] [file] [id number] [file] [id number] [file] [id number] ID Date Data Source [id number] 06/16/2020 03:50:00 PM EST [facility] Patient: DULCE RODAS Report - [facility].VisitID: [id number] [place] [address] [phone], FRegistration Date/Time: 06/16/2020 13:41 Weight:60.3 kg (S). Height/Length:62 inches (S). BMI:24.3 PAST HISTORYProblems:Hypercholesterolemia [Chronic].Acute Coronary Syndrome [Chronic].Aneurysm (brain X2) [Chronic]. (Left side )Anxiety Reaction [Chronic].Heart Disease [Chronic].Diabetes Mellitus Type 2 [Chronic].Gastroesophageal Reflux [Chronic].Hypertension [Chronic].Neuropathy [Chronic].Coronary Artery Disease [Chronic].Diabetes Mellitus.Prior Nosebleeds.Congestive Heart Failure.Emphysema.Renal Failure. Additional Surgeries:Breast Biopsy.Cardiac Catheterization.Cardiac stents. (6 stents in September 2019 , 9 stents in march 2019 )Cataract Surgery.Cholecystectomy.Hysterectomy.Oophorectomy. (Unilateral)Stent in right leg.Tubal Ligation. Medications:Sucralfate Oral, 4x a day before meals, last dose today.Levemir FlexTouch Subcutaneous 10 units, daily at bedtime, last dose last night.Aspirin Oral (Tablet Chewable 81 mg) 1 tablet, daily every AM, last dose yesterday am .Atorvastatin Calcium Oral (Tablet 80 mg) 1 tablet, daily, last dose yesterday am.Brilinta Oral (Tablet 90 mg) 1 tablet, 2x a day, last dose yesterday am and pm .DULoxetine HCl Oral (Capsule Delayed Release Particles 60 mg) 1 capsule, daily, last dose yesterday evening .Gabapentin Oral (Tablet 800 mg) 1 tablet, daily every PM, last dose yesterday evening .Iron Oral 1 tab , daily, last dose yesterday pm.Isosorbide Mononitrate ER Oral (Tablet Extended Release 24 Hour 30 mg) 1 tablet, daily, last dose yesterday am .Magnesium Oral (Capsule 400 mg) 2 capsules, daily, last dose yesterday pm.Omeprazole Oral (Tablet Delayed Release 20 mg) 1 tablet, daily, last dose yesterday am .Ranolazine ER Oral (Tablet Extended Release 12 Hour 500 mg) 1 tablet, 2x a day, last dose yesterday am .Trandolapril Oral (Tablet 1 mg) 1/2 tablet, daily at bedtime, last dose yesterday pm. Allergies:No Known Drug Allergy.No Known Environmental Allergies. FAMILY HISTORYNo significant family medical history. INSTRUCTIONSYour Current Medications: Your current home medications have been reviewed. CONTINUE TAKING THE FOLLOWING MEDICATIONS:Aspirin Oral : Tablet Chewable 81 mg, 1 tablet daily, Last: yesterday am, every AM. Atorvastatin Calcium Oral : Tablet 80 mg, 1 tablet daily, Last: yesterday am. Brilinta Oral : Tablet 90 mg, 1 tablet 2x a day, Last: yesterday am and pm. DULoxetine HCl Oral : Capsule Delayed Release Parti cles 60 mg, 1 capsule daily, Last: yesterday evening. Gabapentin Oral : Tablet 800 mg, 1 tablet daily, Last: yesterday evening, every PM. Iron Oral : 1 tab daily, Last: yesterday pm. Isosorbide Mononitrate ER Oral : Tablet Extended Release 24 Hour 30 mg, 1 tablet daily, Last: yesterday am. Levemir FlexTouch Subcutaneous : 10 units daily, Last: last night, at bedtime. Magnesium Oral : Capsule 400 mg, 2 capsules daily, Last: yesterday pm. Omeprazole Oral : Tablet Delayed Release 20 mg, 1 tablet daily, Last: yesterday am. Ranolazine ER Oral : Tablet Extended Release 12 Hour 500 mg, 1 tablet 2x a day, Last: yesterday am. Sucralfate Oral : 4x a day, Last: today, before meals. Trandolapril Oral : Tablet 1 mg, 1/2 tablet daily, Last: yesterday pm, at bedtime. (Electronically signed by Pat Marcelino MD 06/16/2020 15:34) Name Value Range Interpretation Code Description Data Maria Esther beltran(s) Supporting Document(s) ID Date Data Source [id number] 06/09/2020 01:15:00 PM EST [facility] ([facility]) Name Value Range Interpretation Code Description Data Maria Esther beltran(s) Supporting Document(s) Glucose, Fasting 272 mg/dL 70-100 [facility] ([facility]) Blood Urea Nitrogen 29 mg/dL 7-18 [facility] ([facility]) Creatinine For GFR 1.29 mg/dL 0.55-1.30 [facility] ([facility]) Glomerular Filtration Rate 43.2 [facility] ([facility]) <content>Units are mL/min/1.73 m2</content>
<content></content>
<content>Chronic Kidney Disease Staging per NKF:</content>
<content></content>
<content>Stage I & II GFR >=60 Normal to Mildly Decreased</content>
<content>Stage III GFR 30- 59 Moderately Decreased</content>
<content>Stage IV GFR 15-29 Severely Decreased</content>
<content>Stage V GFR <15 Very Little GFR Left</content>
<content>ESRD GFR <15 on WEB KNITTER</content>
<content></content> Sodium Level 134 meq/L 136-145 [facility] ([facility]) Chloride Level 96 meq/L 98-107 [facility] ([facility]) Potassium Serum 4.5 meq/L 3.5-5.1 [facility] ([facility]) Testing was performed on a SLIGHTLY hemo lyzed specimen. Suggest recollection of specimen for more accurate test results. Carbon Dioxide Level 28 meq/L 21-32 [facility] ([facility]) Anion Gap 10 meq/L 8-16 [facility] Calcium Level 9.5 mg/dL 8.8-10.2 [facility] ([facility]) ID Date Data Source [id number] 05/30/2020 09:52:00 AM EST [facility] ([facility]) Name Value Range Interpretation Code Description Data Maria Esther rce(s) Supporting Document(s) Albumin [Mass/volume] in Serum or Plasma 3.4 [facility] ([facility]) Alanine aminotransferase [Enzymatic activity/volume] in Serum or Pl asma 20 [facility] ([facility]) Calcium [Mass/volume] in Serum or Plasma 9.2 [facility] ([facility]) Carbon dioxide, total [Moles/volume] in Serum or Plasma 28 [facility] ([facility]) Chloride [Moles/volume] in Serum or Plasma 103 [facility] ([facility]) Potassium [Moles/volume] in Serum or Plasma 4.1 [facility] ([facility]) Alkaline phosphatase [Enzymatic activity/volume] in Serum or Plasma 5 8 [facility] ([facility]) Protein [Mass/volume] in Serum or Plasma 6.6 [facility] ([facility]) Sodium 140 [facility] ([facility]) Aspartate aminotransferase [Enzymatic activity/volume] in Serum or Plasma 16 [facility] ([facility]) Urea nitrogen [Mass/volume] in Serum or Plasma 31 [facility] ([facility]) Glucose 145 70-100 [facility] ([facility]) Creatinine For GFR 1.48 [facility] ([facility]) ID Date Data Source [id number] 05/30/2020 09:52:00 AM EST [facility] Name Value Range Interpretation Code Description Data Maria Esther rce(s) Supporting Document(s) Magnesium Level 2.0 1.8-2.4 [facility] ([facility]) ID Date Data Source [id number] 05/30/2020 09:52:00 AM EST [facility] Name Value Range Interpretation Code Description Data Maria Esther rce(s) Supporting Document(s) White Blood Count 5.5 4.0-10.0 [facility] ([facility]) Platelets 232 150-450 [facility] ([facility]) Red Blood Count 3.18 4.00-5.40 [facility] ([facility]) Hemoglobin 9.4 [facility] ([facility]) Hematocrit 30.3 [facility] ([facility]) ID Date Data Source [id number] 05/28/2020 02:14:00 PM EST [facility] Name Value Range Interpretation Code Description Data Maria Esther rce(s) Supporting Document(s) SARS coronavirus 2 RNA [Presence] in Res piratory specimen by MARYANNE with probe detection NEGATIVE [facility] This lab was ordered by [facility] a nd reported by [facility]. ID Date Data Source [id number] 05/28/2020 09:43:00 AM EST [facility] ([facility]) Name Value Range Interpretation Code Description Data Maria Esther rce(s) Supporting Document(s) Calcium [Mass/volume] in Serum or Plasma 9.6 [facility] ([facility]) Sodium 136 [facility] Carbon dioxide, total [Moles/volume] in Serum or Plasma 30 [facility] ([facility]) Chloride [Moles/volume] in Serum or Plasma 99 [facility] ([facility]) Potassium [Moles/volume] in Serum or Plasma 5.0 [facility] ([facility]) Glucose 221 70-100 [facility] Blood Urea Nitrogen 43 5-21 [facility] ([facility]) Creatinine 1.71 0.6-1.5 [facility] ([facility]) Glomerular filtration rate/1.73 sq M.pre dicted [Volume Rate/Area] in Serum or Plasma by Creatinine-based formula (MDRD) 31.2 [facility] ([facility]) ID Date Data Source [id number] 05/24/2020 10:10:00 AM EST [facility] Patient: DULCE RODAS Roshni tienma Report - [facility].VisitID: [id number] [place] [address] [phone], FRegistration Date/Time: 05/21/2020 00:11 Weight:62.1 kg (M). Height/Length:62 inches. BMI:25.1 Obs Start: 05/21/2020 11:23 Obs Dispo: 05/23/2020 15:10 Obs Duration: 52 hr 52 min PAST HISTORYMedications:Iron Oral 1 tab , daily, last dose yesterday pm.Magnesium Oral (Capsule 400 mg) 2 capsules, daily, last dose yesterday pm.Trandolapril Oral (Tablet 1 mg) 1/2 tablet, daily at bedtime, last dose yesterday pm.DULoxetine HCl Oral (Capsule Delayed Release Particles 60 mg) 1 capsule, daily, last dose yesterday evening .Gabapentin Oral (Tablet 800 mg) 1 tablet, daily every PM, last dose yesterday evening .Brilinta Oral (Tablet 90 mg) 1 tablet, 2x a day, last dose yesterday am and pm .Ranolazine ER Oral (Tablet Extended Release 12 Hour 500 mg) 1 tablet, 2x a day, last dose yesterday am .Omeprazole Oral (Tablet Delayed Release 20 mg) 1 tablet, daily, last dose yesterday am .Isosorbide Mononitrate ER Oral (Tablet Extended Release 24 Hour 30 mg) 1 tablet, daily, last dose yesterday am .Glipizide Oral (Tablet 5 mg) 1 tablet, 2x a day, last dose yesterday am and pm .Carvedilol Phosphate ER Oral 12.5mg , 2x a day every AM, every PM, last dose yesterday am and pm .Atorvastatin Calcium Oral (Tablet 80 mg) 1 tablet, daily, last dose yesterday am.Aspirin Oral (Tablet Chewable 81 mg) 1 tablet, daily every AM, last dose yesterday am . Allergies:No Known Drug Allergy.No Known Environmental Allergies. FAMILY HISTORYNegative - denies family medical history (noncontributory d/t advanced age). (Electronically signed by Kameron Lloyd DO 05/24/2020 10:06) Weight:62.1 kg (M). Height/Length:62 inches. BMI:25.1 Obs Start: 05/21/2020 11:23 Obs Dispo: 05/23/2020 15:10 Obs Duration: 52 hr 52 min Time Seen: (11:00), initial patient contact, received patient report. ED care transferred. Historian- patient, EMS personnel and family. Decision to end Obs: 15:10 05/23/2020. HISTORY OF PRESENT ILLNESSChief Complaint: DYSPNEA and HISTORY OF CONGESTIVE HEART FAILURE. This started just prior to arrival This is a 74 year old female with past medical history of CAD,Acute Coronary Syndrome, CHD with diastolic dysfunction, chronic kidney disease, esophageal reflux, hypertension, hyperlipidemia, type 2 diabetes mellitus, hypomagnesemia, history of subdural intracranial bleeding, peripheral artery disease with history of stent placement in the right leg, history of cor onary stent placed 6 stents September 2019 and 9 stents in March 2019, history of cataract surgery cholecystectomy, hysterectomy, unilateral oophorectomy and tubal ligation who presented to emergency department of [facility] on 05/21/2020 shortly after midnight brought by EMS complaining of severe dyspnea and symptoms of congestive heart failure exacerbation. He was recently seen at [facility] emergency department and was transferred to [facility] with NSTEMI. She did have an echo done there was no cardiac catheterization as the patient had the last one 6 months ago with last stent placement. Her echocardiogram was largely unchanged, LV diastolic dysfunction was confirmed.There were medications changes at the time of discharge, metformin was discontinued and Glyburide was started. Also patient???s diuretic were discontinued and there was no fluid restriction ordered.Today Mrs Rodas presented with acute respiratory failure and fluid overload that required intens e care to resolve. At the time of transfer to upstairs floor patient???s breathing difficulty is largely resolved. Patients admission weight was not measured bur copied from the previous measurement, and is still present. The dyspnea is severe and is worsened by being in a supine position and is improved with sitting upright. The patient has had a cough, wheezing, orthopnea and tingling. No sputum production, fever, sweating episodes or chest pain or discomfort. No calf pain, foot swelling, anxiety, dizziness or numbness. No palpitations. Similar symptoms previously. None. Recent medical care: The patient was seen recently and hospitalized. REVIEW OF SYSTEMSThe patient has had recent weight loss (weight gain). Has not had moderate weight loss. No muscle aches, eye irritation, sore throat, nasal discharge or nausea. No vomiting, abdominal pain, diarrhea, black stools or headache. No fainting episodes, blurred vision, difficulty with urination, excessive urination or skin rash. No enlarged lymph nodes or joint pain. The patient has had sinus drainage. All other systems reviewed and are negative. PAST HISTORYSee nurses notes. Emphysema. Renal failure. No history of heart disease, hypertension or diabetes mellitus. Problems:Anxiety Reaction [Chronic].Aneurysm (brain X2) [Chronic]. (Left side )Coronary Artery Disease [Chronic].Acute Coronary Syndrome [Chronic].Gastroesophageal Reflux [Chronic].Hypertension [Chronic].Hypercholesterolemia [Chronic].Neuropathy [Chronic].Heart Disease [Chronic].Diabetes Mellitus Type 2 [Chronic].Diabetes Mellitus. Additional Surgeries:Breast Biopsy.Cardiac Catheterization.Cardiac stents. (6 stents in September 2019 , 9 stents in march 2019 )Cataract Surgery.Cholecystectomy.Hysterectomy.Oophorectomy. (Unilateral)Stent in right leg.Tubal Ligation. Medications:Iron Oral 1 tab , daily, last dose yesterday pm.Magnesium Oral (Capsule 400 mg) 2 capsules, daily, last dose yesterday pm.Trandolapril Oral (Tablet 1 mg) 1/2 tablet, daily at bedtime, last dose yesterday pm.DULoxetine HCl Oral (Capsule Delayed Release Particles 60 mg) 1 capsule, daily, last dose yesterday evening .Gabapentin Oral (Tablet 800 mg) 1 tablet, daily every PM, last dose yesterday evening .Brilinta Oral (Tablet 90 mg) 1 tablet, 2x a day, last dose yesterday am and pm .Ranolazine ER Oral (Tablet Extended Release 12 Hour 500 mg) 1 tablet, 2x a day, last dose yesterday am .Omeprazole Oral (Tablet Delayed Release 20 mg) 1 tablet, daily, last dose yesterday am .Isosorbide Mononitrate ER Oral (Tablet Extended Release 24 Hour 30 mg) 1 tablet, daily, last dose yesterday am .Glipizide Oral (Tablet 5 mg) 1 tablet, 2x a day, last dose yesterday am and pm .Carvedilol Phosphate ER Oral 12.5mg , 2x a day every AM, every PM, last dose yesterday am and pm .Atorvastatin Calcium Oral (Tablet 80 mg) 1 tablet, daily, last dose yesterday am.Aspirin Oral (Tablet Chewable 81 mg) 1 tablet, daily every AM, last dose yesterday am . Allergies:No Known Drug Allergy.No Known Environmental Allergies. SOCIAL HISTORYNever smoker. No alcohol use or drug use. No recent travel. Is a local resident. ADDITIONAL NOTESThe nursing notes have been reviewed with agreement regarding the chief complaint, HPI, PMH and patient medications and allergies. PHYSICAL EXAMAppearance: Alert. No acute distress. Eyes: Pupils equal, round and reactive to light. Eyes normal inspection. ENT: Ears normal. Nose normal. Pharynx normal. Uvula midline. Neck: Normal inspection. No jugular venous distention. Neck supple. CVS: Normal heart rate and rhythm. Heart sounds normal. Pulses normal. Respiratory: No respiratory distress. Breath sounds normal. Abdomen: Soft and nontender. No organomegaly. Back: Normal inspection. Skin: Skin warm but moist. Normal skin color. No rash. Abnormal skin turgor. Extremities: Extremities exhibit normal ROM. No lower extremity edema. Neuro: Oriented X 3. No motor deficit. No sensory deficit. Reflexes normal. LABS, X-RAYS, AND EKGLaboratory Tests: COVID-19 IN-HOUSE: (YI: 05/21/2020 08:42)( MsgRcvd 05/21/2020 09:05) New Order TSYSORDER [id number] Test Result Flag Units (Reference)COVID-19 NEGATIVE (NEGATIVE) Negative results should be treated as presumptive and, ifinconsistent with clinical signs and symptoms [...] are for the indentification of SARS-CoV-2 RNA. [id number] RNA is generally detectable in respiratorysamples during the actue phase of infection. BMP: (YI: 05/21/2020 03:35)( MsgRcvd 05/21/2020 03:56) New Order TSYSORDER [id number] Test Result Flag Units (Reference)GLUCOSE 296 H mg/dL (74-106) BLOOD UREA NITROGEN 20 H mg/dL (7-18) CREATININE 1.30 H mg/dL (0.6-1.0) SODIUM 135 L mmol/L (136-145) POTASSIUM 4.9 mmol/L (3.5-5.1) CHLORIDE 101 mmol/L (98-107) CO2 26 mmol/L (21-32) CALCIUM 8.7 mg/dL (8.5-10.1) ANION GAP 8.0 mmol/L (5-12) GLOMERULAR FILTRATION RATE 40 mL/min GFR IS CALCULATED IN mL/min/[id number] FUNCTION: >90MILDLY DECREASED: 60-89MILDY TO MODERATELY DECREASED: 45-59 MODERATELY TO SEVERELY DECREASED: 30-44SEVERELY DECREASED: 15-29RENAL FAILURE: <15 VENOUS BLOOD GAS: (YI: 05/21/2020 01:30)( MsgRcvd 05/21/2020 01:40) New Order TSYSORDER [id number] Test Result Flag Units (Reference)PH 7.27 L (7.31-7.41) VENOUS PCO2 60.3 H mmHg (41-51) VENOUS PO2 33 L mmHg (35-42) VENOUS BLODD O2 SATURATION 32.9 L % (68-77) VENOUS BLOOD HCO3 26.8 H meq/L (24.0-25.0) VENOUS BASE EXCESS -0.2 (-3.0-3.0) VENOUS BLOOD CO2 28.7 mmol/L (23.0-32.0) Chest 1V: (YI: 05/21/2020 00:46)( NhgRcvd 05/21/2020 06:19) F Test Result Flag Units (Reference)CHEST 1 VIEW DATE OF EXAMINATION: 05/21/2020 0:50 EST -- -- CHEST 1 VIEW -- HISTORY: Chest pain -- TECHNIQUE: Single frontal radiograph of chest -- COMPARISON: 03/22/2020 -- -- FINDINGS: -- Chronic interstitial changes are appreciated and right lower lobe infiltrate cannot be excluded. No effusion. No pneumothorax. Mediastinum and cardiac silhouette are stable and within normal limits. Skeletal structures demonstrate stable degenerative changes. -- -- IMPRESSION: -- Cannot exclude right lower lobe infiltrate. -- Electronically signed in PS360 by: Lorri Palacios M.D. 05/21/2020 6:12 EST -- -- Dictated by: LORRI PALACIOS w Diff: (YI: 05/21/2020 00:19)( [facility] New Order TSYSORDER [id number] Test Result Flag Units (Reference)WHITE BLOOD COUNT 10.4 H K/mm3 (4.0-10.0) RED BLOOD COUNT 3.12 L M/mm3 (4.00-5.50) HEMOGLOBIN 9.4 L gm/dL (12.0-16.0) HEMATOCRIT 29.9 L % (36.0-48.8) MEAN CELL VOLUME 95.8 fl (80-96) MEAN CORPUSCULAR HEMOGLOBIN 30.1 pg (27.0- 31.0) MEAN CORPUSCULAR HGB CONC 31.4 L g/dl (32.0-36.0) RED CELL DISTRIBUTION WIDTH 14.5 % (10.0-14.5) PLATELET COUNT 325 K/mm3 (172-450) MEAN PLATELET VOLUME 11.2 fl (9.0-13.0) GRAN % 70.1 % (50-80.0) IG% 1.1 H % (0.0-0.2) LYMPH % 19.8 L % (25.0- 50.0) MONO % 6.6 % (2.0-10.0) EOS % 2.2 % (0-5.0) BASO % 0.2 % (0.0-2.0) GRAN # 7.3 K/mm3 (2.0-8.00) IG# 0.1 K/mm3 (0.0-0.2) LYMPH # 2.1 K/mm3 (1.0-5.0) MONO # 0.7 K/mm3 (0.10- 1.20) EOS # 0.2 K/mm3 (0.0-0.5) BASO # 0.0 K/mm3 (0.0-0.2) PT with INR: (YI: 05/21/2020 00:19)( MsgRcvd 05/21/2020 01:24) New Order TSYSORDER [id number] Test Result Flag Units (Reference)PROTHROMBIN TIME (PATIENT) 10.7 SECONDS (9.1-11.6) INR 1.03 (0.87-1.06) PARTIAL THROMBOPLASTIN TIME SECONDS (21.2-27.3) LESS THAN 17.8 CMP: (YI: 05/21/2020 00:19)( [facility] 05/21/2020 01:11) New Order TSYSORDER [id number] Test Result Flag Units (Reference)GLUCOSE 317 H mg/dL (74-106) BLOOD UREA NITROGEN 19 H mg/dL (7-18) CREATININE 1.07 H mg/dL (0.6-1.0) SODIUM 137 mmol/L (136-145) POTASSIUM 5.6 H mmol/L (3.5-5.1) CHLORIDE 101 mmol/L (98-107) CO2 27 mmol/L (21-32) CALCIUM 8.8 mg/dL (8.5-10.1) ANION GAP 9.0 mmol/L (5-12) GLOMERULAR FILTRATION RATE 50 mL/min GFR IS CALCULATED IN mL/min/1.61z4UHEZJN FUNCTION: >90MILDLY DECREASED: 60-89MILDY TO MODERATELY DECREASED: 45-59 MODERATELY TO SEVERELY DECREASED: 30-44SEVERELY DECREASED: 15-29RENAL FAILURE: <15 AST 28 U/L (15-37) ALT 25 U/L (12-78) ALKALINE PHOSPHATASE 53 U/L (46-116) TOTAL BILIRUBIN 0.5 mg/dL (0.2-1.0) TOTAL PROTEIN 7.0 g/dl (6.4-8.2) ALBUMIN 3.6 gm/dL (3.4-5.0) TROPONIN I 0.017 ng/mL (0.0-0.056) T4 Free: (YI: 05/21/2020 00:19)( [facility] 05/21/2020 01:19) New Order Test Result Flag Units (Reference)TSH 9.284 H uIU/mL (0.36- 3.74) FREE T4 0.8 ng/dL (0.76-1.46) UA CULTURE IF INDICATED: (YI: 05/21/2020 00:19)( [facility] 01:40[facility] New Order URINE SOURCE? URINE, CLEAN CATCHTSYSORDER [id number] Test Result Flag Units (Reference)URINE COLOR. YELLOW URINE APPEARANCE CLEAR URINE GLUCOSE (UA) 500 H mg/dL (NEGATIVE) URINE BILIRUBIN NEGATIVE (NEGATIVE) URINE KETONE NEGATIVE mg/dL (NEGATIVE) SPECIFIC GRAVITY,URINE 1.020 (1.001- 1.035) URINE BLOOD NEGATIVE (NEGATIVE) PH,URINE 7.0 (5.0-9.0) URINE PROTEIN 1+(30) H mg/dL (NEGATIVE) URINE UROBILINOGEN NORMAL(0.2-1) mg/dL (0-1) URINE NITRATE NEGATIVE (NEGATIVE) URINE LEUKOCYTE ESTERASE NEGATIVE (NEGATIVE) URINE BACTERIA TRACE H (NONE SEEN) Magnesium: (YI: 05/21/2020 00:19)( MsgRcvd 05/21/2020 03:01) New Order TSYSORDER [id number] Test Result Flag Units (Reference)MAGNESIUM 2.1 mg/dL (1.8-2.4) B-TYPE NATRIURETIC PEPTIDE 3692 *H pg/ml (0-125) . PROGRESS AND PROCEDURESCourse of Care: 11:30 am I did inform Mrs Rodas we need to recheck her electrolytes and try to induce more diuresis. For some reason she was discharged from the hospital with no fluid restriction, no limited salt diet and no diuretics. That can easily lead to fluid overload. With CKD taking Glimepiride places the patient at risk of hypoglycemia lasting one or two days due to slower metabolism of this medication.Glimepiride is relatively safe only in people with CrCl over 60.Mrs Rodas CrCl was 48 at best.The safest [id number] for her would still be Long lasting insulin. 05/23/2020 14:50. Evaluation after observation and IV and oral medication. The patient's symptoms are now gone. Patient is not having pain. No chest pain, difficulty breathing, nausea, vomiting or palpitations. No anxiety, dizziness or seizure. Physical exam findings are improved. Alert. Oriented X3. No acute distress. Breath sounds normal. No respiratory distress. Normal heart rate and rhythm. Heart sounds normal. Abdomen soft and nontender. Skin warm and dry. Oriented X 3. 11:0 Mrs Rodas is transitioned from ED to MED SURG unit for further observation. She was treated for acute on chronic congestive heart failure before. She was recently discharged from [facility] after having NSTEMI. She has known congestive heart failure AND chronic kidney disease that make her very prone to fluid overload. 05/21/2020 1155 Looking into patients charts in the past she used to be on Spironolactone and Chlorthalidone. She was told at the time of discharge to stop her water pill because of her kidneys. 05/21/2020 16:11 BP: 106/60. MAP: 75. HR: 103. RR: 17. O2 saturation: 97%. Temp: 98.9 F. Pain level now: 0/10.05/21/2020 11:57 BP: 139/73. MAP: 95. HR: 78. RR: 18. O2 saturation: 94%. Temp: 97.4 F. Pain level now: 010.05/21/2020 10:00 HR: 75. O2 saturation: 100% on room air. Pain level now: 0/10. Vital Signs: have been reviewed. 05/21/2020 16:35Patient is resting. Sitting on the edge of her bed. she is in no acute distress.Patient admits to feeling much better then last night. She denies any chest pain or chest pressure. She denies any abdominal pain.,nausea she denies any symptoms. The patient's symptoms are now gone. Symptoms almost gone. Patient is not having pain. No chest pain, difficulty breathing, nausea, vomiting or palpitations. No anxiety, dizziness or seizure. Physical exam findings are not improved. Alert. Oriented X3. No acute distress. Breath sounds normal. No respiratory distress. Normal heart rate and rhythm. Heart sounds normal. Abdomen soft and nontender. Skin warm and d ry. Oriented X 3. 05/21/2020 16:00 I asked the patient againg about her "water pill". I also asked the patient whether she got any instructions on low salt diet. Mrs Rodas asked"why am I retaining water"? I am sure the patient did receive multiple info after discharge from the hospital for congestive heart failure but she may have lost the papers We did discuss the heart in kidney role in retaining fluid. We did discuss the role of salt in bringing more water for the heart to pump and how unhealthy it was for the heart damaged my heart disease and hypertension. We will provide the patient with written information on low sodium diet. 05/22/2020 03:10 BP: lying 97/62. MAP: 73. HR: 113. RR: 18. O2 saturation: 97% on room air. Temp: 97.1 F. Pain level now: 0.05/21/2020 23:20 BP: lying 92/57. MAP: 68. HR: 107. RR: 20. O2 saturation: 94% on room air. Temp: 98.7 F.05/21/2020 20:24 BP: lying 92/64. MAP: 73. HR: 102. RR: 18. O2 saturation: 93% on room air. Temp: 98.9 F. Pain level now: . 21:00 mRS Rodas HAD LOW bp READINGS LIKELY DUE TO THE CUMMULATIVE EFFECT OF A SUCCESSFUL DIURESIS AND HER MEDICATION. AM Brady Rodas is resting. She admits to feeling better. With her recentMI (05/15/2020) and yesterdays acute fluid overload and heart failure she must remain stable for 24 hrs before discharge home. We did talk again about salty food and foods that dont feel salty but have hidden salt such processed frozen dinners and cold cuts, Canned soups and canned food. 05/22/2020 20:52 BP: lying 169/69. MAP: 102. HR: 81. RR: 18. O2 saturation: 98% on room air. Temp: 98.5 F. Pain level now: 0.05/22/2020 03:10 BP: lying 97/62. MAP: 73. HR: 113. RR: 18. O2 saturation: 97% on room air. Temp: 97.1 F. Pain level now: 0. 05/22/2020 Mrs Rodas admits to feeling very tired but denies any shortness of breath, chest pain or palpitations. Patient is not having pain. No chest pain, difficulty breathing, nausea, vomiting or palpitations. No anxiety or dizziness. Physical exam findings are not improved. Alert. Not oriented X3. In distress. Breath sounds normal. No respiratory distress. Normal heart rate and rhythm. Heart sounds normal. Abdomen soft and nontender. Skin warm and dry. Oriented X 3. 05/22 2020 16:00 Mrs Rodas was still low with her BP overnigt . We did discuss today her kidney function , her heart and her diabetes. When it comes to her heart we will arrange for a prompt follow up with cardiology. The issue with patients diuretics has to be sorted out between cardiology and nephrology. When it comes to her diabetes - Mrs Rodas was on Levemir before. Long lasting insulin would be the safest to use it this pleasant patient with CKD. 05/22/2020 16:00. Evaluation after observation. The patient's symptoms are now gone. Patient is not having pain. No chest pain, difficulty breathing, nausea, vomiting or palpitations. No anxiety, dizziness or seizure. Physical exam findings are improved. Alert. Oriented X3. No acute distress. Breath sounds normal. No respiratory distress. Normal heart rate and rhythm. Heart sounds normal. Abdomen soft and nontender. Skin warm and dry. Oriented X 3. 05/23/2020 9 am I reviewed lab test results with the patient.Her blood pressures seem to normalize now. 05/23/2020 I provided the patient with instructions ofn low sodium diet and CHF . 05/23/2020 11:00 BP: 118/62. MAP: 80. HR: 71. RR: 18. O2 saturation: 97% on room air. Temp: 98.7 F. Pain level now: 0/10.05/23/2020 07:00 BP: 126/68. MAP: 87. HR: 70. RR: 16. O2 saturation: 97% on room air. Temp: 98.2 F. Pain level now: 0/10.05/23/2020 01:16 BP: lying 112/52. MAP: 72. HR: 55. RR: 16. O2 saturation: 95% on room air. Temp: 98.3 F. Pain level now: 0/10. Vital Signs: have been reviewed. The patient's symptoms are now gone. Symptoms much better. Patient counseled regarding the patient's condition, test results and diagnosis. Patient agrees with plan of care. Disposition: Discharged home in stable condition. Condition: stable. CLINICAL IMPRESSIONAcute respiratory failure with hypoxemia. Acute severe diastolic, congestive heart failure. HyperkalemiaHypertensive UrgencyCKD stage IIIHyperglycemiaChronic Anemia (stable H/H). Coronary Artery Disease. [facility] [place] (05/15/2020 NSTEMI) Diabetes Mellitus. INSTRUCTIONSNo strenuous activity. Follow a low salt diet and diabetic diet Follow a low cholesterol diet Follow a low salt diet. Avoid tobacco smoke. (You will also need to see kidney specialist and your real estate specialist.). Warnings: Further evaluation is necessary in order to recheck abnormal lab, obtain test results and conduct further tests (With your primary care, nephrology and Dr Gibbs). It is very important to follow up with a healthcare provider. GENERAL WARNINGS: Return or contact your physician immediately if your condition worsens or changes unexpectedly, if not improving as expected, or if other problems arise. SPECIFICALLY, return if you develop chest pain, neck pain, jaw pain, shoulder pain, arm pain, fever, productive cough, difficulty breathing, excessive fatigue, a fluttering sensation in the chest, fainting or leg swelling. Your Current Medications: Your current home medications have been reviewed. STOP TAKING THE FOLLOWING MEDICATIONS:Glipizide Oral : Tablet 5 mg, 1 tablet 2x a day, Last: yesterday am and pm. CONTINUE TAKING THE FOLLOWING MEDICATIONS:Aspirin Oral : Tablet Chewable 81 mg, 1 tablet daily, Last: yesterday am, every AM. Atorvastatin Calcium Oral : Tablet 80 mg, 1 tablet daily, Last: yesterday am. Brilinta Oral : Tablet 90 mg, 1 tablet 2x a day, Last: yesterday am and pm. Carvedilol Phosphate ER Oral : 12.5mg 2x a day, Last: yesterday am and pm, every AM, every PM. DULoxetine HCl Oral : Capsule Delayed Release Particles 60 mg, 1 capsule daily, Last: yesterday evening. Gabapentin Oral : Tablet 800 mg, 1 tablet daily, Last: yesterday evening, every PM. Isosorbide Mononitrate ER Oral : Tablet Extended Release 24 Hour 30 mg, 1 tablet daily, Last: yesterday am. Magnesium Oral : Capsule 400 mg, 2 capsules daily, Last: yesterday pm. Omeprazole Oral : Tablet Delayed Release 20 mg, 1 tablet daily, Last: yesterday am. Ranolazine ER Oral : Tablet Extended Release 12 Hour 500 mg, 1 tablet 2x a day, Last: yesterday am. Trandolapril Oral : Tablet 1 mg, 1/2 tablet daily, Last: yesterday pm, at bedtime. Iron Oral : 1 tab daily, Last: yesterday pm. Prescription Medications:Lasix 20 mg: take 1 orally. Dispense thirty (30). No refills. Levemir FlexTouch U-100 Insuln (insulin detemir u-100) insulin pen Administer 10 unit every morning for 30 days -- Your dose will need to be further adjusted over the next few days. Dispense 5 Pen. Refills: 0. Substitution permitted.In [facility] - [address] [address] , [place] [address]. . furosemide 20 mg tablet Take 1 tablet once a day for 30 days -- Dispense 30 tablet. Refills: 0. Substitution permitted.[facility] - [address] [address] , [place] [address]. . Follow-up:Follow up with your healthcare provider Tomorrow at 2 pm as scheduled even if well. Reason for referral: evaluation and treatment. Summary of care provided to follow-up provider. Understanding of the discharge instructions verbalized by patient. (Electronically signed by Pat Marcelino MD 05/23/2020 15:57) Name Value Range Interpretation Code Description Data [facility](s) Supporting Document(s) ID Date Data Source [id number] 05/23/2020 10:22:00 AM [facility] TSYSORDER [id number] Name Value Range Interpretation Code Description Data [facility](s) Supporting Document(s) GLUCOSE 303 mg/dL 74-106 H [facility] BLOOD UREA NITROGEN 26 mg/dL 7-18 H [facility] ital CREATININE 1.36 mg/dL 0.6-1.0 H [facility] SODIUM 133 mmol/L 136-145 L [facility] POTASSIUM 4.6 mmol/L 3.5-5.1 [facility] CHLORIDE 97 mmol/L 98-107 L [facility] CO2 26 mmol/L 21-32 [facility] CALCIUM 9.3 mg/dL 8.5-10.1 [facility] ANION GAP 10.0 mmol/L 5-12 [facility] GLOMERULAR FILTRATION RATE 38 mL/min [facility] GFR IS CALCULATED IN mL/min/1.73m2 MALINDA L FUNCTION: >90MILDLY DECREASED: 60-89MILDY TO MODERATELY DECREASED: 45-59 MODERATELY TO SEVERELY DECREASED: 30-44SEVERELY DECREASED: 15-29RENAL FAILURE: <15 AST 21 U/L 15-37 [facility] ALT 21 U/L 12-78 [facility] ALKALINE PHOSPHATASE 58 U/L 46-116 [facility] TOTAL BILIRUBIN 0.6 mg/dL 0.2-1.0 [facility] TOTAL PROTEIN 6.9 g/dl 6.4-8.2 [facility] ALBUMIN 3.6 gm/dL 3.4-5.0 [facility] ID Date Data Source [id number] 05/23/2020 10:21:00 AM [facility] TSYSORDER [id number] Name Value Range Interpretation Code Description Data Maria Esther e(s) Supporting Document(s) MAGNESIUM 1.7 mg/dL 1.8-2.4 L [facility] ID Date Data Source [id number] 05/23/2020 10:17:00 AM [facility] TSYSORDER [id number] Name Value Range Interpretation Code Description Data Maria Esther e(s) Supporting Document(s) WHITE BLOOD COUNT 6.8 K/mm3 4.0-10.0 [facility] al RED BLOOD COUNT 3.27 M/mm3 4.00-5.50 L [facility] HEMOGLOBIN 10.1 gm/dL 12.0-16.0 L [facility] HEMATOCRIT 29.9 % 36.0-48.8 L [facility] MEAN CELL VOLUME 91.4 fl 80-96 [facility] MEAN CORPUSCULAR HEMOGLOBIN 30.9 pg 27.0-31.0 [facility] MEAN CORPUSCULAR HGB CONC 33.8 g/dl 32.0-36.0 [facility] RED CELL DISTRIBUTION WIDTH 14.6 % 10.0-14.5 H [facility] PLATELET COUNT 254 K/mm3 172-450 [facility] MEAN PLATELET VOLUME 10.9 fl 9.0-13.0 [facility] pital GRAN % 76.1 % 50-80.0 [facility] IG% 0.4 % 0.0-0.2 H [facility] LYMPH % 14.7 % 25.0-50.0 L [facility] MONO % 7.5 % 2.0-10.0 [facility] EOS % 1.2 % 0-5.0 [facility] BASO % 0.1 % 0.0-2.0 [facility] GRAN # 5.2 K/mm3 2.0-8.00 [facility] IG# 0.0 K/mm3 0.0-0.2 [facility] LYMPH # 1.0 K/mm3 1.0-5.0 [facility] MONO # 0.5 K/mm3 0.10-1.20 [facility] EOS # 0.1 K/mm3 0.0-0.5 [facility] BASO # 0.0 K/mm3 0.0-0.2 [facility] ID Date Data Source [id number] 05/22/2020 07:21:00 AM [facility] l TSYSORDER [id number] Name Value Range Interpretation Code Description Data Maria Esther rce(s) Supporting Document(s) HGBA1C 6.5 % 3.8-5.6 H [facility] Diabetic > or = to 6.5%Prediabetes 5.7-6 .4%Normal <5.7 ESTIMATED AVERAGE GLUCOSE 139.9 mg/dL [facility] ID Date Data Source [id number] 05/22/2020 07:21:00 AM [facility] l TSYSORDER [id number] Name Value Range Interpretation Code Description Data [facility] Esther rce(s) Supporting Document(s) C REACTIVE PROTEIN 8.4 mg/L 0.0-3.0 H [facility] luis ID Date Data Source [id number] 05/22/2020 07:21:00 AM [facility] l TSYSORDER [id number] Name Value Range Interpretation Code Description Data [facility] Esther rce(s) Supporting Document(s) GLUCOSE 150 mg/dL 74-106 H [facility] BLOOD UREA NITROGEN 29 mg/dL 7-18 H [facility] ital CREATININE 1.48 mg/dL 0.6-1.0 H [facility] SODIUM 139 mmol/L 136-145 [facility] POTASSIUM 4.2 mmol/L 3.5-5.1 [facility] CHLORIDE 103 mmol/L 98-107 [facility] CO2 28 mmol/L 21-32 [facility] CALCIUM 8.9 mg/dL 8.5-10.1 [facility] ANION GAP 8.0 mmol/L 5-12 [facility] GLOMERULAR FILTRATION RATE 35 mL/min [facility] GFR IS CALCULATED IN mL/min/1.73m2 MALINDA L FUNCTION: >90MILDLY DECREASED: 60-89MILDY TO MODERATELY DECREASED: 45-59 MODERATELY TO SEVERELY DECREASED: 30-44SEVERELY DECREASED: 15-29RENAL FAILURE: <15 AST 15 U/L 15-37 [facility] ALT 17 U/L 12-78 [facility] ALKALINE PHOSPHATASE 44 U/L 46-116 L [facility] TOTAL BILIRUBIN 0.5 mg/dL 0.2-1.0 [facility] TOTAL PROTEIN 6.2 g/dl 6.4-8.2 L [facility] ALBUMIN 3.0 gm/dL 3.4-5.0 [facility] ID Date Data Source [id number] 05/22/2020 07:21:00 AM [facility] TSYSORDER [id number] Name Value Range Interpretation Code Description Data [facility](s) Supporting Document(s) MAGNESIUM 1.8 mg/dL 1.8-2.4 [facility] ID Date Data Source [id number] 05/22/2020 06:42:00 AM [facility] TSYSORDER [id number] Name Value Range Interpretation Code Description Data [facility](s) Supporting Document(s) WHITE BLOOD COUNT 7.0 K/mm3 4.0-10.0 [facility] al RED BLOOD COUNT 2.80 M/mm3 4.00-5.50 L [facility] HEMOGLOBIN 8.5 gm/dL 12.0-16.0 [facility] HEMATOCRIT 26.0 % 36.0-48.8 [facility] MEAN CELL VOLUME 92.9 fl 80-96 [facility] MEAN CORPUSCULAR HEMOGLOBIN 30.4 pg 27.0-31.0 [facility] MEAN CORPUSCULAR HGB CONC 32.7 g/dl 32.0-36.0 [facility] RED CELL DISTRIBUTION WIDTH 14.8 % 10.0-14.5 H [facility] PLATELET COUNT 215 K/mm3 172-450 [facility] MEAN PLATELET VOLUME 10.8 fl 9.0-13.0 [facility] pital GRAN % 60.0 % 50-80.0 [facility] IG% 0.1 % 0.0-0.2 [facility] LYMPH % 30.2 % 25.0-50.0 [facility] MONO % 8.0 % 2.0-10.0 [facility] EOS % 1.6 % 0-5.0 [facility] BASO % 0.1 % 0.0-2.0 [facility] GRAN # 4.2 K/mm3 2.0-8.00 [facility] IG# 0.0 K/mm3 0.0-0.2 [facility] LYMPH # 2.1 K/mm3 1.0-5.0 [facility] MONO # 0.6 K/mm3 0.10-1.20 [facility] EOS # 0.1 K/mm3 0.0-0.5 [facility] BASO # 0.0 K/mm3 0.0-0.2 [facility] ID Date Data Source [id number] 05/21/2020 08:42:00 AM EST [facility] Name Value Range Interpretation Code Description Data Maria Esther rce(s) Supporting Document(s) COVID-19 NEGATIVE [facility] This lab was [facility] by [facility] and reported by [facility]. ID Date Data Source [id number] 05/21/2020 09:04:00 AM EST [facility] TSYSORDER [id number] Name Value Range Interpretation Code Description Data Maria Esther rce(s) Supporting Document(s) COVID-19 NEGATIVE NEGATIVE [facility] Negative results should be treated as pr [...] are for the indentification of SARS-CoV-2 RNA. MhiLYWZ-DgT-0 RNA is generally detectable in respiratorysamples during the actue phase of infection. ID Date Data Source [id number] 05/21/2020 06:19:00 AM EST [facility] DATE OF EXAMINATION: 05/21/2020 0:50 EST CHEST 1 VIEW HISTORY: Chest pain TECHNIQUE: Single frontal radiograph of chest COMPARISON: 03/22/2020 FINDINGS: Chronic interstitial changes are appreciated and right lower lobe infiltratecannot be excluded. No effusion. No pneumothorax. Mediastinum and cardiacsilhouette are stable and within normal limits. Skeletal structures demonstratestable degenerative changes. IMPRESSION: Cannot exclude right lower lobe infiltrate. Electronically signed in [id number] by: Lorri Palacios M.D. 05/21/2020 6:12 EST Name Value Range Interpretation Code Description Data Maria Esther rce(s) Supporting Document(s) ID Date Data Source [id number] 05/21/2020 03:55:00 AM EST [facility] TSYSORDER [id number] Name Value Range Interpretation Code Description Data Maria Esther rce(s) Supporting Document(s) GLUCOSE 296 mg/dL 74-106 H [facility] BLOOD UREA NITROGEN 20 mg/dL 7-18 [facility] CREATININE 1.30 mg/dL 0.6-1.0 [facility] SODIUM 135 mmol/L 136-145 L [facility] POTASSIUM 4.9 mmol/L 3.5-5.1 [facility] CHLORIDE 101 mmol/L 98-107 [facility] CO2 26 mmol/L 21-32 [facility] CALCIUM 8.7 mg/dL 8.5-10.1 [facility] ANION GAP 8.0 mmol/L 5-12 [facility] GLOMERULAR FILTRATION RATE 40 mL/min [facility] GFR IS CALCULATED IN mL/min/1.73m2 MALINDA L FUNCTION: >90MILDLY DECREASED: 60-89MILDY TO MODERATELY DECREASED: 45-59 MODERATELY TO SEVERELY DECREASED: 30-44SEVERELY DECREASED: 15-29RENAL FAILURE: <15 ID Date Data Source [id number] 05/21/2020 01:38:00 AM EST [facility] TSYSORDER [id number] Name Value Range Interpretation Code Description Data Maria Esther rce(s) Supporting Document(s) PH 7.27 7.31-7.41 [facility] VENOUS PCO2 60.3 mmHg 41-51 [facility] VENOUS PO2 33 mmHg 35-42 [facility] VENOUS BLODD O2 SATURATION 32.9 % 68-77 L [facility] VENOUS BLOOD HCO3 26.8 meq/L 24.0-25.0 [facility] BASE EXCESS -0.2 -3.0-3.0 [facility] VENOUS BLOOD CO2 28.7 mmol/L 23.0-32.0 [facility] ID Date Data Source [id number] 05/21/2020 03:00:00 AM [facility] TSYSORDER [id number] Name Value Range Interpretation Code Description Data Maria Esther rce(s) Supporting Document(s) B-TYPE NATRIURETIC PEPTIDE 3692 pg/ml 0-125 *[facility] ID Date Data Source [id number] 05/21/2020 03:00:00 AM [facility] TSYSORDER [id number] Name Value Range Interpretation Code Description Data Maria Esther rce(s) Supporting Document(s) MAGNESIUM 2.1 mg/dL 1.8-2.4 [facility] ID Date Data Source [id number] 05/21/2020 01:19:00 AM [facility] TSYSORDER [id number] Name Value Range Interpretation Code Description Data Maria Esther rce(s) Supporting Document(s) URINE BACTERIA TRACE NONE SEEN [facility] ID Date Data Source [id number] 05/21/2020 01:27:00 AM [facility] ital TSYSORDER [id number] Name Value Range Interpretation Code Description Data Maria Esther rce(s) Supporting Document(s) URINE COLOR. [facility] URINE APPEARANCE CLEAR [facility] URINE GLUCOSE (UA) 500 mg/dL NEGATIVE [facility] URINE BILIRUBIN NEGATIVE NEGATIVE [facility] URINE KETONE NEGATIVE mg/dL NEGATIVE [facility] al SPECIFIC GRAVITY,URINE 1.020 1.001-1.035 [facility] URINE BLOOD NEGATIVE NEGATIVE [facility] PH,URINE 7.0 5.0-9.0 [facility] URINE PROTEIN 1+(30) mg/dL NEGATIVE [facility] URINE UROBILINOGEN NORMAL(0.2-1) mg/dL 0-1 [facility] URINE NITRATE NEGATIVE NEGATIVE [facility] URINE LEUKOCYTE ESTERASE NEGATIVE NEGATIVE [facility] ID Date Data Source [id number] 05/21/2020 01:34:00 AM [facility] TSYSORDER [id number] Name Value Range Interpretation Code Description Data Maria Esther rce(s) Supporting Document(s) B-TYPE NATRIURETIC PEPTIDE 3601 pg/ml 0-125 *[facility] ID Date Data Source [id number] 05/21/2020 01:14:00 AM EST [facility] TSYSORDER [id number] Name Value Range Interpretation Code Description Data Maria Esther rce(s) Supporting Document(s) MAGNESIUM 2.0 mg/dL 1.8-2.4 [facility] ID Date Data Source [id number] 05/21/2020 01:03:00 AM EST [facility] TSYSORDER [id number] Name Value Range Interpretation Code Description Data Maria Esther rce(s) Supporting Document(s) PROTHROMBIN TIME (PATIENT) 10.7 SECONDS 9.1-11.6 [facility] INR 1.03 0.87-1.06 [facility] ID Date Data Source [id number] 05/21/2020 01:17:00 AM EST [facility] TSYSORDER [id number] Name Value Range Interpretation Code Description Data Maria Esther rce(s) Supporting Document(s) FREE T4 0.8 ng/dL 0.76-1.46 [facility] ID Date Data Source [id number] 05/21/2020 01:17:00 AM EST [facility] TSYSORDER [id number] Name Value Range Interpretation Code Description Data Maria Esther rce(s) Supporting Document(s) TSH 9.284 uIU/mL 0.36-3.74 H [facility] ID Date Data Source [id number] 05/21/2020 01:09:00 AM EST [facility] TSYSORDER [id number] Name Value Range Interpretation Code Description Data Maria Esther rce(s) Supporting Document(s) TROPONIN I 0.017 ng/mL 0.0-0.056 [facility] ID Date Data Source [id number] 05/21/2020 01:09:00 AM EST [facility] TSYSORDER [id number] Name Value Range Interpretation Code Description Data Maria Esther rce(s) Supporting Document(s) GLUCOSE 317 mg/dL 74-106 H [facility] BLOOD UREA NITROGEN 19 mg/dL 7-18 H [facility] ital CREATININE 1.07 mg/dL 0.6-1.0 H [facility] SODIUM 137 mmol/L 136-145 [facility] POTASSIUM 5.6 mmol/L 3.5-5.1 H [facility] CHLORIDE 101 mmol/L 98-107 [facility] CO2 27 mmol/L 21-32 [facility] CALCIUM 8.8 mg/dL 8.5-10.1 [facility] ANION GAP 9.0 mmol/L 5-12 [facility] GLOMERULAR FILTRATION RATE 50 mL/min [facility] GFR IS CALCULATED IN mL/min/1.73m2 MALINDA L FUNCTION: >90MILDLY DECREASED: 60-89MILDY TO MODERATELY DECREASED: 45-59 MODERATELY TO SEVERELY DECREASED: 30-44SEVERELY DECREASED: 15-29RENAL FAILURE: <15 AST 28 U/L 15-37 [facility] ALT 25 U/L 12-78 [facility] ALKALINE PHOSPHATASE 53 U/L 46-116 [facility] TOTAL BILIRUBIN 0.5 mg/dL 0.2-1.0 [facility] TOTAL PROTEIN 7.0 g/dl 6.4-8.2 [facility] ALBUMIN 3.6 gm/dL 3.4-5.0 [facility] ID Date Data Source [id number] 05/21/2020 12:53:00 AM EST [facility] TSYSORDER [id number] Name Value Range Interpretation Code Description Data Maria Esther rce(s) Supporting Document(s) WHITE BLOOD COUNT 10.4 K/mm3 4.0-10.0 H [facility] luis RED BLOOD COUNT 3.12 M/mm3 4.00-5.50 L [facility] HEMOGLOBIN 9.4 gm/dL 12.0-16.0 L [facility] HEMATOCRIT 29.9 % 36.0-48.8 L [facility] MEAN CELL VOLUME 95.8 fl 80-96 [facility] l MEAN CORPUSCULAR HEMOGLOBIN 30.1 pg 27.0-31.0 [facility] MEAN CORPUSCULAR HGB CONC 31.4 g/dl 32.0-36.0 L [facility] RED CELL DISTRIBUTION WIDTH 14.5 % 10.0-14.5 [facility] PLATELET COUNT 325 K/mm3 172-450 [facility] MEAN PLATELET VOLUME 11.2 fl 9.0-13.0 [facility] pital GRAN % 70.1 % 50-80.0 [facility] IG% 1.1 % 0.0-0.2 [facility] LYMPH % 19.8 % 25.0-50.0 L [facility] MONO % 6.6 % 2.0-10.0 [facility] EOS % 2.2 % 0-5.0 [facility] BASO % 0.2 % 0.0-2.0 [facility] GRAN # 7.3 K/mm3 2.0-8.00 [facility] IG# 0.1 K/mm3 0.0-0.2 [facility] LYMPH # 2.1 K/mm3 1.0-5.0 [facility] MONO # 0.7 K/mm3 0.10-1.20 [facility] EOS # 0.2 K/mm3 0.0-0.5 [facility] BASO # 0.0 K/mm3 0.0-0.2 [facility] ID Date Data Source [id number] 05/16/2020 10:15:42 AM EST [facility] Name Value Range Interpretation Code Description Data Maria Esther rce(s) Supporting Document(s) &PDF [facility] RDLLJi3dQjVZEcQt57/NDNlqANGuu6GsWQzmXLo0UJfqXKWzR2VcfTrrRTDNCppCZ93WKCFTMCtFRdII yZW [file] CiAgICAgICAgICAgICAgICAgICAgICAgICAgICAgICAgICAgICAgICAgICAgICAgICAgICAgICAgICAg ICAgICAgICAgICAgICAgICAgICAgICAgICAgICAgIC AgICAgICAgICANCiAgICAgICAgICAgICAgICAgICAgICAgICAgICAgICAgICAgICAgICAgICAgICAgIC AgICAgICAgICAgICAgICAgICAgICAgICAgICAgICAgICAgICAgICAgICAgICAgICAgICANCiAgICAgIC AgICAgICAgICAgICAgICAgICAgICAgICAgICAgICAg ICAgICAgICAgICAgICAgICAgICAgICAgICAgICAgICAgICAgICAgICAgICAgICAgICAgICAgICAgICAg ICANCiAgICAgICAgICAgICAgICAgICAgICAgICAgICAgICAgICAgICAgICAgICAgICAgICAgICAgICAg ICAgICAgICAgICAgICAgICAgICAgICAgICAgICAgIC AgICAgICAgICAgICANCiAgICAgICAgICAgICAgICAgICAgICAgICAgICAgICAgICAgICAgICAgICAgIC AgICAgICAgICAgICAgICAgICAgICAgICAgICAgICAgICAgICAgICAgICAgICAgICAgICAgICANCiAgIC AgICAgICAgICAgICAgICAgICAgICAgICAgICAgICAg ICAgICAgICAgICAgICAgICAgICAgICAgICAgICAgICAgICAgICAgICAgICAgICAgICAgICAgICAgICAg ICAgICANCiAgICAgICAgICAgICAgICAgICAgICAgICAgICAgICAgICAgICAgICAgICAgICAgICAgICAg ICAgICAgICAgICAgICAgICAgICAgICAgICAgICAgIC AgICAgICAgICAgICAgICANCiAgICAgICAgICAgICAgICAgICAgICAgICAgICAgICAgICAgICAgICAgIC AgICAgICAgICAgICAgICAgICAgICAgICAgICAgICAgICAgICAgICAgICAgICAgICAgICAgICAgICANCi AgICAgICAgICAgICAgICAgICAgICAgICAgICAgICAg ICAgICAgICAgICAgICAgICAgICAgICAgICAgICAgICAgICAgICAgICAgICAgICAgICAgICAgICAgICAg ICAgICAgICANCiAgICAgICAgICAgICAgICAgICAgICAgICAgICAgICAgICAgICAgICAgICAgICAgICAg ICAgICAgICAgICAgICAgICAgICAgICAgICAgICAgIC AgICAgICAgICAgICAgICAgICANCjw/aMCiY3ggwZPasaU5Q5xbXy7HWu0NDO2cv2XwJRPbVMgpxlDqOk kDYyHqGPBbJlzVKew9JMcaGP4BzNOyQ5IeJ6RqSFgbCF6XUPBbSGCshGPgNWCxHHItQrH0GTWyQClsIZ 3CnNDzRYtfQWFkLREzQaZqJXSfJI5KGYRgQ870atBf Df8SLp0IJyLqTH1sno5FNkXsJYOaOhfKFtw1CUlrYD8GiMPoI1GasVQtl0eUIjYsO4PPPWI7YQMyEv7J IMPzWrBrBGQeQUqbVH1uVEWeSAVDoVcusnC6BT4JZR8edhPuUG5RHxPhWc7aAj5RFnVfP6MbM0XaBGFn NOWVDZncUQ6HLHHwUSS8BUJkSVIkRGVUZmTwM18cFS 6SB4Tsd58nJuE0TFOvUrKhIMexIP41vJlkxyHibEJofTgiLH2YRi0+DQplbmRvYmoNCnhyZWYNCjAgMj zCFgUqGDHiEXScWEVfUgG4KuGpDs4BEIDcIOUuWZPuIdAmMJObEQYgSItsBADuZWQ0LLV6THJpEGSaPG 1UWuOiHWSiUezvLQEhKQPfQKZhmb5VSMWlSBNpQUP0 VdDyUWAjUGIdKYmyCNKnCFNsIBudGWYfVUDfWJ3NIbIgZYKaQBJ3QVZhARCfXXDldy6IMWNaVCVvZcHw LSMqVEFnPFAlHTxjCUDvKXF3ApC7LXJuZZNtPW8KQwJsCKWjNVqcUtKgYXTePPBags4AXAHsKYSuPwE5 GPFvHEVdNSCgTRsaBBRsLZU4CIVjEQZfQZYpUF8VFe VqTHVjUGp5AHLyEVAhWPUzdj8PXQRuOMUlSJlqJjBsXGBlGMKjGTqyKQXyXEF4HCduURMhMMFhGS7DAi FqMGBrITJ4ZISmZKAmGAIttd0THHYcPUEqKDZ1EkUzZONyESJqBBnrWNWiLPW4Gtk5EYDeYLFvVS7YHl YqHBTwWGO9OFQvUYMeKGSlmh3MKMLuFMIbCTW4IrBb QPBvAIHkZRcoMORhEGY9PqT1WBMtHEKlDL1TZtUaBFNpQKV5FTohXHDvPZRhak6SVAYnIXLeHZr3JlPf UGTiTDDwXAhbELDeBSNnIRP6TJLpVSHaYO3YCuBiXKNcAvUjMEMjCBGtFPNnov2IBIXtKJNtWHe1WWJi UYVaUQXjPGmsMARpRPU2Gpa7EZXjAKZjWC9AQkYiWP vtMVLWScv0SCltS3p2JEKjRv0XH9Apu0EhVkHoNPXKREznUX4kyaCxQCWhFv3UV9eHRospZsifQUH4OF WwHSOuDLR1ZxrxLHP7ICT7QUJrQtPyQF3eUIJzPOD0Knn5DoRfMPVpKWopKEXhUva3KnIgBjV8EMD5Pz UpZK1ISm1RUvH5RXZ3jOQlJs0GNds9HoPIGpVrJE8WYUc= ID Date Data Source [id number] 05/16/2020 09:38:18 AM EST [facility] NT INFORMATIONPatient MRN Name Date of Age Gend*PT [id number] Dulce Rodas 1945 74 years F IPPT Location Admission Date/Time Visit ID Attending [id number] 05/14/20 1900 --- Naveed Muse MD([id number]) EPI ID CSN Admitting Provider [id number] Fletcher Barba MD([id number]) [facility] DISCHARGE SUMMARYPatient Name: Dulce Rodas of : 1945 Age 74 yearsPrimary Physician: MYRIAM Carney PCP Niavnjhvg Date: 05/14/2020 Discharge Date:She will be discharged from [facility] to [facility] Diagnoses:Principal Problem:Type II RI secondary to anemia and renal insufficiencyActive Problems: Diabetic neuropathy Type 2 diabetes mellitus Hypertension Hypercholesterolemia Anxiety Coronary artery disease GERD (gastroesophageal reflux disease) History of coronary artery stent placement Fall CKD (chronic kidney disease) Diastolic heart failure Falls frequentlyDischarge Medications:Current Discharge Medication ListSTART taking these medications DetailsglipiZIDE (GLUCOTROL) 5 MG tablet Take 1 tablet (5 mg total) by mouth 2 (two)times a day before mealsQty: 60 tablet, Refills: 0CONTINUE these medications which have NOT CHANGED Detailsacetaminophen (TYLENOL) 325 MG tablet Take 2 tablets (650 mg total) by mouthevery 4 (four) hours as neededQty: 30 tablet, Refills: 0aspirin EC 81 MG EC tablet Take 81 mg by mouth dailyatorvastatin (LIPITOR) 80 MG tablet Take 80 mg by mouth dailycarvedilol (COREG) 25 MG tablet Take 12.5 mg by mouth 2 (two) times a dayDULoxetine (CYMBALTA) 60 MG capsule Take 60 mg by mouth dailygabapentin (NEURONTIN) 800 MG tablet Take 800 mg by mouth nightlyisosorbide mononitrate (IMDUR) 30 MG 24 hr tablet Take 30 mg by mouth dailymagnesium oxide (MAG-OX) 400 MG tablet Take 1 tablet (400 mg total) by mouth 2(two) times a dayQty: 60 tablet, Refills: 0nitroglycerin (NITROSTAT) 0.[address] 1 tablet (0.4 mg total) underthe tongue every 5 (five) minutes as needed for chest painQty: 90 tablet, Refills: 12omeprazole (PRILOSEC) 20 MG capsule Take 20 mg by mouth dailyranolazine (RANEXA) 500 MG 12 hr tablet Take 500 mg by mouth 2 (two) times a dayticagrelor (BRILINTA) 90 MG TABS Take 90 mg by mouth 2 (two) times a daySTOP taking these medications metFORMIN (GLUCOPHAGE) 1000 MG tablet pantoprazole (PROTONIX) 40 MG tabletFollow Up Instructions:The patient was given an after visit summary.Patient will follow up with PCP in 3 to 7 days.Cardiology call to scheduleItems needing special attention:Follow-up CBC BMP with PCPContinue to follow-up with cardiology closely keep off diuretics unless needed will defer to outpatient PCP and cardiologyBrief Hospital Course:In summary this is a 75 female with past medical history significant forcoronary artery disease status post PCI and drug-eluting stents placement inJune 2019 history of diastolic heart failure history of hypertensionhyperlipidemia history of anemia patient was complaining of shortness of breathon exertion relieved by rest during hospital stay mainly she complained of chestheaviness EKG was normal sinus rhythm no ST-T changes suggestive of ischemianoted to have elevated cardiac biomarkers along with wor sening of renalfunctions and anemia cardiology was consulted in view of her symptomatology andelevated cardiac biomarkers this was deemed to be secondary to type II RI fromdemand ischemia her symptomatology subsided we ended up holding her Lasix andher renal functions improved cardiology recommended to continue guidelinedirected therapy for stable ischemic heart diseasePatient today seen and examined she is hemodynamically stable obtainechocardiogram prior to discharge and another troponin is negative we willproceed with discharging the patient today this was discussed with the patientwho is agreeable and discussed also with her daughterPatient was advised if there is any exception of symptoms significant attentionimmediatelyDischarge Exam:Blood Pressure: BP: 140/64 Pulse: Heart Rate: 80Temperature: Temp: 98.4 F Respirations: Resp: 18Admission Weight: Weight: 59.4 kg (131 lb) O2 Saturation: SpO2: 94 %Discharge Weight: Weight: 59.4 kg (131 lb) BMI: Body mass index is 23.96 kg/m .Physical Exam General alert, in no apparent distress HEENT Normal Lungs decreased breath sounds bilateral bases Heart S1-S2 heard Abdomen soft, non-tender, non-distended, no organomegaly or masses Musculoskeletal negative Neuro mental status, speech normal, alert and oriented b0Hpdsjsllapt:Imaging:Echocardiogram pending prior to dischargeChest x-ray done on 05/14/2020IMPRESSION: There is no evidence of heart failure or pneumonia.Procedures:NoneConsultants:CardiologyRecent Labs:BMP:Lab ResultsComponent Value Date NA 141 05/16/2020 K 3.7 05/16/2020 CL 107 05/16/2020 CO2 24 05/16/2020 ANIONGAP 10 05/16/2020 CALCIUM 8.5 05/16/2020 GLU 117 (H) 05/16/2020 BUN 41 (H) 05/16/2020 CREATININE 1.41 (H) 05/16/2020 GFRAA 44 (L) 05/16/2020 GFRNONAA 37 (L) 05/16/2020ardiac:Lab ResultsComponent Value Date TROPONINI 0.45 (H) 05/14/2020 POCTROP 1.28 (H) 10/12/2019 POCTROP 1.31 (H) 10/12/2019 PROBNP 5,984 (H) 05/14/2020BC with Diff:Lab ResultsComponent Value Date WBC 5.5 05/16/2020 RBC 2.77 (L) 05/16/2020 HGB 8.5 (L) 05/16/2020 HCT 25.1 (L) 05/16/2020 MCV 90.5 05/16/2020 MCH 30.6 05/16/2020 MCHC 33.8 05/16/2020 RDW 15.3 (H) 05/16/2020 PLT 174 05/16/2020 MPV 8.8 05/16/2020 LYMPHOPCT 19.7 10/12/2019 MONOPCT 6.1 10/12/2019 EOSPCT 2.0 10/12/2019 BASOPCT 0.7 10/12/2019 NEUTROABS 6.1 10/12/2019 MONOABS 0.5 10/12/2019 BASOSABS 0.1 10/12/2019HgbA1c:Lab ResultsComponent Value Date HGBA1C 6.4 (H) 10/06/2019Hyperlipidemia:Lab ResultsComponent Value Date CHOL 79 05/14/2020 TRIG 66 05/14/2020 HDL 50 05/14/2020 CHOLHDL 1.6 05/14/2020 LDLCALC 16 05/14/2020Thyroid:Lab ResultsComponent Value Date TSH 1.431 05/14/2020Naveed Muse MD9:30 AMTotal time spent for discharge on date of discharge: 40 minutes Name Value Range Interpretation Code Description Data Maria Esther rce(s) Supporting Document(s) ID Date Data Source [id number] 05/16/2020 10:47:52 AM EST [facility] Name Value Range Interpretation Code Description Data Maria Esther rce(s) Supporting Document(s) TROPONIN I 0.15 ng/mL (<0.05) H [facility]INE[facility] Y Less than 0.05: Myocardial injury unlike lyGreater than or equal to 0.05: Highly suggestive of myocardial injuryCorrelation with rise and/or fall ofserial troponins, clinical symptomsand ECG changes is necessary. ID Date Data Source [id number] 05/16/2020 10:42:57 AM EST [facility] Name Value Range Interpretation Code Description Data Maria Esther rce(s) Supporting Document(s) APTT 67.9 s (22.0-34.3) H [facility] ID Date Data Source [id number] 05/16/2020 05:08:22 AM EST [facility] Name Value Range Interpretation Code Description Data Maria Esther rce(s) Supporting Document(s) SODIUM 141 mmol/L (136-145) [facility] POTASSIUM 3.7 mmol/L (3.6-5.2) [facility] CHLORIDE 107 mmol/L (100-108) [facility] CO2 24 mmol/L (22-31) [facility] ANION GAP 10 mmol/L (7-16) [facility] UREA NITROGEN 41 mg/dL (7-24) H [facility] CREATININE 1.41 mg/dL (0.60-1.00) H [facility] BUN/CREAT RATIO 29.1 RATIO (10.0-20.0) H [facility] GLUCOSE 117 mg/dL (70-99) H [facility] CALCIUM 8.5 mg/dL (8.4-10.2) [facility] GFR 37 ml/min/1.73m2 (>59) L [facility] GFR ( AMER) 44 ml/min/1.73m2 (>59) L [facility] GFR INTERPRETATION [facility] --NORMAL KIDNEY FUNCTION OR MILD DISEASE - GFR >OR= 60CHRONIC KIDNEY DISEASE - GFR 15 - 59RENAL FAILURE - GFR <15 Est. GFR calculation based on the MDRDstudy equation, which assumes a steadystate for creatinine. Est. GFR should notbe used for medication dosing. ID Date Data Source [id number] 05/16/2020 04:54:10 AM EST [facility] Name Value Range Interpretation Code Description Data Maria Esther rce(s) Supporting Document(s) APTT 53.5 s (22.0-34.3) H [facility] ID Date Data Source [id number] 05/16/2020 04:44:10 AM EST [facility] Name Value Range Interpretation Code Description Data Maria Esther rce(s) Supporting Document(s) WBC 5.5 10*3/uL (4.1-11.0) [facility] RBC 2.77 10*6/uL (4.00-5.40) L [facility] HGB 8.5 g/dL (12.0-16.0) L [facility] HCT 25.1 % (36.0-47.0) L [facility] MCV 90.5 fL (80.0-95.0) [facility] MCH 30.6 pg (27.0-32.0) [facility] MCHC 33.8 g/dL (32.0-36.0) [facility] RDW 15.3 % (10.5-14.5) H [facility] PLT 174 10*3/uL (150-450) [facility] MPV 8.8 fL (7.1-10.7) [facility] ID Date Data Source [id number] 05/15/2020 09:05:26 PM EST [facility] Name Value Range Interpretation Code Description Data Maria Esther rce(s) Supporting Document(s) APTT 52.3 s (22.0-34.3) H [facility] ID Date Data Source [id number] 05/15/2020 06:28:43 PM EST [facility] Name Value Range Interpretation Code Description Data Maria Esther rce(s) Supporting Document(s) POC NOVA GLU 175 mg/dL (70-99) H [facility] [place] [facility] STAFF ID Date Data Source [id number] 05/15/2020 01:47:40 PM EST [facility] Name Value Range Interpretation Code Description Data Maria Esther rce(s) Supporting Document(s) POC NOVA GLU 168 mg/dL (70-99) H [facility] [place] [facility] ID Date Data Source [id number] 05/15/2020 11:00:00 AM EST [facility] Name Value Range Interpretation Code Description Data Maria Esther rce(s) Supporting Document(s) Triglycerides 66 [facility] ([facility] Cholesterol 79 0-200 [facility]) HDL 50 [facility] Cholesterol in LDL [Mass/volume] in Serum or Plasma by calculation 16 [facility] ([facility]) Chol/HDL Ratio 1.6 [facility]) ID Date Data Source [id number] 05/15/2020 01:05:55 PM EST [facility] Name Value Range Interpretation Code Description Data Maria Esther rce(s) Supporting Document(s) APTT 41.1 s (22.0-34.3) H [facility] ID Date Data Source [id number] 05/15/2020 10:34:20 AM EST [facility] INFORMATIONPatient MRN Name Date of Age Gend*PT [id number] Dulce Rodas 1945 74 years F IPPT Location Admission Date/Time Visit ID Attending [id number] 05/14/20 1900 --- Naveed Muse MD([id number]) EPI ID CSN Admitting Provider [id number] Fletcher Barba MD([id number])Name: Dulce Ferreira DruMRN:[id number]: [id number]: 05/15/2020Time: 10:20 AMReason for Consultation:Referring Physician:SUBJECTIVE: Pt seen and examined. Alert and awake in NAD. SR on monitor.Notes reviewed in EPIC. MAR reviewed on 05/15/2020 at 10:20 AM. [id number] past medical history significant for history of for CAD status post PCIand drug-eluting stent placement as detailed. History of diastolic heartfailure, history of hypertension, hyperlipidemia. History of anemia. Patientis symptomatic with history of shortness of breath mainly on exertion relievedwith rest denies any chest pain. During the hospital stay serial EKG normalsinus rhythm no ST-T changes suggestive ischemia, noted to have a elevatedcardiac biomarker along with the worsening renal function and anemia.Cardiology consultation requested in view of for shortness of breath andelevated cardiac biomarker. Will call this valvulopathy not likely somestiffness mainly of tricuspid valve normal. But would not decide whatcardiomyopathy mean Adderall because it increases her tachycardia if they haveambulating risk factor for CAD this is an additional risk factor benefitinglikely from hypertension smoking history it increase your chance of CAD but notlike a myopathy is that I mainly valvular heart disease it increases the risk ofischemic heart disease if you have other risk factor is more valve issue thenlessPMH:Past Medical History:Diagnosis Date Abnormal EKG [address] bell, baseline EKG is sinus rhythm, frequent PACs, poor Rwave progression, nonspecific ST-T wave abnormality, repolarizationabnormalities. Anxiety Cellulitis of left toe Coronary artery disease Diabetic neuropathy GERD (gastroesophageal reflux disease) Hypercholesterolemia Hypertension Onychomycosis Paronychia of great toe of left foot 04/22/2019 Peripheral artery disease Type 2 diabetes mellitus Wound healing, delayedFam:Family HistoryProblem Relation Age of Onset Diabetes type II Mother Myocardial Infarction (RI) Mother Heart disease Father Myocardial Infarction (RI) Father Myocardial Infarction (RI) Brother Age 59 Myocardial Infarction (RI) Brother age 46 Heart attack Sister age 72SOC:Social HistorySocioeconomic History Marital status: Spouse name: Not [...] Packs/day: 1.50 Years: 30.00 Pack years: 45.00 Types: Cigarettes Last attempt to quit: 1992 Years since quittin.0 Smokeless tobacco: Never UsedSubstance and Sexual Activity Alcohol use: Not Currently Comment: Occasionally Drug use: Never Sexual activity: Not CurrentlyLifestyle Physical activity: Days per week: Not on file Minutes per session: Not on file Stress: Not on fileRelationships Social connections: Talks on phone: Not on file Gets together: Not on file Attends methodist service: Not on file Active member of [...] Narrative Patient has family members she lives withMED:@CMEDED@ aspirin EC 81 mg Oral Daily atorvastatin 80 mg Oral Nightly carvedilol 12.5 mg Oral BID DULoxetine 60 mg Oral Daily furosemide 20 mg Intravenous Twice Daily for Loop Diuretics gabapentin 800 mg Oral Nightly insulin lispro 1-2 Units Subcutaneous With meals sliding scale isosorbide mononitrate 30 mg Oral Daily Magnesium Oxide 400 mg Oral BID nitroglycerin 0.5 g Topical Q6H RITCHIE normal saline flush 3 mL Intravenous Q8H RITCHIE normal saline flush 3 mL Intravenous Q8H RITCHIE pantoprazole 40 mg Oral Daily ranolazine 500 mg Oral BID ticagrelor 90 mg Oral BIDALL:No Known Drug AllergiesLabs/Diagnostic Tests: BMP:Lab ResultsComponent Value Date NA 140 05/15/2020 K 3.6 05/15/2020 CL 103 05/15/2020 CO2 28 05/15/2020 ANIONGAP 9 05/15/2020 CALCIUM 8.8 05/15/2020 GLU 148 (H) 05/15/2020 BUN 42 (H) 05/15/2020 CREATININE 1.77 (H) 05/15/2020 GFRAA 34 (L) 05/15/2020 GFRNONAA 28 (L) 05/15/2020ardiac:Lab ResultsComponent Value Date TROPONINI 0.45 (H) 05/14/2020 POCTROP 1.28 (H) 10/12/2019 POCTROP 1.31 (H) 10/12/2019 PROBNP 5,984 (H) 05/14/2020BC with Diff:Lab ResultsComponent Value Date WBC 6.7 05/15/2020 RBC 2.98 (L) 05/15/2020 HGB 9.3 (L) 05/15/2020 HCT 26.6 (L) 05/15/2020 MCV 89.3 05/15/2020 MCH 31.3 05/15/2020 MCHC 35.0 05/15/2020 RDW 15.4 (H) 05/15/2020 PLT 191 05/15/2020 MPV 9.1 05/15/2020 LYMPHOPCT 19.7 10/12/2019 MONOPCT 6.1 10/12/2019 EOSPCT 2.0 10/12/2019 BASOPCT 0.7 10/12/2019 NEUTROABS 6.1 10/12/2019 MONOABS 0.5 10/12/2019 BASOSABS 0.1 10/12/2019Coags:Lab ResultsComponent Value Date PROTIME 11.0 11/25/2019 INR 1.05 11/25/2019 APTT 52.4 (H) 05/15/2020Hyperlipidemia:Lab ResultsComponent Value Date CHOL 79 05/14/2020 TRIG 66 05/14/2020 HDL 50 05/14/2020 CHOLHDL 1.6 05/14/2020 LDLCALC 16 05/14/2020VS:Blood pressure 109/53, pulse 82, temperature 98 F, resp. rate 18, height1.575 m (5' 2"), weight 59.4 kg (131 lb), SpO2 94 %, not currentlybreastfeeding.I&O's:Intake/Output Summary (Last 24 hours) at 05/15/2020 1020Last data filed at 05/15/2020 0600Gross per 24 hourIntake 392.97 mlOutput Net 392.97 mlROS:ROS EXAM:CONSTITUTIONAL: No change in weight, No weakness, No fatigue and No fevers,sweats, or chillsEYES:no vision changes or dischargeENT:No hearing loss,rhinitis,hoarseness,massesPULMONARY: No cough, sputum, or hemoptysis, No wheezing, No shortness or breathand No recent change in breathingCARDIOVASCULAR: No chest pain, No shortness of breath, No dyspnea on exertion,No orthopnea, No paroxysmal nocturnal dyspnea, No edema, No palpitations and NosyncopeGASTROINTESTINAL: No abdominal pain, No change in bowel habits, No significantchange in appetite, No nausea, vomiting, diarrhea, or constipation, Nohematemesis, No blood in stools or black tarry stools, No dysphagiaGU : No dysuria, No frequency, No incontinence and No urgencyHEMATOLOGIC: No coagulation disorder, No anemia, No abnormal bleeding, NobruisingEXTREMITIES: No pain, redness or swelling on the joints,SKIN/INTEGUMENTARY: No rash and No itchingNEUROLOGIC: Normal balance and No weaknessPSYCHIATRIC: No depression, No anxiety and No psychosisALLERGY/IMMUN: No allergic triggersENDOCRINE: No thyroid trouble and No excessive thirst or urinationSLEEP: No sleep disordersPHYSICAL EXAMI NATION:General: alert, healthy, no distress, well nourished and well developedHENT: Normocephalic,no corneal arcus,no xanthomasOropharynx: mucous membranes are moistNeck: supple, no adenopathy, carotid up stroking is normal bilaterally nobruits, no JVD, neck veins flat, trachea midlineHeart: regular rate & rhythm, no murmurs, rubs and no gallopsLungs: clear to auscultation,no wheezing,rhonchi or rales,no use of accessorymuscles,symetrical chest wall movementPulses: radial=2/4, carotid=2/4 w/o bruits, femoral=2/4, posterior tibial=2/4,dorsalis pedis=2/4Abdomen: abdomen soft, non-tender, normal bowel sounds, no masses ororganomegaly and no bruitsExtremities: no edema, no clubbing, no cyanosis, No clinical signs of a DVT,Strength equal bilaterallyNeuro Exam: alert & oriented x 3 with fluent speech,no abnormal movementsSkin:skin color, texture, turgor are normalMusculoskeletal: No pain10/13/2019.75-year-old woman with prior myocardial infarction status post drug-elutingstent to the right and LAD presenting now with non-Q wave myocardial infarction.1. Critical multilevel in-stent restenosis in the proximal mid and distal rightcoronary artery and critical stenosis in the ostium of the po sterolateral branchstatus post complex intervention with 5 drug-eluting stents for Xience stentsinside the previously deployed [...] which is diffusely seen in the small distalvessels.EKG normal sinus rhythm no ST-T changes suggestive of ischemiaIMPRESSION AND PLAN:Principal Problem: NSTEMI (non-ST elevated myocardial infarction)Active Problems: Diabetic neuropathy Type 2 diabetes mellitus Hypertension Hypercholesterolemia Anxiety Coronary artery disease GERD (gastroesophageal reflux disease) History of coronary artery stent placement Fall CKD (chronic kidney disease) Diastolic heart failure Falls frequentlyNon-ST elevation RI: Probably demand ischemia in the setting of anemia andkidney insufficiencyCAD status post PCI and stent placement as detailed aboveDiastolic heart failureHypertensionHyperlipidemiaAcute kidney insufficiencyCurrently she is symptomatic with history of for shortness of breath denies anychest pain. EKG normal sinus rhythm no ST-T changes suggestive of ischemia.Noted to have elevated cardiac biomarker in the setting of anemia and also acutekidney insufficiency. Probably this is secondary to demand ischemia type II.She needed good hydration to see whether her renal function going to improve.And also need a further evaluation for underlying anemia. In the setting offirst stable symptoms with the anemia and kidney insufficiency avoid left heartcatheterization. In meantime follow-up with renal function with hydration. Andalso guideline directed therapy for stable ischemic heart disease. Discussed with the primary teamThank you for providing an opportunity to participate in this patient care. Ifyou have any question please do not hesitate to call us back.SHAREE Murphy MD, FACC, FASE, FASNC110:20 AMThis document or parts of this document, were dictated using [employer]. A reasonable attempt at proofreading has been made to minimize errors.Please call with any questions or corrections Name Value Range Interpretation Code Description Data Maria Esther rce(s) Supporting Document(s) ID Date Data Source [id number] 05/15/2020 09:33:34 AM EST [facility] Name Value Range Interpretation Code Description Data Maria Esther rce(s) Supporting Document(s) POC NOVA GLU 171 mg/dL (70-99) H [facility] PERFORMED BY [facility]INICAL STAFF ID Date Data Source [id number] 05/15/2020 08:52:06 AM EST [address] [address] Name: DULCE RODASDOB: 1945Sex: FOrdering Provider: YURI CHURCHuthyaima Prov: YURI WILLETTARefergayle Provider: Procedure Performed: XR CHEST PORTABLEExam Date: 05/14/2020 21:22MRN: [id number] Number: [id number] Class: InpatientAccount #: [id number] for Exam: chest painTechnique: AP portable view obtained.Comparison: 10/12/2019Findings: Aortic calcifications are noted. Mediastinal contours are distorted by projection and shallow inspiration. Costophrenic angles are sharp. Pulmonary vasculature is crowded.IMPRESSION: There is no evidence of heart failure or pneumonia.Report electronically signed by: MIKA LEHMAN On 05/15/2020 8:52 AMWorkstation ID: [id number] Name Value Range Interpretation Code Description Data Maria Esther rce(s) Supporting Document(s) ID Date Data Source [id number] 05/15/2020 04:18:10 AM EST [facility] Name Value Range Interpretation Code Description Data Maria Esther rce(s) Supporting Document(s) SODIUM 140 mmol/L (136-145) [facility] POTASSIUM 3.6 mmol/L (3.6-5.2) [facility] CHLORIDE 103 mmol/L (100-108) [facility] CO2 28 mmol/L (22-31) [facility] ANION GAP 9 mmol/L (7-16) [facility] UREA NITROGEN 42 mg/dL (7-24) H [facility] CREATININE 1.77 mg/dL (0.60-1.00) H [facility] BUN/CREAT RATIO 23.7 RATIO (10.0-20.0) H [facility] GLUCOSE 148 mg/dL (70-99) H [facility] CALCIUM 8.8 mg/dL (8.4-10.2) [facility] GFR 28 ml/min/1.73m2 (>59) L [facility] GFR ( AMER) 34 ml/min/1.73m2 (>59) L [facility] GFR INTERPRETATION [facility] --NORMAL KIDNEY FUNCTION OR MILD DISEASE - GFR >OR= 60CHRONIC KIDNEY DISEASE - GFR 15 - 59RENAL FAILURE - GFR <15 Est. GFR calculation based on the MDRDstudy equation, which assumes a steadystate for creatinine. Est. GFR should notbe used for medication dosing. ID Date Data Source [id number] 05/15/2020 03:27:07 AM EST [facility] Name Value Range Interpretation Code Description Data [facility]) Supporting Document(s) APTT 52.4 s (22.0-34.3) H [facility] ID Date Data Source [id number] 05/15/2020 03:16:21 AM EST [facility] Name Value Range Interpretation Code Description Data Maria Esther rce(s) Supporting Document(s) WBC 6.7 10*3/uL (4.1-11.0) [facility] RBC 2.98 10*6/uL (4.00-5.40) L [facility] HGB 9.3 g/dL (12.0-16.0) L [facility] HCT 26.6 % (36.0-47.0) L [facility] MCV 89.3 fL (80.0-95.0) [facility] MCH 31.3 pg (27.0-32.0) [facility] MCHC 35.0 g/dL (32.0-36.0) [facility] RDW 15.4 % (10.5-14.5) H [facility] PLT 191 10*3/uL (150-450) [facility] MPV 9.1 fL (7.1-10.7) [facility] ID Date Data Source [id number] 05/15/2020 01:03:47 AM EST [facility] CenterPATIE NT INFORMATIONPatient MRN Name Date of Age Gend*PT [id number] Dulce Rodas 1945 74 years F IPPT Location Admission Date/Time Visit ID Attending [id number] 05/14/201899 --- Naveed Muse MD([id number]) EPI ID CSN Admitting Provider [id number] Fletcher Barba MD([id number]) Attestation signed by Fletcher Barba MD at 05/15/2020 1:03 AMDOS: 05/14/2020I saw and evaluated the patient and reviewed cell geneticist note. I agree with thehistory, physical and medical decision making with the following additio ns,exceptions, and/or observations. ADMISSION HISTORY AND PHYSICALName: Dulce Rodas Gender: femaleDate of : 1945 Age: 74 yearsDate/Time of Admit: 05/14/2020 7:00 PM Code Status: Full CodePrimary Care Provider / Referring Physician: SEN CarneyPInformant:Current HistoryChief Complaint: Patient transfers [facility] with non-STEMIHPI:This patient is a 74 years female with medical history of PVD, CAD (s/p complexintervention with a total of 4 LAN in the proximal right and balloon angioplastyof the distal right on 04/22/2019. Subsequently she had a staged LAN to mid LADand successful complex intervention with LAN x4 to the mid right coronary arteryat the crux of the vess el and balloon angioplasty to posterolateral branch ofthe right on April 29, 2019), history of hyperlipidemia, T2DM, hypertension,GERD, who transfers from [facility] with non-STEMI.Patient was admitted to [facility] November 25, 2019 with upper GI bleed. 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 Shewas discharged home on DAPT including Brilinta and aspirin. Echocardiogram ofJun2019 revealed LVEF 55 to 60% and LV diastolic function with elevatedfilling pressure.Dulce Rodas reports that this morning after getting out of bed she wasmaking her bed when she had sudden onset shortness of breath and sharp pain inthe left shoulder radiating down the left arm associated with nausea,lightheadedness. Her daughter who was present called EMS promptly. Patientrepots that her symptoms lasted until she was medicated in the hospital.Per transfer records, patient was noted to have SPO2 in mid 80s by EMS and wasstarted on 3 liters of oxygen with good effect; eventually SPO2 improved to 92%on room air. Family gave her aspirin and 1 nitro prior to arrival to ED in [facility].Work-up in [facility] included the following:Chest x-ray revealed diffuse bilateral interstitial infiltratesCOVID- 19 test negativeBP was elevated 226/99WBC 9, H&H 9.5 and 31, platelets 206, BUN and creatinine 39 and 1.24, [id number], potassium 5.0, troponin 0.23-0.23, NT proBNP 2904.EKG sinus rhythm with occasional PVCs, TIBC, nonspecific T wave abnormalityPatient was treated with nitroglycerin ointment 0.5 then 1 g. Given irlmixdoh96 mg IV once and diuresed 2 L. Started on heparin infusion. She was given 12and half milligrams tablet of carvedilol once.She transferred to [facility] for further evaluation and cardiac catheterizationCardiologist: Dr. Ashby of Systems:Review of SystemsConstitution: Negative for chills, decreased appetite, diaphoresis, fever,malaise/fatigue, night sweats, weight gain and weight loss.HENT: Negative for congestion, ear discharge, ear pain, hearing loss, hoarsevoice, nosebleeds, odynophagia, sore throat, stridor and tinnitus.Eyes: Negative for blurred vision, discharge, double vision, pain, photophobia,redness, vision loss in left eye, vision loss in right eye, visual disturbanceand visual halos.Cardiovascular: Positive for chest pain (left shoulder pain radiating down theleft arm). Negative for claudication, cyanosis, irregular heartbeat, legswelling, near-syncope, orthopnea, palpitations, paroxysmal nocturnal dyspneaand syncope.Respiratory: Positive for shortness of breath. Negative for cough, hemoptysis,sleep disturbances due to breathing, snoring, sputum production and wheezing.Endocrine: Negative.Hematologic/Lymphatic: Negative.Skin: Negative.Musculoskeletal: Negative.Gastrointestinal: Positive for nausea. Negative for bloating, abdominal pain,anorexia, change in bowel habit, bowel incontinence, constipation, diarrhea,dysphagia, excessive appetite, flatus, heartburn, hematemesis, hematochezia,hemorrhoids, jaundice, melena and vomiting.Genitourinary: Negative for bladder incontinence, dysuria, flank pain,frequency, genital sores, hematuria, hesitancy, incomplete emptying, nocturia,pelvic pain and urgency.Neurological: Positive for light-headedness (lightheadedness in the setting ofanginal symptoms). Negative for aphonia, brief paralysis, difficulty withconcentration, disturbances in coordination, excessive daytime sleepiness,dizziness, focal weakness, headaches, loss of balance, numbness, paresthesias,seizures, sensory change, tremors, vertigo and weakness.Psychiatric/Behavioral: Negative.Allergic/Immunologic: [...] delayedPast Surgical History:Procedure Laterality Date BREAST BIOPSY Left CARDIAC CATHETERIZATION N/A 04/24/2019 Procedure: Percutaneous coronary [...] wall motion Cataract surgery CHOLECYSTECTOMY Myocardial infarction 1993 OOPHORECTOMY PANENDOSCOPY 11/25/2019 Procedure: ENDOSCOPY, UPPER GASTROINTESTINAL (GI) TRACT W ARGON PLASMACOAGULATION; Surgeon: Laura Sinclair MD;; Peripheral artery stenting Right leg TUBAL LIGATION WOUND DEBRIDEMENTFamily HistoryProblem Relation Age of Onset Diabetes type II Mother Myocardial Infarction (RI) Mother Heart disease Father Myocardial Infarction (RI) Father Myocardial Infarction (RI) Brother Age 59 Myocardial Infarction (RI) Brother age 46 Heart attack Sister age [...] Packs/day: 1.50 Years: 30.00 Pack years: 45.00 Types: Cigarettes Last attempt to quit: 1992 Years since quittin.0 Smokeless tobacco: Never UsedSubstance and Sexual Activity Alcohol use: Not Currently Comment: Occasionally Drug use: Never Sexual activity: Not CurrentlyLifestyle Physical activity: Days per week: Not on file Minutes per session: Not on file Stress: Not on fileRelationships Social connections: Talks on phone: Not on file Gets together: Not on file Attends methodist service: Not on file Active member of [...] and AllergiesALLERGIES/SENSITIVITIES: No Known Drug AllergiesScheduled Meds: [START ON 05/15/2020] aspirin EC 81 mg Oral Daily atorvastatin 80 mg Oral Nightly carvedilol 12.5 mg Oral BID [START ON 05/15/2020] DULoxetine 60 mg Oral Daily gabapentin 800 mg Oral Nightly [START ON 05/15/2020] isosorbide mononitrate 30 mg Oral Daily Magnesium Oxide 400 mg Oral BID [START ON 05/15/2020] nitroglycerin 0.5 g Topical Q6H RITCHIE normal saline flush 3 mL Intravenous Q8H RITCHIE normal saline flush 3 mL Intravenous Q8H RITCHIE [START ON 05/15/2020] pantoprazole 40 mg Oral Daily ranolazine 500 mg Oral BID ticagrelor 90 mg Oral BIDContinuous Infusions: heparin (porcine) in NaCl 11.78 Units/kg/hr (05/14/201913)PRN Meds:.acetaminophen, atropine sulfate, heparin (porcine), nitroglycerin,ondansetronPhysicalBlood Pressure: BP: 158/65 Pulse: Heart Rate: 87Temperature: Temp: 97.8 F Respirations: Resp: 20Admission Weight: Weight: 59.4 kg (131 lb) O2 Saturation: SpO2: 99 %Today's Weight: Weight: 59.4 kg (131 lb)Physical ExamPhysical ExamConstitutional: She is oriented to person, place, and time. She appearswell-developed and well-nourished. No distress.HENT:Head: Normocephalic and atraumatic.Right Ear: External ear normal.Left Ear: External ear normal.Nose: Nose normal.Mouth/Throat: Oropharynx is clear and moist.Eyes: Pupils are equal, round, and reactive to light. Conjunctivae and EOM arenormal. Right eye exhibits no discharge. No scleral icterus.Right periorbital old healing ecchymosisNeck: Normal range of motion. Neck supple.Cardiovascular: Normal [...] of motion. She exhibits no edema, tenderness ordeformity.Left upper arm old healing soft to palpation ecchymosisNeurological: She is alert and oriented to person, place, and time.Skin: Skin is warm and dry. No rash noted. She is not diaphoretic. No erythema.No pallor.Psychiatric: She has a normal mood and affect. Her behavior is normal.DiagnosticsLab pendingAssessment & PlanThis is 75-year-old female patient with medical history of T2DM, CAD, diabeticneuropathy, hypertension, PVD who transfers from [facility] with non- STEMI.NSTEMI (non-ST elevated myocardial infarction)Troponin in [facility] was 0.23- 0.23EKG on admission sinus rhythm with frequent PVCs, ST depression and T waveinversion in anterior leadsPresently patient is comfortable and offers no anginal complaintsBP is stable 154/67 and 158/65 although remains elevated it has improved ascompared to SBPs greater than [address] [facility]Continue heparin infusion for full anticoagulationTrend troponin until peakContinue home medications including aspirin 81 mg daily, Brilinta 90 mg twicedaily, carvedilol 25 mg twice daily, isosorbide mononitrate 30 mg daily,ranolazine 500 mg twice daily, atorvastatin 80 mg nightly, nitroglycerin forchest painKeep n.p.o. after midnight until evaluated by cardiology in a.m.History of coronary artery stent placements/p complex intervention with a total of 4 LAN in the proximal right and balloonangioplasty of the distal right on 04/22/2019. Subsequently she had a stagedDES to mid LAD and successful complex intervention with LAN x4 to the mid rightcoronary artery at the crux of the vessel and balloon angioplasty toposterolateral branch of the right on April 29, 2019Echocardiogram of October 09, 2019 revealed LVEF 55 to 60% and LV diastolicfunction with elevated filling pressure.She has diuresed 2 L after receiving 40 mg of IV Lasix at referring facilityShe is compensated on examHypertensionSBP is greater than 200 and SMCShe was given carvedilol 12.5 mg, nitroglycerin paste, 40 mg IV Lasix anddiuresed 2 LPresently SBP 150sContinue carvedilol 12 and half milligrams twice dailyDiastolic heart failureTTE 10/09/2019 reveals LVEF 55-60% and LV diastolic function abnormal withelevated filling pressureShe received 40 mg of IV Lasix at referring facilityNT proBNP here is 5984Daily weights, strict I/OsContinue lasi x, B-zheng, ACOSTA-iType 2 diabetes mellitusPatient reports her Levemir was discontinued because her A1c has been around 5%Hold oral agents and start frail scale insulinDiabetic neuropathyGabapentin 800 mg nightlyHypercholesterolemiaAtorvastatin 80 mg nightlyAnxiety/depressionDuloxetine 60 mg dailyGERD (gastroesophageal reflux disease)History of upper GI bleed s/p EGD and cauterization of AVMs November 22 020Continue pantoprazole 40 mg p.o. DailyChronic kidney diseaseShe is scheduled to see a pharmacy salesperson May 21reatinine in [facility] was 1.24MonitorFallShe has had a few mechanical falls, last 1 was a couple weeks agoFall precautionsPT eval and treatDVT prophylaxisHeparinCODE STATUS: FULL CODEAdvance Directives DiscussionI had a face to face discussion today with Patient regarding advance directives.We discussed the patient's code status wishes and the differences between whatit means to be full code, DNR, or DNR/DNI. (A DNR patient can still beelectively intubated in a non-cardiac arrest situation. A DNR/DNI will not beintubated in any circumstance.)Questions which were addressed included: Advance DirectivesAt this time their wishes are for the patient to be made Full Code. This hasbeen entered into the chart.Other topics discussed today included Patient's values and goals of careDetails of this discussion were as follows: Advance DirectivesForms completed today includenoneI spent < or = 15 minutes during the above discussion which was additional timespent separate from the hospital visit.D/W Dr. Cumminsature: Yuri Sosa NPDate: May 14, 2020Time: 10:09 PM Name Value Range Interpretation Code Description Data Maria Esther rce(s) Supporting Document(s) ID Date Data Source [id number] 05/15/2020 10:13:56 AM EST [facility] Name Value Range Interpretation Code Description Data [facility] rce(s) Supporting Document(s) CHOLESTEROL @ 79 mg/dL (0-200) [facility] TRIGLYCERIDE @ 66 mg/dL (30-200) [facility] HDL CHOLESTEROL @ 50 mg/dL (>40) [facility] PER NCEP ATP III GUIDELINES:RESULTS LOWE R THAN 40 MG/DL ARE SUGGESTIVEOF INCREASED RISK FOR CORONARY ARTERYDISEASE. RESULTS > OR = TO 60 MG/DL ARECONSIDERED A NEGATIVE RISK FACTOR. CHOL/HDL RATIO 1.6 RATIO [facility] INTERPRETATION OF CHOL-HDL RATIO CHD RISK FEMALE MALEVERY HIGH >8.3 >14.3HIGH 5.6- 8.3 6.7- 14.3AVERAGE 3.7- 5.6 4.0- 6.7BELOW AVERAGE 2.5- 3.7 2.7- 4.0PROTECTED <2.5 <2.7 LDL CHOL (CALC) 16 mg/dL (<130) [facility] PER NCEP ATP III GUIDELINES: OPTIMAL < 100 NEAR OPTIMAL 100 - 129BORDERLINE HIGH 130 - 159 HIGH 160 - 189 VERY HIGH > 189 ID Date Data Source [id number] 05/14/2020 10:17:15 PM EST [facility] Name Value Range Interpretation Code Description Data Maria Esther rce(s) Supporting Document(s) TSH,ULTRASENSITIVE @ 1.431 mIU/L (0.360-4.170) [facility] PERFORMED AT [address] [place] [address] N [place] [address] ID Date Data Source [id number] 05/14/2020 10:17:15 PM EST [facility] Name Value Range Interpretation Code Description Data Maria Esther rce(s) Supporting Document(s) TROPONIN I 0.45 ng/mL (<0.05) H [facility] MICHELLE Goodwin Less than 0.05: Myocardial injury unlike lyGreater than or equal to 0.05: Highly suggestive of myocardial injuryCorrelation with rise and/or fall ofserial troponins, clinical symptomsand ECG changes is necessary. ID Date Data Source [id number] 05/14/2020 10:17:15 PM EST [facility] Name Value Range Interpretation Code Description Data Maria Esther rce(s) Supporting Document(s) NT PRO BNP 5984 pg/mL (0-125) H [facility] ID Date Data Source [id number] 05/14/2020 10:17:15 PM EST [facility] Name Value Range Interpretation Code Description Data Maria Esther rce(s) Supporting Document(s) SODIUM 138 mmol/L (136-145) [facility] POTASSIUM 3.7 mmol/L (3.6-5.2) [facility] CHLORIDE 104 mmol/L (100-108) [facility] CO2 26 mmol/L (22-31) [facility] ANION GAP 8 mmol/L (7-16) [facility] UREA NITROGEN 36 mg/dL (7-24) H [facility] CREATININE 1.26 mg/dL (0.60-1.00) H [facility] BUN/CREAT RATIO 28.6 RATIO (10.0-20.0) H [facility] GLUCOSE 97 mg/dL (70-99) [facility] CALCIUM 9.2 mg/dL (8.4-10.2) [facility] TOTAL PROTEIN 7.1 g/dL (6.4-8.2) [facility] ALBUMIN 3.7 g/dL (3.2-4.5) [facility] GLOBULIN 3.4 g/dL (2.7-4.3) [facility] ALB/GLOB RATIO 1.1 RATIO [facility] ALKALINE PHOSPHATASE 51 U/L (45-117) [facility] BILIRUBIN,TOTAL 0.6 mg/dL (0.0-1.0) [facility] PLEASE NOTE:Total bilirubin results may be falselyelevated in patients taking Eltrombopag. AST (SGOT) 17 U/L (11-39) [facility] ALT (SGPT) 16 U/L (12-78) [facility] GFR 42 ml/min/1.73m2 (>59) L [facility] GFR ( AMER) 51 ml/min/1.73m2 (>59) L [facility] GFR INTERPRETATION [facility] --NORMAL KIDNEY FUNCTION OR MILD DISEASE - GFR >OR= 60CHRONIC KIDNEY DISEASE - GFR 15 - 59RENAL FAILURE - GFR <15 Est. GFR calculation based on the MDRDstudy equation, which assumes a steadystate for creatinine. Est. GFR should notbe used for medication dosing. ID Date Data Source [id number] 05/14/2020 10:11:13 PM EST [facility] SPEC EXP DATE 05/17/2020ATI ENT ABO/Rh A POSITIVEANTIBODY SCREEN NEGATIVETESTING SITE PERFORMED AT [address] [place], [place] [id number] BANK COMMENT BLOOD TYPE CONFIRMED. Name Value Range Interpretation Code Description Data Maria Esther rce(s) Supporting Document(s) TYPE AND SCREEN [facility] PATIENT ABO/Rh A POSITIVE ID Date Data Source [id number] 05/14/2020 10:10:23 PM EST [facility] Name Value Range Interpretation Code Description Data Maria Esther rce(s) Supporting Document(s) MAGNESIUM 1.9 mg/dL (1.7-2.4) [facility] ID Date Data Source [id number] 05/14/2020 09:25:52 PM EST [facility] Name Value Range Interpretation Code Description Data Maria Esther rce(s) Supporting Document(s) APTT >150.0 s (22.0-34.3) HH [facility] PERFORMED BY ALTERNATE METHOD. REFERENCE RANGE = 24.7 - 33.3ALERTED CRITICAL RESULT TOMIKE (17488)/D5 EXT [id number] AT 2123 ON 05/14/20 [place] [id number] ID Date Data Source [id number] 05/14/2020 08:17:36 PM EST [facility] Name Value Range Interpretation Code Description Data Maria Esther rce(s) Supporting Document(s) WBC 7.7 10*3/uL (4.1-11.0) [facility] [place] RBC 3.38 10*6/uL (4.00-5.40) L [facility] HGB 10.4 g/dL (12.0-16.0) L [facility] HCT 30.2 % (36.0-47.0) L [facility] MCV 89.4 fL (80.0-95.0) [facility] MCH 30.7 pg (27.0-32.0) [facility] MCHC 34.4 g/dL (32.0-36.0) [facility] RDW 15.1 % (10.5-14.5) H [facility] Y PLT 217 10*3/uL (150-450) [facility] MPV 8.8 fL (7.1-10.7) [facility] ID Date Data Source [id number] 05/14/2020 11:36:00 AM EST [facility] Name Value Range Interpretation Code Description Data Maria Esther rce(s) Supporting Document(s) SARS-CoV-2 (COVID 19) NEGATIVE - SARS-CoV-2 (COVID19) [facility] This lab was ordered by [facility] a nd reported by [facility]. ID Date Data Source [id number] [id number] 05/11/2020 12:00:00 AM EST eCW1 ([facility]) Name Value Range Interpretation Code Description Data Maria Esther rce(s) Supporting Document(s) 1.9 1.8-2.4 MAGNESIUM LEVEL eCW1 (Replaced by [facility]) ID Date Data Source [id number] 04/23/2020 07:03:00 PM EST [facility] Patient: DULCE RODAS Observa tion Report - [facility]VisitID: [id number] [place] [address] [phone], FRegistration Date/Time: 04/23/2020 13:27 Weight:58.9 kg (S). [...] Name Value Range Interpretation Code Description Data Maria Esther rce(s) Supporting Document(s) ID Date Data Source [id number] 04/23/2020 03:32:00 PM EST [facility] l TSYSORDER [id number] Name Value Range Interpretation Code Description Data Maria Esther rce(s) Supporting Document(s) MAGNESIUM 1.2 mg/dL 1.8-2.4 L [facility] ID Date Data Source [id number] 04/23/2020 03:17:00 PM [facility] l TSYSORDER [id number] Name Value Range Interpretation Code Description Data Maria Esther rce(s) Supporting Document(s) GLUCOSE 156 mg/dL 74-106 H [facility] BLOOD UREA NITROGEN 21 mg/dL 7-18 H [facility] ital CREATININE 1.10 mg/dL 0.6-1.0 H [facility] SODIUM 135 mmol/L 136-145 L [facility] POTASSIUM 4.3 mmol/L 3.5-5.1 [facility] CHLORIDE 95 mmol/L 98-107 L [facility] CO2 24 mmol/L 21-32 [facility] CALCIUM 9.0 mg/dL 8.5-10.1 [facility] ANION GAP 16.0 mmol/L 5-12 H [facility] GLOMERULAR FILTRATION RATE 49 mL/min [facility] GFR IS CALCULATED IN mL/min/1.73m2 MALINDA L FUNCTION: >90MILDLY DECREASED: 60-89MILDY TO MODERATELY DECREASED: 45-59 MODERATELY TO SEVERELY DECREASED: 30-44SEVERELY DECREASED: 15-29RENAL FAILURE: <15 AST 26 U/L 15-37 [facility] ALT 23 U/L 12-78 [facility] ALKALINE PHOSPHATASE 56 U/L 46-116 [facility] pital TOTAL BILIRUBIN 0.7 mg/dL 0.2-1.0 [facility] TOTAL PROTEIN 7.8 g/dl 6.4-8.2 [facility] ALBUMIN 4.3 gm/dL 3.4-5.0 [facility] ID Date Data Source [id number] 04/23/2020 02:55:00 PM [facility] l TSYSORDER [id number] Name Value Range Interpretation Code Description Data Maria Esther rce(s) Supporting Document(s) WHITE BLOOD COUNT 7.7 K/mm3 4.0-10.0 [facility] 3.79 M/mm3 4.00-5.50 L [facility] l HEMOGLOBIN 11.1 gm/dL 12.0-16.0 L [facility] HEMATOCRIT 34.7 % 36.0-48.8 L [facility] MEAN CELL VOLUME 91.6 fl 80-96 [facility] MEAN CORPUSCULAR HEMOGLOBIN 29.3 pg 27.0-31.0 [facility] MEAN CORPUSCULAR HGB CONC 32.0 g/dl 32.0-36.0 [facility] RED CELL DISTRIBUTION WIDTH 14.8 % 10.0-14.5 H [facility] PLATELET COUNT 222 K/mm3 172-450 [facility] MEAN PLATELET VOLUME 10.2 fl 9.0-13.0 [facility] pital GRAN % 80.6 % 50-80.0 H [facility] IG% 0.3 % 0.0-0.2 H [facility] LYMPH % 13.1 % 25.0-50.0 L [facility] MONO % 4.8 % 2.0-10.0 [facility] EOS % 0.9 % 0-5.0 [facility] BASO % 0.3 % 0.0-2.0 [facility] GRAN # 6.2 K/mm3 2.0-8.00 [facility] IG# 0.0 K/mm3 0.0-0.2 [facility] LYMPH # 1.0 K/mm3 1.0-5.0 [facility] MONO # 0.4 K/mm3 0.10-1.20 [facility] EOS # 0.1 K/mm3 0.0-0.5 [facility] BASO # 0.0 K/mm3 0.0-0.2 [facility] ID Date Data Source [id number] 03/26/2020 11:45:00 AM EST [facility] Name Value Range Interpretation Code Description Data Maria Esther rce(s) Supporting Document(s) Iron (Fe) 57 ug/dL 50-170 [facility] Total Iron Binding Capacity 341 ug/dL 250-450 [facility] ([facility]) Percent Saturation 16.7 % 13.2-45.0 [facility] ([facility]) ID Date Data Source [id number] 03/26/2020 11:45:00 AM EST [facility] Name Value Range Interpretation Code Description Data Maria Esther rce(s) Supporting Document(s) Magnesium [Mass/volume] in Serum or Plasma 1.5 mg/dL 1.8-2.4 [facility] ([facility]) ID Date Data Source [id number] 03/26/2020 11:45:00 AM EST [facility] ([facility]) Name Value Range Interpretation Code Description Data Maria Esther rce(s) Supporting Document(s) Glucose, Fasting 206 mg/dL 70-100 [facility] ([facility]) Blood Urea Nitrogen 20 mg/dL 7-18 [facility] ([facility]) Creatinine For GFR 1.22 mg/dL 0.55-1.30 [facility] ([facility]) Glomerular Filtration Rate 46.1 [facility] ([facility]) <content>Units are mL/min/1.73 m2</content>
<content></content>
<content>Chronic Kidney Disease Staging per NKF:</content>
<content></content>
<content>Stage I & II GFR >=60 Normal to Mildly Decreased</content>
<content>Stage III GFR 30- 59 Moderately Decreased</content>
<content>Stage IV GFR 15-29 Severely Decreased</content>
<content>Stage V GFR <15 Very Little GFR Left</content>
<content>ESRD GFR <15 on WEB KNITTER</content>
<content></content> Sodium Level 137 meq/L 136-145 [facility] ([facility]) Potassium Serum 4.4 meq/L 3.5-5.1 [facility] ([facility]) Carbon Dioxide Level 22 meq/L 21-32 [facility] ([facility]) Chloride Level 106 meq/L 98-107 [facility] ([facility]) Anion Gap 9 meq/L 8-16 [facility] ([facility] Calcium Level 9.1 mg/dL 8.8-10.2 [facility] ([facility]) Ast/Sgot 21 U/L 7-37 [facility]) Alt/SGPT 22 U/L 12-78 [facility] Alkaline Phosphatase 75 U/L 45-117 [facility] ([facility] Bilirubin,Total 0.4 mg/dL 0.2-1.0 [facility] Total Protein 6.7 GM/DL 6.4-8.2 [facility]) Albumin 3.5 GM/DL 3.2-5.2 [facility] Albumin/Globulin Ratio 1.1 1.2-2.2 [facility] ([facility]) ID Date Data Source [id number] 03/26/2020 11:45:00 AM EST [facility] ([facility] Name Value Range Interpretation Code Description Data Maria Esther rce(s) Supporting Document(s) White Blood Count 8.3 10 4.0-10.0 [facility] ([facility] Red Blood Count 3.31 10 4.00-5.40 [facility] ([facility] Hemoglobin 9.5 g/dL 12.0-15.5 [facility] Hematocrit 31.6 % 36.0-47.0 [facility]) Mean Corpuscular Volume 95.5 fl 80.0-96.0 M [facility] ([facility]) Mean Corpuscular HGB Conc 30.1 g/dL 32.0-36.5 [facility] ([facility]) Mean Corpuscular Hemoglobin 28.7 pg 27.0-33.0 [facility] ([facility]) Red Cell Distribution Width 15.3 % 11.5-14.5 [facility] ([facility]) Neutrophils % 72.5 % 36.0-66.0 [facility] ([facility]) Platelet Count, Automated 317 10 150-450 [facility]) Hughes % 7.2 % 0.0-5.0 [facility] Lymph % 16.4 % 24.0-44.0 [facility] Baso % 0.5 % 0.0-1.0 [facility] Eos % 2.9 % 0.0-3.0 [facility] Immature Granulocyte % 0.5 % 0-3.0 [facility]) Nucleated Red Blood Cell % 0.0 % 0-0 [facility]) Neutrophils # 6.0 10 1.5-8.5 [facility] Lymph # 1.4 10 1.5-5.0 [facility] Hughes # 0.6 10 0.0-0.8 [facility] Eos # 0.2 10 0.0-0.5 [facility] Baso # 0.0 10 0.0-0.2 [facility] ID Date Data Source [id number] 03/23/2020 03:06:00 PM EST [facility] In-Patient NoteNote:LABORATORY TEST REF ERRAL Dx: Atrial Fib with RVR, HYPOMAGNESEMIA LABS:CBC with Diff. Iron ProfileCMPMagnesium Please send the result to [facility] in [place] and Dr Hernández's office. Name Value Range Interpretation Code Description Data Maria Esther rce(s) Supporting Document(s) ID Date Data Source [id number] 03/23/2020 06:20:00 AM EST [facility] [...] Name Value Range Interpretation Code Description [facility](s[facility] ID Date Data Source [id number] 03/23/2020 06:17:00 AM EST [facility] [...] Name Value Range Interpretation Code Description Data Maria Esther rce(s) Supporting Document(s) ID Date Data Source [id number] 03/25/2020 11:53:00 AM EST [facility] Name Value Range Interpretation Code Description Data Maria Esther rce(s) Supporting Document(s) [facility] ID Date Data Source [id number] 03/23/2020 01:58:00 AM EST [facility] TSYSORDER [id number] Name Value Range Interpretation Code Description Data Maria Esther rce(s) Supporting Document(s) URINE RBC 1-3 /hpf 0-3 [facility] URINE WBC 3-5 /hpf 0-5 [facility] URINE EPITHELIAL CELLS 1+ /hpf 0 [facility]spital URINE BACTERIA 2+ NONE SEEN [facility] URINE CULTURE ORDERED ID Date Data Source [id number] 03/23/2020 01:47:00 AM EST [facility] ital TSYSORDER [id number] Name Value Range Interpretation Code Description Data Maria Esther rce(s) Supporting Document(s) URINE COLOR. [facility] URINE APPEARANCE CLEAR [facility] l URINE GLUCOSE (UA) NEGATIVE mg/dL NEGATIVE [facility] URINE BILIRUBIN NEGATIVE NEGATIVE [facility] URINE KETONE NEGATIVE mg/dL NEGATIVE [facility] SPECIFIC GRAVITY,URINE 1.020 1.001-1.035 [facility] URINE BLOOD NEGATIVE NEGATIVE [facility] PH,URINE 5.5 5.0-9.0 [facility] URINE PROTEIN 2+(100) mg/dL NEGATIVE [facility] al URINE UROBILINOGEN NORMAL(0.2-1) mg/dL 0-1 [facility] URINE NITRATE NEGATIVE NEGATIVE [facility] URINE LEUKOCYTE ESTERASE 1+(SMALL) NEGATIVE [facility] ID Date Data Source [id number] 03/22/2020 10:49:00 PM EST [facility] Name Value Range Interpretation Code Description Data Maria Esther rce(s) Supporting Document(s) COVID-19 [facility] This lab was ordered by [facility] and reported by [facility]. ID Date Data Source [id number] 03/22/2020 11:21:00 PM EST [facility] TSYSORDER [id number] Name Value Range Interpretation Code Description Data Maria Esther rce(s) Supporting Document(s) COVID-19 NEGATIVE NEGATIVE [facility] Negative results should be treated as pr [...] are for the indentification of SARS-CoV-2 RNA. [id number] RNA is generally detectable in respiratorysamples during the actue phase of infection. ID Date Data Source [id number] 03/22/2020 11:10:00 PM EST [facility] [id number] Name Value Range Interpretation Code Description Data Maria Esther rce(s) Supporting Document(s) PHOSPHOROUS 2.8 mg/dL 2.5-4.9 [facility] ID Date Data Source [id number] 03/22/2020 09:31:00 PM EST [facility] TSYSORDER [id number] Name Value Range Interpretation Code Description Data Maria Esther rce(s) Supporting Document(s) MAGNESIUM 1.2 mg/dL 1.8-2.4 [facility] ID Date Data Source [id number] 03/22/2020 09:31:00 PM EST [facility] TSYSORDER [id number] Name Value Range Interpretation Code Description Data Maria Esther rce(s) Supporting Document(s) TROPONIN I 0.052 ng/mL 0.0-0.056 [facility] ID Date Data Source [id number] 03/22/2020 09:31:00 PM EST [facility] TSYSORDER [id number] Name Value Range Interpretation Code Description Data Maria Esther rce(s) Supporting Document(s) LIPASE 82 U/L 73-393 [facility] ID Date Data Source [id number] 03/22/2020 09:31:00 PM [facility] l TSYSORDER [id number] Name Value Range Interpretation Code Description Data Maria Esther rce(s) Supporting Document(s) GLUCOSE 126 mg/dL 74-106 H [facility] BLOOD UREA NITROGEN 13 mg/dL 7-18 [facility] ital CREATININE 1.1 mg/dL 0.6-1.0 H [facility] SODIUM 134 mmol/L 136-145 L [facility] POTASSIUM 3.5 mmol/L 3.5-5.1 [facility] CHLORIDE 98 mmol/L 98-107 [facility] CO2 22 mmol/L 21-32 [facility] CALCIUM 9.4 mg/dL 8.5-10.1 [facility] ANION GAP 14.0 mmol/L 5-12 H [facility] GLOMERULAR FILTRATION RATE 49 mL/min [facility] GFR IS CALCULATED IN mL/min/1.73m2 MALINDA L FUNCTION: >90MILDLY DECREASED: 60-89MILDY TO MODERATELY DECREASED: 45-59 MODERATELY TO SEVERELY DECREASED: 30-44SEVERELY DECREASED: 15-29RENAL FAILURE: <15 AST 23 U/L 15-37 [facility] ALT 17 U/L 12-78 [facility] ALKALINE PHOSPHATASE 69 U/L 46-116 [facility] pital TOTAL BILIRUBIN 0.7 mg/dL 0.2-1.0 [facility] TOTAL PROTEIN 7.6 g/dl 6.4-8.2 [facility] ALBUMIN 3.5 gm/dL 3.4-5.0 [facility] ID Date Data Source [id number] 03/22/2020 09:29:00 PM [facility] l TSYSORDER [id number] Name Value Range Interpretation Code Description Data Maria Esther rce(s) Supporting Document(s) PARTIAL THROMBOPLASTIN TIME 23.6 SECONDS 21.2-27.3 [facility] ID Date Data Source [id number] 03/22/2020 09:29:00 PM [facility] l TSYSORDER [id number] Name Value Range Interpretation Code Description Data Maria Esther rce(s) Supporting Document(s) PROTHROMBIN TIME (PATIENT) 11.0 SECONDS 9.1-11.6 [facility] INR 1.06 0.87-1.06 [facility] ID Date Data Source [id number] 03/22/2020 09:04:00 PM EST [facility] l TSYSORDER [id number] Name Value Range Interpretation Code Description Data Maria Esther rce(s) Supporting Document(s) WHITE BLOOD COUNT 9.1 K/mm3 4.0-10.0 [facility] RED BLOOD COUNT 3.47 M/mm3 4.00-5.50 L [facility] l HEMOGLOBIN 10.2 gm/dL 12.0-16.0 L [facility] HEMATOCRIT 30.8 % 36.0-48.8 L [facility] MEAN CELL VOLUME 88.8 fl 80-96 [facility] MEAN CORPUSCULAR HEMOGLOBIN 29.4 pg 27.0-31.0 [facility] MEAN CORPUSCULAR HGB CONC 33.1 g/dl 32.0-36.0 [facility] RED CELL DISTRIBUTION WIDTH 14.9 % 10.0-14.5 H [facility] PLATELET COUNT 287 K/mm3 172-450 [facility] MEAN PLATELET VOLUME 9.9 fl 9.0-13.0 [facility] pital GRAN % 82.1 % 50-80.0 H [facility] IG% 0.3 % 0.0-0.2 H [facility] LYMPH % 9.4 % 25.0-50.0 L [facility] MONO % 5.9 % 2.0-10.0 [facility] EOS % 2.2 % 0-5.0 [facility] BASO % 0.1 % 0.0-2.0 [facility] GRAN # 7.4 K/mm3 2.0-8.00 [facility] IG# 0.0 K/mm3 0.0-0.2 [facility] LYMPH # 0.9 K/mm3 1.0-5.0 L [facility] MONO # 0.5 K/mm3 0.10-1.20 [facility] EOS # 0.2 K/mm3 0.0-0.5 [facility] BASO # 0.0 K/mm3 0.0-0.2 [facility] ID Date Data Source [id number] 03/22/2020 09:16:00 AM EST [facility] Name Value Range Interpretation Code Description Data Maria Esther rce(s) Supporting Document(s) Albumin [Mass/volume] in Serum or Plasma 3.5 [facility] ([facility] Alanine aminotransferase [Enzymatic activity/volume] in Serum or Pl asma 17 [facility] ([facility] Calcium [Mass/volume] in Serum or Plasma 9.4 [facility] ([facility] Carbon dioxide, total [Moles/volume] in Serum or Plasma 22 [facility] Chloride [Moles/volume] in Serum or Plasma 98 [facility] ([facility]) Potassium [Moles/volume] in Serum or Plasma 3.5 [facility] ([facility]) Alkaline phosphatase [Enzymatic activity/volume] in Serum or Plasma 6 9 [facility] ([facility]) Sodium 134 [facility] Protein [Mass/volume] in Serum or Plasma 7.6 [facility] ([facility]) Aspartate aminotransferase [Enzymatic activity/volume] in Serum or Plasma 23 [facility] ([facility]) Urea nitrogen [Mass/volume] in Serum or Plasma 13 [facility]) Glucose 126 74-106 [facility] Creatinine For GFR 1.1 [facility] ([facility]) ID Date Data Source [id number] 03/22/2020 09:16:00 AM EST [facility] ([facility]) Name Value Range Interpretation Code Description Data Maria Esther rce(s) Supporting Document(s) White Blood Count 9.1 4.0-10.0 [facility] Red Blood Count 3.47 4.00-5.50 [facility] ([facility]) Platelets 287 172-450 [facility] Hemoglobin 10.2 12.0-16.0 [facility] ([facility]) Hematocrit 30.8 36.0-48.8 [facility] ([facility] ID Date Data Source [id number] 03/14/2020 09:29:00 AM [facility] [...] Name Value Range Interpretation Code Description Data Maria Esther e(s) Supporting Document(s) ID Date Data Source [id number] 03/14/2020 09:29:00 AM EST [facility] DATE OF EXAMINATION: 03/13/2020 22:06 ES [...] Name Value Range Interpretation Code Description Data Maria Esther rce(s) Supporting Document(s) ID Date Data Source [id number] 03/14/2020 09:29:00 AM EST [facility] [...] Name Value Range Interpretation Code Description Data Maria Esther rce(s) Supporting Document(s) ID Date Data Source [id number] 03/14/2020 03:39:00 AM EST [facility] Patient: DULCE RODAS Sona tienma Report - [facility]VisitID: [id number] [place] [address] [phone], FRegistration Date/Time: 03/13/2020 21:40 Weight:58.9 kg (S). Height/Length:62 inches (S). BMI:23.8 FAMILY HISTORYNo significant family medical history. (Electronically signed by Patricia Quesada M.D. 03/14/2020 03:14) Name Value Range Interpretation Code Description Data Maria Esther rce(s) Supporting Document(s) ID Date Data Source [id number] 03/13/2020 10:27:00 PM EST [facility] TSYSORDER [id number] Name Value Range Interpretation Code Description Data Maria Esther rce(s) Supporting Document(s) GLUCOSE 163 mg/dL 74-106 H [facility] BLOOD UREA NITROGEN 36 mg/dL 7-18 H [facility] ital CREATININE 1.5 mg/dL 0.6-1.0 H [facility] SODIUM 137 mmol/L 136-145 [facility] POTASSIUM 4.6 mmol/L 3.5-5.1 [facility] CHLORIDE 101 mmol/L 98-107 [facility] CO2 23 mmol/L 21-32 [facility] CALCIUM 8.7 mg/dL 8.5-10.1 [facility] ANION GAP 13.0 mmol/L 5-12 H [facility] GLOMERULAR FILTRATION RATE 34 mL/min [facility] GFR IS CALCULATED IN mL/min/1.73m2 MALINDA L FUNCTION: >90MILDLY DECREASED: 60-89MILDY TO MODERATELY DECREASED: 45-59 MODERATELY TO SEVERELY DECREASED: 30-44SEVERELY DECREASED: 15-29RENAL FAILURE: <15 AST 19 U/L 15-37 [facility] ALT 17 U/L 12-78 [facility] ALKALINE PHOSPHATASE 54 U/L 46-116 [facility] pital TOTAL BILIRUBIN 0.3 mg/dL 0.2-1.0 [facility] TOTAL PROTEIN 6.7 g/dl 6.4-8.2 [facility] ALBUMIN 3.6 gm/dL 3.4-5.0 [facility] ID Date Data Source [id number] 03/13/2020 10:27:00 PM [facility] TSYSORDER [id number] Name Value Range Interpretation Code Description Data Maria Esther rce(s) Supporting Document(s) TROPONIN I 0.027 ng/mL 0.0-0.056 [facility] ID Date Data Source [id number] 03/13/2020 10:03:00 PM EST [facility] TSYSORDER [id number] Name Value Range Interpretation Code Description Data Maria Esther rce(s) Supporting Document(s) WHITE BLOOD COUNT 5.1 K/mm3 4.0-10.0 [facility] RED BLOOD COUNT 2.94 M/mm3 4.00-5.50 L [facility] HEMOGLOBIN 8.6 gm/dL 12.0-16.0 L [facility] HEMATOCRIT 27.5 % 36.0-48.8 L [facility] MEAN CELL VOLUME 93.5 fl 80-96 [facility] MEAN CORPUSCULAR HEMOGLOBIN 29.3 pg 27.0-31.0 [facility] MEAN CORPUSCULAR HGB CONC 31.3 g/dl 32.0-36.0 L [facility] RED CELL DISTRIBUTION WIDTH 14.7 % 10.0-14.5 H [facility] PLATELET COUNT 199 K/mm3 172-450 [facility] MEAN PLATELET VOLUME 10.4 fl 9.0-13.0 [facility] pital GRAN % 67.1 % 50-80.0 [facility] IG% 0.6 % 0.0-0.2 H [facility] LYMPH % 20.2 % 25.0-50.0 L [facility] MONO % 8.4 % 2.0-10.0 [facility] EOS % 3.5 % 0-5.0 [facility] BASO % 0.2 % 0.0-2.0 [facility] GRAN # 3.4 K/mm3 2.0-8.00 [facility] IG# 0.0 K/mm3 0.0-0.2 [facility] LYMPH # 1.0 K/mm3 1.0-5.0 [facility] MONO # 0.4 K/mm3 0.10-1.20 [facility] EOS # 0.2 K/mm3 0.0-0.5 [facility] BASO # 0.0 K/mm3 0.0-0.2 [facility] ID Date Data Source [id number] 03/11/2020 06:38:00 PM EST [facility] Patient: DULCE RODAS Roshni tienma Report - [facility].VisitID: [id number] [place] [address] [phone], FRegistration Date/Time: 03/11/2020 12:02 Weight:63.5 kg (S). [...] Name Value Range Interpretation Code Description Data Maria Esther rce(s) Supporting Document(s) ID Date Data Source [id number] 03/11/2020 01:14:00 PM [facility] [...] Name Value Range Interpretation Code Description Data Maria Esther rce(s) Supporting Document(s) ID Date Data Source [id number] 03/11/2020 01:12:00 PM [facility] [...] Name Value Range Interpretation Code Description Data Maria Esther rce(s) Supporting Document(s) ID Date Data Source [id number] 03/11/2020 01:11:00 PM [facility] [...] Name Value Range Interpretation Code Description Data Maria Esther rce(s) Supporting Document(s) ID Date Data Source [id number] 03/11/2020 01:11:00 PM [facility] [...] Name Value Range Interpretation Code Description Data Maria Esther rce(s) Supporting Document(s) ID Date Data Source Basic Metabolic Profile (BMP) 02/26/2020 08:00:08 AM EST eCW 1 ([facility]) Name Value Range Interpretation Code Description Data Maria Esther rce(s) Supporting Document(s) 124 GLUCOSE, FASTING eCW1 ([facility]) 1.24 CREATININE FOR GFR eCW1 ([facility]) 21 BLOOD UREA NITROGEN eCW1 ([facility]) 135 SODIUM LEVEL eCW1 ([facility]) 45.3 GLOMERULAR FILTRATION RATE eCW 1 ([facility]) 4.7 POTASSIUM SERUM eCW1 ([facility]placed by [facility]) 103 CHLORIDE LEVEL eCW1 ([facility]) 21 CARBON DIOXIDE LEVEL eCW1 ([facility]) 9.6 CALCIUM LEVEL eCW1 ([facility]) ID Date Data Source [id number] 02/25/2020 01:00:00 PM EST [facility] ([facility]) Name Value Range Interpretation Code Description Data Maria Esther rce(s) Supporting Document(s) Magnesium Level 1.6 1.8-2.4 [facility] ([facility] ID Date Data Source [id number] 02/25/2020 01:00:00 PM EST [facility] ([facility]) Name Value Range Interpretation Code Description Data Maria Esther rce(s) Supporting Document(s) Carbon dioxide, total [Moles/volume] in Serum or Plasma 21 [facility] ([facility]) Sodium 135 [facility] ([facility] Calcium [Mass/volume] in Serum or Plasma 9.6 [facility] ([facility]) Potassium [Moles/volume] in Serum or Plasma 4.7 [facility] ([facility]) Chloride [Moles/volume] in Serum or Plasma 103 [facility] ([facility]) Glucose 124 70-100 [facility] Glomerular filtration rate/1.73 sq M.pre dicted [Volume Rate/Area] in Serum or Plasma by Creatinine-based formula (MDRD) 45.3 [facility] ([facility]) Blood Urea Nitrogen 21 7-18 [facility] ([facility]) Creatinine 1.24 0.55-1.30 [facility] ([facility]) ID Date Data Source [id number] 01/21/2020 12:16:00 PM EDT [facility] ([facility]) Name Value Range Interpretation Code Description Data Maria Esther rce(s) Supporting Document(s) Magnesium Level 1.5 1.8-2.4 [facility] ([facility] ID Date Data Source [id number] 01/21/2020 12:16:00 PM EDT [facility] ([facility]) Name Value Range Interpretation Code Description Data Maria Esther rce(s) Supporting Document(s) Sodium 134 [facility] ([facility] Carbon dioxide, total [Moles/volume] in Serum or Plasma 23 [facility] ([facility]) Calcium [Mass/volume] in Serum or Plasma 9.2 [facility] ([facility]) Chloride [Moles/volume] in Serum or Plasma 101 [facility] ([facility]) Glucose 199 70-100 [facility] ([facility] Potassium [Moles/volume] in Serum or Plasma 4.2 [facility] ([facility]) Blood Urea Nitrogen 25 7-18 [facility] ([facility]) Creatinine 1.24 0.55-1.30 [facility] ([facility]) Glomerular filtration rate/1.73 sq M.pre dicted [Volume Rate/Area] in Serum or Plasma by Creatinine-based formula (MDRD) 45.3 [facility] ([facility]) ID Date Data Source [id number] 01/12/2020 11:27:00 AM EDT [facility] Name Value Range Interpretation Code Description Data Maria Esther rce(s) Supporting Document(s) Carbon dioxide, total [Moles/volume] in Serum or Plasma 27 [facility] ([facility]) Sodium 136 [facility] Calcium [Mass/volume] in Serum or Plasma 8.6 [facility] ([facility]) Potassium [Moles/volume] in Serum or Plasma 4.4 [facility] ([facility]) Glucose 113 70-100 [facility] ([facility]) Chloride [Moles/volume] in Serum or Plasma 104 [facility] ([facility]) Glomerular filtration rate/1.73 sq M.pre dicted [Volume Rate/Area] in Serum or Plasma by Creatinine-based formula (MDRD) 36.3 [facility] ([facility]) Blood Urea Nitrogen 26 7-18 [facility] ([facility]) Creatinine 1.50 0.55-1.30 [facility] ([facility]) ID Date Data Source [id number] 01/08/2020 12:26:50 PM EDT [facility] Name Value Range Interpretation Code Description Data Maria Esther rce(s) Supporting Document(s) Progress Note [facility] [id number] [file] [id number] Procedure Social History Code Duration Value Status Description Data Source(s ) Smoking 02/15/2021 12:00:00 AM EDT Former Smoker completed Former Smoker eCW1 ([facility]) Smoking 01/13/2021 12:00:00 AM EDT Former Smoker completed Former Smoker eCW1 ([facility]) Smoking 01/13/2021 12:00:00 AM EDT Former Smoker completed Former Smoker eCW1 ([facility]) Smoking 12/08/2020 12:00:00 AM EDT Patient is a former smoker completed Patient is a former smoker [facility] ([facility]) Smoking 11/24/2020 12:00:00 AM EDT Former Smoker completed Former Smoker eCW1 ([facility]) Smoking 11/24/2020 12:00:00 AM EDT Former Smoker completed Former Smoker eCW1 ([facility]) Smoking 11/24/2020 12:00:00 AM EDT Former Smoker completed Former Smoker eCW1 ([facility]) Smoking 11/24/2020 12:00:00 AM EDT Former Smoker completed Former Smoker eCW1 ([facility]) Smoking 11/24/2020 12:00:00 AM EDT Former Smoker completed Former Smoker eCW1 ([facility]) Smoking 10/21/2020 12:00:00 AM EDT Former Smoker completed Former Smoker eCW1 ([facility]) Smoking 10/21/2020 12:00:00 AM EDT Former Smoker completed Former Smoker eCW1 ([facility]) Smoking 10/21/2020 12:00:00 AM EDT Former Smoker completed Former Smoker eCW1 ([facility]) Smoking 09/29/2020 12:00:00 AM EDT Former Smoker completed Former Smoker eCW1 ([facility]) Smoking 09/29/2020 12:00:00 AM EDT Former Smoker completed Former Smoker eCW1 ([facility]) Smoking 09/29/2020 12:00:00 AM EDT Former Smoker completed Former Smoker eCW1 ([facility]) Smoking 09/07/2020 12:00:00 AM EDT Patient is a former smoker completed Patient is a former smoker [facility] ([facility] ) Smoking 09/01/2020 12:00:00 AM EDT Former Smoker completed Former Smoker eCW1 ([facility]) Smoking 09/01/2020 12:00:00 AM EDT Former Smoker completed Former Smoker eCW1 ([facility]) Smoking 09/01/2020 12:00:00 AM EDT Former Smoker completed Former Smoker eCW1 ([facility]) Smoking 08/03/2020 12:00:00 AM EDT Former Smoker completed Former Smoker eCW1 ([facility]) Alcohol intake 06/16/2020 12:00:00 AM EST Ex-drinker (finding) comp leted Ex- drinker (finding) [facility] Tobacco use and exposure 06/16/2020 12:00:00 AM EST Never used co mpleted Never used [facility] Smoking 06/16/2020 12:00:00 AM EST Former smoker completed Former smoker [facility] Smoking 2020 12:00:00 AM EST Former Smoker completed Former Smoker eCW1 ([facility]) Smoking 2020 12:00:00 AM EST Former Smoker completed Former Smoker eCW1 ([facility]) Smoking 2020 12:00:00 AM EST Former Smoker completed Former Smoker eCW1 ([facility]) Smoking 2020 12:00:00 AM EST Former Smoker completed Former Smoker eCW1 ([facility]) Smoking 2020 12:00:00 AM EST Former Smoker completed Former Smoker eCW1 ([facility]) Smoking 2020 12:00:00 AM EST Former Smoker completed Former Smoker eCW1 ([facility]) Smoking 2020 12:00:00 AM EST Former Smoker completed Former Smoker eCW1 ([facility]) Smoking 2020 12:00:00 AM EST Former Smoker completed Former Smoker eCW1 ([facility]) Smoking 05/24/2020 12:00:00 AM EST Former Smoker completed Former Smoker eCW1 ([facility]) Smoking 05/24/2020 12:00:00 AM EST Former Smoker completed Former Smoker eCW1 ([facility]) Smoking 05/24/2020 12:00:00 AM EST Former Smoker completed Former Smoker eCW1 ([facility]) Smoking 05/24/2020 12:00:00 AM EST Former Smoker completed Former Smoker eCW1 ([facility]) Alcohol intake 05/16/2020 12:00:00 AM EST Not Currently completed [facility] Cigarette pack-years 05/16/2020 12:00:00 AM EST UNK completed [facility] Cigarettes smoked current (pack per day) - Reported 05/16/19 12:00:00 AM EST UNK completed [facility] Smoking 05/16/2020 12:00:00 AM EST Former smoker completed Former smoker [facility] Smoking 05/11/2020 12:00:00 AM EST Former Smoker completed Former Smoker eCW1 ([facility]) Smoking 05/11/2020 12:00:00 AM EST Former Smoker completed Former Smoker eCW1 ([facility]) Smoking 04/12/2020 12:00:00 AM EST Former Smoker completed Former Smoker eCW1 ([facility]) Smoking 04/12/2020 12:00:00 AM EST Former Smoker completed Former Smoker eCW1 ([facility]) Smoking 04/12/2020 12:00:00 AM EST Former Smoker completed Former Smoker eCW1 ([facility]) Smoking 04/12/2020 12:00:00 AM EST Former Smoker completed Former Smoker eCW1 ([facility]) Smoking 04/12/2020 12:00:00 AM EST Former Smoker completed Former Smoker eCW1 ([facility]) Smoking 03/16/2020 12:00:00 AM EST Former Smoker completed Former Smoker eCW1 ([facility]) Smoking 03/16/2020 12:00:00 AM EST Former Smoker completed Former Smoker eCW1 ([facility]) Smoking 03/16/2020 12:00:00 AM EST Former Smoker completed Former Smoker eCW1 ([facility]) Smoking 02/25/2020 12:00:00 AM EST Former Smoker completed Former Smoker eCW1 ([facility]) Smoking 02/25/2020 12:00:00 AM EST Former Smoker completed Former Smoker eCW1 ([facility]) Vital Signs ID Date Data Source [id number] Name Value Range Interpretation Code Description Data Source(s) Body weight 123.4 [lb_av] 123.4 [lb_av] eCW1 ([facility]) Body weight 55.97 kg 55.97 kg eCW1 ([facility]) Body height 60 [in_i] 60 [in_i] eCW1 ([facility]) Body mass index (BMI) [Ratio] 24.10 kg/m2 24.10 kg/m2 eCW1 ([facility]) Heart rate 73 /min 73 /min eCW1 (Replaced by [facility]) Respiratory rate 20 /min 20 /min eCW1 ([facility]) Body temperature 98.7 [degF] 98.7 [degF] eCW1 ( [facility]) Systolic blood pressure 126 mm[Hg] 126 mm[Hg] e CW1 ([facility]) Diastolic blood pressure 58 mm[Hg] 58 mm[Hg] eCW1 ([facility]) Body mass index (BMI) [Ratio] 22.1 kg/m2 22.1 k g/m2 [facility] ([facility] Body weight 129.00 [lb_av] 129.00 [lb_av] MEDEN T ([facility]) Body height 64 [in_i] 64 [in_i] [facility] ([facility]) 5'4" Body temperature 98.6 [degF] 98.6 [degF] eCW1 ( [facility]) Body weight 131.4 [lb_av] 131.4 [lb_av] eCW1 ([facility]) Body weight 59.6 kg 59.6 kg eCW1 ([facility]) Body height 60 [in_i] 60 [in_i] eCW1 ([facility]) Body mass index (BMI) [Ratio] 25.66 kg/m2 25.66 kg/m2 eCW1 ([facility]) Heart rate 76 /min 76 /min eCW1 ([facility]placed by [facility]) Respiratory rate 18 /min 18 /min eCW1 ([facility]) Systolic blood pressure 102 mm[Hg] 102 mm[Hg] e CW1 ([facility]) Diastolic blood pressure 58 mm[Hg] 58 mm[Hg] eCW1 ([facility]) Body weight 131 [lb_av] 131 [lb_av] eCW1 ([facility]) Body height 60 [in_i] 60 [in_i] eCW1 ([facility]) Body mass index (BMI) [Ratio] 25.58 kg/m2 25.58 kg/m2 eCW1 ([facility]) Heart rate 73 /min 73 /min eCW1 (Replaced by [facility]) Respiratory rate 18 /min 18 /min eCW1 ([facility]) Body temperature 98.5 [degF] 98.5 [degF] eCW1 ( [facility]) Systolic blood pressure 127 mm[Hg] 127 mm[Hg] e CW1 ([facility]) Diastolic blood pressure 70 mm[Hg] 70 mm[Hg] eCW1 ([facility]) Body weight 130.4 [lb_av] 130.4 [lb_av] eCW1 ([facility]) Body height 60 [in_i] 60 [in_i] eCW1 ([facility]) Body mass index (BMI) [Ratio] 25.46 kg/m2 25.46 kg/m2 eCW1 ([facility]) Heart rate 77 /min 77 /min eCW1 (Replaced by [facility]) Respiratory rate 18 /min 18 /min eCW1 ([facility]) Body temperature 98.3 [degF] 98.3 [degF] eCW1 ( [facility]) Systolic blood pressure 112 mm[Hg] 112 mm[Hg] e CW1 ([facility]) Diastolic blood pressure 58 mm[Hg] 58 mm[Hg] eCW1 ([facility]) Systolic blood pressure 122 mm[Hg] 122 mm[Hg] M EDENT ([facility], ) Diastolic blood pressure 69 mm[Hg] 69 mm[Hg] [facility] ([facility] ) Heart rate 79 /min 79 /min [facility] ([facility] ) Body height 61 [in_i] 61 [in_i] MEDENT ([facility]) 5'1" Body weight 130.50 [lb_av] 130.50 [lb_av] MEDEN T ([facility]) Body mass index (BMI) [Ratio] 24.7 kg/m2 24.7 k g/m2 [facility] ([facility]) Murray body weight 105 [lb_av] 105 [lb_av] MEDEN T ([facility]) Body weight 59.195 kg 59.195 kg [facility] ([facility]) Body surface area Derived from formula 1.58 m2 1.58 m2 [facility] ([facility]) Body weight 130 [lb_av] 130 [lb_av] eCW1 ([facility]) Body height 60 [in_i] 60 [in_i] eCW1 ([facility]) Body mass index (BMI) [Ratio] 25.39 kg/m2 25.39 kg/m2 eCW1 ([facility]) Heart rate 78 /min 78 /min eCW1 (Replaced by [facility]) Respiratory rate 18 /min 18 /min eCW1 ([facility]) Body temperature 98.8 [degF] 98.8 [degF] eCW1 ( [facility]) Systolic blood pressure 143 mm[Hg] 143 mm[Hg] e CW1 ([facility]) Diastolic blood pressure 66 mm[Hg] 66 mm[Hg] eCW1 ([facility]) Systolic blood pressure 126 mm[Hg] 126 mm[Hg] M EDENT ([facility]) sitting Body weight 131.00 [lb_av] 131.00 [lb_av] MEDEN T ([facility]) Body height 64 [in_i] 64 [in_i] [facility] ([facility]) 5'4" Body mass index (BMI) [Ratio] 22.5 kg/m2 22.5 k g/m2 [facility]) Systolic blood pressure 126 mm[Hg] 126 mm[Hg] M EDENT ([facility]) sitting, regular cuff Diastolic blood pressure 76 mm[Hg] 76 mm[Hg] [facility] ([facility] sitting, regular cuff Heart rate 72 /min 72 /min [facility] ([facility]) Regular Respiratory rate 16 /min 16 /min [facility] ( [facility]) Diastolic blood pressure 74 mm[Hg] 74 mm[Hg] [facility] ([facility]) sitting Body weight 130 [lb_av] 130 [lb_av] eCW1 ([facility]) Body height 60 [in_i] 60 [in_i] eCW1 ([facility]) Body mass index (BMI) [Ratio] 25.39 kg/m2 25.39 kg/m2 eCW1 ([facility]) Heart rate 70 /min 70 /min eCW1 (Replaced by [facility]) Respiratory rate 16 /min 16 /min eCW1 ([facility]) Body temperature 98.3 [degF] 98.3 [degF] eCW1 ( [facility]) Systolic blood pressure 133 mm[Hg] 133 mm[Hg] e CW1 ([facility]) Diastolic blood pressure 70 mm[Hg] 70 mm[Hg] eCW1 ([facility]) Diastolic blood pressure 62 mm[Hg] 62 mm[Hg] MEDENT ([facility], ) Systolic blood pressure 116 mm[Hg] 116 mm[Hg] M EDENT ([facility], ) Body weight 132.00 [lb_av] 132.00 [lb_av] MEDEN T ([facility], ) Body mass index (BMI) [Ratio] 24.9 kg/m2 24.9 k g/m2 [facility] ([facility], ) Murray body weight 105 [lb_av] 105 [lb_av] MEDEN T ([facility], ) Body weight 59.875 kg 59.875 kg [facility] ([facility], ) Body surface area Derived from formula 1.58 m2 1.58 m2 [facility] ([facility], ) Body height 61 [in_i] 61 [in_i] [facility] ([facility], ) 5'1" Body weight 136 [lb_av] 136 [lb_av] eCW1 ([facility]) Body height 60 [in_i] 60 [in_i] eCW1 ([facility]) Body mass index (BMI) [Ratio] 26.56 kg/m2 26.56 kg/m2 eCW1 ([facility]) Heart rate 70 /min 70 /min eCW1 (Replaced by [facility]) Respiratory rate 16 /min 16 /min eCW1 ([facility]) Body temperature 98.5 [degF] 98.5 [degF] eCW1 ( [facility]) Systolic blood pressure 158 mm[Hg] 158 mm[Hg] e CW1 ([facility]) Diastolic blood pressure 73 mm[Hg] 73 mm[Hg] eCW1 ([facility]) Body weight 131.6 [lb_av] 131.6 [lb_av] eCW1 ([facility]) Body height 60 [in_i] 60 [in_i] eCW1 ([facility]) Body mass index (BMI) [Ratio] 25.70 kg/m2 25.70 kg/m2 eCW1 ([facility]) Systolic blood pressure--sitting 102 mm[Hg] 102 mm[Hg] [facility] ([facility] Ra, regular cuff Diastolic blood pressure--sitting 52 mm[Hg] 52 mm[Hg] [facility] ([facility]) Ra, regular cuff Body weight 129.00 [lb_av] 129.00 [lb_av] MEDEN T ([facility]) Systolic blood pressure--standing 98 mm[Hg] 98 mm[Hg] [facility] ([facility] Ra Body height 64 [in_i] 64 [in_i] [facility] 5'4" Diastolic blood pressure--standing 50 mm[Hg] 5 0 mm[Hg] [facility] ([facility] Ra Body mass index (BMI) [Ratio] 22.1 kg/m2 22.1 k g/m2 [facility] ([facility]) Heart rate 68 /min 68 /min [facility] ([facility]) Regular Respiratory rate 16 /min 16 /min MEDENT ( [facility]) Body weight 130 [lb_av] 130 [lb_av] eCW1 ([facility]) Body height 60 [in_i] 60 [in_i] eCW1 ([facility]) Body mass index (BMI) [Ratio] 25.39 kg/m2 25.39 kg/m2 eCW1 ([facility]) Heart rate 72 /min 72 /min eCW1 (Replaced by [facility]) Diastolic blood pressure 60 mm[Hg] 60 mm[Hg] eCW1 ([facility]) Respiratory rate 18 /min 18 /min eCW1 ([facility]) Body temperature 97.8 [degF] 97.8 [degF] W1 ( [facility]) Systolic blood pressure 92 mm[Hg] 92 mm[Hg] e CW1 ([facility]) Systolic blood pressure 140 mm[Hg] 140 mm[Hg] [facility] Diastolic blood pressure 64 mm[Hg] 64 mm[Hg] [facility] Heart rate 80 /min 80 /min [facility] Body temperature 36.89 Maris 36.89 Maris [facility] Respiratory rate 18 /min 18 /min [facility] Oxygen saturation in Arterial blood by Pulse oximetry 94 % 94 % [facility] Body height 157.5 cm 157.5 cm [facility] Body weight 59.421 kg 59.421 kg [facility] Body mass index (BMI) [Ratio] 23.96 kg/m2 23.96 kg/m2 [facility] Body weight 130 [lb_av] 130 [lb_av] eCW1 ([facility]) Body height 60 [in_i] 60 [in_i] eCW1 ([facility]) Body mass index (BMI) [Ratio] 25.39 kg/m2 25.39 kg/m2 W1 ([facility]) Heart rate 86 /min 86 /min eCW1 (Replaced by [facility]) Respiratory rate 18 /min 18 /min eCW1 ([facility]) Body temperature 97.9 [degF] 97.9 [degF] eCW1 ( [facility]) Systolic blood pressure 98 mm[Hg] 98 mm[Hg] e CW1 ([facility]) Diastolic blood pressure 50 mm[Hg] 50 mm[Hg] eCW1 ([facility]) Body height 64 [in_i] 64 [in_i] MEDENT ([facility]) 5'4" Body weight 134.00 [lb_av] 134.00 [lb_av] MEDEN T ([facility]) Respiratory rate 16 /min 16 /min MEDENT ( [facility]) Body mass index (BMI) [Ratio] 23.0 kg/m2 23.0 k g/m2 MEDENT ([facility]) Heart rate 84 /min 84 /min MEDENT ([facility]) Regular Systolic blood pressure 112 mm[Hg] 112 mm[Hg] M EDENT ([facility]) sitting, regular cuff Diastolic blood pressure 74 mm[Hg] 74 mm[Hg] MEDENT ([facility]) sitting, regular cuff Body height 60 [in_i] 60 [in_i] eCW1 ([facility]) Body weight 130 [lb_av] 130 [lb_av] eCW1 ([facility]) Systolic blood pressure 104 mm[Hg] 104 mm[Hg] e CW1 ([facility]) Diastolic blood pressure 58 mm[Hg] 58 mm[Hg] eCW1 ([facility]) Body mass index (BMI) [Ratio] 25.39 kg/m2 25.39 kg/m2 eCW1 ([facility]) Heart rate 75 /min 75 /min eCW1 (Replaced by [facility]) Respiratory rate 166 /min 166 /min eCW1 ([facility]) Body temperature 98.1 [degF] 98.1 [degF] eCW1 ( [facility]) Body weight 138 [lb_av] 138 [lb_av] eCW1 ([facility]) Body height 60 [in_i] 60 [in_i] eCW1 ([facility]) Body mass index (BMI) [Ratio] 26.95 kg/m2 26.95 kg/m2 eCW1 ([facility]) Heart rate 83 /min 83 /min eCW1 (Replaced by [facility]) Respiratory rate 18 /min 18 /min eCW1 ([facility]) Body temperature 97.0 [degF] 97.0 [degF] eCW1 ( [facility]) Systolic blood pressure 102 mm[Hg] 102 mm[Hg] e CW1 ([facility]) Diastolic blood pressure 54 mm[Hg] 54 mm[Hg] eCW1 ([facility]) Body weight 129.00 [lb_av] 129.00 [lb_av] MEDEN T ([facility]) Body height 64 [in_i] 64 [in_i] MEDENT ([facility]) 5'4" Body mass index (BMI) [Ratio] 22.1 kg/m2 22.1 k g/m2 MEDENT ([facility]) Heart rate 76 /min 76 /min MEDENT ([facility]) Regular Respiratory rate 16 /min 16 /min MEDENT ( [facility]) Systolic blood pressure 102 mm[Hg] 102 mm[Hg] M EDENT ([facility]) sitting, regular cuff Diastolic blood pressure 60 mm[Hg] 60 mm[Hg] MEDENT ([facility]) sitting Diastolic blood pressure 62 mm[Hg] 62 mm[Hg] MEDENT ([facility]) sitting, regular cuff Systolic blood pressure 102 mm[Hg] 102 mm[Hg] M EDENT ([facility]) sitting Body weight 129 [lb_av] 129 [lb_av] eCW1 ([facility]) Body height 60 [in_i] 60 [in_i] eCW1 ([facility]) Body mass index (BMI) [Ratio] 25.19 kg/m2 25.19 kg/m2 eCW1 ([facility]) Heart rate 88 /min 88 /min eCW1 (Replaced by [facility]) Respiratory rate 18 /min 18 /min eCW1 ([facility]) Body temperature 97.6 [degF] 97.6 [degF] eCW1 ( [facility]) Systolic blood pressure 94 mm[Hg] 94 mm[Hg] e CW1 ([facility]) Diastolic blood pressure 50 mm[Hg] 50 mm[Hg] eCW1 ([facility]) Body weight 129.00 [lb_av] 129.00 [lb_av] MEDEN T ([facility]) Systolic blood pressure 102 mm[Hg] 102 mm[Hg] M EDENT ([facility]) Diastolic blood pressure 64 mm[Hg] 64 mm[Hg] MEDENT ([facility]) Body height 60 [in_i] 60 [in_i] [facility] ([facility]) 5'0" Body surface area Derived from formula 1.55 m2 1.55 m2 [facility] ([facility]) Body weight 58.514 kg 58.514 kg [facility] ([facility]) Body mass index (BMI) [Ratio] 25.2 kg/m2 25.2 k g/m2 [facility] ([facility]) Murray body weight 100 [lb_av] 100 [lb_av] MEDEN T ([facility]) ID Date Data Source [id number] 01/08/2020 12:26:50 PM EDT [facility] Name Value Range Interpretation Code Description Data Source(s) WEIGHT RECORDED 128 lb 128 lb [facility] Body height Measured 62 in 62 in [facility] Patient Treatment Plan of Care Planned Activity Planned Date Details Description Data Source (s) fidaxomicin 200 MG Oral Tablet [Dificid] 10/30/2020 12:00:[address] [facility] ([facility]) Insulin Syringe-Needle U-100 31G X 5/16" 0.5 ML 10/21/2020 12:00:[address] [facility] ([facility]) Glucagon 1 MG Injection 10/21/2020 12:00:[address] [facility] ([facility]) Insulin Syringe-Needle U-100 31G X 5/16" 0.5 ML 10/21/2020 12:00:00 AM EDT eCW1 ([facility]) Glucagon 1 MG Injection 10/21/2020 12:00:00 AM EDT eCW1 ([facility]) Glucagon 1 MG Injection 10/21/2020 12:00:00 AM EDT eCW1 ([facility]) Insulin Syringe-Needle U-100 31G X 5/16" 0.5 ML 10/21/2020 12:00:00 AM EDT eCW1 ([facility]) Bacid - 09/01/2020 12:00:00 AM EDT e CW1 ([facility]) Amoxicillin 875 MG / Clavulanate 125 MG Oral Tablet 09/02/19 21 12:00:00 AM EDT eCW1 ([facility]) Bacid - 09/01/2020 12:00:00 AM EDT e CW1 ([facility]) Amoxicillin 875 MG / Clavulanate 125 MG Oral Tablet 09/02/19 21 12:00:00 AM EDT eCW1 ([facility]) Bacid - 09/01/2020 12:00:00 AM EDT e CW1 ([facility]) Amoxicillin 875 MG / Clavulanate 125 MG Oral Tablet 09/02/19 21 12:00:00 AM EDT eCW1 ([facility]) FreeStyle Jaquan 14 Day [place] - 07/05/2020 12:00:00 AM EDT eCW1 ([facility]) FreeStyle Jaquan 14 Day [place] - 07/05/2020 12:00:00 AM EDT eCW1 ([facility]) FreeStyle Jaquan 14 Day [place] - 07/05/2020 12:00:00 AM EDT eCW1 ([facility]) Glipizide 5 MG Oral Tablet 05/16/2020 12:00:00 AM EST [facility] Acetaminophen 325 MG / Hydrocodone Bitartrate 10 MG Or al Tablet 03/16/2020 12:00:00 AM EST eCW1 ([facility]) Acetaminophen 325 MG / Hydrocodone Bitartrate 10 MG Or al Tablet 03/16/2020 12:00:00 AM EST eCW1 ([facility]) Omeprazole 20 MG Delayed Release Oral Capsule 01/22/2020 12:00:00 A M EDT eCW1 ([facility]) Omeprazole 20 MG Delayed Release Oral Capsule 01/22/2020 12:00:00 A M EDT eCW1 ([facility]) Omeprazole 20 MG Delayed Release Oral Capsule 01/22/2020 12:00:00 A M EDT eCW1 ([facility]) pantoprazole 40 MG Delayed Release Oral Tablet 11/26/2019 12:00:00 AM EDT [facility] Metformin hydrochloride 1000 MG Oral Tablet 10/15/2019 12:00:00 AM EDT [facility] Metformin hydrochloride 1000 MG Oral Tablet 10/15/2019 12:00:00 AM EDT [facility] Metformin hydrochloride 1000 MG Oral Tablet [facility] insulin detemir 100 UNT/ML Injectable Solution [facility] 3 ML liraglutide 6 MG/ML Pen Injector [facility]
--- NOTE | 2021-02-18 13:08 | REP ---
INDICATION: syncope. COMPARISON: 09/26/2020 also portable TECHNIQUE: Portable FINDINGS: The technique utilized in obtaining the radiograph has magnified the cardiac silhouette and accentuated the interstitial markings. The cardiomediastinal silhouette lung ferrer are unchanged. The pleural angles are sharp the osseous structures stable and intact. There is an unchanged left mid lung zone nodule. There is a tiny right lung base calcified granuloma status quo. IMPRESSION: No significant change compared to the prior exam. Left lung nodule requiring evaluation with CT. <Electronically signed by Edgardo Robertson > 02/18/21 [id number]
--- NOTE | 2021-02-18 13:18 | REP ---
INDICATION: trauma. COMPARISON: None TECHNIQUE: AP pelvis two views left hip FINDINGS: There is bilateral hip rather symmetric appearing joint space narrowing. There is no acute fracture, dislocation, or subluxation. Degenerative changes seen involving the sacroiliac joints, symphysis pubis, and imaged portion of the spine. IMPRESSION: Chronic changes without evidence of an acute osseous abnormality. <Electronically signed by Edgardo Robertson > 02/18/21 [id number]
--- OUTSIDE RECORDS SUMMARY | 2021-02-18 13:19 | CCD ---
Author Author [facility] Organization [facility] Address Unknown Phone Unavailable Care Team Providers Care Home Builder Name Role Phone Michelle Marcelino MD Unavailable [...] Unavailable Unavailable Girish MALHOTRA DPM Unavailable Unavailable MAJGirish BEY DPM Unavailable Unavailable MAJSOTERO, Girish RASHID DPM Unavailable Unavailable MAJSOTERO, Girish RASHID DPM Unavailable Unavailable MAJSOTERO, Girish RASHID DPM Unavailable Unavailable MAJAK, Girish RASHID DPM Unavailable Unavailable Alberry, D Sloane [employer] SERVICE TEAM MEMBER Unavailable Unavailable Alberry, D Sloane SEAFOOD SERVICE TEAM MEMBER Unavailable Unavailable Alberry, D Sloane SEAFOOD SERVICE TEAM MEMBER Unavailable Unavailable Alberry, D Sloane SEAFOOD SERVICE TEAM MEMBER Unavailable Unavailable Alberry, D Sloane SEAFOOD SERVICE TEAM MEMBER Unavailable Unavailable Alberry, D Sloane SEAFOOD SERVICE TEAM MEMBER Unavailable Unavailable Alberry, D Sloane SEAFOOD SERVICE TEAM MEMBER Unavailable Unavailable Alberry, D Sloane SEAFOOD SERVICE TEAM MEMBER Unavailable Unavailable Alberry, D Sloane SEAFOOD SERVICE TEAM MEMBER Unavailable Unavailable Alberry, D Sloane SEAFOOD SERVICE TEAM MEMBER Unavailable Unavailable Alberry, D Sloane SEAFOOD SERVICE TEAM MEMBER Unavailable Unavailable Alberry, D Sloane SEAFOOD SERVICE TEAM MEMBER Unavailable Unavailable Alberry, D Sloane SEAFOOD SERVICE TEAM MEMBER Unavailable Unavailable Alberry, D Sloane SEAFOOD SERVICE TEAM MEMBER Unavailable Unavailable Alberry, D Sloane SEAFOOD SERVICE TEAM MEMBER Unavailable Unavailable Alberry, D Sloane SEAFOOD SERVICE TEAM MEMBER Unavailable Unavailable Alberry, D Sloane SEAFOOD SERVICE TEAM MEMBER Unavailable Unavailable Alberry, D Sloane SEAFOOD SERVICE TEAM MEMBER Unavailable Unavailable Alberry, D Sloane SEAFOOD SERVICE TEAM MEMBER Unavailable Unavailable Alberry, D Sloane SEAFOOD SERVICE TEAM MEMBER Unavailable Unavailable Alberry, D Sloane SEAFOOD SERVICE TEAM MEMBER Unavailable Unavailable Alberry, D Sloane SEAFOOD SERVICE TEAM MEMBER Unavailable Unavailable Alberry, D Sloane SEAFOOD SERVICE TEAM MEMBER Unavailable Unavailable Alberry, D Sloane SEAFOOD SERVICE TEAM MEMBER Unavailable Unavailable Alberry, D Sloane SEAFOOD SERVICE TEAM MEMBER Unavailable Unavailable Alberry, D Sloane SEAFOOD SERVICE TEAM MEMBER Unavailable Unavailable Alberry, D Sloane SEAFOOD SERVICE TEAM MEMBER Unavailable Unavailable Alberry, D Sloane SEAFOOD SERVICE TEAM MEMBER Unavailable Unavailable Alberry, D Sloane SEAFOOD SERVICE TEAM MEMBER Unavailable Unavailable Alberry, D Sloane SEAFOOD SERVICE TEAM MEMBER Unavailable Unavailable Alberry, D Sloane SEAFOOD SERVICE TEAM MEMBER Unavailable Unavailable Alberry, D Sloane SEAFOOD SERVICE TEAM MEMBER Unavailable Unavailable Alberry, D Sloane SEAFOOD SERVICE TEAM MEMBER Unavailable Unavailable Alberry, D Sloane SEAFOOD SERVICE TEAM MEMBER Unavailable Unavailable Alberry, D Sloane SEAFOOD SERVICE TEAM MEMBER Unavailable Unavailable Alberry, D Sloane SEAFOOD SERVICE TEAM MEMBER Unavailable Unavailable Alberry, D Sloane SEAFOOD SERVICE TEAM MEMBER Unavailable Unavailable Alberry, D Sloane SEAFOOD SERVICE TEAM MEMBER Unavailable Unavailable Alberry, D Sloane SEAFOOD SERVICE TEAM MEMBER Unavailable Unavailable Alberry, D Sloane SEAFOOD SERVICE TEAM MEMBER Unavailable Unavailable Alberry, D Sloane SEAFOOD SERVICE TEAM MEMBER Unavailable Unavailable Alberry, D Sloane SEAFOOD SERVICE TEAM MEMBER Unavailable Unavailable Alberry, D Sloane SEAFOOD SERVICE TEAM MEMBER Unavailable Unavailable Alberry, D Sloane SEAFOOD SERVICE TEAM MEMBER Unavailable Unavailable Alberry, D Sloane SEAFOOD SERVICE TEAM MEMBER Unavailable Unavailable Alberry, D Sloane SEAFOOD SERVICE TEAM MEMBER Unavailable Unavailable Alberry, D Sloane SEAFOOD SERVICE TEAM MEMBER Unavailable Unavailable Alberry, D Sloane SEAFOOD SERVICE TEAM MEMBER Unavailable Unavailable Alberry, D Sloane SEAFOOD SERVICE TEAM MEMBER Unavailable Unavailable Alberry, D Sloane SEAFOOD SERVICE TEAM MEMBER Unavailable Unavailable Alberry, D Sloane SEAFOOD SERVICE TEAM MEMBER Unavailable Unavailable Alberry, D Sloane SEAFOOD SERVICE TEAM MEMBER Unavailable Unavailable Alberry, D Sloane SEAFOOD SERVICE TEAM MEMBER Unavailable Unavailable Alberry, D Sloane SEAFOOD SERVICE TEAM MEMBER Unavailable Unavailable Alberry, D Sloane SEAFOOD SERVICE TEAM MEMBER Unavailable Unavailable Hanna QUESADA MD Unavailable Unavailable [...] Unavailable Dombek-Lang, V Pat MD Unavailable Unavailable IMANI, CARA GAUTAM PA Unavailable Unavailable IMANI, CARA GAUTAM PA Unavailable Unavailable IMANI, CARA GAUTAM PA Unavailable Unavailable IMANI, CRAA GAUTAM PA Unavailable Unavailable IMANI, CARA GAUTAM [...] Dulce Sinai PA Unavailable Unavailable Symenow, Dulce Tylere PA Unavailable Unavailable Symenow, Dulce Sinai PA Unavailable Unavailable Symenow, Dulce Sinai PA Unavailable Unavailable Symenow, Dulce Sinai PA Unavailable Unavailable DORA LLOYD Unavailable Unavailable FieldKiko PA-C Unavailable Kiko Field PA-C Unavailable Emir Kiko PA-C Unavailable Emir Kiko PA-C Unavailable Emir Kiko PA-C Unavailable ANTECOL, Lety WINN MD [...] Unavailable ANTECOL, Lety WINN MD Unavailable Unavailable ANTECOLLety MD Unavailable Unavailable ANTECOL, Lety WINN MD Unavailable Unavailable ANTECOL, Lety WINN MD Unavailable Unavailable ANTECOL, Lety WINN MD Unavailable Unavailable ANTECOL, Lety WINN MD Unavailable Unavailable ANTECOL, Lety WINN MD Unavailable Unavailable ANTECOL, Lety WINN MD Unavailable Unavailable HamNaveed morton MD Unavailable Unavailable HamTianna mortonm MD Unavailable Unavailable Hamad Naveed MD Unavailable Unavailable Hamad Naveed MD Unavailable Unavailable Hamad, Naveed MD Unavailable Unavailable Hamad, Naveed MD Unavailable Unavailable Hamad, Naveed MD Unavailable Unavailable Hamad, Naveed MD Unavailable Unavailable Hamad, Naveed MD Unavailable Unavailable Hamad, Naveed MD Unavailable Unavailable Hamad, Naveed MD Unavailable Unavailable Hamad, Naveed MD Unavailable Unavailable Hampraveen Naveed MD [...] is protected by Article 27-F of the [facility] Public Health law. If you continue you may have access to information: Regarding HIV / AIDS; Provided by facilities licensed or operated by the [facility] Office of Mental Health; or Provided by the [facility] Office for People With Developmental Disabilities. If such information is present, then the following [facility] mandated warning applies: This information has [...] law may result in a fine or shelter sentence or both. A general authorization for the release of medical or other information is NOT sufficient authorization for further disc losure. Allergies and Adverse Reactions Type Description Substance Reaction Status Data Source(s ) Propensity to adverse reactions NO KNOWN ALLERGIES NO KNOWN ALLERGIES [facility] Family History Family Member Name Family Member Gender Family Member Status Date o f Status Description Data Source(s) Unknown Male Problem MED[facility] ([facility] Encounters Encounter Providers Location Date Indications Data Source(s ) Unknown [address] [facility] [id number] 02/15/2021 12:00:00 AM EDT eCW1 ([facility]) Unknown [address] [facility] [id number] 02/07/2021 12:00:00 AM EDT eCW1 ([facility]) Outpatient [address] [facility] [id number] 01/13/2021 12:00:00 AM EDT eCW1 ([facility]) Outpatient Attender: GAY MALHOTRA [facility] Office 12/22 01:15:00 PM EDT [facility] ([facility] Unknown [address] [facility] [address] 12/31/2020 12:00:00 AM EDT eCW1 ([facility]) [place] [address] [facility] [address] 12/30/2020 12:00:00 AM EDT eCW1 ([facility]) [place] [address] [facility] [address] 12/21/2020 12:00:00 AM EDT [facility] Outpatient Attender: Sinai REY Main Office 12/08/2020 09:30:00 AM EDT [facility] ([facility]) [place] [address] [facility] [address] 11/29/2020 12:00:00 AM EDT eCW1 ([facility]) [place] [address] [facility] [address] 11/24/2020 12:00:00 AM EDT eCW1 ([facility]) [place] [address] [facility] [address] 10/30/2020 12:00:00 AM EDT eCW1 ([facility]) [place] [address] [facility] [address] 10/26/2020 12:00:00 AM EDT eCW1 ([facility]) [place] [address] [facility] [address] 10/21/2020 12:00:00 AM EDT eCW1 ([facility]) [place] [address] [facility] [address] 10/15/2020 12:00:00 AM EDT eCW1 ([facility]) Outpatient Attender: GAUTAM DIALLO PAConsultant: Zeb Davidson osp [id number] 10/06/2020 04:00:00 PM EDT [facility] Emergency Attender: GAUTAM DIALLO PAReferrer: Hanna Urrutia [facility] EM[facility]-ER 10/06/2020 03:01:00 PM EDT - 10/06/2020 06:00:00 PM EDT [facility] Patient discharged. Emergency Attender: Kiko ELIASCReferrer: Harshil Urrutia [facility]-ER 10/04/2020 01:50:00 PM EDT - 10/04/2020 02:59:00 PM EDT [facility] Patient discharged. [place] [address] [facility] [address] 10/04/2020 12:00:00 AM EDT eCW1 ([facility]) [place] [address] [facility] [address] 09/29/2020 12:00:00 AM EDT eCW1 ([facility]) Inpatient Attender: Pat Marcelino MDAttender: PATRICIA QUESADA MDAttender: Kiko REY-CAdmitter: Pat Marcelino MDReferrer: Sloane Urrutia [facility] EMERGENCY RO[facility]-2N 09/23/2020 08:00:00 PM EDT - 09/25/2020 06:55:00 PM EDT [facility] Patient discharged. Outpatient Attender: Kiko REY-CConsultant: [facility] [id number] 09/23/2020 06:20:00 PM EDT [facility] Unknown [address] [facility] [address] 09/16/2020 12:00:00 AM EDT eCW1 ([facility]) Office Visit Attender: PA HERNÁNDEZ MD Main Office 09/09/2020 12: 52:00 PM EDT MEDENT ([facility]) Outpatient Attender: Jennie Rosenthal/Martin/Satnam/Girish costa 09/07/2020 09:00:00 AM EDT MED[facility] ([facility] Outpatient Attender: GAY MALHOTRA [facility] Office 08/21 09:15:00 AM EDT [facility] ([facility] [place] [address] [facility] [address] 09/01/2020 12:00:00 AM EDT eCW1 ([facility]) [place] [address] [facility] [address] 09/01/2020 12:00:00 AM EDT eCW1 ([facility]) Outpatient Attender: Sinai REY Main Office 08/30/2020 10:15:00 AM EDT MED[facility] ([facility]) Outpatient [address] [facility] [place] [address] 08/03/2020 12:00:00 AM EDT eCW1 ([facility]) Unknown [address] [facility] [address] 07/29/2020 12:00:00 AM EDT eCW1 ([facility]) Emergency Attender: Jonh Naylor RPA-CReferrer: Sloane monet [facility] 07/24/2020 04:25:00 PM EDT - 07/24/2020 05:25:00 PM EDT [facility] Patient discharged. Outpatient Attender: CARROLL Rosenthal/Martin/Blake castro/Sarah 07/21/2020 09:10:00 AM EDT [facility] ([facility] [place] [address] [facility] [address] 07/08/2020 12:00:00 AM EDT eCW1 ([facility]) Unknown [address] [facility] [place] [address] 07/01/2020 12:00:00 AM EST eCW1 ([facility]) Office Visit Attender: PA HERNÁNDEZ MD Main Office 06/29/2020 11: 09:00 AM EST [facility] ([facility]) Unknown [address] [facility] [address] 06/23/2020 12:00:00 AM EST eCW1 ([facility]) Emergency Attender: Pat Marcelino MDAttender: BUNNY HOSKINS PAReferrer: Sloane Urrutia [employer] SERVICE TEAM MEMBER 06/16/2020 02:20:00 PM EST - 06/16/2020 03:26:00 PM [facility] Patient discharged. Outpatient Attender: DINORAH FLOYD MD [id number] 06/16 12:00:00 AM EST - 06/16/2020 03:42:19 PM EST Cerebral aneurysm, nonruptured [facility] Cerebral aneurysm, nonruptured Unknown [address] [facility] [address] 06/14/2020 12:00:00 AM EST [facility] (TCM) Transition of Care Visit [address] [place] [address] 2020 12:00:00 AM EST eCW1 ([facility]) Unknown [address] [facility] [id number] 06/09/2020 12:00:00 AM EST [facility]CW1 [facility]) Unknown [address] [facility] [address] 06/08/2020 12:00:00 AM EST [facility]CW1 [facility]) Unknown [address] [facility] [address] 06/03/2020 12:00:00 AM EST [facility]CW1 [facility]) Outpatient Attender: Sinai REY Main Office 05/31/2020 08:30:00 AM EST MEDENT ([facility]) Unknown [address] [facility] [address] 05/31/2020 12:00:00 AM EST [facility]CW1 [facility]) Unknown [address] [facility] [address] 05/31/2020 12:00:00 AM EST [facility]CW1 [facility]) Outpatient [address] [facility] [address] 05/24/2020 12:00:00 AM EST [facility]CW1 [facility]) Inpatient Attender: Pat Marcelino MDAttender: VERONICA GARCIA PAAttender: KAMERON LLOYDAdmitter: Pat Marcelino MDReferrer: Sloane [facility] EM[facility]-2N 05/21/2020 11:23:00 AM EST - 05/23/2020 04:45:00 PM [facility] Patient discharged. Inpatient Attender: Naveed Guzman edwin: FLETCHER BARBA MDAdmitter: FLETCHER BARBA MD [id number] 05/14/2020 07:00:47 PM EST - 05/16/2020 01:33:00 PM EST [facility] Patient discharged. Unknown [address] [facility] [address] 05/12/2020 12:00:00 AM EST [facility]CW[facility] Outpatient Attender: Sinai REY Main Office 05/11/2020 08:15:00 AM EST MEDENT ([facility]) Outpatient [address] [facility] [place] [address] 05/11/2020 12:00:00 AM EST [facility] [place] [address] [facility] [address] 05/06/2020 12:00:00 AM EST [facility]1 [facility] [place] [address] [facility] [address] 04/30/2020 12:00:00 AM EST [facility]CW1 [facility] Unknown [address] [facility] [address] 04/27/2020 12:00:00 AM EST [facility]CW1 [facility] Emergency Attender: BUNNY Earlyer: Eleni [facility]-ER 04/23/2020 02:12:00 PM EST - 04/23/2020 06:12:00 PM [facility] Patient discharged. Unknown [address] [facility] [place] [address] 04/13/2020 12:00:00 AM EST [facility]CW1 [facility] Outpatient [address] [facility] [place] [address] 04/12/2020 12:00:00 AM EST eCW1 ([facility]) Office Visit Attender: PA HERNÁNDEZ MD Main Office 03/26/2020 08: 57:00 AM EST MED[facility] ([facility]) Unknown [address] [facility] [address] 03/24/2020 12:00:00 AM EST eCW1 ([facility]) Outpatient Attender: Pat Marcelino MDConsultant: [facility] [id number] 03/23/2020 01:19:00 AM [facility] Inpatient Attender: Pat Marcelino MDAttender: ISAÍAS GRADY PAAttender: BUNNY HOSKINS PAAdmitter: Pat Marcelino MDReferrer: Sloane [facility] EMERGENCY ROOM-2ND FLOOR - INPATIENT SERVICES 03/22/20 11:28:00 PM EST - 03/23/2020 08:21:00 PM [facility] Patient discharged. [place] [address] [facility] [address] 03/22/2020 12:00:00 AM EST eCW1 ([facility]) Outpatient [address] [facility] [place] [address] 03/16/2020 12:00:00 AM EST eCW1 ([facility]) Emergency Attender: BUNNY Juarez: Eleni [facility]-ER 03/13/2020 09:53:00 PM EST - 03/14/2020 01:00:00 AM [facility] Patient discharged. Unknown [address] [facility] [address] 03/12/2020 12:00:00 AM EST eCW1 ([facility]) Emergency Attender: BUNNY Juarez: Sloane Chowdhury 03/11/2020 12:55:00 PM EST - 03/11/2020 02:09:00 PM EST [facility] Patient discharged. Outpatient Attender: Sinai REY Main Office 03/01/2020 09:45:00 AM EST MED[facility] ([facility]) Outpatient [address] [facility] [address] 02/25/2020 12:00:00 AM EST eCW1 ([facility]) Unknown [address] [facility] [address] 02/18/2020 12:00:00 AM EDT eCW1 ([facility]) Office Visit Attender: PA HERNÁNDEZ MD Main Office 02/17/2020 10: 15:00 AM EDT [facility] ([facility]) Unknown [address] [facility] [address] 02/10/2020 12:00:00 AM EDT eCW1 ([facility]) Unknown [address] [facility] [address] 01/22/2020 12:00:00 AM EDT eCW1 ([facility]) Office Visit Attender: PA HERNÁNDEZ MD Main Office 12/23/2019 10: 31:00 AM EDT MEDENT ([facility]) Emergency Attender: Jonh Naylor RPA-CReferrer: Sloane monet [employer] MEMBER 12/13/2019 03:32:00 PM EDT - 12/13/2019 05:28:00 PM EDT [facility] Patient discharged. Outpatient Attender: Omkar Reyna MDAttender: RIGO HUYNH [id number] 12/03/2019 12:00:00 AM EDT - 12/03/2019 03:08:32 PM EDT [facility] Outpatient Attender: EBER Nesbitterrer: EBER YI DO EMERGENCY ROOM-[facility] 03/17/2019 02:48:00 PM [facility] - 03/17/2019 02:48:00 PM [facility] Outpatient Attender: EBER YI DO 2017 02:00:00 PM EDT - 01/17/2018 02:00:00 PM EDT [facility] Outpatient Attender: EBER YI DO 03/18/2014 02:05:00 [facility] Outpatient Attender: EBER YI DO 03/14/2014 08:58:00 [facility] Immunizations Vaccine Date Status Description Data Source(s) influenza, recombinant, quadrIvalent,injectable, prese rvative free 01/13/2021 12:35:00 PM EDT completed eCW1 ([facility]) influenza, recombinant, quadrIvalent,injectable, prese rvative free 01/13/2021 12:35:00 PM EDT completed eCW1 ([facility]) influenza, recombinant, quadrIvalent,injectable, prese rvative free 01/13/2021 12:35:00 PM EDT completed eCW1 ([facility]) COVID-19 dose #2 given elsewhere Unspecified 07/07/2020 10:2 2:00 AM EDT completed eCW1 ([facility]) COVID-19 dose #2 given elsewhere Unspecified 07/07/2020 10:2 2:00 AM EDT completed eCW1 ([facility]) COVID-19 dose #2 given elsewhere Unspecified 07/07/2020 10:2 2:00 AM EDT completed eCW1 ([facility]) COVID-19 dose #2 given elsewhere Unspecified 07/07/2020 10:2 2:00 AM EDT completed eCW1 ([facility]) COVID-19 dose #2 given elsewhere Unspecified 07/07/2020 10:2 2:00 AM EDT completed eCW1 ([facility]) COVID-19 dose #2 given elsewhere Unspecified 07/07/2020 10:2 2:00 AM EDT completed eCW1 ([facility]) COVID-19 dose #2 given elsewhere Unspecified 07/07/2020 10:2 2:00 AM EDT completed eCW1 ([facility]) COVID-19 dose #2 given elsewhere Unspecified 07/07/2020 10:2 2:00 AM EDT completed eCW1 ([facility]) COVID-19 dose #2 given elsewhere Unspecified 07/07/2020 10:2 2:00 AM EDT completed eCW1 ([facility]) COVID-19 dose #2 given elsewhere Unspecified 07/07/2020 10:2 2:00 AM EDT completed eCW1 ([facility]) COVID-19 dose #2 given elsewhere Unspecified 07/07/2020 10:2 2:00 AM EDT completed eCW1 ([facility]) COVID-19 dose #2 given elsewhere Unspecified 07/07/2020 10:2 2:00 AM EDT completed eCW1 ([facility]) COVID-19 dose #2 given elsewhere Unspecified 07/07/2020 10:2 2:00 AM EDT completed eCW1 ([facility]) COVID-19 dose #2 given elsewhere Unspecified 07/07/2020 10:2 2:00 AM EDT completed eCW1 ([facility]) COVID-19 dose #2 given elsewhere Unspecified 07/07/2020 10:2 2:00 AM EDT completed eCW1 ([facility]) COVID-19 dose #2 given elsewhere Unspecified 07/07/2020 10:2 2:00 AM EDT completed eCW1 ([facility]) COVID-19 dose #2 given elsewhere Unspecified 07/07/2020 10:2 2:00 AM EDT completed eCW1 ([facility]) COVID-19 dose #2 given elsewhere Unspecified 07/07/2020 10:2 2:00 AM EDT completed eCW1 ([facility]) COVID-19 VACCINE Moderna 07/07/2020 12:00:00 AM EDT completed [employer] Vaccine Series Complete: YESThis Data wa s Submitted to [facility] Via [employer]. COVID-19 VACCINE, MRNA-1273, LNP-S (MODERNA)/PF 07/07/2020 1 2:00:00 AM EDT completed [facility] COVID-19 dose #1 given elsewhere Unspecified 06/04/2020 10:2 1:00 AM EST completed eCW1 ([facility]) COVID-19 dose #1 given elsewhere Unspecified 06/04/2020 10:2 1:00 AM EST completed eCW1 ([facility]) COVID-19 dose #1 given elsewhere Unspecified 06/04/2020 10:2 1:00 AM EST completed eCW1 ([facility]) COVID-19 dose #1 given elsewhere Unspecified 06/04/2020 10:2 1:00 AM EST completed eCW1 ([facility]) COVID-19 dose #1 given elsewhere Unspecified 06/04/2020 10:2 1:00 AM EST completed eCW1 ([facility]) COVID-19 dose #1 given elsewhere Unspecified 06/04/2020 10:2 1:00 AM EST completed eCW1 ([facility]) COVID-19 dose #1 given elsewhere Unspecified 06/04/2020 10:2 1:00 AM EST completed eCW1 ([facility]) COVID-19 dose #1 given elsewhere Unspecified 06/04/2020 10:2 1:00 AM EST completed eCW1 ([facility]) COVID-19 dose #1 given elsewhere Unspecified 06/04/2020 10:2 1:00 AM EST completed eCW1 ([facility]) COVID-19 dose #1 given elsewhere Unspecified 06/04/2020 10:2 1:00 AM EST completed eCW1 ([facility]) COVID-19 dose #1 given elsewhere Unspecified 06/04/2020 10:2 1:00 AM EST completed eCW1 ([facility]) COVID-19 dose #1 given elsewhere Unspecified 06/04/2020 10:2 1:00 AM EST completed eCW1 ([facility]) COVID-19 dose #1 given elsewhere Unspecified 06/04/2020 10:2 1:00 AM EST completed eCW1 ([facility]) COVID-19 dose #1 given elsewhere Unspecified 06/04/2020 10:2 1:00 AM EST completed eCW1 ([facility]) COVID-19 dose #1 given elsewhere Unspecified 06/04/2020 10:2 1:00 AM EST completed eCW1 ([facility]) COVID-19 dose #1 given elsewhere Unspecified 06/04/2020 10:2 1:00 AM EST completed eCW1 ([facility]) COVID-19 dose #1 given elsewhere Unspecified 06/04/2020 10:2 1:00 AM EST completed eCW1 ([facility]) COVID-19 dose #1 given elsewhere Unspecified 06/04/2020 10:2 1:00 AM EST completed eCW1 ([facility]) COVID-19 VACCINE Moderna 06/04/2020 12:00:00 AM EST completed [employer] Vaccine Series Complete: NOThis Data was Submitted to [facility] Via [employer]. COVID-19 VACCINE, MRNA-1273, LNP-S (MODERNA)/PF 06/04/2020 1 2:00:00 AM EST completed [facility] influenza, recombinant, quadrIvalent,injectable, prese rvative free 01/12/2020 03:51:00 PM EDT completed eCW1 ([facility]) influenza, recombinant, quadrIvalent,injectable, prese rvative free 01/12/2020 03:51:00 PM EDT completed eCW1 ([facility]) influenza, recombinant, quadrIvalent,injectable, prese rvative free 01/12/2020 03:51:00 PM EDT completed eCW1 ([facility]) influenza, recombinant, quadrIvalent,injectable, prese rvative free 01/12/2020 03:51:00 PM EDT completed [facility]1 ([facility] [facility] influenza, recombinant, quadrIvalent,injectable, prese rvative free 01/12/2020 03:51:00 PM EDT completed eCW1 ([facility]) influenza, recombinant, quadrIvalent,injectable, prese rvative free 01/12/2020 03:51:00 PM EDT completed eCW1 ([facility]) influenza, recombinant, quadrIvalent,injectable, prese rvative free 01/12/2020 03:51:00 PM EDT completed eCW1 ([facility]) influenza, recombinant, quadrIvalent,injectable, prese rvative free 01/12/2020 03:51:00 PM EDT completed eCW1 ([facility]) influenza, recombinant, quadrIvalent,injectable, prese rvative free 01/12/2020 03:51:00 PM EDT completed eCW1 ([facility]) influenza, recombinant, quadrIvalent,injectable, prese rvative free 01/12/2020 03:51:00 PM EDT completed eCW1 ([facility]) influenza, recombinant, quadrIvalent,injectable, prese rvative free 01/12/2020 03:51:00 PM EDT completed eCW1 ([facility]) influenza, recombinant, quadrIvalent,injectable, prese rvative free 01/12/2020 03:51:00 PM EDT completed eCW1 ([facility]) influenza, recombinant, quadrIvalent,injectable, prese rvative free 01/12/2020 03:51:00 PM EDT completed eCW1 ([facility]) influenza, recombinant, quadrIvalent,injectable, prese rvative free 01/12/2020 03:51:00 PM EDT completed eCW1 ([facility]) influenza, recombinant, quadrIvalent,injectable, prese rvative free 01/12/2020 03:51:00 PM EDT completed eCW1 ([facility]) influenza, recombinant, quadrIvalent,injectable, prese rvative free 01/12/2020 03:51:00 PM EDT completed eCW1 ([facility]) influenza, recombinant, quadrIvalent,injectable, prese rvative free 01/12/2020 03:51:00 PM EDT completed eCW1 ([facility]) influenza, recombinant, quadrIvalent,injectable, prese rvative free 01/12/2020 03:51:00 PM EDT completed eCW1 ([facility]) influenza, recombinant, quadrIvalent,injectable, prese rvative free 01/12/2020 03:51:00 PM EDT completed eCW1 ([facility]) influenza, recombinant, quadrIvalent,injectable, prese rvative free 01/12/2020 03:51:00 PM EDT completed eCW1 ([facility]) influenza, recombinant, quadrIvalent,injectable, prese rvative free 01/12/2020 03:51:00 PM EDT completed eCW1 ([facility]) influenza, recombinant, quadrIvalent,injectable, prese rvative free 01/12/2020 03:51:00 PM EDT completed eCW1 ([facility]) influenza, recombinant, quadrIvalent,injectable, prese rvative free 01/12/2020 03:51:00 PM EDT completed eCW1 ([facility]) influenza, recombinant, quadrIvalent,injectable, prese rvative free 01/12/2020 03:51:00 PM EDT completed eCW1 ([facility]) influenza, recombinant, quadrIvalent,injectable, prese rvative free 01/12/2020 03:51:00 PM EDT completed eCW1 ([facility]) influenza, recombinant, quadrIvalent,injectable, prese rvative free 01/12/2020 03:51:00 PM EDT completed eCW1 ([facility]) influenza, recombinant, quadrIvalent,injectable, prese rvative free 01/12/2020 03:51:00 PM EDT completed eCW1 ([facility]) influenza, recombinant, quadrIvalent,injectable, prese rvative free 01/12/2020 03:51:00 PM EDT completed eCW1 ([facility]) influenza, recombinant, quadrIvalent,injectable, prese rvative free 01/12/2020 03:51:00 PM EDT completed eCW1 ([facility]) influenza, recombinant, quadrIvalent,injectable, prese rvative free 01/12/2020 03:51:00 PM EDT completed eCW1 ([facility]) influenza, recombinant, quadrIvalent,injectable, prese rvative free 01/12/2020 03:51:00 PM EDT completed eCW1 ([facility]) influenza, recombinant, quadrIvalent,injectable, prese rvative free 01/12/2020 03:51:00 PM EDT completed eCW1 ([facility]) influenza, recombinant, quadrIvalent,injectable, prese rvative free 01/12/2020 03:51:00 PM EDT completed eCW1 ([facility]) influenza, recombinant, quadrIvalent,injectable, prese rvative free 01/12/2020 03:51:00 PM EDT completed eCW1 ([facility]) influenza, recombinant, quadrIvalent,injectable, prese rvative free 01/12/2020 03:51:00 PM EDT completed eCW1 ([facility]) influenza, recombinant, quadrIvalent,injectable, prese rvative free 01/12/2020 03:51:00 PM EDT completed eCW1 ([facility]) influenza, recombinant, quadrIvalent,injectable, prese rvative free 01/12/2020 03:51:00 PM EDT completed eCW1 ([facility]) influenza, recombinant, quadrIvalent,injectable, prese rvative free 01/12/2020 03:51:00 PM EDT completed eCW1 ([facility]) influenza, recombinant, quadrIvalent,injectable, prese rvative free 01/12/2020 03:51:00 PM EDT completed eCW1 ([facility]) influenza, recombinant, quadrIvalent,injectable, prese rvative free 01/12/2020 03:51:00 PM EDT completed eCW1 ([facility]) Medications Medication Brand Name Start Date Product Form Dose Route Admi nistrative Instructions Pharmacy Instructions Status Indications Reaction Description Data Source(s) dapagliflozin 5 MG Oral Tablet [Farxiga] Farxiga 5 MG Farxig a 5 MG 01/13/2021 12:00:00 AM EDT 1.0 {tablet} active Fa rxiga 5 MG eCW1 ([facility]) dapagliflozin 5 MG Oral Tablet [Farxiga] Farxiga 5 MG Farxig a 5 MG 01/13/2021 12:00:00 AM EDT 1.0 {tablet} active Fa rxiga 5 MG eCW1 ([facility]) dapagliflozin 5 MG Oral Tablet [Farxiga] Farxiga 5 MG Farxig a 5 MG 01/13/2021 12:00:00 AM EDT 1.0 {tablet} active Fa rxiga 5 MG eCW1 ([facility]) dapagliflozin 10 MG Oral Tablet [Farxiga] Farxiga [...] 1.0 {tablet} active Dificid 200 MG eCW1 ([facility]) fidaxomicin 200 MG Oral Tablet [Dificid] Dificid 200 MG Difi gisela 200 MG 10/30/2020 12:00:00 AM EDT 1.0 {tablet} active Dificid 200 MG eCW1 ([facility]) fidaxomicin 200 MG Oral Tablet [Dificid] Dificid 200 MG Difi gisela 200 MG 10/30/2020 12:00:00 AM EDT 1.0 {tablet} active Dificid 200 MG eCW1 ([facility]) fidaxomicin 200 MG Oral Tablet [Dificid] Dificid 200 MG Difi gisela 200 MG 10/30/2020 12:00:00 AM EDT 1.0 {tablet} active Dificid 200 MG eCW1 ([facility]) fidaxomicin 200 MG Oral Tablet [Dificid] Dificid 200 MG Difi gisela 200 MG 10/30/2020 12:00:00 AM EDT 1.0 {tablet} active Dificid 200 MG eCW1 ([facility]) fidaxomicin 200 MG Oral Tablet [Dificid] Dificid 200 MG Difi gisela 200 MG 10/30/2020 12:00:00 AM EDT 1.0 {tablet} active Dificid 200 MG eCW1 ([facility]) fidaxomicin 200 MG Oral Tablet [Dificid] Dificid 200 MG Difi gisela 200 MG 10/30/2020 12:00:00 AM EDT 1.0 {tablet} active Dificid 200 MG eCW1 ([facility]) fidaxomicin 200 MG Oral Tablet [Dificid] Dificid 200 MG Difi gisela 200 MG 10/30/2020 12:00:00 AM EDT 1.0 {tablet} active Dificid 200 MG eCW1 ([facility]) fidaxomicin 200 MG Oral Tablet [Dificid] Dificid 200 MG Difi gisela 200 MG 10/30/2020 12:00:00 AM EDT 1.0 {tablet} active Dificid 200 MG eCW1 ([facility]) Insulin Syringe-Needle U-100 31G X 5/16" 0.5 ML Insuli n Syringe-Needle U-100 31G X 5/16" 0.5 ML 10/21/2020 12:00:00 AM EDT ac tive Insulin Syringe- Needle U-100 31G X 5/16" 0.5 ML eCW1 ([facility]) Insulin Syringe-Needle U-100 31G X 5/16" 0.5 ML Insuli n Syringe-Needle U-100 31G X 5/16" 0.5 ML 10/21/2020 12:00:00 AM EDT ac tive Insulin Syringe- Needle U-100 31G X 5/16" 0.5 ML eCW1 ([facility]) Glucagon 1 MG Injection Glucagon Emergency 1 MG Glucagon Dede rgency 1 MG 10/21/2020 12:00:00 AM EDT active Glucagon Emergency 1 MG eCW1 ([facility]) Glucagon 1 MG Injection Glucagon Emergency 1 MG Glucagon Dede rgency 1 MG 10/21/2020 12:00:00 AM EDT active Glucagon Emergency 1 MG eCW1 ([facility]) Insulin Syringe-Needle U-100 31G X 5/16" 0.5 ML Insuli n Syringe-Needle U-100 31G X 5/16" 0.5 ML 10/21/2020 12:00:00 AM EDT ac tive Insulin Syringe- Needle U-100 31G X 5/16" 0.5 ML eCW1 ([facility]) Glucagon 1 MG Injection Glucagon Emergency 1 MG Glucagon Dede rgency 1 MG 10/21/2020 12:00:00 AM EDT active Glucagon Emergency 1 MG eCW1 ([facility]) 125 mg 10/06/2020 12:00:00 AM EDT capsule 80 TAKE TWO CAPSULES BY MOUTH FOUR TIMES A DAY DIRECTED TAKE TWO CAPSULES BY MOUTH FOUR TIMES A DAY DIRECTED SOLD: 10/06/2020 [facility] Atropine Sulfate 0.025 MG / [...] DAILY DOSE = 8 TABLETS SOLD: 10/04/2020 [facility] 300 mg 09/26/2020 12:00:00 AM EDT capsule 14 TAKE ONE CAPSULE BY MOUTH TWICE A DAY TAKE ONE CAPSULE BY MOUTH TWICE A DAY SOLD: 09/26/2020 [facility] Amoxicillin 875 MG / Clavulanate 125 MG Oral Tablet Amoxicillin-Pot Clavulanate 875-125 MG Amoxicillin-Pot Clavulanate 875-125 MG 09/01/2020 12:00:00 AM ED T 1.0 {tablet} active Amoxicillin-Pot Cla vulanate 875-125 MG eCW1 ([facility]) Bacid - Bacid - 09/01/2020 12:00:00 AM EDT active Bacid - eCW1 ([facility]) Amoxicillin 875 MG / Clavulanate 125 MG Oral Tablet 87 5-125 mg AMOXICILLIN/POTASSIUM CLAV 09/01/2020 12:00:00 AM EDT tablet 20 TAKE ONE TABLET BY MOUTH EVERY 12 HOURS FOR 10 DAYS TAKE ONE TABLET BY MOUTH EVERY 12 HOURS FOR 10 DAYS SOLD: 09/01/2020 [facility] Amoxicillin 875 MG / Clavulanate 125 MG Oral Tablet Amoxicillin-Pot Clavulanate 875-125 MG Amoxicillin-Pot Clavulanate 875-125 MG 09/01/2020 12:00:00 AM ED T 1.0 {tablet} suspended Amoxicillin-Pot C lavulanate 875-125 MG eCW1 ([facility]) Amoxicillin 875 MG / Clavulanate 125 MG Oral Tablet Amoxicillin-Pot Clavulanate 875-125 MG Amoxicillin-Pot Clavulanate 875-125 MG 09/01/2020 12:00:00 AM ED T 1.0 {tablet} suspended Amoxicillin-Pot C lavulanate 875-125 MG eCW1 ([facility]) Bacid - Bacid - 09/01/2020 12:00:00 AM EDT active Bacid - eCW1 ([facility]) Bacid - Bacid - 09/01/2020 12:00:00 AM EDT active Bacid - eCW1 ([facility]) Amoxicillin 875 MG / Clavulanate 125 MG Oral Tablet Amoxicillin-Pot Clavulanate 875-125 MG Amoxicillin-Pot Clavulanate 875-125 MG 09/01/2020 12:00:00 AM ED T 1.0 {tablet} suspended Amoxicillin-Pot C lavulanate 875-125 MG eCW1 ([facility]) Amoxicillin 875 MG / Clavulanate 125 MG Oral Tablet Amoxicillin-Pot Clavulanate 875-125 MG Amoxicillin-Pot Clavulanate 875-125 MG 09/01/2020 12:00:00 AM ED T 1.0 {tablet} active Amoxicillin-Pot Cla vulanate 875-125 MG eCW1 ([facility]) Bacid - Bacid - 09/01/2020 12:00:00 AM EDT active Bacid - eCW1 ([facility]) Bacid - Bacid - 09/01/2020 12:00:00 AM EDT active Bacid - eCW1 ([facility]) Bacid - Bacid - 09/01/2020 12:00:00 AM EDT active Bacid - eCW1 ([facility]) Amoxicillin 875 MG / Clavulanate 125 MG Oral Tablet Amoxicillin-Pot Clavulanate 875-125 MG Amoxicillin-Pot Clavulanate 875-125 MG 09/01/2020 12:00:00 AM ED T 1.0 {tablet} active Amoxicillin-Pot Cla vulanate 875-125 MG eCW1 ([facility]) FreeStyle Jaquan 14 Day Addison - FreeStyle Jaquan 14 Day Reade r - 07/05/2020 12:00:00 AM EDT suspended FreeS tyle Jaquan 14 Day Addison - eCW1 ([facility]) FreeStyle Jaquan 14 Day Addison - FreeStyle Jaquan 14 Day Reade r 07/05/2020 12:00:00 AM EDT active FreeStyl e Jaquan 14 Day Addison - eCW1 ([facility]) FreeStyle Jaquan 14 Day Addison - FreeStyle Jaquan 14 Day Reade r 07/05/2020 12:00:00 AM EDT suspended FreeS tyle Jaquan 14 Day Addison - eCW1 ([facility]) FreeStyle Jaquan 14 Day Addison - FreeStyle Jaquan 14 Day Reade r 07/05/2020 12:00:00 AM EDT active FreeStyl e Jaquan 14 Day Addison - eCW1 ([facility]) FreeStyle Jaquan 14 Day Addison - FreeStyle Jaquan 14 Day Reade r 07/05/2020 12:00:00 AM EDT active FreeStyl e Jaquan 14 Day Addison - eCW1 ([facility]) FreeStyle Jaquan 14 Day Addison - FreeStyle Jaquan 14 Day Reade r 07/05/2020 12:00:00 AM EDT suspended FreeS tyle Jaquan 14 Day Addison - eCW1 ([facility]) FreeStyle Jaquan 14 Day Addison - FreeStyle Jaquan 14 Day Reade r - 07/05/2020 12:00:00 AM EDT suspended FreeS tyle Jaquan 14 Day Addison - eCW1 ([facility]) FreeStyle Jaquan 14 Day Addison - FreeStyle Jaquan 14 Day Reade r 07/05/2020 12:00:00 AM EDT active FreeStyl e Jaquan 14 Day Addison - eCW1 ([facility]) FreeStyle Jaquan 14 Day Addison - FreeStyle Jaquan 14 Day Reade r 07/05/2020 12:00:00 AM EDT active FreeStyl e Jaquan 14 Day Addison - eCW1 ([facility]) FreeStyle Jaquan 14 Day Addison - FreeStyle Jaquan 14 Day Reade r 07/05/2020 12:00:00 AM EDT active FreeStyl e Jaquan 14 Day Addison - eCW1 ([facility]) FreeStyle Jaquan 14 Day Addison - FreeStyle Jaquan 14 Day Reade r 07/05/2020 12:00:00 AM EDT suspended FreeS tyle Jaquan 14 Day Addison - eCW1 ([facility]) FreeStyle Jaquan 14 Day Addison - FreeStyle Jaquan 14 Day Reade r 07/05/2020 12:00:00 AM EDT suspended FreeS tyle Jaquan 14 Day Addison - eCW1 ([facility]) FreeStyle Jaquan 14 Day Addison - FreeStyle Jaquan 14 Day Reade r 07/05/2020 12:00:00 AM EDT suspended FreeS tyle Jaquan 14 Day Addison - eCW1 ([facility]) FreeStyle Jaquan 14 Day Addison - FreeStyle Jaquan 14 Day Reade r 07/05/2020 12:00:00 AM EDT active FreeStyl e Jaquan 14 Day Addison - eCW1 ([facility]) FreeStyle Jaquan 14 Day Addison - FreeStyle Jaquan 14 Day Reade r 07/05/2020 12:00:00 AM EDT suspended FreeS tyle Jaquan 14 Day Addison - eCW1 ([facility]) FreeStyle Jaquan 14 Day Addison - FreeStyle Jaquan 14 Day Reade r 07/05/2020 12:00:00 AM EDT suspended FreeS tyle Jaquan 14 Day Addison - eCW1 ([facility]) FreeStyle Jaquan 14 Day Addison - FreeStyle Jaquan 14 Day Reade r 07/05/2020 12:00:00 AM EDT active FreeStyl e Jaquan 14 Day Addison - eCW1 ([facility]) FreeStyle Jaquan 14 Day Addison - FreeStyle Jaquan 14 Day Reade r 07/05/2020 12:00:00 AM EDT active FreeStyl e Jaquan 14 Day Addison - eCW1 ([facility]) FreeStyle Jaquan 14 Day Addison - FreeStyle Jaquan 14 Day Reade r - 07/05/2020 12:00:00 AM EDT suspended FreeS tyle Jaquan 14 Day Addison - eCW1 ([facility]) FreeStyle Jaquan 14 Day Addison - FreeStyle Jaquan 14 Day Reade r - 07/05/2020 12:00:00 AM EDT active FreeStyl e Jaquan 14 Day Addison - eCW1 ([facility]) FreeStyle Jaquan 14 Day Addison - FreeStyle Jaquan 14 Day Reade r - 07/05/2020 12:00:00 AM EDT suspended FreeS tyle Jaquan 14 Day Addison - eCW1 ([facility]) 24 HR metoprolol succinate 50 MG Extended Release Oral Tablet Metoprolol Succinate ER 05/31/2020 12:00:00 AM EST ORAL active MEDENT ([facility]) Sucralfate 1000 MG Oral Tablet Sucralfate 05/30/2020 12:00:00 AM EST active [facility] ([facility]) pantoprazole 40 MG Delayed Release Oral Tablet Pantoprazole Sodium 05/30/2020 12:00:00 AM EST active M EDENT ([facility]) Sucralfate 1000 MG Oral Tablet Sucralfate 05/30/2020 12:00:00 AM EST ORAL active [facility] ([facility]) pantoprazole 40 MG Delayed Release Oral Tablet Pantoprazole Sodium 05/30/2020 12:00:00 AM EST ORAL active M EDENT ([facility]) Furosemide 20 MG Oral Tablet Furosemide 05/30/2020 12:00:00 AM EST ORAL active [facility]ENT ([facility]) insulin detemir 100 UNT/ML Injectable Solution [Levemir] Lev nila 05/30/2020 12:00:00 AM EST SUBCUTANEOUS active MEDENT ([facility]) 20 mg 05/23/2020 12:00:00 AM EST tablet [...] 2 (two) times a day before meals [facility] sodium chloride 0.9% (NS) infusion 7019-7717-22 05/15/2020 11:00:00 A M EST Intravenous active at 75 mL/hr, Intravenous, Continuous, Starting 05/15/20 at 1100 [facility] Medication administered onsite potassium chloride (KLOR-CON) packet 40 mEq [id number] 05/15/2020 11:00:00 AM EST 40 meq Oral completed 40 mEq , Oral, Once, 05/15/20 at 1100, For 1 dose [facility] Medication administered onsite furosemide (LASIX) injection 20 mg [id number] 05/15/2020 09:00:00 AM EST 20 mg Intravenous aborted 20 mg, I ntravenous, LOOPBID, First dose on 05/15/20 at 0900 [facility] Medication administered onsite pantoprazole 40 MG Delayed Release Oral Tablet pantoprazole (PROTONIX) EC tablet 40 mg pantoprazole (PROTONIX) EC tablet 40 mg 05/15/2020 09:00:[address] 40 mg Oral active Gastroesophageal Reflux Diseas e 40 mg, Oral, Daily, Indications: Gastroesophageal Reflux Disease, First dose on 05/15/20 at 0900 [facility] Gastroesophageal Reflux Disease Medication administered onsite 24 HR Isosorbide Mononitrate 30 MG Exten ded Release Oral Tablet isosorbide mononitrate (IMDUR) 24 hr tablet 30 mg isosorbide mononitrate (IMDUR) 24 hr tablet 30 mg 05/15/2020 09:00:00 AM EST 30 mg Oral activ e 30 mg, Oral, Daily, First dose on 05/15/20 at 0900 [facility] Medication administered onsite duloxetine 60 MG Delayed Release Oral Ca psule DULoxetine (CYMBALTA) capsule 60 mg DULoxetine (CYMBALTA) DR capsule 60 mg 05/15/2020 09:00:00 AM EST 60 mg Oral active 60 mg, Oral, Daily, First dose on 05/15/20 at 0900 [facility] Medication administered onsite Aspirin 81 MG Delayed Release Oral Tablet aspirin EC t ablet 81 mg aspirin EC tablet 81 mg 05/15/2020 09:00:00 AM EST 81 mg Oral activ e 81 mg, Oral, Daily, First dose on 05/15/20 at 0900 [facility] Medication administered onsite Insulin Lispro 100 [...] cover POC glucose at 08:00, 12:00, 17:00.
[facility] Medication administered onsite Nitroglycerin 0.02 MG/MG Topical Ointmen t nitroglycerin (NITROSTAT) 2 % ointment 0.5 inch nitroglycerin (NITROSTAT) 2 % ointment 0.5 inch 2020 12:00:00 AM EST 0.5 g Topical active 0.5 inch (0.5 g), Topical, Every 6 hours (scheduled), First dose on Sun05/15/20 at 0000
1 inch = 1 gram
[facility] Medication administered onsite normal saline flush 0.9 % injection 3 mL [id number] 05/14/2020 10:00:00 PM EST 3 mL Intravenous active 3 mL , Intravenous, Every 8 hours (scheduled), First dose on Sun05/14/20 at 2200
Rapid push positive pressure flushing shall be performed with a 10 cc normal saline syringe to check the PATENCY of a PIV site prior to any infusion therapy initiation unless resistance is met.
[facility] Medication administered onsite Ticagrelor 90 MG Oral Tablet ticagrelor (BRILINTA) tab let 90 mg ticagrelor (BRILINTA) tablet 90 mg 05/14/2020 10:00:00 PM EST 90 mg Oral active 90 mg, Oral, 2 times daily, First dose on Sun05/14/20 at 2200 [facility] Medication administered onsite 12 HR ranolazine 500 MG Extended Release Oral Tablet ranolazine (RANEXA) 12 hr tablet 500 mg ranolazine (RANEXA) 12 hr tablet 500 mg 05/14/2020 10: 00:00 PM EST 500 mg Oral active 500 mg, Oral, 2 times daily, First dose on Sun05/14/20 at 2200 [facility] Medication administered onsite magnesium oxide (MAG-OX) tablet 400 mg [id number] 10:00:00 PM EST 400 mg Oral active 400 mg, Oral, 2 times daily, First dose on Sun05/14/20 at 2200 [facility] Medication administered onsite gabapentin 800 MG Oral Tablet gabapentin (NEURONTIN) t ablet 800 mg gabapentin (NEURONTIN) tablet 800 mg 05/14/2020 10:00:00 PM EST 800 mg Oral active 800 mg, Oral, Nightly, First dose on Sun05/14/20 at 22 00 [facility] Medication administered onsite carvedilol 6.25 MG Oral Tablet carvedilol (COREG) tabl et 12.5 mg carvedilol (COREG) tablet 12.5 mg 05/14/2020 10:00:00 PM EST 12.5 mg Oral active 12.5 mg, Oral, 2 times daily, First dose on Sun05/14/20 at 2200 [facility] Medication administered onsite atorvastatin 80 MG Oral Tablet atorvastatin (LIPITOR) tablet 80 mg atorvastatin (LIPITOR) tablet 80 mg 05/14/2020 10:00:00 PM EST 80 mg Oral active 80 mg, Oral, Nightly, First dose on Sun05/14/20 at 2200 [facility] Medication administered onsite normal saline flush 0.9 % injection 3 mL [id number] 05/14/2020 10:00:00 PM EST 3 mL Intravenous active 3 mL , Intravenous, Every 8 hours (scheduled), First dose on Sun05/14/20 at 2200
flush per protocol, D/C Main IV fluid if appropriate
[facility] Medication administered onsite Nitroglycerin 0.4 MG Sublingual Tablet n itroglycerin (NITROSTAT) SL tablet 0.4 mg nitroglycerin (NITROSTAT) SL tablet 0.4 mg 05/14/2020 09:10:25 P M EST 0.4 mg Sublingual active 0.4 mg, S ublingual, Every 5 min PRN, chest pain, Starting Sun05/14/20 at 2110
May administer up to 3 doses per episode.
[facility] Medication administered onsite ondansetron (ZOFRAN) injection 4 mg [id number] 05/14/2020 08:07:3 8 PM EST 4 mg Intravenous active 4 mg, In travenous, Every 6 hours PRN, nausea, vomiting, Starting Sun05/14/20 at 2006 [facility] Medication administered onsite Acetaminophen 325 MG Oral Tablet acetaminophen (TYLENO L) 325 MG tablet 650 mg acetaminophen (TYLENOL) 325 MG tablet 650 mg 05/14/2020 08:07:32 PM EST 650 mg Oral active 650 mg, Or al, Every 8 hours PRN, mild pain (1-3), headaches, Starting Sun05/14/20 at 2006
"Maximum dose of acetaminophen is 4,000 mg from all sources in 24 hours."
[facility] Medication administered onsite 1 ML heparin sodium, porcine 1000 UNT/ML Injection heparin (porcine) injection 3,600 Units heparin (porcine) injection 3,600 Units 05/14/2020 08:00:00 PM EST 60 U/kg Intravenous completed 3,600 Unit s (rounded from 3,564 Units = 60 Units/kg 59.4 kg), Intravenous, Once, Sun05/14/20 at 2000, For 1 dose
Do not exceed 5,000 units or 60 units/kg (whichever is less)
[facility] Medication administered onsite 500 ML heparin [...] 1 unit/kg/hr IV58.1 - 87 Therapeutic, No [id number] - 97 Decrease infusion 1 unit/kg/hr IV [...] single port tubing ([employer] Infusion Set ref [id number]). Medication and tubing is to be discarded if infusion off for 4 hours.
[facility] Medication administered onsite 1 ML heparin [...] 30 units/kg IV (Maximum bolus: 5,000 units)
[facility] Medication administered onsite Acetaminophen 325 MG / Hydrocodone Renetta trate 10 MG Oral Tablet Hydrocodone- Acetaminophen 10-325 MG Hydrocodone-Acetaminophen 10-325 MG 03/16/2020 12:00:0 0 AM EST 1.0 {tablet_as_needed} suspended Hydrocodone-Acetaminophen 10-325 MG eCW1 ([facility]) Acetaminophen 325 MG / Hydrocodone Renetta trate 10 MG Oral Tablet Hydrocodone- Acetaminophen 10-325 MG Hydrocodone-Acetaminophen 10-325 MG 03/16/2020 12:00:0 0 AM EST 1.0 {tablet_as_needed} suspended Hydrocodone-Acetaminophen 10-325 MG eCW1 ([facility]) Acetaminophen 325 MG / Hydrocodone Renetta trate 10 MG Oral Tablet Hydrocodone- Acetaminophen 10-325 MG Hydrocodone-Acetaminophen 10-325 MG 03/16/2020 12:00:0 0 AM EST 1.0 {tablet_as_needed} suspended Hydrocodone-Acetaminophen 10-325 MG eCW1 ([facility]) Acetaminophen 325 MG / Hydrocodone Renetta trate 10 MG Oral Tablet Hydrocodone- Acetaminophen 10-325 MG Hydrocodone-Acetaminophen 10-325 MG 03/16/2020 12:00:0 0 AM EST 1.0 {tablet_as_needed} suspended Hydrocodone-Acetaminophen 10-325 MG eCW1 ([facility]) Acetaminophen 325 MG / Hydrocodone Renetta trate 10 MG Oral Tablet HYDROcodone- Acetaminophen 10-325 MG HYDROcodone-Acetaminophen 10-325 MG 03/16/2020 12:00:0 0 AM EST 1.0 {tablet_as_needed} suspended HYDROcodone-Acetaminophen 10-325 MG eCW1 ([facility]) Acetaminophen 325 MG / Hydrocodone Renetta trate 10 MG Oral Tablet Hydrocodone- Acetaminophen 10-325 MG Hydrocodone-Acetaminophen 10-325 MG 03/16/2020 12:00:0 0 AM EST 1.0 {tablet_as_needed} suspended Hydrocodone-Acetaminophen 10-325 MG eCW1 ([facility]) Acetaminophen 325 MG / Hydrocodone Renetta trate 10 MG Oral Tablet Hydrocodone- Acetaminophen 10-325 MG Hydrocodone-Acetaminophen 10-325 MG 03/16/2020 12:00:0 0 AM EST 1.0 {tablet_as_needed} suspended Hydrocodone-Acetaminophen 10-325 MG eCW1 ([facility]) Acetaminophen 325 MG / Hydrocodone Renetta trate 10 MG Oral Tablet HYDROcodone- Acetaminophen 10-325 MG HYDROcodone-Acetaminophen 10-325 MG 03/16/2020 12:00:0 0 AM EST 1.0 {tablet_as_needed} suspended HYDROcodone-Acetaminophen 10-325 MG eCW1 ([facility]) Acetaminophen 325 MG / Hydrocodone Renetta trate 10 MG Oral Tablet Hydrocodone- Acetaminophen 10-325 MG Hydrocodone-Acetaminophen 10-325 MG 03/16/2020 12:00:0 0 AM EST 1.0 {tablet_as_needed} suspended Hydrocodone-Acetaminophen 10-325 MG eCW1 ([facility]) Acetaminophen 325 MG / Hydrocodone Renetta trate 10 MG Oral Tablet Hydrocodone- Acetaminophen 10-325 MG Hydrocodone-Acetaminophen 10-325 MG 03/16/2020 12:00:0 0 AM EST 1.0 {tablet_as_needed} suspended Hydrocodone-Acetaminophen 10-325 MG eCW1 ([facility]) Acetaminophen 325 MG / Hydrocodone Renetta trate 10 MG Oral Tablet Hydrocodone- Acetaminophen 10-325 MG Hydrocodone-Acetaminophen 10-325 MG 03/16/2020 12:00:0 0 AM EST 1.0 {tablet_as_needed} active Hydrocodone-Acetaminophen 10- 325 MG eCW1 ([facility]) Acetaminophen 325 MG / Hydrocodone Renetta trate 10 MG Oral Tablet Hydrocodone- Acetaminophen 10-325 MG Hydrocodone-Acetaminophen 10-325 MG 03/16/2020 12:00:0 0 AM EST 1.0 {tablet_as_needed} suspended Hydrocodone-Acetaminophen 10-325 MG eCW1 ([facility]) Acetaminophen 325 MG / Hydrocodone Renetta trate 10 MG Oral Tablet Hydrocodone- Acetaminophen 10-325 MG Hydrocodone-Acetaminophen 10-325 MG 03/16/2020 12:00:0 0 AM EST 1.0 {tablet_as_needed} active Hydrocodone-Acetaminophen 10- 325 MG eCW1 ([facility]) Acetaminophen 325 MG / Hydrocodone Renetta trate 10 MG Oral Tablet Hydrocodone- Acetaminophen 10-325 MG Hydrocodone-Acetaminophen 10-325 MG 03/16/2020 12:00:0 0 AM EST 1.0 {tablet_as_needed} suspended Hydrocodone-Acetaminophen 10-325 MG eCW1 ([facility]) Acetaminophen 325 MG / Hydrocodone Renetta trate 10 MG Oral Tablet Hydrocodone- Acetaminophen 10-325 MG Hydrocodone-Acetaminophen 10-325 MG 03/16/2020 12:00:0 0 AM EST 1.0 {tablet_as_needed} suspended Hydrocodone-Acetaminophen 10-325 MG eCW1 ([facility]) Acetaminophen 325 MG / Hydrocodone Renetta trate 10 MG Oral Tablet Hydrocodone- Acetaminophen 10-325 MG Hydrocodone-Acetaminophen 10-325 MG 03/16/2020 12:00:0 0 AM EST 1.0 {tablet_as_needed} suspended Hydrocodone-Acetaminophen 10-325 MG eCW1 ([facility]) Acetaminophen 325 MG / Hydrocodone Renetta trate 10 MG Oral Tablet Hydrocodone- Acetaminophen 10-325 MG Hydrocodone-Acetaminophen 10-325 MG 03/16/2020 12:00:0 0 AM EST 1.0 {tablet_as_needed} suspended Hydrocodone-Acetaminophen 10-325 MG eCW1 ([facility]) Acetaminophen 325 MG / Hydrocodone Renetta trate 10 MG Oral Tablet Hydrocodone- Acetaminophen 10-325 MG Hydrocodone-Acetaminophen 10-325 MG 03/16/2020 12:00:0 0 AM EST 1.0 {tablet_as_needed} suspended Hydrocodone-Acetaminophen 10-325 MG eCW1 ([facility]) Acetaminophen 325 MG / Hydrocodone Renetta trate 10 MG Oral Tablet Hydrocodone- Acetaminophen 10-325 MG Hydrocodone-Acetaminophen 10-325 MG 03/16/2020 12:00:0 0 AM EST 1.0 {tablet_as_needed} suspended Hydrocodone-Acetaminophen 10-325 MG eCW1 ([facility]) Acetaminophen 325 MG / Hydrocodone Renetta trate 10 MG Oral Tablet Hydrocodone- Acetaminophen 10-325 MG Hydrocodone-Acetaminophen 10-325 MG 03/16/2020 12:00:0 0 AM EST 1.0 {tablet_as_needed} suspended Hydrocodone-Acetaminophen 10-325 MG eCW1 ([facility]) Acetaminophen 325 MG / Hydrocodone Renetta trate 10 MG Oral Tablet Hydrocodone- Acetaminophen 10-325 MG Hydrocodone-Acetaminophen 10-325 MG 03/16/2020 12:00:0 0 AM EST 1.0 {tablet_as_needed} suspended Hydrocodone-Acetaminophen 10-325 MG eCW1 ([facility]) Acetaminophen 325 MG / Hydrocodone Renetta trate 10 MG Oral Tablet Hydrocodone- Acetaminophen 10-325 MG Hydrocodone-Acetaminophen 10-325 MG 03/16/2020 12:00:0 0 AM EST 1.0 {tablet_as_needed} suspended Hydrocodone-Acetaminophen 10-325 MG eCW1 ([facility]) Acetaminophen 325 MG / Hydrocodone Renetta trate 10 MG Oral Tablet Hydrocodone- Acetaminophen 10-325 MG Hydrocodone-Acetaminophen 10-325 MG 03/16/2020 12:00:0 0 AM EST 1.0 {tablet_as_needed} suspended Hydrocodone-Acetaminophen 10-325 MG eCW1 ([facility]) Acetaminophen 325 MG / Hydrocodone Renetta trate 10 MG Oral Tablet Hydrocodone- Acetaminophen 10-325 MG Hydrocodone-Acetaminophen 10-325 MG 03/16/2020 12:00:0 0 AM EST 1.0 {tablet_as_needed} active Hydrocodone-Acetaminophen 10- 325 MG eCW1 ([facility]) Acetaminophen 325 MG / Hydrocodone Renetta trate 10 MG Oral Tablet Hydrocodone- Acetaminophen 10-325 MG Hydrocodone-Acetaminophen 10-325 MG 03/16/2020 12:00:0 0 AM EST 1.0 {tablet_as_needed} suspended Hydrocodone-Acetaminophen 10-325 MG eCW1 ([facility]) Acetaminophen 325 MG / Hydrocodone Renetta trate 10 MG Oral Tablet HYDROcodone- Acetaminophen 10-325 MG HYDROcodone-Acetaminophen 10-325 MG 03/16/2020 12:00:0 0 AM EST 1.0 {tablet_as_needed} suspended HYDROcodone-Acetaminophen 10-325 MG eCW1 ([facility]) Acetaminophen 325 MG / Hydrocodone Renetta trate 10 MG Oral Tablet Hydrocodone- Acetaminophen 10-325 MG Hydrocodone-Acetaminophen 10-325 MG 03/16/2020 12:00:0 0 AM EST 1.0 {tablet_as_needed} suspended Hydrocodone-Acetaminophen 10-325 MG eCW1 ([facility]) Acetaminophen 325 MG / Hydrocodone Renetta trate 10 MG Oral Tablet Hydrocodone- Acetaminophen 10-325 MG Hydrocodone-Acetaminophen 10-325 MG 03/16/2020 12:00:0 0 AM EST 1.0 {tablet_as_needed} suspended Hydrocodone-Acetaminophen 10-325 MG eCW1 ([facility]) Acetaminophen 325 MG / Hydrocodone Renetta trate 10 MG Oral Tablet Hydrocodone- Acetaminophen 10-325 MG Hydrocodone-Acetaminophen 10-325 MG 03/16/2020 12:00:0 0 AM EST 1.0 {tablet_as_needed} suspended Hydrocodone-Acetaminophen 10-325 MG eCW1 ([facility]) Magnesium 02/29/2020 12:00:00 AM EST ORAL active MEDENT ([facility]) Metformin hydrochloride 1000 MG Oral Tablet Metformin HCL 02/29/2020 12:00:00 AM EST ORAL completed MEDENT ([facility]) ferrous sulfate 325 MG Oral Tablet Iron 02/29/2020 12:00:00 AM EST ORAL active [facility] ([facility]) Omeprazole 20 MG Delayed Release Oral Capsule Omeprazole 02/29/2020 12:00:00 AM EST ORAL completed [facility] ([facility]) Omeprazole 20 MG Delayed Release Oral Capsule Omeprazole 20 MG 01/22/2020 12:00:00 AM EDT active Omeprazo le 20 MG eCW1 ([facility]) Omeprazole 20 MG Delayed Release Oral Capsule Omeprazole 20 MG 01/22/2020 12:00:00 AM EDT active Omeprazo le 20 MG eCW1 ([facility]) Omeprazole 20 MG Delayed Release Oral Capsule Omeprazole 20 MG 01/22/2020 12:00:00 AM EDT active Omeprazo le 20 MG eCW1 ([facility]) Omeprazole 20 MG Delayed Release Oral Capsule Omeprazole 20 MG 01/22/2020 12:00:00 AM EDT active Omeprazo le 20 MG eCW1 ([facility]) Omeprazole 20 MG Delayed Release Oral Capsule Omeprazole 20 MG 01/22/2020 12:00:00 AM EDT active Omeprazo le 20 MG eCW1 ([facility]) Omeprazole 20 MG Delayed Release Oral Capsule Omeprazole 20 MG 01/22/2020 12:00:00 AM EDT active Omeprazo le 20 MG eCW1 ([facility]) Omeprazole 20 MG Delayed Release Oral Capsule Omeprazole 20 MG 01/22/2020 12:00:00 AM EDT active Omeprazo le 20 MG eCW1 ([facility]) Omeprazole 20 MG Delayed Release Oral Capsule Omeprazole 20 MG 01/22/2020 12:00:00 AM EDT active Omeprazo le 20 MG eCW1 ([facility]) Omeprazole 20 MG Delayed Release Oral Capsule Omeprazole 20 MG 01/22/2020 12:00:00 AM EDT active Omeprazo le 20 MG eCW1 ([facility]) Omeprazole 20 MG Delayed Release Oral Capsule Omeprazole 20 MG 01/22/2020 12:00:00 AM EDT active Omeprazo le 20 MG eCW1 ([facility]) Omeprazole 20 MG Delayed Release Oral Capsule Omeprazole 20 MG 01/22/2020 12:00:00 AM EDT active Omeprazo le 20 MG eCW1 ([facility]) Omeprazole 20 MG Delayed Release Oral Capsule Omeprazole 20 MG 01/22/2020 12:00:00 AM EDT active Omeprazo le 20 MG eCW1 ([facility]) Magnesium 11/27/2019 12:00:00 AM EDT ORAL complete d MEDENT ([facility]) pantoprazole 40 MG Delayed Release Oral Tablet pantoprazole (PROTONIX) 40 MG tablet pantoprazole (PROTONIX) 40 MG tablet 11/26/2019 12:00:00 AM EDT 40 mg Oral aborted Take 1 tablet (40 mg total) by mouth daily [facility] Metformin hydrochloride 1000 MG Oral Tab let metFORMIN (GLUCOPHAGE) 1000 MG tablet metFORMIN (GLUCOPHAGE) 1000 MG tablet 10/15/2019 12:00:00 AM EDT 1000 mg Oral aborted Take 1 tab let (1,000 mg total) by mouth daily with breakfast [facility] Metformin hydrochloride 1000 MG Oral Tab let metFORMIN (GLUCOPHAGE) 1000 MG tablet metFORMIN (GLUCOPHAGE) 1000 MG tablet 10/15/2019 12:00:00 AM EDT 1500 mg Oral aborted Take 1.5 t ablets (1,500 mg total) by mouth every evening [facility] Metformin hydrochloride 1000 MG Oral Tab let metFORMIN (GLUCOPHAGE) 1000 MG tablet metFORMIN (GLUCOPHAGE) 1000 MG tablet 1000 mg Oral aborted Take 1,000 mg by mouth 2 (two) times a day [facility] 3 ML liraglutide 6 MG/ML Pen Injector Liraglutide (BLANK TOZA) 18 MG/3ML SOPN Liraglutide (VICTOZA) 18 MG/3ML SOPN 1.8 mg Subcutaneous aborted Inject 1.8 mg under the skin daily [facility] insulin detemir 100 UNT/ML Injectable So lution insulin detemir (LEVEMIR) 100 UNIT/ML injection insulin detemir (LEVEMIR) 100 UNIT/ML injection 25 U Subcutaneous aborted Inject 25 Units u nder the skin nightly [facility] Insurance Providers Payer name Policy type / Coverage type Policy ID Covered green party ID Covered green party's relationship to erwin Policy Erwin Plan Information [facility] MEDICARE 1 [id number] 1 [id number] MEDICARE [id number] xxxxxxxxxxx [id number] MEDICARE M [id number] S [id number] A [facility] MEDICARE DIVISION [id number] S [id number] [place]IC[place] [id number] S [id number] [facility] MEDICARE DIVISION [id number] S [id number] [place] [id number] S [id number] MEDICARE A [id number] Self [id number] MEDICARE [id number] Sandra [id number] [employer] [id number] S [id number] [employer] [id number] S [id number] [place] [id number] S [id number] [place] [id number] S [id number] AARP 2 [id number] [facility] [id number] xxxxxxxxxxx [id number] [facility] [id number] Sandra [id number] INSURANCE COVID-19 COVID Sandra C OVID INSURANCE COVID-19 [id number] [id number] AARP U [id number] Self [id number] AARP U [id number] Self [id number] Medicare Dme Medigap Part B [id number] Self [id number] [employer] Insurance Medigap Part B [id number] Self 3 [id number] 11 Medicare Medicare Primary [id number]. [id number] Self [id number] Medicare Dme Medigap Part B [id number] Self [id number] [employer] Insurance Medigap Part B [id number] Self 3 [id number] 11 Medicare Medicare Primary [id number]. [id number] Self [id number] [employer] HE[employer] CARE OPTIONS [id number] SP [id number] MEDICARE [id number] [employer] Insurance Medigap Part B [id number] Self 3 [id number] 11 Medicare Medicare Primary [id number]. [id number] Self [id number] [employer] Medigap Part B [id number] Self 3 [id number] Medicare Medicare Primary [id number]. [id number] Self [id number] [employer] Insurance Medigap Part B [id number] Self 3 [id number] 11 Medicare Medicare Primary [id number]. [id number] Self [id number] [facility] [id number] 11 [id number] Self 3 [id number] 11 Medicare Medicare Primary [id number]. [id number] Self [id number] AARP HEALTH CARE O [id number] S 3 [id number] SELF PAY UNAVAILABLE SP UNAVAILA BLE [employer] HE[employer] CARE OPTIONS [id number] SP [id number] MEDICARE [id number] SP [id number] [employer] HE[employer] CARE OPTIONS [id number] S [id number] [employer] HE[employer] CARE OPTIONS [id number] S [id number] [employer] MEDICARE DIVISION [id number] S [id number] MEDICARE [place] [id number] S [id number] AARP O [id number] S [id number] MEDICARE C [id number] S [id number] [employer] MEDICARE DIVISION [id number] S [id number] [place]ICARE [place] [id number] S [id number] Medicare Dme [facility] [id number] Self [id number] [employer] [facility] [id number] Self [id number] 11 Medicare Medicare Primary [id number] Self [id number] Medicare Dme Medigap Part B [id number] Self [id number] Aarp Insurance [facility] Part B [id number] Self 3 [id number] 11 Medicare Medicare Primary [id number]. [id number] Self [id number] Medicare Dme Medigap Part B [id number] Self [id number] [employer] Insurance [facility] Part B [id number] 11 [id number] Self 3 [id number] 11 Medicare Medicare Primary [id number]. 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 GROUP HOME (CU RRENT) USE OF INSULIN Diagnosis 10/06/2020 03:01:00 PM [facility] Z87.891 Personal history of nicotine dependence PERSONAL HISTORY OF NICOTINE DEPENDENCE Diagnosis 10/06/2020 03:01:00 PM [facility] Z79.899 Other skilled nursing (current) drug therapy O THER TAX CONSULTANT (CURRENT) DRUG THERAPY Diagnosis 10/06/2020 03:01:00 PM [facility] Z79.82 vermin exterminator (current) use of aspirin TAX CONSULTANT (CU RRENT) USE OF ASPIRIN Diagnosis 10/06/2020 03:01:00 PM [facility] Z90.49 Acquired absence of other specified part s of digestive tract ACQUIRED ABSENCE OF OTHER SPECIFIED PARTS OF DIGES Diagnosis 10/06/2020 03:01:0 0 PM [facility] Z95.5 Presence of coronary angioplasty implant and graft PRESENCE OF CORONARY ANGIOPLASTY IMPLANT AND GRAFT Diagnosis 10/06/2020 03:01:00 PM [facility] Z79.02 vermin exterminator (current) use of antithromboti cs/antiplatelets TAX CONSULTANT (CURRENT) USE OF ANTITHROMBOTICS/ANTIPLA Diagnosis 10/06/2020 03:01:00 PM [facility] A04.71 ENTEROCOLITIS DUE TO CLOSTRIDIUM DIFFICI LE, RECURR ENTEROCOLITIS DUE TO CLOSTRIDIUM DIFFICILE, RECURR Diagnosis 10/06/2020 03:01:00 PM [facility] I50.9 Heart failure, unspecified HEART FAILURE, UNSPECIFIED Diagnosis 10/06/2020 03:01:00 PM [facility] I11.0 Hypertensive heart disease with heart fa ilure HYPERTENSIVE HEART DISEASE WITH HEART FAILURE Diagnosis 10/06/2020 03:01:00 PM [facility] l E78.00 PURE HYPERCHOLESTEROLEMIA, UNSPECIFIED P URE HYPERCHOLESTEROLEMIA, UNSPECIFIED Diagnosis 10/06/2020 03:01:00 PM [facility] I25.10 Atherosclerotic heart diseas e of [place] coronary artery without angina pectoris ATHSCL HEART DISEASE OF [place] CORONARY ARTERY W/O Diagnosis 10/06/2020 03:01:00 PM [facility] E11.9 Type 2 diabetes mellitus without complic ations TYPE 2 DIABETES MELLITUS WITHOUT COMPLICATIONS Diagnosis 10/06/2020 03:01:00 PM [facility] luis R19.7 Diarrhea, unspecified DIARRHEA, UNSPECIFIED Diagnosis 10/06/2020 03:01:00 PM [facility] I10 Essential (primary) hypertension ESSENTIAL (PRIMARY) H YPERTENSION Diagnosis 10/04/2020 01:50:00 PM [facility] E87.6 Hypokalemia HYPOKALEMIA Diagnosis 10/04/2020 01:50:00 PM [facility] Z86.73 Personal history of transien t ischemic attack (TIA), and cerebral infarction without residual deficits PRSNL HX OF TIA (TIA), AND CEREB INFRC W /O RESID D Diagnosis 09/23/2020 08:00:00 PM [facility] Z20.822 CONTACT WITH AND (SUSPECTED) EXPOSURE TO COVID-19 CONTACT WITH AND (SUSPECTED) EXPOSURE TO COVID-19 Diagnosis 09/23/2020 08:00:00 PM [facility] E11.40 Type 2 diabetes mellitus with diabetic n europathy, unspecified TYPE 2 DIABETES MELLITUS WITH DIABETIC NEUROPATHY, Diagnosis 09/23/2020 08:00:00 PM [facility] K21.9 Gastro-esophageal reflux disease without esophagitis GASTRO-ESOPHAGEAL REFLUX DISEASE WITHOUT ESOPHAGIT Diagnosis 09/23/2020 08:00:00 PM [facility] G90.09 Other idiopathic peripheral autonomic ne uropathy OTHER IDIOPATHIC PERIPHERAL AUTONOMIC NEUROPATHY Diagnosis 09/23/2020 08:00:00 PM [facility] F41.9 Anxiety disorder, unspecified ANXIETY DISORDER, UNSPEC IFIED Diagnosis 09/23/2020 08:00:00 [facility] I67.1 Cerebral aneurysm, nonruptured CEREBRAL ANEURYSM, NONR UPTURED Diagnosis 09/23/2020 08:00:00 [facility] R42 Dizziness and giddiness DIZZINESS AND GIDDINESS Diagno sis 09/23/2020 08:00:00 PM [facility] E86.0 Dehydration DEHYDRATION Diagnosis 09/23/2020 08:00:00 [facility] R41.82 Altered mental status, unspecified ALTERED MENTA L STATUS, UNSPECIFIED Diagnosis 09/23/2020 08:00:00 [facility] N39.0 Urinary tract infection, site not specif ied URINARY TRACT INFECTION, SITE NOT SPECIFIED Diagnosis 09/23/2020 08:00:00 PM [facility] l R55 Syncope and collapse SYNCOPE AND COLLAPSE Diagnosis 09/23/2020 08:00:00 PM [facility] Y93.89 Activity, other specified ACTIVITY, OTHER SPECIFIED Di agnosis 07/24/2020 04:25:00 PM [facility] Y92.[address] the place of o ccurrence of the external cause OTH PLACES THE PLACE OF OCCURRENCE OF THE EXTER Diagnosis 06/2020 04:25:00 PM [facility] X50.0XXA OVEREXERTION FROM STRENUOUS MOVEMENT OR LOAD, INIT OVEREXERTION FROM STRENUOUS MOVEMENT OR LOAD, INIT Diagnosis 07/24/2020 04:25:00 PM [facility] M19.011 Primary osteoarthritis, right shoulder P RIMARY OSTEOARTHRITIS, RIGHT SHOULDER Diagnosis 07/24/2020 04:25:00 PM [facility] S46.311A Strain of muscle, fascia and tendon of triceps, right arm, initial encounter STRAIN OF MUSC/FASC/TEND TRICEPS, RIGHT ARM, INIT Diagnosis 07/24/2020 04:25:00 PM [facility] S46.811A Strain of other muscles, fas rylee and tendons at shoulder and upper arm level, right arm, initial encounter STRAIN OF MUSC/FASC/TEND AT SHLDR/UP ARM , RIGHT AR Diagnosis 07/24/2020 04:25:00 PM [facility] M25.511 Pain in right shoulder PAIN IN RIGHT SHOULDER Diagnosi s 07/24/2020 04:25:00 PM [facility] R04.0 Epistaxis EPISTAXIS Diagnosis 06/16/2020 02:20:00 PM [facility] I67.1 Cerebral aneurysm, nonruptured Cerebral aneurysm, nonr uptured Diagnosis 06/16/2020 08:28:57 AM [facility] Z79.84 GROUP HOME (CURRENT) USE OF ORAL HYPOGLYC EMIC DRUGS TAX CONSULTANT (CURRENT) USE OF ORAL HYPOGLYCEMIC DRUGS Diagnosis 05/21/2020 11:23:00 AM [facility] I25.2 Old myocardial infarction OLD MYOCARDIAL INFARCTION Di agnosis 05/21/2020 11:23:00 AM [facility] D64.9 Anemia, unspecified ANEMIA, UNSPECIFIED Diagnosis 0 05/21/2020 11:23:00 AM [facility] E87.5 Hyperkalemia HYPERKALEMIA Diagnosis 05/21/2020 11:23:00 A [facility] N18.30 CHRONIC KIDNEY DISEASE, STAGE 3 UNSPECIF IED CHRONIC KIDNEY DISEASE, STAGE 3 UNSPECIFIED Diagnosis 05/21/2020 11:23:00 AM [facility] I50.31 Acute diastolic (congestive) heart failu re ACUTE DIASTOLIC (CONGESTIVE) HEART FAILURE Diagnosis 05/21/2020 11:23:00 AM [facility] I13.0 Hypertensive heart and chron ic kidney disease with heart failure and stage 1 through stage 4 chronic kidney disease, or unspecified chronic kidney disease HYP HRT CHR KDNY DIS W HRT FAIL AND STG 1-4/UNSP Diagnosis 05/21/2020 11:23:00 AM [facility] J96.01 Acute respiratory failure with hypoxia A CUTE RESPIRATORY FAILURE WITH HYPOXIA Diagnosis 05/21/2020 11:23:00 AM [facility] R06.00 Dyspnea, unspecified DYSPNEA, UNSPECIFIED Diagnosis 05/21/2020 11:23:00 AM [facility] I20.9 Angina pectoris, unspecified Angina pectoris, unspecif ied Diagnosis 05/14/2020 07:00:47 PM [facility] I21.4 Non-ST elevation (NSTEMI) myocardial inf arction Non-ST elevation (NSTEMI) myocardial inf Diagnosis 05/14/2020 07:00:47 PM [facility] E83.42 Hypomagnesemia HYPOMAGNESEMIA Diagnosis 04/23/2020 02:12: 00 PM [facility] R11.2 Nausea with vomiting, unspecified NAUSEA WITH VO MITING, UNSPECIFIED Diagnosis 04/23/2020 02:12:00 PM [facility] Z20.828 Contact with and (suspected) exposure to other viral communicable diseases CONTACT W AND EXPOSURE TO OTH VIRAL COMMUNICABLE D Diagnosis 03/22/2020 11:28:00 PM [facility] I48.91 Unspecified atrial fibrillation UNSPECIFIED ATRI AL FIBRILLATION Diagnosis 03/22/2020 11:28:00 PM [facility] R11.10 Vomiting, unspecified VOMITING, UNSPECIFIED Diagnosis 03/22/2020 11:28:00 PM [facility] W01.0XXA Fall on same level from slip ping, tripping and stumbling without subsequent striking against object, initial encounter FALL SAME LEV FROM SLIP/TRIP W/O STRIKE AGAINST OB Diagnosis 03/13/2020 09:53:00 PM [facility] M25.512 Pain in left shoulder PAIN IN LEFT SHOULDER Diagnosis 03/13/2020 09:53:00 PM [facility] S22.42XA Multiple fractures of ribs, left side, initial encounter for closed fracture MULTIPLE FRACTURES OF RIBS, LEFT SIDE, INIT FOR CL Diagnosis 03/13/2020 09:53:00 PM [facility] S29.9XXA Unspecified injury of thorax, initial en counter UNSPECIFIED INJURY OF THORAX, INITIAL ENCOUNTER Diagnosis 03/13/2020 09:53:00 PM [facility] Y93.01 Activity, walking, marching and hiking A CTIVITY, WALKING, MARCHING AND HIKING Diagnosis 03/11/2020 12:55:00 PM [facility] l Y92.[address] in unspeci fied non-institutional (private) residence as the place of occurrence of the external cause UNSP PLACE IN RUST NON-INSTITUT (PRIVATE) RESIDENC Diagnosis 03/11/2020 12:55:00 PM [facility] G89.11 Acute pain due to trauma ACUTE PAIN DUE TO TRAUMA Diag nosis 03/11/2020 12:55:00 PM [facility] S70.02XA Contusion of left hip, initial encounter CONTUSION OF LEFT HIP, INITIAL ENCOUNTER Diagnosis 03/11/2020 12:55:00 PM [facility] S20.212A Contusion of left front wall of thorax, initial encounter CONTUSION OF LEFT FRONT WALL OF THORAX, INITIAL EN Diagnosis 03/11/2020 12:55:00 PM [facility] S46.012A Strain of muscle(s) and tend on(s) of the rotator cuff of left shoulder, initial encounter STRAIN OF MUSC/TEND THE ROTATOR CUFF OF LEFT SHOUL Diagnosis 03/11/2020 12:55:00 PM [facility] S46.812A Strain of other muscles, fas rylee and tendons at shoulder and upper arm level, left arm, initial encounter STRAIN OF MUSC/FASC/TEND AT SHLDR/UP ARM , LEFT ARM Diagnosis 03/11/2020 12:55:00 PM [facility] l S49.92XA Unspecified injury of left shoulder and upper arm, initial encounter UNSP INJURY OF LEFT SHOULDER AND UPPER ARM, INIT ENCNTR Diagnosis 03/11/2020 12:55:00 PM [facility] A04.72 [id number] C. difficile diarrhea Problem 11/01/2020 12:00:00 AM EDT eCW1 ([facility]) R91.1 [id number] Pulmonary nodule Problem 09/29/2020 12:00:00 AM EDT eCW1 ([facility]) E11.42 Neuropathy due to type 2 diabetes [facility] Neuropathy due to type 2 diabetes mellitus Problem 09/09/2020 12:00:00 AM EDT MED[facility] ([facility] L97.521 [id number] Skin ulcer of toe of left foot, limited to breakdown of skin Problem 09/01/2020 12:00:00 AM EDT eC ([facility]) I48.0 Paroxysmal atrial fibrillation Paroxysmal atrial fibri llation Problem 08/30/2020 12:00:00 AM EDT MEDENT ([facility]) I65.22 [id number] Stenosis of left internal carotid artery Problem 2020 12:00:00 AM EST [facility] ([facility]) I50.9 [id number] Acute congestive heart failure, unspecified heart failure type Problem 05/24/2020 12:00:00 AM EST [facility] ([facility]) K21.9 GERD (gastroesophageal reflux disease) G ERD (gastroesophageal reflux disease) [id number] 05/14/2020 12:00:00 AM [facility] I25.10 Coronary artery disease Coronary artery disease 108841 05/14/2020 12:00:00 AM [facility] F41.9 Anxiety Anxiety [id number] 05/14/2020 12:00:00 AM [facility] E78.00 Hypercholesterolemia Hypercholesterolemia 78459661 05/14/2020 12:00:00 AM [facility] I10 Hypertension Hypertension [id number] 05/14/2020 12:00:00 A M [facility] E11.9 Type 2 diabetes mellitus Type 2 diabetes mellitus 6457 200005/14/2020 12:00:00 AM [facility] E11.40 Diabetic neuropathy Diabetic neuropathy [id number] 0 05/14/2020 12:00:00 AM [facility] I50.30 Diastolic heart failure Diastolic heart failure 049244 05/14/2020 12:00:00 AM [facility] N18.9 CKD (chronic kidney disease) CKD (chronic kidney disea se) 78913916 05/14/2020 12:00:00 AM [facility] W19.XXXA Fall Fall [id number] 05/14/2020 12:00:00 AM ES T [facility] Z83.79 Family history of upper GI bleeding Family histo ry of upper GI bleeding [id number] 05/14/2020 12:00:00 AM [facility] R29.6 Falls frequently Falls frequently [id number] 05/14/2020 12 :00:00 AM [facility] Z95.5 History of coronary artery stent placeme nt History of coronary artery stent placement [id number] 05/14/2020 12:00:00 AM [facility] R29.6 [id number] Frequent falls Problem 05/11/2020 12:00:00 A M EST eCW1 ([facility]) I73.9 Peripheral vascular disease Peripheral vascular diseas e Problem 03/01/2020 12:00:00 AM EST MED[facility] ([facility]) I65.23 Carotid artery occlusion Carotid artery occlusion Prob anita 03/01/2020 12:00:00 AM EST [facility] ([facility]) E83.42 [id number] Hypomagnesemia Problem 01/22/2020 12:00:00 A M EDT eCW1 ([facility]) Pressure ulcer of other site, stage 4 Pressure u lcer of other site, stage 4 Problem 07/17/2019 12:00:00 AM EDT - 01/15/2020 12:00:00 AM ED T MED[facility] ([facility] [id number] Acute osteomyelitis of ankle and/or foot Acute osteomyelitis of ankle and/or foot Problem 07/17/2019 12:00:00 AM EDT - 01/15/2020 12:00:00 AM EDT [facility] ([facility] [id number] Convalescence after surgery Convalescence after surger y Problem 07/17/2019 12:00:00 AM EDT - 01/15/2020 12:00:00 AM EDT [facility] ([facility] Surgeries/Procedures Procedure Description Date Indications Data Source(s) Imm: Flublok Quadrivalent 18 years & older 0.5mL IM Influenz a 01/13/2021 12:00:00 AM EDT eCW1 ([facility]) OFFICE OUTPATIENT VISIT 10 MINUTES 01/07/2021 12:00:00 AM EDT [facility] ([facility] PARING/CUTTING BENIGN HYPERKERATOTIC LESION 2-4 2020 12:00:00 AM EDT [facility] ([facility] DEBRIDEMENT NAIL ANY METHOD 12/24/2020 12:00:00 AM EDT [facility] ([facility] DEBRIDEMENT OPEN WOUND 20 SQ CM/< 12/24/2020 12:00:00 AM EDT [facility] ([facility] OFFICE OUTPATIENT VISIT 15 MINUTES 12/08/2020 12:00:00 AM EDT MED[facility] ([facility]) PARING/CUTTING BENIGN HYPERKERATOTIC LESION 1 10/21/19 12:00:00 AM EDT [facility] ([facility] DEBRIDEMENT NAIL ANY METHOD 10/20/2020 12:00:00 AM EDT [facility] ([facility] DEBRIDEMENT SUBCUTANEOUS TISSUE 20 SQ CM/< 09/09/2020 12:00:00 AM EDT [facility] ([facility] Chronic Care MGMT 20 Mins Clinical Staff Time Per Calendar [facility] [place] 09/09/2020 12:00:00 AM EDT [facility] ([facility]) DEBRIDEMENT SUBCUTANEOUS TISSUE 20 SQ CM/< 09/02/2020 12:00:00 AM EDT [facility] ([facility] DEBRIDEMENT NAIL ANY METHOD 09/02/2020 12:00:00 AM EDT [facility] ([facility] OFFICE OUTPATIENT VISIT 15 MINUTES 09/02/2020 12:00:00 AM EDT [facility] ([facility] ECG ROUTINE ECG W/LEAST 12 LDS W/I&R 08/30/2020 12:00: 00 AM EDT MED[facility] ([facility]) OFFICE OUTPATIENT VISIT 25 MINUTES 08/30/2020 12:00:00 AM EDT [facility] ([facility]) Chronic Care Management Services Ea Addl 20 Min 2020 12:00:00 AM EST [facility] ([facility]) Chronic Care MGMT 20 Mins Clinical Staff Time Per Calendar [facility] [place] 06/29/2020 12:00:00 AM EST [facility] ([facility]) ECG ROUTINE ECG W/LEAST 12 LDS W/I&R 05/31/2020 12:00: 00 AM EST [facility] ([facility]) OFFICE OUTPATIENT VISIT 25 MINUTES 05/31/2020 12:00:00 AM EST [facility] ([facility]) XTRNL PT ACTIVATED ECG RECORD MONITOR 30 DAYS 05/27/19 12:00:00 AM EST [facility] ([facility]) XTRNL PT ACTIVTD ECG DWNLD 30 DAYS PHYS R&I 05/27/2020 12:00:00 AM EST [facility] ([facility]) ECHO TTHRC R-T 2D W/WOM-MODE COMPL SPEC&COLR DOP <td>E CHOCARDIOGRAM TRANSTHORACIC</td><td>Pending Discharge</td><td>05/16/2020 10:14 AM EST</td><td></td><td> </td> 05/16/2020 03:14:48 PM EST [facility] TROPONIN QUANTITATIVE <td>TROPONIN I</td><td>Routi ne</td><td>05/16/2020 9:36 AM EST</td><td></td><td> </td> 05/16/2020 02:36:00 PM EST [facility] THROMBOPLASTIN TIME PARTIAL PLASMA/WHOLE BLOOD <td>APTT</td><td>STAT</td><td>05/16/2020 9:36 AM EST</td><td></td><td> </td> 05/16/2020 02:36:00 PM EST [facility] THROMBOPLASTIN TIME PARTIAL PLASMA/WHOLE BLOOD <td>APTT</td><td>STAT</td><td>05/16/2020 3:24 AM EST</td><td></td><td> </td> 05/16/2020 08:24:00 AM EST [facility] BLOOD COUNT COMPLETE AUTOMATED <td>CBC</td><td>Timed</ td><td>05/16/2020 3:24 AM EST</td><td></td><td> </td> 05/16/2020 08:24:00 AM EST [facility] BASIC METABOLIC PANEL CALCIUM TOTAL <td>BASIC METABOLI C PANEL</td><td>Timed</td><td>05/16/2020 3:24 AM EST</td><td></td><td> </td> 05/16/2020 08:24:00 AM EST [facility] THROMBOPLASTIN TIME PARTIAL PLASMA/WHOLE BLOOD <td>APTT</td><td>STAT</td><td>05/15/2020 8:08 PM EST</td><td></td><td> </td> 05/16/2020 01:08:00 AM EST [facility] GLUC BLD GLUC MNTR DEV CLEARED FDA SPEC HOME USE <td>P OCT GLUCOSE</td><td>Routine</td><td>05/15/2020 6:25 PM EST</td><td></td><td> </td> 05/15/2020 11:25:00 PM EST [facility] GLUC BLD GLUC MNTR DEV CLEARED FDA SPEC HOME USE <td>P OCT GLUCOSE</td><td>Routine</td><td>05/15/2020 1:46 PM EST</td><td></td><td> </td> 05/15/2020 06:46:00 PM EST [facility] THROMBOPLASTIN TIME PARTIAL PLASMA/WHOLE BLOOD <td>APTT</td><td>STAT</td><td>05/15/2020 10:39 AM EST</td><td></td><td> </td> 05/15/2020 03:39:00 PM EST [facility] GLUC BLD GLUC MNTR DEV CLEARED FDA SPEC HOME USE <td>P OCT GLUCOSE</td><td>Routine</td><td>05/15/2020 9:31 AM EST</td><td></td><td> </td> 05/15/2020 02:31:00 PM EST [facility] THROMBOPLASTIN TIME PARTIAL PLASMA/WHOLE BLOOD <td>APTT</td><td>STAT</td><td>05/15/2020 1:52 AM EST</td><td></td><td> </td> 05/15/2020 06:52:00 AM EST [facility] BLOOD COUNT COMPLETE AUTOMATED <td>CBC</td><td>Timed</ td><td>05/15/2020 1:52 AM EST</td><td></td><td> </td> 05/15/2020 06:52:00 AM EST [facility] BASIC METABOLIC PANEL CALCIUM TOTAL <td>BASIC METABOLI C PANEL</td><td>Timed</td><td>05/15/2020 1:52 AM EST</td><td></td><td> </td> 05/15/2020 06:52:00 AM EST [facility] XR CHEST PORTABLE <td>XR CHEST PORTABLE</td><t d>Routine</td><td>05/14/2020 9:22 PM EST</td><td></td><td> </td> 05/15/2020 02:22:30 AM EST [facility] NT PRO BNP <td>NT PRO BNP</td><td>Routi ne</td><td>05/14/2020 8:13 PM EST</td><td></td><td> </td> 05/15/2020 01:13:00 AM EST [facility] TROPONIN QUANTITATIVE <td>TROPONIN I</td><td>Timed </td><td>05/14/2020 8:13 PM EST</td><td></td><td> </td> 05/15/2020 01:13:00 AM EST [facility] BLOOD TYPING ABO <td>TYPE AND SCREEN</td><td> Routine</td><td>05/14/2020 8:13 PM EST</td><td></td><td> </td> 05/15/2020 01:13:00 AM EST [facility] THYROID STIMULATING HORMONE TSH <td>TSH</td><td>Routin e</td><td>05/14/2020 8:13 PM EST</td><td></td><td> </td> 05/15/2020 01:13:00 AM EST [facility] MAGNESIUM <td>MAGNESIUM</td><td>Routin e</td><td>05/14/2020 8:13 PM EST</td><td></td><td> </td> 05/15/2020 01:13:00 AM EST [facility] LIPID PANEL <td>LIPID PANEL</td><td>Rout ine</td><td>05/14/2020 8:13 PM EST</td><td></td><td> </td> 05/15/2020 01:13:00 AM EST [facility] COMPREHENSIVE METABOLIC PANEL <td>COMPREHENSIVE METABO LIC PANEL</td><td>STAT</td><td>05/14/2020 8:13 PM EST</td><td></td><td> </td> 05/15/2020 01:13:00 AM EST [facility] THROMBOPLASTIN TIME PARTIAL PLASMA/WHOLE BLOOD <td>APTT</td><td>Routine</td><td>05/14/2020 7:21 PM EST</td><td></td><td> </td> 05/15/2020 12:21:00 AM EST [facility] BLOOD COUNT COMPLETE AUTOMATED <td>CBC</td><td>Routine </td><td>05/14/2020 7:21 PM EST</td><td></td><td> </td> 05/15/2020 12:21:00 AM EST [facility] ECG ROUTINE ECG W/LEAST 12 LDS W/I&R 05/11/2020 12:00: 00 AM EST [facility] ([facility]) OFFICE OUTPATIENT VISIT 15 MINUTES 05/11/2020 12:00:00 AM EST [facility] ([facility]) DEBRIDEMENT NAIL ANY METHOD 6/> 03/09/2020 12:00:00 AM EST [facility] ([facility] ECG ROUTINE ECG W/LEAST 12 LDS W/I&R 03/01/2020 12:00: 00 AM EST [facility] ([facility]) DEBRIDEMENT NAIL ANY METHOD > 01/01/2020 12:00:00 AM EDT [facility] ([facility] Results ID Date Data Source [id number] 11/24/2020 11:15:00 AM EDT [facility] ([facility]) Name Value Range Interpretation Code Description Data Maria Esther rce(s) Supporting Document(s) Thyroid Stimulating Hormone 3.630 uIU/ML 0.358-3.740 [facility] ([facility]) Free T4 0.88 ng/dL 0.76-1.46 [facility] ([facility]) ID Date Data Source [id number] 11/24/2020 11:15:00 AM EDT [facility] ([facility]) Name Value Range Interpretation Code Description Data Maria Esther rce(s) Supporting Document(s) Cholesterol Level 130 mg/dL [facility] ([facility]) Triglycerides Level 394 mg/dL [facility] ([facility]) HDL Cholesterol 38 mg/dL [facility] ([facility]) Non-HDL-C 92 mg/dL [facility] LDL Cholesterol 13 mg/dL [facility] ([facility]) Cholesterol Risk Ratio 3.421 [facility] ([facility]iology [facility]) ID Date Data Source [id number] 11/24/2020 11:15:00 AM EDT MED[facility] ([facility]) Name Value Range Interpretation Code Description Data Maria Esther rce(s) Supporting Document(s) Blood Urea Nitrogen 27 mg/dL 7-18 [facility] ([facility]) Glucose, Fasting 479 mg/dL 70-100 Above upper panic limits MED[facility] ([facility]iology [facility]) Glomerular Filtration Rate 37.1 MED ENT ([facility]) <content>Units are mL/min/1.73 m2</content>
<content></content>
<content>Chronic Kidney Disease Staging per NKF:</content>
<content></content>
<content>Stage I & II GFR >=60 Normal to Mildly Decreased</content>
<content>Stage III GFR 30- 59 Moderately Decreased</content>
<content>Stage IV GFR 15-29 Severely Decreased</content>
<content>Stage V GFR <15 Very Little GFR Left</content>
<content>ESRD GFR <15 on HEALTH FACILITIES SURVEYOR</content>
<content></content> Creatinine For GFR 1.47 mg/dL 0.55-1.30 [facility] ([facility]) Sodium Level 131 meq/L 136-145 [facility] ([facility]) Potassium Serum 4.5 meq/L 3.5-5.1 [facility] ([facility]) Carbon Dioxide Level 31 meq/L 21-32 MED[facility] ([facility]) Chloride Level 92 meq/L 98-107 MED[facility] ([facility]) Calcium Level 9.3 mg/dL 8.8-10.2 [facility] ([facility]) Anion Gap 8 meq/L 8-16 [facility] ([facility] Ast/Sgot 26 U/L 7-37 [facility] ([facility]) Alkaline Phosphatase 100 U/L 45-117 [facility] ([facility]) Alt/SGPT 37 U/L 12-78 [facility] ([facility]) Bilirubin,Total 0.6 mg/dL 0.2-1.0 [facility] ([facility]) Total Protein 7.2 GM/DL 6.4-8.2 [facility] ([facility]) Albumin/Globulin Ratio 1.1 1.2-2.2 [facility] ([facility]) Albumin 3.7 GM/DL 3.2-5.2 [facility] ([facility]) ID Date Data Source [id number] 11/24/2020 11:15:00 AM EDT [facility] ([facility]) Name Value Range Interpretation Code Description Data Maria Esther rce(s) Supporting Document(s) Hemoglobin A1c 12.8 % [facility] ([facility]) <content>REFERENCE RANGES:</content><br/ ><content></content>
<content><=5.6% NORMAL</content>
<content>5.7-6.4% SUGGESTS IMPAIRED GLUCOSE METABOLISM/PREDIABETIC</content>
<content>>= 6.5% ABNORMAL</content>
<content></content> Estimated Average Glucose 321 mg/dL 60-110 [facility] ([facility]) ID Date Data Source [id number] 11/24/2020 11:15:00 AM EDT [facility] ([facility]) Name Value Range Interpretation Code Description Data Maria Esther rce(s) Supporting Document(s) White Blood Count 5.7 10 4.0-10.0 [facility] ([facility]) Red Blood Count 3.85 10 4.00-5.40 [facility] ([facility]) Hemoglobin 10.9 g/dL 12.0-15.5 [facility] ([facility]) Hematocrit 34.4 % 36.0-47.0 [facility] ([facility]) Mean Corpuscular Hemoglobin 28.3 pg 27.0-33.0 [facility] ([facility]) Mean Corpuscular Volume 89.4 fl 80.0-96.0 M EDENT ([facility]) Red Cell Distribution Width 13.4 % 11.5-14.5 [facility] ([facility]) Mean Corpuscular HGB Conc 31.7 g/dL 32.0-36.5 [facility] ([facility]) Lymph % 18.5 % 24.0-44.0 [facility] Platelet Count, Automated 196 10 150-450 MED[facility] ([facility]) Neutrophils % 69.0 % 36.0-66.0 [facility] ([facility]) [place] % 9.6 % 2.0-8.0 MED[facility] ([facility]iology A [...] 1.5-8.5 [facility] ([facility] [place] # 0.6 10 0.0-0.8 [facility] Lymph # 1.1 10 1.5-5.0 [facility] Eos # 0.1 10 0.0-0.5 [facility] Baso # 0.0 10 0.0-0.2 [facility] ID Date Data Source LIPID PANEL (CARDIAC RISK) 11/24/2020 12:00:00 AM EDT eCW1 ( [facility]) Name Value Range Interpretation Code Description Data Maria Esther rce(s) Supporting Document(s) Triglyceride [Mass/volume] in Serum or Plasma by calculation 394 <150 TRIGLYCERIDES LEVEL eCW1 ([facility]) Cholesterol [Moles/volume] in Serum or Plasma 130 <200 CHOLESTEROL LEVEL eCW1 ([facility]) Cholesterol in LDL [Mass/volume] in Serum or Plasma by calculation 13 <100 LDL CHOLESTEROL eCW1 ([facility]) 92 NON-HDL-C eCW1 ([facility]) Cholesterol in HDL [Moles/volume] in Serum or Plasma 38 >40 HDL CHOLESTEROL eCW1 ([facility]) 3.421 <5 CHOLESTEROL RISK RATIO eCW ([facility]) ID Date Data Source [id number] 11/24/2020 12:00:00 AM EDT eCW1 ([facility]) Name Value Range Interpretation Code Description Data Maria Esther rce(s) Supporting Document(s) Hemoglobin A1c/Hemoglobin.total in Blood 12.8 HEMOGLOBIN A1c eCW1 ([facility]) ID Date Data Source FREE T4 & TSH PANEL 11/24/2020 12:00:00 AM EDT eCW1 ([facility]) Name Value Range Interpretation Code Description Data Maria Esther rce(s) Supporting Document(s) 0.88 0.76-1.46 FREE T4 eCW1 ([facility]) 3.630 0.358-3.740 THYROID STIMULATING HORM ONE eCW1 ([facility]) ID Date Data Source Comprehensive Metabolic Profile (CMP) 11/24/2020 12:00:00 AM EDT eCW1 ([facility]) Name Value Range Interpretation Code Description Data Maria Esther rce(s) Supporting Document(s) 27 7-18 BLOOD UREA NITROGEN eCW1 ([facility]) 479 70-100 GLUCOSE, FASTING eCW1 ([facility]) 1.47 0.55-1.30 CREATININE FOR GFR eCW1 ([facility]) 37.1 >39 GLOMERULAR FILTRATION RATE eCW 1 ([facility]) 131 136-145 SODIUM LEVEL eCW1 ([facility]) 4.5 3.5-5.1 POTASSIUM SERUM eCW1 ([facility]) 9.3 8.8-10.2 CALCIUM LEVEL eCW1 ([facility]) 31 21-32 CARBON DIOXIDE LEVEL eCW1 ([facility]) 92 98-107 CHLORIDE LEVEL eCW1 ([facility]) 26 7-37 AST/SGOT eCW1 ([facility]) 37 12-78 ALT/SGPT eCW1 ([facility]) 100 45-117 ALKALINE PHOSPHATASE eCW1 ([facility]) 0.6 0.2-1.0 BILIRUBIN,TOTAL eCW1 ([facility]placed [facility]) 3.7 3.2-5.2 ALBUMIN eCW1 ([facility]) 7.2 6.4-8.2 TOTAL PROTEIN eCW1 ([facility]) 1.1 1.2-2.2 ALBUMIN/GLOBULIN RATIO eCW1 ([facility]) ID Date Data Source CBC with Differential 11/24/2020 12:00:00 AM EDT eCW1 ([facility]) Name Value Range Interpretation Code Description Data Maria Esther rce(s) Supporting Document(s) 3.85 4.00-5.40 RED BLOOD COUNT eCW1 ([facility]) 10.9 12.0-15.5 HEMOGLOBIN eCW1 ([facility]) 5.7 4.0-10.0 WHITE BLOOD COUNT eCW1 ([facility]) 34.4 36.0-47.0 HEMATOCRIT eCW1 ([facility]) 28.3 27.0-33.0 MEAN CORPUSCULAR HEMOGLOB IN eCW1 ([facility]) 89.4 80.0-96.0 MEAN CORPUSCULAR VOLUME e CW1 ([facility]) 31.7 32.0-36.5 MEAN CORPUSCULAR HGB CONC eCW1 ([facility]) 196 150-450 PLATELET COUNT, AUTOMATED eCW1 ([facility]) 13.4 11.5-14.5 RED CELL DISTRIBUTION WID TH eCW1 ([facility]) 18.5 24.0-44.0 LYMPH % eCW1 ([facility]) 69.0 36.0-66.0 NEUTROPHILS % eCW1 ([facility]) 4.0 1.5-8.5 NEUTROPHILS # eCW1 ([facility]) 1.7 0.0-3.0 EOS % eCW1 ([facility]) 9.6 2.0-8.0 MONO % eCW1 ([facility]) 0.7 0.0-1.0 BASO % eCW1 ([facility]) 0.1 0.0-0.5 EOS # eCW1 ([facility]) 0.6 0.0-0.8 MONO # eCW1 ([facility]) 1.1 1.5-5.0 LYMPH # eCW1 ([facility]) 0.0 0.0-0.2 [facility] # eCW1 ([facility]) ID Date Data Source [id number] 10/06/2020 08:21:00 PM EDT [facility] Patient: DULCE RODAS Report - [facility].VisitID: [id number] [place] [address] [phone], FRegistration Date/Time: 10/06/2020 14:32 Weight:56.6 kg (S). [...] Name Value Range Interpretation Code Description Data [facility](s) Supporting Document(s) ID Date Data Source [id number] 10/06/2020 05:29:00 [id number] Name Value Range Interpretation Code Description Data [facility](s) Supporting Document(s) Campylobacter Not Detected Detected Not [facility] Clostridium difficile toxin AB DETECTED Detected [facility] This device is not intented to monitor o r guide treatmentfor C. difficile infection.Due to the high asymptomatic carriage rates,especiallyin young children,the clinical relevance of the detectionof toxigenic C. difficile from stool should be consideredin the context of other clinical findings,patient age,and risk factors including hospitalization and antibioticexposure. Plesiomonas shigelloides Not Detected Detected Not [facility] Salmonella Not Detected Detected Not [facility] ospital Vibrio Not Detected Detected Not [facility] spital Vibrio cholerae Not Detected Detected Not [facility] Yersinia enterocolitica Not Detected Detected Not [facility] Enteroaggregative E. coli Not Detected Detected Not [facility] Enteropathogenic E. coli Not Detected Detected Not [facility] Enterotoxigenic E. coli Not Detected Detected Not [facility] Shiga-like toxin-prod E. coli Not Detected Detected Not [facility] Shigella/Enteroinvasive E coli Not Detected Detected Not [facility] Cryptosporidium Not Detected Detected Not [facility] Cyclospora cayetanensis Not Detected Detected Not [facility] Entamoeba histolytica Not Detected Detected Not [facility] Giardia Lamb[place] Not Detected Detected Not [facility] Adenovirus F 40/41 Not Detected Detected Not [facility] Astrovirus Not Detected Detected Not [facility] Norovirus GI/GII Not Detected Detected [facility] Rotavirus A Not Detected Detected [facility] Sapovirus Not Detected Detected Not [facility] The FilmArray GI Panel is indicated [...] results have been determined by using the [employer] Film[employer] system.FilmArray is an automated in vitro diagnostic system thatutilizes nested multiplex Polymerase Chain Reaction (PCR)and high-resolution melting analysis to detect and identifymultiple nucleic acid targets from clinical specimens. ID Date Data Source [id number] REFLEX 10/06/2020 04:22:00 PM EDT [facility] TSYSORDER [id number] Name Value Range Interpretation Code Description Data Maria Esther rce(s) Supporting Document(s) URINE RBC 0-2 /hpf 0-3 [facility] URINE WBC 5-10 /hpf 0-5 H [facility] URINE EPITHELIAL CELLS 2+ /hpf 0 [facility] BACTERIA 2+ NONE SEEN H [facility] ID Date Data Source [id number] REFLEX 10/06/2020 04:17:00 PM EDT [facility] ital TSYSORDER [id number] Name Value Range Interpretation Code Description Data Maria Esther rce(s) Supporting Document(s) URINE COLOR. YELLOW [facility] URINE APPEARANCE TURBID [facility] GLUCOSE (UA) NEGATIVE mg/dL NEGATIVE [facility] URINE BILIRUBIN NEGATIVE NEGATIVE [facility] URINE KETONE NEGATIVE mg/dL NEGATIVE [facility] SPECIFIC GRAVITY,URINE 1.010 1.005-1.030 [facility] URINE BLOOD NEGATIVE NEGATIVE [facility] PH,URINE 5.0 5.0-9.0 [facility] URINE PROTEIN TRACE mg/dL NEGATIVE [facility] URINE UROBILINOGEN 0.2 mg/dL 0-1 [facility] UR[facility] NITRATE NEGATIVE NEGATIVE [facility] URINE LEUKOCYTE ESTERASE TRACE NEGATIVE [facility] ID Date Data Source [id number] 10/10/2020 07:26:00 AM EDT [facility] Name Value Range Interpretation Code Description Data Maria Esther rce(s) Supporting Document(s) [facility] ID Date Data Source [id number] 10/06/2020 04:15:00 PM EDT [facility] TSYSORDER [id number] Name Value Range Interpretation Code Description Data Maria Esther rce(s) Supporting Document(s) TSH 3.203 uIU/mL 0.360-3.740 [facility] ID Date Data Source [id number] 10/06/2020 04:10:00 PM EDT [facility] l TSYSORDER [id number] Name Value Range Interpretation Code Description Data Maria Esther rce(s) Supporting Document(s) MAGNESIUM 1.3 mg/dL 1.8-2.[address] [facility] ID Date Data Source [id number] 10/06/2020 04:10:00 PM EDT [facility] l TSYSORDER [id number] Name Value Range Interpretation Code Description Data Maria Esther rce(s) Supporting Document(s) LIPASE 35 U/L 73-393 L [facility] ID Date Data Source [id number] 10/06/2020 04:10:00 PM EDT [facility] l TSYSORDER [id number] Name Value Range Interpretation Code Description Data Maria Esther rce(s) Supporting Document(s) GLUCOSE 116 mg/dL 74-106 H [facility] BLOOD UREA NITROGEN 11 mg/dL 7-18 [facility] ital CREATININE 1.01 mg/dL 0.6-1.0 H [facility] SODIUM 142 mmol/L 136-145 [facility] POTASSIUM 3.1 mmol/L 3.5-5.1 L [facility] CHLORIDE 103 mmol/L 98-107 [facility] CO2 26 mmol/L 21-32 [facility] CALCIUM 9.0 mg/dL 8.5-10.1 [facility] ANION GAP 13.0 mmol/L 5-12 H [facility] GLOMERULAR FILTRATION RATE 54 mL/min [facility] GFR IS CALCULATED IN mL/min/1.73m2 MALINDA L FUNCTION: >90MILDLY DECREASED: 60-89MILDY TO MODERATELY DECREASED: 45-59 MODERATELY TO SEVERELY DECREASED: 30-44SEVERELY DECREASED: 15-29RENAL FAILURE: <15 AST 21 U/L 15-37 [facility] ALT 28 U/L 12-78 [facility] ALKALINE PHOSPHATASE 85 U/L 46-116 [facility] TOTAL BILIRUBIN 0.6 mg/dL 0.2-1.0 [facility] TOTAL PROTEIN 7.1 g/dl 6.4-8.2 [facility] ALBUMIN 3.1 gm/dL 3.4-5.0 L [facility] ID Date Data Source [id number] 10/06/2020 03:49:00 PM EDT [facility] TSYSORDER [id number] Name Value Range Interpretation Code Description Data Maria Esther rce(s) Supporting Document(s) WHITE BLOOD COUNT 10.3 K/mm3 4.0-10.0 H [facility] RED BLOOD COUNT 3.74 M/mm3 4.00-5.50 L [facility] HEMOGLOBIN 10.6 gm/dL 12.0-16.[address] [facility] HEMATOCRIT 32.5 % 36.0-48.8 L [facility] MEAN CELL VOLUME 86.9 fl 80-96 [facility] l MEAN CORPUSCULAR HEMOGLOBIN 28.3 pg 27.0-31.0 [facility] MEAN CORPUSCULAR HGB CONC 32.6 g/dl 32.0-36.0 [facility] RED CELL DISTRIBUTION WIDTH 12.5 % 10.0-14.5 [facility] PLATELET COUNT 309 K/mm3 172-450 [facility] MEAN PLATELET VOLUME 9.8 fl 9.0-13.0 [facility] pital GRAN % 80.5 % 50-80.0 H [facility] IG% 0.4 % 0.0-0.2 H [facility] LYMPH % 12.3 % 25.0-50.0 L [facility] MONO % 5.8 % 2.0-10.0 [facility] EOS % 0.8 % 0-5.0 [facility] BASO % 0.2 % 0.0-2.0 [facility] GRAN # 8.3 K/mm3 2.0-8.00 H [facility] IG# 0.0 K/mm3 0.0-0.2 [facility] LYMPH # 1.3 K/mm3 1.0-5.0 [facility] MONO # 0.6 K/mm3 0.10-1.20 [facility] EOS # 0.1 K/mm3 0.0-0.5 [facility] BASO # 0.0 K/mm3 0.0-0.2 [facility] ID Date Data Source [id number] 10/04/2020 04:31:00 PM EDT [facility] Patient: DULCE RODAS Report - Physicians[facility] Hospital.VisitID: [id number] [place] [address] [phone], FRegistration Date/Time: 10/04/2020 12:28 Weight:56.6 kg (S). [...] Name Value Range Interpretation Code Description Data [facility](s) Supporting Document(s) ID Date Data Source [id number] 10/04/2020 01:57:00 PM EDT [facility] l TSYSORDER [id number] Name Value Range Interpretation Code Description Data [facility] Document(s) GLUCOSE 191 mg/dL 74-106 H [facility] BLOOD UREA NITROGEN 13 mg/dL 7-18 [facility] ital CREATININE 1.04 mg/dL 0.6-1.0 H [facility] SODIUM 138 mmol/L 136-145 [facility] POTASSIUM 3.0 mmol/L 3.5-5.1 L [facility] CHLORIDE 100 mmol/L 98-107 [facility] CO2 25 mmol/L 21-32 [facility] CALCIUM 8.7 mg/dL 8.5-10.1 [facility] ANION GAP 13.0 mmol/L 5-12 H [facility] GLOMERULAR FILTRATION RATE 52 mL/min [facility] GFR IS CALCULATED IN mL/min/1.73m2 MALINDA L FUNCTION: >90MILDLY DECREASED: 60-89MILDY TO MODERATELY DECREASED: 45-59 MODERATELY TO SEVERELY DECREASED: 30-44SEVERELY DECREASED: 15-29RENAL FAILURE: <15 AST 21 U/L 15-37 [facility] ALT 32 U/L 12-78 [facility] ALKALINE PHOSPHATASE 90 U/L 46-116 [facility] pital TOTAL BILIRUBIN 0.5 mg/dL 0.2-1.0 [facility] TOTAL PROTEIN 6.8 g/dl 6.4-8.2 [facility] ALBUMIN 3.2 gm/dL 3.4-5.0 L [facility] ID Date Data Source [id number] 10/04/2020 01:27:00 PM EDT [facility] TSYSORDER [id number] Name Value Range Interpretation Code Description Data [facility] Supporting Document(s) WHITE BLOOD COUNT 10.0 K/mm3 4.0-10.0 [facility] RED BLOOD COUNT 3.80 M/mm3 4.00-5.50 L [facility] HEMOGLOBIN 10.8 gm/dL 12.0-16.0 L [facility] HEMATOCRIT 33.1 % 36.0-48.8 L [facility] MEAN CELL VOLUME 87.1 fl 80-96 [facility] MEAN CORPUSCULAR HEMOGLOBIN 28.4 pg 27.0-31.0 [facility] MEAN CORPUSCULAR HGB CONC 32.6 g/dl 32.0-36.0 [facility] RED CELL DISTRIBUTION WIDTH 12.6 % 10.0-14.5 [facility] PLATELET COUNT 283 K/mm3 172-450 [facility] MEAN PLATELET VOLUME 9.9 fl 9.0-13.0 [facility] pital GRAN % 80.4 % 50-80.0 H [facility] IG% 0.3 % 0.0-0.2 H [facility] LYMPH % 12.5 % 25.0-50.0 L [facility] MONO % 5.4 % 2.0-10.0 [facility] EOS % 1.3 % 0-5.0 [facility] BASO % 0.1 % 0.0-2.0 [facility] GRAN # 8.1 K/mm3 2.0-8.00 H [facility] IG# 0.0 K/mm3 0.0-0.2 [facility] LYMPH # 1.3 K/mm3 1.0-5.0 [facility] MONO # 0.5 K/mm3 0.10-1.20 [facility] EOS # 0.1 K/mm3 0.0-0.5 [facility] BASO # 0.0 K/mm3 0.0-0.2 [facility] ID Date Data Source [id number] 09/26/2020 12:44:00 PM EDT [facility] Name Value Range Interpretation Code Description Data Maria Esther rce(s) Supporting Document(s) Calcium [Mass/volume] in Serum or Plasma 8.8 [facility] ([facility]) Carbon dioxide, total [Moles/volume] in Serum or Plasma 27 [facility]) Sodium 136 [facility] ([facility]) Potassium [Moles/volume] in Serum or Plasma 3.9 [facility] ([facility]) Chloride [Moles/volume] in Serum or Plasma 101 [facility] ([facility]) Glucose 335 83-110 [facility] ([facility]) Blood Urea Nitrogen 16 7-18 [facility] ([facility]) Creatinine 1.09 0.6-1.0 [facility] ([facility]) Glomerular filtration rate/1.73 sq M.pre dicted [Volume Rate/Area] in Serum or Plasma by Creatinine-based formula (MDRD) 52.4 [facility] ([facility]) ID Date Data Source [id number] 09/26/2020 12:44:00 PM EDT [facility] ([facility]) Name Value Range Interpretation Code Description Data Maria Esther rce(s) Supporting Document(s) White Blood Count 5.6 5.0-10.0 [facility] ([facility]) Red Blood Count 3.54 4.00-5.40 [facility] ([facility]) Hemoglobin 10.2 [facility] ([facility]) Platelets 190 172-450 [facility] ([facility]) Hematocrit 31.9 [facility] ([facility]) ID Date Data Source [id number] 09/25/2020 06:49:00 AM EDT [facility] TSYSORDER [id number] Name Value Range Interpretation Code Description Data Maria Esther rce(s) Supporting Document(s) GLUCOSE 150 mg/dL 74-106 H [facility] BLOOD UREA NITROGEN 20 mg/dL 7-18 H [facility] ital CREATININE 1.15 mg/dL 0.6-1.0 H [facility] SODIUM 142 mmol/L 136-145 [facility] POTASSIUM 4.2 mmol/L 3.5-5.1 [facility] CHLORIDE 104 mmol/L 98-107 [facility] CO2 28 mmol/L 21-32 [facility] CALCIUM 8.6 mg/dL 8.5-10.1 [facility] ANION GAP 10.0 mmol/L 5-12 [facility] GLOMERULAR FILTRATION RATE 46 mL/min [facility] GFR IS CALCULATED IN mL/min/1.73m2 MALINDA L FUNCTION: >90MILDLY DECREASED: 60-89MILDY TO MODERATELY DECREASED: 45-59 MODERATELY TO SEVERELY DECREASED: 30-44SEVERELY DECREASED: 15-29RENAL FAILURE: <15 AST 17 U/L 15-37 [facility] ALT 21 U/L 12-78 [facility] ALKALINE PHOSPHATASE 78 U/L 46-116 [facility] TOTAL BILIRUBIN 0.3 mg/dL 0.2-1.0 [facility] TOTAL PROTEIN 5.8 g/dl 6.4-8.2 L [facility] ALBUMIN 2.9 gm/dL 3.4-5.[address] [facility] ID Date Data Source [id number] 09/25/2020 06:23:00 AM EDT [facility] TSYSORDER [id number] Name Value Range Interpretation Code Description Data Maria Esther rce(s) Supporting Document(s) WHITE BLOOD COUNT 5.8 K/mm3 4.0-10.0 [facility] RED BLOOD COUNT 3.26 M/mm3 4.00-5.50 L [facility] HEMOGLOBIN 9.6 gm/dL 12.0-16.[address] [facility] HEMATOCRIT 29.0 % 36.0-48.[address] [facility] MEAN CELL VOLUME 89.0 fl 80-96 [facility] MEAN CORPUSCULAR HEMOGLOBIN 29.4 pg 27.0-31.0 [facility] MEAN CORPUSCULAR HGB CONC 33.1 g/dl 32.0-36.0 [facility] RED CELL DISTRIBUTION WIDTH 12.5 % 10.0-14.5 [facility] PLATELET COUNT 183 K/mm3 172-450 [facility] MEAN PLATELET VOLUME 10.7 fl 9.0-13.0 [facility] pital GRAN % 58.3 % 50-80.0 [facility] IG% 0.3 % 0.0-0.2 H [facility] LYMPH % 30.1 % 25.0-50.0 [facility] MONO % 9.6 % 2.0-10.0 [facility] EOS % 1.4 % 0-5.0 [facility] BASO % 0.3 % 0.0-2.0 [facility] GRAN # 3.4 K/mm3 2.0-8.00 [facility] IG# 0.0 K/mm3 0.0-0.2 [facility] LYMPH # 1.8 K/mm3 1.0-5.0 [facility] MONO # 0.6 K/mm3 0.10-1.20 [facility] EOS # 0.1 K/mm3 0.0-0.5 [facility] BASO # 0.0 K/mm3 0.0-0.2 [facility] ID Date Data Source [id number] 10/01/2020 05:05:00 PM EDT [facility] Name Value Range Interpretation Code Description Data Maria Esther rce(s) Supporting Document(s) Hemoglobin A1c 14.4 % 4.8-5.6 Above high normal [facility] Prediabetes: 5.7 - 6.4 Diabetes: >6.4 Glycemic control for adults with diabetes: <7.0 Estim. Avg Glu (eAG) 367 mg/dL [facility] ID Date Data Source [id number] 09/28/2020 08:43:00 AM EDT [facility] l LaguoYSORDER [id number] Name Value Range Interpretation Code Description Data Maria Esther rce(s) Supporting Document(s) HGBA1C >14 % 3.8-5.6 H [facility] SPECIMEN SENT [facility] : RESULT: 14.4% REFERENCE: 4.8-5.6% EA mg/dL PREDIABETES: 5.7-6.4% DIABETES: >6.4% GLYCEMIC CONTROL FOR ADULTS WITH DIABETES: <7.0% 09/28/20 0837: HGBA1C previously reported as: 14.31073 H %Diabetic > or = to 6.5%Prediabetes 5.7-6.4%Normal <5.7 ESTIMATED AVERAGE GLUCOSE 355.1 mg/dL [facility] 09/28/20 0838: EAG previously reported as: 355.1 mg/dL ID Date Data Source [id number] 09/24/2020 07:25:00 AM EDT [facility] l TSYSORDER [id number] Name Value Range Interpretation Code Description Data Maria Esther rce(s) Supporting Document(s) GLUCOSE 268 mg/dL 74-106 H [facility] BLOOD UREA NITROGEN 31 mg/dL 7-18 H [facility] ital CREATININE 1.73 mg/dL 0.6-1.0 H [facility] SODIUM 137 mmol/L 136-145 [facility] POTASSIUM 3.2 mmol/L 3.5-5.1 L [facility] CHLORIDE 99 mmol/L 98-107 [facility] CO2 27 mmol/L 21-32 [facility] CALCIUM 8.0 mg/dL 8.5-10.1 L [facility] ANION GAP 11.0 mmol/L 5-12 [facility] GLOMERULAR FILTRATION RATE 29 mL/min [facility] GFR IS CALCULATED IN mL/min/1.73m2 MALINDA L FUNCTION: >90MILDLY DECREASED: 60-89MILDY TO MODERATELY DECREASED: 45-59 MODERATELY TO SEVERELY DECREASED: 30-44SEVERELY DECREASED: 15-29RENAL FAILURE: <15 AST 12 U/L 15-37 L [facility] ALT 18 U/L 12-78 [facility] ALKALINE PHOSPHATASE 85 U/L 46-116 [facility] pital TOTAL BILIRUBIN 0.4 mg/dL 0.2-1.0 [facility] TOTAL PROTEIN 5.9 g/dl 6.4-8.2 L [facility] ALBUMIN 3.0 gm/dL 3.4-5.0 L [facility] ID Date Data Source [id number] 09/24/2020 07:25:00 AM T [facility] TSYSORDER [id number] Name Value Range Interpretation Code Description Data Maria Esther e(s) Supporting Document(s) C REACTIVE PROTEIN 50.7 mg/L 0.0-3.0 H [facility] luis ID Date Data Source [id number] 09/24/2020 06:59:00 AM [facility] TSYSORDER [id number] Name Value Range Interpretation Code Description Data Maria Esther rce(s) Supporting Document(s) WHITE BLOOD COUNT 8.0 K/mm3 4.0-10.0 [facility] RED BLOOD COUNT 3.32 M/mm3 4.00-5.50 L [facility] HEMOGLOBIN 9.8 gm/dL 12.0-16.[address] [facility] HEMATOCRIT 28.8 % 36.0-48.8 L [facility] MEAN CELL VOLUME 86.7 fl 80-96 [facility] MEAN CORPUSCULAR HEMOGLOBIN 29.5 pg 27.0-31.0 [facility] MEAN CORPUSCULAR HGB CONC 34.0 g/dl 32.0-36.0 [facility] RED CELL DISTRIBUTION WIDTH 12.6 % 10.0-14.5 [facility] PLATELET COUNT 188 K/mm3 172-450 [facility] MEAN PLATELET VOLUME 11.0 fl 9.0-13.0 [facility] pital GRAN % 72.9 % 50-80.0 [facility] IG% 0.3 % 0.0-0.2 H [facility] LYMPH % 18.5 % 25.0-50.0 L [facility] MONO % 7.4 % 2.0-10.0 [facility] EOS % 0.6 % 0-5.0 [facility] BASO % 0.3 % 0.0-2.0 [facility] GRAN # 5.8 K/mm3 2.0-8.00 [facility] IG# 0.0 K/mm3 0.0-0.2 [facility] LYMPH # 1.5 K/mm3 1.0-5.0 [facility] MONO # 0.6 K/mm3 0.10-1.20 [facility] EOS # 0.1 K/mm3 0.0-0.5 [facility] BASO # 0.0 K/mm3 0.0-0.2 [facility] ID Date Data Source [id number] 09/30/2020 08:33:00 AM EDT [facility] Name Value Range Interpretation Code Description Data Maria Esther rce(s) Supporting Document(s) [facility] ID Date Data Source [id number] 09/30/2020 08:33:00 AM EDT [facility] Name Value Range Interpretation Code Description Data Maria Esther rce(s) Supporting Document(s) [facility] ID Date Data Source [id number] 09/26/2020 12:35:00 PM EDT [facility] Name Value Range Interpretation Code Description Data Maria Esther rce(s) Supporting Document(s) [facility] ID Date Data Source [id number] 09/23/2020 06:23:00 PM EDT [facility] Name Value Range Interpretation Code Description Data Maria Esther rce(s) Supporting Document(s) URINE RBC 1-3 /hpf 0-3 [facility] URINE WBC 5-10 /hpf 0-5 H [facility] URINE EPITHELIAL CELLS 2+ /hpf 0 [facility] URINE BACTERIA 2+ NONE SEEN H [facility] URINE YEAST PRESENT [facility] ID Date Data Source [id number] [id number] 09/23/2020 06:23:00 PM EDT [facility] ital Name Value Range Interpretation Code Description Data Maria Esther rce(s) Supporting Document(s) URINE COLOR. YELLOW [facility] URINE APPEARANCE CLEAR [facility] l URINE GLUCOSE (UA) >=1000 mg/dL NEGATIVE [facility] URINE BILIRUBIN NEGATIVE NEGATIVE [facility] URINE KETONE NEGATIVE mg/dL NEGATIVE [facility] SPECIFIC GRAVITY,URINE 1.010 1.005-1.030 [facility] URINE BLOOD TRACE NEGATIVE [facility] PH,URINE 5.5 5.0-9.0 [facility] URINE PROTEIN TRACE mg/dL NEGATIVE [facility] URINE UROBILINOGEN 0.2 mg/dL 0-1 [facility] NITRATE NEGATIVE NEGATIVE [facility] URINE LEUKOCYTE ESTERASE TRACE NEGATIVE [facility] ID Date Data Source [id number] 09/23/2020 06:19:00 PM EDT [facility] l Name Value Range Interpretation Code Description Data Maria Esther rce(s) Supporting Document(s) URINE AMPHETAMINES NEGATIVE <1000 ng/mL [facility] pital COCAINE, URINE NEGATIVE <300 ng/mL [facility] THC,URINE NEGATIVE <50 ng/mL [facility] URINE BENZODIAZEPINES NEGATIVE <300 ng/mL [facility] ospital URINE,TCA NEGATIVE <1000 ng/mL [facility] IF A NEGATIVE RESULT IS OBTAINED AND ING ESTION OF TRICYCLICANTIDEPRESSANTS IS SUSPECTED, A SERUM SAMPLE SHOULD BEOBTAINED AND TESTED USING AN APPROPRIATE METHOD. URINE BARBITURATES NEGATIVE <300 ng/mL [facility] MDMA NEGATIVE <500 ng/mL [facility] URINE,OPIATES NEGATIVE <300 ng/mL [facility] PCP,URINE NEGATIVE <25 ng/mL [facility] OXYCODONE URINE NEGATIVE <100 ng/mL [facility] l PROPOXYPHENE NEGATIVE <300 ng/mL [facility] [facility] THESE TESTS ARE PERFORMED USING AN IMMU NOASSAY FOR THEQUALITATIVE DETERMINATION OF THE PRESENCE OF THE MAJORMETABOLITES OF DRUGS OF ABUSE. THESE TESTS ARE ONLY ASCREENING AND NOT CONFIRMATORY. CLINICAL CONSIDERATION ANDPROFESSIONAL JUDGMENT MUST BE APPLIED TO ANY DRUG OF ABUSETEST RESULT. ID Date Data Source [id number] 09/23/2020 05:56:00 PM EDT [facility] Name Value Range Interpretation Code Description Data Maria Esther rce(s) Supporting Document(s) AMMONIA < 10 umol/L 11-32 L [facility] ID Date Data Source [id number] 09/23/2020 04:52:00 PM EDT [facility] DATE OF EXAMINATION: 09/23/2020 16:22 EDT [...] rce(s) Supporting Document(s) ID Date Data Source [id number] 09/23/2020 04:34:00 PM EDT [facility] Name Value Range Interpretation Code Description Data Maria Esther rce(s) Supporting Document(s) COVID-19 NEGATIVE [facility] This lab was ordered by [facility] and reported by [facility]. ID Date Data Source [id number] 09/23/2020 07:39:00 PM EDT [facility] Name Value Range Interpretation Code Description Data Maria Etsher rce(s) Supporting Document(s) MAGNESIUM 2.0 mg/dL 1.8-2.4 [facility] ID Date Data Source [id number] 09/23/2020 07:33:00 PM EDT [facility] Name Value Range Interpretation Code Description Data Maria Esther rce(s) Supporting Document(s) LACTIC ACID 1.4 mmol/L 0.4-2.0 [facility] ID Date Data Source [id number] 09/23/2020 05:46:00 PM EDT [facility] Name Value Range Interpretation Code Description Data Maria Esther rce(s) Supporting Document(s) PROTHROMBIN TIME (PATIENT) 10.3 SECONDS 9.1-11.6 [facility] INR 0.99 0.87-1.06 [facility] ID Date Data Source [id number] 09/23/2020 05:30:00 PM EDT [facility] Name Value Range Interpretation Code Description Data Maria Esther rce(s) Supporting Document(s) WHITE BLOOD COUNT 10.9 K/mm3 4.0-10.0 [facility] luis RED BLOOD COUNT 3.83 M/mm3 4.00-5.50 L [facility] HEMOGLOBIN 11.0 gm/dL 12.0-16.0 L [facility] HEMATOCRIT 33.0 % 36.0-48.8 L [facility] MEAN CELL VOLUME 86.2 fl 80-96 [facility] MEAN CORPUSCULAR HEMOGLOBIN 28.7 pg 27.0-31.0 [facility] MEAN CORPUSCULAR HGB CONC 33.3 g/dl 32.0-36.0 [facility] RED CELL DISTRIBUTION WIDTH 12.4 % 10.0-14.5 [facility] PLATELET COUNT 235 K/mm3 172-450 [facility] MEAN PLATELET VOLUME 11.0 fl 9.0-13.0 [facility] pital GRAN % 86.2 % 50-80.0 H [facility] IG% 0.3 % 0.0-0.2 H [facility] LYMPH % 7.3 % 25.0-50.0 L [facility] MONO % 5.6 % 2.0-10.0 [facility] EOS % 0.5 % 0-5.0 [facility] BASO % 0.1 % 0.0-2.0 [facility] GRAN # 9.4 K/mm3 2.0-8.00 H [facility] IG# 0.0 K/mm3 0.0-0.2 [facility] LYMPH # 0.8 K/mm3 1.0-5.0 L [facility] MONO # 0.6 K/mm3 0.10-1.20 [facility] EOS # 0.1 K/mm3 0.0-0.5 [facility] BASO # 0.0 K/mm3 0.0-0.2 [facility] ID Date Data Source [id number] 09/23/2020 05:25:00 PM EDT [facility] Name Value Range Interpretation Code Description Data Maria Esther rce(s) Supporting Document(s) COVID-19 NEGATIVE NEGATIVE [facility] Negative results should be treated as pr [...] are for the indentification of SARS-CoV-2 RNA. RhsBFYJ-VuB-2 RNA is generally detectable in respiratorysamples during the actue phase of infection. ID Date Data Source [id number] 09/23/2020 05:45:00 PM EDT [facility] l Name Value Range Interpretation Code Description Data Maria Esther rce(s) Supporting Document(s) SALICYLATE < 3.0 mg/dL 2.8-20.0 [facility] ID Date Data Source [id number] 09/23/2020 05:45:00 PM EDT [facility] l Name Value Range Interpretation Code Description Data Maria Esther rce(s) Supporting Document(s) ETHYL ALCOHOL 0.00 % 0-0.01 [facility] ID Date Data Source [id number] 09/23/2020 05:45:00 PM EDT [facility] l Name Value Range Interpretation Code Description Data Maria Esther rce(s) Supporting Document(s) GLUCOSE 344 mg/dL 74-106 H [facility] BLOOD UREA NITROGEN 28 mg/dL 7-18 H [facility] ital CREATININE 1.43 mg/dL 0.6-1.0 H [facility] SODIUM 133 mmol/L 136-145 L [facility] POTASSIUM 3.5 mmol/L 3.5-5.1 [facility] CHLORIDE 90 mmol/L 98-107 L [facility] CO2 29 mmol/L 21-32 [facility] CALCIUM 8.7 mg/dL 8.5-10.1 [facility] ANION GAP 14.0 mmol/L 5-12 H [facility] GLOMERULAR FILTRATION RATE 36 mL/min [facility] GFR IS CALCULATED IN mL/min/1.73m2 MALINDA L FUNCTION: >90MILDLY DECREASED: 60-89MILDY TO MODERATELY DECREASED: 45-59 MODERATELY TO SEVERELY DECREASED: 30-44SEVERELY DECREASED: 15-29RENAL FAILURE: <15 AST 24 U/L 15-37 [facility] ALT 28 U/L 12-78 [facility] ALKALINE PHOSPHATASE 118 U/L 46-116 H [facility] pital TOTAL BILIRUBIN 0.5 mg/dL 0.2-1.0 [facility] TOTAL PROTEIN 7.6 g/dl 6.4-8.2 [facility] ALBUMIN 4.1 gm/dL 3.4-5.0 [facility] ID Date Data Source [id number] 09/23/2020 05:45:00 PM EDT [facility] Name Value Range Interpretation Code Description Data Maria Esther rce(s) Supporting Document(s) ACETAMINOPHEN LEVEL < 2.0 mcg/mL 10-30 L [facility] ospital ID Date Data Source [id number] 09/23/2020 04:20:00 PM EDT [facility] DATE OF EXAMINATION: 09/23/2020 16:08 EDT BRAIN [...] rce(s) Supporting Document(s) ID Date Data Source [id number] 07/24/2020 05:48:00 PM EDT [facility] Patient: DULCE RODAS tienma Report [facility].VisitID: [id number] [place] [address] [phone], FRegistration Date/Time: 07/24/2020 15:47 Weight:58 kg (S). [...] rce(s) Supporting Document(s) ID Date Data Source [id number] 07/24/2020 05:09:00 PM EDT [facility] DATE OF EXAMINATION: 07/24/2020 16:36 EDT HISTORY: [...] rce(s) Supporting Document(s) ID Date Data Source [id number] 06/16/2020 04:09:57 PM [facility] Name Value Range Interpretation Code Description Data Maria Esther rce(s) Supporting Document(s) Progress Note [facility] [id number] [id number] [file] [id number] [file] [id number] ID Date Data Source [id number] 06/16/2020 03:50:00 PM EST [facility] Patient: DULCE RDOAS Report - [facility].VisitID: [id number] [place] [address] [phone], FRegistration Date/Time: 06/16/2020 13:41 Weight:60.3 kg (S). [...] beltran(s) Supporting Document(s) ID Date Data Source [id number] 06/09/2020 01:15:00 PM EST [facility] ([facility]) Name Value Range Interpretation Code Description Data Maria Esther beltran(s) Supporting Document(s) Glucose, Fasting 272 mg/dL 70-100 [facility] ([facility]) Blood Urea Nitrogen 29 mg/dL 7-18 [facility] ([facility] Creatinine For GFR 1.29 mg/dL 0.55-1.30 [facility] ([facility]) Glomerular Filtration Rate 43.2 [facility] ([facility]) <content>Units are mL/min/1.73 m2</content>
<content></content>
<content>Chronic Kidney Disease Staging per NKF:</content>
<content></content>
<content>Stage I & II GFR >=60 Normal to Mildly Decreased</content>
<content>Stage III GFR 30- 59 Moderately Decreased</content>
<content>Stage IV GFR 15-29 Severely Decreased</content>
<content>Stage V GFR <15 Very Little GFR Left</content>
<content>ESRD GFR <15 on HEALTH FACILITIES SURVEYOR</content>
<content></content> Sodium Level 134 meq/L 136-145 [facility] ([facility]) Chloride Level 96 meq/L 98-107 [facility] ([facility]) Potassium Serum 4.5 meq/L 3.5-5.1 [facility] ([facility]) Testing was performed on a SLIGHTLY hemo lyzed specimen. Suggest recollection of specimen for more accurate test results. Carbon Dioxide Level 28 meq/L 21-32 [facility] ([facility]) Anion Gap 10 meq/L 8-16 [facility] Calcium Level 9.5 mg/dL 8.8-10.2 [facility] ([facility]) ID Date Data Source [id number] 05/30/2020 09:52:00 AM EST [facility] ([facility]) Name Value Range Interpretation Code Description Data Maria Esther rce(s) Supporting Document(s) Albumin [Mass/volume] in Serum or Plasma 3.4 [facility] ([facility]) Alanine aminotransferase [Enzymatic activity/volume] in Serum or Pl asma 20 [facility] ([facility]) Calcium [Mass/volume] in Serum or Plasma 9.2 [facility] ([facility]) Carbon dioxide, total [Moles/volume] in Serum or Plasma 28 [facility] ([facility]) Chloride [Moles/volume] in Serum or Plasma 103 [facility] ([facility]) Potassium [Moles/volume] in Serum or Plasma 4.1 [facility] ([facility]) Alkaline phosphatase [Enzymatic activity/volume] in Serum or Plasma 5 8 [facility] ([facility]) Protein [Mass/volume] in Serum or Plasma 6.6 [facility] ([facility]) Sodium 140 [facility] Aspartate aminotransferase [Enzymatic activity/volume] in Serum or Plasma 16 [facility] ([facility]) Urea nitrogen [Mass/volume] in Serum or Plasma 31 [facility] ([facility]) Glucose 145 70-100 [facility] ([facility]) Creatinine For GFR 1.48 [facility] ([facility]) ID Date Data Source [id number] 05/30/2020 09:52:00 AM EST [facility] ([facility]) Name Value Range Interpretation Code Description Data Maria Esther rce(s) Supporting Document(s) Magnesium Level 2.0 1.8-2.4 [facility] ([facility]) ID Date Data Source [id number] 05/30/2020 09:52:00 AM EST [facility] ([facility]) Name Value Range Interpretation Code Description Data Maria Esther rce(s) Supporting Document(s) White Blood Count 5.5 4.0-10.0 [facility] ([facility]) Platelets 232 150-450 [facility] Red Blood Count 3.18 4.00-5.40 [facility] ([facility]) Hemoglobin 9.4 [facility] ([facility]) Hematocrit 30.3 [facility] ([facility]) ID Date Data Source [id number] 05/28/2020 02:14:00 PM EST [facility] Name Value Range Interpretation Code Description Data Maria Esther rce(s) Supporting Document(s) SARS coronavirus 2 RNA [Presence] in Res piratory specimen by MARYANNE with probe detection NEGATIVE [facility] This lab was ordered by [facility] a nd reported by [facility]. ID Date Data Source [id number] 05/28/2020 09:43:00 AM EST [facility] ([facility]) Name Value Range Interpretation Code Description Data Maria Esther rce(s) Supporting Document(s) Calcium [Mass/volume] in Serum or Plasma 9.6 [facility] ([facility]) Sodium 136 [facility] Carbon dioxide, total [Moles/volume] in Serum or Plasma 30 [facility] ([facility]) Chloride [Moles/volume] in Serum or Plasma 99 [facility] ([facility]) Potassium [Moles/volume] in Serum or Plasma 5.0 [facility] ([facility]) Glucose 221 70-100 [facility] Blood Urea Nitrogen 43 5-21 [facility] ([facility]) Creatinine 1.71 0.6-1.5 [facility] ([facility]) Glomerular filtration rate/1.73 sq M.pre dicted [Volume Rate/Area] in Serum or Plasma by Creatinine-based formula (MDRD) 31.2 [facility] ([facility]) ID Date Data Source [id number] 05/24/2020 10:10:00 AM [facility] Patient: DULCE RODASa tienma Report - [facility], [facility].VisitID: [id number] [place] [address] [phone], FRegistration Date/Time: 05/21/2020 00:11 Weight:62.1 kg (M). [...] ligation who presented to emergency department of [facility] on 05/21/2020 shortly after midnight brought by EMS complaining of severe dyspnea and symptoms of congestive heart failure exacerbation. He was recently seen at [facility] emergency department and was transferred to [facility] with NSTEMI. She did have an echo [...] EKGLaboratory Tests: COVID-19 IN-HOUSE: (YI: 05/21/2020 08:42)( [facility] 05/21/2020 09:05) New Order TSYSORDER [id number] Test Result Flag Units (Reference)COVID-19 NEGATIVE (NEGATIVE) [...] are for the indentification of SARS-CoV-2 RNA. RbqSZNN-VlT-5 RNA is generally detectable in respiratorysamples during the actue phase of infection. BMP: (YI: 05/21/2020 03:35)( [facility] [place] 03:56[place] New Order TSYSORDER [id number] Test Result Flag Units (Reference)GLUCOSE 296 H mg/dL (74-106) BLOOD UREA NITROGEN 20 H mg/dL (7-18) CREATININE 1.30 H mg/dL (0.6-1.0) SODIUM 135 L mmol/L (136-145) POTASSIUM 4.9 mmol/L (3.5-5.1) CHLORIDE 101 mmol/L (98-107) CO2 26 mmol/L (21-32) CALCIUM 8.7 mg/dL (8.5-10.1) ANION GAP 8.0 mmol/L (5-12) GLOMERULAR FILTRATION RATE 40 mL/min GFR IS CALCULATED IN mL/min/1.12l2IPEHMO FUNCTION: >90MILDLY DECREASED: 60-89MILDY TO MODERATELY DECREASED: 45-59 MODERATELY TO SEVERELY DECREASED: 30-44SEVERELY DECREASED: 15-29RENAL FAILURE: <15 VENOUS BLOOD GAS: (YI: 05/21/2020 01:30)( MsgRcvd 05/21/2020 01:40) New Order TSYSORDER [id number] Test Result Flag Units (Reference)PH 7.27 L (7.31-7.41) VENOUS PCO2 60.3 H mmHg (41-51) VENOUS PO2 33 L mmHg (35-42) VENOUS BLODD O2 SATURATION 32.9 L % (68-77) VENOUS BLOOD HCO3 26.8 H meq/L (24.0-25.0) VENOUS BASE EXCESS -0.2 (-3.0-3.0) VENOUS BLOOD CO2 28.7 mmol/L (23.0-32.0) Chest 1V: (YI: 05/21/2020 00:46)( VagRcvd 05/21/2020 06:19) F Test Result Flag Units [...] LORRI PALACIOS w Diff: (YI: 05/21/2020 00:19)( [facility] [place] [place] 00:55) New Order TSYSORDER [id number] Test Result Flag Units (Reference)WHITE BLOOD COUNT [...] 00:19)( MsgRcvd 05/21/2020 01:24) New Order TSYSORDER [id number] Test Result Flag Units (Reference)PROTHROMBIN TIME (PATIENT) 10.7 SECONDS (9.1-11.6) INR 1.03 (0.87-1.06) PARTIAL THROMBOPLASTIN TIME SECONDS (21.2-27.3) LESS THAN 17.8 CMP: (YI: 05/21/2020 00:19)( [facility] 05/21/2020 01:11) New Order TSYSORDER [id number] Test Result Flag Units (Reference)GLUCOSE 317 H mg/dL (74-106) BLOOD UREA NITROGEN 19 H mg/dL (7-18) CREATININE 1.07 H mg/dL (0.6-1.0) SODIUM 137 mmol/L (136-145) POTASSIUM 5.6 H mmol/L (3.5-5.1) CHLORIDE 101 mmol/L (98-107) CO2 27 mmol/L (21-32) CALCIUM 8.8 mg/dL (8.5-10.1) ANION GAP 9.0 mmol/L (5-12) GLOMERULAR FILTRATION RATE 50 mL/min GFR IS CALCULATED IN mL/min/1.99s5SJVCCR FUNCTION: >90MILDLY DECREASED: 60-89MILDY TO MODERATELY DECREASED: 45-59 MODERATELY TO SEVERELY DECREASED: 30-44SEVERELY DECREASED: 15-29RENAL FAILURE: <15 AST 28 U/L (15-37) ALT 25 U/L (12-78) ALKALINE PHOSPHATASE 53 U/L (46-116) TOTAL BILIRUBIN 0.5 mg/dL (0.2-1.0) TOTAL PROTEIN 7.0 g/dl (6.4-8.2) ALBUMIN 3.6 gm/dL (3.4-5.0) TROPONIN I 0.017 ng/mL (0.0-0.056) T4 Free: (YI: 05/21/2020 00:19)( [facility] [place] [place] 01:19) New Order Test Result Flag Units (Reference)TSH 9.284 H uIU/mL (0.36- 3.74) FREE T4 0.8 ng/dL (0.76-1.46) UA CULTURE IF INDICATED: (YI: 05/21/2020 00:19)( [facility] 05/21/2020 01:40) New Order URINE SOURCE? URINE, CLEAN CATCHTSYSORDER [id number] Test Result Flag Units (Reference)URINE COLOR. YELLOW [...] 00:19)( MsgRcvd 05/21/2020 03:01) New Order TSYSORDER [id number] Test Result Flag Units (Reference)MAGNESIUM 2.1 mg/dL [...] Rodas CrCl was 48 at best.The safest oajszzf3zks for her would still be Long lasting [...] failure before. She was recently discharged from [facility] after having NSTEMI. She has known congestive [...] 94%. Temp: 97.4 F. Pain level now: 0/10.05/21/2020 10:00 HR: 75. O2 saturation: 100% on [...] air. Temp: 98.9 F. Pain level now: 21:00 mRS Rodas HAD LOW bp READINGS [...] air. Temp: 98.5 F. Pain level now: .05/22/2020 03:10 BP: lying 97/62. MAP: 73. HR: [...] (stable H/H). Coronary Artery Disease. [facility] [place] (05/15/2020 NSTEMI) Diabetes Mellitus. INSTRUCTIONSNo strenuous activity. Follow a low salt diet and diabetic diet Follow a low cholesterol diet Follow a low salt diet. Avoid tobacco smoke. (You will also need to see kidney specialist and your service center specialist.). Warnings: Further evaluation is necessary in [...] days. Dispense 5 Pen. Refills: 0. Substitution permitted.[facility] - [address] [address] , [place] [address]. . furosemide 20 mg tablet Take 1 tablet once a day for 30 days -- Dispense 30 tablet. Refills: 0. Substitution permitted.[facility] - [address] [address] , [place] [address]. . Follow-up:Follow up with your healthcare provider Tomorrow at 2 pm as scheduled even if well. Reason for referral: evaluation and treatment. Summary of care provided to follow-up provider. Understanding of the discharge instructions verbalized by patient. (Electronically signed by Pat Marcelino MD 05/23/2020 15:57) Name Value Range Interpretation Code Description Data [facility](s) Supporting Document(s) ID Date Data Source [id number] 05/23/2020 10:22:00 AM [facility] l TSYSORDER [id number] Name Value Range Interpretation Code Description Data [facility](s) Supporting Document(s) GLUCOSE 303 mg/dL 74-106 H [facility] BLOOD UREA NITROGEN 26 mg/dL 7-18 H [facility] ital CREATININE 1.36 mg/dL 0.6-1.0 H [facility] SODIUM 133 mmol/L 136-145 L [facility] POTASSIUM 4.6 mmol/L 3.5-5.1 [facility] CHLORIDE 97 mmol/L 98-107 L [facility] CO2 26 mmol/L 21-32 [facility] CALCIUM 9.3 mg/dL 8.5-10.1 [facility] ANION GAP 10.0 mmol/L 5-12 [facility] GLOMERULAR FILTRATION RATE 38 mL/min [facility] GFR IS CALCULATED IN mL/min/1.73m2 MALINDA L FUNCTION: >90MILDLY DECREASED: 60-89MILDY TO MODERATELY DECREASED: 45-59 MODERATELY TO SEVERELY DECREASED: 30-44SEVERELY DECREASED: 15-29RENAL FAILURE: <15 AST 21 U/L 15-37 [facility] ALT 21 U/L 12-78 [facility] ALKALINE PHOSPHATASE 58 U/L 46-116 [facility] TOTAL BILIRUBIN 0.6 mg/dL 0.2-1.0 [facility] TOTAL PROTEIN 6.9 g/dl 6.4-8.2 [facility] ALBUMIN 3.6 gm/dL 3.4-5.0 [facility] ID Date Data Source [id number] 05/23/2020 10:21:00 AM [facility] TSYSORDER [id number] Name Value Range Interpretation Code Description Data Maria Esther e(s) Supporting Document(s) MAGNESIUM 1.7 mg/dL 1.8-2.4 L [facility] ID Date Data Source [id number] 05/23/2020 10:17:00 AM [facility] TSYSORDER [id number] Name Value Range Interpretation Code Description Data Maria Esther e(s) Supporting Document(s) WHITE BLOOD COUNT 6.8 K/mm3 4.0-10.0 [facility] al RED BLOOD COUNT 3.27 M/mm3 4.00-5.50 L [facility] HEMOGLOBIN 10.1 gm/dL 12.0-16.0 L [facility] HEMATOCRIT 29.9 % 36.0-48.8 L [facility] MEAN CELL VOLUME 91.4 fl 80-96 [facility] MEAN CORPUSCULAR HEMOGLOBIN 30.9 pg 27.0-31.0 [facility] MEAN CORPUSCULAR HGB CONC 33.8 g/dl 32.0-36.0 [facility] RED CELL DISTRIBUTION WIDTH 14.6 % 10.0-14.5 H [facility] PLATELET COUNT 254 K/mm3 172-450 [facility] MEAN PLATELET VOLUME 10.9 fl 9.0-13.0 [facility] pital GRAN % 76.1 % 50-80.0 [facility] IG% 0.4 % 0.0-0.2 H [facility] LYMPH % 14.7 % 25.0-50.0 L [facility] MONO % 7.5 % 2.0-10.0 [facility] EOS % 1.2 % 0-5.0 [facility] BASO % 0.1 % 0.0-2.0 [facility] GRAN # 5.2 K/mm3 2.0-8.00 [facility] IG# 0.0 K/mm3 0.0-0.2 [facility] LYMPH # 1.0 K/mm3 1.0-5.0 [facility] MONO # 0.5 K/mm3 0.10-1.20 [facility] EOS # 0.1 K/mm3 0.0-0.5 [facility] BASO # 0.0 K/mm3 0.0-0.2 [facility] ID Date Data Source [id number] 05/22/2020 07:21:00 AM [facility] l TSYSORDER [id number] Name Value Range Interpretation Code Description Data Maria Esther rce(s) Supporting Document(s) HGBA1C 6.5 % 3.8-5.6 H [facility] Diabetic > or = to 6.5%Prediabetes 5.7-6 .4%Normal <5.7 ESTIMATED AVERAGE GLUCOSE 139.9 mg/dL [facility] ID Date Data Source [id number] 05/22/2020 07:21:00 AM [facility] l TSYSORDER [id number] Name Value Range Interpretation Code Description Data Maria Esther rce(s) Supporting Document(s) C REACTIVE PROTEIN 8.4 mg/L 0.0-3.0 H [facility] luis ID Date Data Source [id number] 05/22/2020 07:21:00 AM [facility] TSYSORDER [id number] Name Value Range Interpretation Code Description Data Maria Esther rce(s) Supporting Document(s) GLUCOSE 150 mg/dL 74-106 H [facility] BLOOD UREA NITROGEN 29 mg/dL 7-18 H [facility] ital CREATININE 1.48 mg/dL 0.6-1.0 H [facility] SODIUM 139 mmol/L 136-145 [facility] POTASSIUM 4.2 mmol/L 3.5-5.1 [facility] CHLORIDE 103 mmol/L 98-107 [facility] CO2 28 mmol/L 21-32 [facility] CALCIUM 8.9 mg/dL 8.5-10.1 [facility] ANION GAP 8.0 mmol/L 5-12 [facility] GLOMERULAR FILTRATION RATE 35 mL/min [facility] GFR IS CALCULATED IN mL/min/1.73m2 MALINDA L FUNCTION: >90MILDLY DECREASED: 60-89MILDY TO MODERATELY DECREASED: 45-59 MODERATELY TO SEVERELY DECREASED: 30-44SEVERELY DECREASED: 15-29RENAL FAILURE: <15 AST 15 U/L 15-37 [facility] ALT 17 U/L 12-78 [facility] ALKALINE PHOSPHATASE 44 U/L 46-116 L [facility] TOTAL BILIRUBIN 0.5 mg/dL 0.2-1.0 [facility] TOTAL PROTEIN 6.2 g/dl 6.4-8.2 L [facility] ALBUMIN 3.0 gm/dL 3.4-5.[address] [facility] ID Date Data Source [id number] 05/22/2020 07:21:00 AM [facility] TSYSORDER [id number] Name Value Range Interpretation Code Description Data [facility](s) Supporting Document(s) MAGNESIUM 1.8 mg/dL 1.8-2.4 [facility] ID Date Data Source [id number] 05/22/2020 06:42:00 AM [facility] TSYSORDER [id number] Name Value Range Interpretation Code Description Data [facility](s) Supporting Document(s) WHITE BLOOD COUNT 7.0 K/mm3 4.0-10.0 [facility] al RED BLOOD COUNT 2.80 M/mm3 4.00-5.50 L [facility] HEMOGLOBIN 8.5 gm/dL 12.0-16.[address] [facility] HEMATOCRIT 26.0 % 36.0-48.[address] [facility] MEAN CELL VOLUME 92.9 fl 80-96 [facility] MEAN CORPUSCULAR HEMOGLOBIN 30.4 pg 27.0-31.0 [facility] MEAN CORPUSCULAR HGB CONC 32.7 g/dl 32.0-36.0 [facility] RED CELL DISTRIBUTION WIDTH 14.8 % 10.0-14.5 H [facility] PLATELET COUNT 215 K/mm3 172-450 [facility] MEAN PLATELET VOLUME 10.8 fl 9.0-13.0 [facility] pital GRAN % 60.0 % 50-80.0 [facility] IG% 0.1 % 0.0-0.2 [facility] LYMPH % 30.2 % 25.0-50.0 [facility] MONO % 8.0 % 2.0-10.0 [facility] EOS % 1.6 % 0-5.0 [facility] BASO % 0.1 % 0.0-2.0 [facility] GRAN # 4.2 K/mm3 2.0-8.00 [facility] IG# 0.0 K/mm3 0.0-0.2 [facility] LYMPH # 2.1 K/mm3 1.0-5.0 [facility] MONO # 0.6 K/mm3 0.10-1.20 [facility] EOS # 0.1 K/mm3 0.0-0.5 [facility] BASO # 0.0 K/mm3 0.0-0.2 [facility] ID Date Data Source [id number] 05/21/2020 08:42:00 AM EST [facility] Name Value Range Interpretation Code Description Data Maria Esther rce(s) Supporting Document(s) COVID-19 NEGATIVE [facility] This lab was ordered by [facility] monserrat Lab and reported by [facility] Laboratory. ID Date Data Source [id number] 05/21/2020 09:04:00 AM EST [facility] TSYS[facility] [id number] Name Value Range Interpretation Code Description Data Maria Esther rce(s) Supporting Document(s) COVID-19 NEGATIVE NEGATIVE [facility] Negative results should be treated as pr [...] are for the indentification of SARS-CoV-2 RNA. RjfPQNL-NpX-9 RNA is generally detectable in respiratorysamples during the actue phase of infection. ID Date Data Source [id number] 05/21/2020 06:19:00 AM [facility] [...] rce(s) Supporting Document(s) ID Date Data Source [id number] 05/21/2020 03:55:00 AM EST [facility] TSYSORDER [id number] Name Value Range Interpretation Code Description Data Maria Esther rce(s) Supporting Document(s) GLUCOSE 296 mg/dL 74-106 H [facility] BLOOD UREA NITROGEN 20 mg/dL 7-18 [facility] ital CREATININE 1.30 mg/dL 0.6-1.0 H [facility] SODIUM 135 mmol/L 136-145 L [facility] POTASSIUM 4.9 mmol/L 3.5-5.1 [facility] CHLORIDE 101 mmol/L 98-107 [facility] CO2 26 mmol/L 21-32 [facility] CALCIUM 8.7 mg/dL 8.5-10.1 [facility] ANION GAP 8.0 mmol/L 5-12 [facility] GLOMERULAR FILTRATION RATE 40 mL/min [facility] GFR IS CALCULATED IN mL/min/1.73m2 MALINDA L FUNCTION: >90MILDLY DECREASED: 60-89MILDY TO MODERATELY DECREASED: 45-59 MODERATELY TO SEVERELY DECREASED: 30-44SEVERELY DECREASED: 15-29RENAL FAILURE: <15 ID Date Data Source [id number] 05/21/2020 01:38:00 AM EST [facility] [id number] Name Value Range Interpretation Code Description Data Maria Esther rce(s) Supporting Document(s) PH 7.27 7.31-7.41 [facility] VENOUS PCO2 60.3 mmHg 41-51 [facility] VENOUS PO2 33 mmHg 35-42 L [facility] VENOUS BLODD O2 SATURATION 32.9 % 68-77 L [facility] VENOUS BLOOD HCO3 26.8 meq/L 24.0-25.0 [facility] BASE EXCESS -0.2 -3.0-3.0 [facility] VENOUS BLOOD CO2 28.7 mmol/L 23.0-32.0 [facility] ID Date Data Source [id number] 05/21/2020 03:00:00 AM [facility] TSYSORDER [id number] Name Value Range Interpretation Code Description Data Maria Esther rce(s) Supporting Document(s) B-TYPE NATRIURETIC PEPTIDE 3692 pg/ml 0-125 *H [facility] ID Date Data Source [id number] 05/21/2020 03:00:00 AM [facility] l TSYSORDER [id number] Name Value Range Interpretation Code Description Data Maria Esther rce(s) Supporting Document(s) MAGNESIUM 2.1 mg/dL 1.8-2.4 [facility] ID Date Data Source [id number] 05/21/2020 01:19:00 AM [facility] spital TSYSORDER [id number] Name Value Range Interpretation Code Description Data Maria Esther rce(s) Supporting Document(s) URINE BACTERIA TRACE NONE SEEN Located Within [facility] ID Date Data Source [id number] 05/21/2020 01:27:00 AM [facility] ital TSYSORDER [id number] Name Value Range Interpretation Code Description Data Maria Esther rce(s) Supporting Document(s) URINE COLOR. [facility] URINE APPEARANCE CLEAR [facility] URINE GLUCOSE (UA) 500 mg/dL NEGATIVE [facility] URINE BILIRUBIN NEGATIVE NEGATIVE [facility] URINE KETONE NEGATIVE mg/dL NEGATIVE [facility] al SPECIFIC GRAVITY,URINE 1.020 1.001-1.035 [facility] URINE BLOOD NEGATIVE NEGATIVE [facility] PH,URINE 7.0 5.0-9.0 [facility] URINE PROTEIN 1+(30) mg/dL NEGATIVE [facility] URINE UROBILINOGEN NORMAL(0.2-1) mg/dL 0-1 R [facility] URINE NITRATE NEGATIVE NEGATIVE [facility] URINE LEUKOCYTE ESTERASE NEGATIVE NEGATIVE [facility] ID Date Data Source [id number] 05/21/2020 01:34:00 AM [facility] l TSYSORDER [id number] Name Value Range Interpretation Code Description Data Maria Esther rce(s) Supporting Document(s) B-TYPE NATRIURETIC PEPTIDE 3601 pg/ml 0-125 *H [facility] ID Date Data Source [id number] 05/21/2020 01:14:00 AM EST [facility] TSYSORDER [id number] Name Value Range Interpretation Code Description Data Maria Esther rce(s) Supporting Document(s) MAGNESIUM 2.0 mg/dL 1.8-2.4 [facility] ID Date Data Source [id number] 05/21/2020 01:03:00 AM EST [facility] TSYSORDER [id number] Name Value Range Interpretation Code Description Data Maria Esther rce(s) Supporting Document(s) PROTHROMBIN TIME (PATIENT) 10.7 SECONDS 9.1-11.6 [facility] INR 1.03 0.87-1.06 [facility] ID Date Data Source [id number] 05/21/2020 01:17:00 AM EST [facility] TSYSORDER [id number] Name Value Range Interpretation Code Description Data Maria Esther rce(s) Supporting Document(s) FREE T4 0.8 ng/dL 0.76-1.46 [facility] ID Date Data Source [id number] 05/21/2020 01:17:00 AM [facility] TSYSORDER [id number] Name Value Range Interpretation Code Description Data Maria Esther rce(s) Supporting Document(s) TSH 9.284 uIU/mL 0.36-3.74 H [facility] ID Date Data Source [id number] 05/21/2020 01:09:00 AM EST [facility] TSYSORDER [id number] Name Value Range Interpretation Code Description Data Maria Esther rce(s) Supporting Document(s) TROPONIN I 0.017 ng/mL 0.0-0.056 [facility] ID Date Data Source [id number] 05/21/2020 01:09:00 AM EST [facility] TSYSORDER [id number] Name Value Range Interpretation Code Description Data Maria Esther rce(s) Supporting Document(s) GLUCOSE 317 mg/dL 74-106 H [facility] BLOOD UREA NITROGEN 19 mg/dL 7-18 H [facility] ital CREATININE 1.07 mg/dL 0.6-1.0 H [facility] SODIUM 137 mmol/L 136-145 [facility] POTASSIUM 5.6 mmol/L 3.5-5.1 H [facility] CHLORIDE 101 mmol/L 98-107 [facility] CO2 27 mmol/L 21-32 [facility] CALCIUM 8.8 mg/dL 8.5-10.1 [facility] ANION GAP 9.0 mmol/L 5-12 [facility] GLOMERULAR FILTRATION RATE 50 mL/min [facility] GFR IS CALCULATED IN mL/min/1.73m2 MALINDA L FUNCTION: >90MILDLY DECREASED: 60-89MILDY TO MODERATELY DECREASED: 45-59 MODERATELY TO SEVERELY DECREASED: 30-44SEVERELY DECREASED: 15-29RENAL FAILURE: <15 AST 28 U/L 15-37 [facility] ALT 25 U/L 12-78 [facility] ALKALINE PHOSPHATASE 53 U/L 46-116 [facility] TOTAL BILIRUBIN 0.5 mg/dL 0.2-1.0 [facility] TOTAL PROTEIN 7.0 g/dl 6.4-8.2 [facility] ALBUMIN 3.6 gm/dL 3.4-5.0 [facility] ID Date Data Source [id number] 05/21/2020 12:53:00 AM EST [facility] TSYSORDER [id number] Name Value Range Interpretation Code Description Data Maria Esther rce(s) Supporting Document(s) WHITE BLOOD COUNT 10.4 K/mm3 4.0-10.0 H [facility] luis RED BLOOD COUNT 3.12 M/mm3 4.00-5.50 L [facility] HEMOGLOBIN 9.4 gm/dL 12.0-16.0 L [facility] HEMATOCRIT 29.9 % 36.0-48.8 L [facility] MEAN CELL VOLUME 95.8 fl 80-96 [facility] MEAN CORPUSCULAR HEMOGLOBIN 30.1 pg 27.0-31.0 [facility] MEAN CORPUSCULAR HGB CONC 31.4 g/dl 32.0-36.0 L [facility] RED CELL DISTRIBUTION WIDTH 14.5 % 10.0-14.5 [facility] PLATELET COUNT 325 K/mm3 172-450 [facility] MEAN PLATELET VOLUME 11.2 fl 9.0-13.0 [facility] pital GRAN % 70.1 % 50-80.0 [facility] IG% 1.1 % 0.0-0.2 H [facility] LYMPH % 19.8 % 25.0-50.0 L [facility] MONO % 6.6 % 2.0-10.0 [facility] EOS % 2.2 % 0-5.0 [facility] BASO % 0.2 % 0.0-2.0 [facility] GRAN # 7.3 K/mm3 2.0-8.00 [facility] IG# 0.1 K/mm3 0.0-0.2 [facility] LYMPH # 2.1 K/mm3 1.0-5.0 [facility] MONO # 0.7 K/mm3 0.10-1.20 [facility] EOS # 0.2 K/mm3 0.0-0.5 [facility] BASO # 0.0 K/mm3 0.0-0.2 [facility] ID Date Data Source [id number] 05/16/2020 10:15:42 AM EST [facility] Name Value Range Interpretation Code Description Data Maria Esther rce(s) Supporting Document(s) &PDF [facility] ICDIGq1aRpEZHpGh07/IOHzgISEup1HrEUrwHXo6MQazGILlO3JnkYwyXHPOKrzGH20ILBEBGAxUNjTO yZW [file] CiAgICAgICAgICAgICAgICAgICAgICAgICAgICAgICAgICAgICAgICAgICAgICAgICAgICAgICAgICAg ICAgICAgICAgICAgICAgICAgICAgICAgICAgICAgIC AgICAgICAgICANCiAgICAgICAgICAgICAgICAgICAgICAgICAgICAgICAgICAgICAgICAgICAgICAgIC AgICAgICAgICAgICAgICAgICAgICAgICAgICAgICAgICAgICAgICAgICAgICAgICAgICANCiAgICAgIC AgICAgICAgICAgICAgICAgICAgICAgICAgICAgICAg ICAgICAgICAgICAgICAgICAgICAgICAgICAgICAgICAgICAgICAgICAgICAgICAgICAgICAgICAgICAg ICANCiAgICAgICAgICAgICAgICAgICAgICAgICAgICAgICAgICAgICAgICAgICAgICAgICAgICAgICAg ICAgICAgICAgICAgICAgICAgICAgICAgICAgICAgIC AgICAgICAgICAgICANCiAgICAgICAgICAgICAgICAgICAgICAgICAgICAgICAgICAgICAgICAgICAgIC AgICAgICAgICAgICAgICAgICAgICAgICAgICAgICAgICAgICAgICAgICAgICAgICAgICAgICANCiAgIC AgICAgICAgICAgICAgICAgICAgICAgICAgICAgICAg ICAgICAgICAgICAgICAgICAgICAgICAgICAgICAgICAgICAgICAgICAgICAgICAgICAgICAgICAgICAg ICAgICANCiAgICAgICAgICAgICAgICAgICAgICAgICAgICAgICAgICAgICAgICAgICAgICAgICAgICAg ICAgICAgICAgICAgICAgICAgICAgICAgICAgICAgIC AgICAgICAgICAgICAgICANCiAgICAgICAgICAgICAgICAgICAgICAgICAgICAgICAgICAgICAgICAgIC AgICAgICAgICAgICAgICAgICAgICAgICAgICAgICAgICAgICAgICAgICAgICAgICAgICAgICAgICANCi AgICAgICAgICAgICAgICAgICAgICAgICAgICAgICAg ICAgICAgICAgICAgICAgICAgICAgICAgICAgICAgICAgICAgICAgICAgICAgICAgICAgICAgICAgICAg ICAgICAgICANCiAgICAgICAgICAgICAgICAgICAgICAgICAgICAgICAgICAgICAgICAgICAgICAgICAg ICAgICAgICAgICAgICAgICAgICAgICAgICAgICAgIC AgICAgICAgICAgICAgICAgICANCjw/iSHuE3biyXVbncG9S3yrAa3BZo3SIF7ma1VpALLqUYkwnhGcEw cNQyXbYKHnDaaAQkz2WJvzQZ6MxEGtX2QuV6DeJVdpMT5JXBCfSMQqsTDvBYMfTQVwXvU4DAMaMYkkIZ 7OkLKjYBatVIKaIXVfAbLvUWDaNX2IOAIsM385dqLd Xo2NIu8XLcXoNX3euj6AHvYtJLLtXfcSYtq0FHptMG0BbGQcV9IlnPPnz9uNIrUwE4TGALA7DKKnKx2F ZQCoCyStHSKhDTawQY3cYKEoSXNBcKfvuvH8YL7DKM2pupCtGH4GMlIlCw4hJm4CWwNrX9QtM3ZmMZUx EXYBDCctWJ8XVPPsJVG5VMKaSPBeZSRFGiGiS66jYQ 4SE7Lyk58oWjN9ZKUzRqCdKBynGR81cOrafuQlaRBxhLmdPW7VAg7+DQplbmRvYmoNCnhyZWYNCjAgMj sFVmKbRPWwZAGrWUJyXnX8HiVoSs8KGHCxYRXhHAGjUaTsQKFxWIVyDEhtHOLcTLK0SGM2KGKpORDcNV 5NMyBqZISvIviqPULvGLIjDDComx6KLMHpEUIyBXV2 ZdBtTGTuNWHcXAphFBMtMEMeCIheIHMoHFObEA3QVuXqJIYmZSN2KXZcBWKpHRIuqz0GDAXaEKIwImXy JULjIARgLNPwYVkwLKNmYQL6YeM3QCLlZJZnJE8QXvZzACJlYPtmNzDsBKBrGVKmvu6FDPSqLUIzDrW3 AIDpOMCbYHCsWLdpHNGsKRP8KPApKASvXUVzLL0UWe CuGCJrYZx6WYTrCZNfTIGlgw0TYODaFEJrGBeiIjMoAXBhEZMxRJvqHVHgDGF1ADpvLJEtRVNiGD3VFg OkLLDfXQZ2WVJbCZAkLSLkek2RMDYuUPQwOLX4TpJsAEKzDAZxWYlcHGUgVNX2Oou6RRHpEGPsEU9DUz EkKCOjSNV7ELFkRSKwSWUwjz9DVRQlIHDcFDY6ScQg VGOgRFMpKJxeEMMxECA6DvC5RBCtTYHsTV3EMuFeLETlKMQ4XMagTWBwVIHvcg2UQSBsMBTlKJv1EuHe TMZsGBTyXNuuMCCgDCIeYIO0CRJxGPWeHZ2XOiIkTJXwBvJxQTYxETDnOSEypc6WCLVbSPUfMMy8PQFd CADjTHXaRAngKZZiNNP9Bdd8JLLgULOwVT6MJvSfYH pdSKTPKvq3WHsbK4n4XZJrSm9UV4Akg9BcKxSoJWXRBQrbWY2yfkNwTDDjUl8LY1gMNwimXfamGGQ9GF CaIGEzEPY3TyhpIJQ7BHP3RPBjOyUaBR7lPJSiBOU9Kec2MkPuYOHdIAeuUPOpBkp5RzQaZvO7FLW7Fh JhIH7FNa8XJxT9OGE8cQYdGd6XPtm4NvYLKoQhRQ0CTQf= ID Date Data Source [id number] 05/16/2020 09:38:[address] [facility] INFORMATIONPatient MRN Name Date of Age Gend*PT [id number] Dulce Rodas 1945 74 years F IPPT Location Admission Date/Time Visit ID Attending [id number] 05/14/20 1900 --- Naveed Muse MD([id number]) EPI ID CSN Admitting Provider [id number] Fletcher Barba MD([id number]) [facility] DISCHARGE SUMMARYPatient Name: Dulce Rodas of : 1945 Age 74 yearsPrimary Physician: MYRIAM Carney PCP Jjzgijhuj Date: 05/14/2020 Discharge Date:She will be discharged from [facility] to [facility] Diagnoses:Principal Problem:Type II LA secondary to anemia and renal insufficiencyActive Problems: [...] post PCI and drug-eluting stents placement inJune 2020 history of diastolic heart failure history of [...] deemed to be secondary to type II LA fromdemand ischemia her symptomatology subsided we ended [...] mental status, speech normal, alert and oriented [id number]:Imaging:Echocardiogram pending prior to dischargeChest x-ray done on [...] rce(s) Supporting Document(s) ID Date Data Source [id number] 05/16/2020 10:47:52 AM EST [facility] Name Value Range Interpretation Code Description Data Maria Esther rce(s) Supporting Document(s) TROPONIN I 0.15 ng/mL (<0.05) H [facility] Less than 0.05: Myocardial injury unlike lyGreater than or equal to 0.05: Highly suggestive of myocardial injuryCorrelation with rise and/or fall ofserial troponins, clinical symptomsand ECG changes is necessary. ID Date Data Source [id number] 05/16/2020 10:42:57 AM EST [facility] Name Value Range Interpretation Code Description Data Maria Esther rce(s) Supporting Document(s) APTT 67.9 s (22.0-34.3) H [facility] ID Date Data Source [id number] 05/16/2020 05:08:22 AM EST [facility] Name Value Range Interpretation Code Description Data Maria Esther rce(s) Supporting Document(s) SODIUM 141 mmol/L (136-145) [facility] POTASSIUM 3.7 mmol/L (3.6-5.2) [facility] CHLORIDE 107 mmol/L (100-108) [facility] CO2 24 mmol/L (22-31) [facility] ANION GAP 10 mmol/L (7-16) [facility] UREA NITROGEN 41 mg/dL (7-24) H [facility] CREATININE 1.41 mg/dL (0.60-1.00) H [facility] BUN/CREAT RATIO 29.1 RATIO (10.0-20.0) H [facility] GLUCOSE 117 mg/dL (70-99) H [facility] CALCIUM 8.5 mg/dL (8.4-10.2) [facility] GFR 37 ml/min/1.73m2 (>59) L [facility] GFR ([facility]) 44 ml/min/1.73m2 (>59) L [facility] GFR INTERPRETATION [facility] --NORMAL KIDNEY FUNCTION OR MILD DISEASE - GFR >OR= 60CHRONIC KIDNEY DISEASE - GFR 15 - 59RENAL FAILURE - GFR <15 Est. GFR calculation based on the MDRDstudy equation, which assumes a steadystate for creatinine. Est. GFR should notbe used for medication dosing. ID Date Data Source [id number] 05/16/2020 04:54:10 AM EST [facility] Name Value Range Interpretation Code Description Data Maria Esther rce(s) Supporting Document(s) APTT 53.5 s (22.0-34.3) H [facility] ID Date Data Source [id number] 05/16/2020 04:44:10 AM EST [facility] Name Value Range Interpretation Code Description Data Maria Esther rce(s) Supporting Document(s) WBC 5.5 10*3/uL (4.1-11.0) [facility] [place] RBC 2.77 10*6/uL (4.00-5.40) L [facility] HGB 8.5 g/dL (12.0-16.0) L [facility] HCT 25.1 % (36.0-47.0) L [facility] MCV 90.5 fL (80.0-95.0) [facility] MCH 30.6 pg (27.0-32.0) [facility] MCHC 33.8 g/dL (32.0-36.0) [facility] RDW 15.3 % (10.5-14.5) H [facility] PLT 174 10*3/uL (150-450) [facility] MPV 8.8 fL (7.1-10.7) [facility] ID Date Data Source [id number] 05/15/2020 09:05:26 PM EST [facility] Name Value Range Interpretation Code Description Data Maria Esther rce(s) Supporting Document(s) APTT 52.3 s (22.0-34.3) H [facility] ID Date Data Source [id number] 05/15/2020 06:28:43 PM EST [facility] Name Value Range Interpretation Code Description Data Maria Esther rce(s) Supporting Document(s) POC NOVA GLU 175 mg/dL (70-99) H [facility] [place] [facility]FOR[facility] CLINICAL STAFF ID Date Data Source [id number] 05/15/2020 01:47:40 PM EST [facility] Name Value Range Interpretation Code Description Data Maria Esther rce(s) Supporting Document(s) POC NOVA GLU 168 mg/dL (70-99) H [facility] [place] [facility] CLINICAL STAFF ID Date Data Source [id number] 05/15/2020 11:00:00 AM EST [facility] Name Value Range Interpretation Code Description Data Maria Esther rce(s) Supporting Document(s) Triglycerides 66 [facility] ([facility] Cholesterol 79 0-200 [facility]) HDL 50 [facility] Cholesterol in LDL [Mass/volume] in Serum or Plasma by calculation 16 [facility] ([facility]) Chol/HDL Ratio 1.6 [facility]) ID Date Data Source [id number] 05/15/2020 01:05:55 PM EST [facility] Name Value Range Interpretation Code Description Data Maria Esther rce(s) Supporting Document(s) APTT 41.1 s (22.0-34.3) H [facility] ID Date Data Source [id number] 05/15/2020 10:34:[address] [facility] NT INFORMATIONPatient MRN Name Date of Age Gend*PT [id number] Dulce Rodas 1945 74 years F IPPT Location Admission Date/Time Visit ID Attending [id number] 05/14/20 1900 --- Naveed Muse MD([id number]) EPI ID CSN Admitting Provider [id number] Fletcher Barba MD([id number])Name: Dulce Ferreira DruMRN:[id number]: [id number]: 05/15/2020Time: 10:20 AMReason for Consultation:Referring Physician:SUBJECTIVE: Pt seen and examined. Alert and awake in NAD. SR on monitor.Notes reviewed in [facility]. MAR reviewed on 05/15/2020 at 10:20 AM. [id number]-[id number] past medical history significant for history of [...] Onset Diabetes type II Mother Myocardial Infarction (LA) Mother Heart disease Father Myocardial Infarction (LA) Father Myocardial Infarction (LA) Brother Age 59 Myocardial Infarction (LA) Brother age 46 Heart attack Sister age [...] file Gets together: Not on file Attends spiritism service: Not on file Active member of [...] disease) Diastolic heart failure Falls frequentlyNon-ST elevation LA: Probably demand ischemia in the setting of [...] call us back.SHAREE Murphy MD, FACC, FASE, FASCO110:20 AMThis document or parts of this document, were dictated using [employer]. A reasonable attempt at proofreading has been made to minimize errors.Please call with any questions or corrections Name Value Range Interpretation Code Description Data Maria Esther rce(s) Supporting Document(s) ID Date Data Source [id number] 05/15/2020 09:33:34 AM EST [facility] Name Value Range Interpretation Code Description Data Maria Esther rce(s) Supporting Document(s) POC NOVA GLU 171 mg/dL (70-99) H [facility] [facility] [place] PERFORMED BY [facility] CLINICAL STAFF ID Date Data Source [id number] 05/15/2020 08:52:06 AM EST [address] [address]Fsgjeaj Name: DULCE RODASDOB: 1945Sex: FOrdering Provider: YURI CHURCHuthyaima Prov: YURI WILLETTARefergayle Provider: Procedure Performed: XR CHEST PORTABLEExam Date: 05/14/2020 21:22MRN: [id number] Number: [id number] Class: InpatientAccount #: [id number] for Exam: chest painTechnique: AP portable view obtained.Comparison: 10/12/2019Findings: Aortic calcifications are noted. Mediastinal contours are distorted by projection and shallow inspiration. Costophrenic angles are sharp. Pulmonary vasculature is crowded.IMPRESSION: There is no evidence of heart failure or pneumonia.Report electronically signed by: MIKA LEHMAN On 05/15/2020 8:52 AMWorkstation ID: [id number] Name Value Range Interpretation Code Description Data Maria Esther rce(s) Supporting Document(s) ID Date Data Source [id number] 05/15/2020 04:18:10 AM EST [facility] Name Value Range Interpretation Code Description Data Maria Esther rce(s) Supporting Document(s) SODIUM 140 mmol/L (136-145) [facility] POTASSIUM 3.6 mmol/L (3.6-5.2) [facility] CHLORIDE 103 mmol/L (100-108) [facility] CO2 28 mmol/L (22-31) [facility] ANION GAP 9 mmol/L (7-16) [facility] UREA NITROGEN 42 mg/dL (7-24) H [facility] CREATININE 1.77 mg/dL (0.60-1.00) H [facility] BUN/CREAT RATIO 23.7 RATIO (10.0-20.0) [facility] GLUCOSE 148 mg/dL (70-99) H [facility] CALCIUM 8.8 mg/dL (8.4-10.2) [facility] GFR 28 ml/min/1.73m2 (>59) L [facility] GFR ( AMER) 34 ml/min/1.73m2 (>59) L [facility] GFR INTERPRETATION [facility] --NORMAL KIDNEY FUNCTION OR MILD DISEASE - GFR >OR= 60CHRONIC KIDNEY DISEASE - GFR 15 - 59RENAL FAILURE - GFR <15 Est. GFR calculation based on the MDRDstudy equation, which assumes a steadystate for creatinine. Est. GFR should notbe used for medication dosing. ID Date Data Source [id number] 05/15/2020 03:27:07 AM EST [facility] Name Value Range Interpretation Code Description Data [facility] Supporting Document(s) APTT 52.4 s (22.0-34.3) H [facility] ID Date Data Source [id number] 05/15/2020 03:16:21 AM EST [facility] Name Value Range Interpretation Code Description Data Maria Esther rce(s) Supporting Document(s) WBC 6.7 10*3/uL (4.1-11.0) [facility] [place] RBC 2.98 10*6/uL (4.00-5.40) L [facility] HGB 9.3 g/dL (12.0-16.0) L [facility] HCT 26.6 % (36.0-47.0) L [facility] MCV 89.3 fL (80.0-95.0) [facility] MCH 31.3 pg (27.0-32.0) [facility] MCHC 35.0 g/dL (32.0-36.0) [facility] RDW 15.4 % (10.5-14.5) H [facility] PLT 191 10*3/uL (150-450) [facility] MPV 9.1 fL (7.1-10.7) [facility] ID Date Data Source [id number] 05/15/2020 01:03:47 AM EST [facility] NT INFORMATIONPatient MRN Name Date of Age Gend*PT [id number] Dulce Rodas 1945 74 years F IPPT Location Admission Date/Time Visit ID Attending [id number] 05/14/201899 --- Naveed Muse MD([id number]) EPI ID CSN Admitting Provider [id number] Fletcher Barba MD([id number]) Attestation signed by Fletcher Barba MD at 05/15/2020 1:03 AMDOS: 05/14/2020I saw and evaluated the patient and reviewed steam setter note. I agree with thehistory, physical and medical decision making with the following additio ns,exceptions, and/or observations. ADMISSION HISTORY AND PHYSICALName: Dulce Rodas Gender: femaleDate of : 1945 Age: 74 yearsDate/Time of Admit: 05/14/2020 7:00 PM Code Status: Full CodePrimary Care Provider / Referring Physician: Samantha Carneyformant:Current HistoryChief Complaint: Patient transfers from [facility] with non-STEMIHPI:This patient is a 74 years [...] of hyperlipidemia, T2DM, hypertension,GERD, who transfers from [facility] with non-STEMI.Patient was admitted to H November 25, 2019 with upper GI bleed. [...] nitro prior to arrival to ED in [facility].Work-up in [facility] included the following:Chest x-ray revealed diffuse bilateral interstitial infiltratesCOVID- 19 test negativeBP was elevated 226/99WBC 9, H&H 9.5 and 31, platelets 206, BUN and creatinine 39 and 1.24, , potassium 5.0, troponin 0.23-0.23, NT proBNP 2904.EKG sinus rhythm with occasional PVCs, TIBC, nonspecific T wave abnormalityPatient was treated with nitroglycerin ointment 0.5 then 1 g. Given gbqflsigd16 mg IV once and diuresed 2 L. Started on heparin infusion. She was given 12and half milligrams tablet of carvedilol once.[facility] transferred [facility] for further evaluation and cardiac catheterizationCardiologist: Dr. [...] Onset Diabetes type II Mother Myocardial Infarction (LA) Mother Heart disease Father Myocardial Infarction (LA) Father Myocardial Infarction (LA) Brother Age 59 Myocardial Infarction (LA) Brother age 46 Heart attack Sister age [...] file Gets together: Not on file Attends spiritism service: Not on file Active member of [...] CAD, diabeticneuropathy, hypertension, PVD who transfers from [facility] with non- STEMI.NSTEMI (non-ST elevated myocardial infarction)Troponin in [facility] was 0.23- 0.23EKG on admission sinus rhythm with frequent PVCs, ST depression and T waveinversion in anterior leadsPresently patient is comfortable and offers no anginal complaintsBP is stable 154/67 and 158/65 although remains elevated it has improved ascompared to SBPs greater than 200 and [facility] infusion for full anticoagulationTrend troponin until [...] kidney diseaseShe is scheduled to see a farm equipment operator May 21reatinine in [facility] was 1.24MonitorFallShe has had a few mechanical [...] rce(s) Supporting Document(s) ID Date Data Source [id number] 05/15/2020 10:13:56 AM EST [facility] Name Value Range Interpretation Code Description Data [facility] rce(s) Supporting Document(s) CHOLESTEROL @ 79 mg/dL (0-200) [facility] TRIGLYCERIDE @ 66 mg/dL (30-200) [facility] HDL CHOLESTEROL @ 50 mg/dL (>40) [facility] PER NCEP ATP III GUIDELINES:RESULTS LOWE R THAN 40 MG/DL ARE SUGGESTIVEOF INCREASED RISK FOR CORONARY ARTERYDISEASE. RESULTS > OR = TO 60 MG/DL ARECONSIDERED A NEGATIVE RISK FACTOR. CHOL/HDL RATIO 1.6 RATIO [facility] INTERPRETATION OF CHOL-HDL RATIO CHD RISK FEMALE MALEVERY HIGH >8.3 >14.3HIGH 5.6- 8.3 6.7- 14.3AVERAGE 3.7- 5.6 4.0- 6.7BELOW AVERAGE 2.5- 3.7 2.7- 4.0PROTECTED <2.5 <2.7 LDL CHOL (CALC) 16 mg/dL (<130) [facility] PER NCEP ATP III GUIDELINES: OPTIMAL < 100 NEAR OPTIMAL 100 - 129BORDERLINE HIGH 130 - 159 HIGH 160 - 189 VERY HIGH > 189 ID Date Data Source [id number] 05/14/2020 10:17:15 PM EST [facility] Name Value Range Interpretation Code Description Data Maria Esther rce(s) Supporting Document(s) TSH,ULTRASENSITIVE @ 1.431 mIU/L (0.360-4.170) [facility] [place] PERFORMED AT [address] [place] [address] N [address] [id number] ID Date Data Source [id number] 05/14/2020 10:17:15 PM EST [facility] Name Value Range Interpretation Code Description Data Maria Esther rce(s) Supporting Document(s) TROPONIN I 0.45 ng/mL (<0.05) H [facility] Goodwin Less than 0.05: Myocardial injury unlike lyGreater than or equal to 0.05: Highly suggestive of myocardial injuryCorrelation with rise and/or fall ofserial troponins, clinical symptomsand ECG changes is necessary. ID Date Data Source [id number] 05/14/2020 10:17:15 PM EST [facility] Name Value Range Interpretation Code Description Data Maria Esther rce(s) Supporting Document(s) NT PRO BNP 5984 pg/mL (0-125) [facility] ID Date Data Source [id number] 05/14/2020 10:17:15 PM EST [facility] Name Value Range Interpretation Code Description Data Maria Esther rce(s) Supporting Document(s) SODIUM 138 mmol/L (136-145) [facility] POTASSIUM 3.7 mmol/L (3.6-5.2) [facility] CHLORIDE 104 mmol/L (100-108) [facility] CO2 26 mmol/L (22-31) [facility] ANION GAP 8 mmol/L (7-16) [facility] UREA NITROGEN 36 mg/dL (7-24) H [facility] CREATININE 1.26 mg/dL (0.60-1.00) H [facility] BUN/CREAT RATIO 28.6 RATIO (10.0-20.0) [facility] GLUCOSE 97 mg/dL (70-99) [facility] CALCIUM 9.2 mg/dL (8.4-10.2) [facility] TOTAL PROTEIN 7.1 g/dL (6.4-8.2) [facility] ALBUMIN 3.7 g/dL (3.2-4.5) [facility] GLOBULIN 3.4 g/dL (2.7-4.3) [facility] ALB/GLOB RATIO 1.1 RATIO [facility] ALKALINE PHOSPHATASE 51 U/L (45-117) [facility] BILIRUBIN,TOTAL 0.6 mg/dL (0.0-1.0) [facility] PLEASE NOTE:Total bilirubin results may be falselyelevated in patients taking Eltrombopag. AST (SGOT) 17 U/L (11-39) [facility] ALT (SGPT) 16 U/L (12-78) [facility] GFR 42 ml/min/1.73m2 (>59) L [facility] GFR ( AMER) 51 ml/min/1.73m2 (>59) L [facility] GFR INTERPRETATION [facility] --NORMAL KIDNEY FUNCTION OR MILD DISEASE - GFR >OR= 60CHRONIC KIDNEY DISEASE - GFR 15 - 59RENAL FAILURE - GFR <15 Est. GFR calculation based on the MDRDstudy equation, which assumes a steadystate for creatinine. Est. GFR should notbe used for medication dosing. ID Date Data Source [id number] 05/14/2020 10:11:13 PM EST [facility] SPEC EXP DATE 05/17/2020ATI ENT ABO/Rh A POSITIVEANTIBODY SCREEN NEGATIVETESTING SITE PERFORMED AT [address] [place], [place] [address]BLOOD BANK COMMENT BLOOD TYPE CONFIRMED. Name Value Range Interpretation Code Description Data Maria Esther rce(s) Supporting Document(s) TYPE AND SCREEN [facility] PATIENT ABO/Rh A POSITIVE ID Date Data Source [id number] 05/14/2020 10:10:23 PM EST [facility] Name Value Range Interpretation Code Description Data Maria Esther rce(s) Supporting Document(s) MAGNESIUM 1.9 mg/dL (1.7-2.4) [facility] ID Date Data Source [id number] 05/14/2020 09:25:52 PM EST [facility] Name Value Range Interpretation Code Description Data Maria Esther rce(s) Supporting Document(s) APTT >150.0 s (22.0-34.3) [facility] PERFORMED BY ALTERNATE METHOD. REFERENCE RANGE = 24.7 - 33.3ALERTED CRITICAL RESULT TOMIKE (52561)/D5 EXT 37819 AT 2123 ON 05/14/20 [place] [address] ID Date Data Source [id number] 05/14/2020 08:17:36 PM EST [facility] Name Value Range Interpretation Code Description Data Maria Esther rce(s) Supporting Document(s) WBC 7.7 10*3/uL (4.1-11.0) [facility] [place] RBC 3.38 10*6/uL (4.00-5.40) L [facility] HGB 10.4 g/dL (12.0-16.0) L [facility] HCT 30.2 % (36.0-47.0) L [facility] MCV 89.4 fL (80.0-95.0) [facility] MCH 30.7 pg (27.0-32.0) [facility] MCHC 34.4 g/dL (32.0-36.0) [facility] RDW 15.1 % (10.5-14.5) H [facility] Y PLT 217 10*3/uL (150-450) [facility] MPV 8.8 fL (7.1-10.7) [facility] ID Date Data Source [id number] 05/14/2020 11:36:00 AM EST [facility] Name Value Range Interpretation Code Description Data Maria Esther rce(s) Supporting Document(s) SARS-CoV-2 (COVID 19) NEGATIVE - SARS-CoV-2 (COVID19) [facility] This lab was ordered by [facility] a nd reported by [facility]. ID Date Data Source [id number] [id number] 05/11/2020 12:00:00 AM EST eCW1 ([facility]) Name Value Range Interpretation Code Description Data Maria Esther rce(s) Supporting Document(s) 1.9 1.8-2.4 MAGNESIUM LEVEL eCW1 (Replaced by [facility]) ID Date Data Source [id number] 04/23/2020 07:03:00 PM EST [facility] Patient: DULCE RODAS Observa tion Report - Physicians/Mid Levels Hospital.VisitID: [id number] [place] [address] [phone], FRegistration Date/Time: 04/23/2020 13:27 Weight:58.9 kg (S). [...] rce(s) Supporting Document(s) ID Date Data Source [id number] 04/23/2020 03:32:00 PM EST [facility] TSYSORDER [id number] Name Value Range Interpretation Code Description Data Maria Esther rce(s) Supporting Document(s) MAGNESIUM 1.2 mg/dL 1.8-2.4 L [facility] ID Date Data Source [id number] 04/23/2020 03:17:00 PM [facility] TSYSORDER [id number] Name Value Range Interpretation Code Description Data Maria Esther rce(s) Supporting Document(s) GLUCOSE 156 mg/dL 74-106 H [facility] BLOOD UREA NITROGEN 21 mg/dL 7-18 H [facility] ital CREATININE 1.10 mg/dL 0.6-1.0 H [facility] SODIUM 135 mmol/L 136-145 L [facility] POTASSIUM 4.3 mmol/L 3.5-5.1 [facility] CHLORIDE 95 mmol/L 98-107 L [facility] CO2 24 mmol/L 21-32 [facility] CALCIUM 9.0 mg/dL 8.5-10.1 [facility] ANION GAP 16.0 mmol/L 5-12 H [facility] GLOMERULAR FILTRATION RATE 49 mL/min [facility] GFR IS CALCULATED IN mL/min/1.73m2 MALINDA L FUNCTION: >90MILDLY DECREASED: 60-89MILDY TO MODERATELY DECREASED: 45-59 MODERATELY TO SEVERELY DECREASED: 30-44SEVERELY DECREASED: 15-29RENAL FAILURE: <15 AST 26 U/L 15-37 [facility] ALT 23 U/L 12-78 [facility] ALKALINE PHOSPHATASE 56 U/L 46-116 [facility] pital TOTAL BILIRUBIN 0.7 mg/dL 0.2-1.0 [facility] TOTAL PROTEIN 7.8 g/dl 6.4-8.2 [facility] ALBUMIN 4.3 gm/dL 3.4-5.0 [facility] ID Date Data Source [id number] 04/23/2020 02:55:00 PM [facility] TSYSORDER [id number] Name Value Range Interpretation Code Description Data Maria Esther rce(s) Supporting Document(s) WHITE BLOOD COUNT 7.7 K/mm3 4.0-10.0 [facility] RED BLOOD COUNT 3.79 M/mm3 4.00-5.50 L [facility] HEMOGLOBIN 11.1 gm/dL 12.0-16.0 L [facility] HEMATOCRIT 34.7 % 36.0-48.8 L [facility] MEAN CELL VOLUME 91.6 fl 80-96 [facility] l MEAN CORPUSCULAR HEMOGLOBIN 29.3 pg 27.0-31.0 [facility] MEAN CORPUSCULAR HGB CONC 32.0 g/dl 32.0-36.0 [facility] RED CELL DISTRIBUTION WIDTH 14.8 % 10.0-14.5 H [facility] PLATELET COUNT 222 K/mm3 172-450 [facility] MEAN PLATELET VOLUME 10.2 fl 9.0-13.0 [facility] pital GRAN % 80.6 % 50-80.0 H [facility] IG% 0.3 % 0.0-0.2 H [facility] LYMPH % 13.1 % 25.0-50.0 L [facility] MONO % 4.8 % 2.0-10.0 [facility] EOS % 0.9 % 0-5.0 [facility] BASO % 0.3 % 0.0-2.0 [facility] GRAN # 6.2 K/mm3 2.0-8.00 [facility] IG# 0.0 K/mm3 0.0-0.2 [facility] LYMPH # 1.0 K/mm3 1.0-5.0 [facility] MONO # 0.4 K/mm3 0.10-1.20 [facility] EOS # 0.1 K/mm3 0.0-0.5 [facility] BASO # 0.0 K/mm3 0.0-0.2 [facility] ID Date Data Source [id number] 03/26/2020 11:45:00 AM EST [facility] Name Value Range Interpretation Code Description Data Maria Esther rce(s) Supporting Document(s) Iron (Fe) 57 ug/dL 50-170 [facility] Total Iron Binding Capacity 341 ug/dL 250-450 [facility] ([facility]) Percent Saturation 16.7 % 13.2-45.0 [facility] (Car [facility]) ID Date Data Source [id number] 03/26/2020 11:45:00 AM EST [facility] Name Value Range Interpretation Code Description Data Maria Esther rce(s) Supporting Document(s) Magnesium [Mass/volume] in Serum or Plasma 1.5 mg/dL 1.8-2.4 [facility] ([facility]) ID Date Data Source [id number] 03/26/2020 11:45:00 AM EST [facility]) Name Value Range Interpretation Code Description Data Maria Esther rce(s) Supporting Document(s) Glucose, Fasting 206 mg/dL 70-100 [facility] ([facility]i [facility]) Blood Urea Nitrogen 20 mg/dL 7-18 [facility] (Ca [facility]diology [facility]) Creatinine For GFR 1.22 mg/dL 0.55-1.30 [facility] ([facility]) Glomerular Filtration Rate 46.1 MED ENT ([facility]) <content>Units are mL/min/1.73 m2</content>
<content></content>
<content>Chronic Kidney Disease Staging per NKF:</content>
<content></content>
<content>Stage I & II GFR >=60 Normal to Mildly Decreased</content>
<content>Stage III GFR 30- 59 Moderately Decreased</content>
<content>Stage IV GFR 15-29 Severely Decreased</content>
<content>Stage V GFR <15 Very Little GFR Left</content>
<content>ESRD GFR <15 on HEALTH FACILITIES SURVEYOR</content>
<content></content> Sodium Level 137 meq/L 136-145 [facility] ([facility]) Potassium Serum 4.4 meq/L 3.5-5.1 [facility] ([facility]io [facility]y [facility]) Carbon Dioxide Level 22 meq/L 21-32 [facility] (C ardi[facility]) Chloride Level 106 meq/L 98-107 [facility] ([facility]iol [facility]) Anion Gap 9 meq/L 8-16 [facility] ([facility]) Calcium Level 9.1 mg/dL 8.8-10.2 [facility] ([facility]) Ast/Sgot 21 U/L 7-37 [facility] ([facility]) Alt/SGPT 22 U/L 12-78 [facility] Alkaline Phosphatase 75 U/L 45-117 [facility] ([facility]di[facility]) Bilirubin,Total 0.4 mg/dL 0.2-1.0 [facility] Total Protein 6.7 GM/DL 6.4-8.2 [facility]) Albumin 3.5 GM/DL 3.2-5.2 [facility] Albumin/Globulin Ratio 1.1 1.2-2.2 [facility]) ID Date Data Source [id number] 03/26/2020 11:45:00 AM EST [facility] ([facility]) Name Value Range Interpretation Code Description Data Maria Esther rce(s) Supporting Document(s) White Blood Count 8.3 10 4.0-10.0 [facility] Red Blood Count 3.31 10 4.00-5.40 [facility] ([facility]) Hemoglobin 9.5 g/dL 12.0-15.5 [facility]) Hematocrit 31.6 % 36.0-47.0 [facility]) Mean Corpuscular Volume 95.5 fl 80.0-96.0 M EDENT ([facility]) Mean Corpuscular HGB Conc 30.1 g/dL 32.0-36.5 [facility] ([facility]) Mean Corpuscular Hemoglobin 28.7 pg 27.0-33.0 [facility]) Red Cell Distribution Width 15.3 % 11.5-14.5 [facility] ([facility]) Neutrophils % 72.5 % 36.0-66.0 [facility]) Platelet Count, Automated 317 10 150-450 [facility]) [place] % 7.2 % 0.0-5.0 [facility] (Cardiology A [...] 1.5-5.0 [facility] [place] # 0.6 10 0.0-0.8 [facility] Eos # 0.2 10 0.0-0.5 [facility] Baso # 0.0 10 0.0-0.2 [facility] ID Date Data Source [id number] 03/23/2020 03:06:00 PM EST [facility] In-Patient NoteNote:LABORATORY TEST REF ERRAL Dx: Atrial Fib with RVR, HYPOMAGNESEMIA LABS:CBC with Diff. Iron ProfileCMPMagnesium Please send the result to [facility] in [place] and Dr Hernández's office. Name Value Range Interpretation Code Description Data [facility] rce(s) Supporting Document(s) ID Date Data Source [id number] 03/23/2020 06:20:00 AM EST [facility] [...] Name Value Range Interpretation Code Description Data [facility] Document(s) ID Date Data Source [id number] 03/23/2020 06:17:00 AM EST [facility] [...] rce(s) Supporting Document(s) ID Date Data Source [id number] 03/25/2020 11:53:00 AM EST [facility] Name Value Range Interpretation Code Description Data Maria Esther rce(s) Supporting Document(s) [facility] ID Date Data Source [id number] 03/23/2020 01:58:00 AM EST [facility] TSYSORDER [id number] Name Value Range Interpretation Code Description Data Maria Esther rce(s) Supporting Document(s) URINE RBC 1-3 /hpf 0-3 [facility] URINE WBC 3-5 /hpf 0-5 [facility] URINE EPITHELIAL CELLS 1+ /hpf 0 [facility] ospital URINE BACTERIA 2+ NONE SEEN [facility] URINE CULTURE ORDERED ID Date Data Source [id number] 03/23/2020 01:47:00 AM EST [facility] ital TSYSORDER [id number] Name Value Range Interpretation Code Description Data [facility] rce(s) Supporting Document(s) URINE COLOR. [facility] URINE APPEARANCE CLEAR [facility] l URINE GLUCOSE (UA) NEGATIVE mg/dL NEGATIVE [facility] URINE BILIRUBIN NEGATIVE NEGATIVE [facility] URINE KETONE NEGATIVE mg/dL NEGATIVE [facility] SPECIFIC GRAVITY,URINE 1.020 1.001-1.035 [facility] URINE BLOOD NEGATIVE NEGATIVE [facility] PH,URINE 5.5 5.0-9.0 [facility] URINE PROTEIN 2+(100) mg/dL NEGATIVE [facility] al URINE UROBILINOGEN NORMAL(0.2-1) mg/dL 0-1 [facility] URINE NITRATE NEGATIVE NEGATIVE [facility] URINE LEUKOCYTE ESTERASE 1+(SMALL) NEGATIVE Located Within [facility] ID Date Data Source [id number] 03/22/2020 10:49:00 PM EST [facility] Name Value Range Interpretation Code Description Data Maria Esther rce(s) Supporting Document(s) COVID-19 [facility] This lab was ordered by [facility] monserrat Lab and reported by [facility] Laboratory. ID Date Data Source [id number] 03/22/2020 11:21:00 PM EST [facility] TSYSORDER [id number] Name Value Range Interpretation Code Description Data Maria Esther rce(s) Supporting Document(s) COVID-19 NEGATIVE NEGATIVE [facility] Negative results should be treated as pr [...] are for the indentification of SARS-CoV-2 RNA. YypTBXC-IlZ-3 RNA is generally detectable in respiratorysamples during the actue phase of infection. ID Date Data Source [id number] 03/22/2020 11:10:00 PM EST [facility] T[facility] [id number] Name Value Range Interpretation Code Description Data Maria Esther rce(s) Supporting Document(s) PHOSPHOROUS 2.8 mg/dL 2.5-4.9 [facility] ID Date Data Source [id number] 03/22/2020 09:31:00 PM [facility] TSYSORDER [id number] Name Value Range Interpretation Code Description Data Maria Esther rce(s) Supporting Document(s) MAGNESIUM 1.2 mg/dL 1.8-2.[address] [facility] ID Date Data Source [id number] 03/22/2020 09:31:00 PM EST [facility] TSYSORDER [id number] Name Value Range Interpretation Code Description Data Maria Esther rce(s) Supporting Document(s) TROPONIN I 0.052 ng/mL 0.0-0.056 [facility] ID Date Data Source [id number] 03/22/2020 09:31:00 PM EST [facility] TSYSORDER [id number] Name Value Range Interpretation Code Description Data Maria Esther rce(s) Supporting Document(s) LIPASE 82 U/L 73-393 [facility] ID Date Data Source [id number] 03/22/2020 09:31:00 PM [facility] l TSYSORDER [id number] Name Value Range Interpretation Code Description Data Maria Esther rce(s) Supporting Document(s) GLUCOSE 126 mg/dL 74-106 H [facility] BLOOD UREA NITROGEN 13 mg/dL 7-18 [facility] ital CREATININE 1.1 mg/dL 0.6-1.0 H [facility] SODIUM 134 mmol/L 136-145 L [facility] POTASSIUM 3.5 mmol/L 3.5-5.1 [facility] CHLORIDE 98 mmol/L 98-107 [facility] CO2 22 mmol/L 21-32 [facility] CALCIUM 9.4 mg/dL 8.5-10.1 [facility] ANION GAP 14.0 mmol/L 5-12 H [facility] GLOMERULAR FILTRATION RATE 49 mL/min [facility] GFR IS CALCULATED IN mL/min/1.73m2 MALINDA L FUNCTION: >90MILDLY DECREASED: 60-89MILDY TO MODERATELY DECREASED: 45-59 MODERATELY TO SEVERELY DECREASED: 30-44SEVERELY DECREASED: 15-29RENAL FAILURE: <15 AST 23 U/L 15-37 [facility] ALT 17 U/L 12-78 [facility] ALKALINE PHOSPHATASE 69 U/L 46-116 [facility] pital TOTAL BILIRUBIN 0.7 mg/dL 0.2-1.0 [facility] TOTAL PROTEIN 7.6 g/dl 6.4-8.2 [facility] ALBUMIN 3.5 gm/dL 3.4-5.0 [facility] ID Date Data Source [id number] 03/22/2020 09:29:00 PM [facility] l TSYSORDER [id number] Name Value Range Interpretation Code Description Data Maria Esther rce(s) Supporting Document(s) PARTIAL THROMBOPLASTIN TIME 23.6 SECONDS 21.2-27.3 [facility] ID Date Data Source [id number] 03/22/2020 09:29:00 PM [facility] l TSYSORDER [id number] Name Value Range Interpretation Code Description Data Maria Esther rce(s) Supporting Document(s) PROTHROMBIN TIME (PATIENT) 11.0 SECONDS 9.1-11.6 [facility] INR 1.06 0.87-1.06 [facility] ID Date Data Source [id number] 03/22/2020 09:04:00 PM EST [facility] TSYSORDER [id number] Name Value Range Interpretation Code Description Data Maria Esther rce(s) Supporting Document(s) WHITE BLOOD COUNT 9.1 K/mm3 4.0-10.0 [facility]LOOD COUNT 3.47 M/mm3 4.00-5.50 L [facility] l HEMOGLOBIN 10.2 gm/dL 12.0-16.0 L [facility] HEMATOCRIT 30.8 % 36.0-48.8 L [facility] MEAN CELL VOLUME 88.8 fl 80-96 [facility] MEAN CORPUSCULAR HEMOGLOBIN 29.4 pg 27.0-31.0 [facility] MEAN CORPUSCULAR HGB CONC 33.1 g/dl 32.0-36.0 [facility] RED CELL DISTRIBUTION WIDTH 14.9 % 10.0-14.5 H [facility] PLATELET COUNT 287 K/mm3 172-450 [facility] MEAN PLATELET VOLUME 9.9 fl 9.0-13.0 [facility] pital GRAN % 82.1 % 50-80.0 H [facility] IG% 0.3 % 0.0-0.2 H [facility] LYMPH % 9.4 % 25.0-50.0 L [facility] MONO % 5.9 % 2.0-10.0 [facility] EOS % 2.2 % 0-5.0 [facility] BASO % 0.1 % 0.0-2.0 [facility] GRAN # 7.4 K/mm3 2.0-8.00 [facility] IG# 0.0 K/mm3 0.0-0.2 [facility] LYMPH # 0.9 K/mm3 1.0-5.0 L [facility] MONO # 0.5 K/mm3 0.10-1.20 [facility] EOS # 0.2 K/mm3 0.0-0.5 [facility] BASO # 0.0 K/mm3 0.0-0.2 [facility] ID Date Data Source [id number] 03/22/2020 09:16:00 AM EST [facility] ([facility]) Name Value Range Interpretation Code Description Data Maria Esther rce(s) Supporting Document(s) Albumin [Mass/volume] in Serum or Plasma 3.5 [facility] ([facility]) Alanine aminotransferase [Enzymatic activity/volume] in Serum or Pl asma 17 [facility] ([facility]) Calcium [Mass/volume] in Serum or Plasma 9.4 [facility] ([facility]) Carbon dioxide, total [Moles/volume] in Serum or Plasma 22 [facility] ([facility]) Chloride [Moles/volume] in Serum or Plasma 98 [facility] ([facility]) Potassium [Moles/volume] in Serum or Plasma 3.5 [facility] ([facility]) Alkaline phosphatase [Enzymatic activity/volume] in Serum or Plasma 6 9 [facility] ([facility]) Sodium 134 [facility] ([facility] Protein [Mass/volume] in Serum or Plasma 7.6 [facility] ([facility]) Aspartate aminotransferase [Enzymatic activity/volume] in Serum or Plasma 23 [facility] ([facility]) Urea nitrogen [Mass/volume] in Serum or Plasma 13 [facility] ([facility]) Glucose 126 74-106 [facility] ([facility]) Creatinine For GFR 1.1 [facility] ([facility]) ID Date Data Source [id number] 03/22/2020 09:16:00 AM EST [facility] ([facility]) Name Value Range Interpretation Code Description Data Maria Esther rce(s) Supporting Document(s) White Blood Count 9.1 4.0-10.0 [facility] ([facility]) Red Blood Count 3.47 4.00-5.50 [facility] ([facility]) Platelets 287 172-450 [facility] ([facility] Hemoglobin 10.2 12.0-16.0 [facility] ([facility]) Hematocrit 30.8 36.0-48.8 [facility] ([facility]) ID Date Data Source [id number] 03/14/2020 09:29:00 AM [facility] [...] e(s) Supporting Document(s) ID Date Data Source [id number] 03/14/2020 09:29:00 AM EST [facility] [...] rce(s) Supporting Document(s) ID Date Data Source [id number] 03/14/2020 09:29:00 AM EST [facility] [...] rce(s) Supporting Document(s) ID Date Data Source [id number] 03/14/2020 03:39:00 AM EST [facility] Patient: DULCE RODAS Sona tienma Report - [facility].VisitID: [id number] [place] [address] [phone], FRegistration Date/Time: 03/13/2020 21:40 Weight:58.9 kg (S). Height/Length:62 inches (S). BMI:23.8 FAMILY HISTORYNo significant family medical history. (Electronically signed by Patricia Quesada M.D. 03/14/2020 03:14) Name Value Range Interpretation Code Description Data Maria Esther rce(s) Supporting Document(s) ID Date Data Source [id number] 03/13/2020 10:27:00 PM EST [facility] TSYSORDER [id number] Name Value Range Interpretation Code Description Data Maria Esther rce(s) Supporting Document(s) GLUCOSE 163 mg/dL 74-106 H [facility] BLOOD UREA NITROGEN 36 mg/dL 7-18 H [facility] ital CREATININE 1.5 mg/dL 0.6-1.0 H [facility] SODIUM 137 mmol/L 136-145 [facility] POTASSIUM 4.6 mmol/L 3.5-5.1 [facility] CHLORIDE 101 mmol/L 98-107 [facility] CO2 23 mmol/L 21-32 [facility] CALCIUM 8.7 mg/dL 8.5-10.1 [facility] ANION GAP 13.0 mmol/L 5-12 H [facility] GLOMERULAR FILTRATION RATE 34 mL/min [facility] GFR IS CALCULATED IN mL/min/1.73m2 MALINDA L FUNCTION: >90MILDLY DECREASED: 60-89MILDY TO MODERATELY DECREASED: 45-59 MODERATELY TO SEVERELY DECREASED: 30-44SEVERELY DECREASED: 15-29RENAL FAILURE: <15 AST 19 U/L 15-37 [facility] ALT 17 U/L 12-78 [facility] ALKALINE PHOSPHATASE 54 U/L 46-116 [facility] pital TOTAL BILIRUBIN 0.3 mg/dL 0.2-1.0 [facility] TOTAL PROTEIN 6.7 g/dl 6.4-8.2 [facility] ALBUMIN 3.6 gm/dL 3.4-5.0 [facility] ID Date Data Source [id number] 03/13/2020 10:27:00 PM [facility] TSYSORDER [id number] Name Value Range Interpretation Code Description Data Maria Esther rce(s) Supporting Document(s) TROPONIN I 0.027 ng/mL 0.0-0.056 [facility] ID Date Data Source [id number] 03/13/2020 10:03:00 PM EST [facility] TSYSORDER [id number] Name Value Range Interpretation Code Description Data Maria Esther rce(s) Supporting Document(s) WHITE BLOOD COUNT 5.1 K/mm3 4.0-10.0 [facility] RED BLOOD COUNT 2.94 M/mm3 4.00-5.50 [facility] HEMOGLOBIN 8.6 gm/dL 12.0-16.0 L [facility] HEMATOCRIT 27.5 % 36.0-48.8 L [facility] MEAN CELL VOLUME 93.5 fl 80-96 [facility] l MEAN CORPUSCULAR HEMOGLOBIN 29.3 pg 27.0-31.0 [facility] MEAN CORPUSCULAR HGB CONC 31.3 g/dl 32.0-36.0 L [facility] RED CELL DISTRIBUTION WIDTH 14.7 % 10.0-14.5 H [facility] PLATELET COUNT 199 K/mm3 172-450 [facility] MEAN PLATELET VOLUME 10.4 fl 9.0-13.0 [facility] pital GRAN % 67.1 % 50-80.0 [facility] IG% 0.6 % 0.0-0.2 H [facility] LYMPH % 20.2 % 25.0-50.0 L [facility] MONO % 8.4 % 2.0-10.0 [facility] EOS % 3.5 % 0-5.0 [facility] BASO % 0.2 % 0.0-2.0 [facility] GRAN # 3.4 K/mm3 2.0-8.00 [facility] IG# 0.0 K/mm3 0.0-0.2 [facility] LYMPH # 1.0 K/mm3 1.0-5.0 [facility] MONO # 0.4 K/mm3 0.10-1.20 [facility] EOS # 0.2 K/mm3 0.0-0.5 [facility] BASO # 0.0 K/mm3 0.0-0.2 [facility] ID Date Data Source [id number] 03/11/2020 06:38:00 PM EST [facility] Patient: DULCE RODAS tienma Report - [facility].VisitID: [id number] [place] [address] [phone], FRegistration Date/Time: 03/11/2020 12:02 Weight:63.5 kg (S). [...] rce(s) Supporting Document(s) ID Date Data Source [id number] 03/11/2020 01:14:00 PM [facility] [...] rce(s) Supporting Document(s) ID Date Data Source [id number] 03/11/2020 01:12:00 PM EST [facility] [...] rce(s) Supporting Document(s) ID Date Data Source [id number] 03/11/2020 01:11:00 PM EST [facility] [...] rce(s) Supporting Document(s) ID Date Data Source [id number] 03/11/2020 01:11:00 PM EST [facility] [...] (BMP) 02/26/2020 08:00:08 AM EST eCW 1 ([facility]) Name Value Range Interpretation Code Description Data Maria Esther rce(s) Supporting Document(s) 124 GLUCOSE, FASTING eCW1 ([facility]) 1.24 CREATININE FOR GFR eCW1 ([facility]) 21 BLOOD UREA NITROGEN eCW1 ([facility]) 135 SODIUM LEVEL eCW1 ([facility]) 45.3 GLOMERULAR FILTRATION RATE eCW 1 ([facility]) 4.7 POTASSIUM SERUM eCW1 ([facility]placed by [facility]) 103 CHLORIDE LEVEL eCW1 ([facility]) 21 CARBON DIOXIDE LEVEL eCW1 ([facility]) 9.6 CALCIUM LEVEL eCW1 ([facility]) ID Date Data Source [id number] 02/25/2020 01:00:00 PM EST [facility] ([facility]) Name Value Range Interpretation Code Description Data Maria Esther rce(s) Supporting Document(s) Magnesium Level 1.6 1.8-2.4 [facility] ([facility]) ID Date Data Source [id number] 02/25/2020 01:00:00 PM EST [facility] ([facility]) Name Value Range Interpretation Code Description Data Maria Esther rce(s) Supporting Document(s) Carbon dioxide, total [Moles/volume] in Serum or Plasma 21 [facility] ([facility]) Sodium 135 [facility] ([facility] Calcium [Mass/volume] in Serum or Plasma 9.6 [facility] ([facility]) Potassium [Moles/volume] in Serum or Plasma 4.7 [facility] ([facility]) Chloride [Moles/volume] in Serum or Plasma 103 [facility] ([facility]) Glucose 124 70-100 [facility] Glomerular filtration rate/1.73 sq M.pre dicted [Volume Rate/Area] in Serum or Plasma by Creatinine-based formula (MDRD) 45.3 [facility] ([facility]) Blood Urea Nitrogen 21 7-18 [facility] ([facility]) Creatinine 1.24 0.55-1.30 [facility] ([facility]) ID Date Data Source [id number] 01/21/2020 12:16:00 PM EDT [facility] ([facility]) Name Value Range Interpretation Code Description Data Maria Esther rce(s) Supporting Document(s) Magnesium Level 1.5 1.8-2.4 [facility] ([facility]) ID Date Data Source [id number] 01/21/2020 12:16:00 PM EDT [facility] ([facility]) Name Value Range Interpretation Code Description Data Maria Esther rce(s) Supporting Document(s) Sodium 134 [facility] ([facility] Carbon dioxide, total [Moles/volume] in Serum or Plasma 23 [facility] ([facility]) Calcium [Mass/volume] in Serum or Plasma 9.2 [facility] ([facility]) Chloride [Moles/volume] in Serum or Plasma 101 [facility] ([facility]) Glucose 199 70-100 [facility] ([facility]) Potassium [Moles/volume] in Serum or Plasma 4.2 [facility] ([facility]) Blood Urea Nitrogen 25 7-18 [facility] ([facility]) Creatinine 1.24 0.55-1.30 [facility] ([facility]) Glomerular filtration rate/1.73 sq M.pre dicted [Volume Rate/Area] in Serum or Plasma by Creatinine-based formula (MDRD) 45.3 [facility] ([facility]) ID Date Data Source [id number] 01/12/2020 11:27:00 AM EDT [facility] ([facility]) Name Value Range Interpretation Code Description Data Maria Esther rce(s) Supporting Document(s) Carbon dioxide, total [Moles/volume] in Serum or Plasma 27 [facility] ([facility]) Sodium 136 [facility] ([facility]) Calcium [Mass/volume] in Serum or Plasma 8.6 [facility] ([facility]) Potassium [Moles/volume] in Serum or Plasma 4.4 [facility] ([facility]) Glucose 113 70-100 [facility] ([facility]) Chloride [Moles/volume] in Serum or Plasma 104 [facility] ([facility]) Glomerular filtration rate/1.73 sq M.pre dicted [Volume Rate/Area] in Serum or Plasma by Creatinine-based formula (MDRD) 36.3 [facility] ([facility]) Blood Urea Nitrogen 26 7-18 [facility] ([facility]) Creatinine 1.50 0.55-1.30 [facility] ([facility]) ID Date Data Source [id number] 01/08/2020 12:26:50 PM EDT [facility] Name Value Range Interpretation Code Description Data Maria Esther rce(s) Supporting Document(s) Progress Note [facility] [id number] [facility] [file] [id number] Procedure Social History Code Duration Value Status Description Data Source(s ) Smoking 02/15/2021 12:00:00 AM EDT Former Smoker completed Former Smoker eCW1 ([facility]) Smoking 01/13/2021 12:00:00 AM EDT Former Smoker completed Former Smoker eCW1 ([facility]) Smoking 01/13/2021 12:00:00 AM EDT Former Smoker completed Former Smoker eCW1 ([facility]) Smoking 12/08/2020 12:00:00 AM EDT Patient is a former smoker completed Patient is a former smoker [facility] ([facility]) Smoking 11/24/2020 12:00:00 AM EDT Former Smoker completed Former Smoker eCW1 ([facility]) Smoking 11/24/2020 12:00:00 AM EDT Former Smoker completed Former Smoker eCW1 ([facility]) Smoking 11/24/2020 12:00:00 AM EDT Former Smoker completed Former Smoker eCW1 ([facility]) Smoking 11/24/2020 12:00:00 AM EDT Former Smoker completed Former Smoker eCW1 ([facility]) Smoking 11/24/2020 12:00:00 AM EDT Former Smoker completed Former Smoker eCW1 ([facility]) Smoking 10/21/2020 12:00:00 AM EDT Former Smoker completed Former Smoker eCW1 ([facility]) Smoking 10/21/2020 12:00:00 AM EDT Former Smoker completed Former Smoker eCW1 ([facility]) Smoking 10/21/2020 12:00:00 AM EDT Former Smoker completed Former Smoker eCW1 ([facility]) Smoking 09/29/2020 12:00:00 AM EDT Former Smoker completed Former Smoker eCW1 ([facility]) Smoking 09/29/2020 12:00:00 AM EDT Former Smoker completed Former Smoker eCW1 ([facility]) Smoking 09/29/2020 12:00:00 AM EDT Former Smoker completed Former Smoker eCW1 ([facility]) Smoking 09/07/2020 12:00:00 AM EDT Patient is a former smoker completed Patient is a former smoker [facility] ([facility] ) Smoking 09/01/2020 12:00:00 AM EDT Former Smoker completed Former Smoker eCW1 ([facility]) Smoking 09/01/2020 12:00:00 AM EDT Former Smoker completed Former Smoker eCW1 ([facility]) Smoking 09/01/2020 12:00:00 AM EDT Former Smoker completed Former Smoker eCW1 ([facility]) Smoking 08/03/2020 12:00:00 AM EDT Former Smoker completed Former Smoker eCW1 ([facility]) Alcohol intake 06/16/2020 12:00:00 AM EST Ex-drinker (finding) comp leted Ex- drinker (finding) [facility] Tobacco use and exposure 06/16/2020 12:00:00 AM EST Never used co mpleted Never used [facility] Smoking 06/16/2020 12:00:00 AM EST Former smoker completed Former smoker [facility] Smoking 2020 12:00:00 AM EST Former Smoker completed Former Smoker eCW1 ([facility]) Smoking 2020 12:00:00 AM EST Former Smoker completed Former Smoker eCW1 ([facility]) Smoking 2020 12:00:00 AM EST Former Smoker completed Former Smoker eCW1 ([facility]) Smoking 2020 12:00:00 AM EST Former Smoker completed Former Smoker eCW1 ([facility]) Smoking 2020 12:00:00 AM EST Former Smoker completed Former Smoker eCW1 ([facility]) Smoking 2020 12:00:00 AM EST Former Smoker completed Former Smoker eCW1 ([facility]) Smoking 2020 12:00:00 AM EST Former Smoker completed Former Smoker eCW1 ([facility]) Smoking 2020 12:00:00 AM EST Former Smoker completed Former Smoker eCW1 ([facility]) Smoking 05/24/2020 12:00:00 AM EST Former Smoker completed Former Smoker eCW1 ([facility]) Smoking 05/24/2020 12:00:00 AM EST Former Smoker completed Former Smoker eCW1 ([facility]) Smoking 05/24/2020 12:00:00 AM EST Former Smoker completed Former Smoker eCW1 ([facility]) Smoking 05/24/2020 12:00:00 AM EST Former Smoker completed Former Smoker eCW1 ([facility]) Alcohol intake 05/16/2020 12:00:00 AM EST Not Currently completed [facility] Cigarette pack-years 05/16/2020 12:00:00 AM EST UNK completed [facility] Cigarettes smoked current (pack per day) - Reported 05/16/19 12:00:00 AM EST UNK completed [facility] Smoking 05/16/2020 12:00:00 AM EST Former smoker completed Former smoker [facility] Smoking 05/11/2020 12:00:00 AM EST Former Smoker completed Former Smoker eCW1 ([facility]) Smoking 05/11/2020 12:00:00 AM EST Former Smoker completed Former Smoker eCW1 ([facility]) Smoking 04/12/2020 12:00:00 AM EST Former Smoker completed Former Smoker eCW1 ([facility]) Smoking 04/12/2020 12:00:00 AM EST Former Smoker completed Former Smoker eCW1 ([facility]) Smoking 04/12/2020 12:00:00 AM EST Former Smoker completed Former Smoker eCW1 ([facility]) Smoking 04/12/2020 12:00:00 AM EST Former Smoker completed Former Smoker eCW1 ([facility]) Smoking 04/12/2020 12:00:00 AM EST Former Smoker completed Former Smoker eCW1 ([facility]) Smoking 03/16/2020 12:00:00 AM EST Former Smoker completed Former Smoker eCW1 ([facility]) Smoking 03/16/2020 12:00:00 AM EST Former Smoker completed Former Smoker eCW1 ([facility]) Smoking 03/16/2020 12:00:00 AM EST Former Smoker completed Former Smoker eCW1 ([facility]) Smoking 02/25/2020 12:00:00 AM EST Former Smoker completed Former Smoker eCW1 ([facility]) Smoking 02/25/2020 12:00:00 AM EST Former Smoker completed Former Smoker eCW1 ([facility]) Vital Signs ID Date Data Source UNK Name Value Range Interpretation Code Description Data Source(s) Body weight 55.97 kg 55.97 kg eCW1 ([facility]) Body weight 123.4 [lb_av] 123.4 [lb_av] eCW1 ([facility]) Body mass index (BMI) [Ratio] 24.10 kg/m2 24.10 kg/m2 eCW1 ([facility]) Body height 60 [in_i] 60 [in_i] eCW1 ([facility]) Systolic blood pressure 126 mm[Hg] 126 mm[Hg] e CW1 ([facility]) Heart rate 73 /min 73 /min eCW1 (Replaced by [facility]) Diastolic blood pressure 58 mm[Hg] 58 mm[Hg] eCW1 ([facility]) Respiratory rate 20 /min 20 /min eCW1 (Replaced by [facility]) Body temperature 98.7 [degF] 98.7 [degF] eCW1 ( [facility]) Body mass index (BMI) [Ratio] 22.1 kg/m2 22.1 k g/m2 [facility] ([facility]) Body weight 129.00 [lb_av] 129.00 [lb_av] MEDEN T ([facility]) Body height 64 [in_i] 64 [in_i] [facility] ([facility]) 5'4" Body temperature 98.6 [degF] 98.6 [degF] eCW1 ( [facility]) Body weight 131.4 [lb_av] 131.4 [lb_av] eCW1 ([facility]) Systolic blood pressure 102 mm[Hg] 102 mm[Hg] e CW1 ([facility]) Body weight 59.6 kg 59.6 kg eCW1 ([facility]) Body height 60 [in_i] 60 [in_i] eCW1 ([facility]) Diastolic blood pressure 58 mm[Hg] 58 mm[Hg] eCW1 ([facility]) Body mass index (BMI) [Ratio] 25.66 kg/m2 25.66 kg/m2 eCW1 ([facility]) Heart rate 76 /min 76 /min eCW1 (Replaced by [facility]) Respiratory rate 18 /min 18 /min eCW1 (Replaced by [facility]) Body weight 131 [lb_av] 131 [lb_av] eCW1 ([facility]) Body height 60 [in_i] 60 [in_i] eCW1 ([facility]) Body mass index (BMI) [Ratio] 25.58 kg/m2 25.58 kg/m2 eCW1 ([facility]) Heart rate 73 /min 73 /min eCW1 (Replaced by [facility]) Respiratory rate 18 /min 18 /min eCW1 (Replaced by [facility]) Body temperature 98.5 [degF] 98.5 [degF] eCW1 ( [facility]) Systolic blood pressure 127 mm[Hg] 127 mm[Hg] e CW1 ([facility]) Diastolic blood pressure 70 mm[Hg] 70 mm[Hg] eCW1 ([facility]) Body weight 130.4 [lb_av] 130.4 [lb_av] eCW1 ([facility]) Body height 60 [in_i] 60 [in_i] eCW1 ([facility]) Body mass index (BMI) [Ratio] 25.46 kg/m2 25.46 kg/m2 eCW1 ([facility]) Heart rate 77 /min 77 /min eCW1 (Replaced by [facility]) Respiratory rate 18 /min 18 /min eCW1 (Replaced by [facility]) Body temperature 98.3 [degF] 98.3 [degF] eCW1 ( [facility]) Systolic blood pressure 112 mm[Hg] 112 mm[Hg] e CW1 ([facility]) Diastolic blood pressure 58 mm[Hg] 58 mm[Hg] eCW1 ([facility]) Systolic blood pressure 122 mm[Hg] 122 mm[Hg] M EDENT ([facility], ) Diastolic blood pressure 69 mm[Hg] 69 mm[Hg] MEDENT ([facility], ) Heart rate 79 /min 79 /min MEDENT ([facility], ) Body height 61 [in_i] 61 [in_i] MEDENT ([facility]) 5'1" Body weight 130.50 [lb_av] 130.50 [lb_av] MEDEN T ([facility]) Body mass index (BMI) [Ratio] 24.7 kg/m2 24.7 k g/m2 [facility] ([facility]) [place] body weight 105 [lb_av] 105 [lb_av] MEDEN T ([facility]) Body weight 59.195 kg 59.195 kg [facility] ([facility]) Body surface area Derived from formula 1.58 m2 1.58 m2 [facility] ([facility]) Body weight 130 [lb_av] 130 [lb_av] eCW1 ([facility]) Body height 60 [in_i] 60 [in_i] eCW1 ([facility]) Body mass index (BMI) [Ratio] 25.39 kg/m2 25.39 kg/m2 eCW1 ([facility]) Heart rate 78 /min 78 /min eCW1 (Replaced by [facility]) Respiratory rate 18 /min 18 /min eCW1 (Replaced by [facility]) Body temperature 98.8 [degF] 98.8 [degF] eCW1 ( [facility]) Systolic blood pressure 143 mm[Hg] 143 mm[Hg] e CW1 ([facility]) Diastolic blood pressure 66 mm[Hg] 66 mm[Hg] eCW1 ([facility]) Systolic blood pressure 126 mm[Hg] 126 mm[Hg] M EDENT ([facility]) sitting Body weight 131.00 [lb_av] 131.00 [lb_av] MEDEN T ([facility]) Body height 64 [in_i] 64 [in_i] MEDENT ([facility] 5'4" Body mass index (BMI) [Ratio] 22.5 kg/m2 22.5 k g/m2 MEDENT ([facility]) Systolic blood pressure 126 mm[Hg] 126 mm[Hg] M EDENT ([facility]) sitting, regular cuff Diastolic blood pressure 76 mm[Hg] 76 mm[Hg] [facility]ENT [facility] sitting, regular cuff Heart rate 72 /min 72 /min MEDENT ([facility]) Regular Respiratory rate 16 /min 16 /min MEDENT ( [facility]) Diastolic blood pressure 74 mm[Hg] 74 mm[Hg] MEDENT ([facility]) sitting Body weight 130 [lb_av] 130 [lb_av] eCW1 ([facility]) Body height 60 [in_i] 60 [in_i] eCW1 ([facility]) Respiratory rate 16 /min 16 /min eCW1 (Replaced by [facility]) Body temperature 98.3 [degF] 98.3 [degF] eCW1 ( [facility]) Systolic blood pressure 133 mm[Hg] 133 mm[Hg] e CW1 ([facility]) Body mass index (BMI) [Ratio] 25.39 kg/m2 25.39 kg/m2 eCW1 ([facility]) Diastolic blood pressure 70 mm[Hg] 70 mm[Hg] eCW1 ([facility]) Heart rate 70 /min 70 /min eCW1 (Replaced by [facility]) Diastolic blood pressure 62 mm[Hg] 62 mm[Hg] [facility] Body weight 132.00 [lb_av] 132.00 [lb_av] MEDEN T ([facility], ) Body mass index (BMI) [Ratio] 24.9 kg/m2 24.9 k g/m2 [facility] ([facility], ) [place] body weight 105 [lb_av] 105 [lb_av] MEDEN T ([facility], ) Body weight 59.875 kg 59.875 kg [facility] ([facility], ) Body surface area Derived from formula 1.58 m2 1.58 m2 [facility] ([facility], ) Systolic blood pressure 116 mm[Hg] 116 mm[Hg] M EDENT ([facility], ) Body height 61 [in_i] 61 [in_i] MEDENT ([facility], ) 5'1" Body weight 136 [lb_av] 136 [lb_av] eCW1 ([facility]) Body height 60 [in_i] 60 [in_i] eCW1 ([facility]) Body mass index (BMI) [Ratio] 26.56 kg/m2 26.56 kg/m2 eCW1 ([facility]) Heart rate 70 /min 70 /min eCW1 (Replaced by [facility]) Respiratory rate 16 /min 16 /min eCW1 (Replaced by [facility]) Body temperature 98.5 [degF] 98.5 [degF] eCW1 ( [facility]) Systolic blood pressure 158 mm[Hg] 158 mm[Hg] e CW1 ([facility]) Diastolic blood pressure 73 mm[Hg] 73 mm[Hg] eCW1 ([facility]) Body weight 131.6 [lb_av] 131.6 [lb_av] eCW1 ([facility]) Body height 60 [in_i] 60 [in_i] eCW1 ([facility]) Body mass index (BMI) [Ratio] 25.70 kg/m2 25.70 kg/m2 eCW1 ([facility]) Systolic blood pressure--sitting 102 mm[Hg] 102 mm[Hg] MEDENT ([facility]) Ra, regular cuff Diastolic blood pressure--sitting 52 mm[Hg] 52 mm[Hg] MEDENT ([facility]) Ra, regular cuff Systolic blood pressure--standing 98 mm[Hg] 98 mm[Hg] MEDENT ([facility]) Ra Diastolic blood pressure--standing 50 mm[Hg] 5 0 mm[Hg] MEDENT ([facility]) Ra Body weight 129.00 [lb_av] 129.00 [lb_av] MEDEN T ([facility]) Body height 64 [in_i] 64 [in_i] MEDENT ([facility]) 5'4" Body mass index (BMI) [Ratio] 22.1 kg/m2 22.1 k g/m2 MEDENT ([facility]) Heart rate 68 /min 68 /min MEDENT ([facility]) Regular Respiratory rate 16 /min 16 /min MEDENT ( [facility]) Respiratory rate 18 /min 18 /min eCW1 (Replaced by [facility]) Body temperature 97.8 [degF] 97.8 [degF] eCW1 ( [facility]) Systolic blood pressure 92 mm[Hg] 92 mm[Hg] e CW1 ([facility]) Diastolic blood pressure 60 mm[Hg] 60 mm[Hg] eCW1 ([facility]) Body weight 130 [lb_av] 130 [lb_av] eCW1 ([facility]) Body height 60 [in_i] 60 [in_i] eCW1 ([facility]) Body mass index (BMI) [Ratio] 25.39 kg/m2 25.39 kg/m2 [facility] ([facility]) Heart rate 72 /min 72 /min eCW1 (Replaced by [facility]) Systolic blood pressure 140 mm[Hg] 140 mm[Hg] [facility] Diastolic blood pressure 64 mm[Hg] 64 mm[Hg] [facility] Heart rate 80 /min 80 /min [facility] Body temperature 36.89 Maris 36.89 Maris [facility] Respiratory rate 18 /min 18 /min [facility] Oxygen saturation in Arterial blood by Pulse oximetry 94 % 94 % [facility] Body height 157.5 cm 157.5 cm [facility] Body weight 59.421 kg 59.421 kg [facility] Body mass index (BMI) [Ratio] 23.96 kg/m2 23.96 kg/m2 [facility] Body weight 130 [lb_av] 130 [lb_av] eCW1 ([facility]) Body height 60 [in_i] 60 [in_i] eCW1 ([facility]) Body mass index (BMI) [Ratio] 25.39 kg/m2 25.39 kg/m2 W1 ([facility]) Heart rate 86 /min 86 /min eCW1 (Replaced by [facility]) Respiratory rate 18 /min 18 /min eCW1 (Replaced by [facility]) Body temperature 97.9 [degF] 97.9 [degF] eCW1 ( [facility]) Systolic blood pressure 98 mm[Hg] 98 mm[Hg] e CW1 ([facility]) Diastolic blood pressure 50 mm[Hg] 50 mm[Hg] eCW1 ([facility]) Body height 64 [in_i] 64 [in_i] MEDENT ([facility]) 5'4" Body weight 134.00 [lb_av] 134.00 [lb_av] MEDEN T ([facility]) Respiratory rate 16 /min 16 /min MEDENT ( [facility]) Body mass index (BMI) [Ratio] 23.0 kg/m2 23.0 k g/m2 MEDENT ([facility]) Heart rate 84 /min 84 /min MEDENT ([facility]) Regular Systolic blood pressure 112 mm[Hg] 112 mm[Hg] M EDENT ([facility]) sitting, regular cuff Diastolic blood pressure 74 mm[Hg] 74 mm[Hg] MEDENT ([facility]) sitting, regular cuff Body height 60 [in_i] 60 [in_i] eCW1 ([facility]) Body weight 130 [lb_av] 130 [lb_av] eCW1 ([facility]) Body mass index (BMI) [Ratio] 25.39 kg/m2 25.39 kg/m2 eCW1 ([facility]) Systolic blood pressure 104 mm[Hg] 104 mm[Hg] e CW1 ([facility]) Heart rate 75 /min 75 /min eCW1 (Replaced by [facility]) Diastolic blood pressure 58 mm[Hg] 58 mm[Hg] eCW1 ([facility]) Respiratory rate 166 /min 166 /min eCW1 (Replaced by [facility]) Body temperature 98.1 [degF] 98.1 [degF] eCW1 ( [facility]) Body weight 138 [lb_av] 138 [lb_av] eCW1 ([facility]) Body height 60 [in_i] 60 [in_i] eCW1 ([facility]) Body mass index (BMI) [Ratio] 26.95 kg/m2 26.95 kg/m2 eCW1 ([facility]) Heart rate 83 /min 83 /min eCW1 (Replaced by [facility]) Respiratory rate 18 /min 18 /min eCW1 (Replaced by [facility]) Body temperature 97.0 [degF] 97.0 [degF] eCW1 ( [facility]) Systolic blood pressure 102 mm[Hg] 102 mm[Hg] e CW1 ([facility]) Diastolic blood pressure 54 mm[Hg] 54 mm[Hg] eCW1 ([facility]) Body weight 129.00 [lb_av] 129.00 [lb_av] MEDEN T ([facility]) Diastolic blood pressure 60 mm[Hg] 60 mm[Hg] MEDENT ([facility]) sitting Body height 64 [in_i] 64 [in_i] MEDENT ([facility]) 5'4" Body mass index (BMI) [Ratio] 22.1 kg/m2 22.1 k g/m2 MEDENT ([facility]) Heart rate 76 /min 76 /min MEDENT ([facility]) Regular Respiratory rate 16 /min 16 /min MEDENT ( [facility]) Systolic blood pressure 102 mm[Hg] 102 mm[Hg] M EDENT ([facility]) sitting, regular cuff Diastolic blood pressure 62 mm[Hg] 62 mm[Hg] MEDENT ([facility]) sitting, regular cuff Systolic blood pressure 102 mm[Hg] 102 mm[Hg] M EDENT ([facility]) sitting Body weight 129 [lb_av] 129 [lb_av] eCW1 ([facility]) Body height 60 [in_i] 60 [in_i] eCW1 ([facility]) Body mass index (BMI) [Ratio] 25.19 kg/m2 25.19 kg/m2 eCW1 ([facility]) Heart rate 88 /min 88 /min eCW1 (Replaced by [facility]) Respiratory rate 18 /min 18 /min eCW1 (Replaced by [facility]) Body temperature 97.6 [degF] 97.6 [degF] eCW1 ( [facility]) Systolic blood pressure 94 mm[Hg] 94 mm[Hg] e CW1 ([facility]) Diastolic blood pressure 50 mm[Hg] 50 mm[Hg] eCW1 ([facility]) Systolic blood pressure 102 mm[Hg] 102 mm[Hg] M EDENT ([facility]) Diastolic blood pressure 64 mm[Hg] 64 mm[Hg] MEDENT ([facility]) Body height 60 [in_i] 60 [in_i] [facility] ([facility]) 5'0" Body surface area Derived from formula 1.55 m2 1.55 m2 [facility] ([facility]) Body weight 129.00 [lb_av] 129.00 [lb_av] [facility] Body weight 58.514 kg 58.514 kg [facility] ([facility]) Body mass index (BMI) [Ratio] 25.2 kg/m2 25.2 k g/m2 [facility] ([facility]) [place] body weight 100 [lb_av] 100 [lb_av] [facility] ID Date Data Source [id number] 01/08/2020 12:26:50 PM EDT [facility] Name Value Range Interpretation Code Description Data Source(s) WEIGHT RECORDED 128 lb 128 lb [facility] Body height Measured 62 in 62 in [facility] Patient Treatment Plan of Care Planned Activity Planned Date Details Description Data Source (s) fidaxomicin 200 MG Oral Tablet [Dificid] 10/30/2020 12:00:00 AM EDT [facility] ([facility]) Insulin Syringe-Needle U-100 31G X 5/16" 0.5 ML 10/21/2020 12:00:00 AM EDT [facility] ([facility]) Glucagon 1 MG Injection 10/21/2020 12:00:00 AM EDT [facility] ([facility]) Insulin Syringe-Needle U-100 31G X 5/16" 0.5 ML 10/21/2020 12:00:00 AM EDT eCW1 ([facility]) Glucagon 1 MG Injection 10/21/2020 12:00:00 AM EDT eCW1 ([facility]) Glucagon 1 MG Injection 10/21/2020 12:00:00 AM EDT eCW1 ([facility]) Insulin Syringe-Needle U-100 31G X 5/16" 0.5 ML 10/21/2020 12:00:00 AM EDT eCW1 ([facility]) Bacid - 09/01/2020 12:00:00 AM EDT e CW1 ([facility]) Amoxicillin 875 MG / Clavulanate 125 MG Oral Tablet 09/02/19 21 12:00:00 AM EDT eCW1 ([facility]) Bacid - 09/01/2020 12:00:00 AM EDT e CW1 ([facility]) Amoxicillin 875 MG / Clavulanate 125 MG Oral Tablet 09/02/19 21 12:00:00 AM EDT eCW1 ([facility]) Bacid - 09/01/2020 12:00:00 AM EDT e CW1 ([facility]) Amoxicillin 875 MG / Clavulanate 125 MG Oral Tablet 09/02/19 21 12:00:00 AM EDT eCW1 ([facility]) FreeStyle Jaquan 14 Day [place] - 07/05/2020 12:00:00 AM EDT eCW1 ([facility]) FreeStyle Jaquan 14 Day [place] - 07/05/2020 12:00:00 AM EDT eCW1 ([facility]) FreeStyle Jaquan 14 Day [place] - 07/05/2020 12:00:00 AM EDT eCW1 ([facility]) Glipizide 5 MG Oral Tablet 05/16/2020 12:00:00 AM EST [facility] Acetaminophen 325 MG / Hydrocodone Bitartrate 10 MG Or al Tablet 03/16/2020 12:00:00 AM EST eCW1 ([facility]) Acetaminophen 325 MG / Hydrocodone Bitartrate 10 MG Or al Tablet 03/16/2020 12:00:00 AM EST eCW1 ([facility]) Omeprazole 20 MG Delayed Release Oral Capsule 01/22/2020 12:00:00 A M EDT eCW1 ([facility]) Omeprazole 20 MG Delayed Release Oral Capsule 01/22/2020 12:00:00 A M EDT eCW1 ([facility]) Omeprazole 20 MG Delayed Release Oral Capsule 01/22/2020 12:00:00 A M EDT eCW1 ([facility]) pantoprazole 40 MG Delayed Release Oral Tablet 11/26/2019 12:00:00 AM EDT [facility] Metformin hydrochloride 1000 MG Oral Tablet 10/15/2019 12:00:00 AM EDT [facility] Metformin hydrochloride 1000 MG Oral Tablet 10/15/2019 12:00:00 AM EDT [facility] Metformin hydrochloride 1000 MG Oral Tablet [facility] insulin detemir 100 UNT/ML Injectable Solution [facility] 3 ML liraglutide 6 MG/ML Pen Injector [facility]
--- NOTE | 2021-02-18 13:22 | REP ---
INDICATION: fall vs syncope. COMPARISON: 11/04/2019. TECHNIQUE: CT brain performed in the axial plane. Coronal reconstruction images are performed. FINDINGS: There is mild atrophy. There is no midline shift or edema. There are scattered hemorrhagic contusions in the bifrontal regions peripherally, as well as in the bilateral parietal and left occipital regions. There is no subdural hemorrhage. There is no herniation. There is no skull fracture. There are bilateral basal ganglia calcifications. There are vascular calcifications in the carotid siphons. There is mild mucosal thickening in the left maxillary sinus. IMPRESSION: Several peripheral hemorrhagic contusions identified bilaterally. No subdural hemorrhage or skull fracture. Critical Findings: Bilateral hemorrhagic contusions in the brain. The critical information above was relayed directly by me by telephone to Dr.Phil Lassiter on 02/18/2021 at 1:15 pm with readback verification. <Electronically signed by Jovanny Zamora > 02/18/21 [id number]
--- NOTE | 2021-02-18 13:26 | REP ---
INDICATION: fall vs syncope. COMPARISON: None. TECHNIQUE: CT cervical spine performed in the axial plane, with sagittal and coronal reconstruction images performed. FINDINGS: There is no acute compression fracture or malalignment. There is no prevertebral soft tissue swelling. There is moderate spurring at C5 and C6. There is at least a mild degree of disc bulging at virtually all levels. There is normal cervical lordosis. There is no abnormal density in the spinal canal. IMPRESSION: No evidence of acute fracture or dislocation. <Electronically signed by Jovanny Zamora > 02/18/21 [id number]
[2021-02-18 13:30] LABS: HEMATOCRIT 36.9 % (36.0-47.0); HEMOGLOBIN 11.9 g/dl (12.0-15.5); MEAN CORPUSCULAR HEMOGLOBIN 28.8 pg (27.0-33.0); MEAN CORPUSCULAR HGB CONC 32.2 g/dl (32.0-36.5); MEAN CORPUSCULAR VOLUME 89.3 fl (80.0-96.0); PLATELET COUNT, AUTOMATED 234 10^3/uL (150-450); RED BLOOD COUNT 4.13 10^6/uL (4.00-5.40); WHITE BLOOD COUNT 8.3 10^3/uL (4.0-10.0)
[2021-02-18 14:04] LABS: CK-MB VALUE MASS 2.6 NG/ML (<3.6); CREATININE FOR GFR 1.09 MG/DL (0.55-1.30); GLOMERULAR FILTRATION RATE 52.4 (>39); MB/CK RELATIVE INDEX 3.1 (< OR =4); POTASSIUM SERUM 3.6 MEQ/L (3.5-5.1); TROPONIN I 0.02 NG/ML (< 0.10)
[2021-02-18] MEDS: ACETAMINOPHEN 325 MG TAB PO ONE (16:04)
[2021-02-18 16:58] LABS: RSV AMPLIFICATION NEGATIVE (NEGATIVE)
--- NOTE | 2021-02-18 19:07 | ECGEPIP ---
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
[2021-02-18 19:25] VITALS: BP 116/63
== END 2021-02-18 19:31 | disposition short-term general hospital (02) ==
LOC: M ED 12:15
DX: R55 Syncope and collapse (principal); I25.2 Old myocardial infarction; R94.31 Abnormal electrocardiogram [ECG] [EKG]; I13.0 Hypertensive heart and chronic kidney disease with heart failure and stage 1 through stage 4 chronic kidney disease, or unspecified chronic kidney disease; I25.10 Atherosclerotic heart disease of native coronary artery without angina pectoris; E78.5 Hyperlipidemia, unspecified; E11.9 Type 2 diabetes mellitus without complications; K21.9 Gastro-esophageal reflux disease without esophagitis; F41.9 Anxiety disorder, unspecified; Z79.4 Long term (current) use of insulin; Z79.82 Long term (current) use of aspirin; Z79.899 Other long term (current) drug therapy; Z95.1 Presence of aortocoronary bypass graft; Z98.890 Other specified postprocedural states; Z87.891 Personal history of nicotine dependence

== ENCOUNTER → 2021-02-24 | Outpatient (REF) | payer MEDICARE ==
[2021-02-24 16:11] LABS: BASO # 0.1 10^3/uL (0.0-0.2); BASO % 0.6 % (0.0-1.0); EOS # 0.1 10^3/uL (0.0-0.5); EOS % 0.7 % (0.0-3.0); HEMATOCRIT 37.2 % (36.0-47.0); HEMOGLOBIN 11.6 g/dl (12.0-15.5); LYMPH # 1.9 10^3/uL (1.5-5.0); MEAN CORPUSCULAR HEMOGLOBIN 28.4 pg (27.0-33.0); MEAN CORPUSCULAR HGB CONC 31.2 g/dl (32.0-36.5); MEAN CORPUSCULAR VOLUME 91.2 fl (80.0-96.0); MONO # 0.5 10^3/uL (0.0-0.8); MONO % 5.7 % (2.0-8.0); NEUTROPHILS # 6.1 10^3/uL (1.5-8.5); NEUTROPHILS % 70.3 % (36.0-66.0); PLATELET COUNT, AUTOMATED 263 10^3/uL (150-450); RED BLOOD COUNT 4.08 10^6/uL (4.00-5.40); WHITE BLOOD COUNT 8.6 10^3/uL (4.0-10.0)
[2021-02-24 16:45] LABS: ALBUMIN 3.6 GM/DL (3.2-5.2); BILIRUBIN,TOTAL 0.7 MG/DL (0.2-1.0); CALCIUM LEVEL 9.4 MG/DL (8.8-10.2); CREATININE FOR GFR 1.43 MG/DL (0.55-1.30); GLOMERULAR FILTRATION RATE 38.3 (>39); POTASSIUM SERUM 3.7 MEQ/L (3.5-5.1); TOTAL PROTEIN 7.1 GM/DL (6.4-8.2)
== END ==
LOC: M SFHCCLAY 11:56
PROVIDERS: ATTEND Nurse Practitioner Family
DX: R55 Syncope and collapse (principal); S06.339A Contusion and laceration of cerebrum, unspecified, with loss of consciousness of unspecified duration, initial encounter; R29.6 Repeated falls; I25.10 Atherosclerotic heart disease of native coronary artery without angina pectoris; E11.59 Type 2 diabetes mellitus with other circulatory complications; W18.30XA Fall on same level, unspecified, initial encounter; Y92.003 Bedroom of unspecified non-institutional (private) residence as the place of occurrence of the external cause; Y99.9 Unspecified external cause status
CPT/HCPCS: 80053; 85025; G0463

== ENCOUNTER → 2021-02-24 | Outpatient (REF) | payer MEDICARE ==
[2021-02-24 16:42] LABS: CALCIUM LEVEL 9.1 MG/DL (8.8-10.2); CREATININE FOR GFR 1.42 MG/DL (0.55-1.30); GLOMERULAR FILTRATION RATE 38.6 (>39); POTASSIUM SERUM 3.7 MEQ/L (3.5-5.1)
== END ==
LOC: M LAB REF 15:49
PROVIDERS: ATTEND Physician Assistant
DX: I50.32 Chronic diastolic (congestive) heart failure (principal); I25.10 Atherosclerotic heart disease of native coronary artery without angina pectoris

== ENCOUNTER → 2021-07-01 | Outpatient (CLI) | payer MEDICARE ==
[~2021-07-01] MED LIST changes: +OMEP-173 PO; -OMEP-218 PO
== END ==
LOC: M CLY 11:20
PROVIDERS: ATTEND Physician Assistant
DX: S29.9XXA Unspecified injury of thorax, initial encounter (principal); S49.91XA Unspecified injury of right shoulder and upper arm, initial encounter; W18.30XA Fall on same level, unspecified, initial encounter; Y92.009 Unspecified place in unspecified non-institutional (private) residence as the place of occurrence of the external cause; Y99.9 Unspecified external cause status

== ENCOUNTER → 2021-09-16 | Outpatient (REF) | payer MEDICARE ==
[2021-09-16 12:24] LABS: BASO # 0.1 10^3/uL (0.0-0.2); BASO % 0.9 % (0.0-1.0); EOS # 0.1 10^3/uL (0.0-0.5); HEMATOCRIT 37.5 % (36.0-47.0); HEMOGLOBIN 11.9 g/dl (12.0-15.5); LYMPH # 2.4 10^3/uL (1.5-5.0); LYMPH % 41.3 % (24.0-44.0); MEAN CORPUSCULAR HEMOGLOBIN 29.1 pg (27.0-33.0); MEAN CORPUSCULAR HGB CONC 31.7 g/dl (32.0-36.5); MEAN CORPUSCULAR VOLUME 91.7 fl (80.0-96.0); MONO # 0.4 10^3/uL (0.0-0.8); MONO % 7.2 % (2.0-8.0); NEUTROPHILS # 2.8 10^3/uL (1.5-8.5); NEUTROPHILS % 48.3 % (36.0-66.0); PLATELET COUNT, AUTOMATED 246 10^3/uL (150-450); RED BLOOD COUNT 4.09 10^6/uL (4.00-5.40); WHITE BLOOD COUNT 5.9 10^3/uL (4.0-10.0)
[2021-09-16 12:59] LABS: ALBUMIN 3.7 GM/DL (3.2-5.2); BILIRUBIN,TOTAL 0.4 MG/DL (0.2-1.0); CALCIUM LEVEL 9.9 MG/DL (8.8-10.2); CREATININE FOR GFR 1.31 MG/DL (0.55-1.30); FREE T4 0.7 NG/DL (0.76-1.46); GLOMERULAR FILTRATION RATE 42.3 (>39); MAGNESIUM LEVEL 2.5 MG/DL (1.8-2.4); POTASSIUM SERUM 4.1 MEQ/L (3.5-5.1); THYROID STIMULATING HORMONE 2.92 uIU/ML (0.358-3.740); TOTAL PROTEIN 7.2 GM/DL (6.4-8.2)
[2021-09-16 13:51] LABS: HEMOGLOBIN A1c 10.8 %
== END ==
LOC: M SFHCCLAY 08:57
PROVIDERS: ATTEND Nurse Practitioner Family
DX: I25.10 Atherosclerotic heart disease of native coronary artery without angina pectoris (principal); E11.59 Type 2 diabetes mellitus with other circulatory complications; I12.9 Hypertensive chronic kidney disease with stage 1 through stage 4 chronic kidney disease, or unspecified chronic kidney disease; N18.30 Chronic kidney disease, stage 3 unspecified; E83.42 Hypomagnesemia; R26.89 Other abnormalities of gait and mobility

== ENCOUNTER → 2021-11-29 | Outpatient (REF) | payer MEDICARE ==
[~2021-11-29] MED LIST changes: +FARX1TAB3 PO; +IRON65TA2 PO; +LEVE1INJ5 SC; +LOPR1TAB6 PO; +METO1TAB7 PO; +SUCR1TAB56 PO
== END ==
LOC: M LAB REF 16:20
PROVIDERS: ATTEND Podiatrist Foot & Ankle Surgery
DX: M86.272 Subacute osteomyelitis, left ankle and foot (principal)

== ENCOUNTER 2021-12-05 19:02 | Emergency (ER) | payer MEDICARE ==
[~2021-12-05] VITALS: Ht 157.5 cm; Wt 55.9 kg
[~2021-12-05 19:02] MED LIST changes: -FARX1TAB3 PO; -IRON65TA2 PO; -LEVE1INJ5 SC; -LOPR1TAB6 PO; -METO1TAB7 PO; -SUCR1TAB56 PO
[2021-12-05] MEDS ORDERED: CEPH500C PO (19:31)
[2021-12-05] MEDS ORDERED: IRON65TA2 PO (19:31)
[2021-12-05] MEDS ORDERED: FARX1TAB3 PO (19:31)
[2021-12-05] MEDS ORDERED: LOPR1TAB6 PO (19:31)
[2021-12-06 00:07] LABS: BASO % 0.4 % (0.0-1.0); EOS # 0.1 10^3/uL (0.0-0.5); EOS % 0.5 % (0.0-3.0); HEMATOCRIT 34.5 % (36.0-47.0); HEMOGLOBIN 11.1 g/dl (12.0-15.5); LYMPH # 2.1 10^3/uL (1.5-5.0); LYMPH % 21.1 % (24.0-44.0); MEAN CORPUSCULAR HEMOGLOBIN 28.2 pg (27.0-33.0); MEAN CORPUSCULAR HGB CONC 32.2 g/dl (32.0-36.5); MEAN CORPUSCULAR VOLUME 87.8 fl (80.0-96.0); MONO # 0.7 10^3/uL (0.0-0.8); NEUTROPHILS % 69.8 % (36.0-66.0); PLATELET COUNT, AUTOMATED 347 10^3/uL (150-450); RED BLOOD COUNT 3.93 10^6/uL (4.00-5.40)
[2021-12-06 01:10] VITALS: BP 138/63
[2021-12-06 01:11] LABS: RSV AMPLIFICATION NEGATIVE (NEGATIVE)
[2021-12-06 01:28] LABS: CALCIUM LEVEL 8.6 MG/DL (8.8-10.2); CREATININE FOR GFR 1.16 MG/DL (0.55-1.30); GLOMERULAR FILTRATION RATE 48.6 (>39); POTASSIUM SERUM 3.5 MEQ/L (3.5-5.1)
[2021-12-06] MEDS ORDERED: ACETAMINOPHEN TAB 650MG DOSE (2X325MG) PO ONE (01:35)
[2021-12-06] MEDS ORDERED: PROT1TAB2 PO (17:00)
[2021-12-06] MEDS ORDERED: SUCR1TAB56 PO (17:00)
[2021-12-06] MEDS ORDERED: LEVE1INJ5 SC (17:06)
[2021-12-06] MEDS ORDERED: METO1TAB7 PO (17:17)
== END 2021-12-06 02:00 | disposition home or self-care (01) ==
LOC: M ED 19:02
DX: L03.116 Cellulitis of left lower limb (principal); M86.8X7 Other osteomyelitis, ankle and foot; E11.9 Type 2 diabetes mellitus without complications; I10 Essential (primary) hypertension; I50.9 Heart failure, unspecified; E78.5 Hyperlipidemia, unspecified; I25.2 Old myocardial infarction; Z79.899 Other long term (current) drug therapy; Z79.82 Long term (current) use of aspirin; Z79.4 Long term (current) use of insulin

== ENCOUNTER 2021-12-06 14:10 | Inpatient (IN) | payer MEDICARE ==
[~2021-12-06] VITALS: Ht 157.5 cm; Wt 54.0 kg
[~2021-12-06 14:10] MED LIST changes: +FARX1TAB3 PO; +IRON65TA2 PO; +LOPR1TAB6 PO
[2021-12-06 15:15] VITALS: BP 153/62
[2021-12-06] MEDS ORDERED: GLUCAGON INJ 1MG VIAL SC PRN (15:50)
[2021-12-06] MEDS ORDERED: DEXTROSE 50% 50 ML SYRINGE IV PRN (15:50)
[2021-12-06] MEDS ORDERED: GLUCOSE 4GM CHEW TABLET PO PRN (15:50)
[2021-12-06] MEDS ORDERED: HEPARIN SOD (PORCINE) 5000UNITS/ML 1ML VIAL/SYRINGE SC SCH (15:50)
[2021-12-06] MEDS ORDERED: PROT1TAB2 PO (17:00)
[2021-12-06] MEDS ORDERED: SUCR1TAB56 PO (17:00)
[2021-12-06] MEDS ORDERED: LEVE1INJ5 SC (17:06)
[2021-12-06] MEDS ORDERED: METO1TAB7 PO (17:17)
[2021-12-06] MEDS ORDERED: HOME MED LIST COMPLETE! XX SCH (17:20)
[2021-12-06] MEDS: INSULIN LISPRO (NovoLOG) PER UNIT SC SCH ×2 (17:55→20:24)
[2021-12-06 18:00] VITALS: BP 123/54
[2021-12-06 18:27] LABS: BASO % 0.5 % (0.0-1.0); EOS # 0.1 10^3/uL (0.0-0.5); EOS % 0.6 % (0.0-3.0); HEMATOCRIT 32.7 % (36.0-47.0); HEMOGLOBIN 10.3 g/dl (12.0-15.5); LYMPH # 1.7 10^3/uL (1.5-5.0); LYMPH % 19.1 % (24.0-44.0); MEAN CORPUSCULAR HEMOGLOBIN 27.5 pg (27.0-33.0); MEAN CORPUSCULAR HGB CONC 31.5 g/dl (32.0-36.5); MEAN CORPUSCULAR VOLUME 87.4 fl (80.0-96.0); MONO # 0.6 10^3/uL (0.0-0.8); NEUTROPHILS # 6.4 10^3/uL (1.5-8.5); NEUTROPHILS % 72.2 % (36.0-66.0); PLATELET COUNT, AUTOMATED 313 10^3/uL (150-450); RED BLOOD COUNT 3.74 10^6/uL (4.00-5.40); WHITE BLOOD COUNT 8.9 10^3/uL (4.0-10.0)
[2021-12-06 18:31] LABS: INR 1.06; PARTIAL THROMBOPLASTIN TIME 30.6 SECONDS (25.9-37.0); PROTHROMBIN TIME 14.2 SECONDS (12.7-14.5)
[2021-12-06] MEDS: PIPERACILLIN/TAZOBACTAM SOD 4.5 GM in D5W MINI-BAG PLUS 50 ML IV SCH (18:37)
[2021-12-06] MEDS ORDERED: VANCOMYCIN HCL 1,000 MG, VIAL MATE ADAPTER 1 EACH in D5W 250 ML IV ONE (19:00)
[2021-12-06 19:14] LABS: CALCIUM LEVEL 9.1 MG/DL (8.8-10.2); CREATININE FOR GFR 1.36 MG/DL (0.55-1.30); GLOMERULAR FILTRATION RATE 40.5 (>39); POTASSIUM SERUM 3.6 MEQ/L (3.5-5.1)
[2021-12-06] MEDS: HEPARIN SOD (PORCINE) 5000UNITS/ML 1ML VIAL/SYRINGE SC SCH (20:17)
[2021-12-06] MEDS: GABAPENTIN 400MG CAP PO SCH (20:17)
[2021-12-06] MEDS: SUCRALFATE 1 GM TAB PO SCH (20:17)
[2021-12-06 21:43] VITALS: BP 124/52
[2021-12-07] VITALS (9 sets, daily range): BP systolic 117–141; BP diastolic 53–60
[2021-12-07] MEDS: PIPERACILLIN/TAZOBACTAM SOD 4.5 GM in D5W MINI-BAG PLUS 50 ML IV SCH ×3 (02:53→20:23)
[2021-12-07 06:20] LABS: BASO % 0.4 % (0.0-1.0); EOS # 0.1 10^3/uL (0.0-0.5); EOS % 0.7 % (0.0-3.0); HEMOGLOBIN 9.6 g/dl (12.0-15.5); LYMPH # 2.1 10^3/uL (1.5-5.0); LYMPH % 25.1 % (24.0-44.0); MEAN CORPUSCULAR HEMOGLOBIN 27.8 pg (27.0-33.0); MONO # 0.8 10^3/uL (0.0-0.8); MONO % 9.6 % (2.0-8.0); NEUTROPHILS # 5.2 10^3/uL (1.5-8.5); NEUTROPHILS % 63.7 % (36.0-66.0); PLATELET COUNT, AUTOMATED 287 10^3/uL (150-450); RED BLOOD COUNT 3.45 10^6/uL (4.00-5.40); WHITE BLOOD COUNT 8.2 10^3/uL (4.0-10.0)
[2021-12-07] MEDS: NS 1,000 ML IV SCH (06:31)
[2021-12-07 06:42] LABS: CALCIUM LEVEL 9.2 MG/DL (8.8-10.2); CREATININE FOR GFR 1.46 MG/DL (0.55-1.30); GLOMERULAR FILTRATION RATE 37.3 (>39); MAGNESIUM LEVEL 2.1 MG/DL (1.8-2.4); POTASSIUM SERUM 3.5 MEQ/L (3.5-5.1)
[2021-12-07] MEDS: INSULIN LISPRO (NovoLOG) PER UNIT SC SCH ×4 (07:30→20:22)
[2021-12-07] MEDS ORDERED: MIDAZOLAM INJ 2MG/2ML VIAL (J2250 PER 1MG) As Ordered ONE (08:37)
[2021-12-07] MEDS ORDERED: fentaNYL 100 MCG/2 ML INJECTION As Ordered ONE (08:37)
[2021-12-07] MEDS ORDERED: propofoL 200 MG/20 ML VIAL As Ordered ONE (08:37)
[2021-12-07] MEDS ORDERED: LIDOCAINE 2% 100MG/5ML SDV (FOR ANES.) As Ordered ONE (08:37)
[2021-12-07] MEDS ORDERED: ACETAMINOPHEN 1000MG 100ML IV BTL (OFIRMEV) (J0131 PER 10MG) As Ordered ONE (08:37)
[2021-12-07] MEDS ORDERED: BUPIVACAINE HCL 0.5% 30ML VIAL As Ordered ONE (08:56)
[2021-12-07] MEDS ORDERED: LIDOCAINE 1% MDV 20ML VIAL As Ordered ONE (08:56)
[2021-12-07] MEDS ORDERED: VANCOMYCIN HCL 750 MG, VIAL MATE ADAPTER 1 EACH in NS 250 ML IV SCH (09:00)
[2021-12-07] MEDS: HEPARIN SOD (PORCINE) 5000UNITS/ML 1ML VIAL/SYRINGE SC SCH ×2 (09:00→20:23)
[2021-12-07] MEDS ORDERED: ePHEDrine SULFATE 25 MG/5 ML(5MG/ML) SYRINGE As Ordered ONE (09:28)
[2021-12-07] MEDS ORDERED: PHENYLephrine 500MCG 5ML (100MCG/ML) SYRINGE As Ordered ONE (09:28)
[2021-12-07] MEDS ORDERED: fentaNYL 100 MCG/2 ML INJECTION IV PRN (09:40)
[2021-12-07] MEDS ORDERED: oxyCODONE 5MG TAB PO PRN (09:40)
[2021-12-07] MEDS ORDERED: ONDANSETRON 4MG 2ML VIAL IV PRN (09:40)
[2021-12-07] MEDS: ATORVASTATIN 20 MG TAB PO SCH (11:44)
[2021-12-07] MEDS: DULoxetine 30MG CAPSULE (CYMBALTA) PO SCH (11:44)
[2021-12-07] MEDS: SUCRALFATE 1 GM TAB PO SCH ×2 (11:46→18:36)
[2021-12-07] MEDS: METOPROLOL SUCC (TopROL XL) 50MG **XL** TAB PO SCH (11:46)
[2021-12-07] MEDS: ASPIRIN 81MG ENTERIC TABLET PO SCH (11:46)
[2021-12-07] MEDS: VANCOMYCIN HCL 1,000 MG, VIAL MATE ADAPTER 1 EACH in D5W 250 ML IV SCH (11:49)
[2021-12-07] MEDS: PANTOPRAZOLE 40MG TAB (PROTONIX) PO SCH (11:57)
[2021-12-07] MEDS ORDERED: TUBERCULIN PPD 5 UNITS/0.1 ML ID ONE (14:00)
[2021-12-07] MEDS: GABAPENTIN 400MG CAP PO SCH (20:23)
[2021-12-07] MEDS: ACETAMINOPHEN TAB 650MG DOSE (2X325MG) PO PRN (20:24)
[2021-12-08 02:00] VITALS: BP 131/53
[2021-12-08] MEDS: NS 1,000 ML IV SCH ×2 (04:56→15:10)
[2021-12-08] MEDS: PIPERACILLIN/TAZOBACTAM SOD 4.5 GM in D5W MINI-BAG PLUS 50 ML IV SCH ×3 (04:56→21:29)
[2021-12-08 05:24] VITALS: BP 146/61
[2021-12-08 06:30] LABS: BASO % 0.4 % (0.0-1.0); EOS # 0.1 10^3/uL (0.0-0.5); EOS % 0.9 % (0.0-3.0); HEMOGLOBIN 9.4 g/dl (12.0-15.5); LYMPH # 1.8 10^3/uL (1.5-5.0); LYMPH % 21.6 % (24.0-44.0); MEAN CORPUSCULAR HEMOGLOBIN 27.6 pg (27.0-33.0); MEAN CORPUSCULAR HGB CONC 31.3 g/dl (32.0-36.5); MEAN CORPUSCULAR VOLUME 88.2 fl (80.0-96.0); MONO # 0.6 10^3/uL (0.0-0.8); MONO % 7.1 % (2.0-8.0); NEUTROPHILS # 5.9 10^3/uL (1.5-8.5); NEUTROPHILS % 69.5 % (36.0-66.0); PLATELET COUNT, AUTOMATED 285 10^3/uL (150-450); WHITE BLOOD COUNT 8.5 10^3/uL (4.0-10.0)
[2021-12-08 07:01] LABS: CALCIUM LEVEL 8.6 MG/DL (8.8-10.2); CREATININE FOR GFR 1.33 MG/DL (0.55-1.30); GLOMERULAR FILTRATION RATE 41.5 (>39); POTASSIUM SERUM 3.8 MEQ/L (3.5-5.1)
[2021-12-08] MEDS: INSULIN LISPRO (NovoLOG) PER UNIT SC SCH ×4 (08:39→21:00)
[2021-12-08] MEDS: HEPARIN SOD (PORCINE) 5000UNITS/ML 1ML VIAL/SYRINGE SC SCH ×2 (08:40→21:30)
[2021-12-08] MEDS: SUCRALFATE 1 GM TAB PO SCH ×2 (08:41→18:42)
[2021-12-08] MEDS: ATORVASTATIN 20 MG TAB PO SCH (08:41)
[2021-12-08] MEDS: ASPIRIN 81MG ENTERIC TABLET PO SCH (08:41)
[2021-12-08] MEDS: PANTOPRAZOLE 40MG TAB (PROTONIX) PO SCH (08:41)
[2021-12-08] MEDS: DULoxetine 30MG CAPSULE (CYMBALTA) PO SCH (08:42)
[2021-12-08] MEDS: METOPROLOL SUCC (TopROL XL) 50MG **XL** TAB PO SCH (08:42)
[2021-12-08] MEDS: ACETAMINOPHEN TAB 650MG DOSE (2X325MG) PO PRN (08:56)
[2021-12-08 10:00] VITALS: BP 144/59
[2021-12-08] MEDS: VANCOMYCIN HCL 1,000 MG, VIAL MATE ADAPTER 1 EACH in D5W 250 ML IV SCH (10:30)
[2021-12-08 14:00] VITALS: BP 140/58
[2021-12-08 18:00] VITALS: BP 142/60
[2021-12-08] MEDS: GABAPENTIN 400MG CAP PO SCH (21:30)
[2021-12-08 22:00] VITALS: BP_SYST 146; BP_SYST 167; BP_DIAS 66; BP_DIAS 74
[2021-12-09] MEDS: ACETAMINOPHEN TAB 650MG DOSE (2X325MG) PO PRN ×2 (00:49→18:07)
[2021-12-09] MEDS: NS 1,000 ML IV SCH (00:58)
[2021-12-09 06:00] VITALS: BP 146/66
[2021-12-09 06:11] LABS: BASO % 0.4 % (0.0-1.0); EOS # 0.1 10^3/uL (0.0-0.5); EOS % 1.5 % (0.0-3.0); HEMATOCRIT 27.6 % (36.0-47.0); HEMOGLOBIN 8.7 g/dl (12.0-15.5); LYMPH # 2.1 10^3/uL (1.5-5.0); LYMPH % 29.3 % (24.0-44.0); MEAN CORPUSCULAR HEMOGLOBIN 27.8 pg (27.0-33.0); MEAN CORPUSCULAR HGB CONC 31.5 g/dl (32.0-36.5); MEAN CORPUSCULAR VOLUME 88.2 fl (80.0-96.0); MONO # 0.5 10^3/uL (0.0-0.8); MONO % 6.6 % (2.0-8.0); NEUTROPHILS # 4.4 10^3/uL (1.5-8.5); NEUTROPHILS % 61.5 % (36.0-66.0); PLATELET COUNT, AUTOMATED 259 10^3/uL (150-450); RED BLOOD COUNT 3.13 10^6/uL (4.00-5.40); WHITE BLOOD COUNT 7.1 10^3/uL (4.0-10.0)
[2021-12-09] MEDS: PIPERACILLIN/TAZOBACTAM SOD 4.5 GM in D5W MINI-BAG PLUS 50 ML IV SCH ×3 (06:19→21:32)
[2021-12-09 06:50] LABS: CALCIUM LEVEL 8.5 MG/DL (8.8-10.2); CREATININE FOR GFR 1.11 MG/DL (0.55-1.30); GLOMERULAR FILTRATION RATE 51.2 (>39)
[2021-12-09] MEDS: INSULIN LISPRO (NovoLOG) PER UNIT SC SCH ×4 (08:50→21:00)
[2021-12-09] MEDS: HEPARIN SOD (PORCINE) 5000UNITS/ML 1ML VIAL/SYRINGE SC SCH ×2 (08:51→21:31)
[2021-12-09] MEDS: DULoxetine 30MG CAPSULE (CYMBALTA) PO SCH (08:51)
[2021-12-09] MEDS: SUCRALFATE 1 GM TAB PO SCH ×2 (08:51→18:07)
[2021-12-09] MEDS: METOPROLOL SUCC (TopROL XL) 50MG **XL** TAB PO SCH (08:52)
[2021-12-09] MEDS: PANTOPRAZOLE 40MG TAB (PROTONIX) PO SCH (08:52)
[2021-12-09] MEDS: ATORVASTATIN 20 MG TAB PO SCH (08:52)
[2021-12-09] MEDS: ASPIRIN 81MG ENTERIC TABLET PO SCH (08:52)
[2021-12-09 10:00] VITALS: BP 141/61
[2021-12-09] MEDS: VANCOMYCIN HCL 1,000 MG, VIAL MATE ADAPTER 1 EACH in D5W 250 ML IV SCH (10:14)
[2021-12-09 14:00] VITALS: BP 160/67
[2021-12-09] MEDS ORDERED: PPD DOCUMENTATION ENTRY MISC XX ONE (14:00)
[2021-12-09 18:00] VITALS: BP 168/65
[2021-12-09 21:15] VITALS: BP 152/61
[2021-12-09] MEDS: GABAPENTIN 400MG CAP PO SCH (21:32)
[2021-12-10 02:00] VITALS: BP 150/60
[2021-12-10] MEDS: PIPERACILLIN/TAZOBACTAM SOD 4.5 GM in D5W MINI-BAG PLUS 50 ML IV SCH ×2 (04:51→13:16)
[2021-12-10 06:00] VITALS: BP 148/62
[2021-12-10 06:13] LABS: BASO % 0.5 % (0.0-1.0); EOS # 0.1 10^3/uL (0.0-0.5); EOS % 1.9 % (0.0-3.0); HEMATOCRIT 27.7 % (36.0-47.0); HEMOGLOBIN 8.8 g/dl (12.0-15.5); LYMPH # 2.1 10^3/uL (1.5-5.0); LYMPH % 32.8 % (24.0-44.0); MEAN CORPUSCULAR HGB CONC 31.8 g/dl (32.0-36.5); MEAN CORPUSCULAR VOLUME 88.2 fl (80.0-96.0); MONO # 0.5 10^3/uL (0.0-0.8); MONO % 7.1 % (2.0-8.0); NEUTROPHILS # 3.6 10^3/uL (1.5-8.5); NEUTROPHILS % 56.9 % (36.0-66.0); PLATELET COUNT, AUTOMATED 285 10^3/uL (150-450); RED BLOOD COUNT 3.14 10^6/uL (4.00-5.40); WHITE BLOOD COUNT 6.3 10^3/uL (4.0-10.0)
[2021-12-10 06:37] LABS: BLOOD UREA NITROGEN 15 MG/DL (7-18); CALCIUM LEVEL 8.7 MG/DL (8.8-10.2); CARBON DIOXIDE LEVEL 28 MEQ/L (21-32); CHLORIDE LEVEL 105 MEQ/L (98-107); CREATININE FOR GFR 0.93 MG/DL (0.55-1.30); GLOMERULAR FILTRATION RATE > 60.0 (>39); GLUCOSE, FASTING 182 MG/DL (70-100); POTASSIUM SERUM 3.7 MEQ/L (3.5-5.1); SODIUM LEVEL 138 MEQ/L (136-145)
[2021-12-10] MEDS: SUCRALFATE 1 GM TAB PO SCH ×2 (08:59→18:08)
[2021-12-10] MEDS: INSULIN LISPRO (NovoLOG) PER UNIT SC SCH ×4 (08:59→21:00)
[2021-12-10] MEDS: ASPIRIN 81MG ENTERIC TABLET PO SCH (08:59)
[2021-12-10] MEDS: PANTOPRAZOLE 40MG TAB (PROTONIX) PO SCH (09:00)
[2021-12-10] MEDS: DULoxetine 30MG CAPSULE (CYMBALTA) PO SCH (09:00)
[2021-12-10] MEDS: ATORVASTATIN 20 MG TAB PO SCH (09:00)
[2021-12-10] MEDS: METOPROLOL SUCC (TopROL XL) 50MG **XL** TAB PO SCH (09:00)
[2021-12-10] MEDS: HEPARIN SOD (PORCINE) 5000UNITS/ML 1ML VIAL/SYRINGE SC SCH ×2 (09:01→21:51)
[2021-12-10 10:00] VITALS: BP 148/64
[2021-12-10 14:00] VITALS: BP 146/64
[2021-12-10 17:27] VITALS: BP 136/64
[2021-12-10] MEDS: CEPHALEXIN 500 MG CAP PO SCH ×2 (18:08→21:52)
[2021-12-10] MEDS ORDERED: VANCOMYCIN HCL 1,000 MG, VIAL MATE ADAPTER 1 EACH in NS 250 ML IV SCH (20:00)
[2021-12-10] MEDS: ACETAMINOPHEN TAB 650MG DOSE (2X325MG) PO PRN (21:51)
[2021-12-10] MEDS: GABAPENTIN 400MG CAP PO SCH (21:52)
[2021-12-10 22:00] VITALS: BP 150/64
[2021-12-11 02:00] VITALS: BP 150/68
[2021-12-11 06:00] VITALS: BP 157/68
[2021-12-11 06:52] LABS: BASO % 0.5 % (0.0-1.0); EOS # 0.1 10^3/uL (0.0-0.5); HEMATOCRIT 31.2 % (36.0-47.0); HEMOGLOBIN 9.7 g/dl (12.0-15.5); LYMPH # 2.2 10^3/uL (1.5-5.0); LYMPH % 33.8 % (24.0-44.0); MEAN CORPUSCULAR HEMOGLOBIN 27.1 pg (27.0-33.0); MEAN CORPUSCULAR HGB CONC 31.1 g/dl (32.0-36.5); MEAN CORPUSCULAR VOLUME 87.2 fl (80.0-96.0); MONO # 0.5 10^3/uL (0.0-0.8); MONO % 8.1 % (2.0-8.0); NEUTROPHILS # 3.5 10^3/uL (1.5-8.5); NEUTROPHILS % 54.8 % (36.0-66.0); PLATELET COUNT, AUTOMATED 327 10^3/uL (150-450); RED BLOOD COUNT 3.58 10^6/uL (4.00-5.40); WHITE BLOOD COUNT 6.4 10^3/uL (4.0-10.0)
[2021-12-11 07:21] LABS: BLOOD UREA NITROGEN 14 MG/DL (7-18); CALCIUM LEVEL 9.3 MG/DL (8.8-10.2); CARBON DIOXIDE LEVEL 25 MEQ/L (21-32); CHLORIDE LEVEL 106 MEQ/L (98-107); CREATININE FOR GFR 0.88 MG/DL (0.55-1.30); GLOMERULAR FILTRATION RATE > 60.0 (>39); GLUCOSE, FASTING 131 MG/DL (70-100); POTASSIUM SERUM 3.9 MEQ/L (3.5-5.1); SODIUM LEVEL 137 MEQ/L (136-145)
[2021-12-11] MEDS: PANTOPRAZOLE 40MG TAB (PROTONIX) PO SCH (08:41)
[2021-12-11] MEDS: SUCRALFATE 1 GM TAB PO SCH ×2 (08:41→18:21)
[2021-12-11] MEDS: CEPHALEXIN 500 MG CAP PO SCH (08:41)
[2021-12-11] MEDS: DULoxetine 30MG CAPSULE (CYMBALTA) PO SCH (08:41)
[2021-12-11] MEDS: ASPIRIN 81MG ENTERIC TABLET PO SCH (08:41)
[2021-12-11] MEDS: METOPROLOL SUCC (TopROL XL) 50MG **XL** TAB PO SCH (08:42)
[2021-12-11] MEDS: HEPARIN SOD (PORCINE) 5000UNITS/ML 1ML VIAL/SYRINGE SC SCH ×2 (08:42→20:15)
[2021-12-11] MEDS: ATORVASTATIN 20 MG TAB PO SCH (08:42)
[2021-12-11] MEDS: INSULIN LISPRO (NovoLOG) PER UNIT SC SCH ×4 (08:43→20:16)
[2021-12-11 08:51] LABS: VANCOMYCIN RANDOM 21.3 UG/ML
[2021-12-11 10:00] VITALS: BP 120/55
[2021-12-11] MEDS ORDERED: VANCOMYCIN HCL 1,000 MG, VIAL MATE ADAPTER 1 EACH in NS 250 ML IV SCH (10:00)
[2021-12-11] MEDS: LACTOBACILLUS ACIDOPHILUS CAP (BACID) PO SCH ×2 (12:37→18:21)
[2021-12-11] MEDS: ACETAMINOPHEN TAB 650MG DOSE (2X325MG) PO PRN (14:54)
[2021-12-11 16:00] VITALS: BP 149/58
[2021-12-11] MEDS: GABAPENTIN 400MG CAP PO SCH (20:15)
[2021-12-11 22:00] VITALS: BP 153/59
[2021-12-12] VITALS (10 sets, daily range): BP systolic 138–152; BP diastolic 54–66
[2021-12-12 06:07] LABS: HEMATOCRIT 29.7 % (36.0-47.0); HEMOGLOBIN 9.5 g/dl (12.0-15.5); MEAN CORPUSCULAR HEMOGLOBIN 27.7 pg (27.0-33.0); MEAN CORPUSCULAR VOLUME 86.6 fl (80.0-96.0); PLATELET COUNT, AUTOMATED 337 10^3/uL (150-450); RED BLOOD COUNT 3.43 10^6/uL (4.00-5.40); WHITE BLOOD COUNT 7.3 10^3/uL (4.0-10.0)
[2021-12-12 06:57] LABS: CALCIUM LEVEL 8.8 MG/DL (8.8-10.2); CREATININE FOR GFR 1.06 MG/DL (0.55-1.30); GLOMERULAR FILTRATION RATE 53.9 (>39); POTASSIUM SERUM 4.1 MEQ/L (3.5-5.1)
[2021-12-12] MEDS: INSULIN LISPRO (NovoLOG) PER UNIT SC SCH ×4 (07:17→22:12)
[2021-12-12] MEDS: ATORVASTATIN 20 MG TAB PO SCH (08:56)
[2021-12-12] MEDS: PANTOPRAZOLE 40MG TAB (PROTONIX) PO SCH (08:56)
[2021-12-12] MEDS: SUCRALFATE 1 GM TAB PO SCH ×2 (08:56→17:55)
[2021-12-12] MEDS: LACTOBACILLUS ACIDOPHILUS CAP (BACID) PO SCH ×3 (08:56→17:55)
[2021-12-12] MEDS: METOPROLOL SUCC (TopROL XL) 50MG **XL** TAB PO SCH (08:56)
[2021-12-12] MEDS: DULoxetine 30MG CAPSULE (CYMBALTA) PO SCH (08:56)
[2021-12-12] MEDS: ASPIRIN 81MG ENTERIC TABLET PO SCH (08:56)
[2021-12-12] MEDS: HEPARIN SOD (PORCINE) 5000UNITS/ML 1ML VIAL/SYRINGE SC SCH ×2 (08:56→22:38)
[2021-12-12] MEDS ORDERED: fentaNYL 100 MCG/2 ML INJECTION As Ordered ONE (12:17)
[2021-12-12] MEDS ORDERED: MIDAZOLAM INJ 2MG/2ML VIAL (J2250 PER 1MG) As Ordered ONE (12:17)
[2021-12-12] MEDS ORDERED: LIDOCAINE 1% MDV 20ML VIAL As Ordered ONE (12:18)
[2021-12-12] MEDS ORDERED: ISOVUE-300 61% 50ML VIAL As Ordered ONE ×2 (12:19→12:23)
[2021-12-12] MEDS ORDERED: hydrALAZINE 20MG/ML 1ML VIAL (J0360 PER 20MG) As Ordered ONE (12:39)
[2021-12-12] MEDS ORDERED: NS 1,000 ML IV SCH (15:55)
[2021-12-12] MEDS ORDERED: ONDANSETRON 4MG 2ML VIAL IV PRN (15:55)
[2021-12-12] MEDS ORDERED: VANCOMYCIN HCL 1,000 MG, VIAL MATE ADAPTER 1 EACH in NS 250 ML IV SCH (17:00)
[2021-12-12] MEDS: GABAPENTIN 400MG CAP PO SCH (22:38)
[2021-12-12] MEDS: AUGMENTIN 875 MG TAB PO SCH (22:39)
[2021-12-13 02:00] VITALS: BP 144/62
[2021-12-13 06:00] VITALS: BP 141/59
[2021-12-13] MEDS ORDERED: AMOX875T2 PO (07:45)
[2021-12-13] MEDS ORDERED: RISATAB3 PO (07:45)
[2021-12-13] MEDS: DULoxetine 30MG CAPSULE (CYMBALTA) PO SCH (08:53)
[2021-12-13] MEDS: ATORVASTATIN 20 MG TAB PO SCH (08:54)
[2021-12-13] MEDS: ASPIRIN 81MG ENTERIC TABLET PO SCH (08:54)
[2021-12-13] MEDS: INSULIN LISPRO (NovoLOG) PER UNIT SC SCH ×4 (08:54→20:37)
[2021-12-13] MEDS: METOPROLOL SUCC (TopROL XL) 50MG **XL** TAB PO SCH (08:55)
[2021-12-13] MEDS: SUCRALFATE 1 GM TAB PO SCH ×2 (08:58→18:40)
[2021-12-13] MEDS: AUGMENTIN 875 MG TAB PO SCH ×2 (08:58→20:37)
[2021-12-13] MEDS: PANTOPRAZOLE 40MG TAB (PROTONIX) PO SCH (08:58)
[2021-12-13] MEDS: LACTOBACILLUS ACIDOPHILUS CAP (BACID) PO SCH ×3 (08:58→18:40)
[2021-12-13] MEDS: HEPARIN SOD (PORCINE) 5000UNITS/ML 1ML VIAL/SYRINGE SC SCH ×2 (08:58→20:38)
[2021-12-13 10:00] VITALS: BP 144/56
[2021-12-13 10:41] LABS: CALCIUM LEVEL 8.7 MG/DL (8.8-10.2); CREATININE FOR GFR 1.01 MG/DL (0.55-1.30)
[2021-12-13] MEDS: GABAPENTIN 400MG CAP PO SCH (20:37)
[2021-12-13] MEDS: ACETAMINOPHEN TAB 650MG DOSE (2X325MG) PO PRN (20:42)
[2021-12-14 06:00] VITALS: BP 166/69
[2021-12-14] MEDS: INSULIN LISPRO (NovoLOG) PER UNIT SC SCH ×4 (08:49→21:00)
[2021-12-14] MEDS: DULoxetine 30MG CAPSULE (CYMBALTA) PO SCH (08:50)
[2021-12-14] MEDS: ASPIRIN 81MG ENTERIC TABLET PO SCH (08:50)
[2021-12-14] MEDS: HEPARIN SOD (PORCINE) 5000UNITS/ML 1ML VIAL/SYRINGE SC SCH ×2 (08:50→20:09)
[2021-12-14] MEDS: AUGMENTIN 875 MG TAB PO SCH ×2 (08:50→20:09)
[2021-12-14] MEDS: ATORVASTATIN 20 MG TAB PO SCH (08:50)
[2021-12-14] MEDS: SUCRALFATE 1 GM TAB PO SCH ×2 (08:51→17:56)
[2021-12-14] MEDS: LACTOBACILLUS ACIDOPHILUS CAP (BACID) PO SCH ×3 (08:51→17:56)
[2021-12-14] MEDS: PANTOPRAZOLE 40MG TAB (PROTONIX) PO SCH (08:51)
[2021-12-14] MEDS: METOPROLOL SUCC (TopROL XL) 50MG **XL** TAB PO SCH (08:51)
[2021-12-14] MEDS ORDERED: RISATAB3 PO (10:59)
[2021-12-14] MEDS ORDERED: AMOX875T2 PO (10:59)
[2021-12-14] MEDS: GABAPENTIN 400MG CAP PO SCH (20:09)
[2021-12-14] MEDS: ACETAMINOPHEN TAB 650MG DOSE (2X325MG) PO PRN (20:10)
[2021-12-15 06:00] VITALS: BP 131/53
[2021-12-15] MEDS: INSULIN LISPRO (NovoLOG) PER UNIT SC SCH (08:26)
[2021-12-15] MEDS: HEPARIN SOD (PORCINE) 5000UNITS/ML 1ML VIAL/SYRINGE SC SCH (08:26)
[2021-12-15] MEDS: DULoxetine 30MG CAPSULE (CYMBALTA) PO SCH (08:27)
[2021-12-15] MEDS: AUGMENTIN 875 MG TAB PO SCH (08:27)
[2021-12-15] MEDS: ASPIRIN 81MG ENTERIC TABLET PO SCH (08:27)
[2021-12-15] MEDS: ATORVASTATIN 20 MG TAB PO SCH (08:27)
[2021-12-15] MEDS: LACTOBACILLUS ACIDOPHILUS CAP (BACID) PO SCH (08:27)
[2021-12-15] MEDS: SUCRALFATE 1 GM TAB PO SCH (08:27)
[2021-12-15 08:28] VITALS: BP 187/77
[2021-12-15] MEDS: METOPROLOL SUCC (TopROL XL) 50MG **XL** TAB PO SCH (08:28)
[2021-12-15] MEDS: PANTOPRAZOLE 40MG TAB (PROTONIX) PO SCH (08:28)
[2021-12-15 09:00] VITALS: BP 182/68
== END 2021-12-15 10:41 | DRG 617 ==
LOC: M MSPAV 14:32
PROVIDERS: ADMIT Internal Medicine Nephrology; ATTEND Internal Medicine Nephrology
PROC: 0QBP0ZZ Excision of Left Metatarsal, Open Approach (ICD-10-PCS; 2021-12-07)
PROC: 0Y6Y0Z0 Detachment at Left 5th Toe, Complete, Open Approach (ICD-10-PCS; principal; 2021-12-07 09:50)
PROC: B40DYZZ Plain Radiography of Aorta and Bilateral Lower Extremity Arteries using Other Contrast (ICD-10-PCS; 2021-12-12)
DX: E11.69 Type 2 diabetes mellitus with other specified complication (principal); M86.9 Osteomyelitis, unspecified; E11.52 Type 2 diabetes mellitus with diabetic peripheral angiopathy with gangrene; I70.362 Atherosclerosis of unspecified type of bypass graft(s) of the extremities with gangrene, left leg; I70.344 Atherosclerosis of unspecified type of bypass graft(s) of the left leg with ulceration of heel and midfoot; L97.529 Non-pressure chronic ulcer of other part of left foot with unspecified severity; I25.10 Atherosclerotic heart disease of native coronary artery without angina pectoris; E11.22 Type 2 diabetes mellitus with diabetic chronic kidney disease; E11.42 Type 2 diabetes mellitus with diabetic polyneuropathy; N18.30 Chronic kidney disease, stage 3 unspecified; I12.9 Hypertensive chronic kidney disease with stage 1 through stage 4 chronic kidney disease, or unspecified chronic kidney disease; E78.5 Hyperlipidemia, unspecified; Z66 Do not resuscitate; I67.1 Cerebral aneurysm, nonruptured; F41.9 Anxiety disorder, unspecified; K21.9 Gastro-esophageal reflux disease without esophagitis; Z89.421 Acquired absence of other right toe(s); Z87.891 Personal history of nicotine dependence; Z95.5 Presence of coronary angioplasty implant and graft; Z79.82 Long term (current) use of aspirin; Z79.4 Long term (current) use of insulin; Z79.899 Other long term (current) drug therapy; Z95.820 Peripheral vascular angioplasty status with implants and grafts; B95.2 Enterococcus as the cause of diseases classified elsewhere; Z86.711 Personal history of pulmonary embolism

== ENCOUNTER → 2021-12-28 | Outpatient (REF) | payer MEDICARE, BC ==
[~2021-12-28] MED LIST changes: +AMOX875T2 PO; +LEVE1INJ5 SC; +METO1TAB7 PO; +RISATAB3 PO; +SUCR1TAB56 PO
[2021-12-28 11:59] LABS: BASO % 0.4 % (0.0-1.0); EOS # 0.1 10^3/uL (0.0-0.5); EOS % 0.9 % (0.0-3.0); HEMOGLOBIN 9.5 g/dl (12.0-15.5); LYMPH # 1.9 10^3/uL (1.5-5.0); LYMPH % 19.8 % (24.0-44.0); MEAN CORPUSCULAR HEMOGLOBIN 26.9 pg (27.0-33.0); MEAN CORPUSCULAR HGB CONC 30.6 g/dl (32.0-36.5); MEAN CORPUSCULAR VOLUME 87.8 fl (80.0-96.0); MONO # 0.9 10^3/uL (0.0-0.8); MONO % 8.8 % (2.0-8.0); NEUTROPHILS # 6.7 10^3/uL (1.5-8.5); NEUTROPHILS % 69.5 % (36.0-66.0); PLATELET COUNT, AUTOMATED 251 10^3/uL (150-450); RED BLOOD COUNT 3.53 10^6/uL (4.00-5.40); WHITE BLOOD COUNT 9.7 10^3/uL (4.0-10.0)
[2021-12-28 13:33] LABS: ALBUMIN 2.9 GM/DL (3.2-5.2); BILIRUBIN,TOTAL 0.4 MG/DL (0.2-1.0); C REACTIVE PROTEIN QUANTITATIV 13.3 MG/DL (0.00-0.30); CHOLESTEROL RISK RATIO 2.24 (<5); CREATININE FOR GFR 1.2 MG/DL (0.55-1.30); FREE T4 1.01 NG/DL (0.76-1.46); GLOMERULAR FILTRATION RATE 46.8 (>39); POTASSIUM SERUM 3.8 MEQ/L (3.5-5.1); THYROID STIMULATING HORMONE 3.09 uIU/ML (0.358-3.740); TOTAL PROTEIN 7.2 GM/DL (6.4-8.2)
[2021-12-28 20:30] LABS: HEMOGLOBIN A1c 9.6 %
== END ==
PROVIDERS: ATTEND Nurse Practitioner Family
DX: M86.9 Osteomyelitis, unspecified (principal); I25.10 Atherosclerotic heart disease of native coronary artery without angina pectoris; E11.59 Type 2 diabetes mellitus with other circulatory complications; N18.30 Chronic kidney disease, stage 3 unspecified; I73.9 Peripheral vascular disease, unspecified

== ENCOUNTER → 2022-01-02 | Outpatient (REF) | payer MEDICARE, BC, MEDICAID | LOC: M SFHCWOUN 11:13 | PROVIDERS: ATTEND Surgery | DX: E11.621 Type 2 diabetes mellitus with foot ulcer (principal) ==

== ENCOUNTER → 2022-01-23 | Outpatient (REF) | payer MEDICARE, MEDICAID ==
[~2022-01-23] MED LIST changes: +ACET-897 PO; +TRAM50TA2 PO
== END ==
LOC: M SFHCWOUN 16:25
PROVIDERS: ATTEND Surgery
DX: E11.621 Type 2 diabetes mellitus with foot ulcer (principal)

== ENCOUNTER → 2022-01-26 | Outpatient (CLI) | payer MEDICAID, MEDICARE ==
[~2022-01-26] MED LIST changes: +INSUDET SQ
== END ==
LOC: M LABSMTC 10:31
PROVIDERS: ATTEND Anesthesiology
DX: Z01.818 Encounter for other preprocedural examination (principal); Z11.52 Encounter for screening for COVID-19

== ENCOUNTER → 2022-01-27 | Outpatient (CLI) | payer MEDICARE | LOC: M RAD 15:49 | PROVIDERS: ATTEND Surgery Vascular Surgery | DX: I65.23 Occlusion and stenosis of bilateral carotid arteries (principal) ==

== ENCOUNTER 2022-01-31 06:16 | Inpatient (IN) | payer MEDICAID, MEDICARE ==
[~2022-01-31] VITALS: Ht 154.9 cm; Wt 54.4 kg
[~2022-01-31 06:16] MED LIST changes: -INSUDET SQ
[2022-01-31] MEDS ORDERED: NS 1,000 ML IV SCH (06:45)
[2022-01-31] MEDS ORDERED: ceFAZolin SOD 2 GM in IV 1 EA IV ONE (06:45)
[2022-01-31 06:49] VITALS: BP 118/62
[2022-01-31] MEDS ORDERED: fentaNYL 250 MCG/5 ML INJECTION As Ordered ONE (07:05)
[2022-01-31 07:06] LABS: HEMATOCRIT 32.1 % (36.0-47.0); HEMOGLOBIN 9.7 g/dl (12.0-15.5); MEAN CORPUSCULAR HEMOGLOBIN 25.3 pg (27.0-33.0); MEAN CORPUSCULAR HGB CONC 30.2 g/dl (32.0-36.5); MEAN CORPUSCULAR VOLUME 83.8 fl (80.0-96.0); PLATELET COUNT, AUTOMATED 389 10^3/uL (150-450); RED BLOOD COUNT 3.83 10^6/uL (4.00-5.40); WHITE BLOOD COUNT 9.7 10^3/uL (4.0-10.0)
[2022-01-31] MEDS ORDERED: MIDAZOLAM INJ 2MG/2ML VIAL (J2250 PER 1MG) As Ordered ONE (07:06)
[2022-01-31] MEDS ORDERED: propofoL 200 MG/20 ML VIAL As Ordered ONE ×2 (07:06→07:07)
[2022-01-31] MEDS ORDERED: LIDOCAINE 2% 100MG/5ML SDV (FOR ANES.) As Ordered ONE (07:06)
[2022-01-31] MEDS ORDERED: ROCURONIUM BROMIDE 50 MG/5 ML VIAL As Ordered ONE (07:06)
[2022-01-31] MEDS ORDERED: THROMBIN SOLN 20,000 UNITS KIT As Ordered ONE (07:11)
[2022-01-31] MEDS ORDERED: HEPARIN SOD (PORCINE) 5000UNITS/ML 1ML VIAL/SYRINGE As Ordered ONE (07:11)
[2022-01-31 07:26] LABS: INR 1.01; PROTHROMBIN TIME 13.5 SECONDS (12.5-14.5)
[2022-01-31 07:31] LABS: PARTIAL THROMBOPLASTIN TIME 29.5 SECONDS (24.8-34.2)
[2022-01-31] MEDS ORDERED: ISOVUE-300 61% 50ML VIAL As Ordered ONE (07:43)
[2022-01-31 07:57] LABS: CALCIUM LEVEL 9.2 MG/DL (8.8-10.2); CREATININE FOR GFR 1.35 MG/DL (0.55-1.30); GLOMERULAR FILTRATION RATE 40.8 (>39); POTASSIUM SERUM 3.9 MEQ/L (3.5-5.1)
[2022-01-31] MEDS ORDERED: ASPIRIN 325 MG TAB PO SCH (09:00)
[2022-01-31] MEDS ORDERED: INSUDET SQ (12:12)
== END 2022-01-31 11:19 | disposition short-term general hospital (02) | DRG 301 ==
LOC: M OR 06:16
PROVIDERS: ADMIT Surgery Vascular Surgery; ATTEND Internal Medicine
DX: I73.9 Peripheral vascular disease, unspecified (principal); Z53.9 Procedure and treatment not carried out, unspecified reason

== ENCOUNTER 2022-01-31 09:26 | Inpatient (IN) | payer MEDICARE ==
[~2022-01-31] VITALS: Ht 154.9 cm; Wt 59.3 kg
[~2022-01-31 09:26] MED LIST changes: +ASPIRIN 81MG ENTERIC TABLET PO SCH
[2022-01-31] MEDS ORDERED: DEXTROSE 50% 50 ML SYRINGE IV PRN (10:10)
[2022-01-31] MEDS ORDERED: GLUCOSE 4GM CHEW TABLET PO PRN (10:10)
[2022-01-31] MEDS ORDERED: GLUCAGON INJ 1MG VIAL SC PRN (10:10)
[2022-01-31 11:10] VITALS: BP 164/69
[2022-01-31] MEDS ORDERED: INSUDET SQ (12:12)
[2022-01-31] MEDS ORDERED: HOME MED LIST COMPLETE! XX SCH (12:20)
[2022-01-31] MEDS: ACETAMINOPHEN TAB 650MG DOSE (2X325MG) PO PRN (12:23)
[2022-01-31] MEDS: INSULIN LISPRO (NovoLOG) PER UNIT SC SCH ×3 (13:07→20:20)
[2022-01-31] MEDS ORDERED: traMADol 50 MG TAB PO PRN (13:20)
[2022-01-31] MEDS ORDERED: PILL CUTTER 1 EACH XX PRN (13:40)
[2022-01-31] MEDS: FUROSEMIDE 40 MG TAB PO SCH (14:58)
[2022-01-31] MEDS: DULoxetine 30MG CAPSULE (CYMBALTA) PO SCH (14:59)
[2022-01-31 15:47] VITALS: BP 150/67
[2022-01-31] MEDS: SUCRALFATE 1 GM TAB PO SCH (17:22)
[2022-01-31 19:54] VITALS: BP 168/75
[2022-01-31] MEDS: GABAPENTIN 400MG CAP PO SCH (20:19)
[2022-01-31] MEDS: FERROUS SULFATE 325MG TAB PO SCH (20:19)
[2022-01-31] MEDS: ATORVASTATIN 20 MG TAB PO SCH (20:19)
[2022-01-31] MEDS: trandolapriL 1 MG TAB PO SCH (20:20)
[2022-01-31] MEDS: LEVEMIR (INSULIN DETEMIR) 1 UNITS/0.01ML SC SCH (20:20)
[2022-02-01] VITALS (8 sets, daily range): BP systolic 100–160; BP diastolic 63–74
[2022-02-01 05:17] LABS: BASO % 0.4 % (0.0-1.0); EOS # 0.1 10^3/uL (0.0-0.5); EOS % 1.3 % (0.0-3.0); HEMATOCRIT 30.3 % (36.0-47.0); HEMOGLOBIN 9.1 g/dl (12.0-15.5); LYMPH # 2.1 10^3/uL (1.5-5.0); LYMPH % 27.3 % (24.0-44.0); MEAN CORPUSCULAR HEMOGLOBIN 24.9 pg (27.0-33.0); MEAN CORPUSCULAR VOLUME 82.8 fl (80.0-96.0); MONO # 0.5 10^3/uL (0.0-0.8); MONO % 6.2 % (2.0-8.0); NEUTROPHILS # 4.9 10^3/uL (1.5-8.5); NEUTROPHILS % 64.3 % (36.0-66.0); PLATELET COUNT, AUTOMATED 359 10^3/uL (150-450); RED BLOOD COUNT 3.66 10^6/uL (4.00-5.40); WHITE BLOOD COUNT 7.6 10^3/uL (4.0-10.0)
[2022-02-01 05:41] LABS: CALCIUM LEVEL 9.4 MG/DL (8.8-10.2); CREATININE FOR GFR 1.11 MG/DL (0.55-1.30); GLOMERULAR FILTRATION RATE 51.2 (>39); MAGNESIUM LEVEL 1.8 MG/DL (1.8-2.4); POTASSIUM SERUM 3.7 MEQ/L (3.5-5.1)
[2022-02-01] MEDS: INSULIN LISPRO (NovoLOG) PER UNIT SC SCH ×4 (07:30→20:22)
[2022-02-01] MEDS: DULoxetine 30MG CAPSULE (CYMBALTA) PO SCH (08:27)
[2022-02-01] MEDS: PANTOPRAZOLE 40MG TAB (PROTONIX) PO SCH (08:27)
[2022-02-01] MEDS: SUCRALFATE 1 GM TAB PO SCH ×2 (08:27→17:42)
[2022-02-01] MEDS: METOPROLOL SUCC (TopROL XL) 50MG **XL** TAB PO SCH (08:28)
[2022-02-01] MEDS: FUROSEMIDE 40 MG TAB PO SCH (08:28)
[2022-02-01] MEDS ORDERED: ASPIRIN ENTERIC 325 MG TAB PO SCH (09:00)
[2022-02-01] MEDS: ATORVASTATIN 20 MG TAB PO SCH (20:20)
[2022-02-01] MEDS: GABAPENTIN 400MG CAP PO SCH (20:20)
[2022-02-01] MEDS: trandolapriL 1 MG TAB PO SCH (20:21)
[2022-02-01] MEDS: FERROUS SULFATE 325MG TAB PO SCH (20:21)
[2022-02-01] MEDS: LEVEMIR (INSULIN DETEMIR) 1 UNITS/0.01ML SC SCH (20:22)
[2022-02-02 00:03] VITALS: BP 135/63
[2022-02-02 04:27] VITALS: BP 131/63
[2022-02-02 06:08] LABS: BASO # 0.1 10^3/uL (0.0-0.2); BASO % 0.6 % (0.0-1.0); EOS # 0.1 10^3/uL (0.0-0.5); EOS % 1.4 % (0.0-3.0); HEMATOCRIT 30.7 % (36.0-47.0); HEMOGLOBIN 9.2 g/dl (12.0-15.5); LYMPH # 1.9 10^3/uL (1.5-5.0); LYMPH % 22.8 % (24.0-44.0); MEAN CORPUSCULAR HEMOGLOBIN 24.5 pg (27.0-33.0); MEAN CORPUSCULAR VOLUME 81.9 fl (80.0-96.0); MONO # 0.7 10^3/uL (0.0-0.8); NEUTROPHILS # 5.5 10^3/uL (1.5-8.5); NEUTROPHILS % 66.2 % (36.0-66.0); PLATELET COUNT, AUTOMATED 345 10^3/uL (150-450); RED BLOOD COUNT 3.75 10^6/uL (4.00-5.40); WHITE BLOOD COUNT 8.3 10^3/uL (4.0-10.0)
[2022-02-02 06:35] LABS: CALCIUM LEVEL 9.1 MG/DL (8.8-10.2); CREATININE FOR GFR 1.23 MG/DL (0.55-1.30); GLOMERULAR FILTRATION RATE 45.4 (>39); MAGNESIUM LEVEL 1.6 MG/DL (1.8-2.4); POTASSIUM SERUM 3.9 MEQ/L (3.5-5.1)
[2022-02-02 08:00] VITALS: BP 133/63
[2022-02-02] MEDS: FUROSEMIDE 40 MG TAB PO SCH (08:55)
[2022-02-02] MEDS: SUCRALFATE 1 GM TAB PO SCH ×2 (08:55→18:33)
[2022-02-02] MEDS: PANTOPRAZOLE 40MG TAB (PROTONIX) PO SCH (08:56)
[2022-02-02] MEDS: DULoxetine 30MG CAPSULE (CYMBALTA) PO SCH (08:56)
[2022-02-02] MEDS: METOPROLOL SUCC (TopROL XL) 50MG **XL** TAB PO SCH (08:56)
[2022-02-02] MEDS ORDERED: ASPIRIN ENTERIC 325 MG TAB PO SCH (09:00)
[2022-02-02] MEDS: INSULIN LISPRO (NovoLOG) PER UNIT SC SCH ×4 (09:47→19:54)
[2022-02-02] MEDS: ASPIRIN 81MG ENTERIC TABLET PO SCH (09:47)
[2022-02-02] MEDS: MAG SULF 1GM/100ML (MAG RUN) 1 GM in IV 1 EA IV SCH ×2 (09:48→10:50)
[2022-02-02 11:41] VITALS: BP 138/60
[2022-02-02 15:34] VITALS: BP 142/70
[2022-02-02 20:00] VITALS: BP 156/68
[2022-02-02] MEDS: LEVEMIR (INSULIN DETEMIR) 1 UNITS/0.01ML SC SCH (20:05)
[2022-02-02] MEDS: trandolapriL 1 MG TAB PO SCH (20:09)
[2022-02-02] MEDS: ATORVASTATIN 20 MG TAB PO SCH (20:09)
[2022-02-02] MEDS: FERROUS SULFATE 325MG TAB PO SCH (20:09)
[2022-02-02] MEDS: ACETAMINOPHEN TAB 650MG DOSE (2X325MG) PO PRN (20:10)
[2022-02-02] MEDS: GABAPENTIN 400MG CAP PO SCH (20:10)
[2022-02-03] VITALS (9 sets, daily range): BP systolic 110–154; BP diastolic 50–88
[2022-02-03 05:05] LABS: BASO % 0.5 % (0.0-1.0); EOS # 0.1 10^3/uL (0.0-0.5); EOS % 1.8 % (0.0-3.0); HEMATOCRIT 30.3 % (36.0-47.0); HEMOGLOBIN 9.1 g/dl (12.0-15.5); LYMPH # 2.5 10^3/uL (1.5-5.0); LYMPH % 32.8 % (24.0-44.0); MEAN CORPUSCULAR HEMOGLOBIN 24.9 pg (27.0-33.0); MONO # 0.7 10^3/uL (0.0-0.8); MONO % 8.8 % (2.0-8.0); NEUTROPHILS # 4.2 10^3/uL (1.5-8.5); NEUTROPHILS % 55.3 % (36.0-66.0); PLATELET COUNT, AUTOMATED 336 10^3/uL (150-450); RED BLOOD COUNT 3.65 10^6/uL (4.00-5.40); WHITE BLOOD COUNT 7.6 10^3/uL (4.0-10.0)
[2022-02-03 05:28] LABS: CALCIUM LEVEL 9.1 MG/DL (8.8-10.2); CREATININE FOR GFR 1.24 MG/DL (0.55-1.30); POTASSIUM SERUM 3.8 MEQ/L (3.5-5.1)
[2022-02-03] MEDS: INSULIN LISPRO (NovoLOG) PER UNIT SC SCH ×4 (07:30→20:07)
[2022-02-03] MEDS: NS 1,000 ML IV SCH ×2 (08:09→20:35)
[2022-02-03] MEDS: PANTOPRAZOLE 40MG TAB (PROTONIX) PO SCH (08:11)
[2022-02-03] MEDS: ASPIRIN 81MG ENTERIC TABLET PO SCH (08:11)
[2022-02-03] MEDS ORDERED: ETOMIDATE INJ 20MG/10ML VIAL As Ordered ONE (12:08)
[2022-02-03] MEDS ORDERED: ROCURONIUM BROMIDE 50 MG/5 ML VIAL As Ordered ONE ×2 (12:08→14:24)
[2022-02-03] MEDS ORDERED: fentaNYL 100 MCG/2 ML INJECTION As Ordered ONE ×2 (12:08→14:26)
[2022-02-03] MEDS ORDERED: LIDOCAINE 2% 100MG/5ML SDV (FOR ANES.) As Ordered ONE (12:08)
[2022-02-03] MEDS ORDERED: propofoL 200 MG/20 ML VIAL As Ordered ONE (12:08)
[2022-02-03] MEDS ORDERED: ISOVUE-300 61% 50ML VIAL As Ordered ONE ×2 (12:30→16:02)
[2022-02-03] MEDS ORDERED: HEPARIN SOD (PORCINE) 5000UNITS/ML 1ML VIAL/SYRINGE As Ordered ONE ×3 (12:31→16:04)
[2022-02-03] MEDS ORDERED: THROMBIN SOLN 20,000 UNITS KIT As Ordered ONE (12:31)
[2022-02-03] MEDS: SUCRALFATE 1 GM TAB PO SCH ×2 (13:04→18:20)
[2022-02-03] MEDS ORDERED: PHENYLephrine 500MCG 5ML (100MCG/ML) SYRINGE As Ordered ONE ×2 (13:14→13:40)
[2022-02-03] MEDS ORDERED: ePHEDrine SULFATE 25 MG/5 ML(5MG/ML) SYRINGE As Ordered ONE (13:15)
[2022-02-03] MEDS ORDERED: METOCLOPRAMIDE INJ 10MG/2ML VIAL (J2765 PER 1) As Ordered ONE (14:11)
[2022-02-03] MEDS ORDERED: ONDANSETRON 4MG 2ML VIAL As Ordered ONE (14:41)
[2022-02-03] MEDS ORDERED: SUGAMMADEX SODIUM 500 MG/5 ML VIAL (BRIDION) As Ordered ONE (14:41)
[2022-02-03] MEDS ORDERED: PHENYLEPHRINE 10MG/ML 1ML VIAL (J2370 PER 1) As Ordered ONE (14:56)
[2022-02-03] MEDS ORDERED: CEFUROXIME INJ 750 MG VIAL (J0697 PER 750MG) As Ordered ONE (16:12)
[2022-02-03] MEDS ORDERED: LIDOCAINE 1% MDV 20ML VIAL As Ordered ONE (16:16)
[2022-02-03] MEDS ORDERED: oxyCODONE 5MG TAB PO PRN (16:55)
[2022-02-03] MEDS ORDERED: LR 1,000 ML IV SCH (16:55)
[2022-02-03] MEDS ORDERED: ONDANSETRON 4MG 2ML VIAL IV PRN (16:55)
[2022-02-03] MEDS ORDERED: METOCLOPRAMIDE INJ 10MG/2ML VIAL (J2765 PER 1) IV PRN (16:55)
[2022-02-03] MEDS ORDERED: HYDROMORPHONE HCL 0.5 MG/ 0.5 ML SYRINGE (J1170 PER 1) IV PRN (16:55)
[2022-02-03] MEDS ORDERED: fentaNYL 100 MCG/2 ML INJECTION IV PRN (16:55)
[2022-02-03] MEDS: DULoxetine 30MG CAPSULE (CYMBALTA) PO SCH (17:39)
[2022-02-03] MEDS: FUROSEMIDE 40 MG TAB PO SCH (17:40)
[2022-02-03] MEDS: METOPROLOL SUCC (TopROL XL) 50MG **XL** TAB PO SCH (17:40)
[2022-02-03] MEDS: FERROUS SULFATE 325MG TAB PO SCH (20:19)
[2022-02-03] MEDS: LEVEMIR (INSULIN DETEMIR) 1 UNITS/0.01ML SC SCH (20:19)
[2022-02-03] MEDS: GABAPENTIN 400MG CAP PO SCH (20:19)
[2022-02-03] MEDS: ATORVASTATIN 20 MG TAB PO SCH (20:20)
[2022-02-03] MEDS: trandolapriL 1 MG TAB PO SCH (20:20)
[2022-02-04] VITALS: BP 90/58
[2022-02-04] MEDS: oxyCODONE 5MG TAB PO PRN ×3 (00:23→21:05)
[2022-02-04 04:00] VITALS: BP 140/64
[2022-02-04 06:27] LABS: BASO % 0.3 % (0.0-1.0); EOS # 0.1 10^3/uL (0.0-0.5); EOS % 1.1 % (0.0-3.0); HEMOGLOBIN 8.4 g/dl (12.0-15.5); LYMPH % 9.6 % (24.0-44.0); MEAN CORPUSCULAR HEMOGLOBIN 25.3 pg (27.0-33.0); MEAN CORPUSCULAR VOLUME 87.3 fl (80.0-96.0); MONO # 0.6 10^3/uL (0.0-0.8); MONO % 6.2 % (2.0-8.0); NEUTROPHILS # 8.3 10^3/uL (1.5-8.5); NEUTROPHILS % 82.1 % (36.0-66.0); PLATELET COUNT, AUTOMATED 253 10^3/uL (150-450); RED BLOOD COUNT 3.32 10^6/uL (4.00-5.40)
[2022-02-04 06:55] LABS: CALCIUM LEVEL 8.4 MG/DL (8.8-10.2); CREATININE FOR GFR 0.97 MG/DL (0.55-1.30); GLOMERULAR FILTRATION RATE 59.8 (>39); MAGNESIUM LEVEL 1.9 MG/DL (1.8-2.4); POTASSIUM SERUM 4.5 MEQ/L (3.5-5.1)
[2022-02-04 07:59] VITALS: BP 132/60
[2022-02-04] MEDS: ASPIRIN 81MG ENTERIC TABLET PO SCH (09:03)
[2022-02-04] MEDS: FUROSEMIDE 40 MG TAB PO SCH (09:03)
[2022-02-04] MEDS: PANTOPRAZOLE 40MG TAB (PROTONIX) PO SCH (09:03)
[2022-02-04] MEDS: SUCRALFATE 1 GM TAB PO SCH ×2 (09:04→17:06)
[2022-02-04] MEDS: DULoxetine 30MG CAPSULE (CYMBALTA) PO SCH (09:04)
[2022-02-04] MEDS: METOPROLOL SUCC (TopROL XL) 50MG **XL** TAB PO SCH (09:04)
[2022-02-04] MEDS: INSULIN LISPRO (NovoLOG) PER UNIT SC SCH ×4 (09:05→21:00)
[2022-02-04] MEDS: NS 1,000 ML IV SCH (10:10)
[2022-02-04] MEDS: ACETAMINOPHEN TAB 650MG DOSE (2X325MG) PO PRN (11:25)
[2022-02-04 12:54] VITALS: BP 134/54
[2022-02-04 16:00] VITALS: BP 167/73
[2022-02-04 20:00] VITALS: BP 142/65
[2022-02-04] MEDS: FERROUS SULFATE 325MG TAB PO SCH (21:02)
[2022-02-04] MEDS: GABAPENTIN 400MG CAP PO SCH (21:02)
[2022-02-04] MEDS: ATORVASTATIN 20 MG TAB PO SCH (21:03)
[2022-02-04] MEDS: trandolapriL 1 MG TAB PO SCH (21:03)
[2022-02-04] MEDS: LEVEMIR (INSULIN DETEMIR) 1 UNITS/0.01ML SC SCH (21:05)
[2022-02-05] VITALS (13 sets, daily range): BP systolic 109–157; BP diastolic 54–69
[2022-02-05] MEDS: ACETAMINOPHEN TAB 650MG DOSE (2X325MG) PO PRN ×2 (00:13→10:32)
[2022-02-05 06:55] LABS: BASO % 0.1 % (0.0-1.0); EOS # 0.1 10^3/uL (0.0-0.5); EOS % 0.7 % (0.0-3.0); HEMATOCRIT 23.7 % (36.0-47.0); HEMOGLOBIN 7.2 g/dl (12.0-15.5); LYMPH # 1.3 10^3/uL (1.5-5.0); LYMPH % 11.7 % (24.0-44.0); MEAN CORPUSCULAR HEMOGLOBIN 25.7 pg (27.0-33.0); MEAN CORPUSCULAR HGB CONC 30.4 g/dl (32.0-36.5); MEAN CORPUSCULAR VOLUME 84.6 fl (80.0-96.0); MONO # 0.9 10^3/uL (0.0-0.8); MONO % 8.1 % (2.0-8.0); NEUTROPHILS # 8.5 10^3/uL (1.5-8.5); NEUTROPHILS % 78.8 % (36.0-66.0); PLATELET COUNT, AUTOMATED 219 10^3/uL (150-450); WHITE BLOOD COUNT 10.8 10^3/uL (4.0-10.0)
[2022-02-05 07:24] LABS: BLOOD UREA NITROGEN 25 MG/DL (7-18); CALCIUM LEVEL 8.1 MG/DL (8.8-10.2); CARBON DIOXIDE LEVEL 25 MEQ/L (21-32); CHLORIDE LEVEL 100 MEQ/L (98-107); CREATININE FOR GFR 0.92 MG/DL (0.55-1.30); GLOMERULAR FILTRATION RATE > 60.0 (>39); GLUCOSE, FASTING 186 MG/DL (70-100); MAGNESIUM LEVEL 1.7 MG/DL (1.8-2.4); POTASSIUM SERUM 4.1 MEQ/L (3.5-5.1); SODIUM LEVEL 132 MEQ/L (136-145)
[2022-02-05] MEDS: INSULIN LISPRO (NovoLOG) PER UNIT SC SCH ×2 (07:30→12:41)
[2022-02-05] MEDS: SUCRALFATE 1 GM TAB PO SCH (07:30)
[2022-02-05] MEDS ORDERED: LIDOCAINE 1% MDV 20ML VIAL As Ordered ONE (07:44)
[2022-02-05] MEDS ORDERED: BUPIVACAINE HCL 0.5% 30ML VIAL As Ordered ONE (07:44)
[2022-02-05] MEDS ORDERED: CEFUROXIME INJ 750 MG VIAL (J0697 PER 750MG) As Ordered ONE (08:30)
[2022-02-05] MEDS ORDERED: MIDAZOLAM INJ 2MG/2ML VIAL (J2250 PER 1MG) As Ordered ONE (08:40)
[2022-02-05] MEDS ORDERED: propofoL 200 MG/20 ML VIAL As Ordered ONE (08:40)
[2022-02-05] MEDS ORDERED: fentaNYL 100 MCG/2 ML INJECTION As Ordered ONE (08:40)
[2022-02-05] MEDS ORDERED: PHENYLephrine 500MCG 5ML (100MCG/ML) SYRINGE As Ordered ONE (08:40)
[2022-02-05] MEDS ORDERED: fentaNYL 100 MCG/2 ML INJECTION IV PRN (08:55)
[2022-02-05] MEDS ORDERED: MORPHINE 2 MG/ML 1ML VIAL IV PRN (08:55)
[2022-02-05] MEDS ORDERED: LR 1,000 ML IV SCH (08:55)
[2022-02-05] MEDS ORDERED: oxyCODONE 5MG TAB PO PRN (08:55)
[2022-02-05] MEDS ORDERED: ONDANSETRON 4MG 2ML VIAL IV PRN (08:55)
[2022-02-05] MEDS: METOPROLOL SUCC (TopROL XL) 50MG **XL** TAB PO SCH (09:58)
[2022-02-05] MEDS: ASPIRIN 81MG ENTERIC TABLET PO SCH (09:58)
[2022-02-05] MEDS: PANTOPRAZOLE 40MG TAB (PROTONIX) PO SCH (09:59)
[2022-02-05] MEDS: FUROSEMIDE 40 MG TAB PO SCH (09:59)
[2022-02-05] MEDS: DULoxetine 30MG CAPSULE (CYMBALTA) PO SCH (09:59)
[2022-02-05] MEDS ORDERED: MAG SULF 1GM/100ML (MAG RUN) 1 GM in IV 1 EA IV ONE (10:00)
[2022-02-05] MEDS: oxyCODONE 5MG TAB PO PRN (16:12)
== END 2022-02-05 17:48 | disposition home health service (06) | DRG 253 ==
LOC: M PCU 09:26
PROVIDERS: ADMIT Internal Medicine; ATTEND Internal Medicine
PROC: 30233N1 Transfusion of Nonautologous Red Blood Cells into Peripheral Vein, Percutaneous Approach (ICD-10-PCS; 2022-02-02)
PROC: 047 Lower Arteries, Dilation (ICD-10-PCS; 2022-02-03)
PROC: 04UL0KZ Supplement Left Femoral Artery with Nonautologous Tissue Substitute, Open Approach (ICD-10-PCS; 2022-02-03)
PROC: B40GYZZ Plain Radiography of Left Lower Extremity Arteries using Other Contrast (ICD-10-PCS; 2022-02-03)
PROC: B400YZZ Plain Radiography of Abdominal Aorta using Other Contrast (ICD-10-PCS; 2022-02-03)
PROC: 04CL0ZZ Extirpation of Matter from Left Femoral Artery, Open Approach (ICD-10-PCS; principal; 2022-02-03 11:30)
PROC: 0Y6W0Z0 Detachment at Left 4th Toe, Complete, Open Approach (ICD-10-PCS; 2022-02-05)
DX: E11.52 Type 2 diabetes mellitus with diabetic peripheral angiopathy with gangrene (principal); I50.32 Chronic diastolic (congestive) heart failure; I13.0 Hypertensive heart and chronic kidney disease with heart failure and stage 1 through stage 4 chronic kidney disease, or unspecified chronic kidney disease; D62 Acute posthemorrhagic anemia; I25.10 Atherosclerotic heart disease of native coronary artery without angina pectoris; I25.2 Old myocardial infarction; E11.42 Type 2 diabetes mellitus with diabetic polyneuropathy; E11.621 Type 2 diabetes mellitus with foot ulcer; E11.22 Type 2 diabetes mellitus with diabetic chronic kidney disease; N18.30 Chronic kidney disease, stage 3 unspecified; E78.5 Hyperlipidemia, unspecified; Z66 Do not resuscitate; K21.9 Gastro-esophageal reflux disease without esophagitis; M81.0 Age-related osteoporosis without current pathological fracture; D63.8 Anemia in other chronic diseases classified elsewhere; I70.222 Atherosclerosis of native arteries of extremities with rest pain, left leg; F39 Unspecified mood [affective] disorder; M19.90 Unspecified osteoarthritis, unspecified site; I67.1 Cerebral aneurysm, nonruptured; L97.524 Non-pressure chronic ulcer of other part of left foot with necrosis of bone; Z79.82 Long term (current) use of aspirin; Z79.4 Long term (current) use of insulin; Z89.421 Acquired absence of other right toe(s); Z79.899 Other long term (current) drug therapy; Z87.891 Personal history of nicotine dependence; Z95.5 Presence of coronary angioplasty implant and graft; Z95.820 Peripheral vascular angioplasty status with implants and grafts; Z86.14 Personal history of Methicillin resistant Staphylococcus aureus infection; Z98.41 Cataract extraction status, right eye; Z98.42 Cataract extraction status, left eye

== ENCOUNTER → 2022-02-15 | Outpatient (REF) | payer MEDICARE, MEDICAID ==
[~2022-02-15] MED LIST changes: -ASPIRIN 81MG ENTERIC TABLET PO SCH; +INSUDET SQ
[2022-02-15 17:26] LABS: BASO % 0.4 % (0.0-1.0); EOS # 0.1 10^3/uL (0.0-0.5); EOS % 1.4 % (0.0-3.0); HEMATOCRIT 34.4 % (36.0-47.0); HEMOGLOBIN 10.3 g/dl (12.0-15.5); LYMPH # 1.6 10^3/uL (1.5-5.0); LYMPH % 19.2 % (24.0-44.0); MEAN CORPUSCULAR HEMOGLOBIN 25.6 pg (27.0-33.0); MEAN CORPUSCULAR HGB CONC 29.9 g/dl (32.0-36.5); MEAN CORPUSCULAR VOLUME 85.6 fl (80.0-96.0); MONO # 0.7 10^3/uL (0.0-0.8); MONO % 8.1 % (2.0-8.0); NEUTROPHILS # 5.7 10^3/uL (1.5-8.5); NEUTROPHILS % 70.3 % (36.0-66.0); PLATELET COUNT, AUTOMATED 340 10^3/uL (150-450); RED BLOOD COUNT 4.02 10^6/uL (4.00-5.40); WHITE BLOOD COUNT 8.1 10^3/uL (4.0-10.0)
[2022-02-15 19:06] LABS: ALBUMIN 2.9 GM/DL (3.2-5.2); BILIRUBIN,TOTAL 0.3 MG/DL (0.2-1.0); CALCIUM LEVEL 8.7 MG/DL (8.8-10.2); CREATININE FOR GFR 1.29 MG/DL (0.55-1.30); POTASSIUM SERUM 4.6 MEQ/L (3.5-5.1); TOTAL PROTEIN 7.3 GM/DL (6.4-8.2)
== END ==
LOC: M SFHCCLAY 10:54
PROVIDERS: ATTEND Nurse Practitioner Family
DX: M86.9 Osteomyelitis, unspecified (principal)

== ENCOUNTER 2022-02-17 13:25 | Emergency (ER) | payer MEDICAID, MEDICARE ==
[~2022-02-17] VITALS: Ht 154.9 cm; Wt 55.9 kg
[2022-02-17 14:50] LABS: BASO % 0.2 % (0.0-1.0); EOS % 0.2 % (0.0-3.0); HEMATOCRIT 32.4 % (36.0-47.0); LYMPH % 11.9 % (24.0-44.0); MEAN CORPUSCULAR HEMOGLOBIN 25.5 pg (27.0-33.0); MEAN CORPUSCULAR HGB CONC 30.9 g/dl (32.0-36.5); MEAN CORPUSCULAR VOLUME 82.7 fl (80.0-96.0); MONO # 0.8 10^3/uL (0.0-0.8); MONO % 9.2 % (2.0-8.0); NEUTROPHILS # 6.4 10^3/uL (1.5-8.5); PLATELET COUNT, AUTOMATED 263 10^3/uL (150-450); RED BLOOD COUNT 3.92 10^6/uL (4.00-5.40); WHITE BLOOD COUNT 8.3 10^3/uL (4.0-10.0)
[2022-02-17 15:34] LABS: ALBUMIN 2.8 GM/DL (3.2-5.2); BILIRUBIN,DIRECT 0.2 MG/DL (0.0-0.2); BILIRUBIN,TOTAL 0.4 MG/DL (0.2-1.0); CREATININE FOR GFR 1.17 MG/DL (0.55-1.30); GLOMERULAR FILTRATION RATE 48.1 (>39); POTASSIUM SERUM 4.1 MEQ/L (3.5-5.1); TOTAL PROTEIN 7.3 GM/DL (6.4-8.2)
[2022-02-17 15:51] LABS: CK-MB VALUE MASS < 1.0 NG/ML (<3.6); CPK CREATINE PHOSPHOKINASE 56 U/L (26-192); MB/CK RELATIVE INDEX 1.79 (< OR =4)
[2022-02-17 19:00] VITALS: BP 133/63
[2022-02-17] MEDS ORDERED: NIRMATRELVIR/RITONAVIR (RENAL) CO-PACK (EUA) PO SCH ×2 (21:00)
== END 2022-02-17 19:35 | disposition home or self-care (01) ==
LOC: M ED 13:25
DX: U07.1 COVID-19 (principal); Z95.5 Presence of coronary angioplasty implant and graft; I25.2 Old myocardial infarction; I25.10 Atherosclerotic heart disease of native coronary artery without angina pectoris; E11.9 Type 2 diabetes mellitus without complications; I12.9 Hypertensive chronic kidney disease with stage 1 through stage 4 chronic kidney disease, or unspecified chronic kidney disease; Z86.14 Personal history of Methicillin resistant Staphylococcus aureus infection; I67.1 Cerebral aneurysm, nonruptured; Z79.82 Long term (current) use of aspirin; Z79.899 Other long term (current) drug therapy

== ENCOUNTER → 2022-02-23 | Outpatient (CLI) | payer MEDICARE, MEDICAID ==
[~2022-02-23] MED LIST changes: -DOXY-350 PO; +DOXY-444 PO
== END ==
LOC: M CLY 15:39
PROVIDERS: ATTEND Nurse Practitioner Family
DX: M25.512 Pain in left shoulder (principal)

== ENCOUNTER 2022-03-07 09:35 | Inpatient (IN) | payer MEDICAID, MEDICARE ==
[~2022-03-07] VITALS: Ht 152.4 cm; Wt 63.5 kg
[2022-03-07] MEDS ORDERED: NS 500 ML IV ONE (11:30)
[2022-03-07] MEDS ORDERED: MORPHINE 2 MG/ML 1ML VIAL IV ONE (11:30)
[2022-03-07 12:22] LABS: BASO % 0.1 % (0.0-1.0); EOS % 0.1 % (0.0-3.0); HEMATOCRIT 35.9 % (36.0-47.0); LYMPH % 6.1 % (24.0-44.0); MEAN CORPUSCULAR HEMOGLOBIN 24.7 pg (27.0-33.0); MEAN CORPUSCULAR HGB CONC 30.6 g/dl (32.0-36.5); MEAN CORPUSCULAR VOLUME 80.7 fl (80.0-96.0); MONO % 6.1 % (2.0-8.0); NEUTROPHILS # 13.9 10^3/uL (1.5-8.5); NEUTROPHILS % 86.7 % (36.0-66.0); PLATELET COUNT, AUTOMATED 327 10^3/uL (150-450); RED BLOOD COUNT 4.45 10^6/uL (4.00-5.40)
[2022-03-07 12:41] LABS: VENOUS BASE EXCESS 4.7 (-2.0-2.0); VENOUS HCO3 31.9 MEQ/L (23.0-27.0); VENOUS PARTIAL PRESSURE CO2 60.1 mmHg (38.0-50.0); VENOUS PARTIAL PRESSURE O2 38.1 mmHg (30.0-50.0); VENOUS PH 7.343 UNITS (7.330-7.430); VENOUS TOTAL CO2 33.8 MEQ/L (24.0-28.0)
[2022-03-07] MEDS ORDERED: ISOVUE-370 76% 100ML VIAL As Ordered ONE (12:50)
[2022-03-07 13:10] LABS: CK-MB VALUE MASS 1.2 NG/ML (<3.6)
[2022-03-07] MEDS ORDERED: ASPIRIN 81 MG CHEW TABLET PO ONE (13:25)
[2022-03-07] MEDS ORDERED: NS 1,000 ML IV ONE (15:35)
[2022-03-07] MEDS ORDERED: PIPERACILLIN/TAZOBACTAM SOD 3.375 GM in D5W MINI-BAG PLUS 50 ML IV ONE (15:40)
[2022-03-07] MEDS ORDERED: VANCOMYCIN HCL 1,000 MG, VIAL MATE ADAPTER 1 EACH in NS 250 ML IV ONE ×2 (16:15→21:00)
[2022-03-07] MEDS ORDERED: GLUCAGON INJ 1MG VIAL SC PRN (16:55)
[2022-03-07] MEDS ORDERED: GLUCOSE 4GM CHEW TABLET PO PRN (16:55)
[2022-03-07] MEDS ORDERED: DEXTROSE 50% 50 ML SYRINGE IV PRN (16:55)
[2022-03-07] MEDS ORDERED: POTASSIUM CHLORIDE 10MEQ SR TABLET PO ONE (16:55)
[2022-03-07] MEDS: INSULIN LISPRO (NovoLOG) PER UNIT SC SCH (17:30)
[2022-03-07] MEDS ORDERED: VANCOMYCIN HCL 1,000 MG, VIAL MATE ADAPTER 1 EACH in NS 250 ML IV SCH (17:55)
[2022-03-07] MEDS ORDERED: HOME MED LIST COMPLETE! XX SCH (18:40)
[2022-03-07] MEDS ORDERED: DICL1GEL3 TOP (18:41)
[2022-03-07] MEDS: PIPERACILLIN/TAZOBACTAM SOD 3.375 GM in D5W MINI-BAG PLUS 50 ML IV SCH ×2 (18:48→23:39)
[2022-03-07] MEDS: MORPHINE 2 MG/ML 1ML VIAL IV PRN (18:49)
[2022-03-07] MEDS ORDERED: MORPHINE 4 MG/ML 1ML VIAL IV ONE (20:55)
[2022-03-07] MEDS ORDERED: traMADol 50 MG TAB PO PRN (21:00)
[2022-03-07] MEDS: GABAPENTIN 400MG CAP PO SCH (21:44)
[2022-03-07] MEDS: ULTRACET TAB PO SCH (21:44)
[2022-03-07] MEDS: DICLOFENAC EPOLAMINE 1.3 % PATCH TOP SCH (21:52)
[2022-03-07] MEDS: LEVEMIR (INSULIN DETEMIR) 1 UNITS/0.01ML SC SCH (22:01)
[2022-03-08] MEDS: NS 1,000 ML IV SCH ×2 (01:18→15:24)
[2022-03-08] MEDS ORDERED: VANCOMYCIN HCL 750 MG, VIAL MATE ADAPTER 1 EACH in D5W 250 ML IV SCH (03:00)
[2022-03-08] MEDS: PIPERACILLIN/TAZOBACTAM SOD 3.375 GM in D5W MINI-BAG PLUS 50 ML IV SCH ×4 (06:09→18:23)
[2022-03-08 06:21] LABS: BASO % 0.1 % (0.0-1.0); EOS # 0.1 10^3/uL (0.0-0.5); EOS % 0.3 % (0.0-3.0); HEMATOCRIT 33.8 % (36.0-47.0); HEMOGLOBIN 10.2 g/dl (12.0-15.5); LYMPH % 6.4 % (24.0-44.0); MEAN CORPUSCULAR HEMOGLOBIN 24.8 pg (27.0-33.0); MEAN CORPUSCULAR HGB CONC 30.2 g/dl (32.0-36.5); MONO # 0.5 10^3/uL (0.0-0.8); MONO % 3.3 % (2.0-8.0); NEUTROPHILS # 13.9 10^3/uL (1.5-8.5); NEUTROPHILS % 89.3 % (36.0-66.0); PLATELET COUNT, AUTOMATED 272 10^3/uL (150-450); RED BLOOD COUNT 4.12 10^6/uL (4.00-5.40); WHITE BLOOD COUNT 15.6 10^3/uL (4.0-10.0)
[2022-03-08 07:05] LABS: BLOOD UREA NITROGEN 30 MG/DL (9-23); CALCIUM LEVEL 8.3 MG/DL (8.3-10.6); CARBON DIOXIDE LEVEL 26 MMOL/L (20-31); CHLORIDE LEVEL 98 MMOL/L (98-107); CREATININE FOR GFR 0.95 MG/DL (0.55-1.30); GLOMERULAR FILTRATION RATE > 60.0 (>39); GLUCOSE, FASTING 137 MG/DL (74-106); SODIUM LEVEL 136 MMOL/L (136-145)
[2022-03-08] MEDS: INSULIN LISPRO (NovoLOG) PER UNIT SC SCH ×4 (07:30→21:38)
[2022-03-08] MEDS: LEVEMIR (INSULIN DETEMIR) 1 UNITS/0.01ML SC SCH ×2 (09:00→20:42)
[2022-03-08] MEDS: DICLOFENAC EPOLAMINE 1.3 % PATCH TOP SCH ×2 (09:00→20:42)
[2022-03-08] MEDS: ULTRACET TAB PO SCH ×3 (09:00→17:17)
[2022-03-08] MEDS: DULoxetine 30MG CAPSULE (CYMBALTA) PO SCH (09:14)
[2022-03-08] MEDS: ATORVASTATIN 20 MG TAB PO SCH (09:14)
[2022-03-08] MEDS: MORPHINE 2 MG/ML 1ML VIAL IV PRN (09:18)
[2022-03-08] MEDS: ASPIRIN 81MG ENTERIC TABLET PO SCH (10:16)
[2022-03-08] MEDS: METOPROLOL SUCC (TopROL XL) 50MG **XL** TAB PO SCH (10:18)
[2022-03-08] MEDS: PANTOPRAZOLE 40MG TAB (PROTONIX) PO SCH (10:18)
[2022-03-08] MEDS ORDERED: LIDOCAINE 1% SDV 30ML VIAL As Ordered ONE (11:57)
[2022-03-08 11:58] LABS: MB/CK RELATIVE INDEX 1.31 (< OR =4)
[2022-03-08] MEDS ORDERED: BUPIVACAINE HCL 0.5% 30ML VIAL As Ordered ONE (11:58)
[2022-03-08] MEDS ORDERED: fentaNYL 100 MCG/2 ML INJECTION As Ordered ONE (12:10)
[2022-03-08] MEDS ORDERED: ZOSYN 3.375GM VIAL As Ordered ONE (12:17)
[2022-03-08 15:15] VITALS: BP 159/81
[2022-03-08 15:53] VITALS: BP 128/54
[2022-03-08] MEDS: VANCOMYCIN HCL 1,000 MG, VIAL MATE ADAPTER 1 EACH in D5W 250 ML IV SCH (17:17)
[2022-03-08 20:00] VITALS: BP 129/58
[2022-03-08] MEDS: GABAPENTIN 400MG CAP PO SCH (20:41)
[2022-03-09 00:19] VITALS: BP 137/68
[2022-03-09] MEDS: PIPERACILLIN/TAZOBACTAM SOD 3.375 GM in D5W MINI-BAG PLUS 50 ML IV SCH ×4 (00:22→21:55)
[2022-03-09] MEDS: ULTRACET TAB PO SCH ×5 (00:22→23:52)
[2022-03-09 04:00] VITALS: BP 113/59
[2022-03-09 07:04] LABS: BASO % 0.1 % (0.0-1.0); EOS % 0.1 % (0.0-3.0); HEMATOCRIT 26.5 % (36.0-47.0); HEMOGLOBIN 8.3 g/dl (12.0-15.5); LYMPH % 6.9 % (24.0-44.0); MEAN CORPUSCULAR HEMOGLOBIN 25.4 pg (27.0-33.0); MEAN CORPUSCULAR HGB CONC 31.3 g/dl (32.0-36.5); MONO # 0.6 10^3/uL (0.0-0.8); NEUTROPHILS # 12.5 10^3/uL (1.5-8.5); NEUTROPHILS % 88.3 % (36.0-66.0); PLATELET COUNT, AUTOMATED 256 10^3/uL (150-450); RED BLOOD COUNT 3.27 10^6/uL (4.00-5.40); WHITE BLOOD COUNT 14.2 10^3/uL (4.0-10.0)
[2022-03-09 07:42] LABS: BLOOD UREA NITROGEN 23 MG/DL (9-23); CALCIUM LEVEL 7.9 MG/DL (8.3-10.6); CARBON DIOXIDE LEVEL 24 MMOL/L (20-31); CHLORIDE LEVEL 100 MMOL/L (98-107); CREATININE FOR GFR 0.82 MG/DL (0.55-1.30); GLOMERULAR FILTRATION RATE > 60.0 (>39); GLUCOSE, FASTING 195 MG/DL (74-106); POTASSIUM SERUM 4.2 MMOL/L (3.5-5.1); SODIUM LEVEL 135 MMOL/L (136-145)
[2022-03-09 07:55] VITALS: BP 149/69
[2022-03-09] MEDS: INSULIN LISPRO (NovoLOG) PER UNIT SC SCH ×4 (08:06→20:56)
[2022-03-09] MEDS: METOPROLOL SUCC (TopROL XL) 50MG **XL** TAB PO SCH (08:07)
[2022-03-09] MEDS: DICLOFENAC EPOLAMINE 1.3 % PATCH TOP SCH ×2 (08:07→21:03)
[2022-03-09] MEDS: DULoxetine 30MG CAPSULE (CYMBALTA) PO SCH (08:07)
[2022-03-09] MEDS: LEVEMIR (INSULIN DETEMIR) 1 UNITS/0.01ML SC SCH ×2 (08:07→21:05)
[2022-03-09] MEDS: ASPIRIN 81MG ENTERIC TABLET PO SCH (08:07)
[2022-03-09] MEDS: PANTOPRAZOLE 40MG TAB (PROTONIX) PO SCH (08:08)
[2022-03-09] MEDS: ATORVASTATIN 20 MG TAB PO SCH (08:08)
[2022-03-09 11:52] VITALS: BP 110/67
[2022-03-09 15:49] VITALS: BP 135/63
[2022-03-09] MEDS: VANCOMYCIN HCL 1,000 MG, VIAL MATE ADAPTER 1 EACH in D5W 250 ML IV SCH (18:53)
[2022-03-09 20:21] VITALS: BP 137/65
[2022-03-09 20:21] LABS: HEMATOCRIT 25.7 % (36.0-47.0); HEMOGLOBIN 7.6 g/dl (12.0-15.5)
[2022-03-09] MEDS: GABAPENTIN 400MG CAP PO SCH (21:04)
[2022-03-09] MEDS: KETOROLAC 30 MG/ML 1ML VIAL IV PRN (21:32)
[2022-03-10] VITALS (11 sets, daily range): BP systolic 111–149; BP diastolic 59–90
[2022-03-10] MEDS: PIPERACILLIN/TAZOBACTAM SOD 3.375 GM in D5W MINI-BAG PLUS 50 ML IV SCH ×2 (01:33→06:42)
[2022-03-10] MEDS: ULTRACET TAB PO SCH ×3 (06:42→18:18)
[2022-03-10 07:21] LABS: BASO % 0.2 % (0.0-1.0); EOS # 0.1 10^3/uL (0.0-0.5); EOS % 1.2 % (0.0-3.0); HEMATOCRIT 25.9 % (36.0-47.0); HEMOGLOBIN 7.6 g/dl (12.0-15.5); LYMPH # 1.8 10^3/uL (1.5-5.0); LYMPH % 17.8 % (24.0-44.0); MEAN CORPUSCULAR HEMOGLOBIN 24.7 pg (27.0-33.0); MEAN CORPUSCULAR HGB CONC 29.3 g/dl (32.0-36.5); MEAN CORPUSCULAR VOLUME 84.1 fl (80.0-96.0); MONO # 0.8 10^3/uL (0.0-0.8); MONO % 7.7 % (2.0-8.0); NEUTROPHILS # 7.3 10^3/uL (1.5-8.5); NEUTROPHILS % 72.7 % (36.0-66.0); PLATELET COUNT, AUTOMATED 232 10^3/uL (150-450); RED BLOOD COUNT 3.08 10^6/uL (4.00-5.40); WHITE BLOOD COUNT 10.1 10^3/uL (4.0-10.0)
[2022-03-10 08:11] LABS: CALCIUM LEVEL 8.5 MG/DL (8.3-10.6); CREATININE FOR GFR 1.04 MG/DL (0.55-1.30); GLOMERULAR FILTRATION RATE 55.1 (>39); POTASSIUM SERUM 4.4 MMOL/L (3.5-5.1)
[2022-03-10] MEDS: ATORVASTATIN 20 MG TAB PO SCH (08:15)
[2022-03-10] MEDS: DICLOFENAC EPOLAMINE 1.3 % PATCH TOP SCH ×2 (08:16→21:20)
[2022-03-10] MEDS: DULoxetine 30MG CAPSULE (CYMBALTA) PO SCH (08:16)
[2022-03-10] MEDS: PANTOPRAZOLE 40MG TAB (PROTONIX) PO SCH (08:16)
[2022-03-10] MEDS: METOPROLOL SUCC (TopROL XL) 50MG **XL** TAB PO SCH (08:16)
[2022-03-10 08:30] LABS: ERYTHROCYTE SEDIMENTATION RATE 106 mm/hr (0-30)
[2022-03-10 09:19] LABS: HEMOGLOBIN A1c 8.3 % (4.0-6.0)
[2022-03-10] MEDS ORDERED: LIDOCAINE 1% MDV 20ML VIAL As Ordered ONE (11:26)
[2022-03-10] MEDS: INSULIN LISPRO (NovoLOG) PER UNIT SC SCH ×2 (13:07→17:30)
[2022-03-10] MEDS: ceFAZolin SOD 2 GM in IV 1 EA IV SCH ×2 (13:07→19:33)
[2022-03-10] MEDS: SODIUM CHLORIDE 0.9% INJ 10 ML SYR IV SCH (18:18)
[2022-03-10 20:07] LABS: HEMATOCRIT 32.1 % (36.0-47.0)
[2022-03-10 20:16] LABS: HEMOGLOBIN 9.9 g/dl (12.0-15.5)
[2022-03-10] MEDS: LEVEMIR (INSULIN DETEMIR) 1 UNITS/0.01ML SC SCH (21:00)
[2022-03-10] MEDS: GABAPENTIN 400MG CAP PO SCH (21:19)
[2022-03-10] MEDS: KETOROLAC 30 MG/ML 1ML VIAL IV PRN (21:26)
[2022-03-11] MEDS: ULTRACET TAB PO SCH ×4 (00:32→18:20)
[2022-03-11 03:54] VITALS: BP 141/68
[2022-03-11] MEDS: ceFAZolin SOD 2 GM in IV 1 EA IV SCH ×3 (03:55→20:07)
[2022-03-11 05:49] LABS: BASO % 0.3 % (0.0-1.0); EOS # 0.1 10^3/uL (0.0-0.5); HEMATOCRIT 32.4 % (36.0-47.0); HEMOGLOBIN 10.2 g/dl (12.0-15.5); LYMPH # 1.2 10^3/uL (1.5-5.0); LYMPH % 15.6 % (24.0-44.0); MEAN CORPUSCULAR HEMOGLOBIN 26.2 pg (27.0-33.0); MEAN CORPUSCULAR HGB CONC 31.5 g/dl (32.0-36.5); MEAN CORPUSCULAR VOLUME 83.1 fl (80.0-96.0); MONO # 0.5 10^3/uL (0.0-0.8); MONO % 6.9 % (2.0-8.0); NEUTROPHILS # 5.9 10^3/uL (1.5-8.5); NEUTROPHILS % 75.6 % (36.0-66.0); PLATELET COUNT, AUTOMATED 215 10^3/uL (150-450); WHITE BLOOD COUNT 7.8 10^3/uL (4.0-10.0)
[2022-03-11] MEDS: SODIUM CHLORIDE 0.9% INJ 10 ML SYR IV SCH ×2 (06:08→18:21)
[2022-03-11 06:19] LABS: BLOOD UREA NITROGEN 23 MG/DL (9-23); CALCIUM LEVEL 7.7 MG/DL (8.3-10.6); CARBON DIOXIDE LEVEL 25 MMOL/L (20-31); CHLORIDE LEVEL 100 MMOL/L (98-107); CREATININE FOR GFR 0.87 MG/DL (0.55-1.30); GLOMERULAR FILTRATION RATE > 60.0 (>39); GLUCOSE, FASTING 241 MG/DL (74-106); POTASSIUM SERUM 4.4 MMOL/L (3.5-5.1); SODIUM LEVEL 134 MMOL/L (136-145)
[2022-03-11 08:33] VITALS: BP 158/78
[2022-03-11] MEDS: DICLOFENAC EPOLAMINE 1.3 % PATCH TOP SCH ×2 (08:40→20:07)
[2022-03-11] MEDS: INSULIN LISPRO (NovoLOG) PER UNIT SC SCH ×3 (08:41→18:20)
[2022-03-11] MEDS: METOPROLOL SUCC (TopROL XL) 50MG **XL** TAB PO SCH (08:41)
[2022-03-11] MEDS: ATORVASTATIN 20 MG TAB PO SCH (08:41)
[2022-03-11] MEDS: CLOPIDOGREL 75 MG TAB PO SCH (08:41)
[2022-03-11] MEDS: DULoxetine 30MG CAPSULE (CYMBALTA) PO SCH (08:42)
[2022-03-11] MEDS: PANTOPRAZOLE 40MG TAB (PROTONIX) PO SCH (08:42)
[2022-03-11] MEDS: ASPIRIN 81MG ENTERIC TABLET PO SCH (09:00)
[2022-03-11] MEDS ORDERED: MOM 30ML SUSPENSION UDC PO PRN (11:35)
[2022-03-11 14:00] VITALS: BP 121/73
[2022-03-11] MEDS: KETOROLAC 30 MG/ML 1ML VIAL IV PRN (17:18)
[2022-03-11] MEDS: GABAPENTIN 400MG CAP PO SCH (20:07)
[2022-03-11 20:10] VITALS: BP 138/71
[2022-03-11] MEDS: LEVEMIR (INSULIN DETEMIR) 1 UNITS/0.01ML SC SCH (20:20)
[2022-03-12] MEDS: ULTRACET TAB PO SCH ×5 (01:22→23:56)
[2022-03-12] MEDS: ceFAZolin SOD 2 GM in IV 1 EA IV SCH ×3 (05:43→20:56)
[2022-03-12] MEDS: SODIUM CHLORIDE 0.9% INJ 10 ML SYR IV SCH ×2 (05:44→17:16)
[2022-03-12 06:00] VITALS: BP 154/78
[2022-03-12 06:46] LABS: BASO % 0.2 % (0.0-1.0); EOS # 0.1 10^3/uL (0.0-0.5); EOS % 0.9 % (0.0-3.0); HEMATOCRIT 31.4 % (36.0-47.0); HEMOGLOBIN 9.9 g/dl (12.0-15.5); LYMPH % 11.4 % (24.0-44.0); MEAN CORPUSCULAR HEMOGLOBIN 26.2 pg (27.0-33.0); MEAN CORPUSCULAR HGB CONC 31.5 g/dl (32.0-36.5); MEAN CORPUSCULAR VOLUME 83.1 fl (80.0-96.0); MONO # 0.6 10^3/uL (0.0-0.8); MONO % 7.2 % (2.0-8.0); NEUTROPHILS # 6.7 10^3/uL (1.5-8.5); NEUTROPHILS % 79.6 % (36.0-66.0); PLATELET COUNT, AUTOMATED 197 10^3/uL (150-450); RED BLOOD COUNT 3.78 10^6/uL (4.00-5.40); WHITE BLOOD COUNT 8.5 10^3/uL (4.0-10.0)
[2022-03-12 07:29] LABS: BLOOD UREA NITROGEN 18 MG/DL (9-23); CALCIUM LEVEL 7.8 MG/DL (8.3-10.6); CARBON DIOXIDE LEVEL 24 MMOL/L (20-31); CHLORIDE LEVEL 100 MMOL/L (98-107); CREATININE FOR GFR 0.78 MG/DL (0.55-1.30); GLOMERULAR FILTRATION RATE > 60.0 (>39); GLUCOSE, FASTING 135 MG/DL (74-106); POTASSIUM SERUM 4.4 MMOL/L (3.5-5.1); SODIUM LEVEL 133 MMOL/L (136-145)
[2022-03-12] MEDS: DULoxetine 30MG CAPSULE (CYMBALTA) PO SCH (08:17)
[2022-03-12] MEDS: ATORVASTATIN 20 MG TAB PO SCH (08:17)
[2022-03-12] MEDS: DICLOFENAC EPOLAMINE 1.3 % PATCH TOP SCH ×2 (08:17→20:57)
[2022-03-12] MEDS: PANTOPRAZOLE 40MG TAB (PROTONIX) PO SCH (08:17)
[2022-03-12] MEDS: INSULIN LISPRO (NovoLOG) PER UNIT SC SCH ×3 (08:17→17:15)
[2022-03-12] MEDS: ASPIRIN 81MG ENTERIC TABLET PO SCH (08:17)
[2022-03-12] MEDS: CLOPIDOGREL 75 MG TAB PO SCH (08:17)
[2022-03-12] MEDS ORDERED: FUROSEMIDE 40MG/4ML VIAL (J1940) IV ONE (09:25)
[2022-03-12] MEDS: METOPROLOL SUCC (TopROL XL) 50MG **XL** TAB PO SCH (11:19)
[2022-03-12 14:00] VITALS: BP 160/75
[2022-03-12] MEDS: MORPHINE 2 MG/ML 1ML VIAL IV PRN (17:16)
[2022-03-12] MEDS: DOCUSATE SODIUM 100MG CAPSULE PO SCH (20:56)
[2022-03-12] MEDS: GABAPENTIN 400MG CAP PO SCH (20:56)
[2022-03-12] MEDS ORDERED: PANTOPRAZOLE 40MG VIAL IV ONE (21:00)
[2022-03-12] MEDS: LEVEMIR (INSULIN DETEMIR) 1 UNITS/0.01ML SC SCH (21:18)
[2022-03-12 21:43] LABS: HEMATOCRIT 32.5 % (36.0-47.0); HEMOGLOBIN 10.1 g/dl (12.0-15.5)
[2022-03-12 22:00] VITALS: BP 163/75
[2022-03-13] MEDS: ceFAZolin SOD 2 GM in IV 1 EA IV SCH ×3 (05:00→19:58)
[2022-03-13] MEDS: SODIUM CHLORIDE 0.9% INJ 10 ML SYR IV SCH ×2 (05:30→17:45)
[2022-03-13] MEDS: MORPHINE 2 MG/ML 1ML VIAL IV PRN ×2 (05:36→12:10)
[2022-03-13 06:00] VITALS: BP 150/79
[2022-03-13 06:26] LABS: BASO % 0.2 % (0.0-1.0); EOS # 0.1 10^3/uL (0.0-0.5); EOS % 1.1 % (0.0-3.0); HEMATOCRIT 31.2 % (36.0-47.0); HEMOGLOBIN 9.7 g/dl (12.0-15.5); LYMPH # 1.4 10^3/uL (1.5-5.0); MEAN CORPUSCULAR HEMOGLOBIN 25.9 pg (27.0-33.0); MEAN CORPUSCULAR HGB CONC 31.1 g/dl (32.0-36.5); MEAN CORPUSCULAR VOLUME 83.4 fl (80.0-96.0); MONO # 0.7 10^3/uL (0.0-0.8); MONO % 7.8 % (2.0-8.0); NEUTROPHILS # 6.1 10^3/uL (1.5-8.5); NEUTROPHILS % 73.1 % (36.0-66.0); PLATELET COUNT, AUTOMATED 213 10^3/uL (150-450); RED BLOOD COUNT 3.74 10^6/uL (4.00-5.40); WHITE BLOOD COUNT 8.3 10^3/uL (4.0-10.0)
[2022-03-13 07:05] LABS: BLOOD UREA NITROGEN 14 MG/DL (9-23); CALCIUM LEVEL 7.5 MG/DL (8.3-10.6); CARBON DIOXIDE LEVEL 27 MMOL/L (20-31); CHLORIDE LEVEL 100 MMOL/L (98-107); CREATININE FOR GFR 0.76 MG/DL (0.55-1.30); GLOMERULAR FILTRATION RATE > 60.0 (>39); GLUCOSE, FASTING 83 MG/DL (74-106); POTASSIUM SERUM 4.3 MMOL/L (3.5-5.1); SODIUM LEVEL 135 MMOL/L (136-145)
[2022-03-13] MEDS: INSULIN LISPRO (NovoLOG) PER UNIT SC SCH ×3 (07:13→17:22)
[2022-03-13] MEDS: ASPIRIN 81MG ENTERIC TABLET PO SCH (08:23)
[2022-03-13] MEDS: DOCUSATE SODIUM 100MG CAPSULE PO SCH ×2 (08:23→20:05)
[2022-03-13] MEDS: PANTOPRAZOLE 40MG TAB (PROTONIX) PO SCH (08:23)
[2022-03-13] MEDS: ATORVASTATIN 20 MG TAB PO SCH (08:23)
[2022-03-13] MEDS: METOPROLOL SUCC (TopROL XL) 50MG **XL** TAB PO SCH (08:28)
[2022-03-13] MEDS: CLOPIDOGREL 75 MG TAB PO SCH (08:28)
[2022-03-13] MEDS: DULoxetine 30MG CAPSULE (CYMBALTA) PO SCH (08:28)
[2022-03-13] MEDS: DICLOFENAC EPOLAMINE 1.3 % PATCH TOP SCH ×2 (08:29→20:05)
[2022-03-13] MEDS: ULTRACET TAB PO SCH ×3 (09:24→17:44)
[2022-03-13] MEDS ORDERED: KETOROLAC TROMETHAMINE 10 MG TAB PO ONE (11:00)
[2022-03-13 12:44] LABS: HEMATOCRIT 35.8 % (36.0-47.0); HEMOGLOBIN 11.1 g/dl (12.0-15.5)
[2022-03-13] MEDS ORDERED: KETOROLAC TROMETHAMINE 10 MG TAB PO PRN (13:20)
[2022-03-13] MEDS ORDERED: oxyCODONE 5MG TAB PO PRN (13:20)
[2022-03-13] MEDS ORDERED: FUROSEMIDE 40MG/4ML VIAL (J1940) IV ONE (13:30)
[2022-03-13] MEDS: SODIUM CHLORIDE 0.9% INJ 10 ML SYR IV PRN ×2 (14:55→21:02)
[2022-03-13] MEDS: GABAPENTIN 400MG CAP PO SCH (20:05)
[2022-03-13] MEDS: LEVEMIR (INSULIN DETEMIR) 1 UNITS/0.01ML SC SCH (21:06)
[2022-03-14] MEDS: ULTRACET TAB PO SCH ×4 (00:12→17:49)
[2022-03-14] MEDS: ceFAZolin SOD 2 GM in IV 1 EA IV SCH ×3 (04:30→20:02)
[2022-03-14] MEDS: SODIUM CHLORIDE 0.9% INJ 10 ML SYR IV SCH ×2 (05:32→17:48)
[2022-03-14 05:38] VITALS: BP 154/76
[2022-03-14 06:30] LABS: BASO % 0.1 % (0.0-1.0); EOS # 0.1 10^3/uL (0.0-0.5); EOS % 1.3 % (0.0-3.0); HEMATOCRIT 31.4 % (36.0-47.0); HEMOGLOBIN 9.5 g/dl (12.0-15.5); LYMPH # 1.1 10^3/uL (1.5-5.0); LYMPH % 15.8 % (24.0-44.0); MEAN CORPUSCULAR HEMOGLOBIN 25.6 pg (27.0-33.0); MEAN CORPUSCULAR HGB CONC 30.3 g/dl (32.0-36.5); MEAN CORPUSCULAR VOLUME 84.6 fl (80.0-96.0); MONO # 0.6 10^3/uL (0.0-0.8); MONO % 8.1 % (2.0-8.0); NEUTROPHILS # 5.1 10^3/uL (1.5-8.5); PLATELET COUNT, AUTOMATED 216 10^3/uL (150-450); RED BLOOD COUNT 3.71 10^6/uL (4.00-5.40); WHITE BLOOD COUNT 6.9 10^3/uL (4.0-10.0)
[2022-03-14 07:01] LABS: BLOOD UREA NITROGEN 17 MG/DL (9-23); CALCIUM LEVEL 7.1 MG/DL (8.3-10.6); CARBON DIOXIDE LEVEL 25 MMOL/L (20-31); CHLORIDE LEVEL 98 MMOL/L (98-107); CREATININE FOR GFR 0.73 MG/DL (0.55-1.30); GLOMERULAR FILTRATION RATE > 60.0 (>39); GLUCOSE, FASTING 189 MG/DL (74-106); POTASSIUM SERUM 4.3 MMOL/L (3.5-5.1); SODIUM LEVEL 133 MMOL/L (136-145)
[2022-03-14] MEDS: INSULIN LISPRO (NovoLOG) PER UNIT SC SCH ×3 (07:30→17:30)
[2022-03-14 07:35] VITALS: BP 150/72
[2022-03-14] MEDS: CLOPIDOGREL 75 MG TAB PO SCH (08:21)
[2022-03-14] MEDS: GABAPENTIN 300 MG CAP PO SCH (08:21)
[2022-03-14] MEDS: PANTOPRAZOLE 40MG TAB (PROTONIX) PO SCH (08:22)
[2022-03-14] MEDS: METOPROLOL SUCC (TopROL XL) 50MG **XL** TAB PO SCH (08:23)
[2022-03-14] MEDS: DICLOFENAC EPOLAMINE 1.3 % PATCH TOP SCH ×2 (09:21→20:10)
[2022-03-14] MEDS: DOCUSATE SODIUM 100MG CAPSULE PO SCH ×2 (09:21→20:02)
[2022-03-14] MEDS: ASPIRIN 81MG ENTERIC TABLET PO SCH (09:21)
[2022-03-14] MEDS: ATORVASTATIN 20 MG TAB PO SCH (09:21)
[2022-03-14] MEDS: DULoxetine 30MG CAPSULE (CYMBALTA) PO SCH (09:21)
[2022-03-14 15:27] VITALS: BP 167/75
[2022-03-14 15:35] VITALS: BP 140/82
[2022-03-14] MEDS ORDERED: PILL CUTTER 1 EACH XX PRN (17:35)
[2022-03-14] MEDS: SPIRONOLACTONE 12.5MG PER 1/2 TABLET PO SCH (17:49)
[2022-03-14] MEDS: LOSARTAN 25 MG TAB PO SCH (17:52)
[2022-03-14] MEDS: GABAPENTIN 400MG CAP PO SCH (20:02)
[2022-03-14] MEDS ORDERED: trandolapriL 1 MG TAB PO SCH (21:00)
[2022-03-14] MEDS ORDERED: FERROUS SULFATE 325MG TAB PO SCH (21:00)
[2022-03-14] MEDS: SODIUM CHLORIDE 0.9% INJ 10 ML SYR IV PRN (21:28)
[2022-03-14] MEDS: LEVEMIR (INSULIN DETEMIR) 1 UNITS/0.01ML SC SCH (21:33)
[2022-03-14 22:00] VITALS: BP 168/76
[2022-03-15] MEDS: ULTRACET TAB PO SCH ×4 (02:07→17:49)
[2022-03-15] MEDS: ceFAZolin SOD 2 GM in IV 1 EA IV SCH ×2 (04:34→12:22)
[2022-03-15] MEDS: SODIUM CHLORIDE 0.9% INJ 10 ML SYR IV SCH ×2 (05:39→17:51)
[2022-03-15 06:00] VITALS: BP 125/58
[2022-03-15 07:05] LABS: FERRITIN 725.9 NG/ML (7.3-270.7); IRON (FE) 12 UG/DL (50-170); PERCENT SATURATION 6.3 % (13.2-45.0); TOTAL IRON BINDING CAPACITY 192 UG/DL (250-425); VITAMIN B12 LEVEL 452 PG/ML (211-911)
[2022-03-15 07:32] LABS: FOLATE 9.24 NG/ML (>5.4)
[2022-03-15] MEDS ORDERED: FERRIC CARBOXYMALTOSE INJ 1,000 MG, VIAL MATE ADAPTER 1 EACH in NS 250 ML IV ONE (07:40)
[2022-03-15] MEDS ORDERED: FUROSEMIDE 40 MG TAB PO SCH (09:00)
[2022-03-15] MEDS ORDERED: DAPAGLIFLOZIN PROPANEDIOL 10MG TABLET (FARXIGA) PO SCH (09:00)
[2022-03-15 09:12] LABS: BASO % 0.1 % (0.0-1.0); EOS % 0.1 % (0.0-3.0); HEMATOCRIT 29.9 % (36.0-47.0); HEMOGLOBIN 9.5 g/dl (12.0-15.5); LYMPH # 0.6 10^3/uL (1.5-5.0); MEAN CORPUSCULAR HEMOGLOBIN 26.5 pg (27.0-33.0); MEAN CORPUSCULAR HGB CONC 31.8 g/dl (32.0-36.5); MEAN CORPUSCULAR VOLUME 83.5 fl (80.0-96.0); MONO # 0.7 10^3/uL (0.0-0.8); MONO % 6.5 % (2.0-8.0); NEUTROPHILS # 9.9 10^3/uL (1.5-8.5); NEUTROPHILS % 87.6 % (36.0-66.0); PLATELET COUNT, AUTOMATED 228 10^3/uL (150-450); RED BLOOD COUNT 3.58 10^6/uL (4.00-5.40); WHITE BLOOD COUNT 11.3 10^3/uL (4.0-10.0)
[2022-03-15] MEDS: GABAPENTIN 300 MG CAP PO SCH (09:16)
[2022-03-15] MEDS: DICLOFENAC EPOLAMINE 1.3 % PATCH TOP SCH (09:16)
[2022-03-15] MEDS: DOCUSATE SODIUM 100MG CAPSULE PO SCH (09:16)
[2022-03-15] MEDS: INSULIN LISPRO (NovoLOG) PER UNIT SC SCH ×3 (09:16→17:30)
[2022-03-15] MEDS: SPIRONOLACTONE 12.5MG PER 1/2 TABLET PO SCH (09:17)
[2022-03-15] MEDS: PANTOPRAZOLE 40MG TAB (PROTONIX) PO SCH (09:17)
[2022-03-15] MEDS: DULoxetine 30MG CAPSULE (CYMBALTA) PO SCH (09:17)
[2022-03-15] MEDS: CLOPIDOGREL 75 MG TAB PO SCH (09:17)
[2022-03-15 09:18] VITALS: BP 125/58
[2022-03-15] MEDS: METOPROLOL SUCC (TopROL XL) 50MG **XL** TAB PO SCH (09:18)
[2022-03-15] MEDS: ATORVASTATIN 20 MG TAB PO SCH (09:18)
[2022-03-15] MEDS: LOSARTAN 25 MG TAB PO SCH (09:18)
[2022-03-15] MEDS: ASPIRIN 81MG ENTERIC TABLET PO SCH (09:19)
[2022-03-15 10:40] LABS: ALBUMIN 1.9 G/DL (3.2-5.2); ALKALINE PHOSPHATASE 105 U/L (46-116); ALT/SGPT 12 U/L (7.0-40); AST/SGOT 25 U/L (<34); BILIRUBIN,TOTAL 0.3 MG/DL (0.3-1.2); BLOOD UREA NITROGEN 18 MG/DL (9-23); CALCIUM LEVEL 7.7 MG/DL (8.3-10.6); CARBON DIOXIDE LEVEL 20 MMOL/L (20-31); CHLORIDE LEVEL 97 MMOL/L (98-107); CREATININE FOR GFR 0.88 MG/DL (0.55-1.30); GLOMERULAR FILTRATION RATE > 60.0 (>39); GLUCOSE, FASTING 214 MG/DL (74-106); POTASSIUM SERUM 4.2 MMOL/L (3.5-5.1); SODIUM LEVEL 131 MMOL/L (136-145); TOTAL PROTEIN 5.3 G/DL (5.7-8.2)
[2022-03-15 14:00] VITALS: BP 121/62
[2022-03-15] MEDS ORDERED: ASCO50TA PO (16:21)
[2022-03-15] MEDS ORDERED: ALDA25TA2 PO (16:21)
[2022-03-15] MEDS ORDERED: DICL1PAT6 TOP (16:21)
[2022-03-15] MEDS ORDERED: GABA-282 PO (16:21)
[2022-03-15] MEDS ORDERED: FERR1TAB8 PO (16:21)
[2022-03-15] MEDS ORDERED: TRAM37.53 PO (16:21)
[2022-03-15] MEDS ORDERED: CEFA2PLA4 IV (16:21)
[2022-03-16] MEDS ORDERED: FERROUS SULFATE 325MG TAB PO SCH (21:00)
[2022-03-16] MEDS ORDERED: ASCORBIC ACID 500 MG TAB PO SCH (21:00)
== END 2022-03-15 17:53 | disposition home health service (06) | DRG 256 ==
LOC: M ED 09:35 → EDBD 09:35 → M ED INP 16:52 → M PCU 03-08 15:06 → M MSPAV 03-11 13:41
PROVIDERS: ADMIT Internal Medicine Nephrology; ATTEND Student in an Organized Health Care Education/Training Program
PROC: 0Y6U0Z0 Detachment at Left 3rd Toe, Complete, Open Approach (ICD-10-PCS; 2022-03-08)
PROC: 0Y6S0Z0 Detachment at Left 2nd Toe, Complete, Open Approach (ICD-10-PCS; principal; 2022-03-08 15:00)
PROC: B246ZZZ Ultrasonography of Right and Left Heart (ICD-10-PCS; 2022-03-09)
PROC: 02HV33Z Insertion of Infusion Device into Superior Vena Cava, Percutaneous Approach (ICD-10-PCS; 2022-03-10)
PROC: 30233N1 Transfusion of Nonautologous Red Blood Cells into Peripheral Vein, Percutaneous Approach (ICD-10-PCS; 2022-03-10)
DX: E11.52 Type 2 diabetes mellitus with diabetic peripheral angiopathy with gangrene (principal); R78.81 Bacteremia; M86.172 Other acute osteomyelitis, left ankle and foot; I50.22 Chronic systolic (congestive) heart failure; I13.0 Hypertensive heart and chronic kidney disease with heart failure and stage 1 through stage 4 chronic kidney disease, or unspecified chronic kidney disease; E87.1 Hypo-osmolality and hyponatremia; I24.8 Other forms of acute ischemic heart disease; L02.612 Cutaneous abscess of left foot; I95.1 Orthostatic hypotension; I25.10 Atherosclerotic heart disease of native coronary artery without angina pectoris; E11.42 Type 2 diabetes mellitus with diabetic polyneuropathy; E78.5 Hyperlipidemia, unspecified; Z66 Do not resuscitate; M25.812 Other specified joint disorders, left shoulder; E11.621 Type 2 diabetes mellitus with foot ulcer; L97.529 Non-pressure chronic ulcer of other part of left foot with unspecified severity; E11.22 Type 2 diabetes mellitus with diabetic chronic kidney disease; N18.30 Chronic kidney disease, stage 3 unspecified; M81.0 Age-related osteoporosis without current pathological fracture; F39 Unspecified mood [affective] disorder; M19.012 Primary osteoarthritis, left shoulder; M75.102 Unspecified rotator cuff tear or rupture of left shoulder, not specified as traumatic; I25.2 Old myocardial infarction; R91.8 Other nonspecific abnormal finding of lung field; E11.69 Type 2 diabetes mellitus with other specified complication; I34.0 Nonrheumatic mitral (valve) insufficiency; B95.61 Methicillin susceptible Staphylococcus aureus infection as the cause of diseases classified elsewhere; I27.20 Pulmonary hypertension, unspecified; D50.9 Iron deficiency anemia, unspecified; Z86.16 Personal history of COVID-19; Z98.41 Cataract extraction status, right eye; Z95.5 Presence of coronary angioplasty implant and graft; Z87.81 Personal history of (healed) traumatic fracture; Z98.42 Cataract extraction status, left eye; Z90.49 Acquired absence of other specified parts of digestive tract; Z95.820 Peripheral vascular angioplasty status with implants and grafts; Z86.14 Personal history of Methicillin resistant Staphylococcus aureus infection; Z89.421 Acquired absence of other right toe(s); Z87.891 Personal history of nicotine dependence

== ENCOUNTER → 2022-03-20 | Outpatient (REF) | payer MEDICARE, MEDICAID ==
[~2022-03-20] MED LIST changes: +ALDA25TA2 PO; +ASCO50TA PO; +CEFA2PLA4 IV; +DICL1GEL3 TOP; +DICL1PAT6 TOP; +FERR1TAB8 PO; +GABA-282 PO; +TRAM37.53 PO
[2022-03-20 17:37] LABS: HEMATOCRIT 31.5 % (36.0-47.0); HEMOGLOBIN 9.7 g/dl (12.0-15.5); MEAN CORPUSCULAR HEMOGLOBIN 25.8 pg (27.0-33.0); MEAN CORPUSCULAR HGB CONC 30.8 g/dl (32.0-36.5); MEAN CORPUSCULAR VOLUME 83.8 fl (80.0-96.0); PLATELET COUNT, AUTOMATED 304 10^3/uL (150-450); RED BLOOD COUNT 3.76 10^6/uL (4.00-5.40); WHITE BLOOD COUNT 7.9 10^3/uL (4.0-10.0)
[2022-03-20 18:32] LABS: CARBON DIOXIDE LEVEL 27 MMOL/L (20-31); CHLORIDE LEVEL 96 MMOL/L (98-107); POTASSIUM SERUM 3.8 MMOL/L (3.5-5.1); SODIUM LEVEL 134 MMOL/L (136-145)
[2022-03-20 18:33] LABS: ERYTHROCYTE SEDIMENTATION RATE 126 mm/hr (0-30)
[2022-03-20 18:38] LABS: BLOOD UREA NITROGEN 13 MG/DL (9-23); GLUCOSE, FASTING 84 MG/DL (74-106)
[2022-03-20 18:40] LABS: CREATININE FOR GFR 0.77 MG/DL (0.55-1.30); GLOMERULAR FILTRATION RATE > 60.0 (>39)
== END ==
LOC: M SHH 16:47
PROVIDERS: ATTEND Internal Medicine Infectious Disease
DX: M86.9 Osteomyelitis, unspecified (principal)

== ENCOUNTER → 2022-03-22 | Outpatient (REF) | payer MEDICARE, MEDICAID | LOC: M SFHCCLAY 07:34 | PROVIDERS: ATTEND Nurse Practitioner Family | DX: M86.172 Other acute osteomyelitis, left ankle and foot (principal); R78.81 Bacteremia ==

== ENCOUNTER → 2022-03-27 | Outpatient (REF) | payer MEDICARE, MEDICAID ==
[2022-03-27 18:12] LABS: BASO % 0.3 % (0.0-1.0); EOS # 0.1 10^3/uL (0.0-0.5); EOS % 1.4 % (0.0-3.0); HEMOGLOBIN 8.7 g/dl (12.0-15.5); LYMPH # 1.3 10^3/uL (1.5-5.0); MEAN CORPUSCULAR HEMOGLOBIN 25.7 pg (27.0-33.0); MEAN CORPUSCULAR VOLUME 85.8 fl (80.0-96.0); MONO # 0.5 10^3/uL (0.0-0.8); MONO % 7.6 % (2.0-8.0); NEUTROPHILS # 4.6 10^3/uL (1.5-8.5); NEUTROPHILS % 69.9 % (36.0-66.0); PLATELET COUNT, AUTOMATED 290 10^3/uL (150-450); RED BLOOD COUNT 3.38 10^6/uL (4.00-5.40); WHITE BLOOD COUNT 6.6 10^3/uL (4.0-10.0)
[2022-03-27 18:46] LABS: ERYTHROCYTE SEDIMENTATION RATE 94 mm/hr (0-30)
== END ==
LOC: M SHH 17:12
PROVIDERS: ATTEND Internal Medicine Infectious Disease
DX: A49.01 Methicillin susceptible Staphylococcus aureus infection, unspecified site (principal)

== ENCOUNTER → 2022-05-31 | Outpatient (REF) | payer MEDICARE, MEDICAID ==
[~2022-05-31] MED LIST changes: +MED REC COMMENT; +MELO15TA28 PO
== END ==
LOC: M SFHCWOUN 11:33
PROVIDERS: ATTEND Surgery
DX: M86.171 Other acute osteomyelitis, right ankle and foot (principal)

== ENCOUNTER 2022-06-05 11:44 | Inpatient (IN) | payer MEDICARE ==
[~2022-06-05] VITALS: Ht 154.9 cm; Wt 60.6 kg
[~2022-06-05 11:44] MED LIST changes: -MED REC COMMENT; -MELO15TA28 PO
[2022-06-05 13:04] LABS: BASO % 0.2 % (0.0-1.0); EOS % 0.3 % (0.0-3.0); HEMATOCRIT 37.2 % (36.0-47.0); HEMOGLOBIN 11.8 g/dl (12.0-15.5); LYMPH # 0.7 10^3/uL (1.5-5.0); LYMPH % 5.6 % (24.0-44.0); MEAN CORPUSCULAR HGB CONC 31.7 g/dl (32.0-36.5); MEAN CORPUSCULAR VOLUME 85.1 fl (80.0-96.0); MONO # 0.9 10^3/uL (0.0-0.8); MONO % 6.5 % (2.0-8.0); NEUTROPHILS # 11.4 10^3/uL (1.5-8.5); NEUTROPHILS % 86.7 % (36.0-66.0); PLATELET COUNT, AUTOMATED 223 10^3/uL (150-450); RED BLOOD COUNT 4.37 10^6/uL (4.00-5.40); WHITE BLOOD COUNT 13.1 10^3/uL (4.0-10.0)
[2022-06-05 13:50] LABS: ALBUMIN 3.7 G/DL (3.2-5.2); BILIRUBIN,DIRECT 0.3 MG/DL (<0.4); BILIRUBIN,TOTAL 0.9 MG/DL (0.3-1.2); CALCIUM LEVEL 9.3 MG/DL (8.3-10.6); CK-MB VALUE MASS 2.1 NG/ML (<3.6); CREATININE FOR GFR 1.61 MG/DL (0.55-1.30); GLOMERULAR FILTRATION RATE 33.3 (>39); MB/CK RELATIVE INDEX 3.18 (< OR =4); POTASSIUM SERUM 4.2 MMOL/L (3.5-5.1); TOTAL PROTEIN 7.9 G/DL (5.7-8.2)
[2022-06-05] MEDS ORDERED: NS 1,000 ML IV SCH (14:15)
[2022-06-05 14:45] LABS: RSV AMPLIFICATION NEGATIVE (NEGATIVE)
[2022-06-05 15:39] LABS: CK-MB VALUE MASS 1.8 NG/ML (<3.6)
[2022-06-05 15:41] LABS: MB/CK RELATIVE INDEX 3.21 (< OR =4)
[2022-06-05] MEDS ORDERED: VANCOMYCIN HCL 1,000 MG, VIAL MATE ADAPTER 1 EACH in NS 250 ML IV SCH (16:45)
[2022-06-05] MEDS ORDERED: GLUCAGON INJ 1MG VIAL SC PRN (17:30)
[2022-06-05] MEDS: INSULIN LISPRO (NovoLOG) PER UNIT SC SCH ×2 (17:30→22:04)
[2022-06-05] MEDS ORDERED: GLUCOSE 4GM CHEW TABLET PO PRN (17:30)
[2022-06-05] MEDS ORDERED: DEXTROSE 50% 50ML SYRINGE IV PRN (17:30)
[2022-06-05] MEDS ORDERED: GABA800T4 PO (18:24)
[2022-06-05] MEDS ORDERED: MELO15TA28 PO (18:25)
[2022-06-05] MEDS ORDERED: MED REC COMMENT (18:27)
[2022-06-05] MEDS ORDERED: HOME MED LIST COMPLETE! XX SCH (18:30)
[2022-06-05] MEDS: PIPERACILLIN/TAZOBACTAM SOD 3.375 GM in D5W MINI-BAG PLUS 50 ML IV SCH (19:57)
[2022-06-05 20:58] VITALS: BP 169/78
[2022-06-05] MEDS: LR 1,000 ML IV SCH (22:05)
[2022-06-05] MEDS: HEPARIN SOD (PORCINE) 5000UNITS/ML 1ML VIAL/SYRINGE SC SCH (22:05)
[2022-06-05] MEDS: GABAPENTIN 300 MG CAP PO SCH (22:05)
[2022-06-05] MEDS ORDERED: VANCOMYCIN HCL 1,000 MG, VIAL MATE ADAPTER 1 EACH in NS 250 ML IV ONE (23:00)
[2022-06-05 23:31] VITALS: BP 144/62
[2022-06-06] VITALS (7 sets, daily range): BP systolic 98–159; BP diastolic 49–76
[2022-06-06] MEDS: PIPERACILLIN/TAZOBACTAM SOD 3.375 GM in D5W MINI-BAG PLUS 50 ML IV SCH ×4 (02:07→20:52)
[2022-06-06] MEDS: HEPARIN SOD (PORCINE) 5000UNITS/ML 1ML VIAL/SYRINGE SC SCH ×3 (05:51→23:08)
[2022-06-06 06:34] LABS: HEMATOCRIT 34.9 % (36.0-47.0); HEMOGLOBIN 10.9 g/dl (12.0-15.5); MEAN CORPUSCULAR HEMOGLOBIN 26.8 pg (27.0-33.0); MEAN CORPUSCULAR HGB CONC 31.2 g/dl (32.0-36.5); PLATELET COUNT, AUTOMATED 244 10^3/uL (150-450); RED BLOOD COUNT 4.06 10^6/uL (4.00-5.40)
[2022-06-06 07:43] LABS: CALCIUM LEVEL 9.3 MG/DL (8.3-10.6); CREATININE FOR GFR 1.52 MG/DL (0.55-1.30); GLOMERULAR FILTRATION RATE 35.6 (>39); MAGNESIUM LEVEL 1.6 MG/DL (1.8-2.4); POTASSIUM SERUM 4.4 MMOL/L (3.5-5.1)
[2022-06-06] MEDS: ASPIRIN 81MG ENTERIC TABLET PO SCH (08:21)
[2022-06-06] MEDS: SUCRALFATE 1 GM TAB PO SCH ×2 (08:21→19:01)
[2022-06-06] MEDS: ATORVASTATIN 20 MG TAB PO SCH (08:21)
[2022-06-06] MEDS: PANTOPRAZOLE 40MG TAB (PROTONIX) PO SCH (08:21)
[2022-06-06] MEDS: LR 1,000 ML IV SCH (08:21)
[2022-06-06] MEDS: ACETAMINOPHEN 500 MG TAB PO PRN (08:23)
[2022-06-06] MEDS: INSULIN LISPRO (NovoLOG) PER UNIT SC SCH ×4 (08:23→20:39)
[2022-06-06] MEDS: VANCOMYCIN HCL 750 MG, VIAL MATE ADAPTER 1 EACH in D5W 250 ML IV SCH ×2 (10:15→23:07)
[2022-06-06] MEDS: MAG SULF 1GM/100ML (MAG RUN) 1 GM in IV 1 EA IV SCH ×2 (12:08→13:36)
[2022-06-06] MEDS: NS 1,000 ML IV SCH (12:23)
[2022-06-06] MEDS ORDERED: NS 500 ML IV ONE (13:35)
[2022-06-06] MEDS: GABAPENTIN 300 MG CAP PO SCH (20:52)
[2022-06-06] MEDS: traMADol 50 MG TAB PO PRN (20:53)
[2022-06-07] VITALS (15 sets, daily range): BP systolic 88–139; BP diastolic 52–73
[2022-06-07] MEDS: PIPERACILLIN/TAZOBACTAM SOD 3.375 GM in D5W MINI-BAG PLUS 50 ML IV SCH ×2 (02:14→08:44)
[2022-06-07] MEDS: NS 1,000 ML IV SCH ×2 (03:24→12:10)
[2022-06-07 05:18] LABS: HEMATOCRIT 26.6 % (36.0-47.0); MEAN CORPUSCULAR HEMOGLOBIN 27.1 pg (27.0-33.0); MEAN CORPUSCULAR HGB CONC 30.8 g/dl (32.0-36.5); MEAN CORPUSCULAR VOLUME 87.8 fl (80.0-96.0); PLATELET COUNT, AUTOMATED 168 10^3/uL (150-450); RED BLOOD COUNT 3.03 10^6/uL (4.00-5.40); WHITE BLOOD COUNT 9.9 10^3/uL (4.0-10.0)
[2022-06-07 05:29] LABS: HEMOGLOBIN 8.2 g/dl (12.0-15.5)
[2022-06-07] MEDS ORDERED: NS 500 ML IV ONE (05:35)
[2022-06-07 05:40] LABS: CALCIUM LEVEL 8.1 MG/DL (8.3-10.6); CREATININE FOR GFR 1.57 MG/DL (0.55-1.30); GLOMERULAR FILTRATION RATE 34.3 (>39); MAGNESIUM LEVEL 1.9 MG/DL (1.8-2.4); PHOSPHORUS LEVEL 3.7 MG/DL (2.4-5.1); POTASSIUM SERUM 4.3 MMOL/L (3.5-5.1)
[2022-06-07] MEDS: HEPARIN SOD (PORCINE) 5000UNITS/ML 1ML VIAL/SYRINGE SC SCH ×3 (06:25→20:53)
[2022-06-07] MEDS ORDERED: NS 1,000 ML IV ONE (06:45)
[2022-06-07] MEDS: INSULIN LISPRO (NovoLOG) PER UNIT SC SCH ×4 (07:30→20:44)
[2022-06-07] MEDS: SUCRALFATE 1 GM TAB PO SCH ×2 (08:44→18:00)
[2022-06-07] MEDS: FERROUS SULFATE 325MG TAB PO SCH (08:44)
[2022-06-07] MEDS: PANTOPRAZOLE 40MG TAB (PROTONIX) PO SCH (08:45)
[2022-06-07] MEDS: ASCORBIC ACID 500 MG TAB PO SCH (08:45)
[2022-06-07] MEDS: ATORVASTATIN 20 MG TAB PO SCH (08:45)
[2022-06-07] MEDS: ASPIRIN 81MG ENTERIC TABLET PO SCH (08:45)
[2022-06-07] MEDS ORDERED: CEFEPIME HCL 2 GM in D5W MINI-BAG PLUS 50 ML IV SCH (09:40)
[2022-06-07] MEDS ORDERED: CEFEPIME HCL 1 GM in D5W MINI-BAG PLUS 50 ML IV SCH (11:00)
[2022-06-07] MEDS ORDERED: ONDANSETRON 4MG 2ML VIAL As Ordered ONE (12:29)
[2022-06-07] MEDS ORDERED: propofoL 200 MG/20 ML VIAL As Ordered ONE (12:29)
[2022-06-07] MEDS ORDERED: LIDOCAINE 2% 100MG/5ML SDV (FOR ANES.) As Ordered ONE (12:29)
[2022-06-07] MEDS ORDERED: fentaNYL 100 MCG/2 ML INJECTION As Ordered ONE (13:37)
[2022-06-07] MEDS ORDERED: VANCOMYCIN HCL 1,000 MG, VIAL MATE ADAPTER 1 EACH in D5W 250 ML IV SCH (14:00)
[2022-06-07] MEDS ORDERED: LIDOCAINE 1% MDV 20ML VIAL As Ordered ONE (14:15)
[2022-06-07] MEDS ORDERED: BUPIVACAINE HCL 0.5% 30ML VIAL As Ordered ONE (14:15)
[2022-06-07] MEDS ORDERED: fentaNYL 100 MCG/2 ML INJECTION IV PRN (14:40)
[2022-06-07] MEDS ORDERED: MORPHINE 2 MG/ML 1ML VIAL IV PRN (14:40)
[2022-06-07] MEDS ORDERED: LR 1,000 ML IV SCH (14:40)
[2022-06-07] MEDS ORDERED: ONDANSETRON 4MG 2ML VIAL IV PRN (14:40)
[2022-06-07] MEDS ORDERED: oxyCODONE 5MG TAB PO PRN (14:40)
[2022-06-07] MEDS ORDERED: ACETAMINOPHEN 1000MG 100ML IV BAG As Ordered ONE (14:43)
[2022-06-07] MEDS: GABAPENTIN 300 MG CAP PO SCH (20:53)
[2022-06-08] VITALS (7 sets, daily range): BP systolic 117–152; BP diastolic 57–86
[2022-06-08] MEDS: NS 1,000 ML IV SCH (04:06)
[2022-06-08] MEDS: HEPARIN SOD (PORCINE) 5000UNITS/ML 1ML VIAL/SYRINGE SC SCH ×3 (05:43→20:15)
[2022-06-08 05:58] LABS: BASO % 0.3 % (0.0-1.0); EOS # 0.1 10^3/uL (0.0-0.5); EOS % 1.2 % (0.0-3.0); HEMATOCRIT 31.5 % (36.0-47.0); HEMOGLOBIN 9.4 g/dl (12.0-15.5); LYMPH % 15.5 % (24.0-44.0); MEAN CORPUSCULAR HGB CONC 29.8 g/dl (32.0-36.5); MEAN CORPUSCULAR VOLUME 90.5 fl (80.0-96.0); MONO # 0.4 10^3/uL (0.0-0.8); MONO % 6.4 % (2.0-8.0); PLATELET COUNT, AUTOMATED 154 10^3/uL (150-450); RED BLOOD COUNT 3.48 10^6/uL (4.00-5.40); WHITE BLOOD COUNT 6.6 10^3/uL (4.0-10.0)
[2022-06-08 06:09] LABS: C REACTIVE PROTEIN QUANTITATIV 19.4 MG/DL (<1.0)
[2022-06-08 06:10] LABS: CALCIUM LEVEL 8.4 MG/DL (8.3-10.6); CREATININE FOR GFR 1.41 MG/DL (0.55-1.30); GLOMERULAR FILTRATION RATE 38.8 (>39); MAGNESIUM LEVEL 1.9 MG/DL (1.8-2.4); PHOSPHORUS LEVEL 3.4 MG/DL (2.4-5.1)
[2022-06-08 07:06] LABS: ERYTHROCYTE SEDIMENTATION RATE 60 mm/hr (0-30)
[2022-06-08] MEDS: INSULIN LISPRO (NovoLOG) PER UNIT SC SCH ×4 (07:30→20:14)
[2022-06-08] MEDS: SUCRALFATE 1 GM TAB PO SCH ×2 (08:18→17:20)
[2022-06-08] MEDS: ASPIRIN 81MG ENTERIC TABLET PO SCH (09:40)
[2022-06-08] MEDS: ATORVASTATIN 20 MG TAB PO SCH (09:41)
[2022-06-08] MEDS: PANTOPRAZOLE 40MG TAB (PROTONIX) PO SCH (09:41)
[2022-06-08] MEDS: ceFAZolin SOD 2 GM in IV 1 EA IV SCH ×2 (09:42→17:20)
[2022-06-08] MEDS: traMADol 50 MG TAB PO PRN (11:13)
[2022-06-08] MEDS: GABAPENTIN 300 MG CAP PO SCH (20:15)
[2022-06-09] VITALS: BP 142/76
[2022-06-09] MEDS: ceFAZolin SOD 2 GM in IV 1 EA IV SCH ×3 (01:06→17:29)
[2022-06-09 04:00] VITALS: BP 146/67
[2022-06-09] MEDS: HEPARIN SOD (PORCINE) 5000UNITS/ML 1ML VIAL/SYRINGE SC SCH ×3 (05:41→20:46)
[2022-06-09] MEDS: INSULIN LISPRO (NovoLOG) PER UNIT SC SCH ×4 (08:49→20:56)
[2022-06-09] MEDS: ATORVASTATIN 20 MG TAB PO SCH (08:50)
[2022-06-09] MEDS: ASCORBIC ACID 500 MG TAB PO SCH (08:50)
[2022-06-09] MEDS: FERROUS SULFATE 325MG TAB PO SCH (08:50)
[2022-06-09] MEDS: SUCRALFATE 1 GM TAB PO SCH ×2 (08:50→17:29)
[2022-06-09] MEDS: ASPIRIN 81MG ENTERIC TABLET PO SCH (08:50)
[2022-06-09] MEDS: PANTOPRAZOLE 40MG TAB (PROTONIX) PO SCH (08:50)
[2022-06-09] MEDS: METOPROLOL TART 25 MG TABLET PO SCH ×2 (08:51→20:46)
[2022-06-09] MEDS ORDERED: NS 1,000 ML IV SCH (11:00)
[2022-06-09 12:00] VITALS: BP 142/70
[2022-06-09 16:48] VITALS: BP 166/82
[2022-06-09 17:15] VITALS: BP 150/69
[2022-06-09] MEDS: ONDANSETRON 4MG 2ML VIAL IV ONE (19:41)
[2022-06-09 20:26] VITALS: BP 160/75
[2022-06-09] MEDS: traMADol 50 MG TAB PO PRN (20:44)
[2022-06-09] MEDS: GABAPENTIN 300 MG CAP PO SCH (20:47)
[2022-06-10] MEDS: ceFAZolin SOD 2 GM in IV 1 EA IV SCH ×3 (00:15→17:27)
[2022-06-10 00:26] VITALS: BP 160/74
[2022-06-10] MEDS: ONDANSETRON 4MG 2ML VIAL IV ONE (00:45)
[2022-06-10] MEDS ORDERED: METOPROLOL TART 25 MG TABLET PO ONE (00:55)
[2022-06-10 04:40] LABS: HEMATOCRIT 28.8 % (36.0-47.0); HEMOGLOBIN 8.6 g/dl (12.0-15.5); MEAN CORPUSCULAR HEMOGLOBIN 26.5 pg (27.0-33.0); MEAN CORPUSCULAR HGB CONC 29.9 g/dl (32.0-36.5); MEAN CORPUSCULAR VOLUME 88.6 fl (80.0-96.0); PLATELET COUNT, AUTOMATED 190 10^3/uL (150-450); RED BLOOD COUNT 3.25 10^6/uL (4.00-5.40); WHITE BLOOD COUNT 10.4 10^3/uL (4.0-10.0)
[2022-06-10 04:46] VITALS: BP 117/56
[2022-06-10 05:16] LABS: CREATININE FOR GFR 1.03 MG/DL (0.55-1.30); GLOMERULAR FILTRATION RATE 55.6 (>39); MAGNESIUM LEVEL 1.7 MG/DL (1.8-2.4); PHOSPHORUS LEVEL 2.3 MG/DL (2.4-5.1)
[2022-06-10] MEDS: HEPARIN SOD (PORCINE) 5000UNITS/ML 1ML VIAL/SYRINGE SC SCH ×3 (06:10→22:16)
[2022-06-10] MEDS ORDERED: MAGNESIUM OXIDE 400MG TAB (MAG-OX) PO ONE (07:00)
[2022-06-10] MEDS: INSULIN LISPRO (NovoLOG) PER UNIT SC SCH ×4 (07:30→20:32)
[2022-06-10] MEDS ORDERED: SODIUM PHOSPHATE INJ 20 MMOL in D5W 250 ML IV ONE (08:00)
[2022-06-10] MEDS: SUCRALFATE 1 GM TAB PO SCH ×2 (08:00→18:00)
[2022-06-10] MEDS: ONDANSETRON 4MG 2ML VIAL IV PRN ×2 (08:08→17:27)
[2022-06-10 08:17] VITALS: BP 155/79
[2022-06-10] MEDS ORDERED: FUROSEMIDE 40 MG TAB PO SCH (09:00)
[2022-06-10] MEDS: ATORVASTATIN 20 MG TAB PO SCH (10:01)
[2022-06-10] MEDS: ASPIRIN 81MG ENTERIC TABLET PO SCH (10:01)
[2022-06-10] MEDS: METOPROLOL TART 25 MG TABLET PO SCH ×2 (10:02→20:32)
[2022-06-10] MEDS: PANTOPRAZOLE 40MG TAB (PROTONIX) PO SCH (10:02)
[2022-06-10 11:56] VITALS: BP 155/65
[2022-06-10 20:29] VITALS: BP 136/67
[2022-06-10] MEDS: GABAPENTIN 300 MG CAP PO SCH (20:32)
[2022-06-11] MEDS: ceFAZolin SOD 2 GM in IV 1 EA IV SCH ×3 (00:09→17:48)
[2022-06-11] MEDS: ONDANSETRON 4MG 2ML VIAL IV PRN (01:16)
[2022-06-11 04:21] LABS: HEMATOCRIT 29.6 % (36.0-47.0); HEMOGLOBIN 8.8 g/dl (12.0-15.5); MEAN CORPUSCULAR HGB CONC 29.7 g/dl (32.0-36.5); MEAN CORPUSCULAR VOLUME 90.8 fl (80.0-96.0); PLATELET COUNT, AUTOMATED 186 10^3/uL (150-450); RED BLOOD COUNT 3.26 10^6/uL (4.00-5.40); WHITE BLOOD COUNT 13.3 10^3/uL (4.0-10.0)
[2022-06-11 04:29] VITALS: BP 157/72
[2022-06-11 04:53] LABS: CALCIUM LEVEL 7.8 MG/DL (8.3-10.6); CREATININE FOR GFR 1.2 MG/DL (0.55-1.30); GLOMERULAR FILTRATION RATE 46.6 (>39); MAGNESIUM LEVEL 1.6 MG/DL (1.8-2.4); PHOSPHORUS LEVEL 2.6 MG/DL (2.4-5.1); POTASSIUM SERUM 4.2 MMOL/L (3.5-5.1)
[2022-06-11] MEDS: HEPARIN SOD (PORCINE) 5000UNITS/ML 1ML VIAL/SYRINGE SC SCH ×3 (06:03→20:26)
[2022-06-11 08:12] VITALS: BP 132/60
[2022-06-11 08:33] LABS: ALBUMIN 2.4 G/DL (3.2-5.2)
[2022-06-11] MEDS ORDERED: MAGNESIUM OXIDE 400MG TAB (MAG-OX) PO SCH (09:00)
[2022-06-11] MEDS: SUCRALFATE 1 GM TAB PO SCH ×2 (09:16→17:47)
[2022-06-11] MEDS: ATORVASTATIN 20 MG TAB PO SCH (09:17)
[2022-06-11] MEDS: ONDANSETRON 4MG TAB PO SCH ×2 (09:17→17:47)
[2022-06-11] MEDS: ASPIRIN 81MG ENTERIC TABLET PO SCH (09:17)
[2022-06-11] MEDS: METOPROLOL TART 25 MG TABLET PO SCH ×2 (09:17→20:26)
[2022-06-11] MEDS: PANTOPRAZOLE 40MG TAB (PROTONIX) PO SCH (09:17)
[2022-06-11] MEDS: FERROUS SULFATE 325MG TAB PO SCH (09:17)
[2022-06-11] MEDS: INSULIN LISPRO (NovoLOG) PER UNIT SC SCH ×4 (09:18→20:21)
[2022-06-11] MEDS: ASCORBIC ACID 500 MG TAB PO SCH (09:18)
[2022-06-11] MEDS: NS 1,000 ML IV SCH ×2 (11:42→23:23)
[2022-06-11] MEDS: ACETAMINOPHEN 500 MG TAB PO PRN ×2 (12:37→23:23)
[2022-06-11 16:29] VITALS: BP 143/71
[2022-06-11 20:00] VITALS: BP 161/72
[2022-06-11] MEDS: GABAPENTIN 300 MG CAP PO SCH (20:25)
[2022-06-12] MEDS: ONDANSETRON 4MG TAB PO SCH ×3 (01:04→16:37)
[2022-06-12] MEDS: ceFAZolin SOD 2 GM in IV 1 EA IV SCH ×3 (01:05→17:44)
[2022-06-12 04:00] VITALS: BP 163/74
[2022-06-12] MEDS: HEPARIN SOD (PORCINE) 5000UNITS/ML 1ML VIAL/SYRINGE SC SCH ×3 (05:32→20:13)
[2022-06-12 05:38] LABS: HEMATOCRIT 28.5 % (36.0-47.0); HEMOGLOBIN 8.6 g/dl (12.0-15.5); MEAN CORPUSCULAR HEMOGLOBIN 26.8 pg (27.0-33.0); MEAN CORPUSCULAR HGB CONC 30.2 g/dl (32.0-36.5); MEAN CORPUSCULAR VOLUME 88.8 fl (80.0-96.0); PLATELET COUNT, AUTOMATED 205 10^3/uL (150-450); RED BLOOD COUNT 3.21 10^6/uL (4.00-5.40); WHITE BLOOD COUNT 12.3 10^3/uL (4.0-10.0)
[2022-06-12 06:06] LABS: CREATININE FOR GFR 1.21 MG/DL (0.55-1.30); GLOMERULAR FILTRATION RATE 46.2 (>39); MAGNESIUM LEVEL 1.7 MG/DL (1.8-2.4); PHOSPHORUS LEVEL 1.6 MG/DL (2.4-5.1); POTASSIUM SERUM 3.9 MMOL/L (3.5-5.1)
[2022-06-12 08:10] VITALS: BP 164/77
[2022-06-12] MEDS: MAGNESIUM OXIDE 400MG TAB (MAG-OX) PO SCH ×2 (08:47→20:13)
[2022-06-12] MEDS: ASPIRIN 81MG ENTERIC TABLET PO SCH (08:48)
[2022-06-12] MEDS: SUCRALFATE 1 GM TAB PO SCH ×2 (08:48→17:44)
[2022-06-12] MEDS: METOPROLOL TART 25 MG TABLET PO SCH ×2 (08:48→20:12)
[2022-06-12] MEDS: ATORVASTATIN 20 MG TAB PO SCH (08:48)
[2022-06-12] MEDS: PANTOPRAZOLE 40MG TAB (PROTONIX) PO SCH (08:48)
[2022-06-12] MEDS: INSULIN LISPRO (NovoLOG) PER UNIT SC SCH ×4 (08:49→20:08)
[2022-06-12 09:11] LABS: ERYTHROCYTE SEDIMENTATION RATE 8 mm/hr (0-30)
[2022-06-12 09:27] LABS: C REACTIVE PROTEIN QUANTITATIV 8.7 MG/DL (<1.0)
[2022-06-12] MEDS ORDERED: FUROSEMIDE 40 MG TAB PO SCH (12:20)
[2022-06-12] MEDS: amLODIPine 5 MG TAB PO SCH (13:37)
[2022-06-12] MEDS: traMADol 50 MG TAB PO PRN (13:43)
[2022-06-12 16:08] VITALS: BP 155/72
[2022-06-12] MEDS: K-PHOS ORIGINAL (POT.ACID PHOSPHATE) 500MG TAB PO SCH (16:36)
[2022-06-12 19:49] VITALS: BP 150/69
[2022-06-12] MEDS: GABAPENTIN 300 MG CAP PO SCH (20:13)
[2022-06-13] MEDS: ONDANSETRON 4MG TAB PO SCH ×2 (00:34→08:33)
[2022-06-13] MEDS: ceFAZolin SOD 2 GM in IV 1 EA IV SCH ×2 (01:05→08:35)
[2022-06-13 04:02] VITALS: BP 155/75
[2022-06-13 05:23] LABS: HEMATOCRIT 28.7 % (36.0-47.0); HEMOGLOBIN 8.8 g/dl (12.0-15.5); MEAN CORPUSCULAR HEMOGLOBIN 27.2 pg (27.0-33.0); MEAN CORPUSCULAR HGB CONC 30.7 g/dl (32.0-36.5); MEAN CORPUSCULAR VOLUME 88.9 fl (80.0-96.0); PLATELET COUNT, AUTOMATED 234 10^3/uL (150-450); RED BLOOD COUNT 3.23 10^6/uL (4.00-5.40); WHITE BLOOD COUNT 13.5 10^3/uL (4.0-10.0)
[2022-06-13] MEDS: HEPARIN SOD (PORCINE) 5000UNITS/ML 1ML VIAL/SYRINGE SC SCH (05:30)
[2022-06-13 05:49] LABS: CALCIUM LEVEL 7.7 MG/DL (8.3-10.6); CREATININE FOR GFR 1.02 MG/DL (0.55-1.30); GLOMERULAR FILTRATION RATE 56.2 (>39); MAGNESIUM LEVEL 1.7 MG/DL (1.8-2.4); PHOSPHORUS LEVEL 1.4 MG/DL (2.4-5.1); POTASSIUM SERUM 3.8 MMOL/L (3.5-5.1)
[2022-06-13 08:13] VITALS: BP 142/66
[2022-06-13] MEDS: FERROUS SULFATE 325MG TAB PO SCH (08:30)
[2022-06-13] MEDS: K-PHOS ORIGINAL (POT.ACID PHOSPHATE) 500MG TAB PO SCH (08:30)
[2022-06-13] MEDS: ASCORBIC ACID 500 MG TAB PO SCH (08:31)
[2022-06-13] MEDS: ASPIRIN 81MG ENTERIC TABLET PO SCH (08:31)
[2022-06-13] MEDS: SUCRALFATE 1 GM TAB PO SCH (08:31)
[2022-06-13] MEDS: ATORVASTATIN 20 MG TAB PO SCH (08:31)
[2022-06-13] MEDS: PANTOPRAZOLE 40MG TAB (PROTONIX) PO SCH (08:32)
[2022-06-13] MEDS: METOPROLOL TART 25 MG TABLET PO SCH (08:32)
[2022-06-13 08:33] VITALS: BP 142/66
[2022-06-13] MEDS: amLODIPine 5 MG TAB PO SCH (08:33)
[2022-06-13] MEDS: INSULIN LISPRO (NovoLOG) PER UNIT SC SCH (08:34)
[2022-06-13] MEDS ORDERED: AMLO1TAB24 PO (08:42)
[2022-06-13] MEDS ORDERED: KPHOS50TA PO (08:42)
[2022-06-13] MEDS ORDERED: MAGN400T2 PO (08:42)
[2022-06-13] MEDS ORDERED: MAGNESIUM OXIDE 400MG TAB (MAG-OX) PO SCH (09:00)
== END 2022-06-13 12:24 | DRG 256 ==
LOC: M ED 11:44 → EDSEX 11:44 → EDBD 11:44 → M ED INP 16:43 → ENRESERV 06-06 12:49 → M PCU 06-06 14:55
PROVIDERS: ADMIT Internal Medicine; ATTEND Internal Medicine
PROC: B246ZZZ Ultrasonography of Right and Left Heart (ICD-10-PCS; 2022-06-07)
PROC: 0Y6R0Z0 Detachment at Right 2nd Toe, Complete, Open Approach (ICD-10-PCS; principal; 2022-06-07 14:45)
DX: E11.52 Type 2 diabetes mellitus with diabetic peripheral angiopathy with gangrene (principal); M86.171 Other acute osteomyelitis, right ankle and foot; N17.9 Acute kidney failure, unspecified; I50.22 Chronic systolic (congestive) heart failure; I13.0 Hypertensive heart and chronic kidney disease with heart failure and stage 1 through stage 4 chronic kidney disease, or unspecified chronic kidney disease; I24.8 Other forms of acute ischemic heart disease; M87.9 Osteonecrosis, unspecified; E87.1 Hypo-osmolality and hyponatremia; E11.621 Type 2 diabetes mellitus with foot ulcer; E11.22 Type 2 diabetes mellitus with diabetic chronic kidney disease; N18.30 Chronic kidney disease, stage 3 unspecified; E78.5 Hyperlipidemia, unspecified; M81.0 Age-related osteoporosis without current pathological fracture; M19.90 Unspecified osteoarthritis, unspecified site; F39 Unspecified mood [affective] disorder; I25.10 Atherosclerotic heart disease of native coronary artery without angina pectoris; B95.1 Streptococcus, group B, as the cause of diseases classified elsewhere; L03.032 Cellulitis of left toe; K21.9 Gastro-esophageal reflux disease without esophagitis; E11.42 Type 2 diabetes mellitus with diabetic polyneuropathy; I25.2 Old myocardial infarction; B95.61 Methicillin susceptible Staphylococcus aureus infection as the cause of diseases classified elsewhere; E11.69 Type 2 diabetes mellitus with other specified complication; Z66 Do not resuscitate; D64.9 Anemia, unspecified; Z86.711 Personal history of pulmonary embolism; Z86.16 Personal history of COVID-19; Z87.81 Personal history of (healed) traumatic fracture; Z95.5 Presence of coronary angioplasty implant and graft; Z95.820 Peripheral vascular angioplasty status with implants and grafts; Z98.41 Cataract extraction status, right eye; Z98.42 Cataract extraction status, left eye; Z90.49 Acquired absence of other specified parts of digestive tract; Z87.891 Personal history of nicotine dependence; Z79.82 Long term (current) use of aspirin; Z79.4 Long term (current) use of insulin; Z89.422 Acquired absence of other left toe(s); Z79.1 Long term (current) use of non-steroidal anti-inflammatories (NSAID); Z79.899 Other long term (current) drug therapy

== ENCOUNTER → 2022-06-13 | Outpatient (CLI) | payer MEDICARE ==
[~2022-06-13] MED LIST changes: +AMLO1TAB24 PO; +DALBAVANCIN 1,500 MG in D5W 250 ML IV ONE; +KPHOS50TA PO; +MED REC COMMENT; +MELO15TA28 PO
== END ==
LOC: M INFU 11:20
PROVIDERS: ATTEND Internal Medicine
DX: A41.01 Sepsis due to Methicillin susceptible Staphylococcus aureus (principal)
CPT/HCPCS: 96365; J0875

== ENCOUNTER → 2022-06-16 | Outpatient (REF) ==
[~2022-06-16] MED LIST changes: -DALBAVANCIN 1,500 MG in D5W 250 ML IV ONE
[2022-06-16 07:10] LABS: HEMATOCRIT 27.2 % (36.0-47.0); HEMOGLOBIN 8.2 g/dl (12.0-15.5); MEAN CORPUSCULAR HEMOGLOBIN 27.2 pg (27.0-33.0); MEAN CORPUSCULAR HGB CONC 30.1 g/dl (32.0-36.5); MEAN CORPUSCULAR VOLUME 90.1 fl (80.0-96.0); PLATELET COUNT, AUTOMATED 194 10^3/uL (150-450); RED BLOOD COUNT 3.02 10^6/uL (4.00-5.40); WHITE BLOOD COUNT 8.9 10^3/uL (4.0-10.0)
[2022-06-16 07:42] LABS: CALCIUM LEVEL 7.6 MG/DL (8.3-10.6); CREATININE FOR GFR 1.21 MG/DL (0.55-1.30); GLOMERULAR FILTRATION RATE 46.2 (>39); MAGNESIUM LEVEL 1.7 MG/DL (1.8-2.4); POTASSIUM SERUM 4.6 MMOL/L (3.5-5.1)
== END ==
PROVIDERS: ATTEND Physician Assistant
DX: I50.9 Heart failure, unspecified (principal)

== ENCOUNTER → 2022-06-21 | Outpatient (REF) ==
[~2022-06-21] MED LIST changes: +INSU100I6 SC; -LEVE1INJ5 SC
[2022-06-21 12:44] LABS: HEMATOCRIT 34.6 % (36.0-47.0); HEMOGLOBIN 10.4 g/dl (12.0-15.5); MEAN CORPUSCULAR HEMOGLOBIN 27.6 pg (27.0-33.0); MEAN CORPUSCULAR HGB CONC 30.1 g/dl (32.0-36.5); MEAN CORPUSCULAR VOLUME 91.8 fl (80.0-96.0); PLATELET COUNT, AUTOMATED 314 10^3/uL (150-450); RED BLOOD COUNT 3.77 10^6/uL (4.00-5.40); WHITE BLOOD COUNT 7.5 10^3/uL (4.0-10.0)
[2022-06-21 13:28] LABS: CALCIUM LEVEL 8.7 MG/DL (8.3-10.6); CREATININE FOR GFR 1.19 MG/DL (0.55-1.30); GLOMERULAR FILTRATION RATE 47.1 (>39); MAGNESIUM LEVEL 2.1 MG/DL (1.8-2.4); PHOSPHORUS LEVEL 3.1 MG/DL (2.4-5.1); POTASSIUM SERUM 4.2 MMOL/L (3.5-5.1)
== END ==
PROVIDERS: ATTEND Physician Assistant
DX: I50.9 Heart failure, unspecified (principal)

== ENCOUNTER → 2022-06-22 | Outpatient (REF) | payer MEDICARE, BC, MEDICAID ==
[2022-06-22 17:40] LABS: HEMATOCRIT 31.3 % (36.0-47.0); HEMOGLOBIN 9.3 g/dl (12.0-15.5); MEAN CORPUSCULAR HEMOGLOBIN 27.2 pg (27.0-33.0); MEAN CORPUSCULAR HGB CONC 29.7 g/dl (32.0-36.5); MEAN CORPUSCULAR VOLUME 91.5 fl (80.0-96.0); PLATELET COUNT, AUTOMATED 334 10^3/uL (150-450); RED BLOOD COUNT 3.42 10^6/uL (4.00-5.40); WHITE BLOOD COUNT 6.3 10^3/uL (4.0-10.0)
[2022-06-22 18:17] LABS: ALBUMIN 2.5 G/DL (3.2-5.2); BILIRUBIN,TOTAL 0.7 MG/DL (0.3-1.2); CALCIUM LEVEL 8.2 MG/DL (8.3-10.6); CREATININE FOR GFR 1.15 MG/DL (0.55-1.30); POTASSIUM SERUM 4.2 MMOL/L (3.5-5.1); TOTAL PROTEIN 6.2 G/DL (5.7-8.2)
== END ==
PROVIDERS: ATTEND Internal Medicine
DX: R05.8 Other specified cough (principal); I50.9 Heart failure, unspecified

== ENCOUNTER → 2022-06-23 | Outpatient (REF) ==
[2022-06-23 09:57] LABS: BASO % 0.4 % (0.0-1.0); EOS % 0.5 % (0.0-3.0); HEMATOCRIT 30.9 % (36.0-47.0); HEMOGLOBIN 9.3 g/dl (12.0-15.5); LYMPH # 1.3 10^3/uL (1.5-5.0); LYMPH % 16.9 % (24.0-44.0); MEAN CORPUSCULAR HGB CONC 30.1 g/dl (32.0-36.5); MEAN CORPUSCULAR VOLUME 89.8 fl (80.0-96.0); MONO # 0.7 10^3/uL (0.0-0.8); NEUTROPHILS # 5.3 10^3/uL (1.5-8.5); NEUTROPHILS % 71.4 % (36.0-66.0); PLATELET COUNT, AUTOMATED 312 10^3/uL (150-450); RED BLOOD COUNT 3.44 10^6/uL (4.00-5.40); WHITE BLOOD COUNT 7.4 10^3/uL (4.0-10.0)
[2022-06-23 10:22] LABS: ALBUMIN 2.7 G/DL (3.2-5.2); BILIRUBIN,TOTAL 0.6 MG/DL (0.3-1.2); CALCIUM LEVEL 8.5 MG/DL (8.3-10.6); CREATININE FOR GFR 1.17 MG/DL (0.55-1.30); MAGNESIUM LEVEL 1.9 MG/DL (1.8-2.4); PERCENT SATURATION 15.4 % (13.2-45.0); PHOSPHORUS LEVEL 3.4 MG/DL (2.4-5.1); POTASSIUM SERUM 3.8 MMOL/L (3.5-5.1); TOTAL PROTEIN 6.4 G/DL (5.7-8.2)
[2022-06-23 10:24] LABS: FERRITIN 580.6 NG/ML (7.3-270.7)
[2022-06-23 15:33] LABS: APPEARANCE, URINE CLEAR (CLEAR); BACTERIA, URINE AUTO NEGATIVE (NEGATIVE); BILIRUBIN, URINE AUTO NEGATIVE (NEGATIVE); BLOOD, URINE BLOOD NEGATIVE (NEGATIVE); COLOR, URINE YELLOW (YELLOW); GLUCOSE, URINE (UA) AUTO 3+ mg/dL (NEGATIVE); KETONE, URINE AUTO NEGATIVE (NEGATIVE); LEUKOCYTE ESTERASE, URINE AUTO TRACE (NEGATIVE); NITRITE, URINE AUTO NEGATIVE (NEGATIVE); PROTEIN, URINE AUTO NEGATIVE (NEGATIVE); RBC, URINE AUTO 1 /HPF (0-3); SQUAMOUS EPITHELIAL CELL UR AU 2 /HPF (0-6); TRANSITIONAL EPITHELIAL AUTO <1 /HPF; UROBILINOGEN, URINE AUTO 0.2 mg/dL (0.0-2.0); WBC, URINE AUTO 3 /HPF (0-3)
[2022-06-23 15:54] LABS: TOTAL PROTEIN,RANDOM URINE 21.9 MG/DL (0.0-14.0)
[2022-06-23 15:59] LABS: CREATININE,RANDOM URINE 33.8 MG/DL
== END ==
PROVIDERS: ATTEND Physician Assistant
DX: N18.9 Chronic kidney disease, unspecified (principal)

== ENCOUNTER → 2022-06-23 | Outpatient (REF) | payer BC, MEDICAID, MEDICARE | PROVIDERS: ATTEND Internal Medicine | DX: I50.9 Heart failure, unspecified (principal) ==

== ENCOUNTER → 2022-06-23 | Outpatient (REF) | payer BC, MEDICAID, MEDICARE | PROVIDERS: ATTEND Internal Medicine | DX: I50.9 Heart failure, unspecified (principal); J90 Pleural effusion, not elsewhere classified ==

== ENCOUNTER → 2022-06-26 | Outpatient (REF) | payer MEDICARE ==
[2022-06-26 10:22] LABS: HEMATOCRIT 32.2 % (36.0-47.0); HEMOGLOBIN 9.5 g/dl (12.0-15.5); MEAN CORPUSCULAR HEMOGLOBIN 26.8 pg (27.0-33.0); MEAN CORPUSCULAR HGB CONC 29.5 g/dl (32.0-36.5); MEAN CORPUSCULAR VOLUME 90.7 fl (80.0-96.0); PLATELET COUNT, AUTOMATED 313 10^3/uL (150-450); RED BLOOD COUNT 3.55 10^6/uL (4.00-5.40); WHITE BLOOD COUNT 6.9 10^3/uL (4.0-10.0)
[2022-06-26 10:53] LABS: CALCIUM LEVEL 8.5 MG/DL (8.3-10.6); CREATININE FOR GFR 1.05 MG/DL (0.55-1.30); GLOMERULAR FILTRATION RATE 54.4 (>39); POTASSIUM SERUM 3.6 MMOL/L (3.5-5.1)
== END ==
PROVIDERS: ATTEND Internal Medicine
DX: I50.9 Heart failure, unspecified (principal)

== ENCOUNTER → 2022-06-27 | Outpatient (REF) | payer MEDICARE | PROVIDERS: ATTEND Internal Medicine | DX: I50.9 Heart failure, unspecified (principal); Z53.8 Procedure and treatment not carried out for other reasons ==

== ENCOUNTER → 2022-06-28 | Outpatient (REF) ==
[2022-06-28 10:27] LABS: HEMOGLOBIN 10.2 g/dl (12.0-15.5); MEAN CORPUSCULAR HEMOGLOBIN 27.2 pg (27.0-33.0); MEAN CORPUSCULAR VOLUME 90.7 fl (80.0-96.0); PLATELET COUNT, AUTOMATED 327 10^3/uL (150-450); RED BLOOD COUNT 3.75 10^6/uL (4.00-5.40); WHITE BLOOD COUNT 6.4 10^3/uL (4.0-10.0)
[2022-06-28 11:13] LABS: CALCIUM LEVEL 8.8 MG/DL (8.3-10.6); CREATININE FOR GFR 1.09 MG/DL (0.55-1.30); GLOMERULAR FILTRATION RATE 52.1 (>39); MAGNESIUM LEVEL 1.9 MG/DL (1.8-2.4); PHOSPHORUS LEVEL 4.1 MG/DL (2.4-5.1); POTASSIUM SERUM 3.7 MMOL/L (3.5-5.1)
== END ==
PROVIDERS: ATTEND Physician Assistant
DX: I50.9 Heart failure, unspecified (principal)

== ENCOUNTER → 2022-07-03 | Outpatient (REF) ==
[2022-07-03 12:27] LABS: CALCIUM LEVEL 8.8 MG/DL (8.3-10.6); CREATININE FOR GFR 1.13 MG/DL (0.55-1.30); POTASSIUM SERUM 4.1 MMOL/L (3.5-5.1)
== END ==
PROVIDERS: ATTEND Physician Assistant
DX: I50.9 Heart failure, unspecified (principal)

== ENCOUNTER → 2022-07-03 | Outpatient (REF) | payer MEDICARE | PROVIDERS: ATTEND Internal Medicine | DX: J81.1 Chronic pulmonary edema (principal); J90 Pleural effusion, not elsewhere classified; J98.11 Atelectasis; I70.0 Atherosclerosis of aorta ==

== ENCOUNTER → 2022-07-05 | Outpatient (REF) ==
[2022-07-05 12:21] LABS: CALCIUM LEVEL 8.8 MG/DL (8.3-10.6); CREATININE FOR GFR 0.98 MG/DL (0.55-1.30); GLOMERULAR FILTRATION RATE 58.9 (>39); POTASSIUM SERUM 3.7 MMOL/L (3.5-5.1)
== END ==
PROVIDERS: ATTEND Physician Assistant
DX: I50.9 Heart failure, unspecified (principal)

== ENCOUNTER → 2022-07-10 | Outpatient (REF) | payer MEDICARE ==
[2022-07-10 13:37] LABS: CREATININE FOR GFR 1.22 MG/DL (0.55-1.30); GLOMERULAR FILTRATION RATE 45.7 (>39); POTASSIUM SERUM 4.7 MMOL/L (3.5-5.1)
== END ==
PROVIDERS: ATTEND Physician Assistant
DX: I50.9 Heart failure, unspecified (principal)

== ENCOUNTER → 2022-07-12 | Outpatient (REF) ==
[2022-07-12 11:43] LABS: CALCIUM LEVEL 9.3 MG/DL (8.3-10.6); CREATININE FOR GFR 1.14 MG/DL (0.55-1.30); GLOMERULAR FILTRATION RATE 49.5 (>39); POTASSIUM SERUM 4.2 MMOL/L (3.5-5.1)
== END ==
PROVIDERS: ATTEND Physician Assistant
DX: I50.9 Heart failure, unspecified (principal)

== ENCOUNTER → 2022-07-17 | Outpatient (REF) ==
[2022-07-17 11:33] LABS: CALCIUM LEVEL 9.6 MG/DL (8.3-10.6); CREATININE FOR GFR 1.51 MG/DL (0.55-1.30); GLOMERULAR FILTRATION RATE 35.8 (>39); POTASSIUM SERUM 4.4 MMOL/L (3.5-5.1)
== END ==
PROVIDERS: ATTEND Physician Assistant
DX: I50.9 Heart failure, unspecified (principal)

== ENCOUNTER → 2022-07-18 | Outpatient (REF) ==
[2022-07-18 11:01] LABS: CALCIUM LEVEL 9.3 MG/DL (8.3-10.6); CREATININE FOR GFR 1.41 MG/DL (0.55-1.30); GLOMERULAR FILTRATION RATE 38.7 (>39); POTASSIUM SERUM 4.4 MMOL/L (3.5-5.1)
== END ==
PROVIDERS: ATTEND Physician Assistant
DX: N18.9 Chronic kidney disease, unspecified (principal)

== ENCOUNTER → 2022-07-19 | Outpatient (REF) ==
[2022-07-19 10:48] LABS: CALCIUM LEVEL 9.8 MG/DL (8.3-10.6); CREATININE FOR GFR 1.29 MG/DL (0.55-1.30); GLOMERULAR FILTRATION RATE 42.9 (>39); POTASSIUM SERUM 4.4 MMOL/L (3.5-5.1)
== END ==
PROVIDERS: ATTEND Physician Assistant
DX: I50.9 Heart failure, unspecified (principal)

== ENCOUNTER → 2022-07-20 | Outpatient (REF) ==
[2022-07-20 14:04] LABS: BLOOD UREA NITROGEN 77 MG/DL (9-23); CALCIUM LEVEL 10.2 MG/DL (8.3-10.6); CARBON DIOXIDE LEVEL 25 MMOL/L (20-31); CHLORIDE LEVEL 98 MMOL/L (98-107); CREATININE FOR GFR 0.93 MG/DL (0.55-1.30); GLOMERULAR FILTRATION RATE > 60.0 (>39); GLUCOSE, FASTING 239 MG/DL (74-106); POTASSIUM SERUM 5.2 MMOL/L (3.5-5.1); SODIUM LEVEL 133 MMOL/L (136-145)
== END ==
PROVIDERS: ATTEND Physician Assistant
DX: N18.9 Chronic kidney disease, unspecified (principal)

== ENCOUNTER → 2022-07-21 | Outpatient (REF) ==
[2022-07-21 10:13] LABS: CALCIUM LEVEL 9.9 MG/DL (8.3-10.6); CREATININE FOR GFR 1.11 MG/DL (0.55-1.30); POTASSIUM SERUM 3.7 MMOL/L (3.5-5.1)
== END ==
PROVIDERS: ATTEND Physician Assistant
DX: N18.9 Chronic kidney disease, unspecified (principal)

== ENCOUNTER → 2022-07-24 | Outpatient (REF) ==
[2022-07-24 11:28] LABS: CALCIUM LEVEL 9.2 MG/DL (8.3-10.6); CREATININE FOR GFR 1.01 MG/DL (0.55-1.30); GLOMERULAR FILTRATION RATE 56.9 (>39)
== END ==
PROVIDERS: ATTEND Physician Assistant
DX: I50.9 Heart failure, unspecified (principal)

== ENCOUNTER → 2022-07-26 | Outpatient (REF) ==
[2022-07-26 11:41] LABS: CALCIUM LEVEL 9.2 MG/DL (8.3-10.6); CREATININE FOR GFR 1.03 MG/DL (0.55-1.30); GLOMERULAR FILTRATION RATE 55.6 (>39); POTASSIUM SERUM 4.5 MMOL/L (3.5-5.1)
== END ==
PROVIDERS: ATTEND Physician Assistant
DX: I50.9 Heart failure, unspecified (principal)

== ENCOUNTER → 2022-07-28 | Outpatient (CLI) | payer MEDICARE, MEDICAID | LOC: M RAD 15:10 | PROVIDERS: ATTEND Internal Medicine Pulmonary Disease | DX: R91.8 Other nonspecific abnormal finding of lung field (principal) ==

== ENCOUNTER → 2022-07-31 | Outpatient (REF) | payer MEDICARE, MEDICAID ==
[2022-07-31 09:44] LABS: BLOOD UREA NITROGEN 22 MG/DL (9-23); CARBON DIOXIDE LEVEL 28 MMOL/L (20-31); CHLORIDE LEVEL 103 MMOL/L (98-107); CREATININE FOR GFR 0.86 MG/DL (0.55-1.30); GLOMERULAR FILTRATION RATE > 60.0 (>39); GLUCOSE, FASTING 111 MG/DL (74-106); PHOSPHORUS LEVEL 3.9 MG/DL (2.4-5.1); POTASSIUM SERUM 4.9 MMOL/L (3.5-5.1); PTH INTACT 45.5 PG/ML (18.5-88.0); SODIUM LEVEL 138 MMOL/L (136-145)
[2022-07-31 09:46] LABS: TOTAL 25(OH) VITAMIN D 24.8 NG/ML (20.0-100.0)
== END ==
PROVIDERS: ATTEND Nurse Practitioner Family
DX: N18.32 Chronic kidney disease, stage 3b (principal); I50.9 Heart failure, unspecified; Z13.29 Encounter for screening for other suspected endocrine disorder

== ENCOUNTER → 2022-08-09 | Outpatient (REF) | payer MEDICARE, MEDICAID ==
[2022-08-09 10:34] LABS: HEMATOCRIT 40.8 % (36.0-47.0); HEMOGLOBIN 12.5 g/dl (12.0-15.5); MEAN CORPUSCULAR HEMOGLOBIN 26.5 pg (27.0-33.0); MEAN CORPUSCULAR HGB CONC 30.6 g/dl (32.0-36.5); MEAN CORPUSCULAR VOLUME 86.6 fl (80.0-96.0); PLATELET COUNT, AUTOMATED 219 10^3/uL (150-450); RED BLOOD COUNT 4.71 10^6/uL (4.00-5.40); WHITE BLOOD COUNT 5.7 10^3/uL (4.0-10.0)
[2022-08-09 10:37] LABS: BASO % 0.5 % (0.0-1.0); EOS # 0.1 10^3/uL (0.0-0.5); EOS % 1.9 % (0.0-3.0); HEMATOCRIT 40.6 % (36.0-47.0); HEMOGLOBIN 12.3 g/dl (12.0-15.5); LYMPH # 1.6 10^3/uL (1.5-5.0); LYMPH % 27.1 % (24.0-44.0); MEAN CORPUSCULAR HEMOGLOBIN 26.3 pg (27.0-33.0); MEAN CORPUSCULAR HGB CONC 30.3 g/dl (32.0-36.5); MEAN CORPUSCULAR VOLUME 86.8 fl (80.0-96.0); MONO # 0.5 10^3/uL (0.0-0.8); MONO % 8.9 % (2.0-8.0); NEUTROPHILS # 3.5 10^3/uL (1.5-8.5); NEUTROPHILS % 60.9 % (36.0-66.0); PLATELET COUNT, AUTOMATED 216 10^3/uL (150-450); RED BLOOD COUNT 4.68 10^6/uL (4.00-5.40); WHITE BLOOD COUNT 5.7 10^3/uL (4.0-10.0)
[2022-08-09 11:06] LABS: BLOOD UREA NITROGEN 47 MG/DL (9-23); CALCIUM LEVEL 8.9 MG/DL (8.3-10.6); CARBON DIOXIDE LEVEL 28 MMOL/L (20-31); CHLORIDE LEVEL 100 MMOL/L (98-107); CREATININE FOR GFR 0.92 MG/DL (0.55-1.30); GLOMERULAR FILTRATION RATE > 60.0 (>39); GLUCOSE, FASTING 258 MG/DL (74-106); MAGNESIUM LEVEL 1.8 MG/DL (1.8-2.4); PHOSPHORUS LEVEL 4.6 MG/DL (2.4-5.1); POTASSIUM SERUM 4.4 MMOL/L (3.5-5.1); SODIUM LEVEL 135 MMOL/L (136-145)
[2022-08-09 11:08] LABS: IRON (FE) 53 UG/DL (50-170); PERCENT SATURATION 18.2 % (13.2-45.0); TOTAL IRON BINDING CAPACITY 292 UG/DL (250-425)
[2022-08-09 11:09] LABS: ALBUMIN 3.3 G/DL (3.2-5.2); BLOOD UREA NITROGEN 45 MG/DL (9-23); CARBON DIOXIDE LEVEL 27 MMOL/L (20-31); CHLORIDE LEVEL 100 MMOL/L (98-107); FERRITIN 217.3 NG/ML (7.3-270.7); GLOMERULAR FILTRATION RATE > 60.0 (>39); GLUCOSE, FASTING 262 MG/DL (74-106); PHOSPHORUS LEVEL 4.6 MG/DL (2.4-5.1); POTASSIUM SERUM 4.4 MMOL/L (3.5-5.1); SODIUM LEVEL 134 MMOL/L (136-145)
== END ==
PROVIDERS: ATTEND Internal Medicine
DX: I50.9 Heart failure, unspecified (principal)

== ENCOUNTER → 2022-09-06 | Outpatient (REF) ==
[2022-09-06 10:58] LABS: HEMOGLOBIN 12.7 g/dl (12.0-15.5); MEAN CORPUSCULAR HEMOGLOBIN 27.7 pg (27.0-33.0); MEAN CORPUSCULAR VOLUME 89.3 fl (80.0-96.0); PLATELET COUNT, AUTOMATED 208 10^3/uL (150-450); RED BLOOD COUNT 4.59 10^6/uL (4.00-5.40); WHITE BLOOD COUNT 6.3 10^3/uL (4.0-10.0)
[2022-09-06 11:34] LABS: CALCIUM LEVEL 9.3 MG/DL (8.3-10.6); CREATININE FOR GFR 1.08 MG/DL (0.55-1.30); GLOMERULAR FILTRATION RATE 52.7 (>39); MAGNESIUM LEVEL 1.9 MG/DL (1.8-2.4); PHOSPHORUS LEVEL 4.6 MG/DL (2.4-5.1); POTASSIUM SERUM 4.7 MMOL/L (3.5-5.1)
== END ==
PROVIDERS: ATTEND Internal Medicine
DX: I50.9 Heart failure, unspecified (principal)

== ENCOUNTER → 2022-09-12 | Outpatient (REF) | payer MEDICARE, MEDICAID | PROVIDERS: ATTEND Internal Medicine | DX: R05.9 Cough, unspecified (principal); Z53.8 Procedure and treatment not carried out for other reasons ==

== ENCOUNTER → 2022-09-12 | Outpatient (REF) | payer MEDICARE, MEDICAID ==
[2022-09-12 18:31] LABS: BASO % 0.3 % (0.0-1.0); EOS # 0.1 10^3/uL (0.0-0.5); EOS % 0.5 % (0.0-3.0); HEMATOCRIT 38.1 % (36.0-47.0); HEMOGLOBIN 11.8 g/dl (12.0-15.5); LYMPH # 1.1 10^3/uL (1.5-5.0); LYMPH % 12.1 % (24.0-44.0); MEAN CORPUSCULAR HEMOGLOBIN 27.3 pg (27.0-33.0); MEAN CORPUSCULAR VOLUME 88.2 fl (80.0-96.0); MONO # 1.1 10^3/uL (0.0-0.8); MONO % 12.5 % (2.0-8.0); NEUTROPHILS # 6.8 10^3/uL (1.5-8.5); NEUTROPHILS % 74.1 % (36.0-66.0); PLATELET COUNT, AUTOMATED 187 10^3/uL (150-450); RED BLOOD COUNT 4.32 10^6/uL (4.00-5.40); WHITE BLOOD COUNT 9.1 10^3/uL (4.0-10.0)
[2022-09-12 20:02] LABS: ALBUMIN 3.4 G/DL (3.2-5.2); BILIRUBIN,TOTAL 0.4 MG/DL (0.3-1.2); CALCIUM LEVEL 9.1 MG/DL (8.3-10.6); CREATININE FOR GFR 1.05 MG/DL (0.55-1.30); GLOMERULAR FILTRATION RATE 54.4 (>39); POTASSIUM SERUM 4.5 MMOL/L (3.5-5.1); TOTAL PROTEIN 7.1 G/DL (5.7-8.2)
== END ==
LOC: M PLAIMG 13:15
PROVIDERS: ATTEND Internal Medicine
DX: R05.9 Cough, unspecified (principal); R07.9 Chest pain, unspecified

== ENCOUNTER → 2022-09-13 | Outpatient (CLI) | payer MEDICARE, MEDICAID | LOC: M RAD 12:10 | PROVIDERS: ATTEND Nurse Practitioner Family | DX: R07.9 Chest pain, unspecified (principal) ==

== ENCOUNTER → 2022-09-15 | Outpatient (REF) | payer MEDICARE, MEDICAID ==
[2022-09-15 09:18] LABS: HEMATOCRIT 38.4 % (36.0-47.0); HEMOGLOBIN 12.3 g/dl (12.0-15.5); MEAN CORPUSCULAR HEMOGLOBIN 27.3 pg (27.0-33.0); MEAN CORPUSCULAR VOLUME 85.3 fl (80.0-96.0); PLATELET COUNT, AUTOMATED 262 10^3/uL (150-450); WHITE BLOOD COUNT 10.9 10^3/uL (4.0-10.0)
[2022-09-15 09:44] LABS: BLOOD UREA NITROGEN 56 MG/DL (9-23); CALCIUM LEVEL 8.7 MG/DL (8.3-10.6); CARBON DIOXIDE LEVEL 25 MMOL/L (20-31); CHLORIDE LEVEL 103 MMOL/L (98-107); CREATININE FOR GFR 0.89 MG/DL (0.55-1.30); GLOMERULAR FILTRATION RATE > 60.0 (>39); GLUCOSE, FASTING 203 MG/DL (74-106); POTASSIUM SERUM 4.5 MMOL/L (3.5-5.1); SODIUM LEVEL 137 MMOL/L (136-145)
== END ==
PROVIDERS: ATTEND Internal Medicine
DX: E87.1 Hypo-osmolality and hyponatremia (principal)

== ENCOUNTER → 2022-09-21 | Outpatient (REF) | payer MEDICARE, MEDICAID ==
[2022-09-21 11:20] LABS: HEMATOCRIT 40.3 % (36.0-47.0); HEMOGLOBIN 12.6 g/dl (12.0-15.5); MEAN CORPUSCULAR HEMOGLOBIN 27.3 pg (27.0-33.0); MEAN CORPUSCULAR HGB CONC 31.3 g/dl (32.0-36.5); MEAN CORPUSCULAR VOLUME 87.4 fl (80.0-96.0); PLATELET COUNT, AUTOMATED 275 10^3/uL (150-450); RED BLOOD COUNT 4.61 10^6/uL (4.00-5.40); WHITE BLOOD COUNT 10.1 10^3/uL (4.0-10.0)
[2022-09-21 11:47] LABS: CALCIUM LEVEL 8.3 MG/DL (8.3-10.6); CREATININE FOR GFR 1.01 MG/DL (0.55-1.30); GLOMERULAR FILTRATION RATE 56.9 (>39); POTASSIUM SERUM 4.8 MMOL/L (3.5-5.1)
== END ==
PROVIDERS: ATTEND Internal Medicine
DX: D64.9 Anemia, unspecified (principal)

== ENCOUNTER → 2022-09-26 | Outpatient (CLI) | payer MEDICARE, MEDICAID | LOC: M RAD 10:26 | PROVIDERS: ATTEND Nurse Practitioner Family | DX: N32.9 Bladder disorder, unspecified (principal) ==

== ENCOUNTER → 2022-10-15 | Outpatient (REF) | payer MEDICARE, MEDICAID ==
[2022-10-15 15:16] LABS: BASO % 0.2 % (0.0-1.0); EOS % 0.4 % (0.0-3.0); HEMOGLOBIN 12.2 g/dl (12.0-15.5); LYMPH # 1.5 10^3/uL (1.5-5.0); LYMPH % 15.5 % (24.0-44.0); MEAN CORPUSCULAR HEMOGLOBIN 27.5 pg (27.0-33.0); MEAN CORPUSCULAR HGB CONC 32.1 g/dl (32.0-36.5); MEAN CORPUSCULAR VOLUME 85.8 fl (80.0-96.0); MONO % 10.4 % (2.0-8.0); NEUTROPHILS # 6.9 10^3/uL (1.5-8.5); NEUTROPHILS % 73.1 % (36.0-66.0); PLATELET COUNT, AUTOMATED 200 10^3/uL (150-450); RED BLOOD COUNT 4.43 10^6/uL (4.00-5.40); WHITE BLOOD COUNT 9.4 10^3/uL (4.0-10.0)
[2022-10-15 15:44] LABS: CALCIUM LEVEL 8.6 MG/DL (8.3-10.6); CREATININE FOR GFR 1.14 MG/DL (0.55-1.30); GLOMERULAR FILTRATION RATE 49.5 (>39); POTASSIUM SERUM 4.3 MMOL/L (3.5-5.1)
== END ==
PROVIDERS: ATTEND Internal Medicine
DX: R09.1 Pleurisy (principal)

== ENCOUNTER → 2022-10-16 | Outpatient (REF) | payer MEDICARE, MEDICAID ==
[2022-10-16 10:23] LABS: BASO % 0.3 % (0.0-1.0); EOS # 0.1 10^3/uL (0.0-0.5); EOS % 1.3 % (0.0-3.0); HEMATOCRIT 37.9 % (36.0-47.0); LYMPH # 1.2 10^3/uL (1.5-5.0); LYMPH % 16.6 % (24.0-44.0); MEAN CORPUSCULAR HEMOGLOBIN 27.5 pg (27.0-33.0); MEAN CORPUSCULAR HGB CONC 31.7 g/dl (32.0-36.5); MEAN CORPUSCULAR VOLUME 86.9 fl (80.0-96.0); MONO # 0.7 10^3/uL (0.0-0.8); MONO % 9.1 % (2.0-8.0); NEUTROPHILS # 5.4 10^3/uL (1.5-8.5); NEUTROPHILS % 72.3 % (36.0-66.0); PLATELET COUNT, AUTOMATED 195 10^3/uL (150-450); RED BLOOD COUNT 4.36 10^6/uL (4.00-5.40); WHITE BLOOD COUNT 7.5 10^3/uL (4.0-10.0)
[2022-10-16 10:54] LABS: CALCIUM LEVEL 8.9 MG/DL (8.3-10.6); CREATININE FOR GFR 1.15 MG/DL (0.55-1.30); POTASSIUM SERUM 4.3 MMOL/L (3.5-5.1)
== END ==
PROVIDERS: ATTEND Internal Medicine
DX: R14.0 Abdominal distension (gaseous) (principal); R07.81 Pleurodynia

== ENCOUNTER → 2022-10-25 | Outpatient (REF) | payer MEDICARE, MEDICAID ==
[2022-10-25 09:13] LABS: CALCIUM LEVEL 8.3 MG/DL (8.3-10.6); CREATININE FOR GFR 1.13 MG/DL (0.55-1.30); POTASSIUM SERUM 4.2 MMOL/L (3.5-5.1)
== END ==
PROVIDERS: ATTEND Nurse Practitioner Family
DX: I50.9 Heart failure, unspecified (principal)

== ENCOUNTER → 2022-11-08 | Outpatient (REF) | payer MEDICARE, MEDICAID ==
[2022-11-08 10:55] LABS: HEMOGLOBIN A1c 8.5 % (4.0-6.0)
== END ==
PROVIDERS: ATTEND Nurse Practitioner Family
DX: E11.9 Type 2 diabetes mellitus without complications (principal)

== ENCOUNTER → 2022-11-15 | Outpatient (CLI) | payer MEDICARE, MEDICAID | LOC: M RAD 12:25 | PROVIDERS: ATTEND Nurse Practitioner Family | DX: R91.8 Other nonspecific abnormal finding of lung field (principal); J43.9 Emphysema, unspecified; J84.10 Pulmonary fibrosis, unspecified ==

== ENCOUNTER 2022-12-11 08:34 | Day surgery (SDC) | payer MEDICARE, MEDICAID ==
[~2022-12-11] VITALS: Ht 157.5 cm; Wt 60.1 kg
[~2022-12-11 08:34] MED LIST changes: +DICL100G10 TOP; -DICL1GEL3 TOP; +DULA4.5P SC; +GABA600T4 PO; +INSU100I24 SQ; +LOSA25TA13 PO; +NS 1,000 ML IV ONE
[2022-12-11] MEDS ORDERED: LIDOCAINE 2% 100MG/5ML SDV (FOR ANES.) As Ordered ONE (09:32)
[2022-12-11] MEDS ORDERED: GLYCOPYRROLATE INJ 0.2 MG/ML 2 ML VIAL As Ordered ONE (09:32)
[2022-12-11] MEDS ORDERED: propofoL 200 MG/20 ML VIAL As Ordered ONE (09:32)
[2022-12-11 10:35] VITALS: BP 167/75; O2SAT 99
== END 2022-12-11 11:28 | disposition home or self-care (01) ==
LOC: M OPP 08:34
PROVIDERS: ATTEND Internal Medicine Gastroenterology
DX: Z86.010 Personal history of colon polyps (principal); D12.6 Benign neoplasm of colon, unspecified; K57.30 Diverticulosis of large intestine without perforation or abscess without bleeding; K64.4 Residual hemorrhoidal skin tags; K64.8 Other hemorrhoids; K44.9 Diaphragmatic hernia without obstruction or gangrene; K22.4 Dyskinesia of esophagus; K29.70 Gastritis, unspecified, without bleeding; Z87.891 Personal history of nicotine dependence; Z79.02 Long term (current) use of antithrombotics/antiplatelets; Z79.82 Long term (current) use of aspirin; Z79.891 Long term (current) use of opiate analgesic; Z79.899 Other long term (current) drug therapy

== ENCOUNTER → 2022-12-13 | Outpatient (REF) | payer MEDICARE, MEDICAID ==
[~2022-12-13] MED LIST changes: -NS 1,000 ML IV ONE
== END ==
PROVIDERS: ATTEND Internal Medicine
DX: Z53.8 Procedure and treatment not carried out for other reasons (principal)

== ENCOUNTER → 2022-12-13 | Outpatient (REF) | payer MEDICARE, MEDICAID ==
[2022-12-13 08:25] LABS: HEMATOCRIT 32.9 % (36.0-47.0); HEMOGLOBIN 10.3 g/dl (12.0-15.5); MEAN CORPUSCULAR HEMOGLOBIN 28.1 pg (27.0-33.0); MEAN CORPUSCULAR HGB CONC 31.3 g/dl (32.0-36.5); MEAN CORPUSCULAR VOLUME 89.6 fl (80.0-96.0); PLATELET COUNT, AUTOMATED 197 10^3/uL (150-450); RED BLOOD COUNT 3.67 10^6/uL (4.00-5.40); WHITE BLOOD COUNT 5.5 10^3/uL (4.0-10.0)
[2022-12-13 08:52] LABS: CALCIUM LEVEL 8.8 MG/DL (8.3-10.6); CREATININE FOR GFR 1.33 MG/DL (0.55-1.30); GLOMERULAR FILTRATION RATE 41.4 (>39); POTASSIUM SERUM 3.6 MMOL/L (3.5-5.1)
== END ==
PROVIDERS: ATTEND Internal Medicine
DX: I50.9 Heart failure, unspecified (principal)

== ENCOUNTER → 2022-12-20 | Outpatient (REF) | payer MEDICARE, MEDICAID ==
[2022-12-20 13:34] LABS: BASO % 0.2 % (0.0-1.0); EOS % 0.2 % (0.0-3.0); HEMATOCRIT 32.9 % (36.0-47.0); HEMOGLOBIN 10.4 g/dl (12.0-15.5); LYMPH # 0.9 10^3/uL (1.5-5.0); LYMPH % 6.2 % (24.0-44.0); MEAN CORPUSCULAR HEMOGLOBIN 28.7 pg (27.0-33.0); MEAN CORPUSCULAR HGB CONC 31.6 g/dl (32.0-36.5); MEAN CORPUSCULAR VOLUME 90.6 fl (80.0-96.0); MONO # 1.1 10^3/uL (0.0-0.8); MONO % 7.7 % (2.0-8.0); NEUTROPHILS # 11.8 10^3/uL (1.5-8.5); NEUTROPHILS % 85.1 % (36.0-66.0); PLATELET COUNT, AUTOMATED 217 10^3/uL (150-450); RED BLOOD COUNT 3.63 10^6/uL (4.00-5.40); WHITE BLOOD COUNT 13.8 10^3/uL (4.0-10.0)
[2022-12-20 13:58] LABS: HEMOGLOBIN A1c 6.2 % (4.0-6.0)
[2022-12-20 14:01] LABS: ALBUMIN 3.2 G/DL (3.2-5.2); BILIRUBIN,TOTAL 0.4 MG/DL (0.3-1.2); CALCIUM LEVEL 8.8 MG/DL (8.3-10.6); CREATININE FOR GFR 1.47 MG/DL (0.55-1.30); GLOMERULAR FILTRATION RATE 36.9 (>39); POTASSIUM SERUM 4.6 MMOL/L (3.5-5.1); TOTAL PROTEIN 6.2 G/DL (5.7-8.2)
== END ==
PROVIDERS: ATTEND Nurse Practitioner Family
DX: E11.9 Type 2 diabetes mellitus without complications (principal); I50.9 Heart failure, unspecified; E55.9 Vitamin D deficiency, unspecified; Z79.899 Other long term (current) drug therapy

== ENCOUNTER → 2022-12-20 | Outpatient (REF) | payer MEDICARE, MEDICAID | PROVIDERS: ATTEND Internal Medicine | DX: R09.89 Other specified symptoms and signs involving the circulatory and respiratory systems (principal); R68.83 Chills (without fever); I70.0 Atherosclerosis of aorta ==

== ENCOUNTER → 2022-12-21 | Outpatient (CLI) | payer MEDICARE, MEDICAID ==
[2022-12-21 23:05] LABS: APPEARANCE, URINE HAZY (CLEAR); BACTERIA, URINE AUTO NEGATIVE (NEGATIVE); BILIRUBIN, URINE AUTO NEGATIVE (NEGATIVE); BLOOD, URINE BLOOD NEGATIVE (NEGATIVE); COLOR, URINE YELLOW (YELLOW); GLUCOSE, URINE (UA) AUTO 3+ mg/dL (NEGATIVE); KETONE, URINE AUTO NEGATIVE (NEGATIVE); LEUKOCYTE ESTERASE, URINE AUTO 2+ (NEGATIVE); NITRITE, URINE AUTO NEGATIVE (NEGATIVE); PROTEIN, URINE AUTO NEGATIVE (NEGATIVE); RBC, URINE AUTO 2 /HPF (0-3); SPECIFIC GRAVITY URINE AUTO 1.014 (1.002-1.035); SQUAMOUS EPITHELIAL CELL UR AU 7 /HPF (0-6); UROBILINOGEN, URINE AUTO 0.2 mg/dL (0.0-2.0); WBC, URINE AUTO 110 /HPF (0-3)
== END ==
LOC: M RAD 11:12
PROVIDERS: ATTEND Nurse Practitioner Family
DX: S02.2XXA Fracture of nasal bones, initial encounter for closed fracture (principal); Y93.9 Activity, unspecified; Y92.9 Unspecified place or not applicable

== ENCOUNTER → 2023-02-14 | Outpatient (REF) | payer MEDICARE, MEDICAID ==
[~2023-02-14] MED LIST changes: +GLIP5TAB17 PO; -GLIP5TAB8 PO; +MECL-209 PO; -MECL1TAB31 PO
[2023-02-14 15:45] LABS: BASO # 0.1 10^3/uL (0.0-0.2); BASO % 0.7 % (0.0-1.0); EOS # 0.1 10^3/uL (0.0-0.5); EOS % 1.2 % (0.0-3.0); HEMATOCRIT 38.4 % (36.0-47.0); LYMPH % 25.8 % (24.0-44.0); MEAN CORPUSCULAR HEMOGLOBIN 28.5 pg (27.0-33.0); MEAN CORPUSCULAR HGB CONC 31.3 g/dl (32.0-36.5); MEAN CORPUSCULAR VOLUME 91.2 fl (80.0-96.0); MONO # 0.7 10^3/uL (0.0-0.8); MONO % 9.2 % (2.0-8.0); NEUTROPHILS # 4.8 10^3/uL (1.5-8.5); NEUTROPHILS % 62.7 % (36.0-66.0); PLATELET COUNT, AUTOMATED 226 10^3/uL (150-450); RED BLOOD COUNT 4.21 10^6/uL (4.00-5.40); WHITE BLOOD COUNT 7.6 10^3/uL (4.0-10.0)
[2023-02-14 16:14] LABS: ALBUMIN 3.4 G/DL (3.2-5.2); CREATININE FOR GFR 1.14 MG/DL (0.55-1.30); GLOMERULAR FILTRATION RATE 49.5 (>39); PHOSPHORUS LEVEL 5.2 MG/DL (2.4-5.1)
[2023-02-14 18:02] LABS: APPEARANCE, URINE CLEAR (CLEAR); BACTERIA, URINE AUTO NEGATIVE (NEGATIVE); BILIRUBIN, URINE AUTO NEGATIVE (NEGATIVE); BLOOD, URINE BLOOD NEGATIVE (NEGATIVE); COLOR, URINE STRAW (YELLOW); GLUCOSE, URINE (UA) AUTO 3+ mg/dL (NEGATIVE); KETONE, URINE AUTO NEGATIVE (NEGATIVE); LEUKOCYTE ESTERASE, URINE AUTO NEGATIVE (NEGATIVE); NITRITE, URINE AUTO NEGATIVE (NEGATIVE); PROTEIN, URINE AUTO NEGATIVE (NEGATIVE); RBC, URINE AUTO 0 /HPF (0-3); SPECIFIC GRAVITY URINE AUTO 1.007 (1.002-1.035); SQUAMOUS EPITHELIAL CELL UR AU 1 /HPF (0-6); UROBILINOGEN, URINE AUTO 0.2 mg/dL (0.0-2.0); WBC, URINE AUTO 0 /HPF (0-3)
[2023-02-14 18:18] LABS: CREATININE,RANDOM URINE 25.8 MG/DL
[2023-02-14 18:21] LABS: TOTAL PROTEIN,RANDOM URINE < 6.0 MG/DL (0.0-14.0)
== END ==
PROVIDERS: ATTEND Internal Medicine
DX: N18.9 Chronic kidney disease, unspecified (principal)

== ENCOUNTER → 2023-03-12 | Outpatient (REF) | payer MEDICARE, MEDICAID ==
[2023-03-12 11:24] LABS: HEMATOCRIT 38.5 % (36.0-47.0); HEMOGLOBIN 12.2 g/dl (12.0-15.5); MEAN CORPUSCULAR HEMOGLOBIN 29.3 pg (27.0-33.0); MEAN CORPUSCULAR HGB CONC 31.7 g/dl (32.0-36.5); MEAN CORPUSCULAR VOLUME 92.5 fl (80.0-96.0); PLATELET COUNT, AUTOMATED 233 10^3/uL (150-450); RED BLOOD COUNT 4.16 10^6/uL (4.00-5.40); WHITE BLOOD COUNT 8.6 10^3/uL (4.0-10.0)
[2023-03-12 11:54] LABS: BLOOD UREA NITROGEN 22 MG/DL (9-23); CALCIUM LEVEL 8.7 MG/DL (8.3-10.6); CARBON DIOXIDE LEVEL 27 MMOL/L (20-31); CHLORIDE LEVEL 100 MMOL/L (98-107); CREATININE FOR GFR 0.95 MG/DL (0.55-1.30); GLOMERULAR FILTRATION RATE > 60.0 (>39); GLUCOSE, FASTING 226 MG/DL (74-106); POTASSIUM SERUM 3.5 MMOL/L (3.5-5.1); SODIUM LEVEL 136 MMOL/L (136-145)
== END ==
PROVIDERS: ATTEND Internal Medicine
DX: I50.9 Heart failure, unspecified (principal)

== ENCOUNTER → 2023-03-28 | Outpatient (REF) | payer MEDICARE, MEDICAID | PROVIDERS: ATTEND Nurse Practitioner Family | DX: R05.9 Cough, unspecified (principal) ==

== ENCOUNTER → 2023-04-11 | Outpatient (REF) | payer MEDICARE, MEDICAID | PROVIDERS: ATTEND Internal Medicine | DX: I50.9 Heart failure, unspecified (principal); Z53.8 Procedure and treatment not carried out for other reasons ==

== ENCOUNTER → 2023-05-16 | Outpatient (REF) | payer MEDICARE, MEDICAID ==
[2023-05-16 11:14] LABS: HEMOGLOBIN A1c 8.6 % (4.0-6.0)
== END ==
PROVIDERS: ATTEND Internal Medicine
DX: E11.9 Type 2 diabetes mellitus without complications (principal)

== ENCOUNTER → 2023-05-23 | Outpatient (CLI) | payer MEDICARE, MEDICAID | LOC: M PLAIMG 11:05 | PROVIDERS: ATTEND Internal Medicine Pulmonary Disease | DX: R91.8 Other nonspecific abnormal finding of lung field (principal) ==

== ENCOUNTER → 2023-06-13 | Outpatient (REF) | payer MEDICARE, MEDICAID ==
[2023-06-13 10:36] LABS: HEMATOCRIT 36.2 % (36.0-47.0); HEMOGLOBIN 11.7 g/dl (12.0-15.5); MEAN CORPUSCULAR HEMOGLOBIN 30.5 pg (27.0-33.0); MEAN CORPUSCULAR HGB CONC 32.3 g/dl (32.0-36.5); MEAN CORPUSCULAR VOLUME 94.5 fl (80.0-96.0); PLATELET COUNT, AUTOMATED 214 10^3/uL (150-450); RED BLOOD COUNT 3.83 10^6/uL (4.00-5.40); WHITE BLOOD COUNT 8.7 10^3/uL (4.0-10.0)
[2023-06-13 11:11] LABS: CALCIUM LEVEL 8.9 MG/DL (8.3-10.6); CREATININE FOR GFR 1.13 MG/DL (0.55-1.30); GLOMERULAR FILTRATION RATE 49.8 (>39)
== END ==
PROVIDERS: ATTEND Internal Medicine
DX: I50.9 Heart failure, unspecified (principal)

== ENCOUNTER → 2023-06-25 | Outpatient (CLI) | payer MEDICARE, MEDICAID | LOC: M PLARAD 13:08 | PROVIDERS: ATTEND Internal Medicine Pulmonary Disease | DX: R91.8 Other nonspecific abnormal finding of lung field (principal) | CPT/HCPCS: 78815; A9552 ==

== ENCOUNTER → 2023-07-09 | Outpatient (REF) | payer MEDICARE, MEDICAID ==
[2023-07-09 12:40] LABS: PLATELET COUNT, AUTOMATED 227 10^3/uL (150-450)
[2023-07-09 12:42] LABS: INR 1.09; PARTIAL THROMBOPLASTIN TIME 25.4 SECONDS (24.8-34.2); PROTHROMBIN TIME 13.8 SECONDS (12.5-14.5)
== END ==
PROVIDERS: ATTEND Internal Medicine
DX: Z01.818 Encounter for other preprocedural examination (principal); Z79.01 Long term (current) use of anticoagulants

== ENCOUNTER → 2023-07-20 | Outpatient (CLI) | payer MEDICARE, MEDICAID ==
[~2023-07-20] MED LIST changes: +ASCO500T PO; +BISA10SU27 PR; +CHOL12508 PO; +FERR325T3 PO; +GLUC1KIT IM; +HOME MED LIST COMPLETE! XX SCH; +LANTINJ4 SC; +LIDOCAINE 1% MDV 20ML VIAL As Ordered ONE; +MILK400S12 PO; +MM S100C PO; +MONT10TA97 PO; +NITR4TASL SL; +POLY510P14 PO
[2023-07-20 08:10] VITALS: TEMP 98.6
[2023-07-20] MEDS: NORCO, ANEXSIA 5/325MG TABLET (HYDROcodone/ACETAMINOPHEN) PO ONE (12:25)
[2023-07-20 13:45] VITALS: BP 187/75; O2SAT 94
== END ==
LOC: M IRPRO 07:57
PROVIDERS: ATTEND Internal Medicine Pulmonary Disease
DX: R91.1 Solitary pulmonary nodule (principal); J95.811 Postprocedural pneumothorax; C34.32 Malignant neoplasm of lower lobe, left bronchus or lung

== ENCOUNTER → 2023-07-25 | Outpatient (REF) | payer MEDICARE, MEDICAID ==
[~2023-07-25] MED LIST changes: -HOME MED LIST COMPLETE! XX SCH; -LIDOCAINE 1% MDV 20ML VIAL As Ordered ONE
== END ==
PROVIDERS: ATTEND Internal Medicine
DX: R05.9 Cough, unspecified (principal)

== ENCOUNTER → 2023-07-25 | Outpatient (REF) | payer MEDICARE, MEDICAID | PROVIDERS: ATTEND Internal Medicine | DX: R05.9 Cough, unspecified (principal) ==

== ENCOUNTER → 2023-08-13 | Outpatient (REF) | payer MEDICARE, MEDICAID ==
[2023-08-13 08:43] LABS: BASO % 0.4 % (0.0-1.0); EOS # 0.1 10^3/uL (0.0-0.5); EOS % 1.2 % (0.0-3.0); HEMATOCRIT 37.1 % (36.0-47.0); HEMOGLOBIN 11.8 g/dl (12.0-15.5); LYMPH # 1.8 10^3/uL (1.5-5.0); LYMPH % 21.7 % (24.0-44.0); MEAN CORPUSCULAR HEMOGLOBIN 28.9 pg (27.0-33.0); MEAN CORPUSCULAR HGB CONC 31.8 g/dl (32.0-36.5); MEAN CORPUSCULAR VOLUME 90.7 fl (80.0-96.0); MONO # 0.6 10^3/uL (0.0-0.8); MONO % 7.8 % (2.0-8.0); NEUTROPHILS # 5.6 10^3/uL (1.5-8.5); NEUTROPHILS % 68.4 % (36.0-66.0); PLATELET COUNT, AUTOMATED 232 10^3/uL (150-450); RED BLOOD COUNT 4.09 10^6/uL (4.00-5.40); WHITE BLOOD COUNT 8.2 10^3/uL (4.0-10.0)
[2023-08-13 09:07] LABS: ALBUMIN 3.3 G/DL (3.2-5.2); CALCIUM LEVEL 8.8 MG/DL (8.3-10.6); CREATININE FOR GFR 1.02 MG/DL (0.55-1.30); GLOMERULAR FILTRATION RATE 56.1 (>39); PHOSPHORUS LEVEL 3.7 MG/DL (2.4-5.1); POTASSIUM SERUM 4.3 MMOL/L (3.5-5.1)
== END ==
PROVIDERS: ATTEND Internal Medicine
DX: N18.9 Chronic kidney disease, unspecified (principal)

== ENCOUNTER → 2023-08-15 | Outpatient (CLI) | payer MEDICARE, MEDICAID | LOC: M ONCR 09:43 | PROVIDERS: ATTEND General Practice | DX: C34.32 Malignant neoplasm of lower lobe, left bronchus or lung (principal); Z79.4 Long term (current) use of insulin; Z79.82 Long term (current) use of aspirin; Z79.899 Other long term (current) drug therapy; Z87.891 Personal history of nicotine dependence; Z95.828 Presence of other vascular implants and grafts ==

== ENCOUNTER → 2023-09-10 | Outpatient (REF) | payer MEDICARE, MEDICAID ==
[~2023-09-10] MED LIST changes: +DOXY-440 PO; -DOXY-444 PO
[2023-09-10 11:33] LABS: HEMATOCRIT 34.2 % (36.0-47.0); HEMOGLOBIN 10.8 g/dl (12.0-15.5); MEAN CORPUSCULAR HEMOGLOBIN 29.1 pg (27.0-33.0); MEAN CORPUSCULAR HGB CONC 31.6 g/dl (32.0-36.5); MEAN CORPUSCULAR VOLUME 92.2 fl (80.0-96.0); PLATELET COUNT, AUTOMATED 204 10^3/uL (150-450); RED BLOOD COUNT 3.71 10^6/uL (4.00-5.40); WHITE BLOOD COUNT 6.2 10^3/uL (4.0-10.0)
[2023-09-10 12:11] LABS: CALCIUM LEVEL 8.3 MG/DL (8.3-10.6); CREATININE FOR GFR 1.03 MG/DL (0.55-1.30); GLOMERULAR FILTRATION RATE 55.5 (>39); MAGNESIUM LEVEL 1.9 MG/DL (1.8-2.4); PHOSPHORUS LEVEL 3.9 MG/DL (2.4-5.1); POTASSIUM SERUM 4.2 MMOL/L (3.5-5.1)
== END ==
PROVIDERS: ATTEND Internal Medicine
DX: I50.9 Heart failure, unspecified (principal)

== ENCOUNTER 2023-09-14 11:38 | Outpatient (RCR) | payer MEDICARE, MEDICAID | END 2023-09-21 | LOC: M ONCR 11:38 | PROVIDERS: ATTEND General Practice | DX: Z51.0 Encounter for antineoplastic radiation therapy (principal); C34.32 Malignant neoplasm of lower lobe, left bronchus or lung ==

== ENCOUNTER → 2023-09-19 | Outpatient (REF) | payer MEDICARE, MEDICAID ==
[2023-09-19 12:16] LABS: HEMOGLOBIN A1c 7.6 % (4.0-6.0)
== END ==
PROVIDERS: ATTEND Internal Medicine
DX: E11.9 Type 2 diabetes mellitus without complications (principal)

== ENCOUNTER → 2023-11-22 | Outpatient (CLI) | payer MEDICARE ==
[~2023-11-22] MED LIST changes: +TRAM1TAB42 PO; -TRAM37.53 PO
== END ==
LOC: M RAD 12:22
PROVIDERS: ATTEND Physician Assistant
DX: R07.81 Pleurodynia (principal)

== ENCOUNTER → 2023-12-14 | Outpatient (REF) | payer MEDICARE, MEDICAID ==
[2023-12-14 08:01] LABS: ALBUMIN 3.3 G/DL (3.2-5.2); BILIRUBIN,TOTAL 0.3 MG/DL (0.3-1.2); CALCIUM LEVEL 8.8 MG/DL (8.3-10.6); CREATININE FOR GFR 1.08 MG/DL (0.55-1.30); GLOMERULAR FILTRATION RATE 52.5 (>39)
== END ==
PROVIDERS: ATTEND General Practice
DX: C34.32 Malignant neoplasm of lower lobe, left bronchus or lung (principal)

== ENCOUNTER → 2023-12-17 | Outpatient (REF) | payer MEDICARE, MEDICAID ==
[~2023-12-17] MED LIST changes: +GABA-1490 PO; +GABA-1635 PO; -GABA600T4 PO; -GABA800T4 PO
[2023-12-17 12:37] LABS: BASO % 0.4 % (0.0-1.0); EOS # 0.2 10^3/uL (0.0-0.5); EOS % 2.9 % (0.0-3.0); HEMATOCRIT 36.8 % (36.0-47.0); HEMOGLOBIN 11.5 g/dl (12.0-15.5); LYMPH # 0.8 10^3/uL (1.5-5.0); LYMPH % 15.8 % (24.0-44.0); MEAN CORPUSCULAR HEMOGLOBIN 28.7 pg (27.0-33.0); MEAN CORPUSCULAR HGB CONC 31.3 g/dl (32.0-36.5); MEAN CORPUSCULAR VOLUME 91.8 fl (80.0-96.0); MONO # 0.5 10^3/uL (0.0-0.8); MONO % 8.8 % (2.0-8.0); NEUTROPHILS # 3.7 10^3/uL (1.5-8.5); NEUTROPHILS % 71.5 % (36.0-66.0); PLATELET COUNT, AUTOMATED 194 10^3/uL (150-450); RED BLOOD COUNT 4.01 10^6/uL (4.00-5.40); WHITE BLOOD COUNT 5.1 10^3/uL (4.0-10.0)
[2023-12-17 12:55] LABS: ALBUMIN 3.2 G/DL (3.2-5.2); BILIRUBIN,TOTAL 0.4 MG/DL (0.3-1.2); CHOLESTEROL RISK RATIO 3.79 (<5); CREATININE FOR GFR 1.01 MG/DL (0.55-1.30); GLOMERULAR FILTRATION RATE 56.7 (>39); HDL CHOLESTEROL 25.8 MG/DL (>40); LDL CHOLESTEROL 39.4 MG/DL (<100); MAGNESIUM LEVEL 1.9 MG/DL (1.8-2.4); NON-HDL-C 72.2 MG/DL; PERCENT SATURATION 18.2 % (13.2-45.0); POTASSIUM SERUM 4.4 MMOL/L (3.5-5.1); TOTAL PROTEIN 6.2 G/DL (5.7-8.2)
[2023-12-17 12:57] LABS: FREE T4 0.84 NG/DL (0.89-1.76); THYROID STIMULATING HORMONE 1.907 uIU/ML (0.55-4.78)
[2023-12-17 17:58] LABS: HEMOGLOBIN A1c 6.1 % (4.0-6.0)
== END ==
PROVIDERS: ATTEND Nurse Practitioner Family
DX: M86.9 Osteomyelitis, unspecified (principal); E11.59 Type 2 diabetes mellitus with other circulatory complications; I25.10 Atherosclerotic heart disease of native coronary artery without angina pectoris; I50.32 Chronic diastolic (congestive) heart failure; E61.1 Iron deficiency

== ENCOUNTER → 2023-12-21 | Outpatient (CLI) | payer MEDICARE, MEDICAID | LOC: M RAD 12:10 | PROVIDERS: ATTEND Nurse Practitioner Family | DX: I73.9 Peripheral vascular disease, unspecified (principal); I66.8 Occlusion and stenosis of other cerebral arteries ==

== ENCOUNTER → 2023-12-26 | Outpatient (CLI) | payer MEDICARE, MEDICAID ==
[~2023-12-26] MED LIST changes: +ISOVUE-370 76% 100ML VIAL As Ordered ONE
== END ==
LOC: M RAD 12-12 09:46
PROVIDERS: ATTEND General Practice
DX: C34.90 Malignant neoplasm of unspecified part of unspecified bronchus or lung (principal)
CPT/HCPCS: 71260; Q9967

== ENCOUNTER → 2023-12-28 | Outpatient (CLI) | payer MEDICARE, MEDICAID ==
[~2023-12-28] MED LIST changes: -ISOVUE-370 76% 100ML VIAL As Ordered ONE
== END ==
LOC: M ONCR 10:10
PROVIDERS: ATTEND General Practice
DX: C34.32 Malignant neoplasm of lower lobe, left bronchus or lung (principal); R91.8 Other nonspecific abnormal finding of lung field; Z79.4 Long term (current) use of insulin; Z79.899 Other long term (current) drug therapy; Z79.84 Long term (current) use of oral hypoglycemic drugs; Z79.82 Long term (current) use of aspirin; Z87.891 Personal history of nicotine dependence

== ENCOUNTER 2024-03-08 09:48 | Inpatient (IN) | payer MEDICARE, MEDICAID ==
[~2024-03-08] VITALS: Ht 157.5 cm; Wt 58.8 kg
[~2024-03-08 09:48] MED LIST changes: +GABA-1172 PO; -GABA-282 PO
[2024-03-08 10:22] LABS: VENOUS BASE EXCESS -5.4 (-2.0-2.0); VENOUS HCO3 20.7 MMOL/L (23.0-27.0); VENOUS O2 SATURATION 38.3 % (60.0-80.0); VENOUS PARTIAL PRESSURE CO2 42.4 mmHg (38.0-50.0); VENOUS PARTIAL PRESSURE O2 26.5 mmHg (30.0-50.0); VENOUS PH 7.306 UNITS (7.330-7.430)
[2024-03-08 10:28] LABS: BASO % 0.3 % (0.0-1.0); EOS # 0.1 10^3/uL (0.0-0.5); EOS % 1.2 % (0.0-3.0); HEMATOCRIT 32.1 % (36.0-47.0); HEMOGLOBIN 9.9 g/dl (12.0-15.5); LYMPH # 0.8 10^3/uL (1.5-5.0); LYMPH % 10.1 % (24.0-44.0); MEAN CORPUSCULAR HEMOGLOBIN 28.3 pg (27.0-33.0); MEAN CORPUSCULAR HGB CONC 30.8 g/dl (32.0-36.5); MEAN CORPUSCULAR VOLUME 91.7 fl (80.0-96.0); MONO # 0.6 10^3/uL (0.0-0.8); MONO % 7.8 % (2.0-8.0); NEUTROPHILS % 80.1 % (36.0-66.0); PLATELET COUNT, AUTOMATED 261 10^3/uL (150-450); WHITE BLOOD COUNT 7.5 10^3/uL (4.0-10.0)
[2024-03-08 10:56] LABS: BILIRUBIN,DIRECT 0.2 MG/DL (<0.4); BILIRUBIN,TOTAL 0.4 MG/DL (0.3-1.2); CALCIUM LEVEL 9.2 MG/DL (8.3-10.6); CREATININE FOR GFR 1.17 MG/DL (0.55-1.30); GLOMERULAR FILTRATION RATE 47.9 (>39); POTASSIUM SERUM 5.2 MMOL/L (3.5-5.1); TOTAL PROTEIN 6.6 G/DL (5.7-8.2)
[2024-03-08] MEDS ORDERED: ISOVUE-370 76% 100ML VIAL As Ordered ONE (11:20)
[2024-03-08 11:45] LABS: CK-MB VALUE MASS 3.8 NG/ML (<3.6)
[2024-03-08 11:50] LABS: MB/CK RELATIVE INDEX 3.76 (< OR =4)
[2024-03-08] MEDS ORDERED: CHOL12508 PO (11:56)
[2024-03-08] MEDS ORDERED: TRES1INJ2 SC (11:56)
[2024-03-08] MEDS ORDERED: REFR1GEL OU (11:56)
[2024-03-08] MEDS ORDERED: COLA100C5 PO (11:56)
[2024-03-08] MEDS ORDERED: ACET1TAB55 PO (11:56)
[2024-03-08] MEDS ORDERED: HOME MED LIST COMPLETE! XX SCH (12:00)
[2024-03-08 12:15] LABS: CK-MB VALUE MASS 4.2 NG/ML (<3.6)
[2024-03-08 12:16] LABS: MB/CK RELATIVE INDEX 3.88 (< OR =4)
[2024-03-08] MEDS ORDERED: IPRATROPIUM HFA INHALER 12.9 GRAMS (ATROVENT HFA) INH PRN (12:50)
[2024-03-08] MEDS ORDERED: NITROGLYCERIN 0.4MG SUBL TABLET SL SCH (14:30)
[2024-03-08] MEDS ORDERED: POLYETHYLENE GLYCOL (MIRALAX) 238GM BOTTLE PO PRN (14:30)
[2024-03-08] MEDS ORDERED: BISACODYL 10MG SUPP PR PRN (14:30)
[2024-03-08] MEDS ORDERED: DOCUSATE SODIUM 100MG CAPSULE PO PRN (14:30)
[2024-03-08] MEDS ORDERED: MOM 30ML SUSPENSION UDC PO PRN (14:30)
[2024-03-08] MEDS: PIPERACILLIN/TAZOBACTAM SOD 4.5 GM in DEXTROSE 5% (D5W) ADV/MINI-BAG 50 ML IV ONE (14:35)
[2024-03-08] MEDS ORDERED: MIRALAX *UNIT DOSE* 17GM PACKET PO PRN (15:45)
[2024-03-08] MEDS: DULoxetine 30MG CAPSULE (CYMBALTA) PO SCH (16:53)
[2024-03-08] MEDS: METOPROLOL SUCC (TopROL XL) 50MG **XL** TAB PO SCH (16:55)
[2024-03-08] MEDS: GABAPENTIN 300 MG CAP PO SCH (16:56)
[2024-03-08] MEDS: MONTELUKAST 10 MG TAB PO SCH (16:56)
[2024-03-08] MEDS: SUCRALFATE 1 GM TAB PO SCH (16:57)
[2024-03-08] MEDS: ATORVASTATIN 20 MG TAB PO SCH (16:57)
[2024-03-08] MEDS: DAPAGLIFLOZIN PROPANEDIOL 10MG TABLET (FARXIGA) PO SCH (16:58)
[2024-03-08] MEDS: ASPIRIN 81MG ENTERIC TABLET PO SCH (16:59)
[2024-03-08] MEDS: MIDODRINE 5 MG TAB PO ONE (17:06)
[2024-03-08] MEDS: LOSARTAN 25 MG TAB PO SCH (17:07)
[2024-03-08] MEDS: ENOXAPARIN 30MG/0.3ML SYRINGE (J1650 PER 10MG) SC ONE (17:08)
[2024-03-08] MEDS: DOCUSATE SODIUM 100MG CAPSULE PO SCH (17:09)
[2024-03-08] MEDS: metOLazone 2.5 MG TAB PO ONE (17:25)
[2024-03-08] MEDS: CALCIUM GLUCONATE 1,000 MG in DEXTROSE 5% (D5W) MINI-BAG PLU 100 ML IV ONE (18:40)
[2024-03-08] MEDS: PATIROMER SORBITEX CALCIUM 8.4 GM POWDER PACKET (VELTASSA) PO ONE (18:40)
[2024-03-08] MEDS: FUROSEMIDE 40MG/4ML VIAL IV ONE (18:40)
[2024-03-08] MEDS ORDERED: DEXTROSE 50% 50ML SYRINGE IV PRN (18:50)
[2024-03-08] MEDS ORDERED: GLUCAGON INJ 1MG VIAL SC PRN (18:50)
[2024-03-08] MEDS ORDERED: GLUCOSE 4 GM CHEW PO PRN (18:50)
[2024-03-08] MEDS ORDERED: LEVALBUTEROL 1.25MG 0.5ML CONCENTRATE NEB INH PRN (18:55)
[2024-03-08] MEDS ORDERED: IPRATROPIUM 0.02% SOLN 0.5MG 2.5ML NEB INH PRN (18:55)
[2024-03-08] MEDS: LEVALBUTEROL 1.25MG 0.5ML CONCENTRATE NEB INH ONE (19:07)
[2024-03-08] MEDS: IPRATROPIUM 0.02% SOLN 0.5MG 2.5ML NEB NEB ONE (19:07)
[2024-03-08 20:00] VITALS: BP 140/70; TEMP 97.3; O2SAT 96
[2024-03-08] MEDS: INSULIN LISPRO (NovoLOG) PER UNIT SC SCH (21:00)
[2024-03-08] MEDS ORDERED: PIPERACILLIN/TAZOBACTAM SOD 4.5 GM in DEXTROSE 5% (D5W) ADV/MINI-BAG 50 ML IV SCH (21:00)
[2024-03-08] MEDS: PIPERACILLIN/TAZOBACTAM SOD 3.375 GM in DEXTROSE 5% (D5W) ADV/MINI-BAG 50 ML IV SCH (21:47)
[2024-03-08] MEDS: guaiFENesin ER TABLET 600 MG TAB PO SCH (21:48)
[2024-03-08] MEDS: DOXYCYCLINE HYCLATE 100MG TABLET PO SCH (21:48)
[2024-03-09 00:24] LABS: CALCIUM LEVEL 9.2 MG/DL (8.3-10.6); CK-MB VALUE MASS 2.8 NG/ML (<3.6); CREATININE FOR GFR 1.15 MG/DL (0.55-1.30); GLOMERULAR FILTRATION RATE 48.8 (>39); MB/CK RELATIVE INDEX 3.63 (< OR =4); POTASSIUM SERUM 4.1 MMOL/L (3.5-5.1)
[2024-03-09 04:00] VITALS: BP 113/58; TEMP 97.3; O2SAT 94
[2024-03-09 05:59] LABS: BASO % 0.5 % (0.0-1.0); EOS # 0.1 10^3/uL (0.0-0.5); EOS % 1.1 % (0.0-3.0); HEMATOCRIT 31.3 % (36.0-47.0); LYMPH # 1.2 10^3/uL (1.5-5.0); LYMPH % 14.9 % (24.0-44.0); MEAN CORPUSCULAR HEMOGLOBIN 27.7 pg (27.0-33.0); MEAN CORPUSCULAR HGB CONC 31.9 g/dl (32.0-36.5); MEAN CORPUSCULAR VOLUME 86.7 fl (80.0-96.0); MONO # 0.8 10^3/uL (0.0-0.8); MONO % 9.7 % (2.0-8.0); NEUTROPHILS % 73.6 % (36.0-66.0); PLATELET COUNT, AUTOMATED 263 10^3/uL (150-450); RED BLOOD COUNT 3.61 10^6/uL (4.00-5.40); WHITE BLOOD COUNT 8.2 10^3/uL (4.0-10.0)
[2024-03-09 06:24] LABS: CALCIUM LEVEL 9.5 MG/DL (8.3-10.6); CREATININE FOR GFR 1.24 MG/DL (0.55-1.30); GLOMERULAR FILTRATION RATE 44.8 (>39); POTASSIUM SERUM 3.9 MMOL/L (3.5-5.1)
[2024-03-09] MEDS: LEVALBUTEROL 1.25MG 0.5ML CONCENTRATE NEB INH SCH (07:16)
[2024-03-09] MEDS: IPRATROPIUM 0.02% SOLN 0.5MG 2.5ML NEB INH SCH (07:16)
[2024-03-09] MEDS: INSULIN LISPRO (NovoLOG) PER UNIT SC SCH (07:30)
[2024-03-09 07:54] LABS: CK-MB VALUE MASS 2.1 NG/ML (<3.6)
[2024-03-09 07:55] LABS: MB/CK RELATIVE INDEX 2.72 (< OR =4)
[2024-03-09 09:25] VITALS: O2SAT 98
[2024-03-09] MEDS: MIDODRINE 5 MG TAB PO ONE ×2 (09:39→15:51)
[2024-03-09] MEDS: metOLazone 2.5 MG TAB PO ONE (09:45)
[2024-03-09] MEDS: ENOXAPARIN 30MG/0.3ML SYRINGE (J1650 PER 10MG) SC SCH (09:47)
[2024-03-09] MEDS: FUROSEMIDE 20MG/2ML VIAL IV ONE (10:45)
[2024-03-09 12:00] VITALS: BP 105/53; TEMP 97.9; O2SAT 92
[2024-03-09 15:54] VITALS: BP 115/55
[2024-03-09 20:00] VITALS: BP 112/55; TEMP 97.5; O2SAT 93
[2024-03-10 04:00] VITALS: BP 115/54; TEMP 97.5; O2SAT 96
[2024-03-10 06:08] LABS: BASO % 0.3 % (0.0-1.0); EOS # 0.2 10^3/uL (0.0-0.5); EOS % 2.3 % (0.0-3.0); HEMATOCRIT 32.9 % (36.0-47.0); HEMOGLOBIN 10.4 g/dl (12.0-15.5); LYMPH # 0.9 10^3/uL (1.5-5.0); LYMPH % 9.8 % (24.0-44.0); MEAN CORPUSCULAR HEMOGLOBIN 27.9 pg (27.0-33.0); MEAN CORPUSCULAR HGB CONC 31.6 g/dl (32.0-36.5); MEAN CORPUSCULAR VOLUME 88.2 fl (80.0-96.0); MONO # 1.2 10^3/uL (0.0-0.8); MONO % 12.4 % (2.0-8.0); NEUTROPHILS # 7.1 10^3/uL (1.5-8.5); NEUTROPHILS % 74.8 % (36.0-66.0); PLATELET COUNT, AUTOMATED 284 10^3/uL (150-450); RED BLOOD COUNT 3.73 10^6/uL (4.00-5.40); WHITE BLOOD COUNT 9.6 10^3/uL (4.0-10.0)
[2024-03-10 06:29] LABS: BLOOD UREA NITROGEN 39 MG/DL (9-23); CALCIUM LEVEL 9.5 MG/DL (8.3-10.6); CARBON DIOXIDE LEVEL 28 MMOL/L (20-31); CHLORIDE LEVEL 98 MMOL/L (98-107); GLOMERULAR FILTRATION RATE 33.4 (>39); GLUCOSE, FASTING 145 MG/DL (74-106); POTASSIUM SERUM 4.4 MMOL/L (3.5-5.1); SODIUM LEVEL 134 MMOL/L (136-145)
[2024-03-10 08:43] VITALS: BP 112/56; TEMP 97.3; O2SAT 93
[2024-03-10 09:18] LABS: DIGOXIN LEVEL < 0.1 NG/ML (0.8-2.0)
[2024-03-10] MEDS: ASCORBIC ACID 500 MG TAB PO SCH (10:44)
[2024-03-10] MEDS: FERROUS SULFATE 325MG TAB PO SCH (10:47)
[2024-03-10] MEDS: NS 1,000 ML IV SCH (11:33)
[2024-03-10 12:11] VITALS: BP 116/56; TEMP 97.3; O2SAT 96
[2024-03-10 14:51] VITALS: BP 114/56; TEMP 97.3; O2SAT 97
[2024-03-10 20:00] VITALS: BP 109/52; TEMP 97.5; O2SAT 91
[2024-03-10 23:20] LABS: HEMOGLOBIN 8.6 g/dl (12.0-15.5)
[2024-03-11 04:15] VITALS: BP 104/48; TEMP 97.7; O2SAT 96
[2024-03-11 06:14] LABS: BASO % 0.4 % (0.0-1.0); EOS # 0.3 10^3/uL (0.0-0.5); EOS % 4.2 % (0.0-3.0); HEMATOCRIT 30.2 % (36.0-47.0); HEMOGLOBIN 9.4 g/dl (12.0-15.5); LYMPH # 1.1 10^3/uL (1.5-5.0); MEAN CORPUSCULAR HEMOGLOBIN 27.6 pg (27.0-33.0); MEAN CORPUSCULAR HGB CONC 31.1 g/dl (32.0-36.5); MEAN CORPUSCULAR VOLUME 88.6 fl (80.0-96.0); MONO # 0.7 10^3/uL (0.0-0.8); MONO % 9.9 % (2.0-8.0); NEUTROPHILS # 4.6 10^3/uL (1.5-8.5); NEUTROPHILS % 68.9 % (36.0-66.0); PLATELET COUNT, AUTOMATED 258 10^3/uL (150-450); RED BLOOD COUNT 3.41 10^6/uL (4.00-5.40); WHITE BLOOD COUNT 6.7 10^3/uL (4.0-10.0)
[2024-03-11 06:48] LABS: CALCIUM LEVEL 8.7 MG/DL (8.3-10.6); CREATININE FOR GFR 1.38 MG/DL (0.55-1.30); GLOMERULAR FILTRATION RATE 39.6 (>39); POTASSIUM SERUM 3.7 MMOL/L (3.5-5.1)
[2024-03-11] MEDS: ASPIRIN 81MG CHEW TABLET PO SCH (09:26)
[2024-03-11 12:15] VITALS: BP 127/61; TEMP 97.3; O2SAT 100
[2024-03-11] MEDS: CEFDINIR 300 MG CAP (OMNICEF) PO SCH (15:08)
[2024-03-11 17:22] VITALS: BP 146/75
[2024-03-11] MEDS: METOPROLOL TART 25 MG TABLET PO ONE (18:26)
[2024-03-11 20:00] VITALS: BP 128/73; TEMP 97.5; O2SAT 94
[2024-03-11] MEDS: ACETAMINOPHEN 325 MG TAB PO PRN (20:59)
[2024-03-12 04:00] VITALS: BP 109/53; TEMP 97.5; O2SAT 94
[2024-03-12 07:08] LABS: CALCIUM LEVEL 9.1 MG/DL (8.3-10.6); CREATININE FOR GFR 1.21 MG/DL (0.55-1.30); GLOMERULAR FILTRATION RATE 46.1 (>39); POTASSIUM SERUM 3.5 MMOL/L (3.5-5.1)
[2024-03-12 09:00] VITALS: BP 121/60; TEMP 97.7; O2SAT 96
[2024-03-12 09:09] VITALS: BP 123/60
[2024-03-12] MEDS ORDERED: DOXY100T PO (10:14)
[2024-03-12] MEDS ORDERED: CEFD300CAP PO (10:14)
[2024-03-12] MEDS ORDERED: PROBCAP14 PO (10:14)
[2024-03-13 18:18] LABS: MYCOPLASMA PNEUMONIAE IGG 2.32 (<=0.90)
[2024-03-13 18:42] LABS: URINE STREP PNEUMONIAE ANTIGEN NOT DETECTED (NOT DETECT)
== END 2024-03-12 11:55 | DRG 291 ==
LOC: M ED 09:48 → EDBD 09:48 → M ED INP 12:39 → M MSPAV 15:01
PROVIDERS: ADMIT General Practice; ATTEND Student in an Organized Health Care Education/Training Program
DX: I13.0 Hypertensive heart and chronic kidney disease with heart failure and stage 1 through stage 4 chronic kidney disease, or unspecified chronic kidney disease (principal); I50.43 Acute on chronic combined systolic (congestive) and diastolic (congestive) heart failure; J18.9 Pneumonia, unspecified organism; C34.32 Malignant neoplasm of lower lobe, left bronchus or lung; E87.20 Acidosis, unspecified; I24.89 Other forms of acute ischemic heart disease; N17.9 Acute kidney failure, unspecified; E87.1 Hypo-osmolality and hyponatremia; N18.30 Chronic kidney disease, stage 3 unspecified; J43.9 Emphysema, unspecified; I25.10 Atherosclerotic heart disease of native coronary artery without angina pectoris; E11.22 Type 2 diabetes mellitus with diabetic chronic kidney disease; E88.09 Other disorders of plasma-protein metabolism, not elsewhere classified; E11.42 Type 2 diabetes mellitus with diabetic polyneuropathy; E11.51 Type 2 diabetes mellitus with diabetic peripheral angiopathy without gangrene; I48.91 Unspecified atrial fibrillation; E87.5 Hyperkalemia; Z66 Do not resuscitate; E11.621 Type 2 diabetes mellitus with foot ulcer; L97.529 Non-pressure chronic ulcer of other part of left foot with unspecified severity; E78.5 Hyperlipidemia, unspecified; D63.8 Anemia in other chronic diseases classified elsewhere; K44.9 Diaphragmatic hernia without obstruction or gangrene; K21.9 Gastro-esophageal reflux disease without esophagitis; F41.9 Anxiety disorder, unspecified; M81.0 Age-related osteoporosis without current pathological fracture; Z95.5 Presence of coronary angioplasty implant and graft; Z92.3 Personal history of irradiation; Z79.82 Long term (current) use of aspirin; Z79.899 Other long term (current) drug therapy; Z79.4 Long term (current) use of insulin

== ENCOUNTER → 2024-04-01 | Outpatient (CLI) | payer MEDICARE, MEDICAID ==
[~2024-04-01] MED LIST changes: +ACET1TAB55 PO; +CEFD300CAP PO; +COLA100C5 PO; +DOXY100T PO; +PROBCAP14 PO; +REFR1GEL OU; +TRES1INJ2 SC
== END ==
LOC: M CLY 10:53
PROVIDERS: ATTEND Nurse Practitioner Family
DX: J18.9 Pneumonia, unspecified organism (principal)

== ENCOUNTER → 2024-04-01 | Outpatient (REF) | payer MEDICARE, MEDICAID ==
[2024-04-01 19:11] LABS: BASO % 0.4 % (0.0-1.0); EOS # 0.1 10^3/uL (0.0-0.5); EOS % 1.5 % (0.0-3.0); HEMATOCRIT 29.3 % (36.0-47.0); HEMOGLOBIN 8.9 g/dl (12.0-15.5); LYMPH # 0.6 10^3/uL (1.5-5.0); LYMPH % 9.3 % (24.0-44.0); MEAN CORPUSCULAR HEMOGLOBIN 26.6 pg (27.0-33.0); MEAN CORPUSCULAR HGB CONC 30.4 g/dl (32.0-36.5); MEAN CORPUSCULAR VOLUME 87.5 fl (80.0-96.0); MONO # 0.6 10^3/uL (0.0-0.8); MONO % 8.2 % (2.0-8.0); NEUTROPHILS # 5.4 10^3/uL (1.5-8.5); NEUTROPHILS % 79.3 % (36.0-66.0); PLATELET COUNT, AUTOMATED 320 10^3/uL (150-450); RED BLOOD COUNT 3.35 10^6/uL (4.00-5.40); WHITE BLOOD COUNT 6.9 10^3/uL (4.0-10.0)
[2024-04-01 19:17] LABS: ALBUMIN 2.7 G/DL (3.2-5.2); BILIRUBIN,TOTAL 0.7 MG/DL (0.3-1.2); CALCIUM LEVEL 8.2 MG/DL (8.3-10.6); CREATININE FOR GFR 1.22 MG/DL (0.55-1.30); GLOMERULAR FILTRATION RATE 45.6 (>39); POTASSIUM SERUM 4.9 MMOL/L (3.5-5.1); TOTAL PROTEIN 6.1 G/DL (5.7-8.2)
== END ==
LOC: M SFHCCLAY 10:27
PROVIDERS: ATTEND Nurse Practitioner Family
DX: C34.92 Malignant neoplasm of unspecified part of left bronchus or lung (principal); J18.9 Pneumonia, unspecified organism

== ENCOUNTER 2024-04-02 09:05 | Inpatient (IN) | payer MEDICARE, MEDICAID ==
[~2024-04-02] VITALS: Ht 157.5 cm; Wt 62.5 kg
[2024-04-02 10:27] LABS: BASO % 0.4 % (0.0-1.0); EOS # 0.2 10^3/uL (0.0-0.5); EOS % 2.8 % (0.0-3.0); HEMATOCRIT 29.5 % (36.0-47.0); LYMPH # 0.8 10^3/uL (1.5-5.0); MEAN CORPUSCULAR HEMOGLOBIN 26.4 pg (27.0-33.0); MEAN CORPUSCULAR HGB CONC 30.5 g/dl (32.0-36.5); MEAN CORPUSCULAR VOLUME 86.5 fl (80.0-96.0); MONO # 0.6 10^3/uL (0.0-0.8); MONO % 8.3 % (2.0-8.0); NEUTROPHILS # 5.8 10^3/uL (1.5-8.5); NEUTROPHILS % 77.7 % (36.0-66.0); PLATELET COUNT, AUTOMATED 294 10^3/uL (150-450); RED BLOOD COUNT 3.41 10^6/uL (4.00-5.40); WHITE BLOOD COUNT 7.5 10^3/uL (4.0-10.0)
[2024-04-02 10:57] LABS: ALBUMIN 2.6 G/DL (3.2-5.2); BILIRUBIN,DIRECT 0.3 MG/DL (<0.4); BILIRUBIN,TOTAL 0.7 MG/DL (0.3-1.2); CALCIUM LEVEL 8.6 MG/DL (8.3-10.6); CREATININE FOR GFR 1.22 MG/DL (0.55-1.30); GLOMERULAR FILTRATION RATE 45.6 (>39); POTASSIUM SERUM 5.1 MMOL/L (3.5-5.1); TOTAL PROTEIN 6.5 G/DL (5.7-8.2)
[2024-04-02 13:40] LABS: CK-MB VALUE MASS 2.3 NG/ML (<3.6)
[2024-04-02] MEDS ORDERED: ISOVUE-370 76% 100ML VIAL As Ordered ONE (13:44)
[2024-04-02 14:01] LABS: MB/CK RELATIVE INDEX 1.53 (< OR =4)
[2024-04-02 14:04] LABS: CK-MB VALUE MASS 2.1 NG/ML (<3.6)
[2024-04-02 14:05] LABS: MB/CK RELATIVE INDEX 1.75 (< OR =4)
[2024-04-02] MEDS ORDERED: HOME MED LIST COMPLETE! XX SCH (14:10)
[2024-04-02] MEDS: DEXTROSE 50% 50ML SYRINGE IV STA (15:50)
[2024-04-02] MEDS ORDERED: POLYETHYLENE GLYCOL (MIRALAX) 238GM BOTTLE PO PRN (16:00)
[2024-04-02] MEDS ORDERED: BISACODYL 10MG SUPP PR PRN (16:00)
[2024-04-02] MEDS ORDERED: MOM 30ML SUSPENSION UDC PO PRN (16:00)
[2024-04-02] MEDS: SUCRALFATE 1 GM TAB PO SCH (16:50)
[2024-04-02] MEDS: PIPERACILLIN/TAZOBACTAM SOD 4.5 GM in DEXTROSE 5% (D5W) ADV/MINI-BAG 50 ML IV ONE (16:50)
[2024-04-02] MEDS ORDERED: DEXTROSE 50% 50ML SYRINGE IV PRN (17:05)
[2024-04-02] MEDS ORDERED: GLUCAGON INJ 1MG VIAL SC PRN (17:05)
[2024-04-02] MEDS ORDERED: GLUCOSE 4 GM CHEW PO PRN (17:05)
[2024-04-02] MEDS ORDERED: ALBUTEROL SULFATE 2.5MG/0.5ML INH NEB SOLN NEB PRN (17:10)
[2024-04-02 17:22] LABS: INR 1.32; PROTHROMBIN TIME 16.7 SECONDS (12.5-14.5)
[2024-04-02 18:23] VITALS: BP 131/82; TEMP 98.7; O2SAT 98
[2024-04-02] MEDS: INSULIN LISPRO (NovoLOG) PER UNIT SC SCH (19:04)
[2024-04-02] MEDS: FUROSEMIDE 40MG/4ML VIAL IV SCH (19:04)
[2024-04-02 20:23] VITALS: BP 136/75; TEMP 97.2; O2SAT 95
[2024-04-02] MEDS: guaiFENesin ER TABLET 600 MG TAB PO SCH (20:34)
[2024-04-02] MEDS: DOXYCYCLINE HYCLATE 100MG TABLET PO SCH (20:35)
[2024-04-02] MEDS: DOCUSATE SODIUM 100MG CAPSULE PO PRN (20:35)
[2024-04-02] MEDS: GABAPENTIN 300 MG CAP PO SCH (20:35)
[2024-04-02] MEDS: HEPARIN SOD (PORCINE) 5000UNITS/ML 1ML VIAL/SYRINGE SQ SCH (20:35)
[2024-04-02] MEDS: POLYVINYL ALCOHOL OPHTH SOLN 15ML (LIQUITEARS) OU SCH (20:35)
[2024-04-02] MEDS ORDERED: LEVEMIR (INSULIN DETEMIR) 1 UNITS/0.01ML SC SCH (21:00)
[2024-04-02 21:44] LABS: CK-MB VALUE MASS 2.5 NG/ML (<3.6)
[2024-04-02 21:45] LABS: MB/CK RELATIVE INDEX 2.01 (< OR =4)
[2024-04-02] MEDS ORDERED: cefTRIAXone SOD 1 GM in DEXTROSE 5% (D5W) ADV/MINI-BAG 50 ML IV SCH (22:00)
[2024-04-02] MEDS: PIPERACILLIN/TAZOBACTAM SOD 3.375 GM in DEXTROSE 5% (D5W) ADV/MINI-BAG 50 ML IV SCH (23:44)
[2024-04-03 03:24] LABS: SODIUM,RANDOM URINE 88 MMOL/L
[2024-04-03 03:49] LABS: OSMOLALITY URINE 292 MOSM/KG (50-1400)
[2024-04-03 05:03] VITALS: BP 121/55; TEMP 99.2; O2SAT 93
[2024-04-03] MEDS ORDERED: HEPARIN SOD (PORCINE) 5000UNITS/ML 1ML VIAL/SYRINGE SC SCH (06:00)
[2024-04-03 06:05] LABS: HEMOGLOBIN 8.7 g/dl (12.0-15.5); MEAN CORPUSCULAR HEMOGLOBIN 26.4 pg (27.0-33.0); MEAN CORPUSCULAR HGB CONC 31.1 g/dl (32.0-36.5); MEAN CORPUSCULAR VOLUME 84.8 fl (80.0-96.0); PLATELET COUNT, AUTOMATED 261 10^3/uL (150-450); WHITE BLOOD COUNT 7.1 10^3/uL (4.0-10.0)
[2024-04-03 06:30] LABS: CK-MB VALUE MASS 1.2 NG/ML (<3.6)
[2024-04-03 06:31] LABS: ALBUMIN 2.4 G/DL (3.2-5.2); BILIRUBIN,TOTAL 0.8 MG/DL (0.3-1.2); CALCIUM LEVEL 8.5 MG/DL (8.3-10.6); CREATININE FOR GFR 1.21 MG/DL (0.55-1.30); GLOMERULAR FILTRATION RATE 46.1 (>39); POTASSIUM SERUM 3.8 MMOL/L (3.5-5.1); TOTAL PROTEIN 5.6 G/DL (5.7-8.2)
[2024-04-03 06:38] LABS: MB/CK RELATIVE INDEX 1.39 (< OR =4)
[2024-04-03] MEDS: MONTELUKAST 10 MG TAB PO SCH (08:26)
[2024-04-03] MEDS: ASPIRIN 81MG ENTERIC TABLET PO SCH (08:27)
[2024-04-03] MEDS: DULoxetine 30MG CAPSULE (CYMBALTA) PO SCH (08:27)
[2024-04-03] MEDS: METOPROLOL SUCC (TopROL XL) 50MG **XL** TAB PO SCH (08:28)
[2024-04-03] MEDS ORDERED: LOSARTAN 25 MG TAB PO SCH (09:00)
[2024-04-03 12:00] VITALS: BP 115/50; TEMP 97.5; O2SAT 96
[2024-04-03 12:48] LABS: THYROID STIMULATING HORMONE 1.826 uIU/ML (0.55-4.78)
[2024-04-03 20:00] VITALS: BP 114/52; TEMP 97.9; O2SAT 92
[2024-04-04 04:00] VITALS: BP 112/53; TEMP 98.1; O2SAT 96
[2024-04-04 05:30] LABS: HEMATOCRIT 26.4 % (36.0-47.0); HEMOGLOBIN 7.9 g/dl (12.0-15.5); MEAN CORPUSCULAR HEMOGLOBIN 25.9 pg (27.0-33.0); MEAN CORPUSCULAR HGB CONC 29.9 g/dl (32.0-36.5); MEAN CORPUSCULAR VOLUME 86.6 fl (80.0-96.0); PLATELET COUNT, AUTOMATED 236 10^3/uL (150-450); RED BLOOD COUNT 3.05 10^6/uL (4.00-5.40); WHITE BLOOD COUNT 6.1 10^3/uL (4.0-10.0)
[2024-04-04 06:04] LABS: ALBUMIN 2.1 G/DL (3.2-5.2); ALKALINE PHOSPHATASE 101 U/L (35-104); ALT/SGPT 88 U/L (7.0-40); AST/SGOT 53 U/L (<34); BILIRUBIN,TOTAL 0.5 MG/DL (0.3-1.2); BLOOD UREA NITROGEN 25 MG/DL (9-23); CALCIUM LEVEL 8.1 MG/DL (8.3-10.6); CARBON DIOXIDE LEVEL 24 MMOL/L (20-31); CHLORIDE LEVEL 98 MMOL/L (98-107); CREATININE FOR GFR 1.28 MG/DL (0.55-1.30); GLOMERULAR FILTRATION RATE 43.2 (>39); GLUCOSE, FASTING 121 MG/DL (74-106); POTASSIUM SERUM 3.6 MMOL/L (3.5-5.1); SODIUM LEVEL 131 MMOL/L (136-145); TOTAL PROTEIN 5.3 G/DL (5.7-8.2)
[2024-04-04 08:13] LABS: CK-MB VALUE MASS < 1.0 NG/ML (<3.6)
[2024-04-04 08:14] LABS: CPK CREATINE PHOSPHOKINASE 65 U/L (34-145); MB/CK RELATIVE INDEX 1.53 (< OR =4)
[2024-04-04 08:28] VITALS: BP 112/53; TEMP 97.7; O2SAT 95
[2024-04-04] MEDS: FUROSEMIDE 20MG/2ML VIAL IV SCH (09:08)
[2024-04-04] MEDS ORDERED: traMADol 50 MG TAB PO PRN (11:55)
[2024-04-04 12:00] VITALS: BP 127/63; TEMP 97.9; O2SAT 97
[2024-04-04] MEDS ORDERED: INSULIN LISPRO (NovoLOG) PER UNIT SC SCH (12:00)
[2024-04-04 12:57] LABS: IRON (FE) 16 UG/DL (50-170); PERCENT SATURATION 7.6 % (13.2-45.0); TOTAL IRON BINDING CAPACITY 210 UG/DL (250-425)
[2024-04-04 12:59] LABS: FERRITIN 267.2 NG/ML (7.3-270.7); FOLATE 6.45 NG/ML (>5.4); VITAMIN B12 LEVEL 718 PG/ML (211-911)
[2024-04-04] MEDS: INSULIN LISPRO (NovoLOG) PER UNIT SC SCH (13:12)
[2024-04-04] MEDS: GABAPENTIN 300 MG CAP PO SCH (17:39)
[2024-04-04] MEDS ORDERED: LevoFLOXacin 750 MG TABLET PO SCH (18:00)
[2024-04-04 20:00] VITALS: BP 117/56; TEMP 97.7; O2SAT 95
[2024-04-05 04:00] VITALS: BP 116/57; TEMP 97.2; O2SAT 92
[2024-04-05 06:54] LABS: HEMATOCRIT 25.9 % (36.0-47.0); MEAN CORPUSCULAR HEMOGLOBIN 26.7 pg (27.0-33.0); MEAN CORPUSCULAR HGB CONC 30.9 g/dl (32.0-36.5); MEAN CORPUSCULAR VOLUME 86.3 fl (80.0-96.0); PLATELET COUNT, AUTOMATED 219 10^3/uL (150-450); WHITE BLOOD COUNT 5.3 10^3/uL (4.0-10.0)
[2024-04-05 07:25] LABS: ALBUMIN 2.2 G/DL (3.2-5.2); BILIRUBIN,TOTAL 0.5 MG/DL (0.3-1.2); CALCIUM LEVEL 8.3 MG/DL (8.3-10.6); CK-MB VALUE MASS < 1.0 NG/ML (<3.6); CREATININE FOR GFR 1.16 MG/DL (0.55-1.30); GLOMERULAR FILTRATION RATE 48.4 (>39); POTASSIUM SERUM 3.6 MMOL/L (3.5-5.1); TOTAL PROTEIN 5.4 G/DL (5.7-8.2)
[2024-04-05 07:26] LABS: CPK CREATINE PHOSPHOKINASE 65 U/L (34-145); MB/CK RELATIVE INDEX 1.53 (< OR =4)
[2024-04-05] MEDS: ONDANSETRON 4MG 2ML VIAL IV PRN (10:01)
[2024-04-05 12:00] VITALS: BP 113/60; TEMP 97.7; O2SAT 95
[2024-04-05 20:40] VITALS: BP 111/60; TEMP 97.5; O2SAT 98
[2024-04-06 03:10] VITALS: BP 111/60; TEMP 97.5; O2SAT 97
[2024-04-06 06:18] LABS: HEMATOCRIT 27.2 % (36.0-47.0); HEMOGLOBIN 8.3 g/dl (12.0-15.5); MEAN CORPUSCULAR HEMOGLOBIN 26.6 pg (27.0-33.0); MEAN CORPUSCULAR HGB CONC 30.5 g/dl (32.0-36.5); MEAN CORPUSCULAR VOLUME 87.2 fl (80.0-96.0); PLATELET COUNT, AUTOMATED 230 10^3/uL (150-450); RED BLOOD COUNT 3.12 10^6/uL (4.00-5.40); WHITE BLOOD COUNT 5.7 10^3/uL (4.0-10.0)
[2024-04-06 06:48] LABS: ALBUMIN 2.2 G/DL (3.2-5.2); BILIRUBIN,TOTAL 0.4 MG/DL (0.3-1.2); CALCIUM LEVEL 8.6 MG/DL (8.3-10.6); CREATININE FOR GFR 1.27 MG/DL (0.55-1.30); GLOMERULAR FILTRATION RATE 43.6 (>39); POTASSIUM SERUM 3.6 MMOL/L (3.5-5.1); TOTAL PROTEIN 5.7 G/DL (5.7-8.2)
[2024-04-06 11:47] VITALS: BP 116/64; TEMP 97.2; O2SAT 98
[2024-04-06 20:10] VITALS: BP 116/67; TEMP 97.5; O2SAT 98
[2024-04-06] MEDS: INSULIN LISPRO (NovoLOG) PER UNIT SC SCH (21:00)
[2024-04-06] MEDS: PANTOPRAZOLE 40MG TAB (PROTONIX) PO SCH (21:58)
[2024-04-06] MEDS: DOCUSATE SODIUM 100MG CAPSULE PO SCH (21:58)
[2024-04-06] MEDS: SENNA 8.6 MG TAB (SENOKOT) PO SCH (21:59)
[2024-04-07 04:27] VITALS: BP 111/54; TEMP 97.2; O2SAT 97
[2024-04-07 05:49] LABS: HEMOGLOBIN 8.7 g/dl (12.0-15.5); MEAN CORPUSCULAR HEMOGLOBIN 26.2 pg (27.0-33.0); MEAN CORPUSCULAR VOLUME 87.3 fl (80.0-96.0); PLATELET COUNT, AUTOMATED 283 10^3/uL (150-450); RED BLOOD COUNT 3.32 10^6/uL (4.00-5.40)
[2024-04-07 06:28] LABS: ALBUMIN 2.3 G/DL (3.2-5.2); BILIRUBIN,TOTAL 0.9 MG/DL (0.3-1.2); CALCIUM LEVEL 8.9 MG/DL (8.3-10.6); CREATININE FOR GFR 1.76 MG/DL (0.55-1.30); GLOMERULAR FILTRATION RATE 29.9 (>39); POTASSIUM SERUM 4.9 MMOL/L (3.5-5.1); TOTAL PROTEIN 5.8 G/DL (5.7-8.2)
[2024-04-07 08:29] VITALS: BP 114/57
[2024-04-07] MEDS: INSULIN LISPRO (NovoLOG) PER UNIT SC SCH (08:30)
[2024-04-07 08:34] LABS: CK-MB VALUE MASS 4.6 NG/ML (<3.6)
[2024-04-07 08:50] LABS: HEPATITIS B SURFACE ANTIGEN NEGATIVE (NEGATIVE)
[2024-04-07 09:11] LABS: HEPATITIS B CORE ANTIBODY IGM NEGATIVE (NEGATIVE); HEPATITIS C VIRUS ABY INDEX 0.08 INDEX (<0.8)
[2024-04-07 09:34] LABS: ALBUMIN 2.2 G/DL (3.2-5.2); ALKALINE PHOSPHATASE 155 U/L (35-104); ALT/SGPT 932 U/L (7.0-40); AST/SGOT 2039 U/L (<34); BILIRUBIN,TOTAL 0.9 MG/DL (0.3-1.2); BLOOD UREA NITROGEN 44 MG/DL (9-23); CALCIUM LEVEL 8.7 MG/DL (8.3-10.6); CARBON DIOXIDE LEVEL 21 MMOL/L (20-31); CHLORIDE LEVEL 96 MMOL/L (98-107); CPK CREATINE PHOSPHOKINASE 132 U/L (34-145); CREATININE FOR GFR 1.77 MG/DL (0.55-1.30); GLOMERULAR FILTRATION RATE 29.7 (>39); GLUCOSE, FASTING 127 MG/DL (74-106); MB/CK RELATIVE INDEX 3.48 (< OR =4); POTASSIUM SERUM 4.9 MMOL/L (3.5-5.1); SODIUM LEVEL 129 MMOL/L (136-145); TOTAL PROTEIN 5.5 G/DL (5.7-8.2)
[2024-04-07] MEDS ORDERED: HEPARIN SOD (PORCINE) 5000UNITS/ML 1ML VIAL/SYRINGE IV PRN (10:50)
[2024-04-07] MEDS: HEPARIN SOD (PORCINE) 5000UNITS/ML 1ML VIAL/SYRINGE IV ONE (11:59)
[2024-04-07 12:00] VITALS: BP 115/57; TEMP 97.5; O2SAT 95
[2024-04-07] MEDS ORDERED: NS (Normal Saline) 0.9% 1,000 ML IV SCH (12:00)
[2024-04-07] MEDS: HEPARIN DRIP 25,000 UNITS in IV 1 EA IV SCH (12:56)
[2024-04-07 13:12] LABS: MB/CK RELATIVE INDEX 3.07 (< OR =4)
[2024-04-07 13:35] LABS: ALBUMIN 2.2 G/DL (3.2-5.2); BILIRUBIN,TOTAL 0.7 MG/DL (0.3-1.2); CALCIUM LEVEL 8.4 MG/DL (8.3-10.6); CREATININE FOR GFR 1.76 MG/DL (0.55-1.30); GLOMERULAR FILTRATION RATE 29.9 (>39); POTASSIUM SERUM 4.3 MMOL/L (3.5-5.1); TOTAL PROTEIN 5.5 G/DL (5.7-8.2)
[2024-04-07] MEDS ORDERED: ATROPINE SULFATE 1% OPHTH SOLN 2ML BTL SL PRN (14:20)
[2024-04-07] MEDS ORDERED: ONDANSETRON 4MG ORAL DISINTEGRATING TAB PO PRN (14:20)
[2024-04-07] MEDS ORDERED: MORPHINE 10MG/0.5ML ORAL CONCENTRATE SOLUTION U/D SL PRN (14:20)
[2024-04-07] MEDS: LORazepam 1 MG TAB PO PRN (23:28)
[2024-04-09] MEDS ORDERED: ATRO2DRO4 SL (08:03)
[2024-04-09] MEDS ORDERED: MORP10SO PO (08:03)
[2024-04-09] MEDS ORDERED: ATIV1TAB7 PO (08:03)
[2024-04-09] MEDS ORDERED: ONDA-282 PO (08:03)
[2024-04-09] MEDS ORDERED: HYOS125TA PO (08:03)
[2024-04-09] MEDS ORDERED: MORP10SO2 PO (08:58)
[2024-04-09] MEDS: HYOSCYAMINE SULFATE 0.125 MG SUBL TABLET PO PRN (09:55)
== END 2024-04-09 10:49 | disposition hospice, home (50) | DRG 314 ==
LOC: M ED 09:05 → EDBD 09:05 → M ED INP 15:57 → M MSPAV 18:17
PROVIDERS: ADMIT Internal Medicine; ATTEND Student in an Organized Health Care Education/Training Program
PROC: B246ZZZ Ultrasonography of Right and Left Heart (ICD-10-PCS; principal; 2024-04-08)
DX: I27.81 Cor pulmonale (chronic) (principal); J18.9 Pneumonia, unspecified organism; C34.32 Malignant neoplasm of lower lobe, left bronchus or lung; J90 Pleural effusion, not elsewhere classified; I50.42 Chronic combined systolic (congestive) and diastolic (congestive) heart failure; I13.0 Hypertensive heart and chronic kidney disease with heart failure and stage 1 through stage 4 chronic kidney disease, or unspecified chronic kidney disease; E87.1 Hypo-osmolality and hyponatremia; Z66 Do not resuscitate; I25.10 Atherosclerotic heart disease of native coronary artery without angina pectoris; E11.22 Type 2 diabetes mellitus with diabetic chronic kidney disease; N18.30 Chronic kidney disease, stage 3 unspecified; R74.01 Elevation of levels of liver transaminase levels; J43.9 Emphysema, unspecified; E11.649 Type 2 diabetes mellitus with hypoglycemia without coma; I48.91 Unspecified atrial fibrillation; I73.9 Peripheral vascular disease, unspecified; E11.51 Type 2 diabetes mellitus with diabetic peripheral angiopathy without gangrene; I25.2 Old myocardial infarction; E11.42 Type 2 diabetes mellitus with diabetic polyneuropathy; E63.8 Other specified nutritional deficiencies; E78.5 Hyperlipidemia, unspecified; K44.9 Diaphragmatic hernia without obstruction or gangrene; K21.9 Gastro-esophageal reflux disease without esophagitis; L97.529 Non-pressure chronic ulcer of other part of left foot with unspecified severity; E11.621 Type 2 diabetes mellitus with foot ulcer; I65.22 Occlusion and stenosis of left carotid artery; D63.8 Anemia in other chronic diseases classified elsewhere; R06.09 Other forms of dyspnea; I27.20 Pulmonary hypertension, unspecified; K22.89 Other specified disease of esophagus; K76.1 Chronic passive congestion of liver; F41.9 Anxiety disorder, unspecified; M54.9 Dorsalgia, unspecified; M81.0 Age-related osteoporosis without current pathological fracture; Z98.49 Cataract extraction status, unspecified eye; Z90.49 Acquired absence of other specified parts of digestive tract; Z89.422 Acquired absence of other left toe(s); Z87.891 Personal history of nicotine dependence; Z95.5 Presence of coronary angioplasty implant and graft; Z92.3 Personal history of irradiation; Z79.82 Long term (current) use of aspirin; Z79.4 Long term (current) use of insulin; Z79.899 Other long term (current) drug therapy